=== PATIENT | female | born 1965 | race Caucasian/White ===

== ENCOUNTER → 2017-06-19 12:01 | Outpatient (CLI) | payer OTHER, SELFPAY ==
[2017-06-19 12:05] LABS: Bacteria 0 SEEN /hpf (None Seen); Mucous, Urine 0 SEEN /hpf (<or=2+); White Blood Cells 0 SEEN /hpf (0-5)
[2017-06-19 16:02] LABS: Color, Urine Yellow (Yellow); Glucose, Dipstick Normal (Normal); Ketone-Dipstick Negative (Negative); Leukocyte Esterase-Dipstick Negative /ul (Negative); Nitrite-Dipstick Negative (Negative); Occult Blood-Urine 25 /ul (Negative); Protein-Dipstick Negative (Negative); Specific Gravity, Urine 1.005 (1.002-1.030); Urine Bilirubin Dipstick Negative (Negative); Urine Clarity Sl. Cloudy (Clear); Urine Urobilinogen Normal (Normal)
[2017-06-19 16:20] LABS: Red Blood Cells-Urine 0-5 SEEN /hpf (0-5); Squamous Epithelial Cells - UA 0-5 SEEN /hpf (5-10)
== END ==
PROVIDERS: Family Provider Family Medicine; PCP Family Medicine; Visit Provider Family Medicine
DX: N39.0 Urinary tract infection, site not specified (principal); R30.0 Dysuria
CPT/HCPCS: 81001; 87086

== ENCOUNTER → 2017-08-19 10:38 | Outpatient (CLI) | payer OTHER, SELFPAY ==
--- NOTE | 2017-08-19 10:38 | DT_ITS ---
This patient was seen during an EMR downtime August 17, 2017 - August 24, 2017. This patient may have a combination of paper and electronic documentation or all paper documentation. All documentation is viewable within the e-chart portion of [facility] for each patient visit.
--- NOTE | 2017-08-19 10:38 | DT_ITS ---
This patient was seen during an EMR downtime August 17, 2017 - August 24, 2017. This patient may have a combination of paper and electronic documentation or all paper documentation. All documentation is viewable within the e-chart portion of [facility] for each patient visit.
== END ==
PROVIDERS: Family Provider Family Medicine; PCP Family Medicine; Visit Provider Family Medicine
DX: N39.0 Urinary tract infection, site not specified (principal)
CPT/HCPCS: 87077; 87086; 87088; 87186

== ENCOUNTER → 2017-09-24 12:18 | Outpatient (CLI) | payer OTHER, SELFPAY ==
--- NOTE | 2017-09-24 12:21 | MRI_ITS ---
STUDY: BILATERAL BREAST MR WITHOUT AND WITH CONTRAST REASON FOR EXAM: Female, 52 years old. New diagnosis of lobular breast cancer on the left. TECHNIQUE: Multi-sequence multi-echo imaging of both breasts was performed with a dedicated breast coil. T1-weighted and T2-weighted images were performed before the administration of contrast. T1-weighted images were also performed after the administration of 4.5 mL of Gadavist contrast intravenously without complications. COMPARISON: Left breast ultrasound dated September 08, 2017 and diagnostic mammogram dated September 08, 2017. FINDINGS: RIGHT BREAST: The breast tissue is markedly dense with minimal background enhancement. There are no abnormal enhancing masses or areas of non-mass enhancement in the right breast. LEFT BREAST: The breast tissue is markedly dense with minimal background enhancement. There are postbiopsy changes in the left axilla with a seroma cavity measuring approximately 13 mm in widest diameter. There is metallic artifact from a tissue clip marker in the left axilla (sagittal series 7 images 1-6). There are no abnormal enhancing masses or areas of non-mass enhancement in the left breast. There are no enlarged or abnormal lymph nodes. There is no abnormality in the visualized regions of the chest or liver. MRI/Breast w/o and/or W Cont Bilat IMPRESSION: Postbiopsy changes in the left axilla. No other significant abnormality identified. CATEGORY: BIRADS Category 6: Known Biopsy-Proven Malignancy - Appropriate Action Should Be Taken. A letter regarding these results will be sent to the patient by the facility within 30 days. Electronically Signed: Reece Piña MD at 15:16 EDT , Service support ,
== END ==
PROVIDERS: Family Provider Family Medicine; PCP Family Medicine; Visit Provider Surgery
DX: C50.412 Malignant neoplasm of upper-outer quadrant of left female breast (principal)
CPT/HCPCS: 77059; A9585; A4216; C8908

== ENCOUNTER 2017-10-06 11:00 | Outpatient (RCR) | payer OTHER, SELFPAY ==
--- NOTE | 2017-02-24 12:11 | HP.PTEVAL_ITS ---
Patient's Visit Information CASPER CHRISTENSEN is a 51 year old F referred to Physical Therapy by Sin Raygoza with a diagnosis of MS, ataxia, muscle weakness. Date of Evaluation: 02/24/17 Physical Therapist: Elis Churchill - Visit Plan Frequency: 1x/Week Duration: 6 Months Plan: 1X/ every 2 weeks to work on postural and trunk strength, stretching of the LE's, transfers, gait with HEP - Subjective Subjective: Pt started with a new MS Dr, Dr Sin Raygoza. He wants her to work on strengthening and stretching and gait. She is now receiveing Ocrebus every 6 months and next one is July 10, 2017. The Dr wants her to start Ampyra (it increases peoples walking speeds) and he is hopeful that it will help to strengthenin her hand and core. Her 60 day trial will be delivered this week sometime. She does not walk at home. She is I with all her transfers even when tired. She has hand controls and a lift for her van. She has for her stairs at home. No falls recently. She feels that PT has helped her with her flexability and reduction of spasms in the past and core strength. Sleeps in a normal bed. Pt reports that she is tight in her muscles all the time and makes her feel harder to transfer especially in the morning. - Objective Gait: Walker on height #5. 32 feet with Rolling walker with CGA with outting all oressure through UE's and not even step length with knees bent and took pt 2 :08.25 to stand up to walker, walk 16 feet turn with walker and walk 16 feet back, turn to sit. Unable to raises LE's against gravity. Able to sit with feet supported raising arms overhead X 10 with no true LOB but with some instability with trunk during the motion. Able to sit with feet supported with arms outstretched and clasped together horixontal arms side to side X 8 to each side before had to catch self with hand for balance. Poor trunk extension in sitting with reaching fw with trunk in WC and extending back to upright position X 10 with therapist min A. Transfer from wc to mat table with hands on low mat table in front of her and one hand on WC handle with SBA incase legs give out. Tight HS and gastroc B with her L side being tighter. Pt struggles with rolling in general but especilly to the L. Sitting with feet unsupported and raiseing arms X 10 OH with increase instability and no LOB in havign to use her hand for support with CGA. No dizziness with pursuit, saccades, or VOR X 1 X 30 sec each. Possible problem with convergence. bridges... not able to rise buttocks much at all off the mat if any - Goals Goal 1:: Be able to stand up walk 32 feet ([address]) with a rolling walker in 2 min using a rolling walker with CGA Goal Time Frame: 8-12 Weeks Goal 2:: Be able to complete 2X 10 sitting with arms OH in supported position with feet and unsupoorted spine and 3 X 10 rotation without LOB with CGA Goal Time Frame: 4-6 Weeks Goal 3:: Increase transfers from chair to mat table with increase ease and increased ability to raise buttock up from the chair to the mat Goal Time Frame: 8-12 Weeks Goal 4:: Complaint of stiffness to decrease by 50% subjective - Rehabilitation Potential Rehabilitation Potential: Good - Anticipated Interventions Patient/Client Instruction: Educate patient on: Plan of Care For the Purpose of:: To improve nutrient delivery to tissue, To improve muscle performance and motor function, To improve ability to perform ADL's, To increase tolerance to activity/condition/position, To improve performance and independence with ADL's, To improve ability of physical actions for home/ community/work/leisure, To improve gait and locomotor functions, To improve health of tissue, To decrease soft tissue restriction, To increase flexibility/ ROM, To improve balance, To improve safety with gait Therapeutic Exercise to Include: Strength training, Balance training, Postural training, Flexibilty training, Gait and locomotor training, Neuromotor development, Passive ROM, Dynamic Lumbar Stabilization For the Purpose of:: To improve nutrient delivery to tissue, To improve muscle performance and motor function, To improve ability to perform ADL's, To increase tolerance to activity/condition/position, To improve performance and independence with ADL's, To decrease level of supervision to perform tasks, To improve ability of physical actions for home/community/work/leisure, To improve gait and locomotor functions, To increase flexibility/ROM, To improve balance, To improve safety with gait, To improve safety Manual Therapy Techniques to Include: Passive ROM For the Purpose of:: To improve nutrient delivery to tissue, To improve health of tissue, To decrease soft tissue restriction, To increase flexibility/ROM Thank you for the opportunity to evaluate your patient. For Medicare and Medicare HMO plans, please review the plan of care and approve it. It will need to be FAXED BACK to us at [phone] for Medicare purposes. Please let me know if there are questions or concerns regarding this plan of care. Physician Signature: Date:
--- NOTE | 2017-10-20 11:14 | HP.PTDCSUM ---
HP - PT D/C Summary It has been my pleasure to treat CASPER CHRISTENSEN under orders from Sin Raygoza, for the diagnosis of MS, ataxia, muscle weakness for a total of 17 visit(s). Discharge Date: 10/06/17 Please see the following information for a summary of their discharge status. - Subjective Subjective: Pt should have her masectomy by the end of the week. - Objective Objective/Function: Pt is much weaker today and needed min A to help on and off the mat table. - Goals Goal 1:: Be able to stand up walk 45 feet ([address]) with a rolling walker in 2 min using a rolling walker with CGA Goal Progress: Progressing Goal 2:: Be able to complete 2X 10 sitting with arms OH in supported position with feet and unsupoorted spine and 3 X 10 rotation without LOB with CGA Goal Progress: Goal Met Goal 3:: Increase transfers from chair to mat table with increase ease and increased ability to raise buttock up from the chair to the mat Goal 4:: Complaint of stiffness to decrease by 50% subjective - Plan Plan: DC PT at this time. Pt will get a new order whens he is released to come back to PT - D/C Information Discharge Comments: DC PT If there are questions or concerns regarding this patient's physical therapy, please feel free to call me at [phone]. Thank you for the referral of this patient. Sincerely, Elis Churchill
== END 2017-10-06 19:00 | disposition home or self-care (01) ==
LOC: PT 11:00
PROVIDERS: Family Provider Family Medicine; PCP Family Medicine; Visit Provider Internal Medicine
DX: G35 Multiple sclerosis (principal); R27.0 Ataxia, unspecified; M62.81 Muscle weakness (generalized)
CPT/HCPCS: 97110; 97140; 97162; 97530

== ENCOUNTER 2017-10-12 15:47 | Observation (INO) | payer OTHER, SELFPAY ==
[2017-10-12] VITALS (10 sets, daily range): BP systolic 108–133; BP diastolic 48–80; PULSE 64–84; RESP 14–18; TEMP 36.2–37.2; O2SAT 97–100; BMI 13.9
--- NOTE | 2017-10-12 | AXNB_PTH ---
PATIENT: CASPER CHRISTENSEN LOC: MS3 U#:[id number] AGE/SX: 52/F ROOM: DC325 RE10/12/[address]: Dr. Brandon Hoang MD : 1965 BED: 1 DIS: 10/13/2017 SPEC #: [id number] RECD: 10/12/17 14:09 STATUS: MALA REJamia #: [id number] ANEL: 10/12/17 00:[address]: Brandon Hoang DEPT: SURGICAL PATHOLOGY RECD BY: Rashida Serrano ENTERED: 10/12/17 14:43 SP TYPE: AX NODE BX OTHR DR: Dr. Mario Soliz, DO Tissues: A - Axillary lymph node, NOS B - Left breast, NOS C - Axillary lymph node, NOS Procedures: Frozen Section (charge) Surgery Specimen Level IV Surgery Specimen Level Frozen (no charge) HEADER OPERATION: Left breast mastectomy with sentinel lymph node biopsy PRE-OP DIAGNOSIS: Invasive lobular carcinoma, left breast TISSUE SUBMITTED: A ? Left axillary sentinel lymph node tissue for FS at 1405, B ? Left breast mastectomy tissue, long suture ? lateral, short suture ? superior to lab fresh at 1424, C ? Additional left axillary lymph node tissue FROZEN SECTION DIAGNOSIS A. Left axillary sentinel lymph node tissue, biopsy: One lymph node, positive for metastatic carcinoma. SJ:lior 10/12/17 MICROSCOPIC DIAGNOSIS A. Left axillary sentinel lymph node tissue, biopsy: One lymph node, positive for metastatic carcinoma. See comment. B. Left breast mastectomy: Invasive lobular carcinoma. Lobular carcinoma in situ. Changes consistent with previous biopsy site. Atypical lobular hyperplasia. See cancer summary below. C. Additional left axillary lymph node tissue, biopsy: One lymph node, positive for metastatic carcinoma. See comment. INVASIVE BREAST CANCER SUMMARY: (Including specimen A, B & C) Specimen ? total breast (including nipple and skin). Procedure ? total mastectomy (including nipple and skin). Lymph node sampling ? sentinel lymph node and additional axillary lymph node Specimen integrity ? single intact specimen Specimen laterality - left Tumor site ? outer quadrant Tumor size ? site of largest invasive carcinoma: 1 x 1 x 1 cm Tumor focality ? multiple foci of invasive carcinoma Number of foci ? 3 Size of individual foci ? 1 x 1 x 1 cm (the largest focus) - 0.7 x 0.5 cm - 0.3 x 0.3 cm. See comment. Macroscopic and Microscopic extent of tumor: Skin ? invasive carcinoma does not invade into the dermis or epidermis. Nipple ? ductal carcinoma in situ does not involve nipple epidermis (Paget disease of the nipple). Skeletal muscle ? skeletal muscle is present and is free of carcinoma. Ductal carcinoma in situ (DCIS) ? not present Lobular carcinoma in situ (LCIS) - present Histologic type of invasive carcinoma ? invasive lobular carcinoma Histologic Grade (Bally grade): Glandular/tubular differentiation - score 3 Nuclear pleomorphism - score 2 Mitotic count ? score 1 Overall grade - 2 (score of 6) Margins - Margins uninvolved by invasive carcinoma. The largest focus of tumor is 0.5 cm away from the closest posterior margin. The second smaller focus is 0.5 cm away from the closest inferior margin. Treatment effect: Response to presurgical (neoadjuvant) therapy - no known presurgical therapy. Lymph-Vascular invasion ? not identified Dermal lymph-vascular invasion - not identified Lymph nodes: Number of sentinel lymph nodes examined - 1 Total number of lymph nodes examined (sentinel and nonsentinel) - 2 Number of lymph nodes with macrometastases - 2 Number of lymph nodes with micrometastases and isolated tumor cells - 0 Extranodal extension - not identified Method of evaluation of sentinel lymph nodes - H & E, multiple levels and IHC. Distance metastasis ? not applicable Additional pathologic findings ? fibrocystic changes, adenosis and intraductal hyperplasia without atypia. - Focal atypical lobular hyperplasia. - changes cosistent with previous biopsy site. Ancillary studies - previously performed on section of tumor at [facility] ([id number]). ER ? positive (>95%, strong) VA - positive (99%, strong) Her2 samra ? 1+ (negative) Microcalcifications ? present in non-neoplastic tissue. Clinical history - Please make reference to previous specimen from [facility] ([id number]) left breast, needle core biopsy with diagnosis of invasive lobular carcinoma, nuclear grade 2. PATHOLOGIC STAGE: pT1b(m) pN1a Mx The above summary is in compliance with [employer] (CAP) Cancer Protocols Checklist and [place] Joint Committee on Cancer (AJCC), Staging Manual, 8th Ed. SJ:lior 10/15/17 COMMENT A. The metastatic focus measures 0.5 x 0.5 cm (measured microscopically). Extranodal extension is not seen. B. Extensive fibrosis, chronic inflammation and foreign body giant cell reaction is noted adjacent to the tumor. Immunohistochemistry ([id number]) supports the diagnosis of adenosis in block 7, focus of invasive lobular carcinoma in block 10 and negative fo rmalignancy in block 12. C. The metastatic focus measures 0.4 x 0.4 cm (measured microscopically). Extranodal extension is not seen. MICROSCOPIC DESCRIPTION Slides are reviewed. GROSS DESCRIPTION A - Received fresh for frozen section diagnosis labeled with the patient's name is a specimen designated left axillary sentinel lymph node tissue. The specimen consists of a piece of adipose tissue containing a nodule consistent with lymph node measuring 1.5 x 1 x 0.5 cm. The lymph node is submitted in entirety for frozen section diagnosis. The entire specimen is submitted in two cassettes as follows: 1 ? one lymph node, frozen section, 2 ? rest of the specimen. / SJ:lior 10/12/17 B - Received fresh labeled with the patient's name and designated left breast mastectomy tissue. The specimen consists of a mastectomy specimen consisting of breast tissue with overlying skin ellipse. The breast tissue measures 15 x 8 x 3 cm and the overlying skin ellipse measures 14 x 2.5 cm. The nipple measures 1 cm in greatest dimension. The specimen is oriented as follows, long suture ? lateral, short suture ? superior. The specimen is inked as follows: superior margin ? blue, inferior margin ? green, medial margin ? red, lateral margin ? orange, posterior margin ? black over blue. A focal area of skeletal muscle is noted at the lateral area of the posterior margin of the breast tissue. Focal blue dye discoloration is also noted towards the inferior margin of the breast tissue. More dictation will follow after overnight fixation. / GILMER:lior 10/12/17 Sections reveal an indurated mass in the outer quadrant measuring 1 x 1 x 1 cm. A cystic lesion is also noted adjacent to it measuring 0.7 cm in greatest dimension. The tumor mass is 0.5 cm away from the closest posterior margin. The cystic mass is very close to inferior margin of the specimen. Sections of the rest of the specimen reveal casiano-yellow adipose cut surfaces mixed with casiano-white fibrous area. Technology Adoption Manager sections are submitted in 12 cassettes as follows: 1 ? nipple, entirely submitted, 2?? tumor with closest posterior margin and overlying skin, 3-5 ? rest of the tumor, entirely submitted, 6??cystic lesion with closest inferior margin, entirely submitted, 7 & 8 - employment program representative sections adjacent to the tumor, 9-11 - employment program representative sections away from the tumor, 12 ? perpendicular medial, lateral and superior margins. Sections will be submitted after additional fixation. / GILMER:lior 10/13/17 C - Received in fixative is one container labeled with the patient's name and designated additional left axillary lymph node tissue. The specimen consists of a piece of adipose tissue containing one nodule consistent with lymph node measuring 1 x 0.5 x 0.3 cm. The entire specimen is submitted in one cassette. / GILMER:lior 10/13/17 TC:0 CPT: 03028 x2, 43652, 23674
--- NOTE | 2017-10-12 | IMM_PTH ---
PATIENT: CASPER CHRISTENSEN LOC: MS3 U#:[id number] AGE/SX: 52/F ROOM: MN325 RE10/12/[address]: Dr. Brandon Hoang MD : 1965 BED: 1 DIS: 10/13/2017 SPEC #: [id number] RECD: 10/15/17 12:25 STATUS: MALA REQ #: [id number] ANEL: 10/12/17 00:[address]: Brandon Hoang DEPT: IMMUNOHISTOCHEMISTRY RECD BY: Rashida Serrano ENTERED: 10/15/17 12:26 SP TYPE: IMMUNO OTHR DR: Dr. Mario Soliz, DO Tissues: B - Left breast, NOS Procedures: E-CAD (initial) CALPONIN-1 (add) CK8 (add) E-CAD (add) P40 (add) PHYSICIAN & INSTITUTION [place] [id number] SPECIMEN INFORMATION: Tissue Source: B ? Left breast mastectomy tissue Clinical Info: Invasive lobular carcinoma, left breast Specimen Number: [id number] B7, B10, B12 CPT code: 35917, 60809 x11 METHODOLOGY: Deparaffinized sections of prefer/formalin-fixed tissue or PAP/DQ stained slides are incubated with monoclonal/polyclonal antibodies/oligonucleotide probes. Localization is made via biotin free immunoperoxidase method. Appropriate controls are performed and reacted as expected. Results on target cell population are indicated in the following table: RESULTS: ANTIBODY / CLONE RESULT Block B7 E-Cad (ECH-6) positive CK8 ([id number]) positive P40 (BC28) positive Calponin-1 (HJ246C) positive Block B10 E-Cad (ECH-6) negative CK8 (73qeddP75) positive P40 (BC28) negative Calponin-1 (RS187B) negative Block 12 E-Cad (ECH-6) negative CK8 (26otntA53) negative P40 (BC28) negative Calponin-1 (NB619J) negative These tests were developed and their performance characteristics determined by [facility]. They may not have been cleared or approved by the U.S. Food and Drug Administration. The FDA has determined that such clearance or approval is not necessary. INTERPRETATION: B. Left breast tissue, mastectomy: Invasive lobular carcinoma (block B10). Consistent with adenosis (block B7). Negative for malignancy (block B12). SJ:lior 10/16/17
--- NOTE | 2017-10-12 10:44 | EKG12_ITS ---
Test Reason : PRE-OP Blood Pressure : / mmHG Vent. Rate : 062 BPM Atrial Rate : 062 BPM P-R Int : 136 ms QRS Dur : 078 ms QT Int : 410 ms P-R-T Axes : 057 085 034 degrees QTc Int : 416 ms Normal sinus rhythm Normal ECG Confirmed by STORM MARRERO, GIORGIO ([id number]), editorial manager MIMI DEL ANGEL ([id number]) on 10/16/2017 8:35:40 AM Referred By: Brandon Hoang Confirmed By:GIORGIO INMAN MD
--- NOTE | 2017-10-12 10:51 | NM_ITS ---
PROCEDURE: NUCLEAR MEDICINE Injection Vinton Node - LEFT breast(s). REASON FOR EXAM: Female, 52 years old. Left breast cancer. TECHNIQUE: Vinton node localization using radionuclide methods of the LEFT breast(s) was performed following subcutaneous administration of 1.0 mCi of of sulfur colloid Tc-99m. FINDINGS: 1 mCi of the technetium sulfur colloid was injected in 4 equal aliquots in the periareolar region. NM/Lymph Node Injection Only IMPRESSION: Subjacent injection of 1 mCi of technetium sulfur colloid for sentinel node imaging. Electronically Signed: Dinesh Marie MD at 12:33 EDT Tel [phone], Service support ,
[2017-10-12 11:05] LABS: Hematocrit 42.9 % (37-47); Hemoglobin 14.5 g/dl (12.0-15.0); Mean Corp Hgb Conc 33.8 g/gl (32-36); Mean Corpuscular Hgb 33.6 pg (27.0-32.0); Mean Corpuscular Volume 99.5 fL (81-99); Mean Platelet Vol. 12.9 fl (6.2-12.0); Platelet Count 164 K/mm3 (150-450); RBC Distribution Width CV 12.6 % (11.6-14.6); RBC Distribution Width SD 45.1 fl (35.1-43.9); Red Blood Count 4.31 M/mm3 (4.2-5.4); White Blood Count 3.9 K/mm3 (4.4-11.0)
[2017-10-12 11:09] LABS: Scan Indicated on CBC? Y/N NO
[2017-10-12 11:15] LABS: Anion Gap 3 (5-15); BUN 11 mg/dL (7-18); BUN/Creat Ratio 20.1 RATIO (10-20); Calcium,Total 9.6 mg/dL (8.5-10.1); Chloride 105 mmol/L (98-107); Creatinine, Serum 0.55 mg/dL (0.55-1.02); EST Glomerular Filtration Rate 124 mL/min (>60); Est Glom Filt Rate - Afr Amer 150 mL/min (>60); Glucose 88 mg/dL (74-106); Potassium 3.8 mmol/L (3.5-5.1); Sodium Level 137 mmol/L (136-145)
[2017-10-12] MEDS: Cefazolin 2 GM in 0.9% Normal Saline 100 ML IV (13:15)
[2017-10-12] MEDS: Methylene Blue 1% 100 MG/10 ML VIAL (13:18)
--- NOTE | 2017-10-12 15:56 | OP.PCM_ITS ---
Problem List (1) Breast cancer, left Status: Acute Qualifiers: Breast location: upper outer quadrant of breast Estrogen receptor status: positive Patient sex: female Qualified Code(s): C50.412 - Malignant neoplasm of upper-outer quadrant of left female breast; Z17.0 - Estrogen receptor positive status [ER+] Report of Operation Date of Procedure: 10/12/17 Pre-Operative Diagnosis: Invasive lobular carcinoma of the left breast upper outer quadrant Post-Operative Diagnosis: Same Surgery/Procedure Performed:: 1. Left simple mastectomy. 2. Left sentinel lymph node biopsy with neoprobe localization and blue dye Specimen's removed: 1. Left breast. 2. [place] lymph node. 3. Additional lymph node Drains: SURJIT to bulb suction Estimated Blood Loss (mL): 50 cc Description of Procedure: The patient was brought back to the operating room and general anesthesia was induced. 4 cc of 1% methylene blue were injected underneath the nipple and around the tumor. This was massaged for 5 minutes. The left breast and axilla were prepped and draped in usual sterile fashion. Incisions were marked above and below the nipple in an elliptical fashion. Next incision was made over the proposed incision sites. Hemostasis was again obtained with electrocautery. The lateral portion of the incision was retracted and flaps were made in the axilla was entered. A blue node was encountered and this was dissected free and clipped from its hilum and sent for pathology. A 10 second count revealed that this was radioactive and the bed count was normal. There were no palpable or blue nodes left in the axilla. Next a superior flap was made between the subcutaneous tissue in the breast until the superior aspect of the breast was reached and this was brought to the pectoral fascia. In a similar fashion and inferior flap was created. Next the pectoral fascia was grasped with a [place] in the medial aspect and this was retracted laterally. The pectoral fascia was dissected off of the pectoral muscle and remainder the specimen. Once I reached the lateral aspect where the tumor was located I grasped the tumor and retracted it. I removed the breast along with the underlying muscle in the area where the tumor was located. This was marked with orienting sutures and sent for pathology. At this time the sentinel lymph node came back positive for carcinoma. I discussed the case with the radiation oncologist and due to the posterior margins and the fact the skeletal muscle was found on initial pathology it is recommended that she undergo radiation. Since the tumor was small and she was going to have radiation I elected not to proceed with axillary dissection due to the risk of lymphedema and the fact that she is arm dependent for mobility. The axilla and breast were irrigated and hemostasis was obtained. A 15 [place]an round SURJIT was placed into the breast cavity and brought out through a skin incision in the lower lateral aspect of the left breast. The drain was sutured in place with a 2-0 nylon suture. Next the incision was closed with interrupted 3-0 Vicryl sutures as well as a running 4-0 Monocryl suture. Steri- Strips were applied as was a bandage. The patient tolerated the procedure well. She was brought to PACU in stable condition. - Admit VTE Documentation VTE Mechan Device Prophylaxis: SCD's
[2017-10-12] MEDS: 0.9% Normal Saline 1,000 ML 75 ML IV (17:27)
[2017-10-12] MEDS: Ondansetron 4 MG/2 ML Vial IV (17:49)
[2017-10-12] MEDS: proMETHazine 25 MG/ML Syringe 12.5 MG IV (19:03)
[2017-10-12] MEDS: 0.9% NaCl Peripheral Flush Adult/Peds IV (19:25)
[2017-10-12] MEDS: Baclofen 10 MG Tablet PO (21:27)
[2017-10-12] MEDS: Ibuprofen 600 MG Tablet PO (21:59)
[2017-10-13 02:47] VITALS: BP 109/64; PULSE 68; RESP 16; TEMP 36.5; O2SAT 100
[2017-10-13] MEDS: Baclofen 10 MG Tablet PO ×3 (02:51→10:31)
[2017-10-13] MEDS: Ibuprofen 600 MG Tablet PO (06:21)
[2017-10-13] MEDS: 0.9% Normal Saline 1,000 ML 75 ML IV (06:21)
[2017-10-13 08:47] VITALS: BP 115/70; PULSE 65; RESP 16; TEMP 37.1; O2SAT 100
--- NOTE | 2017-10-13 09:23 | PCM.DC.BS ---
Discharge Diet: No Restrictions Discharge Activity: May Not Drive - for 2-3 days or while taking narcotic pain meds. May shower in (days): 1 Lifting Restrictions: 10 pounds for 1 week. Call your doctor if your incision/area has: Continuous Slow Oozing, Sudden Increased Bleeding, Increased Pain/ Swelling, Increased Redness, Foul Smelling Discharge, Swelling at the incision site Call your doctor if you observe: Fever of 101 or Higher Suture Line Care: Avoid Pulling/Pushing, Avoid Pinching/Bending Remove Dressing in (days):: 1 - Remove bulky dressing tomorrow. May leave any opsite dressing for 3-4 days[address] Keep dressing in place until your follow-up appointment. Additional Dressing/Incision Instructions:: Remove bulky dressing tomorrow. Leave steri strips in place. Record SURJIT drain amount daily. Allergies/Adverse Reactions: Allergies sulfamethoxazole [From Bactrim] Allergy (Severe, Verified 10/09/17 14:49) Nausea trimethoprim [From Bactrim] Allergy (Severe, Verified 10/09/17 14:49) Nausea ciprofloxacin Allergy (Mild, Verified 10/09/17 14:49) unknown Medications to take at Discharge baclofen 10 mg tablet 10 mg PO Q4H 02/28/17 levonorgestrel 20 mcg/24 hr (5 years) intrauterine device 1 insert INTRAUTERINE ONCE 10/05/17 Biotin 100 mg PO TID 10/09/17 Cholecalciferol (Vitamin D3) [Vitamin D3] 10,000 unit PO DAILY 10/09/17 Flavoring Agent [Cinnamon] 15 ml PO DAILY 10/09/17 Robyn Root 1 gm PO DAILY 10/09/17 Turmeric [Turmeric Root] 25 gm PO DAILY 10/09/17 Acetaminophen [Tylenol Tablet] 650 mg PO Q6H PRN PRN tablet 10/13/17 Primary Care Physician: Mario Soliz DO [Primary Care Provider] - Please Follow Up With: Brandon Hoang MD When: Please call to schedule 1 week follow up appointment. [phone]
--- NOTE | 2017-10-13 09:25 | PCM.DC.SUM ---
Discharge Date and Diagnosis Date of Admission: 11/12/17 Date of Discharge: 10/13/17 - Secondary Discharge Diagnosis Chronic Problems (Last Reviewed 10/05/17 @ 15:17 by Helen Flores) Multiple sclerosis (Chronic) Hospital Course and Treatment Imaging Results: Clinical Impression(s) from Imaging Studies [place] Node 10/12/17 10:51 IMPRESSION: Subjacent injection of 1 mCi of technetium sulfur colloid for sentinel node imaging. Electronically Signed: Dinesh Marie MD at 12:33 EDT Tel [phone], Service support , Operations: - - Left mastectomy with sentinel lymph node biopsy Procedures: None Summary of Care Provided: The patient is a 52 year old F with left breast invasive lobular carcinoma. She presented for elective left mastectomy with sentinel lymph node biopsy. She was admitted postoperatively to the floor for observation. The following morning her drain was draining well and her incision was clean dry and intact. She was tolerating a diet and was discharged home in stable condition. She will follow-up with me in 1 week for drain removal. Discharge Diet: No Restrictions Discharge Activity: May Not Drive - for 2-3 days or while taking narcotic pain meds. May shower in (days): 1 Call your doctor if your incision/area has: Continuous Slow Oozing, Sudden Increased Bleeding, Increased Pain/ Swelling, Increased Redness, Foul Smelling Discharge, Swelling at the incision site Call your doctor if you observe: Fever of 101 or Higher Suture Line Care: Avoid Pulling/Pushing, Avoid Pinching/Bending Remove Dressing in (days):: 1 - Remove bulky dressing tomorrow. May leave any opsite dressing for 3-4 days. Keep dressing in place until your follow-up appointment. Additional Dressing/Incision Instructions:: Remove bulky dressing tomorrow. Leave steri strips in place. Record SURJIT drain amount daily. Home Medications: Medications to take at Discharge baclofen 10 mg tablet 10 mg PO Q4H 02/28/17 levonorgestrel 20 mcg/24 hr (5 years) intrauterine device 1 insert INTRAUTERINE ONCE 10/05/17 Biotin 100 mg PO TID 10/09/17 Cholecalciferol (Vitamin D3) [Vitamin D3] 10,000 unit PO DAILY 10/09/17 Flavoring Agent [Cinnamon] 15 ml PO DAILY 10/09/17 Robyn Root 1 gm PO DAILY 10/09/17 Turmeric [Turmeric Root] 25 gm PO DAILY 10/09/17 Acetaminophen [Tylenol Tablet] 650 mg PO Q6H PRN PRN tablet 10/13/17 Primary Care Physician: Mario Soliz DO [Primary Care Provider] - Please Follow Up With: Brandon Hoang MD When: Please call to schedule 1 week follow up appointment. [phone] Medical Necessity - Tobacco Use Smoking Status: Former smoker Tobacco Use: Non-smoker Meaningful Use Info Meaningful Use Diagnoses (Choose all that apply): None applicable
== END 2017-10-13 10:56 | disposition home or self-care (01) ==
LOC: SDC 16:03
PROVIDERS: Anesthesiology; Admitting Provider Surgery; Family Provider Family Medicine; PCP Family Medicine; Visit Provider Surgery
PROC: (CPT 19307; principal; 2017-10-12 12:45)
DX: C50.412 Malignant neoplasm of upper-outer quadrant of left female breast (principal); G35 Multiple sclerosis; Z87.891 Personal history of nicotine dependence; Z79.899 Other long term (current) drug therapy; G25.81 Restless legs syndrome; Z17.0 Estrogen receptor positive status [ER+]; C77.3 Secondary and unspecified malignant neoplasm of axilla and upper limb lymph nodes
CPT/HCPCS: 19303; 38525; 36415; 38792; 80048; 85027; 88305; 88309; 88331; 88341; 88342; 93005; 96361; 96374; 96375; 97802; 99218; A9541; J7030; J7120; A4216; G0378; G0379; J2405; Q9968

== ENCOUNTER → 2017-10-23 15:48 | Outpatient (CLI) | payer OTHER, SELFPAY ==
[2017-10-23 15:51] LABS: Mucous, Urine 0 SEEN /hpf (<or=2+)
[2017-10-23 16:42] LABS: Color, Urine STRAW (Yellow); Glucose, Dipstick NEGATIVE (Normal); Ketone-Dipstick Negative (Negative); Urine Bilirubin Dipstick Negative (Negative); Urine Clarity Cloudy (Clear)
[2017-10-23 16:43] LABS: Leukocyte Esterase-Dipstick 500 /ul (Negative); Nitrite-Dipstick Negative (Negative); Occult Blood-Urine 150 /ul (Negative); Protein-Dipstick 15 mg/dl (Negative); Urine Urobilinogen Normal (Normal)
[2017-10-23 16:45] LABS: Red Blood Cells-Urine > 100 SEEN /hpf (0-5); Squamous Epithelial Cells - UA 0-5 SEEN /hpf (5-10); White Blood Cells >100 SEEN /hpf (0-5)
[2017-10-23 16:46] LABS: Amorphous Sediment 3+; Bacteria 4+ /hpf (None Seen)
== END ==
PROVIDERS: Family Provider Family Medicine; PCP Family Medicine; Visit Provider Physician Assistant Surgical
DX: R30.0 Dysuria (principal)
CPT/HCPCS: 81001; 87077; 87086; 87088; 87186

== ENCOUNTER → 2017-11-17 10:47 | Outpatient (CLI) | payer OTHER, SELFPAY ==
[2017-10-29 14:03] VITALS: BMI 14.7
== END ==
PROVIDERS: Family Provider Family Medicine; PCP Family Medicine; Visit Provider Student in an Organized Health Care Education/Training Program
DX: C50.919 Malignant neoplasm of unspecified site of unspecified female breast (principal)
CPT/HCPCS: 71260; Q9967

== ENCOUNTER 2018-01-21 06:50 | Day surgery (SDC) | payer OTHER, SELFPAY ==
[2017-10-29 14:03] VITALS: BMI 14.7
--- NOTE | 2018-01-21 | OV_PTH ---
PATIENT: CASPER CHRISTENSEN LOC: [facility] [place] [facility] [place][id number] AGE/SX: 52/F ROOM: RE01/21/[address]: Dr. Cheri Mitchell MD : 1965 BED: DIS: 01/21/2018 SPEC #: [id number] RECD: 01/21/18 11:51 STATUS: MALA YEJamia #: [id number] ANEL: 01/21/18 00:[address]: Cheri Mitchell DEPT: SURGICAL PATHOLOGY RECD BY: Pastor Robins ENTERED: 01/21/18 11:51 SP TYPE: OVARY OTHR DR: Dr. Mario Soliz, DO Tissues: Ovary, NOS Procedures: Surgery Specimen Level IV HEADER OPERATION: Hysteroscopy, IUD removal, bilateral laparoscopic salpingo-oophorectomy PRE-OP DIAGNOSIS: CA breast, retained IUD TISSUE SUBMITTED: Bilateral fallopian tubes and ovaries MICROSCOPIC DIAGNOSIS Right and left fallopian tubes and ovaries, salpingo-oophorectomy: Right and left fallopian tubes - no pathologic change. Right and left ovaries - corpora albicantia and benign epithelial cysts. AM:lior 01/22/18 MICROSCOPIC DESCRIPTION Slides are reviewed. GROSS DESCRIPTION Received in fixative is one container labeled with the patient's name and designated bilateral tubes and ovaries. The specimen consists of bilateral fallopian tubes and ovaries. The fallopian tubes and ovaries are not identified as right or left. One of the fallopian tubes measure 5.5 cm in length and 0.5 cm in diameter. The fimbrial end is identified. No tubo-ovarian adhesions are noted. The adjacent ovary measures 3 x 2 x 0.5 cm. Sections reveal unremarkable cut surfaces. The second fallopian tube is similar appearance to first one and measures 5.5 cm in length and 0.5 cm in diameter. The adjacent ovary measures 3 x 1 x 0.5 cm. Sections reveal unremarkable cut surfaces. Furniture Sales Associate sections are submitted in six cassettes as follows: 1-3 - first ovary and fallopian tube (1 - fallopian tube, 2 & 3 - adjacent ovary, entirely submitted), 4-6 - second ovary and fallopian tube (4 - fallopian tube, 5 & 6 - second ovary, entirely submitted). / GILMER:lior 01/21/18 TC:5 CPT: 29191 x2
[2018-01-21 07:20] VITALS: BP 105/58; PULSE 62; RESP 16; TEMP 37.2; O2SAT 100; BMI 15.0
[2018-01-21] MEDS: Bupivacaine Mpf 0.5% 30 ML VIAL (08:50)
--- NOTE | 2018-01-21 09:33 | PCM.OPRPT ---
Report of Operation Date of Procedure: 01/21/18 Pre-Operative Diagnosis: lobular carcinoma of the left breast, malfunction of IUD Post-Operative Diagnosis: same Surgery/Procedure Performed:: Laparoscopic bilateral salpingo-oophorectomy and removal of Mirena IUD clothing man: Miguel Barnes MS3 Type of Anesthesia:: General Anesthesiologist: Tami Scott Special Medications: none Specimen's removed: bilateral tubes and mirena IUD Drains: none Estimated Blood Loss (mL): 10cc Fluids Replaced: 1000 cc LR Description of Procedure: The patient was taken to the operating room where she was prepped and draped in the dorsolithotomy position. A weighted speculum was placed in the vagina and the anterior lip of the cervix was grasped with a tenaculum. An attempt was made to remove the Mirena IUD after some gentle dilation of the cervix. However, I perforated with the polyp forceps and the decision was made to proceed with the laparoscopy and then remove the IUD with the hysteroscope. The Willow uterine manipulator was placed and the remainder of the instruments were removed from the vagina. Attention was turned to the abdomen. All port sites were infiltrated with 0.5% Marcaine before skin incisions were made. A 5 mm intraumbilical incision was made. The anterior abdominal wall was tented up with 2 towel clamps while a 5 mm blade less trocar and sleeve were directly inserted. Intraperitoneal placement was confirmed with the laparoscope. The pneumoperitoneum was created and the underlying abdominal contents were intact. The patient was placed in Trendelenburg. 5mm right and left lower quadrant ports were placed under direct visualization lateral to the inferior epigastric vessels. The bowel was swept away and the above findings were noted. The right infundibulopelvic ligament was clamped, sealed and transected with the LigaSure device. The antimesenteric portions of the tube were clamped, sealed and transected. The utero-ovarian ligaments were clamped sealed and transected with the LigaSure device . The same procedure was performed on the contralateral side. The umbilical port site was enlarged with a scalpel and the fascia was stretched with a Franchesca clamp. The Endo Catch bag was placed through the umbilical incision, the specimens were placed in the bag and removed through the umbilical incision. The pedicles were again examined and found to be hemostatic. The fascia of the umbilical incision was closed with 0 Vicryl [id number] suture. The skin incision was closed with 3-0 Monocryl. The lateral ports were removed under direct visualization and no active bleeding was noted. The pneumoperitoneum was released. The skin incisions were closed with Monocryl suture in a subcuticular fashion and skin glue. The Willow uterine manipulator was removed. A speculum was placed back in the vagina and the cervix was grasped with a tenaculum. The 5mm hysteroscope was placed into the uterine cavity and the above findings were noted. Bilateral tubal ostia were identified. The hysteroscopic grasper we Nhan used to grasp the IUD strings under direct visualization and the IUD was removed without difficulty. The instruments were removed from the vagina. All sponge and needle counts were correct. Vaginal sweep was performed by me. The patient was awakened and taken to the recovery room in stable condition. Hysteroscopic ins: 400cc normal saline Hysteroscopic outs:100cc Findings: Endometrial cavity: Normal, no fibroids or polyps noted, IUD was in proper placement in the endometrial cavity but the strings were in entirely pulled up around the IUD Cervix: Normal Vagina: Normal Grafts/Implants Used: none - Complications none
--- NOTE | 2018-01-21 09:41 | OP.PCM_ITS ---
Report of Operation Date of Procedure: 01/21/18 Pre-Operative Diagnosis: lobular carcinoma of the left breast, malfunction of IUD Post-Operative Diagnosis: same Surgery/Procedure Performed:: Laparoscopic bilateral salpingo-oophorectomy and removal of Mirena IUD sterile products processor: Miguel Barnes MS3 Type of Anesthesia:: General Anesthesiologist: Tami Scott Special Medications: none Specimen's removed: bilateral tubes and mirena IUD Drains: none Estimated Blood Loss (mL): 10cc Fluids Replaced: 1000 cc LR Description of Procedure: The patient was taken to the operating room where she was prepped and draped in the dorsolithotomy position. A weighted speculum was placed in the vagina and the anterior lip of the cervix was grasped with a tenaculum. An attempt was made to remove the Mirena IUD after some gentle dilation of the cervix. Caroline grant I perforated with the polyp forceps and the decision was made to proceed with the laparoscopy and then remove the IUD with the hysteroscope. The Willow uterine manipulator was placed and the remainder of the instruments were removed from the vagina. Attention was turned to the abdomen. All port sites were infiltrated with 0.5% Marcaine before skin incisions were made. A 5 mm intraumbilical incision was made. The anterior abdominal wall was tented up with 2 towel clamps while a 5 mm blade less trocar and sleeve were directly inserted. Intraperitoneal placement was confirmed with the laparoscope. The pneumoperitoneum was created and the underlying abdominal contents were intact. The patient was placed in Trendelenburg. 5mm right and left lower quadrant ports were placed under direct visualization lateral to the inferior epigastric vessels. The bowel was swept away and the above findings were noted. The right infundibulopelvic ligament was clamped, sealed and transected with the LigaSure device. The antimesenteric portions of the tube were clamped, sealed and transected. The utero-ovarian ligaments were clamped sealed and transected with the LigaSure device . The same procedure was performed on the contralateral side. The umbilical port site was enlarged with a scalpel and the fascia was stretched with a Franchesca clamp. The Endo Catch bag was placed through the umbilical incision, the specimens were placed in the bag and removed through the umbilical incision. The pedicles were again examined and found to be hemostatic. The fascia of the umbilical incision was closed with 0 Vicryl [id number]-[id number] suture. The skin incision was closed with 3-0 Monocryl. The lateral ports were removed under direct visualization and no active bleeding was noted. The pne umoperitoneum was released. The skin incisions were closed with Monocryl suture in a subcuticular fashion and skin glue. The Willow uterine manipulator was removed. A speculum was placed back in the vagina and the cervix was grasped with a tenaculum. The 5mm hysteroscope was placed into the uterine cavity and the above findings were noted. Bilateral tubal ostia were identified. The hysteroscopic grasper we Nhan used to grasp the IUD strings under direct visualization and the IUD was removed without difficulty. The instruments were removed from the vagina. All sponge and needle counts were correct. Vaginal sweep was performed by me. The patient was awakened and taken to the recovery room in stable condition. Hysteroscopic ins: 400cc normal saline Hysteroscopic outs:100cc Findings: Endometrial cavity: Normal, no fibroids or polyps noted, IUD was in proper placement in the endometrial cavity but the strings were in entirely pulled up around the IUD Cervix: Normal Vagina: Normal Grafts/Implants Used: none - Complications none
[2018-01-21 09:46] VITALS: BP 105/58; BP 115/55; PULSE 73; RESP 16; TEMP 36.6; O2SAT 100
[2018-01-21 10:00] VITALS: BP 103/42; BP 105/58; PULSE 66; RESP 16; TEMP 36.3; O2SAT 100
--- NOTE | 2018-01-21 10:14 | DCINST_ITS ---
Discharge Diet: No Restrictions - Increase fluid intake for the next 48 hours. Discharge Activity: Return to Normal Activity, May Drive - when you are no longer taking pain/narcotic meds., May Shower, May Take a Tub Bath - in 7 days Additional Activity Instructions:: Ambulate often the next week after surgery. Nothing in the vagina for 5 days. Call your doctor if your incision/area has: Continuous Slow Oozing, Sudden Increased Bleeding, Increased Pain/ Swelling, Increased Redness, Foul Smelling Discharge Call your doctor if you observe: Fever of 101 or Higher Allergies/Adverse Reactions: Allergies ciprofloxacin Allergy (Mild, Verified 01/14/18 13:16) unknown sulfamethoxazole [From Bactrim] Adverse Reaction (Severe, Verified 01/21/18 08:49) Nausea trimethoprim [From Bactrim] Adverse Reaction (Severe, Verified 01/21/18 08:49) Nausea Medications to take at Discharge baclofen 10 mg tablet 10 mg PO Q4H 02/28/17 levonorgestrel 20 mcg/24 hr (5 years) intrauterine device 1 insert INTRAUTERINE ONCE 10/05/17 Biotin 100 mg PO TID 10/09/17 Cholecalciferol (Vitamin D3) [Vitamin D3] 10,000 unit PO DAILY 10/09/17 Flavoring Agent [Cinnamon] 15 ml PO DAILY 10/09/17 Robyn Root 1 gm PO DAILY 10/09/17 Turmeric [Turmeric Root] 25 gm PO DAILY 10/09/17 Acetaminophen [Tylenol Tablet] 650 mg PO Q6H PRN PRN tab 10/13/17 Tamoxifen [Nolvadex] 20 mg PO DAILY 01/14/18 Primary Care Physician: Mario Soliz DO [Primary Care Provider] - Test Results: Test results from this visit will be discussed in further detail at your follow- up appointment, if applicable. Please Follow Up With: Cheri Mitchell MD - [phone] When: 1-2 weeks or as needed
[2018-01-21 10:32] VITALS: BP 105/58
== END 2018-01-21 10:51 | disposition home or self-care (01) ==
LOC: SDC 06:51 → AC 06:52
PROVIDERS: Family Provider Family Medicine; PCP Family Medicine; Referring Provider Obstetrics & Gynecology; Visit Provider Obstetrics & Gynecology
PROC: (CPT 58301; principal; 2018-01-21 08:10)
DX: C50.912 Malignant neoplasm of unspecified site of left female breast (principal); T83.89XA Other specified complication of genitourinary prosthetic devices, implants and grafts, initial encounter; Y76.8 Miscellaneous obstetric and gynecological devices associated with adverse incidents, not elsewhere classified; N83.292 Other ovarian cyst, left side; N83.291 Other ovarian cyst, right side; Z79.899 Other long term (current) drug therapy; Z87.891 Personal history of nicotine dependence; G25.81 Restless legs syndrome; G35 Multiple sclerosis
CPT/HCPCS: 58301; 58661; 88302; 88305; J7120; J2405

== ENCOUNTER 2018-07-14 11:00 | Outpatient (RCR) | payer OTHER, SELFPAY ==
[2017-10-29 14:03] VITALS: BMI 14.7
--- NOTE | 2017-12-01 14:10 | HP.PTEVAL_ITS ---
Patient's Visit Information CASPER CHRISTENSEN is a 52 year old F referred to Physical Therapy by Sin Raygoza with a diagnosis of MS and muscle weakness, Ataxia. Date of Evaluation: 12/01/17 Physical Therapist: Elis Churchill - Visit Plan Frequency: 1-2x /Week Duration: 2-4 Months Plan: 1-2X/ week for 16 weeks for progressive transfer training, gait training, strengthening, sitting balance, standing balance, core stability, stretching and ROM, with HEP - Subjective Subjective: Had L Masectomy October 12, 2017 and she did well that surgery and went home after. They discocered that it was in lymph nodes and started radiation on November 26, 2017. She reports that she is very weak. Having trouble doing everything right now and almost could not make it here cause she could not pull her pants up. She was told that radiation made her weaker. She is going to have radiation 5X/ week for 30 days. She has radiation at 10:20 everyday. She does have aching in her legs. She has not walked at all since she was discharged mid -September. Getting in and out of bed, it depends on whether she needs help or not. She having trounle getting to bathroom and has to stand X 10 times to get pants up. She needs her appointments to be early because she fatigues quick by afternoon. - Objective Sitting unsupported for 5 seconds and needed UE support. supine to sit with Max A. Sit to stand with rolling walker with Mod A. Pt refused to walk as she said that her leg was locked and if she moved it she would go down. Able to roll B [place]. Transfer from chair to mat table and reverse with min A. LE MMT: hip flex 2-/5 B, Knee ext 2-/5 B, knee flex 2-/5, bridges (can't even get her hips off the mat table). Tight B gastroc, HS, hip flexors - Goals Goal 1:: I HEP Goal Time Frame: 12-16 Weeks Goal 2:: Be able to sit to stand X 3 with SBA with rolling walker Goal Time Frame: 12-16 Weeks Goal 3:: Be able to walk 25 feet with rolling walker with CGA Goal Time Frame: 12-16 Weeks Goal 4:: Be able to bridge 2 X 10 and get hips off the mat table Goal Time Frame: 12-16 Weeks Goal 5:: Be able to sit unsupported X 2 min while doing light UE dynamic movement Goal Time Frame: 12-16 Weeks - Rehabilitation Potential Rehabilitation Potential: Fair - Anticipated Interventions Thank you for the opportunity to evaluate your patient. For Medicare and Medicare HMO plans, please review the plan of care and approve it. It will need to be FAXED BACK to us at [phone] for Medicare purposes. Please let me know if there are questions or concerns regarding this plan of care. Physician Signature: Date:
--- NOTE | 2018-05-18 11:38 | HP.PTREVAL_ITS ---
Sin Raygoza, It has been my pleasure to treat CASPER CHRISTENSEN over the last 9 visits for MS and muscle weakness, Ataxia. Please see the progress note below for an update on the physical therapy plan of care! Subjective: Pt reports that she is feeling the same old thing. As far as MS she feels that she is the same as she was in February. She is going to start a new MS treatment on May 25 and has been shown to stop the progression and patients notice less fatigue. It is a 1 hour infusion once a month. That will be done up in [place]. Pt has not been up walking since last August. As of now, pt is cancer free. Pt tries to stand everyday pulling pants up etc. Pt complains that her R leg and foot are turning inward. Objective/Function: Reassessment: Sit to stand: uses UE to pull self to stand at // bars. Could stand 30 sec X 2 wtih some side to side weight shifting. Most of weight was on the L side and pt could not straighten the R knee. Extremely tight hip flexors B.... pt can not lay down with legs hanging over the side of the mat. Plan Plan: 1X/ week for 16 weeks for progressive transfer training, gait training, strengthening, sitting balance, standing balance, core stability, stretching and ROM, with HEP Goals Goal 1:: I HEP Goal Time Frame: 12-16 Weeks Goal 2:: Be able to sit to stand X 3 with SBA with rolling walker Goal Time Frame: 12-16 Weeks Goal 3:: Be able to walk 25 feet with rolling walker with CGA Goal Time Frame: 12-16 Weeks Goal 4:: Be able to bridge 2 X 10 and get hips off the mat table Goal Time Frame: 12-16 Weeks Goal 5:: Be able to sit unsupported X 2 min while doing light UE dynamic movement Goal Time Frame: 12-16 Weeks Anticipated Interventions Please do not hesitate to contact me at [phone] by phone or if you have questions or concerns regarding this new plan of care! Sincerely, Elis Churchill, VIRGIE
== END 2018-07-14 19:00 | disposition home or self-care (01) ==
LOC: PT 11:00
PROVIDERS: Family Provider Family Medicine; PCP Family Medicine; Visit Provider Internal Medicine
DX: G35 Multiple sclerosis (principal); R27.0 Ataxia, unspecified
CPT/HCPCS: 97110; 97140; 97162; 97530

== ENCOUNTER → 2018-08-27 | Outpatient (CLI) | payer OTHER, SELFPAY ==
[2018-02-01 11:47] VITALS: BMI 15.0
== END | disposition home or self-care (01) ==
LOC: LABSPEC 15:56
PROVIDERS: Family Provider Family Medicine; PCP Family Medicine; Referring Provider Family Medicine; Visit Provider Family Medicine
DX: N39.0 Urinary tract infection, site not specified (principal)

== ENCOUNTER → 2018-10-14 | Outpatient (CLI) | payer OTHER, SELFPAY ==
[2018-02-01 11:47] VITALS: BMI 15.0
[2018-09-27 11:27] VITALS: BMI 15.0
--- NOTE | 2018-10-14 12:36 | MRI_ITS ---
STUDY: BILATERAL BREAST MR WITHOUT AND WITH CONTRAST REASON FOR EXAM: Female, 53 years old. History of left breast cancer. She's had a mastectomy. TECHNIQUE: Multi-sequence multi-echo imaging of both breasts was performed with a dedicated breast coil. T1-weighted and T2-weighted images were performed before the administration of contrast. T1-weighted images were also performed after the administration of 9 IV Dotarem without complications. COMPARISON: Breast MRI dated 09/24/2017 FINDINGS: RIGHT BREAST: The breast tissue is markedly dense with minimal background enhancement. There are no abnormal enhancing masses or areas of non-mass enhancement in the right breast. LEFT BREAST: The patient has had a left mastectomy. There are no abnormal enhancing masses or areas of non-mass enhancement in the left breast post mastectomy site to suggest new or recurrent malignancy. There are no enlarged or abnormal lymph nodes. There is no abnormality in the visualized regions of the chest or liver. MRI/Breast Bilateral W/O and W IMPRESSION: Unremarkable breast MR examination with contrast. The patient has had a left mastectomy. MRI does not replace mammography. Mammography is the gold standard for screening of breast cancer. Mammogram is recommended. CATEGORY: BIRADS Category 0: Incomplete. Need additional imaging evaluation. A letter regarding these results will be sent to the patient by the facility within 30 days. Electronically Signed: Jacqueline Taylor DO at 5:42 EDT Tel , Service support ,
== END | disposition home or self-care (01) ==
LOC: MRI 12:36
PROVIDERS: Family Provider Family Medicine; PCP Family Medicine; Referring Provider Surgery; Visit Provider Surgery
DX: C50.912 Malignant neoplasm of unspecified site of left female breast (principal); N65.1 Disproportion of reconstructed breast; Z90.13 Acquired absence of bilateral breasts and nipples
CPT/HCPCS: 77049; A9575; A4216; C8908

== ENCOUNTER → 2018-10-20 | Outpatient (CLI) | payer OTHER, SELFPAY ==
[2018-02-01 11:47] VITALS: BMI 15.0
[2018-09-27 11:27] VITALS: BMI 15.0
== END | disposition home or self-care (01) ==
LOC: BFHLAB 08:00
PROVIDERS: Family Provider Family Medicine; PCP Family Medicine; Visit Provider Family Medicine
DX: N39.0 Urinary tract infection, site not specified (principal)
CPT/HCPCS: 87086

== ENCOUNTER 2019-01-26 11:30 | Outpatient (RCR) | payer OTHER, SELFPAY ==
[2018-02-01 11:47] VITALS: BMI 15.0
== END 2019-01-26 19:00 | disposition home or self-care (01) ==
LOC: PT 11:30
PROVIDERS: Family Provider Family Medicine; PCP Family Medicine; Referring Provider Internal Medicine; Visit Provider Internal Medicine
DX: G35 Multiple sclerosis (principal); R27.0 Ataxia, unspecified
CPT/HCPCS: 97110; 97140; 97530

== ENCOUNTER → 2019-02-17 15:47 | Outpatient (CLI) | payer OTHER, SELFPAY ==
[2018-02-01 11:47] VITALS: BMI 15.0
[2018-10-21 13:00] VITALS: BMI 15.0
--- NOTE | 2019-02-17 16:15 | RAD_ITS ---
STUDY: X-RAY - RIGHT FOOT CLINICAL: Female, 53 years old. Pain. TECHNIQUE: 3 view(s) of the foot. COMPARISON: None. FINDINGS: There is demineralization of the rear and midfoot bones. Normal visualized subtalar, talonavicular, calcaneocuboid, tarsal and tarsometatarsal articulations. There is demineralization of the metatarsi. Normal metatarsophalangeal joint of the great toe. Normal tibial and fibular sesamoid bones. Normal interphalangeal joint of the great toe. Normal phalanges of the great toe. Normal second through fifth metatarsophalangeal joints. Normal interphalangeal joints and phalanges of the lesser toes. The soft tissue structures are unremarkable. RAD/Foot min 3 Views IMPRESSION: Diffuse demineralization throughout the osseous structures with no evidence of focal osseous injury. Electronically Signed: Espinoza Benedict DO at 21:57 EST , Service support ,
[2019-02-17 17:05] LABS: Absolute Lymphocyte Count 1.53 X10^3/uL (0.83-4.51); Absolute Neutrophil Count 2.8 X10^3/uL (2.0-7.7); Basophil# 0.04 X10^3/uL; Basophil% 0.8 % (0-1); Eosinophil# 0.26 X10^3/uL; Eosinophils% 5.1 % (0-5); Hematocrit 39.3 % (37-47); Hemoglobin 13.4 g/dL (12.0-15.0); Lymphocyte # 1.53 X10^3/ul (4.0); Lymphocyte % 30.1 % (19-41); Mean Corp Hgb Conc 34.1 g/dL (32-36); Mean Corpuscular Hgb 34.9 pg (27.0-32.0); Mean Corpuscular Volume 102.3 fL (81-99); Mean Platelet Vol. 12.5 fl (6.2-12.0); Monocyte# 0.47 X10^3/uL; Monocyte% 9.3 % (0-10); NRBC Flagged by Analyzer 0.8 % (0-5); Neutrophil # 2.76 X10^3/uL (2.7-7.7); Neutrophil % 54.3 % (47-70); Platelet Count 217 K/mm3 (150-450); RBC Distribution Width CV 13.7 % (11.6-14.6); RBC Distribution Width SD 52.1 fl (35.1-43.9); Red Blood Count 3.84 M/mm3 (4.2-5.4); White Blood Count 5.1 K/mm3 (4.4-11.0)
[2019-02-17 17:48] LABS: ALB/GLOB Ratio 1.2 RATIO (0.9-2.4); AST(SGOT) 18 U/L (15-37); Alanine Aminotransfer ALT/SGPT 25 U/L (13-56); Alkaline Phosphatase 60 U/L (45-117); Anion Gap 4 (5-15); BUN 9 mg/dL (7-18); BUN/Creat Ratio 15.4 RATIO (10-20); Calcium,Total 9.2 mg/dL (8.5-10.1); Chloride 105 mmol/L (98-107); Creatinine, Serum 0.58 mg/dL (0.55-1.02); EST Glomerular Filtration Rate 114 mL/min (>60); Est Glom Filt Rate - Afr Amer 138 mL/min (>60); Globulin 3.2 g/dL (2.2-4.2); Glucose 115 mg/dL (74-106); Potassium 3.9 mmol/L (3.5-5.1); Protein, Total 7.2 g/dL (6.4-8.2); Sodium Level 139 mmol/L (136-145); Thyroid Stim Hormone (TSH) 1.38 uIU/mL (0.358-3.74)
== END ==
PROVIDERS: Family Provider Family Medicine; PCP Family Medicine; Referring Provider Family Medicine; Visit Provider Family Medicine
DX: R60.0 Localized edema (principal); S90.32XA Contusion of left foot, initial encounter; R31.9 Hematuria, unspecified
CPT/HCPCS: 36415; 73630; 80053; 84439; 84443; 85025

== ENCOUNTER → 2019-02-22 11:34 | Outpatient (CLI) | payer OTHER, SELFPAY ==
[2018-02-01 11:47] VITALS: BMI 15.0
[2018-10-21 13:00] VITALS: BMI 15.0
--- NOTE | 2019-02-22 11:43 | VDLE_ITS ---
Reason For Study: Edema RIGHT LEFT GSV is normal. GSV is normal. CFV is compressible, spontaneous, phasic, CFV is compressible, spontaneous, phasic, competent and demonstrates normal competent, and demonstrates normal augmentation. augmentation. FV is compressible, spontaneous, phasic, FV is compressible, spontaneous, phasic, competent and demonstrates normal competent and demonstrates normal augmentation. augmentation. POP V is compressible, spontaneous, phasic, POP V is compressible, spontaneous, phasic, competent and demonstrates normal competent and demonstrates normal augmentation. augmentation. T/P Trunk is compressible. T/P Trunk is compressible. PTV is compressible. PTV is compressible. RT PerV is compressible. LT PerV is compressible. Procedure Exam performed in department. Bilateral peroneal veins not well visualized do to pt positioning. A preliminary report was called and/or faxed to [facility]. Interpretation Summary Deep veins of the lower extremities are bilaterally patent and compressible segmentally. There is no evidence of deep vein thrombosis on either side. Valvular competence appears intact within the proximal deep venous systems bilaterally. The great saphenous veins appear bilaterally patent and compressible segmentally. Peroneal veins were not well visualized bilaterally. Ordering Physician: Khari Busby Referring Physician: Mario Soliz Performed By: Ankita Willis RVT
== END ==
PROVIDERS: Family Provider Family Medicine; PCP Family Medicine; Referring Provider Student in an Organized Health Care Education/Training Program; Visit Provider Student in an Organized Health Care Education/Training Program
DX: R60.0 Localized edema (principal)
CPT/HCPCS: 93970

== ENCOUNTER 2019-03-14 14:00 | Outpatient (RCR) | payer OTHER, SELFPAY ==
[2018-02-01 11:47] VITALS: BMI 15.0
[2018-10-21 13:00] VITALS: BMI 15.0
--- NOTE | 2019-03-14 14:35 | HP.PTDCSUM ---
HP - PT D/C Summary It has been my pleasure to treat CASPER CHRISTENSEN under orders from Mario Soliz DO, for the diagnosis of MS and muscle weakness, Ataxia for a total of 36 visit(s). Discharge Date: 03/14/19 Please see the following information for a summary of their discharge status. - Subjective Subjective: Pt reports that she goes back to Dr on Mar 23. - Overall Improvement % Improvement: 0 - Objective Objective/Function: R leg has a lot of tone today - Goals Goal 1:: I HEP Goal Progress: Goal Met Goal 2:: Be able to sit to stand X 3 with SBA with rolling walker Goal Progress: Goal Met Goal 3:: Be able to walk 25 feet with rolling walker with CGA Goal Progress: Progressing Goal 4:: Be able to bridge 2 X 10 and get hips off the mat table Goal Progress: Progressing Goal 5:: Be able to sit unsupported X 2 min while doing light UE dynamic movement Goal Progress: Progressing - Plan Plan: DC PT - D/C Information Discharge Comments: DC PT If there are questions or concerns regarding this patient's physical therapy, please feel free to call me at [phone]. Thank you for the referral of this patient. Sincerely, Elis Churchill, MPT
== END 2019-03-14 19:00 | disposition home or self-care (01) ==
LOC: PT 14:00
PROVIDERS: Family Provider Family Medicine; PCP Family Medicine
DX: G35 Multiple sclerosis (principal); R27.0 Ataxia, unspecified
CPT/HCPCS: 97110

== ENCOUNTER → 2019-09-06 | Outpatient (CLI) | payer OTHER, SELFPAY ==
[2018-02-01 11:47] VITALS: BMI 15.0
[2019-09-06 13:50] VITALS: BMI 15.0
[2019-09-06 15:25] LABS: Bacteria 0 SEEN /hpf (None Seen); Red Blood Cells-Urine 0 SEEN /hpf (0-5); White Blood Cells 0 SEEN /hpf (0-5)
[2019-09-06 15:42] LABS: Color, Urine Yellow (Yellow); Glucose, Dipstick Normal (Normal); Ketone-Dipstick 50 mg/dl (Negative); Leukocyte Esterase-Dipstick Negative /ul (Negative); Nitrite-Dipstick Negative (Negative); Occult Blood-Urine Negative /ul (Negative); Protein-Dipstick Negative (Negative); Urine Bilirubin Dipstick Negative (Negative); Urine Clarity Sl. Cloudy (Clear); Urine Urobilinogen Normal (Normal)
[2019-09-06 16:05] LABS: Squamous Epithelial Cells - UA 0-5 SEEN /hpf (5-10)
[2019-09-06 16:06] LABS: Mucous, Urine 1+ /hpf (<or=2+)
== END | disposition home or self-care (01) ==
LOC: LABSPEC 14:55
PROVIDERS: PCP Family Medicine; Referring Provider Physician Assistant Surgical; Visit Provider Physician Assistant Surgical
DX: N30.01 Acute cystitis with hematuria (principal)
CPT/HCPCS: 81001; 87086; 87088

== ENCOUNTER 2019-09-14 11:00 | Outpatient (RCR) | payer OTHER, SELFPAY ==
[2018-02-01 11:47] VITALS: BMI 15.0
[2018-10-21 13:00] VITALS: BMI 15.0
--- NOTE | 2019-04-27 12:48 | HP.PTEVAL ---
Patient's Visit Information CASPER CHRISTENSEN is a 53 year old F referred to Physical Therapy by Sin Raygoza with a diagnosis of MS. Date of Evaluation: 04/13/19 Physical Therapist: VIRGIE Del Toro - Visit Plan Frequency: 1x/Week Duration: 3 Months Plan: 1X every other week for 12 weeks for transfer training, gait training, LE stretching, LE strengthening (especially hip abd, hip ext, knee ext), standing mechanics, standing balance with HEP - Subjective Findings: Pt reports that her Dr appointment was cancelled and she goes next week but the Dr wanted her to start PT. Pt is having trouble standin up to pull her pants up. She can stand up but can not let go to pull her pants up. She was on Tamoxifam but it can cause ankle swelling which she is c/o but her swelling has not changed since she has been off the med for 20 days. She will discuss with Neurologist. SHe is doing ok with car transfers. She drives her motorized wc into the van and transfers to the drivers seat. - Objective Gait: will lassess soon when ptbring in AFO. UE MMT: flex 4-/5 B, abd 4-/5 B, ER 3+/5 B, IR 3+/5 B, SHoulder ext 3+/5, Bicep 3+/5. LE MMT: R hip flex 2-/5, L hip flex 3-/4, R knee ext unable to initiatethe motion in sitting, L knee ext 1/4 normal ROM, Trace B knee flex, trace ankle movemnt. Pt is tight in B HS, Gastroc and hip flexors. Pt is able to bridge but barely ifts her buttocks off the mat table. - Goals Goal 1:: I HEP Goal Time Frame: 8-12 Weeks Goal 2:: Be able to stand up and support herself enough to be ablet pankaj pull pants up with ease Goal Time Frame: 8-12 Weeks Goal 3:: Increase LE strength to be ableto sit in wc and not have her R leg adduct so much Goal Time Frame: 8-12 Weeks Goal 4:: Be able to walk 25 feet with AFO on and rolling walker with min A Goal Time Frame: 8-12 Weeks - Rehabilitation Potential Rehabilitation Potential: Fair - Anticipated Interventions Patient/Client Instruction: Educate patient on: Condition, Plan of Care For the Purpose of:: To increase ROM, To improve nutrient delivery to tissue, To improve muscle performance and motor function, To improve ability to perform ADL's, To increase tolerance to activity/condition/position, To improve performance and independence with ADL's, To decrease level of supervision to perform tasks, To improve ability of physical actions for home/community/work/leisure, To improve gait and locomotor functions, To increase flexibility/ROM, To improve balance, To improve safety with gait Therapeutic Exercise to Include: Strength training, Balance training, Flexibilty training, Gait and locomotor training, Active ROM, Dynamic Lumbar Stabilization For the Purpose of:: To improve nutrient delivery to tissue, To improve muscle performance and motor function, To improve ability to perform ADL's, To increase tolerance to activity/condition/position, To improve performance and independence with ADL's, To decrease level of supervision to perform tasks, To improve ability of physical actions for home/community/work/leisure, To improve gait and locomotor functions, To improve health of tissue, To decrease soft tissue restriction, To increase flexibility/ROM, To improve balance, To improve safety with gait Functional Training to Include: Gait training For the Purpose of:: To improve gait and locomotor functions Manual Therapy Techniques to Include: Passive ROM For the Purpose of:: To increase ROM, To improve nutrient delivery to tissue, To improve muscle performance and motor function, To increase flexibility/ROM Thank you for the opportunity to evaluate your patient. For Medicare and Medicare HMO plans, please review the plan of care and approve it. It will need to be FAXED BACK to us at [phone] for Medicare purposes. For Medicare only, by signing this I certify the plan of care. Please let me know if there are questions or concerns regarding this plan of care. Physician Signature: Date:
--- NOTE | 2019-07-20 12:00 | HP.PTREVAL_ITS ---
Sin Raygoza, It has been my pleasure to treat CASPER CHRISTENSEN over the last 10 visits for MS. Please see the progress note below for an update on the physical therapy plan of care! Subjective: Pt feels a little stronger today. Pt feels that when she comes to therapy she is much better physically and emotionally and worse on the weeks that she is not in therapy. Her MS will not improve but her QOL is improved with therapy physically and emotionally. Objective/Function: Pt had a lot more strength today and able to lock her knees better in standing Plan Plan: 1-2X every week for 12 weeks for transfer training, gait training, LE stretching, LE strengthening (especially hip abd, hip ext, knee ext), standing mechanics, standing balance with HEP Goals Goal 1:: I HEP Goal Time Frame: 8-12 Weeks Goal Progress: Progressing Goal 2:: Be able to stand up and support herself enough to be ablet pankaj pull pants up with ease Goal Time Frame: 8-12 Weeks Goal Progress: Goal Met Goal 3:: Increase LE strength to be ableto sit in wc and not have her R leg adduct so much Goal Time Frame: 8-12 Weeks Goal Progress: Not Progressing Goal 4:: Be able to walk 25 feet with AFO on and rolling walker with min A Goal Time Frame: 8-12 Weeks Anticipated Interventions Patient/Client Instruction: Educate patient on: Condition, Plan of Care For the Purpose of:: To increase ROM, To improve nutrient delivery to tissue, To improve muscle performance and motor function, To improve ability to perform ADL's, To increase tolerance to activity/condition/position, To improve performance and independence with ADL's, To decrease level of supervision to perform tasks, To improve ability of physical actions for home/community/work/leisure, To improve gait and locomotor functions, To increase flexibility/ROM, To improve balance, To improve safety with gait Therapeutic Exercise to Include: Strength training, Balance training, Flexibilty training, Gait and locomotor training, Active ROM, Dynamic Lumbar Stabilization For the Purpose of:: To improve nutrient delivery to tissue, To improve muscle p erformance and motor function, To improve ability to perform ADL's, To increase tolerance to activity/condition/position, To improve performance and independence with ADL's, To decrease level of supervision to perform tasks, To improve ability of physical actions for home/community/work/leisure, To improve gait and locomotor functions, To improve health of tissue, To decrease soft tissue restriction, To increase flexibility/ROM, To improve balance, To improve safety with gait Functional Training to Include: Gait training For the Purpose of:: To improve gait and locomotor functions Manual Therapy Techniques to Include: Passive ROM For the Purpose of:: To increase ROM, To improve nutrient delivery to tissue, To improve muscle performance and motor function, To increase flexibility/ROM Please do not hesitate to contact me at [phone] by phone or if you have questions or concerns regarding this new plan of care! Sincerely, Elis Churchill, MPT
== END 2019-09-14 19:00 | disposition home or self-care (01) ==
LOC: PT 11:00
PROVIDERS: PCP Family Medicine; Referring Provider Internal Medicine; Visit Provider Internal Medicine
DX: G35 Multiple sclerosis (principal); R27.0 Ataxia, unspecified
CPT/HCPCS: 97110; 97140; 97162

== ENCOUNTER → 2019-09-27 13:26 | Outpatient (CLI) | payer OTHER, SELFPAY ==
[2018-02-01 11:47] VITALS: BMI 15.0
[2019-09-06 13:50] VITALS: BMI 15.0
== END ==
PROVIDERS: PCP Family Medicine; Visit Provider Family Medicine
DX: N39.0 Urinary tract infection, site not specified (principal)
CPT/HCPCS: 87086; 87088; 87186

== ENCOUNTER → 2019-10-17 13:55 | Outpatient (CLI) | payer OTHER, SELFPAY ==
[2018-02-01 11:47] VITALS: BMI 15.0
[2019-09-06 13:50] VITALS: BMI 15.0
--- NOTE | 2019-10-17 13:56 | BI_ITS ---
MAMMOGRAPHY - UNILATERAL SCREENING: RIGHT BREAST REASON FOR EXAM: Female, 54 years old. Routine annual screening examination (unilateral). PERTINENT HISTORY: Personal history of breast cancer. Prior left mastectomy and radiation treatment. TECHNIQUE: Digital unilateral breast frederick (3D mammographic acquisition) in the CC and MLO projections. 2-D mediolateral oblique (MLO) and craniocaudad (CC) views of both breasts were obtained. CAD: Full Field Digital Mammography with Computer Added Detection was performed. COMPARISON: Comparison is made with prior examination of 12/11/2016. FINDINGS: Breast Composition: The breasts are extremely dense, which lowers the sensitivity of mammography. There are no dominant masses or suspicious calcifications. No other significant abnormalities are identified. There has been no significant change since the prior study. BI/SCREEN MAMM (CAD) W/FREDERICK UNI R IMPRESSION: Stable unilateral screening mammogram. Yearly follow-up mammogram recommended. (A) ASSESSMENT CATEGORY: BIRADS Category 2: Benign. A letter regarding these results will be sent to the patient by the facility within 30 days. Approximately 10% of breast cancers are not detected by mammography. A normal mammogram should not delay biopsy of a clinically suspicious abnormality. [id number] Electronically Signed: Dinesh Marie, at 14:52 EDT , Service support ,
== END ==
PROVIDERS: PCP Family Medicine; Referring Provider Surgery; Visit Provider Surgery
DX: Z12.31 Encounter for screening mammogram for malignant neoplasm of breast (principal)
CPT/HCPCS: 77063; 77067

== ENCOUNTER → 2019-12-19 13:23 | Outpatient (CLI) | payer OTHER, SELFPAY ==
[2018-02-01 11:47] VITALS: BMI 15.0
[2019-11-01 14:12] VITALS: BMI 16.2
== END ==
PROVIDERS: PCP Family Medicine; Visit Provider Family Medicine
DX: N39.0 Urinary tract infection, site not specified (principal)
CPT/HCPCS: 87086; 87088; 87186

== ENCOUNTER 2020-01-04 11:00 | Outpatient (RCR) | payer OTHER, SELFPAY ==
[2018-02-01 11:47] VITALS: BMI 15.0
[2019-09-06 13:50] VITALS: BMI 15.0
--- NOTE | 2019-11-14 10:43 | HP.PTREVAL ---
Dr. Mario Soliz, DO, It has been my pleasure to treat CASPER CHRISTENSEN over the last 18 visits for MS. Please see the progress note below for an update on the physical therapy plan of care! Subjective: Pt had a represenative here from [employer] today to fit for a powered wheelchair. Objective/Function: hip flexion R trace and L 0. Hip ext B 0/5. Hip abd B trace. Hip add trace. Knee flex B 2-/5. knee ext B 2-/5. DF R trace and L 2-/5. PF R trace and L 2-/5. Shld flex B 4-/5. Shld abd B 3+/5. Shld Add 4/5 B. Elbow flex 4-/5 B. Elnow extension 4-/5. Wrist flex and ext B 3+/5, Pinch video photographer R 6#. Pinch video photographer L 7#. Harp Regulator strength R 31# and L 40#. Gait: 3 steps with rolling walker and then turns around to get back to mat table with all upper body strength lifting self up to move feet. Plan Plan: 1X/ every 2 weeks for 30 minutes to work on standing activities and balnce and stretching activities.... . Goals Goal 1:: Standing balance for 30 seconds without UE support Goal Time Frame: 8-12 Weeks Goal 2:: Increase hip extension flexibility Goal Time Frame: 8-12 Weeks Goal 3:: Reduce spacticity via manual stretching Goal Time Frame: 8-12 Weeks Goal 4:: Be able to sit to stand X 5 with ease Goal Time Frame: 8-12 Weeks Anticipated Interventions Please do not hesitate to contact me at [phone] by phone or if you have questions or concerns regarding this new plan of care! Sincerely, Elis Churchill, MPT
--- NOTE | 2020-04-03 11:07 | HP.PTDCSUM ---
It has been my pleasure to treat CASPER CHRISTENSEN referred by Dr. Mario Soliz DO, with the diagnosis of MS for a total of 21 visit(s). Discharge Date: 04/03/20 Please see the following information for a summary of their discharge status. Subjective: Pt reports that she is not having a good day and that her new chair is stressing her out. general pain Pain Intensity (Out of 10): 4 % Improvement: 10 Objective/Function: Pt trunk control was weaker today. Goal 1:: Standing balance for 30 seconds without UE support Goal 2:: Increase hip extension flexibility Goal 3:: Reduce spacticity via manual stretching Goal 4:: Be able to sit to stand X 5 with ease Plan: 1X/ every 2 weeks for 30 minutes to work on standing activities and balnce and stretching activities.... . Discharge Comments: D/C this chart to a new V# If there are questions or concerns regarding this patient's physical therapy, please feel free to call me at [phone]. Thank you for the referral of this patient. Sincerely, Elis Churchill, MPT
== END 2020-01-04 19:00 | disposition home or self-care (01) ==
LOC: PT 11:00
PROVIDERS: PCP Family Medicine; Visit Provider Family Medicine
DX: G35 Multiple sclerosis (principal); R27.0 Ataxia, unspecified
CPT/HCPCS: 97110; 97140; 97530

== ENCOUNTER → 2020-02-22 15:45 | Outpatient (CLI) | payer OTHER, SELFPAY ==
[2018-02-01 11:47] VITALS: BMI 15.0
[2019-11-01 14:12] VITALS: BMI 16.2
== END ==
PROVIDERS: PCP Family Medicine; Visit Provider Family Medicine
DX: N39.0 Urinary tract infection, site not specified (principal)
CPT/HCPCS: 87086; 87088

== ENCOUNTER → 2020-03-07 13:21 | Outpatient (CLI) | payer OTHER, SELFPAY ==
[2018-02-01 11:47] VITALS: BMI 15.0
[2019-11-01 14:12] VITALS: BMI 16.2
== END ==
PROVIDERS: PCP Family Medicine; Visit Provider Family Medicine
DX: N39.0 Urinary tract infection, site not specified (principal)
CPT/HCPCS: 87086; 87088; 87186

== ENCOUNTER → 2020-05-18 15:11 | Outpatient (CLI) | payer OTHER, SELFPAY ==
[2018-02-01 11:47] VITALS: BMI 15.0
[2020-05-01 10:35] VITALS: BMI 16.2
== END ==
PROVIDERS: PCP Family Medicine; Visit Provider Family Medicine
DX: N39.0 Urinary tract infection, site not specified (principal)
CPT/HCPCS: 87077; 87086; 87088; 87186

== ENCOUNTER 2020-06-05 11:00 | Outpatient (RCR) | payer OTHER, SELFPAY ==
[2018-02-01 11:47] VITALS: BMI 15.0
[2019-11-01 14:12] VITALS: BMI 16.2
--- NOTE | 2020-07-30 14:54 | HP.PT.NRP ---
CASPER Manjeet CHRISTENSEN was seen in my office for initial evaluation on . The following Plan of Care was established for this patient: This patient was last seen in our office 06/05/20. Pertinent comments regarding their Physical therapy will appear below: DC PT as pt is in the hospital and will need updated orders to return to outpatient PT. At this point I will be discontinuing this patient from physical therapy. I would be happy to see this patient again in the future if found appropriate by the physician. Thank you! Elis Churchill, MPT
== END 2020-06-05 19:00 | disposition home or self-care (01) ==
LOC: PT 11:00
PROVIDERS: PCP Family Medicine; Referring Provider Family Medicine; Visit Provider Family Medicine
DX: G35 Multiple sclerosis (principal)
CPT/HCPCS: 97110; 97116; 97140

== ENCOUNTER → 2020-07-17 13:21 | Outpatient (CLI) | payer OTHER, SELFPAY ==
[2018-02-01 11:47] VITALS: BMI 15.0
[2020-05-01 10:35] VITALS: BMI 16.2
--- NOTE | 2020-07-17 13:24 | RAD_ITS ---
STUDY: X-RAY - RIGHT KNEE REASON FOR EXAM: Female, 54 years old. TWISTING KNEE INJURY TECHNIQUE: 4 view(s) of the knee. COMPARISON: None. FINDINGS: Nondisplaced supracondylar fracture of the distal femur. Normal visualized proximal tibia and fibula. Normal proximal tibiofibular articulation. Normal medial femorotibial compartment. Normal lateral femorotibial compartment. Normal patellofemoral articulation. Soft tissue swelling. RAD/Knee 4 or More Views IMPRESSION: Nondisplaced supracondylar fracture of the distal femur with overlying soft tissue swelling and joint effusion. Electronically Signed: Dinesh Marie MD at 13:49 EDT , Service support ,
== END ==
PROVIDERS: PCP Family Medicine; Referring Provider Family Medicine; Visit Provider Family Medicine
DX: M25.561 Pain in right knee (principal)
CPT/HCPCS: 73564

== ENCOUNTER 2020-07-19 19:11 | Inpatient (IN) | payer OTHER, SELFPAY ==
[2018-02-01 11:47] VITALS: BMI 15.0
[2020-05-01 10:35] VITALS: BMI 16.2
[2020-07-19 19:11] VITALS: BP 113/72; PULSE 84; RESP 18; TEMP 36.7; O2SAT 99; BMI 16.4
--- NOTE | 2020-07-19 20:19 | RAD_ITS ---
INDICATION: Pain EXAMINATION/TECHNIQUE: X-RAY - XR Abdomen Series W/ Chest 1 View COMPARISON: None FINDINGS: --Chest: LINES/DEVICES: None. LUNGS: No consolidation, edema or effusion. No pneumothorax. Hyperinflated lungs. MEDIASTINUM AND CARDIOVASCULAR STRUCTURES: Cardiac silhouette not enlarged. Central airways and mediastinal contour are unremarkable. BONES AND SOFT TISSUES: No acute findings. Left axillary clips. --Abdomen: BOWEL GAS PATTERN: Non-obstructive. Large amount of retained stool in the colon. FREE AIR: None visualized. ORGANOMEGALY: Not seen. CALCIFICATIONS: No abnormal calcifications observed. BONES AND SOFT TISSUES: No acute findings. RAD/Acute Abdomen Inc Chest IMPRESSION: Hyperinflated lungs which can be seen in COPD. Nonobstructive bowel gas pattern. Large amount of retained stool in the colon. Electronically Signed: Rob Kirby MD at 22:26 EDT Tel , Service support ,
[2020-07-19] MEDS: Morphine 4 MG/ML Syringe IV (20:55)
[2020-07-19] MEDS: 0.9% Normal Saline 1,000 ML 1000 ML IV (20:56)
[2020-07-19] MEDS: Metoclopramide 10 MG/2 ML Vial IV (20:56)
[2020-07-19 21:04] LABS: Mucous, Urine 0 SEEN /hpf (<or=2+)
[2020-07-19 21:06] LABS: Color, Urine Yellow (Yellow); Glucose, Dipstick Normal (Normal); Leukocyte Esterase-Dipstick 100 /ul (Negative); Nitrite-Dipstick Negative (Negative); Occult Blood-Urine 25 /ul (Negative); Protein-Dipstick 15 mg/dl (Negative); Urine Bilirubin Dipstick Negative (Negative); Urine Clarity Cloudy (Clear); Urine Urobilinogen 1 mg/dl (Normal)
[2020-07-19 21:07] LABS: Absolute Lymphocyte Count 1.24 X10^3/uL (0.83-4.51); Absolute Neutrophil Count 7.8 X10^3/uL (2.0-7.7); Basophil# 0.03 X10^3/uL; Basophil% 0.3 % (0-1); Eosinophil# 0.08 X10^3/uL; Eosinophils% 0.7 % (0-5); Hematocrit 30.9 % (37-47); Hemoglobin 10.6 g/dL (12.0-15.0); Lymphocyte # 1.24 X10^3/ul (0.83-4.51); Lymphocyte % 11.5 % (19-41); Mean Corp Hgb Conc 34.3 g/dL (32-36); Mean Corpuscular Hgb 35.2 pg (27.0-32.0); Mean Corpuscular Volume 102.7 fL (81-99); Monocyte# 1.59 X10^3/uL; Monocyte% 14.8 % (0-10); NRBC Flagged by Analyzer 0.4 % (0-5); Neutrophil # 7.77 X10^3/uL (2.7-7.7); Neutrophil % 72.3 % (47-70); POSITIVE DIFFERENTIAL YES; Platelet Count 207 K/mm3 (150-450); RBC Distribution Width CV 13.1 % (11.6-14.6); RBC Distribution Width SD 49.2 fl (35.1-43.9); Red Blood Count 3.01 M/mm3 (4.2-5.4); White Blood Count 10.8 K/mm3 (4.4-11.0)
[2020-07-19 21:09] LABS: Ketone-Dipstick 150 mg/dl (Negative)
[2020-07-19 21:14] LABS: Bacteria 2+ /hpf (None Seen); Yeast-Urine 1+ /hpf (None Seen)
[2020-07-19 21:15] LABS: Squamous Epithelial Cells - UA 5-10 SEEN /hpf (5-10); White Blood Cells 10-25 SEEN /hpf (0-5)
[2020-07-19 21:18] LABS: Red Blood Cells-Urine 0-5 SEEN /hpf (0-5)
[2020-07-19 21:23] LABS: ALB/GLOB Ratio 1.1 RATIO (0.9-2.4); AST(SGOT) 13 U/L (15-37); Alanine Aminotransfer ALT/SGPT 17 U/L (13-56); Albumin, Serum 3.4 g/dL (3.2-5.0); Alkaline Phosphatase 45 U/L (45-117); Anion Gap 6 (5-15); BUN 15 mg/dL (7-18); BUN/Creat Ratio 19.9 RATIO (10-20); Chloride 105 mmol/L (98-107); Creatinine, Serum 0.76 mg/dL (0.55-1.02); EST Glomerular Filtration Rate 85 mL/min (>60); Est Glom Filt Rate - Afr Amer 102 mL/min (>60); Estimated Creatinine Clearance 63.62 ml/min; Globulin 3.2 g/dL (2.2-4.2); Glucose 133 mg/dL (74-106); Potassium 4.1 mmol/L (3.5-5.1); Protein, Total 6.6 g/dL (6.4-8.2); Sodium Level 138 mmol/L (136-145)
[2020-07-19 21:24] LABS: Differential Indicated SCAN CRITERIA MET
[2020-07-19 21:50] LABS: Platelet Estimate ADEQUATE (ADEQ)
[2020-07-19 21:51] LABS: Anisocytosis 1+; Macrocytosis 1+; Red Cell Morphology N CHROM NORMAL (NORM C&C)
--- NOTE | 2020-07-19 23:25 | EDS_ITS ---
HPI History of Present Illness Chief Complaint: Nausea/Vomiting Narrative Narrative: 54-year-old patient of Dr. Soliz and Dr. Ricardo Valdez. She has a history of severe multiple sclerosis and is wheelchair-bound. States that 2 days ago she broke her right femur during a transfer. She saw Dr. Ricardo Valdez yesterday and this is felt to be nonoperative and she was placed in a brace. Patient reports that she is having severe pain despite Vicodin and has been unable to self cath since noon due to this pain. She denies abdominal pain. She reports has been nauseated and vomited twice. No blood in her emesis. States that her last bowel movement was 2 weeks ago and that that is not unusual for her. [facility] Medical History (Updated 07/19/20 @ 23:[address] Jesus Osman MD) Breast cancer Multiple sclerosis Home Medications baclofen 10 mg tablet 10 mg PO Q4H 02/28/17 [History Last Taken 10/12/17 06:00] cholecalciferol (vitamin D3) 10,000 unit PO DAILY 10/09/17 [History Last Taken Unknown] acetaminophen 650 mg PO Q6H PRN PRN tab 10/13/17 [Rx Last Taken Unknown] dalfampridine 10 mg PO DAILY 03/24/18 [History Last Taken Unknown] natalizumab 300 mg IV QMONTH 07/26/18 [History Last Taken Unknown] tamoxifen 20 mg PO DAILY 90 Days #90 tab 03/06/20 [Rx Last Taken Unknown] hydrocodone-acetaminophen 1 tab PO Q6H PRN 07/19/20 [History Last Taken Unknown] Allergy/AdvReac Type Severity Reaction Status Date / Time ciprofloxacin Allergy Mild unknown Verified 07/19/20 19:13 sulfamethoxazole AdvReac Severe Nausea Verified 07/19/20 19:13 [From Bactrim] trimethoprim [From Bactrim] AdvReac Severe Nausea Verified 07/19/20 19:13 Family History Aunt Breast cancer Mother Diabetes Surgical History h/o tonsillectomy S/P left mastectomy (~10/12/17) Social History Smoking Status: Former smoker alcohol intake: never ROS ROS ED Constitutional Constitutional ED: Denies chills, fever(s) or sweats Eyes Eyes: Denies change in vision ENT ENT ED: Denies sore throat Cardiovascular Cardiovascular: Denies chest pain Respiratory/Chest Respiratory/Chest: Denies cough, dyspnea or dyspnea on exertion Gastrointestinal Gastrointestinal: Reports constipation, nausea and vomiting; Denies abdominal pain, diarrhea or melena Genitourinary Genitourinary ED: Denies dysuria or urinary frequency Musculoskeletal Musculoskeletal: Denies myalgias Integumentary Denies rash Neurologic Neurologic: Denies headache(s), paresthesias or weakness EXAM Physical Exam Const Vital Signs: 07/19/20 19:11 Temperature 98.0 F Temperature Source Temporal Pulse Rate 84 Respiratory Rate 18 Blood Pressure 113/72 Blood Pressure Mean 85 Pulse Ox 99 Oxygen Delivery Method Room Air Positive well nourished and well developed General Appearance ED: well developed HEENT Reports normocephalic and head/scalp atraumatic Eyes PERRL Neck no lymphadenopathy, supple and no JVD General: Negative for tenderness Resp normal respiratory effort and clear to auscultation bilaterally Cardio regular rate, regular rhythm and no murmurs GI normal to inspection, nondistended, normoactive bowel sounds and non-tender GI Narrative: No guarding, rebound, or peritoneal signs. Palpation: soft Back/Spine Back/Spine Narrative: Nontender. Extremity Extremity Narrative: Patient's right knee is in an immobilizer. General Extremety ED: Yes tenderness; Negative for edema General Extremity: Negative for edema Neuro oriented x3, CN's II-XII intact bilaterally and no sensory deficits noted Sensorium / Orientation: alert Motor Exam: strength 5/5 throughout Psych mental status grossly normal Skin no rashes or lesions noted MDM MDM Lab Data Labs: Laboratory Results - last 24 hr 07/19/20 07/19/20 07/19/20 20:50 20:50 20:55 WBC 10.8 RBC 3.01 L Hgb 10.6 L Hct 30.9 L MCV 102.7 H MCH 35.2 H MCHC 34.3 RDW Std Deviation 49.2 H RDW Coeff of Raisa 13.1 Plt Count 207 MPV 12.0 Immature Gran % (Auto) 0.400 Neut % (Auto) 72.3 H Lymph % (Auto) 11.5 L Evangeline % (Auto) 14.8 H Eos % (Auto) 0.7 Baso % (Auto) 0.3 Absolute Neuts (auto) 7.8 H Absolute Lymphs (auto) 1.24 Nucleated RBC % 0.4 Differential Comment SEE COMMENT Diff Path Review May foll Platelet Estimate ADEQUATE RBC Morphology N CHROM Anisocytosis 1+ Macrocytosis 1+ Sodium 138 Potassium 4.1 Chloride 105 Carbon Dioxide 27.0 Anion Gap 6 BUN 15 Creatinine 0.76 Estim Creat Clear Calc 63.62 Est GFR (MDRD) Af Amer 102 Est GFR (MDRD) Non-Af 85 BUN/Creatinine Ratio 19.9 Glucose 133 H Calcium 9.0 Total Bilirubin 0.90 AST 13 L ALT 17 Alkaline Phosphatase 45 Total Protein 6.6 Albumin 3.4 Globulin 3.2 Albumin/Globulin Ratio 1.1 Urine Color Yellow Urine Clarity Cloudy Urine pH 5.0 Ur Specific [place] 1.020 Urine Protein 15 H Urine Glucose (UA) Normal Urine Ketones 150 A* Urine Occult Blood 25 H Urine Nitrite Negative Urine Bilirubin Negative Urine Urobilinogen 1 H Ur Leukocyte Esterase 100 H Urine RBC 0-5 SEEN Urine WBC 10-25 SEEN Ur Squamous Epith Cells 5-10 SEEN Urine Bacteria 2+ Urine Mucus 0 SEEN Urine Yeast 1+ Radiography Diagnostic Testing: Radiology Impression Acute Abdomen Series 07/19/20 20:19 IMPRESSION: Hyperinflated lungs which can be seen in COPD. Nonobstructive bowel gas pattern. Large amount of retained stool in the colon. Electronically Signed: Rob Kirby MD at 22:26 EDT Tel , Service support , On my read 3 view of the abdomen shows a nonspecific bowel gas pattern. There is a large amount of stool. Treatment and Re-Evaluation Comments:: Emergency department course: Patient had an IV placed. She was given morphine and Zofran IV. She was given a liter normal saline. She had a Pandey catheter placed that she is not able to self cath due to the femur fracture. Treatment plan: Patient clearly cannot care for herself at home with this. She was discussed with Dr. Schmidt. She will be admitted to the hospital for further evaluation and treatment. Discharge Plan Triage Chief Complaint: Nausea/Vomiting ED Provider: Jesus Osman Dx/Rx/DC Orders Clinical Impression: UTI (urinary tract infection), Constipation, Femur fracture, right Prescriptions: No Action baclofen 10 mg tablet 10 mg PO Q4H RF: 0 cholecalciferol (vitamin D3) 10,000 UNIT capsule 10,000 unit PO DAILY RF: 0 acetaminophen 325 MG tablet 650 mg PO Q6H PRN PRN (Reason: Pain) RF: 0 dalfampridine 10 MG tablet extended release 12 hr 10 mg PO DAILY RF: 0 natalizumab 300 MG/15 ML solution 300 mg IV QMONTH RF: 0 tamoxifen 20 MG tablet 20 mg PO DAILY 90 Days Qty: 90 RF: 3 hydrocodone-acetaminophen 5-325 mg Tablet 1 tab PO Q6H PRN (Reason: Pain) RF: 0 Primary Care Provider: Mario Soliz Referrals: Mario Soliz DO [Primary Care Provider] -
[2020-07-19] MEDS: Ceftriaxone 1 GM/50 ML BAG IV (23:32)
--- NOTE | 2020-07-19 23:40 | PCM.HP.STD ---
HPI - General HPI Narrative CASPER CHRISTENSEN, 54 F with a significant history of severe multiple sclerosis with wheelchair-bound; left breast cancer status post mastectomy and on tamoxifen who presented to the emergency department with nausea and vomiting that started a day before presentation. Reportedly 2 days ago while patient was transferring to wheelchair she fell and broke her femur. On the day before presentation he went to see orthopedic doctor who ordered a brace. Patient was given Vicodin for pain. Because patient was complaining of nausea and vomiting with Vicodin he called orthopedic surgeon who prescribed Zofran. Per patient Zofran was not given her relief. Patient think that swelling in her right hip has increased with the brace on. At baseline patient straight cath. With her current brace patient is not able to straight cath. Patient reports that her bowels moved about every 2 weeks. It is just 2 weeks past and her bowels have not moved. With the last bowel movement the stools were had. [facility] Medical History (Updated 07/20/20 @ 00:[address] Blaze Schmidt MD) Breast cancer Multiple sclerosis Home Medications baclofen 10 mg tablet 10 mg PO Q4H 02/28/17 [History Last Taken 10/12/17 06:00] cholecalciferol (vitamin D3) 10,000 unit PO DAILY 10/09/17 [History Last Taken Unknown] acetaminophen 650 mg PO Q6H PRN PRN tab 10/13/17 [Rx Last Taken Unknown] dalfampridine 10 mg PO DAILY 03/24/18 [History Last Taken Unknown] natalizumab 300 mg IV QMONTH 07/26/18 [History Last Taken Unknown] tamoxifen 20 mg PO DAILY 90 Days #90 tab 03/06/20 [Rx Last Taken Unknown] hydrocodone-acetaminophen 1 tab PO Q6H PRN 07/19/20 [History Last Taken Unknown] Allergy/AdvReac Type Severity Reaction Status Date / Time ciprofloxacin Allergy Mild unknown Verified 07/19/20 19:13 sulfamethoxazole AdvReac Severe Nausea Verified 07/19/20 19:13 [From Bactrim] trimethoprim [From Bactrim] AdvReac Severe Nausea Verified 07/19/20 19:13 Family History Aunt Breast cancer Mother Diabetes Surgical History h/o tonsillectomy S/P left mastectomy (~10/12/17) Social History Smoking Status: Former smoker alcohol intake: never ROS ROS Narrative 12 point review of system is negative except as stated in HPI Vital Signs Vital Signs Vital Signs: 07/19/20 19:11 Temperature 98.0 F Temperature Source Temporal Pulse Rate 84 Respiratory Rate 18 Blood Pressure 113/72 Blood Pressure Mean 85 Pulse Ox 99 Oxygen Delivery Method Room Air Physical Exam Narrative Alert and oriented x3 Nontraumatic; normocephalic Lung clear to auscultate Heart sounds S1-S2. No murmur, gallop or rubs. Abdomen bowel sounds present soft, nontender nondistended : Indwelling Pandey catheter in place. Extremity: A brace of right hip. Swelling of right hip. Left hip normal Lab / Micro Data Result Diagrams: 07/19/20 20:50 07/19/20 20:50 Labs: Laboratory Results - last 24 hr 07/19/20 07/19/20 07/19/20 20:50 20:50 20:55 WBC 10.8 RBC 3.01 L Hgb 10.6 L Hct 30.9 L MCV 102.7 H MCH 35.2 H MCHC 34.3 RDW Std Deviation 49.2 H RDW Coeff of Raisa 13.1 Plt Count 207 MPV 12.0 Immature Gran % (Auto) 0.400 Neut % (Auto) 72.3 H Lymph % (Auto) 11.5 L Alexander % (Auto) 14.8 H Eos % (Auto) 0.7 Baso % (Auto) 0.3 Absolute Neuts (auto) 7.8 H Absolute Lymphs (auto) 1.24 Nucleated RBC % 0.4 Differential Comment SEE COMMENT Diff Path Review May foll Platelet Estimate ADEQUATE RBC Morphology N CHROM Anisocytosis 1+ Macrocytosis 1+ Sodium 138 Potassium 4.1 Chloride 105 Carbon Dioxide 27.0 Anion Gap 6 BUN 15 Creatinine 0.76 Estim Creat Clear Calc 63.62 Est GFR (MDRD) Af Amer 102 Est GFR (MDRD) Non-Af 85 BUN/Creatinine Ratio 19.9 Glucose 133 H Calcium 9.0 Total Bilirubin 0.90 AST 13 L ALT 17 Alkaline Phosphatase 45 Total Protein 6.6 Albumin 3.4 Globulin 3.2 Albumin/Globulin Ratio 1.1 Urine Color Yellow Urine Clarity Cloudy Urine pH 5.0 Ur Specific [place] 1.020 Urine Protein 15 H Urine Glucose (UA) Normal Urine Ketones 150 A* Urine Occult Blood 25 H Urine Nitrite Negative Urine Bilirubin Negative Urine Urobilinogen 1 H Ur Leukocyte Esterase 100 H Urine RBC 0-5 SEEN Urine WBC 10-25 SEEN Ur Squamous Epith Cells 5-10 SEEN Urine Bacteria 2+ Urine Mucus 0 SEEN Urine Yeast 1+ Radiology Impression Acute Abdomen Series 07/19/20 20:19 IMPRESSION: Hyperinflated lungs which can be seen in COPD. Nonobstructive bowel gas pattern. Large amount of retained stool in the colon. Electronically Signed: Rob Kirby MD at 22:26 EDT Tel , Service support , Assessment & Plan Assessment/Plan (1) Femur fracture, right: QUALIFIERS: Encounter type: subsequent encounter PLAN: Location of fracture unknown as x-ray is not available. Order to obtain x-ray from orthopedic office. We will change Vicodin to oxycodone to see whether nausea vomiting would reduce. Acetaminophen as needed ordered. IV Zofran for antiemetics. (2) Cystitis: PLAN: Review of major department labs showed abnormal urinalysis. Cystitis likely with contribution from straight cath. Received ceftriaxone at the emergent department continued. Ceftriaxone continued. (3) Multiple sclerosis: PLAN: Baclofen and dalfampridine continued. (4) Constipation: QUALIFIERS: Constipation type: slow transit constipation Qualified Code(s): K59.01 - Slow transit constipation PLAN: Reportedly took MiraLAX about 3 days ago. She reported when she take MiraLAX it works within about 4 days time. Senokot 8 does not give her relief. Dulcolax p.o. x1 ordered. (5) History of left breast cancer: PLAN: Tamoxifen continued DVT prophylaxis: Subcutaneous Lovenox ordered. Visit Charges Inpatient E&M: 56798 Init Hosp L3
[2020-07-19 23:47] VITALS: BP 125/71; PULSE 75; RESP 16; TEMP 36.9; O2SAT 99
[2020-07-20] VITALS (7 sets, daily range): BP systolic 106–141; BP diastolic 65–68; PULSE 82–92; RESP 16–18; TEMP 36.7–37; O2SAT 94–97; BMI 17.9
[2020-07-20] MEDS: Baclofen 10 MG Tablet PO ×6 (01:46→21:59)
[2020-07-20] MEDS: Bisacodyl 5 MG Tablet 10 MG PO (01:46)
[2020-07-20] MEDS: Acetaminophen 325 MG Tablet 650 MG PO (01:46)
[2020-07-20] MEDS: 0.9% Normal Saline 1,000 ML 75 ML IV ×2 (01:47→14:12)
[2020-07-20 06:19] LABS: Absolute Lymphocyte Count 1.43 X10^3/uL (0.83-4.51); Absolute Neutrophil Count 4.3 X10^3/uL (2.0-7.7); Basophil# 0.02 X10^3/uL; Basophil% 0.3 % (0-1); Eosinophil# 0.07 X10^3/uL; Hematocrit 24.4 % (37-47); Hemoglobin 8.1 g/dL (12.0-15.0); Lymphocyte # 1.43 X10^3/ul (0.83-4.51); Lymphocyte % 21.2 % (19-41); Mean Corp Hgb Conc 33.2 g/dL (32-36); Mean Corpuscular Volume 102.5 fL (81-99); Mean Platelet Vol. 11.7 fl (6.2-12.0); Monocyte# 0.86 X10^3/uL; Monocyte% 12.8 % (0-10); NRBC Flagged by Analyzer 0.3 % (0-5); Neutrophil # 4.32 X10^3/uL (2.7-7.7); Neutrophil % 64.3 % (47-70); Platelet Count 167 K/mm3 (150-450); RBC Distribution Width CV 13.2 % (11.6-14.6); RBC Distribution Width SD 49.1 fl (35.1-43.9); Red Blood Count 2.38 M/mm3 (4.2-5.4); White Blood Count 6.7 K/mm3 (4.4-11.0)
[2020-07-20 06:58] LABS: Anion Gap 5 (5-15); BUN 9 mg/dL (7-18); BUN/Creat Ratio 25.3 RATIO (10-20); Chloride 110 mmol/L (98-107); Creatinine, Serum 0.36 mg/dL (0.55-1.02); EST Glomerular Filtration Rate 202 mL/min (>60); Est Glom Filt Rate - Afr Amer 244 mL/min (>60); Estimated Creatinine Clearance 146.09 ml/min; Glucose 101 mg/dL (74-106); Potassium 3.6 mmol/L (3.5-5.1); Sodium Level 141 mmol/L (136-145)
--- NOTE | 2020-07-20 07:04 | PN.HOSP_ITS ---
Subjective Subjective: Patient notes ongoing pain to the RLE, worse with movement, worse when she attempts to sit up with nausea associated with her pain. She notes ongoing constipation. She notes notably swollen R knee following recent femur fracture and remains in the brace. She notes having seen Dr. Valdez during the week and she was felt not good candidate for surgery. She is amenable to TCU consideration given her debilities, acute presentation and notes her currently is also debilitated with cancer. Patient denies fevers, chills, nausea, emesis, abdominal pain, chest pain or dyspnea. Objective Data Objective Data Vital Signs: Vital Signs Temp Pulse Resp BP Pulse Ox 98.6 F 82 16 117/65 96 07/20/20 06:20 07/20/20 06:20 07/20/20 06:20 07/20/20 06:20 07/20/20 06:20 Oxygen Delivery Method Room Air Weight: 114 lb 3.191 oz Body Mass Index (BMI) 17.9 Intake & Output: Intake and Output for Last 24 Hours 07/18/20 07/19/20 07/20/20 23:59 23:59 23:59 Intake Total 1000 / 1000 290 / 290 Output Total 600 / 600 Balance 1000 / 1000 -310 / -310 Lab / Micro Data Result Diagrams: 07/20/20 06:12 07/20/20 06:12 Labs: Laboratory Results - last 24 hr 07/19/20 07/19/20 07/19/20 20:50 20:50 20:55 WBC 10.8 RBC 3.01 L Hgb 10.6 L Hct 30.9 L MCV 102.7 H MCH 35.2 H MCHC 34.3 RDW Std Deviation 49.2 H RDW Coeff of Raisa 13.1 Plt Count 207 MPV 12.0 Immature Gran % (Auto) 0.400 Neut % (Auto) 72.3 H Lymph % (Auto) 11.5 L [place] % (Auto) 14.8 H Eos % (Auto) 0.7 Baso % (Auto) 0.3 Absolute Neuts (auto) 7.8 H Absolute Lymphs (auto) 1.24 Nucleated RBC % 0.4 Differential Comment SEE COMMENT Diff Path Review May foll Platelet Estimate ADEQUATE RBC Morphology N CHROM Anisocytosis 1+ Macrocytosis 1+ Sodium 138 Potassium 4.1 Chloride 105 Carbon Dioxide 27.0 Anion Gap 6 BUN 15 Creatinine 0.76 Estim Creat Clear Calc 63.62 Est GFR (MDRD) Af Amer 102 Est GFR (MDRD) Non-Af 85 BUN/Creatinine Ratio 19.9 Glucose 133 H Calcium 9.0 Total Bilirubin 0.90 AST 13 L ALT 17 Alkaline Phosphatase 45 Total Protein 6.6 Albumin 3.4 Globulin 3.2 Albumin/Globulin Ratio 1.1 Urine Color Yellow Urine Clarity Cloudy Urine pH 5.0 Ur Specific [place] 1.020 Urine Protein 15 H Urine Glucose (UA) Normal Urine Ketones 150 A* Urine Occult Blood 25 H Urine Nitrite Negative Urine Bilirubin Negative Urine Urobilinogen 1 H Ur Leukocyte Esterase 100 H Urine RBC 0-5 SEEN Urine WBC 10-25 SEEN Ur Squamous Epith Cells 5-10 SEEN Urine Bacteria 2+ Urine Mucus 0 SEEN Urine Yeast 1+ 07/20/20 07/20/20 06:12 06:12 WBC 6.7 RBC 2.38 L Hgb 8.1 L Hct 24.4 L MCV 102.5 H MCH 34.0 H MCHC 33.2 RDW Std Deviation 49.1 H RDW Coeff of Raisa 13.2 Plt Count 167 MPV 11.7 Immature Gran % (Auto) 0.400 Neut % (Auto) 64.3 Lymph % (Auto) 21.2 [place] % (Auto) 12.8 H Eos % (Auto) 1.0 Baso % (Auto) 0.3 Absolute Neuts (auto) 4.3 Absolute Lymphs (auto) 1.43 Nucleated RBC % 0.3 Differential Comment Diff Path Review Platelet Estimate RBC Morphology Anisocytosis Macrocytosis Sodium 141 Potassium 3.6 Chloride 110 H Carbon Dioxide 26.0 Anion Gap 5 BUN 9 Creatinine 0.36 L Estim Creat Clear Calc 146.09 Est GFR (MDRD) Af Amer 244 Est GFR (MDRD) Non-Af 202 BUN/Creatinine Ratio 25.3 H Glucose 101 Calcium 8.0 L Total Bilirubin AST ALT Alkaline Phosphatase Total Protein Albumin Globulin Albumin/Globulin Ratio Urine Color Urine Clarity Urine pH Ur Specific [place] Urine Protein Urine Glucose (UA) Urine Ketones Urine Occult Blood Urine Nitrite Urine Bilirubin Urine Urobilinogen Ur Leukocyte Esterase Urine RBC Urine WBC Ur Squamous Epith Cells Urine Bacteria Urine Mucus Urine Yeast Radiography Diagnostic Testing: Radiology Impression Acute Abdomen Series 07/19/20 20:19 IMPRESSION: Hyperinflated lungs which can be seen in COPD. Nonobstructive bowel gas pattern. Large amount of retained stool in the colon. Electronically Signed: Rob Kirby MD at 22:26 EDT Tel , Service support , Physical Exam Narrative Physical Examination: General: awake, alert, oriented x 3 and cooperative, seated upright in PCU bed in no apparent distress but does note currently discomfort 5/10 to right lower extremity. Skin: normal color, turgor, no icterus, cyanosis, right lower extremity with brace in place. HEENT: AT/NC, EOMI, PERRLA, MMM. Lungs: Mildly diminished, > BL bases, no rales, ronchi or wheezing. Heart: Regular rate and rhythm; no gallop, rub audible. Abdomen: soft, thin habitus, NTTP, mildly distended and tympanic, hypoactive bowel sounds. Extremities: no cyanosis or clubbing, right lower extremity with brace in place given recent right fracture, edematous knee, contractures present, worse left lo wer extremity with MS. Neurological: patient awake, alert, oriented as noted; cognitive function int act; pupils equally reactive to light and accomodation; cranial nerves II-XII grossly normal, moving upper extremities, severe limitations lower extremities with contractures, right lower extremity brace status post fracture with multiple sclerosis, strength accordingly severely global decreased. Psychiatric: affect appears tearful, fatigued, no history of anxiety or depression. Assessment & Plan Assessment/Plan (1) Femur fracture, right: QUALIFIERS: Encounter type: subsequent encounter Femur location: unspecified portion of femur Fracture type: closed (2) UTI (urinary tract infection): QUALIFIERS: Hematuria presence: with hematuria Urinary tract infection type: acute cystitis Qualified Code(s): N30.01 - Acute cystitis with hematuria PLAN: The patient is a 54 y/o F w/ PMHx: Hx of Breast CA s/p radiation and mastectomy, Chronic constipation, MS w/ wheelchair bounds status w/ self catheterization needs and BL LE contractures, Chronic anemia who presents to the [facility] ED on 07/19/20 with history of recent fall 2 days prior to presentation while attempting to transfer from her wheelchair with right femur fracture with outpatient orthopedic surgery evaluation with ongoing right lower extremity and hip discomfort, difficulty self cathing secondary to her debilities and acute on chronic constipation prompting ED evaluation. 1. Acute Complicated Urinary Tract Infection with outpatient self- catheterization regimen: Admitted as MS status, currently in PCU, kaye placed in the ED, UA upon ED evaluation remarkable, pending UCx, monitor I/Os, continue IV Rocephin/Cipro w/ transition as able pending sensitivities and speciation. Given presentation with UTI, right recent femur fracture and inability to have appropriate care at home at this time patient amenable to TCU transition. Case management aware. PT/OT consulted and following. 2. Recent Acute R Femur fracture: Patient not surgical candidate secondary to poor bone quality per orthopedic surgery, Dr. Valdez with whom she is following, brace in place, will continue, nonweightbearing with history of multiple sclerosis with lower extremity contractures, ice and elevation right lower extremity if able, as needed oral and IV if necessary pain regimen. 07/17/20 Plain film w/ nondisplaced supracondylar fracture of the distal femur with overlying soft tissue swelling and joint effusion. As noted normocytic anemia presentation, not noted in prior labs, Hgb admission 10.6 w/ repeat 07/20/2020 8.1, reassessing for potential R knee hemearthroses. 3. Acute on chronic constipation: Patient with significant constipation history likely secondary to underlying multiple sclerosis, does not take routine ag gressive bowel regimen, will increase daily MiraLAX, Metamucil, senna/docusate with rectal stimulation and per rectum suppositories to assist with hold if loose stools. 4. History of Breast CA: Patient per Oncology with history of pathologic stage IIA (pT1b (m) pN1a Mx) grade 2 invasive lobular carcinoma (ER >95%, GA >99%, Her2 1+ IHC) s/p breast MRI (09/24/17) and left mastectomy with SLNBx without completion of axillary dissection w/ 11/26/17 - 01/06/18 s/p radiation, removal of the bilateral fallopian tubes and ovaries on 01/21/18, maintained on tamoxifen. 5. Multiple sclerosis with significant debilities: Patient with bilateral lower extremity severe weakness, contractures, wheelchair-bound, as noted likely require TCU transition given acute presentations as noted. Will continue home dalfampridine and PRN baclofen regimen. 6. Normocytic anemia: Admission hemoglobin 10.6 with mildly elevated MCV, repeat 07/20/2020 8.1, will obtain vitamin B12 and folic acid levels as well as Fe panel, ferritin. Will re-assess RLE to assure no hemearthrocenses as notable RLE edema especially R knee. 7. DVT prophylaxis: SCDs if able however given contractures and right knee/lower extremity brace this will be difficult, currently on Lovenox however given bleeding of unclear etiology we will temporarily hold. 8. CODE STATUS: DNR-CCA, no intubation status. Visit Charges Inpatient E&M: 25194 Subs Hosp L3
[2020-07-20] MEDS: oxyCODONE 5 MG Tablet PO ×2 (08:56→21:58)
[2020-07-20] MEDS: 0.9% Saline Lock 10 ML Syringe IV (08:57)
[2020-07-20] MEDS: Ondansetron 4 MG/2 ML Vial IV ×2 (08:57→21:51)
[2020-07-20] MEDS: Cholecalciferol (VIT D3) 25 MCG TABLET (1,000 UNITS) 250 MCG PO (09:07)
[2020-07-20] MEDS: Enoxaparin 40 MG/0.4 ML Syringe SC (09:07)
[2020-07-20] MEDS: Tamoxifen 10 MG Tablet 20 MG PO (09:08)
[2020-07-20] MEDS: Senna/Docusate Sodium 1 Tablet PO ×2 (09:15→21:59)
[2020-07-20] MEDS: Polyethylene Glycol 3350 17 GM PACKET PO (09:15)
[2020-07-20] MEDS: Psyllium 1 PACKET PO (09:15)
--- NOTE | 2020-07-20 09:20 | CASEMGMT ---
RN told DAYDAY that patient would like to go to TCU. DAYDAY spoke with Cortney and she would have a bed for patient. DAYDAY met with patient, introduced self as well as role at [facility]. SW confirmed she would like to go to TCU. DAYDAY explained therapy will see her and then everything will be submitted to insurance. She will wait here until we get approval. DAYDAY told her it is possible she could be here through the weekend. Plan: d/c to [facility] TCU pending pre-cert. Doreen STYLES
[2020-07-20 11:59] LABS: Pathologist Review Reviewed
[2020-07-20] MEDS: Bisacodyl 10 MG Suppository RC (15:00)
--- NOTE | 2020-07-20 15:42 | CT_ITS ---
STUDY: CT RIGHT FEMUR WITH CONTRAST REASON FOR EXAM: Female, 54 years old. Swollen right knee. Recent femur fracture. Question hemorrhage. RADIATION DOSAGE (If Supplied By Facility): CTDIvol = ( 15.43 ) mGy, DLP = ( 791.37 ) mGycm TECHNIQUE: Transaxial CT imaging of the femur was performed post contrast administration. The examination was performed with intravenous administration of IV 100mL Isovue-370. Sagittal and coronal images were reconstructed. Individualized dose optimization techniques were used for this CT. COMPARISON: None. FINDINGS: The distal femoral fracture is incompletely visualized as the anterior knee is not included on the current exam. There is evidence of an impacted fracture of the distal diametaphysis. The fracture does not appear to extend into the knee joint. Degenerative changes of the hip and knee are noted. There is low attenuation within the soft tissues surrounding the quadriceps musculature suggesting intramuscular hemorrhage. There is no distinct hematoma. There is no suprapatellar joint effusion. Fluid is seen in the posterior joint space at the level of the femoral condyles. The musculature of the upper calf appears normal. There is no enhancing abnormality. No evidence of active extravasation of contrast material. The vasculature is intact. CT/Extremity Lower WITH Contrast IMPRESSION: 1. Distal femoral fracture 2. Low attenuation throughout the quadriceps musculature suggesting possible hemorrhage. There is no distinct hematoma or evidence of active bleed. 3. Minimal posterior joint effusion. Electronically Signed: Jc Cardenas DO at 16:47 EDT Tel [phone], Service support ,
[2020-07-20] MEDS: 0.9% Normal Saline 1,000 ML 100 ML IV (17:41)
[2020-07-20] MEDS: Ceftriaxone 1 GM/50 ML BAG IV (22:04)
[2020-07-20] MEDS: DALFAMPRIDINE 10 MG TAB.ER.12H PO (22:43)
[2020-07-21] MEDS: 0.9% Normal Saline 1,000 ML 100 ML IV ×2 (03:16→16:48)
[2020-07-21 03:47] VITALS: BP 106/52; PULSE 72; RESP 16; TEMP 37.3; O2SAT 95
--- NOTE | 2020-07-21 06:23 | PN.HOSP_ITS ---
Subjective Subjective: Patient with no acute events overnight per self and per nursing report. Patient right brace readjusted per orthopedic surgery today and evaluation performed. Orthopedic surgery consulted the day prior secondary to notable extremity edema with CT with noted distal femoral fracture with low- attenuation throughout the quadriceps musculature suggestive of hemorrhage but no distinct hematoma or active bleed with a minimal posterior joint effusion. Orthopedic surgery also placed skin parameters for staff. Patient notes currently pain improved and rating it 2-3 out of 10 but recently manipulated by orthopedic surgery. Patient also admits recent bowel movement and her stomach is feeling well and is amenable to ongoing aggressive bowel regimen with de- escalation pending stool responses. Patient remains amenable for TCU and likely will not have precertification until Thursday at least. Repeat hemoglobin revi ewed and was noted to be 8.3, stabilized with stable vital signs. Patient denies fevers, chills, nausea, emesis, abdominal pain, chest pain or dyspnea. Objective Data Objective Data Vital Signs: Vital Signs Temp Pulse Resp BP Pulse Ox 99.1 F 72 16 106/52 L 95 07/21/20 03:47 07/21/20 03:47 07/21/20 03:47 07/21/20 03:47 07/21/20 03:47 Oxygen Delivery Method Room Air Weight: 114 lb 3.191 oz Body Mass Index (BMI) 17.9 Intake & Output: Intake and Output for Last 24 Hours 07/19/20 07/20/20 07/21/20 23:59 23:59 23:59 Intake Total 1000 / 1000 2911.25 / 3311.25 1358.33 / 1358.33 Output Total 2130 / 2555 425 / 425 Balance 1000 / 1000 781.25 / 756.25 933.33 / 933.33 Lab / Micro Data Result Diagrams: 07/21/20 07:47 07/21/20 07:47 Labs: Laboratory Results - last 24 hr 07/19/20 07/20/20 20:50 06:12 Diff Path Review Reviewed Sodium 141 Potassium 3.6 Chloride 110 H Carbon Dioxide 26.0 Anion Gap 5 BUN 9 Creatinine 0.36 L Estim Creat Clear Calc 146.09 Est GFR (MDRD) Af Amer 244 Est GFR (MDRD) Non-Af 202 BUN/Creatinine Ratio 25.3 H Glucose 101 Calcium 8.0 L Radiography Diagnostic Testing: Radiology Impression Lower Extremity CT 07/20/20 15:42 IMPRESSION: 1. Distal femoral fracture 2. Low attenuation throughout the quadriceps musculature suggesting possible hemorrhage. There is no distinct hematoma or evidence of active bleed. 3. Minimal posterior joint effusion. Electronically Signed: Jc Cardenas DO at 16:47 EDT Tel [phone], Service support , ADDENDUM: 07/20/20 1659 Physical Exam Narrative Physical Examination: General: awake, alert, oriented x 3 and cooperative, seated upright in PCU bed in no apparent distress, recent orthopedic surgery readjustment of brace, still extremity swelling especially at the knee. Skin: normal color, turgor, no icterus, cyanosis, right lower extremity with brace in place. HEENT: AT/NC, EOMI, PERRLA, MMM. Lungs: Mildly diminished, > BL bases, no rales, ronchi or wheezing. Heart: Regular rate and rhythm; no gallop, rub audible. Abdomen: soft, thin habitus, NTTP, nondistended, improved appearance, normalized bowel sounds. Extremities: no cyanosis or clubbing, right lower extremity with brace in place, still edematous knee, contractures present, worse left lower extremity with MS. Neurological: patient awake, alert, oriented as noted; cognitive function intact; pupils equally reactive to light and accomodation; cranial nerves II-XII grossly normal, moving upper extremities, severe limitations lower extremities with contractures, right lower extremity brace status post fracture with multiple sclerosis, strength accordingly severely global decreased. Psychiatric: affect appears improved, more calm today, no history of anxiety or depression. Assessment & Plan Assessment/Plan (1) Femur fracture, right: QUALIFIERS: Encounter type: subsequent encounter Femur location: unspecified portion of femur Fracture type: closed (2) UTI (urinary tract infection): QUALIFIERS: Urinary tract infection type: acute cystitis Hematuria presence: with hematuria Qualified Code(s): N30.01 - Acute cystitis with hematuria PLAN: The patient is a 54 y/o F w/ PMHx: Hx of Breast CA s/p radiation and mastectomy, Chronic constipation, MS w/ wheelchair bounds status w/ self catheterization needs and BL LE contractures, Chronic anemia who presents to the [facility] ED on 07/19/20 with history of recent fall 2 days prior to presentation while attempting to transfer from her wheelchair with right femur fracture with outpatient orthopedic surgery evaluation with ongoing right lower extremity and hip discomfort, difficulty self cathing secondary to her debilities and acute on chronic constipation prompting ED evaluation. 1. Acute Complicated Urinary Tract Infection with outpatient self- catheterization regimen: Admitted as MS status, currently in PCU, kaye placed in the ED, UA upon ED evaluation remarkable, pending UCx, monitor I/Os, continue IV Rocephin w/ transition as able pending sensitivities and speciation. Given presentation with UTI, right recent femur fracture and inability to have appropriate care at home at this time patient amenable to TCU transition. Case management aware. PT/OT consulted and following. Would not be able to start pre-certification until Thursday. 2. Recent Acute R Femur fracture w/ associated acute blood loss anemia, normoc ytic new onset anemia: Patient not surgical candidate secondary to poor bone quality per orthopedic surgery, Dr. Valdez with whom she is following, brace in place, will continue, nonweightbearing with history of multiple sclerosis with lower extremity contractures, ice and elevation right lower extremity if able, as needed oral and IV if necessary pain regimen. 07/17/20 Plain film w/ nondisplaced supracondylar fracture of the distal femur with overlying soft tissue swelling and joint effusion. As noted normocytic anemia presentation, not noted in prior labs, Hgb admission 10.6-->07/20/2020 8.1-->07/21/20 Hgb 8.3, stablized. Patient with no acute events overnight per self and per nursing report. 07/20/20 CT RLE w/ contrast obtained w/ distal femoral fracture with low- attenuation throughout the quadriceps musculature suggestive of hemorrhage but no distinct hematoma or active bleed with a minimal posterior joint effusion. Discussed case with Orthopedic surgery, consulted and following with alteration of her brace and skin parameters per their discretion. Continued conservative plan as poor surgical candidate per discussion with Dr. Reeves. 3. Acute on chronic constipation: Patient with significant constipation history likely secondary to underlying multiple sclerosis, does not take routine aggressive bowel regimen, continue daily MiraLAX, Metamucil, senna/docusate with rectal stimulation and per rectum suppositories to assist with hold if loose stools. 4. History of Breast CA: Patient per Oncology with history of pathologic stage IIA (pT1b (m) pN1a Mx) grade 2 invasive lobular carcinoma (ER >95%, FL >99%, Her2 1+ IHC) s/p breast MRI (09/24/17) and left mastectomy with SLNBx without completion of axillary dissection w/ 11/26/17 - 01/06/18 s/p radiation, removal of the bilateral fallopian tubes and ovaries on 01/21/18, maintained on tamoxifen. 5. Multiple sclerosis with significant debilities: Patient with bilateral lower extremity severe weakness, contractures, wheelchair-bound, continue home dalfampridine and PRN baclofen regimen. Bowel aggressive regimen as noted above, kaye placement while she cannot self cath acutely but will need to transition. Planned TCU transition once precertification obtained, will not start until Thursday. 6. DVT prophylaxis: SCDs if able however given contractures and right knee/lower extremity brace this will be difficult, currently on Lovenox however given bleeding of unclear etiology we will temporarily hold. 7. CODE STATUS: DNR-CCA, no intubation status. Visit Charges Inpatient E&M: 12921 Subs Hosp L2
[2020-07-21 07:34] VITALS: O2SAT 94
[2020-07-21 08:02] LABS: Absolute Lymphocyte Count 1.36 X10^3/uL (0.83-4.51); Absolute Neutrophil Count 3.4 X10^3/uL (2.0-7.7); Basophil# 0.02 X10^3/uL; Basophil% 0.4 % (0-1); Eosinophil# 0.18 X10^3/uL; Eosinophils% 3.2 % (0-5); Hematocrit 24.3 % (37-47); Hemoglobin 8.3 g/dL (12.0-15.0); Lymphocyte # 1.36 X10^3/ul (0.83-4.51); Lymphocyte % 24.5 % (19-41); Mean Corp Hgb Conc 34.2 g/dL (32-36); Mean Corpuscular Volume 102.5 fL (81-99); Mean Platelet Vol. 11.3 fl (6.2-12.0); Monocyte# 0.57 X10^3/uL; Monocyte% 10.3 % (0-10); NRBC Flagged by Analyzer 0.7 % (0-5); Neutrophil # 3.39 X10^3/uL (2.7-7.7); Neutrophil % 61.2 % (47-70); Platelet Count 183 K/mm3 (150-450); RBC Distribution Width CV 13.1 % (11.6-14.6); RBC Distribution Width SD 48.6 fl (35.1-43.9); Red Blood Count 2.37 M/mm3 (4.2-5.4); White Blood Count 5.5 K/mm3 (4.4-11.0)
--- NOTE | 2020-07-21 08:23 | PCM.CONS.GEN ---
Assessment & Plan Assessment/Plan (1) Lower leg edema: PLAN: As expected from distal femur fracture. (2) Constipation: QUALIFIERS: Constipation type: slow transit constipation Qualified Code(s): K59.01 - Slow transit constipation PLAN: Per primary service, consider relation to opioids (3) Femur fracture, right: QUALIFIERS: Encounter type: subsequent encounter Femur location: unspecified portion of femur Fracture type: closed PLAN: Natural history of the disease process and treatment options were discussed the patient for distal femur fracture operative and nonoperative treatments were again discussed. Patient has a number of compounding factors that make clinical decision making quite complex. Considering the patient has been nonweightbearing for 15 years this gives us multiple considerations 1 being that she has significant disuse osteopenia which is led to this low impact injury of the long bone. In addition fixation of the fracture is usually done for early mobilization which is not an advantage in this patient. Additionally patient has spasms and may complicate our ability to protect the fracture repair once completed. After discussion of operative and nonoperative treatments patient at this point is amenable to continuing with nonoperative care with additional assistance. At this point the hospitalist has arranged for the patient to be transferred to the transitional care unit upon discharge from the hospital. This will allow us to continue to attempt nonoperative care. However I did explain to the patient that the unstable fracture can be painful and if we are unable to treat her fracture appropriately fracture fixation for palliative reasons could be considered despite her high risk. Patient demonstrates an understanding of the treatment plan. In addition I recommended we attempt to place the leg in greater extension with the brace. She was able to relax so we obtained 20 to 30 degrees of flexion which may allow greater stabilization of the fracture. We will maintain this upon her discharge. She will need to have regular skin checks as she has spasms and will likely be fighting the brace causing areas of pressure. Considering her drop in hemoglobin at this time there has been no demonstrated active bleeding. Likely related to hemorrhaging around the fracture which is not excessive at this time. [facility] Office: (4) Multiple sclerosis: HPI Consult Data Date of Consult: 07/21/20 HPI Narrative HPI Narrative: CASPER CHRISTENSEN, is a 54 F with a history of multiple sclerosis who presents with a right distal femur fracture. Ms. Christensen has significant multiple sclerosis and has been wheelchair-bound for 15 years. She notes the only time she puts weight on her leg is when she does transfers and uses the restroom. She fell from her wheelchair 3 days ago and sustained her current fracture. She was initially evaluated in the emergency department and discharged with outpatient consultation with my partner. Patient has significant contractures. She takes baclofen orally for these contractures. She does have a medical marijuana card and uses CBD Gummies which helps her relax. She works with a therapist regularly at [facility] to maintain reduction of the contractures. In the office after a thorough discussion of these parameters as well as evaluation of the fracture and presumed bone quality nonoperative treatment was agreed upon. She was placed in a brace which is currently set around 90 degrees of flexion. 2 days after this she presented back to the emergency department with difficulty self catheterizing, swelling and continued pain associated with nausea and vomiting. Her hemoglobin precipitously dropped upon admission compared to historical hemoglobins she went from 12 to 10 and then hemoglobin of 8 the day after admission. CT scan was performed to evaluate for internal hematoma or hemorrhage. This morning she notes she feels better than upon admission. She is still concerned about her swelling. She is tolerating the brace well. ON LICENSE OF [facility] Medical History (Updated 07/20/20 @ 15:[address] Lizeth Archuleta MD) Breast cancer Multiple sclerosis Home Medications baclofen 10 mg tablet 10 mg PO Q4H 02/28/17 [History Last Taken 10/12/17 06:00] cholecalciferol (vitamin D3) 10,000 unit PO DAILY 10/09/17 [History Last Taken Unknown] acetaminophen 650 mg PO Q6H PRN PRN tab 10/13/17 [Rx Last Taken Unknown] dalfampridine 10 mg PO BID PRN PRN 03/24/18 [History Last Taken 07/19/20] natalizumab 300 mg IV QMONTH 07/26/18 [History Last Taken Unknown] tamoxifen 20 mg PO DAILY 90 Days #90 tab 03/06/20 [Rx Last Taken Unknown] hydrocodone-acetaminophen 1 tab PO Q6H PRN 07/19/20 [History Last Taken Unknown] Allergy/AdvReac Type Severity Reaction Status Date / Time ciprofloxacin Allergy Mild unknown Verified 07/19/20 19:13 sulfamethoxazole AdvReac Severe Nausea Verified 07/19/20 19:13 [From Bactrim] trimethoprim [From Bactrim] AdvReac Severe Nausea Verified 07/19/20 19:13 Family History Aunt Breast cancer Mother Diabetes Surgical History h/o tonsillectomy S/P left mastectomy (~10/12/17) Social History Smoking Status: Former smoker alcohol intake: never ROS Constitutional Constitutional: Reports systems reviewed and no addt'l complaints, except as documented Eyes Eyes: Reports systems reviewed and no addt'l complaints, except as documented ENT HEENT: Reports systems reviewed and no addt'l complaints, except as documented Cardiovascular Cardiovascular: Reports systems reviewed and no addt'l complaints, except as documented Respiratory/Chest Respiratory/Chest: Reports systems reviewed and no addt'l complaints, except as documented Gastrointestinal Gastrointestinal: Reports systems reviewed and no addt'l complaints, except as documented Genitourinary Genitourinary: Reports systems reviewed and no addt'l complaints, except as documented Musculoskeletal Musculoskeletal: Reports systems reviewed and no addt'l complaints, except as documented Integumentary Integumentary: Reports systems reviewed and no addt'l complaints, except as documented Neurologic Neurologic: Reports systems reviewed and no addt'l complaints, except as documented Psychiatric Psychiatric: Reports systems reviewed and no addt'l complaints, except as documented Endocrine Endocrinology: Reports systems reviewed and no addt'l complaints, except as documented Hematologic/Lymphatic Hematologic/Lymphatic: Reports systems reviewed and no addt'l complaints, except as documented Allergic/Immunologic Allergic/Immunologic: Reports systems reviewed and no addt'l complaints, except as documented Physical Exam Const alert, oriented x3, no apparent distress and healthy appearing General Appearance: cooperative, comfortable and well kempt HEENT normocephalic and head/scalp atraumatic Eyes PERRL Neck General: normal visual inspection; Negative for JVD Resp Effort and Inspection: able to speak in complete sentences; Negative for respiratory distress Cardio regular rate Jugular Venous Distention: JVD GI non-distended Extremity Extremity Narrative: Right lower extremity: Patient has skin intact. No erythema. She does have some mild ecchymosis over the medial thigh proximally. Moderate to large swelling of the knee no greater than expected for patient's presenting injury. Edema of the foot. Sensations intact light touch saphenous, sural, superficial peroneal, deep peroneal and tibial nerve distributions. Patient does have active contractures and spasms during examination. Currently the brace is on at 90 degrees of flexion. No apparent pressure sores from the brace at this time. Motors intact dorsiflexion EHL plantar flexion. 2+ DP pulses. Skin General Skin Exam: no breakdown Neuro oriented x3 and CN's II-XII intact bilaterally Neuro Narrative: Spasms on examination Lab / Micro Data Result Diagrams: 07/21/20 07:47 07/20/20 06:12 Labs: Laboratory Results - last 24 hr 07/19/20 07/21/20 20:50 07:47 WBC 5.5 RBC 2.37 L Hgb 8.3 L Hct 24.3 L MCV 102.5 H MCH 35.0 H MCHC 34.2 RDW Std Deviation 48.6 H RDW Coeff of Raisa 13.1 Plt Count 183 MPV 11.3 Immature Gran % (Auto) 0.400 Neut % (Auto) 61.2 Lymph % (Auto) 24.5 [place] % (Auto) 10.3 H Eos % (Auto) 3.2 Baso % (Auto) 0.4 Absolute Neuts (auto) 3.4 Absolute Lymphs (auto) 1.36 Nucleated RBC % 0.7 Diff Path Review Reviewed Radiology Impression Lower Extremity CT 07/20/20 15:42 IMPRESSION: 1. Distal femoral fracture 2. Low attenuation throughout the quadriceps musculature suggesting possible hemorrhage. There is no distinct hematoma or evidence of active bleed. 3. Minimal posterior joint effusion. Electronically Signed: Jc Cardenas DO at 16:47 EDT Tel [phone], Service support , ADDENDUM: 07/20/20 8948
[2020-07-21 08:32] LABS: ALB/GLOB Ratio 0.9 RATIO (0.9-2.4); AST(SGOT) 12 U/L (15-37); Alanine Aminotransfer ALT/SGPT 15 U/L (13-56); Albumin, Serum 2.5 g/dL (3.2-5.0); Alkaline Phosphatase 30 U/L (45-117); Anion Gap 7 (5-15); BUN 7 mg/dL (7-18); BUN/Creat Ratio 20.3 RATIO (10-20); Calcium,Total 8.1 mg/dL (8.5-10.1); Chloride 110 mmol/L (98-107); Creatinine, Serum 0.34 mg/dL (0.55-1.02); EST Glomerular Filtration Rate 210 mL/min (>60); Est Glom Filt Rate - Afr Amer 254 mL/min (>60); Estimated Creatinine Clearance 154.68 ml/min; Ferritin 385 ng/mL (8-252); Globulin 2.7 g/dL (2.2-4.2); Glucose 89 mg/dL (74-106); Iron 46 ug/dL (50-170); Iron Binding Capacity,Total 177 ug/dL (250-450); Potassium 3.5 mmol/L (3.5-5.1); Protein, Total 5.2 g/dL (6.4-8.2); Sodium Level 143 mmol/L (136-145)
[2020-07-21] MEDS: Baclofen 10 MG Tablet PO ×4 (09:08→20:35)
[2020-07-21] MEDS: DALFAMPRIDINE 10 MG TAB.ER.12H PO ×2 (09:10→22:25)
[2020-07-21] MEDS: Psyllium 1 PACKET PO (09:11)
[2020-07-21] MEDS: Senna/Docusate Sodium 1 Tablet PO ×2 (09:12→21:45)
[2020-07-21] MEDS: Cholecalciferol (VIT D3) 25 MCG TABLET (1,000 UNITS) 250 MCG PO (09:12)
[2020-07-21] MEDS: Tamoxifen 10 MG Tablet 20 MG PO (09:13)
[2020-07-21] MEDS: Polyethylene Glycol 3350 17 GM PACKET PO (09:13)
[2020-07-21 09:15] VITALS: BP 117/63; PULSE 77; RESP 16; TEMP 36.4; O2SAT 98
[2020-07-21] MEDS: oxyCODONE 5 MG Tablet PO ×2 (09:20→23:05)
[2020-07-21 15:45] VITALS: BP 105/55; PULSE 74; RESP 16; TEMP 36.5; O2SAT 99
[2020-07-21] MEDS: Bisacodyl 10 MG Suppository RC (16:12)
[2020-07-21 21:37] VITALS: BP 99/61; PULSE 77; RESP 16; TEMP 37.2; O2SAT 96
[2020-07-21] MEDS: Ceftriaxone 1 GM/50 ML BAG IV (21:44)
[2020-07-22] MEDS: Baclofen 10 MG Tablet PO ×6 (00:13→20:44)
[2020-07-22 03:40] VITALS: BP 98/48; PULSE 70; RESP 15; TEMP 37; O2SAT 96
[2020-07-22] MEDS: 0.9% Normal Saline 1,000 ML 100 ML IV ×2 (03:42→13:50)
--- NOTE | 2020-07-22 06:33 | PCM.PN.HOSP ---
Subjective Subjective: Patient with no acute events overnight per self and per nursing report. Patient seated upright this morning eating breakfast. She is in good spirits, pain controlled she notes especially since alteration of bracing and certain skin parameters per orthopedic surgery. Repeat hemoglobin today 7.6 but vital signs otherwise remained stable with chronic low blood pressure unchanged. Still awaiting urine culture. Patient denies fevers, chills, nausea, emesis, abdominal pain, chest pain or dyspnea. Objective Data Objective Data Vital Signs: Vital Signs Temp Pulse Resp BP Pulse Ox 98.6 F 70 15 98/48 L 96 07/22/20 03:40 07/22/20 03:40 07/22/20 03:40 07/22/20 03:40 07/22/20 03:40 Oxygen Delivery Method Room Air Weight: 114 lb 3.191 oz Body Mass Index (BMI) 17.9 Intake & Output: Intake and Output for Last 24 Hours 07/20/20 07/21/20 07/22/20 23:59 23:59 23:59 Intake Total 2911.25 / 3311.25 4086.66 / 4086.66 421.67 / 421.67 Output Total 2130 / 2555 2075 / 2075 400 / 400 Balance 781.25 / 756.25 201166 / 2010.66 21.67 / 21.67 Lab / Micro Data Result Diagrams: 07/22/20 05:25 07/22/20 05:25 Labs: Laboratory Results - last 24 hr 07/21/20 07/21/20 07:47 07:47 WBC 5.5 RBC 2.37 L Hgb 8.3 L Hct 24.3 L MCV 102.5 H MCH 35.0 H MCHC 34.2 RDW Std Deviation 48.6 H RDW Coeff of Raisa 13.1 Plt Count 183 MPV 11.3 Immature Gran % (Auto) 0.400 Neut % (Auto) 61.2 Lymph % (Auto) 24.5 [place] % (Auto) 10.3 H Eos % (Auto) 3.2 Baso % (Auto) 0.4 Absolute Neuts (auto) 3.4 Absolute Lymphs (auto) 1.36 Nucleated RBC % 0.7 Sodium 143 Potassium 3.5 Chloride 110 H Carbon Dioxide 26.0 Anion Gap 7 BUN 7 Creatinine 0.34 L Estim Creat Clear Calc 154.68 Est GFR (MDRD) Af Amer 254 Est GFR (MDRD) Non-Af 210 BUN/Creatinine Ratio 20.3 H Glucose 89 Calcium 8.1 L Iron 46 L TIBC 177 L Iron Saturation 26.0 Ferritin 385 H Total Bilirubin 0.80 AST 12 L ALT 15 Alkaline Phosphatase 30 L Total Protein 5.2 L Albumin 2.5 L Globulin 2.7 Albumin/Globulin Ratio 0.9 Folate 6.40 Physical Exam Narrative Physical Examination: General: awake, alert, oriented x 3 and cooperative, seated upright in PCU as medical surgical status, no acute distress, mildly improved edema to the right lower extremity, bracing in place. Skin: normal color, turgor, no icterus, cyanosis, right lower extremity with brace in place. HEENT: AT/NC, EOMI, PERRLA, MMM. Lungs: Mildly diminished, improved effort,> BL bases, no rales, ronchi or wheezing. Heart: Regular rate and rhythm; no gallop, rub audible. Abdomen: soft, thin habitus, NTTP, nondistended, normalized bowel sounds. Extremities: no cyanosis or clubbing, right lower extremity with brace in place, less edematous knee, chronic contractures as noted. Neurological: patient awake, alert, oriented as noted; cognitive function intact; pupils equally reactive to light and accomodation; cranial nerves II-XII grossly normal, moving upper extremities, severe limitations lower extremities with contractures, right lower extremity brace status post fracture with multiple sclerosis, strength accordingly severely global decreased. Psychiatric: affect appears normal, smiling, no history of anxiety or depression. Assessment & Plan Assessment/Plan (1) Femur fracture, right: QUALIFIERS: Encounter type: subsequent encounter Femur location: unspecified portion of femur Fracture type: closed (2) UTI (urinary tract infection): QUALIFIERS: Urinary tract infection type: acute cystitis Hematuria presence: with hematuria Qualified Code(s): N30.01 - Acute cystitis with hematuria PLAN: The patient is a 54 y/o F w/ PMHx: Hx of Breast CA s/p radiation and mastectomy, Chronic constipation, MS w/ wheelchair bounds status w/ self catheterization needs and BL LE contractures, Chronic anemia who presents to the [facility] ED on 07/19/20 with history of recent fall 2 days prior to presentation while attempting to transfer from her wheelchair with right femur fracture with outpatient orthopedic surgery evaluation with ongoing right lower extremity and hip discomfort, difficulty self cathing secondary to her debilities and acute on chronic constipation prompting ED evaluation. 1. Acute Complicated Urinary Tract Infection with outpatient self-catheterization regimen: Admitted as MS status, currently in PCU, kaye placed in the ED and will need to consider scheduled straight cathing with transition to TCU versus continued temporarily Kaye at her discharge, UA upon ED evaluation remarkable, still awaiting finalization of UCx, monitor I/Os, continue IV Rocephin w/ transition as able pending sensitivities and speciation. Given presentation with UTI, right recent femur fracture and inability to have appropriate care at home at this time patient amenable to TCU transition however will only be able to start precertification Thursday. 2. Recent Acute R Femur fracture w/ associated acute blood loss anemia, normocytic new onset anemia: Patient not surgical candidate secondary to poor bone quality per Dr. Valdez who she had seen outpatient recently. 07/17/20 Plain film w/ nondisplaced supracondylar fracture of the distal femur with overlying soft tissue swelling and joint effusion. 07/20/20 CT RLE w/ contrast obtained w/ distal femoral fracture with low-attenuation throughout the quadriceps musculature suggestive of hemorrhage but no distinct hematoma or active bleed with a minimal posterior joint effusion. Hgb admission 10.6-->07/20/2020 8.1-->07/21/20 Hgb 8.3-->07/22/20 Hgb 7.6, remains asymptomatic. Dr. Reeves consulted and following w/ recent alteration of her brace and skin parameters per their discretion. Continued conservative plan. 3. Acute on chronic constipation: Patient with significant constipation history likely secondary to underlying multiple sclerosis, does not take routine aggressive bowel regimen, continue daily MiraLAX, Metamucil, senna/docusate with rectal stimulation and per rectum suppositories to assist with hold if loose stools. 4. History of Breast CA: Patient per Oncology with history of pathologic stage IIA (pT1b (m) pN1a Mx) grade 2 invasive lobular carcinoma (ER >95%, [place] >99%, Her2 1+ IHC) s/p breast MRI (09/24/17) and left mastectomy with SLNBx without completion of axillary dissection w/ 11/26/17 - 01/06/18 s/p radiation, removal of the bilateral fallopian tubes and ovaries on 01/21/18, maintained on tamoxifen. 5. Multiple sclerosis with significant debilities: Patient with bilateral lower extremity severe weakness, contractures, wheelchair-bound, continue home dalfampridine and PRN baclofen regimen. Bowel aggressive regimen as noted above, kaye placement while she cannot self cath acutely but will need to transition. Planned TCU transition once precertification obtained, will not start until Thursday. 6. DVT prophylaxis: SCDs if able however given contractures and right knee/lower extremity brace this will be difficult, holding chemoprophylaxis given anemia as noted. 7. CODE STATUS: DNR-CCA, no intubation status. Visit Charges Inpatient E&M: 13611 Subs Hosp L2
[2020-07-22 06:50] LABS: Absolute Lymphocyte Count 1.41 X10^3/uL (0.83-4.51); Absolute Neutrophil Count 2.8 X10^3/uL (2.0-7.7); Basophil# 0.03 X10^3/uL; Basophil% 0.6 % (0-1); Eosinophil# 0.26 X10^3/uL; Eosinophils% 5.2 % (0-5); Hematocrit 23.3 % (37-47); Hemoglobin 7.6 g/dL (12.0-15.0); Lymphocyte # 1.41 X10^3/ul (0.83-4.51); Lymphocyte % 28.1 % (19-41); Mean Corp Hgb Conc 32.6 g/dL (32-36); Mean Corpuscular Hgb 33.3 pg (27.0-32.0); Mean Corpuscular Volume 102.2 fL (81-99); Mean Platelet Vol. 11.7 fl (6.2-12.0); Monocyte# 0.53 X10^3/uL; Monocyte% 10.6 % (0-10); NRBC Flagged by Analyzer 0.8 % (0-5); Neutrophil # 2.77 X10^3/uL (2.7-7.7); Neutrophil % 55.3 % (47-70); Platelet Count 195 K/mm3 (150-450); RBC Distribution Width CV 13.2 % (11.6-14.6); Red Blood Count 2.28 M/mm3 (4.2-5.4)
--- NOTE | 2020-07-22 06:52 | NURSING ---
Pt given baclofen late this morning per patient request. Pt requested to not be woken up for medications if she was asleep. When medication was due, patient was asleep. When pt woke up, she request medication d/t muscle spasms.
[2020-07-22 07:20] LABS: ALB/GLOB Ratio 0.9 RATIO (0.9-2.4); AST(SGOT) 8 U/L (15-37); Alanine Aminotransfer ALT/SGPT 13 U/L (13-56); Albumin, Serum 2.3 g/dL (3.2-5.0); Alkaline Phosphatase 28 U/L (45-117); Anion Gap 9 (5-15); BUN 8 mg/dL (7-18); BUN/Creat Ratio 25.7 RATIO (10-20); Calcium,Total 7.8 mg/dL (8.5-10.1); Chloride 108 mmol/L (98-107); Creatinine, Serum 0.31 mg/dL (0.55-1.02); EST Glomerular Filtration Rate 236 mL/min (>60); Est Glom Filt Rate - Afr Amer 285 mL/min (>60); Estimated Creatinine Clearance 169.65 ml/min; Globulin 2.5 g/dL (2.2-4.2); Glucose 89 mg/dL (74-106); Potassium 3.7 mmol/L (3.5-5.1); Protein, Total 4.8 g/dL (6.4-8.2); Sodium Level 142 mmol/L (136-145)
[2020-07-22] MEDS: Acetaminophen 325 MG Tablet 650 MG PO ×2 (07:50→16:54)
[2020-07-22 09:40] VITALS: BP 97/59; PULSE 76; RESP 18; TEMP 36.9; O2SAT 98
[2020-07-22] MEDS: DALFAMPRIDINE 10 MG TAB.ER.12H PO ×2 (10:13→20:44)
[2020-07-22] MEDS: Cholecalciferol (VIT D3) 25 MCG TABLET (1,000 UNITS) 250 MCG PO (10:14)
[2020-07-22] MEDS: Senna/Docusate Sodium 1 Tablet PO ×2 (10:16→22:21)
[2020-07-22] MEDS: Tamoxifen 10 MG Tablet 20 MG PO (10:16)
[2020-07-22] MEDS: Polyethylene Glycol 3350 17 GM PACKET PO (10:17)
[2020-07-22] MEDS: Psyllium 1 PACKET PO (10:18)
[2020-07-22] MEDS: Bisacodyl 10 MG Suppository RC (13:57)
[2020-07-22 15:40] VITALS: BP 113/66; PULSE 73; RESP 18; TEMP 36.6; O2SAT 100
[2020-07-22 20:36] VITALS: BP 109/39; PULSE 83; RESP 15; TEMP 37.1; O2SAT 97
[2020-07-22] MEDS: oxyCODONE 5 MG Tablet PO (22:21)
[2020-07-22] MEDS: Ceftriaxone 1 GM/50 ML BAG IV (22:21)
[2020-07-23] MEDS: 0.9% Normal Saline 1,000 ML 100 ML IV ×2 (00:25→10:31)
[2020-07-23] MEDS: Baclofen 10 MG Tablet PO ×4 (01:00→12:46)
[2020-07-23 02:45] VITALS: BP 101/53; PULSE 74; RESP 15; TEMP 36.8; O2SAT 96
[2020-07-23 03:50] VITALS: RESP 15
[2020-07-23 06:32] LABS: Absolute Neutrophil Count 3.1 X10^3/uL (2.0-7.7); Basophil# 0.02 X10^3/uL; Basophil% 0.4 % (0-1); Eosinophil# 0.31 X10^3/uL; Eosinophils% 5.8 % (0-5); Hematocrit 23.9 % (37-47); Hemoglobin 7.9 g/dL (12.0-15.0); Lymphocyte % 24.5 % (19-41); Mean Corp Hgb Conc 33.1 g/dL (32-36); Mean Corpuscular Hgb 33.8 pg (27.0-32.0); Mean Corpuscular Volume 102.1 fL (81-99); Mean Platelet Vol. 11.2 fl (6.2-12.0); Monocyte# 0.52 X10^3/uL; Monocyte% 9.8 % (0-10); NRBC Flagged by Analyzer 0.6 % (0-5); Neutrophil # 3.14 X10^3/uL (2.7-7.7); Neutrophil % 59.3 % (47-70); Platelet Count 216 K/mm3 (150-450); RBC Distribution Width CV 12.8 % (11.6-14.6); RBC Distribution Width SD 47.8 fl (35.1-43.9); Red Blood Count 2.34 M/mm3 (4.2-5.4); White Blood Count 5.3 K/mm3 (4.4-11.0)
[2020-07-23] MEDS: Ondansetron 4 MG/2 ML Vial IV (06:33)
[2020-07-23] MEDS: Acetaminophen 325 MG Tablet 650 MG PO ×2 (06:35→12:44)
[2020-07-23 07:06] LABS: ALB/GLOB Ratio 0.9 RATIO (0.9-2.4); AST(SGOT) 14 U/L (15-37); Alanine Aminotransfer ALT/SGPT 19 U/L (13-56); Albumin, Serum 2.4 g/dL (3.2-5.0); Alkaline Phosphatase 30 U/L (45-117); Anion Gap 5 (5-15); BUN 6 mg/dL (7-18); BUN/Creat Ratio 21.1 RATIO (10-20); Calcium,Total 8.1 mg/dL (8.5-10.1); Chloride 110 mmol/L (98-107); Creatinine, Serum 0.28 mg/dL (0.55-1.02); EST Glomerular Filtration Rate 262 mL/min (>60); Est Glom Filt Rate - Afr Amer 317 mL/min (>60); Estimated Creatinine Clearance 187.83 ml/min; Globulin 2.8 g/dL (2.2-4.2); Glucose 94 mg/dL (74-106); Potassium 3.7 mmol/L (3.5-5.1); Protein, Total 5.2 g/dL (6.4-8.2); Sodium Level 140 mmol/L (136-145)
[2020-07-23 08:35] LABS: Vitamin B12 365 pg/mL (211-911)
[2020-07-23 08:45] VITALS: BP 100/57; PULSE 82; RESP 16; TEMP 36.4; O2SAT 96
[2020-07-23] MEDS: DALFAMPRIDINE 10 MG TAB.ER.12H PO (08:52)
[2020-07-23] MEDS: Psyllium 1 PACKET PO (08:52)
[2020-07-23] MEDS: Tamoxifen 10 MG Tablet 20 MG PO (08:53)
[2020-07-23] MEDS: Cholecalciferol (VIT D3) 25 MCG TABLET (1,000 UNITS) 250 MCG PO (08:55)
[2020-07-23] MEDS: Senna/Docusate Sodium 1 Tablet PO (08:56)
[2020-07-23] MEDS: Polyethylene Glycol 3350 17 GM PACKET PO (08:57)
--- NOTE | 2020-07-23 11:29 | CASEMGMT ---
SW received call from [facility] and patient was approved for TCU. DAYDAY notified physician, RN, executive secretary social welfare, and patient. Plan: d/c to [facility] TCU under skilled level of care. Doreen STYLES
--- NOTE | 2020-07-23 12:42 | TREXTCAR_ITS ---
Diet 07/21/20 08:27 Diet: Regular - General Is pt able to select menu?: Yes Problem/Diagnosis (1) Femur fracture, right: Status: Acute (2) UTI (urinary tract infection): Status: Acute Allergies/Procedures Done in Hospital Allergies ciprofloxacin Allergy (Mild, Verified 07/19/20 19:13) unknown sulfamethoxazole [From Bactrim] Adverse Reaction (Severe, Verified 07/19/20 19:13) Nausea trimethoprim [From Bactrim] Adverse Reaction (Severe, Verified 07/19/20 19:13) Nausea Type of Care/Length of Stay Estimated LOS: Convalescent Care Less Than 30 days Type of Care Needed: Skilled Rehab Potential: Fair Prognosis: Fair Additional Orders/Day of Discharge Day of Discharge: 07/23/20 Dietary and Speech Recommendations Dietitian Recommendations/Changes: continue regular diet as tolerated; ONS if PO at meals fails. Discharge Plan Admission Admit Date/Time: 07/19/20 23:39 Attending Provider: George Eric Primary Care Provider: Mario Soliz Consulting Providers: Preston Reeves Discharge Orders/Prescriptions Prescriptions: New oxycodone 5 mg Tablet 5 mg PO Q6H PRN (Reason: Pain Score 4-5) 3 Days Qty: 12 RF: 0 polyethylene glycol 3350 17 gram Powder In Packet 17 g PO DAILY Qty: 0 RF: 0 sennosides-docusate sodium [Stool Softener-Stimulant Laxat] 8.6-50 mg Tablet 1 tab PO BID Qty: 0 RF: 0 Metamucil Fiber Singles 3.4 gram Powder In Packet 1 packet PO DAILY Qty: 0 RF: 0 nitrofurantoin monohyd/m-cryst [Macrobid] 100 mg capsule 100 mg PO BID Qty: 10 RF: 0 Discontinued natalizumab 300 MG/15 ML solution 300 mg IV QMONTH RF: 0 hydrocodone-acetaminophen 5-325 mg Tablet 1 tab PO Q6H PRN (Reason: Pain) RF: 0 No Action baclofen 10 mg tablet 10 mg PO Q4H RF: 0 cholecalciferol (vitamin D3) 10,000 UNIT capsule 10,000 unit PO DAILY RF: 0 acetaminophen 325 MG tablet 650 mg PO Q6H PRN PRN (Reason: Pain) RF: 0 dalfampridine 10 MG tablet extended release 12 hr 10 mg PO BID PRN PRN (Reason: MS) RF: 0 tamoxifen 20 MG tablet 20 mg PO DAILY 90 Days Qty: 90 RF: 3 Referrals / Follow Up: Mario Soliz DO [Primary Care Provider] - Disposition Disposition (needs filled in before D/C Order can be placed[facility]
[2020-07-23] MEDS: Bisacodyl 10 MG Suppository RC (12:45)
--- NOTE | 2020-07-23 12:50 | PCM.DC.SUM ---
Providers Date of Admission: 07/19/20 Primary Care Physician: Dr. Mario Soliz, DO Consultations 07/20/20 16:33 Consult: Orthopedics Routine Consulting Provider: Preston Reeves Reason for Consult: R distal femur fracture EMERGENT Consult: No MD Notified: Yes Date Notified:: 07/20/20 Time Notified: 16:33 Method of Notification: called Reason For Visit: RIGHT FEMUR FRACTURE, UTI Diagnosis Discharge Diagnosis (1) Femur fracture, right: Status: Acute Code(s): S72.91XA - Unspecified fracture of right femur, initial encounter for closed fracture Qualifiers: Encounter type: subsequent encounter Femur location: unspecified portion of femur Fracture type: closed (2) UTI (urinary tract infection): Status: Acute Code(s): N39.0 - Urinary tract infection, site not specified Qualifiers: Urinary tract infection type: acute cystitis Hematuria presence: with hematuria Qualified Code(s): N30.01 - Acute cystitis with hematuria Medications at Discharge Home Medications baclofen 10 mg tablet 10 mg PO Q4H 02/28/17 cholecalciferol (vitamin D3) 10,000 unit PO DAILY 10/09/17 acetaminophen 650 mg PO Q6H PRN PRN tab 10/13/17 dalfampridine 10 mg PO BID PRN PRN 03/24/18 tamoxifen 20 mg PO DAILY 90 Days #90 tab 03/06/20 nitrofurantoin monohyd/m-cryst [Macrobid] 100 mg PO BID #10 cap 07/23/20 oxycodone 5 mg PO Q6H PRN 3 Days #12 tab 07/23/20 polyethylene glycol 3350 17 g PO DAILY #0 ea 07/23/20 psyllium husk (aspartame) [Metamucil Fiber Singles] 1 packet PO DAILY #0 ea 07/23/20 sennosides-docusate sodium [Stool Softener-Stimulant Laxat] 1 tab PO BID #0 tab 07/23/20 Hospital Course Operations None Procedures None Summary of Care Provided Minutes Spent on Discharge: 32 Hospital Course: 1. Acute Complicated Urinary Tract Infection with outpatient self-catheterization regimen: Admitted as MS status, currently in PCU, kaye placed in the ED and will need to consider scheduled straight cathing with transition to TCU versus continued temporarily Kaye at her discharge, UA upon ED evaluation remarkable, still awaiting finalization of UCx, monitor I/Os, continue IV Rocephin w/ transition as able pending sensitivities and speciation. Given presentation with UTI, right recent femur fracture and inability to have appropriate care at home at this time patient amenable to TCU transition however will only be able to start precertification Thursday. Macrobid for 5 more days. 2. Recent Acute R Femur fracture w/ associated acute blood loss anemia, normocytic new onset anemia: Patient not surgical candidate secondary to poor bone quality per Dr. Valdez who she had seen outpatient recently. 07/17/20 Plain film w/ nondisplaced supracondylar fracture of the distal femur with overlying soft tissue swelling and joint effusion. 07/20/20 CT RLE w/ contrast obtained w/ distal femoral fracture with low-attenuation throughout the quadriceps musculature suggestive of hemorrhage but no distinct hematoma or active bleed with a minimal posterior joint effusion. Hgb admission 10.6-->07/20/2020 8.1-->07/21/20 Hgb 8.3-->07/22/20 Hgb 7.6, remains asymptomatic. Dr. Reeves consulted and following w/ recent alteration of her brace and skin parameters per their discretion. Continued conservative plan. 3. Acute on chronic constipation: Patient with significant constipation history likely secondary to underlying multiple sclerosis, does not take routine aggressive bowel regimen, continue daily MiraLAX, Metamucil, senna/docusate with rectal stimulation and per rectum suppositories to assist with hold if loose stools. 4. History of Breast CA: Patient per Oncology with history of pathologic stage IIA (pT1b (m) pN1a Mx) grade 2 invasive lobular carcinoma (ER >95%, VA >99%, Her2 1+ IHC) s/p breast MRI (09/24/17) and left mastectomy with SLNBx without completion of axillary dissection w/ 11/26/17 - 01/06/18 s/p radiation, removal of the bilateral fallopian tubes and ovaries on 01/21/18, maintained on tamoxifen. 5. Multiple sclerosis with significant debilities: Patient with bilateral lower extremity severe weakness, contractures, wheelchair-bound, continue home dalfampridine and PRN baclofen regimen. Bowel aggressive regimen as noted above, kaye placement while she cannot self cath acutely but will need to transition. Planned TCU transition once precertification obtained, will not start until Thursday. 6. DVT prophylaxis: SCDs if able however given contractures and right knee/lower extremity brace this will be difficult, holding chemoprophylaxis given anemia as noted. Physical Exam Const alert and oriented x3 Psych affect normal ABG / Lab / Microbiology Data Result Diagrams: 07/23/20 06:04 07/23/20 06:04 Laboratory: Laboratory Results - last 24 hr 07/21/20 07/23/20 07/23/20 07:47 06:04 06:04 WBC 5.3 RBC 2.34 L Hgb 7.9 L Hct 23.9 L MCV 102.1 H MCH 33.8 H MCHC 33.1 RDW Std Deviation 47.8 H RDW Coeff of Raisa 12.8 Plt Count 216 MPV 11.2 Immature Gran % (Auto) 0.200 Neut % (Auto) 59.3 Lymph % (Auto) 24.5 [place] % (Auto) 9.8 Eos % (Auto) 5.8 H Baso % (Auto) 0.4 Absolute Neuts (auto) 3.1 Absolute Lymphs (auto) 1.30 Nucleated RBC % 0.6 Sodium 140 Potassium 3.7 Chloride 110 H Carbon Dioxide 25.0 Anion Gap 5 BUN 6 L Creatinine 0.28 L Estim Creat Clear Calc 187.83 Est GFR (MDRD) Af Amer 317 Est GFR (MDRD) Non-Af 262 BUN/Creatinine Ratio 21.1 H Glucose 94 Calcium 8.1 L Total Bilirubin 0.70 AST 14 L ALT 19 Alkaline Phosphatase 30 L Total Protein 5.2 L Albumin 2.4 L Globulin 2.8 Albumin/Globulin Ratio 0.9 Vitamin B12 365 Microbiology: Microbiology 07/19/20 20:55 Urine Culture - Final Urine Catheter - Catheter Yeast, not Kayley albicans Microbiology 07/19/20 20:55 Urine Catheter - Catheter Urine Culture - Final Yeast, not Kayley albicans Meaningful Use Info Meaningful Use Diagnoses (Choose all that apply): None applicable Discharge Plan Admission Admit Date/Time: 07/19/20 23:39 Attending Provider: George Eric Primary Care Provider: Mario Soliz Consulting Providers: Preston Reeves Discharge Orders/Prescriptions Prescriptions: New oxycodone 5 mg Tablet 5 mg PO Q6H PRN (Reason: Pain Score 4-5) 3 Days Qty: 12 RF: 0 polyethylene glycol 3350 17 gram Powder In Packet 17 g PO DAILY Qty: 0 RF: 0 sennosides-docusate sodium [Stool Softener-Stimulant Laxat] 8.6-50 mg Tablet 1 tab PO BID Qty: 0 RF: 0 Metamucil Fiber Singles 3.4 gram Powder In Packet 1 packet PO DAILY Qty: 0 RF: 0 nitrofurantoin monohyd/m-cryst [Macrobid] 100 mg capsule 100 mg PO BID Qty: 10 RF: 0 Discontinued natalizumab 300 MG/15 ML solution 300 mg IV QMONTH RF: 0 hydrocodone-acetaminophen 5-325 mg Tablet 1 tab PO Q6H PRN (Reason: Pain) RF: 0 No Action baclofen 10 mg tablet 10 mg PO Q4H RF: 0 cholecalciferol (vitamin D3) 10,000 UNIT capsule 10,000 unit PO DAILY RF: 0 acetaminophen 325 MG tablet 650 mg PO Q6H PRN PRN (Reason: Pain) RF: 0 dalfampridine 10 MG tablet extended release 12 hr 10 mg PO BID PRN PRN (Reason: MS) RF: 0 tamoxifen 20 MG tablet 20 mg PO DAILY 90 Days Qty: 90 RF: 3 Referrals / Follow Up: Mario Soliz DO [Primary Care Provider] - Within 2 Weeks Disposition Disposition (needs filled in before D/C Order can be placed): [facility] Facility Visit Charges Inpatient E&M: 25406 Disch Hosp
--- NOTE | 2020-07-23 13:22 | CASEMGMT ---
[facility] palliative screening completed and pt does qualify for palliative at this time. Plan is for pt to discharge to TCU today, so Miriam Pretty SW, to be updated on palliative qualification. Raul HENRY CM
[2020-07-23 14:16] VITALS: BP 100/57; PULSE 82; RESP 16; TEMP 36.4; O2SAT 96
--- NOTE | 2020-07-23 14:46 | CASEMGMT ---
SW went to patient's room to see if SW went over visitation in TCU. SW did not so SW explained to her that since she has not had her COVID vaccines she will have to quarantine for 14 days and that means no visitors at that time. After that visits are scheduled. Doreen Darden HUMAN RESOURCES BENEFITS SPECIALIST JENSEN
--- NOTE | 2020-07-23 15:17 | CHAPLAIN ---
Type of Pastoral Visit _x__ Initial Visit ___ Follow-up Visit ___ On-call Visit ___ General Patient Visit ___ Spiritual Assessment ___ Family Conference ___ Bereavement ___ Rapid Response ___ Code Blue ___ Other (describe below) Pastoral Care Referral From _x__ Patient ___ Family ___ Nurse ___ Physician ___ Edge Bander Operator ___ Electrical Project Engineer ___ Other (describe below) Sacrament/Intervention _x__ Active listening ___ Anointing ___ Holiness ___ Bereavement ___ Communion ___ Steph exploration ___ _x__ Life review _x__ Prayer ___ Reconciliation ___ Sacrament of Sick _x__ Supportive presence ___ Wedding ___ Other (describe below) Pastoral Comments patient remembers this process specialist from when her was admitted for treatment here; pt gives updates and reason for her admission; pt is concerned about her who has cancer; pt and spouse rely on each other; pt will to go TCU and is thankful for that decision; pt would like prayer support and future visits
--- NOTE | 2020-07-23 15:29 | NURSING ---
Report called to Nurse Faria for pt transfer to TCU.
== END 2020-07-23 16:25 | disposition skilled nursing facility (03) | DRG 699 ==
LOC: ED 20:42 → PCU 07-20 00:01
PROVIDERS: Family Medicine; Admitting Provider Hospitalist; Emergency Provider Emergency Medicine; PCP Family Medicine
DX: T83.511A Infection and inflammatory reaction due to indwelling urethral catheter, initial encounter (principal); S42.414A Nondisplaced simple supracondylar fracture without intercondylar fracture of right humerus, initial encounter for closed fracture; N30.01 Acute cystitis with hematuria; D62 Acute posthemorrhagic anemia; D64.9 Anemia, unspecified; G35 Multiple sclerosis; K59.09 Other constipation; I95.89 Other hypotension; Z66 Do not resuscitate; Z85.3 Personal history of malignant neoplasm of breast; Z87.891 Personal history of nicotine dependence; Z99.3 Dependence on wheelchair; Z79.899 Other long term (current) drug therapy; W05.0XXA Fall from non-moving wheelchair, initial encounter; Z90.12 Acquired absence of left breast and nipple
CPT/HCPCS: 36415; 51702; 73701; 74022; 80048; 80053; 81001; 82607; 82728; 82746; 83540; 83550; 85025; 87086; 87088; 87426; 97110; 97163; 97167; 97530; 97802; 99251; 99285; J7030; P9612; Q9967; A4216; G0463; J2405

== ENCOUNTER 2020-07-23 16:30 | Inpatient (IN) | payer OTHER, SELFPAY ==
[2018-02-01 11:47] VITALS: BMI 15.0
[2020-07-20 00:53] VITALS: BMI 17.9
[2020-07-23 16:50] VITALS: BP 100/61; PULSE 72; RESP 16; TEMP 36.4; O2SAT 99; BMI 18.3
[2020-07-23] MEDS: Nitrofurantoin Macrocrystals 100 MG Capsule PO (18:04)
[2020-07-23] MEDS: Baclofen 10 MG Tablet PO ×2 (18:04→22:56)
[2020-07-23] MEDS: Senna/Docusate Sodium 1 Tablet PO (18:05)
--- NOTE | 2020-07-23 19:53 | HP.PCM_ITS ---
HPI - General General Date of Admission: 07/23/20 HPI Narrative 07/19/2020 CASPER CHRISTENSEN, is a 54 Female who presents to [facility] Emergency Department with nausea, vomiting. Severe multiple sclerosis, wheelchair bound, right distal femur fracture 2 days prior. Orthopedics thought right femur fracture non -operative, recommended brace. Severe pain despite Vicodin, unable to self cath due to pain. Last bowel movement 2 days prior. Morphine, Zofran given for pain, normal saline 1 liter IV. Pandey catheter for urinary retention. Unable to care for self. 07/19/2020 Admit to Hospital. Change Vicodin to Oxycodone to see if nausea/vomiting better. IV Zofran for nausea/vomiting. Ceftriaxone IV for urinary tract infection. Dulcolax given for constipation. 07/20/2020 Right lower extremity pain worse with movement, nausea with pain. Right knee swollen since right femur fracture. 07/21/2020 Orthopedics recommended non-operative treatment of right distal femur fracture. 07/22/2020 Complicated urinary tract infection treated with Ceftriaxone IV. CT right lower extremity showed distal quadriceps hemorrhage, but no hematoma. 07/23/2020 Ceftriaxone transitioned to Macrobid for 5 more days for complicated urinary tract infection. Stool regimen for constipation. 07/23/2020 Admit to TCU with debility, here for rehabilitation, strengthening, prior to discharge home with family. [facility] Medical History Breast cancer Chronic indwelling Pandey catheter Multiple sclerosis Home Medications baclofen 10 mg tablet 10 mg PO Q4H 02/28/17 [History Last Taken 10/12/17 06:00] cholecalciferol (vitamin D3) 10,000 unit PO DAILY 10/09/17 [History Last Taken Unknown] acetaminophen 650 mg PO Q6H PRN PRN tab 10/13/17 [Rx Last Taken Unknown] dalfampridine 10 mg PO BID PRN PRN 03/24/18 [History Last Taken 07/19/20] nitrofurantoin monohyd/m-cryst [Macrobid] 100 mg PO BID 07/23/20 [History Last Taken Unknown] oxycodone 5 mg PO Q6H PRN 3 Days #12 tab 07/23/20 [Rx Last Taken Unknown] polyethylene glycol 3350 17 g PO DAILY 07/23/20 [History Last Taken Unknown] psyllium husk (aspartame) [Metamucil Fiber Singles] 1 packet PO DAILY 07/23/20 [History Last Taken Unknown] sennosides-docusate sodium [Stool Softener-Stimulant Laxat] 1 tab PO BID 07/23/20 [History Last Taken Unknown] tamoxifen 20 mg PO DAILY 07/23/20 [History Last Taken Unknown] Allergy/AdvReac Type Severity Reaction Status Date / Time ciprofloxacin Allergy Mild unknown Verified 07/19/20 19:13 sulfamethoxazole AdvReac Severe Nausea Verified 07/19/20 19:13 [From Bactrim] trimethoprim [From Bactrim] AdvReac Severe Nausea Verified 07/19/20 19:13 Family History Aunt Breast cancer Mother Diabetes Surgical History h/o tonsillectomy S/P left mastectomy (~10/12/17) Social History (Updated 07/23/20 @ 19:[address] Brad Carroll MD) household members: spouse Smoking Status: Former smoker alcohol intake: never ROS Constitutional Constitutional: Denies chills, fever(s) or weight gain ENT HEENT: Denies headache(s), nasal congestion or nasal discharge Cardiovascular Cardiovascular: Denies chest pain or palpitations Respiratory/Chest Respiratory/Chest: Denies cough, excessive phlegm production or shortness of breath with exertion Gastrointestinal Gastrointestinal: Denies abdominal pain, nausea or vomiting Genitourinary Genitourinary: Denies dysuria Musculoskeletal Musculoskeletal: Denies joint pain or joint swelling Integumentary Integumentary: Denies rash or wounds Neurologic Neurologic: Denies focal weakness, numbness or tingling Psychiatric Psychiatric: Reports auditory hallucinations; Denies anxiety, depression, homicidal ideation or suicidal ideation Vital Signs Vital Signs Vital Signs: 07/23/20 16:50 Temperature 97.5 F L Temperature Source Temporal Pulse Rate 72 Pulse Rhythm Regular Pulse Strength Normal (2+) Respiratory Rate 16 Respiratory Effort Normal Non-Labored Respiratory Depth Normal Respiratory Pattern Normal Blood Pressure 100/61 Blood Pressure Mean 74 Blood Pressure Source Monitor Blood Pressure Position Semi-Fowlers Blood Pressure Location Right Arm Pulse Ox 99 Oxygen Delivery Method Room Air Physical Exam Const alert and oriented x3 General Appearance: cooperative HEENT normocephalic Eyes PERRL and EOMs intact bilaterally Neck supple, no JVD and no carotid bruits Resp normal respiratory effort, normal air movement and clear to auscultation bilaterally Cardio regular rate and regular rhythm GI normal to inspection, nondistended, normoactive bowel sounds, non-tender and non-distended Extremity normal capillary refill Extremity Narrative: Right lower extremity in brace. General Extremity: Negative for edema Skin no rashes or lesions noted General Skin Exam: no breakdown Psych affect normal Appearance: appropriate Assessment & Plan Assessment/Plan (1) Debility: (2) Closed fracture of right distal femur: (3) Complicated urinary tract infection: (4) Nausea & vomiting: (5) Multiple sclerosis: (6) Urinary retention: (7) Breast cancer: (8) Muscle spasm: PLAN: 54 year old female with below past medical history significant for multiple sclerosis, hospitalized for right distal femur fracture, treated non- operatively, complicated by urinary tract infection, admitted to TCU with debility, here for rehabilitation, strengthening, prior to discharge home with . * Debility - PT/OT. * Pain - Tylenol 1000MG Q6H PRN pain (1-3), Oxycodone 5MG Q6H PRN pain (4-10). * Bowel - Metamucil 1 packet daily, Miralax 17GM daily, Senna/colace 1 tablet BID. * Adult immunization - Administer Prevnar 13, Pneumovax 23, Fluzone, COVID19 vaccine as appropriate. * DVT prophylaxis - Hold, right quadriceps hemorrhage. * Muscle spasm - Baclofen 10MG Q4H. * Vitamin D deficiency - D3 250MCG daily. * Multiple Sclerosis - Dalfampridine 10MG BID. * Nutrition - Ensure Enlive 120ML 4x/day. * Urinary tract infection - Macrobid 100MG BID thru 07/28/2020. * Breast cancer status post radiation - Tamoxifen 10MG daily. * Right distal femur fracture - Brace.
[2020-07-23] MEDS: Acetaminophen 500 MG Tablet 1000 MG PO (22:56)
--- NOTE | 2020-07-23 23:33 | NURSING ---
Addendum entered by Simi Gregg 07/24/20 00:03: Soap suds enema given with positive results. Stool very hard. Patient agreed to drink Prune juice in morning with med pass. Original Note: Patient c/o discomfort and feeling like needing to have a BM. Patient unable to have one. Patient stated shes had several suppositories on the other side with no results. RN updated. Dr. Carroll called. New order for soap suds enema.
[2020-07-23] MEDS: DALFAMPRIDINE 10 MG TAB.ER.12H PO (23:41)
[2020-07-24 05:00] VITALS: BP 96/56; PULSE 69; RESP 16; TEMP 36.9; O2SAT 95
[2020-07-24] MEDS: Cholecalciferol (VIT D3) 25 MCG TABLET (1,000 UNITS) 250 MCG PO (05:13)
[2020-07-24] MEDS: Baclofen 10 MG Tablet PO ×5 (05:13→20:52)
[2020-07-24] MEDS: Senna/Docusate Sodium 1 Tablet PO (05:13)
[2020-07-24] MEDS: Tamoxifen 10 MG Tablet 20 MG PO (05:13)
[2020-07-24] MEDS: Psyllium 1 PACKET PO (05:14)
[2020-07-24] MEDS: Polyethylene Glycol 3350 17 GM PACKET PO (05:14)
[2020-07-24 05:59] LABS: Absolute Lymphocyte Count 1.28 X10^3/uL (0.83-4.51); Absolute Neutrophil Count 3.5 X10^3/uL (2.0-7.7); Basophil# 0.04 X10^3/uL; Basophil% 0.7 % (0-1); Eosinophil# 0.31 X10^3/uL; Eosinophils% 5.4 % (0-5); Hematocrit 25.6 % (37-47); Hemoglobin 8.6 g/dL (12.0-15.0); Lymphocyte # 1.28 X10^3/ul (0.83-4.51); Lymphocyte % 22.1 % (19-41); Mean Corp Hgb Conc 33.6 g/dL (32-36); Mean Corpuscular Hgb 34.7 pg (27.0-32.0); Mean Corpuscular Volume 103.2 fL (81-99); Mean Platelet Vol. 11.5 fl (6.2-12.0); Monocyte# 0.61 X10^3/uL; Monocyte% 10.6 % (0-10); NRBC Flagged by Analyzer 1.2 % (0-5); Neutrophil # 3.52 X10^3/uL (2.7-7.7); Neutrophil % 60.9 % (47-70); Platelet Count 273 K/mm3 (150-450); RBC Distribution Width SD 48.6 fl (35.1-43.9); Red Blood Count 2.48 M/mm3 (4.2-5.4); White Blood Count 5.8 K/mm3 (4.4-11.0)
[2020-07-24 06:27] LABS: Anion Gap 6 (5-15); BUN 8 mg/dL (7-18); BUN/Creat Ratio 23.7 RATIO (10-20); Calcium,Total 8.7 mg/dL (8.5-10.1); Chloride 107 mmol/L (98-107); Creatinine, Serum 0.34 mg/dL (0.55-1.02); EST Glomerular Filtration Rate 215 mL/min (>60); Est Glom Filt Rate - Afr Amer 260 mL/min (>60); Estimated Creatinine Clearance 158.47 ml/min; Glucose 90 mg/dL (74-106); Potassium 3.9 mmol/L (3.5-5.1); Sodium Level 141 mmol/L (136-145)
[2020-07-24] MEDS: Nitrofurantoin Macrocrystals 100 MG Capsule PO ×2 (10:07→17:48)
[2020-07-24] MEDS: DALFAMPRIDINE 10 MG TAB.ER.12H PO ×2 (10:08→20:53)
[2020-07-24] MEDS: oxyCODONE 5 MG Tablet PO (10:13)
[2020-07-24] MEDS: Tuberculin,Purif.prot.deriv. 50 TU/ML Vial 5 ML ID (10:52)
[2020-07-24 11:00] VITALS: PULSE 85; RESP 18; O2SAT 97
--- NOTE | 2020-07-24 12:15 | RAD_ITS ---
STUDY: X-RAY - ABDOMEN/PELVIS REASON FOR EXAM: Female, 54 years old. NAUSEA TECHNIQUE: Single AP view of the abdomen / pelvis. COMPARISON: Comparison is made with prior study dated 07/19/2020. FINDINGS: Normal visualized lung bases. There is an abundance of fecal material throughout the colon. The visualized liver, spleen and kidneys are grossly normal in size and morphology. Normal soft tissue structures. Normal visualized osseous structures. RAD/Abdomen Single View IMPRESSION: A large amount of fecal material is seen throughout the colon. Electronically Signed: Dinesh Marie MD at 13:40 EDT , Service support ,
--- NOTE | 2020-07-24 12:17 | NURSING ---
R' C/O NAUSEA. STATES IT'S FROM A PILL I TOOK. LBM YESTERDAY. UNABLE TO EAT LUNCH. NOTIFIED DR COSTA. DANNIE JOHNSON AND KEENA ORDERED.
[2020-07-24] MEDS: Ondansetron ODT 4 MG Tablet PO (12:51)
[2020-07-24 12:55] VITALS: BP 99/71; PULSE 99
--- NOTE | 2020-07-24 12:56 | NURSING ---
found pt lying on the bathroom sink,asked pt what was wrong,pt stated i just dont feel good. I'm not hungry,and feel sink to my stomach and feel like melecio going to pass out. vitals done reported to rn. new order for prn Zofran and kub. Zofran given,will continue to monitor.
[2020-07-24] MEDS: Acetaminophen 500 MG Tablet 1000 MG PO ×2 (13:48→20:53)
--- NOTE | 2020-07-24 13:51 | PCM.PN.RX ---
Progress Note - Pharmacy Subjective: TCU ADMISSION Objective: Allergies ciprofloxacin Allergy (Mild, Verified 07/19/20 19:13) unknown sulfamethoxazole [From Bactrim] Adverse Reaction (Severe, Verified 07/19/20 19:13) Nausea trimethoprim [From Bactrim] Adverse Reaction (Severe, Verified 07/19/20 19:13) Nausea Current Medications Generic Name Dose Route Start Last Admin Trade Name Freq PRN Reason Stop Dose Admin Acetaminophen 1,000 mg 07/24/20 14:00 07/24/20 13:48 Acetaminophen 500 Mg Tablet PO 1,000 mg TID CASSIDY Administration Baclofen 10 mg 07/23/20 18:00 07/24/20 13:49 Baclofen 10 Mg Tablet PO 10 mg Q4H CASSIDY Administration Cholecalciferol 250 mcg 07/24/20 06:00 07/24/20 05:13 Cholecalciferol (Vit D3) 25 Mcg Tablet (1,000 Units) PO 250 mcg DAILY CASSIDY Administration Nitrofurantoin Macrocrystals 100 mg 07/23/20 18:00 07/24/20 10:07 Nitrofurantoin Macrocrystals 100 Mg Capsule PO 07/28/20 18:01 100 mg BIDCM CASSIDY Administration Nutritional Formula (Lactose Free) 120 ml 07/23/20 22:00 07/24/20 11:09 Ensure Enlive 120 Ml Liquid PO 120 ml 4X/DAY CASSIDY Administration Ondansetron HCl 4 mg 07/24/20 12:15 07/24/20 12:51 Ondansetron Odt 4 Mg Tablet PO 4 mg Q8H PRN PRN Administration NAUSEA Oxycodone HCl 5 mg 07/23/20 17:02 07/24/20 10:13 Oxycodone 5 Mg Tablet PO 5 mg Q6H PRN Administration Pain Score 4-10 Polyethylene Glycol 17 gm 07/24/20 18:00 Polyethylene Glycol 3350 17 Gm Packet PO BID [facility] Psyllium Hydrophilic Mucilloid 1 packet 07/24/20 06:00 07/24/20 05:14 Psyllium 1 Packet PO 1 packet DAILY CASSIDY Administration Senna/Docusate Sodium 2 tablet 07/24/20 18:00 Senna/Docusate Sodium 1 Tablet PO BID [facility] Sodium Biphosphate/Sodium Phosphate 1 bottle 07/24/20 08:00 Fleet Enema RC X1 PRN Constipation Tamoxifen Citrate 20 mg 07/24/20 06:00 07/24/20 05:13 Tamoxifen 10 Mg Tablet PO 20 mg DAILY CASSIDY Administration Tuberculin PPD 5 tu 07/31/20 10:00 Tuberculin,Purif.Prot.Deriv. 50 Tu/Ml Vial ID 07/31/20 10:01 X1 ONE Problem List (Last Reviewed 07/23/20 @ 19:[address] Brad Carroll MD) Muscle spasm (Acute) Breast cancer (Acute) Urinary retention (Acute) Multiple sclerosis (Acute) Nausea & vomiting (Acute) Complicated urinary tract infection (Acute) Closed fracture of right distal femur (Acute) Debility (Acute) Vital Signs Temp Pulse Resp BP Pulse Ox 98.4 F 99 16 99/71 95 07/24/20 05:00 07/24/20 12:55 07/24/20 05:00 07/24/20 12:55 07/24/20 05:00 Oxygen Delivery Method Room Air Weight: 53.07 kg Body Mass Index (BMI) 18.3 Sodium 141 mmol/L (136-145) 07/24/20 05:06 Potassium 3.9 mmol/L (3.5-5.1) 07/24/20 05:06 Chloride 107 mmol/L (98-107) 07/24/20 05:06 Carbon Dioxide 28.0 mmol/L (21.0-32.0) 07/24/20 05:06 Anion Gap 6 (5-15) 07/24/20 05:06 BUN 8 mg/dL (7-18) 07/24/20 05:06 Creatinine 0.34 mg/dL (0.55-1.02) L 07/24/20 05:06 Est GFR (MDRD) Af Amer 260 mL/min (>60) 07/24/20 05:06 Est GFR (MDRD) Non-Af 215 mL/min (>60) 07/24/20 05:06 BUN/Creatinine Ratio 23.7 RATIO (10-20) H 07/24/20 05:06 Glucose 90 mg/dL (74-106) 07/24/20 05:06 Assessment/Plan: 1. Pain: Tylenol 1000mg PO TID, oxycodone 5mg Q6H PO PRN pain (4-10). Please continue to monitor pain, PRN usage, and respiratory depression. 2. Muscle spasm: Baclofen 10mg PO Q4H. Please continue to monitor S/S of muscle spasm and respiratory depression. 3. Vitamin D deficiency: D3 250mcg PO daily. Please continue to monitor vitamin D levels as clinically appropriate. 4. Multiple Sclerosis: dalfampridine 10mg PO BID. Please continue to monitor renal function and S/S of MS exacerbation. 5. Urinary tract infection: Macrobid 100mg PO BID thru 07/28/2020. Please continue to monitor infection improvement. 6. Breast cancer status post radiation: tamoxifen 20mg PO daily. Please continue to monitor LFTs, calcium levels (last 8.7), and platelets (last 273,000). 7.Nausea: Zofran 4mg PO PRN nausea. Please continue to monitor for PRN medication use, medication effectiveness. Psychotropic Medications: None Unnecessary Medications: None Bowel Regimen: Bowel: Metamucil 1 packet PO daily, Miralax 17GM PO BID, Senna/docusate 2 tablets PO BID, Fleet Enema 1 bottle RC X1 PRN constipation. Please continue to monitor for S/S increased/decreased constipation and/or diarrhea. Date of Note:: 07/24/20
--- NOTE | 2020-07-24 14:48 | NURSING ---
pt updated family
[2020-07-24 15:39] VITALS: PULSE 70; RESP 18; TEMP 36.4; O2SAT 94
[2020-07-24] MEDS: Magnesium Citrate 300 ML PO (15:40)
[2020-07-24] MEDS: Senna/Docusate Sodium 1 Tablet 2 TABLET PO (17:49)
[2020-07-24 20:50] VITALS: BP 93/72; PULSE 83
[2020-07-24] MEDS: Fleet Enema 1 ML RC (21:05)
--- NOTE | 2020-07-24 21:05 | NURSING ---
Patient c/o feeling very weak and still unable to have a BM. Vitals obtained, low blood pressure noted. Patient unable to eat at all today. Refused x3 meals. Cannot drink fluids d/t feeling full and uncomfortable. Discussed situation with RN. Dr. Glen ogden. New order for Dext 5%-0.45% NS at 75 mL/hr. 22 gauge. Fleets enema given with positive results. IV established in right forearm, flushed with 10cc NS, secured with tegaderm and tape. Patient tolerated well.
[2020-07-24] MEDS: Dext 5%-0.45% NS 1,000 ML 75 ML IV (22:44)
[2020-07-25 05:00] VITALS: BP 123/48; PULSE 69; RESP 16; TEMP 36.9; O2SAT 97
[2020-07-25] MEDS: Cholecalciferol (VIT D3) 25 MCG TABLET (1,000 UNITS) 250 MCG PO (06:52)
[2020-07-25] MEDS: Psyllium 1 PACKET PO (06:52)
[2020-07-25] MEDS: Polyethylene Glycol 3350 17 GM PACKET PO (06:52)
[2020-07-25] MEDS: Tamoxifen 10 MG Tablet 20 MG PO (06:53)
[2020-07-25] MEDS: Baclofen 10 MG Tablet PO ×5 (06:53→21:05)
[2020-07-25] MEDS: Senna/Docusate Sodium 1 Tablet 2 TABLET PO (06:53)
[2020-07-25] MEDS: Acetaminophen 500 MG Tablet 1000 MG PO ×3 (06:53→21:05)
[2020-07-25] MEDS: DALFAMPRIDINE 10 MG TAB.ER.12H PO ×2 (08:28→21:05)
[2020-07-25] MEDS: Nitrofurantoin Macrocrystals 100 MG Capsule PO ×2 (08:28→18:02)
[2020-07-25] MEDS: Lactulose 20 GM/30 ML UDC 200 GM RC (10:34)
--- NOTE | 2020-07-25 10:43 | CASEMGMT ---
Social Work Code status reviewed, pt confirmed DNRCC-A, no intubation. MOLST form reviewed, communication to physician, form placed in chart. SW also reviewed LW/POA forms and provided copies to pt, pt may want to complete forms at some time while here, will notify staff if she would like to do so. HARRIS Alex
[2020-07-25] MEDS: Dext 5%-0.45% NS 1,000 ML 75 ML IV (12:12)
[2020-07-25] MEDS: Ondansetron ODT 4 MG Tablet PO (12:15)
--- NOTE | 2020-07-25 12:45 | NURSING ---
Pt having nausea unable to keep anything down at this time. Had Lactulose enema with no results. Dr. Carroll updated new order for IV Reglan and to continue with IV fluids.
[2020-07-25 15:00] VITALS: BP 105/68; PULSE 68; RESP 16; TEMP 37.3; O2SAT 98
[2020-07-25] MEDS: Metoclopramide 10 MG/2 ML Vial 5 MG IV (18:47)
[2020-07-26] MEDS: Metoclopramide 10 MG/2 ML Vial 5 MG IV ×4 (00:59→18:36)
[2020-07-26] MEDS: Dext 5%-0.45% NS 1,000 ML 75 ML IV ×2 (00:59→14:50)
[2020-07-26] MEDS: Baclofen 10 MG Tablet PO ×6 (01:02→20:53)
[2020-07-26] MEDS: Acetaminophen 500 MG Tablet 1000 MG PO ×3 (06:21→20:52)
[2020-07-26] MEDS: Tamoxifen 10 MG Tablet 20 MG PO (06:22)
[2020-07-26] MEDS: Polyethylene Glycol 3350 17 GM PACKET PO (06:22)
[2020-07-26] MEDS: Senna/Docusate Sodium 1 Tablet 2 TABLET PO ×2 (06:22→17:58)
[2020-07-26] MEDS: Cholecalciferol (VIT D3) 25 MCG TABLET (1,000 UNITS) 250 MCG PO (06:23)
[2020-07-26 06:31] VITALS: BP 90/53; PULSE 70; RESP 16; TEMP 36.5; O2SAT 97
[2020-07-26] MEDS: DALFAMPRIDINE 10 MG TAB.ER.12H PO ×2 (08:53→20:53)
[2020-07-26] MEDS: Nitrofurantoin Macrocrystals 100 MG Capsule PO ×2 (08:53→18:03)
[2020-07-26 14:24] VITALS: BP 96/56; PULSE 84; RESP 16; TEMP 36.7; O2SAT 97
--- NOTE | 2020-07-26 15:19 | CASEMGMT ---
Social Work Met with patient to discuss DC plans. Therapy reports pt progressing well today and hopeful pt can return to PLOF with continued therapy. Explained insurance update 07/27 and continued stay is not guaranteed, however, pt is on IVs Q6. Discussed DC plans. 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 Pt states she would be able to get herself food and drink throughout the day home alone, but needs assistance with toileting, transfers and bathing. Inquired about Medicaid - pt and are over income level. Explained skilled and nonskilled HHC. Pt unsure she can afford to hire aides each day, but agreeable to list. Provided skilled and nonskilled HHC list. SW to continue to follow for DC planning. PARVIN PorterW
--- NOTE | 2020-07-26 15:35 | NURSING ---
pt stated she updates
--- NOTE | 2020-07-26 17:34 | CHAPLAIN ---
Type of Pastoral Visit ___ Initial Visit _x__ Follow-up Visit ___ On-call Visit ___ General Patient Visit ___ Spiritual Assessment ___ Family Conference ___ Bereavement ___ Rapid Response ___ Code Blue ___ Other (describe below) Pastoral Care Referral From _x__ Patient ___ Family ___ Nurse ___ Physician ___ Data Warehousing Manager ___ Soaking Pits Supervisor ___ Other (describe below) Sacrament/Intervention _x__ Active listening ___ Anointing ___ Islam ___ Bereavement ___ Communion ___ Steph exploration ___ ___ Life review _x__ Prayer ___ Reconciliation ___ Sacrament of Sick _x__ Supportive presence ___ Wedding ___ Other (describe below) Pastoral Comments patient states that this is a good day; pt encouraged about her progress so far; pt is happy to talk and receive prayer support
[2020-07-27] MEDS: Metoclopramide 10 MG/2 ML Vial 5 MG IV ×3 (00:59→12:27)
[2020-07-27] MEDS: Baclofen 10 MG Tablet PO ×6 (01:00→20:47)
[2020-07-27] MEDS: Dext 5%-0.45% NS 1,000 ML 75 ML IV ×2 (04:11→18:49)
[2020-07-27 05:00] VITALS: BP 90/51; PULSE 71; RESP 16; TEMP 37.6; O2SAT 95
[2020-07-27] MEDS: Tamoxifen 10 MG Tablet 20 MG PO (05:22)
[2020-07-27] MEDS: Acetaminophen 500 MG Tablet 1000 MG PO ×3 (05:23→20:50)
[2020-07-27] MEDS: Senna/Docusate Sodium 1 Tablet 2 TABLET PO ×2 (05:24→16:49)
[2020-07-27] MEDS: Cholecalciferol (VIT D3) 25 MCG TABLET (1,000 UNITS) 250 MCG PO (05:25)
[2020-07-27] MEDS: DALFAMPRIDINE 10 MG TAB.ER.12H PO ×2 (08:20→20:49)
[2020-07-27] MEDS: Nitrofurantoin Macrocrystals 100 MG Capsule PO ×2 (08:21→16:46)
[2020-07-27 13:00] VITALS: RESP 14
--- NOTE | 2020-07-27 15:00 | RAD_ITS ---
STUDY: X-RAY - ABDOMEN/PELVIS REASON FOR EXAM: Female, 54 years old. Nausea TECHNIQUE: Frontal view COMPARISON: None. FINDINGS: Normal visualized lung bases. There is an unremarkable bowel gas pattern. There is no demonstrated free abdominal air. The visualized liver, spleen and kidneys are grossly normal in size and morphology. Normal soft tissue structures. Normal visualized osseous structures. RAD/Abdomen Single View IMPRESSION: Normal x-ray examination of the abdomen and pelvis. Electronically Signed: Jay Jay Gonzales DO at 16:52 EDT Tel [phone], Service support ,
[2020-07-27 15:14] VITALS: BP 108/55; PULSE 89; RESP 18; TEMP 36.7; O2SAT 94
[2020-07-27] MEDS: Polyethylene Glycol 3350 17 GM PACKET PO (16:44)
[2020-07-27] MEDS: Metoclopramide 10 MG/2 ML Vial IV (18:39)
[2020-07-27] MEDS: Mirtazapine 15 MG Tablet 7.5 MG PO (20:45)
[2020-07-28] MEDS: Metoclopramide 10 MG/2 ML Vial IV ×4 (00:54→18:50)
[2020-07-28] MEDS: Baclofen 10 MG Tablet PO ×6 (01:01→20:31)
[2020-07-28] MEDS: oxyCODONE 5 MG Tablet PO (02:36)
--- NOTE | 2020-07-28 02:42 | PCA ---
Pt declined to wash up this evening. em
[2020-07-28 05:00] VITALS: BP 92/59; PULSE 95; RESP 18; O2SAT 71
[2020-07-28] MEDS: Cholecalciferol (VIT D3) 25 MCG TABLET (1,000 UNITS) 250 MCG PO (06:21)
[2020-07-28] MEDS: Senna/Docusate Sodium 1 Tablet 2 TABLET PO ×2 (06:22→17:30)
[2020-07-28] MEDS: Tamoxifen 10 MG Tablet 20 MG PO (06:22)
[2020-07-28] MEDS: Acetaminophen 500 MG Tablet 1000 MG PO ×3 (06:23→20:34)
[2020-07-28] MEDS: Polyethylene Glycol 3350 17 GM PACKET PO ×2 (06:25→17:30)
[2020-07-28] MEDS: 0.9 % NaCl (Sterile) Posiflush 10 mL IV (06:51)
[2020-07-28] MEDS: Dext 5%-0.45% NS 1,000 ML 75 ML IV ×2 (07:07→20:44)
[2020-07-28] MEDS: DALFAMPRIDINE 10 MG TAB.ER.12H PO ×2 (08:24→20:31)
[2020-07-28] MEDS: Nitrofurantoin Macrocrystals 100 MG Capsule PO (08:25)
[2020-07-28 14:26] VITALS: BP 86/40; PULSE 75; RESP 16; TEMP 37.1; O2SAT 98
[2020-07-28 15:30] VITALS: BP 105/53; PULSE 79
[2020-07-28 20:12] VITALS: RESP 16
[2020-07-28] MEDS: Mirtazapine 15 MG Tablet 7.5 MG PO (20:33)
[2020-07-29] MEDS: Baclofen 10 MG Tablet PO ×6 (01:52→21:00)
[2020-07-29 05:00] VITALS: BP 113/59; PULSE 82; RESP 18; TEMP 37.8; O2SAT 95
[2020-07-29] MEDS: Tamoxifen 10 MG Tablet 20 MG PO (06:33)
[2020-07-29] MEDS: Polyethylene Glycol 3350 17 GM PACKET PO (06:33)
[2020-07-29] MEDS: Senna/Docusate Sodium 1 Tablet 2 TABLET PO (06:34)
[2020-07-29] MEDS: Acetaminophen 500 MG Tablet 1000 MG PO ×3 (06:34→21:00)
[2020-07-29] MEDS: Cholecalciferol (VIT D3) 25 MCG TABLET (1,000 UNITS) 250 MCG PO (06:34)
--- NOTE | 2020-07-29 07:06 | RAD_ITS ---
STUDY: X-RAY CHEST REASON FOR EXAM: Female, 54 years old. fever, diminished lung sounds, history MS TECHNIQUE: PA and lateral views of the chest. COMPARISON: 07/19/2020 FINDINGS: Status post left mastectomy and axillary lymph node dissection. The lungs are clear and expanded. There is no demonstrated pleural abnormality. Normal size heart. Normal mediastinum and felipe. Normal visualized pulmonary arteries. Normal visualized aortic arch and descending thoracic aorta. Normal visualized thoracic spine. Normal visualized ribs, clavicles, and shoulders. There is no demonstrated abnormality of the visualized soft tissue structures of the upper abdomen. RAD/Chest PA and Lateral IMPRESSION: No active disease. Electronically Signed: López Mcmahon MD at 8:42 EDT Tel , Service support ,
[2020-07-29 07:35] LABS: Mucous, Urine 0 SEEN /hpf (<or=2+); Red Blood Cells-Urine 0 SEEN /hpf (0-5); Squamous Epithelial Cells - UA 0 SEEN /hpf (5-10); White Blood Cells 0 SEEN /hpf (0-5)
--- NOTE | 2020-07-29 07:36 | NURSING ---
Patient had low grade tempt this AM. On assessment she complains of feeling weak, headache, double vision. She has refused last few doses of reglan, says it is making her feel worse. Updated Dr Carroll on assessment and patient complaints, orders for UA w/ C&S, Cxray, BMP, CBC.
[2020-07-29 07:38] LABS: Color, Urine Yellow (Yellow); Glucose, Dipstick Normal (Normal); Ketone-Dipstick Negative (Negative); Leukocyte Esterase-Dipstick Negative /ul (Negative); Nitrite-Dipstick Negative (Negative); Occult Blood-Urine Negative /ul (Negative); Protein-Dipstick Negative (Negative); Urine Bilirubin Dipstick Negative (Negative); Urine Clarity Clear (Clear); Urine Urobilinogen Normal (Normal)
[2020-07-29 07:45] LABS: Bacteria RARE /hpf (None Seen); Yeast-Urine 1+ /hpf (None Seen)
[2020-07-29 08:08] LABS: Absolute Lymphocyte Count 1.27 X10^3/uL (0.83-4.51); Absolute Neutrophil Count 4.1 X10^3/uL (2.0-7.7); Basophil# 0.04 X10^3/uL; Basophil% 0.6 % (0-1); Eosinophils% 4.7 % (0-5); Hematocrit 26.4 % (37-47); Hemoglobin 8.6 g/dL (12.0-15.0); Lymphocyte # 1.27 X10^3/ul (0.83-4.51); Mean Corp Hgb Conc 32.6 g/dL (32-36); Mean Corpuscular Hgb 34.5 pg (27.0-32.0); Monocyte# 0.59 X10^3/uL; Monocyte% 9.3 % (0-10); NRBC Flagged by Analyzer 1.1 % (0-5); Neutrophil # 4.11 X10^3/uL (2.7-7.7); Neutrophil % 64.9 % (47-70); Platelet Count 381 K/mm3 (150-450); RBC Distribution Width CV 13.3 % (11.6-14.6); RBC Distribution Width SD 51.3 fl (35.1-43.9); Red Blood Count 2.49 M/mm3 (4.2-5.4); White Blood Count 6.3 K/mm3 (4.4-11.0)
[2020-07-29] MEDS: DALFAMPRIDINE 10 MG TAB.ER.12H PO ×2 (08:15→21:00)
[2020-07-29 08:29] LABS: Anion Gap 7 (5-15); BUN 12 mg/dL (7-18); BUN/Creat Ratio 20.6 RATIO (10-20); Calcium,Total 8.3 mg/dL (8.5-10.1); Chloride 104 mmol/L (98-107); Creatinine, Serum 0.58 mg/dL (0.55-1.02); EST Glomerular Filtration Rate 114 mL/min (>60); Est Glom Filt Rate - Afr Amer 138 mL/min (>60); Glucose 125 mg/dL (74-106); Sodium Level 138 mmol/L (136-145)
[2020-07-29] MEDS: Dext 5%-0.45% NS 1,000 ML 75 ML IV (11:51)
[2020-07-29] MEDS: Metoclopramide 10 MG/2 ML Vial IV ×2 (12:11→17:34)
[2020-07-29] MEDS: 0.9% Saline Lock 10 ML Syringe IV (12:12)
[2020-07-29 14:03] VITALS: BP 95/55; PULSE 79; RESP 16; TEMP 36.6; O2SAT 98
[2020-07-29] MEDS: 0.9 % NaCl (Sterile) Posiflush 10 mL IV (17:41)
[2020-07-30] MEDS: Dext 5%-0.45% NS 1,000 ML 75 ML IV (01:31)
[2020-07-30] MEDS: Baclofen 10 MG Tablet PO ×6 (01:32→20:59)
[2020-07-30 05:00] VITALS: BP 100/53; PULSE 79; RESP 16; TEMP 37.8; O2SAT 95
[2020-07-30] MEDS: Senna/Docusate Sodium 1 Tablet 2 TABLET PO ×2 (06:20→17:36)
[2020-07-30] MEDS: Acetaminophen 500 MG Tablet 1000 MG PO ×3 (06:20→21:02)
[2020-07-30] MEDS: Cholecalciferol (VIT D3) 25 MCG TABLET (1,000 UNITS) 250 MCG PO (06:20)
[2020-07-30] MEDS: Tamoxifen 10 MG Tablet 20 MG PO (06:22)
[2020-07-30] MEDS: DALFAMPRIDINE 10 MG TAB.ER.12H PO ×2 (08:35→20:59)
[2020-07-30] MEDS: Metoclopramide 10 MG/2 ML Vial 5 MG IV ×2 (11:51→17:53)
[2020-07-30] MEDS: 0.9% Saline Lock 10 ML Syringe IV ×3 (11:52→17:54)
[2020-07-30 15:12] VITALS: BP 83/41; PULSE 9; RESP 19; TEMP 36.1; O2SAT 99
--- NOTE | 2020-07-30 16:31 | NURSING ---
PT STATED SHE WILL UPDATE
--- NOTE | 2020-07-30 16:56 | CHAPLAIN ---
Type of Pastoral Visit ___ Initial Visit _x__ Follow-up Visit ___ On-call Visit ___ General Patient Visit ___ Spiritual Assessment ___ Family Conference ___ Bereavement ___ Rapid Response ___ Code Blue ___ Other (describe below) Pastoral Care Referral From _x__ Patient ___ Family ___ Nurse ___ Physician _x__ Anthropometrist ___ Natural Foods Clerk ___ Other (describe below) Sacrament/Intervention _x__ Active listening ___ Anointing ___ Tenriism ___ Bereavement ___ Communion ___ Steph exploration ___ _x__ Life review _x__ Prayer ___ Reconciliation ___ Sacrament of Sick _x__ Supportive presence ___ Wedding ___ Other (describe below) Pastoral Comments patient spouse has cancer and his chemo is no longer effective; this was news over the weekend; spent time to listen to pt process this and other family issues that will impact their home life and future; prayer and support given
[2020-07-30 17:46] VITALS: BP 101/64; PULSE 93
[2020-07-30] MEDS: Sodium Chloride 0.65% 1 SPRAY SPRAY.BTL 2 SPRAY NASAL (18:38)
[2020-07-30] MEDS: Fluconazole 100 MG Tablet 200 MG PO (20:58)
[2020-07-30] MEDS: Mirtazapine 15 MG Tablet 7.5 MG PO (21:00)
--- NOTE | 2020-07-30 21:59 | NURSING ---
Pt refusing IV Reglan scheduled at midnight and 0600. Verbalizes medication resulted in dizziness after dose at noon and experienced difficulty participating in therapy. Pt also thinks medication resulted in hot flashes. Appetite is fair. Denies any nausea, vomiting, or dry heaves. Verbalizes passing liquid stool, unsure of volume. Denies any abdominal pain. Bowel sounds active x 4 quads. Abdomen soft, nontender w/ light palpation. Consuming fluids fair. Tongue white coated and will receive a dose of Diflucan x1 per dr order. Call light w/ in reach. Will continue to monitor.
[2020-07-31] MEDS: Baclofen 10 MG Tablet PO ×6 (01:36→22:06)
[2020-07-31 05:00] VITALS: BP 92/42; PULSE 74; RESP 18; TEMP 37.2; O2SAT 99
[2020-07-31] MEDS: Cholecalciferol (VIT D3) 25 MCG TABLET (1,000 UNITS) 250 MCG PO (05:38)
[2020-07-31] MEDS: Senna/Docusate Sodium 1 Tablet 2 TABLET PO (05:41)
[2020-07-31] MEDS: Acetaminophen 500 MG Tablet 1000 MG PO ×3 (05:42→22:07)
[2020-07-31] MEDS: Tamoxifen 10 MG Tablet 20 MG PO (05:43)
[2020-07-31] MEDS: Fluconazole 100 MG Tablet 200 MG PO (05:43)
[2020-07-31] MEDS: Menthol/Lanolin/Calamine/Znox 113 GM Tube 1 APPLIC TOPICAL ×2 (05:44→17:44)
[2020-07-31] MEDS: Polyethylene Glycol 3350 17 GM PACKET PO (05:45)
[2020-07-31 05:46] LABS: Absolute Lymphocyte Count 1.34 X10^3/uL (0.83-4.51); Absolute Neutrophil Count 4.1 X10^3/uL (2.0-7.7); Basophil# 0.03 X10^3/uL; Basophil% 0.5 % (0-1); Eosinophil# 0.32 X10^3/uL; Hematocrit 27.2 % (37-47); Hemoglobin 8.8 g/dL (12.0-15.0); Lymphocyte # 1.34 X10^3/ul (0.83-4.51); Lymphocyte % 20.8 % (19-41); Mean Corp Hgb Conc 32.4 g/dL (32-36); Mean Corpuscular Hgb 33.7 pg (27.0-32.0); Mean Corpuscular Volume 104.2 fL (81-99); Mean Platelet Vol. 11.1 fl (6.2-12.0); Monocyte# 0.64 X10^3/uL; Monocyte% 9.9 % (0-10); NRBC Flagged by Analyzer 1.1 % (0-5); Neutrophil # 4.08 X10^3/uL (2.7-7.7); Neutrophil % 63.2 % (47-70); Platelet Count 399 K/mm3 (150-450); RBC Distribution Width CV 13.2 % (11.6-14.6); RBC Distribution Width SD 49.8 fl (35.1-43.9); Red Blood Count 2.61 M/mm3 (4.2-5.4); White Blood Count 6.5 K/mm3 (4.4-11.0)
[2020-07-31] MEDS: DALFAMPRIDINE 10 MG TAB.ER.12H PO ×2 (08:09→22:04)
[2020-07-31] MEDS: 0.9% Saline Lock 10 ML Syringe IV (08:15)
[2020-07-31 09:40] VITALS: PULSE 68; RESP 18; O2SAT 97
[2020-07-31] MEDS: Tuberculin,Purif.prot.deriv. 50 TU/ML Vial 5 ML ID (11:01)
[2020-07-31 11:57] LABS: Anion Gap 6 (5-15); BUN 14 mg/dL (7-18); BUN/Creat Ratio 34.6 RATIO (10-20); Calcium,Total 8.6 mg/dL (8.5-10.1); Chloride 107 mmol/L (98-107); EST Glomerular Filtration Rate 174 mL/min (>60); Est Glom Filt Rate - Afr Amer 210 mL/min (>60); Estimated Creatinine Clearance 131.99 ml/min; Glucose 85 mg/dL (74-106); Potassium 3.9 mmol/L (3.5-5.1); Sodium Level 139 mmol/L (136-145)
[2020-07-31 13:54] VITALS: BP 110/53; PULSE 73; RESP 20; TEMP 36.7; O2SAT 97
--- NOTE | 2020-07-31 14:51 | NURSING ---
pt stated she updates
[2020-07-31] MEDS: Sodium Chloride 0.65% 1 SPRAY SPRAY.BTL 2 SPRAY NASAL ×2 (17:40→22:14)
[2020-08-01] MEDS: Baclofen 10 MG Tablet PO ×6 (02:10→21:17)
[2020-08-01 05:00] VITALS: BP 102/61; PULSE 67; RESP 18; O2SAT 95
[2020-08-01] MEDS: Acetaminophen 500 MG Tablet 1000 MG PO ×3 (07:11→21:19)
[2020-08-01] MEDS: Cholecalciferol (VIT D3) 25 MCG TABLET (1,000 UNITS) 250 MCG PO (07:11)
[2020-08-01] MEDS: Senna/Docusate Sodium 1 Tablet 2 TABLET PO ×2 (07:11→08:01)
[2020-08-01] MEDS: Fluconazole 100 MG Tablet 200 MG PO (07:12)
[2020-08-01] MEDS: Tamoxifen 10 MG Tablet 20 MG PO (07:14)
[2020-08-01] MEDS: DALFAMPRIDINE 10 MG TAB.ER.12H PO ×2 (07:59→21:17)
[2020-08-01] MEDS: Menthol/Lanolin/Calamine/Znox 113 GM Tube 1 APPLIC TOPICAL ×2 (08:01→17:17)
--- NOTE | 2020-08-01 09:41 | CASEMGMT ---
Addendum entered by Miriam Mireles 08/01/20 14:55: Pt, and IDT requesting therapy family training prior to DC. Pt is out of isolation 08/06. scheduled to complete training 08/07, if insurance allows. Will continue to follow. Original Note: Social Work IDT met with patient for care plan meeting. unavailable for phone call. Discussed patient's progress in therapy and nursing. Explained [facility] insurance approved with LCD 08/05 or NRD 08/03 if DC date not set. Pt and IDT agreeable pt would benefit from continued strengthening and therapy. Discussed home set up. is returning to work since chemo tx are done/not effective. Pt would be home alone. Pt states her and agreed he will help with morning and evening routine before/after work; pt would stay in electric w/c during the day, which can recline for her to sleep. She is accessible to food and drinks, and the catheter will remain at DC. Pt states if she has BM, her will be able to come home from work to assist; her BOGDAN is able to assist with bathing when needed. SW to order skilled C PT/OT/SN/ACEVEDO and pt requesting half-bed rail. Will refer to [facility] at [place]. SW to continue to follow. Miriam Mireles, PARVIN ARITAW
[2020-08-01] MEDS: Sodium Chloride 0.65% 1 SPRAY SPRAY.BTL 2 SPRAY NASAL (13:42)
[2020-08-01 15:13] VITALS: BP 93/62; PULSE 92; RESP 16; TEMP 37.1; O2SAT 93
[2020-08-01] MEDS: 0.9% Saline Lock 10 ML Syringe IV (18:29)
[2020-08-02] MEDS: Baclofen 10 MG Tablet PO ×6 (02:06→21:50)
[2020-08-02 06:18] VITALS: BP 98/60; PULSE 64; RESP 16; TEMP 37.3; O2SAT 95
[2020-08-02] MEDS: Acetaminophen 500 MG Tablet 1000 MG PO ×3 (06:25→21:51)
[2020-08-02] MEDS: Cholecalciferol (VIT D3) 25 MCG TABLET (1,000 UNITS) 250 MCG PO (06:26)
[2020-08-02] MEDS: Tamoxifen 10 MG Tablet 20 MG PO (06:27)
[2020-08-02] MEDS: Fluconazole 100 MG Tablet 200 MG PO (06:28)
[2020-08-02] MEDS: Enoxaparin 30 MG/0.3 ML Syringe SC (06:28)
[2020-08-02] MEDS: Menthol/Lanolin/Calamine/Znox 113 GM Tube 1 APPLIC TOPICAL ×2 (06:31→17:37)
[2020-08-02] MEDS: DALFAMPRIDINE 10 MG TAB.ER.12H PO ×2 (08:32→21:50)
--- NOTE | 2020-08-02 09:00 | RAD_ITS ---
STUDY: FISTULOGRAM REASON FOR EXAM: Female, 54 years old. Diarrhea, possible rectovaginal fistula RADIATION DOSAGE (If Supplied By Facility): CTDIvol = ( ) mGy, DLP = ( ) mGycm. Individualized dose optimization techniques were used for this CT.? FLUOROSCOPY TIME (if supplied): ( 1:08 ) minutes/seconds TECHNIQUE: Single contrast COMPARISON: None. FINDINGS: Reamer Hand film demonstrates retained stool throughout the entirety of the colon. This is likely impacted. Under fluoroscopic guidance, a enema tip was passed into the rectum and balloon inflated. GASTROGRAFIN contrast was instilled through the barium enema tube into retrograde manner. There is normal distention of the rectum and distal sigmoid. There is no evidence of a fistulous connection to the vagina. No extravasation of contrast outside the rectum or distal sigmoid colon is noted. RAD/Barium Enema No Air Cont IMPRESSION: No fistulous connection between the rectum and vagina noted. Reamer Hand film shows retained stool throughout the entirety of the colon which may be impacted Electronically Signed: Tima Arevalo MD at 10:04 EDT , Service support ,
[2020-08-02 10:10] VITALS: PULSE 63; RESP 18; O2SAT 98
[2020-08-02] MEDS: Sodium Chloride 0.65% 1 SPRAY SPRAY.BTL 2 SPRAY NASAL ×2 (10:11→17:38)
--- NOTE | 2020-08-02 10:54 | NURSING ---
PRESSURE SORE TO ANTERER RIGHT ANKLE. MEPILEX APPLIED. ABD ALSO APPLIED ABOVE ANKLE DO TO INDENTATION AND REDNESS FROM BRACE. RN AWARE.
[2020-08-02 14:36] VITALS: BP 91/54; PULSE 69; RESP 18; TEMP 36.1; O2SAT 94
--- NOTE | 2020-08-02 15:24 | MDS.RN ---
Information for the mds was obtained from review of the clinical record, interview of resident, staff, and direct observation of resident's care.
[2020-08-02] MEDS: 0.9% Saline Lock 10 ML Syringe IV ×2 (17:49→21:56)
[2020-08-02] MEDS: Senna/Docusate Sodium 1 Tablet 2 TABLET PO (17:57)
[2020-08-02] MEDS: Polyethylene Glycol 3350 17 GM PACKET PO (17:57)
[2020-08-03] MEDS: Baclofen 10 MG Tablet PO ×6 (02:24→21:18)
--- NOTE | 2020-08-03 03:28 | NURSING ---
2144 soap suds enema administered to pt while she was on her r side with good results. pt had large soft, brown return of stool. pt tolerated procedure well.
[2020-08-03 05:00] VITALS: BP 94/52; PULSE 72; RESP 18; TEMP 37.2; O2SAT 97
--- NOTE | 2020-08-03 05:00 | RAD_ITS ---
STUDY: X-RAY - RIGHT KNEE REASON FOR EXAM: Distal right femoral fracture. TECHNIQUE: 2 view(s) of the knee. COMPARISON: Radiographs 07/17/2020. FINDINGS: There is a fracture of the distal femoral diametaphysis with increased impaction and angulation but without demonstrated intra-articular extension. Normal visualized proximal tibia and fibula. Normal proximal tibiofibular articulation. There is no demonstrated joint space narrowing. There is soft tissue swelling. There is an overlying brace. RAD/Knee 1 or 2 Views IMPRESSION: Distal femoral fracture with increased impaction and angulation. Electronically Signed: Fran De Leon MD at 8:17 EDT Tel , Service support ,
[2020-08-03 05:40] LABS: Absolute Lymphocyte Count 1.44 X10^3/uL (0.83-4.51); Basophil# 0.04 X10^3/uL; Basophil% 0.6 % (0-1); Eosinophils% 4.7 % (0-5); Hematocrit 27.3 % (37-47); Hemoglobin 8.6 g/dL (12.0-15.0); Lymphocyte # 1.44 X10^3/ul (0.83-4.51); Lymphocyte % 22.7 % (19-41); Mean Corp Hgb Conc 31.5 g/dL (32-36); Mean Corpuscular Hgb 33.2 pg (27.0-32.0); Mean Corpuscular Volume 105.4 fL (81-99); Mean Platelet Vol. 11.1 fl (6.2-12.0); Monocyte# 0.53 X10^3/uL; Monocyte% 8.3 % (0-10); NRBC Flagged by Analyzer 0.6 % (0-5); Neutrophil # 4.01 X10^3/uL (2.7-7.7); Neutrophil % 63.2 % (47-70); Platelet Count 398 K/mm3 (150-450); RBC Distribution Width CV 13.2 % (11.6-14.6); RBC Distribution Width SD 50.4 fl (35.1-43.9); Red Blood Count 2.59 M/mm3 (4.2-5.4); White Blood Count 6.4 K/mm3 (4.4-11.0)
[2020-08-03] MEDS: Menthol/Lanolin/Calamine/Znox 113 GM Tube 1 APPLIC TOPICAL ×2 (06:13→17:14)
[2020-08-03] MEDS: Fluconazole 100 MG Tablet 200 MG PO (06:14)
[2020-08-03] MEDS: Tamoxifen 10 MG Tablet 20 MG PO (06:15)
[2020-08-03] MEDS: Enoxaparin 30 MG/0.3 ML Syringe SC (06:15)
[2020-08-03] MEDS: Acetaminophen 500 MG Tablet 1000 MG PO ×3 (06:16→21:18)
[2020-08-03] MEDS: Cholecalciferol (VIT D3) 25 MCG TABLET (1,000 UNITS) 250 MCG PO (06:17)
[2020-08-03] MEDS: Senna/Docusate Sodium 1 Tablet 2 TABLET PO ×2 (06:20→17:21)
[2020-08-03] MEDS: Polyethylene Glycol 3350 17 GM PACKET PO ×2 (06:21→17:21)
[2020-08-03] MEDS: DALFAMPRIDINE 10 MG TAB.ER.12H PO (08:13)
--- NOTE | 2020-08-03 08:56 | NURSING ---
Resident educated on the COVID-19 Vaccine. She does not want it at this time.
--- NOTE | 2020-08-03 10:51 | NURSING ---
Addendum entered by Evelin Nash 08/03/20 15:34: Meant to say Dr. Valdez for last note Addendum entered by Evelin Nash 08/03/20 15:29: Recevied a phone call from [facility]. Dr. Reeves would like to see patient on September 05 at 1:15 pm instead of August 08. Nursing updated Addendum entered by Giana Chávez 08/03/20 12:32: Office returned call to this nurse and stated Dr. Reeves wanted xrays done without brace on. New Xrays ordered and xray notified, and this nurse assisted radiology staff in xray. Office clarified that they did not order or require Dhruv wrap to RLE and also expressed concerns of removing brace and manipulating leg to apply. Pt has redness from dhruv wrap and is on lovenox for DVT prophylaxis, some swelling to RLE but mostly in knee and upper thigh in which case an Dhruv wrap is not indicated at this time. RN updated and no Dhruv wrap is to be applied to RLE. Original Note: This nurse called [facility] to update on xrays to right knee, also to clarify brace/dhruv wraps orders. This nurse talked with Brooke at their office stated she would update the physician
--- NOTE | 2020-08-03 11:20 | RAD_ITS ---
STUDY: X-RAY - RIGHT KNEE REASON FOR EXAM: Right distal femoral fracture. TECHNIQUE: 2 view(s) of the knee. COMPARISON: Earlier radiographs today. FINDINGS: There is a fracture of the distal femoral diametaphysis with impaction and questionable intra-articular extension at the mesial aspect of the lateral femoral condyle on the AP view. Normal visualized proximal tibia and fibula. Normal proximal tibiofibular articulation. Normal medial femorotibial compartment. Normal lateral femorotibial compartment. Normal patellofemoral articulation. There is soft tissue swelling. RAD/Knee 1 or 2 Views IMPRESSION: Impacted fracture of the distal femoral diametaphysis with questionable intra-articular extension. Electronically Signed: Fran De Leon MD at 14:05 EDT Tel , Service support ,
[2020-08-03 13:25] VITALS: BP 128/70; PULSE 68; RESP 16; TEMP 37.5; O2SAT 98
[2020-08-04] MEDS: Baclofen 10 MG Tablet PO ×6 (01:09→21:13)
[2020-08-04 04:11] VITALS: BP 103/61; PULSE 70; RESP 16; TEMP 36.6; O2SAT 96
[2020-08-04] MEDS: Tamoxifen 10 MG Tablet 20 MG PO (05:39)
[2020-08-04] MEDS: Fluconazole 100 MG Tablet 200 MG PO (05:39)
[2020-08-04] MEDS: Senna/Docusate Sodium 1 Tablet 2 TABLET PO (05:39)
[2020-08-04] MEDS: Cholecalciferol (VIT D3) 25 MCG TABLET (1,000 UNITS) 250 MCG PO (05:40)
[2020-08-04] MEDS: Acetaminophen 500 MG Tablet 1000 MG PO ×3 (05:40→21:13)
[2020-08-04] MEDS: Enoxaparin 30 MG/0.3 ML Syringe SC (05:41)
[2020-08-04] MEDS: Sodium Chloride 0.65% 1 SPRAY SPRAY.BTL 2 SPRAY NASAL (05:42)
[2020-08-04] MEDS: Menthol/Lanolin/Calamine/Znox 113 GM Tube 1 APPLIC TOPICAL ×2 (05:45→17:11)
[2020-08-04] MEDS: Polyethylene Glycol 3350 17 GM PACKET PO (06:37)
[2020-08-04] MEDS: DALFAMPRIDINE 10 MG TAB.ER.12H PO (09:32)
[2020-08-04 15:18] VITALS: BP 97/56; PULSE 64; RESP 16; TEMP 36.8; O2SAT 94
[2020-08-05] MEDS: Baclofen 10 MG Tablet PO ×6 (02:14→22:22)
[2020-08-05 02:16] VITALS: BP 98/46; PULSE 65; RESP 16; TEMP 37.2; O2SAT 96
[2020-08-05] MEDS: Cholecalciferol (VIT D3) 25 MCG TABLET (1,000 UNITS) 250 MCG PO (05:11)
[2020-08-05] MEDS: Acetaminophen 500 MG Tablet 1000 MG PO ×3 (05:11→22:22)
[2020-08-05] MEDS: Enoxaparin 30 MG/0.3 ML Syringe SC (05:11)
[2020-08-05] MEDS: Menthol/Lanolin/Calamine/Znox 113 GM Tube 1 APPLIC TOPICAL ×2 (05:12→17:17)
[2020-08-05] MEDS: Tamoxifen 10 MG Tablet 20 MG PO (05:12)
[2020-08-05] MEDS: Fluconazole 100 MG Tablet 200 MG PO (05:12)
[2020-08-05] MEDS: DALFAMPRIDINE 10 MG TAB.ER.12H PO (09:09)
[2020-08-05] MEDS: Polyethylene Glycol 3350 17 GM PACKET PO ×2 (10:30→17:14)
[2020-08-05 14:14] VITALS: BP 90/60; PULSE 90; RESP 16; TEMP 36.6; O2SAT 97
[2020-08-05] MEDS: Senna/Docusate Sodium 1 Tablet 2 TABLET PO (17:14)
[2020-08-06] MEDS: Baclofen 10 MG Tablet PO ×6 (02:10→21:19)
[2020-08-06 05:00] VITALS: BP 103/58; PULSE 59; RESP 18; TEMP 37; O2SAT 98
[2020-08-06] MEDS: Acetaminophen 500 MG Tablet 1000 MG PO ×3 (05:48→21:19)
[2020-08-06] MEDS: Cholecalciferol (VIT D3) 25 MCG TABLET (1,000 UNITS) 250 MCG PO (05:50)
[2020-08-06] MEDS: Polyethylene Glycol 3350 17 GM PACKET PO (05:52)
[2020-08-06] MEDS: Enoxaparin 30 MG/0.3 ML Syringe SC (05:52)
[2020-08-06] MEDS: Senna/Docusate Sodium 1 Tablet 2 TABLET PO (05:53)
[2020-08-06] MEDS: Fluconazole 100 MG Tablet 200 MG PO (05:55)
[2020-08-06] MEDS: Tamoxifen 10 MG Tablet 20 MG PO (05:55)
[2020-08-06] MEDS: Menthol/Lanolin/Calamine/Znox 113 GM Tube 1 APPLIC TOPICAL ×2 (05:56→17:10)
[2020-08-06] MEDS: DALFAMPRIDINE 10 MG TAB.ER.12H PO (08:20)
--- NOTE | 2020-08-06 13:44 | PT ---
Spoke with [facility] regarding pt's T-ROM brace. T-ROM brace is not supporting pt's R knee and due to pt's tone and muscle spasms. Requested different brace for pt for better support. [facility] will call back tomorrow with bracing recommendations.
[2020-08-06 14:50] VITALS: BP 98/59; PULSE 84; RESP 18; TEMP 36.3; O2SAT 98
[2020-08-07] MEDS: Baclofen 10 MG Tablet PO ×6 (02:40→21:49)
[2020-08-07 04:29] VITALS: BP 99/56; PULSE 70; RESP 16; TEMP 37.4; O2SAT 94
[2020-08-07] MEDS: Cholecalciferol (VIT D3) 25 MCG TABLET (1,000 UNITS) 250 MCG PO (05:51)
[2020-08-07] MEDS: Tamoxifen 10 MG Tablet 20 MG PO (05:52)
[2020-08-07] MEDS: Acetaminophen 500 MG Tablet 1000 MG PO ×3 (05:52→21:49)
[2020-08-07] MEDS: Fluconazole 100 MG Tablet 200 MG PO (05:52)
[2020-08-07] MEDS: Enoxaparin 30 MG/0.3 ML Syringe SC (05:57)
[2020-08-07 05:58] LABS: Absolute Lymphocyte Count 1.33 X10^3/uL (0.83-4.51); Absolute Neutrophil Count 2.7 X10^3/uL (2.0-7.7); Basophil# 0.04 X10^3/uL; Basophil% 0.8 % (0-1); Eosinophil# 0.21 X10^3/uL; Eosinophils% 4.4 % (0-5); Hematocrit 29.5 % (37-47); Hemoglobin 9.5 g/dL (12.0-15.0); Lymphocyte # 1.33 X10^3/ul (0.83-4.51); Lymphocyte % 27.8 % (19-41); Mean Corp Hgb Conc 32.2 g/dL (32-36); Mean Corpuscular Hgb 33.3 pg (27.0-32.0); Mean Corpuscular Volume 103.5 fL (81-99); Monocyte# 0.47 X10^3/uL; Monocyte% 9.8 % (0-10); Neutrophil % 56.6 % (47-70); Platelet Count 374 K/mm3 (150-450); RBC Distribution Width SD 49.8 fl (35.1-43.9); Red Blood Count 2.85 M/mm3 (4.2-5.4); White Blood Count 4.8 K/mm3 (4.4-11.0)
[2020-08-07] MEDS: Menthol/Lanolin/Calamine/Znox 113 GM Tube 1 APPLIC TOPICAL ×2 (06:01→17:11)
[2020-08-07 06:16] LABS: Anion Gap 4 (5-15); BUN 12 mg/dL (7-18); BUN/Creat Ratio 27.5 RATIO (10-20); Calcium,Total 8.7 mg/dL (8.5-10.1); Chloride 105 mmol/L (98-107); Creatinine, Serum 0.44 mg/dL (0.55-1.02); EST Glomerular Filtration Rate 159 mL/min (>60); Est Glom Filt Rate - Afr Amer 193 mL/min (>60); Estimated Creatinine Clearance 119.99 ml/min; Glucose 87 mg/dL (74-106); Potassium 4.1 mmol/L (3.5-5.1); Sodium Level 139 mmol/L (136-145)
[2020-08-07 11:10] VITALS: PULSE 68; RESP 18; O2SAT 98
--- NOTE | 2020-08-07 13:52 | NURSING ---
WILL BE IN FOR TEACHING AND UPDATES.
[2020-08-07 14:45] VITALS: BP 102/56; PULSE 64; RESP 16; TEMP 37.3; O2SAT 96
[2020-08-07] MEDS: Sodium Chloride 0.65% 1 SPRAY SPRAY.BTL 2 SPRAY NASAL (17:11)
[2020-08-08] MEDS: Baclofen 10 MG Tablet PO ×6 (02:40→20:47)
[2020-08-08 05:00] VITALS: BP 99/55; PULSE 68; RESP 16; TEMP 37.2; O2SAT 97
[2020-08-08] MEDS: Polyethylene Glycol 3350 17 GM PACKET PO (06:00)
[2020-08-08] MEDS: Senna/Docusate Sodium 1 Tablet 2 TABLET PO ×2 (06:00→17:22)
[2020-08-08] MEDS: Cholecalciferol (VIT D3) 25 MCG TABLET (1,000 UNITS) 250 MCG PO (06:00)
[2020-08-08] MEDS: Acetaminophen 500 MG Tablet 1000 MG PO ×3 (06:00→20:46)
[2020-08-08] MEDS: Tamoxifen 10 MG Tablet 20 MG PO (06:00)
[2020-08-08] MEDS: Fluconazole 100 MG Tablet 200 MG PO (06:02)
[2020-08-08] MEDS: Enoxaparin 30 MG/0.3 ML Syringe SC (06:03)
[2020-08-08] MEDS: Menthol/Lanolin/Calamine/Znox 113 GM Tube 1 APPLIC TOPICAL ×2 (06:20→17:20)
[2020-08-08 08:47] VITALS: PULSE 64; O2SAT 95
[2020-08-08] MEDS: DALFAMPRIDINE 10 MG TAB.ER.12H PO ×2 (09:00→20:47)
[2020-08-08 10:28] LABS: Mucous, Urine 0 SEEN /hpf (<or=2+); Red Blood Cells-Urine 0 SEEN /hpf (0-5); Squamous Epithelial Cells - UA 0 SEEN /hpf (5-10)
[2020-08-08 10:30] LABS: Color, Urine Yellow (Yellow); Glucose, Dipstick Normal (Normal); Ketone-Dipstick Negative (Negative); Leukocyte Esterase-Dipstick 500 /ul (Negative); Nitrite-Dipstick Positive (Negative); Occult Blood-Urine 25 /ul (Negative); Protein-Dipstick Negative (Negative); Specific Gravity, Urine 1.015 (1.002-1.030); Urine Bilirubin Dipstick Negative (Negative); Urine Clarity Clear (Clear); Urine Urobilinogen 1 mg/dl (Normal); Urine pH 6.5 (5.0 - 8.0)
[2020-08-08 10:37] LABS: Bacteria RARE /hpf (None Seen); White Blood Cells 10-25 SEEN /hpf (0-5)
[2020-08-08 14:01] VITALS: BP 94/58; PULSE 82; RESP 18; TEMP 36.4; O2SAT 97
--- NOTE | 2020-08-08 15:13 | CASEMGMT ---
Social Work Insurance issued LCD 08/08, DC 08/09. Spoke with pt and she is agreeable. to transport. Referral made to [employer] for half-bed rail. Referral made to [facility] for drop arm BSC and slideboard. Referral made to [facility] PT/OT/SN/ACEVEDO. Plan: DC home with 08/09, [facility] PT/OT/SN/ACEVEDO, half bed rail, drop arm BSC, slideboard PARVIN PorterW
[2020-08-08] MEDS: Cefdinir 300 MG Capsule PO (18:33)
--- NOTE | 2020-08-08 20:09 | PCM.DC.SUM ---
Providers Date of Admission: 07/23/20 Primary Care Physician: Dr. Mario Soliz DO Reason For Visit: RIGHT FEMUR FRACTURE, UTI Diagnosis Discharge Diagnosis (1) Debility: Status: Acute Code(s): R53.81 - Other malaise (2) Closed fracture of right distal femur: Status: Acute Code(s): S72.401A - Unspecified fracture of lower end of right femur, initial encounter for closed fracture (3) Complicated urinary tract infection: Status: Acute Code(s): N39.0 - Urinary tract infection, site not specified (4) Nausea & vomiting: Status: Acute Code(s): R11.2 - Nausea with vomiting, unspecified (5) Multiple sclerosis: Status: Acute Code(s): G35 - Multiple sclerosis (6) Urinary retention: Status: Acute Code(s): R33.9 - Retention of urine, unspecified (7) Breast cancer: Status: Acute Code(s): C50.919 - Malignant neoplasm of unspecified site of unspecified female breast (8) Muscle spasm: Status: Acute Code(s): M62.838 - Other muscle spasm Medications at Discharge Home Medications baclofen 10 mg tablet 10 mg PO Q4H 02/28/17 cholecalciferol (vitamin D3) 10,000 unit PO DAILY 10/09/17 dalfampridine 10 mg PO BID PRN PRN 03/24/18 Metamucil Fiber Singles 1 packet PO DAILY 07/23/20 tamoxifen 20 mg PO DAILY 07/23/20 acetaminophen 1,000 mg PO TID #0 tab 08/08/20 cefdinir 300 mg PO Q12 6 Days #12 cap 08/08/20 Hospital Course Operations None Procedures None Summary of Care Provided Minutes Spent on Discharge: 35 Hospital Course: 54 year old female with below past medical history significant for multiple sclerosis, hospitalized for right distal femur fracture, treated non-operatively, complicated by urinary tract infection, admitted to TCU with debility, here for rehabilitation, strengthening, prior to discharge home with . On TCU resident developed nausea, vomiting, ileus, constipation treated with IV fluids, antiemetics, prokinetics, laxatives, she slowly improved and is back to eating normally. Resident also treated for shabbir urinary tract infection with course of fluconazole. 08/08/2020 Resident developed dysuria, Urinalysis consistent with urinary tract infection, will discharge home on 7 day course of Cefdinir, please follow up on urine culture results. Furthermore, resident now unable to self cath due to right distal femur fracture, she will discharge home with indwelling kaye catheter. Discharge home with 08/09/2020, [facility] PT/OT/SN/ACEVEDO, Half bed rail, drop arm bedside commode, Slideboard. Physical Exam Const alert and oriented x3 General Appearance: cooperative HEENT normocephalic Eyes PERRL and EOMs intact bilaterally Neck supple, no JVD and no carotid bruits Resp normal respiratory effort, normal air movement and clear to auscultation bilaterally Cardio regular rate and regular rhythm GI normal to inspection, nondistended, normoactive bowel sounds, non-tender and non-distended Extremity normal capillary refill Extremity Narrative: Right lower extremity brace. General Extremity: Negative for edema Skin no rashes or lesions noted General Skin Exam: no breakdown Psych affect normal Appearance: appropriate ABG / Lab / Microbiology Data Result Diagrams: 08/07/20 05:30 08/07/20 05:30 Laboratory: Laboratory Results - last 24 hr 08/08/20 10:20 Urine Color Yellow Urine Clarity Clear Urine pH 6.5 Ur Specific [place] 1.015 Urine Protein Negative Urine Glucose (UA) Normal Urine Ketones Negative Urine Occult Blood 25 H Urine Nitrite Positive H Urine Bilirubin Negative Urine Urobilinogen 1 H Ur Leukocyte Esterase 500 H Urine RBC 0 SEEN Urine WBC 10-25 SEEN Ur Squamous Epith Cells 0 SEEN Urine Bacteria RARE Urine Mucus 0 SEEN Microbiology: Microbiology 07/29/20 07:15 Urine Catheter - Catheter Urine Culture - Final Yeast, not Shabbir albicans D/C Instructions Discharge Diet: No restrictions Discharge Activity: Return to Normal Activity and May Shower Weight Bearing Status: No weight bearing (Right lower extremity.) Call your doctor if you observe: Fever of 101 or Higher, Inability to urinate, Inability to have a bowel movement, Shortness of breath, Fainting spells, Chest pain, Calf discomfort and Uncontrolled pain Additional Instructions: Discharge home with 08/09/2020, [facility] PT/OT/SN/ACEVEDO, Half bed rail, drop arm bedside commode, Slideboard. Pending Tests Upon Discharge: Urine culture. Please Follow Up With: Preston Reeves MD When: 2 weeks. Meaningful Use Info Meaningful Use Diagnoses (Choose all that apply): None applicable Discharge Plan Admission Admit Date/Time: 07/23/20 16:30 Primary Reason for Your Visit: Debility Attending Provider: Brad Carroll Chi Primary Care Provider: Mario Soliz Instructions Additional Instructions / Restrictions: Discharge home with 08/09/2020, [facility] PT/OT/SN/ACEVEDO, Half bed rail, drop arm bedside commode, Slideboard. Discharge Orders/Prescriptions Prescriptions: New acetaminophen 500 mg Tablet 1,000 mg PO TID Qty: 0 RF: 0 cefdinir 300 mg Capsule 300 mg PO Q12 6 Days Qty: 12 RF: 0 Continued baclofen 10 mg tablet 10 mg PO Q4H RF: 0 cholecalciferol (vitamin D3) 10,000 UNIT capsule 10,000 unit PO DAILY RF: 0 dalfampridine 10 MG tablet extended release 12 hr 10 mg PO BID PRN PRN (Reason: MS) RF: 0 tamoxifen 20 MG tablet 20 mg PO DAILY RF: 0 Metamucil Fiber Singles 3.4 gram powder in packet 1 packet PO DAILY RF: 0 Discontinued acetaminophen 325 MG tablet 650 mg PO Q6H PRN PRN (Reason: Pain) RF: 0 oxycodone 5 mg Tablet 5 mg PO Q6H PRN (Reason: Pain Score 4-5) 3 Days Qty: 12 RF: 0 polyethylene glycol 3350 17 gram powder in packet 17 g PO DAILY RF: 0 sennosides-docusate sodium [Stool Softener-Stimulant Laxat] 8.6-50 mg tablet 1 tab PO BID RF: 0 nitrofurantoin monohyd/m-cryst [Macrobid] 100 mg capsule 100 mg PO BID RF: 0 Referrals / Follow Up: Mario Soliz DO [Primary Care Provider] - Disposition Disposition (needs filled in before D/C Order can be placed): Home Health Service
[2020-08-08] MEDS: Sodium Chloride 0.65% 1 SPRAY SPRAY.BTL 2 SPRAY NASAL (20:50)
[2020-08-09] MEDS: Baclofen 10 MG Tablet PO ×5 (02:53→16:50)
[2020-08-09 05:00] VITALS: BP 128/73; PULSE 80; RESP 16; TEMP 37; O2SAT 96
[2020-08-09] MEDS: Fluconazole 100 MG Tablet 200 MG PO (06:48)
[2020-08-09] MEDS: Cholecalciferol (VIT D3) 25 MCG TABLET (1,000 UNITS) 250 MCG PO (06:48)
[2020-08-09] MEDS: Acetaminophen 500 MG Tablet 1000 MG PO ×2 (06:49→13:33)
[2020-08-09] MEDS: Cefdinir 300 MG Capsule PO ×2 (06:49→16:50)
[2020-08-09] MEDS: Enoxaparin 30 MG/0.3 ML Syringe SC (06:49)
[2020-08-09] MEDS: Tamoxifen 10 MG Tablet 20 MG PO (06:51)
[2020-08-09] MEDS: Menthol/Lanolin/Calamine/Znox 113 GM Tube 1 APPLIC TOPICAL ×2 (06:52→16:42)
[2020-08-09] MEDS: Polyethylene Glycol 3350 17 GM PACKET PO (06:55)
[2020-08-09] MEDS: DALFAMPRIDINE 10 MG TAB.ER.12H PO (09:33)
[2020-08-09 10:10] VITALS: PULSE 76; RESP 18; O2SAT 98
--- NOTE | 2020-08-09 13:35 | NURSING ---
pt being discharged today. gave pt her home meds out of med box. rn aware.
[2020-08-09 14:02] VITALS: BP 113/51; PULSE 66; RESP 16; TEMP 36.7; O2SAT 100
== END 2020-08-09 17:17 | disposition home health service (06) | DRG 560 ==
PROVIDERS: Admitting Provider Family Medicine Geriatric Medicine; PCP Family Medicine; Visit Provider Family Medicine Geriatric Medicine
DX: S72.401D Unspecified fracture of lower end of right femur, subsequent encounter for closed fracture with routine healing (principal); N39.0 Urinary tract infection, site not specified; G35 Multiple sclerosis; M62.838 Other muscle spasm; Z99.3 Dependence on wheelchair; Z79.899 Other long term (current) drug therapy; Z87.891 Personal history of nicotine dependence; X58.XXXD Exposure to other specified factors, subsequent encounter; C50.919 Malignant neoplasm of unspecified site of unspecified female breast
CPT/HCPCS: 36415; 71046; 73560; 74018; 74270; 80048; 81001; 85025; 87086; 87088; 87186; 87635; 97110; 97162; 97166; 97530; 97535; A4216; J7799; U0002

== ENCOUNTER 2020-08-23 16:33 | Outpatient (RCR) | payer OTHER, SELFPAY ==
[2018-02-01 11:47] VITALS: BMI 15.0
[2020-08-23 16:56] LABS: Color, Urine Yellow (Yellow); Glucose, Dipstick Normal (Normal); Ketone-Dipstick Negative (Negative); Leukocyte Esterase-Dipstick 500 /ul (Negative); Nitrite-Dipstick Positive (Negative); Occult Blood-Urine 150 /ul (Negative); Protein-Dipstick Negative (Negative); Specific Gravity, Urine 1.015 (1.002-1.030); Urine Bilirubin Dipstick Negative (Negative); Urine Clarity Cloudy (Clear); Urine Urobilinogen Normal (Normal)
== END 2020-08-23 18:00 | disposition home or self-care (01) ==
LOC: HHLAB 16:33
PROVIDERS: PCP Family Medicine; Visit Provider Family Medicine
DX: N39.0 Urinary tract infection, site not specified (principal)
CPT/HCPCS: 81002; 87077; 87086; 87088; 87186

== ENCOUNTER 2020-12-02 09:04 | Emergency (ER) | payer OTHER, SELFPAY ==
[2018-02-01 11:47] VITALS: BMI 15.0
[2020-12-02 09:06] VITALS: BP 93/76; PULSE 113; RESP 16; TEMP 37.6; O2SAT 97; BMI 16.0
--- NOTE | 2020-12-02 09:22 | EKG12_ITS ---
Test Reason : DIZZINESS Blood Pressure : / mmHG Vent. Rate : 086 BPM Atrial Rate : 086 BPM P-R Int : 120 ms QRS Dur : 082 ms QT Int : 356 ms P-R-T Axes : 054 077 -04 degrees QTc Int : 426 ms Normal sinus rhythm Normal ECG Confirmed by ETHEL MARRERO, AMANDEEP ([id number]), story editor KARMEN SÁNCHEZ ([id number]) on 12/04/2020 1:42:10 PM Referred By: JENNIFER Confirmed By:AMANDEEP DAVENPORT MD
--- NOTE | 2020-12-02 09:22 | RAD_ITS ---
STUDY: X-RAY CHEST REASON FOR EXAM: Female, 55 years old. Stroke TECHNIQUE: Single AP portable view of the chest. COMPARISON: 07/29/2020 FINDINGS: The lungs are clear and expanded. There is no demonstrated pleural abnormality. Normal size heart. Normal mediastinum and felipe. Normal visualized pulmonary arteries. Normal visualized aortic arch and descending thoracic aorta. Normal visualized thoracic spine. Normal visualized ribs, clavicles, and shoulders. There is no demonstrated abnormality of the visualized soft tissue structures of the upper abdomen. RAD/Chest 1 View (Portable) IMPRESSION: Normal x-ray examination of the chest. Electronically Signed: López Mcmahon MD at 10:16 EDT Tel , Service support ,
[2020-12-02 09:53] LABS: Absolute Lymphocyte Count 1.06 X10^3/uL (0.83-4.51); Absolute Neutrophil Count 9.1 X10^3/uL (2.0-7.7); Basophil# 0.05 X10^3/uL; Basophil% 0.4 % (0-1); Eosinophils% 1.7 % (0-5); Hematocrit 36.9 % (37-47); Hemoglobin 12.2 g/dL (12.0-15.0); Lymphocyte # 1.06 X10^3/ul (0.83-4.51); Lymphocyte % 9.1 % (19-41); Mean Corp Hgb Conc 33.1 g/dL (32-36); Mean Corpuscular Hgb 32.1 pg (27.0-32.0); Mean Corpuscular Volume 97.1 fL (81-99); Mean Platelet Vol. 12.1 fl (6.2-12.0); Monocyte# 1.16 X10^3/uL; NRBC Flagged by Analyzer 0.2 % (0-5); Neutrophil # 9.09 X10^3/uL (2.7-7.7); Neutrophil % 78.3 % (47-70); Platelet Count 214 K/mm3 (150-450); RBC Distribution Width CV 14.2 % (11.6-14.6); RBC Distribution Width SD 50.2 fl (35.1-43.9); White Blood Count 11.6 K/mm3 (4.4-11.0)
[2020-12-02 10:04] LABS: Anion Gap 8 (5-15); BUN 8 mg/dL (7-18); BUN/Creat Ratio 23.2 RATIO (10-20); Chloride 104 mmol/L (98-107); Creatinine, Serum 0.34 mg/dL (0.55-1.02); EST Glomerular Filtration Rate 209 mL/min (>60); Est Glom Filt Rate - Afr Amer 253 mL/min (>60); Estimated Creatinine Clearance 136.55 ml/min; Glucose 89 mg/dL (74-106); Potassium 4.2 mmol/L (3.5-5.1); Sodium Level 137 mmol/L (136-145)
--- NOTE | 2020-12-02 10:06 | EDS_ITS ---
HPI History of Present Illness Chief Complaint: Dizziness Informant: patient Onset/Context/Timing Onset: Days (2 to 3 days) Context: Gradual Onset Current Severity: Mild Maximum Severity: Moderate Worsened by: Sitting up Narrative Narrative: Patient reports feeling nauseous and dizzy for the past couple of days. She states symptoms are worse when she sits up and better when she lays down flat. She is concerned about possibility of UTI or an infected wound on her tailbone. Patient states she takes a low-dose Macrobid due to history of UTIs. Yesterday her doctor told her to go ahead take it twice a day. Symptoms were not improved today so she came to the emergency room. [facility] Medical History Breast cancer Chronic indwelling Pandey catheter Multiple sclerosis Home Medications baclofen 10 mg tablet 20 mg PO Q4H 02/28/17 [History Last Taken 10/12/17 06:00] cholecalciferol (vitamin D3) 10,000 unit PO DAILY 10/09/17 [History Last Taken Unknown] dalfampridine 10 mg PO BID PRN PRN 03/24/18 [History Last Taken 07/19/20] Metamucil Fiber Singles 1 packet PO DAILY 07/23/20 [History Last Taken Unknown] tamoxifen 20 mg PO DAILY 07/23/20 [History Last Taken Unknown] acetaminophen 1,000 mg PO TID #0 tab 08/08/20 [Rx Last Taken Unknown] nitrofurantoin macrocrystal 25 mg capsule 50 mg PO QHS 11/06/20 [History Last Taken Unknown] cephalexin 500 mg PO Q6 #40 cap 12/02/20 [Rx Last Taken Unknown] doxycycline monohydrate 100 mg PO BID #20 cap 12/02/20 [Rx Last Taken Unknown] linaclotide [Linzess] 145 mcg PO DAILY 12/02/20 [History Last Taken Unknown] Allergy/AdvReac Type Severity Reaction Status Date / Time ciprofloxacin Allergy Mild unknown Verified 12/02/20 09:08 sulfamethoxazole AdvReac Severe Nausea Verified 12/02/20 09:08 [From Bactrim] trimethoprim [From Bactrim] AdvReac Severe Nausea Verified 12/02/20 09:08 Family History Aunt Breast cancer Mother Diabetes Surgical History h/o tonsillectomy S/P left mastectomy (~10/12/17) Social History household members: spouse Smoking Status: Former smoker alcohol intake: never ROS ROS ED Constitutional Constitutional ED: Denies chills or fever(s) Eyes Eyes: Denies change in vision ENT ENT ED: Denies sore throat Cardiovascular Cardiovascular: Denies chest pain Respiratory/Chest Respiratory/Chest: Denies cough or dyspnea Gastrointestinal Gastrointestinal: Reports nausea; Denies abdominal pain, diarrhea or vomiting Genitourinary Genitourinary ED: Denies dysuria Musculoskeletal Musculoskeletal: Denies back pain Integumentary Reports other Details: Wound over tailbone ; Denies rash Neurologic Neurologic: Reports weakness; Denies headache(s) Allergic/Immunologic Allergic/Immunologic ED: Denies urticaria EXAM Physical Exam Const Vital Signs: 12/02/20 09:06 12/02/20 10:38 Temperature 99.7 F H Temperature Source Temporal Pulse Rate 113 H Respiratory Rate 16 Respiratory Effort Normal Non-Labored Respiratory Pattern Normal Blood Pressure 93/76 Blood Pressure Mean 81 Pulse Ox 97 93 Oxygen Delivery Method Room Air Room Air Positive well nourished and well developed General Appearance ED: well developed HEENT Reports normocephalic and head/scalp atraumatic Eyes PERRL and EOMs intact bilaterally Neck supple Chest Wall inspection of chest normal and palpation of chest normal Resp normal respiratory effort and clear to auscultation bilaterally Cardio regular rate and regular rhythm GI normal to inspection, nondistended, normoactive bowel sounds and non-tender Palpation: soft Back/Spine no CVA tenderness Extremity Extremity Narrative: Contracture of the lower extremities Neuro oriented x3 Sensorium / Orientation: alert Psych mental status grossly normal Skin Skin Narrative: 2 cm diameter round pressure ulcer over the coccyx. Foul odor noted but no drainage. Minimal surrounding erythema. MDM MDM MDM Narrative Medical decision making narrative: Lab work, EKG, urinalysis obtained. Patient given IV fluids. Lab Data Attestation: I reviewed the patient's lab results. Labs: Laboratory Results - last 24 hr 12/02/20 12/02/2021 09:43 09:43 10:25 WBC 11.6 H RBC 3.80 L Hgb 12.2 Hct 36.9 L MCV 97.1 MCH 32.1 H MCHC 33.1 RDW Std Deviation 50.2 H RDW Coeff of Raisa 14.2 Plt Count 214 MPV 12.1 H Immature Gran % (Auto) 0.500 Neut % (Auto) 78.3 H Lymph % (Auto) 9.1 L [place] % (Auto) 10.0 Eos % (Auto) 1.7 Baso % (Auto) 0.4 Absolute Neuts (auto) 9.1 H Absolute Lymphs (auto) 1.06 Nucleated RBC % 0.2 Sodium 137 Potassium 4.2 Chloride 104 Carbon Dioxide 25.0 Anion Gap 8 BUN 8 Creatinine 0.34 L Estim Creat Clear Calc 136.55 Est GFR (MDRD) Af Amer 253 Est GFR (MDRD) Non-Af 209 BUN/Creatinine Ratio 23.2 H Glucose 89 Lactic Acid Calcium 9.0 Urine Color Yellow Urine Clarity Sl. Cloudy Urine pH 5.0 Ur Specific [place] 1.025 Urine Protein 30 H Urine Glucose (UA) Normal Urine Ketones 150 A* Urine Occult Blood 150 H Urine Nitrite Positive H Urine Bilirubin Negative Urine Urobilinogen Normal Ur Leukocyte Esterase 500 H Urine RBC 0-5 SEEN Urine WBC 10-25 SEEN Ur Squamous Epith Cells 0-5 SEEN Urine Bacteria 2+ Urine Mucus Not Reportable Urine Test Negative POC Glucose 12/02/20 12/02/20 10:35 10:46 WBC RBC Hgb Hct MCV MCH MCHC RDW Std Deviation RDW Coeff of Raisa Plt Count MPV Immature Gran % (Auto) Neut % (Auto) Lymph % (Auto) [place] % (Auto) Eos % (Auto) Baso % (Auto) Absolute Neuts (auto) Absolute Lymphs (auto) Nucleated RBC % Sodium Potassium Chloride Carbon Dioxide Anion Gap BUN Creatinine Estim Creat Clear Calc Est GFR (MDRD) Af Amer Est GFR (MDRD) Non-Af BUN/Creatinine Ratio Glucose Lactic Acid 0.8 Calcium Urine Color Urine Clarity Urine pH Ur Specific [place] Urine Protein Urine Glucose (UA) Urine Ketones Urine Occult Blood Urine Nitrite Urine Bilirubin Urine Urobilinogen Ur Leukocyte Esterase Urine RBC Urine WBC Ur Squamous Epith Cells Urine Bacteria Urine Mucus Urine Test POC Glucose 78 Radiography Diagnostic Testing: Radiology Impression Chest X-Ray 12/02/20 09:22 IMPRESSION: Normal x-ray examination of the chest. Electronically Signed: López Mcmahon MD at 10:16 EDT Tel , Service support , EKG Initial EKG: Attestation: I personally reviewed and interpreted this EKG as follows: Interpretation: Sinus Rhythm (Sinus 86 with no acute ischemia.) Treatment and Re-Evaluation Comments:: Repeat evaluation patient reports feeling much improved. Blood pressure is in the 1 teen range. Patient does have evidence of UTI but does have chronic indwelling Pandey catheter. On review of her prior urine cultures it appears that she typically grows E. coli with mcnally sensitivity. Patient is given a dose of IV Rocephin here. Blood and urine cultures were obtained. Wound culture from the coccyx wound is obtained. Patient will be treated with doxycycline and Keflex to cover both the coccyx wound as well as the urine. Return instructions are provided. Discharge Plan Triage Chief Complaint: Dizziness ED Provider: Simi Gould Dx/Rx/DC Orders Clinical Impression: Cystitis, Pressure ulcer Instructions: Pressure Ulcer Tx Clean Dress, ED CYSTITIS Female Adult Prescriptions: New doxycycline monohydrate 100 MG capsule 100 mg PO BID Qty: 20 RF: 0 cephalexin 500 mg capsule 500 mg PO Q6 Qty: 40 RF: 0 No Action baclofen 10 mg tablet 20 mg PO Q4H RF: 0 nitrofurantoin macrocrystal 25 mg capsule 50 mg PO QHS RF: 0 cholecalciferol (vitamin D3) 10,000 UNIT capsule 10,000 unit PO DAILY RF: 0 dalfampridine 10 MG tablet extended release 12 hr 10 mg PO BID PRN PRN (Reason: MS) RF: 0 tamoxifen 20 MG tablet 20 mg PO DAILY RF: 0 Metamucil Fiber Singles 3.4 gram powder in packet 1 packet PO DAILY RF: 0 acetaminophen 500 mg Tablet 1,000 mg PO TID Qty: 0 RF: 0 Linzess 145 mcg capsule 145 mcg PO DAILY RF: 0 Primary Care Provider: Mario Soliz Referrals: Mario Soliz, [Primary Care Provider] - 1 Week if not improving Disposition Disposition: Home, Self Care
[2020-12-02 10:38] VITALS: O2SAT 93
[2020-12-02] MEDS: 0.9% Normal Saline 1,000 ML 50 ML IV (10:40)
[2020-12-02 10:43] LABS: Color, Urine Yellow (Yellow); Glucose, Dipstick Normal (Normal); Leukocyte Esterase-Dipstick 500 /ul (Negative); Nitrite-Dipstick Positive (Negative); Occult Blood-Urine 150 /ul (Negative); Protein-Dipstick 30 mg/dl (Negative); Specific Gravity, Urine 1.025 (1.002-1.030); Urine Bilirubin Dipstick Negative (Negative); Urine Clarity Sl. Cloudy (Clear); Urine Urobilinogen Normal (Normal)
[2020-12-02 10:48] LABS: Ketone-Dipstick 150 mg/dl (Negative)
[2020-12-02 10:53] LABS: Bacteria 2+ /hpf (None Seen); Red Blood Cells-Urine 0-5 SEEN /hpf (0-5); Squamous Epithelial Cells - UA 0-5 SEEN /hpf (5-10); White Blood Cells 10-25 SEEN /hpf (0-5)
[2020-12-02 10:54] LABS: Internal QC Validated? YES +Cl - CLEAR BKGD; Pregnancy, Urine Negative Negative
[2020-12-02 10:56] LABS: Bedside Glucose 78 mg/dL (70-110)
[2020-12-02 11:08] LABS: Lactic Acid 0.8 mmol/L (0.4-1.9)
[2020-12-02] MEDS: Ceftriaxone 1 GM/50 ML BAG IV (11:44)
[2020-12-02 14:46] VITALS: BP 116/67; PULSE 86; RESP 16; TEMP 37.2; O2SAT 94
== END 2020-12-02 14:48 | disposition home or self-care (01) ==
PROVIDERS: Emergency Provider Emergency Medicine; PCP Family Medicine
DX: N30.90 Cystitis, unspecified without hematuria (principal); L89.159 Pressure ulcer of sacral region, unspecified stage; G35 Multiple sclerosis; Z85.3 Personal history of malignant neoplasm of breast; Z87.440 Personal history of urinary (tract) infections; Z87.891 Personal history of nicotine dependence
CPT/HCPCS: 71045; 80048; 81001; 81025; 82962; 83605; 85025; 87040; 87070; 87077; 87086; 87088; 87186; 87205; 87426; 93005; 96361; 96365; 99285; J7030; A4216

== ENCOUNTER 2020-12-06 14:20 | Emergency (ER) | payer OTHER, SELFPAY ==
[2018-02-01 11:47] VITALS: BMI 15.0
[2020-12-06 14:22] VITALS: BP 81/70; PULSE 71; RESP 16; TEMP 36.8; O2SAT 98; BMI 16.5
[2020-12-06 14:50] VITALS: BP 111/93; PULSE 76; RESP 16; TEMP 36.8; O2SAT 99
--- NOTE | 2020-12-06 15:45 | EDS_ITS ---
HPI History of Present Illness Chief Complaint: Wound Informant: patient Narrative Narrative: Patient is a wheelchair-bound MS patient who presents with a sacral pressure ulcer/wound that is been present for over a month but has been feeling worse more painful lately. She was seen here on Thursday, it had been draining some and she was lightheaded, tired, and nauseated. She was started on doxycycline and cephalexin for that and a urinary tract infection, since she is allergic to sulfa drugs I presume the Doxy was to help cover her against MRSA. Culture of the discharge from the wound shows E. coli largely sensitive, and culture from the urine shows Pseudomonas aeruginosa, sensitive to everything it was tested against including cefepime. She presents today because home health nurse looked at the wound and thought she needed to be evaluated emergently in the emergency department. She did go home and try to make an appointment with her doctor as directed from her visit on Thursday, but they cannot get her in until the least next week. The patient admits that the nurse that was there today did not see it on Thursday when she was seen here, and this is the 1st time the patient has met her. She states that the dizziness, nausea, fatigue, is all resolved and generally speaking she feels well now. [facility] Medical History Breast cancer Chronic indwelling Pandey catheter Multiple sclerosis Home Medications baclofen 10 mg tablet 20 mg PO Q4H 02/28/17 [History Last Taken 10/12/17 06:00] cholecalciferol (vitamin D3) 10,000 unit PO DAILY 10/09/17 [History Last Taken Unknown] dalfampridine 10 mg PO BID PRN PRN 03/24/18 [History Last Taken 07/19/20] Metamucil Fiber Singles 1 packet PO DAILY 07/23/20 [History Last Taken Unknown] tamoxifen 20 mg PO DAILY 07/23/20 [History Last Taken Unknown] nitrofurantoin macrocrystal 25 mg capsule 50 mg PO QHS 11/06/20 [History Last Taken Unknown] Linzess 145 mcg PO DAILY 12/02/20 [History Last Taken Unknown] cephalexin 500 mg PO Q6 #40 cap 12/02/20 [Rx Last Taken Unknown] doxycycline monohydrate 100 mg PO BID #20 cap 12/02/20 [Rx Last Taken Unknown] Allergy/AdvReac Type Severity Reaction Status Date / Time ciprofloxacin Allergy Mild unknown Verified 12/06/20 14:21 sulfamethoxazole AdvReac Severe Nausea Verified 12/06/20 14:21 [From Bactrim] trimethoprim [From Bactrim] AdvReac Severe Nausea Verified 12/06/20 14:21 Family History Aunt Breast cancer Mother Diabetes Surgical History h/o tonsillectomy S/P left mastectomy (~10/12/17) Social History household members: spouse Smoking Status: Former smoker alcohol intake: never ROS ROS ED Constitutional Constitutional ED: Denies chills or fever(s) Eyes Eyes: Denies change in vision or diplopia ENT ENT ED: Denies rhinorrhea or sore throat Cardiovascular Cardiovascular: Denies chest pain or palpitations Respiratory/Chest Respiratory/Chest: Denies cough or dyspnea Gastrointestinal Gastrointestinal: Denies abdominal pain, diarrhea, nausea or vomiting Genitourinary Genitourinary ED: Denies dysuria or hematuria Musculoskeletal Musculoskeletal: Denies back pain or neck pain Integumentary Reports wounds; Denies rash Neurologic Neurologic: Reports paresthesias, weakness and other Details: Baseline deficits nothing new ; Denies headache(s) Psychiatric Psychiatric: Denies anxiety or suicidal thoughts EXAM Physical Exam Const Vital Signs: 12/06/20 14:22 12/06/20 14:50 Temperature 98.3 F 98.3 F Temperature Source Temporal Temporal Pulse Rate 71 76 Respiratory Rate 16 16 Blood Pressure 81/70 L 111/93 H Blood Pressure Mean 73 99 Pulse Ox 98 99 Oxygen Delivery Method Room Air Room Air Positive well nourished and well developed Constitutional Narrative: Well-appearing, conversive in full sentences General Appearance ED: well developed and NAD HEENT Reports moist mucous membranes normocephalic and atraumatic Eyes PERRL and EOMs intact bilaterally Neck full ROM and supple Resp normal respiratory effort and clear to auscultation bilaterally Cardio regular rate, regular rhythm and no murmurs GI non-tender and non-distended Auscultation: normoactive bowel sounds Palpation: soft Narrative: Pandey catheter in place, no hematuria, urine flowing, sediment present Back/Spine no CVA tenderness General Back: other FROM Extremity normal to inspection General Extremety ED: Negative for edema, pulses abnormal or tenderness General Extremity: Negative for edema or pulses abnormal Neuro oriented x3, CN's II-XII intact bilaterally and no sensory deficits noted Sensorium / Orientation: awake and alert Motor Exam: strength 5/5 throughout Skin no rashes or lesions noted Skin Narrative: Sacral decubitus ulcer, there is some dusky tissue over it and around it, and very slight amount of erythema, tender, no fluctuance or discharge expressible. No abscess. Approximately 2-3 cm diameter total. Relatively superficial, the dermis is intact. No frankly necrotic tissue no subcutaneous emphysema. MDM MDM MDM Narrative Medical decision making narrative: I am actually reassured by the appearance of this wound, it is questionable whether it is actually infected or not I agree with continuing antibiotics, and since she was sent here by EMS and has an IV, actually gave her 2 g of cefepime which both of her positive culture results are sensitive to. The Pseudomonas in the urine only grew out 25-50,000 colony- forming units, so I do not think we need to change her prescriptions right now. I would continue them. We got a hold of the wound care center which is what I think she needs, may be some debridement that does not need to be done emergently. There is no necrotic retained tissue that is going to cause danger at this time. Wound care will get her in but their next available appointment is 1 week from now. In the meantime nursing will attempt to put a dressing on a pelvic the pressure off of it for her, and the patient states she just got an eggcrate cushion to sit on which really felt better, and I think she will be fine continuing until she follows up with wound care. Patient is in agreement with that plan. Discharge Plan Triage Chief Complaint: Wound ED Provider: Vitaliy Dc Dx/Rx/DC Orders Clinical Impression: Sacral decubitus ulcer, Encounter for wound re-check Instructions: Pressure Ulcer Tx Clean Dress Prescriptions: Continued baclofen 10 mg tablet 20 mg PO Q4H RF: 0 nitrofurantoin macrocrystal 25 mg capsule 50 mg PO QHS RF: 0 cholecalciferol (vitamin D3) 10,000 UNIT capsule 10,000 unit PO DAILY RF: 0 dalfampridine 10 MG tablet extended release 12 hr 10 mg PO BID PRN PRN (Reason: MS) RF: 0 tamoxifen 20 MG tablet 20 mg PO DAILY RF: 0 Metamucil Fiber Singles 3.4 gram powder in packet 1 packet PO DAILY RF: 0 Linzess 145 mcg capsule 145 mcg PO DAILY RF: 0 doxycycline monohydrate 100 MG capsule 100 mg PO BID Qty: 20 RF: 0 cephalexin 500 mg capsule 500 mg PO Q6 Qty: 40 RF: 0 Primary Care Provider: Mario Soliz Referrals: Wound Health [Outside] - Keep Anastacio appointment Mario Soliz DO [Primary Care Provider] - Disposition Disposition: Home, Self Care
[2020-12-06 16:45] VITALS: BP 121/53; PULSE 66; RESP 14; O2SAT 99
== END 2020-12-06 17:02 | disposition home or self-care (01) ==
PROVIDERS: Emergency Provider Emergency Medicine; PCP Family Medicine
DX: L89.159 Pressure ulcer of sacral region, unspecified stage (principal); N39.0 Urinary tract infection, site not specified; G35 Multiple sclerosis; Z85.3 Personal history of malignant neoplasm of breast; Z99.3 Dependence on wheelchair; Z79.899 Other long term (current) drug therapy; Z87.891 Personal history of nicotine dependence
CPT/HCPCS: 96365; 99284; A4216

== ENCOUNTER 2020-12-13 08:49 | Outpatient (RCR) | payer OTHER, SELFPAY ==
[2018-02-01 11:47] VITALS: BMI 15.0
[2020-12-13 09:15] VITALS: BP 90/37; PULSE 66; RESP 18; TEMP 36.4
--- NOTE | 2020-12-13 11:14 | RAD_ITS ---
STUDY: X-RAY - SACRUM/COCCYX REASON FOR EXAM: Female, 55 years old. STAGE IV SACRAL ULCER TECHNIQUE: 3 view(s) of the sacrum and coccyx were obtained. COMPARISON: None. FINDINGS: There is degenerative arthrosis of the bilateral sacroiliac joints. Normal visualized sacral ala and fused sacral bodies. Normal sacrococcygeal junction with a normal angulation. Normal coccygeal segments. The presacral soft tissue structures are unremarkable. RAD/Sacrum-Coccyx min 2 Views IMPRESSION: Degenerative changes of the sacroiliac joints. Electronically Signed: Dinesh Marie MD at 15:24 EDT , Service support ,
[2020-12-13 12:00] LABS: Erythrocyte Sedimentation Rate 26 mm/hr (0-30)
--- NOTE | 2020-12-13 14:06 | PCM.WC.HP ---
History of Present Illness Date of Service: 12/13/20 Chief Complaint: Nonhealing sacral ulcer History of Wound: Ms. Byrnes is a 55-year-old who presents to the wound center due to nonhealing sacral ulcer. History of multiple sclerosis and has been wheelchair-bound for about 16 years. Ulcer noted about a month ago. Has been applying Adaptic and Aquacel to ulcer without any significant improvement. Was seen recently at the emergency room due to concerns by home health nurse for worsening ulcer. Started on antibiotics but she has noted no significant improvement. Foul smell. No significant drainage reported. Denies chills, fever or otherwise feeling of unwell. [facility], [facility] Medical History Breast cancer Chronic indwelling Pandey catheter Multiple sclerosis Home Medications baclofen 10 mg tablet 20 mg PO Q4H 02/28/17 [History Last Taken 10/12/17 06:00] cholecalciferol (vitamin D3) 10,000 unit PO DAILY 10/09/17 [History Last Taken Unknown] dalfampridine 10 mg PO BID PRN PRN 03/24/18 [History Last Taken 07/19/20] Metamucil Fiber Singles 1 packet PO DAILY 07/23/20 [History Last Taken Unknown] tamoxifen 20 mg PO DAILY 07/23/20 [History Last Taken Unknown] nitrofurantoin macrocrystal 25 mg capsule 50 mg PO QHS 11/06/20 [History Last Taken Unknown] Linzess 145 mcg PO DAILY 12/02/20 [History Last Taken Unknown] cephalexin 500 mg PO Q6 #40 cap 12/02/20 [Rx Last Taken Unknown] doxycycline monohydrate 100 mg PO BID #20 cap 12/02/20 [Rx Last Taken Unknown] Allergy/AdvReac Type Severity Reaction Status Date / Time ciprofloxacin Allergy Mild unknown Verified 12/13/20 09:42 sulfamethoxazole AdvReac Severe Nausea Verified 12/13/20 09:42 [From Bactrim] trimethoprim [From Bactrim] AdvReac Severe Nausea Verified 12/13/20 09:42 Family History Aunt Breast cancer Mother Diabetes Surgical History h/o tonsillectomy S/P left mastectomy (~10/12/17) Social History household members: spouse Smoking Status: Former smoker alcohol intake: never ROS Constitutional Constitutional: Denies fever(s), headache(s), increased appetite, night sweats or poor appetite Eyes Eyes: Denies discharge from eye(s), discongugate gaze, exophthalmos, eye pain, floaters, foreign body, halo effect or irritation ENT HEENT: Denies dysphagia, ear discharge, foreign body in nose, halitosis, headache(s), hearing loss or nasal discharge Cardiovascular Cardiovascular: Denies clubbing, cold extremities, cyanosis, dyspnea at rest or dyspnea on exertion Respiratory/Chest Respiratory/Chest: Denies chest congestion, excessive phlegm production, hoarseness, inability to speak or nail bed cyanosis Gastrointestinal Gastrointestinal: Denies change in bowel habits, chewing difficulty, coffee ground emesis, constipation or cramping Genitourinary Genitourinary: Denies anuria, burning urination, dribbling, dysuria, flank pain or nocturia Musculoskeletal Musculoskeletal: Denies back pain, deformity, difficulty walking, joint stiffness or joint swelling Integumentary Integumentary: Denies change in pigmentation, erythema, hirsutism, jaundice or lesions Neurologic Neurologic: Denies abnormal hearing, abnormal movements, abnormal speech, behavior changes, burning sensations, loss of vision or memory loss Psychiatric Psychiatric: Denies anhedonia, anxiety, auditory hallucinations, behavioral changes, hallucinations, homicidal ideation or hopelessness Endocrine Endocrinology: Denies change in body appearance, deepening of the voice, heat intolerance, increase in ring/shoe/hat size, palpitations or polydipsia Hematologic/Lymphatic Hematologic/Lymphatic: Denies easy bleeding, easy bruising or lymphadenopathy Allergic/Immunologic Allergic/Immunologic: Denies tongue swelling, hives, urticaria, eczemia, wheezing or asthma Vital Signs Vital Signs Vital Signs: 12/13/20 09:15 Temperature 97.6 F L Temperature Source Temporal Pulse Rate 66 Respiratory Rate 18 Blood Pressure 90/37 L Blood Pressure Mean 54 Blood Pressure Source Monitor Physical Exam Const alert, oriented x3 and no apparent distress General Appearance: cooperative and comfortable HEENT normocephalic and head/scalp atraumatic Head and Scalp: normal to inspection, normocephalic and atraumatic Eyes EOMs intact bilaterally Neck full ROM General: normal visual inspection Resp normal respiratory effort Effort and Inspection: able to speak in complete sentences Extremity normal to inspection Skin Rashes: rashes noted Neuro oriented x3, CN's II-XII intact bilaterally and moves all extremities Psych mental status grossly normal Appearance: grossly normal Attitude: calm Speech: normal speech Debridement Note Debridement Note Wound debrided: Sacral Wound Grade/Stage: Stage IV Type of Debridement: Excisional debridement Anesthesia Used: 4% Lidocaine Solution Depth: Down to and including healthy tissue and in the subcutaneous layer Percentage of wound debrided: 100 Instrument Used: 5mm curette, #15 blade and Forceps Tissue Removed: Slough and devitalized tissue Severity: Fat Layer Exposed Amount of bleeding with debridement: Mild Bleeding Controlled with: Pressure Patient tolerated procedure: Patient tolerated procedure well Post-Debridement Measurements and Additional Note: Post-Debridement Measurements/Treatment REA - Nurse 1 - General Ulcer Assessment Start: 12/13/20 08:55 Freq: Status: Active Protocol: ASHLEY Activity Type Activity Date Activity User E-Sign Co-Sign Detail Recorded Client Recorded Date Recorded By Document 12/13/20 09:15 DL [id number] 12/13/20 09:39 DL 12/13/20 09:15 - Today's Visit Information Type of service Initial Visit Arrival Mode Wheelchair Transfer Assistance None Patient Identification Verified (Name & Yes ) Patient Requires Transmission-Based No Precautions Vital Signs Temperature (97.8 F-99.1 F) 97.6 F L Temperature Source Temporal Pulse Rate (60-100) 66 Pulse Location Monitor Respiratory Rate (12-18) 18 Respiratory rate source Observation Blood Pressure (90/60-120/80) 90/37 L Blood Pressure Mean 54 Source Monitor Pain Scale: 0-10 Numeric Is Patient Pain Free? Yes Communication Assessment Preferred language Czech Able to Read Yes Able to Write No Communication Tools None Right Hearing Abillity Normal Left Hearing Abillity Normal Visual Assistive Devices Glasses Teaching Assessment Preferences Verbal,Written, Demonstration Barriers to Learning None Readiness To Learn Good Willingness to Engage in Self Management Med Activies Readiness to Engage in Self Management Med Activities Anxiety Level Calm Cooperation Cooperative Perception Coherent Interest in Health Problem Asks Questions Education Importance Acknowledges Need Does Patient Smoke tobacco or other No substances Smoking Status Former smoker Is Patient Diabetic No Functional Assessment Recent Decline in Ability to Perform Denies Any Declines Culture/Muslim/Fashion Consultant Cultural/Muslim Needs that may affect No Treatment Plan Would you allow our hospital ornamental iron erector to No meet you for the purpose of spiritual/ emotional support? Fashion Consultant to contact place of taoism No Teaching: Wound Center Discharge Instructions -Person Taught Patient Dressing Your Wound -Person Taught Patient *Welcome to the Wound Center -Person Taught Patient - Nurse 1 - General Ulcer Measurement Start: 12/13/20 08:55 Freq: Status: Active Protocol: Activity Type Activity Date Activity User E-Sign Co-Sign Detail Recorded Client Recorded Date Recorded By Document 12/13/20 09:15 DL [id number] 12/13/20 09:39 DL 12/13/20 09:15 Wound Center Nurse 1 #1 Sacral -Current Size (cm) - Length 3.5 -Current Size (cm) - Width 3.5 -Current Size (cm) - Depth 1.2 -Total Square Cm 12.25 -Photo Taken Yes -Classification - Thickness Unclassifiable (Eschar Covered ) -Exudate Amt Large -Exudate Type Yellow/Green -Wound Margin Distinct, Outline Attached -Granulation Amt None Present (0 %) -Necrosis Amt Large (67-100%) -Necrotic Tissue Type Eschar -Structure Exposed N/A -Texture (Cydney-wound Skin Appearance) Localized Edema -Moisture (Cydney-wound Skin Appearance) No Abnormality -Color (Cydney-wound Skin Appearance) Erythema -Temperature (Cydney-wound Skin No Abnormality Appearance) (Pt Warm) -Tenderness on Palpation (Cydney-wound Yes Skin Appearance) -Ulcer Cleansing Wound Cleanser -Foul Odor after Cleansing No -Anesthetic Used 4% Lidocaine Solution WC - Nurse 2 - General Ulcer CM Notes Start: 12/13/20 08:55 Freq: Status: Active Protocol: Activity Type Activity Date Activity User E-Sign Co-Sign Detail Recorded Client Recorded Date Recorded By Document 12/13/20 09:57 MW [id number] 12/13/20 10:11 MW 12/13/20 09:57 Wound Center Nurse 2 -Time 09:57 -Correct Patient Yes -Correct Side, Site, Position Yes -Correct Procedure Yes -Procedure Performed Yes -Type of Procedure Debridement -Clinical Debridement Subcutaneous -Tissue Removed Subcutaneous -Post Debridement (cm) - Length 4.0 -Post Debridement (cm) - Width 3.5 -Post Debridement (cm) - Depth 1.5 -Total Square (Post) (cm) 14.00 -Area of Debridement (cm) - Length 4.0 -Area of Debridement (cm) - Width 3.5 -Total Square (Area) (cm) 14.00 -Tunneling Yes -Tunneling Position (O'clock) 5 -Tunneling Distance (cm) 2.5 -Undermining/Tunneling No -Circular Undermining No -Wound/Ulcer Outcome Not Healed -Ulcer Cleansing Rinsed/ Irrigated with Saline -Foul Odor after Cleansing Yes -Bioengineered Tissue No -Bleeding Controlled with Pressure -Offloading No -Treatment Response Procedure Tolerated Well -Debridement - Subq, 1st 20sq cm Yes Pain Scale: 0-10 Numeric Is Patient Pain Free? Yes - Nurse 3 - General Ulcer D/C NN Start: 12/13/20 08:55 Freq: Status: Active Protocol: Activity Type Activity Date Activity User E-Sign Co-Sign Detail Recorded Client Recorded Date Recorded By Document 12/13/20 10:19 [facility] [id number] 12/13/20 10:20 [facility] 12/13/20 10:19 Wound Care Nurse 3 #1 Sacral -Ulcer Cleansing Rinsed/ Irrigated with Saline -Foul Odor after Cleansing No -Primary Dressing Applied Other -Other Dressing hydrogel -Primary Dressing Covered/Secured with Secured with Tape,Other -Other Covering abd, drsg per dl instrumentation and control technician Treatment Response Procedure Tolerated Well Pain Scale: 0-10 Numeric Is Patient Pain Free? Yes - Visit Discharge Discharge Condition Stable Ambulatory Status Wheelchair Transportation Private Auto Facility Type Home Health Lab / Micro Data Labs: Laboratory Results - last 24 hr 12/13/20 10:55: C-React Prot Ext Range 47.70 H 12/13/20 10:55: ESR 26 Charges/Coding Visit Charges Office Visits / Consults: 69284 OV L4 Est Procedures Integumentary 111xxx-113xx: [id number] Natalia subq tissue 20 sq cm/< Assessment/Plan Assessment/Plan (1) Sacral decubitus ulcer: CODE(S): L89.159 - Pressure ulcer of sacral region, unspecified stage QUALIFIERS: Pressure injury stage: stage 4 Qualified Code(s): L89.154 - Pressure ulcer of sacral region, stage 4 (2) Multiple sclerosis: CODE(S): G35 - Multiple sclerosis (3) Debility: CODE(S): R53.81 - Other malaise PLAN: Debridement done as documented above, procedure was well-tolerated. Significant foul smell noted. Currently on antibiotics, no cultures taken at this time. X-ray ordered to rule out osteomyelitis. Complete antibiotics. For now, Santyl daily covered with moistened gauze. Offloading recommended. Not able to do a hospital bed at this time. Not enough space with her who is terminal and currently uses one. She states that she will change positions as often as possible. Increased protein intake, vitamin C and Zinc also recommended. Labs ordered, follow-up with results. Her questions were answered and she was advised to call with any further questions or concerns. Follow-up in 1 week with Mario Izaguirre NP. This note was generated with [employer] dictation software. It may contain incorrect words, spelling, and punctuation that were not noted in checking the note before signing.
== END 2020-12-13 23:59 ==
LOC: WC 08:49
PROVIDERS: PCP Family Medicine; Referring Provider Internal Medicine; Visit Provider Internal Medicine
DX: L89.154 Pressure ulcer of sacral region, stage 4 (principal); G35 Multiple sclerosis; R53.81 Other malaise; Z99.3 Dependence on wheelchair; Z79.899 Other long term (current) drug therapy; Z87.891 Personal history of nicotine dependence
CPT/HCPCS: 11042; 36415; 72220; 85652; 86140; 99213; G0463

== ENCOUNTER 2021-01-10 13:45 | Outpatient (RCR) | payer OTHER, SELFPAY ==
[2018-02-01 11:47] VITALS: BMI 15.0
[2020-12-14 00:40] VITALS: BP 90/37; PULSE 66; RESP 18; TEMP 36.4
[2020-12-20 13:49] VITALS: BP 132/75; PULSE 67; TEMP 36.4
--- NOTE | 2020-12-20 16:03 | PN.PCM_ITS ---
History of Present Illness Date of Service: 12/20/20 Chief Complaint: Nonhealing sacral ulcer History of Wound: Ms. Byrnes is a 55-year-old who presents to the wound center due to nonhealing sacral ulcer. History of multiple sclerosis and has been wheelchair-bound for about 16 years. Ulcer noted about a month ago. Has been applying Adaptic and Aquacel to ulcer without any significant improvement. Was seen recently at the emergency room due to concerns by home health nurse for worsening ulcer. Started on antibiotics but she has noted no significant improvement. Foul smell. No significant drainage reported. Denies chills, fever or otherwise feeling of unwell. Progress of Wound: Ulcer shows less necrotic tissue and slough this week, no new concerns, doing well with Santyl Objective Data Objective Data Vital Signs: Vital Signs Temp Pulse Resp BP 97.5 F L 67 18 132/75 H 12/20/20 13:49 12/20/20 13:49 12/14/20 00:40 12/20/20 13:49 Charges/Coding Procedures Integumentary 111xxx-113xx: [id number] Natalia musc/fascia 20 sq cm/< Physical Exam Const alert, oriented x3 and no apparent distress General Appearance: cooperative and comfortable HEENT normocephalic and head/scalp atraumatic Head and Scalp: normal to inspection, normocephalic and atraumatic Eyes EOMs intact bilaterally Neck full ROM General: normal visual inspection Resp normal respiratory effort Effort and Inspection: able to speak in complete sentences Extremity normal to inspection Skin Wound Narrative: Stage IV pressure injury to sacrum with large amount of adherent slough, no signs of obvious infection at this time, Neuro oriented x3, CN's II-XII intact bilaterally and moves all extremities Psych mental status grossly normal Appearance: grossly normal Attitude: calm Speech: normal speech Debridement Note Debridement Note Wound debrided: Stage IV pressure injury to sacrum Type of Debridement: Excisional debridement Anesthesia Used: 5% Lidocaine Gel Depth: to muscle and to bone Percentage of wound debrided: 100 Instrument Used: 5mm curette Tissue Removed: Slough and devitalized tissue Severity: Fat Layer Exposed Amount of bleeding with debridement: Mild Bleeding Controlled with: Pressure Patient tolerated procedure: Patient tolerated procedure well Post-Debridement Measurements and Additional Note: 4 pressure injury to sacrumPost-Debridement Measurements/Treatment WC - Nurse 1 - General Ulcer Assessment Start: 12/20/20 13:48 Freq: Status: Active Protocol: REA.[email or web address] Activity Type Activity Date Activity User E-Sign Co-Sign Detail Recorded Client Recorded Date Recorded By Document 12/20/20 13:49 KR [id number] 12/20/20 13:54 KR 12/20/20 13:49 - Today's Visit Information Type of service Follow-up Visit (Physician/[employer] ) Arrival Mode Wheelchair Patient Identification Verified (Name & Yes ) Vital Signs Temperature (97.8 F-99.1 F) 97.5 F L Temperature Source Temporal Pulse Rate (60-100) 67 Pulse Location Monitor Blood Pressure (90/60-120/80) 132/75 H Blood Pressure Mean (mm Hg) 94 Source Monitor Position Sitting Blood Pressure Location Right Arm History Since Last Visit- (Skip if this is Patient's initial visit) Have you changed medications since your No last visit? Any new allergies or adverse reactions No Had a fall/change in ADL's that may No increase risk of falls Signs or symptoms of abuse and/or No neglect since last visit Have you been in the hospital since your No last visit? Has dressing in place as prescribed Yes Has compression in place as prescribed N/A Has offloadiing in place as prescribed N/A Experienced any changes in pain level or No management Pain Scale: 0-10 Numeric Is Patient Pain Free? Yes - Nurse 1 - General Ulcer Measurement Start: 12/20/20 13:48 Freq: Status: Active Protocol: Activity Type Activity Date Activity User E-Sign Co-Sign Detail Recorded Client Recorded Date Recorded By Document 12/20/20 13:49 KR [id number] 12/20/20 13:54 KR Edit Result 12/20/20 13:49 KR (1) [id number] 12/20/20 13:55 KR (1) #1 Sacral - Undermining/Tunneling Starts (O'clock) => 8 - Undermining/Tunneling Ends (O'clock) => 5 - Maximum Distance (cm) => 2.5 12/20/20 13:49 Wound Center Nurse 1 #1 Sacral -Current Size (cm) - Length 3.5 -Current Size (cm) - Width 3.2 -Current Size (cm) - Depth 1.7 -Total Square Cm 11.20 -Tunneling Position (O'clock) 5 -Tunneling Distance (cm) 2 -Undermining/Tunneling Starts (O'clock 8 ) -Undermining/Tunneling Ends (O'clock) 5 -Maximum Distance (cm) 2.5 -Exudate Amt Large -Exudate Type Yellow/Green -Wound Margin Distinct, Outline Attached -Granulation Amt Medium (34-66%) -Granulation Quality Red -Necrosis Amt Medium (34-66%) -Necrotic Tissue Type Adherent Slough -Structure Exposed Fat Layer Exposed -Texture (Cydney-wound Skin Appearance) Assessed, Scarring -Color (Cydney-wound Skin Appearance) No Abnormality, Assessed -Temperature (Cydney-wound Skin No Abnormality Appearance) (Pt Warm) -Tenderness on Palpation (Cydney-wound No Skin Appearance) -Ulcer Cleansing Rinsed/ Irrigated with Saline -Foul Odor after Cleansing No -Anesthetic Used 5% Lidocaine Gel WC - Nurse 2 - General Ulcer CM Notes Start: 12/20/20 13:48 Freq: Status: Active Protocol: Activity Type Activity Date Activity User E-Sign Co-Sign Detail Recorded Client Recorded Date Recorded By Document 12/20/20 14:09 MW [id number] 12/20/20 14:15 MW 12/20/20 14:09 Wound Center Nurse 2 -Time 14:12 -Correct Patient Yes -Correct Side, Site, Position Yes -Correct Procedure Yes -Procedure Performed Yes -Type of Procedure Debridement -Clinical Debridement Muscle / Fascia -Tissue Removed Muscle,Fascia -Post Debridement (cm) - Length 4.0 -Post Debridement (cm) - Width 3.5 -Post Debridement (cm) - Depth 2.2 -Total Square (Post) (cm) 14.00 -Area of Debridement (cm) - Length 4.0 -Area of Debridement (cm) - Width 3.5 -Total Square (Area) (cm) 14.00 -Tunneling No -Undermining/Tunneling Yes -Undermining/Tunneling Starts (O'clock 12 ) -Undermining/Tunneling Ends (O'clock) 4 -Maximum Distance (cm) 3.5 -Circular Undermining No -Wound/Ulcer Outcome Not Healed -Ulcer Cleansing Rinsed/ Irrigated with Saline -Foul Odor after Cleansing No -Bioengineered Tissue No -Bleeding Controlled with Pressure -Offloading No -Treatment Response Procedure Tolerated Well -Debridement - Muscle / Fascia, 1st Yes 20sq cm Pain Scale: 0-10 Numeric Is Patient Pain Free? Yes - Nurse 3 - General Ulcer D/C NN Start: 12/20/20 13:48 Freq: Status: Active Protocol: Activity Type Activity Date Activity User E-Sign Co-Sign Detail Recorded Client Recorded Date Recorded By Document 12/20/20 14:34 DL [id number] 12/20/20 14:34 DL 12/20/20 14:34 Wound Care Nurse 3 #1 Sacral -Ulcer Cleansing Wound Cleanser -Foul Odor after Cleansing No -Primary Dressing Applied Mepilex Border -Other Dressing santyl -Other Covering moistened gauze -Mepilex Border 1 Treatment Response Procedure Tolerated Well Pain Scale: 0-10 Numeric Is Patient Pain Free? Yes WC - Visit Discharge Discharge Condition Stable Ambulatory Status Wheelchair Transportation Private Auto Accompanied by family Facility Type Home Health Orders Sent Yes Assessment/Plan Assessment/Plan (1) Sacral decubitus ulcer: CODE(S): L89.159 - Pressure ulcer of sacral region, unspecified stage QUALIFIERS: Pressure injury stage: stage 4 Qualified Code(s): L89.154 - Pressure ulcer of sacral region, stage 4 (2) Multiple sclerosis: CODE(S): G35 - Multiple sclerosis (3) Debility: CODE(S): R53.81 - Other malaise PLAN: Debridement done as documented above, procedure was well-tolerated. Significant foul smell noted. Recently completed her antibiotics, no cultures taken at this time. X-ray ordered previously which was negative for osteomyelitis. For now, Santyl daily covered with moistened gauze. Offloading recommended, a Roho cushion was ordered as patient is wheelchair-bound. Not able to do a hospital bed at this time. Not enough space with her who is terminal and currently uses one. She states that she will change positions as often as possible. Increased protein intake, vitamin C and Zinc also recommended. Labs ordered, follow-up with results. Her questions were answered and she was advised to call with any further questions or concerns. Follow-up i n 1 week with myself. This note was generated with [employer]ation software. It may contain incorrect words, spelling, and punctuation that were not noted in checking the note before signing.
[2020-12-27 13:03] VITALS: BP 102/63; PULSE 64; TEMP 36.2
--- NOTE | 2020-12-27 15:49 | PCM.WC.PN ---
History of Present Illness Date of Service: 12/27/20 Chief Complaint: Nonhealing sacral ulcer History of Wound: Ms. Byrnes is a 55-year-old who presents to the wound center due to nonhealing sacral ulcer. History of multiple sclerosis and has been wheelchair-bound for about 16 years. Ulcer noted about a month ago. Has been applying Adaptic and Aquacel to ulcer without any significant improvement. Was seen recently at the emergency room due to concerns by home health nurse for worsening ulcer. Started on antibiotics but she has noted no significant improvement. Foul smell. No significant drainage reported. Denies chills, fever or otherwise feeling of unwell. Progress of Wound: Ulcer shows less necrotic tissue and slough this week, no new concerns, doing well with Santyl Objective Data Objective Data Vital Signs: Vital Signs Temp Pulse Resp BP 97.2 F L 64 18 102/63 12/27/20 13:03 12/27/20 13:03 12/14/20 00:40 12/27/20 13:03 Charges/Coding Procedures Integumentary 111xxx-113xx: 34802 Natalia musc/fascia 20 sq cm/< Physical Exam Const alert, oriented x3 and no apparent distress General Appearance: cooperative and comfortable HEENT normocephalic and head/scalp atraumatic Head and Scalp: normal to inspection, normocephalic and atraumatic Eyes EOMs intact bilaterally Neck full ROM General: normal visual inspection Resp normal respiratory effort Effort and Inspection: able to speak in complete sentences Extremity normal to inspection Skin Wound Narrative: Stage IV pressure injury to sacrum with large amount of adherent slough, no signs of obvious infection at this time, Neuro oriented x3, CN's II-XII intact bilaterally and moves all extremities Psych mental status grossly normal Appearance: grossly normal Attitude: calm Speech: normal speech Debridement Note Debridement Note Wound debrided: Stage IV sacral pressure ulcer Laterality: Not Applicable Type of Debridement: Excisional debridement Anesthesia Used: 5% Lidocaine Gel Depth: in the subcutaneous layer and to muscle Percentage of wound debrided: 100 Instrument Used: 5mm curette Tissue Removed: Slough and devitalized tissue Severity: Fat Layer Exposed Amount of bleeding with debridement: Mild Bleeding Controlled with: Pressure Patient tolerated procedure: Patient tolerated procedure well Post-Debridement Measurements and Additional Note: Post-Debridement Measurements/Treatment WC - Nurse 1 - General Ulcer Assessment Start: 12/20/20 13:48 Freq: Status: Active Protocol: ASHLEY Activity Type Activity Date Activity User E-Sign Co-Sign Detail Recorded Client Recorded Date Recorded By Document 12/20/20 13:49 KR [id number] 12/20/20 13:54 KR Document 12/27/20 13:03 AK [id number] 12/27/20 13:22 AK 12/20/20 12/27/20 13:49 13:03 WC - Today's Visit Information Type of service Follow-up Visit Follow-up Visit (Physician/SOFTWARE CONSULTANT (Physician/SOFTWARE CONSULTANT ) ) Arrival Mode Wheelchair Wheelchair Transfer Assistance None Patient Identification Verified (Name & Yes Yes ) Patient Requires Transmission-Based No Precautions Safety Precautions NA Vital Signs Temperature (97.8 F-99.1 F) 97.5 F L 97.2 F L Temperature Source Temporal Temporal Pulse Rate (60-100) 67 64 Pulse Location Monitor Monitor Blood Pressure (90/60-120/80) 132/75 H 102/63 Blood Pressure Mean (mm Hg) 94 76 Source Monitor Monitor Position Sitting Blood Pressure Location Right Arm History Since Last Visit- (Skip if this is Patient's initial visit) Have you changed medications since your No No last visit? Any new allergies or adverse reactions No No Had a fall/change in ADL's that may No No increase risk of falls Signs or symptoms of abuse and/or No No neglect since last visit Have you been in the hospital since your No No last visit? Has dressing in place as prescribed Yes Yes Has compression in place as prescribed N/A N/A Has offloadiing in place as prescribed N/A Yes Experienced any changes in pain level or No No management Pain Scale: 0-10 Numeric Is Patient Pain Free? Yes - Nurse 1 - General Ulcer Measurement Start: 12/20/20 13:48 Freq: Status: Active Protocol: Activity Type Activity Date Activity User E-Sign Co-Sign Detail Recorded Client Recorded Date Recorded By Document 12/20/20 13:49 KR [id number] 12/20/20 13:54 KR Edit Result 12/20/20 13:49 KR (1) [id number] 12/20/20 13:55 KR Document 12/27/20 13:03 AK [id number] 12/27/20 13:22 AK (1) #1 Sacral - Undermining/Tunneling Starts (O'clock) => 8 - Undermining/Tunneling Ends (O'clock) => 5 - Maximum Distance (cm) => 2.5 12/20/20 12/27/20 13:49 13:03 Wound Center Nurse 1 #1 Sacral -Combined with other wound No -Current Size (cm) - Length 3.5 3 -Current Size (cm) - Width 3.2 3.2 -Current Size (cm) - Depth 1.7 0.6 -Total Square Cm 11.20 9.6 -Photo Taken No -Epithelialization None Present -Tunneling No -Tunneling Position (O'clock) 5 -Tunneling Distance (cm) 2 -Undermining/Tunneling Yes -Undermining/Tunneling Starts (O'clock 8 12 ) -Undermining/Tunneling Ends (O'clock) 5 4 -Maximum Distance (cm) 2.5 0.6 -Change in Wound Grade/Stage No -Exudate Amt Large Large -Exudate Type Yellow/Green Yellow/Green -Wound Margin Distinct, Distinct, Outline Outline Attached Attached -Granulation Amt Medium (34-66%) -Granulation Quality Red -Slough/Fibrin Yes -Necrosis Amt Medium (34-66%) Large (67-100%) -Necrotic Tissue Type Adherent Slough Adherent Slough -Structure Exposed Fat Layer Muscle,Bone Exposed -Texture (Cydney-wound Skin Appearance) Assessed, No Abnormality, Scarring Assessed -Moisture (Cydney-wound Skin Appearance) No Abnormality, Assessed -Color (Cydney-wound Skin Appearance) No Abnormality, No Abnormality, Assessed Assessed -Temperature (Cydney-wound Skin No Abnormality No Abnormality Appearance) (Pt Warm) (Pt Warm) -Tenderness on Palpation (Cydney-wound No Yes Skin Appearance) -Ulcer Cleansing Rinsed/ Rinsed/ Irrigated with Irrigated with Saline Saline -Foul Odor after Cleansing No No -Anesthetic Used 5% Lidocaine 4% Lidocaine Gel Solution,5% Lidocaine Gel WC - Nurse 2 - General Ulcer CM Notes Start: 12/20/20 13:48 Freq: Status: Active Protocol: Activity Type Activity Date Activity User E-Sign Co-Sign Detail Recorded Client Recorded Date Recorded By Document 12/20/20 14:09 MW [id number] 12/20/20 14:15 MW Document 12/27/20 13:26 MW [id number] 12/27/20 13:30 MW Edit Result 12/27/20 13:26 MW (1) [id number] 12/27/20 13:33 MW (1) #1 Sacral - Clinical Debridement Subcutaneous => Muscle / Fascia - Tissue Removed Subcutaneous => Muscle,Fascia - Debridement - Subq, 1st 20sq cm Yes => - Debridement - Muscle / Fascia, 1st => Yes 20sq cm 12/20/20 12/27/20 14:09 13:26 Wound Center Nurse 2 #1 Sacral -Time 14:12 13:26 -Correct Patient Yes Yes -Correct Side, Site, Position Yes Yes -Correct Procedure Yes Yes -Procedure Performed Yes Yes -Type of Procedure Debridement Debridement -Clinical Debridement Muscle / Fascia Muscle / Fascia -Tissue Removed Muscle,Fascia Muscle,Fascia -Post Debridement (cm) - Length 4.0 3.2 -Post Debridement (cm) - Width 3.5 3.4 -Post Debridement (cm) - Depth 2.2 1.1 -Total Square (Post) (cm) 14.00 10.88 -Area of Debridement (cm) - Length 4.0 3.2 -Area of Debridement (cm) - Width 3.5 3.4 -Total Square (Area) (cm) 14.00 10.88 -Tunneling No No -Undermining/Tunneling Yes Yes -Undermining/Tunneling Starts (O'clock 12 1 ) -Undermining/Tunneling Ends (O'clock) 4 5 -Maximum Distance (cm) 3.5 2.8 -Circular Undermining No No -Wound/Ulcer Outcome Not Healed Not Healed -Ulcer Cleansing Rinsed/ Rinsed/ Irrigated with Irrigated with Saline Saline -Foul Odor after Cleansing No No -Bioengineered Tissue No No -Bleeding Controlled with Pressure Pressure -Offloading No No -Treatment Response Procedure Procedure Tolerated Well Tolerated Well -Debridement - Muscle / Fascia, 1st Yes Yes 20sq cm Pain Scale: 0-10 Numeric Is Patient Pain Free? Yes Yes WC - Nurse 3 - General Ulcer D/C NN Start: 12/20/20 13:48 Freq: Status: Active Protocol: Activity Type Activity Date Activity User E-Sign Co-Sign Detail Recorded Client Recorded Date Recorded By Document 12/20/20 14:34 DL [id number] 12/20/20 14:34 DL Document 12/27/20 13:37 DL [id number] 12/27/20 13:45 DL 12/20/20 12/27/20 14:34 13:37 Wound Care Nurse 3 #1 Sacral -Ulcer Cleansing Wound Cleanser Soap and Water -Foul Odor after Cleansing No No -Primary Dressing Applied Mepilex Border -Other Dressing santyl santyl -Primary Dressing Covered/Secured with Dry Gauze, Secured with Tape -Other Covering moistened gauze -Mepilex Border 1 Treatment Response Procedure Procedure Tolerated Well Tolerated Well Pain Scale: 0-10 Numeric Is Patient Pain Free? Yes Yes WC - Visit Discharge Discharge Condition Stable Stable Ambulatory Status Wheelchair Wheelchair Transportation Private Auto Private Auto Accompanied by family Facility Type Home Health Orders Sent Yes Assessment/Plan Assessment/Plan (1) Sacral decubitus ulcer: CODE(S): L89.159 - Pressure ulcer of sacral region, unspecified stage QUALIFIERS: Pressure injury stage: stage 4 Qualified Code(s): L89.154 - Pressure ulcer of sacral region, stage 4 (2) Multiple sclerosis: CODE(S): G35 - Multiple sclerosis (3) Debility: CODE(S): R53.81 - Other malaise PLAN: Debridement done as documented above, procedure was well-tolerated. less of a foul smell noted. Recently completed her antibiotics, no cultures taken at this time. X-ray ordered previously which was negative for osteomyelitis. For now, Cinthyayl daily covered with moistened gauze. Offloading recommended, a Roho cushion was ordered as patient is wheelchair-bound. Not able to do a hospital bed at this time. Not enough space with her who is terminal and currently uses one. She states that she will change positions as often as possible. Increased protein intake, vitamin C and Zinc also recommended. Labs ordered,pending results. Her questions were answered and she was advised to call with any further questions or concerns. Follow-up in 1 week with myself. This note was generated with [employer] dictation software. It may contain incorrect words, spelling, and punctuation that were not noted in checking the note before signing.
[2021-01-03 13:44] VITALS: BP 92/45; PULSE 70; RESP 16; TEMP 36
--- NOTE | 2021-01-03 16:05 | PCM.WC.PN ---
History of Present Illness Date of Service: 01/03/21 Chief Complaint: Nonhealing sacral ulcer History of Wound: Ms. Byrnes is a 55-year-old who presents to the wound center due to nonhealing sacral ulcer. History of multiple sclerosis and has been wheelchair-bound for about 16 years. Ulcer noted about a month ago. Has been applying Adaptic and Aquacel to ulcer without any significant improvement. Was seen recently at the emergency room due to concerns by home health nurse for worsening ulcer. Started on antibiotics but she has noted no significant improvement. Foul smell. No significant drainage reported. Denies chills, fever or otherwise feeling of unwell. Progress of Wound: Sacral pressure ulcer shows less necrotic tissue and slough this week, no new concerns, doing well with Santyl, patient does also have a new stage II pressure ulcer on her right hip, states that this opened up last week Objective Data Objective Data Vital Signs: Vital Signs Temp Pulse Resp BP 96.8 F L 70 16 92/45 L 01/03/21 13:44 01/03/21 13:44 01/03/21 13:44 01/03/21 13:44 Oxygen Delivery Method Room Air Charges/Coding Procedures Integumentary 111xxx-113xx: 38253 Natalia subq tissue 20 sq cm/< Physical Exam Const alert, oriented x3 and no apparent distress General Appearance: cooperative and comfortable HEENT normocephalic and head/scalp atraumatic Head and Scalp: normal to inspection, normocephalic and atraumatic Eyes EOMs intact bilaterally Neck full ROM General: normal visual inspection Resp normal respiratory effort Effort and Inspection: able to speak in complete sentences Extremity normal to inspection Skin Wound Narrative: Stage IV pressure injury to sacrum with large amount of adherent slough, no signs of obvious infection at this time, stage II pressure injury to right hip with adherent slough, no signs of obvious infection at this time Neuro oriented x3, CN's II-XII intact bilaterally and moves all extremities Psych mental status grossly normal Appearance: grossly normal Attitude: calm Speech: normal speech Debridement Note Debridement Note Wound debrided: Stage IV pressure injury to sacrum, stage II pressure injury right hip Type of Debridement: Excisional debridement Anesthesia Used: 5% Lidocaine Gel Depth: Down to and including healthy tissue, in the subcutaneous layer and to muscle Percentage of wound debrided: 100 Instrument Used: 5mm curette Tissue Removed: Slough and devitalized tissue Severity: Fat Layer Exposed Amount of bleeding with debridement: Mild Bleeding Controlled with: Pressure and Compression and gauze Patient tolerated procedure: Patient tolerated procedure well Post-Debridement Measurements and Additional Note: Post-Debridement Measurements/Treatment WC - Nurse 1 - General Ulcer Assessment Start: 12/20/20 13:48 Freq: Status: Active Protocol: REA.MARY Activity Type Activity Date Activity User E-Sign Co-Sign Detail Recorded Client Recorded Date Recorded By Document 12/20/20 13:49 KR [id number] 12/20/20 13:54 KR Document 12/27/20 13:03 AK [id number] 12/27/20 13:22 AK Document 01/03/21 13:44 BM [id number] 01/03/21 13:59 BMF 12/20/20 12/27/20 01/03/21 13:49 13:03 13:44 WC - Today's Visit Information Type of service Follow-up Visit Follow-up Visit Follow-up Visit (Physician/SEISMOGRAPH SUPERVISOR (Physician/SEISMOGRAPH SUPERVISOR (Physician/SEISMOGRAPH SUPERVISOR ) ) ) Arrival Mode Wheelchair Wheelchair Wheelchair Transfer Assistance None None Accompanied by sister in law Patient Identification Verified (Name & Yes Yes Yes ) Patient Requires Transmission-Based No No Precautions Safety Precautions NA Vital Signs Temperature (97.8 F-99.1 F) 97.5 F L 97.2 F L 96.8 F L Temperature Source Temporal Temporal Temporal Pulse Rate (60-100) 67 64 70 Pulse Location Monitor Monitor Monitor Respiratory Rate (12-18) 16 Respiratory rate source Observation Oxygen Delivery Method Room Air Blood Pressure (90/60-120/80) 132/75 H 102/63 92/45 L Blood Pressure Mean (mm Hg) 94 76 60 Source Monitor Monitor Monitor Position Sitting Sitting Blood Pressure Location Right Arm History Since Last Visit- (Skip if this is Patient's initial visit) Have you changed medications since your No No No last visit? Any new allergies or adverse reactions No No No Had a fall/change in ADL's that may No No No increase risk of falls Signs or symptoms of abuse and/or No No No neglect since last visit Have you been in the hospital since your No No No last visit? Has dressing in place as prescribed Yes Yes Yes Has compression in place as prescribed N/A N/A N/A Has offloadiing in place as prescribed N/A Yes N/A Experienced any changes in pain level or No No No management Left Footwear Slipper Right Footwear Slipper Pain Scale: 0-10 Numeric Is Patient Pain Free? Yes Yes WC - Nurse 1 - General Ulcer Measurement Start: 12/20/20 13:48 Freq: Status: Active Protocol: Activity Type Activity Date Activity User E-Sign Co-Sign Detail Recorded Client Recorded Date Recorded By Document 12/20/20 13:49 KR [id number] 12/20/20 13:54 KR Edit Result 12/20/20 13:49 KR (1) [id number] 12/20/20 13:55 KR Document 12/27/20 13:03 AK [id number] 12/27/20 13:22 AK Document 01/03/21 13:44 BMF [id number] 01/03/21 13:59 BMF (1) #1 Sacral - Undermining/Tunneling Starts (O'clock) => 8 - Undermining/Tunneling Ends (O'clock) => 5 - Maximum Distance (cm) => 2.5 12/20/20 12/27/20 01/03/21 13:49 13:03 13:44 Wound Center Nurse 1 #2- R HIP -Combined with other wound No -Current Size (cm) - Length 0.1 -Current Size (cm) - Width 0.1 -Current Size (cm) - Depth 0.1 -Total Square Cm 0.01 -Date of Last Picture (Recall this 01/03/21 field) -Photo Taken Yes -Epithelialization None Present -Tunneling No -Undermining/Tunneling No -Circular Undermining No -Exudate Amt Small -Exudate Type Serous -Wound Margin Flat & Intact -Granulation Amt Large (67-100%) -Granulation Quality [place] -Slough/Fibrin No -Necrosis Amt None Present (0 %) -Texture (Cydney-wound Skin Appearance) Assessed -Moisture (Cydney-wound Skin Appearance) Assessed -Color (Cydney-wound Skin Appearance) Ecchymosis, Erythema -Temperature (Cydney-wound Skin No Abnormality Appearance) (Pt Warm) -Tenderness on Palpation (Cydney-wound Yes Skin Appearance) -Ulcer Cleansing Soap and Water -Foul Odor after Cleansing No -Anesthetic Used 4% Lidocaine Solution #1 Sacral -Combined with other wound No No -Current Size (cm) - Length 3.5 3 2.8 -Current Size (cm) - Width 3.2 3.2 2.4 -Current Size (cm) - Depth 1.7 0.6 0.6 -Total Square Cm 11.20 9.6 6.72 -Photo Taken No No -Epithelialization None Present Small 1-33% -Tunneling No No -Tunneling Position (O'clock) 5 -Tunneling Distance (cm) 2 -Undermining/Tunneling Yes Yes -Undermining/Tunneling Starts (O'clock 8 12 12 ) -Undermining/Tunneling Ends (O'clock) 5 4 4 -Maximum Distance (cm) 2.5 0.6 1.7 -Circular Undermining No -Change in Wound Grade/Stage No -Exudate Amt Large Large Medium -Exudate Type Yellow/Green Yellow/Green Serosanguineous -Wound Margin Distinct, Distinct, Thickened Outline Outline Attached Attached -Granulation Amt Medium (34-66%) Medium (34-66%) -Granulation Quality Red Red -Slough/Fibrin Yes Yes -Necrosis Amt Medium (34-66%) Large (67-100%) Medium (34-66%) -Necrotic Tissue Type Adherent Slough Adherent Slough Adherent Slough -Structure Exposed Fat Layer Muscle,Bone Exposed -Texture (Cydney-wound Skin Appearance) Assessed, No Abnormality, Assessed, Scarring Assessed Scarring -Moisture (Cydney-wound Skin Appearance) No Abnormality, Assessed Assessed -Color (Cydney-wound Skin Appearance) No Abnormality, No Abnormality, Assessed Assessed Assessed -Temperature (Cydney-wound Skin No Abnormality No Abnormality No Abnormality Appearance) (Pt Warm) (Pt Warm) (Pt Warm) -Tenderness on Palpation (Cydney-wound No Yes Yes Skin Appearance) -Ulcer Cleansing Rinsed/ Rinsed/ Soap and Water Irrigated with Irrigated with Saline Saline -Foul Odor after Cleansing No No No -Anesthetic Used 5% Lidocaine 4% Lidocaine 4% Lidocaine Gel Solution,5% Solution Lidocaine Gel WC - Nurse 2 - General Ulcer CM Notes Start: 12/20/20 13:48 Freq: Status: Active Protocol: Activity Type Activity Date Activity User E-Sign Co-Sign Detail Recorded Client Recorded Date Recorded By Document 12/20/20 14:09 MW [id number] 12/20/20 14:15 MW Document 12/27/20 13:26 MW [id number] 12/27/20 13:30 MW Edit Result 12/27/20 13:26 MW (1) [id number] 12/27/20 13:33 MW Document 01/03/21 14:26 MW [id number] 01/03/21 14:28 MW (1) #1 Sacral - Clinical Debridement Subcutaneous => Muscle / Fascia - Tissue Removed Subcutaneous => Muscle,Fascia - Debridement - Subq, 1st 20sq cm Yes => - Debridement - Muscle / Fascia, 1st => Yes 20sq cm 12/20/20 12/27/20 01/03/21 14:09 13:26 14:26 Wound Center Nurse 2 #2- R HIP -Time 14:26 -Correct Patient Yes -Correct Side, Site, Position Yes -Correct Procedure Yes -Procedure Performed Yes -Type of Procedure Debridement -Clinical Debridement Subcutaneous -Tissue Removed Subcutaneous -Post Debridement (cm) - Length 1.5 -Post Debridement (cm) - Width 3.0 -Post Debridement (cm) - Depth 0.1 -Total Square (Post) (cm) 4.50 -Area of Debridement (cm) - Length 1.5 -Area of Debridement (cm) - Width 3.0 -Total Square (Area) (cm) 4.50 -Tunneling No -Undermining/Tunneling No -Circular Undermining No -Wound/Ulcer Outcome Not Healed -Ulcer Cleansing Rinsed/ Irrigated with Saline -Foul Odor after Cleansing No -Bioengineered Tissue No -Bleeding Controlled with Pressure -Offloading No -Treatment Response Procedure Tolerated Well -Debridement - Subq, 1st 20sq cm Yes #1 Sacral -Time 14:12 13:26 14:27 -Correct Patient Yes Yes Yes -Correct Side, Site, Position Yes Yes Yes -Correct Procedure Yes Yes Yes -Procedure Performed Yes Yes Yes -Type of Procedure Debridement Debridement Debridement -Clinical Debridement Muscle / Fascia Muscle / Fascia Subcutaneous -Tissue Removed Muscle,Fascia Muscle,Fascia Subcutaneous -Post Debridement (cm) - Length 4.0 3.2 3.3 -Post Debridement (cm) - Width 3.5 3.4 2.5 -Post Debridement (cm) - Depth 2.2 1.1 0.8 -Total Square (Post) (cm) 14.00 10.88 8.25 -Area of Debridement (cm) - Length 4.0 3.2 3.3 -Area of Debridement (cm) - Width 3.5 3.4 2.5 -Total Square (Area) (cm) 14.00 10.88 8.25 -Tunneling No No No -Undermining/Tunneling Yes Yes Yes -Undermining/Tunneling Starts (O'clock 12 1 1 ) -Undermining/Tunneling Ends (O'clock) 4 5 5 -Maximum Distance (cm) 3.5 2.8 2.2 -Circular Undermining No No No -Wound/Ulcer Outcome Not Healed Not Healed Not Healed -Ulcer Cleansing Rinsed/ Rinsed/ Rinsed/ Irrigated with Irrigated with Irrigated with Saline Saline Saline -Foul Odor after Cleansing No No No -Bioengineered Tissue No No No -Bleeding Controlled with Pressure Pressure Pressure -Offloading No No No -Treatment Response Procedure Procedure Procedure Tolerated Well Tolerated Well Tolerated Well -Debridement - Subq, 1st 20sq cm No -Debridement - Muscle / Fascia, 1st Yes Yes 20sq cm Pain Scale: 0-10 Numeric Is Patient Pain Free? Yes Yes Yes - Nurse 3 - General Ulcer D/C NN Start: 12/20/20 13:48 Freq: Status: Active Protocol: Activity Type Activity Date Activity User E-Sign Co-Sign Detail Recorded Client Recorded Date Recorded By Document 12/20/20 14:34 DL [id number] 12/20/20 14:34 DL Document 12/27/20 13:37 DL [id number] 12/27/20 13:45 DL Document 01/03/21 14:39 KR [id number] 01/03/21 14:40 KR 12/20/20 12/27/20 01/03/21 14:34 13:37 14:39 Wound Care Nurse 3 #2- R HIP -Ulcer Cleansing Rinsed/ Irrigated with Saline -Primary Dressing Applied Mepilex Border, Promogran Ginny Matter -Mepilex Border 1 -Promogran Ginny Matter 1 #1 Sacral -Ulcer Cleansing Wound Cleanser Soap and Water -Foul Odor after Cleansing No No -Primary Dressing Applied Mepilex Border -Other Dressing santyl santyl abd pad. Wet to Dry dressing -Primary Dressing Covered/Secured with Dry Gauze, Dry Gauze, Secured with Secured with Tape Tape -Other Covering moistened gauze -Mepilex Border 1 Treatment Response Procedure Procedure Tolerated Well Tolerated Well Pain Scale: 0-10 Numeric Is Patient Pain Free? Yes Yes Yes - Visit Discharge Discharge Condition Stable Stable Stable Ambulatory Status Wheelchair Wheelchair Wheelchair Transportation Private Auto Private Auto Private Auto Accompanied by family friend Facility Type Home Health Orders Sent Yes Assessment/Plan Assessment/Plan (1) Sacral decubitus ulcer: CODE(S): L89.159 - Pressure ulcer of sacral region, unspecified stage QUALIFIERS: Pressure injury stage: stage 4 Qualified Code(s): L89.154 - Pressure ulcer of sacral region, stage 4 (2) Multiple sclerosis: CODE(S): G35 - Multiple sclerosis (3) Debility: CODE(S): R53.81 - Other malaise (4) Pressure injury of right hip, stage 2: CODE(S): L89.212 - Pressure ulcer of right hip, stage 2 PLAN: Debridement done as documented above, procedure was well-tolerated. less of a foul smell noted. Recently completed her antibiotics, no cultures taken at this time. X-ray ordered previously which was negative for osteomyelitis. For now, Cinthyayl daily covered with moistened gauze to the sacral pressure injury and she will do Ginny cover with foam dressing to the right hip pressure injury. Offloading recommended, a Roho cushion was ordered as patient is wheelchair-bound. Not able to do a hospital bed at this time. Not enough space with her who is terminal and currently uses one. She states that she will change positions as often as possible. Increased protein intake, vitamin C and Zinc also recommended. Labs ordered,pending results. Her questions were answered and she was advised to call with any further questions or concerns. Follow-up in 1 week with myself. This note was generated with [employer] dictation software. It may contain incorrect words, spelling, and punctuation that were not noted in checking the note before signing.
[2021-01-10 13:54] VITALS: BP 97/66; PULSE 93; RESP 16; TEMP 37.1
--- NOTE | 2021-01-10 21:12 | PN.PCM_ITS ---
History of Present Illness Date of Service: 01/10/21 Chief Complaint: Nonhealing sacral ulcer History of Wound: Ms. Byrnes is a 55-year-old who presents to the wound center due to nonhealing sacral ulcer. History of multiple sclerosis and has been wheelchair-bound for about 16 years. Ulcer noted about a month ago. Has been applying Adaptic and Aquacel to ulcer without any significant improvement. Was seen recently at the emergency room due to concerns by home health nurse for worsening ulcer. Started on antibiotics but she has noted no significant improvement. Foul smell. No significant drainage reported. Denies chills, fever or otherwise feeling of unwell. Progress of Wound: Sacral pressure ulcer shows less necrotic tissue and slough this week, the patient does state that her did pass away this week and she was laying in the same position for 4 days straight and therefore her pressure injury to her right hip has worsened and has more eschar on it this week and is unstageable. Denies any systemic or localized signs of infection at this time Objective Data Objective Data Vital Signs: Vital Signs Temp Pulse Resp BP 98.8 F 93 16 97/66 01/10/21 13:54 01/10/21 13:54 01/10/21 13:54 01/10/21 13:54 Oxygen Delivery Method Room Air Charges/Coding Procedures Integumentary [id number]: [id number] Natalia musc/fascia 20 sq cm/< Physical Exam Const alert, oriented x3 and no apparent distress General Appearance: cooperative and comfortable HEENT normocephalic and head/scalp atraumatic Head and Scalp: normal to inspection, normocephalic and atraumatic Eyes EOMs intact bilaterally Neck full ROM General: normal visual inspection Resp normal respiratory effort Effort and Inspection: able to speak in complete sentences Extremity normal to inspection Skin Wound Narrative: Stage IV pressure injury to sacrum with less slough this week, no signs of obvious infection at this time, unstageable pressure injury to right hip with adherent slough, eschar, no signs of obvious infection at this time Neuro oriented x3, CN's II-XII intact bilaterally and moves all extremities Psych mental status grossly normal Appearance: grossly normal Attitude: calm Speech: normal speech Debridement Note Debridement Note Wound debrided: stage 4 pressure injury to sacrum Type of Debridement: Selective debridement Depth: Down to and including healthy tissue, in the subcutaneous layer and to muscle Percentage of wound debrided: 100 Instrument Used: 5mm curette Tissue Removed: Slough and devitalized tissue Severity: Fat Layer Exposed Amount of bleeding with debridement: Mild Bleeding Controlled with: Pressure Patient tolerated procedure: Patient tolerated procedure well Post-Debridement Measurements and Additional Note: Post-Debridement Measurements/Treatment WC - Nurse 1 - General Ulcer Assessment Start: 12/20/20 13:48 Freq: Status: Active Protocol: ASHLEY Activity Type Activity Date Activity User E-Sign Co-Sign Detail Recorded Client Recorded Date Recorded By Document 12/20/20 13:49 KR [id number] 12/20/20 13:54 KR Document 12/27/20 13:03 AK [id number] 12/27/20 13:22 AK Document 01/03/21 13:44 BM [id number] 01/03/21 13:59 BMF Document 01/10/21 13:54 JF [id number] 01/10/21 14:02 JF 12/20/20 12/27/20 01/03/21 13:49 13:03 13:44 WC - Today's Visit Information Type of service Follow-up Visit Follow-up Visit Follow-up Visit (Physician/HISTORIOGRAPHY PROFESSOR (Physician/HISTORIOGRAPHY PROFESSOR (Physician/HISTORIOGRAPHY PROFESSOR ) ) ) Arrival Mode Wheelchair Wheelchair Wheelchair Transfer Assistance None None Accompanied by sister in law Patient Identification Verified (Name & Yes Yes Yes ) Patient Requires Transmission-Based No No Precautions Safety Precautions NA Vital Signs Temperature (97.8 F-99.1 F) 97.5 F L 97.2 F L 96.8 F L Temperature Source Temporal Temporal Temporal Pulse Rate (60-100) 67 64 70 Pulse Location Monitor Monitor Monitor Respiratory Rate (12-18) 16 Respiratory rate source Observation Oxygen Delivery Method Room Air Blood Pressure (90/60-120/80) 132/75 H 102/63 92/45 L Blood Pressure Mean (mm Hg) 94 76 60 Source Monitor Monitor Monitor Position Sitting Sitting Blood Pressure Location Right Arm History Since Last Visit- (Skip if this is Patient's initial visit) Have you changed medications since your No No No last visit? Any new allergies or adverse reactions No No No Had a fall/change in ADL's that may No No No increase risk of falls Signs or symptoms of abuse and/or No No No neglect since last visit Have you been in the hospital since your No No No last visit? Has dressing in place as prescribed Yes Yes Yes Has compression in place as prescribed N/A N/A N/A Has offloadiing in place as prescribed N/A Yes N/A Experienced any changes in pain level or No No No management Left Footwear Slipper Right Footwear Slipper Pain Scale: 0-10 Numeric Is Patient Pain Free? Yes Yes 01/10/21 13:54 WC - Today's Visit Information Type of service Follow-up Visit (Physician/HISTORIOGRAPHY PROFESSOR ) Arrival Mode Wheelchair Transfer Assistance Manual Accompanied by Patient Identification Verified (Name & Yes ) Patient Requires Transmission-Based No Precautions Safety Precautions Vital Signs Temperature (97.8 F-99.1 F) 98.8 F Temperature Source Temporal Pulse Rate (60-100) 93 Pulse Location Monitor Respiratory Rate (12-18) 16 Respiratory rate source Observation Oxygen Delivery Method Blood Pressure (90/60-120/80) 97/66 Blood Pressure Mean (mm Hg) 76 Source Monitor Position Sitting Blood Pressure Location Right Arm History Since Last Visit- (Skip if this is Patient's initial visit) Have you changed medications since your No last visit? Any new allergies or adverse reactions No Had a fall/change in ADL's that may No increase risk of falls Signs or symptoms of abuse and/or No neglect since last visit Have you been in the hospital since your No last visit? Has dressing in place as prescribed Yes Has compression in place as prescribed N/A Has offloadiing in place as prescribed No Experienced any changes in pain level or No management Left Footwear Right Footwear Pain Scale: 0-10 Numeric Is Patient Pain Free? Yes - Nurse 1 - General Ulcer Measurement Start: 12/20/20 13:48 Freq: Status: Active Protocol: Activity Type Activity Date Activity User E-Sign Co-Sign Detail Recorded Client Recorded Date Recorded By Document 12/20/20 13:49 KR [id number] 12/20/20 13:54 KR Edit Result 12/20/20 13:49 KR (1) [id number] 12/20/20 13:55 KR Document 12/27/20 13:03 AK [id number] 12/27/20 13:22 AK Document 01/03/21 13:44 BMF [id number] 01/03/21 13:59 BMF Document 01/10/21 13:54 JF [id number] 01/10/21 14:02 JF (1) #1 Sacral - Undermining/Tunneling Starts (O'clock) => 8 - Undermining/Tunneling Ends (O'clock) => 5 - Maximum Distance (cm) => 2.5 12/20/20 12/27/20 01/03/21 13:49 13:03 13:44 Wound Center Nurse 1 #2- R HIP -Combined with other wound No -Current Size (cm) - Length 0.1 -Current Size (cm) - Width 0.1 -Current Size (cm) - Depth 0.1 -Total Square Cm 0.01 -Date of Last Picture (Recall this 01/03/21 field) -Photo Taken Yes -Epithelialization None Present -Tunneling No -Undermining/Tunneling No -Circular Undermining No -Classification - Thickness -Exudate Amt Small -Exudate Type Serous -Wound Margin Flat & Intact -Granulation Amt Large (67-100%) -Granulation Quality [place] -Slough/Fibrin No -Necrosis Amt None Present (0 %) -Necrotic Tissue Type -Structure Exposed -Texture ([place]ydney-wound Skin Appearance) Assessed -Moisture ([place]ydney-wound Skin Appearance) Assessed -Color ([place]-wound Skin Appearance) Ecchymosis, Erythema -Temperature ([place]ydney-wound Skin No Abnormality Appearance) (Pt Warm) -Tenderness on Palpation ([place]ney-wound Yes Skin Appearance) -Ulcer Cleansing Soap and Water -Foul Odor after Cleansing No -Anesthetic Used 4% Lidocaine Solution #1 Sacral -Combined with other wound No No -Current Size (cm) - Length 3.5 3 2.8 -Current Size (cm) - Width 3.2 3.2 2.4 -Current Size (cm) - Depth 1.7 0.6 0.6 -Total Square Cm 11.20 9.6 6.72 -Photo Taken No No -Epithelialization None Present Small 1-33% -Tunneling No No -Tunneling Position (O'clock) 5 -Tunneling Distance (cm) 2 -Undermining/Tunneling Yes Yes -Undermining/Tunneling Starts (O'clock 8 12 12 ) -Undermining/Tunneling Ends (O'clock) 5 4 4 -Maximum Distance (cm) 2.5 0.6 1.7 -Circular Undermining No -Change in Wound Grade/Stage No -Exudate Amt Large Large Medium -Exudate Type Yellow/Green Yellow/Green Serosanguineous -Wound Margin Distinct, Distinct, Thickened Outline Outline Attached Attached -Granulation Amt Medium (34-66%) Medium (34-66%) -Granulation Quality Red Red -Slough/Fibrin Yes Yes -Necrosis Amt Medium (34-66%) Large (67-100%) Medium (34-66%) -Necrotic Tissue Type Adherent Slough Adherent Slough Adherent Slough -Structure Exposed Fat Layer Muscle,Bone Exposed -Texture ([place]ydney-wound Skin Appearance) Assessed, No Abnormality, Assessed, Scarring Assessed Scarring -Moisture ([place]-wound Skin Appearance) No Abnormality, Assessed Assessed -Color ([place]-wound Skin Appearance) No Abnormality, No Abnormality, Assessed Assessed Assessed -Temperature ([place]yd[place]-wound Skin No Abnormality No Abnormality No Abnormality Appearance) (Pt Warm) (Pt Warm) (Pt Warm) -Tenderness on Palpation ([place]yd[place]-wound No Yes Yes Skin Appearance) -Ulcer Cleansing Rinsed/ Rinsed/ Soap and Water Irrigated with Irrigated with Saline Saline -Foul Odor after Cleansing No No No -Anesthetic Used 5% Lidocaine 4% Lidocaine 4% Lidocaine Gel Solution,5% Solution Lidocaine Gel Lower Limb Edema Present 01/10/21 13:54 Wound Center Nurse 1 #2- R HIP -Combined with other wound No -Current Size (cm) - Length 3 -Current Size (cm) - Width 2.5 -Current Size (cm) - Depth 0.1 -Total Square Cm 7.5 -Date of Last Picture (Recall this field) -Photo Taken No -Epithelialization None Present -Tunneling No -Undermining/Tunneling No -Circular Undermining No -Classification - Thickness Unclassifiable (Eschar Covered ) -Exudate Amt -Exudate Type -Wound Margin Flat & Intact -Granulation Amt None Present (0 %) -Granulation Quality -Slough/Fibrin Yes -Necrosis Amt Large (67-100%) -Necrotic Tissue Type Eschar -Structure Exposed N/A -Texture ([place]ydney-wound Skin Appearance) Assessed -Moisture ([place]-wound Skin Appearance) Assessed -Color ([place]-wound Skin Appearance) Assessed -Temperature ([place]-wound Skin No Abnormality Appearance) (Pt Warm) -Tenderness on Palpation ([place]yd[place]-wound No Skin Appearance) -Ulcer Cleansing Rinsed/ Irrigated with Saline -Foul Odor after Cleansing No -Anesthetic Used 4% Lidocaine Solution #1 Sacral -Combined with other wound No -Current Size (cm) - Length 2.4 -Current Size (cm) - Width 2.4 -Current Size (cm) - Depth 1.2 -Total Square Cm 5.76 -Photo Taken No -Epithelialization None Present -Tunneling No -Tunneling Position (O'clock) -Tunneling Distance (cm) -Undermining/Tunneling No -Undermining/Tunneling Starts (O'clock ) -Undermining/Tunneling Ends (O'clock) -Maximum Distance (cm) -Circular Undermining No -Change in Wound Grade/Stage -Exudate Amt Medium -Exudate Type Sanguineous -Wound Margin Flat & Intact -Granulation Amt Small (1-33%) -Granulation Quality [place] -Slough/Fibrin Yes -Necrosis Amt Large (67-100%) -Necrotic Tissue Type Adherent Slough -Structure Exposed N/A -Texture ([place]yd[place]-wound Skin Appearance) Assessed -Moisture ([place]-wound Skin Appearance) Assessed -Color ([place]-wound Skin Appearance) Assessed -Temperature ([place]-wound Skin No Abnormality Appearance) (Pt Warm) -Tenderness on Palpation ([place]-wound No Skin Appearance) -Ulcer Cleansing Rinsed/ Irrigated with Saline -Foul Odor after Cleansing No -Anesthetic Used 4% Lidocaine Solution Lower Limb Edema Present NA WC - Nurse 2 - General Ulcer CM Notes Start: 12/20/20 13:48 Freq: Status: Active Protocol: Activity Type Activity Date Activity User E-Sign Co-Sign Detail Recorded Client Recorded Date Recorded By Document 12/20/20 14:09 MW [id number] 12/20/20 14:15 MW Document 12/27/20 13:26 MW [id number] 12/27/20 13:30 MW Edit Result 12/27/20 13:26 MW (1) [id number] 12/27/20 13:33 MW Document 01/03/21 14:26 MW [id number] 01/03/21 14:28 MW Document 01/10/21 14:16 MW [id number] 01/10/21 14:21 MW (1) #1 Sacral - Clinical Debridement Subcutaneous => Muscle / Fascia - Tissue Removed Subcutaneous => Muscle,Fascia - Debridement - Subq, 1st 20sq cm Yes => - Debridement - Muscle / Fascia, 1st => Yes 20sq cm 12/20/20 12/27/2001/03/21 14:09 13:26 14:26 Wound Center Nurse 2 #2- R HIP -Time 14:26 -Correct Patient Yes -Correct Side, Site, Position Yes -Correct Procedure Yes -Procedure Performed Yes -Type of Procedure Debridement -Clinical Debridement Subcutaneous -Tissue Removed Subcutaneous -Post Debridement (cm) - Length 1.5 -Post Debridement (cm) - Width 3.0 -Post Debridement (cm) - Depth 0.1 -Total Square (Post) (cm) 4.50 -Area of Debridement (cm) - Length 1.5 -Area of Debridement (cm) - Width 3.0 -Total Square (Area) (cm) 4.50 -Tunneling No -Undermining/Tunneling No -Circular Undermining No -Wound/Ulcer Outcome Not Healed -Ulcer Cleansing Rinsed/ Irrigated with Saline -Foul Odor after Cleansing No -Bioengineered Tissue No -Bleeding Controlled with Pressure -Offloading No -Treatment Response Procedure Tolerated Well -Debridement - Subq, 1st 20sq cm Yes #1 Sacral -Time 14:12 13:26 14:27 -Correct Patient Yes Yes Yes -Correct Side, Site, Position Yes Yes Yes -Correct Procedure Yes Yes Yes -Procedure Performed Yes Yes Yes -Type of Procedure Debridement Debridement Debridement -Clinical Debridement Muscle / Fascia Muscle / Fascia Subcutaneous -Tissue Removed Muscle,Fascia Muscle,Fascia Subcutaneous -Post Debridement (cm) - Length 4.0 3.2 3.3 -Post Debridement (cm) - Width 3.5 3.4 2.5 -Post Debridement (cm) - Depth 2.2 1.1 0.8 -Total Square (Post) (cm) 14.00 10.88 8.25 -Area of Debridement (cm) - Length 4.0 3.2 3.3 -Area of Debridement (cm) - Width 3.5 3.4 2.5 -Total Square (Area) (cm) 14.00 10.88 8.25 -Tunneling No No No -Undermining/Tunneling Yes Yes Yes -Undermining/Tunneling Starts (O'clock 12 1 1 ) -Undermining/Tunneling Ends (O'clock) 4 5 5 -Maximum Distance (cm) 3.5 2.8 2.2 -Circular Undermining No No No -Wound/Ulcer Outcome Not Healed Not Healed Not Healed -Ulcer Cleansing Rinsed/ Rinsed/ Rinsed/ Irrigated with Irrigated with Irrigated with Saline Saline Saline -Foul Odor after Cleansing No No No -Bioengineered Tissue No No No -Bleeding Controlled with Pressure Pressure Pressure -Offloading No No No -Treatment Response Procedure Procedure Procedure Tolerated Well Tolerated Well Tolerated Well -Debridement - Subq, 1st 20sq cm No -Debridement - Muscle / Fascia, 1st Yes Yes 20sq cm Pain Scale: 0-10 Numeric Is Patient Pain Free? Yes Yes Yes 01/10/21 14:16 Wound Center Nurse 2 #2- R HIP -Time 14:16 -Correct Patient Yes -Correct Side, Site, Position Yes -Correct Procedure Yes -Procedure Performed Yes -Type of Procedure Debridement -Clinical Debridement Subcutaneous -Tissue Removed Subcutaneous -Post Debridement (cm) - Length 5.0 -Post Debridement (cm) - Width 3.5 -Post Debridement (cm) - Depth 0.1 -Total Square (Post) (cm) 17.50 -Area of Debridement (cm) - Length 5.0 -Area of Debridement (cm) - Width 3.5 -Total Square (Area) (cm) 17.50 -Tunneling No -Undermining/Tunneling No -Circular Undermining No -Wound/Ulcer Outcome Not Healed -Ulcer Cleansing Rinsed/ Irrigated with Saline -Foul Odor after Cleansing No -Bioengineered Tissue No -Bleeding Controlled with Pressure -Offloading No -Treatment Response Procedure Tolerated Well -Debridement - Subq, 1st 20sq cm No #1 Sacral -Time 14:16 -Correct Patient Yes -Correct Side, Site, Position Yes -Correct Procedure Yes -Procedure Performed Yes -Type of Procedure Debridement -Clinical Debridement Muscle / Fascia -Tissue Removed Muscle,Fascia -Post Debridement (cm) - Length 2.8 -Post Debridement (cm) - Width 2.9 -Post Debridement (cm) - Depth 0.5 -Total Square (Post) (cm) 8.12 -Area of Debridement (cm) - Length 2.8 -Area of Debridement (cm) - Width 2.9 -Total Square (Area) (cm) 8.12 -Tunneling No -Undermining/Tunneling No -Undermining/Tunneling Starts (O'clock ) -Undermining/Tunneling Ends (O'clock) -Maximum Distance (cm) -Circular Undermining No -Wound/Ulcer Outcome Not Healed -Ulcer Cleansing Rinsed/ Irrigated with Saline -Foul Odor after Cleansing No -Bioengineered Tissue No -Bleeding Controlled with Pressure -Offloading No -Treatment Response Procedure Tolerated Well -Debridement - Subq, 1st 20sq cm -Debridement - Muscle / Fascia, 1st Yes 20sq cm Pain Scale: 0-10 Numeric Is Patient Pain Free? Yes WC - Nurse 3 - General Ulcer D/C NN Start: 12/20/20 13:48 Freq: Status: Active Protocol: Activity Type Activity Date Activity User E-Sign Co-Sign Detail Recorded Client Recorded Date Recorded By Document 12/20/20 14:34 DL [id number] 12/20/20 14:34 DL Document 12/27/20 13:37 DL [id number] 12/27/20 13:45 DL Document 01/03/21 14:39 KR [id number] 01/03/21 14:40 KR Document 01/10/21 14:23 MW [id number] 01/10/21 14:38 MW Edit Result 01/10/21 14:23 MW (1) [id number] 01/11/21 07:11 PL (1) #2- R HIP - NPWT Application Charge NPWT </= 50 sq cm => NPWT & Debridement ($) => (nc) #1 Sacral - NPWT Application Charge NPWT </= 50 sq cm => NPWT & Debridement ($) => (nc) 12/20/20 12/27/20 01/03/21 14:34 13:37 14:39 Wound Care Nurse 3 #2- R HIP -Ulcer Cleansing Rinsed/ Irrigated with Saline -Foul Odor after Cleansing -Primary Dressing Applied Mepilex Border, Promogran Ginny Matter -Other Dressing -NPWT Application Charge -Mepilex Border 1 -Promogran Ginny Matter 1 #1 Sacral -Ulcer Cleansing Wound Cleanser Soap and Water -Foul Odor after Cleansing No No -Negative Pressure Wound Therapy -Setting (mmHg) -Negative Pressure is -Primary Dressing Applied Mepilex Border -Other Dressing santyl santyl abd pad. Wet to Dry dressing -Primary Dressing Covered/Secured with Dry Gauze, Dry Gauze, Secured with Secured with Tape Tape -Other Covering moistened gauze -NPWT Application Charge -Mepilex Border 1 [place]-Wound Care Treatment Response Procedure Procedure Tolerated Well Tolerated Well Pain Scale: 0-10 Numeric Is Patient Pain Free? Yes Yes Yes WC - Visit Discharge Discharge Condition Stable Stable Stable Ambulatory Status Wheelchair Wheelchair Wheelchair Transportation Private Auto Private Auto Private Auto Accompanied by family friend Facility Type Home Health Orders Sent Yes 01/10/21 14:23 Wound Care Nurse 3 #2- R HIP -Ulcer Cleansing Not Cleansed -Foul Odor after Cleansing No -Primary Dressing Applied Mepilex Border -Other Dressing santyl -NPWT Application Charge NPWT & Debridement (nc ) -Mepilex Border 1 -Promogran Ginny Matter #1 Sacral -Ulcer Cleansing Not Cleansed -Foul Odor after Cleansing No -Negative Pressure Wound Therapy Start -Setting (mmHg) 150 -Negative Pressure is Continuous -Primary Dressing Applied -Other Dressing -Primary Dressing Covered/Secured with -Other Covering -NPWT Application Charge NPWT & Debridement (nc ) -Mepilex Border [place]-Wound Care Barrier Treatment Response Procedure Tolerated Well Pain Scale: 0-10 Numeric Is Patient Pain Free? Yes WC - Visit Discharge Discharge Condition Stable Ambulatory Status Wheelchair Transportation Private Auto Accompanied by Facility Type Home Health Orders Sent Yes Additional Wound Wound debrided: Unstageable pressure injury right hip Laterality: Right Type of Debridement: Excisional debridement Anesthesia Used: 5% Lidocaine Gel Depth: in the subcutaneous layer Percentage of wound debrided: 100 Instrument Used: 5mm curette Tissue Removed: Slough and devitalized tissue Severity: Fat Layer Exposed Amount of bleeding with debridement: Mild Bleeding Controlled with: Pressure Patient tolerated procedure: Patient tolerated procedure well Assessment/Plan Assessment/Plan (1) Sacral decubitus ulcer: CODE(S): L89.159 - Pressure ulcer of sacral region, unspecified stage QUALIFIERS: Pressure injury stage: stage 4 Qualified Code(s): L89.154 - Pressure ulcer of sacral region, stage 4 (2) Multiple sclerosis: CODE(S): G35 - Multiple sclerosis (3) Debility: CODE(S): R53.81 - Other malaise (4) Pressure injury of right hip, stage 2: CODE(S): L89.212 - Pressure ulcer of right hip, stage 2 PLAN: Debridement done as documented above, procedure was well-tolerated. less of a foul smell noted. Recently completed her antibiotics, no cultures taken at this time. X-ray ordered previously which was negative for osteomyelitis. For now, Santyl daily covered with moistened gauze to the unstageable right pressure injury to the hip and will do the wound VAC at 150 mmHg with black foam change 3 times a week to the stage IV sacral pressure injury. Offloading recommended, a Roho cushion was ordered as patient is wheelchair-bound. We will also start the process of ordering an offloading hospital bed at this time.She states that she will change positions as often as possible. Increased protein intake, vitamin C and Zinc also recommended. Labs ordered,pending results. Her questions were answered and she was advised to call with any further questions or concerns. Follow-up in 1 week with myself. This note was generated with [employer] dictation software. It may contain incorrect words, spelling, and punctuation that were not noted in checking the note before signing.
== END 2021-01-13 23:59 ==
LOC: WC 13:45
PROVIDERS: PCP Family Medicine; Referring Provider Internal Medicine; Visit Provider Nurse Practitioner Family
DX: L89.154 Pressure ulcer of sacral region, stage 4 (principal); L89.212 Pressure ulcer of right hip, stage 2; G35 Multiple sclerosis; R53.81 Other malaise; Z99.3 Dependence on wheelchair; Z79.899 Other long term (current) drug therapy
CPT/HCPCS: 11042; 11043; 97605

== ENCOUNTER 2021-01-31 13:30 | Outpatient (RCR) | payer OTHER, SELFPAY ==
[2018-02-01 11:47] VITALS: BMI 15.0
[2021-01-14 00:30] VITALS: BP 97/66; PULSE 93; RESP 16; TEMP 37.1
[2021-01-17 13:34] VITALS: BP 96/65; PULSE 90; RESP 16; TEMP 36.7
--- NOTE | 2021-01-17 15:26 | PCM.WC.PN ---
History of Present Illness Date of Service: 01/17/21 Chief Complaint: Nonhealing sacral ulcer History of Wound: Ms. Byrnes is a 55-year-old who presents to the wound center due to nonhealing sacral ulcer. History of multiple sclerosis and has been wheelchair-bound for about 16 years. Ulcer noted about a month ago. Has been applying Adaptic and Aquacel to ulcer without any significant improvement. Was seen recently at the emergency room due to concerns by home health nurse for worsening ulcer. Started on antibiotics but she has noted no significant improvement. Foul smell. No significant drainage reported. Denies chills, fever or otherwise feeling of unwell. Progress of Wound: 01/17/2021?no new concerns, patient tolerating the wound VAC well for her sacral pressure ulcer, continues with Santyl to her unstageable hip pressure injury Objective Data Objective Data Vital Signs: Vital Signs Temp Pulse Resp BP 98.1 F 90 16 96/65 01/17/21 13:34 01/17/21 13:34 01/17/21 13:34 01/17/21 13:34 Charges/Coding Procedures Integumentary 111xxx-113xx: 16683 Natalia subq tissue 20 sq cm/< Add On Codes: 35309 Natalia subq tissue add-on Physical Exam Const alert, oriented x3 and no apparent distress General Appearance: cooperative and comfortable HEENT normocephalic and head/scalp atraumatic Head and Scalp: normal to inspection, normocephalic and atraumatic Eyes EOMs intact bilaterally Neck full ROM General: normal visual inspection Resp normal respiratory effort Effort and Inspection: able to speak in complete sentences Extremity normal to inspection Skin Wound Narrative: Stage IV pressure injury to sacrum with less slough this week, no signs of obvious infection at this time, unstageable pressure injury to right hip with adherent slough, eschar, no signs of obvious infection at this time Neuro oriented x3, CN's II-XII intact bilaterally and moves all extremities Psych mental status grossly normal Appearance: grossly normal Attitude: calm Speech: normal speech Debridement Note Debridement Note Wound debrided: Stage IV pressure injury to sacrum, unstageable pressure injury right hip Type of Debridement: Excisional debridement Anesthesia Used: 5% Lidocaine Gel Depth: Down to and including healthy tissue and in the subcutaneous layer Percentage of wound debrided: 100 Instrument Used: 5mm curette Tissue Removed: Slough and devitalized tissue Severity: Fat Layer Exposed Amount of bleeding with debridement: Mild Bleeding Controlled with: Pressure Patient tolerated procedure: Patient tolerated procedure well Post-Debridement Measurements and Additional Note: Post-Debridement Measurements/Treatment - Nurse 1 - General Ulcer Assessment Start: 01/17/21 13:34 Freq: Status: Active Protocol: ASHLEY Activity Type Activity Date Activity User E-Sign Co-Sign Detail Recorded Client Recorded Date Recorded By Document 01/17/21 13:34 DL [id number] 01/17/21 13:38 DL 01/17/21 13:34 - Today's Visit Information Type of service Follow-up Visit (Physician/BACTERIOLOGIST DAIRY ) Arrival Mode Wheelchair Transfer Assistance Manual Patient Identification Verified (Name & Yes ) Patient Requires Transmission-Based No Precautions Safety Precautions NA Vital Signs Temperature (97.8 F-99.1 F) 98.1 F Temperature Source Temporal Pulse Rate (60-100) 90 Pulse Location Monitor Respiratory Rate (12-18) 16 Respiratory rate source Observation Blood Pressure (90/60-120/80) 96/65 Blood Pressure Mean (mm Hg) 75 Source Monitor Position Sitting Blood Pressure Location Left Arm History Since Last Visit- (Skip if this is Patient's initial visit) Have you changed medications since your No last visit? Any new allergies or adverse reactions No Had a fall/change in ADL's that may No increase risk of falls Have you been in the hospital since your No last visit? Has dressing in place as prescribed Yes Has compression in place as prescribed N/A Has offloadiing in place as prescribed N/A Experienced any changes in pain level or No management Left Footwear Slipper Right Footwear Slipper Pain Scale: 0-10 Numeric Is Patient Pain Free? Yes - Nurse 1 - General Ulcer Measurement Start: 01/17/21 13:34 Freq: Status: Active Protocol: Activity Type Activity Date Activity User E-Sign Co-Sign Detail Recorded Client Recorded Date Recorded By Document 01/17/21 13:34 DL [id number] 01/17/21 13:38 DL 01/17/21 13:34 Wound Center Nurse 1 #2- R HIP -Current Size (cm) - Length 2.8 -Current Size (cm) - Width 3.6 -Current Size (cm) - Depth 0.1 -Total Square Cm 10.08 -Exudate Amt Small -Exudate Type Serosanguineous -Wound Margin Distinct, Outline Attached -Granulation Amt None Present (0 %) -Granulation Quality Red -Necrotic Tissue Type Eschar -Texture (Cydney-wound Skin Appearance) Assessed -Moisture (Cydney-wound Skin Appearance) Assessed -Color (Cydney-wound Skin Appearance) Assessed -Temperature (Cydney-wound Skin No Abnormality Appearance) (Pt Warm) -Tenderness on Palpation (Cydney-wound No Skin Appearance) -Ulcer Cleansing Soap and Water -Foul Odor after Cleansing No -Anesthetic Used 4% Lidocaine Solution #1 Sacral -Current Size (cm) - Length 1.8 -Current Size (cm) - Width 1.7 -Current Size (cm) - Depth 0.5 -Total Square Cm 3.06 -Maximum Distance #2 (cm) 0.6 -Circular Undermining Yes -Granulation Amt Small (1-33%) -Granulation Quality Red -Slough/Fibrin No -Necrosis Amt Medium (34-66%) -Necrotic Tissue Type Eschar -Texture (Cydney-wound Skin Appearance) Assessed -Moisture (Cydney-wound Skin Appearance) Assessed -Color (Cydney-wound Skin Appearance) Assessed -Temperature (Cydney-wound Skin No Abnormality Appearance) (Pt Warm) -Ulcer Cleansing Soap and Water -Foul Odor after Cleansing No -Anesthetic Used 4% Lidocaine Solution WC - Nurse 2 - General Ulcer CM Notes Start: 01/17/21 13:34 Freq: Status: Active Protocol: Activity Type Activity Date Activity User E-Sign Co-Sign Detail Recorded Client Recorded Date Recorded By Document 01/17/21 13:53 JOANNA [id number] 01/17/21 13:58 JOANNA 01/17/21 13:53 Wound Center Nurse 2 #2- R HIP -Time 13:56 -Correct Patient Yes -Correct Side, Site, Position Yes -Correct Procedure Yes -Procedure Performed Yes -Type of Procedure Debridement -Clinical Debridement Subcutaneous -Tissue Removed Subcutaneous -Post Debridement (cm) - Length 5 -Post Debridement (cm) - Width 3.7 -Post Debridement (cm) - Depth 0.1 -Total Square (Post) (cm) 18.5 -Area of Debridement (cm) - Length 5 -Area of Debridement (cm) - Width 3.7 -Total Square (Area) (cm) 18.5 -Tunneling No -Undermining/Tunneling No -Circular Undermining No -Ulcer Cleansing Rinsed/ Irrigated with Saline -Foul Odor after Cleansing No -Bioengineered Tissue No -Bleeding Controlled with Pressure -Offloading No -Treatment Response Procedure Tolerated Well -Debridement - Subq, 1st 20sq cm No #1 Sacral -Time 13:53 -Correct Patient Yes -Correct Side, Site, Position Yes -Correct Procedure Yes -Procedure Performed Yes -Type of Procedure Debridement -Clinical Debridement Subcutaneous -Tissue Removed Subcutaneous -Post Debridement (cm) - Length 2.2 -Post Debridement (cm) - Width 2.1 -Post Debridement (cm) - Depth 0.6 -Total Square (Post) (cm) 4.62 -Area of Debridement (cm) - Length 2.2 -Area of Debridement (cm) - Width 2.1 -Total Square (Area) (cm) 4.62 -Tunneling No -Undermining/Tunneling Yes -Undermining/Tunneling Starts (O'clock 1 ) -Undermining/Tunneling Ends (O'clock) 3 -Maximum Distance (cm) 0.9 -Circular Undermining No -Ulcer Cleansing Rinsed/ Irrigated with Saline -Foul Odor after Cleansing No -Bioengineered Tissue No -Bleeding Controlled with Pressure -Offloading No -Treatment Response Procedure Tolerated Well -Debridement - Subq, 1st 20sq cm Yes -Debridement, SubQ, ea addt'l 20sq cm 1 or part thereof Pain Scale: 0-10 Numeric Is Patient Pain Free? Yes WC - Nurse 3 - General Ulcer D/C NN Start: 01/17/21 13:34 Freq: Status: Active Protocol: Activity Type Activity Date Activity User E-Sign Co-Sign Detail Recorded Client Recorded Date Recorded By Document 01/17/21 14:07 DL [id number] 01/17/21 14:10 DL Document 01/17/21 14:28 DL [id number] 01/17/21 14:31 DL 01/17/21 01/17/21 14:07 14:28 Wound Care Nurse 3 #2- R HIP -Ulcer Cleansing Rinsed/ Rinsed/ Irrigated with Irrigated with Saline Saline -Foul Odor after Cleansing No No -Primary Dressing Applied NonAdherent Mepilex Border Contact Layer -Other Dressing santyl santyl -Mepilex Border 1 #1 Sacral -Ulcer Cleansing Rinsed/ Wound Cleanser Irrigated with Saline -Foul Odor after Cleansing No No -Negative Pressure Wound Therapy Continue Continue -Setting (mmHg) 150 150 -Negative Pressure is Continuous Continuous -NPWT Application Charge NPWT </= 50 sq NPWT </= 50 sq cm ($) cm ($) Treatment Response Procedure Procedure Tolerated Well Tolerated Well Pain Scale: 0-10 Numeric Is Patient Pain Free? Yes Yes WC - Visit Discharge Discharge Condition Stable Stable Ambulatory Status Wheelchair Wheelchair Transportation Private Auto Accompanied by family Medication Reconcilliation completed & Yes provided to patient/care provider Facility Type Home Health Home Health Orders Sent Yes Yes Assessment/Plan Assessment/Plan (1) Sacral decubitus ulcer: CODE(S): L89.159 - Pressure ulcer of sacral region, unspecified stage QUALIFIERS: Pressure injury stage: stage 4 Qualified Code(s): L89.154 - Pressure ulcer of sacral region, stage 4 (2) Multiple sclerosis: CODE(S): G35 - Multiple sclerosis (3) Debility: CODE(S): R53.81 - Other malaise (4) Pressure injury of right hip, stage 2: CODE(S): L89.212 - Pressure ulcer of right hip, stage 2 PLAN: Debridement done as documented above, procedure was well-tolerated. Recently completed her antibiotics, no cultures taken at this time. X-ray ordered previously which was negative for osteomyelitis. For now, Santyl daily covered with moistened gauze to the unstageable right pressure injury to the hip and will do the wound VAC at 150 mmHg with black foam change 3 times a week to the stage IV sacral pressure injury. Offloading recommended, a Roho cushion was ordered as patient is wheelchair-bound. We will also start the process of ordering an offloading low air loss [facility] bed at this time.She states that she will change positions as often as possible. Increased protein intake, vitamin C and Zinc also recommended. Labs ordered,pending results. Her questions were answered and she was advised to call with any further questions or concerns. Follow-up in 1 week with myself. This note was generated with [employer] software. It may contain incorrect words, spelling, and punctuation that were not noted in checking the note before signing.
[2021-01-24 14:05] VITALS: BP 111/73; PULSE 76; TEMP 36.1
--- NOTE | 2021-01-24 16:45 | PCM.WC.PN ---
History of Present Illness Date of Service: 01/24/21 Chief Complaint: Nonhealing sacral ulcer History of Wound: Ms. Byrnes is a 55-year-old who presents to the wound center due to nonhealing sacral ulcer. History of multiple sclerosis and has been wheelchair-bound for about 16 years. Ulcer noted about a month ago. Has been applying Adaptic and Aquacel to ulcer without any significant improvement. Was seen recently at the emergency room due to concerns by home health nurse for worsening ulcer. Started on antibiotics but she has noted no significant improvement. Foul smell. No significant drainage reported. Denies chills, fever or otherwise feeling of unwell. Progress of Wound: 01/17/2021?no new concerns, patient tolerating the wound VAC well for her sacral pressure ulcer, continues with Santyl to her unstageable hip pressure injury 01/24/2021?no new concerns, patient tolerating the VAC well and continues with Santyl to her hip pressure injury on the right side. She is utilizing a pressure relieving mattress that she bought online currently. Objective Data Objective Data Vital Signs: Vital Signs Temp Pulse Resp BP 97.0 F L 76 16 111/73 01/24/21 14:05 01/24/21 14:05 01/17/21 13:34 01/24/21 14:05 Charges/Coding Procedures Integumentary 111xxx-113xx: 32329 Natalia subq tissue 20 sq cm/< Physical Exam Const alert, oriented x3 and no apparent distress General Appearance: cooperative and comfortable HEENT normocephalic and head/scalp atraumatic Head and Scalp: normal to inspection, normocephalic and atraumatic Eyes EOMs intact bilaterally Neck full ROM General: normal visual inspection Resp normal respiratory effort Effort and Inspection: able to speak in complete sentences Extremity normal to inspection Skin Wound Narrative: Stage IV pressure injury to sacrum with less slough this week, no signs of obvious infection at this time, unstageable pressure injury to right hip with adherent slough, eschar, no signs of obvious infection at this time Neuro oriented x3, CN's II-XII intact bilaterally and moves all extremities Psych mental status grossly normal Appearance: grossly normal Attitude: calm Speech: normal speech Debridement Note Debridement Note Wound debrided: Stage IV pressure injury of the sacrumunstageable pressure injury right hip Type of Debridement: Excisional debridement Anesthesia Used: 4% Lidocaine Solution and 5% Lidocaine Gel Depth: Down to and including healthy tissue and in the subcutaneous layer Instrument Used: 5mm curette and #11 blade Tissue Removed: Slough, eschar, devitalized tissue Severity: Fat Layer Exposed Amount of bleeding with debridement: Mild Bleeding Controlled with: Pressure Patient tolerated procedure: Patient tolerated procedure well Post-Debridement Measurements and Additional Note: Post-Debridement Measurements/Treatment REA - Nurse 1 - General Ulcer Assessment Start: 01/17/21 13:34 Freq: Status: Active Protocol: ASHLEY Activity Type Activity Date Activity User E-Sign Co-Sign Detail Recorded Client Recorded Date Recorded By Document 01/17/21 13:34 DL [id number] 01/17/21 13:38 DL Document 01/24/21 14:05 KR [id number] 01/24/21 14:16 KR 01/17/21 01/24/21 13:34 14:05 REA - Today's Visit Information Type of service Follow-up Visit Follow-up Visit (Physician/FOLDING MACHINE TENDER (Physician/FOLDING MACHINE TENDER ) ) Arrival Mode Wheelchair Ambulatory Transfer Assistance Manual Patient Identification Verified (Name & Yes Yes ) Patient Requires Transmission-Based No Precautions Safety Precautions NA Vital Signs Temperature (97.8 F-99.1 F) 98.1 F 97.0 F L Temperature Source Temporal Temporal Pulse Rate (60-100) 90 76 Pulse Location Monitor Monitor Respiratory Rate (12-18) 16 Respiratory rate source Observation Blood Pressure (90/60-120/80) 96/65 111/73 Blood Pressure Mean (mm Hg) 75 85 Source Monitor Monitor Position Sitting Semi-Fowlers Blood Pressure Location Left Arm Left Arm History Since Last Visit- (Skip if this is Patient's initial visit) Have you changed medications since your No No last visit? Any new allergies or adverse reactions No No Had a fall/change in ADL's that may No No increase risk of falls Signs or symptoms of abuse and/or No neglect since last visit Have you been in the hospital since your No No last visit? Has dressing in place as prescribed Yes Yes Has compression in place as prescribed N/A N/A Has offloadiing in place as prescribed N/A N/A Experienced any changes in pain level or No No management Left Footwear Slipper Right Footwear Slipper Pain Scale: 0-10 Numeric Is Patient Pain Free? Yes Yes - Nurse 1 - General Ulcer Measurement Start: 01/17/21 13:34 Freq: Status: Active Protocol: Activity Type Activity Date Activity User E-Sign Co-Sign Detail Recorded Client Recorded Date Recorded By Document 01/17/21 13:34 DL [id number] 01/17/21 13:38 DL Document 01/24/21 14:05 KR [id number] 01/24/21 14:16 KR 01/17/21 01/24/21 13:34 14:05 Wound Center Nurse 1 #2- R HIP -Combined with other wound No -Current Size (cm) - Length 2.8 3.6 -Current Size (cm) - Width 3.6 3 -Current Size (cm) - Depth 0.1 0.1 -Total Square Cm 10.08 10.8 -Photo Taken No -Tunneling No -Undermining/Tunneling No -Circular Undermining No -Exudate Amt Small Small -Exudate Type Serosanguineous Serous -Wound Margin Distinct, Distinct, Outline Outline Attached Attached -Granulation Amt None Present (0 %) -Granulation Quality Red N/A -Slough/Fibrin No -Necrosis Amt Large (67-100%) -Necrotic Tissue Type Eschar Eschar -Structure Exposed N/A -Texture (Cydney-wound Skin Appearance) Assessed No Abnormality, Assessed -Moisture (Cydney-wound Skin Appearance) Assessed No Abnormality, Assessed -Color (Cydney-wound Skin Appearance) Assessed No Abnormality, Assessed -Temperature (Cydney-wound Skin No Abnormality No Abnormality Appearance) (Pt Warm) (Pt Warm) -Tenderness on Palpation (Cydney-wound No No Skin Appearance) -Ulcer Cleansing Soap and Water Soap and Water -Foul Odor after Cleansing No No -Anesthetic Used 4% Lidocaine 4% Lidocaine Solution Solution #1 Sacral -Combined with other wound No -Current Size (cm) - Length 1.8 1.9 -Current Size (cm) - Width 1.7 1.7 -Current Size (cm) - Depth 0.5 0.4 -Total Square Cm 3.06 3.23 -Photo Taken No -Epithelialization Medium 34-66% -Tunneling No -Undermining/Tunneling No -Maximum Distance #2 (cm) 0.6 -Circular Undermining Yes No -Change in Wound Grade/Stage No -Exudate Amt Medium -Exudate Type Serosanguineous -Wound Margin Distinct, Outline Attached -Granulation Amt Small (1-33%) Medium (34-66%) -Granulation Quality Red Pale,[place] -Slough/Fibrin No Yes -Necrosis Amt Medium (34-66%) Small (1-33%) -Necrotic Tissue Type Eschar Adherent Slough -Structure Exposed N/A -Texture (Cydney-wound Skin Appearance) Assessed No Abnormality, Assessed -Moisture (Cydney-wound Skin Appearance) Assessed Assessed -Color (Cydney-wound Skin Appearance) Assessed No Abnormality, Assessed -Temperature (Cydney-wound Skin No Abnormality No Abnormality Appearance) (Pt Warm) (Pt Warm) -Tenderness on Palpation (Cydney-wound No Skin Appearance) -Ulcer Cleansing Soap and Water Soap and Water -Foul Odor after Cleansing No Yes -Anesthetic Used 4% Lidocaine 4% Lidocaine Solution Solution WC - Nurse 2 - General Ulcer CM Notes Start: 01/17/21 13:34 Freq: Status: Active Protocol: Activity Type Activity Date Activity User E-Sign Co-Sign Detail Recorded Client Recorded Date Recorded By Document 01/17/21 13:53 [id number] 01/17/21 13:58 Document 01/24/21 14:35 MW [id number] 01/24/21 14:37 MW 01/17/21 01/24/21 13:53 14:35 Wound Center Nurse 2 #2- R HIP -Time 13:56 14:36 -Correct Patient Yes Yes -Correct Side, Site, Position Yes Yes -Correct Procedure Yes Yes -Procedure Performed Yes Yes -Type of Procedure Debridement Debridement -Clinical Debridement Subcutaneous Subcutaneous -Tissue Removed Subcutaneous Subcutaneous -Post Debridement (cm) - Length 5 4.9 -Post Debridement (cm) - Width 3.7 3.5 -Post Debridement (cm) - Depth 0.1 0.2 -Total Square (Post) (cm) 18.5 17.15 -Area of Debridement (cm) - Length 5 4.9 -Area of Debridement (cm) - Width 3.7 3.5 -Total Square (Area) (cm) 18.5 17.15 -Tunneling No No -Undermining/Tunneling No No -Circular Undermining No No -Wound/Ulcer Outcome Not Healed -Ulcer Cleansing Rinsed/ Rinsed/ Irrigated with Irrigated with Saline Saline -Foul Odor after Cleansing No No -Bioengineered Tissue No No -Bleeding Controlled with Pressure Pressure -Offloading No No -Treatment Response Procedure Procedure Tolerated Well Tolerated Well -Debridement - Subq, 1st 20sq cm No Yes #1 Sacral -Time 13:53 14:36 -Correct Patient Yes Yes -Correct Side, Site, Position Yes Yes -Correct Procedure Yes Yes -Procedure Performed Yes Yes -Type of Procedure Debridement Debridement -Clinical Debridement Subcutaneous Subcutaneous -Tissue Removed Subcutaneous Subcutaneous -Post Debridement (cm) - Length 2.2 2.1 -Post Debridement (cm) - Width 2.1 2.0 -Post Debridement (cm) - Depth 0.6 0.5 -Total Square (Post) (cm) 4.62 4.20 -Area of Debridement (cm) - Length 2.2 2.1 -Area of Debridement (cm) - Width 2.1 2.0 -Total Square (Area) (cm) 4.62 4.20 -Tunneling No No -Undermining/Tunneling Yes No -Undermining/Tunneling Starts (O'clock 1 ) -Undermining/Tunneling Ends (O'clock) 3 -Maximum Distance (cm) 0.9 -Circular Undermining No No -Wound/Ulcer Outcome Not Healed -Ulcer Cleansing Rinsed/ Rinsed/ Irrigated with Irrigated with Saline Saline -Foul Odor after Cleansing No No -Bioengineered Tissue No No -Bleeding Controlled with Pressure Pressure -Offloading No No -Treatment Response Procedure Procedure Tolerated Well Tolerated Well -Debridement - Subq, 1st 20sq cm Yes No -Debridement, SubQ, ea addt'l 20sq cm 1 or part thereof Pain Scale: 0-10 Numeric Is Patient Pain Free? Yes Yes - Nurse 3 - General Ulcer D/C NN Start: 01/17/21 13:34 Freq: Status: Active Protocol: Activity Type Activity Date Activity User E-Sign Co-Sign Detail Recorded Client Recorded Date Recorded By Document 01/17/21 14:07 DL [id number] 01/17/21 14:10 DL Document 01/17/21 14:28 DL [id number] 01/17/21 14:31 DL Edit Result 01/17/21 14:28 DL (1) [id number] 01/17/21 15:42 PL Document 01/24/21 15:38 JF [id number] 01/24/21 15:39 JF (1) #1 Sacral - NPWT Application Charge NPWT </= 50 sq cm => NPWT & Debridement ($) => (nc) 01/17/21 01/17/21 01/24/21 14:07 14:28 15:38 Wound Care Nurse 3 #2- R HIP -Ulcer Cleansing Rinsed/ Rinsed/ Rinsed/ Irrigated with Irrigated with Irrigated with Saline Saline Saline -Foul Odor after Cleansing No No No -Primary Dressing Applied NonAdherent Mepilex Border Enzymatic, Contact Layer NonAdherent Contact Layer -Other Dressing santyl santyl -Primary Dressing Covered/Secured with Dry Gauze, Secured with Tape -Mepilex Border 1 #1 Sacral -Ulcer Cleansing Rinsed/ Wound Cleanser Wound Cleanser Irrigated with Saline -Foul Odor after Cleansing No No No -Negative Pressure Wound Therapy Continue Continue Continue -Setting (mmHg) 150 150 150 -Negative Pressure is Continuous Continuous Continuous -NPWT Application Charge NPWT </= 50 sq NPWT & NPWT & cm ($) Debridement (nc Debridement (nc ) ) Treatment Response Procedure Procedure Tolerated Well Tolerated Well Pain Scale: 0-10 Numeric Is Patient Pain Free? Yes Yes WC - Visit Discharge Discharge Condition Stable Stable Stable Ambulatory Status Wheelchair Wheelchair Wheelchair Transportation Private Auto Private Auto Accompanied by family Medication Reconcilliation completed & Yes Yes provided to patient/care provider Clinical Summary of Care Provided Yes Facility Type Home Health Home Health Orders Sent Yes Yes Assessment/Plan Assessment/Plan (1) Sacral decubitus ulcer: CODE(S): L89.159 - Pressure ulcer of sacral region, unspecified stage QUALIFIERS: Pressure injury stage: stage 4 Qualified Code(s): L89.154 - Pressure ulcer of sacral region, stage 4 (2) Multiple sclerosis: CODE(S): G35 - Multiple sclerosis (3) Debility: CODE(S): R53.81 - Other malaise (4) Pressure injury of right hip, stage 2: CODE(S): L89.212 - Pressure ulcer of right hip, stage 2 PLAN: Debridement done as documented above, procedure was well-tolerated. Recently completed her antibiotics, no cultures taken at this time. X-ray ordered previously which was negative for osteomyelitis. For now, Negar daily covered with moistened gauze to the unstageable right pressure injury to the hip and will do the wound VAC at 150 mmHg with black foam change 3 times a week to the stage IV sacral pressure injury. Offloading recommended, a Roho cushion was ordered as patient is wheelchair-bound. We will also start the process of ordering an offloading low air loss mattress hospital bed at this time. Patient is currently utilizing a air loss mattress that she ordered online. She states that she will change positions as often as possible. Increased protein intake, vitamin C and Zinc also recommended. Labs ordered,pending results. Her questions were answered and she was advised to call with any further questions or concerns. Follow-up in 1 week with myself. This note was generated with [email or web address] dictation software. It may contain incorrect words, spelling, and punctuation that were not noted in checking the note before signing.
[2021-01-31 14:02] VITALS: BP 102/76; PULSE 76; TEMP 36.1
--- NOTE | 2021-01-31 19:26 | PN.PCM_ITS ---
History of Present Illness Date of Service: 01/31/21 Chief Complaint: Nonhealing sacral ulcer History of Wound: Ms. Byrnes is a 55-year-old who presents to the wound center due to nonhealing sacral ulcer. History of multiple sclerosis and has been wheelchair-bound for about 16 years. Ulcer noted about a month ago. Has been applying Adaptic and Aquacel to ulcer without any significant improvement. Was seen recently at the emergency room due to concerns by home health nurse for worsening ulcer. Started on antibiotics but she has noted no significant improvement. Foul smell. No significant drainage reported. Denies chills, fever or otherwise feeling of unwell. Progress of Wound: 01/17/2021?no new concerns, patient tolerating the wound VAC well for her sacral pressure ulcer, continues with Santyl to her unstageable hip pressure injury 01/24/2021?no new concerns, patient tolerating the VAC well and continues with Santyl to her hip pressure injury on the right side. She is utilizing a pressure relieving mattress that she bought online currently. 01/31/2021?patient's left hip is now ulcerated due to excess pressure, she continues with the pressure injury to the right hip and also to the sacral region. Patient has tolerated the wound VAC well to the sacral pressure injury however, there is delayed wound healing. Cultures were recollected today Objective Data Objective Data Vital Signs: Vital Signs Temp Pulse Resp BP 96.9 F L 76 16 102/76 01/31/21 14:02 01/31/21 14:02 01/17/21 13:34 01/31/21 14:02 Charges/Coding Procedures Integumentary [id number]: [id number] Natalia subq tissue 20 sq cm/< Physical Exam Const alert, oriented x3 and no apparent distress General Appearance: cooperative and comfortable HEENT normocephalic and head/scalp atraumatic Head and Scalp: normal to inspection, normocephalic and atraumatic Eyes EOMs intact bilaterally Neck full ROM General: normal visual inspection Resp normal respiratory effort Effort and Inspection: able to speak in complete sentences Extremity normal to inspection Skin Wound Narrative: Stage IV pressure injury to sacrum with less slough this week, no signs of obvious infection at this time, unstageable pressure injury to right hip with adherent slough, eschar, no signs of obvious infection at this time, unstageable pressure injury to left hip with adherent slough, eschar no signs of obvious infection Neuro oriented x3, CN's II-XII intact bilaterally and moves all extremities Psych mental status grossly normal Appearance: grossly normal Attitude: calm Speech: normal speech Debridement Note Debridement Note Wound debrided: Stage IV pressure injury to sacrum Type of Debridement: Excisional debridement Anesthesia Used: 5% Lidocaine Gel Depth: Down to and including healthy tissue and in the subcutaneous layer Instrument Used: 3mm curette Severity: Fat Layer Exposed Amount of bleeding with debridement: Mild Bleeding Controlled with: Pressure Patient tolerated procedure: Patient tolerated procedure well Post-Debridement Measurements and Additional Note: Post-Debridement Measurements/Treatment - Nurse 1 - General Ulcer Assessment Start: 01/17/21 13:34 Freq: Status: Active Protocol: ASHLEY Activity Type Activity Date Activity User E-Sign Co-Sign Detail Recorded Client Recorded Date Recorded By Document 01/17/21 13:34 DL [id number] 01/17/21 13:38 DL Document 01/24/21 14:05 KR [id number] 01/24/21 14:16 KR Document 01/31/21 14:02 AK [id number] 01/31/21 14:05 AK 01/17/21 01/24/21 01/31/21 13:34 14:05 14:02 - Today's Visit Information Type of service Follow-up Visit Follow-up Visit Follow-up Visit (Physician/BORING AND FILLING MACHINE OPERATOR (Physician/BORING AND FILLING MACHINE OPERATOR (Physician/BORING AND FILLING MACHINE OPERATOR ) ) ) Arrival Mode Wheelchair Ambulatory Wheelchair Transfer Assistance Manual Patient Identification Verified (Name & Yes Yes No ) Patient Requires Transmission-Based No No Precautions Safety Precautions NA NA Vital Signs Temperature (97.8 F-99.1 F) 98.1 F 97.0 F L 96.9 F L Temperature Source Temporal Temporal Temporal Pulse Rate (60-100) 90 76 76 Pulse Location Monitor Monitor Monitor Respiratory Rate (12-18) 16 Respiratory rate source Observation Blood Pressure (90/60-120/80) 96/65 111/73 102/76 Blood Pressure Mean (mm Hg) 75 85 84 Source Monitor Monitor Monitor Position Sitting Semi-Fowlers Blood Pressure Location Left Arm Left Arm History Since Last Visit- (Skip if this is Patient's initial visit) Have you changed medications since your No No No last visit? Any new allergies or adverse reactions No No No Had a fall/change in ADL's that may No No No increase risk of falls Signs or symptoms of abuse and/or No No neglect since last visit Have you been in the hospital since your No No No last visit? Has dressing in place as prescribed Yes Yes Yes Has compression in place as prescribed N/A N/A No Has offloadiing in place as prescribed N/A N/A N/A Experienced any changes in pain level or No No No management Left Footwear Slipper Slipper Right Footwear Slipper Slipper Pain Scale: 0-10 Numeric Is Patient Pain Free? Yes Yes WC - Nurse 1 - General Ulcer Measurement Start: 01/17/21 13:34 Freq: Status: Active Protocol: Activity Type Activity Date Activity User E-Sign Co-Sign Detail Recorded Client Recorded Date Recorded By Document 01/17/21 13:34 DL [id number] 01/17/21 13:38 DL Document 01/24/21 14:05 KR [id number] 01/24/21 14:16 KR Document 01/31/21 14:02 AK [id number] 01/31/21 14:05 AK 01/17/21 01/24/21 01/31/21 13:34 14:05 14:02 Wound Center Nurse 1 #2- R HIP -Combined with other wound No No -Current Size (cm) - Length 2.8 3.6 4.4 -Current Size (cm) - Width 3.6 3 3.2 -Current Size (cm) - Depth 0.1 0.1 0.2 -Total Square Cm 10.08 10.8 14.08 -Photo Taken No No -Epithelialization None Present -Tunneling No No -Undermining/Tunneling No No -Circular Undermining No No -Change in Wound Grade/Stage No -Exudate Amt Small Small None Present -Exudate Type Serosanguineous Serous -Wound Margin Distinct, Distinct, Outline Outline Attached Attached -Granulation Amt None Present (0 None Present (0 %) %) -Granulation Quality Red N/A N/A -Slough/Fibrin No No -Necrosis Amt Large (67-100%) None Present (0 %) -Necrotic Tissue Type Eschar Eschar Eschar -Structure Exposed N/A N/A -Texture (Cydney-wound Skin Appearance) Assessed No Abnormality, No Abnormality, Assessed Assessed -Moisture (Cydney-wound Skin Appearance) Assessed No Abnormality, No Abnormality, Assessed Assessed -Color (Cydney-wound Skin Appearance) Assessed No Abnormality, No Abnormality, Assessed Assessed -Temperature (Cydney-wound Skin No Abnormality No Abnormality No Abnormality Appearance) (Pt Warm) (Pt Warm) (Pt Warm) -Tenderness on Palpation (Cydney-wound No No No Skin Appearance) -Ulcer Cleansing Soap and Water Soap and Water Rinsed/ Irrigated with Saline -Foul Odor after Cleansing No No No -Anesthetic Used 4% Lidocaine 4% Lidocaine 4% Lidocaine Solution Solution Solution #1 Sacral -Combined with other wound No No -Current Size (cm) - Length 1.8 1.9 1.5 -Current Size (cm) - Width 1.7 1.7 1.5 -Current Size (cm) - Depth 0.5 0.4 0.1 -Total Square Cm 3.06 3.23 2.25 -Photo Taken No No -Epithelialization Medium 34-66% None Present -Tunneling No No -Undermining/Tunneling No -Maximum Distance #2 (cm) 0.6 -Circular Undermining Yes No No -Classification - Zavaleta Grading ( Grade 1 Diabetic Ulcer) -Change in Wound Grade/Stage No -Exudate Amt Medium -Exudate Type Serosanguineous -Wound Margin Distinct, Outline Attached -Granulation Amt Small (1-33%) Medium (34-66%) -Granulation Quality Red Pale,[place] -Slough/Fibrin No Yes No -Necrosis Amt Medium (34-66%) Small (1-33%) None Present (0 %) -Necrotic Tissue Type Eschar Adherent Slough Eschar -Structure Exposed N/A N/A -Texture (Cydney-wound Skin Appearance) Assessed No Abnormality, No Abnormality, Assessed Assessed -Moisture ([place]ydney-wound Skin Appearance) Assessed Assessed No Abnormality, Assessed, Maceration -Color (Cydney-wound Skin Appearance) Assessed No Abnormality, No Abnormality, Assessed Assessed -Temperature ([place]ydney-wound Skin No Abnormality No Abnormality No Abnormality Appearance) (Pt Warm) (Pt Warm) (Pt Warm) -Tenderness on Palpation (Cydney-wound No No Skin Appearance) -Ulcer Cleansing Soap and Water Soap and Water Rinsed/ Irrigated with Saline -Foul Odor after Cleansing No Yes No -Anesthetic Used 4% Lidocaine 4% Lidocaine 4% Lidocaine Solution Solution Solution WC - Nurse 2 - General Ulcer CM Notes Start: 01/17/21 13:34 Freq: Status: Active Protocol: Activity Type Activity Date Activity User E-Sign Co-Sign Detail Recorded Client Recorded Date Recorded By Document 01/17/21 13:53 JF [id number] 01/17/21 13:58 JF Document 01/24/21 14:35 MW [id number] 01/24/21 14:37 MW Document 01/31/21 13:52 MW [id number] 01/31/21 14:05 MW Edit Result 01/31/21 13:52 MW (1) [id number] 01/31/21 14:08 MW Edit Result 01/31/21 13:52 MW (2) [id number] 01/31/21 14:09 MW (1) # 3 LEFT HIP - Time => 14:07 - Correct Patient => Yes - Correct Side, Site, Position => Yes - Correct Procedure => Yes - Procedure Performed => Yes - Type of Procedure => Debridement - Clinical Debridement => Subcutaneous - Tissue Removed => Subcutaneous - Post Debridement (cm) - Length => 5.0 - Post Debridement (cm) - Width => 4.5 - Post Debridement (cm) - Depth => 0.1 - Total Square (Post) (cm) => 22.50 - Area of Debridement (cm) - Length => 5.0 - Area of Debridement (cm) - Width => 4.5 - Total Square (Area) (cm) => 22.50 - Tunneling => No - Undermining/Tunneling => No - Circular Undermining => No - Ulcer Cleansing => Rinsed/Irrigated => with Saline - Foul Odor after Cleansing => No - Bioengineered Tissue => No - Bleeding Controlled with => Pressure - Debridement - Subq, 1st 20sq cm => No (2) #2- R HIP - Debridement, SubQ, ea addt'l 20sq cm => 1 or part thereof 01/17/21 01/24/21 01/31/21 13:53 14:35 13:52 Wound Center Nurse 2 # 3 LEFT HIP -Time 14:07 -Correct Patient Yes -Correct Side, Site, Position Yes -Correct Procedure Yes -Procedure Performed Yes -Type of Procedure Debridement -Clinical Debridement Subcutaneous -Tissue Removed Subcutaneous -Post Debridement (cm) - Length 5.0 -Post Debridement (cm) - Width 4.5 -Post Debridement (cm) - Depth 0.1 -Total Square (Post) (cm) 22.50 -Area of Debridement (cm) - Length 5.0 -Area of Debridement (cm) - Width 4.5 -Total Square (Area) (cm) 22.50 -Tunneling No -Undermining/Tunneling No -Circular Undermining No -Ulcer Cleansing Rinsed/ Irrigated with Saline -Foul Odor after Cleansing No -Bioengineered Tissue No -Bleeding Controlled with Pressure -Debridement - Subq, 1st 20sq cm No #2- R HIP -Time 13:56 14:36 13:53 -Correct Patient Yes Yes Yes -Correct Side, Site, Position Yes Yes Yes -Correct Procedure Yes Yes Yes -Procedure Performed Yes Yes Yes -Type of Procedure Debridement Debridement Debridement -Clinical Debridement Subcutaneous Subcutaneous Subcutaneous -Tissue Removed Subcutaneous Subcutaneous Subcutaneous -Post Debridement (cm) - Length 5 4.9 3.7 -Post Debridement (cm) - Width 3.7 3.5 3.0 -Post Debridement (cm) - Depth 0.1 0.2 0.1 -Total Square (Post) (cm) 18.5 17.15 11.10 -Area of Debridement (cm) - Length 5 4.9 3.7 -Area of Debridement (cm) - Width 3.7 3.5 3.0 -Total Square (Area) (cm) 18.5 17.15 11.10 -Tunneling No No No -Undermining/Tunneling No No No -Circular Undermining No No No -Wound/Ulcer Outcome Not Healed Not Healed -Ulcer Cleansing Rinsed/ Rinsed/ Rinsed/ Irrigated with Irrigated with Irrigated with Saline Saline Saline -Foul Odor after Cleansing No No No -Bioengineered Tissue No No No -Bleeding Controlled with Pressure Pressure Pressure -Offloading No No No -Treatment Response Procedure Procedure Procedure Tolerated Well Tolerated Well Tolerated Well -Debridement - Subq, 1st 20sq cm No Yes Yes -Debridement, SubQ, ea addt'l 20sq cm 1 or part thereof #1 Sacral -Time 13:53 14:36 13:53 -Correct Patient Yes Yes Yes -Correct Side, Site, Position Yes Yes Yes -Correct Procedure Yes Yes Yes -Procedure Performed Yes Yes Yes -Type of Procedure Debridement Debridement Debridement -Clinical Debridement Subcutaneous Subcutaneous Subcutaneous -Tissue Removed Subcutaneous Subcutaneous Subcutaneous -Post Debridement (cm) - Length 2.2 2.1 2.1 -Post Debridement (cm) - Width 2.1 2.0 1.9 -Post Debridement (cm) - Depth 0.6 0.5 0.5 -Total Square (Post) (cm) 4.62 4.20 3.99 -Area of Debridement (cm) - Length 2.2 2.1 2.1 -Area of Debridement (cm) - Width 2.1 2.0 1.9 -Total Square (Area) (cm) 4.62 4.20 3.99 -Tunneling No No No -Undermining/Tunneling Yes No Yes -Undermining/Tunneling Starts (O'clock 1 1 ) -Undermining/Tunneling Ends (O'clock) 3 3 -Maximum Distance (cm) 0.9 0.3 -Circular Undermining No No No -Wound/Ulcer Outcome Not Healed Not Healed -Ulcer Cleansing Rinsed/ Rinsed/ Rinsed/ Irrigated with Irrigated with Irrigated with Saline Saline Saline -Foul Odor after Cleansing No No No -Bioengineered Tissue No No No -Bleeding Controlled with Pressure Pressure Pressure -Offloading No No No -Treatment Response Procedure Procedure Procedure Tolerated Well Tolerated Well Tolerated Well -Debridement - Subq, 1st 20sq cm Yes No No -Debridement, SubQ, ea addt'l 20sq cm 1 or part thereof Pain Scale: 0-10 Numeric Is Patient Pain Free? Yes Yes Yes WC - Nurse 3 - General Ulcer D/C NN Start: 01/17/21 13:34 Freq: Status: Active Protocol: Activity Type Activity Date Activity User E-Sign Co-Sign Detail Recorded Client Recorded Date Recorded By Document 01/17/21 14:07 DL [id number] 01/17/21 14:10 DL Document 01/17/21 14:28 DL [id number] 01/17/21 14:31 DL Edit Result 01/17/21 14:28 DL (1) [id number] 01/17/21 15:42 PL Document 01/24/21 15:38 JF [id number] 01/24/21 15:39 JF Document 01/31/21 14:36 JF [id number] 01/31/21 14:37 JF (1) #1 Sacral - NPWT Application Charge NPWT </= 50 sq cm => NPWT & Debridement ($) => (nc) 01/17/21 01/17/21 01/24/21 14:07 14:28 15:38 Wound Care Nurse 3 # 3 LEFT HIP -Ulcer Cleansing -Foul Odor after Cleansing -Primary Dressing Applied -Primary Dressing Covered/Secured with #2- R HIP -Ulcer Cleansing Rinsed/ Rinsed/ Rinsed/ Irrigated with Irrigated with Irrigated with Saline Saline Saline -Foul Odor after Cleansing No No No -Primary Dressing Applied NonAdherent Mepilex Border Enzymatic, Contact Layer NonAdherent Contact Layer -Other Dressing santyl santyl -Primary Dressing Covered/Secured with Dry Gauze, Secured with Tape -Mepilex Border 1 #1 Sacral -Ulcer Cleansing Rinsed/ Wound Cleanser Wound Cleanser Irrigated with Saline -Foul Odor after Cleansing No No No -Negative Pressure Wound Therapy Continue Continue Continue -Setting (mmHg) 150 150 150 -Negative Pressure is Continuous Continuous Continuous -NPWT Application Charge NPWT </= 50 sq NPWT & NPWT & cm ($) Debridement (nc Debridement (nc ) ) Treatment Response Procedure Procedure Tolerated Well Tolerated Well Pain Scale: 0-10 Numeric Is Patient Pain Free? Yes Yes WC - Visit Discharge Discharge Condition Stable Stable Stable Ambulatory Status Wheelchair Wheelchair Wheelchair Transportation Private Auto Private Auto Accompanied by family Medication Reconcilliation completed & Yes Yes provided to patient/care provider Clinical Summary of Care Provided Yes Facility Type Home Health Home Health Orders Sent Yes Yes 01/31/21 14:36 Wound Care Nurse 3 # 3 LEFT HIP -Ulcer Cleansing Rinsed/ Irrigated with Saline -Foul Odor after Cleansing No -Primary Dressing Applied Enzymatic, NonAdherent Contact Layer -Primary Dressing Covered/Secured with Dry Gauze, Secured with Tape #2- R HIP -Ulcer Cleansing Rinsed/ Irrigated with Saline -Foul Odor after Cleansing No -Primary Dressing Applied Enzymatic, NonAdherent Contact Layer -Other Dressing -Primary Dressing Covered/Secured with Dry Gauze, Secured with Tape -Mepilex Border #1 Sacral -Ulcer Cleansing Rinsed/ Irrigated with Saline -Foul Odor after Cleansing No -Negative Pressure Wound Therapy Continue -Setting (mmHg) 150 -Negative Pressure is Continuous -NPWT Application Charge NPWT & Debridement (nc ) Treatment Response Pain Scale: 0-10 Numeric Is Patient Pain Free? Yes WC - Visit Discharge Discharge Condition Stable Ambulatory Status Wheelchair Transportation Private Auto Accompanied by sister in law Medication Reconcilliation completed & Yes provided to patient/care provider Clinical Summary of Care Provided Yes Facility Type Orders Sent Additional Wound Wound debrided: Unstageable pressure injury to right and left hip Type of Debridement: Excisional debridement Anesthesia Used: 5% Lidocaine Gel Depth: in the subcutaneous layer Percentage of wound debrided: 100 Instrument Used: 3mm curette, 5mm curette and #11 blade Tissue Removed: Slough, devitalized tissue, eschar Severity: Fat Layer Exposed Amount of bleeding with debridement: Mild Bleeding Controlled with: Pressure Patient tolerated procedure: Patient tolerated procedure well Assessment/Plan Assessment/Plan (1) Sacral decubitus ulcer: CODE(S): L89.159 - Pressure ulcer of sacral region, unspecified stage QUALIFIERS: Pressure injury stage: stage 4 Qualified Code(s): L89.154 - Pressure ulcer of sacral region, stage 4 (2) Multiple sclerosis: CODE(S): G35 - Multiple sclerosis (3) Debility: CODE(S): R53.81 - Other malaise (4) Pressure injury of right hip, stage 2: CODE(S): L89.212 - Pressure ulcer of right hip, stage 2 (5) Pressure injury of left hip, unstageable: CODE(S): L89.220 - Pressure ulcer of left hip, unstageable PLAN: Debridement done as documented above, procedure was well-tolerated. Repeat cultures of the sacral pressure injury today given the delayed wound healing. X-ray ordered of the sacrum previously which was negative for osteomyelitis. X-ray was ordered today to the right hip given the large amount of eschar, Santyl daily covered with moistened gauze to the unstageable right/left pressure injury to the hip and will do the wound VAC at 150 mmHg with black foam change 3 times a week to the stage IV sacral pressure injury. Offloading recommended, a Roho cushion was ordered as patient is wheelchair- bound. We will also start the process of ordering an offloading low air loss [facility] bed at this time. Patient is currently utilizing a air loss m attress that she ordered online. She states that she will change positions as often as possible, however admits to sitting in her chair in 1 position for most of the day. I discussed group home with the patient and she declines at this time. Increased protein intake, vitamin C and Zinc also recommended. Labs ordered,pending results. Her questions were answered and she was advised to call with any further questions or concerns. Follow-up in 1 week with myself. This note was generated with [employer] dictation software. It may contain incorrect words, spelling, and punctuation that were not noted in checking the note before signing.
--- NOTE | 2021-02-06 08:54 | WC ---
Anaerobic wound culture reviewed per Mario Sibley sent to Windy Perez per Mario. Patient notified and voiced understanding.
== END 2021-02-12 23:59 ==
LOC: WC 13:30
PROVIDERS: PCP Family Medicine; Referring Provider Internal Medicine; Visit Provider Nurse Practitioner Family
DX: L89.154 Pressure ulcer of sacral region, stage 4 (principal); L89.212 Pressure ulcer of right hip, stage 2; L89.220 Pressure ulcer of left hip, unstageable; G35 Multiple sclerosis; Z99.3 Dependence on wheelchair; R53.81 Other malaise
CPT/HCPCS: 11042; 11045; 87070; 87075; 87077; 87186; 87205; 97605

== ENCOUNTER → 2021-02-08 09:48 | Outpatient (CLI) | payer OTHER, SELFPAY ==
[2018-02-01 11:47] VITALS: BMI 15.0
--- NOTE | 2021-02-08 09:52 | RAD_ITS ---
STUDY: X-RAY - PELVIS AND RIGHT HIP REASON FOR EXAM: Female, 55 years old. Limited range of motion. TECHNIQUE: 3 views of the pelvis and hip. COMPARISON: None. FINDINGS: There is a non-specific bowel gas pattern. Normal visualized soft tissue structures. Osteopenia. Normal bilateral iliac wings, sacroiliac joints and visualized sacrum. Normal bilateral superior and inferior pubic rami. Normal pubic symphysis. Normal bilateral ischial tuberosities. Mild arthrosis of both hips. RAD/HIP, UNI W/ Pelvis 2-3 Views IMPRESSION: Osteopenia with mild arthrosis of both hips. No acute abnormality. Electronically Signed: Reece Piña MD at 10:50 EST , Service support ,
== END ==
PROVIDERS: PCP Family Medicine; Referring Provider Nurse Practitioner Family; Visit Provider Nurse Practitioner Family
DX: L89.210 Pressure ulcer of right hip, unstageable (principal)
CPT/HCPCS: 73502

== ENCOUNTER → 2021-03-02 11:24 | Outpatient (CLI) | payer OTHER, SELFPAY ==
[2018-02-01 11:47] VITALS: BMI 15.0
--- NOTE | 2021-03-02 11:27 | RAD_ITS ---
STUDY: X-RAY - PELVIS AND LEFT HIP REASON FOR EXAM: Female, 55 years old. ULCER TECHNIQUE: 3 views of the pelvis and hip. COMPARISON: None. FINDINGS: Examination is technically suboptimal due to external tubing related to Pandey catheter being placed on top of the patient exactly over the area of concern. The tubing obscures bilateral femoral heads. Diagnostic accuracy is significantly reduced. The hips are located and there are no fractures. The sacrum and iliac bones are obscured by large amount of stool. There is no intestinal obstruction. There is a lucent defect in the left trochanteric soft tissue, possibly gas related to stated ulcer. There is no destructive osteomyelitis. However, x-rays have low accuracy and delayed diagnosis of osteomyelitis. RAD/HIP, UNI W/ Pelvis 2-3 Views IMPRESSION: 1. Limited examination due to above factors. 2. Probable left trochanteric soft tissue ulcer. 3. Consider bone specific imaging for detection of osteomyelitis which can include CT or MR or bone scan to overcome limitations of plain films. 4. Severe constipation. Electronically Signed: Wanda Valdez MD at 12:09 EST Tel , Service support ,
== END ==
PROVIDERS: PCP Family Medicine; Referring Provider Nurse Practitioner Family; Visit Provider Nurse Practitioner Family
DX: L89.223 Pressure ulcer of left hip, stage 3 (principal)
CPT/HCPCS: 73502

== ENCOUNTER 2021-03-14 13:30 | Outpatient (RCR) | payer OTHER, SELFPAY ==
[2018-02-01 11:47] VITALS: BMI 15.0
[2021-02-13 00:33] VITALS: BP 102/76; PULSE 76; RESP 16; TEMP 36.1
[2021-02-14 13:41] VITALS: BP 105/87; PULSE 82; RESP 16; TEMP 36.1
--- NOTE | 2021-02-14 16:38 | PN.PCM_ITS ---
History of Present Illness Date of Service: 02/14/21 Chief Complaint: Nonhealing sacral ulcer History of Wound: Ms. Byrnes is a 55-year-old who presents to the wound center due to nonhealing sacral ulcer. History of multiple sclerosis and has been wheelchair-bound for about 16 years. Ulcer noted about a month ago. Has been applying Adaptic and Aquacel to ulcer without any significant improvement. Was seen recently at the emergency room due to concerns by home health nurse for worsening ulcer. Started on antibiotics but she has noted no significant improvement. Foul smell. No significant drainage reported. Denies chills, fever or otherwise feeling of unwell. Progress of Wound: Patient sacral ulcer is improving in size and she is tolerating the antibiotics well as she recently grew anaerobic bacteria and E. coli. She still admits to not offloading properly to her bilateral hips and remaining in her chair for the majority of the day. She is utilizing a Roho cushion. Her hip pressure ulcers have deteriorated and her right hip pressure i njury is now opened up and is a stage IV down into the muscle fascia left hip continues to be unstageable with large amount of eschar. Imaging was reviewed from the right hip and was within normal limits Objective Data Objective Data Vital Signs: Vital Signs Temp Pulse Resp BP 96.9 F L 82 16 105/87 H 02/14/21 13:41 02/14/21 13:41 02/14/21 13:41 02/14/21 13:41 Charges/Coding Procedures Integumentary 111xxx-113xx: [id number] Natalia musc/fascia 20 sq cm/< Physical Exam Const alert, oriented x3 and no apparent distress General Appearance: cooperative and comfortable HEENT normocephalic and head/scalp atraumatic Head and Scalp: normal to inspection, normocephalic and atraumatic Eyes EOMs intact bilaterally Neck full ROM General: normal visual inspection Resp normal respiratory effort Effort and Inspection: able to speak in complete sentences Extremity normal to inspection Skin Wound Narrative: Stage IV pressure injury to sacrum with less slough this week, no signs of obvious infection at this time, stage IV pressure injury to right hip with adherent slough, eschar, no signs of obvious infection at this time, unstageable pressure injury to left hip with adherent slough, eschar no signs of obvious infection Neuro oriented x3, CN's II-XII intact bilaterally and moves all extremities Psych mental status grossly normal Appearance: grossly normal Attitude: calm Speech: normal speech Debridement Note Debridement Note Wound debrided: Stage IV pressure injury to right hip Laterality: Right Type of Debridement: Excisional debridement Anesthesia Used: 5% Lidocaine Gel Depth: to muscle Percentage of wound debrided: 100 Instrument Used: 5mm curette Tissue Removed: Slough devitalized tissue Severity: Necrosis of Muscle Amount of bleeding with debridement: Mild Bleeding Controlled with: Pressure Patient tolerated procedure: Patient tolerated procedure well Post-Debridement Measurements and Additional Note: Post-Debridement Measure ments/Treatment WC - Nurse 1 - General Ulcer Assessment Start: 02/14/21 13:41 Freq: Status: Active Protocol: ASHLEY Activity Type Activity Date Activity User E-Sign Co-Sign Detail Recorded Client Recorded Date Recorded By Document 02/14/21 13:41 ML [id number] 02/14/21 13:50 ML 02/14/21 13:41 WC - Today's Visit Information Type of service Follow-up Visit (Physician/FINANCE ASSOCIATE ) Arrival Mode Wheelchair Transfer Assistance Manual Patient Identification Verified (Name & Yes ) Patient Requires Transmission-Based No Precautions Safety Precautions NA Vital Signs Temperature (97.8 F-99.1 F) 96.9 F L Temperature Source Temporal Pulse Rate (60-100) 82 Pulse Location Monitor Respiratory Rate (12-18) 16 Respiratory rate source Observation Blood Pressure (90/60-120/80) 105/87 H Blood Pressure Mean (mm Hg) 93 Source Monitor Position Sitting Blood Pressure Location Left Arm History Since Last Visit- (Skip if this is Patient's initial visit) Have you changed medications since your No last visit? Any new allergies or adverse reactions No Had a fall/change in ADL's that may No increase risk of falls Signs or symptoms of abuse and/or No neglect since last visit Have you been in the hospital since your No last visit? Has dressing in place as prescribed Yes Has compression in place as prescribed N/A Has offloadiing in place as prescribed N/A Experienced any changes in pain level or No management Left Footwear Regular Shoe Right Footwear Regular Shoe REA - Nurse 1 - General Ulcer Measurement Start: 02/14/21 13:41 Freq: Status: Active Protocol: Activity Type Activity Date Activity User E-Sign Co-Sign Detail Recorded Client Recorded Date Recorded By Document 02/14/21 13:41 ML [id number] 02/14/21 13:50 ML 02/14/21 13:41 Wound Center Nurse 1 # 3 LEFT HIP -Current Size (cm) - Length 3 -Current Size (cm) - Width 3.1 -Current Size (cm) - Depth 0.1 -Total Square Cm 9.3 -Exudate Amt Large -Exudate Type Serosanguineous -Wound Margin Distinct, Outline Attached -Granulation Amt Medium (34-66%) -Slough/Fibrin Yes -Necrosis Amt Medium (34-66%) -Necrotic Tissue Type Eschar -Texture (Cydney-wound Skin Appearance) Assessed -Moisture (Cydney-wound Skin Appearance) Assessed -Color (Cydney-wound Skin Appearance) Assessed -Temperature (Cydney-wound Skin No Abnormality Appearance) (Pt Warm) -Tenderness on Palpation (Cydney-wound No Skin Appearance) -Ulcer Cleansing Rinsed/ Irrigated with Saline -Foul Odor after Cleansing No -Anesthetic Used 5% Lidocaine Gel #2- R HIP -Current Size (cm) - Length 3 -Current Size (cm) - Width 3.5 -Current Size (cm) - Depth 0.3 -Total Square Cm 10.5 -Undermining/Tunneling Yes -Undermining/Tunneling Starts (O'clock 12 ) -Undermining/Tunneling Ends (O'clock) 1 -Maximum Distance (cm) 0.9 -Exudate Amt Medium -Exudate Type Serosanguineous -Wound Margin Distinct, Outline Attached -Granulation Amt Medium (34-66%) -Slough/Fibrin Yes -Necrotic Tissue Type Adherent Slough -Texture (Cydney-wound Skin Appearance) Assessed -Moisture (Cdyney-wound Skin Appearance) Assessed -Color (Cydney-wound Skin Appearance) Assessed -Temperature (Cydney-wound Skin No Abnormality Appearance) (Pt Warm) -Tenderness on Palpation (Cydney-wound No Skin Appearance) -Ulcer Cleansing Rinsed/ Irrigated with Saline -Foul Odor after Cleansing No -Anesthetic Used 5% Lidocaine Gel #1 Sacral -Current Size (cm) - Length 1.5 -Current Size (cm) - Width 1.7 -Current Size (cm) - Depth 0.2 -Total Square Cm 2.55 -Exudate Amt Medium -Exudate Type Serosanguineous -Wound Margin Distinct, Outline Attached -Granulation Amt Medium (34-66%) -Slough/Fibrin Yes -Necrosis Amt Medium (34-66%) -Necrotic Tissue Type Adherent Slough -Texture (Cydney-wound Skin Appearance) Assessed -Moisture (Cydney-wound Skin Appearance) Assessed -Color (Cydney-wound Skin Appearance) Assessed -Temperature (Cydney-wound Skin No Abnormality Appearance) (Pt Warm) -Tenderness on Palpation (Cydney-wound Yes Skin Appearance) -Ulcer Cleansing Rinsed/ Irrigated with Saline -Foul Odor after Cleansing No -Anesthetic Used 5% Lidocaine Gel WC - Nurse 2 - General Ulcer CM Notes Start: 02/14/21 13:41 Freq: Status: Active Protocol: Activity Type Activity Date Activity User E-Sign Co-Sign Detail Recorded Client Recorded Date Recorded By Document 02/14/21 14:05 MW [id number] 02/14/21 14:18 MW 02/14/21 14:05 Wound Center Nurse 2 # 3 LEFT HIP -Time 14:07 -Correct Patient Yes -Correct Side, Site, Position Yes -Correct Procedure Yes -Procedure Performed Yes -Type of Procedure Debridement -Clinical Debridement Subcutaneous -Tissue Removed Subcutaneous -Post Debridement (cm) - Length 5.0 -Post Debridement (cm) - Width 4.0 -Post Debridement (cm) - Depth 0.1 -Total Square (Post) (cm) 20.00 -Area of Debridement (cm) - Length 5.0 -Area of Debridement (cm) - Width 4.0 -Total Square (Area) (cm) 20.00 -Tunneling No -Undermining/Tunneling No -Circular Undermining No -Wound/Ulcer Outcome Not Healed -Ulcer Cleansing Rinsed/ Irrigated with Saline -Foul Odor after Cleansing No -Bioengineered Tissue No -Bleeding Controlled with Pressure -Offloading No -Treatment Response Procedure Tolerated Well -Debridement - Subq, 1st 20sq cm Yes -Debridement, SubQ, ea addt'l 20sq cm 1 or part thereof #2- R HIP -Time 14:08 -Correct Patient Yes -Correct Side, Site, Position Yes -Correct Procedure Yes -Procedure Performed Yes -Type of Procedure Debridement -Clinical Debridement Muscle / Fascia -Tissue Removed Muscle,Fascia -Post Debridement (cm) - Length 3.5 -Post Debridement (cm) - Width 4.5 -Post Debridement (cm) - Depth 2.0 -Total Square (Post) (cm) 15.75 -Area of Debridement (cm) - Length 3.5 -Area of Debridement (cm) - Width 4.5 -Total Square (Area) (cm) 15.75 -Tunneling No -Undermining/Tunneling Yes -Undermining/Tunneling Starts (O'clock 12 ) -Undermining/Tunneling Ends (O'clock) 6 -Maximum Distance (cm) 1.0 -Circular Undermining No -Wound/Ulcer Outcome Not Healed -Ulcer Cleansing Rinsed/ Irrigated with Saline -Foul Odor after Cleansing No -Bioengineered Tissue No -Bleeding Controlled with Pressure -Offloading No -Treatment Response Procedure Tolerated Well -Debridement - Muscle / Fascia, 1st Yes 20sq cm #1 Sacral -Time 14:08 -Correct Patient Yes -Correct Side, Site, Position Yes -Correct Procedure Yes -Procedure Performed Yes -Type of Procedure Debridement -Clinical Debridement Subcutaneous -Tissue Removed Subcutaneous -Post Debridement (cm) - Length 2.0 -Post Debridement (cm) - Width 0.5 -Post Debridement (cm) - Depth 0.2 -Total Square (Post) (cm) 1.00 -Area of Debridement (cm) - Length 2.0 -Area of Debridement (cm) - Width 0.5 -Total Square (Area) (cm) 1.00 -Tunneling No -Undermining/Tunneling No -Circular Undermining No -Wound/Ulcer Outcome Not Healed -Ulcer Cleansing Rinsed/ Irrigated with Saline -Foul Odor after Cleansing No -Bioengineered Tissue No -Bleeding Controlled with Pressure -Offloading No -Treatment Response Procedure Tolerated Well -Debridement - Subq, 1st 20sq cm No Pain Scale: 0-10 Numeric Is Patient Pain Free? Yes WC - Nurse 3 - General Ulcer D/C NN Start: 02/14/21 13:41 Freq: Status: Active Protocol: Activity Type Activity Date Activity User E-Sign Co-Sign Detail Recorded Client Recorded Date Recorded By Document 02/14/21 14:51 ML [id number] 02/14/21 14:53 ML 02/14/21 14:51 Wound Care Nurse 3 # 3 LEFT HIP -Ulcer Cleansing Rinsed/ Irrigated with Saline -Foul Odor after Cleansing No -Other Dressing santyl,adaptic, foam dressing #2- R HIP -Ulcer Cleansing Rinsed/ Irrigated with Saline -Foul Odor after Cleansing No -Primary Dressing Applied Silvercel -Other Dressing foam dressing -Silvercel 1 #1 Sacral -Ulcer Cleansing Rinsed/ Irrigated with Saline -Foul Odor after Cleansing No -Primary Dressing Applied Silvercel -Other Dressing foam dressing -Silvercel 0 WC - Visit Discharge Discharge Condition Stable Ambulatory Status Wheelchair Transportation Private Auto Medication Reconcilliation completed & No provided to patient/care provider Clinical Summary of Care Provided Yes Additional Wound Wound debrided: Stage IV pressure injury to sacrum and unstageable pressure injury left hip Type of Debridement: Excisional debridement Anesthesia Used: 4% Lidocaine Solution Depth: in the subcutaneous layer Percentage of wound debrided: 100 Instrument Used: 3mm curette Tissue Removed: Slough and devitalized tissue Severity: Fat Layer Exposed Amount of bleeding with debridement: Mild Bleeding Controlled with: Pressure Patient tolerated procedure: Patient tolerated procedure well Assessment/Plan Assessment/Plan (1) Sacral decubitus ulcer: CODE(S): L89.159 - Pressure ulcer of sacral region, unspecified stage QUALIFIERS: Pressure injury stage: stage 4 Qualified Code(s): L89.154 - Pressure ulcer of sacral region, stage 4 (2) Multiple sclerosis: CODE(S): G35 - Multiple sclerosis (3) Debility: CODE(S): R53.81 - Other malaise (4) Pressure injury of left hip, unstageable: CODE(S): L89.220 - Pressure ulcer of left hip, unstageable (5) Pressure injury of right hip, stage 4: CODE(S): L89.214 - Pressure ulcer of right hip, stage 4 PLAN: Debridement done as documented above, procedure was well-tolerated. Repeat cultures of the sacral pressure injury done prior which showed E. coli and anaerobes and patient is tolerating her antibiotics well. X-ray ordered of the sacrum previously which was negative for osteomyelitis. X-ray was ordered of the right hip which was negative, Santyl daily covered with moistened gauze to the unstageable rleft pressure injury to the hip and will do silver cell to the stage IV pressure injury to the right hip and stage IV sacral pressure injury. Offloading recommended, a Roho cushion was ordered as patient is wheelchair-bound. We will also start the process of ordering an offloading low air loss mattress hospital bed at this time. Patient is currently utilizing a air loss mattress that she ordered online. She states that she will change positions as often as possible, however admits to sitting in her chair in 1 position for most of the day. I discussed custodial with the patient and she continues to decline at this time. Increased protein intake, vitamin C and Zinc also recommended. Labs ordered,pending results. Her questions were answered and she was advised to call with any further questions or concerns. Follow-up in 1 week with myself. This note was generated with [employer] dictation software. It may contain incorrect words, spelling, and punctuation that were not noted in checking the note before signing.
[2021-02-21 13:52] VITALS: BP 96/64; PULSE 73; RESP 16; TEMP 36.2
--- NOTE | 2021-02-21 22:18 | PCM.WC.PN ---
History of Present Illness Date of Service: 02/21/21 Chief Complaint: Nonhealing sacral ulcer History of Wound: Ms. Byrnes is a 55-year-old who presents to the wound center due to nonhealing sacral ulcer. History of multiple sclerosis and has been wheelchair-bound for about 16 years. Ulcer noted about a month ago. Has been applying Adaptic and Aquacel to ulcer without any significant improvement. Was seen recently at the emergency room due to concerns by home health nurse for worsening ulcer. Started on antibiotics but she has noted no significant improvement. Foul smell. No significant drainage reported. Denies chills, fever or otherwise feeling of unwell. Progress of Wound: Patient sacral ulcer is improving in size and she completed the antibiotics for her anaerobic bacteria and E. coli. She still admits to not offloading properly to her bilateral hips and remaining in her chair for the majority of the day. These wounds have been continuously deteriorating. Patient is not open to retirement care or home health referral. She is utilizing a Roho cushion. Her hip pressure ulcers have deteriorated and her right hip pressure injury is now opened up and is a stage IV down into the muscle fascia left hip continues to be unstageable with large amount of eschar. Imaging was reviewed from the right hip and was within normal limits Objective Data Objective Data Vital Signs: Vital Signs Temp Pulse Resp BP 97.1 F L 73 16 96/64 02/21/21 13:52 02/21/21 13:52 02/21/21 13:52 02/21/21 13:52 Oxygen Delivery Method Room Air Charges/Coding Procedures Integumentary 111xxx-113xx: 04124 Natalia musc/fascia 20 sq cm/< Physical Exam Const alert, oriented x3 and no apparent distress General Appearance: cooperative and comfortable HEENT normocephalic and head/scalp atraumatic Head and Scalp: normal to inspection, normocephalic and atraumatic Eyes EOMs intact bilaterally Neck full ROM General: normal visual inspection Resp normal respiratory effort Effort and Inspection: able to speak in complete sentences Extremity normal to inspection Skin Wound Narrative: Stage IV pressure injury to sacrum with less slough this week, no signs of obvious infection at this time, stage IV pressure injury to right hip with adherent slough, and muscle fascia exposed, no signs of obvious infection at this time, unstageable pressure injury to left hip with adherent slough, eschar no signs of obvious infection Neuro oriented x3, CN's II-XII intact bilaterally and moves all extremities Psych mental status grossly normal Appearance: grossly normal Attitude: calm Speech: normal speech Debridement Note Debridement Note Wound debrided: Stage IV pressure injury sacrum, unstageable left hip Type of Debridement: Excisional debridement Anesthesia Used: 5% Lidocaine Gel Depth: in the subcutaneous layer Percentage of wound debrided: 100 Instrument Used: 3mm curette and 5mm curette Tissue Removed: Slough and devitalized tissue Severity: Fat Layer Exposed Amount of bleeding with debridement: Mild Bleeding Controlled with: Pressure Patient tolerated procedure: Patient tolerated procedure well Post-Debridement Measurements and Additional Note: Post-Debridement Measurements/Treatment - Nurse 1 - General Ulcer Assessment Start: 02/14/21 13:41 Freq: Status: Active Protocol: ASHLEY Activity Type Activity Date Activity User E-Sign Co-Sign Detail Recorded Client Recorded Date Recorded By Document 02/14/21 13:41 ML [id number] 02/14/21 13:50 ML Document 02/21/21 13:52 BMF [id number] 02/21/21 14:02 BMF 02/14/21 02/21/21 13:41 13:52 - Today's Visit Information Type of service Follow-up Visit Follow-up Visit (Physician/PRODUCT MARKETING ENGINEER (Physician/PRODUCT MARKETING ENGINEER ) ) Arrival Mode Wheelchair Wheelchair Transfer Assistance Manual Manual Transfer Assist (Other) 2 MANUAL Accompanied by SISTER IN LAW Patient Identification Verified (Name & Yes Yes ) Patient Requires Transmission-Based No No Precautions Safety Precautions NA Vital Signs Temperature (97.8 F-99.1 F) 96.9 F L 97.1 F L Temperature Source Temporal Temporal Pulse Rate (60-100) 82 73 Pulse Location Monitor Monitor Respiratory Rate (12-18) 16 16 Respiratory rate source Observation Observation Oxygen Delivery Method Room Air Blood Pressure (90/60-120/80) 105/87 H 96/64 Blood Pressure Mean (mm Hg) 93 74 Source Monitor Monitor Position Sitting Sitting Blood Pressure Location Left Arm Right Arm History Since Last Visit- (Skip if this is Patient's initial visit) Have you changed medications since your No No last visit? Any new allergies or adverse reactions No No Had a fall/change in ADL's that may No No increase risk of falls Signs or symptoms of abuse and/or No No neglect since last visit Have you been in the hospital since your No No last visit? Has dressing in place as prescribed Yes Yes Has compression in place as prescribed N/A N/A Has offloadiing in place as prescribed N/A N/A Experienced any changes in pain level or No No management Left Footwear Regular Shoe Slipper Right Footwear Regular Shoe Slipper Pain Scale: 0-10 Numeric Is Patient Pain Free? Yes WC - Nurse 1 - General Ulcer Measurement Start: 02/14/21 13:41 Freq: Status: Active Protocol: Activity Type Activity Date Activity User E-Sign Co-Sign Detail Recorded Client Recorded Date Recorded By Document 02/14/21 13:41 ML [id number] 02/14/21 13:50 ML Document 02/21/21 13:52 BM [id number] 02/21/21 14:02 BMF 02/14/21 02/21/21 13:41 13:52 Wound Center Nurse 1 # 3 LEFT HIP -Combined with other wound No -Current Size (cm) - Length 3 3.5 -Current Size (cm) - Width 3.1 3.6 -Current Size (cm) - Depth 0.1 0.1 -Total Square Cm 9.3 12.60 -Photo Taken No -Epithelialization None Present -Tunneling No -Undermining/Tunneling No -Circular Undermining No -Exudate Amt Large Medium -Exudate Type Serosanguineous Serosanguineous -Wound Margin Distinct, Distinct, Outline Outline Attached Attached -Granulation Amt Medium (34-66%) None Present (0 %) -Slough/Fibrin Yes Yes -Necrosis Amt Medium (34-66%) Large (67-100%) -Necrotic Tissue Type Eschar Eschar -Texture (Cydney-wound Skin Appearance) Assessed Assessed, Localized Edema ,Scarring -Moisture (Cydney-wound Skin Appearance) Assessed Assessed -Color (Cydney-wound Skin Appearance) Assessed Assessed, Erythema -Temperature (Cydney-wound Skin No Abnormality No Abnormality Appearance) (Pt Warm) (Pt Warm) -Tenderness on Palpation (Cydney-wound No No Skin Appearance) -Ulcer Cleansing Rinsed/ Rinsed/ Irrigated with Irrigated with Saline Saline -Foul Odor after Cleansing No No -Anesthetic Used 5% Lidocaine 4% Lidocaine Gel Solution #2- R HIP -Combined with other wound No -Current Size (cm) - Length 3 3.6 -Current Size (cm) - Width 3.5 2.8 -Current Size (cm) - Depth 0.3 1 -Total Square Cm 10.5 10.08 -Photo Taken No -Epithelialization None Present -Tunneling No -Undermining/Tunneling Yes Yes -Undermining/Tunneling Starts (O'clock 12 12 ) -Undermining/Tunneling Ends (O'clock) 1 12 -Maximum Distance (cm) 0.9 0.8 -Circular Undermining Yes -Exudate Amt Medium Large -Exudate Type Serosanguineous Serosanguineous -Wound Margin Distinct, Distinct, Outline Outline Attached Attached -Granulation Amt Medium (34-66%) None Present (0 %) -Slough/Fibrin Yes Yes -Necrosis Amt Large (67-100%) -Necrotic Tissue Type Adherent Slough Adherent Slough -Texture (Cydney-wound Skin Appearance) Assessed Assessed, Scarring -Moisture (Cydney-wound Skin Appearance) Assessed Assessed -Color (Cydney-wound Skin Appearance) Assessed Assessed, Erythema -Temperature (Cydney-wound Skin No Abnormality No Abnormality Appearance) (Pt Warm) (Pt Warm) -Tenderness on Palpation (Cydney-wound No No Skin Appearance) -Ulcer Cleansing Rinsed/ Rinsed/ Irrigated with Irrigated with Saline Saline -Foul Odor after Cleansing No No -Anesthetic Used 5% Lidocaine 4% Lidocaine Gel Solution #1 Sacral -Combined with other wound No -Current Size (cm) - Length 1.5 1.8 -Current Size (cm) - Width 1.7 1.7 -Current Size (cm) - Depth 0.2 0.1 -Total Square Cm 2.55 3.06 -Photo Taken No -Epithelialization Small 1-33% -Tunneling No -Undermining/Tunneling No -Circular Undermining No -Exudate Amt Medium Medium -Exudate Type Serosanguineous Serosanguineous -Wound Margin Distinct, Flat & Intact Outline Attached -Granulation Amt Medium (34-66%) Small (1-33%) -Granulation Quality [place] -Slough/Fibrin Yes Yes -Necrosis Amt Medium (34-66%) Large (67-100%) -Necrotic Tissue Type Adherent Slough Adherent Slough -Texture (Cydney-wound Skin Appearance) Assessed Assessed, Scarring -Moisture (Cydney-wound Skin Appearance) Assessed Assessed -Color (Cydney-wound Skin Appearance) Assessed Assessed -Temperature (Cydney-wound Skin No Abnormality No Abnormality Appearance) (Pt Warm) (Pt Warm) -Tenderness on Palpation (Cydney-wound Yes No Skin Appearance) -Ulcer Cleansing Rinsed/ Rinsed/ Irrigated with Irrigated with Saline Saline -Foul Odor after Cleansing No No -Anesthetic Used 5% Lidocaine 4% Lidocaine Gel Solution WC - Nurse 2 - General Ulcer CM Notes Start: 02/14/21 13:41 Freq: Status: Active Protocol: Activity Type Activity Date Activity User E-Sign Co-Sign Detail Recorded Client Recorded Date Recorded By Document 02/14/21 14:05 MW [id number] 02/14/21 14:18 MW Document 02/21/21 14:21 JF [id number] 02/21/21 14:29 JF 02/14/21 02/21/21 14:05 14:21 Wound Center Nurse 2 # 3 LEFT HIP -Time 14:07 14:22 -Correct Patient Yes Yes -Correct Side, Site, Position Yes Yes -Correct Procedure Yes Yes -Procedure Performed Yes Yes -Type of Procedure Debridement Debridement -Clinical Debridement Subcutaneous Subcutaneous -Tissue Removed Subcutaneous Subcutaneous -Post Debridement (cm) - Length 5.0 4.0 -Post Debridement (cm) - Width 4.0 4.5 -Post Debridement (cm) - Depth 0.1 0.1 -Total Square (Post) (cm) 20.00 18.00 -Area of Debridement (cm) - Length 5.0 4 -Area of Debridement (cm) - Width 4.0 4.5 -Total Square (Area) (cm) 20.00 18.0 -Tunneling No No -Undermining/Tunneling No No -Circular Undermining No No -Wound/Ulcer Outcome Not Healed Not Healed -Ulcer Cleansing Rinsed/ Rinsed/ Irrigated with Irrigated with Saline Saline -Foul Odor after Cleansing No No -Bioengineered Tissue No No -Bleeding Controlled with Pressure Pressure -Offloading No No -Treatment Response Procedure Procedure Tolerated Well Tolerated Well -Debridement - Subq, 1st 20sq cm Yes Yes -Debridement, SubQ, ea addt'l 20sq cm 1 or part thereof #2- R HIP -Time 14:08 14:22 -Correct Patient Yes Yes -Correct Side, Site, Position Yes Yes -Correct Procedure Yes Yes -Procedure Performed Yes Yes -Type of Procedure Debridement Debridement -Clinical Debridement Muscle / Fascia Muscle / Fascia -Tissue Removed Muscle,Fascia Muscle -Post Debridement (cm) - Length 3.5 4.0 -Post Debridement (cm) - Width 4.5 4.5 -Post Debridement (cm) - Depth 2.0 1.6 -Total Square (Post) (cm) 15.75 18.00 -Area of Debridement (cm) - Length 3.5 4.0 -Area of Debridement (cm) - Width 4.5 4.5 -Total Square (Area) (cm) 15.75 18.00 -Tunneling No No -Undermining/Tunneling Yes Yes -Undermining/Tunneling Starts (O'clock 12 1 ) -Undermining/Tunneling Ends (O'clock) 6 6 -Maximum Distance (cm) 1.0 1.5 -Circular Undermining No No -Wound/Ulcer Outcome Not Healed Not Healed -Ulcer Cleansing Rinsed/ Rinsed/ Irrigated with Irrigated with Saline Saline -Foul Odor after Cleansing No No -Bioengineered Tissue No No -Bleeding Controlled with Pressure Pressure -Offloading No No -Treatment Response Procedure Procedure Tolerated Well Tolerated Well -Debridement - Subq, 1st 20sq cm No -Debridement - Muscle / Fascia, 1st Yes Yes 20sq cm #1 Sacral -Time 14:08 14:23 -Correct Patient Yes Yes -Correct Side, Site, Position Yes Yes -Correct Procedure Yes Yes -Procedure Performed Yes Yes -Type of Procedure Debridement Debridement -Clinical Debridement Subcutaneous Subcutaneous -Tissue Removed Subcutaneous Subcutaneous -Post Debridement (cm) - Length 2.0 1.5 -Post Debridement (cm) - Width 0.5 1.5 -Post Debridement (cm) - Depth 0.2 0.3 -Total Square (Post) (cm) 1.00 2.25 -Area of Debridement (cm) - Length 2.0 1.5 -Area of Debridement (cm) - Width 0.5 1.5 -Total Square (Area) (cm) 1.00 2.25 -Tunneling No No -Undermining/Tunneling No No -Circular Undermining No No -Wound/Ulcer Outcome Not Healed Not Healed -Ulcer Cleansing Rinsed/ Rinsed/ Irrigated with Irrigated with Saline Saline -Foul Odor after Cleansing No No -Bioengineered Tissue No No -Bleeding Controlled with Pressure Pressure -Offloading No No -Treatment Response Procedure Procedure Tolerated Well Tolerated Well -Debridement - Subq, 1st 20sq cm No No Pain Scale: 0-10 Numeric Is Patient Pain Free? Yes Yes - Nurse 3 - General Ulcer D/C NN Start: 02/14/21 13:41 Freq: Status: Active Protocol: Activity Type Activity Date Activity User E-Sign Co-Sign Detail Recorded Client Recorded Date Recorded By Document 02/14/21 14:51 ML [id number] 02/14/21 14:53 ML Document 02/21/21 14:43 BMF [id number] 02/21/21 14:50 BMF 02/14/21 02/21/21 14:51 14:43 Wound Care Nurse 3 # 3 LEFT HIP -Ulcer Cleansing Rinsed/ Rinsed/ Irrigated with Irrigated with Saline Saline -Foul Odor after Cleansing No No -Primary Dressing Applied Other -Other Dressing santyl,adaptic, SANTYL; DRSG foam dressing PER [place] APPRENTICE ARCHITECT -Primary Dressing Covered/Secured with Other -Other Covering SILICONE BORDER DRSG #2- R HIP -Ulcer Cleansing Rinsed/ Rinsed/ Irrigated with Irrigated with Saline Saline -Foul Odor after Cleansing No No -Primary Dressing Applied Silvercel Aquacel AG 4x4, Other -Other Dressing foam dressing EXCEL SAP BORDER DRSG; DRSG PER [place] APPRENTICE ARCHITECT -Aquacel AG 4x4 0 -Silvercel 1 #1 Sacral -Ulcer Cleansing Rinsed/ Rinsed/ Irrigated with Irrigated with Saline Saline -Foul Odor after Cleansing No No -Primary Dressing Applied Silvercel Aquacel AG 4x4, Other -Other Dressing foam dressing EXCEL SAP BORDER; DRSGS PER [place] APPRENTICE ARCHITECT -Aquacel AG 4x4 1 -Silvercel 0 Treatment Response Procedure Tolerated Well Pain Scale: 0-10 Numeric Is Patient Pain Free? Yes - Visit Discharge Discharge Condition Stable Stable Ambulatory Status Wheelchair Wheelchair Transportation Private Auto Private Auto Accompanied by SISTER IN LAW Medication Reconcilliation completed & No provided to patient/care provider Clinical Summary of Care Provided Yes Facility Type Home Health Additional Wound Wound debrided: Stage IV pressure injury to right hip Laterality: Right Type of Debridement: Excisional debridement Anesthesia Used: 5% Lidocaine Gel Depth: in the subcutaneous layer and to muscle Percentage of wound debrided: 100 Instrument Used: 5mm curette Tissue Removed: Large amounts of slough and devitalized tissue Amount of bleeding with debridement: Mild Bleeding Controlled with: Pressure Patient tolerated procedure: Patient tolerated procedure well Assessment/Plan Assessment/Plan (1) Sacral decubitus ulcer: CODE(S): L89.159 - Pressure ulcer of sacral region, unspecified stage QUALIFIERS: Pressure injury stage: stage 4 Qualified Code(s): L89.154 - Pressure ulcer of sacral region, stage 4 (2) Multiple sclerosis: CODE(S): G35 - Multiple sclerosis (3) Debility: CODE(S): R53.81 - Other malaise (4) Pressure injury of left hip, unstageable: CODE(S): L89.220 - Pressure ulcer of left hip, unstageable (5) Pressure injury of right hip, stage 4: CODE(S): L89.214 - Pressure ulcer of right hip, stage 4 PLAN: Debridement done as documented above, procedure was well-tolerated. Repeat cultures of the sacral pressure injury done prior which showed E. coli and anaerobes and patient completed her antibiotic. X-ray ordered of the sacrum previously which was negative for osteomyelitis. X-ray was ordered of the right hip which was negative, Santyl daily covered with moistened gauze to the unstageable left pressure injury to the hip and will do silver cell to the stage IV pressure injury to the right hip and stage IV sacral pressure injury. Offloading recommended, a Roho cushion was ordered as patient is wheelchair-bound. We will also start the process of ordering an offloading low air loss mattress hospital bed at this time. Patient is currently utilizing a air loss mattress that she ordered online. She states that she will change positions as often as possible, however admits to sitting in her chair in 1 position for most of the day. I discussed retirement with the patient and she continues to decline at this time. Increased protein intake, vitamin C and Zinc also recommended. Labs ordered,pending results. We will also refer for a surgical consult given the depth of her right hip pressure injury. May benefit from surgical debridement. Her questions were answered and she was advised to call with any further questions or concerns. Follow-up in 1 week with myself. This note was generated with [employer] system masteration software. It may contain incorrect words, spelling, and punctuation that were not noted in checking the note before signing.
[2021-02-28 13:42] VITALS: BP 104/75; PULSE 73; TEMP 36.1
--- NOTE | 2021-02-28 20:09 | PN.PCM_ITS ---
History of Present Illness Date of Service: 02/28/21 Chief Complaint: Nonhealing sacral ulcer History of Wound: Ms. Byrnes is a 55-year-old who presents to the wound center due to nonhealing sacral ulcer. History of multiple sclerosis and has been wheelchair-bound for about 16 years. Ulcer noted about a month ago. Has been applying Adaptic and Aquacel to ulcer without any significant improvement. Was seen recently at the emergency room due to concerns by home health nurse for worsening ulcer. Started on antibiotics but she has noted no significant improvement. Foul smell. No significant drainage reported. Denies chills, fever or otherwise feeling of unwell. Progress of Wound: Patient sacral ulcer is improving in size and she completed the antibiotics for her anaerobic bacteria and E. coli. She still admits to not offloading properly to her bilateral hips and remaining in her chair for the majority of the day. These wounds have been continuously deteriorating. Patient is not open to longterm care or home health referral. She is utilizing a Roho cushion. Her hip pressure ulcers have deteriorated and her right hip pressure injury is now opened up and is a stage IV down into the muscle fascia left hip continues to be unstageable with large amount of eschar, imaging was ordered of the left hip today and cultures were taken as well. Imaging was reviewed from the right hip and was within normal limits Objective Data Objective Data Vital Signs: Vital Signs Temp Pulse Resp BP 96.9 F L 73 16 104/75 02/28/21 13:42 02/28/21 13:42 02/21/21 13:52 02/28/21 13:42 Oxygen Delivery Method Room Air Lab / Micro Data Micro: Microbiology 03/01/21 14:10 Wound Abcess - Hip Gram Stain - Final 03/01/21 14:10 Wound Abcess - Hip Wound Culture - Final Escherichia coli Serratia marcescens Enterococcus faecalis 03/01/21 14:10 Wound Abcess - Hip Anaerobic Culture - Preliminary Charges/Coding Procedures Integumentary 111xxx-113xx: [id number] Natalia musc/fascia 20 sq cm/< Physical Exam Const alert, oriented x3 and no apparent distress General Appearance: cooperative and comfortable HEENT normocephalic and head/scalp atraumatic Head and Scalp: normal to inspection, normocephalic and atraumatic Eyes EOMs intact bilaterally Neck full ROM General: normal visual inspection Resp normal respiratory effort Effort and Inspection: able to speak in complete sentences Extremity normal to inspection Skin Wound Narrative: Stage IV pressure injury to sacrum with less slough this week, no signs of obvious infection at this time, stage IV pressure injury to right hip with adherent slough, and muscle fascia exposed, no signs of obvious infection at this time, unstageable pressure injury to left hip with adherent slough, eschar no signs of obvious infection Neuro oriented x3, CN's II-XII intact bilaterally and moves all extremities Psych mental status grossly normal Appearance: grossly normal Attitude: calm Speech: normal speech Debridement Note Debridement Note Wound debrided: Stage IV pressure injury to sacrum and right hip Type of Debridement: Excisional debridement Anesthesia Used: 5% Lidocaine Gel Depth: Down to and including healthy tissue, in the subcutaneous layer and to muscle Percentage of wound debrided: 100 Instrument Used: 5mm curette Tissue Removed: Slough and devitalized tissue Severity: Fat Layer Exposed Amount of bleeding with debridement: Mild Bleeding Controlled with: Pressure Patient tolerated procedure: Patient tolerated procedure well Post-Debridement Measurements and Additional Note: Post-Debridement Measurements/Treatment - Nurse 1 - General Ulcer Assessment Start: 02/14/21 13:41 Freq: Status: Active Protocol: ASHLEY Activity Type Activity Date Activity User E-Sign Co-Sign Detail Recorded Client Recorded Date Recorded By Document 02/14/21 13:41 ML [id number] 02/14/21 13:50 Document 02/21/21 13:52 [facility] [id number] 02/21/21 14:02 [facility] Document 02/28/21 13:42 [place] [id number] 02/28/21 13:50 [place] 02/14/21 02/21/21 02/28/21 13:41 13:52 13:42 - Today's Visit Information Type of service Follow-up Visit Follow-up Visit Follow-up Visit (Physician/ARCHITECTURAL SALES CONSULTANT (Physician/ARCHITECTURAL SALES CONSULTANT (Physician/ARCHITECTURAL SALES CONSULTANT ) ) ) Arrival Mode Wheelchair Wheelchair Wheelchair Transfer Assistance Manual Manual Transfer Assist (Other) 2 MANUAL Accompanied by SISTER IN LAW Patient Identification Verified (Name & Yes Yes Yes ) Patient Requires Transmission-Based No No No Precautions Safety Precautions NA NA Vital Signs Temperature (97.8 F-99.1 F) 96.9 F L 97.1 F L 96.9 F L Temperature Source Temporal Temporal Temporal Pulse Rate (60-100) 82 73 73 Pulse Location Monitor Monitor Monitor Respiratory Rate (12-18) 16 16 Respiratory rate source Observation Observation Oxygen Delivery Method Room Air Blood Pressure (90/60-120/80) 105/87 H 96/64 104/75 Blood Pressure Mean (mm Hg) 93 74 84 Source Monitor Monitor Monitor Position Sitting Sitting Blood Pressure Location Left Arm Right Arm History Since Last Visit- (Skip if this is Patient's initial visit) Have you changed medications since your No No No last visit? Any new allergies or adverse reactions No No No Had a fall/change in ADL's that may No No No increase risk of falls Signs or symptoms of abuse and/or No No No neglect since last visit Have you been in the hospital since your No No No last visit? Has dressing in place as prescribed Yes Yes Yes Has compression in place as prescribed N/A N/A N/A Has offloadiing in place as prescribed N/A N/A Yes Experienced any changes in pain level or No No No management Left Footwear Regular Shoe Slipper Slipper Right Footwear Regular Shoe Slipper Slipper Pain Scale: 0-10 Numeric Is Patient Pain Free? Yes WC - Nurse 1 - General Ulcer Measurement Start: 02/14/21 13:41 Freq: Status: Active Protocol: Activity Type Activity Date Activity User E-Sign Co-Sign Detail Recorded Client Recorded Date Recorded By Document 02/14/21 13:41 ML [id number] 02/14/21 13:50 ML Document 02/21/21 13:52 [facility] [id number] 02/21/21 14:02 BM Document 02/28/21 13:42 [place] [id number] 02/28/21 13:50 [place] 02/14/21 02/21/21 02/28/21 13:41 13:52 13:42 Wound Center Nurse 1 # 3 LEFT HIP -Combined with other wound No No -Current Size (cm) - Length 3 3.5 3.9 -Current Size (cm) - Width 3.1 3.6 3.6 -Current Size (cm) - Depth 0.1 0.1 0.4 -Total Square Cm 9.3 12.60 14.04 -Photo Taken No No -Epithelialization None Present Small 1-33% -Tunneling No No -Undermining/Tunneling No No -Circular Undermining No No -Change in Wound Grade/Stage No -Exudate Amt Large Medium Medium -Exudate Type Serosanguineous Serosanguineous Yellow/Green -Wound Margin Distinct, Distinct, Distinct, Outline Outline Outline Attached Attached Attached -Granulation Amt Medium (34-66%) None Present (0 Small (1-33%) %) -Granulation Quality [place] -Slough/Fibrin Yes Yes Yes -Necrosis Amt Medium (34-66%) Large (67-100%) Large (67-100%) -Necrotic Tissue Type Eschar Eschar Eschar -Texture ([place]yd[place]-wound Skin Appearance) Assessed Assessed, No Abnormality, Localized Edema Assessed ,Scarring -Moisture ([place]-wound Skin Appearance) Assessed Assessed No Abnormality, Assessed -Color ([place]-wound Skin Appearance) Assessed Assessed, No Abnormality, Erythema Assessed -Temperature ([place]-wound Skin No Abnormality No Abnormality No Abnormality Appearance) (Pt Warm) (Pt Warm) (Pt Warm) -Tenderness on Palpation ([place]-wound No No Yes Skin Appearance) -Ulcer Cleansing Rinsed/ Rinsed/ Rinsed/ Irrigated with Irrigated with Irrigated with Saline Saline Saline -Foul Odor after Cleansing No No No -Anesthetic Used 5% Lidocaine 4% Lidocaine 4% Lidocaine Gel Solution Solution #2- R HIP -Combined with other wound No No -Current Size (cm) - Length 3 3.6 2.8 -Current Size (cm) - Width 3.5 2.8 2.5 -Current Size (cm) - Depth 0.3 1 0.3 -Total Square Cm 10.5 10.08 7.00 -Photo Taken No No -Epithelialization None Present Small 1-33% -Tunneling No No -Undermining/Tunneling Yes Yes Yes -Undermining/Tunneling Starts (O'clock 12 12 12 ) -Undermining/Tunneling Ends (O'clock) 1 12 3 -Maximum Distance (cm) 0.9 0.8 0.5 -Circular Undermining Yes No -Change in Wound Grade/Stage No -Exudate Amt Medium Large Large -Exudate Type Serosanguineous Serosanguineous Yellow/Green -Wound Margin Distinct, Distinct, Thickened & Outline Outline Rolled Under Attached Attached -Granulation Amt Medium (34-66%) None Present (0 Medium (34-66%) %) -Granulation Quality [place] -Slough/Fibrin Yes Yes Yes -Necrosis Amt Large (67-100%) Medium (34-66%) -Necrotic Tissue Type Adherent Slough Adherent Slough Adherent Slough -Structure Exposed N/A -Texture ([place]-wound Skin Appearance) Assessed Assessed, No Abnormality, Scarring Assessed -Moisture ([place]-wound Skin Appearance) Assessed Assessed No Abnormality, Assessed -Color ([place]-wound Skin Appearance) Assessed Assessed, No Abnormality, Erythema Assessed -Temperature ([place]-wound Skin No Abnormality No Abnormality No Abnormality Appearance) (Pt Warm) (Pt Warm) (Pt Warm) -Tenderness on Palpation ([place]-wound No No No Skin Appearance) -Ulcer Cleansing Rinsed/ Rinsed/ Rinsed/ Irrigated with Irrigated with Irrigated with Saline Saline Saline -Foul Odor after Cleansing No No No -Anesthetic Used 5% Lidocaine 4% Lidocaine 4% Lidocaine Gel Solution Solution #1 Sacral -Combined with other wound No No -Current Size (cm) - Length 1.5 1.8 1.5 -Current Size (cm) - Width 1.7 1.7 0.5 -Current Size (cm) - Depth 0.2 0.1 0.1 -Total Square Cm 2.55 3.06 0.75 -Photo Taken No No -Epithelialization Small 1-33% -Tunneling No No -Undermining/Tunneling No No -Circular Undermining No No -Exudate Amt Medium Medium Small -Exudate Type Serosanguineous Serosanguineous Serosanguineous -Wound Margin Distinct, Flat & Intact Distinct, Outline Outline Attached Attached -Granulation Amt Medium (34-66%) Small (1-33%) None Present (0 %) -Granulation Quality [place] N/A -Slough/Fibrin Yes Yes Yes -Necrosis Amt Medium (34-66%) Large (67-100%) Small (1-33%) -Necrotic Tissue Type Adherent Slough Adherent Slough -Structure Exposed N/A -Texture ([place]-wound Skin Appearance) Assessed Assessed, Assessed, Scarring Scarring -Moisture ([place]-wound Skin Appearance) Assessed Assessed No Abnormality, Assessed -Color ([place]-wound Skin Appearance) Assessed Assessed No Abnormality, Assessed -Temperature ([place]-wound Skin No Abnormality No Abnormality No Abnormality Appearance) (Pt Warm) (Pt Warm) (Pt Warm) -Tenderness on Palpation ([place]-wound Yes No No Skin Appearance) -Ulcer Cleansing Rinsed/ Rinsed/ Rinsed/ Irrigated with Irrigated with Irrigated with Saline Saline Saline -Foul Odor after Cleansing No No No -Anesthetic Used 5% Lidocaine 4% Lidocaine 4% Lidocaine Gel Solution Solution WC - Nurse 2 - General Ulcer CM Notes Start: 02/14/21 13:41 Freq: Status: Active Protocol: Activity Type Activity Date Activity User E-Sign Co-Sign Detail Recorded Client Recorded Date Recorded By Document 02/14/21 14:05 MW [id number] 02/14/21 14:18 MW Document 02/21/21 14:21 JF [id number] 02/21/21 14:29 JF Edit Result 02/21/21 14:21 JF (1) [id number] 02/24/21 15:25 PL Document 02/28/21 14:03 MW [id number] 02/28/21 14:16 MW (1) # 3 LEFT HIP - Debridement, SubQ, ea addt'l 20sq cm => 1 or part thereof 02/14/21 02/21/21 02/28/21 14:05 14:21 14:03 Wound Center Nurse 2 # 3 LEFT HIP -Time 14:07 14:22 14:08 -Correct Patient Yes Yes Yes -Correct Side, Site, Position Yes Yes Yes -Correct Procedure Yes Yes Yes -Procedure Performed Yes Yes Yes -Type of Procedure Debridement Debridement Debridement -Clinical Debridement Subcutaneous Subcutaneous Subcutaneous -Tissue Removed Subcutaneous Subcutaneous Subcutaneous -Post Debridement (cm) - Length 5.0 4.0 4.5 -Post Debridement (cm) - Width 4.0 4.5 4.5 -Post Debridement (cm) - Depth 0.1 0.1 0.3 -Total Square (Post) (cm) 20.00 18.00 20.25 -Area of Debridement (cm) - Length 5.0 4 4.5 -Area of Debridement (cm) - Width 4.0 4.5 4.5 -Total Square (Area) (cm) 20.00 18.0 20.25 -Tunneling No No No -Undermining/Tunneling No No No -Circular Undermining No No No -Wound/Ulcer Outcome Not Healed Not Healed Not Healed -Ulcer Cleansing Rinsed/ Rinsed/ Rinsed/ Irrigated with Irrigated with Irrigated with Saline Saline Saline -Foul Odor after Cleansing No No No -Bioengineered Tissue No No No -Bleeding Controlled with Pressure Pressure Pressure -Offloading No No No -Treatment Response Procedure Procedure Procedure Tolerated Well Tolerated Well Tolerated Well -Debridement - Subq, 1st 20sq cm Yes Yes Yes -Debridement, SubQ, ea addt'l 20sq cm 1 1 1 or part thereof #2- R HIP -Time 14:08 14:22 14:15 -Correct Patient Yes Yes Yes -Correct Side, Site, Position Yes Yes Yes -Correct Procedure Yes Yes Yes -Procedure Performed Yes Yes Yes -Type of Procedure Debridement Debridement Debridement -Clinical Debridement Muscle / Fascia Muscle / Fascia Muscle / Fascia -Tissue Removed Muscle,Fascia Muscle Muscle,Fascia -Post Debridement (cm) - Length 3.5 4.0 4.0 -Post Debridement (cm) - Width 4.5 4.5 3.0 -Post Debridement (cm) - Depth 2.0 1.6 1.5 -Total Square (Post) (cm) 15.75 18.00 12.00 -Area of Debridement (cm) - Length 3.5 4.0 4.0 -Area of Debridement (cm) - Width 4.5 4.5 3.0 -Total Square (Area) (cm) 15.75 18.00 12.00 -Tunneling No No No -Undermining/Tunneling Yes Yes No -Undermining/Tunneling Starts (O'clock 12 1 ) -Undermining/Tunneling Ends (O'clock) 6 6 -Maximum Distance (cm) 1.0 1.5 -Circular Undermining No No No -Wound/Ulcer Outcome Not Healed Not Healed Not Healed -Ulcer Cleansing Rinsed/ Rinsed/ Rinsed/ Irrigated with Irrigated with Irrigated with Saline Saline Saline -Foul Odor after Cleansing No No No -Bioengineered Tissue No No No -Bleeding Controlled with Pressure Pressure Pressure -Offloading No No No -Treatment Response Procedure Procedure Procedure Tolerated Well Tolerated Well Tolerated Well -Debridement - Subq, 1st 20sq cm No -Debridement - Muscle / Fascia, 1st Yes Yes Yes 20sq cm #1 Sacral -Time 14:08 14:23 14:06 -Correct Patient Yes Yes Yes -Correct Side, Site, Position Yes Yes Yes -Correct Procedure Yes Yes Yes -Procedure Performed Yes Yes Yes -Type of Procedure Debridement Debridement Debridement -Clinical Debridement Subcutaneous Subcutaneous Subcutaneous -Tissue Removed Subcutaneous Subcutaneous Subcutaneous -Post Debridement (cm) - Length 2.0 1.5 1.5 -Post Debridement (cm) - Width 0.5 1.5 0.6 -Post Debridement (cm) - Depth 0.2 0.3 0.1 -Total Square (Post) (cm) 1.00 2.25 0.90 -Area of Debridement (cm) - Length 2.0 1.5 1.5 -Area of Debridement (cm) - Width 0.5 1.5 0.6 -Total Square (Area) (cm) 1.00 2.25 0.90 -Tunneling No No No -Undermining/Tunneling No No No -Circular Undermining No No No -Wound/Ulcer Outcome Not Healed Not Healed Not Healed -Ulcer Cleansing Rinsed/ Rinsed/ Rinsed/ Irrigated with Irrigated with Irrigated with Saline Saline Saline -Foul Odor after Cleansing No No No -Bioengineered Tissue No No No -Bleeding Controlled with Pressure Pressure Pressure -Offloading No No No -Treatment Response Procedure Procedure Procedure Tolerated Well Tolerated Well Tolerated Well -Debridement - Subq, 1st 20sq cm No No No Pain Scale: 0-10 Numeric Is Patient Pain Free? Yes Yes Yes WC - Nurse 3 - General Ulcer D/C NN Start: 02/14/21 13:41 Freq: Status: Active Protocol: Activity Type Activity Date Activity User E-Sign Co-Sign Detail Recorded Client Recorded Date Recorded By Document 02/14/21 14:51 ML [id number] 02/14/21 14:53 ML Document 02/21/21 14:43 [facility] [id number] 02/21/21 14:50 [facility] Document 02/28/21 14:28 [id number] 02/28/21 14:29 02/14/21 02/21/21 02/28/21 14:51 14:43 14:28 Wound Care Nurse 3 # 3 LEFT HIP -Ulcer Cleansing Rinsed/ Rinsed/ Rinsed/ Irrigated with Irrigated with Irrigated with Saline Saline Saline -Foul Odor after Cleansing No No No -Primary Dressing Applied Other Enzymatic -Other Dressing santyl,adaptic, SANTYL; DRSG foam dressing PER [place] RECORDS MANAGER -Primary Dressing Covered/Secured with Other Dry Gauze, Secured with Tape -Other Covering SILICONE BORDER DRSG #2- R HIP -Ulcer Cleansing Rinsed/ Rinsed/ Rinsed/ Irrigated with Irrigated with Irrigated with Saline Saline Saline -Foul Odor after Cleansing No No No -Primary Dressing Applied Silvercel Aquacel AG 4x4, Silvercel Other -Other Dressing foam dressing EXCEL SAP BORDER DRSG; DRSG PER [place] RECORDS MANAGER -Primary Dressing Covered/Secured with Dry Gauze, Secured with Tape -Aquacel AG 4x4 0 -Silvercel 1 1 #1 Sacral -Ulcer Cleansing Rinsed/ Rinsed/ Rinsed/ Irrigated with Irrigated with Irrigated with Saline Saline Saline -Foul Odor after Cleansing No No No -Primary Dressing Applied Silvercel Aquacel AG 4x4, Silvercel Other -Other Dressing foam dressing EXCEL SAP BORDER; DRSGS PER [place] RECORDS MANAGER -Primary Dressing Covered/Secured with Dry Gauze, Secured with Tape -Aquacel AG 4x4 1 -Silvercel 0 0 Treatment Response Procedure Tolerated Well Pain Scale: 0-10 Numeric Is Patient Pain Free? Yes Yes WC - Visit Discharge Discharge Condition Stable Stable Stable Ambulatory Status Wheelchair Wheelchair Wheelchair Transportation Private Auto Private Auto Private Auto Accompanied by SISTER IN LAW [facility] Medication Reconcilliation completed & No Yes provided to patient/care provider Clinical Summary of Care Provided Yes Yes Facility Type Home Health Additional Wound Wound debrided: Unstageable pressure injury to left hip Laterality: Left Type of Debridement: Excisional debridement Anesthesia Used: 5% Lidocaine Gel Depth: Down to and including healthy tissue and in the subcutaneous layer Percentage of wound debrided: 100 Instrument Used: 3mm curette Tissue Removed: Slough, eschar, devitalized tissue Severity: Fat Layer Exposed Amount of bleeding with debridement: Mild Bleeding Controlled with: Pressure Patient tolerated procedure: Patient tolerated procedure well Assessment/Plan Assessment/Plan (1) Sacral decubitus ulcer: CODE(S): L89.159 - Pressure ulcer of sacral region, unspecified stage QUALIFIERS: Pressure injury stage: stage 4 Qualified Code(s): L89.154 - Pressure ulcer of sacral region, stage 4 (2) Multiple sclerosis: CODE(S): G35 - Multiple sclerosis (3) Debility: CODE(S): R53.81 - Other malaise (4) Pressure injury of left hip, unstageable: CODE(S): L89.220 - Pressure ulcer of left hip, unstageable (5) Pressure injury of right hip, stage 4: CODE(S): L89.214 - Pressure ulcer of right hip, stage 4 PLAN: Debridement done as documented above, procedure was well-tolerated. Repeat cultures of the sacral pressure injury done prior which showed E. coli and anaerobes and patient completed her antibiotic. X-ray ordered of the sacrum previously which was negative for osteomyelitis. X-ray was ordered of the right hip which was negative, Santyl daily covered with moistened gauze to the unstageable left pressure injury to the hip and will do silver cell to the stage IV pressure injury to the right hip and stage IV sacral pressure injury. Offloading recommended, a Roho cushion was ordered as patient is wheelchair- bound. We will also start the process of ordering an offloading low air loss mattress hospital bed at this time. Patient is currently utilizing a air loss mattress that she ordered online. She states that she will change positions as often as possible, however admits to sitting in her chair in 1 position for most of the day. I discussed longterm with the patient and she continues to decline at this time. Increased protein intake, vitamin C and Zinc also recommended. Labs ordered,pending results. We will also refer for a surgical consult given the depth of her right hip pressure injury. May benefit from surgical debridement. Her questions were answered and she was advised to call with any further questions or concerns. Follow-up in 1 week with myself. This note was generated with compropagoation software. It may contain incorrect words, spelling, and punctuation that were not noted in checking the note before signing.
--- NOTE | 2021-03-05 12:05 | WC ---
Wound culture from 03/01/21 reviewed per Mario Izaguirre NP. Verbal order received for Bactrim DS 1 tablet po bid x 10 days. Patient stated she had nausea before from Bactrim but took it on an empty stomach but is willing to try it again. Instructed patient to take medication with food. Voiced understanding.
[2021-03-07 13:47] VITALS: BP 109/46; PULSE 77; RESP 16; TEMP 36.8
--- NOTE | 2021-03-07 16:18 | PCM.WC.PN ---
History of Present Illness Date of Service: 03/07/21 Chief Complaint: Nonhealing sacral ulcer History of Wound: Ms. Byrnes is a 55-year-old who presents to the wound center due to nonhealing sacral ulcer. History of multiple sclerosis and has been wheelchair-bound for about 16 years. Ulcer noted about a month ago. Has been applying Adaptic and Aquacel to ulcer without any significant improvement. Was seen recently at the emergency room due to concerns by home health nurse for worsening ulcer. Started on antibiotics but she has noted no significant improvement. Foul smell. No significant drainage reported. Denies chills, fever or otherwise feeling of unwell. Progress of Wound: Patient sacral ulcer is improving in size. She still admits to not offloading properly to her bilateral hips and remaining in her chair for the majority of the day. These wounds have been continuously deteriorating. Patient is not open to intermediate care or home health referral. She is utilizing a Roho cushion. Her hip pressure ulcers have deteriorated and her right hip pressure injury is now opened up and is a stage IV down into the muscle fascia left hip is now a stage IV pressure injury as well, imaging was ordered prior and could not exclude osteomyelitis and therefore an MRI was ordered. Imaging was reviewed from the right hip and was within normal limits Objective Data Objective Data Vital Signs: Vital Signs Temp Pulse Resp BP 98.2 F 77 16 109/46 L 03/07/21 13:47 03/07/21 13:47 03/07/21 13:47 03/07/21 13:47 Oxygen Delivery Method Room Air Lab / Micro Data Micro: Microbiology 03/01/21 14:10 Wound Abcess - Hip Gram Stain - Final 03/01/21 14:10 Wound Abcess - Hip Wound Culture - Final Escherichia coli Serratia marcescens Enterococcus faecalis 03/01/21 14:10 Wound Abcess - Hip Anaerobic Culture - Final No anaerobic bacteria isolated. Charges/Coding Procedures Integumentary [id number]: [id number] Natalia musc/fascia 20 sq cm/< Physical Exam Const alert, oriented x3 and no apparent distress General Appearance: cooperative and comfortable HEENT normocephalic and head/scalp atraumatic Head and Scalp: normal to inspection, normocephalic and atraumatic Eyes EOMs intact bilaterally Neck full ROM General: normal visual inspection Resp normal respiratory effort Effort and Inspection: able to speak in complete sentences Extremity normal to inspection Skin Wound Narrative: Stage IV pressure injury to sacrum almost completely healed, no signs of obvious infection at this time, stage IV pressure injury to right and left hip with adherent slough, and muscle fascia exposed, no signs of obvious infection at this time, Neuro oriented x3, CN's II-XII intact bilaterally and moves all extremities Psych mental status grossly normal Appearance: grossly normal Attitude: calm Speech: normal speech Debridement Note Debridement Note Wound debrided: Stage IV pressure injury to hips bilateral Laterality: Right Type of Debridement: Excisional debridement Anesthesia Used: 5% Lidocaine Gel Depth: in the subcutaneous layer and to muscle Percentage of wound debrided: 100 Instrument Used: 5mm curette and #11 blade Tissue Removed: Slough, eschar, devitalized tissue Severity: Necrosis of Muscle Amount of bleeding with debridement: Mild Bleeding Controlled with: Pressure Patient tolerated procedure: Patient tolerated procedure well Post-Debridement Measurements and Additional Note: Post-Debridement Measurements/Treatment - Nurse 1 - General Ulcer Assessment Start: 02/14/21 13:41 Freq: Status: Active Protocol: ASHLEY Activity Type Activity Date Activity User E-Sign Co-Sign Detail Recorded Client Recorded Date Recorded By Document 02/14/21 13:41 [id number] 02/14/21 13:50 ML Document 02/21/21 13:52 [facility] [id number] 02/21/21 14:02 [facility] Document 02/28/21 13:42 [place] [id number] 02/28/21 13:50 [place] Document 03/07/21 13:47 [facility] [id number] 03/07/21 13:57 [facility] 02/14/21 02/21/21 02/28/21 13:41 13:52 13:42 - Today's Visit Information Type of service Follow-up Visit Follow-up Visit Follow-up Visit (Physician/PHYSICAL THERAPY PROFESSOR (Physician/PHYSICAL THERAPY PROFESSOR (Physician/PHYSICAL THERAPY PROFESSOR ) ) ) Arrival Mode Wheelchair Wheelchair Wheelchair Transfer Assistance Manual Manual Transfer Assist (Other) 2 MANUAL Accompanied by SISTER IN LAW Patient Identification Verified (Name & Yes Yes Yes ) Patient Requires Transmission-Based No No No Precautions Safety Precautions NA NA Vital Signs Temperature (97.8 F-99.1 F) 96.9 F L 97.1 F L 96.9 F L Temperature Source Temporal Temporal Temporal Pulse Rate (60-100) 82 73 73 Pulse Location Monitor Monitor Monitor Respiratory Rate (12-18) 16 16 Respiratory rate source Observation Observation Oxygen Delivery Method Room Air Blood Pressure (90/60-120/80) 105/87 H 96/64 104/75 Blood Pressure Mean (mm Hg) 93 74 84 Source Monitor Monitor Monitor Position Sitting Sitting Blood Pressure Location Left Arm Right Arm History Since Last Visit- (Skip if this is Patient's initial visit) Have you changed medications since your No No No last visit? Any new allergies or adverse reactions No No No Had a fall/change in ADL's that may No No No increase risk of falls Signs or symptoms of abuse and/or No No No neglect since last visit Have you been in the hospital since your No No No last visit? Has dressing in place as prescribed Yes Yes Yes Has compression in place as prescribed N/A N/A N/A Has offloadiing in place as prescribed N/A N/A Yes Experienced any changes in pain level or No No No management Left Footwear Regular Shoe Slipper Slipper Right Footwear Regular Shoe Slipper Slipper Pain Scale: 0-10 Numeric Is Patient Pain Free? Yes 03/07/21 13:47 WC - Today's Visit Information Type of service Follow-up Visit (Physician/PHYSICAL THERAPY PROFESSOR ) Arrival Mode Wheelchair Transfer Assistance Manual Transfer Assist (Other) Accompanied by Patient Identification Verified (Name & Yes ) Patient Requires Transmission-Based No Precautions Safety Precautions Vital Signs Temperature (97.8 F-99.1 F) 98.2 F Temperature Source Temporal Pulse Rate (60-100) 77 Pulse Location Monitor Respiratory Rate (12-18) 16 Respiratory rate source Observation Oxygen Delivery Method Room Air Blood Pressure (90/60-120/80) 109/46 L Blood Pressure Mean (mm Hg) 67 Source Monitor Position Sitting Blood Pressure Location Right Arm History Since Last Visit- (Skip if this is Patient's initial visit) Have you changed medications since your No last visit? Any new allergies or adverse reactions No Had a fall/change in ADL's that may No increase risk of falls Signs or symptoms of abuse and/or No neglect since last visit Have you been in the hospital since your No last visit? Has dressing in place as prescribed Yes Has compression in place as prescribed N/A Has offloadiing in place as prescribed N/A Experienced any changes in pain level or No management Left Footwear Right Footwear Pain Scale: 0-10 Numeric Is Patient Pain Free? Yes WC - Nurse 1 - General Ulcer Measurement Start: 02/14/21 13:41 Freq: Status: Active Protocol: Activity Type Activity Date Activity User E-Sign Co-Sign Detail Recorded Client Recorded Date Recorded By Document 02/14/21 13:41 ML [id number] 02/14/21 13:50 ML Document 02/21/21 13:52 BMF [id number] 02/21/21 14:02 BMF Document 02/28/21 13:42 AK [id number] 02/28/21 13:50 [place] Document 03/07/21 13:47 BMF [id number] 03/07/21 13:57 BMF 02/14/21 02/21/21 02/28/21 13:41 13:52 13:42 Wound Center Nurse 1 # 3 LEFT HIP -Combined with other wound No No -Current Size (cm) - Length 3 3.5 3.9 -Current Size (cm) - Width 3.1 3.6 3.6 -Current Size (cm) - Depth 0.1 0.1 0.4 -Total Square Cm 9.3 12.60 14.04 -Photo Taken No No -Epithelialization None Present Small 1-33% -Tunneling No No -Undermining/Tunneling No No -Circular Undermining No No -Change in Wound Grade/Stage No -Exudate Amt Large Medium Medium -Exudate Type Serosanguineous Serosanguineous Yellow/Green -Wound Margin Distinct, Distinct, Distinct, Outline Outline Outline Attached Attached Attached -Granulation Amt Medium (34-66%) None Present (0 Small (1-33%) %) -Granulation Quality [place] -Slough/Fibrin Yes Yes Yes -Necrosis Amt Medium (34-66%) Large (67-100%) Large (67-100%) -Necrotic Tissue Type Eschar Eschar Eschar -Texture ([place]yd[place]-wound Skin Appearance) Assessed Assessed, No Abnormality, Localized Edema Assessed ,Scarring -Moisture ([place]-wound Skin Appearance) Assessed Assessed No Abnormality, Assessed -Color ([place]-wound Skin Appearance) Assessed Assessed, No Abnormality, Erythema Assessed -Temperature ([place]-wound Skin No Abnormality No Abnormality No Abnormality Appearance) (Pt Warm) (Pt Warm) (Pt Warm) -Tenderness on Palpation ([place]yd[place]-wound No No Yes Skin Appearance) -Ulcer Cleansing Rinsed/ Rinsed/ Rinsed/ Irrigated with Irrigated with Irrigated with Saline Saline Saline -Foul Odor after Cleansing No No No -Anesthetic Used 5% Lidocaine 4% Lidocaine 4% Lidocaine Gel Solution Solution -Wound Comment(s) #2- R HIP -Combined with other wound No No -Current Size (cm) - Length 3 3.6 2.8 -Current Size (cm) - Width 3.5 2.8 2.5 -Current Size (cm) - Depth 0.3 1 0.3 -Total Square Cm 10.5 10.08 7.00 -Photo Taken No No -Epithelialization None Present Small 1-33% -Tunneling No No -Undermining/Tunneling Yes Yes Yes -Undermining/Tunneling Starts (O'clock 12 12 12 ) -Undermining/Tunneling Ends (O'clock) 1 12 3 -Maximum Distance (cm) 0.9 0.8 0.5 -Circular Undermining Yes No -Change in Wound Grade/Stage No -Exudate Amt Medium Large Large -Exudate Type Serosanguineous Serosanguineous Yellow/Green -Wound Margin Distinct, Distinct, Thickened & Outline Outline Rolled Under Attached Attached -Granulation Amt Medium (34-66%) None Present (0 Medium (34-66%) %) -Granulation Quality [place] -Slough/Fibrin Yes Yes Yes -Necrosis Amt Large (67-100%) Medium (34-66%) -Necrotic Tissue Type Adherent Slough Adherent Slough Adherent Slough -Structure Exposed N/A -Texture ([place]yd[place]-wound Skin Appearance) Assessed Assessed, No Abnormality, Scarring Assessed -Moisture ([place]-wound Skin Appearance) Assessed Assessed No Abnormality, Assessed -Color ([place]-wound Skin Appearance) Assessed Assessed, No Abnormality, Erythema Assessed -Temperature ([place]-wound Skin No Abnormality No Abnormality No Abnormality Appearance) (Pt Warm) (Pt Warm) (Pt Warm) -Tenderness on Palpation ([place]ydney-wound No No No Skin Appearance) -Ulcer Cleansing Rinsed/ Rinsed/ Rinsed/ Irrigated with Irrigated with Irrigated with Saline Saline Saline -Foul Odor after Cleansing No No No -Anesthetic Used 5% Lidocaine 4% Lidocaine 4% Lidocaine Gel Solution Solution #1 Sacral -Combined with other wound No No -Current Size (cm) - Length 1.5 1.8 1.5 -Current Size (cm) - Width 1.7 1.7 0.5 -Current Size (cm) - Depth 0.2 0.1 0.1 -Total Square Cm 2.55 3.06 0.75 -Photo Taken No No -Epithelialization Small 1-33% -Tunneling No No -Undermining/Tunneling No No -Circular Undermining No No -Exudate Amt Medium Medium Small -Exudate Type Serosanguineous Serosanguineous Serosanguineous -Wound Margin Distinct, Flat & Intact Distinct, Outline Outline Attached Attached -Granulation Amt Medium (34-66%) Small (1-33%) None Present (0 %) -Granulation Quality [place] N/A -Slough/Fibrin Yes Yes Yes -Necrosis Amt Medium (34-66%) Large (67-100%) Small (1-33%) -Necrotic Tissue Type Adherent Slough Adherent Slough -Structure Exposed N/A -Texture ([place]yd[place]-wound Skin Appearance) Assessed Assessed, Assessed, Scarring Scarring -Moisture ([place]-wound Skin Appearance) Assessed Assessed No Abnormality, Assessed -Color ([place]-wound Skin Appearance) Assessed Assessed No Abnormality, Assessed -Temperature ([place]-wound Skin No Abnormality No Abnormality No Abnormality Appearance) (Pt Warm) (Pt Warm) (Pt Warm) -Tenderness on Palpation ([place]-wound Yes No No Skin Appearance) -Ulcer Cleansing Rinsed/ Rinsed/ Rinsed/ Irrigated with Irrigated with Irrigated with Saline Saline Saline -Foul Odor after Cleansing No No No -Anesthetic Used 5% Lidocaine 4% Lidocaine 4% Lidocaine Gel Solution Solution 03/07/21 13:47 Wound Center Nurse 1 # 3 LEFT HIP -Combined with other wound No -Current Size (cm) - Length 3.5 -Current Size (cm) - Width 5.5 -Current Size (cm) - Depth 1.1 -Total Square Cm 19.25 -Photo Taken No -Epithelialization None Present -Tunneling No -Undermining/Tunneling No -Circular Undermining No -Change in Wound Grade/Stage -Exudate Amt Large -Exudate Type Serosanguineous -Wound Margin Distinct, Outline Attached -Granulation Amt Small (1-33%) -Granulation Quality Red -Slough/Fibrin Yes -Necrosis Amt Large (67-100%) -Necrotic Tissue Type Adherent Slough -Texture ([place]yd[place]-wound Skin Appearance) Assessed, Localized Edema ,Scarring -Moisture ([place]yd[place]-wound Skin Appearance) Assessed -Color ([place]-wound Skin Appearance) Assessed, Erythema -Temperature ([place]-wound Skin No Abnormality Appearance) (Pt Warm) -Tenderness on Palpation ([place]yd[place]-wound No Skin Appearance) -Ulcer Cleansing Soap and Water -Foul Odor after Cleansing No -Anesthetic Used 4% Lidocaine Solution -Wound Comment(s) SLIGHT ODOR AFTER CLEANSING #2- R HIP -Combined with other wound No -Current Size (cm) - Length 2.8 -Current Size (cm) - Width 3.3 -Current Size (cm) - Depth 1.2 -Total Square Cm 9.24 -Photo Taken -Epithelialization None Present -Tunneling No -Undermining/Tunneling Yes -Undermining/Tunneling Starts (O'clock 12 ) -Undermining/Tunneling Ends (O'clock) 12 -Maximum Distance (cm) 1.5 -Circular Undermining Yes -Change in Wound Grade/Stage -Exudate Amt Large -Exudate Type Serosanguineous -Wound Margin Distinct, Outline Attached -Granulation Amt Small (1-33%) -Granulation Quality Red -Slough/Fibrin Yes -Necrosis Amt Large (67-100%) -Necrotic Tissue Type Adherent Slough -Structure Exposed -Texture ([place]yd[place]-wound Skin Appearance) Assessed, Localized Edema ,Scarring -Moisture ([place]yd[place]-wound Skin Appearance) Assessed -Color ([place]-wound Skin Appearance) Assessed, Erythema -Temperature ([place]-wound Skin No Abnormality Appearance) (Pt Warm) -Tenderness on Palpation ([place]yd[place]-wound No Skin Appearance) -Ulcer Cleansing Soap and Water -Foul Odor after Cleansing No -Anesthetic Used 4% Lidocaine Solution #1 Sacral -Combined with other wound No -Current Size (cm) - Length 0.1 -Current Size (cm) - Width 0.1 -Current Size (cm) - Depth 0.1 -Total Square Cm 0.01 -Photo Taken -Epithelialization Large 67-100% -Tunneling No -Undermining/Tunneling No -Circular Undermining No -Exudate Amt Medium -Exudate Type Serosanguineous -Wound Margin Flat & Intact -Granulation Amt Large (67-100%) -Granulation Quality [place] -Slough/Fibrin No -Necrosis Amt None Present (0 %) -Necrotic Tissue Type -Structure Exposed -Texture ([place]yd[place]-wound Skin Appearance) Assessed, Scarring -Moisture ([place]-wound Skin Appearance) Assessed -Color ([place]-wound Skin Appearance) Assessed -Temperature ([place]-wound Skin No Abnormality Appearance) (Pt Warm) -Tenderness on Palpation ([place]yd[place]-wound No Skin Appearance) -Ulcer Cleansing Soap and Water -Foul Odor after Cleansing No -Anesthetic Used 4% Lidocaine Solution WC - Nurse 2 - General Ulcer CM Notes Start: 02/14/21 13:41 Freq: Status: Active Protocol: Activity Type Activity Date Activity User E-Sign Co-Sign Detail Recorded Client Recorded Date Recorded By Document 02/14/21 14:05 MW [id number] 02/14/21 14:18 MW Document 02/21/21 14:21 JF [id number] 02/21/21 14:29 JF Edit Result 02/21/21 14:21 JF (1) [id number] 02/24/21 15:25 PL Document 02/28/21 14:03 MW [id number] 02/28/21 14:16 MW Document 03/07/21 14:21 MW [id number] 03/07/21 14:32 MW (1) # 3 LEFT HIP - Debridement, SubQ, ea addt'l 20sq cm => 1 or part thereof 02/14/21 02/21/21 02/28/21 14:05 14:21 14:03 Wound Center Nurse 2 # 3 LEFT HIP -Time 14:07 14:22 14:08 -Correct Patient Yes Yes Yes -Correct Side, Site, Position Yes Yes Yes -Correct Procedure Yes Yes Yes -Procedure Performed Yes Yes Yes -Type of Procedure Debridement Debridement Debridement -Clinical Debridement Subcutaneous Subcutaneous Subcutaneous -Tissue Removed Subcutaneous Subcutaneous Subcutaneous -Post Debridement (cm) - Length 5.0 4.0 4.5 -Post Debridement (cm) - Width 4.0 4.5 4.5 -Post Debridement (cm) - Depth 0.1 0.1 0.3 -Total Square (Post) (cm) 20.00 18.00 20.25 -Area of Debridement (cm) - Length 5.0 4 4.5 -Area of Debridement (cm) - Width 4.0 4.5 4.5 -Total Square (Area) (cm) 20.00 18.0 20.25 -Tunneling No No No -Undermining/Tunneling No No No -Circular Undermining No No No -Wound/Ulcer Outcome Not Healed Not Healed Not Healed -Ulcer Cleansing Rinsed/ Rinsed/ Rinsed/ Irrigated with Irrigated with Irrigated with Saline Saline Saline -Foul Odor after Cleansing No No No -Bioengineered Tissue No No No -Bleeding Controlled with Pressure Pressure Pressure -Offloading No No No -Treatment Response Procedure Procedure Procedure Tolerated Well Tolerated Well Tolerated Well -Debridement - Subq, 1st 20sq cm Yes Yes Yes -Debridement, SubQ, ea addt'l 20sq cm 1 1 1 or part thereof -Debridement - Muscle / Fascia, 1st 20sq cm -Debridement, Muscle/Fascia, ea addt'l 20sq cm or part thereof #2- R HIP -Time 14:08 14:22 14:15 -Correct Patient Yes Yes Yes -Correct Side, Site, Position Yes Yes Yes -Correct Procedure Yes Yes Yes -Procedure Performed Yes Yes Yes -Type of Procedure Debridement Debridement Debridement -Clinical Debridement Muscle / Fascia Muscle / Fascia Muscle / Fascia -Tissue Removed Muscle,Fascia Muscle Muscle,Fascia -Post Debridement (cm) - Length 3.5 4.0 4.0 -Post Debridement (cm) - Width 4.5 4.5 3.0 -Post Debridement (cm) - Depth 2.0 1.6 1.5 -Total Square (Post) (cm) 15.75 18.00 12.00 -Area of Debridement (cm) - Length 3.5 4.0 4.0 -Area of Debridement (cm) - Width 4.5 4.5 3.0 -Total Square (Area) (cm) 15.75 18.00 12.00 -Tunneling No No No -Undermining/Tunneling Yes Yes No -Undermining/Tunneling Starts (O'clock 12 1 ) -Undermining/Tunneling Ends (O'clock) 6 6 -Maximum Distance (cm) 1.0 1.5 -Circular Undermining No No No -Wound/Ulcer Outcome Not Healed Not Healed Not Healed -Ulcer Cleansing Rinsed/ Rinsed/ Rinsed/ Irrigated with Irrigated with Irrigated with Saline Saline Saline -Foul Odor after Cleansing No No No -Bioengineered Tissue No No No -Bleeding Controlled with Pressure Pressure Pressure -Offloading No No No -Treatment Response Procedure Procedure Procedure Tolerated Well Tolerated Well Tolerated Well -Debridement - Subq, 1st 20sq cm No -Debridement - Muscle / Fascia, 1st Yes Yes Yes 20sq cm #1 Sacral -Time 14:08 14:23 14:06 -Correct Patient Yes Yes Yes -Correct Side, Site, Position Yes Yes Yes -Correct Procedure Yes Yes Yes -Procedure Performed Yes Yes Yes -Type of Procedure Debridement Debridement Debridement -Clinical Debridement Subcutaneous Subcutaneous Subcutaneous -Tissue Removed Subcutaneous Subcutaneous Subcutaneous -Post Debridement (cm) - Length 2.0 1.5 1.5 -Post Debridement (cm) - Width 0.5 1.5 0.6 -Post Debridement (cm) - Depth 0.2 0.3 0.1 -Total Square (Post) (cm) 1.00 2.25 0.90 -Area of Debridement (cm) - Length 2.0 1.5 1.5 -Area of Debridement (cm) - Width 0.5 1.5 0.6 -Total Square (Area) (cm) 1.00 2.25 0.90 -Tunneling No No No -Undermining/Tunneling No No No -Circular Undermining No No No -Wound/Ulcer Outcome Not Healed Not Healed Not Healed -Ulcer Cleansing Rinsed/ Rinsed/ Rinsed/ Irrigated with Irrigated with Irrigated with Saline Saline Saline -Foul Odor after Cleansing No No No -Bioengineered Tissue No No No -Bleeding Controlled with Pressure Pressure Pressure -Offloading No No No -Treatment Response Procedure Procedure Procedure Tolerated Well Tolerated Well Tolerated Well -Debridement - Subq, 1st 20sq cm No No No Pain Scale: 0-10 Numeric Is Patient Pain Free? Yes Yes Yes 03/07/21 14:21 Wound Center Nurse 2 # 3 LEFT HIP -Time 14:21 -Correct Patient Yes -Correct Side, Site, Position Yes -Correct Procedure Yes -Procedure Performed Yes -Type of Procedure Debridement -Clinical Debridement Muscle / Fascia -Tissue Removed Muscle,Fascia -Post Debridement (cm) - Length 4.5 -Post Debridement (cm) - Width 4.5 -Post Debridement (cm) - Depth 1.5 -Total Square (Post) (cm) 20.25 -Area of Debridement (cm) - Length 4.5 -Area of Debridement (cm) - Width 4.5 -Total Square (Area) (cm) 20.25 -Tunneling No -Undermining/Tunneling No -Circular Undermining No -Wound/Ulcer Outcome Not Healed -Ulcer Cleansing Rinsed/ Irrigated with Saline -Foul Odor after Cleansing No -Bioengineered Tissue No -Bleeding Controlled with Pressure -Offloading No -Treatment Response Procedure Tolerated Well -Debridement - Subq, 1st 20sq cm -Debridement, SubQ, ea addt'l 20sq cm or part thereof -Debridement - Muscle / Fascia, 1st Yes 20sq cm -Debridement, Muscle/Fascia, ea addt'l 1 20sq cm or part thereof #2- R HIP -Time 14:21 -Correct Patient Yes -Correct Side, Site, Position Yes -Correct Procedure Yes -Procedure Performed Yes -Type of Procedure Debridement -Clinical Debridement Muscle / Fascia -Tissue Removed Muscle,Fascia -Post Debridement (cm) - Length 3.5 -Post Debridement (cm) - Width 2.2 -Post Debridement (cm) - Depth 2.2 -Total Square (Post) (cm) 7.70 -Area of Debridement (cm) - Length 3.5 -Area of Debridement (cm) - Width 2.2 -Total Square (Area) (cm) 7.70 -Tunneling No -Undermining/Tunneling Yes -Undermining/Tunneling Starts (O'clock 1 ) -Undermining/Tunneling Ends (O'clock) 7 -Maximum Distance (cm) 1.7 -Circular Undermining No -Wound/Ulcer Outcome Not Healed -Ulcer Cleansing Rinsed/ Irrigated with Saline -Foul Odor after Cleansing No -Bioengineered Tissue No -Bleeding Controlled with Pressure -Offloading No -Treatment Response Procedure Tolerated Well -Debridement - Subq, 1st 20sq cm -Debridement - Muscle / Fascia, 1st No 20sq cm #1 Sacral -Time 14:22 -Correct Patient Yes -Correct Side, Site, Position Yes -Correct Procedure Yes -Procedure Performed No -Type of Procedure -Clinical Debridement -Tissue Removed -Post Debridement (cm) - Length 0.1 -Post Debridement (cm) - Width 0.1 -Post Debridement (cm) - Depth 0.1 -Total Square (Post) (cm) 0.01 -Area of Debridement (cm) - Length -Area of Debridement (cm) - Width -Total Square (Area) (cm) -Tunneling No -Undermining/Tunneling No -Circular Undermining No -Wound/Ulcer Outcome Not Healed -Ulcer Cleansing Rinsed/ Irrigated with Saline -Foul Odor after Cleansing No -Bioengineered Tissue No -Bleeding Controlled with Pressure -Offloading No -Treatment Response Procedure Tolerated Well -Debridement - Subq, 1st 20sq cm Pain Scale: 0-10 Numeric Is Patient Pain Free? Yes WC - Nurse 3 - General Ulcer D/C NN Start: 02/14/21 13:41 Freq: Status: Active Protocol: Activity Type Activity Date Activity User E-Sign Co-Sign Detail Recorded Client Recorded Date Recorded By Document 02/14/21 14:51 ML [id number] 02/14/21 14:53 ML Document 02/21/21 14:43 BMF [id number] 02/21/21 14:50 BMF Document 02/28/21 14:28 JF [id number] 02/28/21 14:29 JF Document 03/07/21 14:59 RB [id number] 03/07/21 15:00 RB 02/14/21 02/21/21 02/28/21 14:51 14:43 14:28 Wound Care Nurse 3 # 3 LEFT HIP -Ulcer Cleansing Rinsed/ Rinsed/ Rinsed/ Irrigated with Irrigated with Irrigated with Saline Saline Saline -Foul Odor after Cleansing No No No -Primary Dressing Applied Other Enzymatic -Other Dressing santyl,adaptic, SANTYL; DRSG foam dressing PER [place] [employer] -Primary Dressing Covered/Secured with Other Dry Gauze, Secured with Tape -Other Covering SILICONE BORDER DRSG -Silvercel #2- R HIP -Ulcer Cleansing Rinsed/ Rinsed/ Rinsed/ Irrigated with Irrigated with Irrigated with Saline Saline Saline -Foul Odor after Cleansing No No No -Primary Dressing Applied Silvercel Aquacel AG 4x4, Silvercel Other -Other Dressing foam dressing EXCEL SAP BORDER DRSG; DRSG PER [place] [employer] INST[employer] -Primary Dressing Covered/Secured with Dry Gauze, Secured with Tape -Other Covering -Aquacel AG 4x4 0 -Silvercel 1 1 #1 Sacral -Ulcer Cleansing Rinsed/ Rinsed/ Rinsed/ Irrigated with Irrigated with Irrigated with Saline Saline Saline -Foul Odor after Cleansing No No No -Primary Dressing Applied [place] Aquacel AG 4x4, [place]cel Other -Other Dressing foam dressing EXCEL SAP BORDER; DRSGS PER [place] DISH NETWORK IN[employer]ER -Primary Dressing Covered/Secured with Dry Gauze, Secured with Tape -Aquacel AG 4x4 1 -Silvercel 0 0 Treatment Response Procedure Tolerated Well Pain Scale: 0-10 Numeric Is Patient Pain Free? Yes Yes WC - Visit Discharge Discharge Condition Stable Stable Stable Ambulatory Status Wheelchair Wheelchair Wheelchair Transportation Private Auto Private Auto Private Auto Accompanied by SISTER IN LAW BOGDAN Medication Reconcilliation completed & No Yes provided to patient/care provider Clinical Summary of Care Provided Yes Yes Facility Type Home Health 03/07/21 14:59 Wound Care Nurse 3 # 3 LEFT HIP -Ulcer Cleansing Rinsed/ Irrigated with Saline -Foul Odor after Cleansing -Primary Dressing Applied Silvercel -Other Dressing abd -Primary Dressing Covered/Secured with Dry Gauze, Secured with Tape -Other Covering -Silvercel 1 #2- R HIP -Ulcer Cleansing -Foul Odor after Cleansing -Primary Dressing Applied -Other Dressing silvercel -Primary Dressing Covered/Secured with Dry Gauze, Secured with Tape -Other Covering abd -Aquacel AG 4x4 -Silvercel #1 Sacral -Ulcer Cleansing Rinsed/ Irrigated with Saline -Foul Odor after Cleansing -Primary Dressing Applied NonAdherent Contact Layer -Other Dressing -Primary Dressing Covered/Secured with Dry Gauze, Secured with Tape -Aquacel AG 4x4 -Silvercel Treatment Response Procedure Tolerated Well Pain Scale: 0-10 Numeric Is Patient Pain Free? Yes WC - Visit Discharge Discharge Condition Stable Ambulatory Status Stretcher Transportation Private Auto Accompanied by Medication Reconcilliation completed & No provided to patient/care provider Clinical Summary of Care Provided Yes Facility Type Assessment/Plan Assessment/Plan (1) Sacral decubitus ulcer: CODE(S): L89.159 - Pressure ulcer of sacral region, unspecified stage QUALIFIERS: Pressure injury stage: stage 4 Qualified Code(s): L89.154 - Pressure ulcer of sacral region, stage 4 (2) Multiple sclerosis: CODE(S): G35 - Multiple sclerosis (3) Debility: CODE(S): R53.81 - Other malaise (4) Pressure injury of left hip, unstageable: CODE(S): L89.220 - Pressure ulcer of left hip, unstageable (5) Pressure injury of right hip, stage 4: CODE(S): L89.214 - Pressure ulcer of right hip, stage 4 PLAN: Debridement done as documented above, procedure was well-tolerated. Cultures of her left hip showed E. coli and multiple skin contaminants, patient currently on a course of Bactrim and is tolerating this well. X-ray ordered of the sacrum previously which was negative for osteomyelitis. X-ray was ordered of the right hip which was negative, x-ray of the left hip could not exclude osteomyelitis and therefore an MRI is pending. For wound care will do silver cell to the stage IV pressure injury to the right/left hip and Adaptic cover and foam dressing stage IV sacral pressure injury. Offloading recommended, a Roho cushion was ordered as patient is wheelchair-bound. We will also start the process of ordering an offloading low air loss mattress hospital bed at this time. Patient is currently utilizing a air loss mattress that she ordered online. She states that she will change positions as often as possible, however admits to sitting in her chair in 1 position for most of the day. I discussed intermediate with the patient and she continues to decline at this time. Increased protein intake, vitamin C and Zinc also recommended. Labs ordered,pending results. We will also refer for a surgical consult given the depth of her right hip pressure injury. May benefit from surgical debridement. Her questions were answered and she was advised to call with any further questions or concerns. Follow-up in 1 week with myself. This note was generated with [employer] dictation software. It may contain incorrect words, spelling, and punctuation that were not noted in checking the note before signing.
--- NOTE | 2021-03-12 11:18 | PN.PCM_ITS ---
History of Present Illness Date of Service: 03/07/21 Chief Complaint: Nonhealing sacral ulcer History of Wound: Ms. Byrnes is a 55-year-old who presents to the wound center due to nonhealing sacral ulcer. History of multiple sclerosis and has been wheelchair-bound for about 16 years. Ulcer noted about a month ago. Has been applying Adaptic and Aquacel to ulcer without any significant improvement. Was seen recently at the emergency room due to concerns by home health nurse for worsening ulcer. Started on antibiotics but she has noted no significant improvement. Foul smell. No significant drainage reported. Denies chills, fever or otherwise feeling of unwell. Progress of Wound: Patient sacral ulcer is improving in size. She still admits to not offloading properly to her bilateral hips and remaining in her chair for the majority of the day. These wounds have been continuously deteriorating. Patient is not open to retirement care or home health referral. She is utilizing a Roho cushion. Her hip pressure ulcers have deteriorated and her right hip pressure injury is now opened up and is a stage IV down into the muscle fascia left hip is now a stage IV pressure injury as well, imaging was ordered prior and could not exclude osteomyelitis and therefore an MRI was ordered. Imaging was reviewed from the right hip and was within normal limits Objective Data Objective Data Vital Signs: Vital Signs Temp Pulse Resp BP 98.2 F 77 16 109/46 L 03/07/21 13:47 03/07/21 13:47 03/07/21 13:47 03/07/21 13:47 Oxygen Delivery Method Room Air Lab / Micro Data Micro: Microbiology 03/01/21 14:10 Wound Abcess - Hip Gram Stain - Final 03/01/21 14:10 Wound Abcess - Hip Wound Culture - Final Escherichia coli Serratia marcescens Enterococcus faecalis 03/01/21 14:10 Wound Abcess - Hip Anaerobic Culture - Final No anaerobic bacteria isolated. Charges/Coding Procedures Integumentary [id number]: [id number] Natalia musc/fascia 20 sq cm/< Physical Exam Const alert, oriented x3 and no apparent distress General Appearance: cooperative and comfortable HEENT normocephalic and head/scalp atraumatic Head and Scalp: normal to inspection, normocephalic and atraumatic Eyes EOMs intact bilaterally Neck full ROM General: normal visual inspection Resp normal respiratory effort Effort and Inspection: able to speak in complete sentences Extremity normal to inspection Skin Wound Narrative: Stage IV pressure injury to sacrum almost completely healed, no signs of obvious infection at this time, stage IV pressure injury to right and left hip with adherent slough, and muscle fascia exposed, no signs of obvious infection at this time, Neuro oriented x3, CN's II-XII intact bilaterally and moves all extremities Psych mental status grossly normal Appearance: grossly normal Attitude: calm Speech: normal speech Debridement Note Debridement Note Wound debrided: Stage IV pressure injury to hips bilateral Laterality: Right Type of Debridement: Excisional debridement Anesthesia Used: 5% Lidocaine Gel Depth: in the subcutaneous layer and to muscle Percentage of wound debrided: 100 Instrument Used: 5mm curette and #11 blade Tissue Removed: Slough, eschar, devitalized tissue Severity: Necrosis of Muscle Amount of bleeding with debridement: Mild Bleeding Controlled with: Pressure Patient tolerated procedure: Patient tolerated procedure well Post-Debridement Measurements and Additional Note: Post-Debridement Measurements/Treatment - Nurse 1 - General Ulcer Assessment Start: 02/14/21 13:41 Freq: Status: Active Protocol: ASHLEY Activity Type Activity Date Activity User E-Sign Co-Sign Detail Recorded Client Recorded Date Recorded By Document 02/14/21 13:41 [id number] 02/14/21 13:50 ML Document 02/21/21 13:52 [facility] [id number] 02/21/21 14:02 [facility] Document 02/28/21 13:42 [place] [id number] 02/28/21 13:50 [place] Document 03/07/21 13:47 [facility] [id number] 03/07/21 13:57 [facility] 02/14/21 02/21/21 02/28/21 13:41 13:52 13:42 - Today's Visit Information Type of service Follow-up Visit Follow-up Visit Follow-up Visit (Physician/TUBE DEPATCHER (Physician/TUBE DEPATCHER (Physician/TUBE DEPATCHER ) ) ) Arrival Mode Wheelchair Wheelchair Wheelchair Transfer Assistance Manual Manual Transfer Assist (Other) 2 MANUAL Accompanied by SISTER IN LAW Patient Identification Verified (Name & Yes Yes Yes ) Patient Requires Transmission-Based No No No Precautions Safety Precautions NA NA Vital Signs Temperature (97.8 F-99.1 F) 96.9 F L 97.1 F L 96.9 F L Temperature Source Temporal Temporal Temporal Pulse Rate (60-100) 82 73 73 Pulse Location Monitor Monitor Monitor Respiratory Rate (12-18) 16 16 Respiratory rate source Observation Observation Oxygen Delivery Method Room Air Blood Pressure (90/60-120/80) 105/87 H 96/64 104/75 Blood Pressure Mean (mm Hg) 93 74 84 Source Monitor Monitor Monitor Position Sitting Sitting Blood Pressure Location Left Arm Right Arm History Since Last Visit- (Skip if this is Patient's initial visit) Have you changed medications since your No No No last visit? Any new allergies or adverse reactions No No No Had a fall/change in ADL's that may No No No increase risk of falls Signs or symptoms of abuse and/or No No No neglect since last visit Have you been in the hospital since your No No No last visit? Has dressing in place as prescribed Yes Yes Yes Has compression in place as prescribed N/A N/A N/A Has offloadiing in place as prescribed N/A N/A Yes Experienced any changes in pain level or No No No management Left Footwear Regular Shoe Slipper Slipper Right Footwear Regular Shoe Slipper Slipper Pain Scale: 0-10 Numeric Is Patient Pain Free? Yes 03/07/21 13:47 WC - Today's Visit Information Type of service Follow-up Visit (Physician/TUBE DEPATCHER ) Arrival Mode Wheelchair Transfer Assistance Manual Transfer Assist (Other) Accompanied by Patient Identification Verified (Name & Yes ) Patient Requires Transmission-Based No Precautions Safety Precautions Vital Signs Temperature (97.8 F-99.1 F) 98.2 F Temperature Source Temporal Pulse Rate (60-100) 77 Pulse Location Monitor Respiratory Rate (12-18) 16 Respiratory rate source Observation Oxygen Delivery Method Room Air Blood Pressure (90/60-120/80) 109/46 L Blood Pressure Mean (mm Hg) 67 Source Monitor Position Sitting Blood Pressure Location Right Arm History Since Last Visit- (Skip if this is Patient's initial visit) Have you changed medications since your No last visit? Any new allergies or adverse reactions No Had a fall/change in ADL's that may No increase risk of falls Signs or symptoms of abuse and/or No neglect since last visit Have you been in the hospital since your No last visit? Has dressing in place as prescribed Yes Has compression in place as prescribed N/A Has offloadiing in place as prescribed N/A Experienced any changes in pain level or No management Left Footwear Right Footwear Pain Scale: 0-10 Numeric Is Patient Pain Free? Yes WC - Nurse 1 - General Ulcer Measurement Start: 02/14/21 13:41 Freq: Status: Active Protocol: Activity Type Activity Date Activity User E-Sign Co-Sign Detail Recorded Client Recorded Date Recorded By Document 02/14/21 13:41 ML [id number] 02/14/21 13:50 ML Document 02/21/21 13:52 BMF [id number] 02/21/21 14:02 BMF Document 02/28/21 13:42 AK [id number] 02/28/21 13:50 AK Document 03/07/21 13:47 BMF [id number] 03/07/21 13:57 BMF 02/14/21 02/21/21 02/28/21 13:41 13:52 13:42 Wound Center Nurse 1 # 3 LEFT HIP -Combined with other wound No No -Current Size (cm) - Length 3 3.5 3.9 -Current Size (cm) - Width 3.1 3.6 3.6 -Current Size (cm) - Depth 0.1 0.1 0.4 -Total Square Cm 9.3 12.60 14.04 -Photo Taken No No -Epithelialization None Present Small 1-33% -Tunneling No No -Undermining/Tunneling No No -Circular Undermining No No -Change in Wound Grade/Stage No -Exudate Amt Large Medium Medium -Exudate Type Serosanguineous Serosanguineous Yellow/Green -Wound Margin Distinct, Distinct, Distinct, Outline Outline Outline Attached Attached Attached -Granulation Amt Medium (34-66%) None Present (0 Small (1-33%) %) -Granulation Quality [place] -Slough/Fibrin Yes Yes Yes -Necrosis Amt Medium (34-66%) Large (67-100%) Large (67-100%) -Necrotic Tissue Type Eschar Eschar Eschar -Texture (Cydney-wound Skin Appearance) Assessed Assessed, No Abnormality, Localized Edema Assessed ,Scarring -Moisture (Cydney-wound Skin Appearance) Assessed Assessed No Abnormality, Assessed -Color ([place]ydney-wound Skin Appearance) Assessed Assessed, No Abnormality, Erythema Assessed -Temperature (Cydney-wound Skin No Abnormality No Abnormality No Abnormality Appearance) (Pt Warm) (Pt Warm) (Pt Warm) -Tenderness on Palpation (Cydney-wound No No Yes Skin Appearance) -Ulcer Cleansing Rinsed/ Rinsed/ Rinsed/ Irrigated with Irrigated with Irrigated with Saline Saline Saline -Foul Odor after Cleansing No No No -Anesthetic Used 5% Lidocaine 4% Lidocaine 4% Lidocaine Gel Solution Solution -Wound Comment(s) #2- R HIP -Combined with other wound No No -Current Size (cm) - Length 3 3.6 2.8 -Current Size (cm) - Width 3.5 2.8 2.5 -Current Size (cm) - Depth 0.3 1 0.3 -Total Square Cm 10.5 10.08 7.00 -Photo Taken No No -Epithelialization None Present Small 1-33% -Tunneling No No -Undermining/Tunneling Yes Yes Yes -Undermining/Tunneling Starts (O'clock 12 12 12 ) -Undermining/Tunneling Ends (O'clock) 1 12 3 -Maximum Distance (cm) 0.9 0.8 0.5 -Circular Undermining Yes No -Change in Wound Grade/Stage No -Exudate Amt Medium Large Large -Exudate Type Serosanguineous Serosanguineous Yellow/Green -Wound Margin Distinct, Distinct, Thickened & Outline Outline Rolled Under Attached Attached -Granulation Amt Medium (34-66%) None Present (0 Medium (34-66%) %) -Granulation Quality Bred[place] -Slough/Fibrin Yes Yes Yes -Necrosis Amt Large (67-100%) Medium (34-66%) -Necrotic Tissue Type Adherent Slough Adherent Slough Adherent Slough -Structure Exposed N/A -Texture (Cydney-wound Skin Appearance) Assessed Assessed, No Abnormality, Scarring Assessed -Moisture ([place]ydney-wound Skin Appearance) Assessed Assessed No Abnormality, Assessed -Color ([place]ydney-wound Skin Appearance) Assessed Assessed, No Abnormality, Erythema Assessed -Temperature (Cydney-wound Skin No Abnormality No Abnormality No Abnormality Appearance) (Pt Warm) (Pt Warm) (Pt Warm) -Tenderness on Palpation (Cydney-wound No No No Skin Appearance) -Ulcer Cleansing Rinsed/ Rinsed/ Rinsed/ Irrigated with Irrigated with Irrigated with Saline Saline Saline -Foul Odor after Cleansing No No No -Anesthetic Used 5% Lidocaine 4% Lidocaine 4% Lidocaine Gel Solution Solution #1 Sacral -Combined with other wound No No -Current Size (cm) - Length 1.5 1.8 1.5 -Current Size (cm) - Width 1.7 1.7 0.5 -Current Size (cm) - Depth 0.2 0.1 0.1 -Total Square Cm 2.55 3.06 0.75 -Photo Taken No No -Epithelialization Small 1-33% -Tunneling No No -Undermining/Tunneling No No -Circular Undermining No No -Exudate Amt Medium Medium Small -Exudate Type Serosanguineous Serosanguineous Serosanguineous -Wound Margin Distinct, Flat & Intact Distinct, Outline Outline Attached Attached -Granulation Amt Medium (34-66%) Small (1-33%) None Present (0 %) -Granulation Quality [place]red[place] N/A -Slough/Fibrin Yes Yes Yes -Necrosis Amt Medium (34-66%) Large (67-100%) Small (1-33%) -Necrotic Tissue Type Adherent Slough Adherent Slough -Structure Exposed N/A -Texture (Cydney-wound Skin Appearance) Assessed Assessed, Assessed, Scarring Scarring -Moisture (Cydney-wound Skin Appearance) Assessed Assessed No Abnormality, Assessed -Color (Cydney-wound Skin Appearance) Assessed Assessed No Abnormality, Assessed -Temperature (Cydney-wound Skin No Abnormality No Abnormality No Abnormality Appearance) (Pt Warm) (Pt Warm) (Pt Warm) -Tenderness on Palpation (Cydney-wound Yes No No Skin Appearance) -Ulcer Cleansing Rinsed/ Rinsed/ Rinsed/ Irrigated with Irrigated with Irrigated with Saline Saline Saline -Foul Odor after Cleansing No No No -Anesthetic Used 5% Lidocaine 4% Lidocaine 4% Lidocaine Gel Solution Solution 03/07/21 13:47 Wound Center Nurse 1 # 3 LEFT HIP -Combined with other wound No -Current Size (cm) - Length 3.5 -Current Size (cm) - Width 5.5 -Current Size (cm) - Depth 1.1 -Total Square Cm 19.25 -Photo Taken No -Epithelialization None Present -Tunneling No -Undermining/Tunneling No -Circular Undermining No -Change in Wound Grade/Stage -Exudate Amt Large -Exudate Type Serosanguineous -Wound Margin Distinct, Outline Attached -Granulation Amt Small (1-33%) -Granulation Quality Red -Slough/Fibrin Yes -Necrosis Amt Large (67-100%) -Necrotic Tissue Type Adherent Slough -Texture (Cydney-wound Skin Appearance) Assessed, Localized Edema ,Scarring -Moisture (Cydney-wound Skin Appearance) Assessed -Color ([place]ydney-wound Skin Appearance) Assessed, Erythema -Temperature (Cydney-wound Skin No Abnormality Appearance) (Pt Warm) -Tenderness on Palpation (Cydney-wound No Skin Appearance) -Ulcer Cleansing Soap and Water -Foul Odor after Cleansing No -Anesthetic Used 4% Lidocaine Solution -Wound Comment(s) SLIGHT ODOR AFTER CLEANSING #2- R HIP -Combined with other wound No -Current Size (cm) - Length 2.8 -Current Size (cm) - Width 3.3 -Current Size (cm) - Depth 1.2 -Total Square Cm 9.24 -Photo Taken -Epithelialization None Present -Tunneling No -Undermining/Tunneling Yes -Undermining/Tunneling Starts (O'clock 12 ) -Undermining/Tunneling Ends (O'clock) 12 -Maximum Distance (cm) 1.5 -Circular Undermining Yes -Change in Wound Grade/Stage -Exudate Amt Large -Exudate Type Serosanguineous -Wound Margin Distinct, Outline Attached -Granulation Amt Small (1-33%) -Granulation Quality Red -Slough/Fibrin Yes -Necrosis Amt Large (67-100%) -Necrotic Tissue Type Adherent Slough -Structure Exposed -Texture (Cydney-wound Skin Appearance) Assessed, Localized Edema ,Scarring -Moisture (Cydney-wound Skin Appearance) Assessed -Color ([place]ydney-wound Skin Appearance) Assessed, Erythema -Temperature ([place]ydney-wound Skin No Abnormality Appearance) (Pt Warm) -Tenderness on Palpation (Cydney-wound No Skin Appearance) -Ulcer Cleansing Soap and Water -Foul Odor after Cleansing No -Anesthetic Used 4% Lidocaine Solution #1 Sacral -Combined with other wound No -Current Size (cm) - Length 0.1 -Current Size (cm) - Width 0.1 -Current Size (cm) - Depth 0.1 -Total Square Cm 0.01 -Photo Taken -Epithelialization Large 67-100% -Tunneling No -Undermining/Tunneling No -Circular Undermining No -Exudate Amt Medium -Exudate Type Serosanguineous -Wound Margin Flat & Intact -Granulation Amt Large (67-100%) -Granulation Quality Bred[place] -Slough/Fibrin No -Necrosis Amt None Present (0 %) -Necrotic Tissue Type -Structure Exposed -Texture (Cydney-wound Skin Appearance) Assessed, Scarring -Moisture (Cydney-wound Skin Appearance) Assessed -Color (Cydney-wound Skin Appearance) Assessed -Temperature (Cydney-wound Skin No Abnormality Appearance) (Pt Warm) -Tenderness on Palpation (Cydney-wound No Skin Appearance) -Ulcer Cleansing Soap and Water -Foul Odor after Cleansing No -Anesthetic Used 4% Lidocaine Solution WC - Nurse 2 - General Ulcer CM Notes Start: 02/14/21 13:41 Freq: Status: Active Protocol: Activity Type Activity Date Activity User E-Sign Co-Sign Detail Recorded Client Recorded Date Recorded By Document 02/14/21 14:05 MW [id number] 02/14/21 14:18 MW Document 02/21/21 14:21 JF [id number] 02/21/21 14:29 JF Edit Result 02/21/21 14:21 JF (1) [id number] 02/24/21 15:25 PL Document 02/28/21 14:03 MW [id number] 02/28/21 14:16 MW Document 03/07/21 14:21 MW [id number] 03/07/21 14:32 MW (1) # 3 LEFT HIP - Debridement, SubQ, ea addt'l 20sq cm => 1 or part thereof 02/14/21 02/21/21 02/28/21 14:05 14:21 14:03 Wound Center Nurse 2 # 3 LEFT HIP -Time 14:07 14:22 14:08 -Correct Patient Yes Yes Yes -Correct Side, Site, Position Yes Yes Yes -Correct Procedure Yes Yes Yes -Procedure Performed Yes Yes Yes -Type of Procedure Debridement Debridement Debridement -Clinical Debridement Subcutaneous Subcutaneous Subcutaneous -Tissue Removed Subcutaneous Subcutaneous Subcutaneous -Post Debridement (cm) - Length 5.0 4.0 4.5 -Post Debridement (cm) - Width 4.0 4.5 4.5 -Post Debridement (cm) - Depth 0.1 0.1 0.3 -Total Square (Post) (cm) 20.00 18.00 20.25 -Area of Debridement (cm) - Length 5.0 4 4.5 -Area of Debridement (cm) - Width 4.0 4.5 4.5 -Total Square (Area) (cm) 20.00 18.0 20.25 -Tunneling No No No -Undermining/Tunneling No No No -Circular Undermining No No No -Wound/Ulcer Outcome Not Healed Not Healed Not Healed -Ulcer Cleansing Rinsed/ Rinsed/ Rinsed/ Irrigated with Irrigated with Irrigated with Saline Saline Saline -Foul Odor after Cleansing No No No -Bioengineered Tissue No No No -Bleeding Controlled with Pressure Pressure Pressure -Offloading No No No -Treatment Response Procedure Procedure Procedure Tolerated Well Tolerated Well Tolerated Well -Debridement - Subq, 1st 20sq cm Yes Yes Yes -Debridement, SubQ, ea addt'l 20sq cm 1 1 1 or part thereof -Debridement - Muscle / Fascia, 1st 20sq cm -Debridement, Muscle/Fascia, ea addt'l 20sq cm or part thereof #2- R HIP -Time 14:08 14:22 14:15 -Correct Patient Yes Yes Yes -Correct Side, Site, Position Yes Yes Yes -Correct Procedure Yes Yes Yes -Procedure Performed Yes Yes Yes -Type of Procedure Debridement Debridement Debridement -Clinical Debridement Muscle / Fascia Muscle / Fascia Muscle / Fascia -Tissue Removed Muscle,Fascia Muscle Muscle,Fascia -Post Debridement (cm) - Length 3.5 4.0 4.0 -Post Debridement (cm) - Width 4.5 4.5 3.0 -Post Debridement (cm) - Depth 2.0 1.6 1.5 -Total Square (Post) (cm) 15.75 18.00 12.00 -Area of Debridement (cm) - Length 3.5 4.0 4.0 -Area of Debridement (cm) - Width 4.5 4.5 3.0 -Total Square (Area) (cm) 15.75 18.00 12.00 -Tunneling No No No -Undermining/Tunneling Yes Yes No -Undermining/Tunneling Starts (O'clock 12 1 ) -Undermining/Tunneling Ends (O'clock) 6 6 -Maximum Distance (cm) 1.0 1.5 -Circular Undermining No No No -Wound/Ulcer Outcome Not Healed Not Healed Not Healed -Ulcer Cleansing Rinsed/ Rinsed/ Rinsed/ Irrigated with Irrigated with Irrigated with Saline Saline Saline -Foul Odor after Cleansing No No No -Bioengineered Tissue No No No -Bleeding Controlled with Pressure Pressure Pressure -Offloading No No No -Treatment Response Procedure Procedure Procedure Tolerated Well Tolerated Well Tolerated Well -Debridement - Subq, 1st 20sq cm No -Debridement - Muscle / Fascia, 1st Yes Yes Yes 20sq cm #1 Sacral -Time 14:08 14:23 14:06 -Correct Patient Yes Yes Yes -Correct Side, Site, Position Yes Yes Yes -Correct Procedure Yes Yes Yes -Procedure Performed Yes Yes Yes -Type of Procedure Debridement Debridement Debridement -Clinical Debridement Subcutaneous Subcutaneous Subcutaneous -Tissue Removed Subcutaneous Subcutaneous Subcutaneous -Post Debridement (cm) - Length 2.0 1.5 1.5 -Post Debridement (cm) - Width 0.5 1.5 0.6 -Post Debridement (cm) - Depth 0.2 0.3 0.1 -Total Square (Post) (cm) 1.00 2.25 0.90 -Area of Debridement (cm) - Length 2.0 1.5 1.5 -Area of Debridement (cm) - Width 0.5 1.5 0.6 -Total Square (Area) (cm) 1.00 2.25 0.90 -Tunneling No No No -Undermining/Tunneling No No No -Circular Undermining No No No -Wound/Ulcer Outcome Not Healed Not Healed Not Healed -Ulcer Cleansing Rinsed/ Rinsed/ Rinsed/ Irrigated with Irrigated with Irrigated with Saline Saline Saline -Foul Odor after Cleansing No No No -Bioengineered Tissue No No No -Bleeding Controlled with Pressure Pressure Pressure -Offloading No No No -Treatment Response Procedure Procedure Procedure Tolerated Well Tolerated Well Tolerated Well -Debridement - Subq, 1st 20sq cm No No No Pain Scale: 0-10 Numeric Is Patient Pain Free? Yes Yes Yes 03/07/21 14:21 Wound Center Nurse 2 # 3 LEFT HIP -Time 14:21 -Correct Patient Yes -Correct Side, Site, Position Yes -Correct Procedure Yes -Procedure Performed Yes -Type of Procedure Debridement -Clinical Debridement Muscle / Fascia -Tissue Removed Muscle,Fascia -Post Debridement (cm) - Length 4.5 -Post Debridement (cm) - Width 4.5 -Post Debridement (cm) - Depth 1.5 -Total Square (Post) (cm) 20.25 -Area of Debridement (cm) - Length 4.5 -Area of Debridement (cm) - Width 4.5 -Total Square (Area) (cm) 20.25 -Tunneling No -Undermining/Tunneling No -Circular Undermining No -Wound/Ulcer Outcome Not Healed -Ulcer Cleansing Rinsed/ Irrigated with Saline -Foul Odor after Cleansing No -Bioengineered Tissue No -Bleeding Controlled with Pressure -Offloading No -Treatment Response Procedure Tolerated Well -Debridement - Subq, 1st 20sq cm -Debridement, SubQ, ea addt'l 20sq cm or part thereof -Debridement - Muscle / Fascia, 1st Yes 20sq cm -Debridement, Muscle/Fascia, ea addt'l 1 20sq cm or part thereof #2- R HIP -Time 14:21 -Correct Patient Yes -Correct Side, Site, Position Yes -Correct Procedure Yes -Procedure Performed Yes -Type of Procedure Debridement -Clinical Debridement Muscle / Fascia -Tissue Removed Muscle,Fascia -Post Debridement (cm) - Length 3.5 -Post Debridement (cm) - Width 2.2 -Post Debridement (cm) - Depth 2.2 -Total Square (Post) (cm) 7.70 -Area of Debridement (cm) - Length 3.5 -Area of Debridement (cm) - Width 2.2 -Total Square (Area) (cm) 7.70 -Tunneling No -Undermining/Tunneling Yes -Undermining/Tunneling Starts (O'clock 1 ) -Undermining/Tunneling Ends (O'clock) 7 -Maximum Distance (cm) 1.7 -Circular Undermining No -Wound/Ulcer Outcome Not Healed -Ulcer Cleansing Rinsed/ Irrigated with Saline -Foul Odor after Cleansing No -Bioengineered Tissue No -Bleeding Controlled with Pressure -Offloading No -Treatment Response Procedure Tolerated Well -Debridement - Subq, 1st 20sq cm -Debridement - Muscle / Fascia, 1st No 20sq cm #1 Sacral -Time 14:22 -Correct Patient Yes -Correct Side, Site, Position Yes -Correct Procedure Yes -Procedure Performed No -Type of Procedure -Clinical Debridement -Tissue Removed -Post Debridement (cm) - Length 0.1 -Post Debridement (cm) - Width 0.1 -Post Debridement (cm) - Depth 0.1 -Total Square (Post) (cm) 0.01 -Area of Debridement (cm) - Length -Area of Debridement (cm) - Width -Total Square (Area) (cm) -Tunneling No -Undermining/Tunneling No -Circular Undermining No -Wound/Ulcer Outcome Not Healed -Ulcer Cleansing Rinsed/ Irrigated with Saline -Foul Odor after Cleansing No -Bioengineered Tissue No -Bleeding Controlled with Pressure -Offloading No -Treatment Response Procedure Tolerated Well -Debridement - Subq, 1st 20sq cm Pain Scale: 0-10 Numeric Is Patient Pain Free? Yes WC - Nurse 3 - General Ulcer D/C NN Start: 02/14/21 13:41 Freq: Status: Active Protocol: Activity Type Activity Date Activity User E-Sign Co-Sign Detail Recorded Client Recorded Date Recorded By Document 02/14/21 14:51 ML [id number] 02/14/21 14:53 ML Document 02/21/21 14:43 BMF [id number] 02/21/21 14:50 BMF Document 02/28/21 14:28 JF [id number] 02/28/21 14:29 JF Document 03/07/21 14:59 RB [id number] 03/07/21 15:00 RB 02/14/21 02/21/21 02/28/21 14:51 14:43 14:28 Wound Care Nurse 3 # 3 LEFT HIP -Ulcer Cleansing Rinsed/ Rinsed/ Rinsed/ Irrigated with Irrigated with Irrigated with Saline Saline Saline -Foul Odor after Cleansing No No No -Primary Dressing Applied Other Enzymatic -Other Dressing santyl,adaptic, SANTYL; DRSG foam dressing PER [employer]FF WORKER -Primary Dressing Covered/Secured with Other Dry Gauze, Secured with Tape -Other Covering SILICONE BORDER DRSG -Silvercel #2- R HIP -Ulcer Cleansing Rinsed/ Rinsed/ Rinsed/ Irrigated with Irrigated with Irrigated with Saline Saline Saline -Foul Odor after Cleansing No No No -Primary Dressing Applied Silvercel Aquacel AG 4x4, Silvercel Other -Other Dressing foam dressing EXCEL SAP BORDER DRSG; DRSG PER [employer] STAFF WORKER -Primary Dressing Covered/Secured with Dry Gauze, Secured with Tape -Other Covering -Aquacel AG 4x4 0 -Silvercel 1 1 #1 Sacral -Ulcer Cleansing Rinsed/ Rinsed/ Rinsed/ Irrigated with Irrigated with Irrigated with Saline Saline Saline -Foul Odor after Cleansing No No No -Primary Dressing Applied Silvercel Aquacel AG 4x4, Silvercel Other -Other Dressing foam dressing EXCEL SAP BORDER; DRSGS PER [place] [employer] STAFF WORKER -Primary Dressing Covered/Secured with Dry Gauze, Secured with Tape -Aquacel AG 4x4 1 -Silvercel 0 0 Treatment Response Procedure Tolerated Well Pain Scale: 0-10 Numeric Is Patient Pain Free? Yes Yes WC - Visit Discharge Discharge Condition Stable Stable Stable Ambulatory Status Wheelchair Wheelchair Wheelchair Transportation Private Auto Private Auto Private Auto Accompanied by SISTER IN LAW BOGDAN Medication Reconcilliation completed & No Yes provided to patient/care provider Clinical Summary of Care Provided Yes Yes Facility Type Home Health 03/07/21 14:59 Wound Care Nurse 3 # 3 LEFT HIP -Ulcer Cleansing Rinsed/ Irrigated with Saline -Foul Odor after Cleansing -Primary Dressing Applied Silvercel -Other Dressing abd -Primary Dressing Covered/Secured with Dry Gauze, Secured with Tape -Other Covering -Silvercel 1 #2- R HIP -Ulcer Cleansing -Foul Odor after Cleansing -Primary Dressing Applied -Other Dressing silvercel -Primary Dressing Covered/Secured with Dry Gauze, Secured with Tape -Other Covering abd -Aquacel AG 4x4 -Silvercel #1 Sacral -Ulcer Cleansing Rinsed/ Irrigated with Saline -Foul Odor after Cleansing -Primary Dressing Applied NonAdherent Contact Layer -Other Dressing -Primary Dressing Covered/Secured with Dry Gauze, Secured with Tape -Aquacel AG 4x4 -Silvercel Treatment Response Procedure Tolerated Well Pain Scale: 0-10 Numeric Is Patient Pain Free? Yes WC - Visit Discharge Discharge Condition Stable Ambulatory Status Stretcher Transportation Private Auto Accompanied by Medication Reconcilliation completed & No provided to patient/care provider Clinical Summary of Care Provided Yes Facility Type Assessment/Plan Assessment/Plan (1) Sacral decubitus ulcer: CODE(S): L89.159 - Pressure ulcer of sacral region, unspecified stage QUALIFIERS: Pressure injury stage: stage 4 Qualified Code(s): L89.154 - Pressure ulcer of sacral region, stage 4 (2) Multiple sclerosis: CODE(S): G35 - Multiple sclerosis (3) Debility: CODE(S): R53.81 - Other malaise (4) Pressure injury of left hip, unstageable: CODE(S): L89.220 - Pressure ulcer of left hip, unstageable (5) Pressure injury of right hip, stage 4: CODE(S): L89.214 - Pressure ulcer of right hip, stage 4 PLAN: Debridement done as documented above, procedure was well-tolerated. Cultures of her left hip showed E. coli and multiple skin contaminants, patient currently on a course of Bactrim and is tolerating this well. X-ray ordered of the sacrum previously which was negative for osteomyelitis. X-ray was ordered of the right hip which was negative, x-ray of the left hip could not exclude osteomyelitis and therefore an MRI is pending. For wound care will do silver cell to the stage IV pressure injury to the right/left hip and Adaptic cover and foam dressing stage IV sacral pressure injury. Offloading recommended, a Roho cushion was ordered as patient is wheelchair-bound. We will also start the p rocess of ordering an offloading low air loss mattress hospital bed at this time. Patient is currently utilizing a air loss mattress that she ordered online. She states that she will change positions as often as possible, however admits to sitting in her chair in 1 position for most of the day. I discussed retirement with the patient and she continues to decline at this time. Increased protein intake, vitamin C and Zinc also recommended. Labs ordered,pending results. We will also refer for a surgical consult given the depth of her right hip pressure injury. May benefit from surgical debridement. Her questions were answered and she was advised to call with any further questions or concerns. Follow-up in 1 week with myself. This note was generated with [employer] dictation software. It may contain incorrect words, spelling, and punctuation that were not noted in checking the note before signing.
[2021-03-14 13:26] VITALS: BP 100/69; PULSE 76; RESP 18; TEMP 35.8
--- NOTE | 2021-03-14 20:33 | PCM.WC.PN ---
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 Byrnes is a 55-year-old who presents to the wound center due to nonhealing sacral ulcer. History of multiple sclerosis and has been wheelchair-bound for about 16 years. Ulcer noted about a month ago. Has been applying Adaptic and Aquacel to ulcer without any significant improvement. Was seen recently at the emergency room due to concerns by home health nurse for worsening ulcer. Started on antibiotics but she has noted no significant improvement. Foul smell. No significant drainage reported. Denies chills, fever or otherwise feeling of unwell. Patient also developed stage IV pressure injuries to the bilateral hips over the last couple of months due to offloading the sacral pressure injury. Progress of Wound: Patient sacral ulcer is stable in size. She still admits to not offloading properly to her bilateral hips and remaining in her chair for the majority of the day. These wounds have been continuously deteriorating. Patient is not open to fpc care or home health referral. She is utilizing a Roho cushion. Her hip pressure ulcers have deteriorated and her right hip pressure injury is now opened up and is a stage IV down into the muscle fascia left hip is now a stage IV pressure injury as well, imaging was ordered prior and could not exclude osteomyelitis and therefore an MRI was ordered which is pending. Imaging was reviewed from the right hip and was within normal limits Objective Data Objective Data Vital Signs: Vital Signs Temp Pulse Resp BP 96.5 F L 76 18 100/69 03/14/21 13:26 03/14/21 13:26 03/14/21 13:26 03/14/21 13:26 Oxygen Delivery Method Room Air Lab / Micro Data Micro: Microbiology 03/01/21 14:10 Wound Abcess - Hip Gram Stain - Final 03/01/21 14:10 Wound Abcess - Hip Wound Culture - Final Escherichia coli Serratia marcescens Enterococcus faecalis 03/01/21 14:10 Wound Abcess - Hip Anaerobic Culture - Final No anaerobic bacteria isolated. Charges/Coding Procedures Integumentary [id number]: [id number] Natalia musc/fascia 20 sq cm/< Physical Exam Const alert, oriented x3 and no apparent distress General Appearance: cooperative and comfortable HEENT normocephalic and head/scalp atraumatic Head and Scalp: normal to inspection, normocephalic and atraumatic Eyes EOMs intact bilaterally Neck full ROM General: normal visual inspection Resp normal respiratory effort Effort and Inspection: able to speak in complete sentences Extremity normal to inspection Skin Wound Narrative: Stage IV pressure injury to sacrum almost completely healed, no signs of obvious infection at this time, stage IV pressure injury to right and left hip with large amount of eschar and adherent slough, and muscle fascia exposed, moderate clear drainage, no warmth or streaking at this time, Neuro oriented x3 and moves all extremities Psych mental status grossly normal Appearance: grossly normal Attitude: calm Speech: normal speech Debridement Note Debridement Note Wound debrided: Stage IV pressure injury to bilateral hips Type of Debridement: Excisional debridement Anesthesia Used: 4% Lidocaine Solution and 5% Lidocaine Gel Depth: Down to and including healthy tissue, in the subcutaneous layer and to muscle Percentage of wound debrided: 100 Instrument Used: 5mm curette Tissue Removed: Slough and devitalized tissue Severity: Fat Layer Exposed Amount of bleeding with debridement: Mild Bleeding Controlled with: Pressure Patient tolerated procedure: Patient tolerated procedure well Post-Debridement Measurements and Additional Note: Post-Debridement Measurements/Treatment - Nurse 1 - General Ulcer Assessment Start: 02/14/21 13:41 Freq: Status: Active Protocol: ASHLEY Activity Type Activity Date Activity User E-Sign Co-Sign Detail Recorded Client Recorded Date Recorded By Document 02/14/21 13:41 ML [id number] 02/14/21 13:50 ML Document 02/21/21 13:52 [facility] [id number] 02/21/21 14:02 [facility] Document 02/28/21 13:42 AK [id number] 02/28/21 13:50 AK Document 03/07/21 13:47 [facility] [id number] 03/07/21 13:57 BM Document 03/14/21 13:26 DL [id number] 03/14/21 13:38 DL 02/14/21 02/21/21 02/28/21 13:41 13:52 13:42 - Today's Visit Information Type of service Follow-up Visit Follow-up Visit Follow-up Visit (Physician/STATE PATROL OFFICER (Physician/STATE PATROL OFFICER (Physician/STATE PATROL OFFICER ) ) ) Arrival Mode Wheelchair Wheelchair Wheelchair Transfer Assistance Manual Manual Transfer Assist (Other) 2 MANUAL Accompanied by SISTER IN LAW Patient Identification Verified (Name & Yes Yes Yes ) Patient Requires Transmission-Based No No No Precautions Safety Precautions NA NA Vital Signs Temperature (97.8 F-99.1 F) 96.9 F L 97.1 F L 96.9 F L Temperature Source Temporal Temporal Temporal Pulse Rate (60-100) 82 73 73 Pulse Location Monitor Monitor Monitor Respiratory Rate (12-18) 16 16 Respiratory rate source Observation Observation Oxygen Delivery Method Room Air Blood Pressure (90/60-120/80) 105/87 H 96/64 104/75 Blood Pressure Mean (mm Hg) 93 74 84 Source Monitor Monitor Monitor Position Sitting Sitting Blood Pressure Location Left Arm Right Arm History Since Last Visit- (Skip if this is Patient's initial visit) Have you changed medications since your No No No last visit? Any new allergies or adverse reactions No No No Had a fall/change in ADL's that may No No No increase risk of falls Signs or symptoms of abuse and/or No No No neglect since last visit Have you been in the hospital since your No No No last visit? Has dressing in place as prescribed Yes Yes Yes Has compression in place as prescribed N/A N/A N/A Has offloadiing in place as prescribed N/A N/A Yes Experienced any changes in pain level or No No No management Left Footwear Regular Shoe Slipper Slipper Right Footwear Regular Shoe Slipper Slipper Pain Scale: 0-10 Numeric Is Patient Pain Free? Yes 03/07/21 03/14/21 13:47 13:26 WC - Today's Visit Information Type of service Follow-up Visit Follow-up Visit (Physician/STATE PATROL OFFICER (Physician/STATE PATROL OFFICER ) ) Arrival Mode Wheelchair Wheelchair Transfer Assistance Manual None Transfer Assist (Other) Accompanied by Patient Identification Verified (Name & Yes Yes ) Patient Requires Transmission-Based No Precautions Safety Precautions Vital Signs Temperature (97.8 F-99.1 F) 98.2 F 96.5 F L Temperature Source Temporal Temporal Pulse Rate (60-100) 77 76 Pulse Location Monitor Monitor Respiratory Rate (12-18) 16 18 Respiratory rate source Observation Observation Oxygen Delivery Method Room Air Blood Pressure (90/60-120/80) 109/46 L 100/69 Blood Pressure Mean (mm Hg) 67 79 Source Monitor Monitor Position Sitting Blood Pressure Location Right Arm History Since Last Visit- (Skip if this is Patient's initial visit) Have you changed medications since your No No last visit? Any new allergies or adverse reactions No No Had a fall/change in ADL's that may No No increase risk of falls Signs or symptoms of abuse and/or No No neglect since last visit Have you been in the hospital since your No No last visit? Has dressing in place as prescribed Yes Yes Has compression in place as prescribed N/A N/A Has offloadiing in place as prescribed N/A Yes Experienced any changes in pain level or No No management Left Footwear Right Footwear Pain Scale: 0-10 Numeric Is Patient Pain Free? Yes Yes WC - Nurse 1 - General Ulcer Measurement Start: 02/14/21 13:41 Freq: Status: Active Protocol: Activity Type Activity Date Activity User E-Sign Co-Sign Detail Recorded Client Recorded Date Recorded By Document 02/14/21 13:41 ML [id number] 02/14/21 13:50 ML Document 02/21/21 13:52 BMF [id number] 02/21/21 14:02 BMF Document 02/28/21 13:42 AK [id number] 02/28/21 13:50 AK Document 03/07/21 13:47 BMF [id number] 03/07/21 13:57 BMF Document 03/14/21 13:26 DL [id number] 03/14/21 13:38 DL 02/14/21 02/21/21 02/28/21 13:41 13:52 13:42 Wound Center Nurse 1 # 3 LEFT HIP -Combined with other wound No No -Current Size (cm) - Length 3 3.5 3.9 -Current Size (cm) - Width 3.1 3.6 3.6 -Current Size (cm) - Depth 0.1 0.1 0.4 -Total Square Cm 9.3 12.60 14.04 -Photo Taken No No -Epithelialization None Present Small 1-33% -Tunneling No No -Undermining/Tunneling No No -Circular Undermining No No -Change in Wound Grade/Stage No -Exudate Amt Large Medium Medium -Exudate Type Serosanguineous Serosanguineous Yellow/Green -Wound Margin Distinct, Distinct, Distinct, Outline Outline Outline Attached Attached Attached -Granulation Amt Medium (34-66%) None Present (0 Small (1-33%) %) -Granulation Quality [place] -Slough/Fibrin Yes Yes Yes -Necrosis Amt Medium (34-66%) Large (67-100%) Large (67-100%) -Necrotic Tissue Type Eschar Eschar Eschar -Structure Exposed -Texture ([place]-wound Skin Appearance) Assessed Assessed, No Abnormality, Localized Edema Assessed ,Scarring -Moisture ([place]-wound Skin Appearance) Assessed Assessed No Abnormality, Assessed -Color ([place]-wound Skin Appearance) Assessed Assessed, No Abnormality, Erythema Assessed -Temperature ([place]-wound Skin No Abnormality No Abnormality No Abnormality Appearance) (Pt Warm) (Pt Warm) (Pt Warm) -Tenderness on Palpation ([place]-wound No No Yes Skin Appearance) -Ulcer Cleansing Rinsed/ Rinsed/ Rinsed/ Irrigated with Irrigated with Irrigated with Saline Saline Saline -Foul Odor after Cleansing No No No -Anesthetic Used 5% Lidocaine 4% Lidocaine 4% Lidocaine Gel Solution Solution -Wound Comment(s) #2- R HIP -Combined with other wound No No -Current Size (cm) - Length 3 3.6 2.8 -Current Size (cm) - Width 3.5 2.8 2.5 -Current Size (cm) - Depth 0.3 1 0.3 -Total Square Cm 10.5 10.08 7.00 -Photo Taken No No -Epithelialization None Present Small 1-33% -Tunneling No No -Undermining/Tunneling Yes Yes Yes -Undermining/Tunneling Starts (O'clock 12 12 12 ) -Undermining/Tunneling Ends (O'clock) 1 12 3 -Maximum Distance (cm) 0.9 0.8 0.5 -Circular Undermining Yes No -Change in Wound Grade/Stage No -Exudate Amt Medium Large Large -Exudate Type Serosanguineous Serosanguineous Yellow/Green -Wound Margin Distinct, Distinct, Thickened & Outline Outline Rolled Under Attached Attached -Granulation Amt Medium (34-66%) None Present (0 Medium (34-66%) %) -Granulation Quality [place] -Slough/Fibrin Yes Yes Yes -Necrosis Amt Large (67-100%) Medium (34-66%) -Necrotic Tissue Type Adherent Slough Adherent Slough Adherent Slough -Structure Exposed N/A -Texture ([place]-wound Skin Appearance) Assessed Assessed, No Abnormality, Scarring Assessed -Moisture ([place]-wound Skin Appearance) Assessed Assessed No Abnormality, Assessed -Color ([place]-wound Skin Appearance) Assessed Assessed, No Abnormality, Erythema Assessed -Temperature ([place]-wound Skin No Abnormality No Abnormality No Abnormality Appearance) (Pt Warm) (Pt Warm) (Pt Warm) -Tenderness on Palpation ([place]-wound No No No Skin Appearance) -Ulcer Cleansing Rinsed/ Rinsed/ Rinsed/ Irrigated with Irrigated with Irrigated with Saline Saline Saline -Foul Odor after Cleansing No No No -Anesthetic Used 5% Lidocaine 4% Lidocaine 4% Lidocaine Gel Solution Solution #1 Sacral -Combined with other wound No No -Current Size (cm) - Length 1.5 1.8 1.5 -Current Size (cm) - Width 1.7 1.7 0.5 -Current Size (cm) - Depth 0.2 0.1 0.1 -Total Square Cm 2.55 3.06 0.75 -Photo Taken No No -Epithelialization Small 1-33% -Tunneling No No -Undermining/Tunneling No No -Circular Undermining No No -Exudate Amt Medium Medium Small -Exudate Type Serosanguineous Serosanguineous Serosanguineous -Wound Margin Distinct, Flat & Intact Distinct, Outline Outline Attached Attached -Granulation Amt Medium (34-66%) Small (1-33%) None Present (0 %) -Granulation Quality [place] N/A -Slough/Fibrin Yes Yes Yes -Necrosis Amt Medium (34-66%) Large (67-100%) Small (1-33%) -Necrotic Tissue Type Adherent Slough Adherent Slough -Structure Exposed N/A -Texture ([place]-wound Skin Appearance) Assessed Assessed, Assessed, Scarring Scarring -Moisture ([place]-wound Skin Appearance) Assessed Assessed No Abnormality, Assessed -Color ([place]-wound Skin Appearance) Assessed Assessed No Abnormality, Assessed -Temperature ([place]-wound Skin No Abnormality No Abnormality No Abnormality Appearance) (Pt Warm) (Pt Warm) (Pt Warm) -Tenderness on Palpation ([place]-wound Yes No No Skin Appearance) -Ulcer Cleansing Rinsed/ Rinsed/ Rinsed/ Irrigated with Irrigated with Irrigated with Saline Saline Saline -Foul Odor after Cleansing No No No -Anesthetic Used 5% Lidocaine 4% Lidocaine 4% Lidocaine Gel Solution Solution 03/07/21 03/14/21 13:47 13:26 Wound Center Nurse 1 # 3 LEFT HIP -Combined with other wound No No -Current Size (cm) - Length 3.5 4.6 -Current Size (cm) - Width 5.5 5.1 -Current Size (cm) - Depth 1.1 0.9 -Total Square Cm 19.25 23.46 -Photo Taken No No -Epithelialization None Present None Present -Tunneling No No -Undermining/Tunneling No No -Circular Undermining No No -Change in Wound Grade/Stage -Exudate Amt Large Medium -Exudate Type Serosanguineous Serosanguineous -Wound Margin Distinct, Distinct, Outline Outline Attached Attached -Granulation Amt Small (1-33%) None Present (0 %) -Granulation Quality Red N/A -Slough/Fibrin Yes Yes -Necrosis Amt Large (67-100%) Large (67-100%) -Necrotic Tissue Type Adherent Slough Adherent Slough -Structure Exposed N/A -Texture ([place]-wound Skin Appearance) Assessed, No Abnormality, Localized Edema Assessed ,Scarring -Moisture ([place]-wound Skin Appearance) Assessed No Abnormality, Assessed -Color ([place]-wound Skin Appearance) Assessed, No Abnormality, Erythema Assessed -Temperature ([place]-wound Skin No Abnormality No Abnormality Appearance) (Pt Warm) (Pt Warm) -Tenderness on Palpation ([place]-wound No Yes Skin Appearance) -Ulcer Cleansing Soap and Water Soap and Water -Foul Odor after Cleansing No No -Anesthetic Used 4% Lidocaine 4% Lidocaine Solution Solution -Wound Comment(s) SLIGHT ODOR AFTER CLEANSING #2- R HIP -Combined with other wound No No -Current Size (cm) - Length 2.8 3.3 -Current Size (cm) - Width 3.3 2.5 -Current Size (cm) - Depth 1.2 0.5 -Total Square Cm 9.24 8.25 -Photo Taken No -Epithelialization None Present None Present -Tunneling No No -Undermining/Tunneling Yes No -Undermining/Tunneling Starts (O'clock 12 ) -Undermining/Tunneling Ends (O'clock) 12 -Maximum Distance (cm) 1.5 -Circular Undermining Yes No -Change in Wound Grade/Stage No -Exudate Amt Large Medium -Exudate Type Serosanguineous Serosanguineous -Wound Margin Distinct, Distinct, Outline Outline Attached Attached -Granulation Amt Small (1-33%) None Present (0 %) -Granulation Quality Red N/A -Slough/Fibrin Yes No -Necrosis Amt Large (67-100%) Large (67-100%) -Necrotic Tissue Type Adherent Slough Adherent Slough -Structure Exposed N/A -Texture ([place]-wound Skin Appearance) Assessed, No Abnormality, Localized Edema Assessed ,Scarring -Moisture ([place]-wound Skin Appearance) Assessed No Abnormality, Assessed -Color ([place]-wound Skin Appearance) Assessed, No Abnormality, Erythema Assessed -Temperature ([place]-wound Skin No Abnormality No Abnormality Appearance) (Pt Warm) (Pt Warm) -Tenderness on Palpation ([place]-wound No Yes Skin Appearance) -Ulcer Cleansing Soap and Water Soap and Water -Foul Odor after Cleansing No No -Anesthetic Used 4% Lidocaine 4% Lidocaine Solution Solution #1 Sacral -Combined with other wound No No -Current Size (cm) - Length 0.1 0.1 -Current Size (cm) - Width 0.1 0.1 -Current Size (cm) - Depth 0.1 0.1 -Total Square Cm 0.01 0.01 -Photo Taken No -Epithelialization Large 67-100% None Present -Tunneling No No -Undermining/Tunneling No No -Circular Undermining No No -Exudate Amt Medium -Exudate Type Serosanguineous -Wound Margin Flat & Intact -Granulation Amt Large (67-100%) None Present (0 %) -Granulation Quality [place] N/A -Slough/Fibrin No No -Necrosis Amt None Present (0 None Present (0 %) %) -Necrotic Tissue Type -Structure Exposed N/A -Texture ([place]-wound Skin Appearance) Assessed, No Abnormality, Scarring Assessed -Moisture ([place]-wound Skin Appearance) Assessed No Abnormality, Assessed -Color ([place]-wound Skin Appearance) Assessed No Abnormality, Assessed -Temperature ([place]-wound Skin No Abnormality No Abnormality Appearance) (Pt Warm) (Pt Warm) -Tenderness on Palpation ([place]-wound No No Skin Appearance) -Ulcer Cleansing Soap and Water Soap and Water -Foul Odor after Cleansing No -Anesthetic Used 4% Lidocaine 4% Lidocaine Solution Solution WC - Nurse 2 - General Ulcer CM Notes Start: 02/14/21 13:41 Freq: Status: Active Protocol: Activity Type Activity Date Activity User E-Sign Co-Sign Detail Recorded Client Recorded Date Recorded By Document 02/14/21 14:05 MW [id number] 02/14/21 14:18 MW Document 02/21/21 14:21 JF [id number] 02/21/21 14:29 JF Edit Result 02/21/21 14:21 JF (1) [id number] 02/24/21 15:25 PL Document 02/28/21 14:03 MW [id number] 02/28/21 14:16 MW Document 03/07/21 14:21 MW [id number] 03/07/21 14:32 MW Document 03/14/21 13:52 MW [id number] 03/14/21 14:05 MW (1) # 3 LEFT HIP - Debridement, SubQ, ea addt'l 20sq cm => 1 or part thereof 02/14/21 02/21/21 02/28/21 14:05 14:21 14:03 Wound Center Nurse 2 # 3 LEFT HIP -Time 14:07 14:22 14:08 -Correct Patient Yes Yes Yes -Correct Side, Site, Position Yes Yes Yes -Correct Procedure Yes Yes Yes -Procedure Performed Yes Yes Yes -Type of Procedure Debridement Debridement Debridement -Clinical Debridement Subcutaneous Subcutaneous Subcutaneous -Tissue Removed Subcutaneous Subcutaneous Subcutaneous -Post Debridement (cm) - Length 5.0 4.0 4.5 -Post Debridement (cm) - Width 4.0 4.5 4.5 -Post Debridement (cm) - Depth 0.1 0.1 0.3 -Total Square (Post) (cm) 20.00 18.00 20.25 -Area of Debridement (cm) - Length 5.0 4 4.5 -Area of Debridement (cm) - Width 4.0 4.5 4.5 -Total Square (Area) (cm) 20.00 18.0 20.25 -Tunneling No No No -Undermining/Tunneling No No No -Circular Undermining No No No -Wound/Ulcer Outcome Not Healed Not Healed Not Healed -Ulcer Cleansing Rinsed/ Rinsed/ Rinsed/ Irrigated with Irrigated with Irrigated with Saline Saline Saline -Foul Odor after Cleansing No No No -Bioengineered Tissue No No No -Bleeding Controlled with Pressure Pressure Pressure -Offloading No No No -Treatment Response Procedure Procedure Procedure Tolerated Well Tolerated Well Tolerated Well -Debridement - Subq, 1st 20sq cm Yes Yes Yes -Debridement, SubQ, ea addt'l 20sq cm 1 1 1 or part thereof -Debridement - Muscle / Fascia, 1st 20sq cm -Debridement, Muscle/Fascia, ea addt'l 20sq cm or part thereof #2- R HIP -Time 14:08 14:22 14:15 -Correct Patient Yes Yes Yes -Correct Side, Site, Position Yes Yes Yes -Correct Procedure Yes Yes Yes -Procedure Performed Yes Yes Yes -Type of Procedure Debridement Debridement Debridement -Clinical Debridement Muscle / Fascia Muscle / Fascia Muscle / Fascia -Tissue Removed Muscle,Fascia Muscle Muscle,Fascia -Post Debridement (cm) - Length 3.5 4.0 4.0 -Post Debridement (cm) - Width 4.5 4.5 3.0 -Post Debridement (cm) - Depth 2.0 1.6 1.5 -Total Square (Post) (cm) 15.75 18.00 12.00 -Area of Debridement (cm) - Length 3.5 4.0 4.0 -Area of Debridement (cm) - Width 4.5 4.5 3.0 -Total Square (Area) (cm) 15.75 18.00 12.00 -Tunneling No No No -Undermining/Tunneling Yes Yes No -Undermining/Tunneling Starts (O'clock 12 1 ) -Undermining/Tunneling Ends (O'clock) 6 6 -Maximum Distance (cm) 1.0 1.5 -Circular Undermining No No No -Wound/Ulcer Outcome Not Healed Not Healed Not Healed -Ulcer Cleansing Rinsed/ Rinsed/ Rinsed/ Irrigated with Irrigated with Irrigated with Saline Saline Saline -Foul Odor after Cleansing No No No -Bioengineered Tissue No No No -Bleeding Controlled with Pressure Pressure Pressure -Offloading No No No -Treatment Response Procedure Procedure Procedure Tolerated Well Tolerated Well Tolerated Well -Debridement - Subq, 1st 20sq cm No -Debridement - Muscle / Fascia, 1st Yes Yes Yes 20sq cm #1 Sacral -Time 14:08 14:23 14:06 -Correct Patient Yes Yes Yes -Correct Side, Site, Position Yes Yes Yes -Correct Procedure Yes Yes Yes -Procedure Performed Yes Yes Yes -Type of Procedure Debridement Debridement Debridement -Clinical Debridement Subcutaneous Subcutaneous Subcutaneous -Tissue Removed Subcutaneous Subcutaneous Subcutaneous -Post Debridement (cm) - Length 2.0 1.5 1.5 -Post Debridement (cm) - Width 0.5 1.5 0.6 -Post Debridement (cm) - Depth 0.2 0.3 0.1 -Total Square (Post) (cm) 1.00 2.25 0.90 -Area of Debridement (cm) - Length 2.0 1.5 1.5 -Area of Debridement (cm) - Width 0.5 1.5 0.6 -Total Square (Area) (cm) 1.00 2.25 0.90 -Tunneling No No No -Undermining/Tunneling No No No -Circular Undermining No No No -Wound/Ulcer Outcome Not Healed Not Healed Not Healed -Ulcer Cleansing Rinsed/ Rinsed/ Rinsed/ Irrigated with Irrigated with Irrigated with Saline Saline Saline -Foul Odor after Cleansing No No No -Bioengineered Tissue No No No -Bleeding Controlled with Pressure Pressure Pressure -Offloading No No No -Treatment Response Procedure Procedure Procedure Tolerated Well Tolerated Well Tolerated Well -Debridement - Subq, 1st 20sq cm No No No Pain Scale: 0-10 Numeric Is Patient Pain Free? Yes Yes Yes 03/07/21 03/14/21 14:21 13:52 Wound Center Nurse 2 # 3 LEFT HIP -Time 14:21 13:53 -Correct Patient Yes Yes -Correct Side, Site, Position Yes Yes -Correct Procedure Yes Yes -Procedure Performed Yes Yes -Type of Procedure Debridement Debridement -Clinical Debridement Muscle / Fascia Muscle / Fascia -Tissue Removed Muscle,Fascia Muscle,Fascia -Post Debridement (cm) - Length 4.5 5.5 -Post Debridement (cm) - Width 4.5 5.0 -Post Debridement (cm) - Depth 1.5 0.7 -Total Square (Post) (cm) 20.25 27.50 -Area of Debridement (cm) - Length 4.5 5.5 -Area of Debridement (cm) - Width 4.5 5.0 -Total Square (Area) (cm) 20.25 27.50 -Tunneling No No -Undermining/Tunneling No No -Circular Undermining No No -Wound/Ulcer Outcome Not Healed Not Healed -Ulcer Cleansing Rinsed/ Rinsed/ Irrigated with Irrigated with Saline Saline -Foul Odor after Cleansing No No -Bioengineered Tissue No No -Bleeding Controlled with Pressure Pressure -Offloading No No -Treatment Response Procedure Procedure Tolerated Well Tolerated Well -Debridement - Subq, 1st 20sq cm -Debridement, SubQ, ea addt'l 20sq cm or part thereof -Debridement - Muscle / Fascia, 1st Yes Yes 20sq cm -Debridement, Muscle/Fascia, ea addt'l 1 1 20sq cm or part thereof #2- R HIP -Time 14:21 13:53 -Correct Patient Yes Yes -Correct Side, Site, Position Yes Yes -Correct Procedure Yes Yes -Procedure Performed Yes Yes -Type of Procedure Debridement Debridement -Clinical Debridement Muscle / Fascia Muscle / Fascia -Tissue Removed Muscle,Fascia Muscle,Fascia -Post Debridement (cm) - Length 3.5 3.0 -Post Debridement (cm) - Width 2.2 3.5 -Post Debridement (cm) - Depth 2.2 1.0 -Total Square (Post) (cm) 7.70 10.50 -Area of Debridement (cm) - Length 3.5 3.0 -Area of Debridement (cm) - Width 2.2 3.5 -Total Square (Area) (cm) 7.70 10.50 -Tunneling No No -Undermining/Tunneling Yes No -Undermining/Tunneling Starts (O'clock 1 ) -Undermining/Tunneling Ends (O'clock) 7 -Maximum Distance (cm) 1.7 -Circular Undermining No No -Wound/Ulcer Outcome Not Healed Not Healed -Ulcer Cleansing Rinsed/ Rinsed/ Irrigated with Irrigated with Saline Saline -Foul Odor after Cleansing No No -Bioengineered Tissue No No -Bleeding Controlled with Pressure Pressure -Offloading No No -Treatment Response Procedure Procedure Tolerated Well Tolerated Well -Debridement - Subq, 1st 20sq cm No -Debridement - Muscle / Fascia, 1st No No 20sq cm #1 Sacral -Time 14:22 13:54 -Correct Patient Yes Yes -Correct Side, Site, Position Yes Yes -Correct Procedure Yes Yes -Procedure Performed No Yes -Type of Procedure Debridement -Clinical Debridement Subcutaneous -Tissue Removed Subcutaneous -Post Debridement (cm) - Length 0.1 0.2 -Post Debridement (cm) - Width 0.1 0.2 -Post Debridement (cm) - Depth 0.1 0.1 -Total Square (Post) (cm) 0.01 0.04 -Area of Debridement (cm) - Length 0.2 -Area of Debridement (cm) - Width 0.2 -Total Square (Area) (cm) 0.04 -Tunneling No No -Undermining/Tunneling No No -Circular Undermining No No -Wound/Ulcer Outcome Not Healed Not Healed -Ulcer Cleansing Rinsed/ Rinsed/ Irrigated with Irrigated with Saline Saline -Foul Odor after Cleansing No No -Bioengineered Tissue No No -Bleeding Controlled with Pressure Pressure -Offloading No No -Treatment Response Procedure Tolerated Well -Debridement - Subq, 1st 20sq cm No Pain Scale: 0-10 Numeric Is Patient Pain Free? Yes Yes WC - Nurse 3 - General Ulcer D/C NN Start: 02/14/21 13:41 Freq: Status: Active Protocol: Activity Type Activity Date Activity User E-Sign Co-Sign Detail Recorded Client Recorded Date Recorded By Document 02/14/21 14:51 ML [id number] 02/14/21 14:53 ML Document 02/21/21 14:43 BMF [id number] 02/21/21 14:50 BMF Document 02/28/21 14:28 JF [id number] 02/28/21 14:29 JF Document 03/07/21 14:59 RB [id number] 03/07/21 15:00 RB Document 03/14/21 14:12 AK [id number] 03/14/21 14:15 AK 02/14/21 02/21/21 02/28/21 14:51 14:43 14:28 Wound Care Nurse 3 # 3 LEFT HIP -Ulcer Cleansing Rinsed/ Rinsed/ Rinsed/ Irrigated with Irrigated with Irrigated with Saline Saline Saline -Foul Odor after Cleansing No No No -Negative Pressure Wound Therapy -Primary Dressing Applied Other Enzymatic -Other Dressing santyl,adaptic, SANTYL; DRSG foam dressing PER [place] STEAM DRIER OPERATOR -Primary Dressing Covered/Secured with Other Dry Gauze, Secured with Tape -Other Covering SILICONE BORDER DRSG -Silvercel #2- R HIP -Ulcer Cleansing Rinsed/ Rinsed/ Rinsed/ Irrigated with Irrigated with Irrigated with Saline Saline Saline -Foul Odor after Cleansing No No No -Negative Pressure Wound Therapy -Primary Dressing Applied Silvercel Aquacel AG 4x4, Silvercel Other -Other Dressing foam dressing EXCEL SAP BORDER DRSG; DRSG PER [place] STEAM DRIER OPERATOR -Primary Dressing Covered/Secured with Dry Gauze, Secured with Tape -Other Covering -Aquacel AG 4x4 0 -Silvercel 1 1 #1 Sacral -Ulcer Cleansing Rinsed/ Rinsed/ Rinsed/ Irrigated with Irrigated with Irrigated with Saline Saline Saline -Foul Odor after Cleansing No No No -Negative Pressure Wound Therapy -Primary Dressing Applied Silvercel Aquacel AG 4x4, Silvercel Other -Other Dressing foam dressing EXCEL SAP BORDER; DRSGS PER [place] STEAM DRIER OPERATOR -Primary Dressing Covered/Secured with Dry Gauze, Secured with Tape -Aquacel AG 4x4 1 -Silvercel 0 0 Treatment Response Procedure Tolerated Well Pain Scale: 0-10 Numeric Is Patient Pain Free? Yes Yes WC - Visit Discharge Discharge Condition Stable Stable Stable Ambulatory Status Wheelchair Wheelchair Wheelchair Transportation Private Auto Private Auto Private Auto Accompanied by SISTER IN LAW BOGDAN Medication Reconcilliation completed & No Yes provided to patient/care provider Clinical Summary of Care Provided Yes Yes Facility Type Home Health 03/07/21 03/14/21 14:59 14:12 Wound Care Nurse 3 # 3 LEFT HIP -Ulcer Cleansing Rinsed/ Rinsed/ Irrigated with Irrigated with Saline Saline -Foul Odor after Cleansing No -Negative Pressure Wound Therapy N/A -Primary Dressing Applied Silvercel -Other Dressing abd santyl -Primary Dressing Covered/Secured with Dry Gauze, Dry Gauze, Secured with Secured with Tape Tape -Other Covering -Silvercel 1 #2- R HIP -Ulcer Cleansing Rinsed/ Irrigated with Saline -Foul Odor after Cleansing No -Negative Pressure Wound Therapy N/A -Primary Dressing Applied Silvercel -Other Dressing silvercel -Primary Dressing Covered/Secured with Dry Gauze, Secured with Tape -Other Covering abd -Aquacel AG 4x4 -Silvercel 1 #1 Sacral -Ulcer Cleansing Rinsed/ Rinsed/ Irrigated with Irrigated with Saline Saline -Foul Odor after Cleansing No -Negative Pressure Wound Therapy N/A -Primary Dressing Applied NonAdherent NonAdherent Contact Layer Contact Layer -Other Dressing -Primary Dressing Covered/Secured with Dry Gauze, Secured with Tape -Aquacel AG 4x4 -Silvercel Treatment Response Procedure Tolerated Well Pain Scale: 0-10 Numeric Is Patient Pain Free? Yes WC - Visit Discharge Discharge Condition Stable Stable Ambulatory Status Stretcher Wheelchair Transportation Private Auto Accompanied by sister in law Medication Reconcilliation completed & No No provided to patient/care provider Clinical Summary of Care Provided Yes Yes Facility Type Assessment/Plan Assessment/Plan (1) Sacral decubitus ulcer: CODE(S): L89.159 - Pressure ulcer of sacral region, unspecified stage QUALIFIERS: Pressure injury stage: stage 4 Qualified Code(s): L89.154 - Pressure ulcer of sacral region, stage 4 (2) Multiple sclerosis: CODE(S): G35 - Multiple sclerosis (3) Debility: CODE(S): R53.81 - Other malaise (4) Pressure injury of left hip, unstageable: CODE(S): L89.220 - Pressure ulcer of left hip, unstageable (5) Pressure injury of right hip, stage 4: CODE(S): L89.214 - Pressure ulcer of right hip, stage 4 PLAN: Debridement done as documented above, procedure was well-tolerated. Cultures of her left hip showed E. coli and multiple skin contaminants, patient currently on a course of Bactrim and completed this. X-ray ordered of the sacrum previously which was negative for osteomyelitis. X-ray was ordered of the right hip which was negative, x-ray of the left hip could not exclude osteomyelitis and therefore an MRI is pending. For wound care will do silver cell to the stage IV pressure injury to the right hip Santyl to the left hip and Adaptic cover and foam dressing stage IV sacral pressure injury. Offloading recommended, a Roho cushion was ordered as patient is wheelchair-bound. We will also start the process of ordering an offloading low air loss mattress hospital bed at this time. Patient is currently utilizing a air loss mattress that she ordered online. She states that she will change positions as often as possible, however admits to sitting in her chair in 1 position for most of the day. I discussed fpc with the patient and she continues to decline at this time. Increased protein intake, vitamin C and Zinc also recommended. Labs ordered,pending results. We will also refer for a surgical consult given the depth of her bilateral hip pressure injuries. May benefit from surgical debridement. Her questions were answered and she was advised to call with any further questions or concerns. Follow-up in 1 week with myself. Discussed with patient in detail that if any of her symptoms worsen such as an increase in drainage, pain, or fever or any other signs of infection that she should go to the emergency department for evaluation. This note was generated with [employer] software. It may contain incorrect words, spelling, and punctuation that were not noted in checking the note before signing.
== END 2021-03-15 23:59 ==
LOC: WC 13:30
PROVIDERS: PCP Family Medicine; Referring Provider Internal Medicine; Visit Provider Nurse Practitioner Family
DX: L89.154 Pressure ulcer of sacral region, stage 4 (principal); L89.214 Pressure ulcer of right hip, stage 4; L89.224 Pressure ulcer of left hip, stage 4; G35 Multiple sclerosis; R53.81 Other malaise; Z99.3 Dependence on wheelchair; Z79.899 Other long term (current) drug therapy
CPT/HCPCS: 11042; 11043; 11045; 11046; 87070; 87075; 87077; 87186; 87205

== ENCOUNTER 2021-03-27 08:07 | Emergency (ER) | payer OTHER, SELFPAY ==
[2018-02-01 11:47] VITALS: BMI 15.0
[2021-03-27 08:09] VITALS: BP 95/73; PULSE 95; RESP 14; TEMP 35.8; O2SAT 95; BMI 15.3
--- NOTE | 2021-03-27 08:38 | RAD_ITS ---
STUDY: X-RAY CHEST REASON FOR EXAM: Female, 55 years old. Weakness TECHNIQUE: Single AP portable view of the chest. COMPARISON: Comparison is made with prior study dated 12/02/2020. FINDINGS: Surgical clips are seen in the left axillary region. The patient status post left mastectomy. There is hyperinflation of the lungs consistent with chronic obstructive lung disease (COPD). There is no demonstrated pleural abnormality. Normal size heart. Normal mediastinum and felipe. Normal visualized pulmonary arteries. Normal visualized aortic arch and descending thoracic aorta. Normal visualized thoracic spine. Normal visualized ribs, clavicles, and shoulders. There is no demonstrated abnormality of the visualized soft tissue structures of the upper abdomen. RAD/Chest 1 View (Portable) IMPRESSION: Hyperinflation. The lungs are clear. The patient is status post left mastectomy and left axillary node dissection. Electronically Signed: Dinesh Marie MD at 9:06 EST , Service support ,
--- NOTE | 2021-03-27 08:39 | EDS_ITS ---
HPI HPI - URI History of Present Illness Chief Complaint: Weakness Narrative Narrative: 55-year-old female with history of MS and contracture of the lower extremities presenting for generalized weakness. She states that about 2 to 3 days ago she started with a mild cough, sore throat, body aches. She denies change in taste or smell. She states she had a temperature of 99.2 yesterday and took Tylenol for this. She has no documented fever. She denies chest pain or shortness of breath. Patient does admit to having decreased p.o. intake for the last couple of days. She initially had some nausea which resolved. Patient states that she may be dehydrated. She states that even though she is not nauseous he did not try to drink any fluids today. Patient does state that she was unable to wheel herself around in her wheelchair this morning and this is why she presented today. She states she has MS and when she gets sick she has more weakness than usual. Patient was not vaccinated against COVID-19. She has no history of having COVID-19. She states that her in December and he was her primary caregiver. When asked about her COVID vaccination or having COVID in the past she states that if she has COVID it might be a blessing so she does not have to live anymore. Patient does relate that she gets urinary tract infections fairly often. Patient also complains of right femur pain just above the knee. She states that she has a history of a femur fracture in this area and while stretching yesterday with her family she thought she may have overstretched it. She was seen by orthopedics and they stated that she did not have any fractures. ROS ROS ED Constitutional Constitutional ED: Reports subjective; Denies chills or sweats Eyes Eyes: Denies blurry vision or diplopia ENT ENT ED: Denies rhinorrhea or sore throat Cardiovascular Cardiovascular: Denies chest pain or palpitations Respiratory/Chest Respiratory/Chest: Reports cough; Denies dyspnea Gastrointestinal Gastrointestinal: Reports nausea; Denies abdominal pain or vomiting Genitourinary Genitourinary ED: Denies dysuria or hematuria Musculoskeletal Musculoskeletal: Reports myalgias and other Details: Right leg pain ; Denies arthralgias, back pain or neck pain Integumentary Reports other Details: Chronic stage V decubitus ulcer Neurologic Neurologic: Denies headache(s) or paresthesias PFSH PFS Medical History Breast cancer Chronic indwelling Pandey catheter Multiple sclerosis Pressure injury of left hip, unstageable Pressure injury of right hip, stage 2 Pressure injury of right hip, stage 4 Home Medications baclofen 10 mg tablet 20 mg PO Q4H 02/28/17 [History Last Taken 10/12/17 06:00] cholecalciferol (vitamin D3) 10,000 unit PO DAILY 10/09/17 [History Last Taken Unknown] dalfampridine 10 mg PO BID PRN PRN 03/24/18 [History Last Taken 07/19/20] Metamucil Fiber Singles 1 packet PO DAILY 07/23/20 [History Last Taken Unknown] tamoxifen 20 mg PO DAILY 07/23/20 [History Last Taken Unknown] nitrofurantoin macrocrystal 25 mg capsule 50 mg PO QHS 11/06/20 [History Last Taken Unknown] Linzess 145 mcg PO DAILY 12/02/20 [History Last Taken Unknown] cephalexin 500 mg PO Q6 #40 cap 12/02/20 [Rx Last Taken Unknown] doxycycline monohydrate 100 mg PO BID #20 cap 12/02/20 [Rx Last Taken Unknown] metronidazole 500 mg tablet 500 mg PO Q8H #21 tab 02/06/21 [Rx Last Taken Unknown] Allergy/AdvReac Type Severity Reaction Status Date / Time ciprofloxacin Allergy Mild unknown Verified 03/27/21 08:08 sulfamethoxazole AdvReac Severe Nausea Verified 03/27/21 08:08 [From Bactrim] trimethoprim [From Bactrim] AdvReac Severe Nausea Verified 03/27/21 08:08 Family History Aunt Breast cancer Mother Diabetes Surgical History h/o tonsillectomy S/P left mastectomy (~10/12/17) Social History household members: spouse Smoking Status: Former smoker alcohol intake: never EXAM Physical Exam Const Vital Signs: 03/27/21 08:09 03/27/21 08:37 Temperature 96.5 F L Temperature Source Temporal Pulse Rate 95 Respiratory Rate 14 Respiratory Effort Normal Non-Labored Respiratory Pattern Normal Blood Pressure 95/73 Blood Pressure Mean 80 Pulse Ox 95 Oxygen Delivery Method Room Air Positive well nourished General Appearance ED: NAD; Negative for pallor HEENT Reports moist mucous membranes normocephalic and atraumatic Eyes PERRL and EOMs intact bilaterally Neck no lymphadenopathy, supple and no meningeal signs Resp normal respiratory effort and clear to auscultation bilaterally Cardio Rate: regular rate Rhythm: regular rhythm GI non-distended Palpation: soft Extremity Extremity Narrative: Hips and knees held in flexion. No obvious deformities of the right femur or right knee. Neuro oriented x3 and CN's II-XII intact bilaterally Sensorium / Orientation: alert Psych mental status grossly normal Attitude: No agitated Mood & Affect: Negative for anxious Skin General Skin Exam: Negative for jaundice or pallor MDM MDM MDM Narrative Medical decision making narrative: 55-year-old female presenting with gen eralized weakness. She does express that she has a sore throat and a mild cough as well as body aches. Patient was tested for COVID-19 and this is positive today. Patient is on day 3 of symptoms of this. Patient is found to be leukopenic and lymphopenic. Hemoglobin hematocrit are stable. Renal function electrolytes are normal. LFTs are normal. Patient's vital signs are stable and she is afebrile. She is not requiring any oxygen supplementation. Respiratory is 14. Blood pressure is at baseline. Chest x-ray on my interpretation shows no acute cardiopulmonary process and radiologist agree patient did have a urinalysis today which is positive for UTI as well. She was given a dose of Rocephin IV and emergency room. Although she stated she had generalized weakness and was unable to use her wheelchair she states that now she is feeling much better and feels that she can go home because she has home health care. Patient does express that she would like to have the monoclonal antibodies and a referral was made. Patient will be given prescription for Keflex for home. Urine culture was sent. Patient counseled on return precautions. She is discharged in stable condition. Impression: 1. COVID-19 2. UTI 3. Generalized weakness Lab Data Attestation: I reviewed the patient's lab results. Labs: Laboratory Results - last 24 hr 03/27/21 03/27/21 03/27/21 08:35 08:35 08:45 WBC 3.7 L RBC 3.83 L Hgb 11.6 L Hct 35.8 L MCV 93.5 MCH 30.3 MCHC 32.4 RDW Std Deviation 51.8 H RDW Coeff of Raisa 15.1 H Plt Count 250 MPV 10.7 Immature Gran % (Auto) 0.300 Neut % (Auto) 58.4 Lymph % (Auto) 19.8 [place] % (Auto) 19.3 H Eos % (Auto) 1.9 Baso % (Auto) 0.3 Absolute Neuts (auto) 2.2 Absolute Lymphs (auto) 0.74 L Nucleated RBC % 0.5 Sodium 138 Potassium 3.8 Chloride 105 Carbon Dioxide 27.0 Anion Gap 6 BUN 18 Creatinine 0.43 L Estim Creat Clear Calc 103.74 Est GFR (MDRD) Af Amer 198 Est GFR (MDRD) Non-Af 164 BUN/Creatinine Ratio 42.3 H Glucose 94 Calcium 8.6 Total Bilirubin 0.20 AST 23 ALT 31 Alkaline Phosphatase 59 Total Protein 6.6 Albumin 3.0 L Globulin 3.6 Albumin/Globulin Ratio 0.8 L Urine Color Yellow Urine Clarity Sl. Cloudy Urine pH 5.0 Ur Specific [place] 1.025 Urine Protein 30 H Urine Glucose (UA) Normal Urine Ketones 5 H Urine Occult Blood 50 H Urine Nitrite Positive H Urine Bilirubin Negative Urine Urobilinogen Normal Ur Leukocyte Esterase 500 H Urine RBC 5-10 SEEN Urine WBC 50-100 SEEN Ur Squamous Epith Cells 0 SEEN Urine Bacteria 1+ Urine Mucus 0 SEEN Radiography Diagnostic Testing: Clinical Impression(s) from Imaging Studies Chest X-Ray 03/27/21 08:38 IMPRESSION: Hyperinflation. The lungs are clear. The patient is status post left mastectomy and left axillary node dissection. Electronically Signed: Dinesh Marie MD at 9:06 EST , Service support , Discharge Plan Triage Chief Complaint: Weakness ED Provider: Bruno Blankenship Dx/Rx/DC Orders Prescriptions: No Action baclofen 10 mg tablet 20 mg PO Q4H RF: 0 nitrofurantoin macrocrystal 25 mg capsule 50 mg PO QHS RF: 0 cholecalciferol (vitamin D3) 10,000 UNIT capsule 10,000 unit PO DAILY RF: 0 dalfampridine 10 MG tablet extended release 12 hr 10 mg PO BID PRN PRN (Reason: MS) RF: 0 tamoxifen 20 MG tablet 20 mg PO DAILY RF: 0 Metamucil Fiber Singles 3.4 gram powder in packet 1 packet PO DAILY RF: 0 Linzess 145 mcg capsule 145 mcg PO DAILY RF: 0 doxycycline monohydrate 100 MG capsule 100 mg PO BID Qty: 20 RF: 0 cephalexin 500 mg capsule 500 mg PO Q6 Qty: 40 RF: 0 metronidazole 500 mg tablet 500 mg PO Q8H Qty: 21 RF: 0 Primary Care Provider: Mario Soliz
[2021-03-27 08:46] LABS: Absolute Lymphocyte Count 0.74 X10^3/uL (0.83-4.51); Absolute Neutrophil Count 2.2 X10^3/uL (2.0-7.7); Basophil# 0.01 X10^3/uL; Basophil% 0.3 % (0-1); Eosinophil# 0.07 X10^3/uL; Eosinophils% 1.9 % (0-5); Hematocrit 35.8 % (37-47); Hemoglobin 11.6 g/dL (12.0-15.0); Lymphocyte # 0.74 X10^3/ul (0.83-4.51); Lymphocyte % 19.8 % (19-41); Mean Corp Hgb Conc 32.4 g/dL (32-36); Mean Corpuscular Hgb 30.3 pg (27.0-32.0); Mean Corpuscular Volume 93.5 fL (81-99); Mean Platelet Vol. 10.7 fl (6.2-12.0); Monocyte# 0.72 X10^3/uL; Monocyte% 19.3 % (0-10); NRBC Flagged by Analyzer 0.5 % (0-5); Neutrophil # 2.19 X10^3/uL (2.7-7.7); Neutrophil % 58.4 % (47-70); Platelet Count 250 K/mm3 (150-450); RBC Distribution Width CV 15.1 % (11.6-14.6); RBC Distribution Width SD 51.8 fl (35.1-43.9); Red Blood Count 3.83 M/mm3 (4.2-5.4); White Blood Count 3.7 K/mm3 (4.4-11.0)
[2021-03-27 08:51] LABS: Mucous, Urine 0 SEEN /hpf (<or=2+); Squamous Epithelial Cells - UA 0 SEEN /hpf (5-10)
[2021-03-27 09:00] LABS: ALB/GLOB Ratio 0.8 RATIO (0.9-2.4); AST(SGOT) 23 U/L (15-37); Alanine Aminotransfer ALT/SGPT 31 U/L (13-56); Alkaline Phosphatase 59 U/L (45-117); Anion Gap 6 (5-15); BUN 18 mg/dL (7-18); BUN/Creat Ratio 42.3 RATIO (10-20); Calcium,Total 8.6 mg/dL (8.5-10.1); Chloride 105 mmol/L (98-107); Creatinine, Serum 0.43 mg/dL (0.55-1.02); EST Glomerular Filtration Rate 164 mL/min (>60); Est Glom Filt Rate - Afr Amer 198 mL/min (>60); Estimated Creatinine Clearance 103.74 ml/min; Globulin 3.6 g/dL (2.2-4.2); Glucose 94 mg/dL (74-106); Potassium 3.8 mmol/L (3.5-5.1); Protein, Total 6.6 g/dL (6.4-8.2); Sodium Level 138 mmol/L (136-145)
[2021-03-27 09:04] LABS: Color, Urine Yellow (Yellow); Glucose, Dipstick Normal (Normal); Ketone-Dipstick 5 mg/dl (Negative); Leukocyte Esterase-Dipstick 500 /ul (Negative); Nitrite-Dipstick Positive (Negative); Occult Blood-Urine 50 /ul (Negative); Protein-Dipstick 30 mg/dl (Negative); Specific Gravity, Urine 1.025 (1.002-1.030); Urine Bilirubin Dipstick Negative (Negative); Urine Clarity Sl. Cloudy (Clear); Urine Urobilinogen Normal (Normal)
[2021-03-27 09:13] LABS: White Blood Cells 50-100 SEEN /hpf (0-5)
[2021-03-27 09:14] LABS: Bacteria 1+ /hpf (None Seen); Red Blood Cells-Urine 5-10 SEEN /hpf (0-5)
[2021-03-27] MEDS: Ceftriaxone 1 GM/50 ML BAG IV (09:32)
[2021-03-27 10:05] VITALS: BP 129/68; PULSE 71; RESP 15; O2SAT 96
== END 2021-03-27 10:14 | disposition home or self-care (01) ==
PROVIDERS: Emergency Provider Student in an Organized Health Care Education/Training Program; PCP Family Medicine; Visit Provider Student in an Organized Health Care Education/Training Program
DX: U07.1 COVID-19 (principal); G35 Multiple sclerosis; N39.0 Urinary tract infection, site not specified; Z87.891 Personal history of nicotine dependence; Z87.440 Personal history of urinary (tract) infections; Z85.3 Personal history of malignant neoplasm of breast; Z79.899 Other long term (current) drug therapy
CPT/HCPCS: 71045; 80053; 81001; 85025; 87077; 87086; 87088; 87186; 87426; 96365; 99284; J7050; A4216

== ENCOUNTER 2021-04-11 13:30 | Outpatient (RCR) | payer OTHER, SELFPAY ==
[2018-02-01 11:47] VITALS: BMI 15.0
[2021-03-16 00:31] VITALS: BP 100/69; PULSE 76; RESP 18; TEMP 35.8
[2021-03-21 13:44] VITALS: BP 99/60; PULSE 78; RESP 18; TEMP 36.4
--- NOTE | 2021-03-21 16:44 | PN.PCM_ITS ---
History of Present Illness Date of Service: 03/21/21 Chief Complaint: Nonhealing sacral ulcer, stage IV pressure injuries to bi lateral hips History of Wound: Ms. Byrnes is a 55-year-old who presents to the wound center due to nonhealing sacral ulcer. History of multiple sclerosis and has been whee lchair-bound for about 16 years. Ulcer noted about a month ago. Has been applying Adaptic and Aquacel to ulcer without any significant improvement. Was seen recently at the emergency room due to concerns by home health nurse for worsening ulcer. Started on antibiotics but she has noted no significant improvement. Foul smell. No significant drainage reported. Denies chills, fever or otherwise feeling of unwell. Progress of Wound: Patient's pressure injuries to her bilateral hips continue to deteriorate and her sacral pressure ulcer has deteriorated as well, will refer to plastic surgery at [facility] center as I believe her wounds would benefit from surgical debridement. She has completed all of her antibiotics and denies any new concerns. She continues to be unable to offload properly and continues to decline snf referral Objective Data Objective Data Vital Signs: Vital Signs Temp Pulse Resp BP 97.5 F L 78 18 99/60 03/21/21 13:44 03/21/21 13:44 03/21/21 13:44 03/21/21 13:44 Charges/Coding Procedures Integumentary 111xxx-113xx: [id number] Natalia musc/fascia 20 sq cm/< Physical Exam Const alert, oriented x3 and no apparent distress General Appearance: cooperative and comfortable HEENT normocephalic and head/scalp atraumatic Head and Scalp: normal to inspection, normocephalic and atraumatic Eyes EOMs intact bilaterally Neck full ROM General: normal visual inspection Resp normal respiratory effort Effort and Inspection: able to speak in complete sentences Extremity normal to inspection Skin Wound Narrative: Stage IV pressure injury to sacrum with adherent slough, worse this week compared to last week, no signs of obvious infection at this time, stage IV pressure injury to right and left hip with large amount of eschar and adherent slough, and muscle fascia/tendon exposed, moderate clear drainage, no warmth or streaking at this time, Neuro oriented x3 and moves all extremities Psych mental status grossly normal Appearance: grossly normal Attitude: calm Speech: normal speech Debridement Note Debridement Note Wound debrided: Stage IV pressure injuries to bilateral hips and sacrum Type of Debridement: Excisional debridement Anesthesia Used: 4% Lidocaine Solution Depth: in the subcutaneous layer Percentage of wound debrided: 100 Instrument Used: 5mm curette Tissue Removed: Slough and devitalized tissue Severity: Fat Layer Exposed Amount of bleeding with debridement: Mild Bleeding Controlled with: Pressure Patient tolerated procedure: Patient tolerated procedure well Post-Debridement Measurements and Additional Note: Post-Debridement Measurements/Treatment REA - Nurse 1 - General Ulcer Assessment Start: 03/21/21 13:44 Freq: Status: Active Protocol: ASHLEY Activity Type Activity Date Activity User E-Sign Co-Sign Detail Recorded Client Recorded Date Recorded By Document 03/21/21 13:44 DL [id number] 03/21/21 14:00 DL 03/21/21 13:44 WC - Today's Visit Information Type of service Follow-up Visit (Physician/STEAM CONDITIONER FILLING ) Arrival Mode Wheelchair Transfer Assistance None Patient Identification Verified (Name & Yes ) Patient Requires Transmission-Based No Precautions Vital Signs Temperature (97.8 F-99.1 F) 97.5 F L Temperature Source Temporal Pulse Rate (60-100) 78 Pulse Location Monitor Respiratory Rate (12-18) 18 Respiratory rate source Observation Blood Pressure (90/60-120/80) 99/60 Blood Pressure Mean (mm Hg) 73 Source Monitor History Since Last Visit- (Skip if this is Patient's initial visit) Have you changed medications since your No last visit? Any new allergies or adverse reactions No Had a fall/change in ADL's that may No increase risk of falls Signs or symptoms of abuse and/or No neglect since last visit Have you been in the hospital since your No last visit? Has dressing in place as prescribed Yes Has compression in place as prescribed N/A Has offloadiing in place as prescribed Yes Experienced any changes in pain level or No management Pain Scale: 0-10 Numeric Is Patient Pain Free? Yes - Nurse 1 - General Ulcer Measurement Start: 03/21/21 13:44 Freq: Status: Active Protocol: Activity Type Activity Date Activity User E-Sign Co-Sign Detail Recorded Client Recorded Date Recorded By Document 03/21/21 13:44 DL [id number] 03/21/21 14:00 DL 03/21/21 13:44 Wound Center Nurse 1 # 3 LEFT HIP -Current Size (cm) - Length 4.5 -Current Size (cm) - Width 4.3 -Current Size (cm) - Depth 1.1 -Total Square Cm 19.35 -Photo Taken No -Exudate Amt Large -Exudate Type Yellow/Green -Wound Margin Distinct, Outline Attached -Granulation Amt None Present (0 %) -Necrosis Amt Large (67-100%) -Necrotic Tissue Type Adherent Slough -Structure Exposed N/A -Texture (Cydney-wound Skin Appearance) Scarring -Moisture (Cydney-wound Skin Appearance) No Abnormality -Color (Cydney-wound Skin Appearance) No Abnormality -Temperature ([place]ydney-wound Skin No Abnormality Appearance) (Pt Warm) -Tenderness on Palpation (Cydney-wound No Skin Appearance) -Ulcer Cleansing Soap and Water -Foul Odor after Cleansing No -Anesthetic Used 4% Lidocaine Solution #2- R HIP -Current Size (cm) - Length 1.8 -Current Size (cm) - Width 2.8 -Current Size (cm) - Depth 1.3 -Total Square Cm 5.04 -Photo Taken No -Exudate Amt Large -Exudate Type Yellow/Green -Wound Margin Distinct, Outline Attached -Granulation Quality Hyper- granulation, [place] -Necrosis Amt Large (67-100%) -Necrotic Tissue Type Adherent Slough -Structure Exposed N/A -Texture (Cydney-wound Skin Appearance) Scarring -Moisture (Cydney-wound Skin Appearance) No Abnormality -Color (Cydney-wound Skin Appearance) No Abnormality -Temperature ([place]ydney-wound Skin No Abnormality Appearance) (Pt Warm) -Tenderness on Palpation (Cydney-wound No Skin Appearance) -Ulcer Cleansing Soap and Water -Foul Odor after Cleansing No -Anesthetic Used 4% Lidocaine Solution #1 Sacral -Current Size (cm) - Length 1.3 -Current Size (cm) - Width 1.2 -Current Size (cm) - Depth 0.2 -Total Square Cm 1.56 -Photo Taken No -Exudate Amt Small -Exudate Type Serosanguineous -Wound Margin Distinct, Outline Attached -Granulation Amt Small (1-33%) -Granulation Quality Pale,[place] -Necrosis Amt Small (1-33%) -Necrotic Tissue Type Adherent Slough -Structure Exposed N/A -Texture (Cydney-wound Skin Appearance) Scarring -Moisture (Cydney-wound Skin Appearance) No Abnormality -Color (Cydney-wound Skin Appearance) No Abnormality -Temperature ([place]ydney-wound Skin No Abnormality Appearance) (Pt Warm) -Tenderness on Palpation (Cydney-wound No Skin Appearance) -Ulcer Cleansing Soap and Water -Foul Odor after Cleansing No -Anesthetic Used 4% Lidocaine Solution WC - Nurse 2 - General Ulcer CM Notes Start: 03/21/21 13:44 Freq: Status: Active Protocol: Activity Type Activity Date Activity User E-Sign Co-Sign Detail Recorded Client Recorded Date Recorded By Document 03/21/21 14:14 MW [id number] 03/21/21 14:22 MW 03/21/21 14:14 Wound Center Nurse 2 # 3 LEFT HIP -Time 14:15 -Correct Patient Yes -Correct Side, Site, Position Yes -Correct Procedure Yes -Procedure Performed Yes -Type of Procedure Debridement -Clinical Debridement Muscle / Fascia -Tissue Removed Muscle,Fascia -Post Debridement (cm) - Length 4.5 -Post Debridement (cm) - Width 4.5 -Post Debridement (cm) - Depth 2.4 -Total Square (Post) (cm) 20.25 -Area of Debridement (cm) - Length 4.5 -Area of Debridement (cm) - Width 4.5 -Total Square (Area) (cm) 20.25 -Tunneling No -Undermining/Tunneling No -Circular Undermining No -Wound/Ulcer Outcome Not Healed -Ulcer Cleansing Rinsed/ Irrigated with Saline -Foul Odor after Cleansing No -Bioengineered Tissue No -Bleeding Controlled with Pressure -Offloading No -Treatment Response Procedure Tolerated Well -Debridement - Muscle / Fascia, 1st Yes 20sq cm -Debridement, Muscle/Fascia, ea addt'l 1 20sq cm or part thereof #2- R HIP -Time 14:15 -Correct Patient Yes -Correct Side, Site, Position Yes -Correct Procedure Yes -Procedure Performed Yes -Type of Procedure Debridement -Clinical Debridement Muscle / Fascia -Tissue Removed Muscle,Fascia -Post Debridement (cm) - Length 2.6 -Post Debridement (cm) - Width 3.5 -Post Debridement (cm) - Depth 1.5 -Total Square (Post) (cm) 9.10 -Area of Debridement (cm) - Length 2.6 -Area of Debridement (cm) - Width 3.5 -Total Square (Area) (cm) 9.10 -Tunneling No -Undermining/Tunneling No -Circular Undermining Yes -Wound/Ulcer Outcome Not Healed -Ulcer Cleansing Rinsed/ Irrigated with Saline -Foul Odor after Cleansing No -Bioengineered Tissue No -Bleeding Controlled with Pressure -Offloading No -Treatment Response Procedure Tolerated Well -Debridement - Muscle / Fascia, 1st No 20sq cm #1 Sacral -Time 14:17 -Correct Patient Yes -Correct Side, Site, Position Yes -Correct Procedure Yes -Procedure Performed Yes -Type of Procedure Debridement -Clinical Debridement Subcutaneous -Tissue Removed Subcutaneous -Post Debridement (cm) - Length 1.0 -Post Debridement (cm) - Width 1.2 -Post Debridement (cm) - Depth 0.1 -Total Square (Post) (cm) 1.20 -Area of Debridement (cm) - Length 1.0 -Area of Debridement (cm) - Width 1.2 -Total Square (Area) (cm) 1.20 -Tunneling No -Undermining/Tunneling No -Circular Undermining No -Wound/Ulcer Outcome Not Healed -Ulcer Cleansing Rinsed/ Irrigated with Saline -Foul Odor after Cleansing No -Bioengineered Tissue No -Bleeding Controlled with Pressure -Offloading No -Treatment Response Procedure Tolerated Well -Debridement - Subq, 1st 20sq cm No Pain Scale: 0-10 Numeric Is Patient Pain Free? Yes WC - Nurse 3 - General Ulcer D/C NN Start: 03/21/21 13:44 Freq: Status: Active Protocol: Activity Type Activity Date Activity User E-Sign Co-Sign Detail Recorded Client Recorded Date Recorded By Document 03/21/21 14:41 DL [id number] 03/21/21 14:44 DL 03/21/21 14:41 Wound Care Nurse 3 # 3 LEFT HIP -Ulcer Cleansing Rinsed/ Irrigated with Saline -Foul Odor after Cleansing No -Primary Dressing Applied Silvercel -Primary Dressing Covered/Secured with Dry Gauze, Secured with Tape -Silvercel 1 #2- R HIP -Ulcer Cleansing Soap and Water -Negative Pressure Wound Therapy N/A -Other Dressing slvercell -Primary Dressing Covered/Secured with Dry Gauze, Secured with Tape #1 Sacral -Ulcer Cleansing Rinsed/ Irrigated with Saline -Foul Odor after Cleansing No -Other Dressing silvercell -Primary Dressing Covered/Secured with Dry Gauze, Secured with Tape Treatment Response Procedure Tolerated Well Pain Scale: 0-10 Numeric Is Patient Pain Free? Yes WC - Visit Discharge Discharge Condition Stable Ambulatory Status Wheelchair Transportation Private Auto Facility Type Home Health Orders Sent Yes Assessment/Plan Assessment/Plan (1) Sacral decubitus ulcer: CODE(S): L89.159 - Pressure ulcer of sacral region, unspecified stage QUALIFIERS: Pressure injury stage: stage 4 Qualified Code(s): L89.154 - Pressure ulcer of sacral region, stage 4 (2) Multiple sclerosis: CODE(S): G35 - Multiple sclerosis (3) Debility: CODE(S): R53.81 - Other malaise (4) Pressure injury of left hip, unstageable: CODE(S): L89.220 - Pressure ulcer of left hip, unstageable (5) Pressure injury of right hip, stage 4: CODE(S): L89.214 - Pressure ulcer of right hip, stage 4 PLAN: Debridement done as documented above, procedure was well-tolerated. Cultures of her left hip showed E. coli and multiple skin contaminants, patient currently on a course of Bactrim and completed this. X-ray ordered of the sacrum previously which was negative for osteomyelitis. X-ray was ordered of the right hip which was negative, x-ray of the left hip could not exclude osteomyelitis and therefore an MRI is pending. For wound care will do silver cell and cover and foam dressing to all stage IV pressure injuries. Offloading recommended, a Roho cushion was ordered as patient is wheelchair-bound. We will also start the process of ordering an offloading low air loss mattress hospital bed at this time. Patient is currently utilizing a air loss mattress that she ordered online. She states that she will change positions as often as possible, however admits to sitting in her chair in 1 position for most of the day. I discussed snf with the patient and she continues to decline at this time. Increased protein intake, vitamin C and Zinc also recommended. Labs ordered,pending results. We will also refer for a surgical consult at [facility] given the depth of her bilateral hip pressure injuries. May benefit from surgical debridement. Her questions were answered and she was advised to call with any further questions or concerns. Follow-up in 1 week with myself. Didscussed with patient in detail that if any of her symptoms worsen such as an increase in drainage, pain, or fever or any other signsd of infection that she should go to the emergency department for evaluation. This note was generated with [employer] dictation software. It may contain incorrect words, spelling, and punctuation that were not noted in checking the note before signing.
--- NOTE | 2021-03-28 15:37 | WC ---
So from home health called informing that patient's left hip ulcer had green drainage but no odor with yellow slough to ulcer. Spoke to Mario Izaguirre CNP regarding this and he states that if ulcer gets worse while recovering with Covid, she needs to report to the ER. Spoke to So regarding this and she verbalizes understanding. Currently they are only seeing patient once a week but can increase visits to 3/week while patient is unable to come to wound center visits during quarantine. Any further concerns or issues, So was encouraged to notify us here at [facility].
[2021-04-04 13:48] VITALS: BP 94/65; PULSE 80; RESP 20; TEMP 36.8
--- NOTE | 2021-04-04 16:53 | PN.PCM_ITS ---
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 Byrnes is a 55-year-old who presents to the wound center due to nonhealing sacral ulcer. History of multiple sclerosis and has been whee lchair-bound for about 16 years. Ulcer noted about a month ago. Has been applying Adaptic and Aquacel to ulcer without any significant improvement. Was seen recently at the emergency room due to concerns by home health nurse for worsening ulcer. Started on antibiotics but she has noted no significant improvement. Foul smell. No significant drainage reported. Denies chills, fever or otherwise feeling of unwell. Progress of Wound: Patient's pressure injuries to her bilateral hips continue to deteriorate and her sacral pressure ulcer has deteriorated as well, will refer to plastic surgery at [facility] center as I believe her wounds would benefit from surgical debridement. She has an appointment set up for 04-17-21. she was recently diagnosed with COVID and a UTI and is currently on cefdinir. With regard to her COVID symptoms all of her respiratory symptoms have resolved. She continues to be unable to offload properly and continues to decline long-term referral Objective Data Objective Data Vital Signs: Vital Signs Temp Pulse Resp BP 98.3 F 80 20 H 94/65 04/04/21 13:48 04/04/21 13:48 04/04/21 13:48 04/04/21 13:48 Charges/Coding Procedures Integumentary [id number]: [id number] Natalia musc/fascia 20 sq cm/< Physical Exam Const alert, oriented x3 and no apparent distress General Appearance: cooperative and comfortable HEENT normocephalic and head/scalp atraumatic Head and Scalp: normal to inspection, normocephalic and atraumatic Eyes EOMs intact bilaterally Neck full ROM General: normal visual inspection Resp normal respiratory effort Effort and Inspection: able to speak in complete sentences Extremity normal to inspection Skin Wound Narrative: Stage IV pressure injury to sacrum with adherent slough, worse this week compared to last week, no signs of obvious infection at this time, stage IV pressure injury to right and left hip with large amount of adherent slough, and muscle fascia/tendon exposed, moderate clear drainage, no warmth or streaking at this time, Neuro oriented x3 and moves all extremities Psych mental status grossly normal Appearance: grossly normal Attitude: calm Speech: normal speech Debridement Note Debridement Note Wound debrided: Stage IV pressure injury to bilateral hips and sacrum Type of Debridement: Excisional debridement Anesthesia Used: 4% Lidocaine Solution Depth: Down to and including healthy tissue, in the subcutaneous layer and to muscle Percentage of wound debrided: 100 Instrument Used: 5mm curette and 7mm curette Tissue Removed: Slough and devitalized tissue Severity: Fat Layer Exposed Amount of bleeding with debridement: Mild Bleeding Controlled with: Pressure Patient tolerated procedure: Patient tolerated procedure well Post-Debridement Measurements and Additional Note: Post-Debridement Measurements/Treatment [facility] Nurse 1 - General Ulcer Assessment Start: 03/21/21 13:44 Freq: Status: Active Protocol: ASHLEY Activity Type Activity Date Activity User E-Sign Co-Sign Detail Recorded Client Recorded Date Recorded By Document 03/21/21 13:44 DL [id number] 03/21/21 14:00 DL Document 04/04/21 13:48 DL [id number] 04/04/21 14:07 DL 03/21/21 04/04/21 13:44 13:48 - Today's Visit Information Type of service Follow-up Visit Follow-up Visit (Physician/SUBSTATION TECHNICIAN (Physician/SUBSTATION TECHNICIAN ) ) Arrival Mode Wheelchair Wheelchair Transfer Assistance None Manual Transfer Assist (Other) x1 Patient Identification Verified (Name & Yes Yes ) Patient Requires Transmission-Based No No Precautions Vital Signs Temperature (97.8 F-99.1 F) 97.5 F L 98.3 F Temperature Source Temporal Temporal Pulse Rate (60-100) 78 80 Pulse Location Monitor Monitor Respiratory Rate (12-18) 18 20 H Respiratory rate source Observation Observation Blood Pressure (90/60-120/80) 99/60 94/65 Blood Pressure Mean (mm Hg) 73 74 Source Monitor Monitor History Since Last Visit- (Skip if this is Patient's initial visit) Have you changed medications since your No Yes last visit? Any new allergies or adverse reactions No No Had a fall/change in ADL's that may No No increase risk of falls Signs or symptoms of abuse and/or No No neglect since last visit Have you been in the hospital since your No Yes last visit? Has dressing in place as prescribed Yes Yes Has compression in place as prescribed N/A N/A Has offloadiing in place as prescribed Yes Yes Experienced any changes in pain level or No No management Pain Scale: 0-10 Numeric Is Patient Pain Free? Yes Yes WC - Nurse 1 - General Ulcer Measurement Start: 03/21/21 13:44 Freq: Status: Active Protocol: Activity Type Activity Date Activity User E-Sign Co-Sign Detail Recorded Client Recorded Date Recorded By Document 03/21/21 13:44 DL [id number] 03/21/21 14:00 DL Document 04/04/21 13:48 DL [id number] 04/04/21 14:07 DL 03/21/21 04/04/21 13:44 13:48 Wound Center Nurse 1 # 3 LEFT HIP -Current Size (cm) - Length 4.5 3.1 -Current Size (cm) - Width 4.3 3.7 -Current Size (cm) - Depth 1.1 1.1 -Total Square Cm 19.35 11.47 -Photo Taken No No -Maximum Distance #2 (cm) 0.7 -Circular Undermining Yes -Exudate Amt Large Medium -Exudate Type Yellow/Green Serosanguineous -Wound Margin Distinct, Distinct, Outline Outline Attached Attached -Granulation Amt None Present (0 None Present (0 %) %) -Necrosis Amt Large (67-100%) Large (67-100%) -Necrotic Tissue Type Adherent Slough Adherent Slough -Structure Exposed N/A N/A -Texture (Cydney-wound Skin Appearance) Scarring Scarring -Moisture (Cydney-wound Skin Appearance) No Abnormality No Abnormality -Color (Cydney-wound Skin Appearance) No Abnormality No Abnormality -Temperature (Cydney-wound Skin No Abnormality No Abnormality Appearance) (Pt Warm) (Pt Warm) -Tenderness on Palpation (Cydney-wound No No Skin Appearance) -Ulcer Cleansing Soap and Water Soap and Water -Foul Odor after Cleansing No Yes -Anesthetic Used 4% Lidocaine 4% Lidocaine Solution Solution #2- R HIP -Current Size (cm) - Length 1.8 3.3 -Current Size (cm) - Width 2.8 2.8 -Current Size (cm) - Depth 1.3 1 -Total Square Cm 5.04 9.24 -Photo Taken No -Maximum Distance #2 (cm) 1.7 -Circular Undermining Yes -Exudate Amt Large Medium -Exudate Type Yellow/Green Serosanguineous -Wound Margin Distinct, Distinct, Outline Outline Attached Attached -Granulation Amt None Present (0 %) -Granulation Quality Hyper- granulation, [place] -Necrosis Amt Large (67-100%) Large (67-100%) -Necrotic Tissue Type Adherent Slough Adherent Slough -Structure Exposed N/A N/A -Texture (Cydney-wound Skin Appearance) Scarring Scarring -Moisture (Cydney-wound Skin Appearance) No Abnormality No Abnormality -Color (Cydney-wound Skin Appearance) No Abnormality No Abnormality -Temperature (Cydney-wound Skin No Abnormality No Abnormality Appearance) (Pt Warm) (Pt Warm) -Tenderness on Palpation (Cydney-wound No No Skin Appearance) -Ulcer Cleansing Soap and Water Soap and Water -Foul Odor after Cleansing No Yes -Anesthetic Used 4% Lidocaine 4% Lidocaine Solution Solution #1 Sacral -Current Size (cm) - Length 1.3 1.4 -Current Size (cm) - Width 1.2 1 -Current Size (cm) - Depth 0.2 0.2 -Total Square Cm 1.56 1.4 -Photo Taken No No -Exudate Amt Small Small -Exudate Type Serosanguineous Serosanguineous -Wound Margin Distinct, Distinct, Outline Outline Attached Attached -Granulation Amt Small (1-33%) Large (67-100%) -Granulation Quality Pale,[place] Pale,[place] -Necrosis Amt Small (1-33%) Small (1-33%) -Necrotic Tissue Type Adherent Slough Adherent Slough -Structure Exposed N/A -Texture (Cydney-wound Skin Appearance) Scarring Scarring -Moisture (Cydney-wound Skin Appearance) No Abnormality No Abnormality -Color (Cydney-wound Skin Appearance) No Abnormality No Abnormality -Temperature (Cydney-wound Skin No Abnormality No Abnormality Appearance) (Pt Warm) (Pt Warm) -Tenderness on Palpation (Cydney-wound No Skin Appearance) -Ulcer Cleansing Soap and Water Soap and Water -Foul Odor after Cleansing No No -Anesthetic Used 4% Lidocaine 4% Lidocaine Solution Solution WC - Nurse 2 - General Ulcer CM Notes Start: 03/21/21 13:44 Freq: Status: Active Protocol: Activity Type Activity Date Activity User E-Sign Co-Sign Detail Recorded Client Recorded Date Recorded By Document 03/21/21 14:14 MW [id number] 03/21/21 14:22 MW Document 04/04/21 14:14 MW [id number] 04/04/21 14:28 MW 03/21/21 04/04/21 14:14 14:14 Wound Center Nurse 2 # 3 LEFT HIP -Time 14:15 14:16 -Correct Patient Yes Yes -Correct Side, Site, Position Yes Yes -Correct Procedure Yes Yes -Procedure Performed Yes Yes -Type of Procedure Debridement Debridement -Clinical Debridement Muscle / Fascia Muscle / Fascia -Tissue Removed Muscle,Fascia Muscle,Fascia -Post Debridement (cm) - Length 4.5 4.0 -Post Debridement (cm) - Width 4.5 4.0 -Post Debridement (cm) - Depth 2.4 1.5 -Total Square (Post) (cm) 20.25 16.00 -Area of Debridement (cm) - Length 4.5 4.0 -Area of Debridement (cm) - Width 4.5 4.0 -Total Square (Area) (cm) 20.25 16.00 -Tunneling No No -Undermining/Tunneling No No -Circular Undermining No Yes -Wound/Ulcer Outcome Not Healed Not Healed -Ulcer Cleansing Rinsed/ Rinsed/ Irrigated with Irrigated with Saline Saline -Foul Odor after Cleansing No No -Bioengineered Tissue No No -Bleeding Controlled with Pressure Pressure -Offloading No No -Treatment Response Procedure Procedure Tolerated Well Tolerated Well -Debridement - Muscle / Fascia, 1st Yes Yes 20sq cm -Debridement, Muscle/Fascia, ea addt'l 1 1 20sq cm or part thereof #2- R HIP -Time 14:15 14:16 -Correct Patient Yes Yes -Correct Side, Site, Position Yes Yes -Correct Procedure Yes Yes -Procedure Performed Yes Yes -Type of Procedure Debridement Debridement -Clinical Debridement Muscle / Fascia Muscle / Fascia -Tissue Removed Muscle,Fascia Muscle,Fascia -Post Debridement (cm) - Length 2.6 3.0 -Post Debridement (cm) - Width 3.5 3.5 -Post Debridement (cm) - Depth 1.5 1.2 -Total Square (Post) (cm) 9.10 10.50 -Area of Debridement (cm) - Length 2.6 3.0 -Area of Debridement (cm) - Width 3.5 3.5 -Total Square (Area) (cm) 9.10 10.50 -Tunneling No No -Undermining/Tunneling No No -Circular Undermining Yes Yes -Wound/Ulcer Outcome Not Healed Not Healed -Ulcer Cleansing Rinsed/ Rinsed/ Irrigated with Irrigated with Saline Saline -Foul Odor after Cleansing No No -Bioengineered Tissue No No -Bleeding Controlled with Pressure Pressure -Offloading No No -Treatment Response Procedure Procedure Tolerated Well Tolerated Well -Debridement - Muscle / Fascia, 1st No No 20sq cm #1 Sacral -Time 14:17 14:17 -Correct Patient Yes Yes -Correct Side, Site, Position Yes Yes -Correct Procedure Yes Yes -Procedure Performed Yes Yes -Type of Procedure Debridement Debridement -Clinical Debridement Subcutaneous Subcutaneous -Tissue Removed Subcutaneous Subcutaneous -Post Debridement (cm) - Length 1.0 1.6 -Post Debridement (cm) - Width 1.2 1.0 -Post Debridement (cm) - Depth 0.1 0.2 -Total Square (Post) (cm) 1.20 1.60 -Area of Debridement (cm) - Length 1.0 1.6 -Area of Debridement (cm) - Width 1.2 1.0 -Total Square (Area) (cm) 1.20 1.60 -Tunneling No No -Undermining/Tunneling No No -Circular Undermining No No -Wound/Ulcer Outcome Not Healed Not Healed -Ulcer Cleansing Rinsed/ Rinsed/ Irrigated with Irrigated with Saline Saline -Foul Odor after Cleansing No No -Bioengineered Tissue No No -Bleeding Controlled with Pressure Pressure -Offloading No No -Treatment Response Procedure Procedure Tolerated Well Tolerated Well -Debridement - Subq, 1st 20sq cm No Yes Pain Scale: 0-10 Numeric Is Patient Pain Free? Yes Yes - Nurse 3 - General Ulcer D/C NN Start: 03/21/21 13:44 Freq: Status: Active Protocol: Activity Type Activity Date Activity User E-Sign Co-Sign Detail Recorded Client Recorded Date Recorded By Document 03/21/21 14:41 DL [id number] 03/21/21 14:44 DL Document 04/04/21 14:39 AK [id number] 04/04/21 14:43 AK 03/21/21 04/04/21 14:41 14:39 Wound Care Nurse 3 # 3 LEFT HIP -Ulcer Cleansing Rinsed/ Rinsed/ Irrigated with Irrigated with Saline Saline -Foul Odor after Cleansing No No -Negative Pressure Wound Therapy N/A -Primary Dressing Applied Silvercel Silvercel -Other Dressing ABD -Primary Dressing Covered/Secured with Dry Gauze, Dry Gauze, Secured with Secured with Tape Tape -Silvercel 1 1 #2- R HIP -Ulcer Cleansing Soap and Water Rinsed/ Irrigated with Saline -Foul Odor after Cleansing No -Negative Pressure Wound Therapy N/A N/A -Other Dressing slvercell santyl -Primary Dressing Covered/Secured with Dry Gauze, Secured with Secured with Tape Tape #1 Sacral -Ulcer Cleansing Rinsed/ Rinsed/ Irrigated with Irrigated with Saline Saline -Foul Odor after Cleansing No -Primary Dressing Applied Silvercel -Other Dressing silvercell ABD -Primary Dressing Covered/Secured with Dry Gauze, Secured with Secured with Tape Tape -Silvercel 0 Treatment Response Procedure Tolerated Well Pain Scale: 0-10 Numeric Is Patient Pain Free? Yes Yes WC - Visit Discharge Discharge Condition Stable Stable Ambulatory Status Wheelchair Wheelchair Transportation Private Auto Private Auto Accompanied by Sister in law Medication Reconcilliation completed & No provided to patient/care provider Clinical Summary of Care Provided Yes Facility Type Home Health Orders Sent Yes Assessment/Plan Assessment/Plan (1) Sacral decubitus ulcer: CODE(S): L89.159 - Pressure ulcer of sacral region, unspecified stage QUALIFIERS: Pressure injury stage: stage 4 Qualified Code(s): L89.154 - Pressure ulcer of sacral region, stage 4 (2) Multiple sclerosis: CODE(S): G35 - Multiple sclerosis (3) Debility: CODE(S): R53.81 - Other malaise (4) Pressure injury of left hip, unstageable: CODE(S): L89.220 - Pressure ulcer of left hip, unstageable (5) Pressure injury of right hip, stage 4: CODE(S): L89.214 - Pressure ulcer of right hip, stage 4 PLAN: Debridement done as documented above, procedure was well-tolerated. Cultures of her left hip showed E. coli and multiple skin contaminants, patient currently on a course of Bactrim and completed this. X-ray ordered of the sacrum previously which was negative for osteomyelitis. X-ray was ordered of t he right hip which was negative, x-ray of the left hip could not exclude osteomyelitis and therefore an MRI is pending. For wound care will do silver cell and cover and foam dressing to all stage IV pressure injuries. Offloading recommended, a Roho cushion was ordered as patient is wheelchair-bound. We will also start the process of ordering an offloading low air loss mattress hospital bed at this time. Patient is currently utilizing a air loss mattress that she ordered online. She states that she will change positions as often as possible, however admits to sitting in her chair in 1 position for most of the day. I discussed long-term with the patient and she continues to decline at this time. Increased protein intake, vitamin C and Zinc also recommended. Labs ordered,pending results. We will also refer for a surgical consult at [facility] given the depth of her bilateral hip pressure injuries. May benefit from surgical debridement. Her questions were answered and she was advised to call with any further questions or concerns. Follow-up in 1 week with myself. Didscussed with patient in detail that if any of her symptoms worsen such as an increase in drainage, pain, or fever or any other signsd of infection that she should go to the emergency department for evaluation. This note was generated with [employer] dictation software. It may contain incorrect words, spelling, and punctuation that were not noted in checking the note before signing.
[2021-04-11 13:30] VITALS: BP 83/58; PULSE 75; TEMP 35.7
--- NOTE | 2021-04-11 16:20 | PCM.WC.PN ---
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 Byrnes is a 55-year-old who presents to the wound center due to nonhealing sacral ulcer. History of multiple sclerosis and has been wheelchair-bound for about 16 years. Ulcer noted about a month ago. Has been applying Adaptic and Aquacel to ulcer without any significant improvement. Was seen recently at the emergency room due to concerns by home health nurse for worsening ulcer. Started on antibiotics but she has noted no significant improvement. Foul smell. No significant drainage reported. Denies chills, fever or otherwise feeling of unwell. Progress of Wound: Patient's pressure injuries to her bilateral hips continue to deteriorate and her sacral pressure ulcer has deteriorated as well, will refer to plastic surgery at [facility] as I believe her wounds would benefit from surgical debridement. She has an appointment set up for 04-17-21. she was recently diagnosed with COVID and a UTI and is currently on cefdinir. With regard to her COVID symptoms all of her respiratory symptoms have resolved. She continues to be unable to offload properly and continues to decline long term referral Objective Data Objective Data Vital Signs: Vital Signs Temp Pulse Resp BP 96.2 F L 75 20 H 83/58 L 04/11/21 13:30 04/11/21 13:30 04/04/21 13:48 04/11/21 13:30 Charges/Coding Procedures Integumentary 111xxx-113xx: [id number] Natalia musc/fascia 20 sq cm/< Add On Codes: 82068 Natalia musc/fascia add-on Physical Exam Const alert, oriented x3 and no apparent distress General Appearance: cooperative and comfortable HEENT normocephalic and head/scalp atraumatic Head and Scalp: normal to inspection, normocephalic and atraumatic Eyes EOMs intact bilaterally Neck full ROM General: normal visual inspection Resp normal respiratory effort Effort and Inspection: able to speak in complete sentences Extremity normal to inspection Skin Wound Narrative: Stage IV pressure injury to sacrum with adherent slough, worse this week compared to last week, no signs of obvious infection at this time, stage IV pressure injury to right and left hip with large amount of adherent slough, and muscle fascia/tendon exposed, moderate clear drainage, no warmth or streaking at this time, Neuro oriented x3 and moves all extremities Psych mental status grossly normal Appearance: grossly normal Attitude: calm Speech: normal speech Debridement Note Debridement Note Wound debrided: Stage IV pressure injury to left and right hip and sacrum Type of Debridement: Excisional debridement Anesthesia Used: 4% Lidocaine Solution and 5% Lidocaine Gel Depth: Down to and including healthy tissue, in the subcutaneous layer and to muscle Percentage of wound debrided: 100 Instrument Used: 5mm curette Tissue Removed: Slough and devitalized tissue Severity: Fat Layer Exposed Amount of bleeding with debridement: Mild Bleeding Controlled with: Pressure Patient tolerated procedure: Patient tolerated procedure well Post-Debridement Measurements and Additional Note: Post-Debridement Measurements/Treatment - Nurse 1 - General Ulcer Assessment Start: 03/21/21 13:44 Freq: Status: Active Protocol: ASHLEY Activity Type Activity Date Activity User E-Sign Co-Sign Detail Recorded Client Recorded Date Recorded By Document 03/21/21 13:44 DL [id number] 03/21/21 14:00 DL Document 04/04/21 13:48 DL [id number] 04/04/21 14:07 DL Document 04/11/21 13:30 AK [id number] 04/11/21 13:52 AK 03/21/21 04/04/21 04/11/21 13:44 13:48 13:30 - Today's Visit Information Type of service Follow-up Visit Follow-up Visit Follow-up Visit (Physician/DIRECTOR OF CONSULTING SERVICES (Physician/DIRECTOR OF CONSULTING SERVICES (Physician/DIRECTOR OF CONSULTING SERVICES ) ) ) Arrival Mode Wheelchair Wheelchair Wheelchair Transfer Assistance None Manual Transfer Assist (Other) x1 Patient Identification Verified (Name & Yes Yes Yes ) Patient Requires Transmission-Based No No No Precautions Safety Precautions NA Vital Signs Temperature (97.8 F-99.1 F) 97.5 F L 98.3 F 96.2 F L Temperature Source Temporal Temporal Temporal Pulse Rate (60-100) 78 80 75 Pulse Location Monitor Monitor Monitor Respiratory Rate (12-18) 18 20 H Respiratory rate source Observation Observation Blood Pressure (90/60-120/80) 99/60 94/65 83/58 L Blood Pressure Mean (mm Hg) 73 74 66 Source Monitor Monitor Monitor History Since Last Visit- (Skip if this is Patient's initial visit) Have you changed medications since your No Yes No last visit? Any new allergies or adverse reactions No No No Had a fall/change in ADL's that may No No No increase risk of falls Signs or symptoms of abuse and/or No No No neglect since last visit Have you been in the hospital since your No Yes No last visit? Has dressing in place as prescribed Yes Yes Yes Has compression in place as prescribed N/A N/A No Has offloadiing in place as prescribed Yes Yes N/A Experienced any changes in pain level or No No No management Left Footwear Regular Shoe Right Footwear Regular Shoe Pain Scale: 0-10 Numeric Is Patient Pain Free? Yes Yes Yes WC - Nurse 1 - General Ulcer Measurement Start: 03/21/21 13:44 Freq: Status: Active Protocol: Activity Type Activity Date Activity User E-Sign Co-Sign Detail Recorded Client Recorded Date Recorded By Document 03/21/21 13:44 DL [id number] 03/21/21 14:00 DL Document 04/04/21 13:48 DL [id number] 04/04/21 14:07 DL Document 04/11/21 13:30 AK [id number] 04/11/21 13:52 AK 03/21/21 04/04/21 04/11/21 13:44 13:48 13:30 Wound Center Nurse 1 # 3 LEFT HIP -Combined with other wound No -Current Size (cm) - Length 4.5 3.1 3.6 -Current Size (cm) - Width 4.3 3.7 3.4 -Current Size (cm) - Depth 1.1 1.1 0.4 -Total Square Cm 19.35 11.47 12.24 -Photo Taken No No No -Tunneling No -Undermining/Tunneling No -Maximum Distance #2 (cm) 0.7 -Circular Undermining Yes No -Exudate Amt Large Medium Medium -Exudate Type Yellow/Green Serosanguineous Serosanguineous -Wound Margin Distinct, Distinct, Thickened & Outline Outline Rolled Under Attached Attached -Granulation Amt None Present (0 None Present (0 None Present (0 %) %) %) -Granulation Quality N/A -Slough/Fibrin Yes -Necrosis Amt Large (67-100%) Large (67-100%) Medium (34-66%) -Necrotic Tissue Type Adherent Slough Adherent Slough -Structure Exposed N/A N/A N/A -Texture (Cydney-wound Skin Appearance) Scarring Scarring No Abnormality, Assessed -Moisture (Cydney-wound Skin Appearance) No Abnormality No Abnormality No Abnormality, Assessed -Color (Cydney-wound Skin Appearance) No Abnormality No Abnormality No Abnormality, Assessed -Temperature (Cydney-wound Skin No Abnormality No Abnormality No Abnormality Appearance) (Pt Warm) (Pt Warm) (Pt Warm) -Tenderness on Palpation (Cydney-wound No No No Skin Appearance) -Ulcer Cleansing Soap and Water Soap and Water Soap and Water -Foul Odor after Cleansing No Yes No -Anesthetic Used 4% Lidocaine 4% Lidocaine 4% Lidocaine Solution Solution Solution #2- R HIP -Combined with other wound No -Current Size (cm) - Length 1.8 3.3 4 -Current Size (cm) - Width 2.8 2.8 3 -Current Size (cm) - Depth 1.3 1 0.4 -Total Square Cm 5.04 9.24 12 -Photo Taken No No -Tunneling No -Undermining/Tunneling No -Maximum Distance #2 (cm) 1.7 -Circular Undermining Yes No -Change in Wound Grade/Stage No -Exudate Amt Large Medium Medium -Exudate Type Yellow/Green Serosanguineous Serosanguineous -Wound Margin Distinct, Distinct, Distinct, Outline Outline Outline Attached Attached Attached -Granulation Amt None Present (0 None Present (0 %) %) -Granulation Quality Hyper- N/A granulation, Archdale -Slough/Fibrin Yes -Necrosis Amt Large (67-100%) Large (67-100%) Medium (34-66%) -Necrotic Tissue Type Adherent Slough Adherent Slough Adherent Slough -Structure Exposed N/A N/A N/A -Texture (Cydney-wound Skin Appearance) Scarring Scarring No Abnormality, Assessed -Moisture (Cydney-wound Skin Appearance) No Abnormality No Abnormality No Abnormality, Assessed -Color (Cydney-wound Skin Appearance) No Abnormality No Abnormality No Abnormality, Assessed -Temperature (Cydney-wound Skin No Abnormality No Abnormality No Abnormality Appearance) (Pt Warm) (Pt Warm) (Pt Warm) -Tenderness on Palpation (Cydney-wound No No Yes Skin Appearance) -Ulcer Cleansing Soap and Water Soap and Water Soap and Water -Foul Odor after Cleansing No Yes No -Anesthetic Used 4% Lidocaine 4% Lidocaine 4% Lidocaine Solution Solution Solution #1 Sacral -Combined with other wound No -Current Size (cm) - Length 1.3 1.4 0.5 -Current Size (cm) - Width 1.2 1 0.3 -Current Size (cm) - Depth 0.2 0.2 0.2 -Total Square Cm 1.56 1.4 0.15 -Photo Taken No No No -Epithelialization None Present -Tunneling No -Undermining/Tunneling No -Circular Undermining No -Change in Wound Grade/Stage No -Exudate Amt Small Small Small -Exudate Type Serosanguineous Serosanguineous Serosanguineous -Wound Margin Distinct, Distinct, Outline Outline Attached Attached -Granulation Amt Small (1-33%) Large (67-100%) None Present (0 %) -Granulation Quality Pale,Archdale Pale,[place]dale N/A -Slough/Fibrin No -Necrosis Amt Small (1-33%) Small (1-33%) None Present (0 %) -Necrotic Tissue Type Adherent Slough Adherent Slough -Structure Exposed N/A -Texture (Cydney-wound Skin Appearance) Scarring Scarring No Abnormality, Assessed -Moisture (Cydney-wound Skin Appearance) No Abnormality No Abnormality No Abnormality, Assessed -Color (Cydney-wound Skin Appearance) No Abnormality No Abnormality No Abnormality, Assessed -Temperature (Cydney-wound Skin No Abnormality No Abnormality No Abnormality Appearance) (Pt Warm) (Pt Warm) (Pt Warm) -Tenderness on Palpation (Cydney-wound No No Skin Appearance) -Ulcer Cleansing Soap and Water Soap and Water Rinsed/ Irrigated with Saline -Foul Odor after Cleansing No No No -Anesthetic Used 4% Lidocaine 4% Lidocaine 4% Lidocaine Solution Solution Solution WC - Nurse 2 - General Ulcer CM Notes Start: 03/21/21 13:44 Freq: Status: Active Protocol: Activity Type Activity Date Activity User E-Sign Co-Sign Detail Recorded Client Recorded Date Recorded By Document 03/21/21 14:14 MW [id number] 03/21/21 14:22 MW Document 04/04/21 14:14 MW [id number] 04/04/21 14:28 MW Document 04/11/21 13:52 MW [id number] 01/27/22 14:02 MW 03/21/21 04/04/21 04/11/21 14:14 14:14 13:52 Wound Center Nurse 2 # 3 LEFT HIP -Time 14:15 14:16 13:53 -Correct Patient Yes Yes Yes -Correct Side, Site, Position Yes Yes Yes -Correct Procedure Yes Yes Yes -Procedure Performed Yes Yes Yes -Type of Procedure Debridement Debridement Debridement -Clinical Debridement Muscle / Fascia Muscle / Fascia Muscle / Fascia -Tissue Removed Muscle,Fascia Muscle,Fascia Muscle,Fascia -Post Debridement (cm) - Length 4.5 4.0 3.3 -Post Debridement (cm) - Width 4.5 4.0 3.7 -Post Debridement (cm) - Depth 2.4 1.5 1.5 -Total Square (Post) (cm) 20.25 16.00 12.21 -Area of Debridement (cm) - Length 4.5 4.0 3.3 -Area of Debridement (cm) - Width 4.5 4.0 3.7 -Total Square (Area) (cm) 20.25 16.00 12.21 -Tunneling No No No -Undermining/Tunneling No No No -Circular Undermining No Yes Yes -Wound/Ulcer Outcome Not Healed Not Healed Not Healed -Ulcer Cleansing Rinsed/ Rinsed/ Rinsed/ Irrigated with Irrigated with Irrigated with Saline Saline Saline -Foul Odor after Cleansing No No No -Bioengineered Tissue No No No -Bleeding Controlled with Pressure Pressure Pressure -Offloading No No No -Treatment Response Procedure Procedure Procedure Tolerated Well Tolerated Well Tolerated Well -Debridement - Muscle / Fascia, 1st Yes Yes Yes 20sq cm -Debridement, Muscle/Fascia, ea addt'l 1 1 1 20sq cm or part thereof #2- R HIP -Time 14: 14:16 13:53 -Correct Patient Yes Yes Yes -Correct Side, Site, Position Yes Yes Yes -Correct Procedure Yes Yes Yes -Procedure Performed Yes Yes Yes -Type of Procedure Debridement Debridement Debridement -Clinical Debridement Muscle / Fascia Muscle / Fascia Muscle / Fascia -Tissue Removed Muscle,Fascia Muscle,Fascia Muscle,Fascia -Post Debridement (cm) - Length 2.6 3.0 2.9 -Post Debridement (cm) - Width 3.5 3.5 3.5 -Post Debridement (cm) - Depth 1.5 1.2 1.2 -Total Square (Post) (cm) 9.10 10.50 10.15 -Area of Debridement (cm) - Length 2.6 3.0 2.9 -Area of Debridement (cm) - Width 3.5 3.5 3.5 -Total Square (Area) (cm) 9.10 10.50 10.15 -Tunneling No No No -Undermining/Tunneling No No No -Circular Undermining Yes Yes No -Wound/Ulcer Outcome Not Healed Not Healed Not Healed -Ulcer Cleansing Rinsed/ Rinsed/ Rinsed/ Irrigated with Irrigated with Irrigated with Saline Saline Saline -Foul Odor after Cleansing No No No -Bioengineered Tissue No No No -Bleeding Controlled with Pressure Pressure Pressure -Offloading No No No -Treatment Response Procedure Procedure Procedure Tolerated Well Tolerated Well Tolerated Well -Debridement - Muscle / Fascia, 1st No No No 20sq cm #1 Sacral -Time 14:17 14:17 13:54 -Correct Patient Yes Yes Yes -Correct Side, Site, Position Yes Yes Yes -Correct Procedure Yes Yes Yes -Procedure Performed Yes Yes Yes -Type of Procedure Debridement Debridement Debridement -Clinical Debridement Subcutaneous Subcutaneous Subcutaneous -Tissue Removed Subcutaneous Subcutaneous Subcutaneous -Post Debridement (cm) - Length 1.0 1.6 0.9 -Post Debridement (cm) - Width 1.2 1.0 1.9 -Post Debridement (cm) - Depth 0.1 0.2 0.2 -Total Square (Post) (cm) 1.20 1.60 1.71 -Area of Debridement (cm) - Length 1.0 1.6 0.9 -Area of Debridement (cm) - Width 1.2 1.0 1.9 -Total Square (Area) (cm) 1.20 1.60 1.71 -Tunneling No No No -Undermining/Tunneling No No No -Circular Undermining No No No -Wound/Ulcer Outcome Not Healed Not Healed Not Healed -Ulcer Cleansing Rinsed/ Rinsed/ Rinsed/ Irrigated with Irrigated with Irrigated with Saline Saline Saline -Foul Odor after Cleansing No No No -Bioengineered Tissue No No No -Bleeding Controlled with Pressure Pressure Pressure -Offloading No No No -Treatment Response Procedure Procedure Procedure Tolerated Well Tolerated Well Tolerated Well -Debridement - Subq, 1st 20sq cm No Yes No Pain Scale: 0-10 Numeric Is Patient Pain Free? Yes Yes Yes WC - Nurse 3 - General Ulcer D/C NN Start: 03/21/21 13:44 Freq: Status: Active Protocol: Activity Type Activity Date Activity User E-Sign Co-Sign Detail Recorded Client Recorded Date Recorded By Document 03/21/21 14:41 DL [id number] 03/21/21 14:44 DL Document 04/04/21 14:39 AK [id number] 04/04/21 14:43 AK Document 04/11/21 14:23 AK [id number] 04/11/21 14:25 AK 03/21/21 04/04/21 04/11/21 14:41 14:39 14:23 Wound Care Nurse 3 # 3 LEFT HIP -Ulcer Cleansing Rinsed/ Rinsed/ Rinsed/ Irrigated with Irrigated with Irrigated with Saline Saline Saline -Foul Odor after Cleansing No No No -Negative Pressure Wound Therapy N/A N/A -Primary Dressing Applied Silvercel Silvercel Silvercel -Other Dressing ABD ABD -Primary Dressing Covered/Secured with Dry Gauze, Dry Gauze, Secured with Secured with Secured with Tape Tape Tape -Silvercel 1 1 1 #2- R HIP -Ulcer Cleansing Soap and Water Rinsed/ Rinsed/ Irrigated with Irrigated with Saline Saline -Foul Odor after Cleansing No No -Negative Pressure Wound Therapy N/A N/A N/A -Other Dressing slvercell santyl santyl ABD -Primary Dressing Covered/Secured with Dry Gauze, Secured with Secured with Secured with Tape Tape Tape #1 Sacral -Ulcer Cleansing Rinsed/ Rinsed/ Rinsed/ Irrigated with Irrigated with Irrigated with Saline Saline Saline -Foul Odor after Cleansing No No -Negative Pressure Wound Therapy N/A -Primary Dressing Applied Silvercel Silvercel -Other Dressing silvercell ABD ABD -Primary Dressing Covered/Secured with Dry Gauze, Secured with Secured with Secured with Tape Tape Tape -Silvercel 0 0 Treatment Response Procedure Tolerated Well Pain Scale: 0-10 Numeric Is Patient Pain Free? Yes Yes Yes WC - Visit Discharge Discharge Condition Stable Stable Stable Ambulatory Status Wheelchair Wheelchair Wheelchair Transportation Private Auto Private Auto Private Auto Accompanied by Sister in law sister in law Medication Reconcilliation completed & No No provided to patient/care provider Clinical Summary of Care Provided Yes Yes Facility Type Home Health Orders Sent Yes Assessment/Plan Assessment/Plan (1) Sacral decubitus ulcer: CODE(S): L89.159 - Pressure ulcer of sacral region, unspecified stage QUALIFIERS: Pressure injury stage: stage 4 Qualified Code(s): L89.154 - Pressure ulcer of sacral region, stage 4 (2) Multiple sclerosis: CODE(S): G35 - Multiple sclerosis (3) Debility: CODE(S): R53.81 - Other malaise (4) Pressure injury of left hip, unstageable: CODE(S): L89.220 - Pressure ulcer of left hip, unstageable (5) Pressure injury of right hip, stage 4: CODE(S): L89.214 - Pressure ulcer of right hip, stage 4 PLAN: Debridement done as documented above, procedure was well-tolerated. Cultures of her left hip showed E. coli and multiple skin contaminants, patient currently on a course of Bactrim and completed this. X-ray ordered of the sacrum previously which was negative for osteomyelitis. X-ray was ordered of the right hip which was negative, x-ray of the left hip could not exclude osteomyelitis and therefore an MRI is pending. For wound care will do silver cell and cover and foam dressing to all stage IV pressure injuries. Offloading recommended, a Roho cushion was ordered as patient is wheelchair-bound. We will also start the process of ordering an offloading low air loss mattress hospital bed at this time. Patient is currently utilizing a air loss mattress that she ordered online. She states that she will change positions as often as possible, however admits to sitting in her chair in 1 position for most of the day. I discussed long term with the patient and she continues to decline at this time. Increased protein intake, vitamin C and Zinc also recommended. Labs ordered,pending results. We will also refer for a surgical consult at [facility] given the depth of her bilateral hip pressure injuries. May benefit from surgical debridement. Her questions were answered and she was advised to call with any further questions or concerns. Follow-up in 1 week with myself. Didscussed with patient in detail that if any of her symptoms worsen such as an increase in drainage, pain, or fever or any other signsd of infection that she should go to the emergency department for evaluation. This note was generated with [employer] software. It may contain incorrect words, spelling, and punctuation that were not noted in checking the note before signing.
== END 2021-04-15 23:59 | disposition home or self-care (01) ==
LOC: WC 13:30
PROVIDERS: PCP Family Medicine; Referring Provider Internal Medicine; Visit Provider Nurse Practitioner Family
DX: L89.154 Pressure ulcer of sacral region, stage 4 (principal); L89.214 Pressure ulcer of right hip, stage 4; L89.224 Pressure ulcer of left hip, stage 4; G35 Multiple sclerosis; Z99.3 Dependence on wheelchair; R53.81 Other malaise; Z79.899 Other long term (current) drug therapy; Z87.440 Personal history of urinary (tract) infections; Z86.16 Personal history of COVID-19
CPT/HCPCS: 11042; 11043; 11046

== ENCOUNTER 2021-04-15 18:16 | Outpatient (RCR) | payer OTHER, SELFPAY ==
[2018-02-01 11:47] VITALS: BMI 15.0
== END 2021-04-15 23:59 ==
LOC: HHLAB 18:16
PROVIDERS: PCP Family Medicine; Visit Provider Family Medicine
DX: R35.0 Frequency of micturition (principal)
CPT/HCPCS: 87077; 87086; 87088; 87186

== ENCOUNTER 2021-04-16 08:57 | Outpatient (RCR) | payer OTHER, SELFPAY ==
[2018-02-01 11:47] VITALS: BMI 15.0
== END 2021-05-13 23:59 | disposition home health service (06) ==
LOC: HHLAB 08:57
PROVIDERS: PCP Family Medicine; Visit Provider Family Medicine
DX: R35.0 Frequency of micturition (principal)

== ENCOUNTER 2021-05-31 17:34 | Outpatient (RCR) | payer OTHER, SELFPAY ==
[2018-02-01 11:47] VITALS: BMI 15.0
[2021-05-31 17:39] LABS: Absolute Lymphocyte Count 1.83 X10^3/uL (0.83-4.51); Absolute Neutrophil Count 3.4 X10^3/uL (2.0-7.7); Basophil# 0.04 X10^3/uL; Basophil% 0.6 % (0-1); Eosinophil# 0.46 X10^3/uL; Eosinophils% 7.1 % (0-5); Hematocrit 36.8 % (37-47); Hemoglobin 11.9 g/dL (12.0-15.0); Lymphocyte # 1.83 X10^3/ul (0.83-4.51); Lymphocyte % 28.3 % (19-41); Mean Corp Hgb Conc 32.3 g/dL (32-36); Mean Corpuscular Volume 98.9 fL (81-99); Mean Platelet Vol. 12.7 fl (6.2-12.0); Monocyte# 0.69 X10^3/uL; Monocyte% 10.7 % (0-10); NRBC Flagged by Analyzer 0 % (0-5); Neutrophil # 3.43 X10^3/uL (2.7-7.7); Platelet Count 251 K/mm3 (150-450); RBC Distribution Width CV 15.7 % (11.6-14.6); RBC Distribution Width SD 57.1 fl (35.1-43.9); Red Blood Count 3.72 M/mm3 (4.2-5.4); White Blood Count 6.5 K/mm3 (4.4-11.0)
== END 2021-06-13 23:59 | disposition home or self-care (01) ==
LOC: HHLAB 17:34
PROVIDERS: PCP Family Medicine; Visit Provider Internal Medicine Medical Oncology
DX: C50.412 Malignant neoplasm of upper-outer quadrant of left female breast (principal); Z17.0 Estrogen receptor positive status [ER+]
CPT/HCPCS: 85025

== ENCOUNTER 2021-06-05 09:37 | Outpatient (CLI) | payer OTHER, SELFPAY ==
[2018-02-01 11:47] VITALS: BMI 15.0
[2021-06-05 12:00] LABS: ALB/GLOB Ratio 0.9 RATIO (0.9-2.4); AST(SGOT) 16 U/L (15-37); Alanine Aminotransfer ALT/SGPT 18 U/L (13-56); Albumin, Serum 3.5 g/dL (3.2-5.0); Alkaline Phosphatase 64 U/L (45-117); Anion Gap 4 (5-15); BUN 21 mg/dL (7-18); BUN/Creat Ratio 46.5 RATIO (10-20); Calcium,Total 9.1 mg/dL (8.5-10.1); Chloride 105 mmol/L (98-107); Creatinine, Serum 0.45 mg/dL (0.55-1.02); EST Glomerular Filtration Rate 153 mL/min (>60); Est Glom Filt Rate - Afr Amer 185 mL/min (>60); Globulin 3.9 g/dL (2.2-4.2); Glucose 94 mg/dL (74-106); Potassium 4.1 mmol/L (3.5-5.1); Protein, Total 7.4 g/dL (6.4-8.2); Sodium Level 140 mmol/L (136-145)
== END 2021-06-05 23:59 | disposition home or self-care (01) ==
LOC: LAB 09:38
PROVIDERS: PCP Family Medicine; Referring Provider Internal Medicine Medical Oncology; Visit Provider Internal Medicine Medical Oncology
DX: C50.412 Malignant neoplasm of upper-outer quadrant of left female breast (principal); Z17.0 Estrogen receptor positive status [ER+]
CPT/HCPCS: 36415; 80053

== ENCOUNTER 2021-06-13 13:30 | Outpatient (RCR) | payer OTHER, SELFPAY ==
[2018-02-01 11:47] VITALS: BMI 15.0
[2021-04-16 00:38] VITALS: BP 83/58; PULSE 75; RESP 20; TEMP 35.7
--- NOTE | 2021-04-25 17:44 | WC ---
Spoke to patient about wound care and appointments. She had a surgical consult with Dr. Joy at [facility] on 04/17/21. She stated he debrided her wounds on right and left hip and started a wound vac on the left hip. She will be staying with this for future wound care appointments. Mario Izaguirre CORK INSULATOR notified. Will discharge from clinic and transfer care to [facility] per patient request. Patient stated she was very pleased with our care and was thankful for the referral to Dr. Joy.
[2021-05-30 13:45] VITALS: BP 90/61; PULSE 86; RESP 20; TEMP 37.3
--- NOTE | 2021-05-30 17:17 | HP.PCM_ITS ---
History of Present Illness Date of Service: 05/30/21 Chief Complaint: Nonhealing sacral ulcer, stage IV pressure injuries to bi lateral hips History of Wound: Ms. 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 She has a history of multiple sclerosis and has been wheelchair- bound for about 16 years. She has been seen by this wound center in the past, and was referred to Dr. Bond at [facility] for surgical intervention to her wounds in 2020. She states due to insurance changes she is no longer able to see Dr. Bond. She currently has wound VACs applied to both her left and right hips at 125 mmHg being changed 3 times a week by home health services, and her sacral wound is being treated with Aquacel Ag and being changed 3 times a week as well. She states that all 3 of her wounds have improved significantly since she was last here, and currently denies any systemic or local signs or symptoms of infection. 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 Past medical, family, and social history reviewed and not pertinent to the current visit and all other systems reviewed and negative with exception of those listed above. [facility] Medical History (Updated 05/30/21 @ 17:32 by Mario Izaguirre NP, CLAIMS PROCESSOR-C) Breast cancer Chronic indwelling Pandey catheter Multiple sclerosis Pressure injury of left hip, stage 4 Pressure injury of left hip, unstageable Pressure injury of right hip, stage 2 Pressure injury of right hip, stage 4 Pressure injury of sacral region, stage 4 Home Medications baclofen 10 mg tablet 20 mg PO Q4H 02/28/17 [History Last Taken 10/12/17 06:00] cholecalciferol (vitamin D3) 10,000 unit PO DAILY 10/09/17 [History Last Taken Unknown] dalfampridine 10 mg PO BID PRN PRN 03/24/18 [History Last Taken 07/19/20] Metamucil Fiber Singles 1 packet PO DAILY 07/23/20 [History Last Taken Unknown] tamoxifen 20 mg PO DAILY 07/23/20 [History Last Taken Unknown] nitrofurantoin macrocrystal 25 mg capsule 50 mg PO QHS 11/06/20 [History Last Taken Unknown] Linzess 145 mcg PO DAILY 12/02/20 [History Last Taken Unknown] cephalexin 500 mg PO Q6 #40 cap 12/02/20 [Rx Last Taken Unknown] doxycycline monohydrate 100 mg PO BID #20 cap 12/02/20 [Rx Last Taken Unknown] metronidazole 500 mg tablet 500 mg PO Q8H #21 tab 02/06/21 [Rx Last Taken Unknown] cephalexin 500 mg PO Q12 7 Days #14 capsule 03/27/21 [Rx Last Taken Unknown] cefdinir 300 mg PO BID 04/04/21 [History Last Taken Unknown] Allergy/AdvReac Type Severity Reaction Status Date / Time ciprofloxacin Allergy Mild unknown Verified 03/27/21 08:08 sulfamethoxazole AdvReac Severe Nausea Verified 03/27/21 08:08 [From Bactrim] trimethoprim [From Bactrim] AdvReac Severe Nausea Verified 03/27/21 08:08 Family History Aunt Breast cancer Mother Diabetes Surgical History h/o tonsillectomy S/P left mastectomy (~10/12/17) Social History household members: spouse Smoking Status: Former smoker alcohol intake: never ROS ROS Narrative Negative x10 systems with the exception of those listed above. Vital Signs Vital Signs Vital Signs: 05/30/21 13:45 Temperature 99.1 F Temperature Source Temporal Pulse Rate 86 Respiratory Rate 20 H Blood Pressure 90/61 Blood Pressure Mean 70 Blood Pressure Source Monitor Physical Exam Const alert, oriented x3 and no apparent distress General Appearance: cooperative and comfortable HEENT normocephalic and head/scalp atraumatic Head and Scalp: normal to inspection, normocephalic and atraumatic Eyes EOMs intact bilaterally Neck full ROM General: normal visual inspection Resp normal respiratory effort and clear to auscultation bilaterally Effort and Inspection: able to speak in complete sentences Cardio regular rate and regular rhythm Extremity normal to inspection Skin Wound Narrative: Stage IV pressure injury to sacrum with adherent slough, no signs of obvious infection at this time. Stage IV pressure injury to right and left hips with adherent slough and muscle fascia/tendon exposed, no signs of obvious infection at this time. Neuro oriented x3 and moves all extremities Psych mental status grossly normal Appearance: grossly normal Attitude: calm Speech: normal speech Debridement Note Debridement Note Wound debrided: Stage IV to bilateral hips and sacrum Wound Grade/Stage: Zavaleta 2 Anesthesia Used: 5% Lidocaine Gel Depth: in the subcutaneous layer (Sacrum) and to muscle (Hips) Percentage of wound debrided: 100 Instrument Used: 5mm curette Tissue Removed: Slough and devitalized tissue Severity: Necrosis of Muscle Amount of bleeding with debridement: Mild Bleeding Controlled with: Pressure Patient tolerated procedure: Patient tolerated procedure well Post-Debridement Measurements and Additional Note: Post-Debridement Measurements/Treatment - Nurse 1 - General Ulcer Assessment Start: 05/30/21 13:45 Freq: Status: Active Protocol: ASHLEY Activity Type Activity Date Activity User E-Sign Co-Sign Detail Recorded Client Recorded Date Recorded By Document 05/30/21 13:45 DL [id number] 05/30/21 14:13 DL 05/30/21 13:45 WC - Today's Visit Information Type of service Initial Visit Arrival Mode Wheelchair Transfer Assist (Other) x2 Patient Identification Verified (Name & Yes ) Patient Requires Transmission-Based Yes Precautions Safety Precautions Fall Prevention Vital Signs Temperature (97.8 F-99.1 F) 99.1 F Temperature Source Temporal Pulse Rate (60-100) 86 Pulse Location Monitor Respiratory Rate (12-18) 20 H Respiratory rate source Observation Blood Pressure (90/60-120/80) 90/61 Blood Pressure Mean 70 Source Monitor Pain Scale: 0-10 Numeric Is Patient Pain Free? Yes - Nurse 1 - General Ulcer Measurement Start: 05/30/21 13:45 Freq: Status: Active Protocol: Activity Type Activity Date Activity User E-Sign Co-Sign Detail Recorded Client Recorded Date Recorded By Document 05/30/21 13:45 DL [id number] 05/30/21 14:13 DL 05/30/21 13:45 Wound Center Nurse 1 # 3 LEFT HIP -Current Size (cm) - Length 1.8 -Current Size (cm) - Width 1 -Current Size (cm) - Depth 1.8 -Total Square Cm 1.8 -Photo Taken Yes -Tunneling Position (O'clock) 3 -Tunneling Distance (cm) 2.4 -Classification - Thickness Full Thickness without Exposed Support Structure -Exudate Amt Medium -Exudate Type Serosanguineous -Wound Margin Distinct, Outline Attached -Granulation Amt Large (67-100%) -Granulation Quality Red -Necrosis Amt Small (1-33%) -Necrotic Tissue Type Adherent Slough -Structure Exposed N/A -Texture (Cydney-wound Skin Appearance) Scarring -Moisture (Cydney-wound Skin Appearance) No Abnormality -Color (Cydney-wound Skin Appearance) No Abnormality -Temperature (Cydney-wound Skin No Abnormality Appearance) (Pt Warm) -Tenderness on Palpation (Cydney-wound No Skin Appearance) -Ulcer Cleansing Soap and Water -Foul Odor after Cleansing No -Anesthetic Used 4% Lidocaine Solution #2- R HIP -Current Size (cm) - Length 1.4 -Current Size (cm) - Width 0.7 -Current Size (cm) - Depth 1.5 -Total Square Cm 0.98 -Photo Taken Yes -Tunneling Position (O'clock) 4 -Tunneling Distance (cm) 2.8 -Classification - Thickness Full Thickness without Exposed Support Structure -Exudate Amt Medium -Exudate Type Serosanguineous -Wound Margin Distinct, Outline Attached -Granulation Amt Large (67-100%) -Granulation Quality Red -Necrosis Amt Small (1-33%) -Necrotic Tissue Type Adherent Slough -Structure Exposed N/A -Texture (Cydney-wound Skin Appearance) Scarring -Moisture (Cydney-wound Skin Appearance) No Abnormality -Color (Cydney-wound Skin Appearance) No Abnormality -Temperature (Cydney-wound Skin No Abnormality Appearance) (Pt Warm) -Tenderness on Palpation (Cydney-wound No Skin Appearance) -Foul Odor after Cleansing No -Anesthetic Used 4% Lidocaine Solution #1 Sacral -Current Size (cm) - Length 1.8 -Current Size (cm) - Width 2.5 -Current Size (cm) - Depth 0.4 -Total Square Cm 4.50 -Photo Taken Yes -Exudate Amt Small -Exudate Type Serosanguineous -Wound Margin Distinct, Outline Attached -Granulation Amt Large (67-100%) -Granulation Quality Pale,Judson -Necrosis Amt Small (1-33%) -Necrotic Tissue Type Adherent Slough -Structure Exposed N/A -Texture (Cydney-wound Skin Appearance) Scarring -Moisture (Cydney-wound Skin Appearance) No Abnormality -Color (Cydney-wound Skin Appearance) No Abnormality -Temperature (Cydney-wound Skin No Abnormality Appearance) (Pt Warm) -Tenderness on Palpation (Cydney-wound No Skin Appearance) -Ulcer Cleansing Soap and Water -Foul Odor after Cleansing No -Anesthetic Used 4% Lidocaine Solution WC - Nurse 2 - General Ulcer CM Notes Start: 05/30/21 13:45 Freq: Status: Active Protocol: Activity Type Activity Date Activity User E-Sign Co-Sign Detail Recorded Client Recorded Date Recorded By Document 05/30/21 14:44 MW [id number] 05/30/21 14:56 MW 05/30/21 14:44 Wound Center Nurse 2 # 3 LEFT HIP -Time 14:46 -Correct Patient Yes -Correct Side, Site, Position Yes -Correct Procedure Yes -Procedure Performed Yes -Type of Procedure Debridement -Clinical Debridement Muscle / Fascia -Tissue Removed Muscle,Fascia -Post Debridement (cm) - Length 1.3 -Post Debridement (cm) - Width 2.0 -Post Debridement (cm) - Depth 2.8 -Total Square (Post) (cm) 2.60 -Area of Debridement (cm) - Length 1.3 -Area of Debridement (cm) - Width 2.0 -Total Square (Area) (cm) 2.60 -Tunneling No -Undermining/Tunneling No -Circular Undermining No -Wound/Ulcer Outcome Not Healed -Ulcer Cleansing Rinsed/ Irrigated with Saline -Foul Odor after Cleansing No -Bioengineered Tissue No -Bleeding Controlled with Pressure -Treatment Response Procedure Tolerated Well -Offloading No -Assistive Device(s) Wheelchair -Debridement - Muscle / Fascia, 1st Yes 20sq cm #2- R HIP -Time 14:48 -Correct Patient Yes -Correct Side, Site, Position Yes -Correct Procedure Yes -Procedure Performed Yes -Type of Procedure Debridement -Clinical Debridement Muscle / Fascia -Tissue Removed Muscle,Fascia -Post Debridement (cm) - Length 0.9 -Post Debridement (cm) - Width 1.5 -Post Debridement (cm) - Depth 2.6 -Total Square (Post) (cm) 1.35 -Area of Debridement (cm) - Length 0.9 -Area of Debridement (cm) - Width 2.6 -Total Square (Area) (cm) 2.34 -Tunneling No -Undermining/Tunneling No -Circular Undermining No -Wound/Ulcer Outcome Not Healed -Ulcer Cleansing Rinsed/ Irrigated with Saline -Foul Odor after Cleansing No -Bioengineered Tissue No -Bleeding Controlled with Pressure -Treatment Response Procedure Tolerated Well -Offloading No -Debridement - Muscle / Fascia, 1st No 20sq cm #1 Sacral -Time 14:48 -Correct Patient Yes -Correct Side, Site, Position Yes -Correct Procedure Yes -Procedure Performed Yes -Type of Procedure Debridement -Clinical Debridement Subcutaneous -Tissue Removed Subcutaneous -Post Debridement (cm) - Length 2.5 -Post Debridement (cm) - Width 3.0 -Post Debridement (cm) - Depth 0.3 -Total Square (Post) (cm) 7.50 -Area of Debridement (cm) - Length 2.5 -Area of Debridement (cm) - Width 3.0 -Total Square (Area) (cm) 7.50 -Tunneling No -Undermining/Tunneling No -Circular Undermining No -Wound/Ulcer Outcome Not Healed -Ulcer Cleansing Rinsed/ Irrigated with Saline -Foul Odor after Cleansing No -Bioengineered Tissue No -Bleeding Controlled with Pressure -Treatment Response Procedure Tolerated Well -Assistive Device(s) Wheelchair -Debridement - Subq, 1st 20sq cm Yes Pain Scale: 0-10 Numeric Is Patient Pain Free? Yes WC - Nurse 3 - General Ulcer D/C NN Start: 05/30/21 13:45 Freq: Status: Active Protocol: Activity Type Activity Date Activity User E-Sign Co-Sign Detail Recorded Client Recorded Date Recorded By Document 05/30/21 15:11 DL [id number] 05/30/21 15:13 DL 05/30/21 15:11 Wound Care Nurse 3 # 3 LEFT HIP -Ulcer Cleansing Rinsed/ Irrigated with Saline -Foul Odor after Cleansing No -Other Dressing dakins packing -Primary Dressing Covered/Secured with Dry Gauze, Secured with Tape #2- R HIP -Ulcer Cleansing Rinsed/ Irrigated with Saline -Foul Odor after Cleansing No -Other Dressing dakins packing -Primary Dressing Covered/Secured with Dry Gauze, Secured with Tape #1 Sacral -Ulcer Cleansing Rinsed/ Irrigated with Saline -Foul Odor after Cleansing No -Primary Dressing Applied Aquacel AG 4x4, Mepilex Border -Aquacel AG 4x4 1 -Mepilex Border 1 Treatment Response Procedure Tolerated Well Pain Scale: 0-10 Numeric Is Patient Pain Free? Yes WC - Visit Discharge Discharge Condition Stable Ambulatory Status Wheelchair Transportation Private Auto Accompanied by sister in law Facility Type Home Health Notes: HH to resume Vac tomorrow. Orders Sent Yes Charges/Coding Visit Charges Office Visits / Consults: [id number] OV L3 Est Procedures Integumentary [id number]: [id number] Natalia musc/fascia 20 sq cm/< Assessment/Plan Assessment/Plan (1) Pressure injury of right hip, stage 4: CODE(S): L89.214 - Pressure ulcer of right hip, stage 4 (2) Pressure injury of left hip, stage 4: CODE(S): L89.224 - Pressure ulcer of left hip, stage 4 (3) Pressure injury of sacral region, stage 4: CODE(S): L89.154 - Pressure ulcer of sacral region, stage 4 PLAN: Debridement performed today in clinic as annotated above. Wet to dry applied to bilateral hips, Aquacel AG to sacrum. At home wound-care instructions: Wound vacs to bilateral hips changed 3 times per week per home health, set at 150 mmHg Change dressing once daily or more frequently as needed due to contamination. Wash wounds daily with antibacterial soap and water, rinse and dry thoroughly before each dressing change. Aquacel Ag to sacrum to be changed 3 times per week and covered with SAP. Compression: N/A Off-loading: The patient was instructed to avoid pressure and friction on the affected areas. Reposition every 2 hours at minimum. Avoid prolonged standing and/or dangling of legs. When seated, feet should be elevated at chest level. Frequent ambulation is encouraged. Diet: Patient encouraged to increase protein intake while taking caution to avoid high carbohydrate and/or sugar intake. Patient is a non-smoker Labs/cultures/imaging: Request records from plastic surgery. Follow-up: Return to clinic in 1 week for re-evaluation. Return sooner or report to the emergency room should symptoms worsen, or new symptoms arise.
--- NOTE | 2021-06-04 14:06 | WC ---
Liliana from [facility] called concerned that patient has a fever of 100.5 and her ulcers had an odor once dressings come off. After calling Liliana, she did explain that her odor to wounds are not anything new. Her CBC was just draw today with a WBC of 6.5. Notified Mario Izaguirre NP regarding this matter who states with a fever, it would be good to be evaluated in ER. I spoke to Lindsay and she feels that the nurse's thermometer always runs high. While on the phone, she rechecked her temp and the forehead reading read 98.4 and temporal was 100.4. She said with her multiple sclerosis, normally with a true elevated temp, her motor skills decline and she has not experienced that at all. I discussed with her the s/s of infection and at any change in her overall health, she is to report to the ER without hesitation. Lindsay verbalized understanding. [facility] is scheduled to see patient on 06/05/21. Any updates can be called into out center.
[2021-06-13 13:27] VITALS: BP 104/73; PULSE 72; RESP 16; TEMP 35.8
--- NOTE | 2021-06-13 17:12 | PN.PCM_ITS ---
History of Present Illness Date of Service: 06/13/21 Chief Complaint: Nonhealing sacral ulcer, stage IV pressure injuries to bi lateral hips History of Wound: Ms. 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 She has a history of multiple sclerosis and has been wheelchair- bound for about 16 years. She has been seen by this wound center in the past, and was referred to Dr. Bond at [facility] for surgical intervention to her wounds in 2020. She states due to insurance changes she is no longer able to see Dr. Bond. She currently has wound VACs applied to both her left and right hips at 125 mmHg being changed 3 times a week by home health services, and her sacral wound is being treated with Aquacel Ag and being changed 3 times a week as well. She states that all 3 of her wounds have improved significantly since she was last here, and currently denies any systemic or local signs or symptoms of infection. 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 Past medical, family, and social history reviewed and not pertinent to the current visit and all other systems reviewed and negative with exception of those listed above. Progress of Wound: Stable, no new concerns. Tolerating the wound VAC at 150 mmhg well. Objective Data Objective Data Vital Signs: Vital Signs Temp Pulse Resp BP 96.5 F L 72 16 104/73 06/13/21 13:27 06/13/21 13:27 06/13/21 13:27 06/13/21 13:27 Charges/Coding Procedures Integumentary [id number]: [id number] Natalia subq tissue 20 sq cm/< Physical Exam Const alert, oriented x3 and no apparent distress General Appearance: cooperative and comfortable HEENT normocephalic and head/scalp atraumatic Head and Scalp: normal to inspection, normocephalic and atraumatic Eyes EOMs intact bilaterally Neck full ROM General: normal visual inspection Resp normal respiratory effort and clear to auscultation bilaterally Effort and Inspection: able to speak in complete sentences Cardio regular rate and regular rhythm Extremity normal to inspection Skin Wound Narrative: Stage IV pressure injury to sacrum with adherent slough, no signs of obvious infection at this time. Stage IV pressure injury to right and left hips with adherent slough and muscle fascia/tendon exposed, no signs of obvious infection at this time. Neuro oriented x3 and moves all extremities Psych mental status grossly normal Appearance: grossly normal Attitude: calm Speech: normal speech Debridement Note Debridement Note Wound debrided: stAge 4 pressure injury bilateral hips and sacrum Type of Debridement: Selective debridement Anesthesia Used: 4% Lidocaine Solution Depth: Down to and including healthy tissue and in the subcutaneous layer Percentage of wound debrided: 100 Instrument Used: 5mm curette Tissue Removed: Slough and devitalized tissue Severity: Fat Layer Exposed Amount of bleeding with debridement: Mild Bleeding Controlled with: Pressure Patient tolerated procedure: Patient tolerated procedure well Post-Debridement Measurements and Additional Note: Post-Debridement Measurements/Treatment - Nurse 1 - General Ulcer Assessment Start: 05/30/21 13:45 Freq: Status: Active Protocol: ASHLEY Activity Type Activity Date Activity User E-Sign Co-Sign Detail Recorded Client Recorded Date Recorded By Document 05/30/21 13:45 DL [id number] 05/30/21 14:13 DL Document 06/13/21 13:27 ML [id number] 06/13/21 13:45 ML 05/30/21 06/13/21 13:45 13:27 - Today's Visit Information Type of service Initial Visit Follow-up Visit (Physician/TYPING BOOKKEEPER ) Arrival Mode Wheelchair Wheelchair Transfer Assistance Manual Transfer Assist (Other) x2 Patient Identification Verified (Name & Yes Yes ) Patient Requires Transmission-Based Yes No Precautions Safety Precautions Fall Prevention NA Vital Signs Temperature (97.8 F-99.1 F) 99.1 F 96.5 F L Temperature Source Temporal Temporal Pulse Rate (60-100) 86 72 Pulse Location Monitor Monitor Respiratory Rate (12-18) 20 H 16 Respiratory rate source Observation Observation Blood Pressure (90/60-120/80) 90/61 104/73 Blood Pressure Mean (mm Hg) 70 83 Source Monitor Monitor Position Sitting Blood Pressure Location Left Arm History Since Last Visit- (Skip if this is Patient's initial visit) Have you changed medications since your No last visit? Any new allergies or adverse reactions No Had a fall/change in ADL's that may No increase risk of falls Signs or symptoms of abuse and/or No neglect since last visit Have you been in the hospital since your No last visit? Has dressing in place as prescribed Yes Has compression in place as prescribed Yes Has offloadiing in place as prescribed N/A Experienced any changes in pain level or No management Left Footwear Regular Shoe Right Footwear Regular Shoe Pain Scale: 0-10 Numeric Is Patient Pain Free? Yes Yes WC - Nurse 1 - General Ulcer Measurement Start: 05/30/21 13:45 Freq: Status: Active Protocol: Activity Type Activity Date Activity User E-Sign Co-Sign Detail Recorded Client Recorded Date Recorded By Document 05/30/21 13:45 DL [id number] 05/30/21 14:13 DL Document 06/13/21 13:27 ML [id number] 06/13/21 13:45 ML 05/30/21 06/13/21 13:45 13:27 Wound Center Nurse 1 # 3 LEFT HIP -Current Size (cm) - Length 1.8 1.8 -Current Size (cm) - Width 1 0.5 -Current Size (cm) - Depth 1.8 0.5 -Total Square Cm 1.8 0.90 -Photo Taken Yes -Tunneling Position (O'clock) 3 11 -Tunneling Distance (cm) 2.4 0.3 -Tunneling Position #2 (O'clock) 12 -Undermining/Tunneling No -Classification - Thickness Full Thickness without Exposed Support Structure -Exudate Amt Medium Medium -Exudate Type Serosanguineous Serosanguineous -Wound Margin Distinct, Distinct, Outline Outline Attached Attached -Granulation Amt Large (67-100%) -Granulation Quality Red -Slough/Fibrin Yes -Necrosis Amt Small (1-33%) Medium (34-66%) -Necrotic Tissue Type Adherent Slough Adherent Slough -Structure Exposed N/A -Texture (Cydney-wound Skin Appearance) Scarring Assessed -Moisture (Cydney-wound Skin Appearance) No Abnormality -Color ([place]ydney-wound Skin Appearance) No Abnormality Assessed -Temperature ([place]yd[place]-wound Skin No Abnormality No Abnormality Appearance) (Pt Warm) (Pt Warm) -Tenderness on Palpation ([place]-wound No Yes Skin Appearance) -Ulcer Cleansing Soap and Water Soap and Water -Foul Odor after Cleansing No No -Anesthetic Used 4% Lidocaine 4% Lidocaine Solution Solution #2- R HIP -Current Size (cm) - Length 1.4 1.2 -Current Size (cm) - Width 0.7 0.5 -Current Size (cm) - Depth 1.5 0.5 -Total Square Cm 0.98 0.60 -Photo Taken Yes -Tunneling Position (O'clock) 4 -Tunneling Distance (cm) 2.8 -Undermining/Tunneling Yes -Undermining/Tunneling Starts (O'clock 12 ) -Undermining/Tunneling Ends (O'clock) 1 -Maximum Distance (cm) 0.2 -Classification - Thickness Full Thickness without Exposed Support Structure -Exudate Amt Medium Medium -Exudate Type Serosanguineous Serosanguineous -Wound Margin Distinct, Distinct, Outline Outline Attached Attached -Granulation Amt Large (67-100%) Medium (34-66%) -Granulation Quality Red -Slough/Fibrin Yes -Necrosis Amt Small (1-33%) Medium (34-66%) -Necrotic Tissue Type Adherent Slough Adherent Slough -Structure Exposed N/A -Texture (Cydney-wound Skin Appearance) Scarring Assessed -Moisture ([place]ydney-wound Skin Appearance) No Abnormality Assessed -Color (Cydney-wound Skin Appearance) No Abnormality Assessed -Temperature ([place]yd[place]-wound Skin No Abnormality No Abnormality Appearance) (Pt Warm) (Pt Warm) -Tenderness on Palpation (Cydney-wound No No Skin Appearance) -Ulcer Cleansing Soap and Water -Foul Odor after Cleansing No No -Anesthetic Used 4% Lidocaine 4% Lidocaine Solution Solution #1 Sacral -Current Size (cm) - Length 1.8 2 -Current Size (cm) - Width 2.5 2.5 -Current Size (cm) - Depth 0.4 0.1 -Total Square Cm 4.50 5.0 -Photo Taken Yes -Exudate Amt Small Medium -Exudate Type Serosanguineous Serosanguineous -Wound Margin Distinct, Distinct, Outline Outline Attached Attached -Granulation Amt Large (67-100%) Medium (34-66%) -Granulation Quality Pale,[place] -Slough/Fibrin Yes -Necrosis Amt Small (1-33%) Medium (34-66%) -Necrotic Tissue Type Adherent Slough Adherent Slough -Structure Exposed N/A -Texture (Cydney-wound Skin Appearance) Scarring Assessed -Moisture (Cydney-wound Skin Appearance) No Abnormality Assessed -Color (Cydney-wound Skin Appearance) No Abnormality Assessed -Temperature ([place]yd[place]-wound Skin No Abnormality No Abnormality Appearance) (Pt Warm) (Pt Warm) -Tenderness on Palpation (Cydney-wound No No Skin Appearance) -Ulcer Cleansing Soap and Water Soap and Water -Foul Odor after Cleansing No Yes -Anesthetic Used 4% Lidocaine 4% Lidocaine Solution Solution WC - Nurse 2 - General Ulcer CM Notes Start: 05/30/21 13:45 Freq: Status: Active Protocol: Activity Type Activity Date Activity User E-Sign Co-Sign Detail Recorded Client Recorded Date Recorded By Document 05/30/21 14:44 MW [id number] 05/30/21 14:56 MW Document 06/13/21 14:02 MW [id number] 06/13/21 14:07 MW 05/30/21 06/13/21 14:44 14:02 Wound Center Nurse 2 # 3 LEFT HIP -Time 14:46 14:04 -Correct Patient Yes Yes -Correct Side, Site, Position Yes Yes -Correct Procedure Yes Yes -Procedure Performed Yes Yes -Type of Procedure Debridement Debridement -Clinical Debridement Muscle / Fascia Subcutaneous -Tissue Removed Muscle,Fascia Subcutaneous -Post Debridement (cm) - Length 1.3 0.6 -Post Debridement (cm) - Width 2.0 1.6 -Post Debridement (cm) - Depth 2.8 2.3 -Total Square (Post) (cm) 2.60 0.96 -Area of Debridement (cm) - Length 1.3 0.6 -Area of Debridement (cm) - Width 2.0 1.6 -Total Square (Area) (cm) 2.60 0.96 -Tunneling No No -Undermining/Tunneling No No -Circular Undermining No No -Wound/Ulcer Outcome Not Healed Not Healed -Ulcer Cleansing Rinsed/ Rinsed/ Irrigated with Irrigated with Saline Saline -Foul Odor after Cleansing No No -Bioengineered Tissue No No -Bleeding Controlled with Pressure Pressure -Treatment Response Procedure Procedure Tolerated Well Tolerated Well -Offloading No No -Assistive Device(s) Wheelchair -Debridement - Subq, 1st 20sq cm Yes -Debridement - Muscle / Fascia, 1st Yes 20sq cm #2- R HIP -Time 14:48 14:04 -Correct Patient Yes Yes -Correct Side, Site, Position Yes Yes -Correct Procedure Yes Yes -Procedure Performed Yes Yes -Type of Procedure Debridement Debridement -Clinical Debridement Muscle / Fascia Subcutaneous -Tissue Removed Muscle,Fascia Subcutaneous -Post Debridement (cm) - Length 0.9 1.0 -Post Debridement (cm) - Width 1.5 1.4 -Post Debridement (cm) - Depth 2.6 2.3 -Total Square (Post) (cm) 1.35 1.40 -Area of Debridement (cm) - Length 0.9 1.0 -Area of Debridement (cm) - Width 2.6 1.4 -Total Square (Area) (cm) 2.34 1.40 -Tunneling No No -Undermining/Tunneling No No -Circular Undermining No No -Wound/Ulcer Outcome Not Healed Not Healed -Ulcer Cleansing Rinsed/ Rinsed/ Irrigated with Irrigated with Saline Saline -Foul Odor after Cleansing No No -Bioengineered Tissue No No -Bleeding Controlled with Pressure Pressure -Treatment Response Procedure Procedure Tolerated Well Tolerated Well -Offloading No No -Debridement - Subq, 1st 20sq cm No -Debridement - Muscle / Fascia, 1st No 20sq cm #1 Sacral -Time 14:48 14:05 -Correct Patient Yes Yes -Correct Side, Site, Position Yes Yes -Correct Procedure Yes Yes -Procedure Performed Yes Yes -Type of Procedure Debridement Debridement -Clinical Debridement Subcutaneous Subcutaneous -Tissue Removed Subcutaneous Subcutaneous -Post Debridement (cm) - Length 2.5 2.6 -Post Debridement (cm) - Width 3.0 2.0 -Post Debridement (cm) - Depth 0.3 0.2 -Total Square (Post) (cm) 7.50 5.20 -Area of Debridement (cm) - Length 2.5 2.6 -Area of Debridement (cm) - Width 3.0 2.0 -Total Square (Area) (cm) 7.50 5.20 -Tunneling No No -Undermining/Tunneling No No -Circular Undermining No No -Wound/Ulcer Outcome Not Healed Not Healed -Ulcer Cleansing Rinsed/ Rinsed/ Irrigated with Irrigated with Saline Saline -Foul Odor after Cleansing No No -Bioengineered Tissue No No -Bleeding Controlled with Pressure Pressure -Treatment Response Procedure Procedure Tolerated Well Tolerated Well -Offloading No -Assistive Device(s) Wheelchair -Debridement - Subq, 1st 20sq cm Yes No Pain Scale: 0-10 Numeric Is Patient Pain Free? Yes Yes WC - Nurse 3 - General Ulcer D/C NN Start: 05/30/21 13:45 Freq: Status: Active Protocol: Activity Type Activity Date Activity User E-Sign Co-Sign Detail Recorded Client Recorded Date Recorded By Document 05/30/21 15:11 DL [id number] 05/30/21 15:13 DL Document 06/13/21 14:15 MD [id number] 06/13/21 14:27 MD 05/30/21 06/13/21 15:11 14:15 Wound Care Nurse 3 # 3 LEFT HIP -Ulcer Cleansing Rinsed/ Irrigated with Saline -Foul Odor after Cleansing No -Other Dressing dakins packing -Primary Dressing Covered/Secured with Dry Gauze, Secured with Tape #2- R HIP -Ulcer Cleansing Rinsed/ Irrigated with Saline -Foul Odor after Cleansing No -Other Dressing dakins packing -Primary Dressing Covered/Secured with Dry Gauze, Secured with Tape #1 Sacral -Ulcer Cleansing Rinsed/ Irrigated with Saline -Foul Odor after Cleansing No -Primary Dressing Applied Aquacel AG 4x4, Aquacel AG 4x4, Mepilex Border Mepilex Border -Aquacel AG 4x4 1 1 -Mepilex Border 1 1 Treatment Response Procedure Tolerated Well Pain Scale: 0-10 Numeric Is Patient Pain Free? Yes Yes WC - Visit Discharge Discharge Condition Stable Ambulatory Status Wheelchair Transportation Private Auto Accompanied by sister in law Facility Type Home Health Notes: HH to resume Vac tomorrow. Orders Sent Yes Assessment/Plan Assessment/Plan (1) Pressure injury of right hip, stage 4: CODE(S): L89.214 - Pressure ulcer of right hip, stage 4 (2) Pressure injury of left hip, stage 4: CODE(S): L89.224 - Pressure ulcer of left hip, stage 4 (3) Pressure injury of sacral region, stage 4: CODE(S): L89.154 - Pressure ulcer of sacral region, stage 4 PLAN: Debridement performed today in clinic as annotated above. Wet to dry applied to bilateral hips, Aquacel AG to sacrum. At home wound-care instructions: Wound vacs to bilateral hips changed 3 times per week per home health, set at 150 mmHg Change dressing once daily or more frequently as needed due to contamination. Wash wounds daily with antibacterial soap and water, rinse and dry thoroughly before each dressing change. Aquacel Ag to sacrum to be changed 3 times per week and covered with SAP. Compression: N/A Off-loading: The patient was instructed to avoid pressure and friction on the affected areas. Reposition every 2 hours at minimum. Avoid prolonged standing and/or dangling of legs. When seated, feet should be elevated at chest level. Frequent ambulation is encouraged. Diet: Patient encouraged to increase protein intake while taking caution to avoid high carbohydrate and/or sugar intake. Patient is a non-smoker Labs/cultures/imaging: Request records from plastic surgery. Follow-up: Return to clinic in 1 week for re-evaluation. Return sooner or report to the emergency room should symptoms worsen, or new symptoms arise.
== END 2021-06-13 23:59 | disposition home or self-care (01) ==
LOC: WC 13:30
PROVIDERS: PCP Family Medicine; Referring Provider Internal Medicine; Visit Provider Nurse Practitioner Family
DX: L89.154 Pressure ulcer of sacral region, stage 4 (principal); L89.214 Pressure ulcer of right hip, stage 4; L89.224 Pressure ulcer of left hip, stage 4; G35 Multiple sclerosis; A04.71 Enterocolitis due to Clostridium difficile, recurrent; Z99.3 Dependence on wheelchair; Z87.891 Personal history of nicotine dependence; Z79.899 Other long term (current) drug therapy
CPT/HCPCS: 11042; 11043; 99213; G0463

== ENCOUNTER 2021-07-04 13:45 | Outpatient (RCR) | payer OTHER, SELFPAY ==
[2018-02-01 11:47] VITALS: BMI 15.0
[2021-06-14 00:09] VITALS: BP 104/73; PULSE 72; RESP 16; TEMP 35.8
[2021-07-04 14:00] VITALS: BP 107/63; PULSE 78; RESP 18; TEMP 36.6
--- NOTE | 2021-07-04 23:19 | PCM.WC.PN ---
History of Present Illness Date of Service: 07/04/21 Chief Complaint: Nonhealing sacral ulcer, stage IV pressure injuries to bilateral hips History of Wound: Ms. 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 She has a history of multiple sclerosis and has been wheelchair-bound for about 16 years. She has been seen by this wound center in the past, and was referred to Dr. Bond at [facility] for surgical intervention to her wounds in 2020. She states due to insurance changes she is no longer able to see Dr. Bond. She currently has wound VACs applied to both her left and right hips at 125 mmHg being changed 3 times a week by home health services, and her sacral wound is being treated with Aquacel Ag and being changed 3 times a week as well. She states that all 3 of her wounds have improved significantly since she was last here, and currently denies any systemic or local signs or symptoms of infection. 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 Past medical, family, and social history reviewed and not pertinent to the current visit and all other systems reviewed and negative with exception of those listed above. Progress of Wound: Hip ulcers are improving, sacral wound has deteriorated because she is only changing dressing three times a week. No new concerns otherwise Objective Data Objective Data Vital Signs: Vital Signs Temp Pulse Resp BP 98 F 78 18 107/63 07/04/21 14:00 07/04/21 14:00 07/04/21 14:00 07/04/21 14:00 Charges/Coding Procedures Integumentary 111xxx-113xx: 12133 Natalia subq tissue 20 sq cm/< Physical Exam Const alert, oriented x3 and no apparent distress General Appearance: cooperative and comfortable HEENT normocephalic and head/scalp atraumatic Head and Scalp: normal to inspection, normocephalic and atraumatic Eyes EOMs intact bilaterally Neck full ROM General: normal visual inspection Resp normal respiratory effort and clear to auscultation bilaterally Effort and Inspection: able to speak in complete sentences Cardio regular rate and regular rhythm Extremity normal to inspection Skin Wound Narrative: Stage IV pressure injury to sacrum with adherent slough, no signs of obvious infection at this time. Stage IV pressure injury to right and left hips with adherent slough and muscle fascia/tendon exposed, no signs of obvious infection at this time. Neuro oriented x3 and moves all extremities Psych mental status grossly normal Appearance: grossly normal Attitude: calm Speech: normal speech Debridement Note Debridement Note Wound debrided: Stage 4 pressure injury to sacrum and bilateral hips Type of Debridement: Excisional debridement Depth: Down to and including healthy tissue and in the subcutaneous layer Percentage of wound debrided: 100 Instrument Used: 7mm curette Tissue Removed: Slough and devitalized tissue Severity: Fat Layer Exposed Amount of bleeding with debridement: Mild Bleeding Controlled with: Pressure Patient tolerated procedure: Patient tolerated procedure well Post-Debridement Measurements and Additional Note: Post-Debridement Measurements/Treatment REA - Nurse 1 - General Ulcer Assessment Start: 07/04/21 14:00 Freq: Status: Active Protocol: ASHLEY Activity Type Activity Date Activity User E-Sign Co-Sign Detail Recorded Client Recorded Date Recorded By Document 07/04/21 14:00 DL [id number] 07/04/21 14:04 DL 07/04/21 14:00 WC - Today's Visit Information 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 Any new allergies or adverse reactions No Had a fall/change in ADL's that may No increase risk of falls Signs or symptoms of abuse and/or No neglect since last visit Have you been in the hospital since your No last visit? Has dressing in place as prescribed Yes Has compression in place as prescribed N/A Has offloadiing in place as prescribed Yes Experienced any changes in pain level or No management Pain Scale: 0-10 Numeric Is Patient Pain Free? Yes REA - Nurse 1 - General Ulcer Measurement Start: 07/04/21 14:00 Freq: Status: Active Protocol: Activity Type Activity Date Activity User E-Sign Co-Sign Detail Recorded Client Recorded Date Recorded By Document 07/04/21 14:00 DL [id number] 07/04/21 14:04 DL 07/04/21 14:00 Wound Center Nurse 1 # 3 LEFT HIP -Current Size (cm) - Length 0.8 -Current Size (cm) - Width 0.4 -Current Size (cm) - Depth 1 -Total Square Cm 0.32 -Photo Taken No -Exudate Amt Small -Exudate Type Serosanguineous -Granulation Amt Large (67-100%) -Granulation Quality [place] -Necrosis Amt Small (1-33%) -Structure Exposed N/A -Texture ([place]yd[place]-wound Skin Appearance) Scarring -Moisture ([place]ydney-wound Skin Appearance) No Abnormality -Color ([place]ydney-wound Skin Appearance) No Abnormality -Temperature ([place]yd[place]-wound Skin No Abnormality Appearance) (Pt Warm) -Tenderness on Palpation ([place]yd[place]-wound No Skin Appearance) #2- R HIP -Current Size (cm) - Length 1 -Current Size (cm) - Width 0.5 -Current Size (cm) - Depth 1.2 -Total Square Cm 0.5 -Photo Taken No -Exudate Amt Small -Exudate Type Serosanguineous -Wound Margin Distinct, Outline Attached -Granulation Amt Large (67-100%) -Granulation Quality [place] -Necrosis Amt None Present (0 %) -Structure Exposed N/A -Texture (Cydney-wound Skin Appearance) Scarring -Moisture ([place]ydney-wound Skin Appearance) No Abnormality -Color ([place]yd[place]-wound Skin Appearance) Assessed -Temperature ([place]-wound Skin No Abnormality Appearance) (Pt Warm) -Tenderness on Palpation ([place]yd[place]-wound No Skin Appearance) -Ulcer Cleansing Soap and Water -Foul Odor after Cleansing No -Anesthetic Used 4% Lidocaine Solution #1 Sacral -Current Size (cm) - Length 1.8 -Current Size (cm) - Width 3.4 -Current Size (cm) - Depth 0.4 -Total Square Cm 6.12 -Photo Taken No -Tunneling Position (O'clock) 5 -Tunneling Distance (cm) 0.2 -Granulation Amt None Present (0 %) -Necrosis Amt Large (67-100%) -Necrotic Tissue Type Adherent Slough -Structure Exposed N/A -Texture ([place]yd[place]-wound Skin Appearance) Scarring -Moisture (Cydney-wound Skin Appearance) No Abnormality -Color (Cydney-wound Skin Appearance) Hemosiderin Staining -Temperature ([place]yd[place]-wound Skin No Abnormality Appearance) (Pt Warm) -Tenderness on Palpation (Cydney-wound No Skin Appearance) -Ulcer Cleansing Soap and Water -Foul Odor after Cleansing No -Anesthetic Used 4% Lidocaine Solution WC - Nurse 2 - General Ulcer CM Notes Start: 07/04/21 14:00 Freq: Status: Active Protocol: Activity Type Activity Date Activity User E-Sign Co-Sign Detail Recorded Client Recorded Date Recorded By Document 07/04/21 14:46 MW [id number] 07/04/21 14:52 MW 07/04/21 14:46 Wound Center Nurse 2 # 3 LEFT HIP -Time 14:47 -Correct Patient Yes -Correct Side, Site, Position Yes -Correct Procedure Yes -Procedure Performed Yes -Type of Procedure Debridement -Clinical Debridement Subcutaneous -Tissue Removed Subcutaneous -Post Debridement (cm) - Length 0.5 -Post Debridement (cm) - Width 1.0 -Post Debridement (cm) - Depth 1.2 -Total Square (Post) (cm) 0.50 -Area of Debridement (cm) - Length 0.5 -Area of Debridement (cm) - Width 1.0 -Total Square (Area) (cm) 0.50 -Tunneling No -Undermining/Tunneling No -Circular Undermining No -Wound/Ulcer Outcome Not Healed -Ulcer Cleansing Rinsed/ Irrigated with Saline -Foul Odor after Cleansing No -Bioengineered Tissue No -Debridement - Subq, 1st 20sq cm Yes #2- R HIP -Time 14:48 -Correct Patient Yes -Correct Side, Site, Position Yes -Correct Procedure Yes -Procedure Performed Yes -Type of Procedure Debridement -Clinical Debridement Subcutaneous -Tissue Removed Subcutaneous -Post Debridement (cm) - Length 0.8 -Post Debridement (cm) - Width 1.0 -Post Debridement (cm) - Depth 1.5 -Total Square (Post) (cm) 0.80 -Area of Debridement (cm) - Length 0.8 -Area of Debridement (cm) - Width 1.0 -Total Square (Area) (cm) 0.80 -Tunneling No -Undermining/Tunneling No -Circular Undermining No -Wound/Ulcer Outcome Not Healed -Ulcer Cleansing Rinsed/ Irrigated with Saline -Foul Odor after Cleansing No -Bioengineered Tissue No -Bleeding Controlled with Pressure -Treatment Response Procedure Tolerated Well -Offloading No -Debridement - Subq, 1st 20sq cm No #1 Sacral -Time 14:49 -Correct Patient Yes -Correct Side, Site, Position Yes -Correct Procedure Yes -Procedure Performed Yes -Type of Procedure Debridement -Clinical Debridement Subcutaneous -Tissue Removed Subcutaneous -Post Debridement (cm) - Length 3.5 -Post Debridement (cm) - Width 2.0 -Post Debridement (cm) - Depth 0.5 -Total Square (Post) (cm) 7.00 -Area of Debridement (cm) - Length 3.5 -Area of Debridement (cm) - Width 2.0 -Total Square (Area) (cm) 7.00 -Tunneling No -Undermining/Tunneling No -Circular Undermining No -Wound/Ulcer Outcome Not Healed -Ulcer Cleansing Rinsed/ Irrigated with Saline -Foul Odor after Cleansing No -Bioengineered Tissue No -Bleeding Controlled with Pressure -Treatment Response Procedure Tolerated Well -Offloading No -Debridement - Subq, 1st 20sq cm No Pain Scale: 0-10 Numeric Is Patient Pain Free? Yes WC - Nurse 3 - General Ulcer D/C NN Start: 07/04/21 14:00 Freq: Status: Active Protocol: Activity Type Activity Date Activity User E-Sign Co-Sign Detail Recorded Client Recorded Date Recorded By Document 07/04/21 15:06 ML [id number] 07/04/21 15:08 ML 07/04/21 15:06 Wound Care Nurse 3 # 3 LEFT HIP -Ulcer Cleansing Rinsed/ Irrigated with Saline -Foul Odor after Cleansing No -Other Dressing dakins -Primary Dressing Covered/Secured with Dry Gauze, Secured with Tape #2- R HIP -Ulcer Cleansing Rinsed/ Irrigated with Saline -Other Dressing dakins -Primary Dressing Covered/Secured with Dry Gauze, Secured with Tape #1 Sacral -Ulcer Cleansing Rinsed/ Irrigated with Saline -Primary Dressing Applied Aquacel AG 4x4 -Primary Dressing Covered/Secured with Dry Gauze, Secured with Tape -Aquacel AG 4x4 1 Pain Scale: 0-10 Numeric Is Patient Pain Free? Yes Assessment/Plan Assessment/Plan (1) Pressure injury of right hip, stage 4: CODE(S): L89.214 - Pressure ulcer of right hip, stage 4 (2) Pressure injury of left hip, stage 4: CODE(S): L89.224 - Pressure ulcer of left hip, stage 4 (3) Pressure injury of sacral region, stage 4: CODE(S): L89.154 - Pressure ulcer of sacral region, stage 4 PLAN: Debridement performed today in clinic as annotated above. Wet to dry applied to bilateral hips, Aquacel AG to sacrum. At home wound-care instructions: Wound vacs with white foam to bilateral hips changed 3 times per week per home health, set at 150 mmHg Change dressing once daily or more frequently as needed due to contamination. Wash wounds daily with antibacterial soap and water, rinse and dry thoroughly before each dressing change. Aquacel Ag to sacrum to be changed 5-7 times per week and covered with SAP. Compression: N/A Off-loading: The patient was instructed to avoid pressure and friction on the affected areas. Reposition every 2 hours at minimum. Avoid prolonged standing and/or dangling of legs. When seated, feet should be elevated at chest level. Frequent ambulation is encouraged. Diet: Patient encouraged to increase protein intake while taking caution to avoid high carbohydrate and/or sugar intake. Patient is a non-smoker Labs/cultures/imaging: Request records from plastic surgery. Follow-up: Return to clinic in 1 week for re-evaluation. Return sooner or report to the emergency room should symptoms worsen, or new symptoms arise.
--- NOTE | 2021-07-05 10:19 | PN.PCM_ITS ---
History of Present Illness Date of Service: 07/04/21 Chief Complaint: Nonhealing sacral ulcer, stage IV pressure injuries to bi lateral hips History of Wound: Ms. 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 She has a history of multiple sclerosis and has been wheelchair- bound for about 16 years. She has been seen by this wound center in the past, and was referred to Dr. Bond at [facility] for surgical intervention to her wounds in 2020. She states due to insurance changes she is no longer able to see Dr. Bond. She currently has wound VACs applied to both her left and right hips at 125 mmHg being changed 3 times a week by home health services, and her sacral wound is being treated with Aquacel Ag and being changed 3 times a week as well. She states that all 3 of her wounds have improved significantly since she was last here, and currently denies any systemic or local signs or symptoms of infection. 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 Past medical, family, and social history reviewed and not pertinent to the current visit and all other systems reviewed and negative with exception of those listed above. Progress of Wound: Hip ulcers are improving, sacral wound has deteriorated because she is only changing dressing three times a week. No new concerns otherwise Objective Data Objective Data Vital Signs: Vital Signs Temp Pulse Resp BP 98 F 78 18 107/63 07/04/21 14:00 07/04/21 14:00 07/04/21 14:00 07/04/21 14:00 Charges/Coding Procedures Integumentary 111xxx-113xx: 31228 Natalia subq tissue 20 sq cm/< Physical Exam Const alert, oriented x3 and no apparent distress General Appearance: cooperative and comfortable HEENT normocephalic and head/scalp atraumatic Head and Scalp: normal to inspection, normocephalic and atraumatic Eyes EOMs intact bilaterally Neck full ROM General: normal visual inspection Resp normal respiratory effort and clear to auscultation bilaterally Effort and Inspection: able to speak in complete sentences Cardio regular rate and regular rhythm Extremity normal to inspection Skin Wound Narrative: Stage IV pressure injury to sacrum with adherent slough, no signs of obvious infection at this time. Stage IV pressure injury to right and left hips with adherent slough and muscle fascia/tendon exposed, no signs of obvious infection at this time. Neuro oriented x3 and moves all extremities Psych mental status grossly normal Appearance: grossly normal Attitude: calm Speech: normal speech Debridement Note Debridement Note Wound debrided: Stage 4 pressure injury to sacrum and bilateral hips Type of Debridement: Excisional debridement Depth: Down to and including healthy tissue and in the subcutaneous layer Percentage of wound debrided: 100 Instrument Used: 7mm curette Tissue Removed: Slough and devitalized tissue Severity: Fat Layer Exposed Amount of bleeding with debridement: Mild Bleeding Controlled with: Pressure Patient tolerated procedure: Patient tolerated procedure well Post-Debridement Measurements and Additional Note: Post-Debridement Measurements/Treatment REA - Nurse 1 - General Ulcer Assessment Start: 07/04/21 14:00 Freq: Status: Active Protocol: ASHLEY Activity Type Activity Date Activity User E-Sign Co-Sign Detail Recorded Client Recorded Date Recorded By Document 07/04/21 14:00 DL [id number] 07/04/21 14:04 DL 07/04/21 14:00 WC - Today's Visit Information 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 Any new allergies or adverse reactions No Had a fall/change in ADL's that may No increase risk of falls Signs or symptoms of abuse and/or No neglect since last visit Have you been in the hospital since your No last visit? Has dressing in place as prescribed Yes Has compression in place as prescribed N/A Has offloadiing in place as prescribed Yes Experienced any changes in pain level or No management Pain Scale: 0-10 Numeric Is Patient Pain Free? Yes REA - Nurse 1 - General Ulcer Measurement Start: 07/04/21 14:00 Freq: Status: Active Protocol: Activity Type Activity Date Activity User E-Sign Co-Sign Detail Recorded Client Recorded Date Recorded By Document 07/04/21 14:00 DL [id number] 07/04/21 14:04 DL 07/04/21 14:00 Wound Center Nurse 1 # 3 LEFT HIP -Current Size (cm) - Length 0.8 -Current Size (cm) - Width 0.4 -Current Size (cm) - Depth 1 -Total Square Cm 0.32 -Photo Taken No -Exudate Amt Small -Exudate Type Serosanguineous -Granulation Amt Large (67-100%) -Granulation Quality [place] -Necrosis Amt Small (1-33%) -Structure Exposed N/A -Texture (Cydney-wound Skin Appearance) Scarring -Moisture (Cydney-wound Skin Appearance) No Abnormality -Color (Cydney-wound Skin Appearance) No Abnormality -Temperature (Cydney-wound Skin No Abnormality Appearance) (Pt Warm) -Tenderness on Palpation (Cydney-wound No Skin Appearance) #2- R HIP -Current Size (cm) - Length 1 -Current Size (cm) - Width 0.5 -Current Size (cm) - Depth 1.2 -Total Square Cm 0.5 -Photo Taken No -Exudate Amt Small -Exudate Type Serosanguineous -Wound Margin Distinct, Outline Attached -Granulation Amt Large (67-100%) -Granulation Quality [place] -Necrosis Amt None Present (0 %) -Structure Exposed N/A -Texture (Cydney-wound Skin Appearance) Scarring -Moisture (Cydney-wound Skin Appearance) No Abnormality -Color (Cydney-wound Skin Appearance) Assessed -Temperature (Cydney-wound Skin No Abnormality Appearance) (Pt Warm) -Tenderness on Palpation (Cydney-wound No Skin Appearance) -Ulcer Cleansing Soap and Water -Foul Odor after Cleansing No -Anesthetic Used 4% Lidocaine Solution #1 Sacral -Current Size (cm) - Length 1.8 -Current Size (cm) - Width 3.4 -Current Size (cm) - Depth 0.4 -Total Square Cm 6.12 -Photo Taken No -Tunneling Position (O'clock) 5 -Tunneling Distance (cm) 0.2 -Granulation Amt None Present (0 %) -Necrosis Amt Large (67-100%) -Necrotic Tissue Type Adherent Slough -Structure Exposed N/A -Texture (Cydney-wound Skin Appearance) Scarring -Moisture (Cydney-wound Skin Appearance) No Abnormality -Color (Cydney-wound Skin Appearance) Hemosiderin Staining -Temperature (Cydney-wound Skin No Abnormality Appearance) (Pt Warm) -Tenderness on Palpation (Cydney-wound No Skin Appearance) -Ulcer Cleansing Soap and Water -Foul Odor after Cleansing No -Anesthetic Used 4% Lidocaine Solution WC - Nurse 2 - General Ulcer CM Notes Start: 07/04/21 14:00 Freq: Status: Active Protocol: Activity Type Activity Date Activity User E-Sign Co-Sign Detail Recorded Client Recorded Date Recorded By Document 07/04/21 14:46 MW [id number] 07/04/21 14:52 MW 07/04/21 14:46 Wound Center Nurse 2 # 3 LEFT HIP -Time 14:47 -Correct Patient Yes -Correct Side, Site, Position Yes -Correct Procedure Yes -Procedure Performed Yes -Type of Procedure Debridement -Clinical Debridement Subcutaneous -Tissue Removed Subcutaneous -Post Debridement (cm) - Length 0.5 -Post Debridement (cm) - Width 1.0 -Post Debridement (cm) - Depth 1.2 -Total Square (Post) (cm) 0.50 -Area of Debridement (cm) - Length 0.5 -Area of Debridement (cm) - Width 1.0 -Total Square (Area) (cm) 0.50 -Tunneling No -Undermining/Tunneling No -Circular Undermining No -Wound/Ulcer Outcome Not Healed -Ulcer Cleansing Rinsed/ Irrigated with Saline -Foul Odor after Cleansing No -Bioengineered Tissue No -Debridement - Subq, 1st 20sq cm Yes #2- R HIP -Time 14:48 -Correct Patient Yes -Correct Side, Site, Position Yes -Correct Procedure Yes -Procedure Performed Yes -Type of Procedure Debridement -Clinical Debridement Subcutaneous -Tissue Removed Subcutaneous -Post Debridement (cm) - Length 0.8 -Post Debridement (cm) - Width 1.0 -Post Debridement (cm) - Depth 1.5 -Total Square (Post) (cm) 0.80 -Area of Debridement (cm) - Length 0.8 -Area of Debridement (cm) - Width 1.0 -Total Square (Area) (cm) 0.80 -Tunneling No -Undermining/Tunneling No -Circular Undermining No -Wound/Ulcer Outcome Not Healed -Ulcer Cleansing Rinsed/ Irrigated with Saline -Foul Odor after Cleansing No -Bioengineered Tissue No -Bleeding Controlled with Pressure -Treatment Response Procedure Tolerated Well -Offloading No -Debridement - Subq, 1st 20sq cm No #1 Sacral -Time 14:49 -Correct Patient Yes -Correct Side, Site, Position Yes -Correct Procedure Yes -Procedure Performed Yes -Type of Procedure Debridement -Clinical Debridement Subcutaneous -Tissue Removed Subcutaneous -Post Debridement (cm) - Length 3.5 -Post Debridement (cm) - Width 2.0 -Post Debridement (cm) - Depth 0.5 -Total Square (Post) (cm) 7.00 -Area of Debridement (cm) - Length 3.5 -Area of Debridement (cm) - Width 2.0 -Total Square (Area) (cm) 7.00 -Tunneling No -Undermining/Tunneling No -Circular Undermining No -Wound/Ulcer Outcome Not Healed -Ulcer Cleansing Rinsed/ Irrigated with Saline -Foul Odor after Cleansing No -Bioengineered Tissue No -Bleeding Controlled with Pressure -Treatment Response Procedure Tolerated Well -Offloading No -Debridement - Subq, 1st 20sq cm No Pain Scale: 0-10 Numeric Is Patient Pain Free? Yes WC - Nurse 3 - General Ulcer D/C NN Start: 07/04/21 14:00 Freq: Status: Active Protocol: Activity Type Activity Date Activity User E-Sign Co-Sign Detail Recorded Client Recorded Date Recorded By Document 07/04/21 15:06 ML [id number] 07/04/21 15:08 ML 07/04/21 15:06 Wound Care Nurse 3 # 3 LEFT HIP -Ulcer Cleansing Rinsed/ Irrigated with Saline -Foul Odor after Cleansing No -Other Dressing dakins -Primary Dressing Covered/Secured with Dry Gauze, Secured with Tape #2- R HIP -Ulcer Cleansing Rinsed/ Irrigated with Saline -Other Dressing dakins -Primary Dressing Covered/Secured with Dry Gauze, Secured with Tape #1 Sacral -Ulcer Cleansing Rinsed/ Irrigated with Saline -Primary Dressing Applied Aquacel AG 4x4 -Primary Dressing Covered/Secured with Dry Gauze, Secured with Tape -Aquacel AG 4x4 1 Pain Scale: 0-10 Numeric Is Patient Pain Free? Yes Assessment/Plan Assessment/Plan (1) Pressure injury of right hip, stage 4: CODE(S): L89.214 - Pressure ulcer of right hip, stage 4 (2) Pressure injury of left hip, stage 4: CODE(S): L89.224 - Pressure ulcer of left hip, stage 4 (3) Pressure injury of sacral region, stage 4: CODE(S): L89.154 - Pressure ulcer of sacral region, stage 4 PLAN: Debridement performed today in clinic as annotated above. Wet to dry applied to bilateral hips, Aquacel AG to sacrum. At home wound-care instructions: Wound vacs with white foam to bilateral hips changed 3 times per week per home health, set at 150 mmHg Change dressing once daily or more frequently as needed due to contamination. Wash wounds daily with antibacterial soap and water, rinse and dry thoroughly before each dressing change. Aquacel Ag to sacrum to be changed 5-7 times per week and covered with SAP. Compression: N/A Off-loading: The patient was instructed to avoid pressure and friction on the affected areas. Reposition every 2 hours at minimum. Avoid prolonged standing and/or dangling of legs. When seated, feet should be elevated at chest level. Frequent ambulation is encouraged. Diet: Patient encouraged to increase protein intake while taking caution to avoid high carbohydrate and/or sugar intake. Patient is a non-smoker Labs/cultures/imaging: Request records from plastic surgery. Follow-up: Return to clinic in 1 week for re-evaluation. Return sooner or report to the emergency room should symptoms worsen, or new symptoms arise.
== END 2021-07-13 23:59 | disposition home or self-care (01) ==
LOC: WC 13:45
PROVIDERS: PCP Family Medicine; Referring Provider Internal Medicine; Visit Provider Nurse Practitioner Family
DX: L89.154 Pressure ulcer of sacral region, stage 4 (principal); L89.214 Pressure ulcer of right hip, stage 4; L89.224 Pressure ulcer of left hip, stage 4; G35 Multiple sclerosis; Z99.3 Dependence on wheelchair
CPT/HCPCS: 11042

== ENCOUNTER 2021-07-10 17:52 | Outpatient (RCR) | payer OTHER, SELFPAY ==
[2018-02-01 11:47] VITALS: BMI 15.0
[2021-07-10 18:30] LABS: Color, Urine Yellow (Yellow); Glucose, Dipstick Normal (Normal); Ketone-Dipstick 5 mg/dl (Negative); Leukocyte Esterase-Dipstick 500 /ul (Negative); Nitrite-Dipstick Positive (Negative); Occult Blood-Urine 250 /ul (Negative); Protein-Dipstick 30 mg/dl (Negative); Urine Bilirubin Dipstick Negative (Negative); Urine Clarity Cloudy (Clear); Urine Urobilinogen Normal (Normal)
== END 2021-07-13 23:59 ==
LOC: HHLAB 17:52
PROVIDERS: PCP Family Medicine; Visit Provider Family Medicine
DX: N39.0 Urinary tract infection, site not specified (principal)
CPT/HCPCS: 81002; 87077; 87086; 87088; 87186

== ENCOUNTER → 2021-07-10 | Outpatient (CLI) | payer OTHER, SELFPAY ==
[2018-02-01 11:47] VITALS: BMI 15.0
--- NOTE | 2021-07-10 10:07 | BI_ITS ---
MAMMOGRAPHY - UNILATERAL SCREENING: RIGHT BREAST REASON FOR EXAM: Female, 55 years old. Routine annual screening examination (unilateral). PERTINENT HISTORY: Personal history of breast cancer. Prior left mastectomy. TECHNIQUE: Digital unilateral breast frederick (3D mammographic acquisition) in the CC and MLO projections. 2-D mediolateral oblique (MLO) and craniocaudad (CC) views of both breasts were obtained. CAD: Full Field Digital Mammography with Computer Added Detection was performed. COMPARISON: Comparison is made with prior examination dated 10/17/2019. FINDINGS: Breast Composition: The breasts are extremely dense, which lowers the sensitivity of mammography. There are no dominant masses or suspicious calcifications. No other significant abnormalities are identified. There has been no significant change since the prior study. BI/SCREEN MAMM (CAD) W/FREDERICK UNI R IMPRESSION: Stable unilateral screening mammogram. Yearly follow-up mammogram recommended. (A) ASSESSMENT CATEGORY: BIRADS Category 1: Negative. A letter regarding these results will be sent to the patient by the facility within 30 days. Approximately 10% of breast cancers are not detected by mammography. A normal mammogram should not delay biopsy of a clinically suspicious abnormality. [id number] Electronically Signed: Dinesh Marie MD at 11:51 EDT ,
== END | disposition home or self-care (01) ==
LOC: OPBI 10:05
PROVIDERS: PCP Family Medicine; Visit Provider Nurse Practitioner Family
DX: Z12.31 Encounter for screening mammogram for malignant neoplasm of breast (principal); Z85.3 Personal history of malignant neoplasm of breast
CPT/HCPCS: 77063; 77067

== ENCOUNTER 2021-07-12 17:59 | Inpatient (IN) | payer OTHER, SELFPAY ==
[2018-02-01 11:47] VITALS: BMI 15.0
[2021-07-12 17:59] VITALS: BP 111/69; PULSE 81; RESP 18; TEMP 37.2; O2SAT 97; BMI 14.8
--- NOTE | 2021-07-12 18:26 | EX.ED.DYSGE1 ---
HPI <SKYLAR Brown - Last Filed: 07/12/21 18:58> History of Present Illness Chief Complaint: Complaint Narrative Narrative: 55-year-old female presents with UTI that requires IV antibiotics. She has a chronic indwelling Pandey she has MS and bilateral lower extremity contractures causing her to be wheelchair-bound. She had her Pandey changed by home health 2 weeks ago. 2 days ago she started having generalized weakness so her PCP sent a urine and awaited the culture to prescribe antibiotics. It shows Pseudomonas only sensitive to IV antibiotics. She denies fever, chills, nausea, or vomiting. Of note she also has a wound on her back and bilateral hips from bedsores. She has a wound VAC on both hips and they have improved significantly and is being followed at the wound center. [facility] <SKYLAR Brown - Last Filed: 07/12/21 18:58> [facility] Medical History (Updated 07/12/21 @ 21:[address] Earl Mendoza, DO) Breast cancer Chronic indwelling Pandey catheter History of breast cancer Multiple sclerosis Pressure injury of left hip, stage 4 Pressure injury of left hip, unstageable Pressure injury of right hip, stage 2 Pressure injury of right hip, stage 4 Pressure injury of sacral region, stage 4 Screening for malignant neoplasm of breast Home Medications baclofen 10 mg tablet 20 mg PO Q4H 02/28/17 [History Last Taken 10/12/17 06:00] cholecalciferol (vitamin D3) 10,000 unit PO DAILY 10/09/17 [History Last Taken 07/12/21] dalfampridine 10 mg PO BID PRN PRN 03/24/18 [History Last Taken 07/19/20] Metamucil Fiber Singles 1 packet PO DAILY 07/23/20 [History Last Taken 07/12/21] nitrofurantoin macrocrystal 25 mg capsule 50 mg PO QHS 11/06/20 [History Last Taken 07/12/21] tamoxifen 20 mg tablet 20 mg PO DAILY #90 tab 06/24/21 [Rx Last Taken Unknown] ascorbic acid (vitamin C) [Vitamin C] 1 g PO DAILY 07/12/21 [History Last Taken 07/12/21] docusate sodium [Colace] 100 mg PO QODAY 07/12/21 [History Last Taken 07/11/21] zinc 50 mg PO DAILY 07/12/21 [History Last Taken 07/12/21] Allergy/AdvReac Type Severity Reaction Status Date / Time ciprofloxacin Allergy Mild unknown Verified 07/12/21 18:01 Family History Aunt Breast cancer Mother Diabetes Surgical History h/o tonsillectomy S/P left mastectomy (~10/12/17) Social History household members: spouse Smoking Status: Former smoker alcohol intake: never ROS <SKYLAR Brown - Last Filed: 07/12/21 18:58> ROS ED ROS Narrative Constitutional: Positive for malaise. Negative for fever, chills. Eyes: Negative for visual change. ENT: Negative for sore throat, ear pain, rhinorrhea. CVS: Negative for palpitations, chest pain, syncope. Respiratory: Negative for shortness of breath, cough, orthopnea. GI: Negative for abdominal pain, nausea, vomiting, diarrhea, constipation, melena, hematochezia. : Negative for dysuria, hematuria or frequency. Neuro: Negative for headache, motor/sensory dysfunction. Skin: Positive for chronic wounds. Negative for rash, abscess. Musc: Negative for joint pain, swelling, trauma. Heme: Negative for easy bruising, bleeding, lymphadenopathy. EXAM <SKYLAR Brown - Last Filed: 07/12/21 18:58> Physical Exam Narrative Exam Narrative: CONST: Patient appears cachectic, sitting in no acute distress. EYES: Normal inspection. NECK: Normal inspection. RESP: No respiratory distress, CTAB. CVS: Regular rate and rhythm, no murmur, no gallop. ABD: Soft and nontender, no guarding or rebound, nondistended. SKIN: Color normal, no rash. Wound vacs in place to bilateral hips. EXTREMITIES: Normal appearance, no pedal edema. NEURO: Oriented x4. PSYCH: Normal affect. Const Vital Signs: 07/12/21 17:59 07/12/21 19:01 07/12/21 20:43 Temperature 99 F 98.6 F 98.9 F Temperature Source Temporal Oral Oral Pulse Rate 81 88 76 Respiratory Rate 18 18 16 Blood Pressure 111/69 113/76 114/68 Blood Pressure Mean 83 88 83 Pulse Ox 97 98 97 Oxygen Delivery Method Room Air Room Air Room Air <Dr. Earl Mendoza DO - Last Filed: 07/12/21 21:28> Physical Exam Const Vital Signs: 07/12/21 17:59 07/12/21 19:01 07/12/21 20:43 Temperature 99 F 98.6 F 98.9 F Temperature Source Temporal Oral Oral Pulse Rate 81 88 76 Respiratory Rate 18 18 16 Blood Pressure 111/69 113/76 114/68 Blood Pressure Mean 83 88 83 Pulse Ox 97 98 97 Oxygen Delivery Method Room Air Room Air Room Air MDM <SKYLAR Borwn - Last Filed: 07/12/21 18:58> MDM MDM Narrative Medical decision making narrative: Patient with indwelling Pandey had a urine culture that showed Pseudomonas only sensitive to IV antibiotics. She has had weakness but no fever or chills. She appears well nontoxic. Afebrile and vital signs within normal limits. She does have wound vacs in place for hip wounds but otherwise medical exam is unremarkable. Labs are pending. Pandey will be replaced and she will be started on cefepime with plan for admission. Diagnoses 1. Complicated UTI with indwelling Pandey 2. History of multiple sclerosis Lab Data Labs: Laboratory Results - last 24 hr 07/12/21 07/12/21 07/12/21 18:33 18:33 18:33 WBC 8.5 RBC 3.94 L Hgb 12.4 Hct 38.5 MCV 97.7 MCH 31.5 MCHC 32.2 RDW Std Deviation 52.3 H RDW Coeff of Raisa 14.3 Plt Count 292 MPV 11.2 Immature Gran % (Auto) 0.200 Neut % (Auto) 52.1 Lymph % (Auto) 33.2 Bent % (Auto) 8.1 Eos % (Auto) 5.9 H Baso % (Auto) 0.5 Absolute Neuts (auto) 4.4 Absolute Lymphs (auto) 2.82 Nucleated RBC % 0.2 PT INR APTT Sodium 140 Potassium 4.0 Chloride 105 Carbon Dioxide 31.0 Anion Gap 4 L BUN 36 H Creatinine 0.51 L Estim Creat Clear Calc 84.79 Est GFR (MDRD) Af Amer 159 Est GFR (MDRD) Non-Af 132 BUN/Creatinine Ratio 70.2 H Glucose 111 H Lactic Acid Calcium 9.4 Total Bilirubin 0.20 Direct Bilirubin 0.08 AST 12 L ALT 21 Alkaline Phosphatase 72 Total Protein 7.3 Albumin 3.3 Globulin 4.0 Urine Color Urine Clarity Urine pH Ur Specific [place] Urine Protein Urine Glucose (UA) Urine Ketones Urine Occult Blood Urine Nitrite Urine Bilirubin Urine Urobilinogen Ur Leukocyte Esterase Urine RBC Urine WBC Ur Squamous Epith Cells Urine Bacteria Urine Mucus 07/12/21 07/12/21 07/12/21 19:20 19:35 20:35 WBC RBC Hgb Hct MCV MCH MCHC RDW Std Deviation RDW Coeff of Raisa Plt Count MPV Immature Gran % (Auto) Neut % (Auto) Lymph % (Auto) Bent % (Auto) Eos % (Auto) Baso % (Auto) Absolute Neuts (auto) Absolute Lymphs (auto) Nucleated RBC % PT 13.3 INR 1.0 APTT 29.1 Sodium Potassium Chloride Carbon Dioxide Anion Gap BUN Creatinine Estim Creat Clear Calc Est GFR (MDRD) Af Amer Est GFR (MDRD) Non-Af BUN/Creatinine Ratio Glucose Lactic Acid 0.9 Calcium Total Bilirubin Direct Bilirubin AST ALT Alkaline Phosphatase Total Protein Albumin Globulin Urine Color Yellow Urine Clarity Cloudy Urine pH 7.0 Ur Specific [place] 1.010 Urine Protein 30 H Urine Glucose (UA) Normal Urine Ketones Negative Urine Occult Blood 150 H Urine Nitrite Negative Urine Bilirubin Negative Urine Urobilinogen Normal Ur Leukocyte Esterase 100 H Urine RBC 10-25 SEEN Urine WBC 5-10 SEEN Ur Squamous Epith Cells 0-5 SEEN Urine Bacteria 1+ Urine Mucus 0 SEEN <Dr. Earl Mendoza, DO - Last Filed: 07/12/21 21:28> [facility] MDM Narrative Medical decision making narrative: I performed a history and physical examination of the patient and discussed management plan with the physician customer service assistant. I reviewed the physician customer service assistant's note and agree with the documented findings and plan of care. Patient is wheelchair confined due to MS with indwelling Pandey catheter changed about 2 weeks ago. She began to feel weak couple days ago and urine culture was sent which grew out Pseudomonas aeruginosa. Home health has been with her but note that her has and she is living at home with her son who is gone majority of the day. They concerned about her overall wellbeing and her ability to clear this infection at home. She is afebrile here. White count is 8.5. Pandey catheter was changed. Normal lactic acid. Urine is not nitrate positive so it is possible that this colonization. I spoke with social work. Not can to be able to get her to rehab facility tonight. I will speak with the hospitalist regarding admission Earl Mendoza DO, MS Lab Data Attestation: I reviewed the patient's lab results. Labs: Laboratory Results - last 24 hr 07/12/21 07/12/21 07/12/21 18:33 18:33 18:33 WBC 8.5 RBC 3.94 L Hgb 12.4 Hct 38.5 MCV 97.7 MCH 31.5 MCHC 32.2 RDW Std Deviation 52.3 H RDW Coeff of Raisa 14.3 Plt Count 292 MPV 11.2 Immature Gran % (Auto) 0.200 Neut % (Auto) 52.1 Lymph % (Auto) 33.2 Bent % (Auto) 8.1 Eos % (Auto) 5.9 H Baso % (Auto) 0.5 Absolute Neuts (auto) 4.4 Absolute Lymphs (auto) 2.82 Nucleated RBC % 0.2 PT INR APTT Sodium 140 Potassium 4.0 Chloride 105 Carbon Dioxide 31.0 Anion Gap 4 L BUN 36 H Creatinine 0.51 L Estim Creat Clear Calc 84.79 Est GFR (MDRD) Af Amer 159 Est GFR (MDRD) Non-Af 132 BUN/Creatinine Ratio 70.2 H Glucose 111 H Lactic Acid Calcium 9.4 Total Bilirubin 0.20 Direct Bilirubin 0.08 AST 12 L ALT 21 Alkaline Phosphatase 72 Total Protein 7.3 Albumin 3.3 Globulin 4.0 Urine Color Urine Clarity Urine pH Ur Specific [place] Urine Protein Urine Glucose (UA) Urine Ketones Urine Occult Blood Urine Nitrite Urine Bilirubin Urine Urobilinogen Ur Leukocyte Esterase Urine RBC Urine WBC Ur Squamous Epith Cells Urine Bacteria Urine Mucus 07/12/21 07/12/21 07/12/21 19:20 19:35 20:35 WBC RBC Hgb Hct MCV MCH MCHC RDW Std Deviation RDW Coeff of Raisa Plt Count MPV Immature Gran % (Auto) Neut % (Auto) Lymph % (Auto) Bent % (Auto) Eos % (Auto) Baso % (Auto) Absolute Neuts (auto) Absolute Lymphs (auto) Nucleated RBC % PT 13.3 INR 1.0 APTT 29.1 Sodium Potassium Chloride Carbon Dioxide Anion Gap BUN Creatinine Estim Creat Clear Calc Est GFR (MDRD) Af Amer Est GFR (MDRD) Non-Af BUN/Creatinine Ratio Glucose Lactic Acid 0.9 Calcium Total Bilirubin Direct Bilirubin AST ALT Alkaline Phosphatase Total Protein Albumin Globulin Urine Color Yellow Urine Clarity Cloudy Urine pH 7.0 Ur Specific [place] 1.010 Urine Protein 30 H Urine Glucose (UA) Normal Urine Ketones Negative Urine Occult Blood 150 H Urine Nitrite Negative Urine Bilirubin Negative Urine Urobilinogen Normal Ur Leukocyte Esterase 100 H Urine RBC 10-25 SEEN Urine WBC 5-10 SEEN Ur Squamous Epith Cells 0-5 SEEN Urine Bacteria 1+ Urine Mucus 0 SEEN Discharge Plan Dx/Rx/DC Orders Clinical Impression: UTI (urinary tract infection) due to urinary indwelling Pandey catheter, Multiple sclerosis, Weakness Disposition Disposition: Acute Care [facility]
[2021-07-12 18:45] LABS: Absolute Lymphocyte Count 2.82 X10^3/uL (0.83-4.51); Absolute Neutrophil Count 4.4 X10^3/uL (2.0-7.7); Basophil# 0.04 X10^3/uL; Basophil% 0.5 % (0-1); Eosinophils% 5.9 % (0-5); Hematocrit 38.5 % (37-47); Hemoglobin 12.4 g/dL (12.0-15.0); Lymphocyte # 2.82 X10^3/ul (0.83-4.51); Lymphocyte % 33.2 % (19-41); Mean Corp Hgb Conc 32.2 g/dL (32-36); Mean Corpuscular Hgb 31.5 pg (27.0-32.0); Mean Corpuscular Volume 97.7 fL (81-99); Mean Platelet Vol. 11.2 fl (6.2-12.0); Monocyte# 0.69 X10^3/uL; Monocyte% 8.1 % (0-10); NRBC Flagged by Analyzer 0.2 % (0-5); Neutrophil # 4.42 X10^3/uL (2.7-7.7); Neutrophil % 52.1 % (47-70); Platelet Count 292 K/mm3 (150-450); RBC Distribution Width CV 14.3 % (11.6-14.6); RBC Distribution Width SD 52.3 fl (35.1-43.9); Red Blood Count 3.94 M/mm3 (4.2-5.4); White Blood Count 8.5 K/mm3 (4.4-11.0)
[2021-07-12 19:01] VITALS: BP 113/76; PULSE 88; RESP 18; TEMP 37; O2SAT 98
[2021-07-12 19:14] LABS: Anion Gap 4 (5-15); BUN 36 mg/dL (7-18); BUN/Creat Ratio 70.2 RATIO (10-20); Calcium,Total 9.4 mg/dL (8.5-10.1); Chloride 105 mmol/L (98-107); Creatinine, Serum 0.51 mg/dL (0.55-1.02); EST Glomerular Filtration Rate 132 mL/min (>60); Est Glom Filt Rate - Afr Amer 159 mL/min (>60); Estimated Creatinine Clearance 84.79 ml/min; Glucose 111 mg/dL (74-106); Sodium Level 140 mmol/L (136-145)
[2021-07-12 19:36] LABS: AST(SGOT) 12 U/L (15-37); Alanine Aminotransfer ALT/SGPT 21 U/L (13-56); Albumin, Serum 3.3 g/dL (3.2-5.0); Alkaline Phosphatase 72 U/L (45-117); Bilirubin, Direct 0.08 mg/dL (0.00-0.30); Protein, Total 7.3 g/dL (6.4-8.2)
[2021-07-12 19:42] LABS: Prothrombin Time (Protime)PT. 13.3 SECONDS (11.7-14.9)
[2021-07-12 19:43] LABS: Partial Thromboplast Time 29.1 Seconds (24.1-36.2)
[2021-07-12 20:26] LABS: Lactic Acid 0.9 mmol/L (0.4-1.9)
[2021-07-12 20:43] VITALS: BP 114/68; PULSE 76; RESP 16; TEMP 37.2; O2SAT 97
[2021-07-12] MEDS: 0.9% Normal Saline 1,000 ML 999 ML IV (20:44)
--- NOTE | 2021-07-12 20:48 | ED.RN ---
pt. calls out states she thinks she urinated in the bed. upon further assessment catheter that was placed was in the vaginal canal. new kaye 18f. placed aseptic teq. cath secured to leg. bag below bed. free of kinks. drains 100cc
[2021-07-12 20:50] LABS: Mucous, Urine 0 SEEN /hpf (<or=2+)
[2021-07-12 20:57] LABS: Color, Urine Yellow (Yellow); Glucose, Dipstick Normal (Normal); Ketone-Dipstick Negative (Negative); Leukocyte Esterase-Dipstick 100 /ul (Negative); Nitrite-Dipstick Negative (Negative); Occult Blood-Urine 150 /ul (Negative); Protein-Dipstick 30 mg/dl (Negative); Urine Bilirubin Dipstick Negative (Negative); Urine Clarity Cloudy (Clear); Urine Urobilinogen Normal (Normal)
[2021-07-12 21:17] LABS: Bacteria 1+ /hpf (None Seen); Red Blood Cells-Urine 10-25 SEEN /hpf (0-5); Squamous Epithelial Cells - UA 0-5 SEEN /hpf (5-10); White Blood Cells 5-10 SEEN /hpf (0-5)
--- NOTE | 2021-07-12 21:33 | PCM.HP.STD ---
HPI - General General Date of Admission: 07/12/21 HPI Narrative CASPER CHRISTENSEN, is a 55 F with a significant history of multiple sclerosis on baclofen; indwelling Pandey catheter and a decubitus ulcer who presents to the emergency department with persistent urinary symptoms that started 3 days ago. Home health nurse collected urine culture that returned positive for Pseudomonas. Patient has a left side mastectomy secondary to breast cancer. Home health is concerned that IV antibiotics about twice daily will be a problem. Further patient lives with her son who leaves home about 6 AM and returns after 7 PM. Reportedly home health emailed case management of our [facility] ([facility]) on patient condition. Of note patient follows up with wound care for her decubitus ulcers. Patient denies any nausea vomiting, fever or chills. She denies anorexia. She report that in about December last year her and the emotional distress put her in exacerbation of her multiple sclerosis. Patient is now wheel chair bound. Patient follows up with Dr. Viveros, pain management and is there is a plan to get baclofen pump and rehabilitation but all is waiting insurance approval. [facility] Medical History Breast cancer Chronic indwelling Pandey catheter History of breast cancer Multiple sclerosis Pressure injury of left hip, stage 4 Pressure injury of left hip, unstageable Pressure injury of right hip, stage 2 Pressure injury of right hip, stage 4 Pressure injury of sacral region, stage 4 Screening for malignant neoplasm of breast Home Medications baclofen 10 mg tablet 20 mg PO Q4H 02/28/17 [History Last Taken 10/12/17 06:00] cholecalciferol (vitamin D3) 10,000 unit PO DAILY 10/09/17 [History Last Taken 07/12/21] dalfampridine 10 mg PO BID PRN PRN 03/24/18 [History Last Taken 07/19/20] Metamucil Fiber Singles 1 packet PO DAILY 07/23/20 [History Last Taken 07/12/21] nitrofurantoin macrocrystal 25 mg capsule 50 mg PO QHS 11/06/20 [History Last Taken 07/12/21] tamoxifen 20 mg tablet 20 mg PO DAILY #90 tab 06/24/21 [Rx Last Taken Unknown] ascorbic acid (vitamin C) [Vitamin C] 1 g PO DAILY 07/12/21 [History Last Taken 07/12/21] docusate sodium [Colace] 100 mg PO QODAY 07/12/21 [History Last Taken 07/11/21] zinc 50 mg PO DAILY 07/12/21 [History Last Taken 07/12/21] Allergy/AdvReac Type Severity Reaction Status Date / Time ciprofloxacin Allergy Mild unknown Verified 07/12/21 18:01 Family History Aunt Breast cancer Mother Diabetes Surgical History h/o tonsillectomy S/P left mastectomy (~10/12/17) Social History household members: spouse Smoking Status: Former smoker alcohol intake: never ROS ROS Narrative Pertinent positives and pertinent negatives as noted in HPI. All other systems were reviewed and are negative. Vital Signs Vital Signs Vital Signs: 07/12/21 17:59 07/12/21 19:01 07/12/21 20:43 Temperature 99 F 98.6 F 98.9 F Temperature Source Temporal Oral Oral Pulse Rate 81 88 76 Respiratory Rate 18 18 16 Blood Pressure 111/69 113/76 114/68 Blood Pressure Mean 83 88 83 Pulse Ox 97 98 97 Oxygen Delivery Method Room Air Room Air Room Air Weight Weight: 43.091 kg Body Mass Index (BMI) 14.8 Physical Exam Narrative Physical exam: General: Well-nourished, well-developed. Head: Normocephalic, atraumatic, no tenderness Eyes: Vision is grossly intact. EOMI ENT, no trauma, moist mucous membranes, no rhinorrhea Neck: Nontender, full range of motion, no spinal tenderness, deformities, step-off CVS: Regular rate and rhythm. S1-S2 present. No murmur, gallop or rub. Respiratory : clear to auscultation bilaterally, chest wall nontender, no wheezing Abdomen: Soft, nontender, nondistended, normal bowel sounds, no masses : Deferred Back: Nontender, no CVA tenderness, no midline spinal tenderness, deformities, step-offs Extremities: Cachectic. Unable to raise bilateral legs. Bilateral legs are contracted. Able to mildly plantarflex left foot. Unable to plantarflex right foot. Skin: Ulcer on right hip and ulcer on coccygeal area . Neuro: Alert, oriented, cranial nerves II through XII grossly intact. Psychiatry: Normal mood. Normal affect. Not depressed. Not anxious. Results Lab / Micro Data Result Diagrams: 07/12/21 18:33 07/12/21 18:33 Labs: Laboratory Results - last 24 hr 07/12/21 18:33: WBC 8.5, RBC 3.94 L, Hgb 12.4, Hct 38.5, MCV 97.7, MCH 31.5, MCHC 32.2, RDW Std Deviation 52.3 H, RDW Coeff of Raisa 14.3, Plt Count 292, MPV 11.2, Immature Gran % (Auto) 0.200, Neut % (Auto) 52.1, Lymph % (Auto) 33.2, Drew % (Auto) 8.1, Eos % (Auto) 5.9 H, Baso % (Auto) 0.5, Absolute Neuts (auto) 4.4, Absolute Lymphs (auto) 2.82, Nucleated RBC % 0.2 07/12/21 18:33: Sodium 140, Potassium 4.0, Chloride 105, Carbon Dioxide 31.0, Anion Gap 4 L, BUN 36 H, Creatinine 0.51 L, Estim Creat Clear Calc 84.79, Est GFR (MDRD) Af Amer 159, Est GFR (MDRD) Non-Af 132, BUN/Creatinine Ratio 70.2 H, Glucose 111 H, Calcium 9.4 07/12/21 18:33: Total Bilirubin 0.20, Direct Bilirubin 0.08, AST 12 L, ALT 21, Alkaline Phosphatase 72, Total Protein 7.3, Albumin 3.3, Globulin 4.0 07/12/21 19:20: PT 13.3, INR 1.0, APTT 29.1 07/12/21 19:35: Lactic Acid 0.9 07/12/21 20:35: Urine Color Yellow, Urine Clarity Cloudy, Urine pH 7.0, Ur Specific [place] 1.010, Urine Protein 30 H, Urine Glucose (UA) Normal, Urine Ketones Negative, Urine Occult Blood 150 H, Urine Nitrite Negative, Urine Bilirubin Negative, Urine Urobilinogen Normal, Ur Leukocyte Esterase 100 H, Urine RBC 10-25 SEEN, Urine WBC 5-10 SEEN, Ur Squamous Epith Cells 0-5 SEEN, Urine Bacteria 1+, Urine Mucus 0 SEEN Assessment & Plan Assessment/Plan (1) UTI (urinary tract infection) due to urinary indwelling Pandey catheter: QUALIFIERS: Encounter type: initial encounter Indwelling urinary catheter type: indwelling urethral catheter Qualified Code(s): T83.511A - Infection and inflammatory reaction due to indwelling urethral catheter, initial encounter; N39.0 - Urinary tract infection, site not specified (2) Weakness: PLAN: UTI due to indwelling Pandey catheter Outpatient urine culture reviewed. Urine culture was positive for Pseudomonas intermediate sensitivity to ciprofloxacin and sensitive to Carbapenem; cefepime and Zosyn. Pseudomonas was resistant to levofloxacin. Urine culture on presentation was positive for urine occult blood; urine leukocyte esterase; urine bacteria was 5-10. Urine squamous epithelial cells was 0-5; urine bacteria was 1+. Urine nitrite was negative. However urine nitrites 07/10/2021 was positive. Pandey catheter was changed at emergency department. Started on cefepime at the emergency department and continued. Stage IV decubitus ulcer of sacrococcygeal area; and stage III decubitus ulcer of right hip Continue wound pump and dressing. Wound care consult Protein calorie malnutrition BMI of 14.9 kg/m? Ensure Enlive ordered. Nutrition consult Debility Secondary to multiple sclerosis. PT and OT consult. Case management consult. DVT prophylaxis Subcutaneous Lovenox ordered. Charges/Coding Visit Charges Inpatient E&M: 01353 Init Hosp L3
[2021-07-12 21:58] VITALS: BP 109/69; PULSE 61; RESP 16; TEMP 36.4; O2SAT 98
[2021-07-12 22:19] VITALS: BMI 15.0
[2021-07-12 22:29] VITALS: BP 98/59; PULSE 62; RESP 16; TEMP 36.6; O2SAT 98
[2021-07-13] MEDS: Baclofen 10 MG Tablet 20 MG PO ×6 (03:03→21:57)
[2021-07-13 06:30] VITALS: BP 92/60; PULSE 56; RESP 16; TEMP 36.6
[2021-07-13 06:52] LABS: Absolute Lymphocyte Count 1.93 X10^3/uL (0.83-4.51); Absolute Neutrophil Count 2.9 X10^3/uL (2.0-7.7); Basophil# 0.04 X10^3/uL; Basophil% 0.7 % (0-1); Eosinophils% 6.9 % (0-5); Hematocrit 34.2 % (37-47); Hemoglobin 11.4 g/dL (12.0-15.0); Lymphocyte # 1.93 X10^3/ul (0.83-4.51); Lymphocyte % 33.3 % (19-41); Mean Corp Hgb Conc 33.3 g/dL (32-36); Mean Corpuscular Hgb 32.5 pg (27.0-32.0); Mean Corpuscular Volume 97.4 fL (81-99); Mean Platelet Vol. 11.3 fl (6.2-12.0); Monocyte# 0.54 X10^3/uL; Monocyte% 9.3 % (0-10); NRBC Flagged by Analyzer 0 % (0-5); Neutrophil # 2.86 X10^3/uL (2.7-7.7); Neutrophil % 49.5 % (47-70); Platelet Count 241 K/mm3 (150-450); RBC Distribution Width CV 14.2 % (11.6-14.6); RBC Distribution Width SD 50.4 fl (35.1-43.9); Red Blood Count 3.51 M/mm3 (4.2-5.4); White Blood Count 5.8 K/mm3 (4.4-11.0)
[2021-07-13 07:16] LABS: Anion Gap 2 (5-15); BUN 19 mg/dL (7-18); BUN/Creat Ratio 55.9 RATIO (10-20); Calcium,Total 8.7 mg/dL (8.5-10.1); Chloride 110 mmol/L (98-107); Creatinine, Serum 0.34 mg/dL (0.55-1.02); EST Glomerular Filtration Rate 212 mL/min (>60); Est Glom Filt Rate - Afr Amer 256 mL/min (>60); Estimated Creatinine Clearance 128.98 ml/min; Glucose 85 mg/dL (74-106); Potassium 3.8 mmol/L (3.5-5.1); Sodium Level 140 mmol/L (136-145)
--- NOTE | 2021-07-13 08:26 | PN.HOSP_ITS ---
Subjective Subjective No new events. Objective Data Objective Data Vital Signs: Vital Signs Temp Pulse Resp BP Pulse Ox 36.6 C 56 L 16 92/60 98 07/13/21 06:30 07/13/21 06:30 07/13/21 06:30 07/13/21 06:30 07/12/21 22:29 Oxygen Delivery Method Room Air Weight: 43.7 kg Body Mass Index (BMI) 15.0 Intake & Output: Intake and Output for Last 24 Hours 07/11/21 07/12/21 07/13/21 23:59 23:59 23:59 Intake Total 1150 / 1150 Output Total 1500 / 1500 Balance -350 / -350 Lab / Micro Data Result Diagrams: 07/13/21 06:29 07/13/21 06:29 Labs: Laboratory Results - last 24 hr 07/12/21 18:33: WBC 8.5, RBC 3.94 L, Hgb 12.4, Hct 38.5, MCV 97.7, MCH 31.5, MCHC 32.2, RDW Std Deviation 52.3 H, RDW Coeff of Raisa 14.3, Plt Count 292, MPV 11.2, Immature Gran % (Auto) 0.200, Neut % (Auto) 52.1, Lymph % (Auto) 33.2, [place] % (Auto) 8.1, Eos % (Auto) 5.9 H, Baso % (Auto) 0.5, Absolute Neuts (auto) 4.4, Absolute Lymphs (auto) 2.82, Nucleated RBC % 0.2 07/12/21 18:33: Sodium 140, Potassium 4.0, Chloride 105, Carbon Dioxide 31.0, Anion Gap 4 L, BUN 36 H, Creatinine 0.51 L, Estim Creat Clear Calc 84.79, Est GFR (MDRD) Af Amer 159, Est GFR (MDRD) Non-Af 132, BUN/Creatinine Ratio 70.2 H, Glucose 111 H, Calcium 9.4 07/12/21 18:33: Total Bilirubin 0.20, Direct Bilirubin 0.08, AST 12 L, ALT 21, Alkaline Phosphatase 72, Total Protein 7.3, Albumin 3.3, Globulin 4.0 07/12/21 19:20: PT 13.3, INR 1.0, APTT 29.1 07/12/21 19:35: Lactic Acid 0.9 07/12/21 20:35: Urine Color Yellow, Urine Clarity Cloudy, Urine pH 7.0, Ur Specific [place] 1.010, Urine Protein 30 H, Urine Glucose (UA) Normal, Urine Ketones Negative, Urine Occult Blood 150 H, Urine Nitrite Negative, Urine Bilirubin Negative, Urine Urobilinogen Normal, Ur Leukocyte Esterase 100 H, Urine RBC 10-25 SEEN, Urine WBC 5-10 SEEN, Ur Squamous Epith Cells 0-5 SEEN, Urine Bacteria 1+, Urine Mucus 0 SEEN 07/13/21 06:29: WBC 5.8, RBC 3.51 L, Hgb 11.4 L, Hct 34.2 L, MCV 97.4, MCH 32.5 H, MCHC 33.3, RDW Std Deviation 50.4 H, RDW Coeff of Raisa 14.2, Plt Count 241, MPV 11.3, Immature Gran % (Auto) 0.300, Neut % (Auto) 49.5, Lymph % (Auto) 33.3, [place] % (Auto) 9.3, Eos % (Auto) 6.9 H, Baso % (Auto) 0.7, Absolute Neuts (auto) 2.9, Absolute Lymphs (auto) 1.93, Nucleated RBC % 0 07/13/21 06:29: Sodium 140, Potassium 3.8, Chloride 110 H, Carbon Dioxide 28.0, Anion Gap 2 L, BUN 19 H, Creatinine 0.34 L, Estim Creat Clear Calc 128.98, Est GFR (MDRD) Af Amer 256, Est GFR (MDRD) Non-Af 212, BUN/Creatinine Ratio 55.9 H, Glucose 85, Calcium 8.7 Physical Exam Const alert and no apparent distress Resp normal respiratory effort, no retractions, no use of accessory muscles and clear to auscultation bilaterally Cardio regular rate, regular rhythm, S1 normal heart sound and S2 normal heart sound GI normal to inspection, nondistended, normoactive bowel sounds, soft to palpation, non-tender and non-distended GI Narrative: abdominal bruit with visible thrill. Extremity normal to inspection Neuro oriented x3 Sensorium / Orientation: awake and alert Assessment & Plan Assessment/Plan (1) UTI (urinary tract infection) due to urinary indwelling Pandey catheter: QUALIFIERS: Encounter type: initial encounter Indwelling urinary catheter type: indwelling urethral catheter Qualified Code(s): T83.511A - Infection and inflammatory reaction due to indwelling urethral catheter, initial encounter; N39.0 - Urinary tract infection, site not specified (2) Weakness: (3) Pressure injury of sacral region, stage 4: PLAN: 1. Pseudomonal UTI, catheter associated * resistant to FQN * on Cefepime * will need IV abx to complete treatment, weather in the hospital, SNF or home. Continue through 07/18/2021 * Catheter has been changed in ED 2. Debility * 2/2 UTI, MS and poor baseline performance status * PT OT * anticipate need for SNF 3. abdominal bruit * concern for AAA * check Ab/pelvis CTA * may be auscultated due to thin body habitus. 4. protein calorie malnutrition * supplement * nutrition consult. 4. VTE prophylaxis: LMWH Charges/Coding Visit Charges Inpatient E&M: 83677 Subs Hosp L2
[2021-07-13 09:00] VITALS: BP 104/65; PULSE 71; RESP 15; TEMP 36.7; O2SAT 98
[2021-07-13 10:25] VITALS: O2SAT 96
[2021-07-13] MEDS: Enoxaparin 40 MG/0.4 ML Syringe SC (10:30)
[2021-07-13] MEDS: Psyllium 1 PACKET PO (10:31)
[2021-07-13] MEDS: DALFAMPRIDINE 10 MG TAB.ER.12H PO ×2 (10:32→21:58)
[2021-07-13] MEDS: Acetaminophen 325 MG Tablet 650 MG PO ×2 (10:51→20:10)
--- NOTE | 2021-07-13 11:17 | CASEMGMT ---
Addendum entered by Shayla Fernandez 07/13/21 11:49: SW did inquire w/pt who she would like to include with assistance in discharge planning, at this time pt declined including anyone in the planning, feels she is capable to do this herself without assist. HARRIS Alex Original Note: Social Work SW met w/pt in room to review prior level of care and anticipated discharge plan. PCP: Dr. Mario Soliz Specialists: Dr. Raygoza, neurology Insurance: [facility] Pharmacy: [facility], or if here [facility] LNOK: Son Yuri, [id number], step son. LW/POA: Pt has not completed these documents, would like to do so as time allows Living arrangements/prior level of function: Pt lives home w/son in a two story home with a stair chair. Pt states can no longer transfer herself, so her son helps to transfer her in the morning and evening. Pt has a kaye catheter and uses Depends. Pt states calls her best friend Migel or her [id number] when needed to change the Depends. She states that it's not that often however due to constipation. Pt states it would be helpful to have more people to call. Pt is able to use a microwave, toaster over, air fryer. Her [id number] helps with the cleaning. DME: wheelchair, power chair, bedside commode, kaye catheter, stair chair SNF/HHC: Pt was in TCU last year after a femur fracture. Pt does have HHC through [facility] for wound care, [facility] Assessment: Pt explains she needs IV antibiotics 2 times per day for one week, and home health is not able to assist pt with this, so she is here needing placement. Pt was to get a Baclafan pump yesterday, arranged through Dr. Viveros's office, but this did not happen. She states will likely have to wait until August now as the person who places the pumps is here only once per month. Dr. Viveros wants pt to go to rehab after the pump is placed to work on gaining strength back. Pt explains after losing her , she had an exacerbation of her MS and lost strength. Before this she was still able to transfer herself. We discussed the plan for now, SW did explain there is no guarantee her insurance will authorize her to go to SNF, but we can try. Pt states understanding. SW provided a list of SNF's in pt's preferred geographic area, complete with quality and resource use data, that takes her insurance. Pt would like to again go to TCU. SW explained will leave a message for TCU and will have SW follow up w/her on Thursday. SW also explained will let SW on Thursday know to follow up with completing LW/POA as time allows. SW called TCU, message left. SW will continue to follow for anticipated discharge to SNF once pt has been accepted and precert has been attained. HARRIS Alex
[2021-07-13] MEDS: Cholecalciferol (VIT D3) 25 MCG TABLET (1,000 UNITS) PO (12:45)
[2021-07-13] MEDS: Ascorbic Acid 500 MG Tablet 1000 MG PO (12:45)
--- NOTE | 2021-07-13 13:10 | CT_ITS ---
STUDY: CTA OF THE ABDOMINAL AORTA REASON FOR EXAM: Female, 55 years old. abdominal bruits -- concern for abdominal aortic aneurysm RADIATION DOSAGE (If Supplied By Facility): CTDIvol = ( 6.92 ) mGy, DLP = ( 324.38 ) mGycm TECHNIQUE: Axial CT angiography multi-detector data acquisition was obtained from the to the following intravenous administration of IV 75mL Isovue-370. Axial images and MIP images were reconstructed from the axial data set. Post-processing of the angiographic images was performed, with multiplanar reformation and 3D reconstruction. Individualized dose optimization techniques were used for this CT. TECHNICAL QUALITY: Good COMPARISON: Chest x-ray dated March 27, 2021 Descriptors of Narrowing: None (0%) Mild (< 50%) Moderate (50-70%) Severe (70-90%) Subtotal/Total Occlusion (90-100%) Non-Evaluable (technically non-diagnostic FINDINGS: Abdominal aorta: No demonstrated narrowing. Minimal calcified atherosclerotic plaque of the abdominal aorta. No dissection or aneurysmal dilatation of the abdominal aorta. No periaortic inflammation or evidence of hemorrhage. Celiac and superior mesenteric arteries: No demonstrated narrowing. Inferior mesenteric artery: No demonstrated narrowing. Right renal artery(arteries): No demonstrated narrowing. Left renal artery(arteries): No demonstrated narrowing. Right common iliac artery: No demonstrated narrowing. Right external iliac artery: No demonstrated narrowing. Right internal iliac artery: No demonstrated narrowing. Left common iliac artery: No demonstrated narrowing. Left external iliac artery: No demonstrated narrowing. Left internal iliac artery: No demonstrated narrowing. RIGHT LOWER EXTREMITY Right common femoral artery: No demonstrated narrowing. LEFT LOWER EXTREMITY Left common femoral artery: No demonstrated narrowing. NONVASCULAR FINDINGS: Hyperinflation of both lungs consistent with COPD. Normal liver. No intrahepatic biliary duct dilatation or liver mass. Normal gallbladder and extrahepatic biliary system. Normal spleen. Normal pancreas. Normal bilateral adrenal glands. Normal right kidney. Normal left kidney. No hydronephrosis or renal masses. No large stones. Mild gaseous and fluid/food content distention of the stomach and gastroduodenal junction. No wall thickening. Normal small intestine. Normal colon. A large amount of stool is present throughout the full length of the colon consistent with constipation. No bowel dilatation or obstruction. No free air or free fluid. There is non-visualization of the appendix. Normal abdominal aorta. Normal inferior vena cava. Normal retroperitoneum. The bladder is collapsed around a catheter. Unremarkable uterus and adnexa. Normal abdominal wall. Small amount of air in the subcutaneous fat of the left anterior abdominal wall is presumed to be related to an injection to this region. There are diffuse degenerative changes of the visualized lumbar spine. CT/CT ANGIO ABD&PEL W/O&W/DYE IMPRESSION: 1. Mild gaseous and fluid/food content distention of the stomach and gastroduodenal junction. No wall thickening. 2. A large amount of stool is present throughout the full length of the colon consistent with constipation. 3. Abdominal aorta: No demonstrated narrowing. Minimal calcified atherosclerotic plaque of the abdominal aorta. No dissection or aneurysmal dilatation of the abdominal aorta. No periaortic inflammation or evidence of hemorrhage. 4. Unremarkable abdominal aorta hemodynamically significant stenosis. Electronically Signed: Osmany Padilla MD at 15:26 EDT ,
[2021-07-13] MEDS: 0.9% Saline Lock 10 ML Syringe IV (13:41)
[2021-07-13 19:59] VITALS: BP 117/54; PULSE 65; RESP 16; TEMP 37; O2SAT 95
[2021-07-13] MEDS: Tamoxifen 10 MG Tablet 20 MG PO (21:58)
[2021-07-13] MEDS: Docusate Sodium 100 MG Capsule PO (21:58)
[2021-07-14] MEDS: Acetaminophen 325 MG Tablet 650 MG PO ×2 (02:17→21:59)
[2021-07-14] MEDS: Baclofen 10 MG Tablet 20 MG PO ×6 (02:20→21:59)
[2021-07-14 02:21] VITALS: BP 109/53; PULSE 60; RESP 16; TEMP 36.5; O2SAT 99
--- NOTE | 2021-07-14 09:13 | PN.HOSP_ITS ---
Subjective Subjective No new events. Objective Data Objective Data Vital Signs: Vital Signs Temp Pulse Resp BP Pulse Ox 36.5 C L 60 16 109/53 L 99 07/14/21 02:21 07/14/21 02:21 07/14/21 02:21 07/14/21 02:21 07/14/21 02:21 Oxygen Delivery Method Room Air Weight: 43.7 kg Body Mass Index (BMI) 15.0 Intake & Output: Intake and Output for Last 24 Hours 07/12/21 07/13/21 07/14/21 23:59 23:59 23:59 Intake Total 2200 / 2200 1000 / 1000 Output Total 3100 / 3100 1600 / 1600 Balance -900 / -900 -600 / -600 Lab / Micro Data Result Diagrams: 07/13/21 06:29 07/13/21 06:29 Radiography Diagnostic Testing: Radiology Impression Abdomen/Pelvis CTA 07/13/21 13:10 IMPRESSION: 1. Mild gaseous and fluid/food content distention of the stomach and gastroduodenal junction. No wall thickening. 2. A large amount of stool is present throughout the full length of the colon consistent with constipation. 3. Abdominal aorta: No demonstrated narrowing. Minimal calcified atherosclerotic plaque of the abdominal aorta. No dissection or aneurysmal dilatation of the abdominal aorta. No periaortic inflammation or evidence of hemorrhage. 4. Unremarkable abdominal aorta hemodynamically significant stenosis. Electronically Signed: Osmany Padilla MD at 15:26 EDT Reading Location ID and State: [address] [place] [address] , Service support , Physical Exam Const alert and no apparent distress Resp normal respiratory effort, no retractions and no use of accessory muscles Cardio regular rate, regular rhythm, S1 normal heart sound and S2 normal heart sound GI normal to inspection, nondistended, normoactive bowel sounds, soft to palpation, non-tender and non-distended Extremity normal to inspection and full ROM Assessment & Plan Assessment/Plan (1) UTI (urinary tract infection) due to urinary indwelling Pandey catheter: QUALIFIERS: Encounter type: initial encounter Indwelling urinary catheter type: indwelling urethral catheter Qualified Code(s): T83.511A - Infection and inflammatory reaction due to indwelling urethral catheter, initial encounter; N39.0 - Urinary tract infection, site not specified (2) Weakness: (3) Pressure injury of sacral region, stage 4: PLAN: 1. Pseudomonal UTI, catheter associated * resistant to FQN * on Cefepime * will need IV abx to complete treatment, weather in the hospital, SNF or home. Continue through 07/18/2021 * Catheter has been changed in ED * Order PICC 2. Debility * 2/2 UTI, MS and poor baseline performance status * PT OT * anticipate need for SNF 3. abdominal bruit * Ab/pelvis CTA was negative for dissection or aneurysm * likely prominent given thin body habitus. * no further work up at this time. 4. protein calorie malnutrition * supplement * nutrition consult. 5. Constipation: * incidentally noticed on CTA * add Miralax and PRN dulcolax. 6. H/O femur fracture * check 25 OH D level 7. VTE prophylaxis: LMWH 8. Disposition: to SNF pending precertification. Charges/Coding Visit Charges Inpatient E&M: 49402 Subs Hosp L2
[2021-07-14] MEDS: DALFAMPRIDINE 10 MG TAB.ER.12H PO ×2 (09:26→20:33)
[2021-07-14] MEDS: Ascorbic Acid 500 MG Tablet 1000 MG PO (09:26)
[2021-07-14] MEDS: Psyllium 1 PACKET PO (09:27)
[2021-07-14] MEDS: Enoxaparin 40 MG/0.4 ML Syringe SC (09:27)
[2021-07-14] MEDS: Cholecalciferol (VIT D3) 25 MCG TABLET (1,000 UNITS) PO (09:33)
[2021-07-14] MEDS: Polyethylene Glycol 3350 17 GM PACKET PO (09:33)
[2021-07-14 09:44] VITALS: BP 101/60; PULSE 65; RESP 16; TEMP 36.4; O2SAT 98
[2021-07-14 14:15] VITALS: BP 108/63; PULSE 72; RESP 16; TEMP 36.8; O2SAT 98
[2021-07-14 20:23] VITALS: BP 106/47; PULSE 67; RESP 16; TEMP 36.9; O2SAT 96
[2021-07-14] MEDS: Tamoxifen 10 MG Tablet 20 MG PO (22:03)
[2021-07-15 02:22] VITALS: BP 91/51; PULSE 60; RESP 16; TEMP 36.6; O2SAT 96
[2021-07-15] MEDS: Baclofen 10 MG Tablet 20 MG PO ×6 (02:32→21:28)
[2021-07-15 08:00] VITALS: BP 93/65; PULSE 61; RESP 16; TEMP 36.9; O2SAT 97
[2021-07-15] MEDS: Ascorbic Acid 500 MG Tablet 1000 MG PO (08:26)
[2021-07-15] MEDS: DALFAMPRIDINE 10 MG TAB.ER.12H PO ×2 (08:27→21:27)
[2021-07-15 09:25] LABS: Vitamin D,25 Hydroxy 98.5 ng/mL
--- NOTE | 2021-07-15 09:55 | CASEMGMT ---
Social Work Note SW reviewed chart. A referral was made to TCU for pt. SW asked PT/OT to reevaluate pt. PT/OT to reevaluate pt. SW updated TCU. Plan: TCU pending pre-cert Ankita Rolon MSW, SCRIPT EDITOR
--- NOTE | 2021-07-15 09:56 | PN.HOSP_ITS ---
Subjective Subjective Patient is a 55-year-old lady with history of multiple sclerosis with significant debility who was sent to the ED with persistent urinary symptoms. She had apparently had urine cultures performed as outpatient positive for Pseudomonas. Objective Data Objective Data Vital Signs: Vital Signs Temp Pulse Resp BP Pulse Ox 98.4 F 61 16 93/65 97 07/15/21 08:00 07/15/21 08:00 07/15/21 08:00 07/15/21 08:00 07/15/21 08:00 Oxygen Delivery Method Room Air Weight: 43.7 kg Body Mass Index (BMI) 15.0 Intake & Output: Intake and Output for Last 24 Hours 07/13/21 07/14/21 07/15/21 23:59 23:59 23:59 Intake Total 2200 / 2200 2650 / 2650 1000 / 1000 Output Total 3100 / 3100 2250 / 2250 1000 / 1000 Balance -900 / -900 400 / 400 0 / 0 Lab / Micro Data Result Diagrams: 07/13/21 06:29 07/13/21 06:29 Labs: Laboratory Results - last 24 hr 07/14/21 13:10: Vitamin D 25-Hydroxy 98.5 Micro: Microbiology 07/12/21 20:34 Urine Catheter - Pandey Urine Culture - Final Pseudomonas aeroginosa Physical Exam Narrative GENERAL: cooperative HEENT: Atraumatic; EYES; Anicteric, Normal Conjunctiva NECK; supple, normal thyroid, RESPIRATORY: Diminished to auscultation CARDIOVASCULAR: Regular S1 S2, GI: soft, normoactive bowel sounds, : No Renal angle tenderness; EXTREMITIES: No edema, no clubbing, MUSCULOSKELETAL: no muscle wasting NEURO: Awake; no lateralizing signs. SKIN: No Rash PSYCH; Flat affect Assessment & Plan Assessment/Plan (1) UTI (urinary tract infection) due to urinary indwelling Pandey catheter: QUALIFIERS: Indwelling urinary catheter type: indwelling urethral catheter Encounter type: initial encounter Qualified Code(s): T83.511A - Infection and inflammatory reaction due to indwelling urethral catheter, initial encounter; N39.0 - Urinary tract infection, site not specified (2) Weakness: (3) Pressure injury of sacral region, stage 4: PLAN: Patient is a 55-year-old lady with history of multiple sclerosis with significant debility who was sent to the ED with persistent urinary symptoms. She had apparently had urine cultures performed as outpatient positive for Pseudomonas. 1. Indwelling catheter associated UTI with Pseudomonas ? Cultures reviewed resistant to fluconazole despite sensitive to cefepime which was initiated plan is to continue with antibiotic therapy through 07/18/2021; 2. Multiple sclerosis ? With significant debility ? Requested for PT OT eval plans for patient to be transferred to a senior living facility pending insurance approval 3. History of breast CA ? Status post left side mastectomy currently in remission 4. Constipation ? Treated symptomatically with MiraLAX and as needed Dulcolax 5. Severe protein calorie malnutrition ? As evidenced by low BMI of 15.1 decreased energy intake. Result of patient multiple medical comorbidities. Consult has been placed to dietitian 6. DVT prophylaxis ? Low molecular weight heparin Charges/Coding Visit Charges Inpatient E&M: 32796 Subs Hosp L2
[2021-07-15] MEDS: Enoxaparin 40 MG/0.4 ML Syringe SC (09:58)
[2021-07-15] MEDS: Cholecalciferol (VIT D3) 25 MCG TABLET (1,000 UNITS) PO (09:59)
[2021-07-15] MEDS: Psyllium 1 PACKET PO (10:06)
[2021-07-15] MEDS: Polyethylene Glycol 3350 17 GM PACKET PO (10:06)
--- NOTE | 2021-07-15 10:51 | WOUNDNOTE ---
Low air loss mattress ordered for patient. [facility] confirmation #[id number].
--- NOTE | 2021-07-15 10:53 | WOUNDNOTE ---
wound photo: left hip
--- NOTE | 2021-07-15 10:53 | WOUNDNOTE ---
wound photo: sacrum
--- NOTE | 2021-07-15 10:54 | WOUNDNOTE ---
wound photo: right hip/right ischium
--- NOTE | 2021-07-15 10:55 | WOUNDNOTE ---
wound photo: right hip
[2021-07-15] MEDS: DAKIN'S SOL HALF STRENGTH (=0.25%) 1 APPLIC TOPICAL (14:15)
--- NOTE | 2021-07-15 14:37 | CASEMGMT ---
Spoke to Rhonda clinical sales property manager at [facility] to discuss pt IV atb. Plan is for pt to go to TCU on Thursday and IV atb to finish the following day. Rhonda states that pt has other concerns in the home. States pt in the Fall was able to trf self but since 's in February has not been able to do so. was pt primary cg. Pt has no transportation. Pt lives with son who works from 6a-7. Pt son trf's pt from bed to electric w/c in the morning before work and then pt stays until someone comes to pt house, either [facility] or sister in law, etc. Pt has wound vacs that are bridged on both hips. Pt was supposed to have gotten a baclofen pump but did not do so, unclear of reason. Pt does have pressure reducing w/c cushion. Rhonda reports pt is not able to empty kaye d/t dexterity issues. Updated SW.
[2021-07-15 15:00] VITALS: BP 95/66; PULSE 66; RESP 16; TEMP 36.8; O2SAT 99
--- NOTE | 2021-07-15 15:44 | CASEMGMT ---
Social Work Note DAYDAY updated that pt will be on IV Cefepime at discharge. SW placed a call to TCU and updated Cortney. PT/OT evaluations are now completed as well. TCU to submit for pre-cert. DAYDAY in to speak with pt. SW introduced self and role at [facility]. SW updated pt that TCU has accepted pt pending pre-cert. SW spoke with pt regarding diagnosis. Pt states she is handling things the best that she can. Pt states that she has a very supportive family. Pt confirms that she lives with her son Yuri. Pt states that she has additional support through her BOGDAN, Step Son, and Best Friend. Pt states my support is the reason that I am still at home. SW spoke with pt regarding the recent loss of her . Pt states that he in December of last year. Pt states that her family has helped her through the loss of her . SW offered support to pt. SW asked pt if she wanted any Bereavement/Grief Counseling Resources and pt denied. DAYDAY spoke with pt regarding Mental Health. Initially pt denied any Anxiety or Depression but then states she has both Anxiety and Depression some days. Pt states she will get anxious about her MS. Pt states that some days she will think of her and then have some depression. Pt denied any history of suicidal thoughts/plans/ideations. Pt denied any current suicidal thoughts/plans/ideations. Pt states I am not suicidal but whenever the Lord calls me home I am ready. Pt denied any current suicidal thoughts/plans/ideations. Plan: TCU pending pre-cert Ankita Rolon WILLOW WORKER, COMMERCIAL FRONT LOAD DRIVER
--- NOTE | 2021-07-15 16:14 | CHAPLAIN ---
Type of Pastoral Visit _x__ Initial Visit ___ Follow-up Visit ___ On-call Visit ___ General Patient Visit ___ Spiritual Assessment ___ Family Conference ___ Bereavement ___ Rapid Response ___ Code Blue ___ Other (describe below) Pastoral Care Referral From _x__ Patient ___ Family ___ Nurse ___ Physician ___ Lodge Sales Associate ___ News Anchor ___ Other (describe below) Sacrament/Intervention _x__ Active listening ___ Anointing ___ Denominational _x__ Bereavement ___ Communion _x__ Steph exploration ___ _x__ Life review _x__ Prayer ___ Reconciliation ___ Sacrament of Sick _x__ Supportive presence ___ Wedding ___ Other (describe below) Pastoral Comments this patient and her spouse had been seen before during his illness and hospitalizations in past years; pt is offered presence and support; much conversation about her loss and how she is managing the changes and grief; pt is tearful at times as she talks; pt states she has good support from family and friends; pt relies on steph as well to cope; pt admits to having much on her plate to do yet and that her MS can be a challenge; pt responds well to support and expresses her thankfulness for the spiritual and emotional support given
[2021-07-15] MEDS: Acetaminophen 325 MG Tablet 650 MG PO (17:51)
--- NOTE | 2021-07-15 20:15 | PCM.HOSP.N ---
Hospitalist Note Notified by Lester HENRY that 1 of patient's blood cultures came back positive for gram-positive coccobacillus. Second blood culture still pending. Patient is currently on cefepime, will continue.
[2021-07-15 21:00] VITALS: BP 100/60; PULSE 95; RESP 18; TEMP 36.6; O2SAT 95
[2021-07-15] MEDS: Docusate Sodium 100 MG Capsule PO (21:28)
[2021-07-15] MEDS: Tamoxifen 10 MG Tablet 20 MG PO (21:29)
[2021-07-16] MEDS: Baclofen 10 MG Tablet 20 MG PO ×6 (02:17→21:20)
[2021-07-16 02:27] VITALS: BP 93/60; PULSE 56; RESP 18; TEMP 36.7; O2SAT 98
--- NOTE | 2021-07-16 07:23 | PCM.PN.HOSP ---
Subjective Subjective Patient seen appears comfortable at rest. Awaiting transfer to a fpc facility pending insurance availability Objective Data Objective Data Vital Signs: Vital Signs Temp Pulse Resp BP Pulse Ox 98.1 F 56 L 18 93/60 98 07/16/21 02:27 07/16/21 02:27 07/16/21 02:27 07/16/21 02:27 07/16/21 02:27 Oxygen Delivery Method Room Air Weight: 43.7 kg Body Mass Index (BMI) 15.0 Intake & Output: Intake and Output for Last 24 Hours 07/14/21 07/15/21 07/16/21 23:59 23:59 23:59 Intake Total 2650 / 2650 1930 / 2230 500 / 500 Output Total 2250 / 2250 1800 / 2150 850 / 850 Balance 400 / 400 130 / 80 -350 / -350 Lab / Micro Data Result Diagrams: 07/13/21 06:29 07/13/21 06:29 Labs: Laboratory Results - last 24 hr 07/14/21 13:10: Vitamin D 25-Hydroxy 98.5 Micro: Microbiology 07/12/21 19:20 Blood Culture (Wb) - Anticubital Right Blood Culture - Preliminary 07/12/21 20:34 Urine Catheter - Pandey Urine Culture - Final Pseudomonas aeroginosa Physical Exam Narrative GENERAL: cooperative HEENT: Atraumatic; EYES; Anicteric, Normal Conjunctiva NECK; supple, normal thyroid, RESPIRATORY: Diminished to auscultation CARDIOVASCULAR: Regular S1 S2, GI: soft, normoactive bowel sounds, : No Renal angle tenderness; EXTREMITIES: No edema, no clubbing, MUSCULOSKELETAL: no muscle wasting NEURO: Awake; no lateralizing signs. SKIN: No Rash PSYCH; Flat affect Assessment & Plan Assessment/Plan (1) UTI (urinary tract infection) due to urinary indwelling Pandey catheter: QUALIFIERS: Encounter type: initial encounter Indwelling urinary catheter type: indwelling urethral catheter Qualified Code(s): T83.511A - Infection and inflammatory reaction due to indwelling urethral catheter, initial encounter; N39.0 - Urinary tract infection, site not specified (2) Weakness: (3) Pressure injury of sacral region, stage 4: PLAN: Patient is a 55-year-old lady with history of multiple sclerosis with significant debility who was sent to the ED with persistent urinary symptoms. She had apparently had urine cultures performed as outpatient positive for Pseudomonas. 1. Indwelling catheter associated UTI with Pseudomonas ? Cultures reviewed resistant to fluconazole despite sensitive to cefepime which was initiated plan is to continue with antibiotic therapy through 07/18/2021; ?07/16/2021. Awaiting insurance precertification prior to transfer to fpc facility 2. Multiple sclerosis ? With significant debility ? Requested for PT OT eval plans for patient to be transferred to a fpc facility pending insurance approval 3. History of breast CA ? Status post left side mastectomy currently in remission 4. Constipation ? Treated symptomatically with MiraLAX and as needed Dulcolax 5. Severe protein calorie malnutrition ? As evidenced by low BMI of 15.1 decreased energy intake. Result of patient multiple medical comorbidities. Consult has been placed to dietitian 6. DVT prophylaxis ? Low molecular weight heparin 7. Physical deconditioning - Requested for PT OT eval and social media community manager to assist with discharge planning Charges/Coding Visit Charges Inpatient E&M: 03730 Subs Hosp L2
[2021-07-16 08:24] VITALS: BP 94/57; PULSE 64; RESP 18; TEMP 37.1; O2SAT 96
[2021-07-16] MEDS: Acetaminophen 325 MG Tablet 650 MG PO ×2 (08:43→19:48)
[2021-07-16] MEDS: Ascorbic Acid 500 MG Tablet 1000 MG PO (08:43)
[2021-07-16] MEDS: Polyethylene Glycol 3350 17 GM PACKET PO (08:44)
[2021-07-16] MEDS: Cholecalciferol (VIT D3) 25 MCG TABLET (1,000 UNITS) PO (08:44)
[2021-07-16] MEDS: Psyllium 1 PACKET PO (08:44)
[2021-07-16] MEDS: Enoxaparin 40 MG/0.4 ML Syringe SC (08:44)
[2021-07-16] MEDS: DALFAMPRIDINE 10 MG TAB.ER.12H PO ×2 (08:45→21:19)
[2021-07-16] MEDS: DAKIN'S SOL HALF STRENGTH (=0.25%) 1 APPLIC TOPICAL (11:15)
[2021-07-16] MEDS: 0.9% Saline Lock 10 ML Syringe IV (14:20)
[2021-07-16 14:29] VITALS: BP 99/59; PULSE 60; RESP 18; TEMP 36.7; O2SAT 99
--- NOTE | 2021-07-16 15:45 | CASEMGMT ---
Social Work Note DAYDAY spoke with Cortney with TCU, pre-cert is still pending. Pt will need COVID test on day of discharge. DAYDAY placed Green sheet on the chart in the event pre-cert is obtained. Plan: TCU pending pre-cert Ankita Rolon MSW, RAW HIDE TRIMMER
[2021-07-16 21:09] VITALS: BP 111/76; PULSE 65; RESP 18; TEMP 37; O2SAT 96
[2021-07-16] MEDS: Tamoxifen 10 MG Tablet 20 MG PO (21:20)
[2021-07-17 02:29] VITALS: BP 93/54; PULSE 53; RESP 18; TEMP 36.4; O2SAT 98
[2021-07-17] MEDS: Baclofen 10 MG Tablet 20 MG PO ×6 (02:31→21:15)
[2021-07-17 05:41] VITALS: BP 93/53; PULSE 53; RESP 16; TEMP 36.5; O2SAT 98
[2021-07-17 06:10] LABS: Absolute Lymphocyte Count 1.52 X10^3/uL (0.83-4.51); Absolute Neutrophil Count 2.2 X10^3/uL (2.0-7.7); Basophil# 0.02 X10^3/uL; Basophil% 0.4 % (0-1); Eosinophil# 0.44 X10^3/uL; Eosinophils% 9.5 % (0-5); Hematocrit 32.2 % (37-47); Hemoglobin 10.5 g/dL (12.0-15.0); Lymphocyte # 1.52 X10^3/ul (0.83-4.51); Lymphocyte % 32.8 % (19-41); Mean Corp Hgb Conc 32.6 g/dL (32-36); Mean Corpuscular Hgb 31.8 pg (27.0-32.0); Mean Corpuscular Volume 97.6 fL (81-99); Mean Platelet Vol. 10.8 fl (6.2-12.0); Monocyte# 0.46 X10^3/uL; Monocyte% 9.9 % (0-10); NRBC Flagged by Analyzer 0.6 % (0-5); Neutrophil # 2.18 X10^3/uL (2.7-7.7); Neutrophil % 47.2 % (47-70); POSITIVE MORPHOLOGY YES; Platelet Count 233 K/mm3 (150-450); RBC Distribution Width CV 14.2 % (11.6-14.6); RBC Distribution Width SD 50.8 fl (35.1-43.9); White Blood Count 4.6 K/mm3 (4.4-11.0)
[2021-07-17 06:11] LABS: Differential Indicated SCAN CRITERIA MET
[2021-07-17 06:29] LABS: Anion Gap 1 (5-15); BUN 22 mg/dL (7-18); BUN/Creat Ratio 68.1 RATIO (10-20); Calcium,Total 8.8 mg/dL (8.5-10.1); Chloride 108 mmol/L (98-107); Creatinine, Serum 0.32 mg/dL (0.55-1.02); EST Glomerular Filtration Rate 225 mL/min (>60); Est Glom Filt Rate - Afr Amer 272 mL/min (>60); Estimated Creatinine Clearance 137.04 ml/min; Glucose 92 mg/dL (74-106); Magnesium 2.3 mg/dL (1.6-2.6); Potassium 4.2 mmol/L (3.5-5.1); Sodium Level 140 mmol/L (136-145)
[2021-07-17 06:31] LABS: Anisocytosis 1+
--- NOTE | 2021-07-17 07:27 | PN.HOSP_ITS ---
Subjective Subjective Patient seen complains of stiffness. Insurance precertification still pending prior to patient being transferred to senior care facility Objective Data Objective Data Vital Signs: Vital Signs Temp Pulse Resp BP Pulse Ox 97.7 F L 53 L 16 93/53 L 98 07/17/21 05:41 07/17/21 05:41 07/17/21 05:41 07/17/21 05:41 07/17/21 05:41 Oxygen Delivery Method Room Air Weight: 43.7 kg Body Mass Index (BMI) 15.0 Intake & Output: Intake and Output for Last 24 Hours 07/15/21 07/16/21 07/17/21 23:59 23:59 23:59 Intake Total 1930 / 2230 1250.25 / 1250.25 419.25 / 419.25 Output Total 1800 / 2150 2700 / 2700 900 / 900 Balance 130 / 80 -1449.75 / -1449.75 -480.75 / -480.75 Lab / Micro Data Result Diagrams: 07/17/21 06:00 07/17/21 06:00 Labs: Laboratory Results - last 24 hr 07/17/21 06:00: WBC 4.6, RBC 3.30 L, Hgb 10.5 L, Hct 32.2 L, MCV 97.6, MCH 31.8, MCHC 32.6, RDW Std Deviation 50.8 H, RDW Coeff of Raisa 14.2, Plt Count 233, MPV 10.8, Immature Gran % (Auto) 0.200, Neut % (Auto) 47.2, Lymph % (Auto) 32.8, [place] % (Auto) 9.9, Eos % (Auto) 9.5 H, Baso % (Auto) 0.4, Absolute Neuts (auto) 2.2, Absolute Lymphs (auto) 1.52, Nucleated RBC % 0.6, Anisocytosis 1+ 07/17/21 06:00: Sodium 140, Potassium 4.2, Chloride 108 H, Carbon Dioxide 31.0, Anion Gap 1 L, BUN 22 H, Creatinine 0.32 L, Estim Creat Clear Calc 137.04, Est GFR (MDRD) Af Amer 272, Est GFR (MDRD) Non-Af 225, BUN/Creatinine Ratio 68.1 H, Glucose 92, Calcium 8.8, Magnesium 2.3 Micro: Microbiology 07/16/21 10:00 Wound - Sacral Gram Stain - Final 07/12/21 19:20 Blood Culture (Wb) - Anticubital Right Blood Culture - Preliminary 07/12/21 20:34 Urine Catheter - Pandey Urine Culture - Final Pseudomonas aeroginosa Physical Exam Narrative GENERAL: cooperative HEENT: Atraumatic; EYES; Anicteric, Normal Conjunctiva NECK; supple, normal thyroid, RESPIRATORY: Diminished to auscultation CARDIOVASCULAR: Regular S1 S2, GI: soft, normoactive bowel sounds, : No Renal angle tenderness; EXTREMITIES: No edema, no clubbing, MUSCULOSKELETAL: no muscle wasting NEURO: Awake; no lateralizing signs. SKIN: No Rash PSYCH; Flat affect Assessment & Plan Assessment/Plan (1) UTI (urinary tract infection) due to urinary indwelling Pandey catheter: QUALIFIERS: Encounter type: initial encounter Indwelling urinary catheter type: indwelling urethral catheter Qualified Code(s): T83.511A - Infection and inflammatory reaction due to indwelling urethral catheter, initial encounter; N39.0 - Urinary tract infection, site not specified (2) Weakness: (3) Pressure injury of sacral region, stage 4: PLAN: Patient is a 55-year-old lady with history of multiple sclerosis with significant debility who was sent to the ED with persistent urinary symptoms. She had apparently had urine cultures performed as outpatient positive for Pseudomonas. 1. Indwelling catheter associated UTI with Pseudomonas ? Cultures reviewed resistant to fluconazole despite sensitive to cefepime which was initiated plan is to continue with antibiotic therapy through 07/18/2021; ?07/16/2021. Awaiting insurance precertification prior to transfer to senior care facility 2. Multiple sclerosis ? With significant debility ? 07/16/2021 requested for PT OT eval plans for patient to be transferred to a senior care facility pending insurance approval - 07/17/2021;Patient seen complains of stiffness. Insurance precertification still pending prior to patient being transferred to senior care facility 3. History of breast CA ? Status post left side mastectomy currently in remission 4. Constipation ? Treated symptomatically with MiraLAX and as needed Dulcolax 5. Severe protein calorie malnutrition ? As evidenced by low BMI of 15.1 decreased energy intake. Result of patient multiple medical comorbidities. Consult has been placed to dietitian 6. DVT prophylaxis ? Low molecular weight heparin 7. Physical deconditioning - Requested for PT OT eval and social media manager to assist with discharge planning 8. Anemia - Secondary to chronic disorder monitoring H&H and transfuse if patient becomes symptomatic or hemoglobin falls below 7 Charges/Coding Visit Charges Inpatient E&M: 16720 Subs Hosp L2
[2021-07-17 07:53] VITALS: O2SAT 95
[2021-07-17] MEDS: Ascorbic Acid 500 MG Tablet 1000 MG PO (09:08)
[2021-07-17] MEDS: DALFAMPRIDINE 10 MG TAB.ER.12H PO ×2 (09:08→21:14)
[2021-07-17] MEDS: Enoxaparin 40 MG/0.4 ML Syringe SC (09:09)
[2021-07-17] MEDS: Polyethylene Glycol 3350 17 GM PACKET PO (09:09)
[2021-07-17] MEDS: Psyllium 1 PACKET PO (09:09)
[2021-07-17] MEDS: Cholecalciferol (VIT D3) 25 MCG TABLET (1,000 UNITS) PO (09:10)
[2021-07-17 09:24] VITALS: BP 95/65; PULSE 68; RESP 16; TEMP 36.6; O2SAT 99
[2021-07-17] MEDS: DAKIN'S SOL HALF STRENGTH (=0.25%) 1 APPLIC TOPICAL (10:50)
--- NOTE | 2021-07-17 12:07 | CASEMGMT ---
Social Work SW met with pt and assisted in completing Living Will and Health Care POA naming her son Sara Byrnes as primary and sister in law Evelin Laird as secondary. Original given to pt and copy placed on chart. NUZHAT Cabral
--- NOTE | 2021-07-17 12:34 | CASEMGMT ---
Social Work Note SW placed a call to Cortney with TCU, pre-cert is still pending. Plan: TCU pending pre-cert Ankita Rolon ORANGE PICKER, CERTIFIED WELDER
[2021-07-17 14:20] VITALS: BP 105/68; PULSE 66; RESP 16; TEMP 36.6; O2SAT 97
--- NOTE | 2021-07-17 14:21 | CHAPLAIN ---
Type of Pastoral Visit ___ Initial Visit _x__ Follow-up Visit ___ On-call Visit ___ General Patient Visit ___ Spiritual Assessment ___ Family Conference ___ Bereavement ___ Rapid Response ___ Code Blue ___ Other (describe below) Pastoral Care Referral From _x__ Patient ___ Family ___ Nurse ___ Physician ___ Seafood Clerk ___ Insurance Advisor ___ Other (describe below) Sacrament/Intervention _x__ Active listening ___ Anointing ___ Mosque ___ Bereavement ___ Communion ___ Steph exploration ___ ___ Life review ___ Prayer ___ Reconciliation ___ Sacrament of Sick ___ Supportive presence ___ Wedding ___ Other (describe below) Pastoral Comments brief visit with patient to see if she needed anything, wanted company, or if there was progress; pt appreciative of support and presence
--- NOTE | 2021-07-17 15:00 | CASEMGMT ---
Social Work Note DAYDAY spoke with Cortney with TCU. Pt has been denied SNF. Peer to Peer number option 1. Reference number [id number]. There is also a phone number for other discharge services and that number is the same as above ( ). DAYDAY updated physician. DAYDAY in to speak with pt. DAYDAY updated pt that she was denied SNF. DAYDAY informed pt that her IV antibiotics should be done tomorrow. Pt states that if she doesn't have to discharge with IV antibiotics then she is agreeable to discharge home. Pt states she will need her HHC resumed. DAYDAY updated physician, confirms pt will done with IV antibiotics tomorrow. Pt to discharge home tomorrow. DAYDAY updated Cortney with TCU. Plan: Home with [facility] Ankita Rolon MSW, STATISTICS PROFESSOR
--- NOTE | 2021-07-17 15:20 | CASEMGMT ---
Addendum entered by Lauren Perla 07/17/21 15:46: TC back from [facility] with [facility] on speaker, they are able to accept pt back but pt is at end of episode, will need to be new SOC. Original Note: Received notification that pt was denied SNF placement by insurance. TC to Rhonda at [facility] to make aware, left vm. TC to Georgina, nelida at [facility] to make aware, left vm for resumption of care and pt will be dc'd after iv atb completed tomorrow. Awaiting returned call.
[2021-07-17 21:11] VITALS: BP 102/65; PULSE 64; RESP 16; TEMP 37.2; O2SAT 97
[2021-07-17] MEDS: Docusate Sodium 100 MG Capsule PO (21:15)
[2021-07-17] MEDS: Tamoxifen 10 MG Tablet 20 MG PO (21:15)
[2021-07-18 02:49] VITALS: BP 93/53; PULSE 56; RESP 16; TEMP 36.6; O2SAT 98
[2021-07-18] MEDS: Baclofen 10 MG Tablet 20 MG PO ×3 (02:50→09:53)
[2021-07-18 06:00] VITALS: BP 93/54; PULSE 52; RESP 16; TEMP 36.8; O2SAT 99
[2021-07-18] MEDS: 0.9% Saline Lock 10 ML Syringe IV ×2 (06:08→11:39)
[2021-07-18 06:19] LABS: Absolute Lymphocyte Count 1.65 X10^3/uL (0.83-4.51); Absolute Neutrophil Count 2.1 X10^3/uL (2.0-7.7); Basophil# 0.02 X10^3/uL; Basophil% 0.4 % (0-1); Eosinophil# 0.49 X10^3/uL; Eosinophils% 10.4 % (0-5); Hematocrit 32.7 % (37-47); Hemoglobin 10.7 g/dL (12.0-15.0); Lymphocyte # 1.65 X10^3/ul (0.83-4.51); Lymphocyte % 34.9 % (19-41); Mean Corp Hgb Conc 32.7 g/dL (32-36); Mean Corpuscular Hgb 31.9 pg (27.0-32.0); Mean Corpuscular Volume 97.6 fL (81-99); Mean Platelet Vol. 10.8 fl (6.2-12.0); Monocyte# 0.45 X10^3/uL; Monocyte% 9.5 % (0-10); NRBC Flagged by Analyzer 0.6 % (0-5); Neutrophil % 44.4 % (47-70); POSITIVE MORPHOLOGY YES; Platelet Count 243 K/mm3 (150-450); RBC Distribution Width CV 14.3 % (11.6-14.6); RBC Distribution Width SD 51.3 fl (35.1-43.9); Red Blood Count 3.35 M/mm3 (4.2-5.4); White Blood Count 4.7 K/mm3 (4.4-11.0)
[2021-07-18 06:20] LABS: Differential Indicated SCAN CRITERIA MET
[2021-07-18 06:49] LABS: Anion Gap 4 (5-15); BUN 25 mg/dL (7-18); BUN/Creat Ratio 79.6 RATIO (10-20); Calcium,Total 8.4 mg/dL (8.5-10.1); Chloride 105 mmol/L (98-107); Creatinine, Serum 0.31 mg/dL (0.55-1.02); EST Glomerular Filtration Rate 232 mL/min (>60); Est Glom Filt Rate - Afr Amer 281 mL/min (>60); Estimated Creatinine Clearance 141.46 ml/min; Glucose 89 mg/dL (74-106); Potassium 4.2 mmol/L (3.5-5.1); Sodium Level 139 mmol/L (136-145)
[2021-07-18 07:52] VITALS: O2SAT 95
--- NOTE | 2021-07-18 07:53 | DS.PCM_ITS ---
Providers Date of Admission: 07/12/21 Primary Care Physician: Dr. Mario Soliz, DO Consultations 07/12/21 22:41 Consult: Onc/Wound/school resource officer Routine Comment: Reason for Consult:: Decubitus ulcer Reason For Visit: UTI; DEBILITY Diagnosis Discharge Diagnosis (1) UTI (urinary tract infection) due to urinary indwelling Pandey catheter: Status: Acute Code(s): T83.511A - Infection and inflammatory reaction due to indwelling urethral catheter, initial encounter; N39.0 - Urinary tract infection, site not specified Qualifiers: Encounter type: initial encounter Indwelling urinary catheter type: indwelling urethral catheter Qualified Code(s): T83.511A - Infection and inflammatory reaction due to indwelling urethral catheter, initial encounter; N39.0 - Urinary tract infection, site not specified (2) Weakness: Status: Acute Code(s): R53.1 - Weakness (3) Pressure injury of sacral region, stage 4: Status: Acute Code(s): L89.154 - Pressure ulcer of sacral region, stage 4 Medications at Discharge Home Medications baclofen 10 mg tablet 20 mg PO Q4H 02/28/17 cholecalciferol (vitamin D3) 10,000 unit PO DAILY 10/09/17 dalfampridine 10 mg PO BID PRN PRN 03/24/18 Metamucil Fiber Singles 1 packet PO DAILY 07/23/20 nitrofurantoin macrocrystal 25 mg capsule 50 mg PO QHS 11/06/20 tamoxifen 20 mg tablet 20 mg PO DAILY #90 tab 06/24/21 ascorbic acid (vitamin C) 1 g PO DAILY 07/12/21 docusate sodium [Colace] 100 mg PO QODAY 07/12/21 zinc 50 mg PO DAILY 07/12/21 Hospital Course Summary of Care Provided Minutes Spent on Discharge: 35 Hospital Course: Patient is a 55-year-old lady with history of multiple sclerosis with significant debility who was sent to the ED with persistent urinary symptoms. She had apparently had urine cultures performed as outpatient positive for Pseudomonas. 1. Indwelling catheter associated UTI with Pseudomonas ? Cultures reviewed resistant to fluconazole despite sensitive to cefepime which was initiated plan is to continue with antibiotic therapy through 07/18/2021; ?07/16/2021. Awaiting insurance precertification prior to transfer to half-way facility -07/18/2021. Patient was denied transfer to half-way facility by her insurance company subsequently discharged home with home health 2. Multiple sclerosis ? With significant debility ? 07/16/2021 requested for PT OT eval plans for patient to be transferred to a half-way facility pending insurance approval - 07/17/2021;Patient seen complains of stiffness. Insurance precertification still pending prior to patient being transferred to half-way facility - 07/18/2021. Patient was denied transfer to half-way facility by her insurance company subsequently discharged home with home health 3. History of breast CA ? Status post left side mastectomy currently in remission 4. Constipation ? Treated symptomatically with MiraLAX and as needed Dulcolax 5. Severe protein calorie malnutrition ? As evidenced by low BMI of 15.1 decreased energy intake. Result of patient multiple medical comorbidities. Consult has been placed to dietitian 6. DVT prophylaxis ? Low molecular weight heparin 7. Physical deconditioning - Requested for PT OT eval and director social welfare to assist with discharge planning 8. Anemia - Secondary to chronic disorder monitoring H&H and transfuse if patient becomes symptomatic or hemoglobin falls below 7 9. Stage IV pressure injury on the left hip, sacrum as well as right ischium ? Patient was seen by wound care. Plan is to continue care through home health on discharge Physical Exam Narrative GENERAL: cooperative HEENT: Atraumatic; EYES; Anicteric, Normal Conjunctiva NECK; supple, normal thyroid, RESPIRATORY: Diminished to auscultation CARDIOVASCULAR: Regular S1 S2, GI: soft, normoactive bowel sounds, : No Renal angle tenderness; EXTREMITIES: No edema, no clubbing, MUSCULOSKELETAL: no muscle wasting NEURO: Awake; no lateralizing signs. SKIN: No Rash PSYCH; Flat affect Weight / BMI Weight Weight: 43.7 kg Body Mass Index (BMI) 15.0 ABG / Lab / Microbiology Data Result Diagrams: 07/18/21 06:10 07/18/21 06:10 Laboratory: Laboratory Results - last 24 hr 07/18/21 06:10: WBC 4.7, RBC 3.35 L, Hgb 10.7 L, Hct 32.7 L, MCV 97.6, MCH 31.9, MCHC 32.7, RDW Std Deviation 51.3 H, RDW Coeff of Raisa 14.3, Plt Count 243, MPV 10.8, Immature Gran % (Auto) 0.400, Neut % (Auto) 44.4 L, Lymph % (Auto) 34.9, Borden % (Auto) 9.5, Eos % (Auto) 10.4 H, Baso % (Auto) 0.4, Absolute Neuts (auto) 2.1, Absolute Lymphs (auto) 1.65, Nucleated RBC % 0.6 07/18/21 06:10: Sodium 139, Potassium 4.2, Chloride 105, Carbon Dioxide 30.0, Anion Gap 4 L, BUN 25 H, Creatinine 0.31 L, Estim Creat Clear Calc 141.46, Est GFR (MDRD) Af Amer 281, Est GFR (MDRD) Non-Af 232, BUN/Creatinine Ratio 79.6 H, Glucose 89, Calcium 8.4 L Microbiology: Microbiology 07/12/21 19:20 Blood Culture (Wb) - Anticubital Right Blood Culture - Final Presumptive Micrococcus spp. 07/12/21 19:20 Blood Culture (Wb) - Right Wrist Blood Culture - Final No growth in 5 days. 07/16/21 10:00 Wound - Sacral Gram Stain - Final 07/16/21 10:00 Wound - Sacral Wound Culture - Preliminary Gram negative quirino Gram Positive Cocci 07/12/21 20:34 Urine Catheter - Pandey Urine Culture - Final Pseudomonas aeroginosa D/C Instructions Discharge Diet: No restrictions Discharge Activity: Return to Normal Activity Call your doctor if you observe: Fever of 101 or Higher, Shortness of breath, Fainting spells and Chest pain Meaningful Use Info Meaningful Use Diagnoses (Choose all that apply): None applicable Discharge Plan Admission Admit Date/Time: 07/12/21 21:26 Attending Provider: Kristian Wright Primary Care Provider: Mario Soliz Discharge Orders/Prescriptions Prescriptions: Continued baclofen 10 mg tablet 20 mg PO Q4H RF: 0 nitrofurantoin macrocrystal 25 mg capsule 50 mg PO QHS RF: 0 cholecalciferol (vitamin D3) 10,000 UNIT capsule 10,000 unit PO DAILY RF: 0 dalfampridine 10 MG tablet extended release 12 hr 10 mg PO BID PRN PRN (Reason: MS) RF: 0 Metamucil Fiber Singles 3.4 gram powder in packet 1 packet PO DAILY RF: 0 docusate sodium [Colace] 100 mg Capsule 100 mg PO QODAY RF: 0 ascorbic acid (vitamin C) 1,000 mg Tablet,Chewable 1 g PO DAILY RF: 0 zinc 50 mg Capsule 50 mg PO DAILY RF: 0 tamoxifen 20 mg tablet 20 mg PO DAILY Qty: 90 RF: 0 Referrals / Follow Up: Mario Soliz DO [Primary Care Provider] - Within 1 Week Disposition Disposition (needs filled in before D/C Order can be placed): Home Health Service Charges/Coding Visit Charges Inpatient E&M: 09715 Disch Hosp
[2021-07-18 09:51] VITALS: BP 115/76; PULSE 64; RESP 16; TEMP 36.4; O2SAT 99
[2021-07-18] MEDS: Psyllium 1 PACKET PO (09:53)
[2021-07-18] MEDS: DALFAMPRIDINE 10 MG TAB.ER.12H PO (09:53)
[2021-07-18] MEDS: Polyethylene Glycol 3350 17 GM PACKET PO (09:53)
[2021-07-18] MEDS: Ascorbic Acid 500 MG Tablet 1000 MG PO (09:53)
[2021-07-18] MEDS: Cholecalciferol (VIT D3) 25 MCG TABLET (1,000 UNITS) PO (09:53)
[2021-07-18] MEDS: Enoxaparin 40 MG/0.4 ML Syringe SC (09:53)
[2021-07-18] MEDS: DAKIN'S SOL HALF STRENGTH (=0.25%) 1 APPLIC TOPICAL (09:54)
--- NOTE | 2021-07-18 12:07 | PHA.DC.MR ---
Pharmacy Service has performed discharge medication reconciliation for this patient. No new medications at time of review. Medications reviewed are from previously reported home medications. Home Medications baclofen 10 mg tablet 20 mg PO Q4H 02/28/17 cholecalciferol (vitamin D3) 10,000 unit PO DAILY 10/09/17 dalfampridine 10 mg PO BID PRN PRN 03/24/18 Metamucil Fiber Singles 1 packet PO DAILY 07/23/20 nitrofurantoin macrocrystal 25 mg capsule 50 mg PO QHS 11/06/20 tamoxifen 20 mg tablet 20 mg PO DAILY #90 tab 06/24/21 ascorbic acid (vitamin C) 1 g PO DAILY 07/12/21 docusate sodium [Colace] 100 mg PO QODAY 07/12/21 zinc 50 mg PO DAILY 07/12/21 The patient's discharge medication list was reviewed for discrepancies and discrepancies were resolved.
--- NOTE | 2021-07-18 12:18 | CASEMGMT ---
Social Work Note Pt to discharge home today. SW in to speak with pt. SW asked pt how she is feeling about going home today. Pt states she is feeling ok, states that she is a little anxious. Pt states I just hope this infection doesn't come back. Pt states that she is also anxious about whether or not her insurance will pay for the Baclafan pump. SW offered support to pt. SW asked pt about her depression. Pt states she is doing well today. Pt denied any current suicidal thoughts/plans/ideations. Pt denied additional needs or concerns at this time. Pt states her friend will be transporting her home. Ankita Rolon LINING STUFFER, YARN REWINDER
--- NOTE | 2021-07-18 12:43 | CASEMGMT ---
CARL GONZALES in to pt room, pt is aware that [facility] will be in touch to resume care. Pt denies further needs.
== END 2021-07-18 12:55 | disposition home health service (06) | DRG 698 ==
LOC: ED 21:14 → MS3 07-13 06:56
PROVIDERS: Physician Assistant; Admitting Provider Hospitalist; Emergency Provider Emergency Medicine; PCP Family Medicine; Visit Provider Internal Medicine
DX: T83.511A Infection and inflammatory reaction due to indwelling urethral catheter, initial encounter (principal); L89.154 Pressure ulcer of sacral region, stage 4; E43 Unspecified severe protein-calorie malnutrition; L89.213 Pressure ulcer of right hip, stage 3; L89.314 Pressure ulcer of right buttock, stage 4; L89.224 Pressure ulcer of left hip, stage 4; Z16.32 Resistance to antifungal drug(s); Z68.1 Body mass index [BMI] 19.9 or less, adult; G35 Multiple sclerosis; N39.0 Urinary tract infection, site not specified; B96.5 Pseudomonas (aeruginosa) (mallei) (pseudomallei) as the cause of diseases classified elsewhere; D63.8 Anemia in other chronic diseases classified elsewhere; K59.00 Constipation, unspecified; B96.89 Other specified bacterial agents as the cause of diseases classified elsewhere; Z99.3 Dependence on wheelchair; Z87.891 Personal history of nicotine dependence; R53.81 Other malaise; Z85.3 Personal history of malignant neoplasm of breast; Z90.12 Acquired absence of left breast and nipple; Z79.899 Other long term (current) drug therapy; R09.89 Other specified symptoms and signs involving the circulatory and respiratory systems; Y84.6 Urinary catheterization as the cause of abnormal reaction of the patient, or of later complication, without mention of misadventure at the time of the procedure
CPT/HCPCS: 36415; 36569; 51702; 74174; 80048; 80076; 81001; 82306; 83605; 83735; 85025; 85610; 85730; 87040; 87070; 87075; 87077; 87086; 87088; 87186; 87205; 97110; 97161; 97162; 97165; 97530; 97535; 97802; 99285; J7030; J7050; Q9967; A4216

== ENCOUNTER → 2021-07-26 | Outpatient (CLI) | payer OTHER, SELFPAY ==
[2018-02-01 11:47] VITALS: BMI 15.0
[2021-07-26 13:56] LABS: Mucous, Urine 0 SEEN /hpf (<or=2+); Red Blood Cells-Urine 0 SEEN /hpf (0-5); White Blood Cells 0 SEEN /hpf (0-5)
[2021-07-26 15:29] LABS: Color, Urine Yellow (Yellow); Glucose, Dipstick Normal (Normal); Ketone-Dipstick 15 mg/dl (Negative); Leukocyte Esterase-Dipstick 25 /ul (Negative); Nitrite-Dipstick Negative (Negative); Occult Blood-Urine Negative /ul (Negative); Protein-Dipstick 30 mg/dl (Negative); Urine Bilirubin Dipstick Negative (Negative); Urine Clarity Clear (Clear); Urine Urobilinogen Normal (Normal)
[2021-07-26 16:48] LABS: Bacteria RARE /hpf (None Seen); Squamous Epithelial Cells - UA 0-5 SEEN /hpf (5-10)
== END | disposition home or self-care (01) ==
LOC: LABSPEC 13:51
PROVIDERS: PCP Family Medicine; Referring Provider Family Medicine; Visit Provider Family Medicine
DX: N39.0 Urinary tract infection, site not specified (principal)
CPT/HCPCS: 81001; 87086

== ENCOUNTER 2021-08-02 06:57 | Day surgery (SDC) | payer OTHER, SELFPAY ==
[2018-02-01 11:47] VITALS: BMI 15.0
[2021-08-02] VITALS (7 sets, daily range): BP systolic 86–117; BP diastolic 66–87; PULSE 57–76; RESP 16; TEMP 36.2–36.6; O2SAT 96–100; BMI 15.0
[2021-08-02] MEDS: Lactated Ringers 1,000 ML 15 ML IV ×2 (07:54→10:51)
[2021-08-02] MEDS: Cefazolin 2 GM in 0.9% Normal Saline 100 ML IV (08:50)
--- NOTE | 2021-08-02 08:50 | RAD_ITS ---
PROCEDURE: Pain pump insertion. DATE OF EXAMINATION: 08/02/2021 INDICATION: Female, 55 years old. Pain pump insertion. FLUOROSCOPY TIME (if supplied): (7 seconds) minutes/seconds. One image was obtained. RAD/Spine 1 View Any Level IMPRESSION: Fluoroscopic imaging provided for pain pump insertion. Electronically Signed: Dinesh Marie MD at 10:22 EDT ,
[2021-08-02] MEDS: Lidocaine 1% /Epi 1:100 (20ml) 20 ML Vial (09:31)
== END 2021-08-02 12:40 | disposition home or self-care (01) ==
LOC: SDC 06:58 → AC 06:58
PROVIDERS: PCP Family Medicine; Referring Provider Anesthesiology Pain Medicine; Visit Provider Anesthesiology Pain Medicine
PROC: (CPT 62362; principal; 2021-08-02 08:15)
DX: M54.16 Radiculopathy, lumbar region (principal); G35 Multiple sclerosis; Z85.3 Personal history of malignant neoplasm of breast; Z87.891 Personal history of nicotine dependence; Z87.442 Personal history of urinary calculi; Z79.899 Other long term (current) drug therapy; Z78.0 Asymptomatic menopausal state
CPT/HCPCS: 62362; 01992; 62350; 72020; 76000; J7120; J0475; J2405; J3490

== ENCOUNTER 2021-08-06 13:30 | Outpatient (RCR) | payer OTHER, SELFPAY ==
[2018-02-01 11:47] VITALS: BMI 15.0
[2021-07-14 00:14] VITALS: BP 107/63; PULSE 78; RESP 18; TEMP 36.6
[2021-08-06 13:26] VITALS: BP 109/71; TEMP 35.9
--- NOTE | 2021-08-06 16:00 | PCM.WC.HP ---
History of Present Illness Date of Service: 08/06/21 Chief Complaint: Nonhealing sacral ulcer, stage IV pressure injuries to bilateral hips History of Wound: Ms. 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 She has also developed a pressure ulcer of right ischium. She has a history of multiple sclerosis and has been wheelchair-bound for about 16 years. She has been seen by this wound center in the past, and was referred to Dr. Bond at [facility] for surgical intervention to her wounds in 2020. She states due to insurance changes she is no longer able to see Dr. Bond. She had a recent hospitalization from 07/12/21 - 07/18/21 for UTI. A sacral wound culture was obtained on 07/16/21 which was positive for E. coli, Enterococcus faecalis, Corynebacterium striatum and Bacteroides fragilis. She was started on Augmentin on 07/30/21, which was sensitive to all the bacterial growth, but she did not tolerate it because it caused her severe diarrhea, therefore she stopped taking it. She had an Intrathecal Baclofen Pain pump placed 08/02/21. She is currently on Keflex for that. She was on wound VACs applied to both her left and right hips at 125 mmHg being changed 3 times a week by home health services, and her sacral wound is being treated with Aquacel Ag and being changed 3 times a week as well. Wound care - with place wound VAC on hold. Will start Aquacel-Ag to the Sacral ulcer, right and left hip ulcers and right ischial ulcers covered with gauze daily. She denies any fever, chills, nausea, or vomiting. She states her appetite is good. She is drinking Jeuven and a protein shake daily. Progress of Wound: Sacral ulcer, right and left hip ulcers and right ischial ulcers are stable. She is in her wheelchair for at least 12 hours a day. If she is in her wheelchair, she is independent at home. ON LICENSE OF [facility] Medical History Breast cancer Chronic indwelling Kaye catheter Former smoker History of breast cancer History of edema Marijuana use Multiple sclerosis PONV (postoperative nausea and vomiting) Post-menopausal Pressure injury of left hip, stage 4 Pressure injury of left hip, unstageable Pressure injury of right hip, stage 2 Pressure injury of right hip, stage 4 Pressure injury of sacral region, stage 4 Screening for malignant neoplasm of breast Seasonal allergies Uses wheelchair Wears glasses Home Medications baclofen 10 mg tablet 20 mg PO Q4H 02/28/17 [History Last Taken 08/02/21 03:00] cholecalciferol (vitamin D3) 5,000 unit PO DAILY 10/09/17 [History Last Taken 07/12/21] dalfampridine 10 mg PO BID PRN PRN 03/24/18 [History Last Taken 07/19/20] Metamucil Fiber Singles 1 packet PO DAILY 07/23/20 [History Last Taken 07/12/21] nitrofurantoin macrocrystal 25 mg capsule 50 mg PO QHS 11/06/20 [History Last Taken 07/12/21] tamoxifen 20 mg tablet 20 mg PO DAILY #90 tab 06/24/21 [Rx Last Taken Unknown] ascorbic acid (vitamin C) 1 g PO DAILY 07/12/21 [History Last Taken 07/12/21] docusate sodium [Colace] 100 mg PO QODAY 07/12/21 [History Last Taken 07/11/21] zinc 50 mg PO DAILY 07/12/21 [History Last Taken 07/12/21] Lactobac 40-Bifido 3-S.thermop [Probiotic] 1 cap PO DAILY 07/30/21 [History Last Taken Unknown] Marijuana 3 drp PO/SL TID 07/30/21 [History Last Taken Unknown] amoxicillin-pot clavulanate 1 tab PO Q12H 14 Days #28 tab 07/30/21 [Rx Last Taken Unknown] Allergy/AdvReac Type Severity Reaction Status Date / Time ciprofloxacin Allergy Mild Other Verified 07/30/21 08:03 Family History Aunt Breast cancer Mother Diabetes Surgical History h/o tonsillectomy History of bilateral oophorectomy S/P left mastectomy (~10/12/17) Social History household members: spouse Smoking Status: Former smoker alcohol intake: never ROS Constitutional Constitutional: Reports systems reviewed and no addt'l complaints, except as documented Eyes Eyes: Reports double vision ENT HEENT: Reports none Cardiovascular Cardiovascular: Denies chest pain Respiratory/Chest Respiratory/Chest: Denies cough or shortness of breath at rest Gastrointestinal Gastrointestinal: Denies abdominal pain Genitourinary Genitourinary: Reports other Details: frequent UTI, indwelling urinary catheter Musculoskeletal Musculoskeletal: Reports muscle weakness, myalgias, stiffness, tremors and other Details: history of MS, recently had intrathecal pain pump placed. Neurologic Neurologic: Reports numbness, radicular pain, weakness and other Details: history of MS Psychiatric Psychiatric: Reports none Allergic/Immunologic Allergic/Immunologic: Reports none Vital Signs Vital Signs Vital Signs: 08/06/21 13:26 Temperature 96.6 F L Temperature Source Temporal Blood Pressure 109/71 Blood Pressure Mean 83 Blood Pressure Source Monitor Physical Exam Const alert, oriented x3 and no apparent distress General Appearance: frail Orientation / Consciousness: awake Nutritional Appearance: cachectic and underweight HEENT normocephalic Resp normal respiratory effort and normal air movement Effort and Inspection: able to speak in complete sentences Cardio regular rate and regular rhythm GI soft to palpation and non-tender Extremity normal capillary refill Skin Wound Narrative: Sacral ulcer is pink, into the muscle, left hip and right hip ulcers are small in diameter but tunnel to the muscle, right ischial ulcer has good granulation tissue. Neuro oriented x3 Psych mental status grossly normal and thought process normal Debridement Note Debridement Note Wound debrided: Ischial ulcer Laterality: Right Type of Debridement: Excisional debridement Anesthesia Used: 4% Lidocaine Solution Depth: Down to and including healthy tissue and in the subcutaneous layer Percentage of wound debrided: 100 Instrument Used: 3mm curette Tissue Removed: Nonviable tissue and slough Severity: Limited To Skin Breakdown Amount of bleeding with debridement: Mild Bleeding Controlled with: Pressure Patient tolerated procedure: Patient tolerated procedure well Post-Debridement Measurements and Additional Note: Post-Debridement Measurements/Treatment WC - Nurse 1 - General Ulcer Assessment Start: 08/06/21 13:26 Freq: Status: Active Protocol: ASHLEY Activity Type Activity Date Activity User E-Sign Co-Sign Detail Recorded Client Recorded Date Recorded By Document 08/06/21 13:26 AK [id number] 08/06/21 13:54 ND 08/06/21 13:26 - Today's Visit Information Type of service Follow-up Visit (Physician/ASSOCIATE PROPERTY MANAGER ) Arrival Mode Wheelchair Transfer Assistance Manual Transfer Assist (Other) sister in law Patient Identification Verified (Name & Yes ) Patient Requires Transmission-Based No Precautions Safety Precautions NA Vital Signs Temperature (97.8 F-99.1 F) 96.6 F L Temperature Source Temporal Blood Pressure (90/60-120/80) 109/71 Blood Pressure Mean 83 Source Monitor History Since Last Visit- (Skip if this is Patient's initial visit) Have you changed medications since your No last visit? Any new allergies or adverse reactions No Had a fall/change in ADL's that may No increase risk of falls Signs or symptoms of abuse and/or No neglect since last visit Have you been in the hospital since your No last visit? Has dressing in place as prescribed Yes Has compression in place as prescribed N/A Has offloadiing in place as prescribed N/A Experienced any changes in pain level or No management Left Footwear Regular Shoe Right Footwear Regular Shoe Pain Scale: 0-10 Numeric Is Patient Pain Free? Yes - Nurse 1 - General Ulcer Measurement Start: 08/06/21 13:26 Freq: Status: Active Protocol: Activity Type Activity Date Activity User E-Sign Co-Sign Detail Recorded Client Recorded Date Recorded By Document 08/06/21 13:26 ND [id number] 08/06/21 13:54 ND 08/06/21 13:26 Wound Center Nurse 1 #4 R ischium -Combined with other wound No -Current Size (cm) - Length 0.4 -Current Size (cm) - Width 0.2 -Current Size (cm) - Depth 0.2 -Total Square Cm 0.08 -Date of Last Picture (Recall this 08/06/21 field) -Photo Taken Yes -Epithelialization Small 1-33% -Tunneling No -Undermining/Tunneling No -Circular Undermining No -Change in Wound Grade/Stage No -Exudate Amt Small -Exudate Type Serosanguineous -Wound Margin Distinct, Outline Attached -Granulation Amt Small (1-33%) -Granulation Quality [place] -Slough/Fibrin Yes -Necrosis Amt Small (1-33%) -Necrotic Tissue Type Adherent Slough -Structure Exposed N/A -Texture (Cydney-wound Skin Appearance) No Abnormality, Assessed -Moisture ([place]ydney-wound Skin Appearance) No Abnormality, Assessed -Color ([place]ydney-wound Skin Appearance) No Abnormality, Assessed -Temperature ([place]yd[place]-wound Skin No Abnormality Appearance) (Pt Warm) -Tenderness on Palpation ([place]ydney-wound No Skin Appearance) -Ulcer Cleansing Soap and Water -Anesthetic Used 4% Lidocaine Solution # 3 LEFT HIP -Combined with other wound No -Current Size (cm) - Length 0.5 -Current Size (cm) - Width 1 -Current Size (cm) - Depth 0.5 -Total Square Cm 0.5 -Date of Last Picture (Recall this 08/06/21 field) -Photo Taken Yes -Epithelialization Medium 34-66% -Tunneling No -Undermining/Tunneling No -Circular Undermining No -Change in Wound Grade/Stage No -Exudate Amt Medium -Exudate Type Serosanguineous -Wound Margin Distinct, Outline Attached -Granulation Amt Small (1-33%) -Granulation Quality [place] -Slough/Fibrin Yes -Necrosis Amt Medium (34-66%) -Necrotic Tissue Type Adherent Slough -Structure Exposed N/A -Texture (Cydney-wound Skin Appearance) Assessed, Scarring -Moisture ([place]yd[place]-wound Skin Appearance) Assessed -Color ([place]yd[place]-wound Skin Appearance) No Abnormality, Assessed -Temperature ([place]-wound Skin No Abnormality Appearance) (Pt Warm) -Tenderness on Palpation ([place]yd[place]-wound No Skin Appearance) -Ulcer Cleansing Soap and Water -Foul Odor after Cleansing No -Anesthetic Used 4% Lidocaine Solution #2- R HIP -Combined with other wound No -Current Size (cm) - Length 0.3 -Current Size (cm) - Width 0.8 -Current Size (cm) - Depth 0.5 -Total Square Cm 0.24 -Date of Last Picture (Recall this 08/06/21 field) -Photo Taken Yes -Tunneling No -Undermining/Tunneling No -Circular Undermining No -Change in Wound Grade/Stage No -Exudate Amt Medium -Exudate Type Serosanguineous -Wound Margin Distinct, Outline Attached -Granulation Amt None Present (0 %) -Granulation Quality N/A -Slough/Fibrin Yes -Necrosis Amt Medium (34-66%) -Necrotic Tissue Type Adherent Slough -Structure Exposed N/A -Texture ([place]yd[place]-wound Skin Appearance) No Abnormality, Assessed -Moisture ([place]ydney-wound Skin Appearance) No Abnormality, Assessed -Color ([place]ydney-wound Skin Appearance) Assessed -Temperature ([place]ydney-wound Skin No Abnormality Appearance) (Pt Warm) -Tenderness on Palpation (Cydney-wound No Skin Appearance) -Ulcer Cleansing Soap and Water -Foul Odor after Cleansing No -Anesthetic Used 4% Lidocaine Solution #1 Sacral -Combined with other wound No -Current Size (cm) - Length 3.2 -Current Size (cm) - Width 2.3 -Current Size (cm) - Depth 1.1 -Total Square Cm 7.36 -Date of Last Picture (Recall this 08/06/21 field) -Photo Taken Yes -Tunneling No -Undermining/Tunneling No -Circular Undermining Yes -Exudate Amt Medium -Exudate Type Serosanguineous -Wound Margin Distinct, Outline Attached -Granulation Amt Small (1-33%) -Granulation Quality [place] -Slough/Fibrin Yes -Necrosis Amt Large (67-100%) -Necrotic Tissue Type Adherent Slough -Texture (Cydney-wound Skin Appearance) Assessed, Scarring -Moisture ([place]ydney-wound Skin Appearance) No Abnormality, Assessed -Color ([place]ydney-wound Skin Appearance) No Abnormality, Assessed -Temperature ([place]yd[place]-wound Skin No Abnormality Appearance) (Pt Warm) -Tenderness on Palpation ([place]ydney-wound No Skin Appearance) -Ulcer Cleansing Soap and Water -Foul Odor after Cleansing Yes -Anesthetic Used 4% Lidocaine Solution WC - Nurse 2 - General Ulcer CM Notes Start: 08/06/21 13:26 Freq: Status: Active Protocol: Activity Type Activity Date Activity User E-Sign Co-Sign Detail Recorded Client Recorded Date Recorded By Document 08/06/21 14:07 JOANNA [id number] 08/06/21 14:24 JOANNA 08/06/21 14:07 Wound Center Nurse 2 #4 R ischium -Time 14:15 -Correct Patient Yes -Correct Side, Site, Position Yes -Correct Procedure Yes -Procedure Performed Yes -Type of Procedure Debridement -Clinical Debridement Subcutaneous -Tissue Removed Subcutaneous -Post Debridement (cm) - Length 0.5 -Post Debridement (cm) - Width 0.5 -Post Debridement (cm) - Depth 0.1 -Total Square (Post) (cm) 0.25 -Area of Debridement (cm) - Length 0.5 -Area of Debridement (cm) - Width 0.5 -Total Square (Area) (cm) 0.25 -Tunneling No -Undermining/Tunneling No -Circular Undermining No -Wound/Ulcer Outcome Not Healed -Ulcer Cleansing Rinsed/ Irrigated with Saline -Foul Odor after Cleansing No -Bioengineered Tissue No -Bleeding Controlled with Pressure -Treatment Response Procedure Tolerated Well -Offloading No -Assistive Device(s) Wheelchair -Pressure Reduction Wheelchair cushion -Debridement - Subq, 1st 20sq cm Yes -Debridement - Muscle / Fascia, 1st No 20sq cm # 3 LEFT HIP -Time 14:10 -Correct Patient Yes -Correct Side, Site, Position Yes -Correct Procedure Yes -Procedure Performed Yes -Type of Procedure Debridement -Clinical Debridement Muscle / Fascia -Tissue Removed Muscle -Post Debridement (cm) - Length 1.2 -Post Debridement (cm) - Width 0.8 -Post Debridement (cm) - Depth 0.6 -Total Square (Post) (cm) 0.96 -Area of Debridement (cm) - Length 1.2 -Area of Debridement (cm) - Width 0.8 -Total Square (Area) (cm) 0.96 -Tunneling No -Undermining/Tunneling No -Circular Undermining No -Wound/Ulcer Outcome Not Healed -Ulcer Cleansing Rinsed/ Irrigated with Saline -Foul Odor after Cleansing No -Bioengineered Tissue No -Bleeding Controlled with Pressure -Treatment Response Procedure Tolerated Well -Offloading No -Pressure Reduction Wheelchair cushion -Debridement - Muscle / Fascia, 1st No 20sq cm #2- R HIP -Time 14:16 -Correct Patient Yes -Correct Side, Site, Position Yes -Correct Procedure Yes -Procedure Performed Yes -Type of Procedure Debridement -Clinical Debridement Muscle / Fascia -Tissue Removed Muscle,Fascia -Post Debridement (cm) - Length 0.9 -Post Debridement (cm) - Width 0.5 -Post Debridement (cm) - Depth 0.5 -Total Square (Post) (cm) 0.45 -Area of Debridement (cm) - Length 0.9 -Area of Debridement (cm) - Width 0.5 -Total Square (Area) (cm) 0.45 -Tunneling No -Undermining/Tunneling No -Circular Undermining No -Wound/Ulcer Outcome Not Healed -Ulcer Cleansing Rinsed/ Irrigated with Saline -Foul Odor after Cleansing No -Bioengineered Tissue No -Bleeding Controlled with Pressure -Treatment Response Procedure Tolerated Well -Offloading No -Debridement - Muscle / Fascia, 1st No 20sq cm #1 Sacral -Time 14:17 -Correct Patient Yes -Correct Side, Site, Position Yes -Correct Procedure Yes -Procedure Performed Yes -Type of Procedure Debridement -Clinical Debridement Muscle / Fascia -Tissue Removed Muscle,Fascia -Post Debridement (cm) - Length 3.5 -Post Debridement (cm) - Width 3.5 -Post Debridement (cm) - Depth 1.2 -Total Square (Post) (cm) 12.25 -Area of Debridement (cm) - Length 3.5 -Area of Debridement (cm) - Width 3.5 -Total Square (Area) (cm) 12.25 -Tunneling No -Undermining/Tunneling No -Circular Undermining No -Wound/Ulcer Outcome Not Healed -Ulcer Cleansing Rinsed/ Irrigated with Saline -Foul Odor after Cleansing No -Bioengineered Tissue No -Bleeding Controlled with Pressure -Treatment Response Procedure Tolerated Well -Offloading No -Pressure Reduction Wheelchair cushion -Debridement - Muscle / Fascia, 1st Yes 20sq cm Pain Scale: 0-10 Numeric Is Patient Pain Free? Yes WC - Nurse 3 - General Ulcer D/C NN Start: 08/06/21 13:26 Freq: Status: Active Protocol: Activity Type Activity Date Activity User E-Sign Co-Sign Detail Recorded Client Recorded Date Recorded By Document 08/06/21 14:48 [facility] [id number] 08/06/21 14:50 [facility] 08/06/21 14:48 Wound Care Nurse 3 #4 R ischium -Ulcer Cleansing Rinsed/ Irrigated with Saline -Foul Odor after Cleansing No -Primary Dressing Applied Aquacel AG 4x4 -Other Dressing DRSG PER [place] [employer] -Primary Dressing Covered/Secured with Secured with Tape,Other -Other Covering ABD -Aquacel AG 4x4 1 # 3 LEFT HIP -Ulcer Cleansing Rinsed/ Irrigated with Saline -Foul Odor after Cleansing No -Primary Dressing Applied Aquacel AG 4x4 -Other Dressing DRSG PER [place] [employer] -Primary Dressing Covered/Secured with Secured with Tape,Other -Other Covering ABD -Aquacel AG 4x4 0 #2- R HIP -Ulcer Cleansing Rinsed/ Irrigated with Saline -Foul Odor after Cleansing No -Primary Dressing Applied Aquacel AG 4x4 -Other Dressing DRSG PER [place] [employer] -Primary Dressing Covered/Secured with Secured with Tape,Other -Other Covering ABD -Aquacel AG 4x4 0 #1 Sacral -Ulcer Cleansing Rinsed/ Irrigated with Saline -Foul Odor after Cleansing No -Primary Dressing Applied Aquacel AG 4x4 -Other Dressing DRSG PER [place] [employer] -Primary Dressing Covered/Secured with Secured with Tape,Other -Other Covering ABD -Aquacel AG 4x4 0 Treatment Response Procedure Tolerated Well Pain Scale: 0-10 Numeric Is Patient Pain Free? Yes WC - Visit Discharge Discharge Condition Stable Ambulatory Status Wheelchair Transportation Private Auto Accompanied by SISTER IN LAW Facility Type Home Health Additional Wound Wound debrided: Hip ulcer Laterality: Left Wound Grade/Stage: Stage IV Type of Debridement: Excisional debridement Anesthesia Used: 4% Lidocaine Solution Depth: Down to and including healthy tissue, in the subcutaneous layer and to muscle Percentage of wound debrided: 100 Instrument Used: 3mm curette Tissue Removed: Nonviable tissue and slough Severity: Fat Layer Exposed Amount of bleeding with debridement: Mild Bleeding Controlled with: Pressure and Compression and gauze Patient tolerated procedure: Patient tolerated procedure well Additional Wound Wound debrided: Hip ulcer Laterality: Right Wound Grade/Stage: Stage IV Type of Debridement: Excisional debridement Anesthesia Used: 4% Lidocaine Solution Depth: Down to and including healthy tissue, in the subcutaneous layer and to muscle Percentage of wound debrided: 100 Instrument Used: 3mm curette Tissue Removed: Nonviable tissue and slough Severity: Fat Layer Exposed Amount of bleeding with debridement: Mild Bleeding Controlled with: Pressure Additional Wound Wound debrided: Sacral ulcer Laterality: Not Applicable Wound Grade/Stage: Stage IV Type of Debridement: Excisional debridement Anesthesia Used: 4% Lidocaine Solution Depth: Down to and including healthy tissue, in the subcutaneous layer and to muscle Percentage of wound debrided: 100 Instrument Used: 5mm curette Tissue Removed: Nonviable tissue and slough into the muscle. Severity: Fat Layer Exposed Bleeding Controlled with: Pressure Patient tolerated procedure: Patient tolerated procedure well Charges/Coding Visit Charges Office Visits / Consults: 54580 OV L4 Est (25 modifier) Procedures Integumentary [id number]: [id number] Natalia musc/fascia 20 sq cm/< (left hip ulcer, right hip ulcer and sacral ulcer) Multi Select Codes Integumentary Integumentary CPT Codes: 89940 Natalia subq tissue 20 sq cm/< (right ischial ulcer) Assessment/Plan Assessment/Plan (1) Pressure injury of sacral region, stage 4: CODE(S): L89.154 - Pressure ulcer of sacral region, stage 4 (2) Pressure injury of left hip, stage 4: CODE(S): L89.224 - Pressure ulcer of left hip, stage 4 (3) Pressure injury of right hip, stage 4: CODE(S): L89.214 - Pressure ulcer of right hip, stage 4 (4) Pressure ulcer of right ischium: CODE(S): L89.319 - Pressure ulcer of right buttock, unspecified stage QUALIFIERS: Pressure injury stage: stage 2 Qualified Code(s): L89.312 - Pressure ulcer of right buttock, stage 2 (5) Multiple sclerosis: CODE(S): G35 - Multiple sclerosis (6) History of left breast cancer: CODE(S): Z85.3 - Personal history of malignant neoplasm of breast (7) Debility: CODE(S): R53.81 - Other malaise (8) Muscle spasm: CODE(S): M62.838 - Other muscle spasm (9) Weakness: CODE(S): R53.1 - Weakness PLAN: Patient was seen and evaluated at the wound healing center today. A debridement was performed as previously documented. Patient is wheelchair bound and does not off load during the day. She often is in her wheel chair for over 12 hours. Will consult palliative care to evaluate her to see if she qualifies for any services that maybe able to help her with off loading. Wound care - Aquacel-Ag covered with gauze to the base of all the ulcers and cover with gauze/ABD daily and as needed. She had a pain pump placed for muscle spasms on 08/02/21. She is experiencing double vision since this was placed. Instructed her to notify her pain management person about her vision changes. She is also on Cephalexin for 10 days since the the pain pump was placed. She has a kaye catheter in and has a recent hospitalization for UTI. Encouraged increased fluids and protein intake. Her MS is managed by Dr. Rivera at the [facility]. She recently has a wound culture on 07/16/32, while she was hospitalized, which was positive for E. coli, Enterococcus faecalis, Corynebacterium striatum and Bacteroides fragilis. She was started on Augmentin, but she stopped it because it caused her severe diarrhea. She will follow up in 2 weeks. She is to call or come in sooner if she develops any problems.
== END 2021-08-13 23:59 | disposition home or self-care (01) ==
LOC: WC 13:30
PROVIDERS: PCP Family Medicine; Referring Provider Internal Medicine; Visit Provider Nurse Practitioner Family
DX: L89.154 Pressure ulcer of sacral region, stage 4 (principal); L89.214 Pressure ulcer of right hip, stage 4; L89.224 Pressure ulcer of left hip, stage 4; G35 Multiple sclerosis; M62.838 Other muscle spasm; Z79.810 Long term (current) use of selective estrogen receptor modulators (SERMs); Z79.899 Other long term (current) drug therapy; Z99.3 Dependence on wheelchair; Z87.891 Personal history of nicotine dependence; Z85.3 Personal history of malignant neoplasm of breast
CPT/HCPCS: 11042; 11043

== ENCOUNTER 2021-09-01 14:47 | Outpatient (RCR) | payer OTHER, SELFPAY ==
[2018-02-01 11:47] VITALS: BMI 15.0
[2021-09-01 14:56] LABS: Color, Urine Yellow (Yellow); Glucose, Dipstick Normal (Normal); Ketone-Dipstick 50 mg/dl (Negative); Leukocyte Esterase-Dipstick 500 /ul (Negative); Nitrite-Dipstick Positive (Negative); Occult Blood-Urine 50 /ul (Negative); Protein-Dipstick 30 mg/dl (Negative); Urine Bilirubin Dipstick Negative (Negative); Urine Clarity Clear (Clear); Urine Urobilinogen Normal (Normal)
== END 2021-09-12 23:59 ==
LOC: HHLAB 14:47
PROVIDERS: PCP Family Medicine; Referring Provider Family Medicine; Visit Provider Family Medicine
DX: L89.154 Pressure ulcer of sacral region, stage 4 (principal); L89.214 Pressure ulcer of right hip, stage 4
CPT/HCPCS: 81002; 87077; 87086; 87088; 87186

== ENCOUNTER 2021-09-02 13:45 | Outpatient (RCR) | payer OTHER, SELFPAY ==
[2018-02-01 11:47] VITALS: BMI 15.0
[2021-08-14 00:27] VITALS: BP 109/71; PULSE 78; RESP 18; TEMP 35.9
[2021-08-20 08:43] VITALS: BP 104/65; PULSE 64; RESP 16; TEMP 36.6
--- NOTE | 2021-08-20 18:53 | HP.PCM_ITS ---
History of Present Illness Date of Service: 08/20/21 Chief Complaint: Nonhealing sacral ulcer, stage IV; pressure injuries to b ilateral hips History of Wound: Ms. Byrnes is a 55-year-old who [facility] to a chronic, nonhealing stage IV sacral pressure ulcer, and nonhealing stage IV pressure ulcers to her bilateral hips. She has a history of multiple sclerosis and has been wheelchair-bound for about 16 years. She has been seen by this wound center in the past, and was referred to Dr. Bond at [facility] for surgical intervention to her wounds in 2020. She states due to insurance changes she is no longer able to see to [facility], and her management has resumed at our facility. She had a recent hospitalization from 07/12/21 - 07/18/21 for UTI. A sacral wound culture was obtained on 07/16/21 which was positive for E. coli, Enterococcus faecalis, Corynebacterium striatum and Bacteroides fragilis. She was started on Augmentin on 07/30/21, which was sensitive to all the bacterial growth, but she did not tolerate it because it caused her severe diarrhea, therefore she stopped taking it. She had an Intrathecal Baclofen Pain pump placed 08/02/21. She is currently on Keflex for that. She was on wound VACs applied to both her left and right hips at 125 mmHg being changed 3 times a week by home health services, and her sacral wound was being treated with Aquacel Ag and being changed 3 times a week as well. She states her appetite is good. She is drinking Leobardo and a protein shake daily. [facility] Medical History Breast cancer Chronic indwelling Kaye catheter Former smoker History of breast cancer History of edema Marijuana use Multiple sclerosis PONV (postoperative nausea and vomiting) Post-menopausal Pressure injury of left hip, stage 4 Pressure injury of left hip, unstageable Pressure injury of right hip, stage 2 Pressure injury of right hip, stage 4 Pressure injury of sacral region, stage 4 Screening for malignant neoplasm of breast Seasonal allergies Uses wheelchair Wears glasses Home Medications baclofen 10 mg tablet 20 mg PO Q4H 02/28/17 [History Last Taken 08/02/21 03:00] cholecalciferol (vitamin D3) 5,000 unit PO DAILY 10/09/17 [History Last Taken 07/12/21] dalfampridine 10 mg PO BID PRN PRN 03/24/18 [History Last Taken 07/19/20] Metamucil Fiber Singles 1 packet PO DAILY 07/23/20 [History Last Taken 07/12/21] nitrofurantoin macrocrystal 25 mg capsule 50 mg PO QHS 11/06/20 [History Last Taken 07/12/21] tamoxifen 20 mg tablet 20 mg PO DAILY #90 tab 06/24/21 [Rx Last Taken Unknown] ascorbic acid (vitamin C) 1 g PO DAILY 07/12/21 [History Last Taken 07/12/21] docusate sodium [Colace] 100 mg PO QODAY 07/12/21 [History Last Taken 07/11/21] zinc 50 mg PO DAILY 07/12/21 [History Last Taken 07/12/21] Lactobac 40-Bifido 3-S.thermop [Probiotic] 1 cap PO DAILY 07/30/21 [History Last Taken Unknown] Marijuana 3 drp PO/SL TID 07/30/21 [History Last Taken Unknown] amoxicillin-pot clavulanate 1 tab PO Q12H 14 Days #28 tab 07/30/21 [Rx Last Taken Unknown] Allergy/AdvReac Type Severity Reaction Status Date / Time ciprofloxacin Allergy Mild Other Verified 07/30/21 08:03 Family History Aunt Breast cancer Mother Diabetes Surgical History h/o tonsillectomy History of bilateral oophorectomy S/P left mastectomy (~10/12/17) Social History household members: spouse Smoking Status: Former smoker alcohol intake: never Vital Signs Vital Signs Vital Signs: 08/20/21 08:43 Temperature 97.8 F Temperature Source Temporal Pulse Rate 64 Respiratory Rate 16 Blood Pressure 104/65 Blood Pressure Mean 78 Blood Pressure Source Monitor Blood Pressure Position Sitting Blood Pressure Location Right Arm Physical Exam Const alert, oriented x3 and no apparent distress Constitutional Narrative: The patient is frail and weak. She appears cachectic and underweight. She is observed lying motionless on the exam table. General Appearance: cooperative, comfortable and ill appearing Orientation / Consciousness: awake, oriented to person, oriented to place and oriented to time HEENT normocephalic and head/scalp atraumatic Head and Scalp: normal to inspection, normocephalic and atraumatic External Ear: external ears normal Eyes PERRL and EOMs intact bilaterally General Eye: normal appearance of both eyes Resp normal respiratory effort, normal air movement, no retractions and no use of accessory muscles Effort and Inspection: able to speak in complete sentences Extremity no calf tenderness Extremity Narrative: Extremities are atrophic and devoid of significant motor function. General Extremity: Negative for clubbing or cyanosis Skin Wound Narrative: The sacral pressure ulceration is pink and generally healthy in appearance. There is a moderate amount of bioburden. There is no sign of infection or cellulitis. The ulceration appears to extend into underlying muscle there are also pressure ulcerations on each hip, small in diameter, though with tunneling. The base of the ulcers appeared generally pink. There is no obvious evidence of infection. Dimensions of the ulcerations are documented elsewhere. Neuro oriented x3 and CN's II-XII intact bilaterally Sensorium / Orientation: awake, alert, oriented to person, oriented to place and oriented to time Psych Appearance: grossly normal and appropriate Attitude: calm Activity / Motor Behavior: appropriate eye contact Speech: normal speech Mood & Affect: euthymic mood Thought Process: normal thought process Thought Content: normal thought content Attention / Concentration: attention grossly intact Debridement Note Debridement Note Wound debrided: Sacral pressure ulceration Laterality: Not Applicable Wound Grade/Stage: Stage IV Type of Debridement: Excisional debridement Anesthesia Used: 5% Lidocaine Gel Depth: Down to and including healthy tissue, in the subcutaneous layer and to muscle Percentage of wound debrided: 100 Instrument Used: 5mm curette Tissue Removed: Bioburden and nonviable tissue Severity: Fat Layer Exposed Amount of bleeding with debridement: Mild Bleeding Controlled with: Compression and gauze Patient tolerated procedure: Patient tolerated procedure well Post-Debridement Measurements and Additional Note: Post-Debridement Measurements/Treatment REA - Nurse 1 - General Ulcer Assessment Start: 08/20/21 08:43 Freq: Status: Active Protocol: ASHLEY Activity Type Activity Date Activity User E-Sign Co-Sign Detail Recorded Client Recorded Date Recorded By Document 08/20/21 08:43 ML [id number] 08/20/21 08:48 ML 08/20/21 08:43 WC - Today's Visit Information Type of service Follow-up Visit (Physician/LAB INTERN ) Arrival Mode Wheelchair Transfer Assistance None Patient Identification Verified (Name & Yes ) Patient Requires Transmission-Based No Precautions Safety Precautions NA Vital Signs Temperature (97.8 F-99.1 F) 97.8 F Temperature Source Temporal Pulse Rate (60-100) 64 Pulse Location Monitor Respiratory Rate (12-18) 16 Respiratory rate source Observation Blood Pressure (90/60-120/80) 104/65 Blood Pressure Mean 78 Source Monitor Position Sitting Blood Pressure Location Right Arm History Since Last Visit- (Skip if this is Patient's initial visit) Have you changed medications since your No last visit? Any new allergies or adverse reactions No Had a fall/change in ADL's that may No increase risk of falls Signs or symptoms of abuse and/or No neglect since last visit Have you been in the hospital since your No last visit? Has dressing in place as prescribed Yes Has compression in place as prescribed Yes Has offloadiing in place as prescribed Yes Experienced any changes in pain level or No management Left Footwear No Footwear Right Footwear No Footwear Pain Scale: 0-10 Numeric Is Patient Pain Free? Yes WC - Nurse 1 - General Ulcer Measurement Start: 08/20/21 08:43 Freq: Status: Active Protocol: Activity Type Activity Date Activity User E-Sign Co-Sign Detail Recorded Client Recorded Date Recorded By Document 08/20/21 08:43 ML [id number] 08/20/21 08:48 ML 08/20/21 08:43 Wound Center Nurse 1 #4 R ischium -Current Size (cm) - Length 0.5 -Current Size (cm) - Width 0.3 -Current Size (cm) - Depth 0.1 -Total Square Cm 0.15 -Exudate Amt Small -Exudate Type Serous -Wound Margin Distinct, Outline Attached -Granulation Amt Small (1-33%) -Slough/Fibrin Yes -Necrosis Amt Small (1-33%) -Necrotic Tissue Type Adherent Slough -Texture (Cydney-wound Skin Appearance) Assessed -Moisture (Cydney-wound Skin Appearance) Assessed -Color (Cydney-wound Skin Appearance) Assessed -Temperature (Cydney-wound Skin No Abnormality Appearance) (Pt Warm) -Tenderness on Palpation (Cydney-wound No Skin Appearance) -Ulcer Cleansing Rinsed/ Irrigated with Saline -Foul Odor after Cleansing No -Anesthetic Used 5% Lidocaine Gel # 3 LEFT HIP -Current Size (cm) - Length 0.3 -Current Size (cm) - Width 0.3 -Current Size (cm) - Depth 0.2 -Total Square Cm 0.09 -Exudate Amt Small -Exudate Type Purulent -Wound Margin Distinct, Outline Attached -Granulation Amt Small (1-33%) -Necrosis Amt Small (1-33%) -Necrotic Tissue Type Adherent Slough -Texture (Cydney-wound Skin Appearance) Assessed -Moisture (Cydney-wound Skin Appearance) Assessed -Color (Cydney-wound Skin Appearance) Assessed -Temperature (Cydney-wound Skin No Abnormality Appearance) (Pt Warm) -Tenderness on Palpation (Cydney-wound No Skin Appearance) -Ulcer Cleansing Rinsed/ Irrigated with Saline -Foul Odor after Cleansing No -Anesthetic Used 5% Lidocaine Gel #1 Sacral -Current Size (cm) - Length 3 -Current Size (cm) - Width 2.5 -Current Size (cm) - Depth 4 -Total Square Cm 7.5 -Epithelialization Medium 34-66% -Exudate Amt Small -Exudate Type Serous -Wound Margin Distinct, Outline Attached -Granulation Amt Small (1-33%) -Slough/Fibrin Yes -Necrosis Amt Small (1-33%) -Texture (Cydney-wound Skin Appearance) Assessed -Moisture (Cydney-wound Skin Appearance) Assessed -Color (Cydney-wound Skin Appearance) Assessed -Temperature (Cydney-wound Skin No Abnormality Appearance) (Pt Warm) -Tenderness on Palpation (Cydney-wound No Skin Appearance) -Ulcer Cleansing Rinsed/ Irrigated with Saline -Foul Odor after Cleansing Yes -Anesthetic Used 5% Lidocaine Gel WC - Nurse 2 - General Ulcer CM Notes Start: 08/20/21 08:43 Freq: Status: Active Protocol: Activity Type Activity Date Activity User E-Sign Co-Sign Detail Recorded Client Recorded Date Recorded By Document 08/20/21 09:11 RAFAEL [id number] 08/20/21 09:14 PL 08/20/21 09:11 Wound Center Nurse 2 #4 R ischium -Time 08:57 -Correct Patient Yes -Correct Side, Site, Position Yes -Correct Procedure Yes -Procedure Performed Yes -Type of Procedure Debridement -Clinical Debridement Subcutaneous -Tissue Removed Subcutaneous -Post Debridement (cm) - Length 0.5 -Post Debridement (cm) - Width 0.3 -Post Debridement (cm) - Depth 0.1 -Total Square (Post) (cm) 0.15 -Area of Debridement (cm) - Length 0.5 -Area of Debridement (cm) - Width 0.3 -Total Square (Area) (cm) 0.15 -Tunneling No -Undermining/Tunneling No -Circular Undermining No -Wound/Ulcer Outcome Not Healed -Ulcer Cleansing Rinsed/ Irrigated with Saline -Foul Odor after Cleansing No -Bioengineered Tissue No -Bleeding Controlled with Pressure -Treatment Response Procedure Tolerated Well -Debridement - Subq, 1st 20sq cm No # 3 LEFT HIP -Time 08:57 -Correct Patient Yes -Correct Side, Site, Position Yes -Correct Procedure Yes -Procedure Performed Yes -Type of Procedure Debridement -Clinical Debridement Subcutaneous -Tissue Removed Subcutaneous -Post Debridement (cm) - Length 0.3 -Post Debridement (cm) - Width 0.3 -Post Debridement (cm) - Depth 0.2 -Total Square (Post) (cm) 0.09 -Area of Debridement (cm) - Length 0.3 -Area of Debridement (cm) - Width 0.3 -Total Square (Area) (cm) 0.09 -Tunneling No -Undermining/Tunneling No -Circular Undermining No -Wound/Ulcer Outcome Not Healed -Ulcer Cleansing Rinsed/ Irrigated with Saline -Foul Odor after Cleansing No -Bioengineered Tissue No -Bleeding Controlled with Pressure -Treatment Response Procedure Tolerated Well -Debridement - Subq, 1st 20sq cm No #1 Sacral -Time 08:57 -Correct Patient Yes -Correct Side, Site, Position Yes -Correct Procedure Yes -Procedure Performed Yes -Type of Procedure Debridement -Clinical Debridement Subcutaneous -Tissue Removed Subcutaneous -Post Debridement (cm) - Length 3.0 -Post Debridement (cm) - Width 2.5 -Post Debridement (cm) - Depth 4.0 -Total Square (Post) (cm) 7.50 -Area of Debridement (cm) - Length 3.0 -Area of Debridement (cm) - Width 2.5 -Total Square (Area) (cm) 7.50 -Tunneling No -Undermining/Tunneling No -Circular Undermining No -Wound/Ulcer Outcome Not Healed -Ulcer Cleansing Rinsed/ Irrigated with Saline -Foul Odor after Cleansing No -Bioengineered Tissue No -Bleeding Controlled with Pressure -Treatment Response Procedure Tolerated Well -Debridement - Subq, 1st 20sq cm Yes Pain Scale: 0-10 Numeric Is Patient Pain Free? Yes - Nurse 3 - General Ulcer D/C NN Start: 08/20/21 08:43 Freq: Status: Active Protocol: Activity Type Activity Date Activity User E-Sign Co-Sign Detail Recorded Client Recorded Date Recorded By Document 08/20/21 09:14 ML [id number] 08/20/21 09:16 ML 08/20/21 09:14 Wound Care Nurse 3 #4 R ischium -Ulcer Cleansing Rinsed/ Irrigated with Saline -Foul Odor after Cleansing No -Primary Dressing Applied Aquacel AG 4x4 -Other Dressing abd -Primary Dressing Covered/Secured with Dry Gauze, Secured with Tape -Aquacel AG 4x4 1 # 3 LEFT HIP -Ulcer Cleansing Rinsed/ Irrigated with Saline -Foul Odor after Cleansing No -Primary Dressing Applied Aquacel AG 4x4 -Primary Dressing Covered/Secured with Dry Gauze, Secured with Tape -Aquacel AG 4x4 0 #1 Sacral -Ulcer Cleansing Rinsed/ Irrigated with Saline -Foul Odor after Cleansing No -Primary Dressing Applied Aquacel AG 4x4 -Other Dressing abd -Primary Dressing Covered/Secured with Dry Gauze, Secured with Tape -Aquacel AG 4x4 0 Pain Scale: 0-10 Numeric Is Patient Pain Free? Yes - Visit Discharge Discharge Condition Stable Ambulatory Status Wheelchair Medication Reconcilliation completed & No provided to patient/care provider Clinical Summary of Care Provided Yes Additional Wound Wound debrided: Right hip pressure ulceration Laterality: Right Type of Debridement: Excisional debridement Anesthesia Used: 5% Lidocaine Gel Depth: Down to and including healthy tissue and in the subcutaneous layer Percentage of wound debrided: 100 Instrument Used: 3mm curette Tissue Removed: Bioburden and nonviable tissue Severity: Fat Layer Exposed Amount of bleeding with debridement: Mild Bleeding Controlled with: Compression and gauze Patient tolerated procedure: Patient tolerated procedure well Additional Wound Wound debrided: Left hip pressure ulceration Laterality: Left Type of Debridement: Excisional debridement Anesthesia Used: 5% Lidocaine Gel Depth: Down to and including healthy tissue and in the subcutaneous layer Percentage of wound debrided: 100 Instrument Used: 3mm curette Tissue Removed: Bioburden and nonviable tissue Severity: Fat Layer Exposed Amount of bleeding with debridement: Mild Bleeding Controlled with: Compression and gauze Patient tolerated procedure: Patient tolerated procedure well Assessment/Plan Assessment/Plan (1) Pressure injury of sacral region, stage 4: CODE(S): L89.154 - Pressure ulcer of sacral region, stage 4 (2) Pressure injury of left hip, stage 4: CODE(S): L89.224 - Pressure ulcer of left hip, stage 4 (3) Pressure injury of right hip, stage 4: CODE(S): L89.214 - Pressure ulcer of right hip, stage 4 (4) Pressure ulcer of right ischium: CODE(S): L89.319 - Pressure ulcer of right buttock, unspecified stage QUALIFIERS: Pressure injury stage: stage 2 Qualified Code(s): L89.312 - Pressure ulcer of right buttock, stage 2 (5) Breast cancer, left: CODE(S): C50.912 - Malignant neoplasm of unspecified site of left female breast QUALIFIERS: Breast location: upper outer quadrant of breast Estrogen receptor status: positive Patient sex: female Qualified Code(s): C50.412 - Malignant neoplasm of upper-outer quadrant of left female breast; Z17.0 - Estrogen receptor positive status [ER+] (6) Cancer phobia: CODE(S): F40.298 - Other specified phobia (7) Multiple sclerosis: CODE(S): G35 - Multiple sclerosis (8) History of left breast cancer: CODE(S): Z85.3 - Personal history of malignant neoplasm of breast (9) Constipation: CODE(S): K59.00 - Constipation, unspecified QUALIFIERS: Constipation type: slow transit constipation Qualified Code(s): K59.01 - Slow transit constipation (10) Debility: CODE(S): R53.81 - Other malaise (11) Weakness: CODE(S): R53.1 - Weakness (12) History of breast cancer: CODE(S): Z85.3 - Personal history of malignant neoplasm of breast PLAN: Patient is wheelchair bound and does not off load during the day. She often is in her wheel chair for over 12 hours. Will consult palliative care to evaluate her to see if she qualifies for any services that maybe able to help her with off loading. Wound care -we will continue Aquacel-Ag covered with gauze to the base of all the ulcers and cover with gauze/ABD daily and as needed. She had a pain pump placed for muscle spasms on 08/02/21. She was on Cephalexin for 10 days since the the pain pump was placed. She has a kaye catheter in and has a recent hospitalization for UTI. Encouraged increased fluids and protein intake. Her MS is managed by Dr. Rivera at the [facility]. She recently has a wound culture on 07/16/32, while she was hospitalized, which was positive for E. coli, Enterococcus faecalis, Corynebacterium striatum and Bacteroides fragilis. She was started on Augmentin, but she stopped it because it caused her severe diarrhea. She will follow up in 2 weeks. She is to call or come in sooner if she develops any problems. Total time: 32 minutes
[2021-09-02 13:45] VITALS: BP 114/66; PULSE 73; RESP 18; TEMP 36.9
--- NOTE | 2021-09-02 16:34 | PN.PCM_ITS ---
History of Present Illness Date of Service: 09/02/21 Chief Complaint: Nonhealing sacral ulcer, stage IV; pressure injuries to b ilateral hips History of Wound: Ms. Byrnes is a 56-year-old who [facility] due to a chronic, non-healing stage IV sacral pressure ulcer, and non healing stage IV pressure ulcers to her bilateral hips. She has a history of multiple sclerosis and has been wheelchair-bound for about 16 years. She has been seen by this wound center in the past, and was referred to Dr. Bond at [facility] for surgical intervention to her wounds in 2020. She states due to insurance changes she is no longer able to see to [facility], and her management has resumed at our facility. She had a recent hospitalization from 07/12/21 - 07/18/21 for UTI. A sacral wound culture was obtained on 07/16/21 which was positive for E. coli, Enterococcus faecalis, Corynebacterium striatum and Bacteroides fragilis. She was started on Augmentin on 07/30/21, which was sensitive to all the bacterial growth, but she did not tolerate it because it caused her severe diarrhea, therefore she stopped taking it. She had an Intrathecal Baclofen Pain pump placed 08/02/21. She is currently on Keflex for that. Wound care - Aquacel-Ag to her left and right hips and her sacral ulcer daily after washing with soap and water. Place barrier cream on left hip and right ischial area that had a pressure sore and home health has been placing silicone boarder dressings over these areas. She states her appetite is good. She is drinking Leobardo and a protein shake daily. Progress of Wound: Sacral ulcer and right and left hip ulcers are stable. The new area on the right ischial and left hip have improved and need moisturized. Objective Data Objective Data Vital Signs: Vital Signs Temp Pulse Resp BP 98.4 F 73 18 114/66 09/02/21 13:45 09/02/21 13:45 09/02/21 13:45 09/02/21 13:45 Charges/Coding Procedures Integumentary 111xxx-113xx: 10887 Natalia musc/fascia 20 sq cm/< Physical Exam Const alert and oriented x3 General Appearance: cooperative HEENT normocephalic Resp normal respiratory effort Effort and Inspection: able to speak in complete sentences Cardio regular rate Extremity normal capillary refill Skin Wound Narrative: Stage IV ulcer to left hip, right hip and sacral area. These ulcers are stable. She has a healed pressure area on her left hip and right ischial area. Psych affect normal Debridement Note Debridement Note Wound debrided: Sacral ulcer Wound Grade/Stage: Stage IV Type of Debridement: Excisional debridement Anesthesia Used: 5% Lidocaine Gel Depth: Down to and including healthy tissue, in the subcutaneous layer and to muscle Percentage of wound debrided: 100 Instrument Used: 5mm curette Tissue Removed: Non viable tissue and slough, into the muscle Severity: Fat Layer Exposed Amount of bleeding with debridement: Mild Bleeding Controlled with: Pressure and Compression and gauze Patient tolerated procedure: Patient tolerated procedure well Post-Debridement Measurements and Additional Note: Post-Debridement Measurements/Treatment - Nurse 1 - General Ulcer Assessment Start: 08/20/21 08:43 Freq: Status: Active Protocol: ASHLEY Activity Type Activity Date Activity User E-sign Co-sign Detail Recorded Client Recorded Date Recorded By Document 08/20/21 08:43 ML [id number] 08/20/21 08:48 ML Document 09/02/21 13:45 DL [id number] 09/02/21 14:00 DL 08/20/21 09/02/21 08:43 13:45 - Today's Visit Information Type of service Follow-up Visit Follow-up Visit (Physician/OPEN SOURCE DEVELOPER (Physician/OPEN SOURCE DEVELOPER ) ) Arrival Mode Wheelchair Ambulatory,Cane ,Wheelchair Transfer Assistance None Manual Transfer Assist (Other) x2 Patient Identification Verified (Name & Yes Yes ) Patient Requires Transmission-Based No No Precautions Safety Precautions NA Vital Signs Temperature (97.8 F-99.1 F) 97.8 F 98.4 F Temperature Source Temporal Temporal Pulse Rate (60-100) 64 73 Pulse Location Monitor Monitor Respiratory Rate (12-18) 16 18 Respiratory rate source Observation Observation Blood Pressure (90/60-120/80) 104/65 114/66 Blood Pressure Mean (mm Hg) 78 82 Source Monitor Monitor Position Sitting Blood Pressure Location Right Arm History Since Last Visit- (Skip if this is Patient's initial visit) Have you changed medications since your No No last visit? Any new allergies or adverse reactions No No Had a fall/change in ADL's that may No No increase risk of falls Signs or symptoms of abuse and/or No No neglect since last visit Have you been in the hospital since your No No last visit? Has dressing in place as prescribed Yes Yes Has compression in place as prescribed Yes Has offloadiing in place as prescribed Yes Yes Experienced any changes in pain level or No No management Left Footwear No Footwear Right Footwear No Footwear Pain Scale: 0-10 Numeric Is Patient Pain Free? Yes Yes WC - Nurse 1 - General Ulcer Measurement Start: 08/20/21 08:43 Freq: Status: Active Protocol: Activity Type Activity Date Activity User E-sign Co-sign Detail Recorded Client Recorded Date Recorded By Document 08/20/21 08:43 ML [id number] 08/20/21 08:48 ML Document 09/02/21 13:45 DL [id number] 09/02/21 14:00 DL 08/20/21 09/02/21 08:43 13:45 Wound Center Nurse 1 #4 R ischium -Current Size (cm) - Length 0.5 0.2 -Current Size (cm) - Width 0.3 0.2 -Current Size (cm) - Depth 0.1 1 -Total Square Cm 0.15 0.04 -Photo Taken No -Exudate Amt Small Medium -Exudate Type Serous Serous -Wound Margin Distinct, Distinct, Outline Outline Attached Attached -Granulation Amt Small (1-33%) Small (1-33%) -Granulation Quality Roebling -Slough/Fibrin Yes -Necrosis Amt Small (1-33%) Small (1-33%) -Necrotic Tissue Type Adherent Slough Adherent Slough -Structure Exposed None/Limited to Skin Breakdown -Texture (Cydney-wound Skin Appearance) Assessed Scarring -Moisture (Cydney-wound Skin Appearance) Assessed No Abnormality -Color (Cydney-wound Skin Appearance) Assessed No Abnormality -Temperature (Cydney-wound Skin No Abnormality No Abnormality Appearance) (Pt Warm) (Pt Warm) -Tenderness on Palpation (Cydney-wound No No Skin Appearance) -Ulcer Cleansing Rinsed/ Rinsed/ Irrigated with Irrigated with Saline Saline -Foul Odor after Cleansing No No -Anesthetic Used 5% Lidocaine 5% Lidocaine Gel Gel # 3 LEFT HIP -Current Size (cm) - Length 0.3 0.4 -Current Size (cm) - Width 0.3 0.4 -Current Size (cm) - Depth 0.2 0.4 -Total Square Cm 0.09 0.16 -Photo Taken No -Exudate Amt Small Small -Exudate Type Purulent -Wound Margin Distinct, Distinct, Outline Outline Attached Attached -Granulation Amt Small (1-33%) Small (1-33%) -Granulation Quality Roebling -Necrosis Amt Small (1-33%) Small (1-33%) -Necrotic Tissue Type Adherent Slough Adherent Slough -Structure Exposed N/A -Texture (Cydney-wound Skin Appearance) Assessed Scarring -Moisture (Cydney-wound Skin Appearance) Assessed No Abnormality -Color (Cydney-wound Skin Appearance) Assessed No Abnormality -Temperature (Cydney-wound Skin No Abnormality No Abnormality Appearance) (Pt Warm) (Pt Warm) -Tenderness on Palpation (Cydney-wound No No Skin Appearance) -Ulcer Cleansing Rinsed/ Rinsed/ Irrigated with Irrigated with Saline Saline -Foul Odor after Cleansing No No -Anesthetic Used 5% Lidocaine 5% Lidocaine Gel Gel #1 Sacral -Current Size (cm) - Length 3 1.8 -Current Size (cm) - Width 2.5 3 -Current Size (cm) - Depth 4 0.6 -Total Square Cm 7.5 5.4 -Photo Taken No -Epithelialization Medium 34-66% -Tunneling Position (O'clock) 12 -Tunneling Distance (cm) 0.7 -Exudate Amt Small Medium -Exudate Type Serous Serosanguineous -Wound Margin Distinct, Thickened & Outline Rolled Under Attached -Granulation Amt Small (1-33%) Medium (34-66%) -Granulation Quality Pale,Roebling -Slough/Fibrin Yes -Necrosis Amt Small (1-33%) Medium (34-66%) -Necrotic Tissue Type Adherent Slough -Structure Exposed N/A -Texture (Cydney-wound Skin Appearance) Assessed Scarring -Moisture (Cydney-wound Skin Appearance) Assessed No Abnormality -Color (Cydney-wound Skin Appearance) Assessed Ecchymosis -Temperature (Cydney-wound Skin No Abnormality No Abnormality Appearance) (Pt Warm) (Pt Warm) -Tenderness on Palpation (Cydney-wound No No Skin Appearance) -Ulcer Cleansing Rinsed/ Wound Cleanser Irrigated with Saline -Foul Odor after Cleansing Yes No -Anesthetic Used 5% Lidocaine 5% Lidocaine Gel Gel WC - Nurse 2 - General Ulcer CM Notes Start: 08/20/21 08:43 Freq: Status: Active Protocol: Activity Type Activity Date Activity User E-sign Co-sign Detail Recorded Client Recorded Date Recorded By Document 08/20/21 09:11 PL [id number] 08/20/21 09:14 PL Document 09/02/21 14:12 [id number] 09/02/21 14:25 08/20/21 09/02/21 09:11 14:12 Wound Center Nurse 2 #4 R ischium -Time 08:57 14:16 -Correct Patient Yes Yes -Correct Side, Site, Position Yes Yes -Correct Procedure Yes Yes -Procedure Performed Yes Yes -Type of Procedure Debridement Debridement -Clinical Debridement Subcutaneous Muscle / Fascia -Tissue Removed Subcutaneous Muscle -Post Debridement (cm) - Length 0.5 0.8 -Post Debridement (cm) - Width 0.3 0.7 -Post Debridement (cm) - Depth 0.1 0.8 -Total Square (Post) (cm) 0.15 0.56 -Area of Debridement (cm) - Length 0.5 0.8 -Area of Debridement (cm) - Width 0.3 0.7 -Total Square (Area) (cm) 0.15 0.56 -Tunneling No No -Undermining/Tunneling No No -Circular Undermining No No -Wound/Ulcer Outcome Not Healed Not Healed -Ulcer Cleansing Rinsed/ Rinsed/ Irrigated with Irrigated with Saline Saline -Foul Odor after Cleansing No No -Bioengineered Tissue No No -Bleeding Controlled with Pressure Pressure -Treatment Response Procedure Procedure Tolerated Well Tolerated Well -Offloading No -Debridement - Subq, 1st 20sq cm No -Debridement - Muscle / Fascia, 1st No 20sq cm # 3 LEFT HIP -Time 08:57 14:15 -Correct Patient Yes Yes -Correct Side, Site, Position Yes Yes -Correct Procedure Yes Yes -Procedure Performed Yes Yes -Type of Procedure Debridement Debridement -Clinical Debridement Subcutaneous Muscle / Fascia -Tissue Removed Subcutaneous Muscle -Post Debridement (cm) - Length 0.3 0.6 -Post Debridement (cm) - Width 0.3 0.4 -Post Debridement (cm) - Depth 0.2 0.8 -Total Square (Post) (cm) 0.09 0.24 -Area of Debridement (cm) - Length 0.3 0.6 -Area of Debridement (cm) - Width 0.3 0.4 -Total Square (Area) (cm) 0.09 0.24 -Tunneling No No -Undermining/Tunneling No No -Circular Undermining No No -Wound/Ulcer Outcome Not Healed Not Healed -Ulcer Cleansing Rinsed/ Rinsed/ Irrigated with Irrigated with Saline Saline -Foul Odor after Cleansing No No -Bioengineered Tissue No No -Bleeding Controlled with Pressure Pressure -Treatment Response Procedure Procedure Tolerated Well Tolerated Well -Offloading No -Debridement - Subq, 1st 20sq cm No -Debridement - Muscle / Fascia, 1st No 20sq cm #1 Sacral -Time 08:57 14:19 -Correct Patient Yes Yes -Correct Side, Site, Position Yes Yes -Correct Procedure Yes Yes -Procedure Performed Yes Yes -Type of Procedure Debridement Debridement -Clinical Debridement Subcutaneous Muscle / Fascia -Tissue Removed Subcutaneous Muscle -Post Debridement (cm) - Length 3.0 2.2 -Post Debridement (cm) - Width 2.5 3.5 -Post Debridement (cm) - Depth 4.0 0.4 -Total Square (Post) (cm) 7.50 7.70 -Area of Debridement (cm) - Length 3.0 2.2 -Area of Debridement (cm) - Width 2.5 3.5 -Total Square (Area) (cm) 7.50 7.70 -Tunneling No No -Undermining/Tunneling No No -Circular Undermining No No -Wound/Ulcer Outcome Not Healed Not Healed -Ulcer Cleansing Rinsed/ Rinsed/ Irrigated with Irrigated with Saline Saline -Foul Odor after Cleansing No No -Bioengineered Tissue No No -Bleeding Controlled with Pressure Pressure -Treatment Response Procedure Procedure Tolerated Well Tolerated Well -Offloading No -Debridement - Subq, 1st 20sq cm Yes -Debridement - Muscle / Fascia, 1st Yes 20sq cm Pain Scale: 0-10 Numeric Is Patient Pain Free? Yes Yes WC - Nurse 3 - General Ulcer D/C NN Start: 08/20/21 08:43 Freq: Status: Active Protocol: Activity Type Activity Date Activity User E-sign Co-sign Detail Recorded Client Recorded Date Recorded By Document 08/20/21 09:14 ML [id number] 08/20/21 09:16 ML 08/20/21 09:14 Wound Care Nurse 3 #4 R ischium -Ulcer Cleansing Rinsed/ Irrigated with Saline -Foul Odor after Cleansing No -Primary Dressing Applied Aquacel AG 4x4 -Other Dressing abd -Primary Dressing Covered/Secured with Dry Gauze, Secured with Tape -Aquacel AG 4x4 1 # 3 LEFT HIP -Ulcer Cleansing Rinsed/ Irrigated with Saline -Foul Odor after Cleansing No -Primary Dressing Applied Aquacel AG 4x4 -Primary Dressing Covered/Secured with Dry Gauze, Secured with Tape -Aquacel AG 4x4 0 #1 Sacral -Ulcer Cleansing Rinsed/ Irrigated with Saline -Foul Odor after Cleansing No -Primary Dressing Applied Aquacel AG 4x4 -Other Dressing abd -Primary Dressing Covered/Secured with Dry Gauze, Secured with Tape -Aquacel AG 4x4 0 Pain Scale: 0-10 Numeric Is Patient Pain Free? Yes WC - Visit Discharge Discharge Condition Stable Ambulatory Status Wheelchair Medication Reconcilliation completed & No provided to patient/care provider Clinical Summary of Care Provided Yes Additional Wound Wound debrided: Hip ulcer Laterality: Left Wound Grade/Stage: Stage IV Type of Debridement: Excisional debridement Anesthesia Used: 4% Lidocaine Solution Depth: Down to and including healthy tissue, in the subcutaneous layer and to muscle Percentage of wound debrided: 100 Instrument Used: 3mm curette Tissue Removed: Nonviable tissue and slough Severity: Fat Layer Exposed Amount of bleeding with debridement: Mild Bleeding Controlled with: Pressure and Compression and gauze Patient tolerated procedure: Patient tolerated procedure well Additional Wound Wound debrided: Hip ulcer Laterality: Right Wound Grade/Stage: Stage IV Type of Debridement: Excisional debridement Anesthesia Used: 4% Lidocaine Solution Depth: Down to and including healthy tissue, in the subcutaneous layer and to muscle Percentage of wound debrided: 100 Instrument Used: 3mm curette Tissue Removed: Nonviable tissue and slough Severity: Fat Layer Exposed Amount of bleeding with debridement: Mild Bleeding Controlled with: Pressure Additional Wound Wound Grade/Stage: Stage IV Assessment/Plan Assessment/Plan (1) Pressure injury of sacral region, stage 4: CODE(S): L89.154 - Pressure ulcer of sacral region, stage 4 (2) Pressure injury of left hip, stage 4: CODE(S): L89.224 - Pressure ulcer of left hip, stage 4 (3) Pressure injury of right hip, stage 4: CODE(S): L89.214 - Pressure ulcer of right hip, stage 4 (4) Pressure ulcer of right ischium: CODE(S): L89.319 - Pressure ulcer of right buttock, unspecified stage QUALIFIERS: Pressure injury stage: stage 2 Qualified Code(s): L89.312 - Pressure ulcer of right buttock, stage 2 (5) Multiple sclerosis: CODE(S): G35 - Multiple sclerosis (6) History of left breast cancer: CODE(S): Z85.3 - Personal history of malignant neoplasm of breast (7) Debility: CODE(S): R53.81 - Other malaise (8) Muscle spasm: CODE(S): M62.838 - Other muscle spasm (9) Weakness: CODE(S): R53.1 - Weakness PLAN: Plan Patient was seen and evaluated at the wound healing center today. A debridement was performed as previously documented. Patient is wheelchair bound and does not off load during the day. She often is in her wheel chair for over 12 hours. Will consult palliative care to evaluate her to see if she qualifies for any services that maybe able to help her with off loading. Wound care - Aquacel-Ag covered with gauze to the base of the left and right ulcers and the sacral ulcer and cover with gauze/ABD daily and as needed. For the pressure areas on the left hip and right ischial area that are healed, massage with lotion and place a silicone gauze dressing to help prevent pressure. Stop using the donut pillow at night bcause she has a bruised area on the proximal edge of the sacral ulcer that needs to be watched closely. She had a pain pump placed for muscle spasms on 08/02/21. She is experiencing double vision since this was placed. Instructed her to notify her pain management person about her vision changes. She is also on Cephalexin for 10 days since the the pain pump was placed. She has a kaye catheter in and has a recent hospitalization for UTI. She states that her PCP, Dr. Soliz just ordered a UA and urine culture. Encouraged increased fluids and protein intake. Her MS is managed by Dr. Rivera at the [facility]. She recently has a wound culture on 07/16/32, while she was hospitalized, which was positive for E. coli, Enterococcus faecalis, Corynebacterium striatum and Bacteroides fragilis. She was started on Augmentin, but she stopped it because it caused her severe diarrhea. She will follow up in 2 weeks. She is to call or come in sooner if she develops any problems.
== END 2021-09-12 23:59 | disposition home or self-care (01) ==
LOC: WC 13:45
PROVIDERS: PCP Family Medicine; Referring Provider Internal Medicine; Visit Provider Nurse Practitioner Family
DX: L89.154 Pressure ulcer of sacral region, stage 4 (principal); L89.224 Pressure ulcer of left hip, stage 4; L89.214 Pressure ulcer of right hip, stage 4; G35 Multiple sclerosis; M62.838 Other muscle spasm; K59.01 Slow transit constipation; Z78.0 Asymptomatic menopausal state; Z79.810 Long term (current) use of selective estrogen receptor modulators (SERMs); Z99.3 Dependence on wheelchair; Z87.891 Personal history of nicotine dependence; Z85.3 Personal history of malignant neoplasm of breast
CPT/HCPCS: 11042; 11043

== ENCOUNTER 2021-09-23 13:27 | Outpatient (RCR) | payer OTHER, SELFPAY ==
[2018-02-01 11:47] VITALS: BMI 15.0
[2021-09-13 00:20] VITALS: BP 114/66; PULSE 73; RESP 18; TEMP 36.9
[2021-09-23 13:38] VITALS: BP 91/53; PULSE 73; TEMP 36.3
--- NOTE | 2021-09-23 15:05 | PN.PCM_ITS ---
History of Present Illness Date of Service: 09/23/21 Chief Complaint: Nonhealing sacral ulcer, stage IV; pressure injuries to b ilateral hips History of Wound: The patient is a 56-year-old who [facility] due to a chronic, non-healing stage IV sacral pressure ulcer, and non healing stage IV pressure ulcers to her bilateral hips. She has a history of multiple sclerosis and has been wheelchair-bound for about 16 years. She has been seen by this wound center in the past, and was referred to Dr. Bond at [facility] for surgical intervention to her wounds in 2020. She states due to insurance changes she is no longer able to see to [facility], and her management has resumed at our facility. She had a recent hospitalization from 07/12/21 - 07/18/21 for UTI. A sacral wound culture was obtained on 07/16/21 which was positive for E. coli, Enterococcus faecalis, Corynebacterium striatum and Bacteroides fragilis. She was started on Augmentin on 07/30/21, which was sensitive to all the bacterial growth, but she did not tolerate it because it caused her severe diarrhea, therefore she stopped taking it. She had an Intrathecal Baclofen Pain pump placed 08/02/21. Wound care - Aquacel-Ag to her left and right hips and her sacral ulcer cluster daily after washing with soap and water. Place barrier cream on left hip and right ischial area that had a pressure sore and home health has been placing silicone boarder dressings over these areas. She states her appetite is good. She is drinking Leobardo and a protein shake daily. Progress of Wound: Sacral ulcer is smaller and now a cluster. Bilateral hip ulcers are smaller but still have some depth to them. Objective Data Objective Data Vital Signs: Vital Signs Temp Pulse Resp BP 97.4 F L 73 18 91/53 L 09/23/21 13:38 09/23/21 13:38 09/13/21 00:20 09/23/21 13:38 Charges/Coding Addendum Addendum: 52689 for right and left hip ulcers into the muscle. Procedures Integumentary 111xxx-113xx: [id number] Natalia subq tissue 20 sq cm/< (sacral ulcer) Physical Exam Const alert and oriented x3 General Appearance: cooperative HEENT normocephalic Resp normal respiratory effort Effort and Inspection: able to speak in complete sentences Cardio regular rate Extremity normal capillary refill Skin Wound Narrative: Ulcer to sacral area is now a cluster and smaller in size. The left hip and right hip ulcers are stable but continue to have some depth to them, the cydney wound is clear. Neuro Speech: speech normal Psych affect normal Debridement Note Debridement Note Wound debrided: Sacral ulcer cluster Type of Debridement: Excisional debridement Anesthesia Used: 5% Lidocaine Gel Depth: Down to and including healthy tissue and in the subcutaneous layer Percentage of wound debrided: 100 Instrument Used: 5mm curette Tissue Removed: Non viable tissue and slough Severity: Fat Layer Exposed Amount of bleeding with debridement: Mild Bleeding Controlled with: Pressure and Compression and gauze Patient tolerated procedure: Patient tolerated procedure well Post-Debridement Measurements and Additional Note: Post-Debridement Measurements/Treatment - Nurse 1 - General Ulcer Assessment Start: 09/23/21 13:38 Freq: Status: Active Protocol: ASHLEY Activity Type Activity Date Activity User E-sign Co-sign Detail Recorded Client Recorded Date Recorded By Document 09/23/21 13:38 [id number] 09/23/21 13:51 [facility] 09/23/21 13:38 WC - Today's Visit Information Type of service Follow-up Visit (Physician/TECHNICAL STAFF ASSISTANT ) Arrival Mode Wheelchair Transfer Assistance Manual Patient Identification Verified (Name & Yes ) Vital Signs Temperature (97.8 F-99.1 F) 97.4 F L Temperature Source Temporal Pulse Rate (60-100) 73 Pulse Location Monitor Blood Pressure (90/60-120/80) 91/53 L Blood Pressure Mean (mm Hg) 65 Source Monitor Position Sitting Blood Pressure Location Right Arm History Since Last Visit- (Skip if this is Patient's initial visit) Have you changed medications since your No last visit? Any new allergies or adverse reactions No Had a fall/change in ADL's that may No increase risk of falls Signs or symptoms of abuse and/or No neglect since last visit Have you been in the hospital since your No last visit? Has dressing in place as prescribed Yes Has compression in place as prescribed N/A Has offloadiing in place as prescribed N/A Experienced any changes in pain level or No management Left Footwear Regular Shoe Right Footwear Regular Shoe Pain Scale: 0-10 Numeric Is Patient Pain Free? Yes - Nurse 1 - General Ulcer Measurement Start: 09/23/21 13:38 Freq: Status: Active Protocol: Activity Type Activity Date Activity User E-sign Co-sign Detail Recorded Client Recorded Date Recorded By Document 09/23/21 13:38 [facility] [id number] 09/23/21 13:51 [facility] 09/23/21 13:38 Wound Center Nurse 1 #4 R ischium -Wound Margin Distinct, Outline Attached -Texture (Cydney-wound Skin Appearance) Assessed, Scarring -Moisture (Cydney-wound Skin Appearance) No Abnormality, Assessed -Color (Cydney-wound Skin Appearance) No Abnormality, Assessed -Temperature (Cydney-wound Skin No Abnormality Appearance) (Pt Warm) -Tenderness on Palpation (Cydney-wound No Skin Appearance) -Ulcer Cleansing Rinsed/ Irrigated with Saline -Foul Odor after Cleansing No -Anesthetic Used 5% Lidocaine Gel # 3 LEFT HIP -Current Size (cm) - Length 0.2 -Current Size (cm) - Width 0.2 -Current Size (cm) - Depth 0.5 -Total Square Cm 0.04 -Exudate Amt Small -Exudate Type Serosanguineous -Wound Margin Distinct, Outline Attached -Granulation Amt Medium (34-66%) -Granulation Quality [place] -Necrosis Amt None Present (0 %) -Texture (Cydney-wound Skin Appearance) Assessed, Scarring -Moisture (Cydney-wound Skin Appearance) No Abnormality, Assessed -Color (Cydney-wound Skin Appearance) No Abnormality, Assessed -Temperature (Cydney-wound Skin No Abnormality Appearance) (Pt Warm) -Tenderness on Palpation (Cydney-wound No Skin Appearance) -Ulcer Cleansing Rinsed/ Irrigated with Saline -Foul Odor after Cleansing No -Anesthetic Used 5% Lidocaine Gel #2- R HIP -Current Size (cm) - Length 0.3 -Current Size (cm) - Width 0.1 -Current Size (cm) - Depth 0.6 -Total Square Cm 0.03 -Exudate Amt Small -Exudate Type Serosanguineous -Wound Margin Distinct, Outline Attached -Granulation Amt Small (1-33%) -Granulation Quality [place] -Necrosis Amt None Present (0 %) -Texture (Cydney-wound Skin Appearance) Assessed, Scarring -Moisture (Cydney-wound Skin Appearance) No Abnormality, Assessed -Color (Cydney-wound Skin Appearance) No Abnormality, Assessed -Temperature (Cydney-wound Skin No Abnormality Appearance) (Pt Warm) -Tenderness on Palpation (Cydney-wound No Skin Appearance) -Ulcer Cleansing Rinsed/ Irrigated with Saline -Foul Odor after Cleansing No -Anesthetic Used 5% Lidocaine Gel #1 Sacral cluster -Current Size (cm) - Length 1.9 -Current Size (cm) - Width 2.4 -Current Size (cm) - Depth 0.2 -Total Square Cm 4.56 -Exudate Amt Small -Exudate Type Serosanguineous -Wound Margin Distinct, Outline Attached -Granulation Amt Medium (34-66%) -Granulation Quality [place],Red -Necrosis Amt Small (1-33%) -Necrotic Tissue Type Adherent Slough -Texture (Cydney-wound Skin Appearance) Assessed, Scarring -Moisture (Cydney-wound Skin Appearance) No Abnormality, Assessed -Color (Cydney-wound Skin Appearance) No Abnormality, Assessed -Temperature (Cydney-wound Skin No Abnormality Appearance) (Pt Warm) -Tenderness on Palpation (Cydney-wound No Skin Appearance) -Ulcer Cleansing Rinsed/ Irrigated with Saline -Foul Odor after Cleansing No -Anesthetic Used 5% Lidocaine Gel WC - Nurse 2 - General Ulcer CM Notes Start: 09/23/21 13:38 Freq: Status: Active Protocol: Activity Type Activity Date Activity User E-sign Co-sign Detail Recorded Client Recorded Date Recorded By Document 09/23/21 14:03 JOANNA [id number] 09/23/21 14:12 JOANNA 09/23/21 14:03 Wound Center Nurse 2 # 3 LEFT HIP -Time 14:03 -Correct Patient Yes -Correct Side, Site, Position Yes -Correct Procedure Yes -Procedure Performed Yes -Type of Procedure Debridement -Clinical Debridement Muscle / Fascia -Tissue Removed Muscle -Post Debridement (cm) - Length 0.6 -Post Debridement (cm) - Width 0.5 -Post Debridement (cm) - Depth 0.6 -Total Square (Post) (cm) 0.30 -Area of Debridement (cm) - Length 0.6 -Area of Debridement (cm) - Width 0.5 -Total Square (Area) (cm) 0.30 -Tunneling No -Undermining/Tunneling No -Circular Undermining No -Wound/Ulcer Outcome Not Healed -Ulcer Cleansing Rinsed/ Irrigated with Saline -Foul Odor after Cleansing No -Bioengineered Tissue No -Bleeding Controlled with Pressure -Treatment Response Procedure Tolerated Well -Offloading No -Pressure Reduction Wheelchair cushion -Debridement - Subq, 1st 20sq cm No -Debridement - Muscle / Fascia, 1st Yes 20sq cm #2- R HIP -Time 14:10 -Correct Patient Yes -Correct Side, Site, Position Yes -Correct Procedure Yes -Procedure Performed Yes -Type of Procedure Debridement -Clinical Debridement Muscle / Fascia -Tissue Removed Muscle -Post Debridement (cm) - Length 0.5 -Post Debridement (cm) - Width 0.3 -Post Debridement (cm) - Depth 0.5 -Total Square (Post) (cm) 0.15 -Area of Debridement (cm) - Length 0.5 -Area of Debridement (cm) - Width 0.3 -Total Square (Area) (cm) 0.15 -Tunneling No -Undermining/Tunneling No -Circular Undermining No -Wound/Ulcer Outcome Not Healed -Ulcer Cleansing Rinsed/ Irrigated with Saline -Foul Odor after Cleansing No -Bioengineered Tissue No -Bleeding Controlled with Pressure -Treatment Response Procedure Tolerated Well -Offloading No -Pressure Reduction Wheelchair cushion -Debridement - Subq, 1st 20sq cm No -Debridement - Muscle / Fascia, 1st No 20sq cm #1 Sacral cluster -Time 14:04 -Correct Patient Yes -Correct Side, Site, Position Yes -Correct Procedure Yes -Procedure Performed Yes -Type of Procedure Debridement -Clinical Debridement Subcutaneous -Tissue Removed Subcutaneous -Post Debridement (cm) - Length 2.0 -Post Debridement (cm) - Width 2.2 -Post Debridement (cm) - Depth 0.5 -Total Square (Post) (cm) 4.40 -Area of Debridement (cm) - Length 2.0 -Area of Debridement (cm) - Width 2.2 -Total Square (Area) (cm) 4.40 -Tunneling No -Undermining/Tunneling No -Circular Undermining No -Wound/Ulcer Outcome Not Healed -Ulcer Cleansing Rinsed/ Irrigated with Saline -Foul Odor after Cleansing No -Bioengineered Tissue No -Bleeding Controlled with Pressure -Treatment Response Procedure Tolerated Well -Offloading No -Pressure Reduction Wheelchair cushion -Debridement - Subq, 1st 20sq cm Yes Pain Scale: 0-10 Numeric Is Patient Pain Free? Yes WC - Nurse 3 - General Ulcer D/C NN Start: 09/23/21 13:38 Freq: Status: Active Protocol: Activity Type Activity Date Activity User E-sign Co-sign Detail Recorded Client Recorded Date Recorded By Document 09/23/21 14:23 [facility] [id number] 09/23/21 14:23 [facility] 09/23/21 14:23 Wound Care Nurse 3 # 3 LEFT HIP -Ulcer Cleansing Rinsed/ Irrigated with Saline -Primary Dressing Applied Aquacel AG 4x4 -Other Dressing abd pad -Primary Dressing Covered/Secured with Secured with Tape -Aquacel AG 4x4 1 Pain Scale: 0-10 Numeric Is Patient Pain Free? Yes WC - Visit Discharge Discharge Condition Stable Ambulatory Status Wheelchair Transportation Private Auto Accompanied by sister Additional Wound Wound debrided: hip ulcer Laterality: Right Type of Debridement: Excisional debridement Anesthesia Used: 5% Lidocaine Gel Depth: Down to and including healthy tissue, in the subcutaneous layer and to muscle Percentage of wound debrided: 100 Instrument Used: 3mm curette Tissue Removed: Non viable tissue and slough, into the muscle Severity: Fat Layer Exposed Amount of bleeding with debridement: Mild Bleeding Controlled with: Pressure and Compression and gauze Patient tolerated procedure: Patient tolerated procedure well Additional Wound Wound debrided: hip ulcer Laterality: Left Type of Debridement: Excisional debridement Anesthesia Used: 5% Lidocaine Gel Depth: Down to and including healthy tissue, in the subcutaneous layer and to muscle Percentage of wound debrided: 100 Instrument Used: 3mm curette Tissue Removed: Non viable tissue and slough, into the muscle Severity: Limited To Skin Breakdown Amount of bleeding with debridement: Mild Bleeding Controlled with: Pressure and Compression and gauze Assessment/Plan Assessment/Plan (1) Pressure injury of sacral region, stage 4: CODE(S): L89.154 - Pressure ulcer of sacral region, stage 4 (2) Pressure injury of left hip, stage 4: CODE(S): L89.224 - Pressure ulcer of left hip, stage 4 (3) Pressure injury of right hip, stage 4: CODE(S): L89.214 - Pressure ulcer of right hip, stage 4 (4) Multiple sclerosis: CODE(S): G35 - Multiple sclerosis (5) History of left breast cancer: CODE(S): Z85.3 - Personal history of malignant neoplasm of breast (6) Debility: CODE(S): R53.81 - Other malaise (7) Muscle spasm: CODE(S): M62.838 - Other muscle spasm (8) Weakness: CODE(S): R53.1 - Weakness PLAN: Plan Patient was seen and evaluated at the wound healing center today. A debridement was performed as previously documented. Patient is wheelchair bound and does not off load during the day. She often is in her wheel chair for over 12 hours. Wound care - Aquacel-Ag covered with gauze to the base of the left and right ulcers and the sacral ulcer and cover with gauze/ABD daily and as needed. For the pressure areas on the left hip and right ischial area that are healed, massage with lotion and place a silicone gauze dressing to help prevent pressure. She stopped using the donut pillow at night and there is no longer any bruising. She had a pain pump placed for muscle spasms on 08/02/21. She is experiencing double vision since this was placed. Instructed her to notify her pain management person about her vision changes. Encouraged increased fluids and protein intake. Her MS is managed by Dr. Rivera at the [facility]. She recently has a wound culture on 07/16/32, while she was hospitalized, which was positive for E. coli, Enterococcus faecalis, Corynebacterium striatum and Bacteroides fragilis. She was started on Augmentin, but she stopped it because it caused her severe diarrhea. She will follow up in 3 weeks. She is to call or come in sooner if she develops any problems.
== END 2021-10-13 23:59 | disposition home or self-care (01) ==
LOC: WC 13:27
PROVIDERS: PCP Family Medicine; Referring Provider Internal Medicine; Visit Provider Nurse Practitioner Family
DX: L89.154 Pressure ulcer of sacral region, stage 4 (principal); L89.224 Pressure ulcer of left hip, stage 4; L89.214 Pressure ulcer of right hip, stage 4; G35 Multiple sclerosis; M62.838 Other muscle spasm; R53.81 Other malaise; Z99.3 Dependence on wheelchair; Z79.899 Other long term (current) drug therapy; Z85.3 Personal history of malignant neoplasm of breast
CPT/HCPCS: 11042; 11043

== ENCOUNTER 2021-09-25 13:14 | Outpatient (CLI) | payer OTHER, SELFPAY ==
[2018-02-01 11:47] VITALS: BMI 15.0
[2021-09-25 17:54] LABS: Color, Urine Straw (Yellow); Glucose, Dipstick Normal (Normal); Ketone-Dipstick Negative (Negative); Leukocyte Esterase-Dipstick 100 /ul (Negative); Nitrite-Dipstick Negative (Negative); Occult Blood-Urine Negative /ul (Negative); Protein-Dipstick Negative (Negative); Specific Gravity, Urine 1.005 (1.002-1.030); Urine Bilirubin Dipstick Negative (Negative); Urine Clarity Clear (Clear); Urine Urobilinogen Normal (Normal)
== END 2021-09-25 23:59 | disposition home or self-care (01) ==
LOC: LABSPEC 10-10 13:15
PROVIDERS: PCP Family Medicine; Visit Provider Family Medicine
DX: Z79.899 Other long term (current) drug therapy (principal)
CPT/HCPCS: 81002; 87086; 87088

== ENCOUNTER 2021-10-07 15:01 | Outpatient (RCR) | payer OTHER, SELFPAY ==
[2018-02-01 11:47] VITALS: BMI 15.0
[2021-10-07 15:32] LABS: Color, Urine Yellow (Yellow); Glucose, Dipstick Normal (Normal); Ketone-Dipstick 15 mg/dl (Negative); Leukocyte Esterase-Dipstick 500 /ul (Negative); Nitrite-Dipstick Positive (Negative); Occult Blood-Urine 150 /ul (Negative); Protein-Dipstick 15 mg/dl (Negative); Urine Bilirubin Dipstick Negative (Negative); Urine Clarity Clear (Clear); Urine Urobilinogen Normal (Normal); Urine pH 6.5 (5.0 - 8.0)
== END 2021-10-12 22:02 | disposition home or self-care (01) ==
LOC: HHLAB 15:01
PROVIDERS: PCP Family Medicine; Referring Provider Family Medicine; Visit Provider Family Medicine
DX: R82.89 Other abnormal findings on cytological and histological examination of urine (principal); R30.0 Dysuria
CPT/HCPCS: 81002; 87077; 87086; 87088; 87186

== ENCOUNTER → 2021-10-30 | Outpatient (CLI) | payer OTHER, SELFPAY ==
[2018-02-01 11:47] VITALS: BMI 15.0
[2021-10-30 11:16] LABS: Color, Urine Yellow (Yellow); Glucose, Dipstick Normal (Normal); Ketone-Dipstick Negative (Negative); Leukocyte Esterase-Dipstick 500 /ul (Negative); Nitrite-Dipstick Positive (Negative); Occult Blood-Urine 25 /ul (Negative); Protein-Dipstick 15 mg/dl (Negative); Specific Gravity, Urine 1.015 (1.002-1.030); Urine Bilirubin Dipstick Negative (Negative); Urine Clarity Cloudy (Clear); Urine Urobilinogen Normal (Normal); Urine pH 6.5 (5.0 - 8.0)
== END | disposition home or self-care (01) ==
LOC: LAB 10:26 → LABSPEC 10:28
PROVIDERS: PCP Family Medicine; Visit Provider Family Medicine
DX: N39.0 Urinary tract infection, site not specified (principal)
CPT/HCPCS: 81002; 87077; 87086; 87088; 87186

== ENCOUNTER 2021-11-04 13:30 | Outpatient (RCR) | payer OTHER, SELFPAY ==
[2018-02-01 11:47] VITALS: BMI 15.0
[2021-10-14 00:17] VITALS: BP 91/53; PULSE 73; RESP 18; TEMP 36.3
[2021-10-14 13:46] VITALS: BP 110/69; PULSE 79; TEMP 36.5
--- NOTE | 2021-10-14 15:29 | PN.PCM_ITS ---
History of Present Illness Date of Service: 10/14/21 Chief Complaint: Nonhealing sacral ulcer, stage IV; pressure injuries to b ilateral hips History of Wound: The patient is a 56-year-old who [facility] due to a chronic, non-healing stage IV sacral pressure ulcer, and non healing stage IV pressure ulcers to her bilateral hips. She has a history of multiple sclerosis and has been wheelchair-bound for about 16 years. She has been seen by this wound center in the past, and was referred to Dr. Bond at [facility] for surgical intervention to her wounds in 2020. She states due to insurance changes she is no longer able to see to [facility], and her management has resumed at our facility. She had a recent hospitalization from 07/12/21 - 07/18/21 for UTI. A sacral wound culture was obtained on 07/16/21 which was positive for E. coli, Enterococcus faecalis, Corynebacterium striatum and Bacteroides fragilis. She was started on Augmentin on 07/30/21, which was sensitive to all the bacterial growth, but she did not tolerate it because it caused her severe diarrhea, therefore she stopped taking it. She had an Intrathecal Baclofen Pain pump placed 08/02/21. Wound care - Aquacel-Ag covered with gauze daily to her left and right hips, Collagen hydrogel covered with gauze to her sacral ulcer cluster daily after washing with soap and water. Place barrier cream on left hip and right ischial area that had a pressure sore and home health has been placing silicone boarder dressings over these areas. She has been having increased drainage and discomfort from her left hip ulcer. Wound culture obtained today, 10/14/21. She states her appetite is good. She is drinking Leobardo and a protein shake daily. Progress of Wound: Sacral ulcer is improved. Left hip ulcer is having increased drainage so a wound culture was obtained today. Right hip ulcer is stable. She is currently on Cefdinir for a recurrent UTI by her PCP. Objective Data Objective Data Vital Signs: Vital Signs Temp Pulse Resp BP 97.7 F L 79 18 110/69 10/14/21 13:46 10/14/21 13:46 10/14/21 00:17 10/14/21 13:46 Charges/Coding Procedures Integumentary 111xxx-113xx: 08691 Natalia subq tissue 20 sq cm/< (Right hip and sacral ulcer) Multi Select Codes Integumentary Integumentary CPT Codes: 65856 Natalia musc/fascia 20 sq cm/< (left hip ulcer) Physical Exam Const alert and oriented x3 General Appearance: cooperative HEENT normocephalic Resp normal respiratory effort Effort and Inspection: able to speak in complete sentences Cardio regular rate Extremity normal capillary refill Skin Wound Narrative: Ulcer to sacral area is now a cluster and smaller in size. The left hip and right hip ulcers are stable but continue to have some depth to them, the cydney wound is clear. Neuro oriented x3 Psych affect normal Debridement Note Debridement Note Wound debrided: Sacral ulcer cluster Type of Debridement: Excisional debridement Anesthesia Used: 5% Lidocaine Gel Depth: Down to and including healthy tissue and in the subcutaneous layer Percentage of wound debrided: 100 Instrument Used: 5mm curette Tissue Removed: Non viable tissue and slough Severity: Fat Layer Exposed Amount of bleeding with debridement: Mild Bleeding Controlled with: Pressure and Compression and gauze Patient tolerated procedure: Patient tolerated procedure well Post-Debridement Measurements and Additional Note: Post-Debridement Measurements/Treatment - Nurse 1 - General Ulcer Assessment Start: 10/14/21 13:45 Freq: Status: Active Protocol: ASHLEY Activity Type Activity Date Activity User E-sign Co-sign Detail Recorded Client Recorded Date Recorded By Document 10/14/21 13:46 MAXIM [id number] 10/14/21 13:51 MAXIM 10/14/21 13:46 - Today's Visit Information Type of service 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 Any new allergies or adverse reactions No Had a fall/change in ADL's that may No increase risk of falls Signs or symptoms of abuse and/or No neglect since last visit Have you been in the hospital since your No last visit? Has dressing in place as prescribed Yes Has compression in place as prescribed N/A Has offloadiing in place as prescribed Yes Experienced any changes in pain level or No management Pain Scale: 0-10 Numeric Is Patient Pain Free? No L hip -Description Sharp -Duration (hours) Acute -Pain Behavior Withdrawal from Touch, Restlessness -Pain Aggravating Factors Changing Position -Alleviating Factors/Interventions Will continue to monitor WC - Nurse 1 - General Ulcer Measurement Start: 10/14/21 13:45 Freq: Status: Active Protocol: Activity Type Activity Date Activity User E-sign Co-sign Detail Recorded Client Recorded Date Recorded By Document 10/14/21 13:46 MAXIM [id number] 10/14/21 13:51 AK 10/14/21 13:46 Wound Center Nurse 1 # 3 LEFT HIP -Combined with other wound No -Current Size (cm) - Length 0.2 -Current Size (cm) - Width 0.2 -Current Size (cm) - Depth 0.2 -Total Square Cm 0.04 -Date of Last Picture (Recall this 10/14/21 field) -Photo Taken Yes -Tunneling No -Undermining/Tunneling No -Circular Undermining No -Change in Wound Grade/Stage No -Exudate Amt Medium -Exudate Type Serosanguineous -Wound Margin Distinct, Outline Attached -Granulation Amt Small (1-33%) -Granulation Quality N/A -Slough/Fibrin Yes -Necrosis Amt Small (1-33%) -Necrotic Tissue Type Adherent Slough -Structure Exposed N/A -Texture (Cydney-wound Skin Appearance) Assessed, Scarring -Moisture (Cydney-wound Skin Appearance) No Abnormality, Assessed -Color (Cydney-wound Skin Appearance) No Abnormality, Assessed -Temperature (Cydney-wound Skin No Abnormality Appearance) (Pt Warm) -Tenderness on Palpation (Cydney-wound No Skin Appearance) -Ulcer Cleansing Rinsed/ Irrigated with Saline -Foul Odor after Cleansing No -Anesthetic Used 5% Lidocaine Gel #2- R HIP -Combined with other wound No -Current Size (cm) - Length 0.3 -Current Size (cm) - Width 0.2 -Current Size (cm) - Depth 0.7 -Total Square Cm 0.06 -Date of Last Picture (Recall this 10/14/21 field) -Photo Taken Yes -Tunneling No -Undermining/Tunneling No -Circular Undermining No -Change in Wound Grade/Stage No -Exudate Amt Small -Exudate Type Serosanguineous -Wound Margin Distinct, Outline Attached -Granulation Amt Medium (34-66%) -Granulation Quality [place] -Slough/Fibrin Yes -Necrosis Amt Small (1-33%) -Necrotic Tissue Type Adherent Slough -Structure Exposed N/A -Texture (Cydney-wound Skin Appearance) Assessed, Scarring -Moisture (Cydney-wound Skin Appearance) No Abnormality, Assessed -Color (Cydney-wound Skin Appearance) No Abnormality, Assessed -Temperature (Cydney-wound Skin No Abnormality Appearance) (Pt Warm) -Tenderness on Palpation (Cydney-wound No Skin Appearance) -Ulcer Cleansing Rinsed/ Irrigated with Saline -Foul Odor after Cleansing No -Anesthetic Used 5% Lidocaine Gel #1 Sacral cluster -Combined with other wound No -Current Size (cm) - Length 1.2 -Current Size (cm) - Width 0.6 -Current Size (cm) - Depth 0.2 -Total Square Cm 0.72 -Date of Last Picture (Recall this 10/14/21 field) -Photo Taken Yes -Tunneling No -Undermining/Tunneling No -Circular Undermining No -Change in Wound Grade/Stage No -Exudate Amt Medium -Exudate Type Serosanguineous -Wound Margin Distinct, Outline Attached -Granulation Amt Small (1-33%) -Granulation Quality [place] -Slough/Fibrin Yes -Necrosis Amt Small (1-33%) -Necrotic Tissue Type Adherent Slough -Structure Exposed N/A -Texture (Cydney-wound Skin Appearance) Assessed, Scarring -Moisture (Cydney-wound Skin Appearance) No Abnormality, Assessed -Color (Cydney-wound Skin Appearance) No Abnormality, Assessed -Temperature (Cydney-wound Skin No Abnormality Appearance) (Pt Warm) -Tenderness on Palpation (Cydney-wound No Skin Appearance) -Ulcer Cleansing Rinsed/ Irrigated with Saline -Foul Odor after Cleansing No -Anesthetic Used 5% Lidocaine Gel WC - Nurse 2 - General Ulcer CM Notes Start: 10/14/21 13:45 Freq: Status: Active Protocol: Activity Type Activity Date Activity User E-sign Co-sign Detail Recorded Client Recorded Date Recorded By Document 10/14/21 13:59 OJANNA [id number] 10/14/21 14:11 JOANNA 10/14/21 13:59 Wound Center Nurse 2 # 3 LEFT HIP -Time 14:04 -Correct Patient Yes -Correct Side, Site, Position Yes -Correct Procedure Yes -Procedure Performed Yes -Type of Procedure Debridement -Clinical Debridement Muscle / Fascia -Tissue Removed Subcutaneous, Muscle -Post Debridement (cm) - Length 0.5 -Post Debridement (cm) - Width 0.4 -Post Debridement (cm) - Depth 0.9 -Total Square (Post) (cm) 0.20 -Area of Debridement (cm) - Length 0.5 -Area of Debridement (cm) - Width 0.4 -Total Square (Area) (cm) 0.20 -Tunneling No -Undermining/Tunneling No -Circular Undermining No -Wound/Ulcer Outcome Not Healed -Ulcer Cleansing Rinsed/ Irrigated with Saline -Foul Odor after Cleansing No -Bioengineered Tissue No -Bleeding Controlled with Pressure -Treatment Response Procedure Tolerated Well -Offloading No -Pressure Reduction Wheelchair cushion -Debridement - Subq, 1st 20sq cm No -Debridement - Muscle / Fascia, 1st Yes 20sq cm #2- R HIP -Time 14:01 -Correct Patient Yes -Correct Side, Site, Position Yes -Correct Procedure Yes -Procedure Performed Yes -Type of Procedure Debridement -Clinical Debridement Subcutaneous -Tissue Removed Subcutaneous -Post Debridement (cm) - Length 0.5 -Post Debridement (cm) - Width 1.0 -Post Debridement (cm) - Depth 0.7 -Total Square (Post) (cm) 0.50 -Area of Debridement (cm) - Length 0.5 -Area of Debridement (cm) - Width 1.0 -Total Square (Area) (cm) 0.50 -Tunneling No -Undermining/Tunneling No -Circular Undermining No -Wound/Ulcer Outcome Not Healed -Ulcer Cleansing Rinsed/ Irrigated with Saline -Foul Odor after Cleansing No -Bioengineered Tissue No -Bleeding Controlled with Pressure -Treatment Response Procedure Tolerated Well -Offloading No -Debridement - Subq, 1st 20sq cm No #1 Sacral cluster -Time 14:02 -Correct Patient Yes -Correct Side, Site, Position Yes -Correct Procedure Yes -Procedure Performed Yes -Type of Procedure Debridement -Clinical Debridement Subcutaneous -Tissue Removed Subcutaneous -Post Debridement (cm) - Length 2.8 -Post Debridement (cm) - Width 2.0 -Post Debridement (cm) - Depth 0.3 -Total Square (Post) (cm) 5.60 -Area of Debridement (cm) - Length 2.8 -Area of Debridement (cm) - Width 2.0 -Total Square (Area) (cm) 5.60 -Tunneling No -Undermining/Tunneling No -Circular Undermining No -Wound/Ulcer Outcome Not Healed -Ulcer Cleansing Rinsed/ Irrigated with Saline -Foul Odor after Cleansing No -Bioengineered Tissue No -Bleeding Controlled with Pressure -Treatment Response Procedure Tolerated Well -Offloading No -Pressure Reduction Wheelchair cushion -Debridement - Subq, 1st 20sq cm Yes Pain Scale: 0-10 Numeric Is Patient Pain Free? Yes Additional Wound Wound debrided: hip ulcer Laterality: Right Type of Debridement: Excisional debridement Anesthesia Used: 5% Lidocaine Gel Depth: Down to and including healthy tissue and in the subcutaneous layer Percentage of wound debrided: 100 Instrument Used: 3mm curette Tissue Removed: Non viable tissue and slough Severity: Fat Layer Exposed Amount of bleeding with debridement: Mild Bleeding Controlled with: Pressure and Compression and gauze Patient tolerated procedure: Patient tolerated procedure well Additional Wound Wound debrided: hip ulcer Laterality: Left Type of Debridement: Excisional debridement Anesthesia Used: 5% Lidocaine Gel Depth: Down to and including healthy tissue, in the subcutaneous layer and to muscle Percentage of wound debrided: 100 Instrument Used: 3mm curette Tissue Removed: Non viable tissue and slough, into the muscle Severity: Limited To Skin Breakdown Amount of bleeding with debridement: Mild Bleeding Controlled with: Pressure and Compression and gauze Assessment/Plan Assessment/Plan (1) Pressure injury of sacral region, stage 4: CODE(S): L89.154 - Pressure ulcer of sacral region, stage 4 (2) Pressure injury of left hip, stage 4: CODE(S): L89.224 - Pressure ulcer of left hip, stage 4 (3) Pressure injury of right hip, stage 4: CODE(S): L89.214 - Pressure ulcer of right hip, stage 4 (4) Multiple sclerosis: CODE(S): G35 - Multiple sclerosis (5) History of left breast cancer: CODE(S): Z85.3 - Personal history of malignant neoplasm of breast (6) Debility: CODE(S): R53.81 - Other malaise (7) Muscle spasm: CODE(S): M62.838 - Other muscle spasm (8) Weakness: CODE(S): R53.1 - Weakness PLAN: Plan Patient was seen and evaluated at the wound healing center today. A debridement was performed as previously documented. Patient is wheelchair bound and does not off load during the day. She often is in her wheel chair for over 12 hours. Wound care - Aquacel-Ag covered with gauze to the base of the left and right ulcers daily, and to the sacral ulcer collagen hydrogel and cover with gauze/ABD daily and as needed. For the pressure areas on the left hip and right ischial area that are healed, massage with lotion and place a silicone gauze dressing to help prevent pressure. She had a pain pump placed for muscle spasms on 08/02/21. She is experiencing double vision since this was placed. Instructed her to notify her pain management person about her vision changes. Encouraged increased fluids and protein intake. Her MS is managed by Dr. Rivera at the [facility]. Wound culture obtained today, 10/14/21, of the left hip due to increased drainage and pain. Depending on the results of the culture, it may necessitate the need for treatment with antibiotics. She is currently on Cefdinir for recurrent UTI by her PCP. She recently has a wound culture on 07/16/32, while she was hospitalized, which was positive for E. coli, Enterococcus faecalis, Corynebacterium striatum and Bacteroides fragilis. She was started on Augmentin, but she stopped it because it caused her severe diarrhea. She will follow up in 3 weeks. She is to call or come in sooner if she develops any problems.
[2021-11-04 13:32] VITALS: BP 108/66; PULSE 74; TEMP 36.6
--- NOTE | 2021-11-04 15:05 | PN.PCM_ITS ---
History of Present Illness Date of Service: 11/04/21 Chief Complaint: Nonhealing sacral ulcer, stage IV; pressure injuries to b ilateral hips History of Wound: The patient is a 56-year-old who [facility] due to a chronic, non-healing stage IV sacral pressure ulcer, and non healing stage IV pressure ulcers to her bilateral hips. She has a history of multiple sclerosis and has been wheelchair-bound for about 16 years. She has been seen by this wound center in the past, and was referred to Dr. Bond at [facility] for surgical intervention to her wounds in 2020. She states due to insurance changes she is no longer able to see to [facility], and her management has resumed at our facility. She had a recent hospitalization from 07/12/21 - 07/18/21 for UTI. A sacral wound culture was obtained on 07/16/21 which was positive for E. coli, Enterococcus faecalis, Corynebacterium striatum and Bacteroides fragilis. She was started on Augmentin on 07/30/21, which was sensitive to all the bacterial growth, but she did not tolerate it because it caused her severe diarrhea, therefore she stopped taking it. She had an Intrathecal Baclofen Pain pump placed 08/02/21. Wound care - Aquacel-Ag covered with gauze daily to her left and right hips, Collagen hydrogel covered with gauze to her sacral ulcer cluster daily after washing with soap and water. Place barrier cream on left hip and right ischial area that had a pressure sore and home health has been placing silicone boarder dressings over these areas. Wound culture obtained 10/14/21 which showed Staphylococcus aureus, very rare amount. She has recently been on so many antibiotics due positive urine cultures, that there is no need to treat this culture, plus it most likely is skin contaminant. She states her appetite is good. She is drinking Leobardo and a protein shake daily. Progress of Wound: Sacral ulcer is improved. Left hip ulcer is smaller in diameter but continues to have some depth. Right hip ulcer is smaller. Objective Data Objective Data Vital Signs: Vital Signs Temp Pulse Resp BP 97.8 F 74 18 108/66 11/04/21 13:32 11/04/21 13:32 10/14/21 00:17 11/04/21 13:32 Lab / Micro Data Micro: Microbiology 10/14/21 14:07 Wound Abcess - Hip Gram Stain - Final 10/14/21 14:07 Wound Abcess - Hip Wound Culture - Final Staphylococcus aureus Charges/Coding Procedures Integumentary [id number]: [id number] Natalia subq tissue 20 sq cm/< Physical Exam Const alert and oriented x3 General Appearance: cooperative HEENT normocephalic Resp normal respiratory effort Effort and Inspection: able to speak in complete sentences Cardio regular rate Extremity normal capillary refill Skin Wound Narrative: Ulcer to sacral area is pink.. The left hip ulcer is smaller in diameter but continues to have depth, the right hip ulcer is smaller in size, the cydney wound is clear. Neuro oriented x3 Psych affect normal Debridement Note Debridement Note Wound debrided: Sacral ulcer cluster Type of Debridement: Excisional debridement Anesthesia Used: 5% Lidocaine Gel Depth: Down to and including healthy tissue and in the subcutaneous layer Percentage of wound debrided: 100 Instrument Used: 3mm curette Tissue Removed: Non viable tissue and slough Severity: Fat Layer Exposed Amount of bleeding with debridement: Mild Bleeding Controlled with: Pressure and Compression and gauze Patient tolerated procedure: Patient tolerated procedure well Post-Debridement Measurements and Additional Note: Post-Debridement Measurements/Treatment - Nurse 1 - General Ulcer Assessment Start: 10/14/21 13:45 Freq: Status: Active Protocol: ASHLEY Activity Type Activity Date Activity User E-sign Co-sign Detail Recorded Client Recorded Date Recorded By Document 10/14/21 13:46 PA [id number] 10/14/21 13:51 AK Document 11/04/21 13:32 VAHE [id number] 11/04/21 13:40 VAHE 10/14/21 11/04/21 13:46 13:32 - Today's Visit Information Type of service Follow-up Visit Follow-up Visit (Physician/STATION OPERATOR (Physician/STATION OPERATOR ) ) Arrival Mode Ambulatory Wheelchair Patient Identification Verified (Name & Yes Yes ) Patient Requires Transmission-Based No Precautions Safety Precautions NA Vital Signs Temperature (97.8 F-99.1 F) 97.7 F L 97.8 F Temperature Source Temporal Temporal Pulse Rate (60-100) 79 74 Pulse Location Monitor Monitor Blood Pressure (90/60-120/80) 110/69 108/66 Blood Pressure Mean (mm Hg) 82 80 Source Monitor Monitor Position Semi-Fowlers Blood Pressure Location Right Arm History Since Last Visit- (Skip if this is Patient's initial visit) Have you changed medications since your No No last visit? Any new allergies or adverse reactions No No Had a fall/change in ADL's that may No No increase risk of falls Signs or symptoms of abuse and/or No No neglect since last visit Have you been in the hospital since your No No last visit? Has dressing in place as prescribed Yes Yes Has compression in place as prescribed N/A N/A Has offloadiing in place as prescribed Yes N/A Experienced any changes in pain level or No No management Left Footwear Regular Shoe Right Footwear Regular Shoe Pain Scale: 0-10 Numeric Is Patient Pain Free? No Yes L hip -Description Sharp -Duration (hours) Acute -Pain Behavior Withdrawal from Touch, Restlessness -Pain Aggravating Factors Changing Position -Alleviating Factors/Interventions Will continue to monitor WC - Nurse 1 - General Ulcer Measurement Start: 10/14/21 13:45 Freq: Status: Active Protocol: Activity Type Activity Date Activity User E-sign Co-sign Detail Recorded Client Recorded Date Recorded By Document 10/14/21 13:46 AK [id number] 10/14/21 13:51 AK Document 11/04/21 13:32 KR [id number] 11/04/21 13:40 KR 10/14/21 11/04/21 13:46 13:32 Wound Center Nurse 1 # 3 LEFT HIP -Combined with other wound No -Current Size (cm) - Length 0.2 0.2 -Current Size (cm) - Width 0.2 0.2 -Current Size (cm) - Depth 0.2 0.9 -Total Square Cm 0.04 0.04 -Date of Last Picture (Recall this 10/14/21 field) -Photo Taken Yes -Tunneling No -Undermining/Tunneling No -Circular Undermining No -Change in Wound Grade/Stage No -Exudate Amt Medium Small -Exudate Type Serosanguineous Serosanguineous -Wound Margin Distinct, Distinct, Outline Outline Attached Attached -Granulation Amt Small (1-33%) Large (67-100%) -Granulation Quality N/A [employer] -Slough/Fibrin Yes -Necrosis Amt Small (1-33%) None Present (0 %) -Necrotic Tissue Type Adherent Slough -Structure Exposed N/A -Texture (Cydney-wound Skin Appearance) Assessed, Assessed, Scarring Localized Edema -Moisture (Cydney-wound Skin Appearance) No Abnormality, No Abnormality, Assessed Assessed -Color (Cydney-wound Skin Appearance) No Abnormality, No Abnormality, Assessed Assessed -Temperature (Cydney-wound Skin No Abnormality No Abnormality Appearance) (Pt Warm) (Pt Warm) -Tenderness on Palpation (Cydney-wound No No Skin Appearance) -Ulcer Cleansing Rinsed/ Rinsed/ Irrigated with Irrigated with Saline Saline -Foul Odor after Cleansing No No -Anesthetic Used 5% Lidocaine 5% Lidocaine Gel Gel #2- R HIP -Combined with other wound No -Current Size (cm) - Length 0.3 0.1 -Current Size (cm) - Width 0.2 0.5 -Current Size (cm) - Depth 0.7 0.5 -Total Square Cm 0.06 0.05 -Date of Last Picture (Recall this 10/14/21 field) -Photo Taken Yes -Tunneling No -Undermining/Tunneling No -Circular Undermining No -Change in Wound Grade/Stage No -Exudate Amt Small Small -Exudate Type Serosanguineous Serosanguineous -Wound Margin Distinct, Distinct, Outline Outline Attached Attached -Granulation Amt Medium (34-66%) Medium (34-66%) -Granulation Quality [employer] -Slough/Fibrin Yes -Necrosis Amt Small (1-33%) None Present (0 %) -Necrotic Tissue Type Adherent Slough -Structure Exposed N/A -Texture (Cydney-wound Skin Appearance) Assessed, Assessed, Scarring Scarring -Moisture (Cydney-wound Skin Appearance) No Abnormality, No Abnormality, Assessed Assessed -Color (Cydney-wound Skin Appearance) No Abnormality, No Abnormality, Assessed Assessed -Temperature (Cydney-wound Skin No Abnormality No Abnormality Appearance) (Pt Warm) (Pt Warm) -Tenderness on Palpation (Cydney-wound No No Skin Appearance) -Ulcer Cleansing Rinsed/ Rinsed/ Irrigated with Irrigated with Saline Saline -Foul Odor after Cleansing No No -Anesthetic Used 5% Lidocaine 5% Lidocaine Gel Gel #1 Sacral cluster -Combined with other wound No -Current Size (cm) - Length 1.2 1.5 -Current Size (cm) - Width 0.6 0.4 -Current Size (cm) - Depth 0.2 0.2 -Total Square Cm 0.72 0.60 -Date of Last Picture (Recall this 10/14/21 field) -Photo Taken Yes -Tunneling No -Undermining/Tunneling No -Circular Undermining No -Change in Wound Grade/Stage No -Exudate Amt Medium Medium -Exudate Type Serosanguineous Serosanguineous -Wound Margin Distinct, Distinct, Outline Outline Attached Attached -Granulation Amt Small (1-33%) Medium (34-66%) -Granulation Quality [employer] -Slough/Fibrin Yes -Necrosis Amt Small (1-33%) Small (1-33%) -Necrotic Tissue Type Adherent Slough Adherent Slough -Structure Exposed N/A -Texture (Cydney-wound Skin Appearance) Assessed, Assessed, Scarring Scarring -Moisture (Cydney-wound Skin Appearance) No Abnormality, No Abnormality, Assessed Assessed -Color (Cydney-wound Skin Appearance) No Abnormality, No Abnormality, Assessed Assessed -Temperature (Cydney-wound Skin No Abnormality No Abnormality Appearance) (Pt Warm) (Pt Warm) -Tenderness on Palpation (Cydney-wound No No Skin Appearance) -Ulcer Cleansing Rinsed/ Rinsed/ Irrigated with Irrigated with Saline Saline -Foul Odor after Cleansing No No -Anesthetic Used 5% Lidocaine 5% Lidocaine Gel Gel WC - Nurse 2 - General Ulcer CM Notes Start: 10/14/21 13:45 Freq: Status: Active Protocol: Activity Type Activity Date Activity User E-sign Co-sign Detail Recorded Client Recorded Date Recorded By Document 10/14/21 13:59 [id number] 10/14/21 14:11 Document 11/04/21 14:12 [id number] 11/04/21 14:25 10/14/21 11/04/21 13:59 14:12 Wound Center Nurse 2 # 3 LEFT HIP -Time 14:04 14:15 -Correct Patient Yes Yes -Correct Side, Site, Position Yes Yes -Correct Procedure Yes Yes -Procedure Performed Yes Yes -Type of Procedure Debridement Debridement -Clinical Debridement Muscle / Fascia Subcutaneous -Tissue Removed Subcutaneous, Subcutaneous Muscle -Post Debridement (cm) - Length 0.5 1.0 -Post Debridement (cm) - Width 0.4 1.5 -Post Debridement (cm) - Depth 0.9 0.9 -Total Square (Post) (cm) 0.20 1.50 -Area of Debridement (cm) - Length 0.5 1.0 -Area of Debridement (cm) - Width 0.4 1.5 -Total Square (Area) (cm) 0.20 1.50 -Tunneling No No -Undermining/Tunneling No No -Circular Undermining No No -Wound/Ulcer Outcome Not Healed Not Healed -Ulcer Cleansing Rinsed/ Rinsed/ Irrigated with Irrigated with Saline Saline -Foul Odor after Cleansing No No -Bioengineered Tissue No No -Bleeding Controlled with Pressure Pressure -Treatment Response Procedure Procedure Tolerated Well Tolerated Well -Offloading No No -Pressure Reduction Wheelchair cushion -Debridement - Subq, 1st 20sq cm No Yes -Debridement - Muscle / Fascia, 1st Yes 20sq cm #2- R HIP -Time 14: 14:14 -Correct Patient Yes Yes -Correct Side, Site, Position Yes Yes -Correct Procedure Yes Yes -Procedure Performed Yes Yes -Type of Procedure Debridement Debridement -Clinical Debridement Subcutaneous Subcutaneous -Tissue Removed Subcutaneous Subcutaneous -Post Debridement (cm) - Length 0.5 0.7 -Post Debridement (cm) - Width 1.0 1.5 -Post Debridement (cm) - Depth 0.7 0.2 -Total Square (Post) (cm) 0.50 1.05 -Area of Debridement (cm) - Length 0.5 0.7 -Area of Debridement (cm) - Width 1.0 1.5 -Total Square (Area) (cm) 0.50 1.05 -Tunneling No Yes -Tunneling Position (O'clock) 2 -Tunneling Distance (cm) 0.4 -Undermining/Tunneling No No -Circular Undermining No No -Wound/Ulcer Outcome Not Healed Not Healed -Ulcer Cleansing Rinsed/ Rinsed/ Irrigated with Irrigated with Saline Saline -Foul Odor after Cleansing No No -Bioengineered Tissue No No -Bleeding Controlled with Pressure Pressure -Treatment Response Procedure Procedure Tolerated Well Tolerated Well -Offloading No No -Debridement - Subq, 1st 20sq cm No No #1 Sacral cluster -Time 14:02 14:14 -Correct Patient Yes Yes -Correct Side, Site, Position Yes Yes -Correct Procedure Yes Yes -Procedure Performed Yes Yes -Type of Procedure Debridement Debridement -Clinical Debridement Subcutaneous Subcutaneous -Tissue Removed Subcutaneous Subcutaneous -Post Debridement (cm) - Length 2.8 1.7 -Post Debridement (cm) - Width 2.0 0.5 -Post Debridement (cm) - Depth 0.3 0.2 -Total Square (Post) (cm) 5.60 0.85 -Area of Debridement (cm) - Length 2.8 1.7 -Area of Debridement (cm) - Width 2.0 0.5 -Total Square (Area) (cm) 5.60 0.85 -Tunneling No No -Undermining/Tunneling No No -Circular Undermining No No -Wound/Ulcer Outcome Not Healed Not Healed -Ulcer Cleansing Rinsed/ Rinsed/ Irrigated with Irrigated with Saline Saline -Foul Odor after Cleansing No No -Bioengineered Tissue No No -Bleeding Controlled with Pressure Pressure -Treatment Response Procedure Procedure Tolerated Well Tolerated Well -Offloading No No -Pressure Reduction Wheelchair cushion -Debridement - Subq, 1st 20sq cm Yes No Pain Scale: 0-10 Numeric Is Patient Pain Free? Yes Yes Additional Wound Wound debrided: hip ulcer Laterality: Right Type of Debridement: Excisional debridement Anesthesia Used: 5% Lidocaine Gel Depth: Down to and including healthy tissue and in the subcutaneous layer Percentage of wound debrided: 100 Instrument Used: 3mm curette Tissue Removed: Non viable tissue and slough Severity: Fat Layer Exposed Amount of bleeding with debridement: Mild Bleeding Controlled with: Pressure and Compression and gauze Patient tolerated procedure: Patient tolerated procedure well Additional Wound Wound debrided: hip ulcer Laterality: Left Type of Debridement: Excisional debridement Anesthesia Used: 5% Lidocaine Gel Depth: Down to and including healthy tissue, in the subcutaneous layer and to muscle Percentage of wound debrided: 100 Instrument Used: 3mm curette Tissue Removed: Non viable tissue and slough, into the muscle Severity: Limited To Skin Breakdown Amount of bleeding with debridement: Mild Bleeding Controlled with: Pressure and Compression and gauze Assessment/Plan Assessment/Plan (1) Pressure injury of sacral region, stage 4: CODE(S): L89.154 - Pressure ulcer of sacral region, stage 4 (2) Pressure injury of left hip, stage 4: CODE(S): L89.224 - Pressure ulcer of left hip, stage 4 (3) Pressure injury of right hip, stage 4: CODE(S): L89.214 - Pressure ulcer of right hip, stage 4 (4) Multiple sclerosis: CODE(S): G35 - Multiple sclerosis (5) History of left breast cancer: CODE(S): Z85.3 - Personal history of malignant neoplasm of breast (6) Debility: CODE(S): R53.81 - Other malaise (7) Muscle spasm: CODE(S): M62.838 - Other muscle spasm (8) Weakness: CODE(S): R53.1 - Weakness PLAN: Plan Patient was seen and evaluated at the wound healing center today. A debridement was performed as previously documented. Patient is wheelchair bound and does not off load during the day. She often is in her wheel chair for over 12 hours. Wound care - Collagen hydrogel to the sacral ulcer and the right hip ulcer covered with gauze daily. To to the left place 1/4 iodoform gauze into the ulcer daily and cover with gauze. She had a pain pump placed for muscle spasms on 08/02/21. She is experiencing double vision since this was placed. Instructed her to notify her pain management person about her vision changes. Encouraged increased fluids and protein intake. Her MS is managed by Dr. Rivera at the [facility]. Wound culture obtained on 10/14/21, of the left hip which showed Staphylococcus aureus, very rare amount. She has recently been on so many antibiotics due positive urine cultures, that there is no need to treat this culture, plus it most likely is skin contaminant. She recently has a wound culture on 07/16/32, while she was hospitalized, which was positive for E. coli, Enterococcus faecalis, Corynebacterium striatum and Bacteroides fragilis. She was started on Augmentin, but she stopped it because it caused her severe diarrhea. She will follow up in 3 weeks. She is to call or come in sooner if she develops any problems.
== END 2021-11-13 23:59 | disposition home or self-care (01) ==
LOC: WC 13:30
PROVIDERS: PCP Family Medicine; Referring Provider Internal Medicine; Visit Provider Nurse Practitioner Family
DX: L89.154 Pressure ulcer of sacral region, stage 4 (principal); L89.214 Pressure ulcer of right hip, stage 4; L89.224 Pressure ulcer of left hip, stage 4; G35 Multiple sclerosis; M62.838 Other muscle spasm; R53.81 Other malaise; Z99.3 Dependence on wheelchair; Z79.899 Other long term (current) drug therapy; Z85.3 Personal history of malignant neoplasm of breast
CPT/HCPCS: 11042; 11043; 87070; 87075; 87077; 87186; 87205

== ENCOUNTER 2021-11-11 15:00 | Outpatient (RCR) | payer OTHER, SELFPAY ==
[2018-02-01 11:47] VITALS: BMI 15.0
[2021-10-25 11:48] LABS: Color, Urine Yellow (Yellow); Glucose, Dipstick Normal (Normal); Ketone-Dipstick 15 mg/dl (Negative); Leukocyte Esterase-Dipstick 500 /ul (Negative); Nitrite-Dipstick Positive (Negative); Occult Blood-Urine 150 /ul (Negative); Protein-Dipstick 30 mg/dl (Negative); Urine Bilirubin Dipstick Negative (Negative); Urine Clarity Turbid (Clear); Urine Urobilinogen Normal (Normal)
[2021-11-11 15:19] LABS: Color, Urine Yellow (Yellow); Glucose, Dipstick Normal (Normal); Ketone-Dipstick 5 mg/dl (Negative); Leukocyte Esterase-Dipstick 500 /ul (Negative); Nitrite-Dipstick Negative (Negative); Occult Blood-Urine 25 /ul (Negative); Protein-Dipstick 15 mg/dl (Negative); Urine Bilirubin Dipstick Negative (Negative); Urine Clarity Clear (Clear); Urine Urobilinogen Normal (Normal)
== END 2021-11-11 18:00 | disposition home or self-care (01) ==
LOC: HHLAB 15:00
PROVIDERS: PCP Family Medicine; Referring Provider Family Medicine; Visit Provider Family Medicine
DX: L89.154 Pressure ulcer of sacral region, stage 4 (principal); L89.214 Pressure ulcer of right hip, stage 4
CPT/HCPCS: 81002; 87086; 87088

== ENCOUNTER 2021-11-21 11:19 | Outpatient (RCR) | payer OTHER, SELFPAY ==
[2018-02-01 11:47] VITALS: BMI 15.0
[2021-11-21 11:38] LABS: Color, Urine Yellow (Yellow); Glucose, Dipstick Normal (Normal); Ketone-Dipstick Negative (Negative); Leukocyte Esterase-Dipstick 500 /ul (Negative); Nitrite-Dipstick Negative (Negative); Occult Blood-Urine 50 /ul (Negative); Protein-Dipstick Negative (Negative); Urine Bilirubin Dipstick Negative (Negative); Urine Clarity Sl. Cloudy (Clear); Urine Urobilinogen Normal (Normal)
== END 2021-11-21 18:00 | disposition home or self-care (01) ==
LOC: HHLAB 11:19
PROVIDERS: PCP Family Medicine; Referring Provider Family Medicine; Visit Provider Family Medicine
DX: R39.9 Unspecified symptoms and signs involving the genitourinary system (principal); Z79.899 Other long term (current) drug therapy
CPT/HCPCS: 81002; 87077; 87086; 87088; 87186

== ENCOUNTER 2021-11-25 13:17 | Outpatient (RCR) | payer OTHER, SELFPAY ==
[2018-02-01 11:47] VITALS: BMI 15.0
[2021-11-14 00:21] VITALS: BP 108/66; PULSE 74; RESP 18; TEMP 36.6
[2021-11-25 13:20] VITALS: TEMP 36.7
--- NOTE | 2021-11-25 14:27 | PN.PCM_ITS ---
History of Present Illness Date of Service: 11/25/21 Chief Complaint: Nonhealing sacral ulcer, stage IV; pressure injuries to b ilateral hips History of Wound: The patient is a 56-year-old who [facility] due to a chronic, non-healing stage IV sacral pressure ulcer, and non healing stage IV pressure ulcers to her bilateral hips. She has a history of multiple sclerosis and has been wheelchair-bound for about 16 years. She has been seen by this wound center in the past, and was referred to Dr. Bond at [facility] for surgical intervention to her wounds in 2020. She states due to insurance changes she is no longer able to see to [facility], and her management has resumed at our facility. She had a recent hospitalization from 07/12/21 - 07/18/21 for UTI. A sacral wound culture was obtained on 07/16/21 which was positive for E. coli, Enterococcus faecalis, Corynebacterium striatum and Bacteroides fragilis. She was started on Augmentin on 07/30/21, which was sensitive to all the bacterial growth, but she did not tolerate it because it caused her severe diarrhea, therefore she stopped taking it. She had an Intrathecal Baclofen Pain pump placed 08/02/21. Wound care - Aquacel-Ag covered with gauze daily to her left hip. Collagen hydrogel covered with gauze to her sacral ulcer and right hip daily after washing with soap and water. Place barrier cream on left hip and right ischial area that had a pressure sore and home health has been placing silicone boarder dressings over these areas. Wound culture obtained 10/14/21 which showed Staphylococcus aureus, very rare amount. She has recently been on so many antibiotics due positive urine cultures, that there is no need to treat this culture, plus it most likely is skin contaminant. She states her appetite is good. She is drinking Leobardo and a protein shake daily. Progress of Wound: Left hip has a new area extended distal to the original ulcer. It is pink and caused by pressure. She continues to have some depth on the left hip ulcer. Sacral ulcer is beefy pink and stable. Right hip ulcer is stable. Objective Data Objective Data Vital Signs: Vital Signs Temp Pulse Resp BP 98.0 F 74 18 108/66 11/25/21 13:20 11/14/21 00:21 11/14/21 00:21 11/14/21 00:21 Charges/Coding Procedures Integumentary 111xxx-113xx: [id number] Natalia subq tissue 20 sq cm/< Physical Exam Const alert and oriented x3 General Appearance: cooperative HEENT normocephalic Resp normal respiratory effort Effort and Inspection: able to speak in complete sentences Cardio regular rate Extremity normal capillary refill Skin Wound Narrative: Left hip has a new area of redness extended distal to the original ulcer. It is pink and caused by pressure. She continues to have some depth on the left hip ulcer. Sacral ulcer is beefy pink and stable. Right hip ulcer is stable. Neuro oriented x3 Psych affect normal Debridement Note Debridement Note Wound debrided: Sacral ulcer cluster Type of Debridement: Excisional debridement Anesthesia Used: 5% Lidocaine Gel Depth: Down to and including healthy tissue and in the subcutaneous layer Percentage of wound debrided: 100 Instrument Used: 5mm curette Tissue Removed: Non viable tissue and slough Severity: Fat Layer Exposed Amount of bleeding with debridement: Mild Bleeding Controlled with: Pressure and Compression and gauze Patient tolerated procedure: Patient tolerated procedure well Post-Debridement Measurements and Additional Note: Post-Debridement Measurements/Treatment WC - Nurse 1 - General Ulcer Assessment Start: 11/25/21 13:20 Freq: Status: Active Protocol: ASHLEY Activity Type Activity Date Activity User E-sign Co-sign Detail Recorded Client Recorded Date Recorded By Document 11/25/21 13:20 [facility] [id number] 11/25/21 13:30 [facility] 11/25/21 13:20 - Today's Visit Information 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 Any new allergies or adverse reactions No Had a fall/change in ADL's that may No increase risk of falls Signs or symptoms of abuse and/or No neglect since last visit Have you been in the hospital since your No last visit? Has dressing in place as prescribed Yes Has compression in place as prescribed N/A Has offloadiing in place as prescribed N/A Experienced any changes in pain level or No management Left Footwear Regular Shoe Right Footwear Regular Shoe Pain Scale: 0-10 Numeric Is Patient Pain Free? Yes WC - Nurse 1 - General Ulcer Measurement Start: 11/25/21 13:20 Freq: Status: Active Protocol: Activity Type Activity Date Activity User E-sign Co-sign Detail Recorded Client Recorded Date Recorded By Document 11/25/21 13:20 [facility] [id number] 11/25/21 13:30 [facility] 11/25/21 13:20 Wound Center Nurse 1 # 3 LEFT HIP cluster -Current Size (cm) - Length 1.7 -Current Size (cm) - Width 5.4 -Current Size (cm) - Depth 1.7 -Total Square Cm 9.18 -Exudate Amt Medium -Exudate Type Serosanguineous -Wound Margin Distinct, Outline Attached -Granulation Amt None Present (0 %) -Necrosis Amt Large (67-100%) -Necrotic Tissue Type Adherent Slough -Texture (Cydney-wound Skin Appearance) Assessed, Scarring -Moisture (Cydney-wound Skin Appearance) No Abnormality, Assessed -Color (Cydney-wound Skin Appearance) No Abnormality, Assessed -Temperature (Cydney-wound Skin No Abnormality Appearance) (Pt Warm) -Tenderness on Palpation (Cydney-wound No Skin Appearance) -Ulcer Cleansing Rinsed/ Irrigated with Saline -Foul Odor after Cleansing No -Anesthetic Used 5% Lidocaine Gel #2- R HIP -Current Size (cm) - Length 2.4 -Current Size (cm) - Width 1.3 -Current Size (cm) - Depth 0.1 -Total Square Cm 3.12 -Exudate Amt None Present -Wound Margin Distinct, Outline Attached -Granulation Amt None Present (0 %) -Necrosis Amt None Present (0 %) -Texture (Cydney-wound Skin Appearance) Assessed, Scarring -Moisture (Cydney-wound Skin Appearance) Assessed,Dry/ Scaly -Color (Cydney-wound Skin Appearance) No Abnormality, Assessed -Temperature (Cydney-wound Skin No Abnormality Appearance) (Pt Warm) -Tenderness on Palpation (Cydney-wound No Skin Appearance) -Ulcer Cleansing Rinsed/ Irrigated with Saline -Foul Odor after Cleansing No -Anesthetic Used 4% Lidocaine Solution #1 Sacral cluster -Current Size (cm) - Length 1.4 -Current Size (cm) - Width 1.1 -Current Size (cm) - Depth 0.1 -Total Square Cm 1.54 -Exudate Amt Medium -Exudate Type Serosanguineous -Wound Margin Distinct, Outline Attached -Granulation Amt None Present (0 %) -Necrosis Amt Large (67-100%) -Necrotic Tissue Type Adherent Slough -Texture (Cydney-wound Skin Appearance) Assessed, Scarring -Moisture (Cydney-wound Skin Appearance) No Abnormality, Assessed -Color (Cydney-wound Skin Appearance) No Abnormality, Assessed -Temperature (Cydney-wound Skin No Abnormality Appearance) (Pt Warm) -Tenderness on Palpation (Cydney-wound No Skin Appearance) -Ulcer Cleansing Rinsed/ Irrigated with Saline -Foul Odor after Cleansing No -Anesthetic Used 4% Lidocaine Solution WC - Nurse 2 - General Ulcer CM Notes Start: 11/25/21 13:20 Freq: Status: Active Protocol: Activity Type Activity Date Activity User E-sign Co-sign Detail Recorded Client Recorded Date Recorded By Document 11/25/21 13:55 [id number] 11/25/21 14:09 11/25/21 13:55 Wound Center Nurse 2 # 3 LEFT HIP cluster -Time 13:57 -Correct Patient Yes -Correct Side, Site, Position Yes -Correct Procedure Yes -Procedure Performed Yes -Type of Procedure Debridement -Clinical Debridement Subcutaneous -Tissue Removed Subcutaneous -Post Debridement (cm) - Length 2.2 -Post Debridement (cm) - Width 5.4 -Post Debridement (cm) - Depth 0.9 -Total Square (Post) (cm) 11.88 -Area of Debridement (cm) - Length 2.2 -Area of Debridement (cm) - Width 5.4 -Total Square (Area) (cm) 11.88 -Tunneling No -Undermining/Tunneling No -Circular Undermining No -Wound/Ulcer Outcome Not Healed -Ulcer Cleansing Rinsed/ Irrigated with Saline -Foul Odor after Cleansing No -Bioengineered Tissue No -Bleeding Controlled with Pressure -Treatment Response Procedure Tolerated Well -Offloading No -Pressure Reduction Wheelchair cushion -Debridement - Subq, 1st 20sq cm No #2- R HIP -Time 13:57 -Correct Patient Yes -Correct Side, Site, Position Yes -Correct Procedure Yes -Procedure Performed Yes -Type of Procedure Debridement -Clinical Debridement Subcutaneous -Tissue Removed Subcutaneous -Post Debridement (cm) - Length 0.3 -Post Debridement (cm) - Width 0.2 -Post Debridement (cm) - Depth 0.4 -Total Square (Post) (cm) 0.06 -Area of Debridement (cm) - Length 0.3 -Area of Debridement (cm) - Width 0.2 -Total Square (Area) (cm) 0.06 -Tunneling No -Undermining/Tunneling No -Circular Undermining No -Wound/Ulcer Outcome Not Healed -Ulcer Cleansing Rinsed/ Irrigated with Saline -Foul Odor after Cleansing No -Bioengineered Tissue No -Bleeding Controlled with Pressure -Treatment Response Procedure Tolerated Well -Offloading No -Pressure Reduction Wheelchair cushion -Debridement - Subq, 1st 20sq cm No #1 Sacral cluster -Time 14:02 -Correct Patient Yes -Correct Side, Site, Position Yes -Correct Procedure Yes -Procedure Performed Yes -Type of Procedure Debridement -Clinical Debridement Subcutaneous -Tissue Removed Subcutaneous -Post Debridement (cm) - Length 0.8 -Post Debridement (cm) - Width 0.9 -Post Debridement (cm) - Depth 0.1 -Total Square (Post) (cm) 0.72 -Area of Debridement (cm) - Length 0.8 -Area of Debridement (cm) - Width 0.9 -Total Square (Area) (cm) 0.72 -Tunneling No -Undermining/Tunneling No -Circular Undermining No -Wound/Ulcer Outcome Not Healed -Ulcer Cleansing Rinsed/ Irrigated with Saline -Foul Odor after Cleansing No -Bioengineered Tissue No -Bleeding Controlled with Pressure -Treatment Response Procedure Tolerated Well -Offloading No -Pressure Reduction Wheelchair cushion -Debridement - Subq, 1st 20sq cm Yes Pain Scale: 0-10 Numeric Is Patient Pain Free? Yes WC - Nurse 3 - General Ulcer D/C NN Start: 11/25/21 13:20 Freq: Status: Active Protocol: Activity Type Activity Date Activity User E-sign Co-sign Detail Recorded Client Recorded Date Recorded By Document 11/25/21 14:16 [facility] [id number] 11/25/21 14:19 [facility] 11/25/21 14:16 Wound Care Nurse 3 # 3 LEFT HIP cluster -Ulcer Cleansing Rinsed/ Irrigated with Saline -Primary Dressing Applied Aquacel Extra, Optilok 6.5x10 -Aquacel Extra 1 -Optilok 6.5x10 1 #2- R HIP -Primary Dressing Applied C Hydrogel ($), NonAdherent Contact Layer, Optilok 6.5x10 -Optilok 6.5x10 1 #1 Sacral cluster -Ulcer Cleansing Rinsed/ Irrigated with Saline -Primary Dressing Applied Optilok 6.5x10 -Optilok 6.5x10 1 Pain Scale: 0-10 Numeric Is Patient Pain Free? Yes WC - Visit Discharge Discharge Condition Stable Ambulatory Status Wheelchair Transportation Private Auto Accompanied by sister n law Additional Wound Wound debrided: hip ulcer Laterality: Right Type of Debridement: Excisional debridement Anesthesia Used: 5% Lidocaine Gel Depth: Down to and including healthy tissue and in the subcutaneous layer Percentage of wound debrided: 100 Instrument Used: 3mm curette Tissue Removed: Non viable tissue and slough Severity: Fat Layer Exposed Amount of bleeding with debridement: Mild Bleeding Controlled with: Pressure and Compression and gauze Patient tolerated procedure: Patient tolerated procedure well Additional Wound Wound debrided: hip ulcer Laterality: Left Type of Debridement: Excisional debridement Anesthesia Used: 5% Lidocaine Gel Depth: Down to and including healthy tissue, in the subcutaneous layer and to muscle Percentage of wound debrided: 100 Instrument Used: 3mm curette Tissue Removed: Non viable tissue and slough, into the muscle Severity: Limited To Skin Breakdown Amount of bleeding with debridement: Mild Bleeding Controlled with: Pressure and Compression and gauze Assessment/Plan Assessment/Plan (1) Pressure injury of sacral region, stage 4: CODE(S): L89.154 - Pressure ulcer of sacral region, stage 4 (2) Pressure injury of left hip, stage 4: CODE(S): L89.224 - Pressure ulcer of left hip, stage 4 (3) Pressure injury of right hip, stage 4: CODE(S): L89.214 - Pressure ulcer of right hip, stage 4 (4) Multiple sclerosis: CODE(S): G35 - Multiple sclerosis (5) History of left breast cancer: CODE(S): Z85.3 - Personal history of malignant neoplasm of breast (6) Debility: CODE(S): R53.81 - Other malaise (7) Muscle spasm: CODE(S): M62.838 - Other muscle spasm (8) Weakness: CODE(S): R53.1 - Weakness PLAN: Plan Patient was seen and evaluated at the wound healing center today. A debridement was performed as previously documented. Patient is wheelchair bound and does not off load during the day. She often is in her wheel chair for over 12 hours. Wound care - Collagen hydrogel to the sacral ulcer and the right hip ulcer covered with gauze daily. To to the left place aquacel-ag/silver alginate into the ulcer daily and cover with gauze. She had a pain pump placed for muscle spasms on 08/02/21. She is experiencing double vision since this was placed. Instructed her to notify her pain management person about her vision changes. Encouraged increased fluids and protein intake. Her MS is managed by Dr. Rivera at the [facility]. Wound culture obtained on 10/14/21, of the left hip which showed Staphylococcus aureus, very rare amount. She has recently been on so many antibiotics due positive urine cultures, that there is no need to treat this culture, plus it most likely is skin contaminant. She had a wound culture on 07/16/32, while she was hospitalized, which was positive for E. coli, Enterococcus faecalis, Corynebacterium striatum and Bacteroides fragilis. She was started on Augmentin, but she stopped it because it caused her severe diarrhea. She will follow up in 3 weeks. She is to call or come in sooner if she develops any problems.
== END 2021-12-13 23:59 | disposition home or self-care (01) ==
LOC: WC 13:17
PROVIDERS: PCP Family Medicine; Referring Provider Internal Medicine; Visit Provider Nurse Practitioner Family
DX: L89.154 Pressure ulcer of sacral region, stage 4 (principal); L89.224 Pressure ulcer of left hip, stage 4; L89.214 Pressure ulcer of right hip, stage 4; G35 Multiple sclerosis; Z99.3 Dependence on wheelchair; R53.1 Weakness; R53.81 Other malaise; M62.838 Other muscle spasm
CPT/HCPCS: 11042

== ENCOUNTER → 2021-12-19 | Outpatient (CLI) | payer OTHER, SELFPAY ==
[2018-02-01 11:47] VITALS: BMI 15.0
[2021-12-19 12:16] LABS: Color, Urine Yellow (Yellow); Glucose, Dipstick Normal (Normal); Ketone-Dipstick Negative (Negative); Leukocyte Esterase-Dipstick 500 /ul (Negative); Nitrite-Dipstick Positive (Negative); Occult Blood-Urine 50 /ul (Negative); Protein-Dipstick 30 mg/dl (Negative); Urine Bilirubin Dipstick Negative (Negative); Urine Clarity Cloudy (Clear); Urine Urobilinogen Normal (Normal); Urine pH 6.5 (5.0 - 8.0)
[2021-12-19 12:56] LABS: ALB/GLOB Ratio 0.7 RATIO (0.9-2.4); AST(SGOT) 15 U/L (15-37); Alanine Aminotransfer ALT/SGPT 18 U/L (13-56); Alkaline Phosphatase 63 U/L (45-117); Anion Gap 7 (5-15); BUN 15 mg/dL (7-18); BUN/Creat Ratio 31.1 RATIO (10-20); Calcium,Total 9.5 mg/dL (8.5-10.1); Chloride 104 mmol/L (98-107); Creatinine, Serum 0.48 mg/dL (0.55-1.02); EST Glomerular Filtration Rate 141 mL/min (>60); Est Glom Filt Rate - Afr Amer 171 mL/min (>60); Globulin 4.4 g/dL (2.2-4.2); Glucose 110 mg/dL (74-106); Potassium 3.9 mmol/L (3.5-5.1); Protein, Total 7.4 g/dL (6.4-8.2); Sodium Level 138 mmol/L (136-145)
== END | disposition home or self-care (01) ==
LOC: BFHLAB 10:12
PROVIDERS: PCP Family Medicine; Visit Provider Family Medicine
DX: R60.9 Edema, unspecified (principal); E46 Unspecified protein-calorie malnutrition; N39.0 Urinary tract infection, site not specified
CPT/HCPCS: 36415; 80053; 81002; 84134; 87077; 87086; 87088; 87186

== ENCOUNTER 2022-01-06 11:00 | Outpatient (RCR) | payer OTHER, SELFPAY ==
[2018-02-01 11:47] VITALS: BMI 15.0
[2021-12-14 00:56] VITALS: BP 108/66; PULSE 74; RESP 18; TEMP 36.7
[2021-12-16 11:42] VITALS: BP 103/43; PULSE 75; TEMP 36.4
--- NOTE | 2021-12-16 13:02 | PN.PCM_ITS ---
History of Present Illness Date of Service: 12/16/21 Chief Complaint: Nonhealing sacral ulcer, stage IV; pressure injuries to b ilateral hips History of Wound: The patient is a 56-year-old who [facility] due to a chronic, non-healing stage IV sacral pressure ulcer, and non healing stage IV pressure ulcers to her bilateral hips. She has a history of multiple sclerosis and has been wheelchair-bound for about 16 years. She has been seen by this wound center in the past, and was referred to Dr. Bond at [facility] for surgical intervention to her wounds in 2020. She states due to insurance changes she is no longer able to see to [facility], and her management has resumed at our facility. She had a recent hospitalization from 07/12/21 - 07/18/21 for UTI. A sacral wound culture was obtained on 07/16/21 which was positive for E. coli, Enterococcus faecalis, Corynebacterium striatum and Bacteroides fragilis. She was started on Augmentin on 07/30/21, which was sensitive to all the bacterial growth, but she did not tolerate it because it caused her severe diarrhea, therefore she stopped taking it. She had an Intrathecal Baclofen Pain pump placed 08/02/21. [facility]ze daily to her left hip, sacral ulcer and right hip daily after washing with soap and water. Place barrier cream on left hip and right ischial area that had a pressure sore and home health has been placing silicone boarder dressings over these areas. Wound culture obtained 10/14/21 which showed Staphylococcus aureus, very rare amount. She has recently been on so many antibiotics due positive urine cultures, that there is no need to treat this culture, plus it most likely is skin contaminant. She states her appetite is good. She is drinking Leobardo and a protein shake daily. Progress of Wound: Left hip ulcer with increased drainage and non viable tissue. Sacral and right hip ulcer is stable. Objective Data Objective Data Vital Signs: Vital Signs Temp Pulse Resp BP 97.5 F L 75 18 103/43 L 12/16/21 11:42 12/16/21 11:42 12/14/21 00:56 12/16/21 11:42 Charges/Coding Procedures Integumentary [id number]: [id number] Natalia subq tissue 20 sq cm/< Physical Exam Const alert and oriented x3 General Appearance: cooperative HEENT normocephalic Resp normal respiratory effort Effort and Inspection: able to speak in complete sentences Cardio regular rate Extremity normal capillary refill Skin Wound Narrative: Left hip ulcer with increased drainage and non viable tissue. Sacral ulcer is beefy pink and stable. Right hip ulcer is stable. Neuro oriented x3 Psych affect normal Debridement Note Debridement Note Wound debrided: Sacral ulcer cluster Type of Debridement: Excisional debridement Anesthesia Used: 5% Lidocaine Gel Depth: Down to and including healthy tissue and in the subcutaneous layer Percentage of wound debrided: 100 Instrument Used: 5mm curette Tissue Removed: Non viable tissue and slough Severity: Fat Layer Exposed Amount of bleeding with debridement: Mild Bleeding Controlled with: Pressure and Compression and gauze Patient tolerated procedure: Patient tolerated procedure well Post-Debridement Measurements and Additional Note: Post-Debridement Measurements/Treatment - Nurse 1 - General Ulcer Assessment Start: 12/16/21 11:42 Freq: Status: Active Protocol: ASHLEY Activity Type Activity Date Activity User E-sign Co-sign Detail Recorded Client Recorded Date Recorded By Document 12/16/21 11:42 VAHE [id number] 12/16/21 11:45 VAHE 12/16/21 11:42 - Today's Visit Information Type of service Follow-up Visit (Physician/CHANNEL ROUGHER ) Arrival Mode Wheelchair Accompanied by sister Vital Signs Temperature (97.8 F-99.1 F) 97.5 F L Temperature Source Temporal Pulse Rate (60-100) 75 Pulse Location Monitor Blood Pressure (90/60-120/80) 103/43 L Blood Pressure Mean (mm Hg) 63 Source Monitor Position Semi-Fowlers Blood Pressure Location Left Arm History Since Last Visit- (Skip if this is Patient's initial visit) Have you changed medications since your No last visit? Any new allergies or adverse reactions No Had a fall/change in ADL's that may No increase risk of falls Signs or symptoms of abuse and/or No neglect since last visit Have you been in the hospital since your No last visit? Has dressing in place as prescribed Yes Has compression in place as prescribed N/A Has offloadiing in place as prescribed N/A Experienced any changes in pain level or No management Left Footwear Slipper Right Footwear Slipper Pain Scale: 0-10 Numeric Is Patient Pain Free? Yes - Nurse 1 - General Ulcer Measurement Start: 12/16/21 11:42 Freq: Status: Active Protocol: Activity Type Activity Date Activity User E-sign Co-sign Detail Recorded Client Recorded Date Recorded By Document 12/16/21 11:42 VAHE [id number] 12/16/21 11:45 VAHE 12/16/21 11:42 Wound Center Nurse 1 # 3 LEFT HIP cluster -Current Size (cm) - Length 0.3 -Current Size (cm) - Width 0.2 -Current Size (cm) - Depth 1.2 -Total Square Cm 0.06 -Exudate Amt Large -Exudate Type Serosanguineous -Wound Margin Distinct, Outline Attached -Granulation Amt Large (67-100%) -Granulation Quality [place] -Necrosis Amt Small (1-33%) -Necrotic Tissue Type Adherent Slough -Texture ([place]yd[place]-wound Skin Appearance) Assessed, Scarring -Moisture ([place]-wound Skin Appearance) Assessed, Maceration -Color ([place]-wound Skin Appearance) No Abnormality, Assessed -Temperature ([place]-wound Skin No Abnormality Appearance) (Pt Warm) -Tenderness on Palpation ([place]-wound No Skin Appearance) -Ulcer Cleansing Soap and Water -Foul Odor after Cleansing No -Anesthetic Used 4% Lidocaine Solution #2- R HIP -Current Size (cm) - Length 0.1 -Current Size (cm) - Width 0.4 -Current Size (cm) - Depth 0.6 -Total Square Cm 0.04 -Exudate Amt Medium -Exudate Type Serosanguineous -Wound Margin Distinct, Outline Attached -Granulation Amt Medium (34-66%) -Granulation Quality [place] -Necrosis Amt Medium (34-66%) -Necrotic Tissue Type Adherent Slough -Texture ([place]-wound Skin Appearance) Assessed, Scarring -Moisture ([place]-wound Skin Appearance) No Abnormality, Assessed -Color ([place]-wound Skin Appearance) No Abnormality, Assessed -Temperature ([place]-wound Skin No Abnormality Appearance) (Pt Warm) -Tenderness on Palpation ([place]-wound No Skin Appearance) -Ulcer Cleansing Soap and Water -Foul Odor after Cleansing No -Anesthetic Used 4% Lidocaine Solution #1 Sacral cluster -Current Size (cm) - Length 2.3 -Current Size (cm) - Width 1 -Current Size (cm) - Depth 0.3 -Total Square Cm 2.3 -Exudate Amt Medium -Exudate Type Serosanguineous -Wound Margin Distinct, Outline Attached -Granulation Amt Medium (34-66%) -Granulation Quality [place] -Necrosis Amt Small (1-33%) -Necrotic Tissue Type Adherent Slough -Texture ([place]-wound Skin Appearance) Assessed, Scarring -Moisture ([place]-wound Skin Appearance) No Abnormality, Assessed -Color ([place]-wound Skin Appearance) No Abnormality, Assessed -Temperature ([place]-wound Skin No Abnormality Appearance) (Pt Warm) -Tenderness on Palpation ([place]-wound No Skin Appearance) -Ulcer Cleansing Soap and Water -Foul Odor after Cleansing No -Anesthetic Used 4% Lidocaine Solution WC - Nurse 2 - General Ulcer CM Notes Start: 12/16/21 11:42 Freq: Status: Active Protocol: Activity Type Activity Date Activity User E-sign Co-sign Detail Recorded Client Recorded Date Recorded By Document 12/16/21 11:44 JOANNA [id number] 12/16/21 11:58 JOANNA 12/16/21 11:44 Wound Center Nurse 2 # 3 LEFT HIP cluster -Time 11:46 -Correct Patient Yes -Correct Side, Site, Position Yes -Correct Procedure Yes -Procedure Performed Yes -Type of Procedure Debridement -Clinical Debridement Subcutaneous -Tissue Removed Subcutaneous -Post Debridement (cm) - Length 0.5 -Post Debridement (cm) - Width 0.5 -Post Debridement (cm) - Depth 0.8 -Total Square (Post) (cm) 0.25 -Area of Debridement (cm) - Length 0.5 -Area of Debridement (cm) - Width 0.5 -Total Square (Area) (cm) 0.25 -Tunneling No -Undermining/Tunneling No -Circular Undermining No -Wound/Ulcer Outcome Not Healed -Ulcer Cleansing Rinsed/ Irrigated with Saline -Foul Odor after Cleansing No -Bioengineered Tissue No -Bleeding Controlled with Pressure -Treatment Response Procedure Tolerated Well -Offloading No -Debridement - Subq, 1st 20sq cm No #2- R HIP -Time 11:46 -Correct Patient Yes -Correct Side, Site, Position Yes -Correct Procedure Yes -Procedure Performed Yes -Type of Procedure Debridement -Clinical Debridement Subcutaneous -Tissue Removed Subcutaneous -Post Debridement (cm) - Length 0.4 -Post Debridement (cm) - Width 0.4 -Post Debridement (cm) - Depth 0.5 -Total Square (Post) (cm) 0.16 -Area of Debridement (cm) - Length 0.4 -Area of Debridement (cm) - Width 0.4 -Total Square (Area) (cm) 0.16 -Tunneling No -Undermining/Tunneling No -Circular Undermining No -Wound/Ulcer Outcome Not Healed -Ulcer Cleansing Rinsed/ Irrigated with Saline -Foul Odor after Cleansing No -Bioengineered Tissue No -Bleeding Controlled with Pressure -Treatment Response Procedure Tolerated Well -Offloading No -Debridement - Subq, 1st 20sq cm No #1 Sacral cluster -Time 11:50 -Correct Patient Yes -Correct Side, Site, Position Yes -Correct Procedure Yes -Procedure Performed Yes -Type of Procedure Debridement -Clinical Debridement Subcutaneous -Tissue Removed Subcutaneous -Post Debridement (cm) - Length 2.4 -Post Debridement (cm) - Width 1.5 -Post Debridement (cm) - Depth 0.4 -Total Square (Post) (cm) 3.60 -Area of Debridement (cm) - Length 2.4 -Area of Debridement (cm) - Width 1.5 -Total Square (Area) (cm) 3.60 -Tunneling No -Undermining/Tunneling No -Circular Undermining No -Wound/Ulcer Outcome Not Healed -Ulcer Cleansing Rinsed/ Irrigated with Saline -Foul Odor after Cleansing No -Bioengineered Tissue No -Bleeding Controlled with Pressure -Treatment Response Procedure Tolerated Well -Offloading No -Debridement - Subq, 1st 20sq cm Yes Pain Scale: 0-10 Numeric Is Patient Pain Free? Yes - Nurse 3 - General Ulcer D/C NN Start: 12/16/21 11:42 Freq: Status: Active Protocol: Activity Type Activity Date Activity User E-sign Co-sign Detail Recorded Client Recorded Date Recorded By Document 12/16/21 12:12 VAHE [id number] 12/16/21 12:13 VAHE 12/16/21 12:12 Wound Care Nurse 3 # 3 LEFT HIP cluster -Ulcer Cleansing Rinsed/ Irrigated with Saline -Primary Dressing Applied Aquacel AG 4x4 -Primary Dressing Covered/Secured with Dry Gauze, Secured with Tape -Aquacel AG 4x4 1 #2- R HIP -Ulcer Cleansing Rinsed/ Irrigated with Saline -Primary Dressing Covered/Secured with Dry Gauze, Secured with Tape #1 Sacral cluster -Ulcer Cleansing Rinsed/ Irrigated with Saline -Primary Dressing Covered/Secured with Dry Gauze, Secured with Tape Pain Scale: 0-10 Numeric Is Patient Pain Free? Yes WC - Visit Discharge Discharge Condition Stable Ambulatory Status Wheelchair Transportation Private Auto Accompanied by sister Additional Wound Wound debrided: hip ulcer Laterality: Right Type of Debridement: Excisional debridement Anesthesia Used: 5% Lidocaine Gel Depth: Down to and including healthy tissue and in the subcutaneous layer Percentage of wound debrided: 100 Instrument Used: 3mm curette Tissue Removed: Non viable tissue and slough Severity: Fat Layer Exposed Amount of bleeding with debridement: Mild Bleeding Controlled with: Pressure and Compression and gauze Patient tolerated procedure: Patient tolerated procedure well Additional Wound Wound debrided: hip ulcer Laterality: Left Type of Debridement: Excisional debridement Anesthesia Used: 5% Lidocaine Gel Depth: Down to and including healthy tissue, in the subcutaneous layer and to muscle Percentage of wound debrided: 100 Instrument Used: 3mm curette Tissue Removed: Non viable tissue and slough, into the muscle Severity: Limited To Skin Breakdown Amount of bleeding with debridement: Mild Bleeding Controlled with: Pressure and Compression and gauze Assessment/Plan Assessment/Plan (1) Pressure injury of sacral region, stage 4: CODE(S): L89.154 - Pressure ulcer of sacral region, stage 4 (2) Pressure injury of left hip, stage 4: CODE(S): L89.224 - Pressure ulcer of left hip, stage 4 (3) Pressure injury of right hip, stage 4: CODE(S): L89.214 - Pressure ulcer of right hip, stage 4 (4) Multiple sclerosis: CODE(S): G35 - Multiple sclerosis (5) History of left breast cancer: CODE(S): Z85.3 - Personal history of malignant neoplasm of breast (6) Debility: CODE(S): R53.81 - Other malaise (7) Muscle spasm: CODE(S): M62.838 - Other muscle spasm (8) Weakness: CODE(S): R53.1 - Weakness PLAN: Plan Patient was seen and evaluated at the wound healing center today. A debridement was performed as previously documented. Patient is wheelchair bound and does not off load during the day. She often is in her wheel chair for over 12 hours. Wound care - Aquacel-Ag covered with gauze to the sacral ulcer, the right hip ulcer and the left hip ulcer. Make sure to wick silver into the base of the ulcers. Wound culture obtained today of the left hip ulcer, depending on the results of the culture, it may necessitate the need with treatment with antibiotics Encouraged increased fluids and protein intake. Her MS is managed by Dr. Rivera at the [facility] [address] [facility]. Wound culture obtained on 10/14/21, of the left hip which showed Staphylococcus aureus, very rare amount. She has recently been on so many antibiotics due positive urine cultures, that there is no need to treat this culture, plus it most likely is skin contaminant. She had a wound culture on 07/16/32, while she was hospitalized, which was positive for E. coli, Enterococcus faecalis, Corynebacterium striatum and Bacteroides fragilis. She was started on Augmentin, but she stopped it because it caused her severe diarrhea. She is scheduled to see her PCP on to discuss referral for a colostomy and possible super pubic catheter due to her recurrent urinary tract infections. She will follow up in 3 weeks. She is to call or come in sooner if she develops any problems.
[2022-01-06 10:55] VITALS: BP 104/69; PULSE 70; TEMP 36.4
--- NOTE | 2022-01-06 12:21 | PCM.WC.PN ---
History of Present Illness Date of Service: 01/06/22 Chief Complaint: Nonhealing sacral ulcer, stage IV; pressure injuries to bilateral hips History of Wound: The patient is a 56-year-old who [facility] due to a chronic, non-healing stage IV sacral pressure ulcer, and non healing stage IV pressure ulcers to her bilateral hips. She has a history of multiple sclerosis and has been wheelchair-bound for about 16 years. She has been seen by this wound center in the past, and was [place] [facility] to her wounds in 2020. She states due to insurance changes she is no longer able to see to [facility], and her management has resumed at our facility. She had a recent hospitalization from 07/12/21 - 07/18/21 for UTI. A sacral wound culture was obtained on 07/16/21 which was positive for E. coli, Enterococcus faecalis, Corynebacterium striatum and Bacteroides fragilis. She was started on Augmentin on 07/30/21, which was sensitive to all the bacterial growth, but she did not tolerate it because it caused her severe diarrhea, therefore she stopped taking it. She had an Intrathecal Baclofen Pain pump placed 08/02/21. Wound cultures of left hip ulcer from 12/16/21 - Positive for Staphylococcus aureus and Strep anginosus. [facility] with gauze daily to her left hip, sacral ulcer and right hip daily after washing with soap and water. Place barrier cream on left hip and right ischial area that had a pressure sore and home health has been placing silicone boarder dressings over these areas. Wound culture obtained 10/14/21 which showed Staphylococcus aureus, very rare amount. She has recently been on so many antibiotics due positive urine cultures, that there is no need to treat this culture, plus it most likely is skin contaminant. She states her appetite is good. She is drinking Leobardo and a protein shake daily. Progress of Wound: Right hip ulcer is stable. Left hip ulcer with excoriation surrounding the ulcer. The sacral ulcer is deeper and larger into the muscle. Objective Data Objective Data Vital Signs: Vital Signs Temp Pulse Resp BP 97.6 F L 70 18 104/69 01/06/22 10:55 01/06/22 10:55 12/14/21 00:56 01/06/22 10:55 Lab / Micro Data Micro: Microbiology 12/16/21 Unknown Wound Abcess - Hip Gram Stain - Final 12/16/21 Unknown Wound Abcess - Hip Wound Culture - Final Staphylococcus aureus Strep anginosus 12/16/21 Unknown Wound Abcess - Hip Anaerobic Culture - Final No anaerobic bacteria isolated. Charges/Coding Procedures Integumentary 111xxx-113xx: 11650 Natalia subq tissue 20 sq cm/< (Bilateral hips) Multi Select Codes Integumentary Integumentary CPT Codes: 33506 Natalia musc/fascia 20 sq cm/< (sacral ulcer) Debridement Note Debridement Note Wound debrided: Sacral ulcer cluster Wound Grade/Stage: Stage IV Type of Debridement: Excisional debridement Anesthesia Used: 5% Lidocaine Gel Depth: Down to and including healthy tissue, in the subcutaneous layer and to muscle Percentage of wound debrided: 100 Instrument Used: 5mm curette Tissue Removed: Non viable tissue and slough Severity: Fat Layer Exposed Amount of bleeding with debridement: Mild Bleeding Controlled with: Pressure and Compression and gauze Patient tolerated procedure: Patient tolerated procedure well Post-Debridement Measurements and Additional Note: Post-Debridement Measurements/Treatment - Nurse 1 - General Ulcer Assessment Start: 12/16/21 11:42 Freq: Status: Active Protocol: ASHLEY Activity Type Activity Date Activity User E-sign Co-sign Detail Recorded Client Recorded Date Recorded By Document 12/16/21 11:42 KR [id number] 12/16/21 11:45 KR Document 01/06/22 10:55 DL [id number] 01/06/22 11:17 DL 12/16/21 01/06/22 11:42 10:55 - Today's Visit Information Type of service Follow-up Visit Follow-up Visit (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 (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 ) ) Arrival Mode Wheelchair Wheelchair Transfer Assistance None Accompanied by sister Patient Identification Verified (Name & Yes ) Patient Requires Transmission-Based No Precautions Vital Signs Temperature (97.8 F-99.1 F) 97.5 F L 97.6 F L Temperature Source Temporal Oral Pulse Rate (60-100) 75 70 Pulse Location Monitor Monitor Blood Pressure (90/60-120/80) 103/43 L 104/69 Blood Pressure Mean (mm Hg) 63 80 Source Monitor Monitor Position Semi-Fowlers Blood Pressure Location Left Arm History Since Last Visit- (Skip if this is Patient's initial visit) Have you changed medications since your No No last visit? Any new allergies or adverse reactions No No Had a fall/change in ADL's that may No No increase risk of falls Signs or symptoms of abuse and/or No No neglect since last visit Have you been in the hospital since your No No last visit? Has dressing in place as prescribed Yes Yes Has compression in place as prescribed N/A N/A Has offloadiing in place as prescribed N/A Yes Experienced any changes in pain level or No No management Left Footwear Slipper Right Footwear Slipper Pain Scale: 0-10 Numeric Is Patient Pain Free? Yes Yes WC - Nurse 1 - General Ulcer Measurement Start: 12/16/21 11:42 Freq: Status: Active Protocol: Activity Type Activity Date Activity User E-sign Co-sign Detail Recorded Client Recorded Date Recorded By Document 12/16/21 11:42 KR [id number] 12/16/21 11:45 KR Document 01/06/22 10:55 DL [id number] 01/06/22 11:17 DL 12/16/21 01/06/22 11:42 10:55 Wound Center Nurse 1 # 3 LEFT HIP cluster -Current Size (cm) - Length 0.3 3.8 -Current Size (cm) - Width 0.2 2 -Current Size (cm) - Depth 1.2 1.6 -Total Square Cm 0.06 7.6 -Photo Taken Yes -Tunneling Position (O'clock) 8 -Tunneling Distance (cm) 2 -Exudate Amt Large Small -Exudate Type Serosanguineous Serosanguineous -Wound Margin Distinct, Distinct, Outline Outline Attached Attached -Granulation Amt Large (67-100%) Medium (34-66%) -Granulation Quality [place] Red -Necrosis Amt Small (1-33%) Medium (34-66%) -Necrotic Tissue Type Adherent Slough Adherent Slough -Structure Exposed N/A -Texture ([place]-wound Skin Appearance) Assessed, Scarring Scarring -Moisture ([place]-wound Skin Appearance) Assessed, No Abnormality Maceration -Color ([place]-wound Skin Appearance) No Abnormality, No Abnormality Assessed -Temperature ([place]-wound Skin No Abnormality No Abnormality Appearance) (Pt Warm) (Pt Warm) -Tenderness on Palpation ([place]-wound No No Skin Appearance) -Ulcer Cleansing Soap and Water Soap and Water -Foul Odor after Cleansing No No -Anesthetic Used 4% Lidocaine 5% Lidocaine Solution Gel #2- R HIP -Current Size (cm) - Length 0.1 0.2 -Current Size (cm) - Width 0.4 0.4 -Current Size (cm) - Depth 0.6 0.4 -Total Square Cm 0.04 0.08 -Photo Taken Yes -Exudate Amt Medium Small -Exudate Type Serosanguineous Serosanguineous -Wound Margin Distinct, Distinct, Outline Outline Attached Attached -Granulation Amt Medium (34-66%) -Granulation Quality [place] -Necrosis Amt Medium (34-66%) Small (1-33%) -Necrotic Tissue Type Adherent Slough Adherent Slough -Structure Exposed N/A -Texture ([place]yd[place]-wound Skin Appearance) Assessed, Scarring Scarring -Moisture ([place]-wound Skin Appearance) No Abnormality, No Abnormality Assessed -Color ([place]-wound Skin Appearance) No Abnormality, Assessed -Temperature ([place]-wound Skin No Abnormality No Abnormality Appearance) (Pt Warm) (Pt Warm) -Tenderness on Palpation ([place]-wound No No Skin Appearance) -Ulcer Cleansing Soap and Water Soap and Water -Foul Odor after Cleansing No No -Anesthetic Used 4% Lidocaine 5% Lidocaine Solution Gel #1 Sacral cluster -Current Size (cm) - Length 2.3 4 -Current Size (cm) - Width 1 1.8 -Current Size (cm) - Depth 0.3 1 -Total Square Cm 2.3 7.2 -Photo Taken Yes -Exudate Amt Medium -Exudate Type Serosanguineous Serosanguineous -Wound Margin Distinct, Distinct, Outline Outline Attached Attached -Granulation Amt Medium (34-66%) Medium (34-66%) -Granulation Quality [place] Red -Necrosis Amt Small (1-33%) Medium (34-66%) -Necrotic Tissue Type Adherent Slough Adherent Slough -Structure Exposed N/A -Texture ([place]yd[place]-wound Skin Appearance) Assessed, Scarring Scarring -Moisture ([place]-wound Skin Appearance) No Abnormality, No Abnormality Assessed -Color ([place]-wound Skin Appearance) No Abnormality, No Abnormality Assessed -Temperature ([place]-wound Skin No Abnormality No Abnormality Appearance) (Pt Warm) (Pt Warm) -Tenderness on Palpation ([place]-wound No No Skin Appearance) -Ulcer Cleansing Soap and Water Soap and Water -Foul Odor after Cleansing No Yes, Due to Product Use -Anesthetic Used 4% Lidocaine 5% Lidocaine Solution Gel WC - Nurse 2 - General Ulcer CM Notes Start: 12/16/21 11:42 Freq: Status: Active Protocol: Activity Type Activity Date Activity User E-sign Co-sign Detail Recorded Client Recorded Date Recorded By Document 12/16/21 11:44 [id number] 12/16/21 11:58 Document 01/06/22 11:32 [id number] 01/06/22 11:41 12/16/21 01/06/22 11:44 11:32 Wound Center Nurse 2 # 3 LEFT HIP cluster -Time 11:46 11:33 -Correct Patient Yes Yes -Correct Side, Site, Position Yes Yes -Correct Procedure Yes Yes -Procedure Performed Yes Yes -Type of Procedure Debridement Debridement -Clinical Debridement Subcutaneous Subcutaneous -Tissue Removed Subcutaneous Subcutaneous -Post Debridement (cm) - Length 0.5 2.5 -Post Debridement (cm) - Width 0.5 4 -Post Debridement (cm) - Depth 0.8 1 -Total Square (Post) (cm) 0.25 10.0 -Area of Debridement (cm) - Length 0.5 2.5 -Area of Debridement (cm) - Width 0.5 4 -Total Square (Area) (cm) 0.25 10.0 -Tunneling No Yes -Tunneling Position (O'clock) 12 -Tunneling Distance (cm) 1.7 -Undermining/Tunneling No No -Circular Undermining No No -Wound/Ulcer Outcome Not Healed Not Healed -Ulcer Cleansing Rinsed/ Rinsed/ Irrigated with Irrigated with Saline Saline -Foul Odor after Cleansing No No -Bioengineered Tissue No No -Bleeding Controlled with Pressure Pressure -Treatment Response Procedure Procedure Tolerated Well Tolerated Well -Offloading No No -Pressure Reduction Wheelchair cushion -Debridement - Subq, 1st 20sq cm No No #2- R HIP -Time 11:46 11:33 -Correct Patient Yes Yes -Correct Side, Site, Position Yes Yes -Correct Procedure Yes Yes -Procedure Performed Yes Yes -Type of Procedure Debridement Debridement -Clinical Debridement Subcutaneous Subcutaneous -Tissue Removed Subcutaneous Subcutaneous -Post Debridement (cm) - Length 0.4 0.5 -Post Debridement (cm) - Width 0.4 0.7 -Post Debridement (cm) - Depth 0.5 0.5 -Total Square (Post) (cm) 0.16 0.35 -Area of Debridement (cm) - Length 0.4 0.5 -Area of Debridement (cm) - Width 0.4 0.7 -Total Square (Area) (cm) 0.16 0.35 -Tunneling No No -Undermining/Tunneling No No -Circular Undermining No No -Wound/Ulcer Outcome Not Healed Not Healed -Ulcer Cleansing Rinsed/ Rinsed/ Irrigated with Irrigated with Saline Saline -Foul Odor after Cleansing No No -Bioengineered Tissue No No -Bleeding Controlled with Pressure Pressure -Treatment Response Procedure Procedure Tolerated Well Tolerated Well -Offloading No No -Pressure Reduction Wheelchair cushion -Debridement - Subq, 1st 20sq cm No Yes #1 Sacral cluster -Time 11:50 11:35 -Correct Patient Yes Yes -Correct Side, Site, Position Yes Yes -Correct Procedure Yes Yes -Procedure Performed Yes Yes -Type of Procedure Debridement Debridement -Clinical Debridement Subcutaneous Muscle / Fascia -Tissue Removed Subcutaneous Muscle -Post Debridement (cm) - Length 2.4 4.2 -Post Debridement (cm) - Width 1.5 3 -Post Debridement (cm) - Depth 0.4 0.8 -Total Square (Post) (cm) 3.60 12.6 -Area of Debridement (cm) - Length 2.4 4.2 -Area of Debridement (cm) - Width 1.5 3.0 -Total Square (Area) (cm) 3.60 12.60 -Tunneling No No -Undermining/Tunneling No No -Circular Undermining No No -Wound/Ulcer Outcome Not Healed Not Healed -Ulcer Cleansing Rinsed/ Rinsed/ Irrigated with Irrigated with Saline Saline -Foul Odor after Cleansing No No -Bioengineered Tissue No No -Bleeding Controlled with Pressure Pressure -Treatment Response Procedure Procedure Tolerated Well Tolerated Well -Offloading No No -Debridement - Subq, 1st 20sq cm Yes -Debridement - Muscle / Fascia, 1st Yes 20sq cm Pain Scale: 0-10 Numeric Is Patient Pain Free? Yes Yes WC - Nurse 3 - General Ulcer D/C NN Start: 12/16/21 11:42 Freq: Status: Active Protocol: Activity Type Activity Date Activity User E-sign Co-sign Detail Recorded Client Recorded Date Recorded By Document 12/16/21 12:12 VAHE [id number] 12/16/21 12:13 KR Document 01/06/22 11:54 KR [id number] 01/06/22 11:56 KR 12/16/21 01/06/22 12:12 11:54 Wound Care Nurse 3 # 3 LEFT HIP cluster -Ulcer Cleansing Rinsed/ Rinsed/ Irrigated with Irrigated with Saline Saline -Primary Dressing Applied Aquacel AG 4x4 C Hydrogel ($), Mepilex Border, NonAdherent Contact Layer -Primary Dressing Covered/Secured with Dry Gauze, Secured with Tape -Aquacel AG 4x4 1 -Mepilex Border 3 #2- R HIP -Ulcer Cleansing Rinsed/ Irrigated with Saline -Primary Dressing Covered/Secured with Dry Gauze, Secured with Tape #1 Sacral cluster -Ulcer Cleansing Rinsed/ Irrigated with Saline -Primary Dressing Covered/Secured with Dry Gauze, Secured with Tape Pain Scale: 0-10 Numeric Is Patient Pain Free? Yes Yes WC - Visit Discharge Discharge Condition Stable Stable Ambulatory Status Wheelchair Wheelchair Transportation Private Auto Private Auto Accompanied by sister sister in law Additional Wound Wound debrided: hip ulcer Laterality: Right Wound Grade/Stage: Stage 4 Type of Debridement: Excisional debridement Anesthesia Used: 5% Lidocaine Gel Depth: Down to and including healthy tissue and in the subcutaneous layer Percentage of wound debrided: 100 Instrument Used: 3mm curette Tissue Removed: Non viable tissue and slough Severity: Fat Layer Exposed Amount of bleeding with debridement: Mild Bleeding Controlled with: Pressure and Compression and gauze Patient tolerated procedure: Patient tolerated procedure well Additional Wound Wound debrided: hip ulcer Laterality: Left Wound Grade/Stage: Stage IV Type of Debridement: Excisional debridement Anesthesia Used: 5% Lidocaine Gel Depth: Down to and including healthy tissue and in the subcutaneous layer Percentage of wound debrided: 100 Instrument Used: 3mm curette Tissue Removed: Non viable tissue and slough, into the muscle Severity: Limited To Skin Breakdown Amount of bleeding with debridement: Mild Bleeding Controlled with: Pressure and Compression and gauze Assessment/Plan Assessment/Plan (1) Pressure injury of sacral region, stage 4: CODE(S): L89.154 - Pressure ulcer of sacral region, stage 4 (2) Pressure injury of left hip, stage 4: CODE(S): L89.224 - Pressure ulcer of left hip, stage 4 (3) Pressure injury of right hip, stage 4: CODE(S): L89.214 - Pressure ulcer of right hip, stage 4 (4) Multiple sclerosis: CODE(S): G35 - Multiple sclerosis (5) History of left breast cancer: CODE(S): Z85.3 - Personal history of malignant neoplasm of breast (6) Debility: CODE(S): R53.81 - Other malaise (7) Muscle spasm: CODE(S): M62.838 - Other muscle spasm (8) Weakness: CODE(S): R53.1 - Weakness PLAN: Plan Patient was seen and evaluated at the wound healing center today. A debridement was performed as previously documented. Patient is wheelchair bound and does not off load during the day. She often is in her wheel chair for over 12 hours. Wound care - Aquacel-Ag covered with gauze to the deeper portion of the sacral ulcer and collagen hydrogel covered with adaptic to the shallow outer portion. Aquacel-Ag to the right hip ulcer, Aquacel-Ag to the tunnel of the left hip and collagen hydrogel and adaptic to the outer portion. Wound culture obtained on 12/16/21 which of the left hip ulcer, which was positive for Staphylococcus aureus and Strep anginosus and she was started on Amoxicillin. Wound culture obtained on 10/14/21, of the left hip which showed Staphylococcus aureus, very rare amount. She has recently been on so many antibiotics due positive urine cultures, that there is no need to treat this culture, plus it most likely is skin contaminant. She had a wound culture on 07/16/32, while she was hospitalized, which was positive for E. coli, Enterococcus faecalis, Corynebacterium striatum and Bacteroides fragilis. She was started on Augmentin, but she stopped it because it caused her severe diarrhea. Encouraged increased fluids and protein intake.? Her MS is managed by Dr. Rivera at the [facility].? She is scheduled to a colostomy placed with Dr. Liriano in a few weeks. She has not seen a urologist to discuss a suprapubic catheter due to recurrent UTI from having a kaye. She has been limiting what she eats during the day to prevent having a BM and sitting in it until she has help to get cleaned up. Discussed that proper nutrition is very important for wound healing. She will follow up in 3 weeks. She is to call or come in sooner if she develops any problems.
== END 2022-01-13 23:59 | disposition home or self-care (01) ==
LOC: WC 11:00
PROVIDERS: PCP Family Medicine; Referring Provider Internal Medicine; Visit Provider Nurse Practitioner Family
DX: L89.154 Pressure ulcer of sacral region, stage 4 (principal); L89.214 Pressure ulcer of right hip, stage 4; L89.224 Pressure ulcer of left hip, stage 4; G35 Multiple sclerosis; B95.61 Methicillin susceptible Staphylococcus aureus infection as the cause of diseases classified elsewhere; R53.81 Other malaise; M62.838 Other muscle spasm; Z99.3 Dependence on wheelchair; Z79.899 Other long term (current) drug therapy; Z85.3 Personal history of malignant neoplasm of breast
CPT/HCPCS: 11042; 11043; 87070; 87075; 87077; 87186; 87205

== ENCOUNTER 2022-01-13 13:03 | Inpatient (IN) | payer OTHER, SELFPAY ==
[2018-02-01 11:47] VITALS: BMI 15.0
--- NOTE | 2022-01-09 09:37 | EKG12_ITS ---
Test Reason : PRE OP Blood Pressure : / mmHG Vent. Rate : 061 BPM Atrial Rate : 061 BPM P-R Int : 130 ms QRS Dur : 078 ms QT Int : 416 ms P-R-T Axes : 075 095 074 degrees QTc Int : 418 ms Normal sinus rhythm Nonspecific ST abnormality Abnormal ECG Confirmed by ZEINA MARRERO, LOLY ([id number]), primer expeditor and drier KATTY GARCIA ([id number]) on 01/10/2022 2:19:49 P M Referred By: Brandon Hoang Confirmed By:EUN PASTRANA MD
[2022-01-09 11:03] LABS: International Normalized Ratio 1.1; Partial Thromboplast Time 30.2 Seconds (24.1-36.2)
[2022-01-13 12:16] VITALS: BMI 14.5
--- NOTE | 2022-01-13 13:22 | HP.PCM_ITS ---
History and Physical Date of Admission: 01/13/22 Intake Vital Signs ? 11/07/2209:43 12/26/2208:44 Height 5 ft 7 in ? BP ? 91/60 Blood Pressure Location ? Rt popliteal Position ? Sitting Respiration ? 17 Pulse ? 80 Pulse Source ? Monitor Temp ? 97 F L Temp Source ? Temporal Pulse Oximetry (%) ? 99 Oxygen Delivery Method ? room air Intake Visit Reasons:?COLOSTOMY Chief Complaint: colostomy Is patient in pain?: No Allergies ciprofloxacin Allergy (Mild, Verified 12/26/21 09:45) Otheramoxicillin [From Augmentin] Adverse Reaction (Unknown, Verified 12/26/21 09:45) Diarrheaclavulanic acid [From Augmentin] Adverse Reaction (Unknown, Verified 12/26/21 09:45) Diarrhea Medications cholecalciferol (vitamin D3) 250 mcg (10,000 unit) capsule 5,000 unit PO DAILY supplement 10/09/17 [History Confirmed 12/26/21] dalfampridine 10 mg tablet,extended release,12 hr 10 mg PO BID PRN PRN MS 03/24/18 [History Confirmed 12/26/21] psyllium husk (aspartame) 3.4 gram oral powder packet (Metamucil Fiber Singles) 1 packet PO DAILY Constipation 07/23/20 [History Confirmed 12/26/21] ascorbic acid (vitamin C) 1,000 mg chewable tablet 1 g PO DAILY 07/12/21 [History Confirmed 12/26/21] docusate sodium 100 mg capsule (Colace) 100 mg PO QODAY 07/12/21 [History Confirmed 12/26/21] zinc 50 mg capsule 50 mg PO DAILY 07/12/21 [History Confirmed 12/26/21] Lactobacillus 40-Bifidobact 3-S.thermophilus 100 billion cell capsule (Probiotic) 1 cap PO DAILY 07/30/21 [History Confirmed 12/26/21] Marijuana 3 drp PO/SL TID pain 07/30/21 [History Confirmed 12/26/21] amoxicillin 875 mg tablet 875 mg PO Q12H 14 days #28 tabs 12/24/21 [Rx Confirmed 12/26/21] baclofen 50 mcg/mL intrathecal solution 50 mcg intrathecal DAILY 12/26/21 [History Confirmed 12/26/21] sulfamethoxazole 400 mg-trimethoprim 80 mg tablet (Bactrim) 1 tab PO DAILY 12/26/21 [History Confirmed 12/26/21] PFS Medical History? Breast cancer Chronic indwelling Pandey catheter Former smoker History of breast cancer History of edema Marijuana use Multiple sclerosis PONV (postoperative nausea and vomiting) Post-menopausal Pressure injury of left hip, stage 4 Pressure injury of left hip, unstageable Pressure injury of right hip, stage 2 Pressure injury of right hip, stage 4 Pressure injury of sacral region, stage 4 Screening for malignant neoplasm of breast Seasonal allergies Uses wheelchair Wears glasses Surgical History? h/o tonsillectomy History of bilateral oophorectomy S/P left mastectomy (~10/12/17) Family History? Aunt Breast cancerMother Diabetes Social History? household members:? spouse Smoking Status:? Former smoker alcohol intake:? never HPI HPI HPI: 56-year-old female with MS here for discussion of a diverting colostomy.? The patient reports that her MS is worsening she is unable to transfer to the toilet.? She also has bedsores which are not healing.? Patient recently had a baclofen pump placed. ROS General General: Yes breast cancer; No weight change, appetite, fatigue, colon cancer or weakness HEENT HEENT: No difficulty swallowing, eye injury, eye surgery, swollen glands or hoarseness Endo Endocrine: No thyroid disease, diabetes mellitus, thyroid cancer, Hair loss, heat intolerance or cold intolerance Skin Skin: No rash or changing moles Breast Breast: No left breast lump, right breast lump, nipple discharge, breast pain, abnormal mammogram, abnormal US or breast enlargement Musc Musculoskeletal: No back problems, arthritis, rheumatoid arthritis, gout or joint pain Cardio Cardiovascular: No murmur, pacemaker, heart disease, atrial fibrillation, high blood pressure, heart attack, heart stent, palpitations, shortness of breat with exertion or chest pain Psych Psychiatric: No depression, anxiety or hearing voices Resp Respiratory: No shortness of breath, No sleep apnea, No cough, No COPD, No asthma, No emphysema and No wheezing Gastro Gastrointestinal: Yes abdominal pain, No nausea or vomiting, No diarrhea, Yes constipation, No blood in stool, No acid reflux, No hemorrhoids, No ulcers, No gallbladder problem and No black,tarry stools Wiley Hematologic: No blood thinners, No blood disorders, No bleeding, No anemia and No blood clots Neuro Neurologic: No system reviewed and no additional complaints, except as documented, No as per HPI, No abnormal gait, No abnormal hearing, No abnormal movements, No abnormal speech, No behavioral changes, No burning sensations, No confusion, No convulsions, No disequilibrium, No dizziness, No localized weakness, No frequent falls, No headache(s), No lack of coordination, No loss of vision, No memory loss, Yes numbness, No other visual disturbances, No radicular pain, No restless legs, No sensory deficit, No syncope, Yes tingling, No tremor(s), No weakness and No other Exam Const General: cooperative Orientation: alert and oriented x3 HENMT Head: normal to inspection Neck Neck: normal visual inspection and full ROM Chest Chest palpation & inspection: normal inspection of the chest Resp Effort & Inspection: normal respiratory effort Auscultation: clear to auscultation bilaterally Cardio Rate: regular rate Rhythm: regular rhythm GI Inspection: non-distended Palpation: soft and nontender Skin General: no rashes or lesions noted Neuro General: patient alert and patient oriented x3 Extrem General: muscle atrophy Psych Appearance: grossly normal Mental Status: mental status grossly normal Assessment and Plan Assessment and Plan (1) Constipation: ?Status:?Acute ?Qualifiers: ?Constipation type:?slow transit constipation? Qualified Code(s):?K59.01 - Slow transit constipation (2) Multiple sclerosis: ?Status:?Chronic Plan The patient has MS and bedsores along with constipation and requests diverting colostomy.? I discussed performing an end colostomy for the patient for diversion with her.? I discussed the risks including modality to bleeding, infection, injury to other organ such as the bladder, bowel, ureter.? Patient understands the risks and is willing to proceed.? I will attempt laparoscopic approach but due to the baclofen pump I may have to convert to an open pr ocedure.? I discussed this with her as well.? I will admit the patient the day before surgery to perform the bowel prep in the hospital as she is unable to take care of her self during a bowel prep. Brandon Hoang MD Pager: [facility] [address] [place] [address], [address] [place] [address] Office: I have examined the patient and the H&P has been reviewed. There are no clinical changes since date of exam. Patient is presented currently for bowel prep and plan on elective surgery tomorrow.
--- NOTE | 2022-01-13 13:25 | WOUNDNOTE ---
wound photo: right hip
--- NOTE | 2022-01-13 13:26 | WOUNDNOTE ---
wound photo: left hip
--- NOTE | 2022-01-13 13:26 | WOUNDNOTE ---
wound photo: sacrum
--- NOTE | 2022-01-13 14:09 | WOUNDNOTE ---
the left lower abdomen marked for diverting colostomy. patient is very thin. there are very minimal skin folds even with sitting. marking is approx 3 fingerbreadths from the umbilicus. patient states she is able to visualize the marking. patient has a baclofen pump in the right lower abdomen. did a short education with patient on colostomy care and discussed possible options with patient post op. patient states her hand dexterity has gotten worse as well. patient has a history of chronic constipation so a disposable pouch may be best for patient. will see if patient is able to snap together a two piece appliance and if not, can possibly look into a 1 piece disposable with plans of changing appliance 1-2 times a week. patient has certain family and friends assisting on days when pt does not go to the wound center. pt hoping to go home at discharge, but may consider a short stay in TCU if needed.
[2022-01-13] MEDS: Bisacodyl 5 MG Tablet 20 MG PO (14:50)
[2022-01-13] MEDS: 0.9% Normal Saline 1,000 ML 60 ML IV (14:52)
[2022-01-13] MEDS: Polyethylene Glycol 3350 BOWEL PREP PO (16:30)
[2022-01-13 19:06] VITALS: BP 98/69; PULSE 64; RESP 18; TEMP 36.7; O2SAT 95
[2022-01-13 19:51] VITALS: BP 98/69; PULSE 64; RESP 18; TEMP 36.7; O2SAT 95
[2022-01-13] MEDS: DALFAMPRIDINE 10 MG TAB.ER.12H PO (21:49)
[2022-01-13] MEDS: Ensure Clear 120 ML Liquid PO (21:49)
[2022-01-13] MEDS: Acetaminophen 325 MG Tablet 650 MG PO (23:33)
[2022-01-14] VITALS (16 sets, daily range): BP systolic 84–125; BP diastolic 49–74; PULSE 56–75; RESP 16–18; TEMP 36.5–37.3; O2SAT 95–100; BMI 14.5
[2022-01-14 05:52] LABS: Absolute Lymphocyte Count 2.18 X10^3/uL (0.83-4.51); Absolute Neutrophil Count 3.5 X10^3/uL (2.0-7.7); Basophil# 0.04 X10^3/uL; Basophil% 0.6 % (0-1); Eosinophil# 0.54 X10^3/uL; Eosinophils% 7.8 % (0-5); Hematocrit 33.4 % (37-47); Hemoglobin 11.2 g/dL (12.0-15.0); Lymphocyte # 2.18 X10^3/ul (0.83-4.51); Lymphocyte % 31.4 % (19-41); Mean Corp Hgb Conc 33.5 g/dL (32-36); Mean Corpuscular Hgb 31.9 pg (27.0-32.0); Mean Corpuscular Volume 95.2 fL (81-99); Mean Platelet Vol. 11.1 fl (6.2-12.0); Monocyte# 0.65 X10^3/uL; Monocyte% 9.4 % (0-10); NRBC Flagged by Analyzer 0 % (0-5); Neutrophil # 3.51 X10^3/uL (2.7-7.7); Neutrophil % 50.5 % (47-70); Platelet Count 264 K/mm3 (150-450); RBC Distribution Width SD 52.6 fl (35.1-43.9); Red Blood Count 3.51 M/mm3 (4.2-5.4); White Blood Count 6.9 K/mm3 (4.4-11.0)
[2022-01-14 06:30] LABS: Anion Gap 4 (5-15); BUN 8 mg/dL (7-18); BUN/Creat Ratio 31.6 RATIO (10-20); Calcium,Total 9.1 mg/dL (8.5-10.1); Chloride 109 mmol/L (98-107); Creatinine, Serum 0.25 mg/dL (0.55-1.02); EST Glomerular Filtration Rate 297 mL/min (>60); Est Glom Filt Rate - Afr Amer 360 mL/min (>60); Glucose 78 mg/dL (74-106); Potassium 4.1 mmol/L (3.5-5.1); Sodium Level 140 mmol/L (136-145)
[2022-01-14] MEDS: 0.9% Normal Saline 1,000 ML 60 ML IV ×2 (06:35→19:44)
--- NOTE | 2022-01-14 06:36 | NURSING ---
pt states history of nausea after anesthesia and pt has a baclofen pump RLQ
[2022-01-14] MEDS: DALFAMPRIDINE 10 MG TAB.ER.12H PO ×2 (09:08→22:12)
--- NOTE | 2022-01-14 09:13 | PCM.PN.SRG ---
Subjective Subjective Patient reports that the bowel prep worked overnight. No complaints this morning. Objective Data Objective Data Vital Signs: Vital Signs Temp Pulse Resp BP Pulse Ox O2 Del Method 98 F 60 18 98/66 96 Room Air 01/14/22 08:09 01/14/22 08:09 01/14/22 08:09 01/14/22 08:45 01/14/22 08:09 01/14/22 08:09 Oxygen Delivery Method Room Air Weight: 92 lb 9.506 oz Body Mass Index (BMI) 14.5 Intake & Output: Intake and Output for Last 24 Hours 01/12/22 01/13/22 01/14/22 23:59 23:59 23:59 Intake Total 320 / 320 943 / 943 Output Total 900 / 900 400 / 400 Balance -580 / -580 543 / 543 Lab / Micro Data Result Diagrams: 01/14/22 04:52 01/14/22 04:52 Labs: Laboratory Results - last 24 hr 01/14/22 04:52: WBC 6.9, RBC 3.51 L, Hgb 11.2 L, Hct 33.4 L, MCV 95.2, MCH 31.9, MCHC 33.5, RDW Std Deviation 52.6 H, RDW Coeff of Raisa 15.0 H, Plt Count 264, MPV 11.1, Immature Gran % (Auto) 0.300, Neut % (Auto) 50.5, Lymph % (Auto) 31.4, [place] % (Auto) 9.4, Eos % (Auto) 7.8 H, Baso % (Auto) 0.6, Absolute Neuts (auto) 3.5, Absolute Lymphs (auto) 2.18, Nucleated RBC % 0 01/14/22 04:52: Sodium 140, Potassium 4.1, Chloride 109 H, Carbon Dioxide 27.0, Anion Gap 4 L, BUN 8, Creatinine 0.25 L, Estim Creat Clear Calc 166.60, Est GFR (MDRD) Af Amer 360, Est GFR (MDRD) Non-Af 297, BUN/Creatinine Ratio 31.6 H, Glucose 78, Calcium 9.1 Assessment & Plan Assessment/Plan (1) Multiple sclerosis: PLAN: Patient has debility due to multiple sclerosis and she has a decubitus ulcer. Plan for diverting laparoscopic colostomy today. Brandon Hoang MD Pager: [facility] [address] [place] [address], [address] [place] [address] Office:
--- NOTE | 2022-01-14 10:30 | CASEMGMT ---
RN CHRISTIAN Face to Face with patient for initial transition planning/care coordination assessment. RN CM introduced self and role at [facility]. Patient lying in bed, alert and oriented. Patient willing to participate in assessment and is able to answer all questions appropriately. Care providers, pharmacy, and demographics verified. Patient wishes to discharge home with resumption of HHC and [employer] with [facility]. Patient states she has no further needs or concerns at this time. CM to follow for discharge planning needs that may arise. PCP: Martínez Specialists: JOEL Allan, wound center Preferred Pharmacy: [facility] Ortiz; [facility] retail at discharge. Insurance: MMO Prescription Benefit: yes Living Will/HPOA: yes, son Yuri Byrnes LNOK: son, sister in law Living Arrangements: Patient lives with son in a split level home with stair lift between levels. Patient has aides, nurses, and family that assists with ADLs. Transportation: sister in law, MS nurse DME/HHC: Patient states she has adjustable bed, built in shower chair, electric WC x2, and grab bars. Patient has been to TCU in the past. Patient has MS nurse through the MS center every Thursday. Patient has [employer] through [facility] 2x per week. Patient is active with [facility] for group home. Wound nurse to assist patient with ostomy teaching while admitted and will have [facility] reinforce teaching at home. Disposition Plan: Patient to discharge home with resumption of HHC, family support, and follow-up plans in place. Ankita STALLINGS, RN, CM
[2022-01-14] MEDS: Lactated Ringers 1,000 ML 15 ML IV ×2 (12:26→16:40)
--- NOTE | 2022-01-14 13:00 | COL_PTH ---
PATIENT: CASPER CHRISTENSEN LOC: MS3 U#:[id number] AGE/SX: 56/F ROOM: [facility] RE01/13/[address]: Dr. Brandon Hoang MD : 1965 BED: 1 DIS: 01/17/2022 SPEC #: [id number] RECD: 01/14/22 16:28 STATUS: MALA FOURNIER #: [id number] ANEL: 01/14/22 13:[address]: Brandon Hoang DEPT: SURGICAL PATHOLOGY RECD BY: Kat Uribe ENTERED: 01/15/22 08:22 SP TYPE: COLON OTHR DR: MD Dr. Mario Caro DO Tissues: Colon, NOS Procedures: Surgery Specimen Level V HEADER OPERATION: Laparoscopic colostomy, sigmoid colectomy PRE-OP DIAGNOSIS: Slow transit constipation, multiple sclerosis, decubitus ulcer TISSUE SUBMITTED: Sigmoid colon, staple at distal margin MICROSCOPIC DIAGNOSIS Sigmoid colon, segmental colectomy: Dilated segment of bowel with attenuated mucosal folds and vascular congestion. Two out of two lymph nodes with no pathologic change. Margins of excision with no pathologic change. AM:lior 01/16/2022 MICROSCOPIC DESCRIPTION Slides are reviewed. GROSS DESCRIPTION Received in fixative is one container labeled with the patient's name and designated sigmoid colon. The specimen consists of a 24 cm segment of bowel with minimal attached fibrofatty tissue. The lumen contains large amounts of firm stool. The distal two-thirds of the bowel mucosa does not show normal folds. No mucosal mass lesions are identified. No perforation is seen. The attached fibrofatty tissue does not contain nodules resembling lymph nodes. Structural Draftsman sections are submitted in ten cassettes as follows: 1 - mucosal margins (distal inked), 2 - uninvolved segment of bowel, 3-6 - admitting representative sections of bowel segments from area of flattened mucosal folds taken approximately 5 to 7 cm apart, 7-10 - pericolic fatty tissue. / AM:lior 01/15/2022 TC:5 CPT: 22281
[2022-01-14] MEDS: Clindamycin 900 MG/50 ML BAG 75 MG IV (14:30)
[2022-01-14] MEDS: Bupivacaine 0.25% 30 ML Vial (15:50)
--- NOTE | 2022-01-14 16:06 | CHAPLAIN ---
Type of Pastoral Visit ___ Initial Visit ___ Follow-up Visit ___ On-call Visit ___ General Patient Visit ___ Spiritual Assessment ___ Family Conference ___ Bereavement ___ Rapid Response ___ Code Blue _x__ Other (describe below) Pastoral Care Referral From ___ Patient ___ Family ___ Nurse ___ Physician ___ Moisture Meter Reader ___ Ladies Attendant ___ Other (describe below) Sacrament/Intervention ___ Active listening ___ Anointing ___ Judaism ___ Bereavement ___ Communion ___ Steph exploration ___ ___ Life review ___ Prayer ___ Reconciliation ___ Sacrament of Sick ___ Supportive presence ___ Wedding ___ Other (describe below) Pastoral Comments patient was out of the room as was the bed; left a calling card
--- NOTE | 2022-01-14 16:44 | OP.PCM_ITS ---
Report of Operation Date of Procedure: 01/14/22 Pre-Operative Diagnosis: MS and decubitus ulcer and need for diversion Post-Operative Diagnosis: Same Surgery/Procedure Performed:: Laparoscopic sigmoid colectomy with Tello end colostomy Specimen's removed: Sigmoid colon Description of Procedure: Patient was brought back to the operating room and general anesthesia was induced. The abdomen was prepped draped in usual sterile fashion. An incision was made the midline superiorly and deepened to the fascia which was elevated and incised. A port was placed into the abdomen the abdomen is insufflated 15 mmHg. Under direct visualization a right lower quadrant and right upper quadrant port were placed. Next the patient was placed into steep Trendelenburg position. The sigmoid colon was identified and traced distally. Due to the gravity and the bowel I traced the sigmoid colon as distal as I could and then made a window in the mesentery with the Enseal. 60 [place] stapler was used to divide the distal sigmoid colon. Next Enseal was used to take down the mesentery proximally until the colostomy site was in close proximity. Next the abdomen was allowed to desufflate and the colostomy site was grasped and elevated and electrocautery was used to take the skin at the site. Electrocautery was used to then to make a cruciate incision the anterior fascia and the bowel was brought through the colostomy. The colostomy was tightened around the bowel using 0 Vicryl suture until there was enough room to fit the pinky finger. Next the fascia at the midline incision and right lower quadrant incision were closed with 0 Vicryl suture. All of the skin incisions were injected with local anesthetic and closed with interrupted 4-0 Monocryl suture and Steri-Strips and bandages were applied. Next the sigmoid colon was divided using electrocautery about 5 cm distal to the skin. Next in a Cortney fashion it was sutured to the skin and to the fascia using 3-0 Vicryl sutures. The mucosal edge was sutured to the skin circumferentially using interrupted 3-0 Vicryl suture. The stoma was digitized and there was good entry with no obstruction. The stoma was pink with good vascularization. Next a stoma appliance was applied. Patient was awoken and taken to PACU in stable condition. Admit VTE Documentation VTE Mechan Device Prophylaxis: SCD's
[2022-01-14] MEDS: AMOXICILLIN 875 MG TABLET PO (18:27)
[2022-01-14] MEDS: Docusate Sodium 100 MG Capsule PO (18:28)
[2022-01-14] MEDS: Acetaminophen 325 MG Tablet 650 MG PO (18:28)
[2022-01-14] MEDS: Pantoprazole Sodium 40 MG Tablet PO (18:28)
[2022-01-14] MEDS: Ensure Clear 120 ML Liquid PO (18:32)
[2022-01-15] VITALS (9 sets, daily range): BP systolic 81–119; BP diastolic 38–83; PULSE 56–79; RESP 16–18; TEMP 36.5–36.8; O2SAT 97–100
[2022-01-15 08:31] LABS: Absolute Lymphocyte Count 1.88 X10^3/uL (0.83-4.51); Absolute Neutrophil Count 7.7 X10^3/uL (2.0-7.7); Basophil# 0.03 X10^3/uL; Basophil% 0.3 % (0-1); Eosinophil# 0.08 X10^3/uL; Eosinophils% 0.7 % (0-5); Hematocrit 32.7 % (37-47); Lymphocyte # 1.88 X10^3/ul (0.83-4.51); Lymphocyte % 17.3 % (19-41); Mean Corp Hgb Conc 33.6 g/dL (32-36); Mean Corpuscular Volume 95.1 fL (81-99); Mean Platelet Vol. 11.1 fl (6.2-12.0); Monocyte# 1.15 X10^3/uL; Monocyte% 10.6 % (0-10); NRBC Flagged by Analyzer 0 % (0-5); Neutrophil # 7.72 X10^3/uL (2.7-7.7); Neutrophil % 70.9 % (47-70); Platelet Count 248 K/mm3 (150-450); RBC Distribution Width CV 14.7 % (11.6-14.6); RBC Distribution Width SD 51.9 fl (35.1-43.9); Red Blood Count 3.44 M/mm3 (4.2-5.4); White Blood Count 10.9 K/mm3 (4.4-11.0)
[2022-01-15 08:39] LABS: Anion Gap 5 (5-15); BUN 7 mg/dL (7-18); BUN/Creat Ratio 26.8 RATIO (10-20); Calcium,Total 8.9 mg/dL (8.5-10.1); Chloride 108 mmol/L (98-107); Creatinine, Serum 0.26 mg/dL (0.55-1.02); EST Glomerular Filtration Rate 287 mL/min (>60); Est Glom Filt Rate - Afr Amer 347 mL/min (>60); Estimated Creatinine Clearance 160.19 ml/min; Glucose 79 mg/dL (74-106); Potassium 3.9 mmol/L (3.5-5.1); Sodium Level 140 mmol/L (136-145)
--- NOTE | 2022-01-15 08:44 | PN.SURG_ITS ---
Subjective Subjective Patient reports she is doing well. She has no discomfort or nausea or vomiting. She reports she tolerated clears. Objective Data Objective Data Vital Signs: Vital Signs Temp Pulse Resp BP Pulse Ox O2 Del Method 98.2 F 61 16 93/59 L 98 Room Air 01/15/22 07:58 01/15/22 07:58 01/15/22 07:58 01/15/22 08:08 01/15/22 04:00 01/15/22 07:58 Oxygen Delivery Method Room Air Weight: 92 lb 9.506 oz Body Mass Index (BMI) 14.5 Intake & Output: Intake and Output for Last 24 Hours 01/13/22 01/14/22 01/15/22 23:59 23:59 23:59 Intake Total 320 / 320 3828.5 / 4428.5 600 / 600 Output Total 900 / 900 950 / 1300 350 / 350 Balance -580 / -580 2878.5 / 3128.5 250 / 250 Lab / Micro Data Result Diagrams: 01/15/22 08:15 01/15/22 08:15 Labs: Laboratory Results - last 24 hr 01/15/22 08:15: WBC 10.9, RBC 3.44 L, Hgb 11.0 L, Hct 32.7 L, MCV 95.1, MCH 32.0, MCHC 33.6, RDW Std Deviation 51.9 H, RDW Coeff of Raisa 14.7 H, Plt Count 248, MPV 11.1, Immature Gran % (Auto) 0.200, Neut % (Auto) 70.9 H, Lymph % (Auto) 17.3 L, [place] % (Auto) 10.6 H, Eos % (Auto) 0.7, Baso % (Auto) 0.3, Absolute Neuts (auto) 7.7, Absolute Lymphs (auto) 1.88, Nucleated RBC % 0 01/15/22 08:15: Sodium 140, Potassium 3.9, Chloride 108 H, Carbon Dioxide 27.0, Anion Gap 5, BUN 7, Creatinine 0.26 L, Estim Creat Clear Calc 160.19, Est GFR (MDRD) Af Amer 347, Est GFR (MDRD) Non-Af 287, BUN/Creatinine Ratio 26.8 H, Glucose 79, Calcium 8.9 Assessment & Plan Assessment/Plan (1) Multiple sclerosis: (2) Pressure injury of right hip, stage 4: (3) Pressure injury of left hip, stage 4: PLAN: Plan Patient has bilateral hip decubitus ulcers which are being treated at the wound center. Patient underwent diverting colostomy yesterday and she will be advanced on her diet. Colostomy appears pink and viable. Colostomy nurse is consulted to follow with the patient for her wounds and for stoma teaching. Hopeful for discharge tomorrow. Brandon Hoang MD Pager: [facility] [address] [place] [address] [place] [address] Office:
--- NOTE | 2022-01-15 09:24 | WOUNDNOTE ---
Colostomy appliance intact to the left lower abdomen. stoma is pink and edematous. there is some bowel sweat noted. pt did have some residual stool from the rectum. patient cleansed and new brief placed under patient. educated patient that this is normal. plan to change appliance with patient tomorrow. plan is to use disposable appliances to make it easier for patient at home. will need to assess if patient will be able to snap the appliance in place. patient's dexterity in hands has worsened from the MS. will continue to reassure patient.
[2022-01-15] MEDS: Enoxaparin 40 MG/0.4 ML Syringe SC (10:13)
[2022-01-15] MEDS: AMOXICILLIN 875 MG TABLET PO ×2 (10:13→22:10)
[2022-01-15] MEDS: DALFAMPRIDINE 10 MG TAB.ER.12H PO ×2 (10:13→22:10)
[2022-01-15] MEDS: Pantoprazole Sodium 40 MG Tablet PO (10:13)
[2022-01-15] MEDS: Psyllium 1 PACKET PO (10:13)
[2022-01-15] MEDS: Ensure Clear 120 ML Liquid PO ×2 (10:14→15:04)
--- NOTE | 2022-01-15 11:38 | CASEMGMT ---
Social Work DAYDAY and RN Lauren approached by wound nurse, Jennifer. Jennifer discussed pt concern with colostomy care and possible thoughts of going to TCU for teaching for short term. DAYDAY reached out to Cortney at TCU to determine of TCU had open beds. Cortney informed TCU is full and no bed availability at this time. DAYDAY informed SHELLEY Aguilar of Cortney's message. NUZHAT Haque
--- NOTE | 2022-01-15 11:46 | CASEMGMT ---
RN CM in to pt room to make aware that TCU does not have bed availability. Pt states she would be interested in looking at other options for facilities. Updated SW.
--- NOTE | 2022-01-15 12:11 | CASEMGMT ---
Addendum entered by Jael Mai 01/15/22 14:29: UPDATE- Pt would like [facility] as first choice, not [facility]. Tari Garcia, discharge assistant county engineer updated of miscommunication. Original Note: Social Work SW informed by RNCM that pt would like to see options for SNF for Colostomy teaching. Discussed pt does not necessarily have skillable need but pt's HHC and wound nurse feels pt would benefit from SNF for short term. SW in to pt room to discuss d/c plan. SW introduced self and role at the hospital. Pt agreeable to discussing discharge plan. A printed list of SNF providers including quality and resource use data and consistent with the patient?s preferred geographic region, medical needs, and insurance network via the [employer] Guide Link. Pt's preferred provider is [facility]. SW informed Tari Garcia, Discharge assistant county engineer, of pt choice. Referral to be sent. PLAN: [facility], pending acceptance and precert NUZHAT Haque
[2022-01-15] MEDS: 0.9% Normal Saline 1,000 ML 60 ML IV (12:35)
--- NOTE | 2022-01-15 12:54 | CASEMGMT ---
Discharge Digital Learning Platforms Manager Sent referral to [facility]. Michael OLIVA Primary Special Education Teacher
--- NOTE | 2022-01-15 13:17 | CASEMGMT ---
Discharge Wireless Operator Mary Ann from [facility] reached out to see what patient would be coming for since therapy has not seen patient. This business writer called [facility] to ask. DAYDAY Elder stated it would be for a 1-2 weeks for ostomy teaching. Mary Ann at [facility] will have team look at referral but is unsure of referral and not sure if patient insurance will pay for stay. DAYDAY Elder notified. Michael OLIVA Wool Classer
--- NOTE | 2022-01-15 13:23 | CASEMGMT ---
Social Work Sw notified by pt nurse that pt wanted to add third choice for SNF if first two do not accept. Nurse shared pt would like third choice to be [facility]. Discharge Aluminum Can Collector, Tari Garcia, of third choice. Plan: [facility] vs. [facility] vs. NUZHAT Rose
--- NOTE | 2022-01-15 13:48 | WOUNDNOTE ---
Had patient try to practice snapping the ostomy pouch onto the flange. Pt does not have the dexterity or strength in her fingers to snap the pouch onto the bag. still plan on getting patient disposable appliances for home, but patient will most likely need assistance not only with placing the flange, but also with removing and applying a new pouch. With patient's MS, patient has continually lost more dexterity in her hands/fingers.
--- NOTE | 2022-01-15 13:52 | CHAPLAIN ---
Type of Pastoral Visit _x__ Initial Visit ___ Follow-up Visit ___ On-call Visit ___ General Patient Visit ___ Spiritual Assessment ___ Family Conference ___ Bereavement ___ Rapid Response ___ Code Blue ___ Other (describe below) Pastoral Care Referral From _x__ Patient ___ Family ___ Nurse ___ Physician ___ Marking Room Supervisor ___ Electric Motor Mechanic ___ Other (describe below) Sacrament/Intervention _x__ Active listening ___ Anointing ___ Quaker _x__ Bereavement ___ Communion ___ Steph exploration ___ _x__ Life review _x__ Prayer ___ Reconciliation ___ Sacrament of Sick _x__ Supportive presence ___ Wedding ___ Other (describe below) Pastoral Comments patient has been seen in previous admissions and when her late was a patient; pt gives updates on life and her grief processing; pt is tearful at times as she explains her feelings and how she is coping with life without her spouse; pt concern is ongoing decisions she has to make that normally he would make; pt facing a choice of where to go for rehab and her future as person with health needs; prayer and presence
--- NOTE | 2022-01-15 14:44 | CASEMGMT ---
Discharge Online Affiliate Marketing Manager This credit underwriter talked to patient via phone regarding CBD gummies. Patient then stated she did not want [facility] she wanted [facility]. This credit underwriter called [facility] and no beds available and they will not allow gummies there. This credit underwriter called patients second choice [facility] and patient could not use gummies there. This credit underwriter asked patient is that is okay and patient stated she would stop them if she needed to that way patient could get rehab. This credit underwriter sent referral to [facility]. Michael OLIVA Job Coaching
[2022-01-15] MEDS: Acetaminophen 325 MG Tablet 650 MG PO (15:03)
--- NOTE | 2022-01-15 15:14 | CASEMGMT ---
Discharge Molder Floor [facility] accepted patient. Brigitte at [facility] is going to start pre-cert. DAYDAY Elder notified. Michael OLIVA French Folding Machine Operator
--- NOTE | 2022-01-15 15:26 | CASEMGMT ---
Social Work SW in to notify pt of acceptance at [facility]. Pt made aware that insurance precert started and will need to await decision. Pt voiced understanding. PLAN: [facility], pending precert NUZHAT Haque
[2022-01-15] MEDS: Juven (unflavored) Packet 1 PACKET PO (17:28)
[2022-01-15] MEDS: Ensure Plus High Protein 120 ML LIQUID PO ×2 (17:28→22:13)
[2022-01-16] VITALS (7 sets, daily range): BP systolic 89–109; BP diastolic 46–66; PULSE 64–78; RESP 18; TEMP 34.6–37; O2SAT 96–100
[2022-01-16] MEDS: 0.9% Normal Saline 1,000 ML 60 ML IV (04:39)
[2022-01-16 06:41] LABS: Absolute Lymphocyte Count 2.15 X10^3/uL (0.83-4.51); Absolute Neutrophil Count 3.6 X10^3/uL (2.0-7.7); Basophil# 0.03 X10^3/uL; Basophil% 0.4 % (0-1); Eosinophil# 0.41 X10^3/uL; Eosinophils% 5.9 % (0-5); Hematocrit 30.2 % (37-47); Hemoglobin 10.8 g/dL (12.0-15.0); Lymphocyte # 2.15 X10^3/ul (0.83-4.51); Lymphocyte % 30.8 % (19-41); Mean Corp Hgb Conc 35.8 g/dL (32-36); Mean Corpuscular Hgb 34.1 pg (27.0-32.0); Mean Corpuscular Volume 95.3 fL (81-99); Mean Platelet Vol. 11.9 fl (6.2-12.0); Monocyte# 0.78 X10^3/uL; Monocyte% 11.2 % (0-10); NRBC Flagged by Analyzer 0 % (0-5); Neutrophil % 51.6 % (47-70); Platelet Count 271 K/mm3 (150-450); RBC Distribution Width CV 15.1 % (11.6-14.6); Red Blood Count 3.17 M/mm3 (4.2-5.4)
[2022-01-16 07:02] LABS: Anion Gap 4 (5-15); BUN 15 mg/dL (7-18); BUN/Creat Ratio 76.5 RATIO (10-20); Calcium,Total 8.5 mg/dL (8.5-10.1); Chloride 110 mmol/L (98-107); EST Glomerular Filtration Rate 399 mL/min (>60); Est Glom Filt Rate - Afr Amer 483 mL/min (>60); Estimated Creatinine Clearance 208.25 ml/min; Glucose 88 mg/dL (74-106); Potassium 3.8 mmol/L (3.5-5.1); Sodium Level 142 mmol/L (136-145)
--- NOTE | 2022-01-16 08:52 | PCM.TXEXTCAR ---
Diet Diet Order/Speech Therapy: 01/15/22 08:09 Diet: Regular - General Is pt able to select menu?: Yes Wound(s) SACRUM: Wound Type: Pressure Injury Dressing Change: AntiMicrobial (Aquacel AG, etc) LFT HIP: Wound Type: Pressure Injury Dressing Change: Aquacel AG and nugauze RT HIP: Wound Type: Pressure Injury Dressing Change: AntiMicrobial (Aquacel AG, etc) ABD: Wound Type: Surgical Incision COLOSTOMY: Wound Type: Surgical Incision Problem/Diagnosis (1) Multiple sclerosis: Status: Chronic Code(s): G35 - Multiple sclerosis (2) Pressure injury of right hip, stage 4: Status: Acute Code(s): L89.214 - Pressure ulcer of right hip, stage 4 (3) Pressure injury of left hip, stage 4: Status: Acute Code(s): L89.224 - Pressure ulcer of left hip, stage 4 Comment: treating at Wound center Plan Patient has bilateral hip decubitus ulcers which are being treated at the wound center. Patient underwent diverting colostomy yesterday and she will be advanced on her diet. Colostomy appears pink and viable. Colostomy nurse is consulted to follow with the patient for her wounds and for stoma teaching. Hopeful for discharge tomorrow. Brandon Hoang MD Pager: [facility] [address] [place] [address], [address] [place] [address] Office: Allergies/Procedures Done in Hospital Allergies ciprofloxacin Allergy (Mild, Verified 12/30/21 14:31) Other neurological tics amoxicillin [From Augmentin] Adverse Reaction (Unknown, Verified 12/30/21 14:31) Diarrhea clavulanic acid [From Augmentin] Adverse Reaction (Unknown, Verified 12/30/21 14:31) Diarrhea Type of Care/Length of Stay Estimated LOS: Convalescent Care Less Than 30 days Type of Care Needed: Skilled Rehab Potential: Good Prognosis: Good Additional Orders/Day of Discharge Day of Discharge: 01/16/22 Dietary and Speech Recommendations Dietitian Recommendations/Changes: -Continue Regular diet to optimize oral intakes. -RD will order 120mL Ensure Plus High Protein diet 4x daily and Leobardo BID with medpass once diet advances to provide supplemental energy, promote weight gain, and promote wound healing. -RD will discontinue Ensure Clear with medpass. Follow Up Care Please Follow Up With: Brandon Hoang MD When: Call to make 2 wk follow up appt with Dr Hoang [phone] Discharge Plan Admission Admit Date/Time: 01/13/22 13:03 Attending Provider: Brandon Hoang Primary Care Provider: Mario Soliz Consulting Providers: Carlos Camp Discharge Orders/Prescriptions Prescriptions: Continued baclofen 50 mcg/mL solution 50 mcg intrathecal DAILY Rx Instructions: administer over 24 hrs cholecalciferol (vitamin D3) 10,000 UNIT capsule 5,000 unit PO DAILY dalfampridine 10 MG tablet extended release 12 hr 10 mg PO BID Metamucil Fiber Singles 3.4 gram powder in packet 1 packet PO DAILY docusate sodium [Colace] 100 mg Capsule 100 mg PO QODAY ascorbic acid (vitamin C) 1,000 mg Tablet,Chewable 1 g PO DAILY zinc 50 mg Capsule 50 mg PO DAILY Probiotic 100 billion cell Capsule 1 cap PO DAILY Marijuana 3 drp PO/SL TID amoxicillin 875 mg tablet 875 mg PO Q12H Tysabri 300 mg/15 mL Solution 300 mg IV Q28D Rx Instructions: administer over 60 mins Other Ambulatory Orders: 12 Lead EKG (Routine) Timeframe: [id number] Location: None Selected Ordered By: Dr. Carlos Camp Referrals / Follow Up: Mario Soliz DO [Primary Care Provider] - Disposition Disposition (needs filled in before D/C Order can be placed): [facility]
[2022-01-16] MEDS: Enoxaparin 40 MG/0.4 ML Syringe SC (09:08)
[2022-01-16] MEDS: Juven (unflavored) Packet 1 PACKET PO ×2 (09:08→16:55)
[2022-01-16] MEDS: Docusate Sodium 100 MG Capsule PO (09:08)
[2022-01-16] MEDS: Pantoprazole Sodium 40 MG Tablet PO (09:08)
[2022-01-16] MEDS: AMOXICILLIN 875 MG TABLET PO ×2 (09:08→21:39)
[2022-01-16] MEDS: Psyllium 1 PACKET PO (09:08)
[2022-01-16] MEDS: Ensure Plus High Protein 120 ML LIQUID PO ×3 (09:09→21:40)
[2022-01-16] MEDS: DALFAMPRIDINE 10 MG TAB.ER.12H PO ×2 (09:09→21:40)
--- NOTE | 2022-01-16 09:27 | PCM.PN.SRG ---
Subjective Subjective The patient reports no issues and she is tolerating a regular diet. Objective Data Objective Data Vital Signs: Vital Signs Temp Pulse Resp BP Pulse Ox O2 Del Method 94.2 F L 101 H 18 109/64 97 Room Air 01/16/22 08:44 01/16/22 08:44 01/16/22 08:44 01/16/22 08:44 01/16/22 08:44 01/16/22 08:44 Oxygen Delivery Method Room Air Weight: 92 lb 9.506 oz Body Mass Index (BMI) 14.5 Intake & Output: Intake and Output for Last 24 Hours 01/14/22 01/15/22 01/16/22 23:59 23:59 23:59 Intake Total 3828.5 / 4428.5 1720 / 2120 1638 / 1638 Output Total 950 / 1300 350 / 575 225 / 225 Balance 2878.5 / 3128.5 1370 / 1545 1413 / 1413 Lab / Micro Data Result Diagrams: 01/16/22 05:50 01/16/22 05:50 Labs: Laboratory Results - last 24 hr 01/16/22 05:50: WBC 7.0, RBC 3.17 L, Hgb 10.8 L, Hct 30.2 L, MCV 95.3, MCH 34.1 H, MCHC 35.8 D, RDW Std Deviation 53.0 H, RDW Coeff of Raisa 15.1 H, Plt Count 271, MPV 11.9, Immature Gran % (Auto) 0.100, Neut % (Auto) 51.6, Lymph % (Auto) 30.8, [place] % (Auto) 11.2 H, Eos % (Auto) 5.9 H, Baso % (Auto) 0.4, Absolute Neuts (auto) 3.6, Absolute Lymphs (auto) 2.15, Nucleated RBC % 0 01/16/22 05:50: Sodium 142, Potassium 3.8, Chloride 110 H, Carbon Dioxide 28.0, Anion Gap 4 L, BUN 15, Creatinine 0.20 L, Estim Creat Clear Calc 208.25, Est GFR (MDRD) Af Amer 483, Est GFR (MDRD) Non-Af 399, BUN/Creatinine Ratio 76.5 H, Glucose 88, Calcium 8.5 Physical Exam Const oriented x3 Resp normal respiratory effort GI soft to palpation and non-tender Assessment & Plan Assessment/Plan (1) Multiple sclerosis: PLAN: Patient is doing well. She has not had any stool out of the stoma but she is tolerating a regular diet and having bowel sweat with no abdominal pain. I will if she is okay to return to the skilled nursing on a bowel regiment once the skilled nursing has been approved by insurance. Brandon Hoang MD Pager: [facility] [address] [place] [address], [address] [place] [address] Office:
--- NOTE | 2022-01-16 11:22 | WOUNDNOTE ---
In to do ostomy teaching with patient. stoma still edematous. dark pink in color. there was a small amount of serosanguineous drainage noted in the appliance. gently removed the appliance. stoma measures approx 2 1/4. peristomal skin is intact. cleansed skin with warm water. pat dry. placed a new flat [place] 2 piece appliance with an [employer] ring. plan to use disposable pouches once patient is home, but for now applied a drainable pouch. pt attempted to snap the pouch to the flange, but does not have the strength or dexterity to snap it together. patient states her bowels typically only moved every 4 days at home. patient will most likely need to have someone change the appliance and also remove and place the new pouches at home. awaiting decision for fpc placement. patient denies further needs at this time. will continue to follow.
--- NOTE | 2022-01-16 13:56 | CASEMGMT ---
Discharge Audio/Visual Operator This underwriter solicitation director sent PT notes to [facility] Joanna. Michael OLIVA Clinical Academic Allergist
[2022-01-16] MEDS: 0.9% Saline Lock 10 ML Syringe IV (14:07)
[2022-01-16] MEDS: Ondansetron 8 MG Tablet 4 MG PO (14:59)
[2022-01-16] MEDS: Acetaminophen 325 MG Tablet 650 MG PO (20:03)
[2022-01-17 02:57] VITALS: BP 97/52; PULSE 63; RESP 18; TEMP 36.9; O2SAT 95
[2022-01-17 09:00] VITALS: BP 100/62; PULSE 80; RESP 18; TEMP 37; O2SAT 97
[2022-01-17] MEDS: Juven (unflavored) Packet 1 PACKET PO (09:15)
[2022-01-17] MEDS: Enoxaparin 40 MG/0.4 ML Syringe SC (09:15)
[2022-01-17] MEDS: AMOXICILLIN 875 MG TABLET PO (09:15)
[2022-01-17] MEDS: Polyethylene Glycol 3350 17 GM PACKET PO (09:15)
[2022-01-17] MEDS: DALFAMPRIDINE 10 MG TAB.ER.12H PO (09:15)
[2022-01-17] MEDS: Pantoprazole Sodium 40 MG Tablet PO (09:15)
--- NOTE | 2022-01-17 11:05 | CASEMGMT ---
Addendum entered by Tari Bartlett 01/17/22 11:12: Pre-cert is still pending at this time. Michael OLIVA Fast Food Cashier Original Note: Discharge Show Card Letterer This automotive service writer reached out to [employer] regarding pre-cert. Waiting to hear back. Will follow up. Michael OLIVA Fast Food Cashier
--- NOTE | 2022-01-17 13:45 | CASEMGMT ---
Addendum entered by Zonia Alejandro 01/17/22 16:11: Social Work Pt did inform SW that she would call a friend to merchandise pickup/receiving associate her van at her house to come and take her home. NUZHAT Prakash Addendum entered by Zonia Alejandro 01/17/22 15:59: Social Work SW discussed the case with Dr. Hoang. Peer to Peer was completed by physician and denial was upheld. SW met with pt and informed. Pt upset and frustrated by insurance decision. SW offered emotional support. SW discussed option of private pay for a nursing facility. Pt denied ability to afford this. SW spoke with pt regarding applying for Medicaid and going to SNF under this benefit. Pt denies stating she knows she does not qualify. Pt states she will have to return home but does not know how she will care for new colostomy. Skilled Home health services will be continued and pt has aprivate duty aid that visits twice a week and will come on Thursday. RNCM updated with need to restart home health. NUZHAT Cabral Original Note: Social Work SW met with pt and updated that insurance preauth is still pending. Pt stating someone called her son with dishcharge information and pt does not want this to happen as pt is her own decision maker. SW nor RNCM contacted pt son. Phone call placed to [facility] and requested they contact pt directly with questions and not contact pt son. While speaking with [facility], DAYDAY updated that insurance denied pt SNF stay. Peer to Peer can be completed by calling [phone] option 1 then option 2. Physician notified and SW will await communication from physician. NUZHAT Cabral
[2022-01-17 14:30] VITALS: BP 94/64; PULSE 84; RESP 18; TEMP 36.7; O2SAT 96
[2022-01-17] MEDS: Ensure Plus High Protein 120 ML LIQUID PO (14:36)
--- NOTE | 2022-01-17 15:28 | CASEMGMT ---
Addendum entered by Lauren Perla 01/17/22 16:08: TC to pt bedside nurse, she is aware that pt was denied SNF and pt will dc home with [facility] and prior services resuming. Addendum entered by Lauren Perla 01/17/22 15:57: RN CM in to pt room, pt is aware that [facility] will start seeing her again and that she will be contacted on the date for this. Addendum entered by Lauren Perla 01/17/22 15:41: Updated [facility] that pt was denied and that pt will return home. Georgina will call back with date for SOC. Addendum entered by Lauren Perla 01/17/22 15:37: Faxed ostomy supply list to [facility] at this time. Addendum entered by Lauren Perla 01/17/22 15:31: Received tc from Georgina, pt episode ended while in the hospital. If pt returns home, she will be a new start of care, order written as such for SN and OT. Original Note: TC to Georgina at [facility] to make aware pt was denied SNF stay currently but the physician may do the peer to peer. She is aware pt will be dc'ing home if this is also denied. GEORGE order placed. Green sheet on chart for GEORGE of [facility] should pt be dc'd and denied after peer to peer.
--- NOTE | 2022-01-17 15:41 | PCM.DC.SUM ---
Providers Date of Admission: 01/13/22 Primary Care Physician: Dr. Dora Soliz, Consultations 01/13/22 13:03 Consult: Onc/Wound/health care assistant Routine Comment: Comments:: sacral ulcer, dora for colostomy Reason For Visit: LAP COLOSTOMY Diagnosis Discharge Diagnosis (1) Multiple sclerosis: Status: Chronic Code(s): G35 - Multiple sclerosis Plan: Patient is doing well. She has not had any stool out of the stoma but she is tolerating a regular diet and having bowel sweat with no abdominal pain. I will if she is okay to return to the shelter on a bowel regiment once the shelter has been approved by insurance. Brandon Hoang MD Pager: [facility] [address] [place] [address], [address] [place] [phone] Office: Medications at Discharge Home Medications cholecalciferol (vitamin D3) 250 mcg (10,000 unit) capsule 5,000 unit PO DAILY supplement 10/09/17 dalfampridine 10 mg tablet,extended release,12 hr 10 mg PO BID MS 03/24/18 psyllium husk (aspartame) 3.4 gram oral powder packet (Metamucil Fiber Singles) 1 packet PO DAILY Constipation 07/23/20 ascorbic acid (vitamin C) 1,000 mg chewable tablet 1 g PO DAILY Check with primary doctor 07/12/21 docusate sodium 100 mg capsule (Colace) 100 mg PO QODAY Check with primary doctor 07/12/21 zinc 50 mg capsule 50 mg PO DAILY Check with primary doctor 07/12/21 Lactobacillus 40-Bifidobact 3-S.thermophilus 100 billion cell capsule (Probiotic) 1 cap PO DAILY Check with primary doctor 07/30/21 Marijuana 3 drp PO/SL TID pain 07/30/21 baclofen 50 mcg/mL intrathecal solution 50 mcg intrathecal DAILY Check with primary doctor 12/26/21 amoxicillin 875 mg tablet 875 mg PO Q12H Check with primary doctor 12/30/21 natalizumab 300 mg/15 mL intravenous solution (Tysabri) 300 mg IV Q28D Check with primary doctor 12/30/21 Hospital Course Summary of Care Provided Hospital Course: Presented from bowel prep and then subsequent partial colectomy with end colostomy. Patient did well after surgery. She was discharged home with home health care. Weight / BMI Weight Weight: 92 lb 9.506 oz Body Mass Index (BMI) 14.5 ABG / Lab / Microbiology Data Result Diagrams: 01/16/22 05:50 01/16/22 05:50 D/C Instructions Discharge Diet: Light diet - advance as tolerated Discharge Activity: Return to Normal Activity Call your doctor if your incision/area has: Continuous Slow Oozing, Sudden Increased Bleeding, Increased Pain/ Swelling, Increased Redness, Foul Smelling Discharge and Swelling at the incision site Call your doctor if you observe: Fever of 101 or Higher and Inability to have a bowel movement Remove Dressing in: 1 day (Remove clear bandages today or tomorrow, remove Steri-Strips in 7 to 10 days.) Cleanse incision/area with: Soap & Water Please Follow Up With: Brandon Hoang MD When: Please call to schedule 2 week follow up appointment. [phone] Meaningful Use Info Meaningful Use Diagnoses (Choose all that apply): None applicable Discharge Plan Admission Admit Date/Time: 01/13/22 13:03 Attending Provider: Brandon Hoang Primary Care Provider: Dora Soliz Consulting Providers: Carlos Camp Discharge Orders/Prescriptions Prescriptions: Continued baclofen 50 mcg/mL solution 50 mcg intrathecal DAILY Rx Instructions: administer over 24 hrs cholecalciferol (vitamin D3) 10,000 UNIT capsule 5,000 unit PO DAILY dalfampridine 10 MG tablet extended release 12 hr 10 mg PO BID Metamucil Fiber Singles 3.4 gram powder in packet 1 packet PO DAILY docusate sodium [Colace] 100 mg Capsule 100 mg PO QODAY ascorbic acid (vitamin C) 1,000 mg Tablet,Chewable 1 g PO DAILY zinc 50 mg Capsule 50 mg PO DAILY Probiotic 100 billion cell Capsule 1 cap PO DAILY Marijuana 3 drp PO/SL TID amoxicillin 875 mg tablet 875 mg PO Q12H Tysabri 300 mg/15 mL Solution 300 mg IV Q28D Rx Instructions: administer over 60 mins Other Ambulatory Orders: 12 Lead EKG (Routine) Timeframe: [id number] Location: None Selected Ordered By: Dr. Carlos Camp Referrals / Follow Up: Dora Soliz DO [Primary Care Provider] - Disposition Disposition (needs filled in before D/C Order can be placed): Home Health Service
== END 2022-01-17 17:58 | disposition home health service (06) | DRG 329 ==
PROVIDERS: Anesthesiology; Admitting Provider Surgery; PCP Family Medicine; Referring Provider Surgery; Visit Provider Surgery
PROC: 0D1E4Z4 Bypass Large Intestine to Cutaneous, Percutaneous Endoscopic Approach (ICD-10-PCS; CPT 44188; principal; 2022-01-14 12:40)
DX: K59.01 Slow transit constipation (principal); L89.214 Pressure ulcer of right hip, stage 4; L89.224 Pressure ulcer of left hip, stage 4; G35 Multiple sclerosis; Z87.891 Personal history of nicotine dependence
CPT/HCPCS: 36415; 80048; 85025; 85610; 85730; 86850; 86900; 86901; 88307; 93005; 97162; 97166; 97802; J7030; J7120; A4216; C1760; J2405

== ENCOUNTER 2022-02-10 11:15 | Outpatient (RCR) | payer OTHER, SELFPAY ==
[2018-02-01 11:47] VITALS: BMI 15.0
[2022-01-14 00:20] VITALS: BP 104/69; PULSE 70; RESP 18; TEMP 36.4
[2022-01-20 11:24] VITALS: TEMP 36.2
--- NOTE | 2022-01-20 12:27 | PCM.WC.PN ---
History of Present Illness Date of Service: 01/20/22 Chief Complaint: Nonhealing sacral ulcer, stage IV; pressure injuries to bilateral hips History of Wound: The patient is a 56-year-old who [facility] due to a chronic, non-healing stage IV sacral pressure ulcer, and non healing stage IV pressure ulcers to her bilateral hips. She has a history of multiple sclerosis and has been wheelchair-bound for about 16 years. She has been seen by this wound center in the past, and was referred to Dr. Bond at [facility] for surgical intervention to her wounds in 2020. She states due to insurance changes she is no longer able to see to [facility], and her management has resumed at our facility. She had a recent hospitalization from 07/12/21 - 07/18/21 for UTI. A sacral wound culture was obtained on 07/16/21 which was positive for E. coli, Enterococcus faecalis, Corynebacterium striatum and Bacteroides fragilis. She was started on Augmentin on 07/30/21, which was sensitive to all the bacterial growth, but she did not tolerate it because it caused her severe diarrhea, therefore she stopped taking it. She had an Intrathecal Baclofen Pain pump placed 08/02/21. Wound cultures of left hip ulcer from 12/16/21 - Positive for Staphylococcus aureus and Strep anginosus. Surgery on 01/14/22 for Laparoscopic sigmoid colectomy with Tello end colostomy. Wound care - [facility] covered with gauze daily to her left hip, sacral ulcer and right hip daily after washing with soap and water. Place barrier cream on left hip and right ischial area that had a pressure sore and home health has been placing silicone boarder dressings over these areas. Wound culture obtained 10/14/21 which showed Staphylococcus aureus, very rare amount. She has recently been on so many antibiotics due positive urine cultures, that there is no need to treat this culture, plus it most likely is skin contaminant. She states her appetite is good. She is drinking Leobardo and a protein shake daily. Progress of Wound: Left hip tunnel with depth into the muscle and the left periwound now is also and ulcer. Sacral ulcer is worse and into the muscle. Right hip ulcer is smaller in size. She had a colostomy placed last week. She states that she has not had a BM since then. Hopefully this will help her manage her BMs better so it will improve her nutrition along with not getting stool against her ulcers. Objective Data Objective Data Vital Signs: Vital Signs Temp Pulse Resp BP 97.2 F L 70 18 104/69 01/20/22 11:24 01/14/22 00:20 01/14/22 00:20 01/14/22 00:20 Charges/Coding Procedures Integumentary [id number]: [id number] Natalia musc/fascia 20 sq cm/< (left hip ulcer and sacral ulcer) Multi Select Codes Integumentary Integumentary CPT Codes: 04145 Natalia subq tissue 20 sq cm/< (right hip and left hip cydney wound ulcer) Debridement Note Debridement Note Wound debrided: Sacral ulcer Wound Grade/Stage: Stage IV Type of Debridement: Excisional debridement Anesthesia Used: 5% Lidocaine Gel Depth: Down to and including healthy tissue, in the subcutaneous layer and to muscle Percentage of wound debrided: 100 Instrument Used: 5mm curette Tissue Removed: Non viable tissue and slough into the muscle Severity: Fat Layer Exposed Amount of bleeding with debridement: Mild Bleeding Controlled with: Pressure and Compression and gauze Patient tolerated procedure: Patient tolerated procedure well Post-Debridement Measurements and Additional Note: Post-Debridement Measurements/Treatment REA - Nurse 1 - General Ulcer Assessment Start: 01/20/22 11:23 Freq: Status: Active Protocol: ASHLEY Activity Type Activity Date Activity User E-sign Co-sign Detail Recorded Client Recorded Date Recorded By Document 01/20/22 11:24 MAXIM [id number] 01/20/22 11:28 MAXIM 01/20/22 11:24 - Today's Visit Information Type of service 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 Any new allergies or adverse reactions No Had a fall/change in ADL's that may No increase risk of falls Signs or symptoms of abuse and/or No neglect since last visit Have you been in the hospital since your No last visit? Has dressing in place as prescribed Yes Has compression in place as prescribed N/A Has offloadiing in place as prescribed N/A Experienced any changes in pain level or No management Left Footwear Other Footwear (Comment) Right Footwear Other Footwear (Comment) Pain Scale: 0-10 Numeric Is Patient Pain Free? No WC - Nurse 1 - General Ulcer Measurement Start: 01/20/22 11:23 Freq: Status: Active Protocol: Activity Type Activity Date Activity User E-sign Co-sign Detail Recorded Client Recorded Date Recorded By Document 01/20/22 11:24 MAXIM [id number] 01/20/22 11:28 MAXIM 01/20/22 11:24 Wound Center Nurse 1 # 3 LEFT HIP -Combined with other wound No -Current Size (cm) - Length 2.5 -Current Size (cm) - Width 4 -Current Size (cm) - Depth 1 -Total Square Cm 10.0 -Date of Last Picture (Recall this 01/20/22 field) -Photo Taken Yes -Tunneling No -Undermining/Tunneling No -Circular Undermining No -Change in Wound Grade/Stage No -Exudate Amt Medium -Exudate Type Serosanguineous -Granulation Amt Medium (34-66%) -Granulation Quality Hyper- granulation -Slough/Fibrin No -Structure Exposed N/A -Texture (Cydney-wound Skin Appearance) No Abnormality, Assessed -Moisture (Cydney-wound Skin Appearance) No Abnormality, Assessed -Color (Cydney-wound Skin Appearance) No Abnormality, Assessed -Temperature (Cydney-wound Skin No Abnormality Appearance) (Pt Warm) -Tenderness on Palpation (Cydney-wound No Skin Appearance) -Ulcer Cleansing Rinsed/ Irrigated with Saline -Foul Odor after Cleansing No -Anesthetic Used 4% Lidocaine Solution #2- R HIP -Combined with other wound No -Current Size (cm) - Length 0.2 -Current Size (cm) - Width 0.5 -Current Size (cm) - Depth 0.5 -Total Square Cm 0.10 -Photo Taken Yes -Tunneling No -Undermining/Tunneling No -Circular Undermining No -Change in Wound Grade/Stage No -Exudate Amt Medium -Exudate Type Serosanguineous -Wound Margin Distinct, Outline Attached -Granulation Amt None Present (0 %) -Granulation Quality Hyper- granulation -Slough/Fibrin No -Necrosis Amt None Present (0 %) -Structure Exposed N/A -Texture (Cydney-wound Skin Appearance) No Abnormality, Assessed -Moisture (Cydney-wound Skin Appearance) No Abnormality, Assessed -Color (Cydney-wound Skin Appearance) No Abnormality, Assessed -Temperature (Cydney-wound Skin No Abnormality Appearance) (Pt Warm) -Tenderness on Palpation (Cydney-wound No Skin Appearance) -Ulcer Cleansing Rinsed/ Irrigated with Saline -Foul Odor after Cleansing No -Anesthetic Used 5% Lidocaine Gel #1 Sacral cluster -Combined with other wound No -Current Size (cm) - Length 3 -Current Size (cm) - Width 3 -Current Size (cm) - Depth 0.5 -Total Square Cm 9 -Photo Taken No -Tunneling No -Undermining/Tunneling No -Circular Undermining No -Change in Wound Grade/Stage No -Exudate Amt None Present -Exudate Type Serosanguineous -Wound Margin Distinct, Outline Attached -Granulation Amt None Present (0 %) -Granulation Quality Hyper- granulation -Slough/Fibrin No -Necrosis Amt None Present (0 %) -Structure Exposed N/A -Texture (Cydney-wound Skin Appearance) No Abnormality, Assessed -Moisture (Cydney-wound Skin Appearance) No Abnormality, Assessed -Color (Cydney-wound Skin Appearance) No Abnormality, Assessed -Temperature (Cydney-wound Skin No Abnormality Appearance) (Pt Warm) -Tenderness on Palpation (Cydney-wound No Skin Appearance) -Ulcer Cleansing Rinsed/ Irrigated with Saline -Foul Odor after Cleansing No -Anesthetic Used 5% Lidocaine Gel WC - Nurse 2 - General Ulcer CM Notes Start: 01/20/22 11:23 Freq: Status: Active Protocol: Activity Type Activity Date Activity User E-sign Co-sign Detail Recorded Client Recorded Date Recorded By Document 01/20/22 11:47 JOANNA [id number] 01/20/22 12:03 JOANNA 01/20/22 11:47 Wound Center Nurse 2 5-left hip cydney-ulcer -Time 11:53 -Correct Patient Yes -Correct Side, Site, Position Yes -Correct Procedure Yes -Procedure Performed Yes -Type of Procedure Debridement -Clinical Debridement Subcutaneous -Tissue Removed Subcutaneous -Post Debridement (cm) - Length 2.1 -Post Debridement (cm) - Width 1.8 -Post Debridement (cm) - Depth 0.3 -Total Square (Post) (cm) 3.78 -Area of Debridement (cm) - Length 2.1 -Area of Debridement (cm) - Width 1.8 -Total Square (Area) (cm) 3.78 -Tunneling No -Undermining/Tunneling No -Circular Undermining No -Wound/Ulcer Outcome Not Healed -Ulcer Cleansing Rinsed/ Irrigated with Saline -Foul Odor after Cleansing No -Bioengineered Tissue No -Bleeding Controlled with Pressure -Treatment Response Procedure Tolerated Well -Offloading No -Pressure Reduction Wheelchair cushion -Debridement - Subq, 1st 20sq cm No # 3 LEFT HIP -Time 11:48 -Correct Patient Yes -Correct Side, Site, Position Yes -Correct Procedure Yes -Procedure Performed Yes -Type of Procedure Incision & Drainage -Clinical Debridement Muscle / Fascia -Tissue Removed Muscle -Post Debridement (cm) - Length 0.9 -Post Debridement (cm) - Width 0.9 -Post Debridement (cm) - Depth 1.2 -Total Square (Post) (cm) 0.81 -Area of Debridement (cm) - Length 0.9 -Area of Debridement (cm) - Width 0.9 -Total Square (Area) (cm) 0.81 -Tunneling No -Undermining/Tunneling No -Circular Undermining No -Wound/Ulcer Outcome Not Healed -Ulcer Cleansing Rinsed/ Irrigated with Saline -Foul Odor after Cleansing No -Bioengineered Tissue No -Bleeding Controlled with Pressure -Treatment Response Procedure Tolerated Well -Offloading No -Pressure Reduction Wheelchair cushion -Debridement - Muscle / Fascia, 1st No 20sq cm #2- R HIP -Time 11:48 -Correct Patient Yes -Correct Side, Site, Position Yes -Correct Procedure Yes -Procedure Performed Yes -Type of Procedure Debridement -Clinical Debridement Subcutaneous -Tissue Removed Subcutaneous -Post Debridement (cm) - Length 0.3 -Post Debridement (cm) - Width 0.6 -Post Debridement (cm) - Depth 0.5 -Total Square (Post) (cm) 0.18 -Area of Debridement (cm) - Length 0.3 -Area of Debridement (cm) - Width 0.6 -Total Square (Area) (cm) 0.18 -Tunneling No -Undermining/Tunneling No -Circular Undermining No -Wound/Ulcer Outcome Not Healed -Ulcer Cleansing Rinsed/ Irrigated with Saline -Foul Odor after Cleansing No -Bioengineered Tissue No -Bleeding Controlled with Pressure -Treatment Response Procedure Tolerated Well -Offloading No -Debridement - Subq, 1st 20sq cm Yes #1 Sacral cluster -Time 11:49 -Correct Patient Yes -Correct Side, Site, Position Yes -Correct Procedure Yes -Procedure Performed Yes -Type of Procedure Debridement -Clinical Debridement Muscle / Fascia -Tissue Removed Muscle -Post Debridement (cm) - Length 3.3 -Post Debridement (cm) - Width 2.5 -Post Debridement (cm) - Depth 0.5 -Total Square (Post) (cm) 8.25 -Area of Debridement (cm) - Length 3.3 -Area of Debridement (cm) - Width 2.5 -Total Square (Area) (cm) 8.25 -Tunneling No -Undermining/Tunneling No -Circular Undermining No -Wound/Ulcer Outcome Not Healed -Ulcer Cleansing Rinsed/ Irrigated with Saline -Foul Odor after Cleansing No -Bioengineered Tissue No -Bleeding Controlled with Pressure -Treatment Response Procedure Tolerated Well -Offloading No -Debridement - Muscle / Fascia, 1st Yes 20sq cm Pain Scale: 0-10 Numeric Is Patient Pain Free? Yes WC - Nurse 3 - General Ulcer D/C NN Start: 01/20/22 11:23 Freq: Status: Active Protocol: Activity Type Activity Date Activity User E-sign Co-sign Detail Recorded Client Recorded Date Recorded By Document 01/20/22 12:08 CONCETTA [id number] 01/20/22 12:11 CONCETTA 01/20/22 12:08 Wound Care Nurse 3 5-left hip cydney-ulcer -Ulcer Cleansing Rinsed/ Irrigated with Saline -Primary Dressing Applied Aquacel AG 4x4 -Primary Dressing Covered/Secured with Dry Gauze, Secured with Tape -Aquacel AG 4x4 1 # 3 LEFT HIP -Ulcer Cleansing Rinsed/ Irrigated with Saline -Other Dressing aquacel ag -Primary Dressing Covered/Secured with Dry Gauze, Secured with Tape #2- R HIP -Ulcer Cleansing Rinsed/ Irrigated with Saline -Primary Dressing Applied Nugauze, Iodoform -Primary Dressing Covered/Secured with Dry Gauze, Secured with Tape -Nugauze, Iodoform 1/4 1 #1 Sacral cluster -Ulcer Cleansing Rinsed/ Irrigated with Saline -Other Dressing aquacel ag -Primary Dressing Covered/Secured with Dry Gauze, Secured with Tape Treatment Response Procedure Tolerated Well Pain Scale: 0-10 Numeric Is Patient Pain Free? Yes Teaching: Wound Center Dressing Your Wound -Person Taught Patient -Teaching Method Discussion, Demonstration -Response to teaching Verbalize understanding WC - Visit Discharge Discharge Condition Stable Ambulatory Status Wheelchair Transportation Private Auto Medication Reconcilliation completed & No provided to patient/care provider Clinical Summary of Care Provided Yes Additional Wound Wound debrided: hip ulcer Laterality: Right Wound Grade/Stage: Stage 4 Type of Debridement: Excisional debridement Anesthesia Used: 5% Lidocaine Gel Depth: Down to and including healthy tissue and in the subcutaneous layer Percentage of wound debrided: 100 Instrument Used: 3mm curette Tissue Removed: Non viable tissue and slough Severity: Fat Layer Exposed Amount of bleeding with debridement: Mild Bleeding Controlled with: Pressure and Compression and gauze Patient tolerated procedure: Patient tolerated procedure well Additional Wound Wound debrided: hip ulcer Laterality: Left Wound Grade/Stage: Stage IV Type of Debridement: Excisional debridement Anesthesia Used: 5% Lidocaine Gel Depth: Down to and including healthy tissue, in the subcutaneous layer and to muscle Percentage of wound debrided: 100 Instrument Used: 3mm curette Tissue Removed: Non viable tissue and slough, into the muscle Severity: Limited To Skin Breakdown Amount of bleeding with debridement: Mild Bleeding Controlled with: Pressure and Compression and gauze Additional Wound Wound debrided: Hip cydney wound ulcer Laterality: Left Wound Grade/Stage: Stage III Type of Debridement: Excisional debridement Anesthesia Used: 5% Lidocaine Gel Depth: Down to and including healthy tissue and in the subcutaneous layer Percentage of wound debrided: 100 Instrument Used: 3mm curette Tissue Removed: Devitalized tissue and slough Severity: Fat Layer Exposed Amount of bleeding with debridement: Mild Bleeding Controlled with: Compression and gauze Patient tolerated procedure: Patient tolerated procedure well Assessment/Plan Assessment/Plan (1) Pressure injury of sacral region, stage 4: CODE(S): L89.154 - Pressure ulcer of sacral region, stage 4 (2) Pressure injury of left hip, stage 4: CODE(S): L89.224 - Pressure ulcer of left hip, stage 4 (3) Pressure injury of right hip, stage 4: CODE(S): L89.214 - Pressure ulcer of right hip, stage 4 (4) Multiple sclerosis: CODE(S): G35 - Multiple sclerosis (5) History of left breast cancer: CODE(S): Z85.3 - Personal history of malignant neoplasm of breast (6) Debility: CODE(S): R53.81 - Other malaise (7) Muscle spasm: CODE(S): M62.838 - Other muscle spasm (8) Weakness: CODE(S): R53.1 - Weakness PLAN: Plan Patient was seen and evaluated at the wound healing center today. A debridement was performed as previously documented. Patient is wheelchair bound and does not off load during the day. She often is in her wheel chair for over 12 hours. Wound care - Aquacel-Ag covered with gauze to the sacral ulcer. Aquacel-Ag to the tunnel of the left hip and to the left hip cydney wound ulcer. / iodoform gauze to the right hip ulcer. Wound culture obtained on 12/16/21 which of the left hip ulcer, which was positive for Staphylococcus aureus and Strep anginosus and she was started on Amoxicillin. Wound culture obtained on 10/14/21, of the left hip which showed Staphylococcus aureus, very rare amount. She has recently been on so many antibiotics due positive urine cultures, that there is no need to treat this culture, plus it most likely is skin contaminant. She had a wound culture on 07/16/32, while she was hospitalized, which was positive for E. coli, Enterococcus faecalis, Corynebacterium striatum and Bacteroides fragilis. She was started on Augmentin, but she stopped it because it caused her severe diarrhea. Encouraged increased fluids and protein intake.? Her MS is managed by Dr. Rivera at the [facility].? She had a colostomy placed with Dr. Liriano on 01/14/22. She is doing well but has not had a BM, instructed her to call his office to notify them of this. She may need to increase her stool softener to daily since she is on the Baclofen pump for muscle spasms. She has not seen a urologist to discuss a suprapubic catheter due to recurrent UTI from having a kaye. She has been limiting what she eats during the day to prevent having a BM and sitting in it until she has help to get cleaned up. Discussed that proper nutrition is very important for wound healing. She will follow up in 3 weeks. She is to call or come in sooner if she develops any problems.
--- NOTE | 2022-01-27 15:26 | WC ---
So from [facility] called concerned about patient's sacral ulcer has an odor to it with slight green drainage and slough to ulcer. Called So back and asked if patient has a fever or warmth to the area. Vital signs are stable and no warmth. Kia Mohanell aware of findings and a picture of the ulcer was sent to Kia from [facility] on a HIPPA compliant program. After looking at the ulcer, Kia actually felt that the ulcer looked better from last wound center visit. She said without a debridement and not getting the patient seen this week due to no transportation, she does not want a wound culture done. Continue watching for s/s of infection and to make sure the ulcer is getting washed with soap and water rather than saline. Called So and left a voicemail with details. If any s/s get worse before her wound center visit to report to the ED for evaluation. All of this was left on voicemail for So.
[2022-02-10 10:57] VITALS: BP 91/64; PULSE 81; TEMP 35.9
--- NOTE | 2022-02-10 12:01 | PN.PCM_ITS ---
History of Present Illness Date of Service: 02/10/22 Chief Complaint: Nonhealing sacral ulcer, stage IV; pressure injuries to b ilateral hips History of Wound: The patient is a 56-year-old who [facility] due to a chronic, non-healing stage IV sacral pressure ulcer, and non healing stage IV pressure ulcers to her bilateral hips. She has a history of multiple sclerosis and has been wheelchair-bound for about 16 years. She has been seen by this wound center in the past, and was referred to Dr. Bond at [facility] for surgical intervention to her wounds in 2020. She states due to insurance changes she is no longer able to see to [facility], and her management has resumed at our facility. She had a recent hospitalization from 07/12/21 - 07/18/21 for UTI. A sacral wound culture was obtained on 07/16/21 which was positive for E. coli, Enterococcus faecalis, Corynebacterium striatum and Bacteroides fragilis. She was started on Augmentin on 07/30/21, which was sensitive to all the bacterial growth, but she did not tolerate it because it caused her severe diarrhea, therefore she stopped taking it. She had an Intrathecal Baclofen Pain pump placed 08/02/21. Wound cultures of left hip ulcer from 12/16/21 - Positive for Staphylococcus aureus and Strep anginosus. Surgery on 01/14/22 for Laparoscopic sigmoid colectomy with Tello end colostomy. Wound care - [facility] covered with gauze daily to her left hip, sacral ulcer and right hip daily after washing with soap and water. Place barrier cream on left hip and right ischial area that had a pressure sore and home health has been placing silicone boarder dressings over these areas. Wound culture obtained 10/14/21 which showed Staphylococcus aureus, very rare amount. She has recently been on so many antibiotics due positive urine cultures, that there is no need to treat this culture, plus it most likely is skin contaminant. She states her appetite is good. She is drinking Leobardo and a protein shake daily. Progress of Wound: Left hip tunnel with depth into the muscle and now is a cluster with the cydney wound being an ulcer that has eschar over the new area. The sacral ulcer is worse and into the muscle with increased drainage and increased non viable t issue. Right hip ulcer tunnel is improving but there is now necrotic tissue distal to the ulcer, therefore it is now a cluster. She states she is eating better since she had her colostomy and she is now having 2 BMs a day. She is feeling weak today and is having difficulty with lifting things. When this occurs, she states she typically has an infection. She states that her urine looks clear right now, so she is concerned about her ulcers. She states she is having increased drainage with an odor from the sacral ulcer. Cultured the sacral ulcer and the right hip cluster ulcer. Objective Data Objective Data Vital Signs: Vital Signs Temp Pulse Resp BP 96.7 F L 81 18 91/64 02/10/22 10:57 02/10/22 10:57 01/14/22 00:20 02/10/22 10:57 Charges/Coding Procedures Integumentary 111xxx-113xx: 63585 Natalia musc/fascia 20 sq cm/< (left hip ulcer cluster and sacral ulcer) Add On Codes: 71296 Natalia musc/fascia add-on Multi Select Codes Integumentary Integumentary CPT Codes: 69713 Natalia subq tissue 20 sq cm/< (right hip ulcer cluster) Debridement Note Debridement Note Wound debrided: Hip ulcer cluster Laterality: Right Wound Grade/Stage: Stage IV Type of Debridement: Excisional debridement Anesthesia Used: 5% Lidocaine Gel Depth: Down to and including healthy tissue and in the subcutaneous layer Percentage of wound debrided: 100 Instrument Used: 5mm curette Tissue Removed: Devitalized tissue and slough Severity: Fat Layer Exposed Amount of bleeding with debridement: Mild Bleeding Controlled with: Compression and gauze Patient tolerated procedure: Patient tolerated procedure well Post-Debridement Measurements and Additional Note: Post-Debridement Measurements/Treatment - Nurse 1 - General Ulcer Assessment Start: 01/20/22 11:23 Freq: Status: Active Protocol: ASHLEY Activity Type Activity Date Activity User E-sign Co-sign Detail Recorded Client Recorded Date Recorded By Document 01/20/22 11:24 MAXIM [id number] 01/20/22 11:28 AK Document 02/10/22 10:57 VAHE [id number] 02/10/22 11:08 VAHE 01/20/22 02/10/22 11:24 10:57 - Today's Visit Information Type of service Follow-up Visit Follow-up Visit (Physician/CELL ASSEMBLY PINNER (Physician/CELL ASSEMBLY PINNER ) ) Arrival Mode Wheelchair Wheelchair Patient Identification Verified (Name & Yes Yes ) Patient Requires Transmission-Based No Precautions Safety Precautions NA Vital Signs Temperature (97.8 F-99.1 F) 97.2 F L 96.7 F L Temperature Source Temporal Temporal Pulse Rate (60-100) 81 Pulse Location Monitor Blood Pressure (90/60-120/80) 91/64 Blood Pressure Mean (mm Hg) 73 Source Monitor Position Semi-Fowlers Blood Pressure Location Right Arm History Since Last Visit- (Skip if this is Patient's initial visit) Have you changed medications since your No No last visit? Any new allergies or adverse reactions No No Had a fall/change in ADL's that may No No increase risk of falls Signs or symptoms of abuse and/or No No neglect since last visit Have you been in the hospital since your No No last visit? Has dressing in place as prescribed Yes Yes Has compression in place as prescribed N/A N/A Has offloadiing in place as prescribed N/A N/A Experienced any changes in pain level or No No management Left Footwear Other Footwear Regular Shoe (Comment) Right Footwear Other Footwear Regular Shoe (Comment) Pain Scale: 0-10 Numeric Is Patient Pain Free? No Yes WC - Nurse 1 - General Ulcer Measurement Start: 01/20/22 11:23 Freq: Status: Active Protocol: Activity Type Activity Date Activity User E-sign Co-sign Detail Recorded Client Recorded Date Recorded By Document 01/20/22 11:24 MAXIM [id number] 01/20/22 11:28 AK Document 02/10/22 10:57 VAHE [id number] 02/10/22 11:08 VAHE 01/20/22 02/10/22 11:24 10:57 Wound Center Nurse 1 5-left hip cydney-ulcer -Current Size (cm) - Length 2 -Current Size (cm) - Width 3.2 -Current Size (cm) - Depth 0.1 -Total Square Cm 6.4 -Wound Margin Distinct, Outline Attached -Texture (Cydney-wound Skin Appearance) Assessed, Scarring -Moisture (Cydney-wound Skin Appearance) No Abnormality, Assessed -Color (Cydney-wound Skin Appearance) No Abnormality, Assessed -Temperature (Cydney-wound Skin No Abnormality Appearance) (Pt Warm) -Tenderness on Palpation (Cydney-wound No Skin Appearance) -Ulcer Cleansing Rinsed/ Irrigated with Saline -Foul Odor after Cleansing No -Anesthetic Used 5% Lidocaine Gel # 3 LEFT HIP CLUSTER -Combined with other wound No -Current Size (cm) - Length 2.5 4 -Current Size (cm) - Width 4 2 -Current Size (cm) - Depth 1 1.8 -Total Square Cm 10.0 8 -Date of Last Picture (Recall this 01/20/22 field) -Photo Taken Yes -Tunneling No -Undermining/Tunneling No -Circular Undermining No -Change in Wound Grade/Stage No -Exudate Amt Medium None Present -Exudate Type Serosanguineous Serosanguineous -Wound Margin Distinct, Outline Attached -Granulation Amt Medium (34-66%) -Granulation Quality Hyper- granulation -Slough/Fibrin No -Necrosis Amt Large (67-100%) -Necrotic Tissue Type Eschar -Structure Exposed N/A -Texture (Cydney-wound Skin Appearance) No Abnormality, Assessed, Assessed Scarring -Moisture (Cydney-wound Skin Appearance) No Abnormality, No Abnormality, Assessed Assessed -Color (Cydney-wound Skin Appearance) No Abnormality, No Abnormality, Assessed Assessed -Temperature (Cydney-wound Skin No Abnormality No Abnormality Appearance) (Pt Warm) (Pt Warm) -Tenderness on Palpation (Cydney-wound No No Skin Appearance) -Ulcer Cleansing Rinsed/ Rinsed/ Irrigated with Irrigated with Saline Saline -Foul Odor after Cleansing No No -Anesthetic Used 4% Lidocaine 5% Lidocaine Solution Gel #2- R HIP CLUSTER -Combined with other wound No -Current Size (cm) - Length 0.2 0.1 -Current Size (cm) - Width 0.5 0.4 -Current Size (cm) - Depth 0.5 0.5 -Total Square Cm 0.10 0.04 -Photo Taken Yes -Tunneling No -Undermining/Tunneling No -Circular Undermining No -Change in Wound Grade/Stage No -Exudate Amt Medium Small -Exudate Type Serosanguineous Serosanguineous -Wound Margin Distinct, Distinct, Outline Outline Attached Attached -Granulation Amt None Present (0 Medium (34-66%) %) -Granulation Quality Hyper- [place] granulation -Slough/Fibrin No -Necrosis Amt None Present (0 Medium (34-66%) %) -Necrotic Tissue Type Adherent Slough -Structure Exposed N/A -Texture (Cydney-wound Skin Appearance) No Abnormality, Assessed, Assessed Scarring -Moisture (Cydney-wound Skin Appearance) No Abnormality, No Abnormality, Assessed Assessed -Color (Cydney-wound Skin Appearance) No Abnormality, No Abnormality, Assessed Assessed -Temperature (Cydney-wound Skin No Abnormality No Abnormality Appearance) (Pt Warm) (Pt Warm) -Tenderness on Palpation (Cydney-wound No No Skin Appearance) -Ulcer Cleansing Rinsed/ Rinsed/ Irrigated with Irrigated with Saline Saline -Foul Odor after Cleansing No No -Anesthetic Used 5% Lidocaine 5% Lidocaine Gel Gel #1 Sacral cluster -Combined with other wound No -Current Size (cm) - Length 3 3 -Current Size (cm) - Width 3 1 -Current Size (cm) - Depth 0.5 1 -Total Square Cm 9 3 -Photo Taken No -Tunneling No -Undermining/Tunneling No -Circular Undermining No -Change in Wound Grade/Stage No -Exudate Amt None Present -Exudate Type Serosanguineous -Wound Margin Distinct, Distinct, Outline Outline Attached Attached -Granulation Amt None Present (0 Small (1-33%) %) -Granulation Quality Hyper- [place] granulation -Slough/Fibrin No -Necrosis Amt None Present (0 None Present (0 %) %) -Structure Exposed N/A -Texture (Cydney-wound Skin Appearance) No Abnormality, Assessed, Assessed Scarring -Moisture (Cydney-wound Skin Appearance) No Abnormality, No Abnormality, Assessed Assessed -Color (Cydney-wound Skin Appearance) No Abnormality, No Abnormality, Assessed Assessed -Temperature (Cydney-wound Skin No Abnormality No Abnormality Appearance) (Pt Warm) (Pt Warm) -Tenderness on Palpation (Cydney-wound No No Skin Appearance) -Ulcer Cleansing Rinsed/ Rinsed/ Irrigated with Irrigated with Saline Saline -Foul Odor after Cleansing No No -Anesthetic Used 5% Lidocaine 5% Lidocaine Gel Gel WC - Nurse 2 - General Ulcer CM Notes Start: 01/20/22 11:23 Freq: Status: Active Protocol: Activity Type Activity Date Activity User E-sign Co-sign Detail Recorded Client Recorded Date Recorded By Document 01/20/22 11:47 JF [id number] 01/20/22 12:03 Document 02/10/22 11:27 [id number] 02/10/22 11:51 JF 01/20/22 02/10/22 11:47 11:27 Wound Center Nurse 2 5-left hip cydney-ulcer -Time 11:53 11:28 -Correct Patient Yes Yes -Correct Side, Site, Position Yes Yes -Correct Procedure Yes Yes -Procedure Performed Yes Yes -Type of Procedure Debridement Debridement -Clinical Debridement Subcutaneous Subcutaneous -Tissue Removed Subcutaneous Subcutaneous -Post Debridement (cm) - Length 2.1 -Post Debridement (cm) - Width 1.8 -Post Debridement (cm) - Depth 0.3 -Total Square (Post) (cm) 3.78 -Area of Debridement (cm) - Length 2.1 -Area of Debridement (cm) - Width 1.8 -Total Square (Area) (cm) 3.78 -Tunneling No No -Undermining/Tunneling No No -Circular Undermining No No -Wound/Ulcer Outcome Not Healed Converted -Ulcer Cleansing Rinsed/ Rinsed/ Irrigated with Irrigated with Saline Saline -Foul Odor after Cleansing No No -Bioengineered Tissue No No -Bleeding Controlled with Pressure Pressure -Treatment Response Procedure Procedure Tolerated Well Tolerated Well -Offloading No No -Pressure Reduction Wheelchair cushion -Debridement - Subq, 1st 20sq cm No No # 3 LEFT HIP CLUSTER -Time 11:48 11:38 -Correct Patient Yes Yes -Correct Side, Site, Position Yes Yes -Correct Procedure Yes Yes -Procedure Performed Yes Yes -Type of Procedure Incision & Debridement Drainage -Clinical Debridement Muscle / Fascia Muscle / Fascia -Tissue Removed Muscle Muscle -Post Debridement (cm) - Length 0.9 5.0 -Post Debridement (cm) - Width 0.9 4.5 -Post Debridement (cm) - Depth 1.2 1.0 -Total Square (Post) (cm) 0.81 22.50 -Area of Debridement (cm) - Length 0.9 5.0 -Area of Debridement (cm) - Width 0.9 4.5 -Total Square (Area) (cm) 0.81 22.50 -Tunneling No No -Undermining/Tunneling No No -Circular Undermining No No -Wound/Ulcer Outcome Not Healed Not Healed -Ulcer Cleansing Rinsed/ Rinsed/ Irrigated with Irrigated with Saline Saline -Foul Odor after Cleansing No No -Bioengineered Tissue No No -Bleeding Controlled with Pressure Pressure -Treatment Response Procedure Procedure Tolerated Well Tolerated Well -Offloading No No -Assistive Device(s) Wheelchair -Pressure Reduction Wheelchair Wheelchair cushion cushion, Specialty bed -Debridement - Muscle / Fascia, 1st No Yes 20sq cm -Debridement, Muscle/Fascia, ea addt'l 1 20sq cm or part thereof #2- R HIP CLUSTER -Time 11:48 11:28 -Correct Patient Yes Yes -Correct Side, Site, Position Yes Yes -Correct Procedure Yes Yes -Procedure Performed Yes Yes -Type of Procedure Debridement Debridement -Clinical Debridement Subcutaneous Subcutaneous -Tissue Removed Subcutaneous Subcutaneous -Post Debridement (cm) - Length 0.3 5.1 -Post Debridement (cm) - Width 0.6 3.5 -Post Debridement (cm) - Depth 0.5 0.3 -Total Square (Post) (cm) 0.18 17.85 -Area of Debridement (cm) - Length 0.3 5.1 -Area of Debridement (cm) - Width 0.6 3.5 -Total Square (Area) (cm) 0.18 17.85 -Tunneling No No -Undermining/Tunneling No No -Circular Undermining No No -Wound/Ulcer Outcome Not Healed Not Healed -Ulcer Cleansing Rinsed/ Rinsed/ Irrigated with Irrigated with Saline Saline -Foul Odor after Cleansing No No -Bioengineered Tissue No No -Bleeding Controlled with Pressure Pressure -Treatment Response Procedure Tolerated Well -Offloading No -Debridement - Subq, 1st 20sq cm Yes Yes #1 Sacral cluster -Time 11:49 11:28 -Correct Patient Yes Yes -Correct Side, Site, Position Yes Yes -Correct Procedure Yes Yes -Procedure Performed Yes Yes -Type of Procedure Debridement Debridement -Clinical Debridement Muscle / Fascia Muscle / Fascia -Tissue Removed Muscle Muscle -Post Debridement (cm) - Length 3.3 4.2 -Post Debridement (cm) - Width 2.5 3 -Post Debridement (cm) - Depth 0.5 0.6 -Total Square (Post) (cm) 8.25 12.6 -Area of Debridement (cm) - Length 3.3 4.2 -Area of Debridement (cm) - Width 2.5 3.0 -Total Square (Area) (cm) 8.25 12.60 -Tunneling No No -Undermining/Tunneling No No -Circular Undermining No No -Wound/Ulcer Outcome Not Healed Not Healed -Ulcer Cleansing Rinsed/ Rinsed/ Irrigated with Irrigated with Saline Saline -Foul Odor after Cleansing No No -Bioengineered Tissue No No -Bleeding Controlled with Pressure Pressure -Treatment Response Procedure Procedure Tolerated Well Tolerated Well -Offloading No No -Debridement - Muscle / Fascia, 1st Yes No 20sq cm Pain Scale: 0-10 Numeric Is Patient Pain Free? Yes Yes WC - Nurse 3 - General Ulcer D/C NN Start: 01/20/22 11:23 Freq: Status: Active Protocol: Activity Type Activity Date Activity User E-sign Co-sign Detail Recorded Client Recorded Date Recorded By Document 01/20/22 12:08 RB [id number] 01/20/22 12:11 RB Document 02/10/22 11:56 KR [id number] 02/10/22 11:56 KR 01/20/22 02/10/22 12:08 11:56 Wound Care Nurse 3 5-left hip cydney-ulcer -Ulcer Cleansing Rinsed/ Irrigated with Saline -Primary Dressing Applied Aquacel AG 4x4 -Primary Dressing Covered/Secured with Dry Gauze, Secured with Tape -Aquacel AG 4x4 1 # 3 LEFT HIP CLUSTER -Ulcer Cleansing Rinsed/ Rinsed/ Irrigated with Irrigated with Saline Saline -Other Dressing aquacel ag dakins -Primary Dressing Covered/Secured with Dry Gauze, Dry Gauze, Secured with Secured with Tape Tape #2- R HIP CLUSTER -Ulcer Cleansing Rinsed/ Rinsed/ Irrigated with Irrigated with Saline Saline -Primary Dressing Applied Nugauze, Iodoform -Primary Dressing Covered/Secured with Dry Gauze, Dry Gauze, Secured with Secured with Tape Tape -Nugauze, Iodoform 1/4 1 #1 Sacral cluster -Ulcer Cleansing Rinsed/ Irrigated with Saline -Other Dressing aquacel ag -Primary Dressing Covered/Secured with Dry Gauze, Dry Gauze, Secured with Secured with Tape Tape Treatment Response Procedure Tolerated Well Pain Scale: 0-10 Numeric Is Patient Pain Free? Yes Yes Teaching: Wound Center Dressing Your Wound -Person Taught Patient -Teaching Method Discussion, Demonstration -Response to teaching Verbalize understanding WC - Visit Discharge Discharge Condition Stable Stable Ambulatory Status Wheelchair Wheelchair Transportation Private Auto Private Auto Accompanied by sister in law Medication Reconcilliation completed & No provided to patient/care provider Clinical Summary of Care Provided Yes Additional Wound Wound debrided: Sacral ulcer Laterality: Not Applicable Wound Grade/Stage: Stage IV Type of Debridement: Excisional debridement Anesthesia Used: 5% Lidocaine Gel Depth: Down to and including healthy tissue, in the subcutaneous layer and to muscle Percentage of wound debrided: 100 Instrument Used: 5mm curette Tissue Removed: Devitalized tissue and slough Severity: Fat Layer Exposed Amount of bleeding with debridement: Mild Bleeding Controlled with: Pressure and Compression and gauze Patient tolerated procedure: Patient tolerated procedure well Additional Wound Wound debrided: hip ulcer cluster Laterality: Left Wound Grade/Stage: Stage IV Type of Debridement: Excisional debridement Anesthesia Used: 5% Lidocaine Gel Depth: Down to and including healthy tissue, in the subcutaneous layer and to muscle Percentage of wound debrided: 100 Instrument Used: 5mm curette Tissue Removed: Devitalized tissue and slough Severity: Fat Layer Exposed Amount of bleeding with debridement: Mild Bleeding Controlled with: Compression and gauze Patient tolerated procedure: Patient tolerated procedure well Assessment/Plan Assessment/Plan (1) Pressure injury of sacral region, stage 4: CODE(S): L89.154 - Pressure ulcer of sacral region, stage 4 (2) Pressure injury of left hip, stage 4: CODE(S): L89.224 - Pressure ulcer of left hip, stage 4 (3) Pressure injury of right hip, stage 4: CODE(S): L89.214 - Pressure ulcer of right hip, stage 4 (4) Multiple sclerosis: CODE(S): G35 - Multiple sclerosis (5) History of left breast cancer: CODE(S): Z85.3 - Personal history of malignant neoplasm of breast (6) Debility: CODE(S): R53.81 - Other malaise (7) Muscle spasm: CODE(S): M62.838 - Other muscle spasm (8) Weakness: CODE(S): R53.1 - Weakness PLAN: Plan Patient was seen and evaluated at the wound healing center today. Patient is wheelchair bound and does not off load during the day. She often is in her wheel chair for over 12 hours. Wound care - Dakins 0.25% moistened gauze to all the ulcers, pack into the tunnels daily, cover with gauze or ABD. Wound culture obtained today, 02/10/22, of the sacral and the left hip ulcers, depending on the results of the culture, it may necessitate the need for treatment with antibiotics. Wound culture obtained on 12/16/21 which of the left hip ulcer, which was positive for Staphylococcus aureus and Strep anginosus and she was started on Amoxicillin. Wound culture obtained on 10/14/21, of the left hip which showed Staphylococcus aureus, very rare amount. She has recently been on so many antibiotics due positive urine cultures, that there is no need to treat this culture, plus it most likely is skin contaminant. She had a wound culture on 07/16/32, while she was hospitalized, which was positive for E. coli, Enterococcus faecalis, Corynebacterium striatum and Bacteroides fragilis. She was started on Augmentin, but she stopped it because it caused her severe diarrhea. Encouraged increased fluids and protein intake, she states that she has been eating better since her colostomy was placed. Her MS is managed by Dr. Rivera at the [facility].? She had a colostomy placed with Dr. Liriano on 01/14/22. Instructed her to follow up with her PCP about getting a UA/urine culture done since she is having this weakness. Her ulcers have all increased in size. Concerned that she is not offloading as much as she should. She is not able to turn herself when sleeping. She is currently sleeping on a newer Purple brand mattress. Concern that is still is putting too much pressure on these areas. She states that her ulcers started to get worse when she was hospitalized several weeks ago for her colostomy placement. She may need more than just a low air loss air mattress. She may need a rotational bed to help her off load since she is not able to turn herself. Called and spoke to someone at the [facility] about what services they provide and I will order an low air loss mattress as the first step on treating these ulcers. She will follow up in 2 weeks per patient request because it is too difficult on her to come in every week. She is to call or come in sooner if she develops any problems.
== END 2022-02-12 23:59 | disposition home or self-care (01) ==
LOC: WC 11:15
PROVIDERS: PCP Family Medicine; Referring Provider Internal Medicine; Visit Provider Nurse Practitioner Family
DX: L89.154 Pressure ulcer of sacral region, stage 4 (principal); L89.214 Pressure ulcer of right hip, stage 4; L89.224 Pressure ulcer of left hip, stage 4; Z93.3 Colostomy status; G35 Multiple sclerosis; M62.838 Other muscle spasm; R53.81 Other malaise; Z99.3 Dependence on wheelchair; Z79.899 Other long term (current) drug therapy
CPT/HCPCS: 11042; 11043; 11046; 87070; 87075; 87077; 87186; 87205

== ENCOUNTER 2022-03-11 09:48 | Emergency (ER) | payer OTHER, SELFPAY ==
[2018-02-01 11:47] VITALS: BMI 15.0
[2022-03-11 09:34] VITALS: BP 106/62; PULSE 100; RESP 12; TEMP 37.1; O2SAT 93; BMI 15.6
--- NOTE | 2022-03-11 09:44 | EDS_ITS ---
HPI History of Present Illness Chief Complaint: Cold Sx Narrative Narrative: 56-year-old female past medical history of MS, has a baclofen pump states she needs assistance with transfer from her bed to her wheelchair which is usually performed by her son who lives with her. She states that she has had upper respiratory infection type symptoms since yesterday morning when she awoke. She had fever as high as 101 ?F, but has not taken any antipyretics since yesterday evening at 7 PM. She also had nausea and vomiting. She vomited 8 times. She has a colostomy so is unsure if she has had diarrhea. She thinks I think I have COVID or the flu. Her symptoms started with nasal congestion with alternating rhinorrhea, which developed into fever, and cough with shortness of breath. 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, unstageable Pressure injury of right hip, stage 2 Pressure injury of right hip, stage 4 Pressure injury of sacral region, stage 4 Screening for malignant neoplasm of breast Seasonal allergies Uses wheelchair Wears glasses Home Medications cholecalciferol (vitamin D3) 250 mcg (10,000 unit) capsule 5,000 unit PO DAILY supplement 10/09/17 [History Last Taken 07/12/21] dalfampridine 10 mg tablet,extended release,12 hr 10 mg PO BID MS 03/24/18 [History Last Taken 07/19/20] psyllium husk (aspartame) 3.4 gram oral powder packet (Metamucil Fiber Singles) 1 packet PO DAILY Constipation 07/23/20 [History Last Taken 07/12/21] ascorbic acid (vitamin C) 1,000 mg chewable tablet 1 g PO DAILY Check with primary doctor 07/12/21 [History Last Taken 07/12/21] docusate sodium 100 mg capsule (Colace) 100 mg PO QODAY Check with primary doctor 07/12/21 [History Last Taken 07/11/21] zinc 50 mg capsule 50 mg PO DAILY Check with primary doctor 07/12/21 [History Last Taken 07/12/21] Lactobacillus 40-Bifidobact 3-S.thermophilus 100 billion cell capsule (Probiotic) 1 cap PO DAILY Check with primary doctor 07/30/21 [History Last Taken Unknown] Marijuana 3 drp PO/SL TID pain 07/30/21 [History Last Taken Unknown] baclofen 50 mcg/mL intrathecal solution 50 mcg intrathecal DAILY Check with primary doctor 12/26/21 [History Last Taken Unknown] amoxicillin 875 mg tablet 875 mg PO Q12H Check with primary doctor 12/30/21 [History Last Taken Unknown] natalizumab 300 mg/15 mL intravenous solution (Tysabri) 300 mg IV Q28D Check with primary doctor 12/30/21 [History Last Taken Unknown] ciprofloxacin HCl 500 mg tablet (Cipro) 500 mg PO Q12H 14 days #28 tabs 02/12/22 [Rx Last Taken Unknown] amoxicillin 875 mg-potassium clavulanate 125 mg tablet 1 tab PO Q12H #28 tabs 02/17/22 [Rx Last Taken Unknown] ondansetron 4 mg disintegrating tablet 4 mg PO Q6H PRN nausea and vomiting #15 tabs 03/11/22 [Rx Last Taken Unknown] Allergy/AdvReac Type Severity Reaction Status Date / Time clavulanic acid AdvReac Unknown Diarrhea Verified 02/21/22 13:45 [From Augmentin] Family History Aunt Breast cancer Mother Diabetes Surgical History h/o tonsillectomy History of bilateral oophorectomy History of colostomy S/P left mastectomy (~10/12/17) Social History household members: spouse Smoking Status: Former smoker alcohol intake: never ROS ROS ED ROS Narrative Constitutional: Positive fever, no chills. HEENT: No sore throat. No neck pain. No loss of vision. Positive nasal congestion and rhinorrhea. Cardiovascular: No chest pain. No palpitations. No pedal edema. Respiratory: Positive cough, mild shortness of breath. Abdominal: No abdominal pain. Positive nausea. 8 episodes of nonbloody vomiting. Genitourinary: No dysuria. No hematuria. Musculoskeletal: Positive myalgias. Right shoulder and arm arthralgias. Neurologic: No headaches. No dizziness. No lightheadedness. Skin: No rash. No change in color. Psychiatric: No depression. No anxiety. EXAM Physical Exam Narrative Exam Narrative: Afebrile. Vital signs noted. HEENT: Normocephalic. Atraumatic. PERRL, EOMI. Neck soft and supple. No point tenderness or step off. Cardiovascular: Regular rate and rhythm. No murmurs, rubs, or gallops appreciated. Respiratory: No tachypnea. Lungs clear to auscultation bilaterally. Gastrointestinal: Abdomen soft, nontender, with normoactive bowel sounds. No rebound or guarding. Neurological: Awake. Alert. Bilateral weakness in lower extremities consistent with multiple sclerosis. Skin: No rash. Normal color. No pallor. Musculoskeletal: No pedal edema. Bilateral lower extremities flexed at hips and knees with decreased range of motion. Const Vital Signs: 03/11/22 09:34 03/11/22 10:23 Temperature 98.8 F Temperature Source Temporal Pulse Rate 100 Respiratory Rate 12 Blood Pressure 106/62 Blood Pressure Mean 76 Pulse Ox 93 94 Oxygen Delivery Method Room Air Room Air MDM MDM MDM Narrative Medical decision making narrative: Patient is afebrile here. Sepsis work-up was pursued given her history of fever and a pulse of 100. EKG was obtained and interpreted by myself, and it demonstrates normal sinus rhythm at 87 bpm without ectopy or acute ST changes. No STEMI. No significant change from previous dated January 09, 2022. She has a slight leukocytosis of 11.3 which I think is nonspecific, hemoglobin stable at 11.5, platelet count normal at 229. Electrolyte panel shows a creatinine of 0.3 and a normal BUN of 15. Glucose appropriately elevated at 109 with a normal anion gap of 6. Lactic acid is normal at 0.9. LFTs are grossly unremarkable. Lipase is normal at 99, no evidence of acute pancreatitis. Urinalysis is negative for infection. Chest x-ray interpreted by myself shows no acute infiltrate. I do not feel antibiotics are indicated. Respiratory swabs are negative for RSV, COVID, and influenza. At this point in time, I feel she be discharged safely home with follow-up and [id number] medications for her upper respiratory infection. As stated previously, I do not feel antibiotics are currently indicated. She was written a prescription for 15 Zofran ODT's for her nausea and vomiting. Return instructions to the emergency department were reviewed. Disposition is discharged home in stable condition. Lab Data Attestation: I reviewed the patient's lab results. Labs: Laboratory Results - last 24 hr 03/11/22 03/11/22 03/11/22 10:35 10:35 10:35 WBC 11.3 H RBC 3.72 L Hgb 11.5 L Hct 35.4 L MCV 95.2 MCH 30.9 MCHC 32.5 RDW Std Deviation 49.1 H RDW Coeff of Raisa 14.1 Plt Count 229 MPV 10.7 Immature Gran % (Auto) 0.400 Neut % (Auto) 80.3 H Lymph % (Auto) 8.7 L [place] % (Auto) 9.3 Eos % (Auto) 1.1 Baso % (Auto) 0.2 Absolute Neuts (auto) 9.1 H Absolute Lymphs (auto) 0.98 Nucleated RBC % 0.2 Sodium 136 Potassium 3.7 Chloride 104 Carbon Dioxide 26.0 Anion Gap 6 BUN 15 Creatinine 0.33 L Estim Creat Clear Calc 136.43 Est GFR (MDRD) Af Amer 264 Est GFR (MDRD) Non-Af 218 BUN/Creatinine Ratio 45.3 H Glucose 109 H Lactic Acid 0.9 Calcium 9.0 Total Bilirubin 0.40 AST 17 ALT 19 Alkaline Phosphatase 58 Total Protein 6.7 Albumin 2.9 L Globulin 3.8 Albumin/Globulin Ratio 0.8 L Lipase 99 Urine Color Urine Clarity Urine pH Ur Specific [place] Urine Protein Urine Glucose (UA) Urine Ketones Urine Occult Blood Urine Nitrite Urine Bilirubin Urine Urobilinogen Ur Leukocyte Esterase Urine RBC Urine WBC Ur Squamous Epith Cells Calcium Oxalate Crystal Urine Bacteria Urine Mucus Urine Yeast 03/11/22 11:01 WBC RBC Hgb Hct MCV MCH MCHC RDW Std Deviation RDW Coeff of Raisa Plt Count MPV Immature Gran % (Auto) Neut % (Auto) Lymph % (Auto) [place] % (Auto) Eos % (Auto) Baso % (Auto) Absolute Neuts (auto) Absolute Lymphs (auto) Nucleated RBC % Sodium Potassium Chloride Carbon Dioxide Anion Gap BUN Creatinine Estim Creat Clear Calc Est GFR (MDRD) Af Amer Est GFR (MDRD) Non-Af BUN/Creatinine Ratio Glucose Lactic Acid Calcium Total Bilirubin AST ALT Alkaline Phosphatase Total Protein Albumin Globulin Albumin/Globulin Ratio Lipase Urine Color Yellow Urine Clarity Sl. Cloudy Urine pH 8.0 Ur Specific [place] 1.010 Urine Protein Negative Urine Glucose (UA) Normal Urine Ketones Negative Urine Occult Blood 50 H Urine Nitrite Negative Urine Bilirubin Negative Urine Urobilinogen Normal Ur Leukocyte Esterase 25 H Urine RBC 0-5 SEEN Urine WBC 0-5 SEEN Ur Squamous Epith Cells 0-5 SEEN Calcium Oxalate Crystal 1+ Urine Bacteria 1+ Urine Mucus 0 SEEN Urine Yeast 1+ Radiography Diagnostic Testing: Clinical Impression(s) from Imaging Studies Chest X-Ray 03/11/22 10:45 IMPRESSION: No acute findings in the chest and no significant interval change when compared to 03/27/2021. Electronically Signed: Mark Santoyo MD at 11:11 EST , Discharge Plan Triage Chief Complaint: Cold Sx ED Provider: Mark Allen Dx/Rx/DC Orders Clinical Impression: Upper respiratory infection, Nausea and vomiting Instructions: ED URI, Viral, No Abx (Adult), ED Vomiting (Adult) Prescriptions: New ondansetron 4 mg tablet,disintegrating 4 mg PO Q6H PRN (Reason: nausea and vomiting) Qty: 15 0RF No Action baclofen 50 mcg/mL solution 50 mcg intrathecal DAILY Rx Instructions: administer over 24 hrs cholecalciferol (vitamin D3) 10,000 UNIT capsule 5,000 unit PO DAILY dalfampridine 10 MG tablet extended release 12 hr 10 mg PO BID Metamucil Fiber Singles 3.4 gram powder in packet 1 packet PO DAILY docusate sodium [Colace] 100 mg Capsule 100 mg PO QODAY ascorbic acid (vitamin C) 1,000 mg Tablet,Chewable 1 g PO DAILY zinc 50 mg Capsule 50 mg PO DAILY Probiotic 100 billion cell Capsule 1 cap PO DAILY Marijuana 3 drp PO/SL TID amoxicillin 875 mg tablet 875 mg PO Q12H Tysabri 300 mg/15 mL Solution 300 mg IV Q28D Rx Instructions: administer over 60 mins ciprofloxacin HCl [Cipro] 500 mg tablet 500 mg PO Q12H 14 Days Qty: 28 0RF amoxicillin-pot clavulanate 875-125 mg tablet 1 tab PO Q12H Qty: 28 0RF Primary Care Provider: Mario Soliz Referrals: Mario Soliz, [Primary Care Provider] - 3-5 Days if not improving Disposition Disposition: Home, Self Care
[2022-03-11 10:23] VITALS: O2SAT 94
[2022-03-11] MEDS: 0.9% Normal Saline 1,000 ML 999 ML IV (10:24)
[2022-03-11 10:45] LABS: Absolute Lymphocyte Count 0.98 X10^3/uL (0.83-4.51); Absolute Neutrophil Count 9.1 X10^3/uL (2.0-7.7); Basophil# 0.02 X10^3/uL; Basophil% 0.2 % (0-1); Eosinophil# 0.12 X10^3/uL; Eosinophils% 1.1 % (0-5); Hematocrit 35.4 % (37-47); Hemoglobin 11.5 g/dL (12.0-15.0); Lymphocyte # 0.98 X10^3/ul (0.83-4.51); Lymphocyte % 8.7 % (19-41); Mean Corp Hgb Conc 32.5 g/dL (32-36); Mean Corpuscular Hgb 30.9 pg (27.0-32.0); Mean Corpuscular Volume 95.2 fL (81-99); Mean Platelet Vol. 10.7 fl (6.2-12.0); Monocyte# 1.05 X10^3/uL; Monocyte% 9.3 % (0-10); NRBC Flagged by Analyzer 0.2 % (0-5); Neutrophil # 9.05 X10^3/uL (2.7-7.7); Neutrophil % 80.3 % (47-70); Platelet Count 229 K/mm3 (150-450); RBC Distribution Width CV 14.1 % (11.6-14.6); RBC Distribution Width SD 49.1 fl (35.1-43.9); Red Blood Count 3.72 M/mm3 (4.2-5.4); White Blood Count 11.3 K/mm3 (4.4-11.0)
--- NOTE | 2022-03-11 10:45 | RAD_ITS ---
EXAM: XR CHEST, 1 VIEW CLINICAL INDICATION: Fever TECHNIQUE: Frontal view of the chest. This report was created using [employer] report generation technology. COMPARISON: 03/27/2021. FINDINGS: LUNGS AND PLEURAL SPACES: Mild pulmonary hyperinflation. No suspicious infiltrates. No pneumothorax. No effusion. HEART: Unremarkable. Cardiac silhouette not enlarged. MEDIASTINUM: Central airways and mediastinal contour are unremarkable. BONES/JOINTS: Unremarkable. SOFT TISSUES: Surgical clips in the left axilla. RAD/Chest 1 View (Portable) IMPRESSION: No acute findings in the chest and no significant interval change when compared to 03/27/2021. Electronically Signed: Mark Santoyo MD at 11:11 EST ,
[2022-03-11] MEDS: Ondansetron 4 MG/2 ML Vial IV (10:53)
[2022-03-11 11:00] LABS: ALB/GLOB Ratio 0.8 RATIO (0.9-2.4); AST(SGOT) 17 U/L (15-37); Alanine Aminotransfer ALT/SGPT 19 U/L (13-56); Albumin, Serum 2.9 g/dL (3.2-5.0); Alkaline Phosphatase 58 U/L (45-117); Anion Gap 6 (5-15); BUN 15 mg/dL (7-18); BUN/Creat Ratio 45.3 RATIO (10-20); Chloride 104 mmol/L (98-107); Creatinine, Serum 0.33 mg/dL (0.55-1.02); EST Glomerular Filtration Rate 218 mL/min (>60); Est Glom Filt Rate - Afr Amer 264 mL/min (>60); Estimated Creatinine Clearance 136.43 ml/min; Globulin 3.8 g/dL (2.2-4.2); Glucose 109 mg/dL (74-106); Lipase 99 U/L (73-393); Potassium 3.7 mmol/L (3.5-5.1); Protein, Total 6.7 g/dL (6.4-8.2); Sodium Level 136 mmol/L (136-145)
[2022-03-11 11:09] LABS: Mucous, Urine 0 SEEN /hpf (<or=2+)
[2022-03-11 11:14] LABS: Lactic Acid 0.9 mmol/L (0.4-1.9)
[2022-03-11 11:17] LABS: Color, Urine Yellow (Yellow); Glucose, Dipstick Normal (Normal); Ketone-Dipstick Negative (Negative); Leukocyte Esterase-Dipstick 25 /ul (Negative); Nitrite-Dipstick Negative (Negative); Occult Blood-Urine 50 /ul (Negative); Protein-Dipstick Negative (Negative); Urine Bilirubin Dipstick Negative (Negative); Urine Clarity Sl. Cloudy (Clear); Urine Urobilinogen Normal (Normal)
[2022-03-11 11:25] LABS: Bacteria 1+ /hpf (None Seen); Calcium Oxalate Crystals Ur 1+ /hpf (<or=2+); Red Blood Cells-Urine 0-5 SEEN /hpf (0-5); Squamous Epithelial Cells - UA 0-5 SEEN /hpf (5-10); White Blood Cells 0-5 SEEN /hpf (0-5); Yeast-Urine 1+ /hpf (None Seen)
[2022-03-11] MEDS: Acetaminophen 325 MG Tablet 650 MG PO (12:11)
[2022-03-11 12:12] VITALS: BP 113/61; PULSE 88; RESP 16; O2SAT 97
== END 2022-03-11 12:21 | disposition home or self-care (01) ==
PROVIDERS: Emergency Provider Emergency Medicine; PCP Family Medicine; Visit Provider Emergency Medicine
DX: J06.9 Acute upper respiratory infection, unspecified (principal); G35 Multiple sclerosis; R11.2 Nausea with vomiting, unspecified; Z87.891 Personal history of nicotine dependence
CPT/HCPCS: 36415; 71045; 80053; 81001; 83605; 83690; 85025; 87040; 87086; 87088; 87428; 87807; 93005; 96374; 99285; J7030; A4216; J2405

== ENCOUNTER → 2022-06-18 | Outpatient (CLI) | payer OTHER, SELFPAY ==
[2018-02-01 11:47] VITALS: BMI 15.0
[2022-06-18 12:03] LABS: Color, Urine Yellow (Yellow); Glucose, Dipstick Normal (Normal); Ketone-Dipstick Negative (Negative); Leukocyte Esterase-Dipstick 500 /ul (Negative); Nitrite-Dipstick Positive (Negative); Occult Blood-Urine 50 /ul (Negative); Protein-Dipstick Negative (Negative); Urine Bilirubin Dipstick Negative (Negative); Urine Clarity Sl. Cloudy (Clear); Urine Urobilinogen Normal (Normal)
== END | disposition home or self-care (01) ==
LOC: LAB.FUTURE 06-24 16:00
PROVIDERS: PCP Family Medicine; Referring Provider Family Medicine; Visit Provider Family Medicine
DX: N39.0 Urinary tract infection, site not specified (principal)
CPT/HCPCS: 81002; 87077; 87086; 87088; 87186

== ENCOUNTER 2022-06-26 08:48 | Outpatient (RCR) | payer OTHER, SELFPAY ==
[2018-02-01 11:47] VITALS: BMI 15.0
[2022-02-13 00:19] VITALS: BP 91/64; PULSE 81; RESP 18; TEMP 35.9
[2022-06-26 09:02] VITALS: BP 124/65; PULSE 70; RESP 16; TEMP 37
--- NOTE | 2022-06-26 13:33 | PCM.WC.HP ---
History of Present Illness Date of Service: 06/26/22 Chief Complaint: Nonhealing sacral and bilateral buttock ulcers History of Wound: The patient is a 56-year-old who [facility] to a chronic, nonhealing sacral and bilateral buttock ulcers. Chronic ulcers for which she has been seen here in the past. Last seen here over 2 months ago. History of multiple sclerosis with bilateral lower extremity paresis. Since her last visit, she states that she has been applying Medihoney and Aquacel to the ulcers daily. Also has somebody who comes in overnight and helps her change her position every 2 hours. Has a nurse that comes in from her multiple sclerosis clinic twice a week that helps with wound changes as well. Have remained clean since she had the colostomy placed. She states that her nutrition is also improved with a colostomy in place. She states that she has been taking Premier protein and Leobardo supplements. She feels well overall, no chills, fever, nausea or vomiting. [facility] Medical History (Updated 06/26/22 @ 14:[address] Su Ross MD) Breast cancer Cancer Chronic indwelling Pandey catheter Decubitus ulcer of left buttock, stage 3 Decubitus ulcer of right buttock, stage 3 Former smoker History of breast cancer History of edema Marijuana use Multiple sclerosis PONV (postoperative nausea and vomiting) Post-menopausal Presence of intrathecal baclofen pump Pressure injury of left hip, stage 4 Pressure injury of left hip, unstageable Pressure injury of right hip, stage 2 Pressure injury of right hip, stage 4 Pressure injury of sacral region, stage 4 Sacral decubitus ulcer, stage III Screening for malignant neoplasm of breast Seasonal allergies Uses wheelchair Wears glasses Home Medications cholecalciferol (vitamin D3) 250 mcg (10,000 unit) capsule 5,000 unit PO DAILY supplement 10/09/17 [History Last Taken 07/12/21] dalfampridine 10 mg tablet,extended release,12 hr 10 mg PO BID MS 03/24/18 [History Last Taken 07/19/20] psyllium husk (aspartame) 3.4 gram oral powder packet (Metamucil Fiber Singles) 1 packet PO DAILY PRN Constipation 07/23/20 [History Last Taken 07/12/21] ascorbic acid (vitamin C) 1,000 mg chewable tablet 1 g PO DAILY Check with primary doctor 07/12/21 [History Last Taken 07/12/21] docusate sodium 100 mg capsule (Colace) 100 mg PO DAILY PRN PRN Constipation 07/12/21 [History Last Taken 07/11/21] zinc 50 mg capsule 50 mg PO DAILY Check with primary doctor 07/12/21 [History Last Taken 07/12/21] Lactobacillus 40-Bifidobact 3-S.thermophilus 100 billion cell capsule (Probiotic) 1 cap PO DAILY Check with primary doctor 07/30/21 [History Last Taken Unknown] Marijuana 3 drp PO/SL TID pain 07/30/21 [History Last Taken Unknown] baclofen 50 mcg/mL intrathecal solution 50 mcg intrathecal DAILY Check with primary doctor 12/26/21 [History Last Taken Unknown] natalizumab 300 mg/15 mL intravenous solution (Tysabri) 300 mg IV Q28D Check with primary doctor 12/30/21 [History Last Taken Unknown] Allergy/AdvReac Type Severity Reaction Status Date / Time clavulanic acid AdvReac Unknown Diarrhea Verified 06/26/22 09:26 [From Augmentin] Family History Aunt Breast cancer Mother Diabetes Surgical History h/o tonsillectomy History of bilateral oophorectomy History of colostomy S/P left mastectomy (~10/12/17) Social History household members: spouse Smoking Status: Former smoker alcohol intake: never ROS Constitutional Constitutional: Denies fever(s), headache(s), increased appetite, night sweats or poor appetite Eyes Eyes: Denies discharge from eye(s), discongugate gaze, exophthalmos, eye pain, floaters, foreign body, halo effect or irritation ENT HEENT: Denies dysphagia, ear discharge, foreign body in nose, halitosis, headache(s), hearing loss or nasal discharge Cardiovascular Cardiovascular: Denies clubbing, cold extremities, cyanosis, dyspnea at rest or dyspnea on exertion Respiratory/Chest Respiratory/Chest: Denies chest congestion, excessive phlegm production, hoarseness, inability to speak or nail bed cyanosis Gastrointestinal Gastrointestinal: Denies change in bowel habits, chewing difficulty, coffee ground emesis, constipation or cramping Genitourinary Genitourinary: Denies anuria, burning urination, dribbling, dysuria, flank pain or nocturia Musculoskeletal Musculoskeletal: Denies back pain, deformity, difficulty walking, joint stiffness or joint swelling Integumentary Integumentary: Denies change in pigmentation, erythema, hirsutism, jaundice or lesions Neurologic Neurologic: Denies abnormal hearing, abnormal movements, abnormal speech, behavior changes, burning sensations, loss of vision or memory loss Psychiatric Psychiatric: Denies anhedonia, anxiety, auditory hallucinations, behavioral changes, hallucinations, homicidal ideation or hopelessness Endocrine Endocrinology: Denies change in body appearance, deepening of the voice, heat intolerance, increase in ring/shoe/hat size, palpitations or polydipsia Hematologic/Lymphatic Hematologic/Lymphatic: Denies easy bleeding, easy bruising or lymphadenopathy Allergic/Immunologic Allergic/Immunologic: Denies tongue swelling, hives, urticaria, eczemia, wheezing or asthma Vital Signs Vital Signs Vital Signs: 06/26/22 09:02 Temperature 98.6 F Temperature Source Temporal Pulse Rate 70 Respiratory Rate 16 Blood Pressure 124/65 H Blood Pressure Mean 84 Blood Pressure Source Monitor Blood Pressure Position Sitting Blood Pressure Location Right Arm Oxygen Delivery Method Room Air Physical Exam Const alert, oriented x3 and no apparent distress General Appearance: cooperative and comfortable HEENT normocephalic and head/scalp atraumatic Head and Scalp: normal to inspection, normocephalic and atraumatic Eyes EOMs intact bilaterally Neck full ROM General: normal visual inspection Resp normal respiratory effort and normal air movement Effort and Inspection: able to speak in complete sentences Cardio regular rate, regular rhythm, S1 normal heart sound and S2 normal heart sound GI soft to palpation and non-tender Extremity normal to inspection Skin Wounds: wounds noted Neuro oriented x3, CN's II-XII intact bilaterally and moves all extremities Psych mental status grossly normal Appearance: grossly normal Attitude: calm Speech: normal speech Debridement Note Debridement Note Wound debrided: Sacral Wound Grade/Stage: Stage III Type of Debridement: Excisional debridement Anesthesia Used: 4% Lidocaine Solution Depth: Down to and including healthy tissue and in the subcutaneous layer Percentage of wound debrided: 100 Instrument Used: 5mm curette Tissue Removed: Slough and devitalized tissue Severity: Fat Layer Exposed Amount of bleeding with debridement: Mild Bleeding Controlled with: Pressure Patient tolerated procedure: Patient tolerated procedure well Post-Debridement Measurements and Additional Note: Post-Debridement Measurements/Treatment - Nurse 1 - General Ulcer Assessment Start: 06/26/22 09:00 Freq: Status: Active Protocol: ASHLEY Activity Type Activity Date Activity User E-sign Co-sign Detail Recorded Client Recorded Date Recorded By Document 06/26/22 09:02 [facility] [id number] 06/26/22 09:20 [facility] 06/26/22 09:02 - Today's Visit Information Type of service Initial Visit Arrival Mode Wheelchair Accompanied by CAREGIVER Patient Identification Verified (Name & Yes ) Patient Requires Transmission-Based No Precautions Height and Weight Height 5 ft 7 in Vital Signs Temperature (97.8 F-99.1 F) 98.6 F Temperature Source Temporal Pulse Rate (60-100) 70 Pulse Location Monitor Respiratory Rate (12-18) 16 Respiratory rate source Observation Oxygen Delivery Method Room Air Blood Pressure (90/60-120/80) 124/65 H Blood Pressure Mean 84 Source Monitor Position Sitting Blood Pressure Location Right Arm History Since Last Visit- (Skip if this is Patient's initial visit) Left Footwear Regular Shoe Right Footwear Regular Shoe Pain Scale: 0-10 Numeric Is Patient Pain Free? Yes - Nurse 1 - General Ulcer Measurement Start: 06/26/22 09:00 Freq: Status: Active Protocol: Activity Type Activity Date Activity User E-sign Co-sign Detail Recorded Client Recorded Date Recorded By Document 06/26/22 09:02 [facility] [id number] 06/26/22 09:20 [facility] 06/26/22 09:02 Wound Center Nurse 1 #7- R ISCHIUM -Combined with other wound No -Current Size (cm) - Length 1.6 -Current Size (cm) - Width 1 -Current Size (cm) - Depth 0.1 -Total Square Cm 1.6 -Date of Last Picture (Recall this 06/26/22 field) -Photo Taken Yes -Epithelialization None Present -Tunneling No -Undermining/Tunneling No -Circular Undermining No -Exudate Amt Medium -Exudate Type Serosanguineous -Wound Margin Distinct, Outline Attached -Granulation Amt Medium (34-66%) -Granulation Quality Red -Slough/Fibrin Yes -Necrosis Amt Medium (34-66%) -Necrotic Tissue Type Adherent Slough -Texture (Cydney-wound Skin Appearance) Assessed, Scarring -Moisture (Cydney-wound Skin Appearance) Assessed -Color ([place]ydney-wound Skin Appearance) Assessed -Temperature ([place]ydney-wound Skin No Abnormality Appearance) (Pt Warm) -Tenderness on Palpation (Cydney-wound No Skin Appearance) -Ulcer Cleansing Soap and Water -Foul Odor after Cleansing No -Anesthetic Used 5% Lidocaine Gel #6- SACRAL CLUSTER -Combined with other wound No -Current Size (cm) - Length 3.4 -Current Size (cm) - Width 3 -Current Size (cm) - Depth 0.3 -Total Square Cm 10.2 -Date of Last Picture (Recall this 06/26/22 field) -Photo Taken Yes -Epithelialization None Present -Tunneling No -Undermining/Tunneling Yes -Undermining/Tunneling Starts (O'clock 3 ) -Undermining/Tunneling Ends (O'clock) 5 -Maximum Distance (cm) 0.4 -Circular Undermining No -Exudate Amt Medium -Exudate Type Serosanguineous -Wound Margin Distinct, Outline Attached -Granulation Amt Medium (34-66%) -Granulation Quality [place] -Slough/Fibrin Yes -Necrosis Amt Medium (34-66%) -Necrotic Tissue Type Adherent Slough -Texture (Cydney-wound Skin Appearance) Assessed, Scarring -Moisture (Cydney-wound Skin Appearance) Assessed -Color ([place]ydney-wound Skin Appearance) Assessed -Temperature ([place]ydney-wound Skin No Abnormality Appearance) (Pt Warm) -Tenderness on Palpation (Cydney-wound No Skin Appearance) -Ulcer Cleansing Soap and Water -Foul Odor after Cleansing No -Anesthetic Used 5% Lidocaine Gel #5- R HIP -Combined with other wound No -Current Size (cm) - Length 3.5 -Current Size (cm) - Width 2.9 -Current Size (cm) - Depth 0.3 -Total Square Cm 10.15 -Date of Last Picture (Recall this 06/26/22 field) -Photo Taken Yes -Epithelialization None Present -Tunneling No -Undermining/Tunneling Yes -Undermining/Tunneling Starts (O'clock 11 ) -Undermining/Tunneling Ends (O'clock) 5 -Maximum Distance (cm) 2 -Circular Undermining No -Exudate Amt Medium -Exudate Type Serosanguineous -Wound Margin Thickened & Rolled Under -Granulation Amt Medium (34-66%) -Granulation Quality [place] -Slough/Fibrin Yes -Necrosis Amt Medium (34-66%) -Necrotic Tissue Type Adherent Slough -Texture (Cydney-wound Skin Appearance) Assessed, Scarring -Moisture (Cydney-wound Skin Appearance) Assessed -Color ([place]ydney-wound Skin Appearance) Assessed -Temperature ([place]yd[place]-wound Skin No Abnormality Appearance) (Pt Warm) -Tenderness on Palpation ([place]ydney-wound No Skin Appearance) -Ulcer Cleansing Soap and Water -Foul Odor after Cleansing No -Anesthetic Used 5% Lidocaine Gel #4- L HIP -Combined with other wound No -Current Size (cm) - Length 3 -Current Size (cm) - Width 3 -Current Size (cm) - Depth 1 -Total Square Cm 9 -Date of Last Picture (Recall this 06/26/22 field) -Photo Taken Yes -Epithelialization None Present -Tunneling No -Undermining/Tunneling Yes -Undermining/Tunneling Starts (O'clock 7 ) -Undermining/Tunneling Ends (O'clock) 5 -Maximum Distance (cm) 1.4 -Circular Undermining No -Exudate Amt Medium -Exudate Type Serosanguineous -Wound Margin Distinct, Outline Attached -Granulation Amt Medium (34-66%) -Granulation Quality Red -Slough/Fibrin Yes -Necrosis Amt Medium (34-66%) -Necrotic Tissue Type Adherent Slough -Texture (Cydney-wound Skin Appearance) Assessed, Scarring -Moisture (Cydney-wound Skin Appearance) Assessed -Color (Cydney-wound Skin Appearance) Assessed -Temperature ([place]ydney-wound Skin No Abnormality Appearance) (Pt Warm) -Tenderness on Palpation (Cydney-wound No Skin Appearance) -Ulcer Cleansing Soap and Water -Foul Odor after Cleansing No -Anesthetic Used 5% Lidocaine Gel WC - Nurse 2 - General Ulcer CM Notes Start: 06/26/22 09:00 Freq: Status: Active Protocol: Activity Type Activity Date Activity User E-sign Co-sign Detail Recorded Client Recorded Date Recorded By Document 06/26/22 09:46 MW [id number] 06/26/22 09:59 MW 06/26/22 09:46 Wound Center Nurse 2 #7- R ISCHIUM -Time 09:47 -Correct Patient Yes -Correct Side, Site, Position Yes -Correct Procedure Yes -Procedure Performed Yes -Type of Procedure Debridement -Clinical Debridement Subcutaneous -Tissue Removed Subcutaneous -Post Debridement (cm) - Length 1.5 -Post Debridement (cm) - Width 1.3 -Post Debridement (cm) - Depth 0.1 -Total Square (Post) (cm) 1.95 -Area of Debridement (cm) - Length 1.5 -Area of Debridement (cm) - Width 1.3 -Total Square (Area) (cm) 1.95 -Tunneling No -Undermining/Tunneling No -Circular Undermining No -Wound/Ulcer Outcome Not Healed -Ulcer Cleansing Rinsed/ Irrigated with Saline -Foul Odor after Cleansing No -Bioengineered Tissue No -Bleeding Controlled with Pressure -Treatment Response Procedure Tolerated Well -Offloading No -Debridement - Subq, 1st 20sq cm Yes #6- SACRAL CLUSTER -Time 09:48 -Correct Patient Yes -Correct Side, Site, Position Yes -Correct Procedure Yes -Procedure Performed Yes -Type of Procedure Debridement -Clinical Debridement Subcutaneous -Tissue Removed Subcutaneous -Post Debridement (cm) - Length 4.0 -Post Debridement (cm) - Width 2.7 -Post Debridement (cm) - Depth 0.8 -Total Square (Post) (cm) 10.80 -Area of Debridement (cm) - Length 4.0 -Area of Debridement (cm) - Width 2.7 -Total Square (Area) (cm) 10.80 -Tunneling No -Undermining/Tunneling No -Circular Undermining No -Wound/Ulcer Outcome Not Healed -Ulcer Cleansing Rinsed/ Irrigated with Saline -Foul Odor after Cleansing No -Bioengineered Tissue No -Bleeding Controlled with Pressure -Treatment Response Procedure Tolerated Well -Offloading No -Debridement - Subq, 1st 20sq cm No #5- R HIP -Time 09:48 -Correct Patient Yes -Correct Side, Site, Position Yes -Correct Procedure Yes -Procedure Performed Yes -Type of Procedure Debridement -Clinical Debridement Subcutaneous -Tissue Removed Subcutaneous -Post Debridement (cm) - Length 3.0 -Post Debridement (cm) - Width 3.8 -Post Debridement (cm) - Depth 0.6 -Total Square (Post) (cm) 11.40 -Area of Debridement (cm) - Length 3.0 -Area of Debridement (cm) - Width 3.8 -Total Square (Area) (cm) 11.40 -Tunneling No -Undermining/Tunneling No -Circular Undermining No -Wound/Ulcer Outcome Not Healed -Ulcer Cleansing Rinsed/ Irrigated with Saline -Foul Odor after Cleansing No -Bioengineered Tissue No -Bleeding Controlled with Pressure -Treatment Response Procedure Tolerated Well -Offloading No -Debridement - Subq, 1st 20sq cm No #4- L HIP -Time 09:49 -Correct Patient Yes -Correct Side, Site, Position Yes -Correct Procedure Yes -Procedure Performed Yes -Type of Procedure Debridement -Clinical Debridement Subcutaneous -Tissue Removed Subcutaneous -Post Debridement (cm) - Length 3.2 -Post Debridement (cm) - Width 3.8 -Post Debridement (cm) - Depth 1.1 -Total Square (Post) (cm) 12.16 -Area of Debridement (cm) - Length 3.2 -Area of Debridement (cm) - Width 3.8 -Total Square (Area) (cm) 12.16 -Tunneling No -Undermining/Tunneling No -Circular Undermining No -Wound/Ulcer Outcome Not Healed -Ulcer Cleansing Rinsed/ Irrigated with Saline -Foul Odor after Cleansing No -Bioengineered Tissue No -Bleeding Controlled with Pressure -Treatment Response Procedure Tolerated Well -Offloading No -Debridement - Subq, 1st 20sq cm No Pain Scale: 0-10 Numeric Is Patient Pain Free? Yes WC - Nurse 3 - General Ulcer D/C NN Start: 06/26/22 09:00 Freq: Status: Active Protocol: Activity Type Activity Date Activity User E-sign Co-sign Detail Recorded Client Recorded Date Recorded By Document 06/26/22 12:21 BRETT [id number] 06/26/22 12:24 DL 06/26/22 12:21 [facility] Center Nurse 3 #7- R ISCHIUM -Ulcer Cleansing Rinsed/ Irrigated with Saline -Foul Odor after Cleansing No -Primary Dressing Applied Aquacel Extra, Mepilex Border -Aquacel Extra 1 -Mepilex Border 1 #6- SACRAL CLUSTER -Ulcer Cleansing Rinsed/ Irrigated with Saline -Foul Odor after Cleansing No -Primary Dressing Applied Mepilex Border -Other Dressing aquacel ex -Mepilex Border 1 #5- R HIP -Ulcer Cleansing Rinsed/ Irrigated with Saline -Foul Odor after Cleansing No -Primary Dressing Applied Mepilex Border -Other Dressing aquacel ex -Mepilex Border 1 #4- L HIP -Ulcer Cleansing Rinsed/ Irrigated with Saline -Foul Odor after Cleansing No -Primary Dressing Applied Mepilex Border -Other Dressing aquacel ex -Mepilex Border 1 Treatment Response Procedure Tolerated Well Pain Scale: 0-10 Numeric Is Patient Pain Free? Yes WC - Visit Discharge Discharge Condition Stable Ambulatory Status Wheelchair Transportation Private Auto Additional Wound Wound debrided: Left buttock Wound Grade/Stage: Stage III Type of Debridement: Excisional debridement Anesthesia Used: 4% Lidocaine Solution Depth: Down to and including healthy tissue and in the subcutaneous layer Percentage of wound debrided: 100 Instrument Used: 5mm curette Tissue Removed: Slough and devitalized tissue Severity: Fat Layer Exposed Amount of bleeding with debridement: Mild Bleeding Controlled with: Pressure Patient tolerated procedure: Patient tolerated procedure well Additional Wound Wound debrided: Right buttock (lateral) Wound Grade/Stage: Stage III Type of Debridement: Excisional debridement Anesthesia Used: 4% Lidocaine Solution Depth: Down to and including healthy tissue and in the subcutaneous layer Percentage of wound debrided: 100 Instrument Used: 5mm curette Tissue Removed: Slough and devitalized tissue Severity: Fat Layer Exposed Amount of bleeding with debridement: Mild Bleeding Controlled with: Pressure Patient tolerated procedure: Patient tolerated procedure well Additional Wound Wound debrided: Right buttock (medial) Type of Debridement: Excisional debridement Anesthesia Used: 4% Lidocaine Solution Depth: Down to and including healthy tissue and in the subcutaneous layer Percentage of wound debrided: 100 Instrument Used: 5mm curette Tissue Removed: Slough and devitalized tissue Severity: Fat Layer Exposed Amount of bleeding with debridement: Mild Bleeding Controlled with: Pressure Charges/Coding Visit Charges Office Visits / Consults: [id number] OV L4 Est Procedures Integumentary [id number]: [id number] Natalia subq tissue 20 sq cm/< Add On Codes: 45479 Natalia subq tissue add-on (x1. Additional square centimeter debrided, please refer to clinical note.) Assessment/Plan Assessment/Plan (1) Decubitus ulcer of right buttock, stage 3: CODE(S): L89.313 - Pressure ulcer of right buttock, stage 3 (2) Decubitus ulcer of left buttock, stage 3: CODE(S): L89.323 - Pressure ulcer of left buttock, stage 3 (3) Sacral decubitus ulcer, stage III: CODE(S): L89.153 - Pressure ulcer of sacral region, stage 3 (4) Multiple sclerosis: CODE(S): G35 - Multiple sclerosis (5) Debility: CODE(S): R53.81 - Other malaise PLAN: Plan Debridement done as documented above, procedure was well-tolerated. The ulcers appear clean and healthy. We will continue Medihoney and Aquacel extra as she has been doing. Cover with foam dressing. Continue offloading adequate protein intake. She reports difficulty with weekly visits and may only be able to come monthly. Follow-up in 2 to 4 weeks or sooner if needed. Continue other chronic care/management. Her questions were answered and she was advised to call with any further questions or concerns. This note was generated with NuORDER dictation software. It may contain incorrect words, spelling, and punctuation that were not noted in checking the note before signing.
--- NOTE | 2022-07-24 14:53 | WC ---
06/26/22 [facility]
== END 2022-07-13 23:59 | disposition home or self-care (01) ==
LOC: WC 08:48
PROVIDERS: PCP Family Medicine; Referring Provider Nurse Practitioner Family; Visit Provider Internal Medicine
DX: L89.313 Pressure ulcer of right buttock, stage 3 (principal); L89.323 Pressure ulcer of left buttock, stage 3; L89.153 Pressure ulcer of sacral region, stage 3; Z93.3 Colostomy status; G35 Multiple sclerosis; R53.81 Other malaise; Z79.899 Other long term (current) drug therapy; Z87.891 Personal history of nicotine dependence
CPT/HCPCS: 11042; 11045; 99203; G0463

== ENCOUNTER 2022-06-29 16:50 | Observation (INO) | payer OTHER, SELFPAY ==
[2018-02-01 11:47] VITALS: BMI 15.0
[2022-06-29 16:52] VITALS: BP 122/45; PULSE 59; RESP 12; TEMP 37.2; O2SAT 97; BMI 15.2
--- NOTE | 2022-06-29 16:56 | ED.VIS.FEGU ---
HPI HPI - Female History of Present Illness Chief Complaint: Complaint Narrative Narrative: 56-year-old female here with concern for untreated UTI. Patient was diagnosed UTI on 06/18/2022. Culture from the study showed Pseudomonas aeruginosa which is sensitive to cefepime and Zosyn. Patient states she has lower abdominal pain and back pain. She notes lower abdominal pain that radiates to the left flank. Denies fever, chills, nausea or vomiting. Denies any chest pain or shortness of breath PFSH PFSH Medical History Breast cancer Cancer Chronic indwelling Pandey catheter Decubitus ulcer of left buttock, stage 3 Decubitus ulcer of right buttock, stage 3 Former smoker History of breast cancer History of edema Marijuana use Multiple sclerosis PONV (postoperative nausea and vomiting) Post-menopausal Presence of intrathecal baclofen pump Pressure injury of left hip, stage 4 Pressure injury of left hip, unstageable Pressure injury of right hip, stage 2 Pressure injury of right hip, stage 4 Pressure injury of sacral region, stage 4 Sacral decubitus ulcer, stage III Screening for malignant neoplasm of breast Seasonal allergies Uses wheelchair Wears glasses Home Medications cholecalciferol (vitamin D3) 250 mcg (10,000 unit) capsule 5,000 unit PO DAILY supplement 10/09/17 [History Last Taken 06/29/22] dalfampridine 10 mg tablet,extended release,12 hr 10 mg PO BID MS 03/24/18 [History Last Taken 06/29/22] ascorbic acid (vitamin C) 1,000 mg chewable tablet 1 g PO DAILY Check with primary doctor 07/12/21 [History Last Taken 06/29/22] zinc 50 mg capsule 50 mg PO DAILY Check with primary doctor 07/12/21 [History Last Taken 06/29/22] Allergy/AdvReac Type Severity Reaction Status Date / Time clavulanic acid AdvReac Unknown Diarrhea Verified 06/29/22 16:52 [From Augmentin] Family History Aunt Breast cancer Mother Diabetes Surgical History h/o tonsillectomy History of bilateral oophorectomy History of colostomy S/P left mastectomy (~10/12/17) Social History household members: spouse Smoking Status: Former smoker alcohol intake: never ROS ROS ED ROS Narrative Constitutional: Denies fever HEENT: Denies sore throat Neck: Denies neck pain Cardiovascular: Denies chest pain, syncope Respiratory: Denies shortness of breath GI: Denies nausea vomiting or abdominal pain : Endorses dysuria Musculoskeletal: Denies muscle or joint pain, endorses back pain Neurologic: Denies numbness weakness or loss of sensation Skin denies rash EXAM Physical Exam Narrative Exam Narrative: Nursing triage notes reviewed, Vital signs reviewed Constitutional: please see mdm HENT: MMM Eyes: Pupils equal round and reactive to light, Extraocular muscles intact Neck: No stridor, no JVD, full neck ROM Lungs: Clear to auscultation, No wheezing or rales. No increased work of breathing, no conversational dyspnea, no accessory muscle use, no nasal flaring. No respiratory distress noted Heart: Regular rate and rhythm, No murmurs, No rubs and No gallops, 2+ distal pulses (radial, femoral, posterior tibial) in all extremities Abdomen: Soft, mild lower abdominal tenderness, but no rigidity, rebound or guarding, no obvious peritoneal signs, no palpable pulsatile abdominal masses, no auscultated abdominal bruit : No CVAT, Pandey catheter in place Extremities: No edema Neuro: No focal neurological deficits, cranial nerves II through XII intact, 5/5 strength in all extremities. Intact sensation to light touch in all extremities, 2+ reflexes bilateral patella dens. Normal gait. No ataxia. Skin: No rash or lesions noted Const Vital Signs: 06/29/22 16:52 Temperature 99 F Temperature Source Temporal Pulse Rate 59 L Respiratory Rate 12 Blood Pressure 122/45 H Blood Pressure Mean 70 Pulse Ox 97 Oxygen Delivery Method Room Air MDM MDM MDM Narrative Medical decision making narrative: Chief Complaint: Dysuria External records reviewed: UA positive on 06/18. Urine culture was positive for Pseudomonas aeruginosa sensitive to Zosyn and cefepime I considered the following differential diagnosis: UTI, pyelonephritis. The patient was hemodynamically stable, afebrile, nontoxic-appearing. She had benign abdominal exam. I considered nephrolithiasis as a potential etiology however thought this was less likely. I did give the patient 1 dose of IV cefepime here after reviewing her urine culture. We did replace the patient's Pandey to decrease risk of biofilm from chronic Pandey catheterization. I discussed case with hospitalist Dr. Rodriguez who requested CT scan of the abdomen pelvis. His rationale was he may have to consult urology if there was a kidney stone or other surgical abnormality. I discussed CT scan of the abdomen pelvis of the patient. Patient was alert and orient x3 and had capacity to make own medical decisions. Patient was reticent to undergo a CT scan of the abdomen or pelvis as she did not think was necessary and expressed cost concerns. Patient's significant other who was in the room also agreed the patient does not require a CT scan of the abdomen or pelvis. I generally agree with this as patient had a clinical presentation that was not consistent with nephrolithiasis. I offer the patient imaging however she refused. I discussed this with the night internal medicine physician Dr. Schmidt (@ 7:58pm). He is continuing to evaluate for possible admission. After inpatient physician discussed the patient she agreed to undergo CT scan. This was communicated to Dr. Schmidt (9:00pm). Patient physician communicated decision to admit to [facility] @ 10:42 pm. Factors affecting care: Debility, MS, chronic Pandey catheterization Social determinants of health: None History obtained from others: The patient's significant other Shared decision making: I will have a discussion with the patient and or visitors regarding risk/benefits of further testing or admission. They will be made aware of of the risk/benefits inherent in this decision they will be given the opportunity to voice understanding. Consults: Internal medicine Lab Data Attestation: I reviewed the patient's lab results. Lab results narrative: CBC with no leukocytosis, no anemia, no thrombocytopenia BMP without evidence of significant electrolyte abnormalities, no anion gap, no acute kidney injury. Lactate is wnl indicating no end-organ hypoperfusion and/or hypoxia. LFTs show no evidence of hepatobiliary pathology. Labs: Laboratory Results - last 24 hr 06/29/22 06/29/22 06/29/22 17:25 17:25 17:25 WBC 7.6 RBC 4.33 Hgb 13.4 Hct 40.9 MCV 94.5 MCH 30.9 MCHC 32.8 RDW Std Deviation 48.7 H RDW Coeff of Raisa 13.8 Plt Count 251 MPV 10.4 Immature Gran % (Auto) 0.400 Neut % (Auto) 63.8 Lymph % (Auto) 25.1 [place] % (Auto) 7.0 Eos % (Auto) 3.0 Baso % (Auto) 0.7 Absolute Neuts (auto) 4.8 Absolute Lymphs (auto) 1.90 Nucleated RBC % 0 Sodium 136 Potassium 4.0 Chloride 101 Carbon Dioxide 32.0 Anion Gap 3 L BUN 26 H Creatinine 0.47 L Estim Creat Clear Calc 92.83 Est GFR (MDRD) Af Amer 175 Est GFR (MDRD) Non-Af 145 BUN/Creatinine Ratio 55.1 H Glucose 120 H Lactic Acid 1.5 Calcium 10.0 Total Bilirubin 0.30 AST 19 ALT 29 Alkaline Phosphatase 75 Total Protein 7.5 Albumin 3.4 Globulin 4.1 Albumin/Globulin Ratio 0.8 L Lipase 61 Radiography Diagnostic Testing: Clinical Impression(s) from Imaging Studies Abdomen/Pelvis CT 06/29/22 18:49 IMPRESSION: Left lower quadrant ostomy. There are no acute abnormalities in the abdomen or pelvis. Electronically Signed: Shawn Aburto MD at 21:38 EDT , Discharge Plan Triage Chief Complaint: Complaint ED Provider: Syed Crisostomo Dx/Rx/DC Orders Prescriptions: No Action cholecalciferol (vitamin D3) 10,000 UNIT capsule 5,000 unit PO DAILY dalfampridine 10 MG tablet extended release 12 hr 10 mg PO BID ascorbic acid (vitamin C) 1,000 mg Tablet,Chewable 1 g PO DAILY zinc 50 mg Capsule 50 mg PO DAILY Primary Care Provider: Mario Soliz Referrals: Mario Soliz DO [Primary Care Provider] -
[2022-06-29 17:33] LABS: Absolute Neutrophil Count 4.8 X10^3/uL (2.0-7.7); Basophil# 0.05 X10^3/uL; Basophil% 0.7 % (0-1); Eosinophil# 0.23 X10^3/uL; Hematocrit 40.9 % (37-47); Hemoglobin 13.4 g/dL (12.0-15.0); Lymphocyte % 25.1 % (19-41); Mean Corp Hgb Conc 32.8 g/dL (32-36); Mean Corpuscular Hgb 30.9 pg (27.0-32.0); Mean Corpuscular Volume 94.5 fL (81-99); Mean Platelet Vol. 10.4 fl (6.2-12.0); Monocyte# 0.53 X10^3/uL; NRBC Flagged by Analyzer 0 % (0-5); Neutrophil # 4.82 X10^3/uL (2.7-7.7); Neutrophil % 63.8 % (47-70); Platelet Count 251 K/mm3 (150-450); RBC Distribution Width CV 13.8 % (11.6-14.6); RBC Distribution Width SD 48.7 fl (35.1-43.9); Red Blood Count 4.33 M/mm3 (4.2-5.4); White Blood Count 7.6 K/mm3 (4.4-11.0)
[2022-06-29] MEDS: 0.9% Normal Saline 1,000 ML 1000 ML IV (17:38)
[2022-06-29 17:55] LABS: ALB/GLOB Ratio 0.8 RATIO (0.9-2.4); AST(SGOT) 19 U/L (15-37); Alanine Aminotransfer ALT/SGPT 29 U/L (13-56); Albumin, Serum 3.4 g/dL (3.2-5.0); Alkaline Phosphatase 75 U/L (45-117); Anion Gap 3 (5-15); BUN 26 mg/dL (7-18); BUN/Creat Ratio 55.1 RATIO (10-20); Chloride 101 mmol/L (98-107); Creatinine, Serum 0.47 mg/dL (0.55-1.02); EST Glomerular Filtration Rate 145 mL/min (>60); Est Glom Filt Rate - Afr Amer 175 mL/min (>60); Estimated Creatinine Clearance 92.83 ml/min; Globulin 4.1 g/dL (2.2-4.2); Glucose 120 mg/dL (74-106); Lipase 61 U/L (13-75); Protein, Total 7.5 g/dL (6.4-8.2); Sodium Level 136 mmol/L (136-145)
[2022-06-29 17:56] LABS: Lactic Acid 1.5 mmol/L (0.4-1.9)
--- NOTE | 2022-06-29 18:49 | CT_ITS ---
EXAM: CT ABDOMEN AND PELVIS WITHOUT INTRAVENOUS CONTRAST CLINICAL INDICATION: left flank pain TECHNIQUE: Helically acquired images were obtained of the abdomen and pelvis without intravenous contrast. This CT exam was performed using one or more of the following dose reduction techniques: automated exposure control, adjustment of the mA and/or kV according to patient size, and/or use of iterative reconstruction technique. This report was created using [employer] report generation technology. COMPARISON: 06/16/2021 FINDINGS: LOWER THORAX: Unremarkable. Lung bases are clear. No cardiomegaly. No significant pericardial effusion. ABDOMEN: LIVER: Unremarkable. Homogeneous. GALLBLADDER AND BILE DUCTS: Unremarkable. No calcified gallstones. No gallbladder distention or wall edema. No intra- or extrahepatic biliary ductal dilation. PANCREAS: Unremarkable. No focal cystic mass. SPLEEN: Unremarkable. Normal size without focal cystic or solid mass. ADRENALS: Unremarkable. No nodules. KIDNEYS AND URETERS: Unremarkable. Normal renal size and position. No hydronephrosis. STOMACH AND BOWEL: There is a left lower quadrant ostomy. No stomach or bowel distention. No focal inflammatory change. PELVIS: APPENDIX: No evidence of acute appendicitis. BLADDER: There is a Pandey catheter in the bladder. REPRODUCTIVE: Unremarkable as visualized. No mass. ABDOMEN and PELVIS: INTRAPERITONEAL SPACE: Unremarkable. No ascites or other fluid collection. No free air. BONES/JOINTS: Unremarkable. No suspicious lytic or blastic abnormality. SOFT TISSUES: See below. VASCULATURE: Unremarkable. Abdominal aorta is non-dilated. LYMPH NODES: Unremarkable. No enlarged lymph nodes. TUBES, LINES AND DEVICES: There is mechanical device in subcutaneous tissues of the right abdomen. This device creates a moderate amount of beam hardening artifact. There is a catheter extending from this device into the lumbar canal. The distal tip of the catheter is in the lower thoracic canal. CT/Abdomen/Pelvis without Cont IMPRESSION: Left lower quadrant ostomy. There are no acute abnormalities in the abdomen or pelvis. Electronically Signed: Shawn Aburto MD at 21:38 EDT ,
--- NOTE | 2022-06-29 20:26 | HP.PCM.HOS_ITS ---
HPI - General General Date of Admission: 06/29/22 Date of Service: 06/29/22 Chief Complaint: Outpatient diagnosis of UTI HPI Narrative CASPER CHRISTENSEN, is a 56 F with a significant history of multiple sclerosis and wheelchair-bound presents to the emergency department for outpatient diagnosis of UTI. Patient reported that about 16 days before presentation she had a foul- smelling and cloudy urine in her indwelling Pandey catheter. She denies any fever or chills. She denies any vomiting. She denies any nausea except on the day of presentation that because she had not eaten she felt a little nauseous. Outpatient urine culture showed Pseudomonas. Patient PCP and patient was hoping to get with the home health to give patient antibiotics at home. However for some reason that had not been possible. Today patient began to develop pain in her left groin so she came to the hospital. [facility] Medical History Breast cancer Cancer Chronic indwelling Pandey catheter Decubitus ulcer of left buttock, stage 3 Decubitus ulcer of right buttock, stage 3 Former smoker History of breast cancer History of edema Marijuana use Multiple sclerosis PONV (postoperative nausea and vomiting) Post-menopausal Presence of intrathecal baclofen pump Pressure injury of left hip, stage 4 Pressure injury of left hip, unstageable Pressure injury of right hip, stage 2 Pressure injury of right hip, stage 4 Pressure injury of sacral region, stage 4 Sacral decubitus ulcer, stage III Screening for malignant neoplasm of breast Seasonal allergies Uses wheelchair Wears glasses Home Medications cholecalciferol (vitamin D3) 250 mcg (10,000 unit) capsule 5,000 unit PO DAILY supplement 10/09/17 [History Last Taken 06/29/22] dalfampridine 10 mg tablet,extended release,12 hr 10 mg PO BID MS 03/24/18 [History Last Taken 06/29/22] ascorbic acid (vitamin C) 1,000 mg chewable tablet 1 g PO DAILY Check with primary doctor 07/12/21 [History Last Taken 06/29/22] zinc 50 mg capsule 50 mg PO DAILY Check with primary doctor 07/12/21 [History Last Taken 06/29/22] Allergy/AdvReac Type Severity Reaction Status Date / Time clavulanic acid AdvReac Unknown Diarrhea Verified 06/29/22 16:52 [From Augmentin] Family History Aunt Breast cancer Mother Diabetes Surgical History h/o tonsillectomy History of bilateral oophorectomy History of colostomy S/P left mastectomy (~10/12/17) Social History household members: spouse Smoking Status: Former smoker alcohol intake: never ROS ROS Narrative Pertinent positives and pertinent negatives as noted in HPI. All other systems were reviewed and are negative Vital Signs Vital Signs Vital Signs: 06/29/22 16:52 Temperature 99 F Temperature Source Temporal Pulse Rate 59 L Respiratory Rate 12 Blood Pressure 122/45 H Blood Pressure Mean 70 Pulse Ox 97 Oxygen Delivery Method Room Air Weight Weight: 43.998 kg Body Mass Index (BMI) 15.2 Physical Exam Narrative Physical exam: General: Well-nourished, well-developed. Head: Normocephalic, atraumatic, no tenderness Eyes: Vision is grossly intact. EOMI ENT, no trauma, moist mucous membranes, no rhinorrhea Neck: Nontender, No thyromegaly. CVS: Regular rate and rhythm. S1-S2 present. No murmur, gallop or rub. Respiratory : clear to auscultation bilaterally, chest wall nontender Abdomen: Colostomy present. Baclofen pump present. Soft, nontender, nondistended, normal bowel sounds, no masses : Indwelling Pandey catheter Back: Nontender, no CVA tenderness, no midline spinal tenderness Extremities: Nontender full range of motion, no trauma. Unable to move bilateral legs Skin: Bilateral deep ulcers on bilateral hips. Deep ulcers on sacral area. Neuro: Alert, oriented, cranial nerves II through XII grossly intact. Psychiatry: Normal mood. Normal affect. Not depressed. Not anxious. Results Lab / Micro Data Result Diagrams: 06/29/22 17:25 06/29/22 17:25 Labs: Laboratory Results - last 24 hr 06/29/22 17:25: WBC 7.6, RBC 4.33, Hgb 13.4, Hct 40.9, MCV 94.5, MCH 30.9, MCHC 32.8, RDW Std Deviation 48.7 H, RDW Coeff of Raisa 13.8, Plt Count 251, MPV 10.4, Immature Gran % (Auto) 0.400, Neut % (Auto) 63.8, Lymph % (Auto) 25.1, [place] % (Auto) 7.0, Eos % (Auto) 3.0, Baso % (Auto) 0.7, Absolute Neuts (auto) 4.8, Absolute Lymphs (auto) 1.90, Nucleated RBC % 0 06/29/22 17:25: Sodium 136, Potassium 4.0, Chloride 101, Carbon Dioxide 32.0, Anion Gap 3 L, BUN 26 H, Creatinine 0.47 L, Estim Creat Clear Calc 92.83, Est GFR (MDRD) Af Amer 175, Est GFR (MDRD) Non-Af 145, BUN/Creatinine Ratio 55.1 H, Glucose 120 H, Calcium 10.0, Total Bilirubin 0.30, AST 19, ALT 29, Alkaline Phosphatase 75, Total Protein 7.5, Albumin 3.4, Globulin 4.1, Albumin/Globulin Ratio 0.8 L, Lipase 61 06/29/22 17:25: Lactic Acid 1.5 Assessment & Plan Assessment/Plan (1) Pseudomonas urinary tract infection: (2) Decubitus ulcer of left buttock, stage 3: (3) Decubitus ulcer of right buttock, stage 3: (4) Sacral decubitus ulcer, stage III: PLAN: Plan Pseudomonas UTI Urine culture obtained on 06/18/2022 was positive for Pseudomonas. It was sensitive to cefepime, aminoglycosides, carbapenems and Zosyn. Impression of abdomen/pelvis CT by radiologist: Left lower quadrant ostomy. There are no acute abnormalities in the abdomen or pelvis. Abdomen/pelvis CT was visualized and independently interpreted and I agree with drug interpretation. Cefepime ordered for UTI. CBC was reviewed. It was unremarkable. Trend CBC and BMP Decubitus ulcer of left buttocks stage III/decubital ulcer of right buttocks stage III/sacral diabetes ulcer stage III Wet-to-dry dressing ordered. Wound consult Multiple sclerosis Noted in the floor. With baclofen pump. Dalfampridine continued. DVT prophylaxis Subcutaneous Lovenox ordered. Charges/Coding Visit Charges Inpatient E&M: 52465 Init Hosp L2
[2022-06-29 23:22] VITALS: BP 130/83; PULSE 63; RESP 18; TEMP 36.6; O2SAT 99
[2022-06-29 23:35] VITALS: BMI 15.0
[2022-06-29 23:45] VITALS: BP 121/79; PULSE 65; RESP 16; TEMP 36.4; O2SAT 96
[2022-06-30 05:33] VITALS: BP 121/75; PULSE 66; RESP 14; TEMP 36.6; O2SAT 96
[2022-06-30 06:15] LABS: Absolute Lymphocyte Count 1.87 X10^3/uL (0.83-4.51); Absolute Neutrophil Count 4.1 X10^3/uL (2.0-7.7); Basophil# 0.03 X10^3/uL; Basophil% 0.4 % (0-1); Eosinophil# 0.47 X10^3/uL; Eosinophils% 6.6 % (0-5); Hematocrit 35.2 % (37-47); Hemoglobin 11.7 g/dL (12.0-15.0); Lymphocyte # 1.87 X10^3/ul (0.83-4.51); Lymphocyte % 26.4 % (19-41); Mean Corp Hgb Conc 33.2 g/dL (32-36); Mean Corpuscular Hgb 31.3 pg (27.0-32.0); Mean Corpuscular Volume 94.1 fL (81-99); Mean Platelet Vol. 10.4 fl (6.2-12.0); Monocyte# 0.64 X10^3/uL; NRBC Flagged by Analyzer 0.3 % (0-5); Neutrophil # 4.06 X10^3/uL (2.7-7.7); Neutrophil % 57.3 % (47-70); Platelet Count 259 K/mm3 (150-450); RBC Distribution Width CV 13.9 % (11.6-14.6); RBC Distribution Width SD 47.6 fl (35.1-43.9); Red Blood Count 3.74 M/mm3 (4.2-5.4); White Blood Count 7.1 K/mm3 (4.4-11.0)
[2022-06-30 06:56] LABS: Anion Gap 4 (5-15); BUN 13 mg/dL (7-18); BUN/Creat Ratio 70.7 RATIO (10-20); Calcium,Total 8.9 mg/dL (8.5-10.1); Chloride 108 mmol/L (98-107); Creatinine, Serum 0.18 mg/dL (0.55-1.02); EST Glomerular Filtration Rate 429 mL/min (>60); Est Glom Filt Rate - Afr Amer 519 mL/min (>60); Estimated Creatinine Clearance 240.75 ml/min; Glucose 82 mg/dL (74-106); Potassium 3.7 mmol/L (3.5-5.1); Sodium Level 138 mmol/L (136-145)
[2022-06-30 07:20] VITALS: O2SAT 96
--- NOTE | 2022-06-30 07:39 | PN.HOSP_ITS ---
Reason for Visit Reason for Visit: Diagnoses Pseudomonas (aeruginosa) (mallei) (pseudomallei) as the cause of diseases class ified elsewhere (06/29/22) Pressure ulcer of sacral region, stage 3 (06/29/22) Pressure ulcer of right buttock, stage 3 (06/29/22) Pressure ulcer of left buttock, stage 3 (06/29/22) Urinary tract infection, site not specified (06/29/22) Subjective Subjective Feels well. Diagnosed with UTI and tried to have it managed as outpt w PICC and IV abx, but was unable to get it authorized. Objective Data Objective Data Vital Signs: Vital Signs Temp Pulse Resp BP Pulse Ox O2 Del Method 36.6 C 66 14 121/75 H 96 Room Air 06/30/22 05:33 06/30/22 05:33 06/30/22 05:33 06/30/22 05:33 06/30/22 07:20 06/30/22 07:20 Oxygen Delivery Method Room Air Weight: 43.7 kg Body Mass Index (BMI) 15.0 Intake & Output: Intake and Output for Last 24 Hours 06/28/22 06/29/22 06/30/22 23:59 23:59 23:59 Intake Total 1100 / 1100 100 / 100 Output Total 1650 / 1650 Balance 1100 / 100 -1550 / -1550 Lab / Micro Data Result Diagrams: 06/30/22 05:53 06/30/22 05:53 Labs: Laboratory Results - last 24 hr 06/29/22 17:25: WBC 7.6, RBC 4.33, Hgb 13.4, Hct 40.9, MCV 94.5, MCH 30.9, MCHC 32.8, RDW Std Deviation 48.7 H, RDW Coeff of Raisa 13.8, Plt Count 251, MPV 10.4, Immature Gran % (Auto) 0.400, Neut % (Auto) 63.8, Lymph % (Auto) 25.1, [place] % (Auto) 7.0, Eos % (Auto) 3.0, Baso % (Auto) 0.7, Absolute Neuts (auto) 4.8, Abs olute Lymphs (auto) 1.90, Nucleated RBC % 0 06/29/22 17:25: Sodium 136, Potassium 4.0, Chloride 101, Carbon Dioxide 32.0, Anion Gap 3 L, BUN 26 H, Creatinine 0.47 L, Estim Creat Clear Calc 92.83, Est GFR (MDRD) Af Amer 175, Est GFR (MDRD) Non-Af 145, BUN/Creatinine Ratio 55.1 H, Glucose 120 H, Calcium 10.0, Total Bilirubin 0.30, AST 19, ALT 29, Alkaline Phosphatase 75, Total Protein 7.5, Albumin 3.4, Globulin 4.1, Albumin/Globulin Ratio 0.8 L, Lipase 61 06/29/22 17:25: Lactic Acid 1.5 06/30/22 05:53: Sodium 138, Potassium 3.7, Chloride 108 H, Carbon Dioxide 26.0, Anion Gap 4 L, BUN 13, Creatinine 0.18 L, Estim Creat Clear Calc 240.75, Est GFR (MDRD) Af Amer 519, Est GFR (MDRD) Non-Af 429, BUN/Creatinine Ratio 70.7 H, Glucose 82, Calcium 8.9 06/30/22 05:53: WBC 7.1, RBC 3.74 L, Hgb 11.7 L, Hct 35.2 L, MCV 94.1, MCH 31.3, MCHC 33.2, RDW Std Deviation 47.6 H, RDW Coeff of Raisa 13.9, Plt Count 259, MPV 10.4, Immature Gran % (Auto) 0.300, Neut % (Auto) 57.3, Lymph % (Auto) 26.4, [place] % (Auto) 9.0, Eos % (Auto) 6.6 H, Baso % (Auto) 0.4, Absolute Neuts (auto) 4.1, Absolute Lymphs (auto) 1.87, Nucleated RBC % 0.3 Radiography Diagnostic Testing: Radiology Impression Abdomen/Pelvis CT 06/29/22 18:49 IMPRESSION: Left lower quadrant ostomy. There are no acute abnormalities in the abdomen or pelvis. Electronically Signed: Shawn Aburto MD at 21:38 EDT , Physical Exam Const alert and no apparent distress HEENT head/scalp atraumatic, moist oral mucous membranes and oropharynx normal Neck no lymphadenopathy Resp normal respiratory effort, no retractions and no use of accessory muscles Cardio regular rate, regular rhythm, S1 normal heart sound and S2 normal heart sound GI normal to inspection, nondistended, normoactive bowel sounds, soft to palpation, non-tender and non-distended Extremity normal to inspection Assessment & Plan Assessment/Plan (1) Pseudomonas urinary tract infection: PLAN: Pseudomonas UTI Urine culture obtained on 06/18/2022 was positive for Pseudomonas. It was sensitive to cefepime, aminoglycosides, carbapenems and Zosyn. Impression of abdomen/pelvis CT by radiologist: Left lower quadrant ostomy. There are no acute abnormalities in the abdomen or pelvis. Cefepime ordered for UTI. Apparently this was untreated. Repeat UA and UCx as it has been 12 days since this was last performed. (2) Decubitus ulcer of left buttock, stage 3: PLAN: Decubitus ulcer of left buttocks stage III/decubital ulcer of right buttocks stage III/sacral diabetes ulcer stage III Wet-to-dry dressing ordered. Wound consult (3) Decubitus ulcer of right buttock, stage 3: PLAN: Decubitus ulcer of left buttocks stage III/decubital ulcer of right buttocks stage III/sacral diabetes ulcer stage III Wet-to-dry dressing ordered. Wound consult (4) Sacral decubitus ulcer, stage III: PLAN: Decubitus ulcer of left buttocks stage III/decubital ulcer of right buttocks stage III/sacral diabetes ulcer stage III Wet-to-dry dressing ordered. Wound consult PLAN: Plan Chronic conditions: * Multiple sclerosisNoted in the floor. With baclofen pump.Dalfampridine continued. DVT prophylaxis Subcutaneous Lovenox ordered. Charges/Coding Visit Charges Inpatient E&M: 84121 Subs Hosp L2
[2022-06-30 08:39] LABS: Bacteria 0 SEEN /hpf (None Seen); Mucous, Urine 0 SEEN /hpf (<or=2+)
--- NOTE | 2022-06-30 08:41 | WOUNDNOTE ---
wound photo: left hip
--- NOTE | 2022-06-30 08:41 | WOUNDNOTE ---
wound photo: sacrum
--- NOTE | 2022-06-30 08:42 | WOUNDNOTE ---
wound photo: right ischium
--- NOTE | 2022-06-30 08:42 | WOUNDNOTE ---
wound photo: right hip
[2022-06-30 08:48] LABS: Color, Urine Yellow (Yellow); Glucose, Dipstick Normal (Normal); Ketone-Dipstick 50 mg/dl (Negative); Leukocyte Esterase-Dipstick 100 /ul (Negative); Nitrite-Dipstick Negative (Negative); Occult Blood-Urine 10 /ul (Negative); Protein-Dipstick Negative (Negative); Urine Bilirubin Dipstick Negative (Negative); Urine Clarity Sl. Cloudy (Clear); Urine Urobilinogen Normal (Normal)
[2022-06-30 08:58] LABS: Red Blood Cells-Urine 0-5 SEEN /hpf (0-5); Squamous Epithelial Cells - UA 0-5 SEEN /hpf (5-10); White Blood Cells 10-25 SEEN /hpf (0-5)
[2022-06-30 09:52] VITALS: BP 111/64; PULSE 80; RESP 16; TEMP 36.8; O2SAT 97
[2022-06-30] MEDS: Ascorbic Acid 500 MG Tablet 1000 MG PO (10:05)
[2022-06-30] MEDS: Cholecalciferol (Vit D3) 125 MCG CAPSULE (5,000 UNITS) PO (10:05)
[2022-06-30] MEDS: DALFAMPRIDINE 10 MG TAB.ER.12H PO ×2 (10:06→19:54)
[2022-06-30] MEDS: Enoxaparin 40 MG/0.4 ML Syringe SC (10:06)
--- NOTE | 2022-06-30 10:40 | CASEMGMT ---
Addendum entered by Lauren Perla 06/30/22 15:51: Pt cg is Liana Gomez who is a aquaculture worker. Pt is confirming that she can be present for HH SOC. Updated Georgina at [facility]. Addendum entered by Lauren Perla 06/30/22 15:08: Pt has used [facility] in the past and would like them to be provider. Pt states she would have her cg who turns her learn the IV pending how often it is. TC to Georgina at [facility], they are able to accept pt for the IV only, not wound care. She is asking name of cg. CARL GONZALES back into pt room and manufacturing electrician present. Will check back. Referral sent to [facility] for infusion via careport at this time. Pt is agreeable to visit cost. Addendum entered by Lauren Perla 06/30/22 14:59: Spoke with hospitalist, plan to dc pt home on IV atb tomorrow. CARL GONZALES into pt room, pt would like [facility] to see her as this is the preferred provider by her insurance she states. TC to Georgina at [facility] and referral made. Addendum entered by Lauren Perla 06/30/22 11:06: Recived tc back from Georgina at [facility] who states pt referral was made on a Thursday and they were unable to staff. She can review referral if needed. Original Note: CARL GONZALES Assessment: Face to Face with pt for initial transition planning/care coordination assessment. CARL GONZALES introduced self and role at [facility], pt voices understanding and consents to assessment. Pt is A/O x4 and answers all questions appropriately at this time. Pt lying in bed in no distress. Care providers, pharmacy, and demographics verified/updated. Admitting Dx: pseudomonas UTI PCP:Martínez Specialists:Vandana at [facility], Felice, pain mgmt for Baclofen pump; Idalmis, neuro at [facility] Preferred Pharmacy: [facility] Retail Insurance: MMO Prescription Benefit: yes LNOK: Sara Byrnes, son; Phuong Lim, sister in law Living Arrangements: Pt lives with son and his girlfriend in a split level home. Pt states she can enter the home with her w/c. Pt has multiple cg's who provide care. Pt does her own meals and laundry. Pt denies concerns at home. Transportation: Pt sister in law and MS nurse provide her with transportation. DME/HHC/SNF: Pt has an adjustable bed, built in shower, stair lift to go between floors, electric w/c x2 and grab bars. Pt has an ostomy as well as a kaye. She gets her supplies for both through [employer]. Pt has a best friend who visits on Saturdays and does pt wound care. She has a MS nurse who visits on Wednesdays and gives pt a bath and for wound care. The MS nurse also changes pt kaye. Pt hires privately a cg from [facility] every 2 hours to turn her. Pt dtr in law is a RN and is able to help with care as well. Pt has had [facility] in the past but states when she needed the IV atb, they were unable to accept her. Pt has also been to [facility]. Pt states no concerns with going home at time of dc. She would like to return home with HHC should she need IV atb at home. TC to [facility] to see if able to accept pt if this is the case as pt reports they are not accepting new pts. Pt states no further concerns/needs. CM to follow. Advised pt to ask CM if any further question/concerns/needs arise, voices understanding. Pt Goal: Home with HHC if need IV atb Plan: TBD. Home with all cgs resuming or HHC for IV atb if needed.
--- NOTE | 2022-06-30 16:20 | CHAPLAIN ---
Type of Pastoral Visit _x__ Initial Visit ___ Follow-up Visit ___ On-call Visit ___ General Patient Visit ___ Spiritual Assessment ___ Family Conference ___ Bereavement ___ Rapid Response ___ Code Blue ___ Other (describe below) Pastoral Care Referral From _x__ Patient ___ Family ___ Nurse ___ Physician ___ Filter Pulp Washer ___ Hand Stapler ___ Other (describe below) Sacrament/Intervention _x__ Active listening ___ Anointing ___ Buddhism _x__ Bereavement ___ Communion _x__ Steph exploration ___ _x__ Life review _x__ Prayer ___ Reconciliation ___ Sacrament of Sick _x__ Supportive presence ___ Wedding ___ Other (describe below) Pastoral Comments patient has been seen before in previous admissions and during her 's admissions before his ; pt speaks of how she is coping with her loss and how she is managing at home; son lives with her and this enables her to live there 'alone'; pt is tearful as she reviews many of these thoughts and feelings about her life; pt is hopeful about going home tomorrow; pt welcomes presence and prayer and is very expressive of appreciation for such
[2022-06-30] MEDS: Juven (unflavored) Packet 1 PACKET PO (16:27)
[2022-06-30 19:50] VITALS: BP 128/65; PULSE 70; RESP 16; TEMP 37.6; O2SAT 93
[2022-06-30] MEDS: MELATONIN 3 MG TABLET PO (19:53)
[2022-06-30] MEDS: Ondansetron 4 MG/2 ML Vial IV (19:53)
[2022-06-30] MEDS: Acetaminophen 325 MG Tablet 650 MG PO (19:53)
[2022-06-30] MEDS: 0.9% Saline Lock 10 ML Syringe IV (19:54)
[2022-07-01 03:20] VITALS: BP 111/61; PULSE 58; RESP 16; TEMP 36.7; O2SAT 98
[2022-07-01] MEDS: 0.9% Saline Lock 10 ML Syringe IV (05:35)
[2022-07-01 06:06] LABS: Absolute Lymphocyte Count 2.04 X10^3/uL (0.83-4.51); Absolute Neutrophil Count 3.1 X10^3/uL (2.0-7.7); Basophil# 0.03 X10^3/uL; Basophil% 0.5 % (0-1); Eosinophil# 0.45 X10^3/uL; Eosinophils% 7.1 % (0-5); Hematocrit 34.5 % (37-47); Hemoglobin 11.2 g/dL (12.0-15.0); Lymphocyte # 2.04 X10^3/ul (0.83-4.51); Lymphocyte % 32.1 % (19-41); Mean Corp Hgb Conc 32.5 g/dL (32-36); Mean Corpuscular Hgb 30.8 pg (27.0-32.0); Mean Corpuscular Volume 94.8 fL (81-99); Mean Platelet Vol. 10.3 fl (6.2-12.0); Monocyte# 0.67 X10^3/uL; Monocyte% 10.6 % (0-10); NRBC Flagged by Analyzer 0 % (0-5); Neutrophil # 3.14 X10^3/uL (2.7-7.7); Neutrophil % 49.4 % (47-70); Platelet Count 235 K/mm3 (150-450); RBC Distribution Width CV 13.9 % (11.6-14.6); RBC Distribution Width SD 48.2 fl (35.1-43.9); Red Blood Count 3.64 M/mm3 (4.2-5.4); White Blood Count 6.4 K/mm3 (4.4-11.0)
[2022-07-01 06:58] LABS: Anion Gap 0 (5-15); BUN 21 mg/dL (7-18); BUN/Creat Ratio 68.2 RATIO (10-20); Calcium,Total 8.8 mg/dL (8.5-10.1); Chloride 108 mmol/L (98-107); Creatinine, Serum 0.31 mg/dL (0.55-1.02); EST Glomerular Filtration Rate 237 mL/min (>60); Est Glom Filt Rate - Afr Amer 286 mL/min (>60); Estimated Creatinine Clearance 139.79 ml/min; Glucose 89 mg/dL (74-106); Potassium 3.7 mmol/L (3.5-5.1); Sodium Level 139 mmol/L (136-145)
[2022-07-01] MEDS: Juven (unflavored) Packet 1 PACKET PO (07:32)
--- NOTE | 2022-07-01 07:41 | PCM.PN.HOSP ---
Reason for Visit Reason for Visit: Diagnoses Pseudomonas (aeruginosa) (mallei) (pseudomallei) as the cause of diseases classified elsewhere (06/29/22) Pressure ulcer of sacral region, stage 3 (06/29/22) Pressure ulcer of right buttock, stage 3 (06/29/22) Pressure ulcer of left buttock, stage 3 (06/29/22) Urinary tract infection, site not specified (06/29/22) Subjective Subjective Feels better overall. Objective Data Objective Data Vital Signs: Vital Signs Temp Pulse Resp BP Pulse Ox O2 Del Method 36.7 C 58 L 16 111/61 98 Room Air 07/01/22 03:20 07/01/22 03:20 07/01/22 03:20 07/01/22 03:20 07/01/22 03:20 07/01/22 03:20 Oxygen Delivery Method Room Air Weight: 43.7 kg Body Mass Index (BMI) 15.0 Intake & Output: Intake and Output for Last 24 Hours 06/29/22 06/30/22 07/01/22 23:59 23:59 23:59 Intake Total 1100 / 1100 642.75 / 642.75 800 / 800 Output Total 1650 / 1950 600 / 600 Balance 1100 / 100 -1007.25 / -1307.25 200 / 200 Lab / Micro Data Result Diagrams: 07/01/22 06:00 07/01/22 06:00 Labs: Laboratory Results - last 24 hr 06/30/22 08:25: Urine Color Yellow, Urine Clarity Sl. Cloudy, Urine pH 6.0, Ur Specific Harrison 1.010, Urine Protein Negative, Urine Glucose (UA) Normal, Urine Ketones 50 H, Urine Occult Blood 10 H, Urine Nitrite Negative, Urine Bilirubin Negative, Urine Urobilinogen Normal, Ur Leukocyte Esterase 100 H, Urine RBC 0-5 SEEN, Urine WBC 10-25 SEEN, Ur Squamous Epith Cells 0-5 SEEN, Urine Bacteria 0 SEEN, Urine Mucus 0 SEEN 07/01/22 06:00: WBC 6.4, RBC 3.64 L, Hgb 11.2 L, Hct 34.5 L, MCV 94.8, MCH 30.8, MCHC 32.5, RDW Std Deviation 48.2 H, RDW Coeff of Raisa 13.9, Plt Count 235, MPV 10.3, Immature Gran % (Auto) 0.300, Neut % (Auto) 49.4, Lymph % (Auto) 32.1, [place] % (Auto) 10.6 H, Eos % (Auto) 7.1 H, Baso % (Auto) 0.5, Absolute Neuts (auto) 3.1, Absolute Lymphs (auto) 2.04, Nucleated RBC % 0 07/01/22 06:00: Sodium 139, Potassium 3.7, Chloride 108 H, Carbon Dioxide 31.0, Anion Gap 0 L, BUN 21 H, Creatinine 0.31 L, Estim Creat Clear Calc 139.79, Est GFR (MDRD) Af Amer 286, Est GFR (MDRD) Non-Af 237, BUN/Creatinine Ratio 68.2 H, Glucose 89, Calcium 8.8 Physical Exam Const alert and no apparent distress HEENT head/scalp atraumatic and moist oral mucous membranes Resp normal respiratory effort, no retractions, no use of accessory muscles and clear to auscultation bilaterally Cardio regular rate, regular rhythm, S1 normal heart sound and S2 normal heart sound GI normal to inspection, nondistended, normoactive bowel sounds, soft to palpation and non-tender Extremity normal to inspection Assessment & Plan Assessment/Plan (1) Pseudomonas urinary tract infection: PLAN: Pseudomonas UTI Urine culture obtained on 06/18/2022 was positive for Pseudomonas. It was sensitive to cefepime, aminoglycosides, carbapenems and Zosyn. Impression of abdomen/pelvis CT by radiologist: Left lower quadrant ostomy. There are no acute abnormalities in the abdomen or pelvis. Cefepime ordered for UTI. Apparently this was untreated. Repeat UA positive, so I still suspect an ongoing infection. UCx pending. I do not feel it is necessary to wait on final results (thus far pending) as pt clearly had a UTI that was untreated. Will treat for 6 more days of cefepime 2g IV Q12. (2) Decubitus ulcer of left buttock, stage 3: PLAN: Decubitus ulcer of left buttocks stage III/decubital ulcer of right buttocks stage III/sacral diabetes ulcer stage III Wet-to-dry dressing ordered. Wound consult (3) Decubitus ulcer of right buttock, stage 3: PLAN: Decubitus ulcer of left buttocks stage III/decubital ulcer of right buttocks stage III/sacral diabetes ulcer stage III Wet-to-dry dressing ordered. Wound consult (4) Sacral decubitus ulcer, stage III: PLAN: Decubitus ulcer of left buttocks stage III/decubital ulcer of right buttocks stage III/sacral diabetes ulcer stage III Wet-to-dry dressing ordered. Wound consult PLAN: Plan Chronic conditions: Multiple sclerosisNoted in the floor. With baclofen pump.Dalfampridine continued. DVT prophylaxis Subcutaneous Lovenox ordered.
[2022-07-01 07:50] VITALS: O2SAT 96
[2022-07-01 07:56] VITALS: BP 116/76; PULSE 62; RESP 16; TEMP 36.6; O2SAT 98
--- NOTE | 2022-07-01 09:31 | CASEMGMT ---
Addendum entered by Lauren Perla 07/01/22 11:33: Pt to dc after 2pm dose, hospitalist updated as well as pt nurse and pt. Addendum entered by Lauren Perla 07/01/22 10:52: RN CM into pt room, pt recorded this RN CM explaining how often med will be given at home, times for her cg. She states her cg will be able to stay and be present for [facility] tomorrow. She is aware med is IV push and states she may be even able to do herself. Pt is aware and agreeable to cost of med. [facility] to deliver med this evening. Updated [facility]. Addendum entered by Lauren Perla 07/01/22 10:44: Pt cost will be $314.71/wk. Med will be IV push. Original Note: IV atb rx uploaded to [employer] and sent to [facility], faxed to [facility].
[2022-07-01] MEDS: DALFAMPRIDINE 10 MG TAB.ER.12H PO (10:22)
[2022-07-01] MEDS: Enoxaparin 40 MG/0.4 ML Syringe SC (10:22)
[2022-07-01] MEDS: Cholecalciferol (Vit D3) 125 MCG CAPSULE (5,000 UNITS) PO (10:23)
[2022-07-01] MEDS: Ascorbic Acid 500 MG Tablet 1000 MG PO (10:23)
--- NOTE | 2022-07-01 11:07 | DCINST_ITS ---
Discharge Instructions Diet Discharge Diet: No restrictions Activity Discharge Activity: Return to Normal Activity Dressing / Incision Call your doctor if you observe: Fever of 101 or Higher Follow Up Care Test Results: Test results from this visit will be discussed in further detail at your follow- up appointment, if applicable. Discharge Plan Admission Admit Date/Time: 06/29/22 22:41 Primary Reason for Your Visit: UTI Attending Provider: George Eric Primary Care Provider: Mario Soliz Consulting Providers: Blaze Schmidt Discharge Orders/Prescriptions Prescriptions: New cefepime 2 gram Recon Soln 2 g IV Q8 Qty: 0 0RF Continued cholecalciferol (vitamin D3) 10,000 UNIT capsule 5,000 unit PO DAILY dalfampridine 10 MG tablet extended release 12 hr 10 mg PO BID ascorbic acid (vitamin C) 1,000 mg Tablet,Chewable 1 g PO DAILY zinc 50 mg Capsule 50 mg PO DAILY Referrals / Follow Up: Mario Soliz DO [Primary Care Provider] - Within 2 Weeks Disposition Disposition (needs filled in before D/C Order can be placed): Home Health Service
--- NOTE | 2022-07-01 11:11 | PCM.DC.SUM ---
Providers Date of Admission: 06/29/22 Primary Care Physician: Dr. Mario Soliz, DO Consultations 06/29/22 23:30 Consult: Onc/Wound/mail list librarian Routine Comment: Reason for Consult:: Pressure ulcers Reason For Visit: PSEUDOMONAS UTI Diagnosis Discharge Diagnosis (1) Pseudomonas urinary tract infection: Status: Acute Code(s): N39.0 - Urinary tract infection, site not specified; B96.5 - Pseudomonas (aeruginosa) (mallei) (pseudomallei) as the cause of diseases classified elsewhere Plan: Pseudomonas UTI Urine culture obtained on 06/18/2022 was positive for Pseudomonas. It was sensitive to cefepime, aminoglycosides, carbapenems and Zosyn. Impression of abdomen/pelvis CT by radiologist: Left lower quadrant ostomy. There are no acute abnormalities in the abdomen or pelvis. Cefepime ordered for UTI. Apparently this was untreated. Repeat UA positive, so I still suspect an ongoing infection. UCx pending. I do not feel it is necessary to wait on final results (thus far pending) as pt clearly had a UTI that was untreated. Will treat for 6 more days of cefepime 2g IV Q12. (2) Decubitus ulcer of left buttock, stage 3: Status: Acute Code(s): L89.323 - Pressure ulcer of left buttock, stage 3 Plan: Decubitus ulcer of left buttocks stage III/decubital ulcer of right buttocks stage III/sacral diabetes ulcer stage III Wet-to-dry dressing ordered. Wound consult (3) Decubitus ulcer of right buttock, stage 3: Status: Acute Code(s): L89.313 - Pressure ulcer of right buttock, stage 3 Plan: Decubitus ulcer of left buttocks stage III/decubital ulcer of right buttocks stage III/sacral diabetes ulcer stage III Wet-to-dry dressing ordered. Wound consult (4) Sacral decubitus ulcer, stage III: Status: Acute Code(s): L89.153 - Pressure ulcer of sacral region, stage 3 Plan: Decubitus ulcer of left buttocks stage III/decubital ulcer of right buttocks stage III/sacral diabetes ulcer stage III Wet-to-dry dressing ordered. Wound consult Plan Chronic conditions: Multiple sclerosisNoted in the floor. With baclofen pump.Dalfampridine continued. DVT prophylaxis Subcutaneous Lovenox ordered. Medications at Discharge Home Medications cholecalciferol (vitamin D3) 250 mcg (10,000 unit) capsule 5,000 unit PO DAILY supplement 10/09/17 dalfampridine 10 mg tablet,extended release,12 hr 10 mg PO BID MS 03/24/18 ascorbic acid (vitamin C) 1,000 mg chewable tablet 1 g PO DAILY Check with primary doctor 07/12/21 zinc 50 mg capsule 50 mg PO DAILY Check with primary doctor 07/12/21 cefepime 2 gram solution for injection 2 g IV Q8 #0 ea 07/01/22 Hospital Course Operations None Procedures PICC line placement Summary of Care Provided Minutes Spent on Discharge: 32 Hospital Course: 36-year-old female diagnosed with urinary tract infection on the fifth. They try to arrange outpatient treatment through her primary care doctor with PICC line and IV antibiotics but were unable to do so. Patient overall felt worse. When she presented she was stable and not septic. Patient's urine culture on the fifth showed a current 100,000 colony-forming units Pseudomonas. That was resistant to lala quinolones. Patient will be discharged with cefepime for total of 7 days. Patient's culture here performed on showed less than 1000 Staph aureus. Patient does have catheter so this is a catheter associated infection. PICC line was placed. Weight / BMI Weight Weight: 43.7 kg Body Mass Index (BMI) 15.0 ABG / Lab / Microbiology Data Result Diagrams: 07/01/22 06:00 07/01/22 06:00 Laboratory: Laboratory Results - last 24 hr 07/01/22 06:00: WBC 6.4, RBC 3.64 L, Hgb 11.2 L, Hct 34.5 L, MCV 94.8, MCH 30.8, MCHC 32.5, RDW Std Deviation 48.2 H, RDW Coeff of Raisa 13.9, Plt Count 235, MPV 10.3, Immature Gran % (Auto) 0.300, Neut % (Auto) 49.4, Lymph % (Auto) 32.1, [place] % (Auto) 10.6 H, Eos % (Auto) 7.1 H, Baso % (Auto) 0.5, Absolute Neuts (auto) 3.1, Absolute Lymphs (auto) 2.04, Nucleated RBC % 0 07/01/22 06:00: Sodium 139, Potassium 3.7, Chloride 108 H, Carbon Dioxide 31.0, Anion Gap 0 L, BUN 21 H, Creatinine 0.31 L, Estim Creat Clear Calc 139.79, Est GFR (MDRD) Af Amer 286, Est GFR (MDRD) Non-Af 237, BUN/Creatinine Ratio 68.2 H, Glucose 89, Calcium 8.8 Microbiology: Microbiology 06/30/22 08:25 Urine Catheter - Pandey Urine Culture - Preliminary Staphylococcus species D/C Instructions Discharge Diet: No restrictions Call your doctor if you observe: Fever of 101 or Higher Meaningful Use Info Meaningful Use Diagnoses (Choose all that apply): None applicable Discharge Plan Admission Admit Date/Time: 06/29/22 22:41 Primary Reason for Your Visit: UTI Attending Provider: George Eric Primary Care Provider: Mario Soliz Consulting Providers: Blaze Schmidt Discharge Orders/Prescriptions Prescriptions: New cefepime 2 gram Recon Soln 2 g IV Q8 Qty: 0 0RF Continued cholecalciferol (vitamin D3) 10,000 UNIT capsule 5,000 unit PO DAILY dalfampridine 10 MG tablet extended release 12 hr 10 mg PO BID ascorbic acid (vitamin C) 1,000 mg Tablet,Chewable 1 g PO DAILY zinc 50 mg Capsule 50 mg PO DAILY Referrals / Follow Up: Mario Soilz DO [Primary Care Provider] - Within 2 Weeks Disposition Disposition (needs filled in before D/C Order can be placed): Home Health Service Charges/Coding Visit Charges Inpatient E&M: 96960 Disch Hosp >30min
--- NOTE | 2022-07-01 11:53 | CASEMGMT ---
Social Work? SW in to pt room to verify advance directives. Pt confirmed has AD and named Spenser Byrnes,?son, as agent. SW verified, these documents are on file with [facility]. NUZHAT Haque?
[2022-07-01 13:36] VITALS: BP 115/64; PULSE 73; RESP 18; TEMP 36.7; O2SAT 96
--- NOTE | 2022-07-01 14:56 | PHA.DC.MC ---
Pharmacy Service has performed discharge medication reconciliation and counseling for this patient. 1. CEFEPIME 2GM IV Q8 The patient's discharge medication list was reviewed for discrepancies and discrepancies were resolved. Home Medications cholecalciferol (vitamin D3) 250 mcg (10,000 unit) capsule 5,000 unit PO DAILY supplement 10/09/17 dalfampridine 10 mg tablet,extended release,12 hr 10 mg PO BID MS 03/24/18 ascorbic acid (vitamin C) 1,000 mg chewable tablet 1 g PO DAILY Check with primary doctor 07/12/21 zinc 50 mg capsule 50 mg PO DAILY Check with primary doctor 07/12/21 cefepime 2 gram solution for injection 2 g IV Q8 #0 ea 07/01/22 The patient was counseled on the following discharge medications and changes in medications for homegoing were reviewed. The Reason for Use, instructions for use, and potential side effects were reviewed for all new medications. The patient's questions regarding all of their medications were answered. The patient was able to verbally demonstrate an understanding of their discharge medications.
--- NOTE | 2022-07-04 10:32 | NURSING ---
CARL CM Discharge follow-up phone call LACE:11 Strata:3 Date of call:07/04/22 Time of Call:1030 Admitting diagnosis: Pseudomonas, UTI Summary of call: Spoke with patient regarding recent hospitalization. Pt denies questions or concerns regarding recent care. Pt instructed to contact PCP with any questions or concerns should they arise.
== END 2022-07-01 16:05 | disposition home health service (06) | DRG 698 ==
LOC: ED 17:48 → MS3 23:10
PROVIDERS: Admitting Provider Hospitalist; Emergency Provider Emergency Medicine; PCP Family Medicine
DX: T83.511A Infection and inflammatory reaction due to indwelling urethral catheter, initial encounter (principal); L89.313 Pressure ulcer of right buttock, stage 3; L89.153 Pressure ulcer of sacral region, stage 3; L89.323 Pressure ulcer of left buttock, stage 3; Z93.3 Colostomy status; G35 Multiple sclerosis; N39.0 Urinary tract infection, site not specified; B96.5 Pseudomonas (aeruginosa) (mallei) (pseudomallei) as the cause of diseases classified elsewhere; Z87.891 Personal history of nicotine dependence; Y82.8 Other medical devices associated with adverse incidents; Z99.3 Dependence on wheelchair; Z79.899 Other long term (current) drug therapy
CPT/HCPCS: 36569; 96360 ×2; 99285; 36415; 51702; 74176; 80048; 80053; 81001; 83605; 83690; 85025; 87077; 87086; 87088; 87186; 96361; 96365; 96366; 96372; 96375; 97802; 99221; J7030; J7050; A4216; G0378; J2405

== ENCOUNTER 2022-07-07 12:39 | Outpatient (RCR) | payer OTHER, SELFPAY ==
[2018-02-01 11:47] VITALS: BMI 15.0
[2022-07-07 13:11] LABS: Mean Corp Hgb Conc 32.5 g/dL (32-36); Mean Corpuscular Volume 95.5 fL (81-99); Mean Platelet Vol. 11.6 fl (6.2-12.0); Platelet Count 282 K/mm3 (150-450); RBC Distribution Width CV 13.9 % (11.6-14.6); RBC Distribution Width SD 48.8 fl (35.1-43.9); Red Blood Count 4.19 M/mm3 (4.2-5.4); White Blood Count 7.5 K/mm3 (4.4-11.0)
[2022-07-07 13:24] LABS: Anion Gap 3 (5-15); BUN 20 mg/dL (7-18); BUN/Creat Ratio 69.4 RATIO (10-20); Calcium,Total 9.6 mg/dL (8.5-10.1); Chloride 101 mmol/L (98-107); Creatinine, Serum 0.29 mg/dL (0.55-1.02); EST Glomerular Filtration Rate 256 mL/min (>60); Est Glom Filt Rate - Afr Amer 309 mL/min (>60); Glucose 99 mg/dL (74-106); Potassium 4.1 mmol/L (3.5-5.1); Sodium Level 134 mmol/L (136-145)
[2022-07-09 15:55] LABS: Color, Urine Yellow (Yellow); Glucose, Dipstick Normal (Normal); Ketone-Dipstick Negative (Negative); Leukocyte Esterase-Dipstick 500 /ul (Negative); Nitrite-Dipstick Negative (Negative); Occult Blood-Urine 25 /ul (Negative); Protein-Dipstick Negative (Negative); Urine Bilirubin Dipstick Negative (Negative); Urine Clarity Clear (Clear); Urine Urobilinogen Normal (Normal)
== END 2022-07-13 00:19 | disposition home or self-care (01) ==
LOC: HHLAB 12:39
PROVIDERS: PCP Family Medicine; Referring Provider Family Medicine; Visit Provider Family Medicine
DX: N39.0 Urinary tract infection, site not specified; B96.5 Pseudomonas (aeruginosa) (mallei) (pseudomallei) as the cause of diseases classified elsewhere
CPT/HCPCS: 80048; 81002; 85027; 87086; 87088

== ENCOUNTER 2022-07-31 09:30 | Outpatient (RCR) | payer OTHER, SELFPAY ==
[2018-02-01 11:47] VITALS: BMI 15.0
[2022-07-14 00:05] VITALS: BP 124/65; PULSE 70; RESP 16; TEMP 37
[2022-07-17 09:36] VITALS: BP 122/69; PULSE 64; RESP 18; TEMP 36.1
--- NOTE | 2022-07-17 10:15 | PN.PCM_ITS ---
History of Present Illness Date of Service: 07/17/22 Chief Complaint: Nonhealing sacral and bilateral buttock ulcers History of Wound: The patient is a 56-year-old who [facility] a chronic, nonhealing sacral and bilateral buttock ulcers. Chronic ulcers for which she has been seen here in the past. Last seen here over 2 months ago. History of multiple sclerosis with bilateral lower extremity paresis. Since her last visit, she states that she has been applying Medihoney and Aquacel to the ulcers daily. Also has somebody who comes in overnight and helps her change her position every 2 hours. Has a nurse that comes in from her multiple sclerosis clinic twice a week that helps with wound changes as well. Have remained clean since she had the colostomy placed. She states that her nutrition is also improved with a colostomy in place. She states that she has been taking Premier protein and Leobardo supplements. She feels well overall, no chills, fever, nausea or vomiting. Progress of Wound: Stable/improving ulcers, no new concerns at this time. Objective Data Objective Data Vital Signs: Vital Signs Temp Pulse Resp BP 97 F L 64 18 122/69 H 07/17/22 09:36 07/17/22 09:36 07/17/22 09:36 07/17/22 09:36 Charges/Coding Procedures Integumentary 111xxx-113xx: [id number] Natalia subq tissue 20 sq cm/< Add On Codes: 74819 Natalia subq tissue add-on (x1. Additional square centimeter debrided, please refer to clinical note.) Physical Exam Const alert and no apparent distress HEENT head/scalp atraumatic and moist oral mucous membranes Resp normal respiratory effort GI normal to inspection, nondistended, normoactive bowel sounds, soft to palpation and non-tender Extremity normal to inspection Skin Wounds: wounds noted Psych mental status grossly normal, thought process normal, cooperative and affect normal Appearance: grossly normal Attitude: calm Debridement Note Debridement Note Wound debrided: Sacral Wound Grade/Stage: Stage III Type of Debridement: Excisional debridement Anesthesia Used: 4% Lidocaine Solution Depth: Down to and including healthy tissue and in the subcutaneous layer Percentage of wound debrided: 100 Instrument Used: 5mm curette Tissue Removed: Slough and devitalized tissue Severity: Fat Layer Exposed Amount of bleeding with debridement: Mild Bleeding Controlled with: Pressure Patient tolerated procedure: Patient tolerated procedure well Post-Debridement Measurements and Additional Note: Post-Debridement Measurements/Treatment - Nurse 1 - General Ulcer Assessment Start: 07/17/22 09:36 Freq: Status: Active Protocol: ASHLEY Activity Type Activity Date Activity User E-sign Co-sign Detail Recorded Client Recorded Date Recorded By Document 07/17/22 09:36 CONCETTA [id number] 07/17/22 09:40 RB 07/17/22 09:36 - Today's Visit Information Type of service Follow-up Visit (Physician/B[facility] [employer]ER ) Arrival Mode Wheelchair Transfer Assistance Manual Patient Identification Verified (Name & Yes ) Patient Requires Transmission-Based No Precautions Vital Signs Temperature (97.8 F-99.1 F) 97 F L Temperature Source Temporal Pulse Rate (60-100) 64 Pulse Location Monitor Respiratory Rate (12-18) 18 Respiratory rate source Observation Blood Pressure (90/60-120/80) 122/69 H Blood Pressure Mean (mm Hg) 86 Source Monitor Position Semi-Fowlers Blood Pressure Location Left Arm History Since Last Visit- (Skip if this is Patient's initial visit) Have you changed medications since your No last visit? Any new allergies or adverse reactions No Had a fall/change in ADL's that may No increase risk of falls Signs or symptoms of abuse and/or No neglect since last visit Have you been in the hospital since your No last visit? Has dressing in place as prescribed Yes Has compression in place as prescribed No Has offloadiing in place as prescribed Yes Experienced any changes in pain level or No management Pain Scale: 0-10 Numeric Is Patient Pain Free? Yes - Nurse 1 - General Ulcer Measurement Start: 07/17/22 09:36 Freq: Status: Active Protocol: Activity Type Activity Date Activity User E-sign Co-sign Detail Recorded Client Recorded Date Recorded By Document 07/17/22 09:36 CONCETTA [id number] 07/17/22 09:40 RB 07/17/22 09:36 Wound Center Nurse 1 #7- R ISCHIUM -Combined with other wound No -Current Size (cm) - Length 1.4 -Current Size (cm) - Width 1.3 -Current Size (cm) - Depth 0.1 -Total Square Cm 1.82 -Tunneling No -Undermining/Tunneling No -Circular Undermining No -Exudate Amt Medium -Exudate Type Serosanguineous -Wound Margin Distinct, Outline Attached -Granulation Amt Medium (34-66%) -Granulation Quality [place] -Slough/Fibrin Yes -Necrosis Amt Medium (34-66%) -Necrotic Tissue Type Adherent Slough -Structure Exposed N/A -Texture ([place]ydney-wound Skin Appearance) Not Assessed, Scarring -Moisture ([place]-wound Skin Appearance) Assessed -Color ([place]-wound Skin Appearance) Assessed -Temperature ([place]-wound Skin No Abnormality Appearance) (Pt Warm) -Tenderness on Palpation ([place]ydney-wound No Skin Appearance) -Ulcer Cleansing Wound Cleanser -Foul Odor after Cleansing No -Anesthetic Used 5% Lidocaine Gel #6- SACRAL CLUSTER -Combined with other wound No -Current Size (cm) - Length 2.8 -Current Size (cm) - Width 2 -Current Size (cm) - Depth 0.4 -Total Square Cm 5.6 -Tunneling No -Undermining/Tunneling No -Circular Undermining No -Exudate Amt Medium -Exudate Type Serosanguineous -Wound Margin Distinct, Outline Attached -Granulation Amt Large (67-100%) -Granulation Quality [place] -Slough/Fibrin Yes -Necrosis Amt Medium (34-66%) -Necrotic Tissue Type Adherent Slough -Structure Exposed N/A -Texture ([place]yd[place]-wound Skin Appearance) Assessed, Scarring -Moisture ([place]yd[place]-wound Skin Appearance) Assessed -Color ([place]-wound Skin Appearance) Assessed -Temperature ([place]-wound Skin No Abnormality Appearance) (Pt Warm) -Tenderness on Palpation ([place]-wound No Skin Appearance) -Ulcer Cleansing Wound Cleanser -Foul Odor after Cleansing No -Anesthetic Used 5% Lidocaine Gel #5- R HIP -Combined with other wound No -Current Size (cm) - Length 3.5 -Current Size (cm) - Width 3 -Current Size (cm) - Depth 0.5 -Total Square Cm 10.5 -Tunneling No -Undermining/Tunneling No -Circular Undermining No -Exudate Amt Large -Exudate Type Serosanguineous -Wound Margin Thickened & Rolled Under -Granulation Amt Medium (34-66%) -Granulation Quality [place] -Slough/Fibrin Yes -Necrosis Amt Medium (34-66%) -Necrotic Tissue Type Adherent Slough -Structure Exposed Bone -Texture ([place]yd[place]-wound Skin Appearance) Assessed, Scarring -Moisture ([place]ydney-wound Skin Appearance) Assessed -Color ([place]-wound Skin Appearance) Assessed -Temperature ([place]-wound Skin No Abnormality Appearance) (Pt Warm) -Tenderness on Palpation ([place]ydney-wound No Skin Appearance) -Ulcer Cleansing Wound Cleanser -Foul Odor after Cleansing No -Anesthetic Used 5% Lidocaine Gel #4- L HIP -Combined with other wound No -Current Size (cm) - Length 3 -Current Size (cm) - Width 2.5 -Current Size (cm) - Depth 0.5 -Total Square Cm 7.5 -Tunneling No -Undermining/Tunneling No -Circular Undermining No -Exudate Amt Large -Exudate Type Serosanguineous -Wound Margin Thickened & Rolled Under -Granulation Amt Medium (34-66%) -Granulation Quality [place] -Slough/Fibrin Yes -Necrosis Amt Medium (34-66%) -Necrotic Tissue Type Adherent Slough -Structure Exposed Bone -Texture ([place]yd[place]-wound Skin Appearance) Assessed, Scarring -Moisture ([place]-wound Skin Appearance) Assessed -Color ([place]-wound Skin Appearance) Assessed -Temperature ([place]-wound Skin No Abnormality Appearance) (Pt Warm) -Tenderness on Palpation (Cydney-wound No Skin Appearance) -Ulcer Cleansing Wound Cleanser -Foul Odor after Cleansing No -Anesthetic Used 5% Lidocaine Gel WC - Nurse 2 - General Ulcer CM Notes Start: 07/17/22 09:36 Freq: Status: Active Protocol: Activity Type Activity Date Activity User E-sign Co-sign Detail Recorded Client Recorded Date Recorded By Document 07/17/22 09:55 MW [id number] 07/17/22 10:12 MW 07/17/22 09:55 Wound Center Nurse 2 # 3 LEFT HIP CLUSTER -Time 09:56 -Tunneling No #7- R ISCHIUM -Time 09:55 -Correct Patient Yes -Correct Side, Site, Position Yes -Correct Procedure Yes -Procedure Performed Yes -Type of Procedure Debridement -Clinical Debridement Subcutaneous -Tissue Removed Subcutaneous -Post Debridement (cm) - Length 1.6 -Post Debridement (cm) - Width 1.0 -Post Debridement (cm) - Depth 0.1 -Total Square (Post) (cm) 1.60 -Area of Debridement (cm) - Length 1.6 -Area of Debridement (cm) - Width 1.0 -Total Square (Area) (cm) 1.60 -Tunneling No -Undermining/Tunneling No -Circular Undermining No -Wound/Ulcer Outcome Not Healed -Ulcer Cleansing Rinsed/ Irrigated with Saline -Foul Odor after Cleansing No -Bioengineered Tissue No -Bleeding Controlled with Pressure -Treatment Response Procedure Tolerated Well -Offloading No -Debridement - Subq, 1st 20sq cm Yes -Debridement, SubQ, ea addt'l 20sq cm 1 or part thereof #6- SACRAL CLUSTER -Time 09:55 -Correct Patient Yes -Correct Side, Site, Position Yes -Correct Procedure Yes -Procedure Performed Yes -Type of Procedure Debridement -Clinical Debridement Subcutaneous -Tissue Removed Subcutaneous -Post Debridement (cm) - Length 1.8 -Post Debridement (cm) - Width 3.0 -Post Debridement (cm) - Depth 0.2 -Total Square (Post) (cm) 5.40 -Area of Debridement (cm) - Length 1.8 -Area of Debridement (cm) - Width 3.0 -Total Square (Area) (cm) 5.40 -Tunneling No -Undermining/Tunneling No -Circular Undermining No -Wound/Ulcer Outcome Not Healed -Ulcer Cleansing Wound Cleanser -Foul Odor after Cleansing No -Bioengineered Tissue No -Bleeding Controlled with Pressure -Treatment Response Procedure Tolerated Well -Offloading No -Debridement - Subq, 1st 20sq cm No #5- R HIP -Time 09:56 -Correct Patient Yes -Correct Side, Site, Position Yes -Correct Procedure Yes -Procedure Performed Yes -Type of Procedure Debridement -Clinical Debridement Subcutaneous -Tissue Removed Subcutaneous -Post Debridement (cm) - Length 2.8 -Post Debridement (cm) - Width 3.0 -Post Debridement (cm) - Depth 0.5 -Total Square (Post) (cm) 8.40 -Area of Debridement (cm) - Length 2.8 -Area of Debridement (cm) - Width 3.0 -Total Square (Area) (cm) 8.40 -Tunneling No -Undermining/Tunneling No -Circular Undermining No -Wound/Ulcer Outcome Not Healed -Ulcer Cleansing Rinsed/ Irrigated with Saline -Foul Odor after Cleansing No -Bioengineered Tissue No -Bleeding Controlled with Pressure -Treatment Response Procedure Tolerated Well -Offloading No -Debridement - Subq, 1st 20sq cm No #4- L HIP -Time 09:56 -Correct Patient Yes -Correct Side, Site, Position Yes -Correct Procedure Yes -Procedure Performed Yes -Type of Procedure Debridement -Clinical Debridement Subcutaneous -Tissue Removed Subcutaneous -Post Debridement (cm) - Length 3.2 -Post Debridement (cm) - Width 3.0 -Post Debridement (cm) - Depth 1.2 -Total Square (Post) (cm) 9.60 -Area of Debridement (cm) - Length 3.2 -Area of Debridement (cm) - Width 3.0 -Total Square (Area) (cm) 9.60 -Tunneling No -Undermining/Tunneling No -Circular Undermining No -Wound/Ulcer Outcome Not Healed -Ulcer Cleansing Rinsed/ Irrigated with Saline -Foul Odor after Cleansing No -Bioengineered Tissue No -Bleeding Controlled with Pressure -Treatment Response Procedure Tolerated Well -Offloading No -Debridement - Subq, 20sq cm No Pain Scale: 0-10 Numeric Is Patient Pain Free? Yes Additional Wound Wound debrided: Left buttock Wound Grade/Stage: Stage III Type of Debridement: Excisional debridement Anesthesia Used: 4% Lidocaine Solution Depth: Down to and including healthy tissue and in the subcutaneous layer Percentage of wound debrided: 100 Instrument Used: 5mm curette Tissue Removed: Slough and devitalized tissue Severity: Fat Layer Exposed Amount of bleeding with debridement: Mild Bleeding Controlled with: Pressure Patient tolerated procedure: Patient tolerated procedure well Additional Wound Wound debrided: Right buttock (lateral) Wound Grade/Stage: Stage III Type of Debridement: Excisional debridement Anesthesia Used: 4% Lidocaine Solution Depth: Down to and including healthy tissue and in the subcutaneous layer Percentage of wound debrided: 100 Instrument Used: 5mm curette Tissue Removed: Slough and devitalized tissue Severity: Fat Layer Exposed Amount of bleeding with debridement: Mild Bleeding Controlled with: Pressure Patient tolerated procedure: Patient tolerated procedure well Additional Wound Wound debrided: Right buttock (medial) Type of Debridement: Excisional debridement Anesthesia Used: 4% Lidocaine Solution Depth: Down to and including healthy tissue and in the subcutaneous layer Percentage of wound debrided: 100 Instrument Used: 5mm curette Tissue Removed: Slough and devitalized tissue Severity: Fat Layer Exposed Amount of bleeding with debridement: Mild Bleeding Controlled with: Pressure Assessment/Plan Assessment/Plan (1) Decubitus ulcer of right buttock, stage 3: CODE(S): L89.313 - Pressure ulcer of right buttock, stage 3 (2) Decubitus ulcer of left buttock, stage 3: CODE(S): L89.323 - Pressure ulcer of left buttock, stage 3 (3) Sacral decubitus ulcer, stage III: CODE(S): L89.153 - Pressure ulcer of sacral region, stage 3 (4) Multiple sclerosis: CODE(S): G35 - Multiple sclerosis (5) Debility: CODE(S): R53.81 - Other malaise PLAN: Plan Debridement done as documented above, procedure was well-tolerated. Overall stable. Mild increase skin irritation on the right lateral ulcer. Continue Medihoney and Aquacel extra, cover with foam dressing. Adaptic to the sacral area due to crusting noted. Continue offloading adequate protein intake. Follow-up in 2 weeks. Continue other chronic care/management. Her questions were answered and she was advised to call with any further questions or concerns. This note was generated with [employer] dictation software. It may contain incorrect words, spelling, and punctuation that were not noted in checking the note before signing.
[2022-07-31 09:43] VITALS: BP 113/74; PULSE 59; RESP 18; TEMP 36.6
--- NOTE | 2022-07-31 13:11 | PCM.WC.PN ---
History of Present Illness Date of Service: 07/31/22 Chief Complaint: Nonhealing sacral and bilateral buttock ulcers History of Wound: The patient is a 56-year-old who [facility] to a chronic, nonhealing sacral and bilateral buttock ulcers. Chronic ulcers for which she has been seen here in the past. Last seen here over 2 months ago. History of multiple sclerosis with bilateral lower extremity paresis. Since her last visit, she states that she has been applying Medihoney and Aquacel to the ulcers daily. Also has somebody who comes in overnight and helps her change her position every 2 hours. Has a nurse that comes in from her multiple sclerosis clinic twice a week that helps with wound changes as well. Have remained clean since she had the colostomy placed. She states that her nutrition is also improved with a colostomy in place. She states that she has been taking Premier protein and Leobardo supplements. She feels well overall, no chills, fever, nausea or vomiting. Progress of Wound: Stable/improving ulcers, no new concerns at this time. Objective Data Objective Data Vital Signs: Vital Signs Temp Pulse Resp BP 98 F 59 L 18 113/74 07/31/22 09:43 07/31/22 09:43 07/31/22 09:43 07/31/22 09:43 Charges/Coding Procedures Integumentary 111xxx-113xx: 49024 Natalia subq tissue 20 sq cm/< Add On Codes: 31537 Natalia subq tissue add-on (x1. Additional square centimeter debrided, please refer to clinical note.) Physical Exam Const alert and no apparent distress HEENT head/scalp atraumatic and moist oral mucous membranes Resp normal respiratory effort GI normal to inspection, nondistended, normoactive bowel sounds, soft to palpation and non-tender Extremity normal to inspection Skin Wounds: wounds noted Psych mental status grossly normal, thought process normal, cooperative and affect normal Appearance: grossly normal Attitude: calm Debridement Note Debridement Note Wound debrided: Sacral Cluster Wound Grade/Stage: Stage III Type of Debridement: Excisional debridement Anesthesia Used: 4% Lidocaine Solution Depth: Down to and including healthy tissue and in the subcutaneous layer Percentage of wound debrided: 100 Instrument Used: 5mm curette Tissue Removed: Slough and devitalized tissue Severity: Fat Layer Exposed Amount of bleeding with debridement: Mild Bleeding Controlled with: Pressure Patient tolerated procedure: Patient tolerated procedure well Post-Debridement Measurements and Additional Note: Post-Debridement Measurements/Treatment WC - Nurse 1 - General Ulcer Assessment Start: 07/17/22 09:36 Freq: Status: Active Protocol: ASHLEY Activity Type Activity Date Activity User E-sign Co-sign Detail Recorded Client Recorded Date Recorded By Document 07/17/22 09:36 RB [id number] 07/17/22 09:40 RB Document 07/31/22 09:43 RB [id number] 07/31/22 10:04 RB 07/17/22 07/31/22 09:36 09:43 WC - Today's Visit Information Type of service Follow-up Visit Follow-up Visit (Physician/VOICE NETWORK ENGINEER (Physician/VOICE NETWORK ENGINEER ) ) Arrival Mode Wheelchair Wheelchair Transfer Assistance Manual Manual Patient Identification Verified (Name & Yes Yes ) Patient Requires Transmission-Based No No Precautions Vital Signs Temperature (97.8 F-99.1 F) 97 F L 98 F Temperature Source Temporal Temporal Pulse Rate (60-100) 64 59 L Pulse Location Monitor Monitor Respiratory Rate (12-18) 18 18 Respiratory rate source Observation Observation Blood Pressure (90/60-120/80) 122/69 H 113/74 Blood Pressure Mean (mm Hg) 86 87 Source Monitor Monitor Position Semi-Fowlers Semi-Fowlers Blood Pressure Location Left Arm Left Arm History Since Last Visit- (Skip if this is Patient's initial visit) Have you changed medications since your No No last visit? Any new allergies or adverse reactions No No Had a fall/change in ADL's that may No No increase risk of falls Signs or symptoms of abuse and/or No No neglect since last visit Have you been in the hospital since your No No last visit? Has dressing in place as prescribed Yes Yes Has compression in place as prescribed No No Has offloadiing in place as prescribed Yes Yes Experienced any changes in pain level or No No management Pain Scale: 0-10 Numeric Is Patient Pain Free? Yes Yes - Nurse 1 - General Ulcer Measurement Start: 07/17/22 09:36 Freq: Status: Active Protocol: Activity Type Activity Date Activity User E-sign Co-sign Detail Recorded Client Recorded Date Recorded By Document 07/17/22 09:36 RB [id number] 05/04/23 09:40 RB Document 07/31/22 09:43 RB [id number] 07/31/22 10:04 RB 07/17/22 07/31/22 09:36 09:43 Wound Center Nurse 1 #7- R ISCHIUM -Combined with other wound No No -Current Size (cm) - Length 1.4 1.7 -Current Size (cm) - Width 1.3 1 -Current Size (cm) - Depth 0.1 0.1 -Total Square Cm 1.82 1.7 -Photo Taken Yes -Tunneling No No -Undermining/Tunneling No No -Circular Undermining No No -Exudate Amt Medium Large -Exudate Type Serosanguineous Serosanguineous -Wound Margin Distinct, Thickened & Outline Rolled Under Attached -Granulation Amt Medium (34-66%) Medium (34-66%) -Granulation Quality [place] -Slough/Fibrin Yes Yes -Necrosis Amt Medium (34-66%) Medium (34-66%) -Necrotic Tissue Type Adherent Slough Adherent Slough -Structure Exposed N/A N/A -Texture (Cydney-wound Skin Appearance) Not Assessed, Assessed, Scarring Scarring -Moisture (Cydney-wound Skin Appearance) Assessed Assessed -Color (Cydney-wound Skin Appearance) Assessed Assessed -Temperature ([place]ydney-wound Skin No Abnormality No Abnormality Appearance) (Pt Warm) (Pt Warm) -Tenderness on Palpation (Cydney-wound No No Skin Appearance) -Ulcer Cleansing Wound Cleanser Wound Cleanser -Foul Odor after Cleansing No -Anesthetic Used 5% Lidocaine 5% Lidocaine Gel Gel #6- SACRAL CLUSTER -Combined with other wound No No -Current Size (cm) - Length 2.8 0.8 -Current Size (cm) - Width 2 0.4 -Current Size (cm) - Depth 0.4 0.2 -Total Square Cm 5.6 0.32 -Photo Taken Yes -Tunneling No No -Undermining/Tunneling No No -Circular Undermining No No -Exudate Amt Medium Large -Exudate Type Serosanguineous Serosanguineous -Wound Margin Distinct, Distinct, Outline Outline Attached Attached -Granulation Amt Large (67-100%) Medium (34-66%) -Granulation Quality [place] -Slough/Fibrin Yes Yes -Necrosis Amt Medium (34-66%) Medium (34-66%) -Necrotic Tissue Type Adherent Slough Adherent Slough -Structure Exposed N/A N/A -Texture (Cydney-wound Skin Appearance) Assessed, Assessed, Scarring Scarring -Moisture (Cydney-wound Skin Appearance) Assessed Assessed -Color (Cydney-wound Skin Appearance) Assessed Assessed -Temperature ([place]ydney-wound Skin No Abnormality No Abnormality Appearance) (Pt Warm) (Pt Warm) -Tenderness on Palpation (Cydnye-wound No No Skin Appearance) -Ulcer Cleansing Wound Cleanser Wound Cleanser -Foul Odor after Cleansing No No -Anesthetic Used 5% Lidocaine 5% Lidocaine Gel Gel #5- R HIP -Combined with other wound No No -Current Size (cm) - Length 3.5 3.3 -Current Size (cm) - Width 3 2.5 -Current Size (cm) - Depth 0.5 0.5 -Total Square Cm 10.5 8.25 -Photo Taken Yes -Tunneling No No -Undermining/Tunneling No No -Circular Undermining No No -Exudate Amt Large -Exudate Type Serosanguineous Serosanguineous -Wound Margin Thickened & Thickened & Rolled Under Rolled Under -Granulation Amt Medium (34-66%) Medium (34-66%) -Granulation Quality [place] -Slough/Fibrin Yes Yes -Necrosis Amt Medium (34-66%) Medium (34-66%) -Necrotic Tissue Type Adherent Slough Adherent Slough -Structure Exposed Bone Bone -Texture (Cydney-wound Skin Appearance) Assessed, Assessed Scarring -Moisture ([place]ydney-wound Skin Appearance) Assessed Assessed -Color (Cydney-wound Skin Appearance) Assessed Assessed -Temperature ([place]ydney-wound Skin No Abnormality No Abnormality Appearance) (Pt Warm) (Pt Warm) -Tenderness on Palpation (Cydney-wound No No Skin Appearance) -Ulcer Cleansing Wound Cleanser Wound Cleanser -Foul Odor after Cleansing No No -Anesthetic Used 5% Lidocaine 5% Lidocaine Gel Gel #4- L HIP -Combined with other wound No No -Current Size (cm) - Length 3 3 -Current Size (cm) - Width 2.5 2.5 -Current Size (cm) - Depth 0.5 0.4 -Total Square Cm 7.5 7.5 -Photo Taken Yes -Tunneling No No -Undermining/Tunneling No No -Circular Undermining No No -Exudate Amt Large Large -Exudate Type Serosanguineous Serosanguineous -Wound Margin Thickened & Thickened & Rolled Under Rolled Under -Granulation Amt Medium (34-66%) Medium (34-66%) -Granulation Quality [place] -Slough/Fibrin Yes Yes -Necrosis Amt Medium (34-66%) Medium (34-66%) -Necrotic Tissue Type Adherent Slough Adherent Slough -Structure Exposed Bone Bone -Texture (Cydney-wound Skin Appearance) Assessed, Assessed, Scarring Scarring -Moisture (Cydney-wound Skin Appearance) Assessed -Color (Cydney-wound Skin Appearance) Assessed Assessed -Temperature (Cydney-wound Skin No Abnormality No Abnormality Appearance) (Pt Warm) (Pt Warm) -Tenderness on Palpation (Cydney-wound No No Skin Appearance) -Ulcer Cleansing Wound Cleanser Wound Cleanser -Foul Odor after Cleansing No No -Anesthetic Used 5% Lidocaine 5% Lidocaine Gel Gel WC - Nurse 2 - General Ulcer CM Notes Start: 07/17/22 09:36 Freq: Status: Active Protocol: Activity Type Activity Date Activity User E-sign Co-sign Detail Recorded Client Recorded Date Recorded By Document 07/17/22 09:55 MW [id number] 07/17/22 10:12 MW Document 07/31/22 10:24 [id number] 07/31/22 10:38 JF 07/17/22 07/31/22 09:55 10:24 Wound Center Nurse 2 # 3 LEFT HIP CLUSTER -Time 09:56 -Tunneling No #7- R ISCHIUM -Time 09:55 10:25 -Correct Patient Yes Yes -Correct Side, Site, Position Yes Yes -Correct Procedure Yes Yes -Procedure Performed Yes Yes -Type of Procedure Debridement Debridement -Clinical Debridement Subcutaneous Subcutaneous -Tissue Removed Subcutaneous Subcutaneous -Post Debridement (cm) - Length 1.6 1.5 -Post Debridement (cm) - Width 1.0 1.0 -Post Debridement (cm) - Depth 0.1 0.1 -Total Square (Post) (cm) 1.60 1.50 -Area of Debridement (cm) - Length 1.6 1.5 -Area of Debridement (cm) - Width 1.0 1.0 -Total Square (Area) (cm) 1.60 1.50 -Tunneling No No -Undermining/Tunneling No No -Circular Undermining No No -Wound/Ulcer Outcome Not Healed Not Healed -Ulcer Cleansing Rinsed/ Rinsed/ Irrigated with Irrigated with Saline Saline -Foul Odor after Cleansing No No -Bioengineered Tissue No No -Bleeding Controlled with Pressure Pressure -Treatment Response Procedure Procedure Tolerated Well Tolerated Well -Offloading No No -Pressure Reduction Wheelchair cushion -Debridement - Subq, 1st 20sq cm Yes No -Debridement, SubQ, ea addt'l 20sq cm 1 or part thereof #6- SACRAL CLUSTER -Time 09:55 10:28 -Correct Patient Yes Yes -Correct Side, Site, Position Yes Yes -Correct Procedure Yes Yes -Procedure Performed Yes Yes -Type of Procedure Debridement Debridement -Clinical Debridement Subcutaneous Subcutaneous -Tissue Removed Subcutaneous Subcutaneous -Post Debridement (cm) - Length 1.8 1.3 -Post Debridement (cm) - Width 3.0 3 -Post Debridement (cm) - Depth 0.2 0.2 -Total Square (Post) (cm) 5.40 3.9 -Area of Debridement (cm) - Length 1.8 1.3 -Area of Debridement (cm) - Width 3.0 3.0 -Total Square (Area) (cm) 5.40 3.90 -Tunneling No No -Undermining/Tunneling No No -Circular Undermining No No -Wound/Ulcer Outcome Not Healed Not Healed -Ulcer Cleansing Wound Cleanser Rinsed/ Irrigated with Saline -Foul Odor after Cleansing No No -Bioengineered Tissue No No -Bleeding Controlled with Pressure Pressure -Treatment Response Procedure Procedure Tolerated Well Tolerated Well -Offloading No No -Pressure Reduction Wheelchair cushion -Debridement - Subq, 1st 20sq cm No No #5- R HIP -Time 09:56 10:28 -Correct Patient Yes Yes -Correct Side, Site, Position Yes Yes -Correct Procedure Yes Yes -Procedure Performed Yes Yes -Type of Procedure Debridement Debridement -Clinical Debridement Subcutaneous Subcutaneous -Tissue Removed Subcutaneous Subcutaneous -Post Debridement (cm) - Length 2.8 2.5 -Post Debridement (cm) - Width 3.0 3.5 -Post Debridement (cm) - Depth 0.5 0.5 -Total Square (Post) (cm) 8.40 8.75 -Area of Debridement (cm) - Length 2.8 2.5 -Area of Debridement (cm) - Width 3.0 3.5 -Total Square (Area) (cm) 8.40 8.75 -Tunneling No No -Undermining/Tunneling No No -Circular Undermining No No -Wound/Ulcer Outcome Not Healed Not Healed -Ulcer Cleansing Rinsed/ Rinsed/ Irrigated with Irrigated with Saline Saline -Foul Odor after Cleansing No No -Bioengineered Tissue No No -Bleeding Controlled with Pressure Pressure -Treatment Response Procedure Procedure Tolerated Well Tolerated Well -Offloading No No -Pressure Reduction Wheelchair cushion -Debridement - Subq, 1st 20sq cm No No #4- L HIP -Time 09:56 10:29 -Correct Patient Yes No -Correct Side, Site, Position Yes No -Correct Procedure Yes No -Procedure Performed Yes No -Type of Procedure Debridement Debridement -Clinical Debridement Subcutaneous Subcutaneous -Tissue Removed Subcutaneous Subcutaneous -Post Debridement (cm) - Length 3.2 3.4 -Post Debridement (cm) - Width 3.0 2.7 -Post Debridement (cm) - Depth 1.2 0.7 -Total Square (Post) (cm) 9.60 9.18 -Area of Debridement (cm) - Length 3.2 3.4 -Area of Debridement (cm) - Width 3.0 2.7 -Total Square (Area) (cm) 9.60 9.18 -Tunneling No No -Undermining/Tunneling No No -Circular Undermining No No -Wound/Ulcer Outcome Not Healed Not Healed -Ulcer Cleansing Rinsed/ Rinsed/ Irrigated with Irrigated with Saline Saline -Foul Odor after Cleansing No No -Bioengineered Tissue No No -Bleeding Controlled with Pressure Pressure -Treatment Response Procedure Procedure Tolerated Well Tolerated Well -Offloading No No -Debridement - Subq, 1st 20sq cm No Yes -Debridement, SubQ, ea addt'l 20sq cm 1 or part thereof Pain Scale: 0-10 Numeric Is Patient Pain Free? Yes Yes WC - Nurse 3 - General Ulcer D/C NN Start: 07/17/22 09:36 Freq: Status: Active Protocol: Activity Type Activity Date Activity User E-sign Co-sign Detail Recorded Client Recorded Date Recorded By Document 07/17/22 10:12 MW [id number] 07/17/22 10:15 MW Document 07/31/22 10:56 BMF [id number] 07/31/22 11:00 BMF 07/17/22 07/31/22 10:12 10:56 Wound Care Center Nurse 3 #7- R ISCHIUM -Ulcer Cleansing Rinsed/ Rinsed/ Irrigated with Irrigated with Saline Saline -Foul Odor after Cleansing No No -Negative Pressure Wound Therapy N/A -Primary Dressing Applied Aquacel Extra, Aquacel Extra Mepilex Border -Other Dressing ABD -Primary Dressing Covered/Secured with Secured with Tape -Aquacel Extra 1 1 -Mepilex Border 1 #6- SACRAL CLUSTER -Ulcer Cleansing Rinsed/ Rinsed/ Irrigated with Irrigated with Saline Saline -Foul Odor after Cleansing No No -Negative Pressure Wound Therapy N/A -Primary Dressing Applied NonAdherent Aquacel Extra, Contact Layer, NonAdherent Mepilex Border Contact Layer -Other Dressing aquacel extra -Primary Dressing Covered/Secured with Secured with Tape -Other Covering ABD -Aquacel Extra 0 -Mepilex Border 1 #5- R HIP -Ulcer Cleansing Not Cleansed Rinsed/ Irrigated with Saline -Foul Odor after Cleansing No No -Negative Pressure Wound Therapy N/A -Primary Dressing Applied Mepilex Border Aquacel Extra -Other Dressing aquacel extra ABD -Primary Dressing Covered/Secured with Secured with Tape -Aquacel Extra 0 -Mepilex Border 1 #4- L HIP -Ulcer Cleansing Rinsed/ Rinsed/ Irrigated with Irrigated with Saline Saline -Foul Odor after Cleansing No No -Negative Pressure Wound Therapy N/A -Primary Dressing Applied Mepilex Border Aquacel Extra -Other Dressing aquacel extra ABD -Primary Dressing Covered/Secured with Dry Gauze, Secured with Tape -Aquacel Extra 0 -Mepilex Border 1 Treatment Response Procedure Procedure Tolerated Well Tolerated Well Pain Scale: 0-10 Numeric Is Patient Pain Free? Yes Yes Teaching: Wound Center Dressing Your Wound -Person Taught Patient,Primary Caregiver -Teaching Method Discussion -Response to teaching Verbalize understanding WC - Visit Discharge Discharge Condition Stable Stable Ambulatory Status Wheelchair Wheelchair Transportation Private Auto MS NURSE BRINGS Accompanied by caregiver Medication Reconcilliation completed & No provided to patient/care provider Clinical Summary of Care Provided Yes Additional Wound Wound debrided: Left buttock/Hip Wound Grade/Stage: Stage III Type of Debridement: Excisional debridement Anesthesia Used: 4% Lidocaine Solution Depth: Down to and including healthy tissue and in the subcutaneous layer Percentage of wound debrided: 100 Instrument Used: 5mm curette Tissue Removed: Slough and devitalized tissue Severity: Fat Layer Exposed Amount of bleeding with debridement: Mild Bleeding Controlled with: Pressure Patient tolerated procedure: Patient tolerated procedure well Additional Wound Wound debrided: Right buttock (lateral) Wound Grade/Stage: Stage III Type of Debridement: Excisional debridement Anesthesia Used: 4% Lidocaine Solution Depth: Down to and including healthy tissue and in the subcutaneous layer Percentage of wound debrided: 100 Instrument Used: 5mm curette Tissue Removed: Slough and devitalized tissue Severity: Fat Layer Exposed Amount of bleeding with debridement: Mild Bleeding Controlled with: Pressure Patient tolerated procedure: Patient tolerated procedure well Additional Wound Wound debrided: Right buttock (medial) Type of Debridement: Excisional debridement Anesthesia Used: 4% Lidocaine Solution Depth: Down to and including healthy tissue and in the subcutaneous layer Percentage of wound debrided: 100 Instrument Used: 5mm curette Tissue Removed: Slough and devitalized tissue Severity: Fat Layer Exposed Amount of bleeding with debridement: Mild Bleeding Controlled with: Pressure Assessment/Plan Assessment/Plan (1) Decubitus ulcer of right buttock, stage 3: CODE(S): L89.313 - Pressure ulcer of right buttock, stage 3 (2) Decubitus ulcer of left buttock, stage 3: CODE(S): L89.323 - Pressure ulcer of left buttock, stage 3 (3) Sacral decubitus ulcer, stage III: CODE(S): L89.153 - Pressure ulcer of sacral region, stage 3 (4) Multiple sclerosis: CODE(S): G35 - Multiple sclerosis (5) Debility: CODE(S): R53.81 - Other malaise PLAN: Plan Debridement done as documented above, procedure was well-tolerated. Ulcers with some improvement/stability. No new concerns at this time. Continue Medihoney and Aquacel extra, cover with foam dressing. Adaptic to the sacral area due to crusting noted. Continue offloading adequate protein intake. Follow-up in 2 weeks. Continue other chronic care/management. Her questions were answered and she was advised to call with any further questions or concerns. This note was generated with [employer] software. It may contain incorrect words, spelling, and punctuation that were not noted in checking the note before signing.
== END 2022-08-13 23:59 | disposition home or self-care (01) ==
LOC: WC 09:30
PROVIDERS: PCP Family Medicine; Referring Provider Nurse Practitioner Family; Visit Provider Internal Medicine
DX: L89.153 Pressure ulcer of sacral region, stage 3 (principal); L89.323 Pressure ulcer of left buttock, stage 3; L89.313 Pressure ulcer of right buttock, stage 3; G82.20 Paraplegia, unspecified; Z93.3 Colostomy status; G35 Multiple sclerosis; Z79.899 Other long term (current) drug therapy
CPT/HCPCS: 11042; 11045

== ENCOUNTER 2022-08-21 09:20 | Outpatient (RCR) | payer OTHER, SELFPAY ==
[2018-02-01 11:47] VITALS: BMI 15.0
[2022-08-14 00:13] VITALS: BP 113/74; PULSE 59; RESP 18; TEMP 36.6
[2022-08-21 09:28] VITALS: BP 108/78; PULSE 62; RESP 18; TEMP 36.2
--- NOTE | 2022-08-21 12:33 | PCM.WC.PN ---
History of Present Illness Date of Service: 08/21/22 Chief Complaint: Nonhealing sacral and bilateral buttock ulcers History of Wound: The patient is a 56-year-old who [facility] a chronic, nonhealing sacral and bilateral buttock ulcers. Chronic ulcers for which she has been seen here in the past. Last seen here over 2 months ago. History of multiple sclerosis with bilateral lower extremity paresis. Since her last visit, she states that she has been applying Medihoney and Aquacel to the ulcers daily. Also has somebody who comes in overnight and helps her change her position every 2 hours. Has a nurse that comes in from her multiple sclerosis clinic twice a week that helps with wound changes as well. Have remained clean since she had the colostomy placed. She states that her nutrition is also improved with a colostomy in place. She states that she has been taking Premier protein and Leobardo supplements. She feels well overall, no chills, fever, nausea or vomiting. Progress of Wound: Overall stable. Has some constraints in supplies due to cost. Has not used medihoney in 1 week and Aquacel extra is becoming to expensive for use. Objective Data Objective Data Vital Signs: Vital Signs Temp Pulse Resp BP 97.1 F L 62 18 108/78 08/21/22 09:28 08/21/22 09:28 08/21/22 09:28 08/21/22 09:28 Charges/Coding Procedures Integumentary 111xxx-113xx: [id number] Natalia subq tissue 20 sq cm/< Add On Codes: 09592 Natalia subq tissue add-on (x1 Additional square centimeter debrided, please refer to clinical note) Physical Exam Const alert and no apparent distress HEENT head/scalp atraumatic and moist oral mucous membranes Resp normal respiratory effort GI normal to inspection, nondistended, normoactive bowel sounds, soft to palpation and non-tender Extremity normal to inspection Skin Wounds: wounds noted Psych mental status grossly normal, thought process normal, cooperative and affect normal Appearance: grossly normal Attitude: calm Debridement Note Debridement Note Wound debrided: Sacral Cluster Wound Grade/Stage: Stage III Type of Debridement: Excisional debridement Anesthesia Used: 4% Lidocaine Solution Depth: Down to and including healthy tissue and in the subcutaneous layer Percentage of wound debrided: 100 Instrument Used: 5mm curette Tissue Removed: Slough and devitalized tissue Severity: Fat Layer Exposed Amount of bleeding with debridement: Mild Bleeding Controlled with: Pressure Patient tolerated procedure: Patient tolerated procedure well Post-Debridement Measurements and Additional Note: Post-Debridement Measurements/Treatment - Nurse 1 - General Ulcer Assessment Start: 08/21/22 09:23 Freq: Status: Active Protocol: ASHLEY Activity Type Activity Date Activity User E-sign Co-sign Detail Recorded Client Recorded Date Recorded By Document 08/21/22 09:28 DL [id number] 08/21/22 09:46 DL 08/21/22 09:28 WC - Today's Visit Information Type of service Follow-up Visit (Physician/DIRECTOR OF MUSIC ) Arrival Mode Wheelchair Transfer Assistance Manual Transfer Assist (Other) x1 Patient Identification Verified (Name & Yes ) Patient Requires Transmission-Based No Precautions Vital Signs Temperature (97.8 F-99.1 F) 97.1 F L Temperature Source Temporal Pulse Rate (60-100) 62 Pulse Location Apical Respiratory Rate (12-18) 18 Respiratory rate source Observation Blood Pressure (90/60-120/80) 108/78 Blood Pressure Mean (mm Hg) 88 Source Monitor History Since Last Visit- (Skip if this is Patient's initial visit) Have you changed medications since your No last visit? Any new allergies or adverse reactions No Had a fall/change in ADL's that may No increase risk of falls Signs or symptoms of abuse and/or No neglect since last visit Have you been in the hospital since your No last visit? Has dressing in place as prescribed Yes Has compression in place as prescribed Yes Has offloadiing in place as prescribed Yes Experienced any changes in pain level or No management Pain Scale: 0-10 Numeric Is Patient Pain Free? Yes - Nurse 1 - General Ulcer Measurement Start: 08/21/22 09:23 Freq: Status: Active Protocol: Activity Type Activity Date Activity User E-sign Co-sign Detail Recorded Client Recorded Date Recorded By Document 08/21/22 09:28 DL [id number] 08/21/22 09:46 DL 08/21/22 09:28 Wound Center Nurse 1 #7- R ISCHIUM -Current Size (cm) - Length 2 -Current Size (cm) - Width 1.3 -Current Size (cm) - Depth 0.2 -Total Square Cm 2.6 -Photo Taken Yes -Exudate Amt Medium -Exudate Type Serosanguineous -Wound Margin Thickened & Rolled Under -Granulation Amt Medium (34-66%) -Granulation Quality Red -Necrosis Amt Medium (34-66%) -Necrotic Tissue Type Adherent Slough -Structure Exposed N/A -Texture (Cydney-wound Skin Appearance) Scarring -Moisture (Cydney-wound Skin Appearance) No Abnormality -Color (Cydney-wound Skin Appearance) No Abnormality -Temperature (Cydney-wound Skin No Abnormality Appearance) (Pt Warm) -Tenderness on Palpation (Cydney-wound No Skin Appearance) -Ulcer Cleansing Soap and Water -Foul Odor after Cleansing No -Anesthetic Used 4% Lidocaine Solution #6- SACRAL CLUSTER -Current Size (cm) - Length 0.7 -Current Size (cm) - Width 0.4 -Current Size (cm) - Depth 0.2 -Total Square Cm 0.28 -Photo Taken Yes -Exudate Amt None Present -Wound Margin Distinct, Outline Attached -Granulation Amt Small (1-33%) -Granulation Quality [place] -Necrosis Amt None Present (0 %) -Structure Exposed N/A -Texture (Cydney-wound Skin Appearance) Scarring -Moisture (Cydney-wound Skin Appearance) No Abnormality -Color (Cydney-wound Skin Appearance) No Abnormality -Tenderness on Palpation (Cydney-wound No Skin Appearance) -Ulcer Cleansing Not Cleansed -Foul Odor after Cleansing No -Anesthetic Used 4% Lidocaine Solution #5- R HIP -Current Size (cm) - Length 2.3 -Current Size (cm) - Width 3 -Current Size (cm) - Depth 0.4 -Total Square Cm 6.9 -Photo Taken Yes -Undermining/Tunneling Starts (O'clock 9 ) -Undermining/Tunneling Ends (O'clock) 1 -Maximum Distance (cm) 1.3 -Exudate Amt Medium -Exudate Type Serosanguineous -Wound Margin Thickened & Rolled Under -Granulation Amt Medium (34-66%) -Granulation Quality Red -Necrosis Amt Medium (34-66%) -Necrotic Tissue Type Adherent Slough -Structure Exposed N/A -Texture (Cydney-wound Skin Appearance) Scarring -Moisture (Cydney-wound Skin Appearance) No Abnormality, Assessed -Temperature (Cydney-wound Skin No Abnormality Appearance) (Pt Warm) -Tenderness on Palpation (Cydney-wound No Skin Appearance) -Ulcer Cleansing Soap and Water -Foul Odor after Cleansing No -Anesthetic Used 4% Lidocaine Solution #4- L HIP -Current Size (cm) - Length 2.8 -Current Size (cm) - Width 2.8 -Current Size (cm) - Depth 1 -Total Square Cm 7.84 -Photo Taken Yes -Undermining/Tunneling Starts (O'clock 10 ) -Undermining/Tunneling Ends (O'clock) 4 -Maximum Distance (cm) 1.5 -Exudate Amt Medium -Exudate Type Serosanguineous -Wound Margin Thickened & Rolled Under -Granulation Amt Medium (34-66%) -Granulation Quality Red -Necrosis Amt Medium (34-66%) -Necrotic Tissue Type Adherent Slough -Structure Exposed N/A -Texture (Cydney-wound Skin Appearance) Scarring -Moisture (Cydney-wound Skin Appearance) No Abnormality -Color (Cydney-wound Skin Appearance) No Abnormality -Temperature (Cydney-wound Skin No Abnormality Appearance) (Pt Warm) -Tenderness on Palpation (Cydney-wound No Skin Appearance) -Ulcer Cleansing Soap and Water -Foul Odor after Cleansing No -Anesthetic Used 4% Lidocaine Solution WC - Nurse 2 - General Ulcer CM Notes Start: 08/21/22 09:23 Freq: Status: Active Protocol: Activity Type Activity Date Activity User E-sign Co-sign Detail Recorded Client Recorded Date Recorded By Document 08/21/22 10:23 MW [id number] 08/21/22 10:42 MW 08/21/22 10:23 Wound Center Nurse 2 #7- R ISCHIUM -Time 10:25 -Correct Patient Yes -Correct Side, Site, Position Yes -Correct Procedure Yes -Procedure Performed Yes -Type of Procedure Debridement -Clinical Debridement Subcutaneous -Tissue Removed Subcutaneous -Post Debridement (cm) - Length 1.8 -Post Debridement (cm) - Width 2.0 -Post Debridement (cm) - Depth 0.1 -Total Square (Post) (cm) 3.60 -Area of Debridement (cm) - Length 1.8 -Area of Debridement (cm) - Width 2.0 -Total Square (Area) (cm) 3.60 -Tunneling No -Undermining/Tunneling No -Circular Undermining No -Wound/Ulcer Outcome Not Healed -Ulcer Cleansing Rinsed/ Irrigated with Saline -Foul Odor after Cleansing No -Bioengineered Tissue No -Bleeding Controlled with Pressure -Treatment Response Procedure Tolerated Well -Offloading No -Debridement - Subq, 1st 20sq cm Yes -Debridement, SubQ, ea addt'l 20sq cm 1 or part thereof #6- SACRAL CLUSTER -Time 10:25 -Correct Patient Yes -Correct Side, Site, Position Yes -Correct Procedure Yes -Procedure Performed Yes -Type of Procedure Debridement -Clinical Debridement Subcutaneous -Tissue Removed Subcutaneous -Post Debridement (cm) - Length 1.5 -Post Debridement (cm) - Width 2.5 -Post Debridement (cm) - Depth 0.2 -Total Square (Post) (cm) 3.75 -Area of Debridement (cm) - Length 1.5 -Area of Debridement (cm) - Width 2.5 -Total Square (Area) (cm) 3.75 -Tunneling No -Undermining/Tunneling No -Circular Undermining No -Wound/Ulcer Outcome Not Healed -Ulcer Cleansing Rinsed/ Irrigated with Saline -Foul Odor after Cleansing No -Bioengineered Tissue No -Bleeding Controlled with Pressure -Treatment Response Procedure Tolerated Well -Offloading No -Debridement - Subq, 1st 20sq cm No #5- R HIP -Time 10:25 -Correct Patient Yes -Correct Side, Site, Position Yes -Correct Procedure Yes -Procedure Performed Yes -Type of Procedure Debridement -Clinical Debridement Subcutaneous -Tissue Removed Subcutaneous -Post Debridement (cm) - Length 2.4 -Post Debridement (cm) - Width 2.5 -Post Debridement (cm) - Depth 0.4 -Total Square (Post) (cm) 6.00 -Area of Debridement (cm) - Length 2.4 -Area of Debridement (cm) - Width 2.5 -Total Square (Area) (cm) 6.00 -Tunneling No -Undermining/Tunneling No -Circular Undermining No -Wound/Ulcer Outcome Not Healed -Ulcer Cleansing Rinsed/ Irrigated with Saline -Foul Odor after Cleansing No -Bioengineered Tissue No -Bleeding Controlled with Pressure -Treatment Response Procedure Tolerated Well -Offloading No -Debridement - Subq, 1st 20sq cm No #4- L HIP -Time 10:26 -Correct Patient Yes -Correct Side, Site, Position Yes -Correct Procedure Yes -Procedure Performed Yes -Type of Procedure Debridement -Clinical Debridement Subcutaneous -Tissue Removed Subcutaneous -Post Debridement (cm) - Length 3.3 -Post Debridement (cm) - Width 2.7 -Post Debridement (cm) - Depth 0.9 -Total Square (Post) (cm) 8.91 -Area of Debridement (cm) - Length 3.3 -Area of Debridement (cm) - Width 2.7 -Total Square (Area) (cm) 8.91 -Tunneling No -Undermining/Tunneling No -Circular Undermining No -Wound/Ulcer Outcome Not Healed -Ulcer Cleansing Rinsed/ Irrigated with Saline -Foul Odor after Cleansing No -Bioengineered Tissue No -Bleeding Controlled with Pressure -Treatment Response Procedure Tolerated Well -Offloading No -Debridement - Subq, 1st 20sq cm No Pain Scale: 0-10 Numeric Is Patient Pain Free? Yes - Nurse 3 - General Ulcer D/C NN Start: 08/21/22 09:23 Freq: Status: Active Protocol: Activity Type Activity Date Activity User E-sign Co-sign Detail Recorded Client Recorded Date Recorded By Document 08/21/22 10:47 DL [id number] 08/21/22 10:50 DL 08/21/22 10:47 Wound Care Center Nurse 3 #7- R ISCHIUM -Ulcer Cleansing Rinsed/ Irrigated with Saline -Foul Odor after Cleansing No -Primary Dressing Applied Aquacel Extra, Mepilex Border -Aquacel Extra 1 -Mepilex Border 1 #6- SACRAL CLUSTER -Ulcer Cleansing Rinsed/ Irrigated with Saline -Foul Odor after Cleansing No -Primary Dressing Applied Mepilex Border -Other Dressing aquacel ex -Mepilex Border 1 #5- R HIP -Ulcer Cleansing Not Cleansed -Primary Dressing Applied Mepilex Border -Other Dressing aqaucel ex -Mepilex Border 1 #4- L HIP -Ulcer Cleansing Rinsed/ Irrigated with Saline -Foul Odor after Cleansing No -Primary Dressing Applied Mepilex Border -Other Dressing aquacel ex -Mepilex Border 1 Treatment Response Procedure Tolerated Well Pain Scale: 0-10 Numeric Is Patient Pain Free? Yes - Visit Discharge Discharge Condition Stable Ambulatory Status Wheelchair Transportation Private Auto Accompanied by caregiver Additional Wound Wound debrided: Left buttock/Hip Wound Grade/Stage: Stage III Type of Debridement: Excisional debridement Anesthesia Used: 4% Lidocaine Solution Depth: Down to and including healthy tissue and in the subcutaneous layer Percentage of wound debrided: 100 Instrument Used: 5mm curette Tissue Removed: Slough and devitalized tissue Severity: Fat Layer Exposed Amount of bleeding with debridement: Mild Bleeding Controlled with: Pressure Patient tolerated procedure: Patient tolerated procedure well Additional Wound Wound debrided: Right buttock (lateral) Wound Grade/Stage: Stage III Type of Debridement: Excisional debridement Anesthesia Used: 4% Lidocaine Solution Depth: Down to and including healthy tissue and in the subcutaneous layer Percentage of wound debrided: 100 Instrument Used: 5mm curette Tissue Removed: Slough and devitalized tissue Severity: Fat Layer Exposed Amount of bleeding with debridement: Mild Bleeding Controlled with: Pressure Patient tolerated procedure: Patient tolerated procedure well Additional Wound Wound debrided: Right buttock (medial) Type of Debridement: Excisional debridement Anesthesia Used: 4% Lidocaine Solution Depth: Down to and including healthy tissue and in the subcutaneous layer Percentage of wound debrided: 100 Instrument Used: 5mm curette Tissue Removed: Slough and devitalized tissue Severity: Fat Layer Exposed Amount of bleeding with debridement: Mild Bleeding Controlled with: Pressure Assessment/Plan Assessment/Plan (1) Decubitus ulcer of right buttock, stage 3: CODE(S): L89.313 - Pressure ulcer of right buttock, stage 3 (2) Decubitus ulcer of left buttock, stage 3: CODE(S): L89.323 - Pressure ulcer of left buttock, stage 3 (3) Sacral decubitus ulcer, stage III: CODE(S): L89.153 - Pressure ulcer of sacral region, stage 3 (4) Multiple sclerosis: CODE(S): G35 - Multiple sclerosis (5) Debility: CODE(S): R53.81 - Other malaise PLAN: Plan Debridement done as documented above, procedure was well-tolerated. Ulcers overall stable however due to cost constraints, will switch to 10mins Dakin's soak and then medi honey. Adaptic to the sacral area due to crusting noted. Continue offloading and adequate protein intake. Follow-up in 4 weeks however they were strongly advised to call/ come in sooner if any concern is noted. Patient and caregiver voiced understanding. Continue other chronic care/management. Her questions were answered and she was advised to call with any further questions or concerns. This note was generated with Dragon dictation software. It may contain incorrect words, spelling, and punctuation that were not noted in checking the note before signing.
== END 2022-09-12 23:59 | disposition home or self-care (01) ==
LOC: WC 09:20
PROVIDERS: PCP Family Medicine; Referring Provider Nurse Practitioner Family; Visit Provider Internal Medicine
DX: L89.153 Pressure ulcer of sacral region, stage 3 (principal); L89.323 Pressure ulcer of left buttock, stage 3; L89.313 Pressure ulcer of right buttock, stage 3; Z93.3 Colostomy status; G35 Multiple sclerosis; R53.81 Other malaise; Z79.899 Other long term (current) drug therapy
CPT/HCPCS: 11042; 11045

== ENCOUNTER → 2022-08-21 | Outpatient (CLI) | payer OTHER, SELFPAY ==
[2018-02-01 11:47] VITALS: BMI 15.0
[2022-08-25 15:08] LABS: HPV APTIMA, High Risk Negative (Negative)
== END | disposition home or self-care (01) ==
LOC: WOBLAB 11:45
PROVIDERS: PCP Family Medicine; Visit Provider Nurse Practitioner Women's Health
DX: Z12.4 Encounter for screening for malignant neoplasm of cervix (principal)
CPT/HCPCS: 87624; 88175; G0145

== ENCOUNTER 2022-09-29 16:09 | Outpatient (RCR) | payer OTHER, SELFPAY ==
[2018-02-01 11:47] VITALS: BMI 15.0
--- NOTE | 2022-09-29 20:06 | HP.PTEVAL ---
Patient's Visit Information Visit Information Visit Information: CASPER CHRISTENSEN is a 57 year old F referred to Physical Therapy by Dr. Sin Raygoza MD with a diagnosis of MULTIPLE SCLEROSIS. Date of Evaluation: 09/29/22 Physical Therapist: Miguel Elena PT, Cert MDT, OCS Visit Plan Frequency: 1visit Plan: This patient has multiple sclerosis with dependent with transfers ,weak BUE and no strength in legs with spasticity. Patient has weakness BUE thus is unable to weight shift to prevent decubitus ulcer .Using the pressure mapping on original seat cushion shows increase pressure on ischium and coccyx. With Roho cushion properly inflated pressure mapping is improved ,thus recommended Roho cushion to prevent decubitus ulcers. Subjective Subjective: This 57 y/o female presents with with Multiple sclerosis with needing seating cushion. Patient has had multiple sclerosis many years.. Patient had PT in past . Patient fracture left hip femur 2019 . Patient is PMD all day thus patient has developed stage IV decubitus ulcers ischium and lateral hips Patient currently has decline function past 2 years with weakness and spasticity in legs and has bactofilin pump. Patient has knee flexion contractions and weakness BUE. Patient is dependent with transfers and ADLS with dressing and bathing .Patient has lift chair to entrance . Patient has walk in shower with seat and and grab rails. Patient lives alone but has 24 hour care by [employer]PER[employer] and son . [employer] O[employer] is there 6 days/week and son other times. Patient needing seated Roho cushion to prevent decubi ulcers. SOCIAL: lives alone but has 24 care Pain Bilateral Buttocks: Pain Intensity (Out of 10): 10 Pain Intensity Range: 10 Comment: ischium and 8/10 femur Objective Objective: POSTURE: right scoliosis convex ,right leg asymmetrical right leg shorter ~ 1 inch severe increase lordosis ,scapular NEURO: spasticity in lower legs ,decrease reflexes ,no M[place]tome strength ,light touch intact , c/o paresthesia/tingling in feet SKIN INTEGRITY: decubi ulcers stage IV ischium, lateral hips PROM: knee flexion contracture left 80 for 0, right 75 degrees from 0 ,hip flexion 100 degrees AROM: BUE WFL except AROM left shoulder flexion 90 degrees ,130 degrees right MMT: 0/5 BLE , BUE grossly 3+/5 shoulder 3/5 MOBILITY : no ambulatory , uses PM[employer] Electric wheelchair TRANSFERS : dependent with transfers BED MOBILITY : max assist SIITING: fair Goals Goal 1:: Provide roho cushion to prevent decubitus ulcers Rehabilitation Potential Physical Therapy Diagnosis: This patient has multiple sclerosis with dependent with transfers ,weak BUE and no strength in legs with spasticity. Patient has weakness BUE thus is unable to weight shift to prevent decubi ulcer .Using the pressure mapping on original seat cushion shows increase pressure on ischium and coccyx. With Roho cushion properly inflated pressure mapping is improved ,thus recommended Roho cushion Rehabilitation Potential: Good Anticipated Interventions Patient/Client Instruction: Educate patient on: Condition and Plan of Care For the Purpose of:: Other Other: roho cushion Text: Thank you for the opportunity to evaluate your patient. For Medicare and Medicare HMO plans, please review the plan of care and approve it. It will need to be FAXED BACK to us at [phone] for Medicare purposes. For Medicare only, by signing this I certify the plan of care. Please let me know if there are questions or concerns regarding this plan of care. Physician Signature: Date:
--- NOTE | 2022-10-06 13:39 | WC ---
Received a call from patient stating she saw Dr. Viveros last week on for her baclofen pump that was placed under the skin at belly button by him. She stated the pump is migrating and protruding through the abdominal skin. Dr. Ross notified of open area at pump site and pump is now visible. Dr. Ross instructed that patient needs to call Dr. Viveros's office or go to ER for pump evaluation. Patient voiced understanding.
== END 2022-09-29 19:00 | disposition home or self-care (01) ==
LOC: PT 16:09
PROVIDERS: PCP Family Medicine; Referring Provider Internal Medicine; Visit Provider Internal Medicine
DX: G35 Multiple sclerosis (principal)
CPT/HCPCS: 97163

== ENCOUNTER → 2022-09-29 | Outpatient (CLI) | payer OTHER, SELFPAY ==
[2018-02-01 11:47] VITALS: BMI 15.0
--- NOTE | 2022-09-29 14:25 | BI_ITS ---
MAMMOGRAPHY - UNILATERAL DIAGNOSTIC: RIGHT BREAST REASON FOR EXAM: Female, 57 years old. lump felt in right breast PERTINENT HISTORY: Non-contributory. TECHNIQUE: Digital examination. Mediolateral oblique (MLO) and craniocaudad (CC) views of the breast were obtained, along with 3-D tomosynthesis CAD: CAD was performed on this study. COMPARISON: 07/10/2021 FINDINGS: Breast Composition: The breasts are heterogeneously dense, which may obscure small masses. There are no dominant masses or suspicious calcifications. No other significant abnormalities are identified. However, because the patient complains of a right breast lump, further evaluation of the right breast with ultrasound is recommended. BI/DIAG MAMM W/CAD, UNILAT IMPRESSION: Further ultrasonographic evaluation recommended, as described above. Recall Side: Right Breast ASSESSMENT CATEGORY: BIRADS Category 0: Incomplete. Need additional imaging evaluation. A letter regarding these results will be sent to the patient by the facility within 30 days. FOLLOW-UP RECOMMENDATION: Ultrasound recommended. (I) Approximately 10% of breast cancers are not detected by mammography. A normal mammogram should not delay biopsy of a clinically suspicious abnormality. Electronically Signed: Tima Arevalo MD at 15:18 EDT ,
--- NOTE | 2022-09-29 14:25 | US_ITS ---
STUDY: ULTRASOUND BREAST - RIGHT REASON FOR EXAM: Female, 57 years old. Lump TECHNIQUE: Axial and longitudinal images of the RIGHT breast were performed with a high resolution ultrasound transducer. # OF IMAGES: 19 COMPARISON: Mammogram from earlier today FINDINGS: RIGHT Breast: Focused ultrasound of the right breast in the upper inner quadrant performed. Dense fibroglandular tissue noted. No suspicious shadowing solid lesion, architectural distortion, or clustered shadowing calcifications. No suspicious axillary adenopathy. US/Breast Limited Unilateral IMPRESSION: No suspicious sonographic findings ASSESSMENT CATEGORY: BIRADS Category 1: Negative. A letter regarding these results will be sent to the patient by the facility within 30 days. Electronically Signed: Tima Arevalo MD at 20:39 EDT ,
== END | disposition home or self-care (01) ==
PROVIDERS: PCP Family Medicine; Referring Provider Internal Medicine Medical Oncology; Visit Provider Internal Medicine Medical Oncology
DX: C50.919 Malignant neoplasm of unspecified site of unspecified female breast (principal); N63.20 Unspecified lump in the left breast, unspecified quadrant
CPT/HCPCS: 76642; 77061; 77065; G0279

== ENCOUNTER 2022-10-06 16:43 | Day surgery (SDC) | payer OTHER, SELFPAY ==
[2018-02-01 11:47] VITALS: BMI 15.0
[2022-10-06 17:26] VITALS: BP 116/83; PULSE 66; RESP 16; TEMP 37.6; O2SAT 100; BMI 14.8
[2022-10-06] MEDS: Lidocaine 1% /Epi 1:100 (20ml) 20 ML Vial (18:35)
[2022-10-06 19:30] VITALS: BP 116/83; BP 125/62; PULSE 74; RESP 16; TEMP 37.3; O2SAT 100
[2022-10-06 19:45] VITALS: BP 116/83; BP 123/70; PULSE 66; RESP 16; O2SAT 100
[2022-10-06 19:59] VITALS: BP 100/51; BP 116/83; PULSE 67; RESP 16; TEMP 36.9; O2SAT 99
[2022-10-06] MEDS: Oxycodone/Apap 5/325 Tablet PO (20:14)
[2022-10-06 20:21] VITALS: BP 116/83
== END 2022-10-06 20:32 | disposition home or self-care (01) ==
LOC: SDC 16:48 → AC 16:49
PROVIDERS: PCP Family Medicine; Referring Provider Anesthesiology Pain Medicine; Visit Provider Anesthesiology Pain Medicine
PROC: (CPT 62365; principal; 2022-10-06 17:30)
DX: T85.695A Other mechanical complication of other nervous system device, implant or graft, initial encounter (principal); G35 Multiple sclerosis; M62.40 Contracture of muscle, unspecified site; F12.90 Cannabis use, unspecified, uncomplicated; Z85.3 Personal history of malignant neoplasm of breast; Z90.722 Acquired absence of ovaries, bilateral; Z90.12 Acquired absence of left breast and nipple; Y82.9 Unspecified medical devices associated with adverse incidents
CPT/HCPCS: 62365; 87015; 87070; 87075; 87102; 87116; 87176; 87205; 87206; J7120; J2405

== ENCOUNTER 2022-10-09 09:30 | Outpatient (RCR) | payer OTHER, SELFPAY ==
[2018-02-01 11:47] VITALS: BMI 15.0
[2022-09-13 00:31] VITALS: BP 108/78; PULSE 62; RESP 18; TEMP 36.2
[2022-09-18 09:31] VITALS: BP 112/69; PULSE 61; RESP 16; TEMP 36.2
--- NOTE | 2022-09-18 12:48 | PCM.WC.PN ---
History of Present Illness Date of Service: 09/18/22 Chief Complaint: Nonhealing sacral and bilateral buttock ulcers History of Wound: The patient is a 56-year-old who [facility] a chronic, nonhealing sacral and bilateral buttock ulcers. Chronic ulcers for which she has been seen here in the past. Last seen here over 2 months ago. History of multiple sclerosis with bilateral lower extremity paresis. Since her last visit, she states that she has been applying Medihoney and Aquacel to the ulcers daily. Also has somebody who comes in overnight and helps her change her position every 2 hours. Has a nurse that comes in from her multiple sclerosis clinic twice a week that helps with wound changes as well. Have remained clean since she had the colostomy placed. She states that her nutrition is also improved with a colostomy in place. She states that she has been taking Premier protein and Leobardo supplements. She feels well overall, no chills, fever, nausea or vomiting. Progress of Wound: Right Ischial/buttock ulcer with increasing depth. No significant drainage or foul smell. No chills, fever or otherwise feeling of unwell. Objective Data Objective Data Vital Signs: Vital Signs Temp Pulse Resp BP 97.1 F L 61 16 112/69 09/18/22 09:31 09/18/22 09:31 09/18/22 09:31 09/18/22 09:31 Charges/Coding Procedures Integumentary 111xxx-113xx: [id number] Natalia subq tissue 20 sq cm/< Physical Exam Const alert and no apparent distress HEENT head/scalp atraumatic and moist oral mucous membranes Resp normal respiratory effort GI normal to inspection, nondistended, normoactive bowel sounds, soft to palpation and non-tender Extremity normal to inspection Skin Wounds: wounds noted Neuro oriented x3 and CN's II-XII intact bilaterally Psych mental status grossly normal, thought process normal, cooperative and affect normal Appearance: grossly normal Attitude: calm Debridement Note Debridement Note Wound debrided: Sacral Cluster Wound Grade/Stage: Stage III Type of Debridement: Excisional debridement Anesthesia Used: 4% Lidocaine Solution Depth: Down to and including healthy tissue and in the subcutaneous layer Percentage of wound debrided: 100 Instrument Used: 5mm curette Tissue Removed: Slough and devitalized tissue Severity: Fat Layer Exposed Amount of bleeding with debridement: Mild Bleeding Controlled with: Pressure Patient tolerated procedure: Patient tolerated procedure well Post-Debridement Measurements and Additional Note: Post-Debridement Measurements/Treatment - Nurse 1 - General Ulcer Assessment Start: 09/18/22 09:31 Freq: Status: Active Protocol: ASHLEY Activity Type Activity Date Activity User E-sign Co-sign Detail Recorded Client Recorded Date Recorded By Document 09/18/22 09:31 JF [id number] 09/18/22 09:47 JOANNA 09/18/22 09:31 - Today's Visit Information Type of service Follow-up Visit (Physician/JOURNEYMAN LEVEL ACOUSTIC ANALYST ) Arrival Mode Wheelchair Transfer Assistance Manual Patient Identification Verified (Name & Yes ) Patient Requires Transmission-Based No Precautions Vital Signs Temperature (97.8 F-99.1 F) 97.1 F L Temperature Source Temporal Pulse Rate (60-100) 61 Pulse Location Monitor Respiratory Rate (12-18) 16 Respiratory rate source Observation Blood Pressure (90/60-120/80) 112/69 Blood Pressure Mean (mm Hg) 83 Source Monitor Position Sitting Blood Pressure Location Right Arm History Since Last Visit- (Skip if this is Patient's initial visit) Have you changed medications since your No last visit? Any new allergies or adverse reactions No Had a fall/change in ADL's that may No increase risk of falls Signs or symptoms of abuse and/or No neglect since last visit Have you been in the hospital since your No last visit? Has dressing in place as prescribed Yes Has compression in place as prescribed N/A Has offloadiing in place as prescribed No Experienced any changes in pain level or No management Left Footwear Regular Shoe Right Footwear Regular Shoe Pain Scale: 0-10 Numeric Is Patient Pain Free? Yes - Nurse 1 - General Ulcer Measurement Start: 09/18/22 09:31 Freq: Status: Active Protocol: Activity Type Activity Date Activity User E-sign Co-sign Detail Recorded Client Recorded Date Recorded By Document 09/18/22 09:31 JOANNA [id number] 09/18/22 09:47 JOANNA 09/18/22 09:31 Wound Center Nurse 1 #7- R ISCHIUM -Combined with other wound No -Current Size (cm) - Length 1.7 -Current Size (cm) - Width 3.0 -Current Size (cm) - Depth 1.1 -Total Square Cm 5.10 -Photo Taken Yes -Epithelialization None Present -Tunneling No -Undermining/Tunneling No -Circular Undermining No -Exudate Amt Small -Exudate Type Serosanguineous -Wound Margin Flat & Intact -Granulation Amt Medium (34-66%) -Granulation Quality Red -Slough/Fibrin Yes -Necrosis Amt Small (1-33%) -Necrotic Tissue Type Adherent Slough -Structure Exposed N/A -Texture (Cydney-wound Skin Appearance) Assessed, Scarring -Moisture (Cydney-wound Skin Appearance) Assessed,Dry/ Scaly -Color (Cydney-wound Skin Appearance) Assessed -Temperature (Cydney-wound Skin No Abnormality Appearance) (Pt Warm) -Tenderness on Palpation (Cydney-wound No Skin Appearance) -Ulcer Cleansing Wound Cleanser -Foul Odor after Cleansing No -Anesthetic Used 5% Lidocaine Gel #6- SACRAL CLUSTER -Combined with other wound No -Current Size (cm) - Length 0.7 -Current Size (cm) - Width 0.3 -Current Size (cm) - Depth 0.2 -Total Square Cm 0.21 -Photo Taken Yes -Epithelialization Large 67-100% -Tunneling No -Undermining/Tunneling No -Circular Undermining No -Exudate Amt None Present -Wound Margin Flat & Intact -Granulation Amt Medium (34-66%) -Granulation Quality [place] -Slough/Fibrin Yes -Necrosis Amt Small (1-33%) -Necrotic Tissue Type Adherent Slough -Structure Exposed None/Limited to Skin Breakdown -Texture (Cydney-wound Skin Appearance) Assessed,Rash -Moisture (Cydney-wound Skin Appearance) Assessed,Dry/ Scaly -Color (Cydney-wound Skin Appearance) Assessed -Temperature (Cydney-wound Skin No Abnormality Appearance) (Pt Warm) -Tenderness on Palpation (Cydney-wound No Skin Appearance) -Ulcer Cleansing Wound Cleanser -Foul Odor after Cleansing No -Anesthetic Used 5% Lidocaine Gel #5- R HIP -Combined with other wound No -Current Size (cm) - Length 3.2 -Current Size (cm) - Width 2 -Current Size (cm) - Depth 0.5 -Total Square Cm 6.4 -Photo Taken Yes -Epithelialization None Present -Tunneling No -Undermining/Tunneling Yes -Undermining/Tunneling Starts (O'clock 1 ) -Undermining/Tunneling Ends (O'clock) 3 -Maximum Distance (cm) 0.3 -Circular Undermining No -Exudate Amt Large -Exudate Type Serosanguineous -Wound Margin Flat & Intact -Granulation Amt Medium (34-66%) -Granulation Quality Red -Slough/Fibrin Yes -Necrosis Amt Small (1-33%) -Necrotic Tissue Type Adherent Slough -Structure Exposed N/A -Texture (Cydney-wound Skin Appearance) Assessed, Scarring -Moisture (Cydney-wound Skin Appearance) Assessed,Dry/ Scaly -Temperature (Cydney-wound Skin No Abnormality Appearance) (Pt Warm) -Tenderness on Palpation (Cydney-wound No Skin Appearance) -Ulcer Cleansing Wound Cleanser -Foul Odor after Cleansing No -Anesthetic Used 5% Lidocaine Gel #4- L HIP -Combined with other wound No -Current Size (cm) - Length 2.4 -Current Size (cm) - Width 3.0 -Current Size (cm) - Depth 1.8 -Total Square Cm 7.20 -Photo Taken Yes -Epithelialization None Present -Tunneling No -Undermining/Tunneling No -Circular Undermining No -Exudate Amt Large -Exudate Type Serosanguineous -Wound Margin Flat & Intact -Granulation Amt Medium (34-66%) -Granulation Quality Red -Slough/Fibrin Yes -Necrosis Amt Small (1-33%) -Necrotic Tissue Type Adherent Slough -Structure Exposed N/A -Texture (Cydney-wound Skin Appearance) Assessed, Scarring -Moisture (Cydney-wound Skin Appearance) Assessed,Dry/ Scaly -Color (Cydney-wound Skin Appearance) Assessed -Temperature (Cydney-wound Skin No Abnormality Appearance) (Pt Warm) -Tenderness on Palpation (Cydney-wound No Skin Appearance) -Ulcer Cleansing Wound Cleanser -Foul Odor after Cleansing No -Anesthetic Used 5% Lidocaine Gel Lower Limb Edema Present NA WC - Nurse 2 - General Ulcer CM Notes Start: 09/18/22 09:31 Freq: Status: Active Protocol: Activity Type Activity Date Activity User E-sign Co-sign Detail Recorded Client Recorded Date Recorded By Document 09/18/22 10:25 MW [id number] 09/18/22 10:47 MW 09/18/22 10:25 Wound Center Nurse 2 #7- R ISCHIUM -Time 10:26 -Correct Patient Yes -Correct Side, Site, Position Yes -Correct Procedure Yes -Procedure Performed Yes -Type of Procedure Debridement -Clinical Debridement Subcutaneous -Tissue Removed Subcutaneous -Post Debridement (cm) - Length 1.8 -Post Debridement (cm) - Width 1.9 -Post Debridement (cm) - Depth 1.5 -Total Square (Post) (cm) 3.42 -Area of Debridement (cm) - Length 1.8 -Area of Debridement (cm) - Width 1.9 -Total Square (Area) (cm) 3.42 -Tunneling No -Undermining/Tunneling No -Circular Undermining No -Wound/Ulcer Outcome Not Healed -Ulcer Cleansing Rinsed/ Irrigated with Saline -Foul Odor after Cleansing No -Bioengineered Tissue No -Bleeding Controlled with Pressure -Treatment Response Procedure Tolerated Well -Offloading No -Debridement - Subq, 1st 20sq cm Yes #6- SACRAL CLUSTER -Time 10:26 -Correct Patient Yes -Correct Side, Site, Position Yes -Correct Procedure Yes -Procedure Performed Yes -Type of Procedure Debridement -Clinical Debridement Subcutaneous -Tissue Removed Subcutaneous -Post Debridement (cm) - Length 0.4 -Post Debridement (cm) - Width 0.8 -Post Debridement (cm) - Depth 0.1 -Total Square (Post) (cm) 0.32 -Area of Debridement (cm) - Length 0.4 -Area of Debridement (cm) - Width 0.8 -Total Square (Area) (cm) 0.32 -Tunneling No -Undermining/Tunneling No -Circular Undermining No -Wound/Ulcer Outcome Not Healed -Ulcer Cleansing Rinsed/ Irrigated with Saline -Foul Odor after Cleansing No -Bioengineered Tissue No -Bleeding Controlled with Pressure -Treatment Response Procedure Tolerated Well -Offloading No -Debridement - Subq, 1st 20sq cm No #5- R HIP -Time 10:27 -Correct Patient Yes -Correct Side, Site, Position Yes -Correct Procedure Yes -Procedure Performed Yes -Type of Procedure Debridement -Clinical Debridement Subcutaneous -Tissue Removed Subcutaneous -Post Debridement (cm) - Length 2.0 -Post Debridement (cm) - Width 3.0 -Post Debridement (cm) - Depth 0.4 -Total Square (Post) (cm) 6.00 -Area of Debridement (cm) - Length 2.0 -Area of Debridement (cm) - Width 3.0 -Total Square (Area) (cm) 6.00 -Tunneling No -Undermining/Tunneling No -Circular Undermining No -Wound/Ulcer Outcome Not Healed -Ulcer Cleansing Rinsed/ Irrigated with Saline -Foul Odor after Cleansing No -Bioengineered Tissue No -Bleeding Controlled with Pressure -Treatment Response Procedure Tolerated Well -Offloading No -Debridement - Subq, 1st 20sq cm No #4- L HIP -Time 10:27 -Correct Patient Yes -Correct Side, Site, Position Yes -Correct Procedure Yes -Procedure Performed Yes -Type of Procedure Debridement -Clinical Debridement Subcutaneous -Tissue Removed Subcutaneous -Post Debridement (cm) - Length 2.5 -Post Debridement (cm) - Width 3.3 -Post Debridement (cm) - Depth 0.9 -Total Square (Post) (cm) 8.25 -Area of Debridement (cm) - Length 2.5 -Area of Debridement (cm) - Width 3.3 -Total Square (Area) (cm) 8.25 -Tunneling No -Undermining/Tunneling No -Circular Undermining No -Wound/Ulcer Outcome Not Healed -Ulcer Cleansing Rinsed/ Irrigated with Saline -Foul Odor after Cleansing No -Bioengineered Tissue No -Bleeding Controlled with Pressure -Treatment Response Procedure Tolerated Well -Offloading No -Debridement - Subq, 1st 20sq cm No Pain Scale: 0-10 Numeric Is Patient Pain Free? Yes - Nurse 3 - General Ulcer D/C NN Start: 09/18/22 09:31 Freq: Status: Active Protocol: Activity Type Activity Date Activity User E-sign Co-sign Detail Recorded Client Recorded Date Recorded By Document 09/18/22 11:03 [id number] 09/18/22 11:06 09/18/22 11:03 Wound Care Center Nurse 3 #7- R ISCHIUM -Primary Dressing Applied Aquacel Extra, Mepilex Border -Aquacel Extra 1 -Mepilex Border 1 #6- SACRAL CLUSTER -Primary Dressing Applied Mepilex Border -Other Dressing aquacel extra -Mepilex Border 1 #5- R HIP -Primary Dressing Applied Mepilex Border -Other Dressing aquacel extra -Mepilex Border 1 #4- L HIP -Primary Dressing Applied Mepilex Border -Other Dressing aquacel extra -Mepilex Border 1 Treatment Response Procedure Tolerated Well Pain Scale: 0-10 Numeric Is Patient Pain Free? Yes WC - Visit Discharge Discharge Condition Stable Ambulatory Status Wheelchair Transportation Private Auto Medication Reconcilliation completed & No provided to patient/care provider Clinical Summary of Care Provided Yes Additional Wound Wound debrided: Left buttock/Hip Wound Grade/Stage: Stage III Type of Debridement: Excisional debridement Anesthesia Used: 4% Lidocaine Solution Depth: Down to and including healthy tissue and in the subcutaneous layer Percentage of wound debrided: 100 Instrument Used: 5mm curette Tissue Removed: Slough and devitalized tissue Severity: Fat Layer Exposed Amount of bleeding with debridement: Mild Bleeding Controlled with: Pressure Patient tolerated procedure: Patient tolerated procedure well Additional Wound Wound debrided: Right buttock (lateral) Wound Grade/Stage: Stage III Type of Debridement: Excisional debridement Anesthesia Used: 4% Lidocaine Solution Depth: Down to and including healthy tissue and in the subcutaneous layer Percentage of wound debrided: 100 Instrument Used: 5mm curette Tissue Removed: Slough and devitalized tissue Severity: Fat Layer Exposed Amount of bleeding with debridement: Mild Bleeding Controlled with: Pressure Patient tolerated procedure: Patient tolerated procedure well Additional Wound Wound debrided: Right buttock (medial)/Ischial Type of Debridement: Excisional debridement Anesthesia Used: 4% Lidocaine Solution Depth: Down to and including healthy tissue and in the subcutaneous layer Percentage of wound debrided: 100 Instrument Used: 5mm curette Tissue Removed: Slough and devitalized tissue Severity: Fat Layer Exposed Amount of bleeding with debridement: Mild Bleeding Controlled with: Pressure Assessment/Plan Assessment/Plan (1) Decubitus ulcer of right buttock, stage 3: CODE(S): L89.313 - Pressure ulcer of right buttock, stage 3 (2) Decubitus ulcer of left buttock, stage 3: CODE(S): L89.323 - Pressure ulcer of left buttock, stage 3 (3) Sacral decubitus ulcer, stage III: CODE(S): L89.153 - Pressure ulcer of sacral region, stage 3 (4) Multiple sclerosis: CODE(S): G35 - Multiple sclerosis (5) Debility: CODE(S): R53.81 - Other malaise PLAN: Plan Debridement done as documented above, procedure was well-tolerated. Sacral ulcer with some improvement. Right Ischial/medial ulcer with good granulation tissue but significant worsening in depth compared to her last visit.Worsening said to have started about 1 week ago. She feels well but repositioning has been challenging lately. Cultures taken, will review. Hold off Dakins to the Right medial but continue 10 minutes Dakins soak to the other ulcers. Continue Medihoney and aquacel extra as supplies allow. We discussed wound vac to the left and right ulcers and she will like to speak with her insurance company first. Discuss further at next visit. Continue offloading and adequate protein intake. Follow-up in 1 week. Continue other chronic care/management. Her questions were answered and she was advised to call with any further questions or concerns. This note was generated with [employer] dictation software. It may contain incorrect words, spelling, and punctuation that were not noted in checking the note before signing.
[2022-09-25 09:29] VITALS: BP 108/72; PULSE 71; RESP 16; TEMP 35.8
--- NOTE | 2022-09-25 11:30 | PN.PCM_ITS ---
History of Present Illness Date of Service: 09/25/22 Chief Complaint: Nonhealing sacral and bilateral buttock ulcers History of Wound: The patient is a 56-year-old who [facility] a chronic, nonhealing sacral and bilateral buttock ulcers. Chronic ulcers for which she has been seen here in the past. Last seen here over 2 months ago. History of multiple sclerosis with bilateral lower extremity paresis. Since her last visit, she states that she has been applying Medihoney and Aquacel to the ulcers daily. Also has somebody who comes in overnight and helps her change her position every 2 hours. Has a nurse that comes in from her multiple sclerosis clinic twice a week that helps with wound changes as well. Have remained clean since she had the colostomy placed. She states that her nutrition is also improved with a colostomy in place. She states that she has been taking Premier protein and Leobardo supplements. She feels well overall, no chills, fever, nausea or vomiting. Progress of Wound: Right Ischial/buttock ulcer with even worsening depth. No significant drainage or foul smell. Recently had cultures done. Objective Data Objective Data Vital Signs: Vital Signs Temp Pulse Resp BP O2 Del Method 96.5 F L 71 16 108/72 Room Air 09/25/22 09:29 09/25/22 09:29 09/25/22 09:29 09/25/22 09:29 09/25/22 09:29 Oxygen Delivery Method Room Air Lab / Micro Data Micro: Microbiology 09/18/22 10:30 Wound Abcess - Ischium Gram Stain - Final 09/18/22 10:30 Wound Abcess - Ischium Wound Culture - Final Staphylococcus aureus Enterococcus faecalis 09/18/22 10:30 Wound Abcess - Ischium Anaerobic Culture - Final No anaerobic bacteria isolated. Charges/Coding Procedures Integumentary 111xxx-113xx: [id number] Natalia subq tissue 20 sq cm/< Physical Exam Const alert and no apparent distress HEENT head/scalp atraumatic and moist oral mucous membranes Resp normal respiratory effort GI normal to inspection, nondistended, normoactive bowel sounds, soft to palpation and non-tender Extremity normal to inspection Skin Wounds: wounds noted Neuro oriented x3 and CN's II-XII intact bilaterally Psych mental status grossly normal, thought process normal, cooperative and affect normal Appearance: grossly normal Attitude: calm Debridement Note Debridement Note Wound debrided: Sacral Cluster Wound Grade/Stage: Stage III Type of Debridement: Excisional debridement Anesthesia Used: 4% Lidocaine Solution Depth: Down to and including healthy tissue and in the subcutaneous layer Percentage of wound debrided: 100 Instrument Used: 5mm curette Tissue Removed: Slough and devitalized tissue Severity: Fat Layer Exposed Amount of bleeding with debridement: Mild Bleeding Controlled with: Pressure Patient tolerated procedure: Patient tolerated procedure well Post-Debridement Measurements and Additional Note: Post-Debridement Measurements/Treatment - Nurse 1 - General Ulcer Assessment Start: 09/18/22 09:31 Freq: Status: Active Protocol: ASHLEY Activity Type Activity Date Activity User E-sign Co-sign Detail Recorded Client Recorded Date Recorded By Document 09/18/22 09:31 JF [id number] 09/18/22 09:47 JF Document 09/25/22 09:29 DL [id number] 09/25/22 09:51 DL 09/18/22 09/25/22 09:31 09:29 - Today's Visit Information Type of service Follow-up Visit Follow-up Visit (Physician/UTILITIES MANAGER (Physician/UTILITIES MANAGER ) ) Arrival Mode Wheelchair Wheelchair Transfer Assistance Manual None Patient Identification Verified (Name & Yes Yes ) Patient Requires Transmission-Based No No Precautions Vital Signs Temperature (97.8 F-99.1 F) 97.1 F L 96.5 F L Temperature Source Temporal Temporal Pulse Rate (60-100) 61 71 Pulse Location Monitor Respiratory Rate (12-18) 16 16 Respiratory rate source Observation Observation Oxygen Delivery Method Room Air Blood Pressure (90/60-120/80) 112/69 108/72 Blood Pressure Mean (mm Hg) 83 84 Source Monitor Monitor Position Sitting Sitting Blood Pressure Location Right Arm Right Arm History Since Last Visit- (Skip if this is Patient's initial visit) Have you changed medications since your No No last visit? Any new allergies or adverse reactions No No Had a fall/change in ADL's that may No No increase risk of falls Signs or symptoms of abuse and/or No No neglect since last visit Have you been in the hospital since your No No last visit? Has dressing in place as prescribed Yes Yes Has compression in place as prescribed N/A N/A Has offloadiing in place as prescribed No Yes Experienced any changes in pain level or No No management Left Footwear Regular Shoe Right Footwear Regular Shoe Pain Scale: 0-10 Numeric Is Patient Pain Free? Yes Yes WC - Nurse 1 - General Ulcer Measurement Start: 09/18/22 09:31 Freq: Status: Active Protocol: Activity Type Activity Date Activity User E-sign Co-sign Detail Recorded Client Recorded Date Recorded By Document 09/18/22 09:31 JF [id number] 09/18/22 09:47 JF Document 09/25/22 09:29 DL [id number] 09/25/22 09:51 DL 09/18/22 09/25/22 09:31 09:29 Wound Center Nurse 1 #7- R ISCHIUM -Combined with other wound No -Current Size (cm) - Length 1.7 2.2 -Current Size (cm) - Width 3.0 1.3 -Current Size (cm) - Depth 1.1 1.2 -Total Square Cm 5.10 2.86 -Photo Taken Yes -Epithelialization None Present -Tunneling No -Undermining/Tunneling No -Undermining/Tunneling Starts (O'clock 10 ) -Undermining/Tunneling Ends (O'clock) 1 -Maximum Distance (cm) 1.3 -Circular Undermining No -Exudate Amt Small Medium -Exudate Type Serosanguineous Yellow/Green -Wound Margin Flat & Intact Distinct, Outline Attached -Granulation Amt Medium (34-66%) Medium (34-66%) -Granulation Quality Red [place],Red -Slough/Fibrin Yes -Necrosis Amt Small (1-33%) Medium (34-66%) -Necrotic Tissue Type Adherent Slough Adherent Slough -Structure Exposed N/A N/A -Texture (Cydney-wound Skin Appearance) Assessed, Scarring Scarring -Moisture ([place]ydney-wound Skin Appearance) Assessed,Dry/ No Abnormality Scaly -Color ([place]ydney-wound Skin Appearance) Assessed No Abnormality -Temperature ([place]yd[place]-wound Skin No Abnormality No Abnormality Appearance) (Pt Warm) (Pt Warm) -Tenderness on Palpation ([place]ydney-wound No No Skin Appearance) -Ulcer Cleansing Wound Cleanser Soap and Water -Foul Odor after Cleansing No No -Anesthetic Used 5% Lidocaine 4% Lidocaine Gel Solution #6- SACRAL CLUSTER -Combined with other wound No -Current Size (cm) - Length 0.7 0.4 -Current Size (cm) - Width 0.3 0.6 -Current Size (cm) - Depth 0.2 0.1 -Total Square Cm 0.21 0.24 -Photo Taken Yes -Epithelialization Large 67-100% -Tunneling No -Undermining/Tunneling No -Circular Undermining No -Exudate Amt None Present None Present -Exudate Type Yellow/Green -Wound Margin Flat & Intact Distinct, Outline Attached -Granulation Amt Medium (34-66%) Small (1-33%) -Granulation Quality [place] -Slough/Fibrin Yes -Necrosis Amt Small (1-33%) -Necrotic Tissue Type Adherent Slough Adherent Slough -Structure Exposed None/Limited to N/A Skin Breakdown -Texture (Cydney-wound Skin Appearance) Assessed,Rash Scarring -Moisture ([place]ydney-wound Skin Appearance) Assessed,Dry/ No Abnormality Scaly -Color ([place]ydney-wound Skin Appearance) Assessed No Abnormality -Temperature ([place]ydney-wound Skin No Abnormality No Abnormality Appearance) (Pt Warm) (Pt Warm) -Tenderness on Palpation ([place]ydney-wound No No Skin Appearance) -Ulcer Cleansing Wound Cleanser Soap and Water -Foul Odor after Cleansing No No -Anesthetic Used 5% Lidocaine 4% Lidocaine Gel Solution #5- R HIP -Combined with other wound No -Current Size (cm) - Length 3.2 2.2 -Current Size (cm) - Width 2 3 -Current Size (cm) - Depth 0.5 0.2 -Total Square Cm 6.4 6.6 -Photo Taken Yes -Epithelialization None Present -Tunneling No -Undermining/Tunneling Yes -Undermining/Tunneling Starts (O'clock 1 ) -Undermining/Tunneling Ends (O'clock) 3 -Maximum Distance (cm) 0.3 -Circular Undermining No -Exudate Amt Large Medium -Exudate Type Serosanguineous Yellow/Green -Wound Margin Flat & Intact Distinct, Outline Attached -Granulation Amt Medium (34-66%) Medium (34-66%) -Granulation Quality Red Red -Slough/Fibrin Yes -Necrosis Amt Small (1-33%) Medium (34-66%) -Necrotic Tissue Type Adherent Slough Adherent Slough -Structure Exposed N/A N/A -Texture (Cydney-wound Skin Appearance) Assessed, Scarring Scarring -Moisture (Cydney-wound Skin Appearance) Assessed,Dry/ No Abnormality Scaly -Color (Cydney-wound Skin Appearance) No Abnormality -Temperature ([place]yd[place]-wound Skin No Abnormality No Abnormality Appearance) (Pt Warm) (Pt Warm) -Tenderness on Palpation ([place]ydney-wound No Skin Appearance) -Ulcer Cleansing Wound Cleanser Soap and Water -Foul Odor after Cleansing No -Anesthetic Used 5% Lidocaine 4% Lidocaine Gel Solution #4- L HIP -Combined with other wound No -Current Size (cm) - Length 2.4 2.8 -Current Size (cm) - Width 3.0 3.1 -Current Size (cm) - Depth 1.8 0.2 -Total Square Cm 7.20 8.68 -Photo Taken Yes -Epithelialization None Present -Tunneling No -Undermining/Tunneling No -Undermining/Tunneling Starts (O'clock 9 ) -Undermining/Tunneling Ends (O'clock) 3 -Maximum Distance (cm) 1.8 -Circular Undermining No -Exudate Amt Large Medium -Exudate Type Serosanguineous Yellow/Green -Wound Margin Flat & Intact Distinct, Outline Attached -Granulation Amt Medium (34-66%) Medium (34-66%) -Granulation Quality Red Red -Slough/Fibrin Yes -Necrosis Amt Small (1-33%) Medium (34-66%) -Necrotic Tissue Type Adherent Slough Adherent Slough -Structure Exposed N/A N/A -Texture (Cydney-wound Skin Appearance) Assessed, Scarring Scarring -Moisture ([place]ydney-wound Skin Appearance) Assessed,Dry/ No Abnormality Scaly -Color ([place]ydney-wound Skin Appearance) Assessed No Abnormality -Temperature ([place]yd[place]-wound Skin No Abnormality No Abnormality Appearance) (Pt Warm) (Pt Warm) -Tenderness on Palpation (Cydney-wound No Skin Appearance) -Ulcer Cleansing Wound Cleanser Soap and Water -Foul Odor after Cleansing No -Anesthetic Used 5% Lidocaine 4% Lidocaine Gel Solution Lower Limb Edema Present NA WC - Nurse 2 - General Ulcer CM Notes Start: 09/18/22 09:31 Freq: Status: Active Protocol: Activity Type Activity Date Activity User E-sign Co-sign Detail Recorded Client Recorded Date Recorded By Document 09/18/22 10:25 MW [id number] 09/18/22 10:47 MW Document 09/25/22 10:02 MW [id number] 09/25/22 10:19 MW 09/18/22 09/25/22 10:25 10:02 Wound Center Nurse 2 #7- R ISCHIUM -Time 10: 10:03 -Correct Patient Yes Yes -Correct Side, Site, Position Yes Yes -Correct Procedure Yes Yes -Procedure Performed Yes Yes -Type of Procedure Debridement Debridement -Clinical Debridement Subcutaneous Subcutaneous -Tissue Removed Subcutaneous Subcutaneous -Post Debridement (cm) - Length 1.8 2.2 -Post Debridement (cm) - Width 1.9 1.5 -Post Debridement (cm) - Depth 1.5 2.1 -Total Square (Post) (cm) 3.42 3.30 -Area of Debridement (cm) - Length 1.8 2.2 -Area of Debridement (cm) - Width 1.9 1.5 -Total Square (Area) (cm) 3.42 3.30 -Tunneling No No -Undermining/Tunneling No No -Circular Undermining No No -Wound/Ulcer Outcome Not Healed Not Healed -Ulcer Cleansing Rinsed/ Rinsed/ Irrigated with Irrigated with Saline Saline -Foul Odor after Cleansing No No -Bioengineered Tissue No No -Bleeding Controlled with Pressure Pressure -Treatment Response Procedure Procedure Tolerated Well Tolerated Well -Offloading No No -Debridement - Subq, 1st 20sq cm Yes Yes #6- SACRAL CLUSTER -Time 10: 10:03 -Correct Patient Yes Yes -Correct Side, Site, Position Yes Yes -Correct Procedure Yes Yes -Procedure Performed Yes Yes -Type of Procedure Debridement Debridement -Clinical Debridement Subcutaneous Subcutaneous -Tissue Removed Subcutaneous Subcutaneous -Post Debridement (cm) - Length 0.4 0.8 -Post Debridement (cm) - Width 0.8 0.3 -Post Debridement (cm) - Depth 0.1 0.1 -Total Square (Post) (cm) 0.32 0.24 -Area of Debridement (cm) - Length 0.4 0.8 -Area of Debridement (cm) - Width 0.8 0.3 -Total Square (Area) (cm) 0.32 0.24 -Tunneling No No -Undermining/Tunneling No No -Circular Undermining No No -Wound/Ulcer Outcome Not Healed Not Healed -Ulcer Cleansing Rinsed/ Rinsed/ Irrigated with Irrigated with Saline Saline -Foul Odor after Cleansing No No -Bioengineered Tissue No No -Bleeding Controlled with Pressure Pressure -Treatment Response Procedure Procedure Tolerated Well Tolerated Well -Offloading No No -Debridement - Subq, 1st 20sq cm No No #5- R HIP -Time 10:27 10:09 -Correct Patient Yes Yes -Correct Side, Site, Position Yes Yes -Correct Procedure Yes Yes -Procedure Performed Yes Yes -Type of Procedure Debridement Debridement -Clinical Debridement Subcutaneous Subcutaneous -Tissue Removed Subcutaneous Subcutaneous -Post Debridement (cm) - Length 2.0 2.0 -Post Debridement (cm) - Width 3.0 3.0 -Post Debridement (cm) - Depth 0.4 0.5 -Total Square (Post) (cm) 6.00 6.00 -Area of Debridement (cm) - Length 2.0 2.0 -Area of Debridement (cm) - Width 3.0 3.0 -Total Square (Area) (cm) 6.00 6.00 -Tunneling No No -Undermining/Tunneling No No -Circular Undermining No No -Wound/Ulcer Outcome Not Healed Not Healed -Ulcer Cleansing Rinsed/ Rinsed/ Irrigated with Irrigated with Saline Saline -Foul Odor after Cleansing No No -Bioengineered Tissue No No -Bleeding Controlled with Pressure Pressure -Treatment Response Procedure Procedure Tolerated Well Tolerated Well -Offloading No No -Debridement - Subq, 1st 20sq cm No No #4- L HIP -Time 10:27 10:10 -Correct Patient Yes Yes -Correct Side, Site, Position Yes Yes -Correct Procedure Yes Yes -Procedure Performed Yes Yes -Type of Procedure Debridement Debridement -Clinical Debridement Subcutaneous Subcutaneous -Tissue Removed Subcutaneous Subcutaneous -Post Debridement (cm) - Length 2.5 2.5 -Post Debridement (cm) - Width 3.3 3.3 -Post Debridement (cm) - Depth 0.9 0.9 -Total Square (Post) (cm) 8.25 8.25 -Area of Debridement (cm) - Length 2.5 2.5 -Area of Debridement (cm) - Width 3.3 3.3 -Total Square (Area) (cm) 8.25 8.25 -Tunneling No No -Undermining/Tunneling No No -Circular Undermining No No -Wound/Ulcer Outcome Not Healed Not Healed -Ulcer Cleansing Rinsed/ Rinsed/ Irrigated with Irrigated with Saline Saline -Foul Odor after Cleansing No No -Bioengineered Tissue No No -Bleeding Controlled with Pressure Pressure -Treatment Response Procedure Procedure Tolerated Well Tolerated Well -Offloading No No -Debridement - Subq, 1st 20sq cm No No Pain Scale: 0-10 Numeric Is Patient Pain Free? Yes Yes - Nurse 3 - General Ulcer D/C NN Start: 09/18/22 09:31 Freq: Status: Active Protocol: Activity Type Activity Date Activity User E-sign Co-sign Detail Recorded Client Recorded Date Recorded By Document 09/18/22 11:03 RB [id number] 09/18/22 11:06 RB Document 09/25/22 10:48 DL [id number] 09/25/22 10:52 DL 09/18/22 09/25/22 11:03 10:48 Wound Care Center Nurse 3 #7- R ISCHIUM -Ulcer Cleansing Rinsed/ Irrigated with Saline -Foul Odor after Cleansing No -Primary Dressing Applied Aquacel Extra, Aquacel Extra, Mepilex Border Mepilex Border -Aquacel Extra 1 1 -Mepilex Border 1 1 #6- SACRAL CLUSTER -Ulcer Cleansing Rinsed/ Irrigated with Saline -Foul Odor after Cleansing No -Primary Dressing Applied Mepilex Border Mepilex Border -Other Dressing aquacel extra -Mepilex Border 1 1 #5- R HIP -Ulcer Cleansing Rinsed/ Irrigated with Saline -Foul Odor after Cleansing No -Primary Dressing Applied Mepilex Border Mepilex Border -Other Dressing aquacel extra aquacel Ex -Mepilex Border 1 1 #4- L HIP -Ulcer Cleansing Rinsed/ Irrigated with Saline -Foul Odor after Cleansing No -Primary Dressing Applied Mepilex Border Mepilex Border -Other Dressing aquacel extra aquacel Ex -Mepilex Border 1 1 Treatment Response Procedure Procedure Tolerated Well Tolerated Well Pain Scale: 0-10 Numeric Is Patient Pain Free? Yes Yes - Visit Discharge Discharge Condition Stable Stable Ambulatory Status Wheelchair Wheelchair Transportation Private Auto Private Auto Medication Reconcilliation completed & No provided to patient/care provider Clinical Summary of Care Provided Yes Facility Type Home Health Orders Sent Yes Additional Wound Wound debrided: Left buttock/Hip Wound Grade/Stage: Stage III Type of Debridement: Excisional debridement Anesthesia Used: 4% Lidocaine Solution Depth: Down to and including healthy tissue and in the subcutaneous layer Percentage of wound debrided: 100 Instrument Used: 5mm curette Tissue Removed: Slough and devitalized tissue Severity: Fat Layer Exposed Amount of bleeding with debridement: Mild Bleeding Controlled with: Pressure Patient tolerated procedure: Patient tolerated procedure well Additional Wound Wound debrided: Right buttock (lateral) Wound Grade/Stage: Stage III Type of Debridement: Excisional debridement Anesthesia Used: 4% Lidocaine Solution Depth: Down to and including healthy tissue and in the subcutaneous layer Percentage of wound debrided: 100 Instrument Used: 5mm curette Tissue Removed: Slough and devitalized tissue Severity: Fat Layer Exposed Amount of bleeding with debridement: Mild Bleeding Controlled with: Pressure Patient tolerated procedure: Patient tolerated procedure well Additional Wound Wound debrided: Right buttock (medial)/Ischial Type of Debridement: Excisional debridement Anesthesia Used: 4% Lidocaine Solution Depth: Down to and including healthy tissue and in the subcutaneous layer Percentage of wound debrided: 100 Instrument Used: 5mm curette Tissue Removed: Slough and devitalized tissue Severity: Fat Layer Exposed Amount of bleeding with debridement: Mild Bleeding Controlled with: Pressure Assessment/Plan Assessment/Plan (1) Decubitus ulcer of right buttock, stage 3: CODE(S): L89.313 - Pressure ulcer of right buttock, stage 3 (2) Decubitus ulcer of left buttock, stage 3: CODE(S): L89.323 - Pressure ulcer of left buttock, stage 3 (3) Sacral decubitus ulcer, stage III: CODE(S): L89.153 - Pressure ulcer of sacral region, stage 3 (4) Multiple sclerosis: CODE(S): G35 - Multiple sclerosis (5) Debility: CODE(S): R53.81 - Other malaise PLAN: Plan Debridement done as documented above, procedure was well-tolerated. Right medial/ischial ulcer with worsening depth, other ulcers are largely stable. Sits for at least 14 hours every day without repositioning. Does not have a low loss mattress/hospital bed at night but has someone come in to reposition her every 2 hours. Very lengthy discussion had with patient about goals of care and risk for recurrence/worsening. At this time, due to limited help at home and resources I believe she would do well with [facility] to help with wound care and when she is discharged from the facility, having a low loss/hospital bed at home would help prevent recurrence. In the process of getting a new chair with better pressure settings for her daytime. Continue 10 minutes Dakins soak, Medihoney and aquacel extra to all ulcers as supplies allow. We have also discussed a wound Vac to her right buttock ulcers. Continue offloading and adequate protein intake. Follow-up in 1 week. Continue other chronic care/management. Her questions were answered and she was advised to call with any further questions or concerns. This note was generated with [employer] dictation software. It may contain incorrect words, spelling, and punctuation that were not noted in checking the note before signing.
[2022-10-09 09:38] VITALS: BP 103/60; PULSE 63; RESP 16; TEMP 36
--- NOTE | 2022-10-09 11:34 | PN.PCM_ITS ---
History of Present Illness Date of Service: 10/09/22 Chief Complaint: Nonhealing sacral and bilateral buttock ulcers History of Wound: The patient is a 56-year-old who [facility] to a chronic, nonhealing sacral and bilateral buttock ulcers. Chronic ulcers for which she has been seen here in the past. Last seen here over 2 months ago. History of multiple sclerosis with bilateral lower extremity paresis. Since her last visit, she states that she has been applying Medihoney and Aquacel to the ulcers daily. Also has somebody who comes in overnight and helps her change her position every 2 hours. Has a nurse that comes in from her multiple sclerosis clinic twice a week that helps with wound changes as well. Have remained clean since she had the colostomy placed. She states that her nutrition is also improved with a colostomy in place. She states that she has been taking Premier protein and Leobardo supplements. She feels well overall, no chills, fever, nausea or vomiting. Progress of Wound: Overall stable ulcers. No new concerns regarding old ulcers. In the Process of getting a new wheelchair with better cushions. Also now open to hospital bed and low air loss mattress. Still awaiting insurance approval for wound VAC. Objective Data Objective Data Vital Signs: Vital Signs Temp Pulse Resp BP O2 Del Method 96.8 F L 63 16 103/60 Room Air 10/09/22 09:38 10/09/22 09:38 10/09/22 09:38 10/09/22 09:38 10/09/22 09:38 Oxygen Delivery Method Room Air Lab / Micro Data Micro: Microbiology 09/18/22 10:30 Wound Abcess - Ischium Gram Stain - Final 09/18/22 10:30 Wound Abcess - Ischium Wound Culture - Final Staphylococcus aureus Enterococcus faecalis 09/18/22 10:30 Wound Abcess - Ischium Anaerobic Culture - Final No anaerobic bacteria isolated. Charges/Coding Procedures Integumentary [id number]: [id number] Natalia subq tissue 20 sq cm/< Physical Exam Const alert and no apparent distress HEENT head/scalp atraumatic Resp normal respiratory effort Extremity normal to inspection Skin Wounds: wounds noted Neuro oriented x3 and CN's II-XII intact bilaterally Psych mental status grossly normal, thought process normal, cooperative and affect normal Appearance: grossly normal Attitude: calm Debridement Note Debridement Note Wound debrided: Sacral Cluster Wound Grade/Stage: Stage III Type of Debridement: Excisional debridement Anesthesia Used: 4% Lidocaine Solution Depth: Down to and including healthy tissue and in the subcutaneous layer Percentage of wound debrided: 100 Instrument Used: 5mm curette Tissue Removed: Slough and devitalized tissue Severity: Fat Layer Exposed Amount of bleeding with debridement: Mild Bleeding Controlled with: Pressure Patient tolerated procedure: Patient tolerated procedure well Post-Debridement Measurements and Additional Note: Post-Debridement Measurements/Treatment - Nurse 1 - General Ulcer Assessment Start: 09/18/22 09:31 Freq: Status: Active Protocol: SynacorDAHLIA Activity Type Activity Date Activity User E-sign Co-sign Detail Recorded Client Recorded Date Recorded By Document 09/18/22 09:31 JF [id number] 09/18/22 09:47 JF Document 09/25/22 09:29 DL [id number] 09/25/22 09:51 DL Document 10/09/22 09:38 [facility] [id number] 10/09/22 09:47 [facility] 09/18/22 09/25/22 10/09/22 09:31 09:29 09:38 - Today's Visit Information Type of service Follow-up Visit Follow-up Visit Follow-up Visit (Physician/MILITARY TECHNOLOGY SPECIALIST (Physician/MILITARY TECHNOLOGY SPECIALIST (Physician/MILITARY TECHNOLOGY SPECIALIST ) ) ) Arrival Mode Wheelchair Wheelchair Wheelchair Transfer Assistance Manual None Other Transfer Assist (Other) caregiver transfers pt Accompanied by caregiver Patient Identification Verified (Name & Yes Yes Yes ) Patient Requires Transmission-Based No No No Precautions Vital Signs Temperature (97.8 F-99.1 F) 97.1 F L 96.5 F L 96.8 F L Temperature Source Temporal Temporal Temporal Pulse Rate (60-100) 61 71 63 Pulse Location Monitor Monitor Respiratory Rate (12-18) 16 16 16 Respiratory rate source Observation Observation Observation Oxygen Delivery Method Room Air Room Air Blood Pressure (90/60-120/80) 112/69 108/72 103/60 Blood Pressure Mean (mm Hg) 83 84 74 Source Monitor Monitor Monitor Position Sitting Sitting Sitting Blood Pressure Location Right Arm Right Arm Left Arm History Since Last Visit- (Skip if this is Patient's initial visit) Have you changed medications since your No No No last visit? Any new allergies or adverse reactions No No No Had a fall/change in ADL's that may No No No increase risk of falls Signs or symptoms of abuse and/or No No No neglect since last visit Have you been in the hospital since your No No No last visit? Has dressing in place as prescribed Yes Yes Yes Has compression in place as prescribed N/A N/A N/A Has offloadiing in place as prescribed No Yes N/A Experienced any changes in pain level or No No No management Left Footwear Regular Shoe Regular Shoe Right Footwear Regular Shoe Regular Shoe Pain Scale: 0-10 Numeric Is Patient Pain Free? Yes Yes Yes WC - Nurse 1 - General Ulcer Measurement Start: 09/18/22 09:31 Freq: Status: Active Protocol: Activity Type Activity Date Activity User E-sign Co-sign Detail Recorded Client Recorded Date Recorded By Document 09/18/22 09:31 [id number] 09/18/22 09:47 JF Document 09/25/22 09:29 DL [id number] 09/25/22 09:51 DL Document 10/09/22 09:38 [facility] [id number] 10/09/22 09:47 BMF 09/18/22 09/25/22 10/09/22 09:31 09:29 09:38 Wound Center Nurse 1 #7- R ISCHIUM -Combined with other wound No No -Current Size (cm) - Length 1.7 2.2 2 -Current Size (cm) - Width 3.0 1.3 2 -Current Size (cm) - Depth 1.1 1.2 0.5 -Total Square Cm 5.10 2.86 4 -Photo Taken Yes No -Epithelialization None Present None Present -Tunneling No No -Undermining/Tunneling No Yes -Undermining/Tunneling Starts (O'clock 10 10 ) -Undermining/Tunneling Ends (O'clock) 1 1 -Maximum Distance (cm) 1.3 1.8 -Circular Undermining No -Exudate Amt Small Medium Medium -Exudate Type Serosanguineous Yellow/Green Serosanguineous -Wound Margin Flat & Intact Distinct, Distinct, Outline Outline Attached Attached -Granulation Amt Medium (34-66%) Medium (34-66%) Small (1-33%) -Granulation Quality [place] -Slough/Fibrin Yes Yes -Necrosis Amt Small (1-33%) Medium (34-66%) Large (67-100%) -Necrotic Tissue Type Adherent Slough Adherent Slough Adherent Slough -Structure Exposed N/A N/A -Texture (Cydney-wound Skin Appearance) Assessed, Scarring Assessed, Scarring Scarring -Moisture (Cydney-wound Skin Appearance) Assessed,Dry/ No Abnormality Assessed Scaly -Color (Cydney-wound Skin Appearance) Assessed No Abnormality Assessed -Temperature (Cydney-wound Skin No Abnormality No Abnormality No Abnormality Appearance) (Pt Warm) (Pt Warm) (Pt Warm) -Tenderness on Palpation (Cydney-wound No No No Skin Appearance) -Ulcer Cleansing Wound Cleanser Soap and Water Soap and Water -Foul Odor after Cleansing No No No -Anesthetic Used 5% Lidocaine 4% Lidocaine 5% Lidocaine Gel Solution Gel #6- SACRAL CLUSTER -Combined with other wound No No -Current Size (cm) - Length 0.7 0.4 0.1 -Current Size (cm) - Width 0.3 0.6 0.1 -Current Size (cm) - Depth 0.2 0.1 0.1 -Total Square Cm 0.21 0.24 0.01 -Photo Taken Yes -Epithelialization Large 67-100% Large 67-100% -Tunneling No -Undermining/Tunneling No -Circular Undermining No -Exudate Amt None Present None Present -Exudate Type Yellow/Green -Wound Margin Flat & Intact Distinct, Outline Attached -Granulation Amt Medium (34-66%) Small (1-33%) -Granulation Quality [place] -Slough/Fibrin Yes -Necrosis Amt Small (1-33%) -Necrotic Tissue Type Adherent Slough Adherent Slough -Structure Exposed None/Limited to N/A Skin Breakdown -Texture (Cydney-wound Skin Appearance) Assessed,Rash Scarring Assessed, Scarring -Moisture (Cydney-wound Skin Appearance) Assessed,Dry/ No Abnormality Assessed Scaly -Color (Cydney-wound Skin Appearance) Assessed No Abnormality Assessed -Temperature (Cydney-wound Skin No Abnormality No Abnormality Appearance) (Pt Warm) (Pt Warm) -Tenderness on Palpation (Cydney-wound No No Skin Appearance) -Ulcer Cleansing Wound Cleanser Soap and Water Soap and Water -Foul Odor after Cleansing No No No -Anesthetic Used 5% Lidocaine 4% Lidocaine Gel Solution #5- R HIP -Combined with other wound No No -Current Size (cm) - Length 3.2 2.2 2.1 -Current Size (cm) - Width 2 3 2.6 -Current Size (cm) - Depth 0.5 0.2 0.4 -Total Square Cm 6.4 6.6 5.46 -Photo Taken Yes -Epithelialization None Present None Present -Tunneling No No -Undermining/Tunneling Yes No -Undermining/Tunneling Starts (O'clock 1 ) -Undermining/Tunneling Ends (O'clock) 3 -Maximum Distance (cm) 0.3 -Circular Undermining No No -Exudate Amt Large Medium Medium -Exudate Type Serosanguineous Yellow/Green Serosanguineous -Wound Margin Flat & Intact Distinct, Distinct, Outline Outline Attached Attached -Granulation Amt Medium (34-66%) Medium (34-66%) Medium (34-66%) -Granulation Quality [place] -Slough/Fibrin Yes Yes -Necrosis Amt Small (1-33%) Medium (34-66%) Medium (34-66%) -Necrotic Tissue Type Adherent Slough Adherent Slough Adherent Slough -Structure Exposed N/A N/A -Texture (Cydney-wound Skin Appearance) Assessed, Scarring Assessed, Scarring Scarring -Moisture (Cydney-wound Skin Appearance) Assessed,Dry/ No Abnormality Assessed Scaly -Color (Cydney-wound Skin Appearance) No Abnormality Assessed -Temperature (Cydney-wound Skin No Abnormality No Abnormality No Abnormality Appearance) (Pt Warm) (Pt Warm) (Pt Warm) -Tenderness on Palpation (Cydney-wound No No Skin Appearance) -Ulcer Cleansing Wound Cleanser Soap and Water Soap and Water -Foul Odor after Cleansing No No -Anesthetic Used 5% Lidocaine 4% Lidocaine 5% Lidocaine Gel Solution Gel #4- L HIP -Combined with other wound No No -Current Size (cm) - Length 2.4 2.8 2.8 -Current Size (cm) - Width 3.0 3.1 3.5 -Current Size (cm) - Depth 1.8 0.2 1.1 -Total Square Cm 7.20 8.68 9.80 -Photo Taken Yes -Epithelialization None Present None Present -Tunneling No No -Undermining/Tunneling No No -Undermining/Tunneling Starts (O'clock 9 ) -Undermining/Tunneling Ends (O'clock) 3 -Maximum Distance (cm) 1.8 -Circular Undermining No No -Exudate Amt Large Medium Medium -Exudate Type Serosanguineous Yellow/Green Serosanguineous -Wound Margin Flat & Intact Distinct, Thickened Outline Attached -Granulation Amt Medium (34-66%) Medium (34-66%) Medium (34-66%) -Granulation Quality [place] -Slough/Fibrin Yes Yes -Necrosis Amt Small (1-33%) Medium (34-66%) Medium (34-66%) -Necrotic Tissue Type Adherent Slough Adherent Slough Adherent Slough -Structure Exposed N/A N/A -Texture (Cydney-wound Skin Appearance) Assessed, Scarring Assessed, Scarring Scarring -Moisture (Cydney-wound Skin Appearance) Assessed,Dry/ No Abnormality Assessed Scaly -Color (Cydney-wound Skin Appearance) Assessed No Abnormality Assessed -Temperature (Cydney-wound Skin No Abnormality No Abnormality No Abnormality Appearance) (Pt Warm) (Pt Warm) (Pt Warm) -Tenderness on Palpation (Cydney-wound No No Skin Appearance) -Ulcer Cleansing Wound Cleanser Soap and Water Soap and Water -Foul Odor after Cleansing No No -Anesthetic Used 5% Lidocaine 4% Lidocaine 5% Lidocaine Gel Solution Gel Lower Limb Edema Present NA WC - Nurse 2 - General Ulcer CM Notes Start: 09/18/22 09:31 Freq: Status: Active Protocol: Activity Type Activity Date Activity User E-sign Co-sign Detail Recorded Client Recorded Date Recorded By Document 09/18/22 10:25 MW [id number] 09/18/22 10:47 MW Document 09/25/22 10:02 MW [id number] 09/25/22 10:19 MW Document 10/09/22 10:17 MW [id number] 10/09/22 10:41 MW 09/18/22 09/25/22 10/09/22 10:25 10:02 10:17 Wound Center Nurse 2 #7- R ISCHIUM -Time 10:26 10:03 10:17 -Correct Patient Yes Yes Yes -Correct Side, Site, Position Yes Yes Yes -Correct Procedure Yes Yes Yes -Procedure Performed Yes Yes Yes -Type of Procedure Debridement Debridement Debridement -Clinical Debridement Subcutaneous Subcutaneous Subcutaneous -Tissue Removed Subcutaneous Subcutaneous Subcutaneous -Post Debridement (cm) - Length 1.8 2.2 1.7 -Post Debridement (cm) - Width 1.9 1.5 1.5 -Post Debridement (cm) - Depth 1.5 2.1 1.4 -Total Square (Post) (cm) 3.42 3.30 2.55 -Area of Debridement (cm) - Length 1.8 2.2 1.7 -Area of Debridement (cm) - Width 1.9 1.5 1.5 -Total Square (Area) (cm) 3.42 3.30 2.55 -Tunneling No No No -Undermining/Tunneling No No Yes -Undermining/Tunneling Starts (O'clock 10 ) -Undermining/Tunneling Ends (O'clock) 1 -Maximum Distance (cm) 2.7 -Circular Undermining No No No -Wound/Ulcer Outcome Not Healed Not Healed Not Healed -Ulcer Cleansing Rinsed/ Rinsed/ Rinsed/ Irrigated with Irrigated with Irrigated with Saline Saline Saline -Foul Odor after Cleansing No No No -Bioengineered Tissue No No No -Bleeding Controlled with Pressure Pressure Pressure -Treatment Response Procedure Procedure Procedure Tolerated Well Tolerated Well Tolerated Well -Offloading No No No -Debridement - Subq, 1st 20sq cm Yes Yes Yes #6- SACRAL CLUSTER -Time 10:26 10:03 10:18 -Correct Patient Yes Yes Yes -Correct Side, Site, Position Yes Yes Yes -Correct Procedure Yes Yes Yes -Procedure Performed Yes Yes Yes -Type of Procedure Debridement Debridement Debridement -Clinical Debridement Subcutaneous Subcutaneous Subcutaneous -Tissue Removed Subcutaneous Subcutaneous Subcutaneous -Post Debridement (cm) - Length 0.4 0.8 0.3 -Post Debridement (cm) - Width 0.8 0.3 1.0 -Post Debridement (cm) - Depth 0.1 0.1 0.2 -Total Square (Post) (cm) 0.32 0.24 0.30 -Area of Debridement (cm) - Length 0.4 0.8 0.3 -Area of Debridement (cm) - Width 0.8 0.3 1.0 -Total Square (Area) (cm) 0.32 0.24 0.30 -Tunneling No No No -Undermining/Tunneling No No No -Circular Undermining No No No -Wound/Ulcer Outcome Not Healed Not Healed Not Healed -Ulcer Cleansing Rinsed/ Rinsed/ Rinsed/ Irrigated with Irrigated with Irrigated with Saline Saline Saline -Foul Odor after Cleansing No No No -Bioengineered Tissue No No No -Bleeding Controlled with Pressure Pressure Pressure -Treatment Response Procedure Procedure Procedure Tolerated Well Tolerated Well Tolerated Well -Offloading No No No -Debridement - Subq, 1st 20sq cm No No No #5- R HIP -Time 10: 10:09 10:18 -Correct Patient Yes Yes Yes -Correct Side, Site, Position Yes Yes Yes -Correct Procedure Yes Yes Yes -Procedure Performed Yes Yes Yes -Type of Procedure Debridement Debridement Debridement -Clinical Debridement Subcutaneous Subcutaneous Subcutaneous -Tissue Removed Subcutaneous Subcutaneous Subcutaneous -Post Debridement (cm) - Length 2.0 2.0 1.8 -Post Debridement (cm) - Width 3.0 3.0 2.8 -Post Debridement (cm) - Depth 0.4 0.5 0.5 -Total Square (Post) (cm) 6.00 6.00 5.04 -Area of Debridement (cm) - Length 2.0 2.0 1.8 -Area of Debridement (cm) - Width 3.0 3.0 2.8 -Total Square (Area) (cm) 6.00 6.00 5.04 -Tunneling No No No -Undermining/Tunneling No No No -Circular Undermining No No No -Wound/Ulcer Outcome Not Healed Not Healed Not Healed -Ulcer Cleansing Rinsed/ Rinsed/ Rinsed/ Irrigated with Irrigated with Irrigated with Saline Saline Saline -Foul Odor after Cleansing No No No -Bioengineered Tissue No No No -Bleeding Controlled with Pressure Pressure Pressure -Treatment Response Procedure Procedure Procedure Tolerated Well Tolerated Well Tolerated Well -Offloading No No No -Debridement - Subq, 1st 20sq cm No No No #4- L HIP -Time 10: 10:10 10:19 -Correct Patient Yes Yes Yes -Correct Side, Site, Position Yes Yes Yes -Correct Procedure Yes Yes Yes -Procedure Performed Yes Yes Yes -Type of Procedure Debridement Debridement Debridement -Clinical Debridement Subcutaneous Subcutaneous Subcutaneous -Tissue Removed Subcutaneous Subcutaneous Subcutaneous -Post Debridement (cm) - Length 2.5 2.5 3.0 -Post Debridement (cm) - Width 3.3 3.3 3.1 -Post Debridement (cm) - Depth 0.9 0.9 0.9 -Total Square (Post) (cm) 8.25 8.25 9.30 -Area of Debridement (cm) - Length 2.5 2.5 3.0 -Area of Debridement (cm) - Width 3.3 3.3 3.1 -Total Square (Area) (cm) 8.25 8.25 9.30 -Tunneling No No No -Undermining/Tunneling No No No -Circular Undermining No No No -Wound/Ulcer Outcome Not Healed Not Healed Not Healed -Ulcer Cleansing Rinsed/ Rinsed/ Rinsed/ Irrigated with Irrigated with Irrigated with Saline Saline Saline -Foul Odor after Cleansing No No No -Bioengineered Tissue No No No -Bleeding Controlled with Pressure Pressure Pressure -Treatment Response Procedure Procedure Procedure Tolerated Well Tolerated Well Tolerated Well -Offloading No No No -Debridement - Subq, 1st 20sq cm No No No Pain Scale: 0-10 Numeric Is Patient Pain Free? Yes Yes Yes WC - Nurse 3 - General Ulcer D/C NN Start: 09/18/22 09:31 Freq: Status: Active Protocol: Activity Type Activity Date Activity User E-sign Co-sign Detail Recorded Client Recorded Date Recorded By Document 09/18/22 11:03 RB [id number] 09/18/22 11:06 RB Document 09/25/22 10:48 DL [id number] 09/25/22 10:52 DL Document 10/09/22 10:52 RB [id number] 10/09/22 10:56 RB 09/18/22 09/25/22 10/09/22 11:03 10:48 10:52 Wound Care Center Nurse 3 #7- R ISCHIUM -Ulcer Cleansing Rinsed/ Rinsed/ Irrigated with Irrigated with Saline Saline -Foul Odor after Cleansing No -Primary Dressing Applied Aquacel Extra, Aquacel Extra, Mepilex Border Mepilex Border Mepilex Border -Other Dressing medihoney/ aquacel extra -Aquacel Extra 1 1 -Mepilex Border 1 1 1 #6- SACRAL CLUSTER -Ulcer Cleansing Rinsed/ Irrigated with Saline -Foul Odor after Cleansing No -Primary Dressing Applied Mepilex Border Mepilex Border Aquacel Extra, Mepilex Border -Other Dressing aquacel extra -Aquacel Extra 1 -Mepilex Border 1 1 1 #5- R HIP -Ulcer Cleansing Rinsed/ Rinsed/ Irrigated with Irrigated with Saline Saline -Foul Odor after Cleansing No -Primary Dressing Applied Mepilex Border Mepilex Border Mepilex Border -Other Dressing aquacel extra aquacel Ex medihoney/ aquacel extra -Mepilex Border 1 1 1 #4- L HIP -Ulcer Cleansing Rinsed/ Rinsed/ Irrigated with Irrigated with Saline Saline -Foul Odor after Cleansing No -Primary Dressing Applied Mepilex Border Mepilex Border Mepilex Border -Other Dressing aquacel extra aquacel Ex medihoney/ aquacel extra -Mepilex Border 1 1 1 Treatment Response Procedure Procedure Procedure Tolerated Well Tolerated Well Tolerated Well Pain Scale: 0-10 Numeric Is Patient Pain Free? Yes Yes Yes WC - Visit Discharge Discharge Condition Stable Stable Stable Ambulatory Status Wheelchair Wheelchair Wheelchair Transportation Private Auto Private Auto Private Auto Medication Reconcilliation completed & No No provided to patient/care provider Clinical Summary of Care Provided Yes Yes Facility Type Home Health Orders Sent Yes Additional Wound Wound debrided: Left buttock/Hip Wound Grade/Stage: Stage III Type of Debridement: Excisional debridement Anesthesia Used: 4% Lidocaine Solution Depth: Down to and including healthy tissue and in the subcutaneous layer Percentage of wound debrided: 100 Instrument Used: 5mm curette Tissue Removed: Slough and devitalized tissue Severity: Fat Layer Exposed Amount of bleeding with debridement: Mild Bleeding Controlled with: Pressure Patient tolerated procedure: Patient tolerated procedure well Additional Wound Wound debrided: Right buttock (lateral) Wound Grade/Stage: Stage III Type of Debridement: Excisional debridement Anesthesia Used: 4% Lidocaine Solution Depth: Down to and including healthy tissue and in the subcutaneous layer Percentage of wound debrided: 100 Instrument Used: 5mm curette Tissue Removed: Slough and devitalized tissue Severity: Fat Layer Exposed Amount of bleeding with debridement: Mild Bleeding Controlled with: Pressure Patient tolerated procedure: Patient tolerated procedure well Additional Wound Wound debrided: Right buttock (medial)/Ischial Type of Debridement: Excisional debridement Anesthesia Used: 4% Lidocaine Solution Depth: Down to and including healthy tissue and in the subcutaneous layer Percentage of wound debrided: 100 Instrument Used: 5mm curette Tissue Removed: Slough and devitalized tissue Severity: Fat Layer Exposed Amount of bleeding with debridement: Mild Bleeding Controlled with: Pressure Assessment/Plan Assessment/Plan (1) Decubitus ulcer of right buttock, stage 3: CODE(S): L89.313 - Pressure ulcer of right buttock, stage 3 (2) Decubitus ulcer of left buttock, stage 3: CODE(S): L89.323 - Pressure ulcer of left buttock, stage 3 (3) Sacral decubitus ulcer, stage III: CODE(S): L89.153 - Pressure ulcer of sacral region, stage 3 (4) Multiple sclerosis: CODE(S): G35 - Multiple sclerosis (5) Debility: CODE(S): R53.81 - Other malaise PLAN: Plan Debridement done as documented above, procedure was well-tolerated. Ulcers are overall stable/ slight improvement. New undermining noted on the right ischial but depth is improved. Sacral area with slight concern for maceration. Continue 10 minutes Dakins soak, Medihoney and aquacel extra to all but sacral ulcers as supplies allow. Aquacel only and foam dressing to sacral ulcer. As above, she is in the process of getting a wound vac, new chair and hospital bed. She also now has someone come in and reposition her every hour during the day. Hopefully, all of these measure help and sustain wound healing. Continue offloading and adequate protein intake. Follow-up in 2 weeks. Continue other chronic care/management. Her questions were answered and she was advised to call with any further questions or concerns. This note was generated with [employer] software. It may contain incorrect words, spelling, and punctuation that were not noted in checking the note before signing.
== END 2022-10-13 23:59 | disposition home or self-care (01) ==
LOC: WC 09:30
PROVIDERS: PCP Family Medicine; Referring Provider Nurse Practitioner Family; Visit Provider Internal Medicine
DX: L89.313 Pressure ulcer of right buttock, stage 3 (principal); L89.153 Pressure ulcer of sacral region, stage 3; L89.323 Pressure ulcer of left buttock, stage 3; Z93.3 Colostomy status; G35 Multiple sclerosis; R53.81 Other malaise; Z79.899 Other long term (current) drug therapy
CPT/HCPCS: 11042; 87070; 87075; 87077; 87186; 87205

== ENCOUNTER 2022-10-23 09:29 | Outpatient (RCR) | payer OTHER, SELFPAY ==
[2018-02-01 11:47] VITALS: BMI 15.0
[2022-10-14 00:29] VITALS: BP 103/60; PULSE 63; RESP 16; TEMP 36
[2022-10-23 09:59] VITALS: BP 103/65; PULSE 86; RESP 16; TEMP 36.2
--- NOTE | 2022-10-23 10:36 | PN.PCM_ITS ---
History of Present Illness Date of Service: 10/23/22 Chief Complaint: Nonhealing sacral and bilateral buttock ulcers History of Wound: The patient is a 56-year-old who [facility] a chronic, nonhealing sacral and bilateral buttock ulcers. Chronic ulcers for which she has been seen here in the past. Last seen here over 2 months ago. History of multiple sclerosis with bilateral lower extremity paresis. Since her last visit, she states that she has been applying Medihoney and Aquacel to the ulcers daily. Also has somebody who comes in overnight and helps her change her position every 2 hours. Has a nurse that comes in from her multiple sclerosis clinic twice a week that helps with wound changes as well. Have remained clean since she had the colostomy placed. She states that her nutrition is also improved with a colostomy in place. She states that she has been taking Premier protein and Leobardo supplements. She feels well overall, no chills, fever, nausea or vomiting. Progress of Wound: Had her wound Vac placed by home health last week. Not properly placed and so patient had a bit of pain with it. Largely stable ulcers. Objective Data Objective Data Vital Signs: Vital Signs Temp Pulse Resp BP 97.1 F L 86 16 103/65 10/23/22 09:59 10/23/22 09:59 10/23/22 09:59 10/23/22 09:59 Charges/Coding Procedures Integumentary [id number]: [id number] Natalia subq tissue 20 sq cm/< Physical Exam Const alert and no apparent distress HEENT head/scalp atraumatic Resp normal respiratory effort Extremity normal to inspection Skin Wounds: wounds noted Neuro oriented x3 and CN's II-XII intact bilaterally Psych mental status grossly normal, thought process normal, cooperative and affect normal Appearance: grossly normal Attitude: calm Debridement Note Debridement Note Wound debrided: Sacral Cluster Wound Grade/Stage: Stage III Type of Debridement: Excisional debridement Anesthesia Used: 4% Lidocaine Solution Depth: Down to and including healthy tissue and in the subcutaneous layer Percentage of wound debrided: 100 Instrument Used: 5mm curette Tissue Removed: Slough and devitalized tissue Severity: Fat Layer Exposed Amount of bleeding with debridement: Mild Bleeding Controlled with: Pressure Patient tolerated procedure: Patient tolerated procedure well Post-Debridement Measurements and Additional Note: Post-Debridement Measurements/Treatment WC - Nurse 1 - General Ulcer Assessment Start: 10/23/22 09:59 Freq: Status: Active Protocol: LEXIE Activity Type Activity Date Activity User E-sign Co-sign Detail Recorded Client Recorded Date Recorded By Document 10/23/22 09:59 JF [id number] 10/23/22 10:03 10/23/22 09:59 - Today's Visit Information Type of service Follow-up Visit (Physician/BOXING PROMOTER ) Arrival Mode Wheelchair Transfer Assistance Manual Accompanied by CAREGIVER Patient Identification Verified (Name & Yes ) Patient Requires Transmission-Based No Precautions Vital Signs Temperature (97.8 F-99.1 F) 97.1 F L Temperature Source Temporal Pulse Rate (60-100) 86 Pulse Location Monitor Respiratory Rate (12-18) 16 Respiratory rate source Observation Blood Pressure (90/60-120/80) 103/65 Blood Pressure Mean (mm Hg) 77 Source Monitor Position Sitting Blood Pressure Location Right Arm History Since Last Visit- (Skip if this is Patient's initial visit) Have you changed medications since your No last visit? Any new allergies or adverse reactions No Had a fall/change in ADL's that may No increase risk of falls Signs or symptoms of abuse and/or No neglect since last visit Have you been in the hospital since your No last visit? Has dressing in place as prescribed Yes Has compression in place as prescribed N/A Has offloadiing in place as prescribed No Experienced any changes in pain level or No management Left Footwear Regular Shoe Right Footwear Regular Shoe Pain Scale: 0-10 Numeric Is Patient Pain Free? Yes - Nurse 1 - General Ulcer Measurement Start: 10/23/22 09:59 Freq: Status: Active Protocol: Activity Type Activity Date Activity User E-sign Co-sign Detail Recorded Client Recorded Date Recorded By Document 10/23/22 09:59 JF [id number] 10/23/22 10:03 10/23/22 09:59 Wound Center Nurse 1 #7- R ISCHIUM -Combined with other wound No -Current Size (cm) - Length 2.4 -Current Size (cm) - Width 1.8 -Current Size (cm) - Depth 2.0 -Total Square Cm 4.32 -Photo Taken No -Epithelialization None Present -Tunneling No -Undermining/Tunneling No -Circular Undermining No -Exudate Amt Large -Exudate Type Serosanguineous -Wound Margin Flat & Intact -Granulation Amt Large (67-100%) -Granulation Quality Red -Slough/Fibrin Yes -Necrosis Amt Small (1-33%) -Necrotic Tissue Type Adherent Slough -Structure Exposed N/A -Texture (Cydney-wound Skin Appearance) Assessed, Excoriation -Moisture (Cydney-wound Skin Appearance) Assessed,Dry/ Scaly -Color (Cydney-wound Skin Appearance) Assessed -Temperature (Cydney-wound Skin No Abnormality Appearance) (Pt Warm) -Tenderness on Palpation (Cydney-wound No Skin Appearance) -Ulcer Cleansing Soap and Water -Foul Odor after Cleansing No -Anesthetic Used 4% Lidocaine Solution #6- SACRAL CLUSTER -Combined with other wound No -Current Size (cm) - Length 1.2 -Current Size (cm) - Width 2.3 -Current Size (cm) - Depth 0.3 -Total Square Cm 2.76 -Photo Taken No -Epithelialization Medium 34-66% -Tunneling No -Undermining/Tunneling No -Circular Undermining No -Exudate Amt Small -Exudate Type Serosanguineous -Wound Margin Flat & Intact -Granulation Amt None Present (0 %) -Slough/Fibrin Yes -Necrosis Amt Large (67-100%) -Necrotic Tissue Type Adherent Slough -Structure Exposed N/A -Texture (Cydney-wound Skin Appearance) Assessed, Scarring -Moisture (Cydney-wound Skin Appearance) Assessed,Dry/ Scaly -Color (Cydney-wound Skin Appearance) Assessed -Temperature (Cydney-wound Skin No Abnormality Appearance) (Pt Warm) -Tenderness on Palpation (Cydney-wound No Skin Appearance) -Ulcer Cleansing Wound Cleanser -Foul Odor after Cleansing No -Anesthetic Used 4% Lidocaine Solution #5- R HIP -Combined with other wound No -Combined with (Name of Wound-Exactly 2.8 as it is documented) -Current Size (cm) - Length 2.4 -Current Size (cm) - Width 0.5 -Total Square Cm 1.20 -Photo Taken No -Epithelialization None Present -Tunneling No -Undermining/Tunneling Yes -Undermining/Tunneling Starts (O'clock 11 ) -Undermining/Tunneling Ends (O'clock) 3 -Maximum Distance (cm) 1.0 -Circular Undermining No -Exudate Amt Large -Exudate Type Yellow/Green -Wound Margin Flat & Intact -Granulation Amt Small (1-33%) -Granulation Quality [place],Red -Slough/Fibrin Yes -Necrosis Amt Large (67-100%) -Necrotic Tissue Type Adherent Slough -Structure Exposed N/A -Texture (Cydney-wound Skin Appearance) Assessed, Excoriation -Moisture (Cydney-wound Skin Appearance) Assessed,Dry/ Scaly -Color (Cydney-wound Skin Appearance) Assessed -Temperature (Cydney-wound Skin No Abnormality Appearance) (Pt Warm) -Tenderness on Palpation (Cydney-wound No Skin Appearance) -Ulcer Cleansing Wound Cleanser -Foul Odor after Cleansing No -Anesthetic Used 4% Lidocaine Solution #4- L HIP -Combined with other wound No -Current Size (cm) - Length 2.8 -Current Size (cm) - Width 3.0 -Current Size (cm) - Depth 1.2 -Total Square Cm 8.40 -Photo Taken No -Epithelialization None Present -Tunneling No -Undermining/Tunneling No -Circular Undermining No -Exudate Amt Large -Exudate Type Serosanguineous -Wound Margin Flat & Intact -Granulation Amt Large (67-100%) -Granulation Quality Red -Slough/Fibrin Yes -Necrosis Amt Small (1-33%) -Necrotic Tissue Type Adherent Slough -Structure Exposed N/A -Texture (Cydney-wound Skin Appearance) Assessed, Excoriation -Moisture (Cydney-wound Skin Appearance) Assessed,Dry/ Scaly -Color (Cydney-wound Skin Appearance) Assessed -Temperature (Cydney-wound Skin No Abnormality Appearance) (Pt Warm) -Tenderness on Palpation (Cydney-wound No Skin Appearance) -Ulcer Cleansing Wound Cleanser -Foul Odor after Cleansing No -Anesthetic Used 4% Lidocaine Solution Lower Limb Edema Present NA WC - Nurse 2 - General Ulcer CM Notes Start: 10/23/22 09:59 Freq: Status: Active Protocol: Activity Type Activity Date Activity User E-sign Co-sign Detail Recorded Client Recorded Date Recorded By Document 10/23/22 10:11 MW [id number] 10/23/22 10:30 MW 10/23/22 10:11 Wound Center Nurse 2 #7- R ISCHIUM -Time 10:12 -Correct Patient Yes -Correct Side, Site, Position Yes -Correct Procedure Yes -Procedure Performed Yes -Type of Procedure Debridement -Clinical Debridement Subcutaneous -Tissue Removed Subcutaneous -Post Debridement (cm) - Length 2.0 -Post Debridement (cm) - Width 1.0 -Post Debridement (cm) - Depth 1.9 -Total Square (Post) (cm) 2.00 -Area of Debridement (cm) - Length 2.0 -Area of Debridement (cm) - Width 1.0 -Total Square (Area) (cm) 2.00 -Tunneling No -Undermining/Tunneling Yes -Undermining/Tunneling Starts (O'clock 10 ) -Undermining/Tunneling Ends (O'clock) 1 -Maximum Distance (cm) 3.8 -Circular Undermining No -Wound/Ulcer Outcome Not Healed -Ulcer Cleansing Rinsed/ Irrigated with Saline -Foul Odor after Cleansing No -Bioengineered Tissue No -Bleeding Controlled with Pressure -Treatment Response Procedure Tolerated Well -Offloading No -Debridement - Subq, 1st 20sq cm Yes #6- SACRAL CLUSTER -Time 10:13 -Correct Patient Yes -Correct Side, Site, Position Yes -Correct Procedure Yes -Procedure Performed Yes -Type of Procedure Debridement -Clinical Debridement Subcutaneous -Tissue Removed Subcutaneous -Post Debridement (cm) - Length 0.8 -Post Debridement (cm) - Width 2.1 -Post Debridement (cm) - Depth 0.1 -Total Square (Post) (cm) 1.68 -Area of Debridement (cm) - Length 0.8 -Area of Debridement (cm) - Width 2.1 -Total Square (Area) (cm) 1.68 -Tunneling No -Undermining/Tunneling No -Circular Undermining No -Wound/Ulcer Outcome Not Healed -Ulcer Cleansing Rinsed/ Irrigated with Saline -Foul Odor after Cleansing No -Bioengineered Tissue No -Bleeding Controlled with Pressure -Treatment Response Procedure Tolerated Well -Offloading No -Debridement - Subq, 1st 20sq cm No #5- R HIP -Time 10:13 -Correct Patient Yes -Correct Side, Site, Position Yes -Correct Procedure Yes -Procedure Performed Yes -Type of Procedure Debridement -Clinical Debridement Subcutaneous -Tissue Removed Subcutaneous -Post Debridement (cm) - Length 2.3 -Post Debridement (cm) - Width 2.8 -Post Debridement (cm) - Depth 0.5 -Total Square (Post) (cm) 6.44 -Area of Debridement (cm) - Length 2.3 -Area of Debridement (cm) - Width 2.8 -Total Square (Area) (cm) 6.44 -Tunneling No -Undermining/Tunneling No -Circular Undermining No -Wound/Ulcer Outcome Not Healed -Ulcer Cleansing Rinsed/ Irrigated with Saline -Foul Odor after Cleansing No -Bioengineered Tissue No -Bleeding Controlled with Pressure -Treatment Response Procedure Tolerated Well -Offloading No -Debridement - Subq, 1st 20sq cm No #4- L HIP -Time 10:13 -Correct Patient Yes -Correct Side, Site, Position Yes -Correct Procedure Yes -Procedure Performed Yes -Type of Procedure Debridement -Clinical Debridement Subcutaneous -Tissue Removed Subcutaneous -Post Debridement (cm) - Length 3.0 -Post Debridement (cm) - Width 2.7 -Post Debridement (cm) - Depth 0.9 -Total Square (Post) (cm) 8.10 -Area of Debridement (cm) - Length 3.0 -Area of Debridement (cm) - Width 2.7 -Total Square (Area) (cm) 8.10 -Tunneling No -Undermining/Tunneling No -Circular Undermining No -Wound/Ulcer Outcome Not Healed -Ulcer Cleansing Rinsed/ Irrigated with Saline -Foul Odor after Cleansing No -Bioengineered Tissue No -Bleeding Controlled with Pressure -Treatment Response Procedure Tolerated Well -Offloading No -Debridement - Subq, 1st 20sq cm No Pain Scale: 0-10 Numeric Is Patient Pain Free? Yes Additional Wound Wound debrided: Left buttock/Hip Wound Grade/Stage: Stage III Type of Debridement: Excisional debridement Anesthesia Used: 4% Lidocaine Solution Depth: Down to and including healthy tissue and in the subcutaneous layer Percentage of wound debrided: 100 Instrument Used: 5mm curette Tissue Removed: Slough and devitalized tissue Severity: Fat Layer Exposed Amount of bleeding with debridement: Mild Bleeding Controlled with: Pressure Patient tolerated procedure: Patient tolerated procedure well Additional Wound Wound debrided: Right buttock (lateral) Wound Grade/Stage: Stage III Type of Debridement: Excisional debridement Anesthesia Used: 4% Lidocaine Solution Depth: Down to and including healthy tissue and in the subcutaneous layer Percentage of wound debrided: 100 Instrument Used: 5mm curette Tissue Removed: Slough and devitalized tissue Severity: Fat Layer Exposed Amount of bleeding with debridement: Mild Bleeding Controlled with: Pressure Patient tolerated procedure: Patient tolerated procedure well Additional Wound Wound debrided: Right buttock (medial)/Ischial Type of Debridement: Excisional debridement Anesthesia Used: 4% Lidocaine Solution Depth: Down to and including healthy tissue and in the subcutaneous layer Percentage of wound debrided: 100 Instrument Used: 5mm curette Tissue Removed: Slough and devitalized tissue Severity: Fat Layer Exposed Amount of bleeding with debridement: Mild Bleeding Controlled with: Pressure Assessment/Plan Assessment/Plan (1) Decubitus ulcer of right buttock, stage 3: CODE(S): L89.313 - Pressure ulcer of right buttock, stage 3 (2) Decubitus ulcer of left buttock, stage 3: CODE(S): L89.323 - Pressure ulcer of left buttock, stage 3 (3) Sacral decubitus ulcer, stage III: CODE(S): L89.153 - Pressure ulcer of sacral region, stage 3 (4) Multiple sclerosis: CODE(S): G35 - Multiple sclerosis (5) Debility: CODE(S): R53.81 - Other malaise PLAN: Plan Debridement done as documented above, procedure was well-tolerated. Ulcers are overall stable/ slight improvement. Continue 10 minutes Dakins soak, Medihoney and aquacel extra to Right Hip. Aquacel only to Sacral ulcer. Wound Vac to Left Hip and Right Ischial ulcer. Change every 48 hours by home health, increase settings to 150 mmHg. Hospital bed will be delivered next week . She also now has someone come in and reposition her every hour during the day. Hopefully, all of these measure help and sustain wound healing. Continue offloading and adequate protein intake. Follow-up in 2 weeks. Continue other chronic care/management. Her questions were answered and she was advised to call with any further questions or concerns. This note was generated with [employer] software. It may contain incorrect words, spelling, and punctuation that were not noted in checking the note before signing.
--- NOTE | 2022-11-10 08:43 | WC ---
Patient called in and left a message concerned that her ischial ulcer is infected and would like to know if her home nurse could do a culture today. Contacted Dr Ross about this and without a wound being debrided, she would not like a culture performed due to contaminants to wound. Based on her previous wound culture, Dr Ross will be ordering Doxycycline PO calling it into [facility]. Patient was made aware and verbalized understanding. She also stated that she is scheduled to have a suprapubic catheter placement by Dr Asher on 11/13.
== END 2022-11-13 23:59 | disposition home or self-care (01) ==
LOC: WC 09:29
PROVIDERS: PCP Family Medicine; Referring Provider Nurse Practitioner Family; Visit Provider Internal Medicine
DX: L89.313 Pressure ulcer of right buttock, stage 3 (principal); L89.323 Pressure ulcer of left buttock, stage 3; L89.153 Pressure ulcer of sacral region, stage 3; Z93.3 Colostomy status; G35 Multiple sclerosis; R53.81 Other malaise; Z79.899 Other long term (current) drug therapy
CPT/HCPCS: 11042; 87077; 87086; 87088; 87186

== ENCOUNTER → 2022-10-30 | Outpatient (CLI) | payer OTHER, SELFPAY ==
[2018-02-01 11:47] VITALS: BMI 15.0
[2022-10-30 12:05] VITALS: BP 104/66; PULSE 59; RESP 16; O2SAT 98; BMI 15.0
--- NOTE | 2022-10-30 13:01 | NURSING ---
Quarter size hives noted on pt's left cheek, right forearm and left forearm. Dynamic senior power scheduler reported using chorehexidine to prep the skin, 3mL lidocaine to numb the skin and then saline to flush the line. Pt states she will take benedryl if needed when she gets home.
== END | disposition home or self-care (01) ==
PROVIDERS: PCP Family Medicine; Referring Provider Internal Medicine Infectious Disease; Visit Provider Internal Medicine Infectious Disease
DX: N39.0 Urinary tract infection, site not specified (principal); B96.5 Pseudomonas (aeruginosa) (mallei) (pseudomallei) as the cause of diseases classified elsewhere
CPT/HCPCS: 36569

== ENCOUNTER → 2022-11-10 | Outpatient (CLI) | payer OTHER, SELFPAY ==
[2018-02-01 11:47] VITALS: BMI 15.0
[2022-11-10 11:40] LABS: Absolute Lymphocyte Count 1.82 X10^3/uL (0.83-4.51); Absolute Neutrophil Count 5.1 X10^3/uL (2.0-7.7); Basophil# 0.03 X10^3/uL; Basophil% 0.4 % (0-1); Eosinophils% 4.9 % (0-5); Hematocrit 37.5 % (37-47); Hemoglobin 11.7 g/dL (12.0-15.0); Lymphocyte # 1.82 X10^3/ul (0.83-4.51); Lymphocyte % 22.2 % (19-41); Mean Corp Hgb Conc 31.2 g/dL (32-36); Mean Corpuscular Hgb 30.4 pg (27.0-32.0); Mean Corpuscular Volume 97.4 fL (81-99); Mean Platelet Vol. 10.9 fl (6.2-12.0); Monocyte# 0.85 X10^3/uL; Monocyte% 10.4 % (0-10); NRBC Flagged by Analyzer 0.4 % (0-5); Neutrophil # 5.06 X10^3/uL (2.7-7.7); Neutrophil % 61.6 % (47-70); Platelet Count 293 K/mm3 (150-450); RBC Distribution Width CV 14.5 % (11.6-14.6); RBC Distribution Width SD 51.9 fl (35.1-43.9); Red Blood Count 3.85 M/mm3 (4.2-5.4); White Blood Count 8.2 K/mm3 (4.4-11.0)
[2022-11-10 11:53] LABS: Anion Gap 4 (5-15); BUN 13 mg/dL (7-18); BUN/Creat Ratio 39.6 RATIO (10-20); Calcium,Total 9.1 mg/dL (8.5-10.1); Chloride 104 mmol/L (98-107); Creatinine, Serum 0.33 mg/dL (0.55-1.02); EST Glomerular Filtration Rate 220 mL/min (>60); Est Glom Filt Rate - Afr Amer 266 mL/min (>60); Glucose 87 mg/dL (74-106); Potassium 3.9 mmol/L (3.5-5.1); Sodium Level 139 mmol/L (136-145)
== END | disposition home or self-care (01) ==
LOC: LABSPEC 11:24
PROVIDERS: PCP Family Medicine; Referring Provider Internal Medicine Infectious Disease; Visit Provider Internal Medicine Infectious Disease
DX: N39.0 Urinary tract infection, site not specified (principal); B96.5 Pseudomonas (aeruginosa) (mallei) (pseudomallei) as the cause of diseases classified elsewhere
CPT/HCPCS: 80048; 85025

== ENCOUNTER 2022-11-13 05:52 | Day surgery (SDC) | payer OTHER, SELFPAY ==
[2018-02-01 11:47] VITALS: BMI 15.0
[2022-11-13 06:31] VITALS: BP 89/55; PULSE 58; RESP 16; TEMP 37.1; O2SAT 100; BMI 15.0
[2022-11-13] MEDS: Lactated Ringers 1,000 ML 15 ML IV (06:43)
[2022-11-13] MEDS: Cefazolin 2 GM in 0.9% Normal Saline 100 ML IV (07:31)
--- NOTE | 2022-11-13 07:32 | DCINST_ITS ---
Discharge Instructions Diet Discharge Diet: No restrictions Activity Discharge Activity: Return to Normal Activity Dressing / Incision Call your doctor if your incision/area has: Continuous Slow Oozing, Sudden Increased Bleeding, Increased Pain/ Swelling, Increased Redness, Foul Smelling Discharge and Swelling at the incision site Call your doctor if you observe: Fever of 101 or Higher and - (if catheter stops draining) Follow Up Care Please Follow Up With: Ivis Asher MD When: call office for appt to be seen in 4 weeks for SPT change Test Results: Test results from this visit will be discussed in further detail at your follow- up appointment, if applicable. Discharge Plan Admission Attending Provider: Ivis Asher Primary Care Provider: Mario Soliz Discharge Orders/Prescriptions Prescriptions: New oxycodone-acetaminophen [Percocet] 5-325 mg tablet 1 tab PO Q8H PRN (Reason: pain) 3 Days Qty: 10 0RF cephalexin [cephalexin] 500 mg capsule 500 mg PO Q12 3 Days Qty: 6 0RF Continued Tysabri 300 mg/15 mL solution 300 mg IV QMONTH Rx Instructions: 300 mg intravenously; once a month cholecalciferol (vitamin D3) 10,000 UNIT capsule 5,000 unit PO DAILY dalfampridine 10 MG tablet extended release 12 hr 10 mg PO BID ascorbic acid (vitamin C) 1,000 mg Tablet,Chewable 1 g PO DAILY zinc 50 mg Capsule 50 mg PO DAILY baclofen 10 mg tablet 20 mg PO Q4H Patient Comments: TAKE 1 TABLET BY MOUTHEEVERY 6 HOURS psyllium husk [Metamucil] 0.4 gram capsule 0.4 g PO DAILY Gemtesa 75 mg tablet 75 mg PO DAILY doxycycline monohydrate 100 mg tablet 100 mg PO BID Qty: 14 0RF Discontinued cefepime in dextrose 5 % 2 gram/50 mL piggyback 2 g IV Q12H Referrals / Follow Up: Mario Soliz DO [Primary Care Provider] - Disposition Disposition (needs filled in before D/C Order can be placed): Home, Self Care
[2022-11-13] MEDS: Lidocaine 1%/Epi 1:200 (30ml) 30 ML AMPUL INFILT (07:40)
[2022-11-13] MEDS: Lubricating Jelly 60 GM Tube 30 GM (07:47)
[2022-11-13 08:10] VITALS: BP 102/64; BP 89/55; PULSE 58; RESP 16; TEMP 36.7; O2SAT 100
[2022-11-13 08:15] VITALS: BP 107/70; BP 89/55; PULSE 58; RESP 16; O2SAT 100
[2022-11-13 08:20] VITALS: BP 109/68; BP 89/55; PULSE 57; RESP 16; O2SAT 100
[2022-11-13 08:25] VITALS: BP 117/66; BP 89/55; PULSE 56; RESP 16; O2SAT 100
--- NOTE | 2022-11-13 08:26 | PCM.OPRPT ---
Report of Operation Date of Procedure: 11/13/22 Pre-Operative Diagnosis: Urinary retention, neurogenic bladder, multiple sclerosis Post-Operative Diagnosis: Same Surgery/Procedure Performed:: Cystoscopy, insertion of suprapubic tube Surgeon: Ivis Asher Type of Anesthesia: MAC Description of Procedure: The patient is a 57-year-old female with complications secondary to multiple sclerosis including neurogenic bladder and urinary retention. She has had an indwelling urethral Pandey for some time and now presents for a suprapubic tube insertion. Informed consent was obtained. The patient was taken to the operating room and placed in a supine position on the operating room table. She was appropriately padded and secured. Anesthesia monitored the head, neck, airway, IV access and vital signs throughout the case. Once anesthesia was appropriately administered, the patient was placed into dorsolithotomy position was prepped and draped in usual sterile fashion. The cystoscope was inserted through the urethra under direct visualization into the urinary bladder. The bladder mucosa revealed no evidence of mass or erythema despite having a long-term urethral Pandey. Her ureteral orifices were located in the correct anatomic position on the area of the trigone. At this time the bladder was filled to capacity and a site was selected for the suprapubic tube insertion. This site was 2 fingerbreadths above the pubic bone and was marked on the skin and the area was infiltrated with local anesthetic. Using a spinal needle, access was obtained to the urinary bladder with good position and visualization of the needle in the dome of the bladder. The spinal needle was then removed and an incision was made at this location. Blunt dissection down to the level of the fascia was performed and while visualizing through the cystoscope, palpation of the bladder was easily seen in the correct location. The suprapubic tube insertion trocar was inserted through the incision, through the fascia and into the urinary bladder in good position. The trocar portion was then removed leaving the sheath in good position and the Pandey catheter was gently inserted into the urinary bladder and the balloon was inflated and visualized through the cystoscope. The sheath was then removed in its entirety without difficulty. The cystoscopic fluid drained into the bag attached to the catheter without obstruction. A 3-0 silk suture was then used to secure the catheter to the abdominal wall. A drain sponge was then applied and the case was terminated. The patient was awakened and taken to the recovery room in good condition. There were no complications during this procedure. Grafts/Implants Used: 16 [place] Pandey catheter Complications None Admit VTE Documentation VTE Present on Admission: Yes VTE Mechan Device Prophylaxis: SCD's VTE Pharm Prophylaxis ordered?: No Reason prophylaxis not ordered:: Treatment Not Indicated
[2022-11-13 10:13] VITALS: BP 105/61; BP 89/55; PULSE 57; RESP 16; TEMP 36.3; O2SAT 96
== END 2022-11-13 10:27 | disposition home or self-care (01) ==
LOC: SDC 05:53 → AC 05:54
PROVIDERS: PCP Family Medicine; Referring Provider Family Medicine; Visit Provider Urology
PROC: 0T9B40Z Drainage of Bladder with Drainage Device, Percutaneous Endoscopic Approach (ICD-10-PCS; CPT 52005; principal; 2022-11-13 07:20)
DX: R33.9 Retention of urine, unspecified (principal); G35 Multiple sclerosis; N31.9 Neuromuscular dysfunction of bladder, unspecified; F12.90 Cannabis use, unspecified, uncomplicated; Z97.8 Presence of other specified devices
CPT/HCPCS: 51040; 00860; J7120; A4216; J2405

== ENCOUNTER 2022-12-11 09:30 | Outpatient (RCR) | payer OTHER, SELFPAY ==
[2018-02-01 11:47] VITALS: BMI 15.0
[2022-11-14 00:34] VITALS: BP 103/65; PULSE 86; RESP 16; TEMP 36.2
[2022-11-27 09:53] VITALS: BP 116/84; PULSE 66; RESP 16; TEMP 36.3
--- NOTE | 2022-11-27 12:00 | PN.PCM_ITS ---
History of Present Illness Date of Service: 11/27/22 Chief Complaint: Nonhealing sacral and bilateral buttock ulcers History of Wound: The patient is a 56-year-old who [facility] a chronic, nonhealing sacral and bilateral buttock ulcers. Chronic ulcers for which she has been seen here in the past. Last seen here over 2 months ago. History of multiple sclerosis with bilateral lower extremity paresis. Since her last visit, she states that she has been applying Medihoney and Aquacel to the ulcers daily. Also has somebody who comes in overnight and helps her change her position every 2 hours. Has a nurse that comes in from her multiple sclerosis clinic twice a week that helps with wound changes as well. Have remained clean since she had the colostomy placed. She states that her nutrition is also improved with a colostomy in place. She states that she has been taking Premier protein and Leobardo supplements. She feels well overall, no chills, fever, nausea or vomiting. Progress of Wound: Last seen here over 1 month ago. Has concerns for possible infection of the right Ischial ulcer due to foul smell. Also had some Vac concerns. Now has a hospital bed. Objective Data Objective Data Vital Signs: Vital Signs Temp Pulse Resp BP O2 Del Method 97.4 F L 66 16 116/84 H Room Air 11/27/22 09:53 11/27/22 09:53 11/27/22 09:53 11/27/22 09:53 11/27/22 09:53 Oxygen Delivery Method Room Air Charges/Coding Procedures Integumentary 111xxx-113xx: 25308 Natalia subq tissue 20 sq cm/< Physical Exam Const alert and no apparent distress HEENT head/scalp atraumatic Resp normal respiratory effort Extremity normal to inspection Skin Wounds: wounds noted Neuro oriented x3 and CN's II-XII intact bilaterally Psych mental status grossly normal, thought process normal, cooperative and affect normal Appearance: grossly normal Attitude: calm Debridement Note Debridement Note Wound debrided: Right Buttock ( Ischial ) Type of Debridement: Excisional debridement Anesthesia Used: 5% Lidocaine Gel Depth: Down to and including healthy tissue and in the subcutaneous layer Percentage of wound debrided: 100 Instrument Used: 5mm curette Tissue Removed: SLough and devitalized tissue Severity: Fat Layer Exposed Amount of bleeding with debridement: Mild Bleeding Controlled with: Pressure Patient tolerated procedure: Patient tolerated procedure well Post-Debridement Measurements and Additional Note: Post-Debridement Measurements/Treatment - Nurse 1 - General Ulcer Assessment Start: 11/27/22 09:52 Freq: Status: Active Protocol: ASHLEY Activity Type Activity Date Activity User E-sign Co-sign Detail Recorded Client Recorded Date Recorded By Document 11/27/22 09:53 [facility] [id number] 11/27/22 10:20 [facility] 11/27/22 09:53 WC - Today's Visit Information Type of service Follow-up Visit (Physician/SENIOR PROGRAM ANALYST ) Arrival Mode Wheelchair Transfer Assistance Other Transfer Assist (Other) 2 Accompanied by caregiver Patient Identification Verified (Name & Yes ) Patient Requires Transmission-Based No Precautions Vital Signs Temperature (97.8 F-99.1 F) 97.4 F L Temperature Source Temporal Pulse Rate (60-100) 66 Pulse Location Monitor Respiratory Rate (12-18) 16 Respiratory rate source Observation Oxygen Delivery Method Room Air Blood Pressure (90/60-120/80) 116/84 H Blood Pressure Mean (mm Hg) 94 Source Monitor Position Sitting Blood Pressure Location Left Arm History Since Last Visit- (Skip if this is Patient's initial visit) Have you changed medications since your No last visit? Any new allergies or adverse reactions No Had a fall/change in ADL's that may No increase risk of falls Signs or symptoms of abuse and/or No neglect since last visit Have you been in the hospital since your No last visit? Has dressing in place as prescribed Yes Has compression in place as prescribed N/A Has offloadiing in place as prescribed N/A Experienced any changes in pain level or No management Left Footwear Regular Shoe Right Footwear Regular Shoe Pain Scale: 0-10 Numeric Is Patient Pain Free? Yes - Nurse 1 - General Ulcer Measurement Start: 11/27/22 09:52 Freq: Status: Active Protocol: Activity Type Activity Date Activity User E-sign Co-sign Detail Recorded Client Recorded Date Recorded By Document 11/27/22 09:53 [facility] [id number] 11/27/22 10:20 [facility] 11/27/22 09:53 Wound Center Nurse 1 #7- R ISCHIUM -Combined with other wound No -Current Size (cm) - Length 2.8 -Current Size (cm) - Width 1.2 -Current Size (cm) - Depth 1 -Total Square Cm 3.36 -Date of Last Picture (Recall this 11/27/22 field) -Photo Taken Yes -Epithelialization None Present -Tunneling Yes -Tunneling Position (O'clock) 12 -Tunneling Distance (cm) 3 -Undermining/Tunneling No -Circular Undermining No -Exudate Amt Medium -Exudate Type Serosanguineous -Wound Margin Distinct, Outline Attached -Granulation Amt Medium (34-66%) -Granulation Quality Pale,Red -Slough/Fibrin Yes -Necrosis Amt Medium (34-66%) -Necrotic Tissue Type Adherent Slough -Texture (Cydney-wound Skin Appearance) Assessed, Scarring -Moisture (Cydney-wound Skin Appearance) Assessed -Color (Cydney-wound Skin Appearance) Assessed -Temperature (Cydney-wound Skin No Abnormality Appearance) (Pt Warm) -Tenderness on Palpation (Cydney-wound No Skin Appearance) -Ulcer Cleansing Soap and Water -Foul Odor after Cleansing No -Anesthetic Used 4% Lidocaine Solution #6- SACRAL CLUSTER -Combined with other wound No -Current Size (cm) - Length 0.1 -Current Size (cm) - Width 0.1 -Current Size (cm) - Depth 0.1 -Total Square Cm 0.01 -Date of Last Picture (Recall this 11/27/22 field) -Photo Taken Yes -Epithelialization Large 67-100% -Tunneling No -Undermining/Tunneling No -Circular Undermining No -Exudate Amt None Present -Wound Margin Distinct, Outline Attached -Slough/Fibrin Yes -Necrosis Amt Small (1-33%) -Necrotic Tissue Type Eschar -Texture (Cydney-wound Skin Appearance) Assessed, Scarring -Moisture (Cydney-wound Skin Appearance) Assessed -Color (Cydney-wound Skin Appearance) Assessed -Temperature (Cydney-wound Skin No Abnormality Appearance) (Pt Warm) -Tenderness on Palpation (Cydney-wound No Skin Appearance) -Ulcer Cleansing Rinsed/ Irrigated with Saline -Foul Odor after Cleansing No -Anesthetic Used 5% Lidocaine Gel #5- R HIP -Combined with other wound No -Current Size (cm) - Length 2.7 -Current Size (cm) - Width 2.4 -Current Size (cm) - Depth 0.3 -Total Square Cm 6.48 -Date of Last Picture (Recall this 11/27/22 field) -Photo Taken Yes -Epithelialization Small 1-33% -Tunneling No -Undermining/Tunneling Yes -Undermining/Tunneling Starts (O'clock 3 ) -Undermining/Tunneling Ends (O'clock) 3 -Maximum Distance (cm) 0.4 -Circular Undermining No -Exudate Amt Medium -Exudate Type Serosanguineous -Wound Margin Distinct, Outline Attached -Granulation Amt Medium (34-66%) -Granulation Quality Pale,Red -Slough/Fibrin Yes -Necrosis Amt Medium (34-66%) -Necrotic Tissue Type Adherent Slough -Texture (Cydney-wound Skin Appearance) Assessed, Scarring -Moisture (Cydney-wound Skin Appearance) Assessed -Color (Cydney-wound Skin Appearance) Assessed -Temperature (Cydney-wound Skin No Abnormality Appearance) (Pt Warm) -Tenderness on Palpation (Cydney-wound No Skin Appearance) -Ulcer Cleansing Rinsed/ Irrigated with Saline -Foul Odor after Cleansing No -Anesthetic Used 4% Lidocaine Solution #4- L HIP -Combined with other wound No -Current Size (cm) - Length 2.1 -Current Size (cm) - Width 1.5 -Current Size (cm) - Depth 0.3 -Total Square Cm 3.15 -Date of Last Picture (Recall this 11/27/22 field) -Photo Taken Yes -Epithelialization Small 1-33% -Tunneling No -Undermining/Tunneling No -Circular Undermining No -Exudate Amt Small -Exudate Type Serosanguineous -Wound Margin Distinct, Outline Attached -Granulation Amt Large (67-100%) -Granulation Quality Pale,Red -Slough/Fibrin Yes -Necrosis Amt Small (1-33%) -Necrotic Tissue Type Adherent Slough -Texture (Cydney-wound Skin Appearance) Assessed, Scarring -Moisture (Cydney-wound Skin Appearance) Assessed -Color (Cydney-wound Skin Appearance) Assessed -Temperature (Cydney-wound Skin No Abnormality Appearance) (Pt Warm) -Tenderness on Palpation (Cydney-wound No Skin Appearance) -Ulcer Cleansing Soap and Water -Foul Odor after Cleansing No -Anesthetic Used 4% Lidocaine Solution WC - Nurse 2 - General Ulcer CM Notes Start: 11/27/22 09:52 Freq: Status: Active Protocol: Activity Type Activity Date Activity User E-sign Co-sign Detail Recorded Client Recorded Date Recorded By Document 11/27/22 10:34 JOANNA [id number] 11/27/22 10:55 JOANNA 11/27/22 10:34 Wound Center Nurse 2 #7- R ISCHIUM -Time 10:35 -Correct Patient Yes -Correct Side, Site, Position Yes -Correct Procedure Yes -Procedure Performed Yes -Type of Procedure Debridement -Clinical Debridement Subcutaneous -Tissue Removed Subcutaneous -Post Debridement (cm) - Length 2.7 -Post Debridement (cm) - Width 1.1 -Post Debridement (cm) - Depth 1.5 -Total Square (Post) (cm) 2.97 -Area of Debridement (cm) - Length 2.7 -Area of Debridement (cm) - Width 1.1 -Total Square (Area) (cm) 2.97 -Tunneling No -Undermining/Tunneling Yes -Undermining/Tunneling Starts (O'clock 10 ) -Undermining/Tunneling Ends (O'clock) 12 -Maximum Distance (cm) 3.0 -Circular Undermining No -Wound/Ulcer Outcome Not Healed -Ulcer Cleansing Rinsed/ Irrigated with Saline -Foul Odor after Cleansing No -Bioengineered Tissue No -Bleeding Controlled with Pressure -Treatment Response Procedure Tolerated Well -Offloading No -Debridement - Subq, 1st 20sq cm No #6- SACRAL CLUSTER -Time 10:39 -Correct Patient Yes -Correct Side, Site, Position Yes -Correct Procedure Yes -Procedure Performed Yes -Type of Procedure Debridement -Clinical Debridement Subcutaneous -Tissue Removed Subcutaneous -Post Debridement (cm) - Length 0.1 -Post Debridement (cm) - Width 0.1 -Post Debridement (cm) - Depth 0.1 -Total Square (Post) (cm) 0.01 -Area of Debridement (cm) - Length 0.1 -Area of Debridement (cm) - Width 0.1 -Total Square (Area) (cm) 0.01 -Tunneling No -Undermining/Tunneling No -Circular Undermining No -Wound/Ulcer Outcome Not Healed -Ulcer Cleansing Rinsed/ Irrigated with Saline -Foul Odor after Cleansing No -Bioengineered Tissue No -Bleeding Controlled with Pressure -Treatment Response Procedure Tolerated Well -Offloading No -Pressure Reduction Wheelchair cushion -Debridement - Subq, 1st 20sq cm No #5- R HIP -Time 10:39 -Correct Patient Yes -Correct Side, Site, Position Yes -Correct Procedure Yes -Procedure Performed Yes -Type of Procedure Debridement -Clinical Debridement Subcutaneous -Tissue Removed Subcutaneous -Post Debridement (cm) - Length 1.3 -Post Debridement (cm) - Width 2.4 -Post Debridement (cm) - Depth 0.6 -Total Square (Post) (cm) 3.12 -Area of Debridement (cm) - Length 1.3 -Area of Debridement (cm) - Width 2.4 -Total Square (Area) (cm) 3.12 -Tunneling No -Undermining/Tunneling No -Circular Undermining No -Wound/Ulcer Outcome Not Healed -Ulcer Cleansing Rinsed/ Irrigated with Saline -Foul Odor after Cleansing No -Bioengineered Tissue No -Bleeding Controlled with Pressure -Treatment Response Procedure Tolerated Well -Offloading No -Debridement - Subq, 1st 20sq cm No #4- L HIP -Time 10:40 -Correct Patient Yes -Correct Side, Site, Position Yes -Correct Procedure Yes -Procedure Performed Yes -Type of Procedure Debridement -Clinical Debridement Subcutaneous -Tissue Removed Subcutaneous -Post Debridement (cm) - Length 2.5 -Post Debridement (cm) - Width 2.5 -Post Debridement (cm) - Depth 0.1 -Total Square (Post) (cm) 6.25 -Area of Debridement (cm) - Length 2.5 -Area of Debridement (cm) - Width 2.5 -Total Square (Area) (cm) 6.25 -Tunneling No -Undermining/Tunneling No -Circular Undermining No -Wound/Ulcer Outcome Not Healed -Ulcer Cleansing Rinsed/ Irrigated with Saline -Foul Odor after Cleansing No -Bioengineered Tissue No -Bleeding Controlled with Pressure -Treatment Response Procedure Tolerated Well -Offloading No -Debridement - Subq, 1st 20sq cm Yes Pain Scale: 0-10 Numeric Is Patient Pain Free? Yes Additional Wound Wound debrided: Left buttock/Hip Wound Grade/Stage: Stage III Type of Debridement: Excisional debridement Anesthesia Used: 4% Lidocaine Solution Depth: Down to and including healthy tissue and in the subcutaneous layer Percentage of wound debrided: 100 Instrument Used: 5mm curette Tissue Removed: Slough and devitalized tissue Severity: Fat Layer Exposed Amount of bleeding with debridement: Mild Bleeding Controlled with: Pressure Patient tolerated procedure: Patient tolerated procedure well Additional Wound Wound debrided: Right buttock (lateral) Wound Grade/Stage: Stage III Type of Debridement: Excisional debridement Anesthesia Used: 4% Lidocaine Solution Depth: Down to and including healthy tissue and in the subcutaneous layer Percentage of wound debrided: 100 Instrument Used: 5mm curette Tissue Removed: Slough and devitalized tissue Severity: Fat Layer Exposed Amount of bleeding with debridement: Mild Bleeding Controlled with: Pressure Patient tolerated procedure: Patient tolerated procedure well Assessment/Plan Assessment/Plan (1) Decubitus ulcer of right buttock, stage 3: CODE(S): L89.313 - Pressure ulcer of right buttock, stage 3 (2) Decubitus ulcer of left buttock, stage 3: CODE(S): L89.323 - Pressure ulcer of left buttock, stage 3 (3) Sacral decubitus ulcer, stage III: CODE(S): L89.153 - Pressure ulcer of sacral region, stage 3 (4) Multiple sclerosis: CODE(S): G35 - Multiple sclerosis (5) Debility: CODE(S): R53.81 - Other malaise PLAN: Plan Debridement done as documented above, procedure was well-tolerated. Sacral with minimal area left. Right Ischium with no mal odor appreciated however, cultures taken. Continue 10 minutes Dakins soak, Medihoney and aquacel extra to Right Hip. Adaptic and foam dressing to Sacral ulcer. Wound Vac to Left Hip and Right Ischial ulcer. Change every 48 hours by home health, increase settings to 150 mmHg. Continue offloading and adequate protein intake. Follow-up in 2 weeks. Continue other chronic care/management. Her questions were answered and she was advised to call with any further questions or concerns. This note was generated with Victorious dictation software. It may contain incorrect words, spelling, and punctuation that were not noted in checking the note before signing.
[2022-12-11 09:34] VITALS: BP 90/48; PULSE 84; RESP 16; TEMP 36.6
--- NOTE | 2022-12-11 13:39 | PN.PCM_ITS ---
History of Present Illness Date of Service: 12/11/22 Chief Complaint: Nonhealing sacral and bilateral buttock ulcers History of Wound: The patient is a 56-year-old who [facility] to a chronic, nonhealing sacral and bilateral buttock ulcers. Chronic ulcers for which she has been seen here in the past. Last seen here over 2 months ago. History of multiple sclerosis with bilateral lower extremity paresis. Since her last visit, she states that she has been applying Medihoney and Aquacel to the ulcers daily. Also has somebody who comes in overnight and helps her change her position every 2 hours. Has a nurse that comes in from her multiple sclerosis clinic twice a week that helps with wound changes as well. Have remained clean since she had the colostomy placed. She states that her nutrition is also improved with a colostomy in place. She states that she has been taking Premier protein and Leobardo supplements. She feels well overall, no chills, fever, nausea or vomiting. Progress of Wound: Cultures taken from last visit with no growth. Having concerns with the wound Vac. Objective Data Objective Data Vital Signs: Vital Signs Temp Pulse Resp BP O2 Del Method 97.8 F 84 16 90/48 L Room Air 12/11/22 09:34 12/11/22 09:34 12/11/22 09:34 12/11/22 09:34 12/11/22 09:34 Oxygen Delivery Method Room Air Lab / Micro Data Micro: Microbiology 11/27/22 Unknown Wound - Ischium Gram Stain - Final 11/27/22 Unknown Wound - Ischium Wound Culture - Final No growth aerobically. 11/27/22 Unknown Wound - Ischium Anaerobic Culture - Final No growth in 5 days. Charges/Coding Procedures Integumentary 111xxx-113xx: [id number] Natalia subq tissue 20 sq cm/< Add On Codes: 24423 Natalia subq tissue add-on (x1. Additional Sq Cm debrided, please refer to clinical note. ) Physical Exam Const alert and no apparent distress HEENT head/scalp atraumatic Resp normal respiratory effort Extremity normal to inspection Skin Wounds: wounds noted Neuro oriented x3 and CN's II-XII intact bilaterally Psych mental status grossly normal, thought process normal, cooperative and affect normal Appearance: grossly normal Attitude: calm Debridement Note Debridement Note Wound debrided: Right Buttock ( Ischial ) Type of Debridement: Excisional debridement Anesthesia Used: 4% Lidocaine Solution Depth: Down to and including healthy tissue and in the subcutaneous layer Percentage of wound debrided: 100 Instrument Used: 5mm curette Tissue Removed: SLough and devitalized tissue Severity: Fat Layer Exposed Amount of bleeding with debridement: Mild Bleeding Controlled with: Pressure Patient tolerated procedure: Patient tolerated procedure well Post-Debridement Measurements and Additional Note: Post-Debridement Measurements/Treatment - Nurse 1 - General Ulcer Assessment Start: 11/27/22 09:52 Freq: Status: Active Protocol: ASHLEY Activity Type Activity Date Activity User E-sign Co-sign Detail Recorded Client Recorded Date Recorded By Document 11/27/22 09:53 [facility] [id number] 11/27/22 10:20 [facility] Document 12/11/22 09:34 [facility] Desktop 12/11/22 09:57 BM 11/27/22 12/11/22 09:53 09:34 - Today's Visit Information Type of service Follow-up Visit Follow-up Visit (Physician/COMPUTER INSTALLER (Physician/COMPUTER INSTALLER ) ) Arrival Mode Wheelchair Wheelchair Transfer Assistance Other Other Transfer Assist (Other) 2 caregiver transfers Accompanied by caregiver caregiver from [facility] Patient Identification Verified (Name & Yes Yes ) Patient Requires Transmission-Based No No Precautions Vital Signs Temperature (97.8 F-99.1 F) 97.4 F L 97.8 F Temperature Source Temporal Temporal Pulse Rate (60-100) 66 84 Pulse Location Monitor Monitor Respiratory Rate (12-18) 16 16 Respiratory rate source Observation Observation Oxygen Delivery Method Room Air Room Air Blood Pressure (90/60-120/80) 116/84 H 90/48 L Blood Pressure Mean (mm Hg) 94 62 Source Monitor Monitor Position Sitting Sitting Blood Pressure Location Left Arm Left Arm History Since Last Visit- (Skip if this is Patient's initial visit) Have you changed medications since your No No last visit? Any new allergies or adverse reactions No No Had a fall/change in ADL's that may No No increase risk of falls Signs or symptoms of abuse and/or No No neglect since last visit Have you been in the hospital since your No No last visit? Has dressing in place as prescribed Yes Yes Has compression in place as prescribed N/A N/A Has offloadiing in place as prescribed N/A N/A Experienced any changes in pain level or No No management Left Footwear Regular Shoe Slipper Right Footwear Regular Shoe Slipper Pain Scale: 0-10 Numeric Is Patient Pain Free? Yes Yes WC - Nurse 1 - General Ulcer Measurement Start: 11/27/22 09:52 Freq: Status: Active Protocol: Activity Type Activity Date Activity User E-sign Co-sign Detail Recorded Client Recorded Date Recorded By Document 11/27/22 09:53 [facility] [id number] 11/27/22 10:20 BMF Document 12/11/22 09:34 BM Desktop 12/11/22 09:57 BMF 11/27/22 12/11/22 09:53 09:34 Wound Center Nurse 1 #6- SACRAL CLUSTER -Combined with other wound No No -Current Size (cm) - Length 0.1 0.1 -Current Size (cm) - Width 0.1 0.1 -Current Size (cm) - Depth 0.1 0.1 -Total Square Cm 0.01 0.01 -Date of Last Picture (Recall this 11/27/22 field) -Photo Taken Yes -Epithelialization Large 67-100% Large 67-100% -Tunneling No -Undermining/Tunneling No -Circular Undermining No -Exudate Amt None Present -Wound Margin Distinct, Outline Attached -Slough/Fibrin Yes -Necrosis Amt Small (1-33%) -Necrotic Tissue Type Eschar -Texture (Cydney-wound Skin Appearance) Assessed, Assessed, Scarring Scarring -Moisture (Cydney-wound Skin Appearance) Assessed Assessed -Color (Cydney-wound Skin Appearance) Assessed Assessed -Temperature (Cydney-wound Skin No Abnormality No Abnormality Appearance) (Pt Warm) (Pt Warm) -Tenderness on Palpation (Cydney-wound No No Skin Appearance) -Ulcer Cleansing Rinsed/ Irrigated with Saline -Foul Odor after Cleansing No -Anesthetic Used 5% Lidocaine Gel #7- R ISCHIUM -Combined with other wound No No -Current Size (cm) - Length 2.8 1.9 -Current Size (cm) - Width 1.2 3 -Current Size (cm) - Depth 1 2 -Total Square Cm 3.36 5.7 -Date of Last Picture (Recall this 11/27/22 field) -Photo Taken Yes No -Epithelialization None Present None Present -Tunneling Yes No -Tunneling Position (O'clock) 12 -Tunneling Distance (cm) 3 -Undermining/Tunneling No Yes -Undermining/Tunneling Starts (O'clock 10 ) -Undermining/Tunneling Ends (O'clock) 12 -Maximum Distance (cm) 3 -Circular Undermining No No -Exudate Amt Medium Large -Exudate Type Serosanguineous Purulent -Wound Margin Distinct, Distinct, Outline Outline Attached Attached -Granulation Amt Medium (34-66%) Medium (34-66%) -Granulation Quality Pale,Red [place] -Slough/Fibrin Yes Yes -Necrosis Amt Medium (34-66%) Medium (34-66%) -Necrotic Tissue Type Adherent Slough Adherent Slough -Texture (Cydney-wound Skin Appearance) Assessed, Assessed Scarring -Moisture (Cydney-wound Skin Appearance) Assessed Assessed -Color (Cydney-wound Skin Appearance) Assessed Assessed -Temperature (Cydney-wound Skin No Abnormality No Abnormality Appearance) (Pt Warm) (Pt Warm) -Tenderness on Palpation (Cydney-wound No No Skin Appearance) -Ulcer Cleansing Soap and Water Soap and Water -Foul Odor after Cleansing No No -Anesthetic Used 4% Lidocaine 4% Lidocaine Solution Solution #5- R HIP -Combined with other wound No No -Current Size (cm) - Length 2.7 1.9 -Current Size (cm) - Width 2.4 1.1 -Current Size (cm) - Depth 0.3 0.5 -Total Square Cm 6.48 2.09 -Date of Last Picture (Recall this 11/27/22 field) -Photo Taken Yes -Epithelialization Small 1-33% None Present -Tunneling No Yes -Tunneling Position (O'clock) 12 -Tunneling Distance (cm) 0.6 -Undermining/Tunneling Yes No -Undermining/Tunneling Starts (O'clock 3 ) -Undermining/Tunneling Ends (O'clock) 3 -Maximum Distance (cm) 0.4 -Circular Undermining No No -Exudate Amt Medium Medium -Exudate Type Serosanguineous Purulent -Wound Margin Distinct, Distinct, Outline Outline Attached Attached -Granulation Amt Medium (34-66%) Small (1-33%) -Granulation Quality Pale,Red [place] -Slough/Fibrin Yes Yes -Necrosis Amt Medium (34-66%) Large (67-100%) -Necrotic Tissue Type Adherent Slough Adherent Slough -Texture (Cydney-wound Skin Appearance) Assessed, Assessed Scarring -Moisture (Cydney-wound Skin Appearance) Assessed Assessed -Color (Cydney-wound Skin Appearance) Assessed Assessed -Temperature (Cydney-wound Skin No Abnormality No Abnormality Appearance) (Pt Warm) (Pt Warm) -Tenderness on Palpation (Cydney-wound No No Skin Appearance) -Ulcer Cleansing Rinsed/ Rinsed/ Irrigated with Irrigated with Saline Saline -Foul Odor after Cleansing No No -Anesthetic Used 4% Lidocaine 4% Lidocaine Solution Solution #4- L HIP -Combined with other wound No No -Current Size (cm) - Length 2.1 2.4 -Current Size (cm) - Width 1.5 2.4 -Current Size (cm) - Depth 0.3 0.2 -Total Square Cm 3.15 5.76 -Date of Last Picture (Recall this 11/27/22 field) -Photo Taken Yes No -Epithelialization Small 1-33% Small 1-33% -Tunneling No No -Undermining/Tunneling No No -Circular Undermining No No -Exudate Amt Small Medium -Exudate Type Serosanguineous Serosanguineous -Wound Margin Distinct, Distinct, Outline Outline Attached Attached -Granulation Amt Large (67-100%) Large (67-100%) -Granulation Quality Pale,Red [place] -Slough/Fibrin Yes Yes -Necrosis Amt Small (1-33%) Small (1-33%) -Necrotic Tissue Type Adherent Slough Adherent Slough -Texture (Cydney-wound Skin Appearance) Assessed, Assessed Scarring -Moisture (Cydney-wound Skin Appearance) Assessed Assessed -Color (Cydney-wound Skin Appearance) Assessed Assessed -Temperature (Cydney-wound Skin No Abnormality No Abnormality Appearance) (Pt Warm) (Pt Warm) -Tenderness on Palpation (Cydney-wound No No Skin Appearance) -Ulcer Cleansing Soap and Water Soap and Water -Foul Odor after Cleansing No No -Anesthetic Used 4% Lidocaine 4% Lidocaine Solution Solution WC - Nurse 2 - General Ulcer CM Notes Start: 11/27/22 09:52 Freq: Status: Active Protocol: Activity Type Activity Date Activity User E-sign Co-sign Detail Recorded Client Recorded Date Recorded By Document 11/27/22 10:34 JOANNA [id number] 11/27/22 10:55 JF Document 12/11/22 10:22 Desktop 12/11/22 10:39 11/27/22 12/11/22 10:34 10:22 Wound Center Nurse 2 #6- SACRAL CLUSTER -Time 10:39 10:25 -Correct Patient Yes Yes -Correct Side, Site, Position Yes Yes -Correct Procedure Yes Yes -Procedure Performed Yes No -Type of Procedure Debridement -Clinical Debridement Subcutaneous -Tissue Removed Subcutaneous -Post Debridement (cm) - Length 0.1 -Post Debridement (cm) - Width 0.1 -Post Debridement (cm) - Depth 0.1 -Total Square (Post) (cm) 0.01 -Area of Debridement (cm) - Length 0.1 -Area of Debridement (cm) - Width 0.1 -Total Square (Area) (cm) 0.01 -Tunneling No -Undermining/Tunneling No -Circular Undermining No -Wound/Ulcer Outcome Not Healed Healed- Epithelialized -Ulcer Cleansing Rinsed/ Irrigated with Saline -Foul Odor after Cleansing No -Bioengineered Tissue No -Bleeding Controlled with Pressure NA -Treatment Response Procedure Tolerated Well -Offloading No -Assistive Device(s) Wheelchair -Pressure Reduction Wheelchair Specialty bed cushion -Debridement - Subq, 1st 20sq cm No #7- R ISCHIUM -Time 10:35 10:33 -Correct Patient Yes Yes -Correct Side, Site, Position Yes Yes -Correct Procedure Yes Yes -Procedure Performed Yes Yes -Type of Procedure Debridement Debridement -Clinical Debridement Subcutaneous Subcutaneous -Tissue Removed Subcutaneous Subcutaneous -Post Debridement (cm) - Length 2.7 3.0 -Post Debridement (cm) - Width 1.1 1.5 -Post Debridement (cm) - Depth 1.5 1.7 -Total Square (Post) (cm) 2.97 4.50 -Area of Debridement (cm) - Length 2.7 3.0 -Area of Debridement (cm) - Width 1.1 1.5 -Total Square (Area) (cm) 2.97 4.50 -Tunneling No No -Undermining/Tunneling Yes Yes -Undermining/Tunneling Starts (O'clock 10 10 ) -Undermining/Tunneling Ends (O'clock) 12 1 -Maximum Distance (cm) 3.0 3.3 -Circular Undermining No -Wound/Ulcer Outcome Not Healed Not Healed -Ulcer Cleansing Rinsed/ Rinsed/ Irrigated with Irrigated with Saline Saline -Foul Odor after Cleansing No No -Bioengineered Tissue No No -Bleeding Controlled with Pressure Pressure -Treatment Response Procedure Procedure Tolerated Well Tolerated Well -Offloading No -Assistive Device(s) Wheelchair -Pressure Reduction Specialty bed -Debridement - Subq, 1st 20sq cm No No #5- R HIP -Time 10:39 10:24 -Correct Patient Yes Yes -Correct Side, Site, Position Yes Yes -Correct Procedure Yes Yes -Procedure Performed Yes Yes -Type of Procedure Debridement Debridement -Clinical Debridement Subcutaneous Subcutaneous -Tissue Removed Subcutaneous Subcutaneous -Post Debridement (cm) - Length 1.3 1.3 -Post Debridement (cm) - Width 2.4 2.0 -Post Debridement (cm) - Depth 0.6 0.4 -Total Square (Post) (cm) 3.12 2.60 -Area of Debridement (cm) - Length 1.3 1.3 -Area of Debridement (cm) - Width 2.4 2.0 -Total Square (Area) (cm) 3.12 2.60 -Tunneling No No -Undermining/Tunneling No No -Circular Undermining No -Wound/Ulcer Outcome Not Healed Not Healed -Ulcer Cleansing Rinsed/ Rinsed/ Irrigated with Irrigated with Saline Saline -Foul Odor after Cleansing No No -Bioengineered Tissue No No -Bleeding Controlled with Pressure Pressure -Treatment Response Procedure Procedure Tolerated Well Tolerated Well -Offloading No -Debridement - Subq, 20sq cm No No #4- L HIP -Time 10:40 10:23 -Correct Patient Yes Yes -Correct Side, Site, Position Yes Yes -Correct Procedure Yes Yes -Procedure Performed Yes Yes -Type of Procedure Debridement Debridement -Clinical Debridement Subcutaneous Subcutaneous -Tissue Removed Subcutaneous Subcutaneous -Post Debridement (cm) - Length 2.5 2.3 -Post Debridement (cm) - Width 2.5 2.4 -Post Debridement (cm) - Depth 0.1 0.2 -Total Square (Post) (cm) 6.25 5.52 -Area of Debridement (cm) - Length 2.5 2.3 -Area of Debridement (cm) - Width 2.5 2.4 -Total Square (Area) (cm) 6.25 5.52 -Tunneling No No -Undermining/Tunneling No No -Circular Undermining No -Wound/Ulcer Outcome Not Healed Not Healed -Ulcer Cleansing Rinsed/ Rinsed/ Irrigated with Irrigated with Saline Saline -Foul Odor after Cleansing No No -Bioengineered Tissue No No -Bleeding Controlled with Pressure Pressure -Treatment Response Procedure Procedure Tolerated Well Tolerated Well -Offloading No -Debridement - Subq, 1st 20sq cm Yes Yes -Debridement, SubQ, ea addt'l 20sq cm 1 or part thereof Pain Scale: 0-10 Numeric Is Patient Pain Free? Yes Yes WC - Nurse 3 - General Ulcer D/C NN Start: 11/27/22 09:52 Freq: Status: Active Protocol: Activity Type Activity Date Activity User E-sign Co-sign Detail Recorded Client Recorded Date Recorded By Document 11/27/22 12:15 RB [id number] 11/27/22 12:18 RB Document 12/11/22 11:17 BMF Desktop 12/11/22 11:18 BMF 11/27/22 12/11/22 12:15 11:17 Wound Care Center Nurse 3 #6- SACRAL CLUSTER -Primary Dressing Applied Mepilex Border, NonAdherent Contact Layer -Mepilex Border 1 #7- R ISCHIUM -Ulcer Cleansing Wound Cleanser Rinsed/ Irrigated with Saline -Foul Odor after Cleansing No -Negative Pressure Wound Therapy Continue Continue -Setting (mmHg) 150 150 -Negative Pressure is Continuous Continuous -NPWT Application Charge NPWT & NPWT & Debridement (nc Debridement (nc ) ) #5- R HIP -Ulcer Cleansing Rinsed/ Rinsed/ Irrigated with Irrigated with Saline Saline -Foul Odor after Cleansing No -Primary Dressing Applied Aquacel Extra, Aquacel Extra, Mepilex Border Mepilex Border -Other Dressing hydrogel medihoney -Aquacel Extra 1 1 -Mepilex Border 1 1 #4- L HIP -Ulcer Cleansing Rinsed/ Irrigated with Saline -Foul Odor after Cleansing No -Negative Pressure Wound Therapy Continue Continue -Setting (mmHg) 150 150 -Negative Pressure is Continuous Continuous -Other Dressing y connector -NPWT Application Charge NPWT & NPWT - Multiple Debridement (nc Locations ) Pain Scale: 0-10 Numeric Is Patient Pain Free? Yes Yes Teaching: Wound Center Offload: Mattress, Cushion, Reposition -Person Taught Patient -Teaching Method Discussion -Response to teaching Reinforcement needed WC - Visit Discharge Discharge Condition Stable Stable Ambulatory Status Wheelchair Wheelchair Transportation Private Auto Private Auto Accompanied by caregiver from [facility] Medication Reconcilliation completed & No provided to patient/care provider Clinical Summary of Care Provided Yes Additional Wound Wound debrided: Left buttock/Hip Wound Grade/Stage: Stage III Type of Debridement: Excisional debridement Anesthesia Used: 4% Lidocaine Solution Depth: Down to and including healthy tissue and in the subcutaneous layer Percentage of wound debrided: 100 Instrument Used: 5mm curette Tissue Removed: Slough and devitalized tissue Severity: Fat Layer Exposed Amount of bleeding with debridement: Mild Bleeding Controlled with: Pressure Patient tolerated procedure: Patient tolerated procedure well Additional Wound Wound debrided: Right buttock (lateral) Wound Grade/Stage: Stage III Type of Debridement: Excisional debridement Anesthesia Used: 4% Lidocaine Solution Depth: Down to and including healthy tissue and in the subcutaneous layer Percentage of wound debrided: 100 Instrument Used: 5mm curette Tissue Removed: Slough and devitalized tissue Severity: Fat Layer Exposed Amount of bleeding with debridement: Mild Bleeding Controlled with: Pressure Patient tolerated procedure: Patient tolerated procedure well Assessment/Plan Assessment/Plan (1) Decubitus ulcer of right buttock, stage 3: CODE(S): L89.313 - Pressure ulcer of right buttock, stage 3 (2) Decubitus ulcer of left buttock, stage 3: CODE(S): L89.323 - Pressure ulcer of left buttock, stage 3 (3) Sacral decubitus ulcer, stage III: CODE(S): L89.153 - Pressure ulcer of sacral region, stage 3 (4) Multiple sclerosis: CODE(S): G35 - Multiple sclerosis (5) Debility: CODE(S): R53.81 - Other malaise PLAN: Plan Debridement done as documented above, procedure was well-tolerated. Sacral healed. Continue 10 minutes Dakins soak, Medihoney and aquacel extra to Right Hip. Adaptic and foam dressing to Sacral ulcer. Continue Wound Vac at 150 mmHg to Left Hip and Right Ischial ulcer. Change every 48 hours by home health. Home health was advised to order a new wound Vac due to stated concerns. Continue offloading and adequate protein intake. Follow-up in 2 weeks. Continue other chronic care/management. Her questions were answered and she was advised to call with any further questions or concerns. This note was generated with Dragon dictation software. It may contain incorrect words, spelling, and punctuation that were not noted in checking the note before signing.
== END 2022-12-13 23:59 | disposition home or self-care (01) ==
LOC: WC 09:30
PROVIDERS: PCP Family Medicine; Referring Provider Nurse Practitioner Family; Visit Provider Internal Medicine
DX: L89.153 Pressure ulcer of sacral region, stage 3 (principal); L89.313 Pressure ulcer of right buttock, stage 3; L89.323 Pressure ulcer of left buttock, stage 3; Z93.3 Colostomy status; G35 Multiple sclerosis; R53.81 Other malaise; Z79.899 Other long term (current) drug therapy
CPT/HCPCS: 11042; 11045; 87070; 87075; 87205

== ENCOUNTER 2023-01-08 09:30 | Outpatient (RCR) | payer MEDICARE, SELFPAY ==
[2018-02-01 11:47] VITALS: BMI 15.0
[2022-12-14 00:21] VITALS: BP 90/48; PULSE 84; RESP 16; TEMP 36.6
[2022-12-25 09:43] VITALS: BP 99/65; PULSE 87; RESP 16; TEMP 36.3
--- NOTE | 2022-12-25 13:12 | PCM.WC.PN ---
History of Present Illness Date of Service: 12/25/22 Chief Complaint: Nonhealing sacral and bilateral buttock ulcers History of Wound: The patient is a 56-year-old who [facility] a chronic, nonhealing sacral and bilateral buttock ulcers. Chronic ulcers for which she has been seen here in the past. Last seen here over 2 months ago. History of multiple sclerosis with bilateral lower extremity paresis. Since her last visit, she states that she has been applying Medihoney and Aquacel to the ulcers daily. Also has somebody who comes in overnight and helps her change her position every 2 hours. Has a nurse that comes in from her multiple sclerosis clinic twice a week that helps with wound changes as well. Have remained clean since she had the colostomy placed. She states that her nutrition is also improved with a colostomy in place. She states that she has been taking Premier protein and Leobardo supplements. She feels well overall, no chills, fever, nausea or vomiting. Progress of Wound: Concerned about possible infection of the Ischial ulcer due to foul smell. No significant increase in drainage. One episode of chills last week otherwise, no acute concerns. Objective Data Objective Data Vital Signs: Vital Signs Temp Pulse Resp BP 97.3 F L 87 16 99/65 12/25/22 09:43 12/25/22 09:43 12/25/22 09:43 12/25/22 09:43 Charges/Coding Procedures Integumentary [id number]: [id number] Natalia subq tissue 20 sq cm/< Physical Exam Const alert and no apparent distress HEENT head/scalp atraumatic Resp normal respiratory effort Extremity normal to inspection Skin Wounds: wounds noted Neuro oriented x3 and CN's II-XII intact bilaterally Psych mental status grossly normal, thought process normal, cooperative and affect normal Appearance: grossly normal Attitude: calm Debridement Note Debridement Note Wound debrided: Right Buttock ( Ischial ) Type of Debridement: Excisional debridement Anesthesia Used: 4% Lidocaine Solution Depth: Down to and including healthy tissue and in the subcutaneous layer Percentage of wound debrided: 100 Instrument Used: 5mm curette Tissue Removed: SLough and devitalized tissue Severity: Fat Layer Exposed Amount of bleeding with debridement: Mild Bleeding Controlled with: Pressure Patient tolerated procedure: Patient tolerated procedure well Post-Debridement Measurements and Additional Note: Post-Debridement Measurements/Treatment WC - Nurse 1 - General Ulcer Assessment Start: 12/25/22 09:43 Freq: Status: Active Protocol: ASHLEY Activity Type Activity Date Activity User E-sign Co-sign Detail Recorded Client Recorded Date Recorded By Document 12/25/22 09:43 JOANNA Desktop 12/25/22 10:00 12/25/22 09:43 - Today's Visit Information Type of service Follow-up Visit (Physician/[employer] ) Arrival Mode Wheelchair Patient Identification Verified (Name & Yes ) Patient Requires Transmission-Based No Precautions Vital Signs Temperature (97.8 F-99.1 F) 97.3 F L Temperature Source Temporal Pulse Rate (60-100) 87 Pulse Location Monitor Respiratory Rate (12-18) 16 Respiratory rate source Observation Blood Pressure (90/60-120/80) 99/65 Blood Pressure Mean (mm Hg) 76 Source Monitor Position Sitting Blood Pressure Location Right Arm History Since Last Visit- (Skip if this is Patient's initial visit) Have you changed medications since your No last visit? Any new allergies or adverse reactions No Had a fall/change in ADL's that may No increase risk of falls Signs or symptoms of abuse and/or No neglect since last visit Have you been in the hospital since your No last visit? Has dressing in place as prescribed Yes Has compression in place as prescribed N/A Has offloadiing in place as prescribed Yes Experienced any changes in pain level or No management Left Footwear Regular Shoe Right Footwear Regular Shoe Pain Scale: 0-10 Numeric Is Patient Pain Free? No - Nurse 2 - General Ulcer CM Notes Start: 12/25/22 09:43 Freq: Status: Active Protocol: Activity Type Activity Date Activity User E-sign Co-sign Detail Recorded Client Recorded Date Recorded By Document 12/25/22 12:19 [id number] 12/25/22 12:25 12/25/22 12:19 W[facility] Center Nurse 2 #7- R ISCHIUM -Time 10:25 -Correct Patient Yes -Correct Side, Site, Position Yes -Correct Procedure Yes -Procedure Performed Yes -Type of Procedure Debridement -Clinical Debridement Subcutaneous -Tissue Removed Subcutaneous -Post Debridement (cm) - Length 2 -Post Debridement (cm) - Width 1 -Post Debridement (cm) - Depth 0.2 -Total Square (Post) (cm) 2 -Area of Debridement (cm) - Length 2 -Area of Debridement (cm) - Width 1 -Total Square (Area) (cm) 2 -Tunneling Yes -Tunneling Position (O'clock) 12 -Tunneling Distance (cm) 3.7 -Circular Undermining No -Wound/Ulcer Outcome Not Healed -Ulcer Cleansing Rinsed/ Irrigated with Saline -Foul Odor after Cleansing No -Bioengineered Tissue No -Bleeding Controlled with Pressure -Treatment Response Procedure Tolerated Well -Debridement - Subq, 1st 20sq cm No #5- R HIP -Time 10:25 -Correct Patient Yes -Correct Side, Site, Position Yes -Correct Procedure Yes -Procedure Performed Yes -Type of Procedure Debridement -Clinical Debridement Subcutaneous -Tissue Removed Subcutaneous -Post Debridement (cm) - Length 1.5 -Post Debridement (cm) - Width 1 -Post Debridement (cm) - Depth 0.4 -Total Square (Post) (cm) 1.5 -Area of Debridement (cm) - Length 1.5 -Area of Debridement (cm) - Width 1 -Total Square (Area) (cm) 1.5 -Tunneling No -Undermining/Tunneling Yes -Undermining/Tunneling Starts (O'clock 10 ) -Undermining/Tunneling Ends (O'clock) 6 -Maximum Distance (cm) 0.6 -Circular Undermining No -Wound/Ulcer Outcome Not Healed -Ulcer Cleansing Rinsed/ Irrigated with Saline -Foul Odor after Cleansing No -Bioengineered Tissue No -Bleeding Controlled with Pressure -Treatment Response Procedure Tolerated Well -Debridement - Subq, 1st 20sq cm Yes #4- L HIP -Time 10:25 -Correct Patient Yes -Correct Side, Site, Position Yes -Correct Procedure Yes -Procedure Performed Yes -Type of Procedure Debridement -Clinical Debridement Subcutaneous -Tissue Removed Subcutaneous -Post Debridement (cm) - Length 2 -Post Debridement (cm) - Width 2 -Post Debridement (cm) - Depth 0.6 -Total Square (Post) (cm) 4 -Area of Debridement (cm) - Length 2 -Area of Debridement (cm) - Width 1 -Total Square (Area) (cm) 2 -Tunneling No -Undermining/Tunneling No -Circular Undermining No -Wound/Ulcer Outcome Not Healed -Ulcer Cleansing Rinsed/ Irrigated with Saline -Foul Odor after Cleansing No -Bioengineered Tissue No -Bleeding Controlled with Pressure -Treatment Response Procedure Tolerated Well -Offloading No -Debridement - Subq, 1st 20sq cm Yes Pain Scale: 0-10 Numeric Is Patient Pain Free? Yes - Nurse 3 - General Ulcer D/C NN Start: 12/25/22 09:43 Freq: Status: Active Protocol: Activity Type Activity Date Activity User E-sign Co-sign Detail Recorded Client Recorded Date Recorded By Document 12/25/22 10:50 JOANNA Desktop 12/25/22 10:51 JOANNA 12/25/22 10:50 W[facility] Center Nurse 3 #7- R ISCHIUM -Ulcer Cleansing Rinsed/ Irrigated with Saline -Foul Odor after Cleansing No -Other Dressing dakin's -Primary Dressing Covered/Secured with Dry Gauze, Secured with Tape #5- R HIP -Ulcer Cleansing Rinsed/ Irrigated with Saline -Foul Odor after Cleansing No -Primary Dressing Applied Aquacel Extra, Mepilex Border -Aquacel Extra 1 -Mepilex Border 1 #4- L HIP -Ulcer Cleansing Rinsed/ Irrigated with Saline -Foul Odor after Cleansing No -Primary Dressing Applied Mepilex Border -Mepilex Border 1 Pain Scale: 0-10 Numeric Is Patient Pain Free? Yes WC - Visit Discharge Discharge Condition Stable Ambulatory Status Wheelchair Transportation Private Auto Accompanied by caregiver Medication Reconcilliation completed & Yes provided to patient/care provider Clinical Summary of Care Provided Yes Additional Wound Wound debrided: Left buttock/Hip Wound Grade/Stage: Stage III Type of Debridement: Excisional debridement Anesthesia Used: 4% Lidocaine Solution Depth: Down to and including healthy tissue and in the subcutaneous layer Percentage of wound debrided: 100 Instrument Used: 5mm curette Tissue Removed: Slough and devitalized tissue Severity: Fat Layer Exposed Amount of bleeding with debridement: Mild Bleeding Controlled with: Pressure Patient tolerated procedure: Patient tolerated procedure well Additional Wound Wound debrided: Right buttock (lateral) Wound Grade/Stage: Stage III Type of Debridement: Excisional debridement Anesthesia Used: 4% Lidocaine Solution Depth: Down to and including healthy tissue and in the subcutaneous layer Percentage of wound debrided: 100 Instrument Used: 5mm curette Tissue Removed: Slough and devitalized tissue Severity: Fat Layer Exposed Amount of bleeding with debridement: Mild Bleeding Controlled with: Pressure Patient tolerated procedure: Patient tolerated procedure well Assessment/Plan Assessment/Plan (1) Decubitus ulcer of right buttock, stage 3: CODE(S): L89.313 - Pressure ulcer of right buttock, stage 3 (2) Decubitus ulcer of left buttock, stage 3: CODE(S): L89.323 - Pressure ulcer of left buttock, stage 3 (3) Sacral decubitus ulcer, stage III: CODE(S): L89.153 - Pressure ulcer of sacral region, stage 3 (4) Multiple sclerosis: CODE(S): G35 - Multiple sclerosis (5) Debility: CODE(S): R53.81 - Other malaise PLAN: Plan Debridement done as documented above, procedure was well-tolerated. Improving but due to concern for infection per patient, cultures taken. Last culture with no growth. Continue 10 minutes Dakins soak, Medihoney and aquacel extra to Right Hip. Adaptic and foam dressing to Sacral ulcer. Continue Wound Vac at 150 mmHg to Left Hip and Right Ischial ulcer. Change every 48 hours by home health. Continue offloading and adequate protein intake. Follow-up in 2 weeks. Continue other chronic care/management. Her questions were answered and she was advised to call with any further questions or concerns. This note was generated with [facility] dictation software. It may contain incorrect words, spelling, and punctuation that were not noted in checking the note before signing.
[2023-01-08 09:37] VITALS: BP 112/61; PULSE 73; RESP 18; TEMP 36
--- NOTE | 2023-01-08 12:32 | PCM.WC.PN ---
History of Present Illness Date of Service: 01/08/23 Chief Complaint: Nonhealing sacral and bilateral buttock ulcers History of Wound: The patient is a 56-year-old who [facility] to a chronic, nonhealing sacral and bilateral buttock ulcers. Chronic ulcers for which she has been seen here in the past. Last seen here over 2 months ago. History of multiple sclerosis with bilateral lower extremity paresis. Since her last visit, she states that she has been applying Medihoney and Aquacel to the ulcers daily. Also has somebody who comes in overnight and helps her change her position every 2 hours. Has a nurse that comes in from her multiple sclerosis clinic twice a week that helps with wound changes as well. Have remained clean since she had the colostomy placed. She states that her nutrition is also improved with a colostomy in place. She states that she has been taking Premier protein and Leobardo supplements. She feels well overall, no chills, fever, nausea or vomiting. Progress of Wound: No new concerns at this time. Some improvement noted. Denies concerns with foul smell or pain. Objective Data Objective Data Vital Signs: Vital Signs Temp Pulse Resp BP 96.8 F L 73 18 112/61 01/08/23 09:37 01/08/23 09:37 01/08/23 09:37 01/08/23 09:37 Lab / Micro Data Micro: Microbiology 12/25/22 10:25 Wound - Hip Gram Stain - Final 12/25/22 10:25 Wound - Hip Wound Culture - Final Streptococcus gordonii 12/25/22 10:25 Wound - Hip Anaerobic Culture - Final No anaerobic bacteria isolated. Charges/Coding Procedures Integumentary [id number]: [id number] Natalia subq tissue 20 sq cm/< Physical Exam Const alert and no apparent distress HEENT head/scalp atraumatic Resp normal respiratory effort Extremity normal to inspection Skin Wounds: wounds noted Neuro oriented x3 and CN's II-XII intact bilaterally Psych mental status grossly normal, thought process normal, cooperative and affect normal Appearance: grossly normal Attitude: calm Debridement Note Debridement Note Wound debrided: Right Buttock ( Ischial ) Type of Debridement: Excisional debridement Anesthesia Used: 4% Lidocaine Solution Depth: Down to and including healthy tissue and in the subcutaneous layer Percentage of wound debrided: 100 Instrument Used: 5mm curette Tissue Removed: SLough and devitalized tissue Severity: Fat Layer Exposed Amount of bleeding with debridement: Mild Bleeding Controlled with: Pressure Patient tolerated procedure: Patient tolerated procedure well Post-Debridement Measurements and Additional Note: Post-Debridement Measurements/Treatment WC - Nurse 1 - General Ulcer Assessment Start: 12/25/22 09:43 Freq: Status: Active Protocol: ASHLEY Activity Type Activity Date Activity User E-sign Co-sign Detail Recorded Client Recorded Date Recorded By Document 12/25/22 09:43 JF Desktop 12/25/22 10:00 JF Document 01/08/23 09:37 RB Desktop 01/08/23 09:49 RB 12/25/22 01/08/23 09:43 09:37 WC - Today's Visit Information Type of service Follow-up Visit Follow-up Visit (Physician/[employer] (Physician/[employer]SULTANT ) ) Arrival Mode Wheelchair Wheelchair Transfer Assistance Manual Patient Identification Verified (Name & Yes Yes ) Patient Requires Transmission-Based No No Precautions Vital Signs Temperature (97.8 F-99.1 F) 97.3 F L 96.8 F L Temperature Source Temporal Temporal Pulse Rate (60-100) 87 73 Pulse Location Monitor Monitor Respiratory Rate (12-18) 16 18 Respiratory rate source Observation Observation Blood Pressure (90/60-120/80) 99/65 112/61 Blood Pressure Mean (mm Hg) 76 78 Source Monitor Monitor Position Sitting Semi-Fowlers Blood Pressure Location Right Arm Left Arm History Since Last Visit- (Skip if this is Patient's initial visit) Have you changed medications since your No No last visit? Any new allergies or adverse reactions No No Had a fall/change in ADL's that may No No increase risk of falls Signs or symptoms of abuse and/or No No neglect since last visit Have you been in the hospital since your No No last visit? Has dressing in place as prescribed Yes Yes Has compression in place as prescribed N/A No Has offloadiing in place as prescribed Yes Yes Experienced any changes in pain level or No No management Left Footwear Regular Shoe Right Footwear Regular Shoe Pain Scale: 0-10 Numeric Is Patient Pain Free? No Yes REA Rivera Nurse 1 - General Ulcer Measurement Start: 12/25/22 09:43 Freq: Status: Active Protocol: Activity Type Activity Date Activity User E-sign Co-sign Detail Recorded Client Recorded Date Recorded By Document 01/08/23 09:37 RB Desktop 01/08/23 09:49 RB 01/08/23 09:37 Wound Center Nurse 1 #7- R ISCHIUM -Combined with other wound No -Current Size (cm) - Length 1.7 -Current Size (cm) - Width 0.8 -Current Size (cm) - Depth 1.4 -Total Square Cm 1.36 -Photo Taken No -Tunneling No -Undermining/Tunneling Yes -Undermining/Tunneling Starts (O'clock 10 ) -Undermining/Tunneling Ends (O'clock) 12 -Maximum Distance (cm) 3.2 -Exudate Amt Large -Exudate Type Serosanguineous -Wound Margin Distinct, Outline Attached -Granulation Amt Medium (34-66%) -Granulation Quality [place] -Slough/Fibrin Yes -Necrosis Amt Medium (34-66%) -Necrotic Tissue Type Adherent Slough -Structure Exposed N/A -Texture ([place]yd[place]-wound Skin Appearance) Assessed, Scarring -Moisture ([place]-wound Skin Appearance) Assessed -Color ([place]-wound Skin Appearance) Assessed -Temperature ([place]-wound Skin No Abnormality Appearance) (Pt Warm) -Tenderness on Palpation ([place]-wound No Skin Appearance) -Ulcer Cleansing Wound Cleanser -Foul Odor after Cleansing No -Anesthetic Used 5% Lidocaine Gel #5- R HIP -Combined with other wound No -Current Size (cm) - Length 0.9 -Current Size (cm) - Width 1.2 -Current Size (cm) - Depth 0.5 -Total Square Cm 1.08 -Tunneling No -Undermining/Tunneling No -Circular Undermining No -Exudate Amt Large -Exudate Type Serosanguineous -Wound Margin Distinct, Outline Attached -Granulation Amt Medium (34-66%) -Granulation Quality [place] -Slough/Fibrin Yes -Necrosis Amt Medium (34-66%) -Necrotic Tissue Type Adherent Slough -Structure Exposed N/A -Texture ([place]-wound Skin Appearance) Assessed, Scarring -Moisture ([place]-wound Skin Appearance) Assessed -Color ([place]-wound Skin Appearance) Assessed -Temperature ([place]-wound Skin No Abnormality Appearance) (Pt Warm) -Tenderness on Palpation ([place]-wound No Skin Appearance) -Ulcer Cleansing Wound Cleanser -Foul Odor after Cleansing No -Anesthetic Used 5% Lidocaine Gel #4- L HIP -Combined with other wound No -Current Size (cm) - Length 2 -Current Size (cm) - Width 2 -Current Size (cm) - Depth 0.5 -Total Square Cm 4 -Undermining/Tunneling Yes -Undermining/Tunneling Starts (O'clock 12 ) -Undermining/Tunneling Ends (O'clock) 12 -Maximum Distance (cm) 0.6 -Circular Undermining Yes -Exudate Amt Large -Exudate Type Serosanguineous -Wound Margin Distinct, Outline Attached -Granulation Amt Medium (34-66%) -Granulation Quality [place] -Slough/Fibrin Yes -Necrosis Amt Medium (34-66%) -Necrotic Tissue Type Adherent Slough -Structure Exposed N/A -Texture ([place]-wound Skin Appearance) Assessed, Scarring -Moisture ([place]-wound Skin Appearance) Assessed -Color ([place]-wound Skin Appearance) Assessed -Temperature ([place]-wound Skin No Abnormality Appearance) (Pt Warm) -Tenderness on Palpation ([place]yd[place]-wound No Skin Appearance) -Ulcer Cleansing Wound Cleanser -Foul Odor after Cleansing No -Anesthetic Used 5% Lidocaine Gel WC - Nurse 2 - General Ulcer CM Notes Start: 12/25/22 09:43 Freq: Status: Active Protocol: Activity Type Activity Date Activity User E-sign Co-sign Detail Recorded Client Recorded Date Recorded By Document 12/25/22 12:19 GM [id number] 12/25/22 12:25 GM Edit Result 12/25/22 12:19 GM (1) [id number] 12/26/22 15:40 PL Document 01/08/23 10:18 GM Desktop 01/08/23 10:36 GM (1) #7- R ISCHIUM - Clinical Debridement Subcutaneous => Epidermis / Dermis - Debridement - Open, 1st 20sq cm => Yes #4- L HIP - Debridement - Subq, 1st 20sq cm Yes => No 12/25/22 01/08/23 12:19 10:18 Wound Center Nurse 2 #7- R ISCHIUM -Time 10:25 10:25 -Correct Patient Yes Yes -Correct Side, Site, Position Yes Yes -Correct Procedure Yes Yes -Procedure Performed Yes Yes -Type of Procedure Debridement Debridement -Clinical Debridement Epidermis / Subcutaneous Dermis -Tissue Removed Subcutaneous Subcutaneous -Post Debridement (cm) - Length 2 1.6 -Post Debridement (cm) - Width 1 1.0 -Post Debridement (cm) - Depth 0.2 1.3 -Total Square (Post) (cm) 2 1.60 -Area of Debridement (cm) - Length 2 1.6 -Area of Debridement (cm) - Width 1 1.0 -Total Square (Area) (cm) 2 1.60 -Tunneling Yes Yes -Tunneling Position (O'clock) 12 12 -Tunneling Distance (cm) 3.7 4.0 -Undermining/Tunneling No -Circular Undermining No -Wound/Ulcer Outcome Not Healed Not Healed -Ulcer Cleansing Rinsed/ Rinsed/ Irrigated with Irrigated with Saline Saline -Foul Odor after Cleansing No No -Bioengineered Tissue No No -Bleeding Controlled with Pressure Pressure -Treatment Response Procedure Procedure Tolerated Well Tolerated Well -Debridement - Open, 1st 20sq cm Yes -Debridement - Subq, 1st 20sq cm No Yes #5- R HIP -Time 10:25 10:30 -Correct Patient Yes Yes -Correct Side, Site, Position Yes Yes -Correct Procedure Yes Yes -Procedure Performed Yes Yes -Type of Procedure Debridement Debridement -Clinical Debridement Subcutaneous Subcutaneous -Tissue Removed Subcutaneous Subcutaneous -Post Debridement (cm) - Length 1.5 1.5 -Post Debridement (cm) - Width 1 1.0 -Post Debridement (cm) - Depth 0.4 0.3 -Total Square (Post) (cm) 1.5 1.50 -Area of Debridement (cm) - Length 1.5 1.5 -Area of Debridement (cm) - Width 1 1.0 -Total Square (Area) (cm) 1.5 1.50 -Tunneling No No -Undermining/Tunneling Yes No -Undermining/Tunneling Starts (O'clock 10 ) -Undermining/Tunneling Ends (O'clock) 6 -Maximum Distance (cm) 0.6 -Circular Undermining No No -Wound/Ulcer Outcome Not Healed Not Healed -Ulcer Cleansing Rinsed/ Rinsed/ Irrigated with Irrigated with Saline Saline -Foul Odor after Cleansing No No -Bioengineered Tissue No No -Bleeding Controlled with Pressure Pressure -Treatment Response Procedure Procedure Tolerated Well Tolerated Well -Debridement - Subq, 1st 20sq cm Yes No #4- L HIP -Time 10:25 10:19 -Correct Patient Yes Yes -Correct Side, Site, Position Yes Yes -Correct Procedure Yes Yes -Procedure Performed Yes Yes -Type of Procedure Debridement Debridement -Clinical Debridement Subcutaneous Subcutaneous -Tissue Removed Subcutaneous Subcutaneous -Post Debridement (cm) - Length 2 1.6 -Post Debridement (cm) - Width 2 2.2 -Post Debridement (cm) - Depth 0.6 0.6 -Total Square (Post) (cm) 4 3.52 -Area of Debridement (cm) - Length 2 1.6 -Area of Debridement (cm) - Width 1 2.2 -Total Square (Area) (cm) 2 3.52 -Tunneling No No -Undermining/Tunneling No No -Circular Undermining No No -Wound/Ulcer Outcome Not Healed Not Healed -Ulcer Cleansing Rinsed/ Rinsed/ Irrigated with Irrigated with Saline Saline -Foul Odor after Cleansing No No -Bioengineered Tissue No No -Bleeding Controlled with Pressure Pressure -Treatment Response Procedure Procedure Tolerated Well Tolerated Well -Offloading No -Assistive Device(s) Wheelchair -Pressure Reduction Wheelchair cushion, Specialty bed -Debridement - Subq, 1st 20sq cm No No Pain Scale: 0-10 Numeric Is Patient Pain Free? Yes Yes - Nurse 3 - General Ulcer D/C NN Start: 12/25/22 09:43 Freq: Status: Active Protocol: Activity Type Activity Date Activity User E-sign Co-sign Detail Recorded Client Recorded Date Recorded By Document 12/25/22 10:50 Desktop 12/25/22 10:51 Document 01/08/23 10:43 RB Desktop 01/08/23 10:45 RB 12/25/22 01/08/23 10:50 10:43 Wound Care Center Nurse 3 #7- R ISCHIUM -Ulcer Cleansing Rinsed/ Wound Cleanser Irrigated with Saline -Foul Odor after Cleansing No -Negative Pressure Wound Therapy Continue -Setting (mmHg) 150 -Negative Pressure is Continuous -Other Dressing dakin's -Primary Dressing Covered/Secured with Dry Gauze, Secured with Tape -NPWT Application Charge NPWT & Debridement (nc ) #5- R HIP -Ulcer Cleansing Rinsed/ Irrigated with Saline -Foul Odor after Cleansing No -Primary Dressing Applied Aquacel Extra, Aquacel Extra, Mepilex Border Mepilex Border -Other Dressing [facility] -Aquacel Extra 1 1 -Mepilex Border 1 1 #4- L HIP -Ulcer Cleansing Rinsed/ Wound Cleanser Irrigated with Saline -Foul Odor after Cleansing No -Negative Pressure Wound Therapy Continue -Setting (mmHg) 150 -Negative Pressure is Continuous -Primary Dressing Applied Mepilex Border -NPWT Application Charge NPWT & Debridement (nc ) -Mepilex Border 1 Treatment Response Procedure Tolerated Well Pain Scale: 0-10 Numeric Is Patient Pain Free? Yes Yes WC - Visit Discharge Discharge Condition Stable Stable Ambulatory Status Wheelchair Wheelchair Transportation Private Auto Private Auto Accompanied by caregiver Medication Reconcilliation completed & Yes No provided to patient/care provider Clinical Summary of Care Provided Yes Yes Additional Wound Wound debrided: Left buttock/Hip Wound Grade/Stage: Stage III Type of Debridement: Excisional debridement Anesthesia Used: 4% Lidocaine Solution Depth: Down to and including healthy tissue and in the subcutaneous layer Percentage of wound debrided: 100 Instrument Used: 5mm curette Tissue Removed: Slough and devitalized tissue Severity: Fat Layer Exposed Amount of bleeding with debridement: Mild Bleeding Controlled with: Pressure Patient tolerated procedure: Patient tolerated procedure well Additional Wound Wound debrided: Right buttock (lateral) Wound Grade/Stage: Stage III Type of Debridement: Excisional debridement Anesthesia Used: 4% Lidocaine Solution Depth: Down to and including healthy tissue and in the subcutaneous layer Percentage of wound debrided: 100 Instrument Used: 5mm curette Tissue Removed: Slough and devitalized tissue Severity: Fat Layer Exposed Amount of bleeding with debridement: Mild Bleeding Controlled with: Pressure Patient tolerated procedure: Patient tolerated procedure well Assessment/Plan Assessment/Plan (1) Decubitus ulcer of right buttock, stage 3: CODE(S): L89.313 - Pressure ulcer of right buttock, stage 3 (2) Decubitus ulcer of left buttock, stage 3: CODE(S): L89.323 - Pressure ulcer of left buttock, stage 3 (3) Sacral decubitus ulcer, stage III: CODE(S): L89.153 - Pressure ulcer of sacral region, stage 3 (4) Multiple sclerosis: CODE(S): G35 - Multiple sclerosis (5) Debility: CODE(S): R53.81 - Other malaise PLAN: Plan Debridement done as documented above, procedure was well-tolerated. Some improvement noted. Continue 10 minutes Dakins soak, Medihoney and Aquacel extra to Right Hip. Adaptic and foam dressing to Sacral ulcer. Continue Wound Vac at 150 mmHg to Left Hip and Right Ischial ulcer. Change every 48 hours by home health. Continue offloading and adequate protein intake. Follow-up in 2 weeks. Continue other chronic care/management. Her questions were answered and she was advised to call with any further questions or concerns. This note was generated with [employer] dictation software. It may contain incorrect words, spelling, and punctuation that were not noted in checking the note before signing.
== END 2023-01-13 23:59 | disposition home or self-care (01) ==
LOC: WC 09:30
PROVIDERS: PCP Family Medicine; Referring Provider Nurse Practitioner Family; Visit Provider Internal Medicine
DX: L89.313 Pressure ulcer of right buttock, stage 3 (principal); L89.323 Pressure ulcer of left buttock, stage 3; L89.153 Pressure ulcer of sacral region, stage 3; Z93.3 Colostomy status; G35 Multiple sclerosis; R53.81 Other malaise; Z79.899 Other long term (current) drug therapy
CPT/HCPCS: 11042; 87070; 87075; 87077; 87186; 87205; 97597

== ENCOUNTER → 2023-02-09 | Outpatient (CLI) | payer MEDICARE, SELFPAY ==
[2018-02-01 11:47] VITALS: BMI 15.0
[2023-02-09 16:20] LABS: Color, Urine Yellow (Yellow); Glucose, Dipstick Normal (Normal); Ketone-Dipstick Negative (Negative); Leukocyte Esterase-Dipstick 100 /ul (Negative); Nitrite-Dipstick Positive (Negative); Occult Blood-Urine 10 /ul (Negative); Protein-Dipstick Negative (Negative); Urine Bilirubin Dipstick Negative (Negative); Urine Clarity Clear (Clear); Urine Urobilinogen Normal (Normal)
== END | disposition home or self-care (01) ==
LOC: LAB 15:35
PROVIDERS: PCP Family Medicine; Referring Provider Family Medicine; Visit Provider Family Medicine
DX: N39.0 Urinary tract infection, site not specified (principal)
CPT/HCPCS: 81002; 87077; 87086; 87088; 87186

== ENCOUNTER 2023-02-12 09:30 | Outpatient (RCR) | payer MEDICARE, SELFPAY ==
[2018-02-01 11:47] VITALS: BMI 15.0
[2023-01-14 00:40] VITALS: BP 112/61; PULSE 73; RESP 18; TEMP 36
[2023-01-22 09:26] VITALS: BP 102/56; PULSE 57; RESP 16; TEMP 36.1
--- NOTE | 2023-01-22 10:23 | PN.PCM_ITS ---
History of Present Illness Date of Service: 01/22/23 Chief Complaint: Nonhealing sacral and bilateral buttock ulcers History of Wound: The patient is a 56-year-old who [facility] a chronic, nonhealing sacral and bilateral buttock ulcers. Chronic ulcers for which she has been seen here in the past. Last seen here over 2 months ago. History of multiple sclerosis with bilateral lower extremity paresis. Since her last visit, she states that she has been applying Medihoney and Aquacel to the ulcers daily. Also has somebody who comes in overnight and helps her change her position every 2 hours. Has a nurse that comes in from her multiple sclerosis clinic twice a week that helps with wound changes as well. Have remained clean since she had the colostomy placed. She states that her nutrition is also improved with a colostomy in place. She states that she has been taking Premier protein and Leobardo supplements. She feels well overall, no chills, fever, nausea or vomiting. Progress of Wound: No new concerns at this time. Largely stable ulcers. Objective Data Objective Data Vital Signs: Vital Signs Temp Pulse Resp BP O2 Del Method 96.9 F L 57 L 16 102/56 L Room Air 01/22/23 09:26 01/22/23 09:26 01/22/23 09:26 01/22/23 09:26 01/22/23 09:26 Oxygen Delivery Method Room Air Charges/Coding Procedures Integumentary 111xxx-113xx: 16162 Natalia subq tissue 20 sq cm/< Physical Exam Const alert and no apparent distress HEENT head/scalp atraumatic Resp normal respiratory effort Extremity normal to inspection Skin Wounds: wounds noted Neuro oriented x3 and CN's II-XII intact bilaterally Psych mental status grossly normal, thought process normal, cooperative and affect normal Appearance: grossly normal Attitude: calm Debridement Note Debridement Note Wound debrided: Right Buttock ( Ischial ) Type of Debridement: Excisional debridement Anesthesia Used: 4% Lidocaine Solution Depth: Down to and including healthy tissue and in the subcutaneous layer Percentage of wound debrided: 100 Instrument Used: 5mm curette Tissue Removed: SLough and devitalized tissue Severity: Fat Layer Exposed Amount of bleeding with debridement: Mild Bleeding Controlled with: Pressure Patient tolerated procedure: Patient tolerated procedure well Post-Debridement Measurements and Additional Note: Post-Debridement Measurements/Treatment WC - Nurse 1 - General Ulcer Assessment Start: 01/22/23 09:26 Freq: Status: Active Protocol: ASHLEY Activity Type Activity Date Activity User E-sign Co-sign Detail Recorded Client Recorded Date Recorded By Document 01/22/23 09:26 [facility] Desktop 01/22/23 09:40 [facility] 01/22/23 09:26 WC - Today's Visit Information Type of service Follow-up Visit (Physician/[employer] ) Arrival Mode Wheelchair Transfer Assistance None Accompanied by caregiver Patient Identification Verified (Name & Yes ) Patient Requires Transmission-Based No Precautions Vital Signs Temperature (97.8 F-99.1 F) 96.9 F L Temperature Source Temporal Pulse Rate (60-100) 57 L Pulse Location Monitor Respiratory Rate (12-18) 16 Respiratory rate source Observation Oxygen Delivery Method Room Air Blood Pressure (90/60-120/80) 102/56 L Blood Pressure Mean (mm Hg) 71 Source Monitor Position Sitting Blood Pressure Location Right Arm History Since Last Visit- (Skip if this is Patient's initial visit) Have you changed medications since your No last visit? Any new allergies or adverse reactions No Had a fall/change in ADL's that may No increase risk of falls Signs or symptoms of abuse and/or No neglect since last visit Have you been in the hospital since your No last visit? Has dressing in place as prescribed Yes Has compression in place as prescribed N/A Has offloadiing in place as prescribed N/A Experienced any changes in pain level or No management Pain Scale: 0-10 Numeric Is Patient Pain Free? Yes - Nurse 1 - General Ulcer Measurement Start: 01/22/23 09:26 Freq: Status: Active Protocol: Activity Type Activity Date Activity User E-sign Co-sign Detail Recorded Client Recorded Date Recorded By Document 01/22/23 09:26 [facility] Desktop 01/22/23 09:40 [facility] 01/22/23 09:26 Wound Center Nurse 1 #7- R ISCHIUM -Combined with other wound No -Current Size (cm) - Length 0.9 -Current Size (cm) - Width 0.4 -Current Size (cm) - Depth 1.3 -Total Square Cm 0.36 -Tunneling No -Undermining/Tunneling Yes -Undermining/Tunneling Starts (O'clock 7 ) -Undermining/Tunneling Ends (O'clock) 3 -Maximum Distance (cm) 2.7 -Circular Undermining No -Exudate Amt Large -Exudate Type Serosanguineous -Wound Margin Distinct, Outline Attached -Granulation Amt Medium (34-66%) -Granulation Quality [place] -Slough/Fibrin Yes -Necrosis Amt Small (1-33%) -Necrotic Tissue Type Adherent Slough -Texture ([place]-wound Skin Appearance) Assessed, Scarring -Moisture ([place]-wound Skin Appearance) Assessed -Color ([place]-wound Skin Appearance) Assessed -Temperature ([place]-wound Skin No Abnormality Appearance) (Pt Warm) -Tenderness on Palpation ([place]-wound No Skin Appearance) -Ulcer Cleansing Soap and Water -Foul Odor after Cleansing No -Anesthetic Used 4% Lidocaine Solution #5- R HIP -Combined with other wound No -Current Size (cm) - Length 1.4 -Current Size (cm) - Width 0.7 -Current Size (cm) - Depth 0.1 -Total Square Cm 0.98 -Photo Taken No -Epithelialization None Present -Tunneling No -Undermining/Tunneling No -Circular Undermining No -Exudate Amt Medium -Exudate Type Serosanguineous -Wound Margin Distinct, Outline Attached -Granulation Amt Medium (34-66%) -Granulation Quality [place] -Slough/Fibrin Yes -Necrosis Amt Medium (34-66%) -Necrotic Tissue Type Adherent Slough -Texture ([place]-wound Skin Appearance) Assessed, Scarring -Moisture ([place]-wound Skin Appearance) Assessed -Color ([place]-wound Skin Appearance) Assessed -Temperature ([place]-wound Skin No Abnormality Appearance) (Pt Warm) -Tenderness on Palpation ([place]-wound No Skin Appearance) -Ulcer Cleansing Soap and Water -Foul Odor after Cleansing No -Anesthetic Used 4% Lidocaine Solution #4- L HIP -Combined with other wound No -Current Size (cm) - Length 2 -Current Size (cm) - Width 1.9 -Current Size (cm) - Depth 0.7 -Total Square Cm 3.8 -Photo Taken No -Epithelialization Small 1-33% -Tunneling No -Undermining/Tunneling Yes -Undermining/Tunneling Starts (O'clock 1 ) -Undermining/Tunneling Ends (O'clock) 5 -Maximum Distance (cm) 0.4 -Circular Undermining No -Exudate Amt Medium -Exudate Type Serosanguineous -Wound Margin Distinct, Outline Attached -Granulation Amt Medium (34-66%) -Granulation Quality [place] -Slough/Fibrin Yes -Necrosis Amt Medium (34-66%) -Necrotic Tissue Type Adherent Slough -Texture ([place]-wound Skin Appearance) Assessed, Scarring -Moisture ([place]-wound Skin Appearance) Assessed -Color ([place]-wound Skin Appearance) Assessed -Temperature ([place]-wound Skin No Abnormality Appearance) (Pt Warm) -Tenderness on Palpation ([place]-wound No Skin Appearance) -Ulcer Cleansing Soap and Water -Foul Odor after Cleansing No -Anesthetic Used 4% Lidocaine Solution WC - Nurse 2 - General Ulcer CM Notes Start: 01/22/23 09:26 Freq: Status: Active Protocol: Activity Type Activity Date Activity User E-sign Co-sign Detail Recorded Client Recorded Date Recorded By Document 01/22/23 09:54 Desktop 01/22/23 10:09 01/22/23 09:54 Wound Center Nurse 2 #7- R ISCHIUM -Time 09:54 -Correct Patient Yes -Correct Side, Site, Position Yes -Correct Procedure Yes -Procedure Performed Yes -Type of Procedure Debridement -Clinical Debridement Subcutaneous -Tissue Removed Subcutaneous -Post Debridement (cm) - Length 1.5 -Post Debridement (cm) - Width 0.7 -Post Debridement (cm) - Depth 1.5 -Total Square (Post) (cm) 1.05 -Area of Debridement (cm) - Length 1.5 -Area of Debridement (cm) - Width 0.7 -Total Square (Area) (cm) 1.05 -Tunneling Yes -Tunneling Position (O'clock) 12 -Tunneling Distance (cm) 3.5 -Undermining/Tunneling No -Circular Undermining No -Wound/Ulcer Outcome Not Healed -Ulcer Cleansing Rinsed/ Irrigated with Saline -Foul Odor after Cleansing No -Bioengineered Tissue No -Bleeding Controlled with Pressure -Treatment Response Procedure Tolerated Well -Debridement - Subq, 1st 20sq cm No #5- R HIP -Time 09:58 -Correct Patient Yes -Correct Side, Site, Position Yes -Correct Procedure Yes -Procedure Performed Yes -Type of Procedure Debridement -Clinical Debridement Subcutaneous -Tissue Removed Subcutaneous -Post Debridement (cm) - Length 1.4 -Post Debridement (cm) - Width 1.0 -Post Debridement (cm) - Depth 0.1 -Total Square (Post) (cm) 1.40 -Area of Debridement (cm) - Length 1.4 -Area of Debridement (cm) - Width 1.0 -Total Square (Area) (cm) 1.40 -Tunneling No -Undermining/Tunneling No -Circular Undermining No -Wound/Ulcer Outcome Not Healed -Ulcer Cleansing Rinsed/ Irrigated with Saline -Foul Odor after Cleansing No -Bioengineered Tissue No -Bleeding Controlled with Pressure -Treatment Response Procedure Tolerated Well -Assistive Device(s) Wheelchair -Pressure Reduction Wheelchair cushion -Debridement - Subq, 1st 20sq cm No #4- L HIP -Time 09:58 -Correct Patient Yes -Correct Side, Site, Position Yes -Correct Procedure Yes -Procedure Performed Yes -Type of Procedure Debridement -Clinical Debridement Subcutaneous -Tissue Removed Subcutaneous -Post Debridement (cm) - Length 2.0 -Post Debridement (cm) - Width 2.0 -Post Debridement (cm) - Depth 0.7 -Total Square (Post) (cm) 4.00 -Tunneling No -Undermining/Tunneling No -Wound/Ulcer Outcome Not Healed -Ulcer Cleansing Rinsed/ Irrigated with Saline -Foul Odor after Cleansing No -Bioengineered Tissue No -Bleeding Controlled with Pressure -Treatment Response Procedure Tolerated Well -Assistive Device(s) Wheelchair -Pressure Reduction Wheelchair cushion -Debridement - Subq, 1st 20sq cm Yes Pain Scale: 0-10 Numeric Is Patient Pain Free? Yes Additional Wound Wound debrided: Left buttock/Hip Wound Grade/Stage: Stage III Type of Debridement: Excisional debridement Anesthesia Used: 4% Lidocaine Solution Depth: Down to and including healthy tissue and in the subcutaneous layer Percentage of wound debrided: 100 Instrument Used: 5mm curette Tissue Removed: Slough and devitalized tissue Severity: Fat Layer Exposed Amount of bleeding with debridement: Mild Bleeding Controlled with: Pressure Patient tolerated procedure: Patient tolerated procedure well Additional Wound Wound debrided: Right buttock (lateral) Wound Grade/Stage: Stage III Type of Debridement: Excisional debridement Anesthesia Used: 4% Lidocaine Solution Depth: Down to and including healthy tissue and in the subcutaneous layer Percentage of wound debrided: 100 Instrument Used: 5mm curette Tissue Removed: Slough and devitalized tissue Severity: Fat Layer Exposed Amount of bleeding with debridement: Mild Bleeding Controlled with: Pressure Patient tolerated procedure: Patient tolerated procedure well Assessment/Plan Assessment/Plan (1) Decubitus ulcer of right buttock, stage 3: CODE(S): L89.313 - Pressure ulcer of right buttock, stage 3 (2) Decubitus ulcer of left buttock, stage 3: CODE(S): L89.323 - Pressure ulcer of left buttock, stage 3 (3) Sacral decubitus ulcer, stage III: CODE(S): L89.153 - Pressure ulcer of sacral region, stage 3 (4) Multiple sclerosis: CODE(S): G35 - Multiple sclerosis (5) Debility: CODE(S): R53.81 - Other malaise PLAN: Plan Debridement done as documented above, procedure was well-tolerated. Some improvement noted. Continue 10 minutes Dakins soak, Medihoney and Aquacel extra to Right and left hip. Continue Wound Vac at 150 mmHg to Right Ischial ulcer. Change every 48 hours by home health. Continue offloading and adequate protein intake. Follow-up in 1 week. Continue other chronic care/management. Her questions were answered and she was advised to call with any further questions or concerns. This note was generated with [employer] dictation software. It may contain incorrect words, spelling, and punctuation that were not noted in checking the note before signing.
[2023-01-29 10:06] VITALS: BP 124/74; PULSE 87; RESP 16; TEMP 37.6
--- NOTE | 2023-01-29 11:45 | PN.PCM_ITS ---
History of Present Illness Date of Service: 01/29/23 Chief Complaint: Nonhealing sacral and bilateral buttock ulcers History of Wound: The patient is a 56-year-old who [facility] to a chronic, nonhealing sacral and bilateral buttock ulcers. Chronic ulcers for which she has been seen here in the past. Last seen here over 2 months ago. History of multiple sclerosis with bilateral lower extremity paresis. Since her last visit, she states that she has been applying Medihoney and Aquacel to the ulcers daily. Also has somebody who comes in overnight and helps her change her position every 2 hours. Has a nurse that comes in from her multiple sclerosis clinic twice a week that helps with wound changes as well. Have remained clean since she had the colostomy placed. She states that her nutrition is also improved with a colostomy in place. She states that she has been taking Premier protein and Leobardo supplements. She feels well overall, no chills, fever, nausea or vomiting. Progress of Wound: Reports significant foul smell from the ischial ulcer. Said to have been present for a couple days. Temperature higher than typical for her. She also states that her right upper extremity feels heavier which typically happens when she has an infection. Objective Data Objective Data Vital Signs: Vital Signs Temp Pulse Resp BP O2 Del Method 99.7 F H 87 16 124/74 H Room Air 01/29/23 10:06 01/29/23 10:06 01/29/23 10:06 01/29/23 10:06 01/29/23 10:06 Oxygen Delivery Method Room Air Charges/Coding Procedures Integumentary 111xxx-113xx: 16122 Natalia subq tissue 20 sq cm/< Physical Exam Const alert and no apparent distress HEENT head/scalp atraumatic Resp normal respiratory effort Extremity normal to inspection Skin Wounds: wounds noted Neuro oriented x3 and CN's II-XII intact bilaterally Psych mental status grossly normal, thought process normal, cooperative and affect normal Appearance: grossly normal Attitude: calm Debridement Note Debridement Note Wound debrided: Right Buttock ( Ischial ) Wound Grade/Stage: Stage III Type of Debridement: Excisional debridement Anesthesia Used: 4% Lidocaine Solution Depth: Down to and including healthy tissue and in the subcutaneous layer Percentage of wound debrided: 100 Instrument Used: 5mm curette Tissue Removed: SLough and devitalized tissue Severity: Fat Layer Exposed Amount of bleeding with debridement: Mild Bleeding Controlled with: Pressure Patient tolerated procedure: Patient tolerated procedure well Post-Debridement Measurements and Additional Note: Post-Debridement Measurements/Treatment - Nurse 1 - General Ulcer Assessment Start: 01/22/23 09:26 Freq: Status: Active Protocol: ASHLEY Activity Type Activity Date Activity User E-sign Co-sign Detail Recorded Client Recorded Date Recorded By Document 01/22/23 09:26 [facility] Desktop 01/22/23 09:40 [facility] Document 01/29/23 10:06 [facility] Desktop 01/29/23 10:19 BMF 01/22/23 01/29/23 09:26 10:06 WC - Today's Visit Information Type of service Follow-up Visit Follow-up Visit (Physician/DAIRY [employer] MANAGER (Physician/DAIRY C[employer] FARM MANAGER ) ) Arrival Mode Wheelchair Wheelchair Transfer Assistance None Other Transfer Assist (Other) CARAEGIVER TRANSFERS Accompanied by caregiver CAREGIVER Patient Identification Verified (Name & Yes Yes ) Patient Requires Transmission-Based No No Precautions Vital Signs Temperature (97.8 F-99.1 F) 96.9 F L 99.7 F H Temperature Source Temporal Temporal Pulse Rate (60-100) 57 L 87 Pulse Location Monitor Monitor Respiratory Rate (12-18) 16 16 Respiratory rate source Observation Observation Oxygen Delivery Method Room Air Room Air Blood Pressure (90/60-120/80) 102/56 L 124/74 H Blood Pressure Mean (mm Hg) 71 90 Source Monitor Monitor Position Sitting Sitting Blood Pressure Location Right Arm Right Arm History Since Last Visit- (Skip if this is Patient's initial visit) Have you changed medications since your No No last visit? Any new allergies or adverse reactions No No Had a fall/change in ADL's that may No No increase risk of falls Signs or symptoms of abuse and/or No No neglect since last visit Have you been in the hospital since your No No last visit? Has dressing in place as prescribed Yes Yes Has compression in place as prescribed N/A N/A Has offloadiing in place as prescribed N/A N/A Experienced any changes in pain level or No No management Left Footwear Regular Shoe Right Footwear Regular Shoe Pain Scale: 0-10 Numeric Is Patient Pain Free? Yes Yes REA Rivera Nurse 1 - General Ulcer Measurement Start: 01/22/23 09:26 Freq: Status: Active Protocol: Activity Type Activity Date Activity User E-sign Co-sign Detail Recorded Client Recorded Date Recorded By Document 01/22/23 09:26 [facility] Desktop 01/22/23 09:40 [facility] Document 01/29/23 10:06 [facility] Desktop 01/29/23 10:19 [facility] 01/22/23 01/29/23 09:26 10:06 Wound Center Nurse 1 #7- R ISCHIUM -Combined with other wound No -Current Size (cm) - Length 0.9 -Current Size (cm) - Width 0.4 -Current Size (cm) - Depth 1.3 -Total Square Cm 0.36 -Tunneling No -Undermining/Tunneling Yes -Undermining/Tunneling Starts (O'clock 7 ) -Undermining/Tunneling Ends (O'clock) 3 -Maximum Distance (cm) 2.7 -Circular Undermining No -Exudate Amt Large Large -Exudate Type Serosanguineous Purulent -Wound Margin Distinct, Distinct, Outline Outline Attached Attached -Granulation Amt Medium (34-66%) Large (67-100%) -Granulation Quality [place] -Slough/Fibrin Yes Yes -Necrosis Amt Small (1-33%) Small (1-33%) -Necrotic Tissue Type Adherent Slough Adherent Slough -Texture (Cydney-wound Skin Appearance) Assessed, Assessed, Scarring Scarring -Moisture ([place]ydney-wound Skin Appearance) Assessed Assessed -Color ([place]ydney-wound Skin Appearance) Assessed Assessed -Temperature ([place]ydney-wound Skin No Abnormality No Abnormality Appearance) (Pt Warm) (Pt Warm) -Tenderness on Palpation (Cydney-wound No Yes Skin Appearance) -Ulcer Cleansing Soap and Water Soap and Water -Foul Odor after Cleansing No No -Anesthetic Used 4% Lidocaine 4% Lidocaine Solution Solution #5- R HIP -Combined with other wound No No -Current Size (cm) - Length 1.4 -Current Size (cm) - Width 0.7 -Current Size (cm) - Depth 0.1 -Total Square Cm 0.98 -Photo Taken No -Epithelialization None Present None Present -Tunneling No -Undermining/Tunneling No -Circular Undermining No -Exudate Amt Medium Medium -Exudate Type Serosanguineous Purulent -Wound Margin Distinct, Distinct, Outline Outline Attached Attached -Granulation Amt Medium (34-66%) None Present (0 %) -Granulation Quality [place] -Slough/Fibrin Yes Yes -Necrosis Amt Medium (34-66%) Large (67-100%) -Necrotic Tissue Type Adherent Slough Adherent Slough -Texture (Cydney-wound Skin Appearance) Assessed, Assessed, Scarring Scarring -Moisture ([place]ydney-wound Skin Appearance) Assessed Assessed -Color ([place]ydney-wound Skin Appearance) Assessed Assessed -Temperature ([place]ydney-wound Skin No Abnormality No Abnormality Appearance) (Pt Warm) (Pt Warm) -Tenderness on Palpation ([place]ydney-wound No No Skin Appearance) -Ulcer Cleansing Soap and Water Soap and Water -Foul Odor after Cleansing No No -Anesthetic Used 4% Lidocaine 4% Lidocaine Solution Solution #4- L HIP -Combined with other wound No No -Current Size (cm) - Length 2 -Current Size (cm) - Width 1.9 -Current Size (cm) - Depth 0.7 -Total Square Cm 3.8 -Photo Taken No -Epithelialization Small 1-33% None Present -Tunneling No No -Undermining/Tunneling Yes No -Undermining/Tunneling Starts (O'clock 1 ) -Undermining/Tunneling Ends (O'clock) 5 -Maximum Distance (cm) 0.4 -Circular Undermining No No -Exudate Amt Medium Medium -Exudate Type Serosanguineous Serosanguineous -Wound Margin Distinct, Distinct, Outline Outline Attached Attached -Granulation Amt Medium (34-66%) Small (1-33%) -Granulation Quality [place] Red -Slough/Fibrin Yes Yes -Necrosis Amt Medium (34-66%) Large (67-100%) -Necrotic Tissue Type Adherent Slough Adherent Slough -Texture (Cydney-wound Skin Appearance) Assessed, Assessed, Scarring Scarring -Moisture ([place]ydney-wound Skin Appearance) Assessed Assessed -Color ([place]ydney-wound Skin Appearance) Assessed Assessed -Temperature ([place]ydney-wound Skin No Abnormality No Abnormality Appearance) (Pt Warm) (Pt Warm) -Tenderness on Palpation (Cydney-wound No No Skin Appearance) -Ulcer Cleansing Soap and Water Soap and Water -Foul Odor after Cleansing No No -Anesthetic Used 4% Lidocaine 4% Lidocaine Solution Solution WC - Nurse 2 - General Ulcer CM Notes Start: 01/22/23 09:26 Freq: Status: Active Protocol: Activity Type Activity Date Activity User E-sign Co-sign Detail Recorded Client Recorded Date Recorded By Document 01/22/23 09:54 Desktop 01/22/23 10:09 Document 01/29/23 10:31 Desktop 01/29/23 10:57 01/22/23 01/29/23 09:54 10:31 Wound Center Nurse 2 #7- R ISCHIUM -Time 09:54 10:31 -Correct Patient Yes Yes -Correct Side, Site, Position Yes Yes -Correct Procedure Yes Yes -Procedure Performed Yes Yes -Type of Procedure Debridement Debridement -Clinical Debridement Subcutaneous Subcutaneous -Tissue Removed Subcutaneous Subcutaneous -Post Debridement (cm) - Length 1.5 2.0 -Post Debridement (cm) - Width 0.7 1.2 -Post Debridement (cm) - Depth 1.5 2.0 -Total Square (Post) (cm) 1.05 2.40 -Area of Debridement (cm) - Length 1.5 2.0 -Area of Debridement (cm) - Width 0.7 1.2 -Total Square (Area) (cm) 1.05 2.40 -Tunneling Yes No -Tunneling Position (O'clock) 12 -Tunneling Distance (cm) 3.5 -Undermining/Tunneling No No -Circular Undermining No No -Wound/Ulcer Outcome Not Healed Not Healed -Ulcer Cleansing Rinsed/ Rinsed/ Irrigated with Irrigated with Saline Saline -Foul Odor after Cleansing No No -Bioengineered Tissue No No -Bleeding Controlled with Pressure -Treatment Response Procedure Tolerated Well -Debridement - Subq, 1st 20sq cm No No #5- R HIP -Time 09:58 10:56 -Correct Patient Yes Yes -Correct Side, Site, Position Yes Yes -Correct Procedure Yes Yes -Procedure Performed Yes Yes -Type of Procedure Debridement Debridement -Clinical Debridement Subcutaneous Subcutaneous -Tissue Removed Subcutaneous Subcutaneous -Post Debridement (cm) - Length 1.4 0.8 -Post Debridement (cm) - Width 1.0 0.9 -Post Debridement (cm) - Depth 0.1 0.3 -Total Square (Post) (cm) 1.40 0.72 -Area of Debridement (cm) - Length 1.4 0.8 -Area of Debridement (cm) - Width 1.0 0.9 -Total Square (Area) (cm) 1.40 0.72 -Tunneling No No -Undermining/Tunneling No No -Circular Undermining No No -Wound/Ulcer Outcome Not Healed Not Healed -Ulcer Cleansing Rinsed/ Rinsed/ Irrigated with Irrigated with Saline Saline -Foul Odor after Cleansing No No -Bioengineered Tissue No No -Bleeding Controlled with Pressure Pressure -Treatment Response Procedure Procedure Tolerated Well Tolerated Well -Assistive Device(s) Wheelchair -Pressure Reduction Wheelchair cushion -Debridement - Subq, 1st 20sq cm No Yes #4- L HIP -Time 09:58 10:32 -Correct Patient Yes Yes -Correct Side, Site, Position Yes Yes -Correct Procedure Yes Yes -Procedure Performed Yes Yes -Type of Procedure Debridement Debridement -Clinical Debridement Subcutaneous Subcutaneous -Tissue Removed Subcutaneous Subcutaneous -Post Debridement (cm) - Length 2.0 1.7 -Post Debridement (cm) - Width 2.0 2.5 -Post Debridement (cm) - Depth 0.7 0.2 -Total Square (Post) (cm) 4.00 4.25 -Area of Debridement (cm) - Length 1.7 -Area of Debridement (cm) - Width 2.5 -Total Square (Area) (cm) 4.25 -Tunneling No No -Undermining/Tunneling No No -Circular Undermining No -Wound/Ulcer Outcome Not Healed Not Healed -Ulcer Cleansing Rinsed/ Rinsed/ Irrigated with Irrigated with Saline Saline -Foul Odor after Cleansing No -Bioengineered Tissue No No -Bleeding Controlled with Pressure Pressure -Treatment Response Procedure Procedure Tolerated Well Tolerated Well -Assistive Device(s) Wheelchair -Pressure Reduction Wheelchair cushion -Debridement - Subq, 1st 20sq cm Yes No Pain Scale: 0-10 Numeric Is Patient Pain Free? Yes Yes - Nurse 3 - General Ulcer D/C NN Start: 01/22/23 09:26 Freq: Status: Active Protocol: Activity Type Activity Date Activity User E-sign Co-sign Detail Recorded Client Recorded Date Recorded By Document 01/22/23 10:31 Laptop 01/22/23 10:33 Document 01/29/23 11:05 [facility] Desktop 01/29/23 11:08 [facility] 01/22/23 01/29/23 10:31 11:05 [facility] Nurse 3 #7- R ISCHIUM -Ulcer Cleansing Rinsed/ Rinsed/ Irrigated with Irrigated with Saline Saline -Foul Odor after Cleansing No No -Negative Pressure Wound Therapy Continue Continue -Setting (mmHg) 150 150 -Negative Pressure is Continuous Continuous -Regranex (If Applicable) Continue -Other Dressing VAC PER DL MIXING PICKER TENDER -NPWT Application Charge NPWT </= 50 sq NPWT & cm ($) Debridement (nc ) #5- R HIP -Ulcer Cleansing Not Cleansed Rinsed/ Irrigated with Saline -Foul Odor after Cleansing No -Primary Dressing Applied Aquacel Extra, Aquacel Extra, Mepilex Border Mepilex Border -Other Dressing medihoney MEDIHONEY -Other Covering PER DL MIXING PICKER TENDER -Aquacel Extra 1 1 -Mepilex Border 1 1 #4- L HIP -Ulcer Cleansing Rinsed/ Rinsed/ Irrigated with Irrigated with Saline Saline -Foul Odor after Cleansing No No -Primary Dressing Applied Aquacel Extra, Aquacel Extra, Mepilex Border Mepilex Border -Other Dressing medihoney MEDIHONEY; PER DL MIXING PICKER TENDER -Aquacel Extra 0 0 -Mepilex Border 1 1 Treatment Response Procedure Tolerated Well Pain Scale: 0-10 Numeric Is Patient Pain Free? Yes Yes WC - Visit Discharge Discharge Condition Stable Stable Ambulatory Status Wheelchair Wheelchair Transportation Private Auto Private Auto Accompanied by caregiver [facility] CAREGIVER Medication Reconcilliation completed & Yes provided to patient/care provider Clinical Summary of Care Provided Yes Facility Type Home Health Additional Wound Wound debrided: Left buttock/Hip Wound Grade/Stage: Stage III Type of Debridement: Excisional debridement Anesthesia Used: 4% Lidocaine Solution Depth: Down to and including healthy tissue and in the subcutaneous layer Percentage of wound debrided: 100 Instrument Used: 5mm curette Tissue Removed: Slough and devitalized tissue Severity: Fat Layer Exposed Amount of bleeding with debridement: Mild Bleeding Controlled with: Pressure Patient tolerated procedure: Patient tolerated procedure well Additional Wound Wound debrided: Right buttock (lateral) Wound Grade/Stage: Stage III Type of Debridement: Excisional debridement Anesthesia Used: 4% Lidocaine Solution Depth: Down to and including healthy tissue and in the subcutaneous layer Percentage of wound debrided: 100 Instrument Used: 5mm curette Tissue Removed: Slough and devitalized tissue Severity: Fat Layer Exposed Amount of bleeding with debridement: Mild Bleeding Controlled with: Pressure Patient tolerated procedure: Patient tolerated procedure well Assessment/Plan Assessment/Plan (1) Decubitus ulcer of right buttock, stage 3: CODE(S): L89.313 - Pressure ulcer of right buttock, stage 3 (2) Decubitus ulcer of left buttock, stage 3: CODE(S): L89.323 - Pressure ulcer of left buttock, stage 3 (3) Sacral decubitus ulcer, stage III: CODE(S): L89.153 - Pressure ulcer of sacral region, stage 3 (4) Multiple sclerosis: CODE(S): G35 - Multiple sclerosis (5) Debility: CODE(S): R53.81 - Other malaise PLAN: Plan Debridement done as documented above, procedure was well-tolerated. Foul smell noted from the right ischial ulcer which improved after black foam was taken out. Appears that it had been left in for some time.... Slight increase in size with concern for probe to bone. Cultures taken. Pelvis x-ray ordered, will review. CBC, CMP, ESR, CRP and prealbumin also ordered. She was strongly advised to go to the emergency room if she notes worsening symptoms of feeling unwell as it would be beneficial to get a complete work-up and not just presume that this is just from the ulcer, she voiced understanding. She also states that she will get in touch with her primary care physician. Right hip ulcer did show some improvement and left is stable. For now, continue 10 minutes Dakins soak, Medihoney and Aquacel extra to Right and left hip. Continue Wound Vac at 150 mmHg to Right Ischial ulcer. Change every 48 hours by home health. Continue offloading and adequate protein intake. Follow-up in 2 weeks due to the holiday. Continue other chronic care/management. Her questions were answered and she was advised to call with any further questions or concerns. This note was generated with [employer] dictation software. It may contain incorrect words, spelling, and punctuation that were not noted in checking the note before signing.
[2023-01-29 12:26] LABS: Erythrocyte Sedimentation Rate 67 mm/hr (0-30)
[2023-01-29 12:28] LABS: Absolute Lymphocyte Count 1.73 X10^3/uL (0.83-4.51); Absolute Neutrophil Count 7.6 X10^3/uL (2.0-7.7); Basophil# 0.05 X10^3/uL; Basophil% 0.5 % (0-1); Eosinophil# 0.29 X10^3/uL; Eosinophils% 2.7 % (0-5); Hematocrit 40.7 % (37-47); Hemoglobin 13.3 g/dL (12.0-15.0); Lymphocyte # 1.73 X10^3/ul (0.83-4.51); Lymphocyte % 16.1 % (19-41); Mean Corp Hgb Conc 32.7 g/dL (32-36); Mean Corpuscular Hgb 30.2 pg (27.0-32.0); Mean Corpuscular Volume 92.5 fL (81-99); Monocyte# 0.99 X10^3/uL; Monocyte% 9.2 % (0-10); NRBC Flagged by Analyzer 0.2 % (0-5); Neutrophil # 7.63 X10^3/uL (2.7-7.7); Platelet Count 279 K/mm3 (150-450); RBC Distribution Width CV 13.9 % (11.6-14.6); RBC Distribution Width SD 47.5 fl (35.1-43.9); White Blood Count 10.7 K/mm3 (4.4-11.0)
--- NOTE | 2023-01-29 12:30 | RAD_ITS ---
INDICATION: ISCHEAL ULCER EXAMINATION/TECHNIQUE: X-RAY - XR Hips Bilateral with Pelvis when performed; 2 Views COMPARISON: Prior study dated: 03/02/2021. FINDINGS: PELVIC BONES: No displaced fracture, destructive or sclerotic lesions. Note that overlapping bowel shadows may however obscure fine detail. Sacroiliac joints are unremarkable. No widening of the pubic symphysis. HIPS: The articular structures are unremarkable. No displaced fracture seen in this frontal view. SOFT TISSUES: Artifacts lateral to the left hip Limited evaluation of the soft tissues. Small gas density lateral to the greater trochanter of the left hip could be due to artifact. Soft tissue gas cannot be excluded. Fecal retention. RAD/Hips B/L min 2 views w/ Pelvis IMPRESSION: Subcutaneous swelling of the left hip with questionable gas as described above. Electronically Signed: Jaswant Bunn MD at 13:59 EST ,
[2023-01-29 12:56] LABS: ALB/GLOB Ratio 0.7 RATIO (0.9-2.4); AST(SGOT) 12 U/L (15-37); Alanine Aminotransfer ALT/SGPT 23 U/L (13-56); Albumin, Serum 3.1 g/dL (3.2-5.0); Alkaline Phosphatase 101 U/L (45-117); Anion Gap 6 (5-15); BUN 19 mg/dL (7-18); BUN/Creat Ratio 52.3 RATIO (10-20); Calcium,Total 9.3 mg/dL (8.5-10.1); Chloride 103 mmol/L (98-107); Creatinine, Serum 0.36 mg/dL (0.55-1.02); EST Glomerular Filtration Rate 195 mL/min (>60); Est Glom Filt Rate - Afr Amer 236 mL/min (>60); Globulin 4.4 g/dL (2.2-4.2); Glucose 115 mg/dL (74-106); Potassium 3.8 mmol/L (3.5-5.1); Protein, Total 7.5 g/dL (6.4-8.2); Sodium Level 137 mmol/L (136-145)
[2023-02-12 09:31] VITALS: BP 125/70; PULSE 69; RESP 16; TEMP 35.5
--- NOTE | 2023-02-12 10:22 | PN.PCM_ITS ---
History of Present Illness Date of Service: 02/12/23 Chief Complaint: Nonhealing sacral and bilateral buttock ulcers History of Wound: The patient is a 56-year-old who [facility] to a chronic, nonhealing sacral and bilateral buttock ulcers. Chronic ulcers for which she has been seen here in the past. Last seen here over 2 months ago. History of multiple sclerosis with bilateral lower extremity paresis. Since her last visit, she states that she has been applying Medihoney and Aquacel to the ulcers daily. Also has somebody who comes in overnight and helps her change her position every 2 hours. Has a nurse that comes in from her multiple sclerosis clinic twice a week that helps with wound changes as well. Have remained clean since she had the colostomy placed. She states that her nutrition is also improved with a colostomy in place. She states that she has been taking Premier protein and Leobardo supplements. She feels well overall, no chills, fever, nausea or vomiting. Progress of Wound: No new concerns at this time. Feeling better. Currently on antibiotics following cultures. Denies any significant foul smell or concerns. Objective Data Objective Data Vital Signs: Vital Signs Temp Pulse Resp BP O2 Del Method 96 F L 69 16 125/70 H Room Air 02/12/23 09:31 02/12/23 09:31 02/12/23 09:31 02/12/23 09:31 02/12/23 09:31 Oxygen Delivery Method Room Air Lab / Micro Data 01/29/23 11:45 01/29/23 11:45 Micro: Microbiology 01/29/23 10:51 Wound - Ischium Gram Stain - Final 01/29/23 10:51 Wound - Ischium Wound Culture - Final Enterococcus faecalis Strep anginosus Meth. resistant Staph. aureus 01/29/23 10:51 Wound - Ischium Anaerobic Culture - Final Prevotella melaninogenica Clostridium group Prevotella sarah Charges/Coding Procedures Integumentary [id number]: [id number] Natalia subq tissue 20 sq cm/< Physical Exam Const alert and no apparent distress HEENT head/scalp atraumatic Resp normal respiratory effort Extremity normal to inspection Skin Wounds: wounds noted Neuro oriented x3 and CN's II-XII intact bilaterally Psych mental status grossly normal, thought process normal, cooperative and affect normal Appearance: grossly normal Attitude: calm Debridement Note Debridement Note Wound debrided: Right Buttock ( Ischial ) Wound Grade/Stage: Stage III Type of Debridement: Excisional debridement Anesthesia Used: 4% Lidocaine Solution Depth: Down to and including healthy tissue and in the subcutaneous layer Percentage of wound debrided: 100 Instrument Used: 5mm curette Tissue Removed: SLough and devitalized tissue Severity: Fat Layer Exposed Amount of bleeding with debridement: Mild Bleeding Controlled with: Pressure Patient tolerated procedure: Patient tolerated procedure well Post-Debridement Measurements and Additional Note: Post-Debridement Measurements/Treatment - Nurse 1 - General Ulcer Assessment Start: 01/22/23 09:26 Freq: Status: Active Protocol: ASHLEY Activity Type Activity Date Activity User E-sign Co-sign Detail Recorded Client Recorded Date Recorded By Document 01/22/23 09:26 [facility] Desktop 01/22/23 09:40 BMF Document 01/29/23 10:06 BM[facility] Desktop 01/29/23 10:19 BMF Document 02/12/23 09:31 BMF Desktop 02/12/23 09:42 BMF Edit Result 02/12/23 09:31 BMF (1) Desktop 02/12/23 10:03 GM (1) Offload: Mattress, Cushion, Reposition - Person Taught => Patient - Teaching Method => Discussion - Response to teaching => Verbalize => understanding 01/22/23 01/29/23 02/12/23 09:26 10:06 09:31 [facility] Today's Visit Information Type of service Follow-up Visit Follow-up Visit Follow-up Visit (Physician/CREDIT COLLECTOR (Physician/CREDIT COLLECTOR (Physician/CREDIT COLLECTOR ) ) ) Arrival Mode Wheelchair Wheelchair Wheelchair Transfer Assistance None Other None Transfer Assist (Other) CARAEGIVER caregiver TRANSFERS transfers pt Accompanied by caregiver CAREGIVER Patient Identification Verified (Name & Yes Yes Yes ) Patient Requires Transmission-Based No No No Precautions Vital Signs Temperature (97.8 F-99.1 F) 96.9 F L 99.7 F H 96 F L Temperature Source Temporal Temporal Temporal Pulse Rate (60-100) 57 L 87 69 Pulse Location Monitor Monitor Monitor Respiratory Rate (12-18) 16 16 16 Respiratory rate source Observation Observation Observation Oxygen Delivery Method Room Air Room Air Room Air Blood Pressure (90/60-120/80) 102/56 L 124/74 H 125/70 H Blood Pressure Mean (mm Hg) 71 90 88 Source Monitor Monitor Monitor Position Sitting Sitting Sitting Blood Pressure Location Right Arm Right Arm Right Arm History Since Last Visit- (Skip if this is Patient's initial visit) Have you changed medications since your No No No last visit? Any new allergies or adverse reactions No No No Had a fall/change in ADL's that may No No No increase risk of falls Signs or symptoms of abuse and/or No No No neglect since last visit Have you been in the hospital since your No No No last visit? Has dressing in place as prescribed Yes Yes Has compression in place as prescribed N/A N/A N/A Has offloadiing in place as prescribed N/A N/A N/A Experienced any changes in pain level or No No No management Left Footwear Regular Shoe Regular Shoe Right Footwear Regular Shoe Regular Shoe Pain Scale: 0-10 Numeric Is Patient Pain Free? Yes Yes Yes Teaching: Wound Center Offload: Mattress, Cushion, Reposition -Person Taught Patient -Teaching Method Discussion -Response to teaching Verbalize understanding - Nurse 1 - General Ulcer Measurement Start: 01/22/23 09:26 Freq: Status: Active Protocol: Activity Type Activity Date Activity User E-sign Co-sign Detail Recorded Client Recorded Date Recorded By Document 01/22/23 09:26 [facility] [email or web address] 01/22/23 09:40 [facility] Document 01/29/23 10:06 [facility] Desktop 01/29/23 10:19 [email or web address] Document 02/12/23 09:31 [place] Desktop 02/12/23 09:42 [facility] 01/22/23 01/29/23 02/12/23 09:26 10:06 09:31 Wound Center Nurse 1 #7- R ISCHIUM -Combined with other wound No No -Current Size (cm) - Length 0.9 1 -Current Size (cm) - Width 0.4 0.7 -Current Size (cm) - Depth 1.3 1.3 -Total Square Cm 0.36 0.7 -Photo Taken No -Epithelialization Small 1-33% -Tunneling No No -Undermining/Tunneling Yes No -Undermining/Tunneling Starts (O'clock 7 ) -Undermining/Tunneling Ends (O'clock) 3 -Maximum Distance (cm) 2.7 -Circular Undermining No No -Exudate Amt Large Large Medium -Exudate Type Serosanguineous Purulent Serosanguineous -Wound Margin Distinct, Distinct, Distinct, Outline Outline Outline Attached Attached Attached -Granulation Amt Medium (34-66%) Large (67-100%) Large (67-100%) -Granulation Quality [employer] [place] Red -Slough/Fibrin Yes Yes No -Necrosis Amt Small (1-33%) Small (1-33%) None Present (0 %) -Necrotic Tissue Type Adherent Slough Adherent Slough -Texture (Cydney-wound Skin Appearance) Assessed, Assessed, Assessed, Scarring Scarring Scarring -Moisture (Cydney-wound Skin Appearance) Assessed Assessed Assessed -Color (Cydney-wound Skin Appearance) Assessed Assessed Assessed -Temperature (Cydney-wound Skin No Abnormality No Abnormality No Abnormality Appearance) (Pt Warm) (Pt Warm) (Pt Warm) -Tenderness on Palpation (Cydney-wound No Yes No Skin Appearance) -Ulcer Cleansing Soap and Water Soap and Water Soap and Water -Foul Odor after Cleansing No No No -Anesthetic Used 4% Lidocaine 4% Lidocaine 4% Lidocaine Solution Solution Solution #5- R HIP -Combined with other wound No No No -Current Size (cm) - Length 1.4 0.5 -Current Size (cm) - Width 0.7 1.2 -Current Size (cm) - Depth 0.1 0.6 -Total Square Cm 0.98 0.60 -Photo Taken No No -Epithelialization None Present None Present Small 1-33% -Tunneling No No -Undermining/Tunneling No No -Circular Undermining No No -Exudate Amt Medium Medium Medium -Exudate Type Serosanguineous Purulent Serosanguineous -Wound Margin Distinct, Distinct, Distinct, Outline Outline Outline Attached Attached Attached -Granulation Amt Medium (34-66%) None Present (0 Small (1-33%) %) -Granulation Quality [employer] [place] -Slough/Fibrin Yes Yes Yes -Necrosis Amt Medium (34-66%) Large (67-100%) Large (67-100%) -Necrotic Tissue Type Adherent Slough Adherent Slough Adherent Slough -Texture (Cydney-wound Skin Appearance) Assessed, Assessed, Assessed, Scarring Scarring Scarring -Moisture (Cydney-wound Skin Appearance) Assessed Assessed Assessed -Color (Cydney-wound Skin Appearance) Assessed Assessed Assessed -Temperature (Cydney-wound Skin No Abnormality No Abnormality No Abnormality Appearance) (Pt Warm) (Pt Warm) (Pt Warm) -Tenderness on Palpation (Cydney-wound No No No Skin Appearance) -Ulcer Cleansing Soap and Water Soap and Water Soap and Water -Foul Odor after Cleansing No No No -Anesthetic Used 4% Lidocaine 4% Lidocaine 4% Lidocaine Solution Solution Solution #4- L HIP -Combined with other wound No No No -Current Size (cm) - Length 2 1.7 -Current Size (cm) - Width 1.9 2.4 -Current Size (cm) - Depth 0.7 0.4 -Total Square Cm 3.8 4.08 -Photo Taken No No -Epithelialization Small 1-33% None Present Small 1-33% -Tunneling No No No -Undermining/Tunneling Yes No No -Undermining/Tunneling Starts (O'clock 1 ) -Undermining/Tunneling Ends (O'clock) 5 -Maximum Distance (cm) 0.4 -Circular Undermining No No No -Exudate Amt Medium Medium Medium -Exudate Type Serosanguineous Serosanguineous Serosanguineous -Wound Margin Distinct, Distinct, Thickened & Outline Outline Rolled Under Attached Attached -Granulation Amt Medium (34-66%) Small (1-33%) Large (67-100%) -Granulation Quality [employer] [place] Red Red -Slough/Fibrin Yes Yes Yes -Necrosis Amt Medium (34-66%) Large (67-100%) Small (1-33%) -Necrotic Tissue Type Adherent Slough Adherent Slough Adherent Slough -Texture (Cydney-wound Skin Appearance) Assessed, Assessed, Assessed, Scarring Scarring Scarring -Moisture (Cydney-wound Skin Appearance) Assessed Assessed Assessed -Color (Cydney-wound Skin Appearance) Assessed Assessed Assessed -Temperature (Cydney-wound Skin No Abnormality No Abnormality No Abnormality Appearance) (Pt Warm) (Pt Warm) (Pt Warm) -Tenderness on Palpation (Cydney-wound No No No Skin Appearance) -Ulcer Cleansing Soap and Water Soap and Water Soap and Water -Foul Odor after Cleansing No No No -Anesthetic Used 4% Lidocaine 4% Lidocaine 4% Lidocaine Solution Solution Solution WC - Nurse 2 - General Ulcer CM Notes Start: 01/22/23 09:26 Freq: Status: Active Protocol: Activity Type Activity Date Activity User E-sign Co-sign Detail Recorded Client Recorded Date Recorded By Document 01/22/23 09:54 Desktop 01/22/23 10:09 Document 01/29/23 10:31 Desktop 01/29/23 10:57 Document 02/12/23 09:47 Desktop 02/12/23 10:03 01/22/23 01/29/23 02/12/23 09:54 10:31 09:47 Wound Center Nurse 2 #7- R ISCHIUM -Time 09:54 10:31 09:47 -Correct Patient Yes Yes Yes -Correct Side, Site, Position Yes Yes Yes -Correct Procedure Yes Yes Yes -Procedure Performed Yes Yes Yes -Type of Procedure Debridement Debridement Debridement -Clinical Debridement Subcutaneous Subcutaneous Subcutaneous -Tissue Removed Subcutaneous Subcutaneous Subcutaneous -Post Debridement (cm) - Length 1.5 2.0 1.8 -Post Debridement (cm) - Width 0.7 1.2 0.8 -Post Debridement (cm) - Depth 1.5 2.0 1.4 -Total Square (Post) (cm) 1.05 2.40 1.44 -Area of Debridement (cm) - Length 1.5 2.0 1.8 -Area of Debridement (cm) - Width 0.7 1.2 0.8 -Total Square (Area) (cm) 1.05 2.40 1.44 -Tunneling Yes No Yes -Tunneling Position (O'clock) 12 12 -Tunneling Distance (cm) 3.5 4.3 -Undermining/Tunneling No No No -Circular Undermining No No No -Wound/Ulcer Outcome Not Healed Not Healed Not Healed -Ulcer Cleansing Rinsed/ Rinsed/ Irrigated with Irrigated with Saline Saline -Foul Odor after Cleansing No No No -Bioengineered Tissue No No No -Bleeding Controlled with Pressure Pressure -Treatment Response Procedure Procedure Tolerated Well Tolerated Well -Debridement - Subq, 1st 20sq cm No No Yes #5- R HIP -Time 09:58 10:56 09:47 -Correct Patient Yes Yes Yes -Correct Side, Site, Position Yes Yes Yes -Correct Procedure Yes Yes Yes -Procedure Performed Yes Yes Yes -Type of Procedure Debridement Debridement Debridement -Clinical Debridement Subcutaneous Subcutaneous Subcutaneous -Tissue Removed Subcutaneous Subcutaneous Subcutaneous -Post Debridement (cm) - Length 1.4 0.8 0.5 -Post Debridement (cm) - Width 1.0 0.9 1.0 -Post Debridement (cm) - Depth 0.1 0.3 0.1 -Total Square (Post) (cm) 1.40 0.72 0.50 -Area of Debridement (cm) - Length 1.4 0.8 0.5 -Area of Debridement (cm) - Width 1.0 0.9 1.0 -Total Square (Area) (cm) 1.40 0.72 0.50 -Tunneling No No No -Undermining/Tunneling No No No -Circular Undermining No No No -Wound/Ulcer Outcome Not Healed Not Healed Not Healed -Ulcer Cleansing Rinsed/ Rinsed/ Rinsed/ Irrigated with Irrigated with Irrigated with Saline Saline Saline -Foul Odor after Cleansing No No No -Bioengineered Tissue No No No -Bleeding Controlled with Pressure Pressure Pressure -Treatment Response Procedure Procedure Procedure Tolerated Well Tolerated Well Tolerated Well -Assistive Device(s) Wheelchair -Pressure Reduction Wheelchair cushion -Debridement - Subq, 1st 20sq cm No Yes No #4- L HIP -Time 09:58 10:32 09:47 -Correct Patient Yes Yes Yes -Correct Side, Site, Position Yes Yes Yes -Correct Procedure Yes Yes Yes -Procedure Performed Yes Yes Yes -Type of Procedure Debridement Debridement Debridement -Clinical Debridement Subcutaneous Subcutaneous Subcutaneous -Tissue Removed Subcutaneous Subcutaneous Subcutaneous -Post Debridement (cm) - Length 2.0 1.7 1.6 -Post Debridement (cm) - Width 2.0 2.5 2.5 -Post Debridement (cm) - Depth 0.7 0.2 0.2 -Total Square (Post) (cm) 4.00 4.25 4.00 -Area of Debridement (cm) - Length 1.7 1.6 -Area of Debridement (cm) - Width 2.5 2.5 -Total Square (Area) (cm) 4.25 4.00 -Tunneling No No No -Undermining/Tunneling No No No -Circular Undermining No No -Wound/Ulcer Outcome Not Healed Not Healed Not Healed -Ulcer Cleansing Rinsed/ Rinsed/ Rinsed/ Irrigated with Irrigated with Irrigated with Saline Saline Saline -Foul Odor after Cleansing No No -Bioengineered Tissue No No No -Bleeding Controlled with Pressure Pressure Pressure -Treatment Response Procedure Procedure Procedure Tolerated Well Tolerated Well Tolerated Well -Assistive Device(s) Wheelchair -Pressure Reduction Wheelchair Wheelchair cushion cushion, Specialty bed -Debridement - Subq, 1st 20sq cm Yes No No Pain Scale: 0-10 Numeric Is Patient Pain Free? Yes Yes Yes - Nurse 3 - General Ulcer D/C NN Start: 01/22/23 09:26 Freq: Status: Active Protocol: Activity Type Activity Date Activity User E-sign Co-sign Detail Recorded Client Recorded Date Recorded By Document 01/22/23 10:31 Laptop 01/22/23 10:33 Document 01/29/23 11:05 [facility] Desktop 01/29/23 11:08 [facility] 01/22/23 01/29/23 10:31 11:05 Wound Care Center Nurse 3 #7- R ISCHIUM -Ulcer Cleansing Rinsed/ Rinsed/ Irrigated with Irrigated with Saline Saline -Foul Odor after Cleansing No No -Negative Pressure Wound Therapy Continue Continue -Setting (mmHg) 150 150 -Negative Pressure is Continuous Continuous -Regranex (If Applicable) Continue -Other Dressing VAC PER DL REEFER TRUCK DRIVER -NPWT Application Charge NPWT </= 50 sq NPWT & cm ($) Debridement (nc ) #5- R HIP -Ulcer Cleansing Not Cleansed Rinsed/ Irrigated with Saline -Foul Odor after Cleansing No -Primary Dressing Applied Aquacel Extra, Aquacel Extra, Mepilex Border Mepilex Border -Other Dressing medihoney MEDIHONEY -Other Covering PER DL REEFER TRUCK DRIVER -Aquacel Extra 1 1 -Mepilex Border 1 1 #4- L HIP -Ulcer Cleansing Rinsed/ Rinsed/ Irrigated with Irrigated with Saline Saline -Foul Odor after Cleansing No No -Primary Dressing Applied Aquacel Extra, Aquacel Extra, Mepilex Border Mepilex Border -Other Dressing medihoney MEDIHONEY; PER DL REEFER TRUCK DRIVER -Aquacel Extra 0 0 -Mepilex Border 1 1 Treatment Response Procedure Tolerated Well Pain Scale: 0-10 Numeric Is Patient Pain Free? Yes Yes - Visit Discharge Discharge Condition Stable Stable Ambulatory Status Wheelchair Wheelchair Transportation Private Auto Private Auto Accompanied by caregiver [facility] CAREGIVER Medication Reconcilliation completed & Yes provided to patient/care provider Clinical Summary of Care Provided Yes Facility Type Home Health Additional Wound Wound debrided: Left buttock/Hip Wound Grade/Stage: Stage III Type of Debridement: Excisional debridement Anesthesia Used: 4% Lidocaine Solution Depth: Down to and including healthy tissue and in the subcutaneous layer Percentage of wound debrided: 100 Instrument Used: 5mm curette Tissue Removed: Slough and devitalized tissue Severity: Fat Layer Exposed Amount of bleeding with debridement: Mild Bleeding Controlled with: Pressure Patient tolerated procedure: Patient tolerated procedure well Additional Wound Wound debrided: Right buttock (lateral) Wound Grade/Stage: Stage III Type of Debridement: Excisional debridement Anesthesia Used: 4% Lidocaine Solution Depth: Down to and including healthy tissue and in the subcutaneous layer Percentage of wound debrided: 100 Instrument Used: 5mm curette Tissue Removed: Slough and devitalized tissue Severity: Fat Layer Exposed Amount of bleeding with debridement: Mild Bleeding Controlled with: Pressure Patient tolerated procedure: Patient tolerated procedure well Assessment/Plan Assessment/Plan (1) Decubitus ulcer of right buttock, stage 3: CODE(S): L89.313 - Pressure ulcer of right buttock, stage 3 (2) Decubitus ulcer of left buttock, stage 3: CODE(S): L89.323 - Pressure ulcer of left buttock, stage 3 (3) Sacral decubitus ulcer, stage III: CODE(S): L89.153 - Pressure ulcer of sacral region, stage 3 (4) Multiple sclerosis: CODE(S): G35 - Multiple sclerosis (5) Debility: CODE(S): R53.81 - Other malaise PLAN: Plan Debridement done as documented above, procedure was well-tolerated. Some improvement noted today. Has been on antibiotics per culture and sensitivity. Tolerating medication well without any concerns. She also states that her urine grew organisms and her PCP may be putting her on antibiotics. Currently on amoxicillin, doxycycline and metronidazole. Some improvement in wound size however increased undermining in the right ischial. Continue 10 minutes Dakins soak, Medihoney and Aquacel extra to Right and left hip. Continue Wound Vac at 150 mmHg to Right Ischial ulcer. Change every 48 hours by home health. I nstructions relayed to home health to ensure adequate packing of undermining with black foam. Continue offloading and adequate protein intake. Prealbumin low, she was advised to increase Premeal to 3 times daily. Follow-up in 2 weeks. Continue other chronic care/management. Her questions were answered and she was advised to call with any further questions or concerns. This note was generated with [employer] software. It may contain incorrect words, spelling, and punctuation that were not noted in checking the note before signing.
== END 2023-02-12 23:59 | disposition home or self-care (01) ==
LOC: WC 09:30
PROVIDERS: PCP Family Medicine; Referring Provider Nurse Practitioner Family; Visit Provider Internal Medicine
DX: L89.313 Pressure ulcer of right buttock, stage 3 (principal); L89.323 Pressure ulcer of left buttock, stage 3; L89.153 Pressure ulcer of sacral region, stage 3; Z93.3 Colostomy status; G35 Multiple sclerosis; R53.81 Other malaise; Z79.899 Other long term (current) drug therapy
CPT/HCPCS: 11042; 36415; 73521; 80053; 84134; 85025; 85652; 86140; 87070; 87075; 87077; 87186; 87205; 97605

== ENCOUNTER → 2023-02-26 | Outpatient (CLI) | payer MEDICARE, SELFPAY ==
[2018-02-01 11:47] VITALS: BMI 15.0
[2023-02-26 15:38] LABS: Color, Urine Yellow (Yellow); Glucose, Dipstick Normal (Normal); Ketone-Dipstick Negative (Negative); Leukocyte Esterase-Dipstick 500 /ul (Negative); Nitrite-Dipstick Positive (Negative); Occult Blood-Urine 50 /ul (Negative); Protein-Dipstick 15 mg/dl (Negative); Urine Bilirubin Dipstick Negative (Negative); Urine Clarity Clear (Clear); Urine Urobilinogen Normal (Normal)
== END | disposition home or self-care (01) ==
LOC: LABSPEC 15:12
PROVIDERS: PCP Family Medicine; Visit Provider Family Medicine
DX: N30.00 Acute cystitis without hematuria (principal)
CPT/HCPCS: 81002; 87077; 87086; 87088; 87186

== ENCOUNTER → 2023-03-03 | Outpatient (CLI) | payer MEDICARE, SELFPAY ==
[2018-02-01 11:47] VITALS: BMI 15.0
[2023-03-03 13:37] VITALS: BP 115/66; PULSE 61; RESP 18; TEMP 36.3; O2SAT 99; BMI 17.2
--- NOTE | 2023-03-03 14:59 | PCM.OP.PRO ---
Procedure Report Date of Procedure: 03/03/23 Assessment & Plan Assessment/Plan (1) UTI (urinary tract infection): QUALIFIERS: Urinary tract infection type: acute cystitis Hematuria presence: with hematuria Qualified Code(s): N30.01 - Acute cystitis with hematuria Procedures Radiology Radiology Access Procedures: PICC Procedure Time Out Time Out Informed consent given: Yes Consent signed: Yes Time out checklist: patient, procedure, site marked/identified, positioning of patient, supplies available and allergies confirmed Time out staff in room: Yes Time out verified: Yes Time out date: 03/03/23 Time out time: 14:00 PICC Line Consent Screening tool completed:: Yes Consent obtained:: Yes Consent given by (patient or responsible republican):: PATIENT Line successful (if no, document why in comments):: Yes Insertion Reason for Insertion: Correction Medication Date of Insertion: 03/03/23 Ok to use: Yes Type of PICC inserted: Dual Power PICC PICC Lot #: [id number] PICC Reference #: [id number] Trimmed Length (cm): 32 Insertion Length (cm): 32 Exposed Length (cm): 0 Tip Placement: SVC (Superior Vena Cava) Placement Confirmation: 3CG Insertion Vein: Right Brachial Insertion Attempts: 1 Local Anesthesia Used: Lidocaine 1% (in kit) Dressing Applied: Statlock and Tegaderm CHG Arm Measurement above site (in cm): 26 Patient Tolerated Procedure: Well Threading Difficulties: No Comments Comment: Patient identity was verified with two patient identifiers. Informed consent was obtained and time-out was completed. Hands were sanitized. The patient was positioned supine with right arm arm at approximately 70 degrees, due to patient contracture. The patient's upper arm vasculature was assessed using ultrasound, and the right brachial vein was externally marked. An external measurement was obtained of 32 cm. External leads were applied to the patient's right upper chest and laterally and inferior of the umbilicus on the mid axillary line. Cap, mask, and prep gloves were donned. The underdrape was placed under the patient's arm. The site was prepped with chlorhexidine, and tourniquet was loosely applied. Prep gloves were discarded, and hands were sanitized. The sterile kit was opened with additional supplies dropped in. Sterile gown and gloves were donned, and the patient was draped. The sterile kit was assembled with all needle, introducer, connector, and catheter flushed with sterile normal saline. The marked site of insertion was anesthetized with 1% lidocaine. Patient tolerated well. The right brachial vein was then accessed using ultrasound guidance and guidewire was inserted to safety dora. The tourniquet was released. The access needle was removed while securing the guidewire in place. The site was again anesthetized with 1% lidocaine, prior to insertion of introducer sheath and dilator. Patient tolerated well. The catheter was trimmed to a length of 32 cm. Using 3C guidance, the catheter was then inserted through the introducer sheath, slowly. There was no resistance on insertion. Maximal p-wave, without deflection, was obtained at an insertion length of 32 cm, leaving 0 cm external. The introducer sheath was retracted and peeled away, incrementally, while keeping the catheter secured. The stylet was removed. A flushed needleless connector was attached to both ports. Blood return was verified and both ports were flushed with sterile normal saline in a pulsatile fashion. Total sterile flushes used for the insertion was 6 10 ml syringes. Finally, the insertion site was cleaned with chlorhexidine, and the catheter was secured using a StatLock. The site was covered with a Tegaderm CHG Dressing. Baseline arm circumference was obtained at the insertion site and measured 26 cm. The patient was provided with homegoing instructions on PICC line care.
== END | disposition home or self-care (01) ==
LOC: RAD 12:35
PROVIDERS: PCP Family Medicine; Referring Provider Family Medicine; Visit Provider Family Medicine
DX: N39.0 Urinary tract infection, site not specified (principal)
CPT/HCPCS: 36569

== ENCOUNTER 2023-03-12 09:30 | Outpatient (RCR) | payer MEDICARE, SELFPAY ==
[2018-02-01 11:47] VITALS: BMI 15.0
[2023-02-13 00:43] VITALS: BP 125/70; PULSE 69; RESP 16; TEMP 35.5
[2023-02-26 09:34] VITALS: BP 113/67; PULSE 72; RESP 16; TEMP 36.6
--- NOTE | 2023-02-26 10:26 | PN.PCM_ITS ---
History of Present Illness Date of Service: 02/26/23 Chief Complaint: Nonhealing sacral and bilateral buttock ulcers History of Wound: The patient is a 56-year-old who [facility] a chronic, nonhealing sacral and bilateral buttock ulcers. Chronic ulcers for which she has been seen here in the past. Last seen here over 2 months ago. History of multiple sclerosis with bilateral lower extremity paresis. Since her last visit, she states that she has been applying Medihoney and Aquacel to the ulcers daily. Also has somebody who comes in overnight and helps her change her position every 2 hours. Has a nurse that comes in from her multiple sclerosis clinic twice a week that helps with wound changes as well. Have remained clean since she had the colostomy placed. She states that her nutrition is also improved with a colostomy in place. She states that she has been taking Premier protein and Leobardo supplements. She feels well overall, no chills, fever, nausea or vomiting. Progress of Wound: No new concerns at this time. No significant drainage or foul smell reported. Objective Data Objective Data Vital Signs: Vital Signs Temp Pulse Resp BP O2 Del Method 97.8 F 72 16 113/67 Room Air 02/26/23 09:34 02/26/23 09:34 02/26/23 09:34 02/26/23 09:34 02/26/23 09:34 Oxygen Delivery Method Room Air Charges/Coding Procedures Integumentary 111xxx-113xx: 86508 Natalia subq tissue 20 sq cm/< Physical Exam Const alert and no apparent distress HEENT head/scalp atraumatic Resp normal respiratory effort Extremity normal to inspection Skin Wounds: wounds noted Neuro oriented x3 and CN's II-XII intact bilaterally Psych mental status grossly normal, thought process normal, cooperative and affect normal Appearance: grossly normal Attitude: calm Debridement Note Debridement Note Wound debrided: Right Buttock ( Ischial ) Wound Grade/Stage: Stage III Type of Debridement: Excisional debridement Anesthesia Used: 4% Lidocaine Solution Depth: Down to and including healthy tissue and in the subcutaneous layer Percentage of wound debrided: 100 Instrument Used: 5mm curette Tissue Removed: SLough and devitalized tissue Severity: Fat Layer Exposed Amount of bleeding with debridement: Mild Bleeding Controlled with: Pressure Patient tolerated procedure: Patient tolerated procedure well Post-Debridement Measurements and Additional Note: Post-Debridement Measurements/Treatment WC - Nurse 1 - General Ulcer Assessment Start: 02/26/23 09:33 Freq: Status: Active Protocol: ASHLEY Activity Type Activity Date Activity User E-sign Co-sign Detail Recorded Client Recorded Date Recorded By Document 02/26/23 09:34 [facility] [employer] 02/26/23 09:42 [facility] 02/26/23 09:34 WC - Today's Visit Information Type of service Follow-up Visit (Physician/PORTFOLIO ASSISTANT ) Arrival Mode Wheelchair Transfer Assistance Other Transfer Assist (Other) 3 Accompanied by caregiver Patient Identification Verified (Name & Yes ) Patient Requires Transmission-Based No Precautions Vital Signs Temperature (97.8 F-99.1 F) 97.8 F Temperature Source Temporal Pulse Rate (60-100) 72 Pulse Location Monitor Respiratory Rate (12-18) 16 Respiratory rate source Observation Oxygen Delivery Method Room Air Blood Pressure (90/60-120/80) 113/67 Blood Pressure Mean (mm Hg) 82 Source Monitor Position Sitting Blood Pressure Location Right Arm History Since Last Visit- (Skip if this is Patient's initial visit) Have you changed medications since your No last visit? Any new allergies or adverse reactions No Had a fall/change in ADL's that may No increase risk of falls Signs or symptoms of abuse and/or No neglect since last visit Have you been in the hospital since your No last visit? Has dressing in place as prescribed Yes Has compression in place as prescribed N/A Has offloadiing in place as prescribed N/A Experienced any changes in pain level or No management Left Footwear Regular Shoe Right Footwear Regular Shoe Pain Scale: 0-10 Numeric Is Patient Pain Free? Yes - Nurse 1 - General Ulcer Measurement Start: 02/26/23 09:33 Freq: Status: Active Protocol: Activity Type Activity Date Activity User E-sign Co-sign Detail Recorded Client Recorded Date Recorded By Document 02/26/23 09:34 [facility] [employer] 02/26/23 09:42 [facility] 02/26/23 09:34 Wound Center Nurse 1 #7- R ISCHIUM -Combined with other wound No -Current Size (cm) - Length 0.7 -Current Size (cm) - Width 1 -Current Size (cm) - Depth 1.5 -Total Square Cm 0.7 -Undermining/Tunneling Yes -Undermining/Tunneling Starts (O'clock 12 ) -Undermining/Tunneling Ends (O'clock) 12 -Maximum Distance (cm) 3.2 -Exudate Amt Medium -Exudate Type Serosanguineous -Wound Margin Distinct, Outline Attached -Granulation Amt Large (67-100%) -Granulation Quality Red -Slough/Fibrin No -Necrosis Amt None Present (0 %) -Texture (Cydney-wound Skin Appearance) Assessed, Scarring -Moisture (Cydney-wound Skin Appearance) Assessed, Maceration -Color (Cydney-wound Skin Appearance) Assessed -Temperature (Cydney-wound Skin No Abnormality Appearance) (Pt Warm) -Tenderness on Palpation (Cydney-wound No Skin Appearance) -Ulcer Cleansing Soap and Water -Foul Odor after Cleansing No -Anesthetic Used 4% Lidocaine Solution #5- R HIP -Combined with other wound No -Current Size (cm) - Length 0.5 -Current Size (cm) - Width 0.8 -Current Size (cm) - Depth 0.5 -Total Square Cm 0.40 -Tunneling No -Undermining/Tunneling No -Circular Undermining No -Exudate Amt Medium -Exudate Type Serosanguineous -Wound Margin Distinct, Outline Attached -Granulation Amt Large (67-100%) -Granulation Quality Red -Slough/Fibrin Yes -Necrosis Amt Small (1-33%) -Necrotic Tissue Type Adherent Slough -Texture (Cydney-wound Skin Appearance) Assessed, Scarring -Moisture (Cydney-wound Skin Appearance) Assessed -Color (Cydney-wound Skin Appearance) Assessed -Temperature (Cydney-wound Skin No Abnormality Appearance) (Pt Warm) -Tenderness on Palpation (Cydney-wound No Skin Appearance) -Ulcer Cleansing Soap and Water -Foul Odor after Cleansing No -Anesthetic Used 4% Lidocaine Solution #4- L HIP -Combined with other wound No -Current Size (cm) - Length 1.7 -Current Size (cm) - Width 2.1 -Current Size (cm) - Depth 0.8 -Total Square Cm 3.57 -Tunneling No -Undermining/Tunneling No -Circular Undermining No -Exudate Amt Medium -Exudate Type Serosanguineous -Wound Margin Distinct, Outline Attached -Granulation Amt Medium (34-66%) -Granulation Quality Red -Slough/Fibrin Yes -Necrosis Amt Medium (34-66%) -Necrotic Tissue Type Adherent Slough -Texture (Cydney-wound Skin Appearance) Assessed, Scarring -Moisture (Cydney-wound Skin Appearance) Assessed -Color (Cydney-wound Skin Appearance) Assessed -Temperature (Cydney-wound Skin No Abnormality Appearance) (Pt Warm) -Tenderness on Palpation (Cydney-wound No Skin Appearance) -Ulcer Cleansing Soap and Water -Foul Odor after Cleansing No -Anesthetic Used 4% Lidocaine Solution WC - Nurse 2 - General Ulcer CM Notes Start: 02/26/23 09:33 Freq: Status: Active Protocol: Activity Type Activity Date Activity User E-sign Co-sign Detail Recorded Client Recorded Date Recorded By Document 02/26/23 09:54 Laptop 02/26/23 10:06 02/26/23 09:54 Wound Center Nurse 2 #7- R ISCHIUM -Time 09:57 -Correct Patient Yes -Correct Side, Site, Position Yes -Correct Procedure Yes -Procedure Performed Yes -Type of Procedure Debridement -Clinical Debridement Subcutaneous -Tissue Removed Subcutaneous -Post Debridement (cm) - Length 0.7 -Post Debridement (cm) - Width 1.1 -Post Debridement (cm) - Depth 1.2 -Total Square (Post) (cm) 0.77 -Area of Debridement (cm) - Length 0.7 -Area of Debridement (cm) - Width 1.1 -Total Square (Area) (cm) 0.77 -Tunneling Yes -Tunneling Position (O'clock) 12 -Tunneling Distance (cm) 4.0 -Undermining/Tunneling No -Circular Undermining No -Wound/Ulcer Outcome Not Healed -Ulcer Cleansing Rinsed/ Irrigated with Saline -Foul Odor after Cleansing No -Bioengineered Tissue No -Bleeding Controlled with Pressure -Treatment Response Procedure Tolerated Well -Offloading No -Assistive Device(s) Wheelchair -Pressure Reduction Wheelchair cushion, Mattress overlay -Debridement - Subq, 1st 20sq cm No #5- R HIP -Time 09:57 -Correct Patient Yes -Correct Side, Site, Position Yes -Correct Procedure Yes -Procedure Performed Yes -Type of Procedure Debridement -Clinical Debridement Subcutaneous -Tissue Removed Subcutaneous -Post Debridement (cm) - Length 0.3 -Post Debridement (cm) - Width 0.7 -Post Debridement (cm) - Depth 0.2 -Total Square (Post) (cm) 0.21 -Area of Debridement (cm) - Length 0.3 -Area of Debridement (cm) - Width 0.7 -Total Square (Area) (cm) 0.21 -Tunneling No -Undermining/Tunneling No -Circular Undermining No -Wound/Ulcer Outcome Not Healed -Ulcer Cleansing Rinsed/ Irrigated with Saline -Foul Odor after Cleansing No -Bioengineered Tissue No -Bleeding Controlled with Pressure -Treatment Response Procedure Tolerated Well -Offloading No -Pressure Reduction Wheelchair cushion -Debridement - Subq, 1st 20sq cm No #4- L HIP -Time 09:58 -Correct Patient Yes -Correct Side, Site, Position Yes -Correct Procedure Yes -Procedure Performed Yes -Type of Procedure Debridement -Clinical Debridement Subcutaneous -Tissue Removed Subcutaneous -Post Debridement (cm) - Length 1.8 -Post Debridement (cm) - Width 2.0 -Post Debridement (cm) - Depth 0.1 -Total Square (Post) (cm) 3.60 -Area of Debridement (cm) - Length 1.8 -Area of Debridement (cm) - Width 2.0 -Total Square (Area) (cm) 3.60 -Tunneling No -Undermining/Tunneling No -Circular Undermining No -Wound/Ulcer Outcome Not Healed -Ulcer Cleansing Rinsed/ Irrigated with Saline -Foul Odor after Cleansing No -Bioengineered Tissue No -Bleeding Controlled with Pressure -Treatment Response Procedure Tolerated Well -Offloading No -Pressure Reduction Wheelchair cushion -Debridement - Subq, 1st 20sq cm Yes Pain Scale: 0-10 Numeric Is Patient Pain Free? Yes WC - Nurse 3 - General Ulcer D/C NN Start: 02/26/23 09:33 Freq: Status: Active Protocol: Activity Type Activity Date Activity User E-sign Co-sign Detail Recorded Client Recorded Date Recorded By Document 02/26/23 10:14 DL Desktop 02/26/23 10:19 DL 02/26/23 10:14 Wound Care Center Nurse 3 #7- R ISCHIUM -Ulcer Cleansing Rinsed/ Irrigated with Saline -Foul Odor after Cleansing No -Negative Pressure Wound Therapy Continue -Setting (mmHg) 150 -Negative Pressure is Continuous -NPWT Application Charge NPWT & Debridement (nc ) #5- R HIP -Ulcer Cleansing Rinsed/ Irrigated with Saline -Foul Odor after Cleansing No -Primary Dressing Applied Mepilex Border -Other Dressing promogran -Mepilex Border 1 #4- L HIP -Ulcer Cleansing Rinsed/ Irrigated with Saline -Foul Odor after Cleansing No -Primary Dressing Applied Mepilex Border, Promogran -Mepilex Border 1 -Promogran 1 Treatment Response Procedure Tolerated Well Pain Scale: 0-10 Numeric Is Patient Pain Free? Yes WC - Visit Discharge Discharge Condition Stable Ambulatory Status Wheelchair Transportation Private Auto Facility Type Home Health Orders Sent Yes Additional Wound Wound debrided: Left buttock/Hip Wound Grade/Stage: Stage III Type of Debridement: Excisional debridement Anesthesia Used: 4% Lidocaine Solution Depth: Down to and including healthy tissue and in the subcutaneous layer Percentage of wound debrided: 100 Instrument Used: 5mm curette Tissue Removed: Slough and devitalized tissue Severity: Fat Layer Exposed Amount of bleeding with debridement: Mild Bleeding Controlled with: Pressure Patient tolerated procedure: Patient tolerated procedure well Additional Wound Wound debrided: Right buttock (lateral) Wound Grade/Stage: Stage III Type of Debridement: Excisional debridement Anesthesia Used: 4% Lidocaine Solution Depth: Down to and including healthy tissue and in the subcutaneous layer Percentage of wound debrided: 100 Instrument Used: 5mm curette Tissue Removed: Slough and devitalized tissue Severity: Fat Layer Exposed Amount of bleeding with debridement: Mild Bleeding Controlled with: Pressure Patient tolerated procedure: Patient tolerated procedure well Assessment/Plan Assessment/Plan (1) Decubitus ulcer of right buttock, stage 3: CODE(S): L89.313 - Pressure ulcer of right buttock, stage 3 (2) Decubitus ulcer of left buttock, stage 3: CODE(S): L89.323 - Pressure ulcer of left buttock, stage 3 (3) Sacral decubitus ulcer, stage III: CODE(S): L89.153 - Pressure ulcer of sacral region, stage 3 (4) Multiple sclerosis: CODE(S): G35 - Multiple sclerosis (5) Debility: CODE(S): R53.81 - Other malaise PLAN: Plan Debridement done as documented above, procedure was well-tolerated. Overall, stable ulcers. No significant drainage from the right ischium. Also denies any foul smell, chills, fever or feeling of unwell. Continue 10 minutes Dakins soak alternating with Vashe cleaning solution. Switch to Promogran to right and left hip ulcers. Continue Wound Vac at 150 mmHg to Right Ischial ulcer. Change every 48 hours by home health. Continue offloading and adequate protein intake. Prealbumin low, she was advised to increase Premier protein to 3 times daily. Follow-up in 2 weeks. Continue other chronic care/management. Her questions were answered and she was advised to call with any further questions or concerns. This note was generated with [employer] dictation software. It may contain incorrect words, spelling, and punctuation that were not noted in checking the note before signing.
[2023-03-12 09:35] VITALS: BP 127/67; PULSE 74; RESP 18; TEMP 36.3
--- NOTE | 2023-03-12 12:46 | PCM.WC.PN ---
History of Present Illness Date of Service: 03/12/23 Chief Complaint: Nonhealing sacral and bilateral buttock ulcers History of Wound: The patient is a 56-year-old who [facility] a chronic, nonhealing sacral and bilateral buttock ulcers. Chronic ulcers for which she has been seen here in the past. Last seen here over 2 months ago. History of multiple sclerosis with bilateral lower extremity paresis. Since her last visit, she states that she has been applying Medihoney and Aquacel to the ulcers daily. Also has somebody who comes in overnight and helps her change her position every 2 hours. Has a nurse that comes in from her multiple sclerosis clinic twice a week that helps with wound changes as well. Have remained clean since she had the colostomy placed. She states that her nutrition is also improved with a colostomy in place. She states that she has been taking Premier protein and Leobardo supplements. She feels well overall, no chills, fever, nausea or vomiting. Progress of Wound: No new concerns reported at this time. She states that she has not used her wound VAC to her right ischial ulcer in a few days due to increased pain when she sits. Has had to sit more because she is on IV antibiotics. Has been packing with iodoform. Feels well otherwise. No chills, fever or feeling of unwell. Objective Data Objective Data Vital Signs: Vital Signs Temp Pulse Resp BP O2 Del Method 97.4 F L 74 18 127/67 H Room Air 03/12/23 09:35 03/12/23 09:35 03/12/23 09:35 03/12/23 09:35 02/26/23 09:34 Oxygen Delivery Method Room Air Charges/Coding Procedures Integumentary 111xxx-113xx: [id number] Natalia subq tissue 20 sq cm/< Physical Exam Const alert and no apparent distress HEENT head/scalp atraumatic Resp normal respiratory effort Extremity normal to inspection Skin Wounds: wounds noted Neuro oriented x3 and CN's II-XII intact bilaterally Psych mental status grossly normal, thought process normal, cooperative and affect normal Appearance: grossly normal Attitude: calm Debridement Note Debridement Note Wound debrided: Right Buttock ( Ischial ) Wound Grade/Stage: Stage III Type of Debridement: Excisional debridement Anesthesia Used: 4% Lidocaine Solution Depth: Down to and including healthy tissue and in the subcutaneous layer Percentage of wound debrided: 100 Instrument Used: 5mm curette Tissue Removed: SLough and devitalized tissue Severity: Fat Layer Exposed Amount of bleeding with debridement: Mild Bleeding Controlled with: Pressure Patient tolerated procedure: Patient tolerated procedure well Post-Debridement Measurements and Additional Note: Post-Debridement Measurements/Treatment REA - Nurse 1 - General Ulcer Assessment Start: 02/26/23 09:33 Freq: Status: Active Protocol: REA.LOWEXT Activity Type Activity Date Activity User E-sign Co-sign Detail Recorded Client Recorded Date Recorded By Document 02/26/23 09:34 BMF Desktop 02/26/23 09:42 BMF Document 03/12/23 09:35 DL Desktop 03/12/23 09:45 DL 02/26/23 03/12/23 09:34 09:35 WC - Today's Visit Information Type of service Follow-up Visit Follow-up Visit (Physician/DRILLING ASSISTANT (Physician/DRILLING ASSISTANT ) ) Arrival Mode Wheelchair Wheelchair Transfer Assistance Other Manual,None Transfer Assist (Other) 3 x2 Accompanied by caregiver Patient Identification Verified (Name & Yes Yes ) Patient Requires Transmission-Based No Precautions Vital Signs Temperature (97.8 F-99.1 F) 97.8 F 97.4 F L Temperature Source Temporal Temporal Pulse Rate (60-100) 72 74 Pulse Location Monitor Monitor Respiratory Rate (12-18) 16 18 Respiratory rate source Observation Observation Oxygen Delivery Method Room Air Blood Pressure (90/60-120/80) 113/67 127/67 H Blood Pressure Mean (mm Hg) 82 87 Source Monitor Monitor Position Sitting Blood Pressure Location Right Arm History Since Last Visit- (Skip if this is Patient's initial visit) Have you changed medications since your No No last visit? Any new allergies or adverse reactions No No Had a fall/change in ADL's that may No No increase risk of falls Signs or symptoms of abuse and/or No No neglect since last visit Have you been in the hospital since your No No last visit? Has dressing in place as prescribed Yes Yes Has compression in place as prescribed N/A N/A Has offloadiing in place as prescribed N/A Yes Experienced any changes in pain level or No No management Left Footwear Regular Shoe Right Footwear Regular Shoe Pain Scale: 0-10 Numeric Is Patient Pain Free? Yes Yes REA - Nurse 1 - General Ulcer Measurement Start: 02/26/23 09:33 Freq: Status: Active Protocol: Activity Type Activity Date Activity User E-sign Co-sign Detail Recorded Client Recorded Date Recorded By Document 02/26/23 09:34 BMF Desktop 02/26/23 09:42 BMF Document 03/12/23 09:35 DL Desktop 03/12/23 09:45 DL 02/26/23 03/12/23 09:34 09:35 Wound Center Nurse 1 #7- R ISCHIUM -Combined with other wound No -Current Size (cm) - Length 0.7 1 -Current Size (cm) - Width 1 0.6 -Current Size (cm) - Depth 1.5 0.9 -Total Square Cm 0.7 0.6 -Undermining/Tunneling Yes -Undermining/Tunneling Starts (O'clock 12 12 ) -Undermining/Tunneling Ends (O'clock) 12 2 -Maximum Distance (cm) 3.2 2.7 -Exudate Amt Medium Small -Exudate Type Serosanguineous Sanguineous -Wound Margin Distinct, Distinct, Outline Outline Attached Attached -Granulation Amt Large (67-100%) Medium (34-66%) -Granulation Quality Red Red -Slough/Fibrin No -Necrosis Amt None Present (0 Medium (34-66%) %) -Necrotic Tissue Type Adherent Slough -Structure Exposed N/A -Texture (Cydney-wound Skin Appearance) Assessed, Scarring Scarring -Moisture (Cydney-wound Skin Appearance) Assessed, No Abnormality Maceration -Color (Cydney-wound Skin Appearance) Assessed No Abnormality -Temperature (Cydney-wound Skin No Abnormality No Abnormality Appearance) (Pt Warm) (Pt Warm) -Tenderness on Palpation (Cydney-wound No Skin Appearance) -Ulcer Cleansing Soap and Water Soap and Water -Foul Odor after Cleansing No No -Anesthetic Used 4% Lidocaine 5% Lidocaine Solution Gel #5- R HIP -Combined with other wound No -Current Size (cm) - Length 0.5 1 -Current Size (cm) - Width 0.8 1.1 -Current Size (cm) - Depth 0.5 0.3 -Total Square Cm 0.40 1.1 -Photo Taken Yes -Tunneling No -Undermining/Tunneling No -Circular Undermining No -Exudate Amt Medium Medium -Exudate Type Serosanguineous Serosanguineous -Wound Margin Distinct, Distinct, Outline Outline Attached Attached -Granulation Amt Large (67-100%) Small (1-33%) -Granulation Quality Red [place] -Slough/Fibrin Yes -Necrosis Amt Small (1-33%) Small (1-33%) -Necrotic Tissue Type Adherent Slough Adherent Slough -Structure Exposed N/A -Texture (Cydney-wound Skin Appearance) Assessed, Scarring Scarring -Moisture (Cydney-wound Skin Appearance) Assessed No Abnormality -Color (Cydney-wound Skin Appearance) Assessed No Abnormality -Temperature (Cydney-wound Skin No Abnormality No Abnormality Appearance) (Pt Warm) (Pt Warm) -Tenderness on Palpation (Cydney-wound No No Skin Appearance) -Ulcer Cleansing Soap and Water Soap and Water -Foul Odor after Cleansing No No -Anesthetic Used 4% Lidocaine 5% Lidocaine Solution Gel #4- L HIP -Combined with other wound No -Current Size (cm) - Length 1.7 2 -Current Size (cm) - Width 2.1 1.6 -Current Size (cm) - Depth 0.8 0.5 -Total Square Cm 3.57 3.2 -Photo Taken Yes -Tunneling No -Undermining/Tunneling No -Undermining/Tunneling Starts (O'clock 12 ) -Undermining/Tunneling Ends (O'clock) 1 -Maximum Distance (cm) 0.4 -Circular Undermining No -Exudate Amt Medium Medium -Exudate Type Serosanguineous Serosanguineous -Wound Margin Distinct, Thickened Outline Attached -Granulation Amt Medium (34-66%) Medium (34-66%) -Granulation Quality Red [place],Red -Slough/Fibrin Yes -Necrosis Amt Medium (34-66%) Medium (34-66%) -Necrotic Tissue Type Adherent Slough Adherent Slough -Structure Exposed N/A -Texture (Cydney-wound Skin Appearance) Assessed, Scarring Scarring -Moisture (Cydney-wound Skin Appearance) Assessed Maceration -Color (Cydney-wound Skin Appearance) Assessed No Abnormality -Temperature (Cydney-wound Skin No Abnormality No Abnormality Appearance) (Pt Warm) (Pt Warm) -Tenderness on Palpation (Cydney-wound No No Skin Appearance) -Ulcer Cleansing Soap and Water Soap and Water -Foul Odor after Cleansing No No -Anesthetic Used 4% Lidocaine 5% Lidocaine Solution Gel WC - Nurse 2 - General Ulcer CM Notes Start: 02/26/23 09:33 Freq: Status: Active Protocol: Activity Type Activity Date Activity User E-sign Co-sign Detail Recorded Client Recorded Date Recorded By Document 02/26/23 09:54 Laptop 02/26/23 10:06 Document 03/12/23 09:55 Desktop 03/12/23 10:09 02/26/23 03/12/23 09:54 09:55 Wound Center Nurse 2 #7- R ISCHIUM -Time 09:57 09:55 -Correct Patient Yes Yes -Correct Side, Site, Position Yes Yes -Correct Procedure Yes Yes -Procedure Performed Yes Yes -Type of Procedure Debridement Debridement -Clinical Debridement Subcutaneous Subcutaneous -Tissue Removed Subcutaneous Subcutaneous -Post Debridement (cm) - Length 0.7 1.0 -Post Debridement (cm) - Width 1.1 1.3 -Post Debridement (cm) - Depth 1.2 1.3 -Total Square (Post) (cm) 0.77 1.30 -Area of Debridement (cm) - Length 0.7 1.0 -Area of Debridement (cm) - Width 1.1 1.3 -Total Square (Area) (cm) 0.77 1.30 -Tunneling Yes Yes -Tunneling Position (O'clock) 12 12 -Tunneling Distance (cm) 4.0 4 -Undermining/Tunneling No No -Circular Undermining No No -Wound/Ulcer Outcome Not Healed Not Healed -Ulcer Cleansing Rinsed/ Rinsed/ Irrigated with Irrigated with Saline Saline -Foul Odor after Cleansing No No -Bioengineered Tissue No No -Bleeding Controlled with Pressure Pressure -Treatment Response Procedure Procedure Tolerated Well Tolerated Well -Offloading No -Assistive Device(s) Wheelchair -Pressure Reduction Wheelchair cushion, Mattress overlay -Debridement - Subq, 1st 20sq cm No Yes #5- R HIP -Time : 09:56 -Correct Patient Yes Yes -Correct Side, Site, Position Yes Yes -Correct Procedure Yes Yes -Procedure Performed Yes Yes -Type of Procedure Debridement Debridement -Clinical Debridement Subcutaneous Subcutaneous -Tissue Removed Subcutaneous Subcutaneous -Post Debridement (cm) - Length 0.3 0.4 -Post Debridement (cm) - Width 0.7 0.9 -Post Debridement (cm) - Depth 0.2 0.1 -Total Square (Post) (cm) 0.21 0.36 -Area of Debridement (cm) - Length 0.3 0.4 -Area of Debridement (cm) - Width 0.7 0.9 -Total Square (Area) (cm) 0.21 0.36 -Tunneling No No -Undermining/Tunneling No No -Circular Undermining No No -Wound/Ulcer Outcome Not Healed Not Healed -Ulcer Cleansing Rinsed/ Rinsed/ Irrigated with Irrigated with Saline Saline -Foul Odor after Cleansing No No -Bioengineered Tissue No No -Bleeding Controlled with Pressure Pressure -Treatment Response Procedure Procedure Tolerated Well Tolerated Well -Offloading No -Pressure Reduction Wheelchair cushion -Debridement - Subq, 1st 20sq cm No No #4- L HIP -Time 09:58 09:56 -Correct Patient Yes Yes -Correct Side, Site, Position Yes Yes -Correct Procedure Yes Yes -Procedure Performed Yes Yes -Type of Procedure Debridement Debridement -Clinical Debridement Subcutaneous Subcutaneous -Tissue Removed Subcutaneous Subcutaneous -Post Debridement (cm) - Length 1.8 1.5 -Post Debridement (cm) - Width 2.0 2.0 -Post Debridement (cm) - Depth 0.1 0.4 -Total Square (Post) (cm) 3.60 3.00 -Area of Debridement (cm) - Length 1.8 1.5 -Area of Debridement (cm) - Width 2.0 2.0 -Total Square (Area) (cm) 3.60 3.00 -Tunneling No No -Undermining/Tunneling No No -Circular Undermining No No -Wound/Ulcer Outcome Not Healed Not Healed -Ulcer Cleansing Rinsed/ Rinsed/ Irrigated with Irrigated with Saline Saline -Foul Odor after Cleansing No No -Bioengineered Tissue No No -Bleeding Controlled with Pressure Pressure -Treatment Response Procedure Procedure Tolerated Well Tolerated Well -Offloading No -Pressure Reduction Wheelchair cushion -Debridement - Subq, 1st 20sq cm Yes No Pain Scale: 0-10 Numeric Is Patient Pain Free? Yes Yes WC - Nurse 3 - General Ulcer D/C NN Start: 02/26/23 09:33 Freq: Status: Active Protocol: Activity Type Activity Date Activity User E-sign Co-sign Detail Recorded Client Recorded Date Recorded By Document 02/26/23 10:14 DL Desktop 02/26/23 10:19 DL Document 03/12/23 10:16 DL Desktop 03/12/23 10:18 DL 02/26/23 03/12/23 10:14 10:16 Wound Care Center Nurse 3 #7- R ISCHIUM -Ulcer Cleansing Rinsed/ Rinsed/ Irrigated with Irrigated with Saline Saline -Foul Odor after Cleansing No No -Negative Pressure Wound Therapy Continue -Setting (mmHg) 150 -Negative Pressure is Continuous -Primary Dressing Applied Mepilex Border, Nugauze, Iodoform 1/4in -NPWT Application Charge NPWT & Debridement (nc ) -Mepilex Border 1 -Nugauze, Iodoform 1/4in 1 #5- R HIP -Ulcer Cleansing Rinsed/ Rinsed/ Irrigated with Irrigated with Saline Saline -Foul Odor after Cleansing No No -Primary Dressing Applied Mepilex Border Mepilex Border, Promogran -Other Dressing promogran -Mepilex Border 1 1 -Promogran 1 #4- L HIP -Ulcer Cleansing Rinsed/ Rinsed/ Irrigated with Irrigated with Saline Saline -Foul Odor after Cleansing No No -Primary Dressing Applied Mepilex Border, Mepilex Border Promogran -Other Dressing promogran -Mepilex Border 1 1 -Promogran 1 Treatment Response Procedure Procedure Tolerated Well Tolerated Well Pain Scale: 0-10 Numeric Is Patient Pain Free? Yes Yes WC - Visit Discharge Discharge Condition Stable Stable Ambulatory Status Wheelchair Wheelchair Transportation Private Auto Private Auto Notes: dressing applied per Nik Del Angel today. Facility Type Home Health Home Health Orders Sent Yes Yes Additional Wound Wound debrided: Left buttock/Hip Wound Grade/Stage: Stage III Type of Debridement: Excisional debridement Anesthesia Used: 4% Lidocaine Solution Depth: Down to and including healthy tissue and in the subcutaneous layer Percentage of wound debrided: 100 Instrument Used: 5mm curette Tissue Removed: Slough and devitalized tissue Severity: Fat Layer Exposed Amount of bleeding with debridement: Mild Bleeding Controlled with: Pressure Patient tolerated procedure: Patient tolerated procedure well Additional Wound Wound debrided: Right buttock (lateral) Wound Grade/Stage: Stage III Type of Debridement: Excisional debridement Anesthesia Used: 4% Lidocaine Solution Depth: Down to and including healthy tissue and in the subcutaneous layer Percentage of wound debrided: 100 Instrument Used: 5mm curette Tissue Removed: Slough and devitalized tissue Severity: Fat Layer Exposed Amount of bleeding with debridement: Mild Bleeding Controlled with: Pressure Patient tolerated procedure: Patient tolerated procedure well Assessment/Plan Assessment/Plan (1) Decubitus ulcer of right buttock, stage 3: CODE(S): L89.313 - Pressure ulcer of right buttock, stage 3 (2) Decubitus ulcer of left buttock, stage 3: CODE(S): L89.323 - Pressure ulcer of left buttock, stage 3 (3) Sacral decubitus ulcer, stage III: CODE(S): L89.153 - Pressure ulcer of sacral region, stage 3 (4) Multiple sclerosis: CODE(S): G35 - Multiple sclerosis (5) Debility: CODE(S): R53.81 - Other malaise PLAN: Plan Debridement done as documented above, procedure was well-tolerated. As above, has been on a break from her wound VAC due to discomfort when she sits. Has had to sit more because she is currently on IV antibiotics/home infusion. Okay to take a VAC holiday. Has been utilizing iodoform packing at home, continue same. Reevaluate in a week. Continue 10 minutes Dakins soak alternating with Vashe cleaning solution. Continue Promogran to right and left hip ulcers. Continue offloading and adequate protein intake. Prealbumin low, she was advised to increase Premier protein to 3 times daily. Follow-up in 1 week. Continue other chronic care/management. Her questions were answered and she was advised to call with any further questions or concerns. This note was generated with Hub[employer] software. It may contain incorrect words, spelling, and punctuation that were not noted in checking the note before signing.
== END 2023-03-15 23:59 | disposition home or self-care (01) ==
LOC: WC 09:30
PROVIDERS: PCP Family Medicine; Referring Provider Nurse Practitioner Family; Visit Provider Internal Medicine
DX: L89.313 Pressure ulcer of right buttock, stage 3 (principal); L89.323 Pressure ulcer of left buttock, stage 3; L89.153 Pressure ulcer of sacral region, stage 3; Z93.3 Colostomy status; G35 Multiple sclerosis; R53.81 Other malaise
CPT/HCPCS: 11042

== ENCOUNTER → 2023-03-16 | Outpatient (CLI) | payer MEDICARE, SELFPAY ==
[2018-02-01 11:47] VITALS: BMI 15.0
--- OUTSIDE RECORDS SUMMARY | 2023-03-16 11:20 | XMS RPT_ITS | CCD ---
Author Name Unknown Address [address] [place] [address] Organization [facility] Care Team Providers Care Proof Tester Name Role Phone STEVEN Bartlett Michelle M Unavailable [phone] Preston Rojas Unavailable Now Nurse Unavailable Unavailable Butch De La Torre Unavailable Jessika Sanon LPN Unavailable Jessika Sanon LPN Unavailable PHYSICIAN, NOT RECORDED Primary Care Physician [facility] LIYA REID, DR AMARAL A Primary Care Physician ADDISON REID, DR ABLLARD Attending Unavailable LIYA REID, DR AMARAL A Primary Care Unavailab chance JAIME DO, DR BALLARD Attending Unavailable LIYA REID, DR AMARAL A Primary Care Unavailab chance JAIME DO, DR BALLARD Attending Unavailable LIYA REID, DR AMARAL A Primary Care Unavailab le Allergies Allergy Classification Reported Allergen(s) Allergy Type Date of Onset Reaction(s) Facility (7 sources) ciprofloxacin drug allergy 09-25-2016 [facility] Work Phone: Medications Completed/Discontinued Medications Medication Drug Class(es) Dates Sig (Normalized) Sig (Original) baclofen 10 mg oral tablet (12 sources) gamma-Aminobutyr ic Acid-ergic Agonist Start: 09-25-2016 End: 12-22-2016 BACLOFEN 10 MG TABS as directed BACLOFEN [id number] Butch CHENG nitrofurantoin, macrocrystals 25 mg / nitrofurantoin, monohydrate 75 mg oral capsule (8 sources) Start: 09-25-2016 End: 12-22-2016 MACROBID 100 MG CAPS 1 capsule twice daily NITROFURANTOIN MONOHYD MACRO [id number] Preston CHENG Problems Active Problems Problem Classification Problem Date Documented Da te Episodic/Chronic Chronic ulcer of skin (6 sources) Pressure ulcer of hip; Translations: [Pressure ulcer of right hip, stage 4] Chronic Multiple sclerosis (2 sources) Multiple sclerosis; Translations: [Multiple sclerosis] Chronic Other acquired deformities (2 sources) Contracture of hip joint; Translations: [Contracture, right hip] Chronic Other acquired deformities (2 sources) Contracture of knee joint; Translations: [Contracture, right knee] Chronic Past or Other Problems Problem Classification Problem Date Documented Da te Episodic/Chronic Urinary tract infections (7 sources) Urinary tract infectious disease; Translations: [Urinary tract infection, site not specified] Onset: 09-25-2016 09-25-2016 Episodic Results Test Name Value Interpretation Reference Range Facil ity Vital Signs Date Time Vital Sign Value Performing Clinician Faci lity 12-22-2016 16:32-0400 BMI (Body Mass Index) 18.79 kg/m2 Butch CHENG [facility] Work Phone: 12-22-2016 16:32-0400 Body Temperature 98.7 [degF] Butch CHENG [facility] Work Phone: 12-22-2016 16:32-0400 BP Diastolic 62 mm[Hg] Butch CHENG [facility] Work Phone: 12-22-2016 16:32-0400 BP Systolic 104 mm[Hg] Butch CHENG [facility] Work Phone: 12-22-2016 16:32-0400 Height 170.18 cm Butch CHENG [facility] Work Phone: 12-22-2016 16:32-0400 Pulse (Heart Rate) 71 /min Butch CHENG [facility] Work Phone: 12-22-2016 16:32-0400 Respiratory Rate 13 /min Butch CHENG [facility] Work Phone: 12-22-2016 16:32-0400 Weight 54.43 kg Butch CHENG [facility] Work Phone: 09-25-2016 12:25-0400 BMI (Body Mass Index) 18.79 kg/m2 Jessika Sanon LPN [facility] Work Phone: 09-25-2016 12:25-0400 Body Temperature 98.4 [degF] Jessika Sanon LPN [facility] Work Phone: 09-25-2016 12:25-0400 BP Diastolic 84 mm[Hg] Jessika Sanon LPN [facility] Work Phone: 09-25-2016 12:25-0400 BP Systolic 126 mm[Hg] Jessika Sanon LPN [facility] Work Phone: 09-25-2016 12:25-0400 Height 170.18 cm Jessika Sanon LPN [facility] Work Phone: 09-25-2016 12:25-0400 Pulse (Heart Rate) 74 /min Jessika Sanon LPN [facility] Work Phone: 09-25-2016 12:25-0400 Respiratory Rate 14 /min Jessika Sanon LPN [facility] Work Phone: 09-25-2016 12:25-0400 Weight 54.43 kg Jessika Sanon LPN [facility] Work Phone: Encounters Encounter Date Encounter Type Care Provider Facility Start: 02-27-2022 End: 02-28-[address] NELLIE JAIME DO Facility:A Start: 02-27-2022 End: 02-27-[address] NELLIE JAIME DO [facility] Start: 02-18-2022 End: 06-06-[address] NELLIE JAIME DO Facility:A Start: 02-18-2022 End: 06-06-[address] NELLIE JAIME DO [facility] Start: 04-17-2021 End: 06-27-2021 Wound Care MAXIMINO NATION MD [facility] Procedures Date Procedure Procedure Detail Performing Clinician Start: 12-22-2016 End: 12-22-2016 Urinalysis Butch CHENG Start: 12-22-2016 End: 12-22-2016 Urnls dip stick/tablet rgnt non-auto w/o micrscp Butch CHENG Work Phone: Start: 12-22-2016 End: 12-22-2016 Urinalysis nonauto w/o scope Butch CHENG Work Phone: Start: 09-25-2016 End: 09-25-2016 Urine test visual color cmprsn meths Preston CHENG Work Phone: Start: 09-25-2016 End: 09-25-2016 Urnls dip stick/tablet rgnt non-auto w/o micrscp Preston CHENG Work Phone: Start: 09-25-2016 End: 09-25-2016 Urinalysis Jessika Sanon GROUP ACCOUNT DIRECTOR Start: 09-25-2016 End: 09-25-2016 Urinalysis nonauto w/o scope Preston CHENG Work Phone: Start: 09-25-2016 End: 09-25-2016 Urine test visual color cmprsn meths Preston CHENG Work Phone: Start: 09-25-2016 End: 09-25-2016 Urine, test (choriogonadotropin presence) Preston CHENG Work Phone: Plan of Treatment Date Care Activity Detail Author Start: 12-22-2016 End: 12-22-2016 Appointment Appointment [facility] Work Phone: Start: 12-22-2016 End: 12-22-2016 Urinalysis complete panel - Urine *UAC- Urinalysis, Complete w/ Micro [facility] Work Phone: Start: 12-22-2016 End: 12-22-2016 Urinalysis complete panel - Urine *UAC- Urinalysis, Complete w/ Micro [facility] Work Phone: Start: 09-25-2016 End: 09-25-2016 Appointment Appointment [facility] Work Phone: Patient Education DYSURIA [facility] Work Phone: Payers Date Payer Category Payer Unknown [id number] 1965 Unknown [id number] 1965 Unknown [id number] 1965 Unknown [id number] Social History Date Type Detail Facility Tobacco smoking status [facility] Sex Assigned At Female [facility] Tobacco smoking status No Smoking Status Entered [facility] Evaluation + Plan note Note Date & Type Note Facility Evaluation + Plan note No data available for this section [facility] Hospital Discharge instructions Note Date & Type Note Facility Hospital Discharge instructions No data available for this section [facility] Progress note Note Date & Type Note Facility Progress note No data available for this section [facility] Summary Purpose Family History No Family History Records FoundNo Family History Records Found Advance Directives No Advanced Directives Records FoundNo Advanced Directives Records Found Additional Source Comments INFORMATION SOURCE (unrecogn ized section and content) DATE CREATED AUTHOR AUTHOR'S ORGANIZ ATION 06/07/2022 [facility] ([place]) Care Team (unrecognized sect ion and content) Personnel Name: PHYSICIAN, NOT RECORDED Care Team Personnel Name: MUNIR NICKERSON DO Member Role: Primary Care Physician Address: Address: [address] [place] [address] [place] [id number] Care Team Related Persons Name: JAMES OJEDA Care Team (unrecognized sect ion and content) Care Team Personnel Name: LIYA MUNIR Mccabe Member Role: Primary Care Physician Address: Address: [address] [place], [place] [address]Mary GUIDRY [address] Care Team Related Persons Name: JAMES OJEDA Care Team Personnel Name: MUNIR NICKERSON DO Member Role: Primary Care Physician Address: Address: [address] [place] [address] Care Team Related Persons Name: JAMES OJEDA FOR RECORDS PERTAINING TO PATIENTS WHO ARE OR HAVE BEEN ENROLLED IN A CHEMICAL DEPENDENCY/SUBSTANCEABUSE PROGRAM, SOME INFORMATION MAY BE OMITTED. This clinical summary was aggregated from multiple sources. Caution should be exercised in using it in the provision of clinical care. This summary normalizes information from multiple sources, and as a consequence, information in this document may materially change the coding, format and clinical context of patient data. In addition, data may be omitted in some cases. CLINICAL DECISIONS SHOULD BE BASED ON THE PRIMARY CLINICAL RECORDS. [employer] provides no warranty or guarantee of the accuracy or completeness of information in this document.
[2023-03-16 11:32] LABS: Mucous, Urine 0 SEEN /hpf (<or=2+)
[2023-03-16 11:36] LABS: Color, Urine Yellow (Yellow); Glucose, Dipstick Normal (Normal); Ketone-Dipstick Negative (Negative); Leukocyte Esterase-Dipstick 500 /ul (Negative); Nitrite-Dipstick Negative (Negative); Occult Blood-Urine 150 /ul (Negative); Protein-Dipstick 15 mg/dl (Negative); Urine Bilirubin Dipstick Negative (Negative); Urine Clarity Sl. Cloudy (Clear); Urine Urobilinogen Normal (Normal)
[2023-03-16 11:42] LABS: Bacteria 1+ /hpf (None Seen); Red Blood Cells-Urine 0-5 SEEN /hpf (0-5); Squamous Epithelial Cells - UA 0-5 SEEN /hpf (5-10); White Blood Cells 10-25 SEEN /hpf (0-5); Yeast-Urine 2+ /hpf (None Seen)
== END | disposition home or self-care (01) ==
LOC: LABSPEC 11:18
PROVIDERS: PCP Family Medicine; Visit Provider Internal Medicine
DX: N39.0 Urinary tract infection, site not specified (principal); Z79.2 Long term (current) use of antibiotics
CPT/HCPCS: 81001; 87086

== ENCOUNTER → 2023-03-20 | Outpatient (CLI) | payer MEDICARE, SELFPAY ==
[2018-02-01 11:47] VITALS: BMI 15.0
[2023-03-20 12:05] LABS: Color, Urine Yellow (Yellow); Glucose, Dipstick Normal (Normal); Ketone-Dipstick Negative (Negative); Leukocyte Esterase-Dipstick 500 /ul (Negative); Nitrite-Dipstick Negative (Negative); Occult Blood-Urine 250 /ul (Negative); Protein-Dipstick 30 mg/dl (Negative); Urine Bilirubin Dipstick Negative (Negative); Urine Clarity Sl. Cloudy (Clear); Urine Urobilinogen Normal (Normal)
--- OUTSIDE RECORDS SUMMARY | 2023-03-20 12:20 | XMS RPT_ITS | CCD ---
Author Name Unknown Address [address] [place] [address] Organization [facility] Care Team Providers Care Pbx Repairer Name Role Phone STEVEN Bartlett Michelle M Unavailable [phone] Preston Rojas Unavailable [phone] Now Nurse Unavailable Unavailable Butch De La Torre Unavailable Jessika Sanon LPN Unavailable Jessika Sanon LPN Unavailable PHYSICIAN, NOT RECORDED Primary Care Physician [facility] LIYA REID, DR AMARAL A Primary Care Physician ADDISON REID, DR BALLARD Attending Unavailable LIYA REID, DR AMARAL A Primary Care Unavailab chance JAIME DO, DR BALLARD Attending Unavailable LIYA REID, DR AMARAL A Primary Care Unavailab chance JAIME DO, DR BALLARD Attending Unavailable LIYA REID, DR AMARAL A Primary Care Unavailab le Allergies Allergy Classification Reported Allergen(s) Allergy Type Date of Onset Reaction(s) Facility (7 sources) ciprofloxacin drug allergy 09-25-2016 [facility] Work Phone: Medications Completed/Discontinued Medications Medication Drug Class(es) Dates Sig (Normalized) Sig (Original) baclofen 10 mg oral tablet (12 sources) gamma-Aminobutyr ic Acid-ergic Agonist Start: 09-25-2016 End: 12-22-2016 BACLOFEN 10 MG TABS as directed BACLOFEN [id number] Butch CHENG nitrofurantoin, macrocrystals 25 mg / nitrofurantoin, monohydrate 75 mg oral capsule (8 sources) Start: 09-25-2016 End: 12-22-2016 MACROBID 100 MG CAPS 1 capsule twice daily NITROFURANTOIN MONOHYD MACRO [id number] Preston CHENG Problems Active Problems Problem Classification [...] (Body Mass Index) 18.79 kg/m2 Butch CHENG [facility] Work Phone: 12-22-2016 16:32-0400 Body Temperature 98.7 [degF] Butch CHENG [facility] Work Phone: 12-22-2016 16:32-0400 BP Diastolic 62 mm[Hg] Butch CHENG [facility] Work Phone: 12-22-2016 16:32-0400 BP Systolic 104 mm[Hg] Butch CHENG [facility] Work Phone: 12-22-2016 16:32-0400 Height 170.18 cm Butch CHENG [facility] Work Phone: 12-22-2016 16:32-0400 Pulse (Heart Rate) 71 /min Butch CHENG [facility] Work Phone: 12-22-2016 16:32-0400 Respiratory Rate 13 /min Butch CHENG [facility] Work Phone: 12-22-2016 16:32-0400 Weight 54.43 kg Butch CHENG [facility] Work Phone: 09-25-2016 12:25-0400 BMI (Body Mass Index) 18.79 kg/m2 Jessika Sanon LPN [facility] Work Phone: 09-25-2016 12:25-0400 Body Temperature 98.4 [degF] Jessika Sanon LPN [facility] Work Phone: 09-25-2016 12:25-0400 BP Diastolic 84 mm[Hg] Jessika Sanon LPN [facility] Work Phone: 09-25-2016 12:25-0400 BP Systolic 126 mm[Hg] Jessika Sanon LPN [facility] Work Phone: 09-25-2016 12:25-0400 Height 170.18 cm Jessika Sanon LPN [facility] Work Phone: 09-25-2016 12:25-0400 Pulse (Heart Rate) 74 /min Jessika Sanon LPN [facility] Work Phone: 09-25-2016 12:25-0400 Respiratory Rate 14 /min Jessika Sanon LPN [facility] Work Phone: 09-25-2016 12:25-0400 Weight 54.43 kg Jessika Sanon LPN [facility] Work Phone: Encounters Encounter Date Encounter Type Care Provider Facility Start: 02-27-2022 End: 02-28-[address] NELLIE JAIME DO Facility:A Start: 02-27-2022 End: 02-27-[address] NELLIE JAIME DO [facility] Start: 02-18-2022 End: 06-06-[address] NELLIE JAIME DO Facility:[facility] Start: 02-18-2022 End: 06-06-[address] NELLIE JAIME DO [facility] Start: 04-17-2021 End: 06-27-2021 Wound Care MAXIMINO NATION MD [facility] Procedures Date Procedure Procedure Detail Performing Clinician [...] Start: 09-25-2016 End: 09-25-2016 Urinalysis Jessika Sanon CARDIOGRAPH OPERATOR Start: 09-25-2016 End: 09-25-2016 Urinalysis nonauto w/o scope Preston CHENG Work Phone: Start: 09-25-2016 End: 09-25-2016 Urine test visual color cmprsn meths Preston CHENG Work Phone: Start: 09-25-2016 End: 09-25-2016 Urine, test (choriogonadotropin presence) Preston CHENG Work Phone: Plan of Treatment Date Care Activity Detail Author Start: 12-22-2016 End: 12-22-2016 Appointment Appointment [facility] Work Phone: Start: 12-22-2016 End: 12-22-2016 Urinalysis complete panel - Urine *UAC- Urinalysis, Complete w/ Micro [facility] Work Phone: Start: 12-22-2016 End: 12-22-2016 Urinalysis complete panel - Urine *UAC- Urinalysis, Complete w/ Micro [facility] Work Phone: Start: 09-25-2016 End: 09-25-2016 Appointment Appointment [facility] Work Phone: Patient Education DYSURIA [facility] Work Phone: Payers Date Payer Category Payer Unknown [id number] 1965 Unknown [id number] 1965 Unknown [id number] 1965 Unknown [id number] Social History Date Type Detail Facility Tobacco smoking status [facility] Tobacco smoking status No Smoking Status Entered [facility] Evaluation + Plan note Note Date & Type Note Facility Evaluation + Plan note No data available for this section [facility] Hospital Discharge instructions Note Date & Type Note Facility Hospital Discharge instructions No data available for this section [facility] Progress note Note Date & Type Note Facility Progress note No data available for this section [facility] Summary Purpose Family History No Family History Records FoundNo Family History Records Found Advance Directives No Advanced Directives Records FoundNo Advanced Directives Records Found Additional Source Comments INFORMATION SOURCE (unrecogn ized section and content) DATE CREATED AUTHOR AUTHOR'S ORGANIZ ATION 06/07/2022 [facility] [place] Care Team (unrecognized sect ion and content) Personnel Name: PHYSICIAN, NOT RECORDED Care Team Personnel Name: MUNIR NICKERSON DO Member Role: Primary Care Physician Address: Address: [address] [place] [address] [place] [id number] Care Team Related Persons Name: JAMES OJEDA Care Team (unrecognized sect ion and content) Care Team Personnel Name: LIYA MUNIR Mccabe Member Role: Primary Care Physician Address: Address: [address] [place], [place] [address]Mary GUIDRY [address] Care Team Related Persons Name: JAMES OJEDA Care Team Personnel Name: MUNIR NICKERSON DO Member Role: Primary Care Physician Address: Address: [address] [place] [address] Care Team Related Persons Name: JAMES OJEDA [...] BE BASED ON THE PRIMARY CLINICAL RECORDS. [employer] provides no warranty or guarantee of the accuracy or completeness of information in this document.
== END | disposition home or self-care (01) ==
LOC: LAB 11:10
PROVIDERS: PCP Family Medicine; Referring Provider Family Medicine; Visit Provider Family Medicine
DX: N39.0 Urinary tract infection, site not specified (principal); B96.5 Pseudomonas (aeruginosa) (mallei) (pseudomallei) as the cause of diseases classified elsewhere
CPT/HCPCS: 81002; 87086; 87088

== ENCOUNTER 2023-04-02 09:30 | Outpatient (RCR) | payer MEDICARE, SELFPAY ==
[2018-02-01 11:47] VITALS: BMI 15.0
[2023-03-16 00:23] VITALS: BP 127/67; PULSE 74; RESP 18; TEMP 36.3
[2023-03-19 09:32] VITALS: BP 118/69; PULSE 66; RESP 20; TEMP 36.1
--- NOTE | 2023-03-19 10:52 | PCM.WC.PN ---
History of Present Illness Date of Service: 03/19/23 Chief Complaint: Nonhealing sacral and bilateral buttock ulcers History of Wound: The patient is a 56-year-old who [facility] to a chronic, nonhealing sacral and bilateral buttock ulcers. Chronic ulcers for which she has been seen here in the past. Last seen here over 2 months ago. History of multiple sclerosis with bilateral lower extremity paresis. Since her last visit, she states that she has been applying Medihoney and Aquacel to the ulcers daily. Also has somebody who comes in overnight and helps her change her position every 2 hours. Has a nurse that comes in from her multiple sclerosis clinic twice a week that helps with wound changes as well. Have remained clean since she had the colostomy placed. She states that her nutrition is also improved with a colostomy in place. She states that she has been taking Premier protein and Leobardo supplements. She feels well overall, no chills, fever, nausea or vomiting. Progress of Wound: No new concerns at this time. Has been on a VAC holiday, some drainage but not overwhelming. No significant worsening noted without the VAC. She has had less pain without the VAC. Increased drainage noted from the left hip with some surrounding maceration. Objective Data Objective Data Vital Signs: Vital Signs Temp Pulse Resp BP 96.9 F L 66 20 H 118/69 03/19/23 09:32 03/19/23 09:32 03/19/23 09:32 03/19/23 09:32 Charges/Coding Procedures Integumentary 111xxx-113xx: [id number] Natalia subq tissue 20 sq cm/< Physical Exam Const alert and no apparent distress HEENT head/scalp atraumatic Resp normal respiratory effort Extremity normal to inspection Skin Wounds: wounds noted Neuro oriented x3 and CN's II-XII intact bilaterally Psych mental status grossly normal, thought process normal, cooperative and affect normal Appearance: grossly normal Attitude: calm Debridement Note Debridement Note Wound debrided: Right Buttock ( Ischial ) Wound Grade/Stage: Stage III Type of Debridement: Excisional debridement Anesthesia Used: 4% Lidocaine Solution Depth: Down to and including healthy tissue and in the subcutaneous layer Percentage of wound debrided: 100 Instrument Used: 5mm curette Tissue Removed: SLough and devitalized tissue Severity: Fat Layer Exposed Amount of bleeding with debridement: Mild Bleeding Controlled with: Pressure Patient tolerated procedure: Patient tolerated procedure well Post-Debridement Measurements and Additional Note: Post-Debridement Measurements/Treatment REA - Nurse 1 - General Ulcer Assessment Start: 03/19/23 09:30 Freq: Status: Active Protocol: ASHLEY Activity Type Activity Date Activity User E-sign Co-sign Detail Recorded Client Recorded Date Recorded By Document 03/19/23 09:32 DL Desktop 03/19/23 09:46 DL 03/19/23 09:32 WC - Today's Visit Information Type of service Follow-up Visit (Physician/DIVISION TRAFFIC SUPERINTENDENT ) Arrival Mode Wheelchair Transfer Assistance None Patient Identification Verified (Name & Yes ) Patient Requires Transmission-Based No Precautions Vital Signs Temperature (97.8 F-99.1 F) 96.9 F L Temperature Source Temporal Pulse Rate (60-100) 66 Pulse Location Monitor Respiratory Rate (12-18) 20 H Respiratory rate source Observation Blood Pressure (90/60-120/80) 118/69 Blood Pressure Mean (mm Hg) 85 Source Monitor History Since Last Visit- (Skip if this is Patient's initial visit) Have you changed medications since your No last visit? Any new allergies or adverse reactions No Had a fall/change in ADL's that may No increase risk of falls Signs or symptoms of abuse and/or No neglect since last visit Have you been in the hospital since your No last visit? Has dressing in place as prescribed Yes Has compression in place as prescribed N/A Has offloadiing in place as prescribed Yes Experienced any changes in pain level or No management Pain Scale: 0-10 Numeric Is Patient Pain Free? Yes REA - Nurse 1 - General Ulcer Measurement Start: 03/19/23 09:30 Freq: Status: Active Protocol: Activity Type Activity Date Activity User E-sign Co-sign Detail Recorded Client Recorded Date Recorded By Document 03/19/23 09:32 DL Desktop 03/19/23 09:46 DL 03/19/23 09:32 Wound Center Nurse 1 #7- R ISCHIUM -Current Size (cm) - Length 0.1 -Current Size (cm) - Width 0.1 -Current Size (cm) - Depth 0.1 -Total Square Cm 0.01 -Photo Taken No -Undermining/Tunneling Starts (O'clock 12 ) -Undermining/Tunneling Ends (O'clock) 4 -Maximum Distance (cm) 3.4 -Exudate Amt Medium -Exudate Type Serosanguineous -Wound Margin Distinct, Outline Attached -Granulation Amt Medium (34-66%) -Granulation Quality Red -Necrosis Amt Medium (34-66%) -Necrotic Tissue Type Adherent Slough -Structure Exposed N/A -Texture (Cydney-wound Skin Appearance) Scarring -Moisture (Cydney-wound Skin Appearance) No Abnormality -Color (Cydney-wound Skin Appearance) No Abnormality -Temperature (Cydney-wound Skin No Abnormality Appearance) (Pt Warm) -Tenderness on Palpation (Cydney-wound No Skin Appearance) -Ulcer Cleansing Soap and Water -Foul Odor after Cleansing No -Anesthetic Used 5% Lidocaine Gel #5- R HIP -Current Size (cm) - Length 0.1 -Current Size (cm) - Width 0.1 -Current Size (cm) - Depth 0.1 -Total Square Cm 0.01 -Exudate Amt Medium -Exudate Type Serosanguineous -Wound Margin Thickened -Granulation Amt Medium (34-66%) -Granulation Quality Sula,Red -Necrosis Amt Medium (34-66%) -Necrotic Tissue Type Adherent Slough -Structure Exposed N/A -Texture (Cydney-wound Skin Appearance) Scarring -Moisture (Cydney-wound Skin Appearance) No Abnormality -Color (Cydney-wound Skin Appearance) No Abnormality -Temperature (Cydney-wound Skin No Abnormality Appearance) (Pt Warm) -Tenderness on Palpation (Cydney-wound No Skin Appearance) -Ulcer Cleansing Soap and Water -Foul Odor after Cleansing No -Anesthetic Used 4% Lidocaine Solution #4- L HIP -Current Size (cm) - Length 0.1 -Current Size (cm) - Width 0.1 -Current Size (cm) - Depth 0.1 -Total Square Cm 0.01 -Exudate Amt Medium -Exudate Type Serosanguineous -Wound Margin Distinct, Outline Attached -Granulation Amt Medium (34-66%) -Granulation Quality Red -Necrosis Amt Medium (34-66%) -Necrotic Tissue Type Adherent Slough -Structure Exposed N/A -Texture (Cydney-wound Skin Appearance) Scarring -Moisture (Cydney-wound Skin Appearance) No Abnormality -Color (Cydney-wound Skin Appearance) No Abnormality -Temperature (Cydney-wound Skin No Abnormality Appearance) (Pt Warm) -Tenderness on Palpation (Cydney-wound Yes Skin Appearance) -Anesthetic Used 4% Lidocaine Solution WC - Nurse 2 - General Ulcer CM Notes Start: 03/19/23 09:30 Freq: Status: Active Protocol: Activity Type Activity Date Activity User E-sign Co-sign Detail Recorded Client Recorded Date Recorded By Document 03/19/23 09:56 Desktop 03/19/23 10:17 GM 03/19/23 09:56 Wound Center Nurse 2 #7- R ISCHIUM -Time 10:00 -Correct Patient Yes -Correct Side, Site, Position Yes -Correct Procedure Yes -Procedure Performed Yes -Type of Procedure Debridement -Clinical Debridement Subcutaneous -Tissue Removed Subcutaneous -Post Debridement (cm) - Length 0.7 -Post Debridement (cm) - Width 0.8 -Post Debridement (cm) - Depth 1.3 -Total Square (Post) (cm) 0.56 -Area of Debridement (cm) - Length 0.7 -Area of Debridement (cm) - Width 0.8 -Total Square (Area) (cm) 0.56 -Tunneling Yes -Tunneling Position (O'clock) 12 -Tunneling Distance (cm) 3.5 -Undermining/Tunneling No -Circular Undermining No -Wound/Ulcer Outcome Not Healed -Ulcer Cleansing Rinsed/ Irrigated with Saline -Foul Odor after Cleansing No -Bioengineered Tissue No -Bleeding Controlled with Pressure -Treatment Response Procedure Tolerated Well -Assistive Device(s) Wheelchair -Pressure Reduction Wheelchair cushion, Specialty bed -Debridement - Subq, 1st 20sq cm No #5- R HIP -Time 10:01 -Correct Patient Yes -Correct Side, Site, Position Yes -Correct Procedure Yes -Procedure Performed Yes -Type of Procedure Debridement -Clinical Debridement Subcutaneous -Tissue Removed Subcutaneous -Post Debridement (cm) - Length 0.4 -Post Debridement (cm) - Width 0.9 -Post Debridement (cm) - Depth 0.2 -Total Square (Post) (cm) 0.36 -Area of Debridement (cm) - Length 0.4 -Area of Debridement (cm) - Width 0.9 -Total Square (Area) (cm) 0.36 -Tunneling No -Undermining/Tunneling No -Circular Undermining No -Wound/Ulcer Outcome Not Healed -Ulcer Cleansing Rinsed/ Irrigated with Saline -Foul Odor after Cleansing No -Bioengineered Tissue No -Bleeding Controlled with Pressure -Treatment Response Procedure Tolerated Well -Debridement - Subq, 1st 20sq cm No #4- L HIP -Time 10:01 -Correct Patient Yes -Correct Side, Site, Position Yes -Correct Procedure Yes -Procedure Performed Yes -Type of Procedure Debridement -Clinical Debridement Subcutaneous -Tissue Removed Subcutaneous -Post Debridement (cm) - Length 1.5 -Post Debridement (cm) - Width 2.0 -Post Debridement (cm) - Depth 0.5 -Total Square (Post) (cm) 3.00 -Area of Debridement (cm) - Length 1.5 -Area of Debridement (cm) - Width 2.0 -Total Square (Area) (cm) 3.00 -Tunneling No -Undermining/Tunneling No -Circular Undermining No -Wound/Ulcer Outcome Not Healed -Ulcer Cleansing Rinsed/ Irrigated with Saline -Foul Odor after Cleansing No -Bleeding Controlled with Pressure -Treatment Response Procedure Tolerated Well -Debridement - Subq, 1st 20sq cm Yes Pain Scale: 0-10 Numeric Is Patient Pain Free? Yes - Nurse 3 - General Ulcer D/C NN Start: 03/19/23 09:30 Freq: Status: Active Protocol: Activity Type Activity Date Activity User E-sign Co-sign Detail Recorded Client Recorded Date Recorded By Document 03/19/23 10:20 [facility] Desktop 03/19/23 10:22 [facility] 03/19/23 10:20 Wound Care Center Nurse 3 #7- R ISCHIUM -Ulcer Cleansing Rinsed/ Irrigated with Saline -Foul Odor after Cleansing No -Primary Dressing Applied Aquacel Rope, Mepilex Border -Other Dressing drsg per dl flexographic press helper -Aquacel Rope 1 -Mepilex Border 1 #5- R HIP -Ulcer Cleansing Rinsed/ Irrigated with Saline -Foul Odor after Cleansing No -Primary Dressing Applied Mepilex Border, Promogran -Other Dressing per dl flexographic press helper -Mepilex Border 1 -Promogran 1 #4- L HIP -Ulcer Cleansing Rinsed/ Irrigated with Saline -Foul Odor after Cleansing No -Primary Dressing Applied Mepilex Border, Promogran -Other Dressing per dl flexographic press helper -Mepilex Border 1 -Promogran 1 Treatment Response Procedure Tolerated Well Pain Scale: 0-10 Numeric Is Patient Pain Free? Yes - Visit Discharge Discharge Condition Stable Ambulatory Status Wheelchair Transportation Private Auto Accompanied by caregiver from [employer] Facility Type Home Health Additional Wound Wound debrided: Left buttock/Hip Wound Grade/Stage: Stage III Type of Debridement: Excisional debridement Anesthesia Used: 4% Lidocaine Solution Depth: Down to and including healthy tissue and in the subcutaneous layer Percentage of wound debrided: 100 Instrument Used: 5mm curette Tissue Removed: Slough and devitalized tissue Severity: Fat Layer Exposed Amount of bleeding with debridement: Mild Bleeding Controlled with: Pressure Patient tolerated procedure: Patient tolerated procedure well Additional Wound Wound debrided: Right buttock (lateral) Wound Grade/Stage: Stage III Type of Debridement: Excisional debridement Anesthesia Used: 4% Lidocaine Solution Depth: Down to and including healthy tissue and in the subcutaneous layer Percentage of wound debrided: 100 Instrument Used: 5mm curette Tissue Removed: Slough and devitalized tissue Severity: Fat Layer Exposed Amount of bleeding with debridement: Mild Bleeding Controlled with: Pressure Patient tolerated procedure: Patient tolerated procedure well Assessment/Plan Assessment/Plan (1) Decubitus ulcer of right buttock, stage 3: CODE(S): L89.313 - Pressure ulcer of right buttock, stage 3 (2) Decubitus ulcer of left buttock, stage 3: CODE(S): L89.323 - Pressure ulcer of left buttock, stage 3 (3) Sacral decubitus ulcer, stage III: CODE(S): L89.153 - Pressure ulcer of sacral region, stage 3 (4) Multiple sclerosis: CODE(S): G35 - Multiple sclerosis (5) Debility: CODE(S): R53.81 - Other malaise PLAN: Plan Debridement done as documented above, procedure was well-tolerated. DC VAC largely per patient preference. As above, no significant worsening without the VAC. Cultures taken from the left hip due to increased drainage/maceration. Continue 10 minutes Dakins soak alternating with Vashe cleaning solution. Continue Promogran to right and left hip ulcers. Aquacel rope to right ischial ulcer. Change daily to twice daily depending on drainage, she voiced understanding. Continue offloading and adequate protein intake. Prealbumin low, she was advised to increase Premier protein to 3 times daily. Follow-up in 1 week. Continue other chronic care/management. Her questions were answered and she was advised to call with any further questions or concerns. This note was generated with [employer] software. It may contain incorrect words, spelling, and punctuation that were not noted in checking the note before signing.
[2023-03-26 09:31] VITALS: BP 100/56; PULSE 64; RESP 16; TEMP 36.2
--- NOTE | 2023-03-26 10:32 | PCM.WC.PN ---
History of Present Illness Date of Service: 03/26/23 Chief Complaint: Nonhealing sacral and bilateral buttock ulcers History of Wound: The patient is a 56-year-old who [facility] to a chronic, nonhealing sacral and bilateral buttock ulcers. Chronic ulcers for which she has been seen here in the past. Last seen here over 2 months ago. History of multiple sclerosis with bilateral lower extremity paresis. Since her last visit, she states that she has been applying Medihoney and Aquacel to the ulcers daily. Also has somebody who comes in overnight and helps her change her position every 2 hours. Has a nurse that comes in from her multiple sclerosis clinic twice a week that helps with wound changes as well. Have remained clean since she had the colostomy placed. She states that her nutrition is also improved with a colostomy in place. She states that she has been taking Premier protein and Leobardo supplements. She feels well overall, no chills, fever, nausea or vomiting. Progress of Wound: Both hip ulcers with some improvement. Right ischial with mild worsening. She states that her caregiver has not been available due to being unwell and she has been sitting a lot more this week. Objective Data Objective Data Vital Signs: Vital Signs Temp Pulse Resp BP O2 Del Method 97.2 F L 64 16 100/56 L Room Air 03/26/23 09:31 03/26/23 09:31 03/26/23 09:31 03/26/23 09:31 03/26/23 09:31 Oxygen Delivery Method Room Air Lab / Micro Data Micro: Microbiology 03/19/23 10:15 Wound - Hip Gram Stain - Final 03/19/23 10:15 Wound - Hip Wound Culture - Final Corynebacterium striatum Pseudomonas aeruginosa 03/19/23 10:15 Wound - Hip Anaerobic Culture - Final No anaerobic bacteria isolated. Charges/Coding Procedures Integumentary 111xxx-113xx: [id number] Natalia subq tissue 20 sq cm/< Physical Exam Const alert and no apparent distress HEENT head/scalp atraumatic Resp normal respiratory effort Extremity normal to inspection Skin Wounds: wounds noted Neuro oriented x3 and CN's II-XII intact bilaterally Psych mental status grossly normal, thought process normal, cooperative and affect normal Appearance: grossly normal Attitude: calm Debridement Note Debridement Note Wound debrided: Right Buttock ( Ischial ) Wound Grade/Stage: Stage III Type of Debridement: Excisional debridement Anesthesia Used: 4% Lidocaine Solution Depth: Down to and including healthy tissue and in the subcutaneous layer Percentage of wound debrided: 100 Instrument Used: 5mm curette Tissue Removed: SLough and devitalized tissue Severity: Fat Layer Exposed Amount of bleeding with debridement: Mild Bleeding Controlled with: Pressure Patient tolerated procedure: Patient tolerated procedure well Post-Debridement Measurements and Additional Note: Post-Debridement Measurements/Treatment WC - Nurse 1 - General Ulcer Assessment Start: 03/19/23 09:30 Freq: Status: Active Protocol: ASHLEY Activity Type Activity Date Activity User E-sign Co-sign Detail Recorded Client Recorded Date Recorded By Document 03/19/23 09:32 DL Desktop 03/19/23 09:46 DL Document 03/26/23 09:31 BMF Desktop 03/26/23 09:38 BMF 03/19/23 03/26/23 09:32 09:31 - Today's Visit Information Type of service Follow-up Visit Follow-up Visit (Physician/SENIOR MANAGER (Physician/SENIOR MANAGER ) ) Arrival Mode Wheelchair Wheelchair Transfer Assistance None Other Transfer Assist (Other) 1 Accompanied by caregiver from [facility] transfers pt. Patient Identification Verified (Name & Yes Yes ) Patient Requires Transmission-Based No No Precautions Vital Signs Temperature (97.8 F-99.1 F) 96.9 F L 97.2 F L Temperature Source Temporal Temporal Pulse Rate (60-100) 66 64 Pulse Location Monitor Monitor Respiratory Rate (12-18) 20 H 16 Respiratory rate source Observation Observation Oxygen Delivery Method Room Air Blood Pressure (90/60-120/80) 118/69 100/56 L Blood Pressure Mean (mm Hg) 85 70 Source Monitor Monitor Position Sitting Blood Pressure Location Right Arm History Since Last Visit- (Skip if this is Patient's initial visit) Have you changed medications since your No No last visit? Any new allergies or adverse reactions No No Had a fall/change in ADL's that may No No increase risk of falls Signs or symptoms of abuse and/or No No neglect since last visit Have you been in the hospital since your No No last visit? Has dressing in place as prescribed Yes Yes Has compression in place as prescribed N/A N/A Has offloadiing in place as prescribed Yes N/A Experienced any changes in pain level or No No management Left Footwear Regular Shoe Right Footwear Regular Shoe Pain Scale: 0-10 Numeric Is Patient Pain Free? Yes Yes WC - Nurse 1 - General Ulcer Measurement Start: 03/19/23 09:30 Freq: Status: Active Protocol: Activity Type Activity Date Activity User E-sign Co-sign Detail Recorded Client Recorded Date Recorded By Document 03/19/23 09:32 DL Desktop 03/19/23 09:46 DL Document 03/26/23 09:31 BMF Desktop 03/26/23 09:38 BMF 03/19/23 03/26/23 09:32 09:31 Wound Center Nurse 1 #7- R ISCHIUM -Combined with other wound No -Current Size (cm) - Length 0.1 0.1 -Current Size (cm) - Width 0.1 0.1 -Current Size (cm) - Depth 0.1 0.1 -Total Square Cm 0.01 0.01 -Photo Taken No -Undermining/Tunneling Starts (O'clock 12 ) -Undermining/Tunneling Ends (O'clock) 4 -Maximum Distance (cm) 3.4 -Exudate Amt Medium Medium -Exudate Type Serosanguineous Serosanguineous -Wound Margin Distinct, Outline Attached -Granulation Amt Medium (34-66%) -Granulation Quality Red -Necrosis Amt Medium (34-66%) -Necrotic Tissue Type Adherent Slough -Structure Exposed N/A -Texture (Cydney-wound Skin Appearance) Scarring Scarring -Moisture (Cydney-wound Skin Appearance) No Abnormality Assessed -Color (Cydney-wound Skin Appearance) No Abnormality Assessed -Temperature (Cydney-wound Skin No Abnormality No Abnormality Appearance) (Pt Warm) (Pt Warm) -Tenderness on Palpation (Cydney-wound No No Skin Appearance) -Ulcer Cleansing Soap and Water Soap and Water -Foul Odor after Cleansing No No -Anesthetic Used 5% Lidocaine 4% Lidocaine Gel Solution #5- R HIP -Combined with other wound No -Current Size (cm) - Length 0.1 0.1 -Current Size (cm) - Width 0.1 0.1 -Current Size (cm) - Depth 0.1 0.1 -Total Square Cm 0.01 0.01 -Exudate Amt Medium Medium -Exudate Type Serosanguineous Serosanguineous -Wound Margin Thickened -Granulation Amt Medium (34-66%) -Granulation Quality [place],Red -Necrosis Amt Medium (34-66%) -Necrotic Tissue Type Adherent Slough -Structure Exposed N/A -Texture (Cydney-wound Skin Appearance) Scarring Assessed, Scarring -Moisture (Cydney-wound Skin Appearance) No Abnormality Assessed -Color (Cydney-wound Skin Appearance) No Abnormality Assessed -Temperature (Cydney-wound Skin No Abnormality No Abnormality Appearance) (Pt Warm) (Pt Warm) -Tenderness on Palpation (Cydney-wound No No Skin Appearance) -Ulcer Cleansing Soap and Water Soap and Water -Foul Odor after Cleansing No No -Anesthetic Used 4% Lidocaine Solution #4- L HIP -Combined with other wound No -Current Size (cm) - Length 0.1 0.1 -Current Size (cm) - Width 0.1 0.1 -Current Size (cm) - Depth 0.1 0.1 -Total Square Cm 0.01 0.01 -Exudate Amt Medium -Exudate Type Serosanguineous -Wound Margin Distinct, Outline Attached -Granulation Amt Medium (34-66%) -Granulation Quality Red -Necrosis Amt Medium (34-66%) -Necrotic Tissue Type Adherent Slough -Structure Exposed N/A -Texture (Cydney-wound Skin Appearance) Scarring Assessed, Scarring -Moisture (Cydney-wound Skin Appearance) No Abnormality Assessed -Color (Cydney-wound Skin Appearance) No Abnormality Assessed -Temperature (Cydney-wound Skin No Abnormality No Abnormality Appearance) (Pt Warm) (Pt Warm) -Tenderness on Palpation (Cydney-wound Yes No Skin Appearance) -Ulcer Cleansing Soap and Water -Foul Odor after Cleansing No -Anesthetic Used 4% Lidocaine 4% Lidocaine Solution Solution WC - Nurse 2 - General Ulcer CM Notes Start: 03/19/23 09:30 Freq: Status: Active Protocol: Activity Type Activity Date Activity User E-sign Co-sign Detail Recorded Client Recorded Date Recorded By Document 03/19/23 09:56 Desktop 03/19/23 10:17 Document 03/26/23 09:44 Desktop 03/26/23 10:04 GM 03/19/23 03/26/23 09:56 09:44 Wound Center Nurse 2 #7- R ISCHIUM -Time 10:00 09:45 -Correct Patient Yes Yes -Correct Side, Site, Position Yes Yes -Correct Procedure Yes Yes -Procedure Performed Yes Yes -Type of Procedure Debridement Debridement -Clinical Debridement Subcutaneous Subcutaneous -Tissue Removed Subcutaneous Subcutaneous -Post Debridement (cm) - Length 0.7 1.0 -Post Debridement (cm) - Width 0.8 1.0 -Post Debridement (cm) - Depth 1.3 1.2 -Total Square (Post) (cm) 0.56 1.00 -Area of Debridement (cm) - Length 0.7 1.0 -Area of Debridement (cm) - Width 0.8 1.0 -Total Square (Area) (cm) 0.56 1.00 -Tunneling Yes Yes -Tunneling Position (O'clock) 12 12 -Tunneling Distance (cm) 3.5 3.5 -Undermining/Tunneling No No -Circular Undermining No No -Wound/Ulcer Outcome Not Healed Not Healed -Ulcer Cleansing Rinsed/ Rinsed/ Irrigated with Irrigated with Saline Saline -Foul Odor after Cleansing No No -Bioengineered Tissue No No -Bleeding Controlled with Pressure Pressure -Treatment Response Procedure Procedure Tolerated Well Tolerated Well -Assistive Device(s) Wheelchair Wheelchair -Pressure Reduction Wheelchair Wheelchair cushion, cushion, Specialty bed Specialty bed -Debridement - Subq, 1st 20sq cm No Yes #5- R HIP -Time 10:01 09:45 -Correct Patient Yes Yes -Correct Side, Site, Position Yes Yes -Correct Procedure Yes Yes -Procedure Performed Yes Yes -Type of Procedure Debridement Debridement -Clinical Debridement Subcutaneous Subcutaneous -Tissue Removed Subcutaneous Subcutaneous -Post Debridement (cm) - Length 0.4 0.2 -Post Debridement (cm) - Width 0.9 0.8 -Post Debridement (cm) - Depth 0.2 0.1 -Total Square (Post) (cm) 0.36 0.16 -Area of Debridement (cm) - Length 0.4 0.2 -Area of Debridement (cm) - Width 0.9 0.8 -Total Square (Area) (cm) 0.36 0.16 -Tunneling No No -Undermining/Tunneling No No -Circular Undermining No No -Wound/Ulcer Outcome Not Healed Not Healed -Ulcer Cleansing Rinsed/ Rinsed/ Irrigated with Irrigated with Saline Saline -Foul Odor after Cleansing No No -Bioengineered Tissue No No -Bleeding Controlled with Pressure Pressure -Treatment Response Procedure Procedure Tolerated Well Tolerated Well -Debridement - Subq, 1st 20sq cm No No #4- L HIP -Time 10:01 09:45 -Correct Patient Yes Yes -Correct Side, Site, Position Yes Yes -Correct Procedure Yes Yes -Procedure Performed Yes Yes -Type of Procedure Debridement Debridement -Clinical Debridement Subcutaneous Subcutaneous -Tissue Removed Subcutaneous Subcutaneous -Post Debridement (cm) - Length 1.5 1.2 -Post Debridement (cm) - Width 2.0 1.9 -Post Debridement (cm) - Depth 0.5 0.3 -Total Square (Post) (cm) 3.00 2.28 -Area of Debridement (cm) - Length 1.5 1.2 -Area of Debridement (cm) - Width 2.0 1.9 -Total Square (Area) (cm) 3.00 2.28 -Tunneling No No -Undermining/Tunneling No No -Circular Undermining No No -Wound/Ulcer Outcome Not Healed Not Healed -Ulcer Cleansing Rinsed/ Rinsed/ Irrigated with Irrigated with Saline Saline -Foul Odor after Cleansing No No -Bioengineered Tissue No -Bleeding Controlled with Pressure Pressure -Treatment Response Procedure Procedure Tolerated Well Tolerated Well -Debridement - Subq, 1st 20sq cm Yes No Pain Scale: 0-10 Numeric Is Patient Pain Free? Yes Yes - Nurse 3 - General Ulcer D/C NN Start: 03/19/23 09:30 Freq: Status: Active Protocol: Activity Type Activity Date Activity User E-sign Co-sign Detail Recorded Client Recorded Date Recorded By Document 03/19/23 10:20 [facility] Desktop 03/19/23 10:22 [facility] Document 03/26/23 10:13 Desktop 03/26/23 10:17 DL 03/19/23 03/26/23 10:20 10:13 Wound Care Center Nurse 3 #7- R ISCHIUM -Ulcer Cleansing Rinsed/ Rinsed/ Irrigated with Irrigated with Saline Saline -Foul Odor after Cleansing No No -Primary Dressing Applied Aquacel Rope, Aquacel Extra, Mepilex Border Mepilex Border -Other Dressing drsg per dl hearing consultant -Aquacel Extra 1 -Aquacel Rope 1 -Mepilex Border 1 1 #5- R HIP -Ulcer Cleansing Rinsed/ Rinsed/ Irrigated with Irrigated with Saline Saline -Foul Odor after Cleansing No No -Primary Dressing Applied Mepilex Border, Mepilex Border, Promogran Promogran -Other Dressing per dl hearing consultant -Mepilex Border 1 1 -Promogran 1 1 #4- L HIP -Ulcer Cleansing Rinsed/ Rinsed/ Irrigated with Irrigated with Saline Saline -Foul Odor after Cleansing No No -Primary Dressing Applied Mepilex Border, Mepilex Border Promogran -Other Dressing per dl hearing consultant promogran -Mepilex Border 1 1 -Promogran 1 Treatment Response Procedure Procedure Tolerated Well Tolerated Well Pain Scale: 0-10 Numeric Is Patient Pain Free? Yes Yes WC - Visit Discharge Discharge Condition Stable Stable Ambulatory Status Wheelchair Wheelchair Transportation Private Auto Private Auto Accompanied by caregiver [facility] caregiver [facility] Facility Type Home Health Home Health Orders Sent Yes Additional Wound Wound debrided: Left buttock/Hip Wound Grade/Stage: Stage III Type of Debridement: Excisional debridement Anesthesia Used: 4% Lidocaine Solution Depth: Down to and including healthy tissue and in the subcutaneous layer Percentage of wound debrided: 100 Instrument Used: 5mm curette Tissue Removed: Slough and devitalized tissue Severity: Fat Layer Exposed Amount of bleeding with debridement: Mild Bleeding Controlled with: Pressure Patient tolerated procedure: Patient tolerated procedure well Additional Wound Wound debrided: Right buttock (lateral) Wound Grade/Stage: Stage III Type of Debridement: Excisional debridement Anesthesia Used: 4% Lidocaine Solution Depth: Down to and including healthy tissue and in the subcutaneous layer Percentage of wound debrided: 100 Instrument Used: 5mm curette Tissue Removed: Slough and devitalized tissue Severity: Fat Layer Exposed Amount of bleeding with debridement: Mild Bleeding Controlled with: Pressure Patient tolerated procedure: Patient tolerated procedure well Assessment/Plan Assessment/Plan (1) Decubitus ulcer of right buttock, stage 3: CODE(S): L89.313 - Pressure ulcer of right buttock, stage 3 (2) Decubitus ulcer of left buttock, stage 3: CODE(S): L89.323 - Pressure ulcer of left buttock, stage 3 (3) Sacral decubitus ulcer, stage III: CODE(S): L89.153 - Pressure ulcer of sacral region, stage 3 (4) Multiple sclerosis: CODE(S): G35 - Multiple sclerosis (5) Debility: CODE(S): R53.81 - Other malaise PLAN: Plan Debridement done as documented above, procedure was well-tolerated. Continue 10 minutes Dakins soak alternating with Vashe cleaning solution. Continue Promogran to right and left hip ulcers. Aquacel extra rope to right ischial ulcer. Change daily to twice daily depending on drainage, she voiced understanding. Continue offloading and adequate protein intake. Prealbumin low, she was advised to increase Premier protein to 3 times daily. Follow-up in 2 weeks Continue other chronic care/management. Her questions were answered and she was advised to call with any further questions or concerns. This note was generated with [employer] dictation software. It may contain incorrect words, spelling, and punctuation that were not noted in checking the note before signing.
[2023-04-02 09:55] VITALS: BP 93/53; PULSE 67; RESP 18; TEMP 35.9
--- NOTE | 2023-04-02 10:43 | PN.PCM_ITS ---
History of Present Illness Date of Service: 04/02/23 Chief Complaint: Nonhealing sacral and bilateral buttock ulcers History of Wound: The patient is a 56-year-old who [facility] a chronic, nonhealing sacral and bilateral buttock ulcers. Chronic ulcers for which she has been seen here in the past. Last seen here over 2 months ago. History of multiple sclerosis with bilateral lower extremity paresis. Since her last visit, she states that she has been applying Medihoney and Aquacel to the ulcers daily. Also has somebody who comes in overnight and helps her change her position every 2 hours. Has a nurse that comes in from her multiple sclerosis clinic twice a week that helps with wound changes as well. Have remained clean since she had the colostomy placed. She states that her nutrition is also improved with a colostomy in place. She states that she has been taking Premier protein and Leobardo supplements. She feels well overall, no chills, fever, nausea or vomiting. Progress of Wound: Overall improving. No new concerns reported. Doing well without the wound VAC so far. Objective Data Objective Data Vital Signs: Vital Signs Temp Pulse Resp BP O2 Del Method 96.6 F L 67 18 93/53 L Room Air 04/02/23 09:55 04/02/23 09:55 04/02/23 09:55 04/02/23 09:55 03/26/23 09:31 Oxygen Delivery Method Room Air Lab / Micro Data Micro: Microbiology 03/19/23 10:15 Wound - Hip Gram Stain - Final 03/19/23 10:15 Wound - Hip Wound Culture - Final Corynebacterium striatum Pseudomonas aeruginosa 03/19/23 10:15 Wound - Hip Anaerobic Culture - Final No anaerobic bacteria isolated. Charges/Coding Procedures Integumentary [id number]: [id number] Natalia subq tissue 20 sq cm/< Physical Exam Const alert and no apparent distress HEENT head/scalp atraumatic Resp normal respiratory effort Extremity normal to inspection Skin Wounds: wounds noted Neuro oriented x3 and CN's II-XII intact bilaterally Psych mental status grossly normal, thought process normal, cooperative and affect normal Appearance: grossly normal Attitude: calm Debridement Note Debridement Note Wound debrided: Right Buttock ( Ischial ) Wound Grade/Stage: Stage III Type of Debridement: Excisional debridement Anesthesia Used: 4% Lidocaine Solution Depth: Down to and including healthy tissue and in the subcutaneous layer Percentage of wound debrided: 100 Instrument Used: 5mm curette Tissue Removed: SLough and devitalized tissue Severity: Fat Layer Exposed Amount of bleeding with debridement: Mild Bleeding Controlled with: Pressure Patient tolerated procedure: Patient tolerated procedure well Post-Debridement Measurements and Additional Note: Post-Debridement Measurements/Treatment REA - Nurse 1 - General Ulcer Assessment Start: 03/19/23 09:30 Freq: Status: Active Protocol: ASHLEY Activity Type Activity Date Activity User E-sign Co-sign Detail Recorded Client Recorded Date Recorded By Document 03/19/23 09:32 DL Desktop 03/19/23 09:46 DL Document 03/26/23 09:31 BMF Desktop 03/26/23 09:38 BMF Document 04/02/23 09:55 RB Desktop 04/02/23 09:58 RB 03/19/23 03/26/23 04/02/23 09:32 09:31 09:55 REA - Today's Visit Information Type of service Follow-up Visit Follow-up Visit Follow-up Visit (Physician/UNIFORM DESIGNER (Physician/UNIFORM DESIGNER (Physician/UNIFORM DESIGNER ) ) ) Arrival Mode Wheelchair Wheelchair Wheelchair Transfer Assistance None Other None Transfer Assist (Other) 1 Accompanied by caregiver from [facility] transfers pt. Patient Identification Verified (Name & Yes Yes Yes ) Patient Requires Transmission-Based No No No Precautions Vital Signs Temperature (97.8 F-99.1 F) 96.9 F L 97.2 F L 96.6 F L Temperature Source Temporal Temporal Temporal Pulse Rate (60-100) 66 64 67 Pulse Location Monitor Monitor Monitor Respiratory Rate (12-18) 20 H 16 18 Respiratory rate source Observation Observation Observation Oxygen Delivery Method Room Air Blood Pressure (90/60-120/80) 118/69 100/56 L 93/53 L Blood Pressure Mean (mm Hg) 85 70 66 Source Monitor Monitor Monitor Position Sitting Semi-Fowlers Blood Pressure Location Right Arm Left Arm History Since Last Visit- (Skip if this is Patient's initial visit) Have you changed medications since your No No No last visit? Any new allergies or adverse reactions No No No Had a fall/change in ADL's that may No No No increase risk of falls Signs or symptoms of abuse and/or No No No neglect since last visit Have you been in the hospital since your No No No last visit? Has dressing in place as prescribed Yes Yes Yes Has compression in place as prescribed N/A N/A No Has offloadiing in place as prescribed Yes N/A Yes Experienced any changes in pain level or No No No management Left Footwear Regular Shoe Right Footwear Regular Shoe Pain Scale: 0-10 Numeric Is Patient Pain Free? Yes Yes Yes WC - Nurse 1 - General Ulcer Measurement Start: 03/19/23 09:30 Freq: Status: Active Protocol: Activity Type Activity Date Activity User E-sign Co-sign Detail Recorded Client Recorded Date Recorded By Document 03/19/23 09:32 DL Desktop 03/19/23 09:46 DL Document 03/26/23 09:31 BMF Desktop 03/26/23 09:38 BMF Document 04/02/23 09:55 RB Desktop 04/02/23 09:58 RB 03/19/23 03/26/23 04/02/23 09:32 09:31 09:55 Wound Center Nurse 1 #7- R ISCHIUM -Combined with other wound No No -Current Size (cm) - Length 0.1 0.1 0.1 -Current Size (cm) - Width 0.1 0.1 0.1 -Current Size (cm) - Depth 0.1 0.1 0.1 -Total Square Cm 0.01 0.01 0.01 -Photo Taken No -Tunneling No -Undermining/Tunneling No -Undermining/Tunneling Starts (O'clock 12 ) -Undermining/Tunneling Ends (O'clock) 4 -Maximum Distance (cm) 3.4 -Circular Undermining No -Exudate Amt Medium Medium Medium -Exudate Type Serosanguineous Serosanguineous Serosanguineous -Wound Margin Distinct, Thickened & Outline Rolled Under Attached -Granulation Amt Medium (34-66%) Medium (34-66%) -Granulation Quality [place] -Slough/Fibrin Yes -Necrosis Amt Medium (34-66%) Medium (34-66%) -Necrotic Tissue Type Adherent Slough Adherent Slough -Structure Exposed N/A N/A -Texture (Cydney-wound Skin Appearance) Scarring Scarring Assessed,Rash -Moisture (Cydney-wound Skin Appearance) No Abnormality Assessed Assessed -Color (Cydney-wound Skin Appearance) No Abnormality Assessed Assessed -Temperature (Cydney-wound Skin No Abnormality No Abnormality No Abnormality Appearance) (Pt Warm) (Pt Warm) (Pt Warm) -Tenderness on Palpation (Cydney-wound No No No Skin Appearance) -Ulcer Cleansing Soap and Water Soap and Water Wound Cleanser -Foul Odor after Cleansing No No No -Anesthetic Used 5% Lidocaine 4% Lidocaine 5% Lidocaine Gel Solution Gel #5- R HIP -Combined with other wound No No -Current Size (cm) - Length 0.1 0.1 0.1 -Current Size (cm) - Width 0.1 0.1 0.1 -Current Size (cm) - Depth 0.1 0.1 0.1 -Total Square Cm 0.01 0.01 0.01 -Photo Taken Yes -Tunneling No -Undermining/Tunneling No -Circular Undermining No -Exudate Amt Medium Medium Medium -Exudate Type Serosanguineous Serosanguineous Serosanguineous -Wound Margin Thickened Thickened & Rolled Under -Granulation Amt Medium (34-66%) Medium (34-66%) -Granulation Quality [place],Red [place] -Slough/Fibrin Yes -Necrosis Amt Medium (34-66%) Medium (34-66%) -Necrotic Tissue Type Adherent Slough Adherent Slough -Structure Exposed N/A N/A -Texture (Cydney-wound Skin Appearance) Scarring Assessed, Assessed, Scarring Scarring -Moisture (Cydney-wound Skin Appearance) No Abnormality Assessed Assessed -Color (Cydney-wound Skin Appearance) No Abnormality Assessed Assessed -Temperature (Cydney-wound Skin No Abnormality No Abnormality No Abnormality Appearance) (Pt Warm) (Pt Warm) (Pt Warm) -Tenderness on Palpation (Cydney-wound No No No Skin Appearance) -Ulcer Cleansing Soap and Water Soap and Water Wound Cleanser -Foul Odor after Cleansing No No No -Anesthetic Used 4% Lidocaine 5% Lidocaine Solution Gel #4- L HIP -Combined with other wound No No -Current Size (cm) - Length 0.1 0.1 0.1 -Current Size (cm) - Width 0.1 0.1 0.1 -Current Size (cm) - Depth 0.1 0.1 0.1 -Total Square Cm 0.01 0.01 0.01 -Photo Taken Yes -Tunneling No -Undermining/Tunneling No -Circular Undermining No -Exudate Amt Medium Medium -Exudate Type Serosanguineous Serosanguineous -Wound Margin Distinct, Thickened & Outline Rolled Under Attached -Granulation Amt Medium (34-66%) Medium (34-66%) -Granulation Quality [place] -Slough/Fibrin Yes -Necrosis Amt Medium (34-66%) Medium (34-66%) -Necrotic Tissue Type Adherent Slough Adherent Slough -Structure Exposed N/A N/A -Texture (Cydney-wound Skin Appearance) Scarring Assessed, Assessed, Scarring Scarring -Moisture (Cydney-wound Skin Appearance) No Abnormality Assessed Assessed -Color (Cydney-wound Skin Appearance) No Abnormality Assessed Assessed -Temperature (Cydney-wound Skin No Abnormality No Abnormality No Abnormality Appearance) (Pt Warm) (Pt Warm) (Pt Warm) -Tenderness on Palpation (Cydney-wound Yes No No Skin Appearance) -Ulcer Cleansing Soap and Water Wound Cleanser -Foul Odor after Cleansing No No -Anesthetic Used 4% Lidocaine 4% Lidocaine 5% Lidocaine Solution Solution Gel WC - Nurse 2 - General Ulcer CM Notes Start: 03/19/23 09:30 Freq: Status: Active Protocol: Activity Type Activity Date Activity User E-sign Co-sign Detail Recorded Client Recorded Date Recorded By Document 03/19/23 09:56 Desktop 03/19/23 10:17 Document 03/26/23 09:44 Desktop 03/26/23 10:04 GM Document 04/02/23 10:05 Desktop 04/02/23 10:19 03/19/23 03/26/23 04/02/23 09:56 09:44 10:05 Wound Center Nurse 2 #7- R ISCHIUM -Time 10:00 09:45 10:05 -Correct Patient Yes Yes Yes -Correct Side, Site, Position Yes Yes Yes -Correct Procedure Yes Yes Yes -Procedure Performed Yes Yes Yes -Type of Procedure Debridement Debridement Debridement -Clinical Debridement Subcutaneous Subcutaneous Subcutaneous -Tissue Removed Subcutaneous Subcutaneous Subcutaneous -Post Debridement (cm) - Length 0.7 1.0 1.0 -Post Debridement (cm) - Width 0.8 1.0 0.9 -Post Debridement (cm) - Depth 1.3 1.2 1.3 -Total Square (Post) (cm) 0.56 1.00 0.90 -Area of Debridement (cm) - Length 0.7 1.0 1.0 -Area of Debridement (cm) - Width 0.8 1.0 0.9 -Total Square (Area) (cm) 0.56 1.00 0.90 -Tunneling Yes Yes Yes -Tunneling Position (O'clock) 12 12 12 -Tunneling Distance (cm) 3.5 3.5 3.3 -Undermining/Tunneling No No No -Circular Undermining No No No -Wound/Ulcer Outcome Not Healed Not Healed Not Healed -Ulcer Cleansing Rinsed/ Rinsed/ Rinsed/ Irrigated with Irrigated with Irrigated with Saline Saline Saline -Foul Odor after Cleansing No No No -Bioengineered Tissue No No No -Bleeding Controlled with Pressure Pressure Pressure -Treatment Response Procedure Procedure Procedure Tolerated Well Tolerated Well Tolerated Well -Assistive Device(s) Wheelchair Wheelchair -Pressure Reduction Wheelchair Wheelchair cushion, cushion, Specialty bed Specialty bed -Debridement - Subq, 1st 20sq cm No Yes No #5- R HIP -Time 10:01 09:45 10:14 -Correct Patient Yes Yes Yes -Correct Side, Site, Position Yes Yes Yes -Correct Procedure Yes Yes Yes -Procedure Performed Yes Yes Yes -Type of Procedure Debridement Debridement Debridement -Clinical Debridement Subcutaneous Subcutaneous Subcutaneous -Tissue Removed Subcutaneous Subcutaneous Subcutaneous -Post Debridement (cm) - Length 0.4 0.2 0.1 -Post Debridement (cm) - Width 0.9 0.8 0.5 -Post Debridement (cm) - Depth 0.2 0.1 0.2 -Total Square (Post) (cm) 0.36 0.16 0.05 -Area of Debridement (cm) - Length 0.4 0.2 0.1 -Area of Debridement (cm) - Width 0.9 0.8 0.5 -Total Square (Area) (cm) 0.36 0.16 0.05 -Tunneling No No No -Undermining/Tunneling No No No -Circular Undermining No No No -Wound/Ulcer Outcome Not Healed Not Healed Not Healed -Ulcer Cleansing Rinsed/ Rinsed/ Rinsed/ Irrigated with Irrigated with Irrigated with Saline Saline Saline -Foul Odor after Cleansing No No No -Bioengineered Tissue No No No -Bleeding Controlled with Pressure Pressure Pressure -Treatment Response Procedure Procedure Procedure Tolerated Well Tolerated Well Tolerated Well -Debridement - Subq, 1st 20sq cm No No No #4- L HIP -Time 10:01 09:45 10:15 -Correct Patient Yes Yes Yes -Correct Side, Site, Position Yes Yes Yes -Correct Procedure Yes Yes Yes -Procedure Performed Yes Yes Yes -Type of Procedure Debridement Debridement Debridement -Clinical Debridement Subcutaneous Subcutaneous Subcutaneous -Tissue Removed Subcutaneous Subcutaneous Subcutaneous -Post Debridement (cm) - Length 1.5 1.2 1.3 -Post Debridement (cm) - Width 2.0 1.9 1.7 -Post Debridement (cm) - Depth 0.5 0.3 0.2 -Total Square (Post) (cm) 3.00 2.28 2.21 -Area of Debridement (cm) - Length 1.5 1.2 1.3 -Area of Debridement (cm) - Width 2.0 1.9 1.7 -Total Square (Area) (cm) 3.00 2.28 2.21 -Tunneling No No No -Undermining/Tunneling No No No -Circular Undermining No No No -Wound/Ulcer Outcome Not Healed Not Healed Not Healed -Ulcer Cleansing Rinsed/ Rinsed/ Rinsed/ Irrigated with Irrigated with Irrigated with Saline Saline Saline -Foul Odor after Cleansing No No No -Bioengineered Tissue No No -Bleeding Controlled with Pressure Pressure Pressure -Treatment Response Procedure Procedure Procedure Tolerated Well Tolerated Well Tolerated Well -Debridement - Subq, 1st 20sq cm Yes No Yes Pain Scale: 0-10 Numeric Is Patient Pain Free? Yes Yes Yes WC - Nurse 3 - General Ulcer D/C NN Start: 03/19/23 09:30 Freq: Status: Active Protocol: Activity Type Activity Date Activity User E-sign Co-sign Detail Recorded Client Recorded Date Recorded By Document 03/19/23 10:20 [facility] Desktop 03/19/23 10:22 BMF Document 03/26/23 10:13 DL Desktop 03/26/23 10:17 DL Document 04/02/23 10:22 RB Desktop 04/02/23 10:25 RB 03/19/23 03/26/23 04/02/23 10:20 10:13 10:22 Wound Care Center Nurse 3 #7- R ISCHIUM -Ulcer Cleansing Rinsed/ Rinsed/ Irrigated with Irrigated with Saline Saline -Foul Odor after Cleansing No No -Primary Dressing Applied Aquacel Rope, Aquacel Extra, Aquacel Extra, Mepilex Border Mepilex Border Mepilex Border -Other Dressing drsg per dl surgical instrument repair specialist -Aquacel Extra 1 1 -Aquacel Rope 1 -Mepilex Border 1 1 1 #5- R HIP -Ulcer Cleansing Rinsed/ Rinsed/ Irrigated with Irrigated with Saline Saline -Foul Odor after Cleansing No No -Primary Dressing Applied Mepilex Border, Mepilex Border, Mepilex Border, Promogran Promogran Promogran -Other Dressing per dl surgical instrument repair specialist -Mepilex Border 1 1 1 -Promogran 1 1 1 #4- L HIP -Ulcer Cleansing Rinsed/ Rinsed/ Irrigated with Irrigated with Saline Saline -Foul Odor after Cleansing No No -Primary Dressing Applied Mepilex Border, Mepilex Border Mepilex Border, Promogran Promogran -Other Dressing per dl surgical instrument repair specialist promogran -Mepilex Border 1 1 1 -Promogran 1 1 Treatment Response Procedure Procedure Procedure Tolerated Well Tolerated Well Tolerated Well Pain Scale: 0-10 Numeric Is Patient Pain Free? Yes Yes Yes Teaching: Wound Center Offload: Mattress, Cushion, Reposition -Person Taught Patient,Primary Caregiver -Teaching Method Discussion, Demonstration -Response to teaching Return demonstration WC - Visit Discharge Discharge Condition Stable Stable Stable Ambulatory Status Wheelchair Wheelchair Wheelchair Transportation Private Auto Private Auto Private Auto Accompanied by caregiver from caregiver idalia Medication Reconcilliation completed & No provided to patient/care provider Clinical Summary of Care Provided Yes Facility Type Home Health Home Health Orders Sent Yes Additional Wound Wound debrided: Left buttock/Hip Wound Grade/Stage: Stage III Type of Debridement: Excisional debridement Anesthesia Used: 4% Lidocaine Solution Depth: Down to and including healthy tissue and in the subcutaneous layer Percentage of wound debrided: 100 Instrument Used: 5mm curette Tissue Removed: Slough and devitalized tissue Severity: Fat Layer Exposed Amount of bleeding with debridement: Mild Bleeding Controlled with: Pressure Patient tolerated procedure: Patient tolerated procedure well Additional Wound Wound debrided: Right buttock (lateral) Wound Grade/Stage: Stage III Type of Debridement: Excisional debridement Anesthesia Used: 4% Lidocaine Solution Depth: Down to and including healthy tissue and in the subcutaneous layer Percentage of wound debrided: 100 Instrument Used: 5mm curette Tissue Removed: Slough and devitalized tissue Severity: Fat Layer Exposed Amount of bleeding with debridement: Mild Bleeding Controlled with: Pressure Patient tolerated procedure: Patient tolerated procedure well Assessment/Plan Assessment/Plan (1) Decubitus ulcer of right buttock, stage 3: CODE(S): L89.313 - Pressure ulcer of right buttock, stage 3 (2) Decubitus ulcer of left buttock, stage 3: CODE(S): L89.323 - Pressure ulcer of left buttock, stage 3 (3) Sacral decubitus ulcer, stage III: CODE(S): L89.153 - Pressure ulcer of sacral region, stage 3 (4) Multiple sclerosis: CODE(S): G35 - Multiple sclerosis (5) Debility: CODE(S): R53.81 - Other malaise PLAN: Plan Debridement done as documented above, procedure was well-tolerated. Continue 10 minutes Dakins soak alternating with Vashe cleaning solution. Soak right ischial ulcer for longer with Dakin's. Continue Promogran to right and left hip ulcers. Aquacel extra rope to right ischial ulcer. Change daily to twice daily depending on drainage, she voiced understanding. Continue offloading and adequate protein intake. Prealbumin low, she was advised to increase Premier protein to 3 times daily. Follow-up in 2 weeks Continue other chronic care/management. Her questions were answered and she was advised to call with any further questions or concerns. This note was generated with [employer] software. It may contain incorrect words, spelling, and punctuation that were not noted in checking the note before signing.
== END 2023-04-15 23:59 | disposition home or self-care (01) ==
LOC: WC 09:30
PROVIDERS: PCP Family Medicine; Referring Provider Nurse Practitioner Family; Visit Provider Internal Medicine
DX: L89.313 Pressure ulcer of right buttock, stage 3 (principal); L89.323 Pressure ulcer of left buttock, stage 3; L89.153 Pressure ulcer of sacral region, stage 3; Z93.3 Colostomy status; G35 Multiple sclerosis; Z79.899 Other long term (current) drug therapy
CPT/HCPCS: 11042; 36415; 80053; 85025; 87070; 87075; 87077; 87186; 87205

== ENCOUNTER 2023-04-05 09:31 | Emergency (ER) | payer MEDICARE, SELFPAY ==
[2018-02-01 11:47] VITALS: BMI 15.0
[2023-04-05 09:32] VITALS: BP 92/65; PULSE 108; RESP 16; TEMP 36.9; O2SAT 93
--- NOTE | 2023-04-05 09:52 | RAD_ITS ---
EXAM: XR CHEST, 1 VIEW CLINICAL INDICATION: dyspnea TECHNIQUE: Frontal view of the chest. COMPARISON: XR Chest dated 03/11/2022 FINDINGS: LUNGS AND PLEURAL SPACES: Hyperinflation suggesting emphysema. No airspace opacification of the lungs. No pleural effusion or pneumothorax. HEART: Normal heart size. MEDIASTINUM: No mediastinal or hilar mass. BONES/JOINTS: No acute abnormality. SOFT TISSUES: Surgical changes of left mastectomy and a node dissection. RAD/Chest 1 View (Portable) IMPRESSION: No acute cardiopulmonary abnormality. COPD. Electronically Signed: Robert Ceballos MD at 11:25 EST ,
--- NOTE | 2023-04-05 09:54 | EX.ED.DYSGE1 ---
HPI History of Present Illness Chief Complaint: Fever Detail of Chief Complaint: Fever Informant: patient Narrative Narrative: Patient presents to the emergency department with caregiver with complaint of fever that started yesterday. Patient has history of MS. Patient recently treated for UTI that grew Pseudomonas and was treated with IV cefepime for 10 days. Patient also with history of decubitus ulcers for which she recently was treated with antibiotics. She saw wound care 4 days ago and was told the wounds looked good. Caregiver and patient noted a little foul odor to the wound over the ischium 2 days ago. Patient complaining of some right arm weakness for 3 days and states that is typical whenever she gets an infection because it affects her MS. Patient also recently exposed to caregiver who recently had COVID. Patient complains of some shortness of breath but no significant cough or sore throat. [facility] Medical History (Updated 04/05/23 @ 12:[address] America Garcia, ) Breast cancer Breast cancer Breast cancer, left Cancer Chronic indwelling Pandey catheter Closed fracture of right distal femur Cystitis Debility Decubitus ulcer of left buttock, stage 3 Decubitus ulcer of right buttock, stage 3 Disproportion of reconstructed breast Estrogen receptor positive status [ER+] Femur fracture, right Former smoker History of breast cancer History of edema History of left breast cancer Marijuana use Multiple sclerosis Multiple sclerosis Multiple sclerosis Muscle spasm Neurogenic bladder PONV (postoperative nausea and vomiting) Post-menopausal Pressure injury of left hip, stage 4 Pressure injury of left hip, unstageable Pressure injury of right hip, stage 2 Pressure injury of right hip, stage 4 Pressure injury of sacral region, stage 4 Pressure ulcer of right ischium Sacral decubitus ulcer, stage III Screening for malignant neoplasm of breast Seasonal allergies Suprapubic catheter Urinary retention Uses wheelchair Weakness Wears glasses Home Medications cholecalciferol (vitamin D3) 250 mcg (10,000 unit) capsule 5,000 unit PO DAILY supplement 10/09/17 [History Last Taken 06/29/22] dalfampridine 10 mg tablet,extended release,12 hr 10 mg PO BID MS 03/24/18 [History Last Taken 06/29/22] ascorbic acid (vitamin C) 1,000 mg chewable tablet 1 g PO DAILY Check with primary doctor 07/12/21 [History Last Taken 06/29/22] zinc 50 mg capsule 50 mg PO DAILY Check with primary doctor 07/12/21 [History Last Taken 06/29/22] natalizumab 300 mg/15 mL intravenous solution (Tysabri) 300 mg IV QMONTH 10/02/22 [History Last Taken Unknown] baclofen 10 mg tablet 20 mg PO Q4H 11/06/22 [History Last Taken 11/13/22] methenamine hippurate 1 gram tablet 1 g PO BID 04/02/23 [History Last Taken Unknown] Allergy/AdvReac Type Severity Reaction Status Date / Time clavulanic acid AdvReac Unknown Diarrhea Verified 04/05/23 09:33 [From Augmentin] Family History Aunt Breast cancer Mother Diabetes Surgical History h/o tonsillectomy History of bilateral oophorectomy History of colostomy S/P left mastectomy (~10/12/17) Social History household members: spouse Smoking Status: Former smoker alcohol intake: never ROS ROS ED Review of Systems ROS Unobtainable: other Constitutional Constitutional ED: Reports lethargy; Denies chills, fever(s), sweats or weight loss Eyes Eyes: Denies blurry vision, change in vision or diplopia ENT ENT ED: Denies rhinorrhea or sore throat Cardiovascular Cardiovascular: Denies chest pain, orthopnea or racing heartbeat Respiratory/Chest Respiratory/Chest: Reports dyspnea; Denies cough, dyspnea on exertion, orthopnea or sputum Gastrointestinal Gastrointestinal: Denies abdominal pain, diarrhea, nausea or vomiting Genitourinary Genitourinary ED: Denies dysuria, hematuria or urinary frequency Musculoskeletal Musculoskeletal: Denies arthralgias, back pain, myalgias or neck pain Integumentary Denies abscess, Abrasions or rash Neurologic Neurologic: Reports weakness; Denies headache(s) Psychiatric Psychiatric: Denies anxiety, depression or suicidal thoughts Endocrine Endocrinology: Denies polydipsia, polyphagia or polyuria Hematologic/Lymphatic Hematologic/Lymphatic: Denies easy bleeding, easy bruising or lymphadenopathy Allergic/Immunologic Allergic/Immunologic ED: Denies mouth swelling, tongue swelling or urticaria EXAM Physical Exam Const Vital Signs: 04/05/23 09:32 04/05/23 10:54 04/05/23 11:43 Temperature 98.5 F Temperature Source Temporal Pulse Rate 108 H 74 74 Respiratory Rate 16 16 16 Blood Pressure 92/65 96/75 115/64 Blood Pressure Mean 74 82 81 Pulse Ox 93 98 98 Oxygen Delivery Method Room Air Room Air Room Air 04/05/23 13:14 04/05/23 14:37 Temperature 98.6 F Temperature Source Oral Pulse Rate 80 86 Respiratory Rate 15 16 Blood Pressure 114/64 121/63 H Blood Pressure Mean 80 82 Pulse Ox 98 97 Oxygen Delivery Method Room Air Room Air Positive well nourished and well developed General Appearance ED: well developed and NAD HEENT Reports TM's clear and moist mucous membranes normocephalic and atraumatic; Negative for trauma or tenderness Tympanic Membrane ED: Yes TM's clear Eyes PERRL and EOMs intact bilaterally General Eye ED: Negative for pale conjunctiva or scleral icterus Neck no lymphadenopathy, supple and no JVD General: Negative for tenderness Chest Wall inspection of chest normal and palpation of chest normal Chest: Negative for tenderness Resp normal respiratory effort and clear to auscultation bilaterally Effort and Inspection: Negative for respiratory distress or pain with movement Auscultation: Negative for rhonchi, wheezes or diminished lung sounds Cardio regular rate, regular rhythm, S1 normal heart sound, S2 normal heart sound and no murmurs Peripheral Pulses: pulses 2+ throughout GI normal to inspection, nondistended, normoactive bowel sounds, soft to palpation, non-tender, non-distended and no masses GI Narrative: Patient does have noted colostomy to the lower abdomen. Back/Spine no CVA tenderness and no thoracic nor lumbar tenderness Back/Spine Narrative: Patient has decubitus ulcers over the ischium and I was able to take the dressing off to evaluate. The ulcer was packed. There was a foul odor noted. But no significant drainage or significant erythema. Extremity normal to inspection General Extremety ED: Negative for edema General Extremity: Negative for edema Neuro oriented x3, CN's II-XII intact bilaterally, no sensory deficits noted and gait normal Sensorium / Orientation: awake, alert, oriented to person, oriented to place and oriented to time Motor Exam: strength 5/5 throughout and strength abnormal Psych mental status grossly normal Skin no rashes or lesions noted and no wounds MDM MDM MDM Narrative Medical decision making narrative: Patient with low-grade fever and generalized weakness. History of decubitus ulcers and now foul smell x 2 days. Recently treated for Pseudomonas UTI. IV line established. CBC with differential obtained for white count of 13.3 with hemoglobin 13 and platelet count of 192. Chemistries unremarkable. Lactate normal at 1.3. LFTs unremarkable. Urinalysis was unremarkable. Patient started on Zosyn as urinalysis was unremarkable. Concerned about infection to the decubitus ulcer. Discussed case with hospitalist as well as general surgeon on-call who will also evaluate patient. Patient will be admitted for IV antibiotics as well as fluids. Blood pressure soft in the 90s however last blood pressure 115/64. Patient states her blood pressure normally run in the 90s but can be as high as 120s. I was asked to transfer patient to tertiary care facility after patient was evaluated by our surgeon here Dr. Lew. I discussed case with [facility] and patient was excepted by to medical floor. I was asked to give patient a dose of vancomycin IV. Lab Data Attestation: I reviewed the patient's lab results. Labs: Laboratory Results - last 24 hr 04/05/23 04/05/23 04/05/23 10:00 10:30 10:58 WBC 13.3 H RBC 4.18 L Hgb 13.0 Hct 38.8 MCV 92.8 MCH 31.1 MCHC 33.5 RDW Std Deviation 50.8 H RDW Coeff of Raisa 14.8 H Plt Count 192 MPV 10.5 Immature Gran % (Auto) 0.400 Neut % (Auto) 83.3 H Lymph % (Auto) 5.1 L [place] % (Auto) 8.8 Eos % (Auto) 2.2 Baso % (Auto) 0.2 Absolute Neuts (auto) 11.1 H Absolute Lymphs (auto) 0.68 L Nucleated RBC % 0.2 Sodium 134 L Potassium 3.7 Chloride 107 Carbon Dioxide 20.0 L Anion Gap 7 BUN 16 Creatinine 0.41 L Estim Creat Clear Calc 127.62 Est GFR (MDRD) Af Amer 207 Est GFR (MDRD) Non-Af 171 BUN/Creatinine Ratio 39.3 H Glucose 107 H Lactic Acid 1.3 Calcium 9.4 Total Bilirubin 0.90 AST 24 ALT 31 Alkaline Phosphatase 86 Total Protein 6.6 Albumin 2.8 L Globulin 3.8 Albumin/Globulin Ratio 0.7 L Urine Color Yellow Urine Clarity Clear Urine pH 6.5 Ur Specific [place] 1.010 Urine Protein 30 H Urine Glucose (UA) Normal Urine Ketones 50 H Urine Occult Blood 250 H Urine Nitrite Negative Urine Bilirubin Negative Urine Urobilinogen Normal Ur Leukocyte Esterase 100 H Urine RBC 0-5 SEEN Urine WBC 0-5 SEEN Ur Squamous Epith Cells 0-5 SEEN Urine Bacteria RARE Urine Mucus 0 SEEN Urine Yeast RARE Radiography Diagnostic Testin view chest x-ray obtained interpreted by myself as no evidence of infiltrate or pneumothorax or acute disease process. Discharge Plan Triage Chief Complaint: Fever ED Provider: America Garcia Dx/Rx/DC Orders Clinical Impression: Fever, Decubitus ulcer, infected, Generalized weakness, Leukocytosis Prescriptions: No Action Tysabri 300 mg/15 mL solution 300 mg IV QMONTH Rx Instructions: 300 mg intravenously; once a month methenamine hippurate 1 gram tablet 1 g PO BID cholecalciferol (vitamin D3) 10,000 UNIT capsule 5,000 unit PO DAILY dalfampridine 10 MG tablet extended release 12 hr 10 mg PO BID ascorbic acid (vitamin C) 1,000 mg Tablet,Chewable 1 g PO DAILY zinc 50 mg Capsule 50 mg PO DAILY baclofen 10 mg tablet 20 mg PO Q4H Patient Comments: TAKE 1 TABLET BY MOUTHEEVERY 6 HOURS Primary Care Provider: Mario Soliz Referrals: Mario Soliz DO [Primary Care Provider] - Disposition Disposition: DC/Tx to Another Type of HCF
[2023-04-05 10:15] LABS: Absolute Lymphocyte Count 0.68 X10^3/uL (0.83-4.51); Absolute Neutrophil Count 11.1 X10^3/uL (2.0-7.7); Basophil# 0.03 X10^3/uL; Basophil% 0.2 % (0-1); Eosinophil# 0.29 X10^3/uL; Eosinophils% 2.2 % (0-5); Hematocrit 38.8 % (37-47); Lymphocyte # 0.68 X10^3/ul (0.83-4.51); Lymphocyte % 5.1 % (19-41); Mean Corp Hgb Conc 33.5 g/dL (32-36); Mean Corpuscular Hgb 31.1 pg (27.0-32.0); Mean Corpuscular Volume 92.8 fL (81-99); Mean Platelet Vol. 10.5 fl (6.2-12.0); Monocyte# 1.17 X10^3/uL; Monocyte% 8.8 % (0-10); NRBC Flagged by Analyzer 0.2 % (0-5); Neutrophil # 11.05 X10^3/uL (2.7-7.7); Neutrophil % 83.3 % (47-70); Platelet Count 192 K/mm3 (150-450); RBC Distribution Width CV 14.8 % (11.6-14.6); RBC Distribution Width SD 50.8 fl (35.1-43.9); Red Blood Count 4.18 M/mm3 (4.2-5.4); White Blood Count 13.3 K/mm3 (4.4-11.0)
[2023-04-05] MEDS: 0.9% Normal Saline (1000mL) 1,000 ML 1000 ML IV (10:15)
[2023-04-05 10:17] VITALS: BMI 18.4
[2023-04-05 10:40] LABS: ALB/GLOB Ratio 0.7 RATIO (0.9-2.4); AST(SGOT) 24 U/L (15-37); Alanine Aminotransfer ALT/SGPT 31 U/L (13-56); Albumin, Serum 2.8 g/dL (3.2-5.0); Alkaline Phosphatase 86 U/L (45-117); Anion Gap 7 (5-15); BUN 16 mg/dL (7-18); BUN/Creat Ratio 39.3 RATIO (10-20); Calcium,Total 9.4 mg/dL (8.5-10.1); Chloride 107 mmol/L (98-107); Creatinine, Serum 0.41 mg/dL (0.55-1.02); EST Glomerular Filtration Rate 171 mL/min (>60); Est Glom Filt Rate - Afr Amer 207 mL/min (>60); Estimated Creatinine Clearance 127.62 ml/min; Globulin 3.8 g/dL (2.2-4.2); Glucose 107 mg/dL (74-106); Potassium 3.7 mmol/L (3.5-5.1); Protein, Total 6.6 g/dL (6.4-8.2); Sodium Level 134 mmol/L (136-145)
[2023-04-05 10:48] LABS: Lactic Acid 1.3 mmol/L (0.4-1.9)
--- OUTSIDE RECORDS SUMMARY | 2023-04-05 10:51 | XMS RPT_ITS | CCD ---
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 Name Role Phone STEVEN Bartlett Michelle M Unavailable [phone] Preston Rojas Unavailable Now Nurse Unavailable Unavailable Butch De La Torre Unavailable Jessika Sanon LPN Unavailable Jessika Sanon LPN Unavailable [phone] PHYSICIAN, NOT RECORDED Primary Care Physician [facility] LIYA REID, DR AMARAL A Primary Care Physician [phone] ADDISON REID, DR BALLARD Attending Unavailable LIYA REID, DR AMARAL A Primary Care Unavailab chance JAIME DO, DR BALLARD Attending Unavailable LIYA REID, DR AMARAL A Primary Care Unavailab chance JAIME DO, DR BALLARD Attending Unavailable LIYA REID, DR AMARAL A Primary Care Unavailab le Allergies Allergy Classification Reported Allergen(s) Allergy Type Date of Onset Reaction(s) Facility (7 sources) ciprofloxacin drug allergy 09-25-2016 [facility] Work Phone: Medications Completed/Discontinued Medications Medication Drug Class(es) Dates Sig (Normalized) Sig (Original) baclofen 10 mg oral tablet (12 sources) gamma-Aminobutyr ic Acid-ergic Agonist Start: 09-25-2016 End: 12-22-2016 BACLOFEN 10 MG TABS as directed BACLOFEN [id number] Butch CHENG nitrofurantoin, macrocrystals 25 mg / nitrofurantoin, monohydrate 75 mg oral capsule (8 sources) Start: 09-25-2016 End: 12-22-2016 MACROBID 100 MG CAPS 1 capsule twice daily NITROFURANTOIN MONOHYD MACRO [id number] Preston CHENG Problems Active Problems Problem Classification [...] (Body Mass Index) 18.79 kg/m2 Butch CHENG [facility] Work Phone: 12-22-2016 16:32-0400 Body Temperature 98.7 [degF] Butch CHENG [facility] Work Phone: 12-22-2016 16:32-0400 BP Diastolic 62 mm[Hg] Butch CHENG [facility] Work Phone: 12-22-2016 16:32-0400 BP Systolic 104 mm[Hg] Butch CHENG [facility] Work Phone: 12-22-2016 16:32-0400 Height 170.18 cm Butch CHENG [facility] Work Phone: 12-22-2016 16:32-0400 Pulse (Heart Rate) 71 /min Butch CHENG [facility] Work Phone: 12-22-2016 16:32-0400 Respiratory Rate 13 /min Butch CHENG [facility] Work Phone: 12-22-2016 16:32-0400 Weight 54.43 kg Butch CHENG [facility] Work Phone: 09-25-2016 12:25-0400 BMI (Body Mass Index) 18.79 kg/m2 Jessika Sanon LPN [facility] Work Phone: 09-25-2016 12:25-0400 Body Temperature 98.4 [degF] Jessika Sanon LPN [facility] Work Phone: 09-25-2016 12:25-0400 BP Diastolic 84 mm[Hg] Jessika Sanon LPN [facility] Work Phone: 09-25-2016 12:25-0400 BP Systolic 126 mm[Hg] Jessika Sanon LPN [facility] Work Phone: 09-25-2016 12:25-0400 Height 170.18 cm Jessika Sanon LPN [facility] Work Phone: 09-25-2016 12:25-0400 Pulse (Heart Rate) 74 /min Jessika Sanon LPN [facility] Work Phone: 09-25-2016 12:25-0400 Respiratory Rate 14 /min Jessika Sanon LPN [facility] Work Phone: 09-25-2016 12:25-0400 Weight 54.43 kg Jessika Sanon LPN [facility] Work Phone: Encounters Encounter Date Encounter Type Care Provider Facility Start: 02-27-2022 End: 02-28-[address] NELLIE JAIME DO Facility:A Start: 02-27-2022 End: 02-27-[address] NELLIE JAIME DO [facility] Start: 02-18-2022 End: 06-06-[address] NELLIE JAIME DO Facility:A Start: 02-18-2022 End: 06-06-[address] NELLIE JAIME DO [facility] Start: 04-17-2021 End: 06-27-2021 Wound Care MAXIMINO NATION MD [facility] Procedures Date Procedure Procedure Detail Performing [...] Start: 09-25-2016 End: 09-25-2016 Urinalysis Jessika Sanon SITE OPERATIONS MANAGER Start: 09-25-2016 End: 09-25-2016 Urinalysis nonauto w/o scope Preston CHENG Work Phone: Start: 09-25-2016 End: 09-25-2016 Urine test visual color cmprsn meths Preston CHENG Work Phone: Start: 09-25-2016 End: 09-25-2016 Urine, test (choriogonadotropin presence) Preston CHENG Work Phone: Plan of Treatment Date Care Activity Detail Author Start: 12-22-2016 End: 12-22-2016 Appointment Appointment [facility] Work Phone: Start: 12-22-2016 End: 12-22-2016 Urinalysis complete panel - Urine *UAC- Urinalysis, Complete w/ Micro [facility] Work Phone: Start: 12-22-2016 End: 12-22-2016 Urinalysis complete panel - Urine *UAC- Urinalysis, Complete w/ Micro [facility] Work Phone: Start: 09-25-2016 End: 09-25-2016 Appointment Appointment [facility] Work Phone: Patient Education DYSURIA [facility] Work Phone: Payers Date Payer Category Payer Unknown [id number] 1965 Unknown [id number] 1965 Unknown [id number] 1965 Unknown [id number] Social History Date Type Detail Facility Tobacco smoking status [facility] Sex Assigned At Female [facility] Tobacco smoking status No Smoking Status Entered [facility] Evaluation + Plan note Note Date & Type Note Facility Evaluation + Plan note No data available for this section [facility] Hospital Discharge instructions Note Date & Type Note Facility Hospital Discharge instructions No data available for this section [facility] Progress note Note Date & Type Note Facility Progress note No data available for this section [facility] Summary Purpose Family History No Family History Records FoundNo Family History Records Found Advance Directives No Advanced Directives Records FoundNo Advanced Directives Records Found Additional Source Comments INFORMATION SOURCE (unrecogn ized section and content) DATE CREATED AUTHOR AUTHOR'S ORGANIZ ATION 06/07/2022 [facility] [place] Care Team (unrecognized sect ion and content) Personnel Name: PHYSICIAN, NOT RECORDED Care Team Personnel Name: MUNIR NICKERSON DO Member Role: Primary Care Physician Address: Address: [address] [place] [address] [place] [address] Care Team Related Persons Name: JAMES OJEDA Care Team (unrecognized sect ion and content) Care Team Personnel Name: LIYA MUNIR Mccabe Member Role: Primary Care Physician Address: Address: [address] [place], [place] [address]Mary GUIDRY [address] Care Team Related Persons Name: JAMES OJEDA Care Team Personnel Name: MUNIR NICKERSON DO Member Role: Primary Care Physician Address: Address: [address] [place] [address] Care Team Related Persons Name: JAMES OJEDA [...] BE BASED ON THE PRIMARY CLINICAL RECORDS. [employer] provides no warranty or guarantee of the accuracy or completeness of information in this document.
[2023-04-05 10:54] VITALS: BP 96/75; PULSE 74; RESP 16; O2SAT 98
[2023-04-05] MEDS: Piperacil/Tazobactam 4.5 GM in 0.9% Normal Saline (100mL MB+) 100 ML IV (10:54)
[2023-04-05 11:01] LABS: Mucous, Urine 0 SEEN /hpf (<or=2+)
[2023-04-05 11:03] LABS: Color, Urine Yellow (Yellow); Glucose, Dipstick Normal (Normal); Ketone-Dipstick 50 mg/dl (Negative); Leukocyte Esterase-Dipstick 100 /ul (Negative); Nitrite-Dipstick Negative (Negative); Occult Blood-Urine 250 /ul (Negative); Protein-Dipstick 30 mg/dl (Negative); Urine Bilirubin Dipstick Negative (Negative); Urine Clarity Clear (Clear); Urine Urobilinogen Normal (Normal); Urine pH 6.5 (5.0 - 8.0)
[2023-04-05 11:09] LABS: Bacteria RARE /hpf (None Seen); Red Blood Cells-Urine 0-5 SEEN /hpf (0-5); Squamous Epithelial Cells - UA 0-5 SEEN /hpf (5-10); White Blood Cells 0-5 SEEN /hpf (0-5)
[2023-04-05 11:10] LABS: Yeast-Urine RARE /hpf (None Seen)
[2023-04-05 11:43] VITALS: BP 115/64; PULSE 74; RESP 16; O2SAT 98
--- NOTE | 2023-04-05 13:10 | EX.PCM.CON.S ---
Assessment & Plan Assessment/Plan (1) Decubitus ulcer, infected: (2) Fever: (3) Leukocytosis: PLAN: Plan Discussed with patient and ER physician would recommend patient to transfer to a tertiary center with with plastics available as a do believe this would require more extensive debridement than I typically do as there is very little subcutaneous tissue. Patient would prefer [facility] if possible. Aliza Lew M.D. Pager: [phone] [facility] [address] [place] [address], Outpatient Pavilion, [address] [place] [id number] Office: [phone] HPI Consult Data Date of Consult: 04/05/23 HPI Narrative HPI Narrative: CASPER CHRISTENSEN, is a 57 F who presents to the ER due to fever patient also has decubitus ulcer-right ischium- she has been seen in the wound center since June 2022. Patient has a past medical history for MS. Patient did have a superficial debridement at the wound center on 04/02. Patient has grown Pseudomonas several times with this. Patient just stopped antibiotics about a week ago. Patient is never had a surgical debridement of this area. Asked to see patient as we do not currently have plastics available. Cultures from this area in January showed 6 different organisms, however patient's hip culture also had Pseudomonas; patient is also had occasional Pseudomonas in her urine [facility] Medical History (Updated 04/05/23 @ 12:[address] America Garcia, ) Breast cancer Breast cancer Breast cancer, left Cancer Chronic indwelling Pandey catheter Closed fracture of right distal femur Cystitis Debility Decubitus ulcer of left buttock, stage 3 Decubitus ulcer of right buttock, stage 3 Disproportion of reconstructed breast Estrogen receptor positive status [ER+] Femur fracture, right Former smoker History of breast cancer History of edema History of left breast cancer Marijuana use Multiple sclerosis Multiple sclerosis Multiple sclerosis Muscle spasm Neurogenic bladder PONV (postoperative nausea and vomiting) Post-menopausal Pressure injury of left hip, stage 4 Pressure injury of left hip, unstageable Pressure injury of right hip, stage 2 Pressure injury of right hip, stage 4 Pressure injury of sacral region, stage 4 Pressure ulcer of right ischium Sacral decubitus ulcer, stage III Screening for malignant neoplasm of breast Seasonal allergies Suprapubic catheter Urinary retention Uses wheelchair Weakness Wears glasses Home Medications cholecalciferol (vitamin D3) 250 mcg (10,000 unit) capsule 5,000 unit PO DAILY supplement 10/09/17 [History Last Taken 06/29/22] dalfampridine 10 mg tablet,extended release,12 hr 10 mg PO BID MS 03/24/18 [History Last Taken 06/29/22] ascorbic acid (vitamin C) 1,000 mg chewable tablet 1 g PO DAILY Check with primary doctor 07/12/21 [History Last Taken 06/29/22] zinc 50 mg capsule 50 mg PO DAILY Check with primary doctor 07/12/21 [History Last Taken 06/29/22] natalizumab 300 mg/15 mL intravenous solution (Tysabri) 300 mg IV QMONTH 10/02/22 [History Last Taken Unknown] baclofen 10 mg tablet 20 mg PO Q4H 11/06/22 [History Last Taken 11/13/22] methenamine hippurate 1 gram tablet 1 g PO BID 04/02/23 [History Last Taken Unknown] Allergy/AdvReac Type Severity Reaction Status Date / Time clavulanic acid AdvReac Unknown Diarrhea Verified 04/05/23 09:33 [From Augmentin] Family History Aunt Breast cancer Mother Diabetes Surgical History h/o tonsillectomy History of bilateral oophorectomy History of colostomy S/P left mastectomy (~10/12/17) Social History household members: spouse Smoking Status: Former smoker alcohol intake: never ROS Constitutional Constitutional: Reports fever(s) Eyes Eyes: Denies blurry vision ENT HEENT: Denies dysphagia Cardiovascular Cardiovascular: Denies chest pain Respiratory/Chest Respiratory/Chest: Denies cough Gastrointestinal Gastrointestinal: Denies abdominal pain Genitourinary Genitourinary: Denies hematuria Integumentary Integumentary: Denies jaundice Psychiatric Psychiatric: Denies depression Hematologic/Lymphatic Hematologic/Lymphatic: Denies easy bleeding Physical Exam Const alert and oriented x3 General Appearance: cooperative HEENT normocephalic Resp normal respiratory effort Cardio Rate: regular rate GI soft to palpation and non-tender GI Narrative: Right ischial ulcer previously listed as grade 3 question if actually grade 4 as it does not feel to be any soft tissue at the base, foul-smelling with drainage, no erythema on the skin, opening about 2 cm x 2 cm, right hip ulcer dressed with Band-Aid Inspection: ostomy present Extremity Extremity Narrative: Contracted lower extremities due to MS Lab / Micro Data 04/05/23 10:00 04/05/23 10:00 Labs: Laboratory Results - last 24 hr 04/05/23 10:00: WBC 13.3 H, RBC 4.18 L, Hgb 13.0, Hct 38.8, MCV 92.8, MCH 31.1, MCHC 33.5, RDW Std Deviation 50.8 H, RDW Coeff of Raisa 14.8 H, Plt Count 192, MPV 10.5, Immature Gran % (Auto) 0.400, Neut % (Auto) 83.3 H, Lymph % (Auto) 5.1 L, [place] % (Auto) 8.8, Eos % (Auto) 2.2, Baso % (Auto) 0.2, Absolute Neuts (auto) 11.1 H, Absolute Lymphs (auto) 0.68 L, Nucleated RBC % 0.2, Sodium 134 L, Potassium 3.7, Chloride 107, Carbon Dioxide 20.0 L, Anion Gap 7, BUN 16, Creatinine 0.41 L, Estim Creat Clear Calc 127.62, Est GFR (MDRD) Af Amer 207, Est GFR (MDRD) Non-Af 171, BUN/Creatinine Ratio 39.3 H, Glucose 107 H, Calcium 9.4, Total Bilirubin 0.90, AST 24, ALT 31, Alkaline Phosphatase 86, Total Protein 6.6, Albumin 2.8 L, Globulin 3.8, Albumin/Globulin Ratio 0.7 L 04/05/23 10:30: Lactic Acid 1.3 04/05/23 10:58: Urine Color Yellow, Urine Clarity Clear, Urine pH 6.5, Ur Specific [place] 1.010, Urine Protein 30 H, Urine Glucose (UA) Normal, Urine Ketones 50 H, Urine Occult Blood 250 H, Urine Nitrite Negative, Urine Bilirubin Negative, Urine Urobilinogen Normal, Ur Leukocyte Esterase 100 H, Urine RBC 0-5 SEEN, Urine WBC 0-5 SEEN, Ur Squamous Epith Cells 0-5 SEEN, Urine Bacteria RARE, Urine Mucus 0 SEEN, Urine Yeast RARE Micro: Microbiology 04/05/23 10:08 Mucosa - Nose SARS-CoV-2, Influenza & RSV (PCR) - Final Charges/Coding Visit Charges Inpatient E&M: 11579 Init Hosp L2
[2023-04-05 13:14] VITALS: BP 114/64; PULSE 80; RESP 15; O2SAT 98
[2023-04-05] MEDS: Vancomycin HCl 750 MG in 0.9% Normal Saline (250mL Bag) 250 ML 250 MG IV (14:29)
[2023-04-05] MEDS: 0.9% Normal Saline (1000mL) 1,000 ML 150 ML IV (14:30)
[2023-04-05 14:37] VITALS: BP 121/63; PULSE 86; RESP 16; TEMP 37; O2SAT 97
--- NOTE | 2023-04-05 15:29 | ED.RN ---
[facility] CALLED, ETA 60-90 MIN ([phone])
[2023-04-05 16:24] VITALS: BP 109/61; PULSE 79; RESP 16; TEMP 36.7; O2SAT 95
--- NOTE | 2023-04-05 16:58 | ED.RN ---
CALLED [facility] TO GET AN UPDATE ON THE ETA. SPOKE TO VERONICA WHO STATED THEY WERE IN ROUTE 5-10 MIN AWAY.
[2023-04-06 14:27] LABS: Pathologist Review Reviewed
== END 2023-04-05 17:27 | disposition other institution (70) ==
PROVIDERS: Emergency Provider Emergency Medicine; PCP Family Medicine; Visit Provider Emergency Medicine
DX: L89.319 Pressure ulcer of right buttock, unspecified stage (principal); Z93.3 Colostomy status; G35 Multiple sclerosis; R53.1 Weakness; N39.0 Urinary tract infection, site not specified; D72.829 Elevated white blood cell count, unspecified; B96.5 Pseudomonas (aeruginosa) (mallei) (pseudomallei) as the cause of diseases classified elsewhere; Z87.891 Personal history of nicotine dependence; Z85.3 Personal history of malignant neoplasm of breast; Z79.899 Other long term (current) drug therapy; Z90.722 Acquired absence of ovaries, bilateral; Z90.12 Acquired absence of left breast and nipple; R50.9 Fever, unspecified
CPT/HCPCS: 51702; 71045; 80053; 81001; 83605; 85025; 87040; 87070; 87077; 87086; 87088; 87186; 87205; 87631; 96361; 96365; 96366; 96367; 99285; J7030; J7050; A4216

== ENCOUNTER → 2023-04-14 | Outpatient (CLI) | payer MEDICARE, SELFPAY ==
[2023-04-14 10:13] LABS: Erythrocyte Sedimentation Rate 39 mm/hr (0-30)
[2023-04-14 10:15] LABS: Absolute Lymphocyte Count 2.04 X10^3/uL (0.83-4.51); Absolute Neutrophil Count 5.2 X10^3/uL (2.0-7.7); Basophil# 0.05 X10^3/uL; Basophil% 0.6 % (0-1); Eosinophils% 4.7 % (0-5); Hematocrit 37.2 % (37-47); Hemoglobin 11.9 g/dL (12.0-15.0); Lymphocyte # 2.04 X10^3/ul (0.83-4.51); Lymphocyte % 23.9 % (19-41); Mean Corpuscular Hgb 30.6 pg (27.0-32.0); Mean Corpuscular Volume 95.6 fL (81-99); Mean Platelet Vol. 10.5 fl (6.2-12.0); Monocyte# 0.67 X10^3/uL; Monocyte% 7.9 % (0-10); NRBC Flagged by Analyzer 0.6 % (0-5); Neutrophil # 5.19 X10^3/uL (2.7-7.7); Neutrophil % 60.9 % (47-70); Platelet Count 468 K/mm3 (150-450); RBC Distribution Width CV 15.5 % (11.6-14.6); RBC Distribution Width SD 53.8 fl (35.1-43.9); Red Blood Count 3.89 M/mm3 (4.2-5.4); White Blood Count 8.5 K/mm3 (4.4-11.0)
[2023-04-14 10:29] LABS: ALB/GLOB Ratio 0.8 RATIO (0.9-2.4); AST(SGOT) 14 U/L (15-37); Alanine Aminotransfer ALT/SGPT 57 U/L (13-56); Albumin, Serum 3.1 g/dL (3.2-5.0); Alkaline Phosphatase 108 U/L (45-117); Anion Gap 6 (5-15); BUN 20 mg/dL (7-18); BUN/Creat Ratio 44.5 RATIO (10-20); Calcium,Total 9.3 mg/dL (8.5-10.1); Chloride 102 mmol/L (98-107); Creatinine, Serum 0.45 mg/dL (0.55-1.02); EST Glomerular Filtration Rate 153 mL/min (>60); Est Glom Filt Rate - Afr Amer 185 mL/min (>60); Globulin 3.8 g/dL (2.2-4.2); Glucose 133 mg/dL (74-106); Potassium 3.8 mmol/L (3.5-5.1); Protein, Total 6.9 g/dL (6.4-8.2); Sodium Level 136 mmol/L (136-145)
== END | disposition home or self-care (01) ==
LOC: LABSPEC 09:55
PROVIDERS: PCP Family Medicine; Referring Provider Internal Medicine Infectious Disease; Visit Provider Internal Medicine Infectious Disease
DX: M86.10 Other acute osteomyelitis, unspecified site (principal)
CPT/HCPCS: 80053; 85025; 85652

== ENCOUNTER → 2023-04-20 | Outpatient (CLI) | payer MEDICARE, SELFPAY ==
[2018-02-01 11:47] VITALS: BMI 15.0
[2023-04-20 12:17] LABS: Erythrocyte Sedimentation Rate 49 mm/hr (0-30)
[2023-04-20 12:19] LABS: Absolute Lymphocyte Count 2.14 X10^3/uL (0.83-4.51); Absolute Neutrophil Count 7.5 X10^3/uL (2.0-7.7); Basophil# 0.07 X10^3/uL; Basophil% 0.6 % (0-1); Eosinophil# 0.29 X10^3/uL; Eosinophils% 2.7 % (0-5); Hematocrit 37.4 % (37-47); Hemoglobin 12.1 g/dL (12.0-15.0); Lymphocyte # 2.14 X10^3/ul (0.83-4.51); Lymphocyte % 19.6 % (19-41); Mean Corp Hgb Conc 32.4 g/dL (32-36); Mean Corpuscular Hgb 30.6 pg (27.0-32.0); Mean Corpuscular Volume 94.7 fL (81-99); Mean Platelet Vol. 10.7 fl (6.2-12.0); Monocyte# 0.88 X10^3/uL; NRBC Flagged by Analyzer 0.3 % (0-5); Neutrophil % 68.6 % (47-70); Platelet Count 430 K/mm3 (150-450); RBC Distribution Width CV 15.2 % (11.6-14.6); RBC Distribution Width SD 53.1 fl (35.1-43.9); Red Blood Count 3.95 M/mm3 (4.2-5.4); White Blood Count 10.9 K/mm3 (4.4-11.0)
--- OUTSIDE RECORDS SUMMARY | 2023-04-20 12:21 | XMS RPT_ITS | CCD ---
Author Name Unknown Address [address] [place] [address] Organization [facility] Care Team Providers Care Weapons Designer Name Role Phone STEVEN Bartlett, Myriam Stevenson Unavailable [phone] Preston Rojas Unavailable Now Nurse Unavailable Unavailable Butch De La Torre Unavailable Jessika Sanon LPN Unavailable [phone] CogJessika nash LPN Unavailable [phone] PHYSICIAN, NOT RECORDED [facility]abe Primary Care Physician [phone] Genna Beasley Unavailable Unavailable MURRAY POE MD Attending Unavailable SHERRELL MARRERO, DR HERBIE Zaragoza Admitting Anselmo CARDENAS MD, DR HECTOR CUMMINS Consulting Unav[facility] DR MUNIR Mccabe Primary Care Unavailab chance GOLDSTEIN MD, KIA Consulting Unavailable MAXIMINO JOY MD Consulting Unavailable Allergies Allergy Classification Reported Allergen(s) Allergy Type Date of Onset Reaction(s) Facility (7 sources) ciprofloxacin drug allergy 09-25-2016 [facility] Work Phone: (1 source) Amoxicillin / Clavulanate; Translations: [amoxicillin-clavu lanate] Drug Allergy diarrhea [facility] Medications Current Medications Medication Drug Class(es) Dates Sig (Normalized) Sig (Original) acetaminophen 325 mg oral capsule (1 source) Start: 04-10-2023 Tylenol 325 mg oral capsule Dose : 650 mg =, Oral, q4h, PRN Pain, scale 1-3, 0 Refill(s) Start Date: 04/10/23 Status: Ordered baclofen 20 mg oral tablet (13 sources) gamma-Aminobutyr ic Acid-ergic Agonist Start: 04-05-2023 take 1 dose by mouth every four hours baclofen Dose : 20 mg =, Oral, q4hr, 0 Refill(s) Start Date: 04/05/23 Status: Ordered Completed/Discontinued Medications Medication Drug Class(es) Dates Sig (Normalized) Sig (Original) Dakins Full Strength 0.5% topical solution (1 source) Start: 04-10-2023 Dakins Full Strength 0.5% topical solution Apply 1 kyle, Topical, BID, 0 Refill(s), Soln, 57.6 Start Date: 04/10/23 Status: Ordered methenamine hippurate 1000 mg oral tablet (1 source) Start: 04-05-2023 methenamine hippurate 1 g oral tablet Dose : 1 gram(s) = 1 tab(s), Oral, BID, tab(s), 0 Refill(s) Start Date: 04/05/23 Status: Ordered nitrofurantoin, macrocrystals 25 mg / nitrofurantoin, monohydrate 75 mg oral capsule (8 sources) Start: 09-25-2016 End: 12-22-2016 MACROBID 100 MG CAPS 1 capsule twice daily NITROFURANTOIN MONOHYD MACRO [id number] Preston CHENG Problems Active Problems Problem Classification Problem Date Documented Date Episodic/Chronic Cancer of breast (1 source) Personal history of malignant neoplasm of breast; Translations: [Personal history of malignant neoplasm of breast] Episodic Chronic ulcer of skin (8 sources) Pressure ulcer of hip; Translations: [Pressure ulcer of right hip, stage 4] Chronic Infective arthritis and osteomyelitis (except that caused by tuberculosis or sexually transmitted disease) (2 sources) Osteomyelitis; Translations: [Osteomyelitis, unspecified] Onset: 04-07-2023 Chronic Multiple sclerosis (4 sources) Multiple sclerosis; Translations: [Multiple sclerosis] Onset: 04-07-2023 Chronic Other acquired deformities (2 sources) Contracture of hip joint; Translations: [Contracture, right hip] Chronic Other acquired deformities (2 sources) Contracture of knee joint; Translations: [Contracture, right knee] Chronic Other diseases of bladder and urethra (1 source) Neurogenic dysfunction of the urinary bladder; Translations: [Neuromuscular dysfunction of bladder, unspecified] Chronic Other diseases of veins and lymphatics (1 source) Peripheral venous insufficiency; Translations: [Venous insufficiency (chronic) (peripheral)] Episodic Other lower respiratory disease (1 source) Chronic pulmonary edema; Translations: [Chronic pulmonary edema] Chronic Past or Other Problems Problem Classification Problem Date Documented Da te Episodic/Chronic Urinary tract infections (7 sources) Urinary tract infectious disease; Translations: [Urinary tract infection, site not specified] Onset: 09-25-2016 09-25-2016 Episodic Results Test Name Value Interpretation Reference Range Facil ity Vital Signs Date Time Vital Sign Value Performing Clinician Facility 04-10-2023 16:05-0500 Body temperature 98.24 [degF] DR HERBIE WYNNE MD [address] [place] [address] 04-10-2023 16:05-0500 Diastolic Blood Pressure Non-Invasive 74 mm[Hg] DR HERBIE WYNNE MD [address] [place] [address] 04-10-2023 16:05-0500 Heart rate 76 /min DR HERBIE WYNNE MD [address] [place] [address] 04-10-2023 16:05-0500 Reason For Taking VItal Signs DR HERBIE WYNNE MD [address] [place] [address] 04-10-2023 16:05-0500 Respiratory rate 18 /min DR HERBIE WYNNE MD [address] [place] [address] 04-10-2023 16:05-0500 Systolic Blood Pressure Non-Invasive 120 mm[Hg] DR HERBIE WYNNE MD [address] [place] [address] 04-10-2023 15:17-0500 Reason For Taking VItal Signs DR HERBIE WYNNE MD [address] [place] [address] 04-10-2023 13:23-0500 Reason For Taking VItal Signs DR HERBIE WYNNE MD [address] [place] [address] 04-10-2023 13:23-0500 Respiratory rate 16 /min DR HERBIE WYNNE MD [facility] 04-10-2023 10:30-0500 Blood Pressure Cuff Size DR HERBIE WYNNE MD [address] [place] [address] 04-10-2023 10:30-[address] HERBIE WYNNE MD [address] [place] [address] 04-10-2023 10:30-[address] HERBIE Chong MD [address] [place] [address] 04-10-2023 10:30-0500 Body temperature 97.16 [degF] DR HERBIE WYNNE MD [address] [place] [address] 04-10-2023 10:30-0500 Diastolic Blood Pressure Non-Invasive 64 mm[Hg] DR HERBIE WYNNE MD [address] [place] [address] 04-10-2023 10:30-0500 Heart rate 68 /min DR HERBIE WYNNE MD [address] [place] [address] 04-10-2023 10:30-0500 Respiratory rate 16 /min DR HERBIE WYNNE MD [address] [place] [address] 04-10-2023 10:30-0500 Systolic Blood Pressure Non-Invasive 96 mm[Hg] DR HERBIE WYNNE MD [address] [place] [address] 04-10-2023 09:43-0500 Blood Pressure Cuff Size DR HERBIE WYNNE MD [address] [place] [address] 04-10-2023 09:43-[address] HERBIE WYNNE MD [address] [place] [address] 04-10-2023 09:43-[address] HERBIE Chong MD [address] [place] [address] 04-10-2023 09:43-0500 Diastolic Blood Pressure Non-Invasive 70 mm[Hg] DR HERBIE WYNNE MD [address] [place] [address] 04-10-2023 09:43-0500 Systolic Blood Pressure Non-Invasive 108 mm[Hg] DR HERBIE WYNNE MD [address] [place] [address] 04-10-2023 07:57-0500 Blood Pressure Cuff Size DR HERBIE WYNNE MD [address] [place] [address] 04-10-2023 07:57-[address] HERBIE WYNNE MD [address] [place] [address] 04-10-2023 07:57-[address] HERBIE Chong MD [address] [place] [address] 04-10-2023 07:57-0500 Body temperature 96.8 [degF] DR HERBIE WYNNE MD [address] [place] [address] 04-10-2023 07:57-0500 Heart rate 70 /min DR HERBIE WYNNE MD [address] [place] [address] 04-10-2023 03:51-0500 Body temperature 98.24 [degF] DR HERBIE WYNNE MD [address] [place] [address] 04-09-2023 23:52-0500 Body temperature 97.7 [degF] DR HERBIE WYNNE MD [address] [place] [address] 04-09-2023 23:52-0500 Mean blood pressure 73 mm[Hg] DR HERBIE WYNNE MD [address] [place] [address] 04-09-2023 14:50-0500 Mean blood pressure 72 mm[Hg] DR HERBIE WYNNE MD [address] [place] [address] 04-08-2023 18:23-0500 Body height [address] HERBIE WYNNE MD [address] [place] [address] 04-08-2023 18:23-0500 Body weight 57.[address] HERBIE WYNNE MD [address] [place] [address] 04-08-2023 18:23-0500 Body weight 19.93 kg/m2 DR HERBIE WYNNE MD [address] [place] [address] 04-08-2023 16:00-0500 Heart rate 68 /min DR HERBIE WYNNE MD [address] [place] [address] 04-08-2023 02:30-0500 Heart rate 59 /min DR HERBIE WYNNE MD [address] [place] [address] 04-07-2023 10:56-0500 Body temperature 97.88 [degF] DR HERBIE WYNNE MD [address] [place] [address] 04-06-2023 10:18-0500 Body temperature 98.06 [degF] DR HERBIE WYNNE MD [address] [place] [address] 04-06-2023 08:07-0500 Body height [address] HERBIE WYNNE MD [address] [place] [address] 04-06-2023 08:07-0500 Body weight 57.[address] HERBIE WYNNE MD [address] [place] [address] 04-06-2023 08:07-0500 Body weight 19.93 kg/m2 DR HERBIE WYNNE MD [address] [place] [address] 04-06-2023 03:20-0500 Body temperature 101.48 [degF] DR HERBIE WYNNE MD [address] [place] [address] 04-05-2023 23:39-0500 Body temperature 102.38 [degF] DR HERBIE WYNNE MD [address] [place] [address] 04-05-2023 22:33-0500 Mean blood pressure 65 mm[Hg] DR HERBIE WYNNE MD [address] [place] [address] 04-05-2023 19:01-0500 Heart rate 81 /min DR HERBIE WYNNE MD [facility] 12-22-2016 16:32-0400 BMI (Body Mass Index) 18.79 kg/m2 Butch Hayes SKYLAR [facility] Work Phone: 12-22-2016 16:32-0400 Body Temperature 98.7 [degF] Butch Hayes PA [facility] Work Phone: 12-22-2016 16:32-0400 BP Diastolic 62 mm[Hg] Butch Hayes PA [facility] Work Phone: 12-22-2016 16:32-0400 BP Systolic 104 mm[Hg] Butch Hayes PA [facility] Work Phone: 12-22-2016 16:32-0400 Height 170.18 cm Butch Hayes PA [facility] Work Phone: 12-22-2016 16:32-0400 Pulse (Heart Rate) 71 /min Butch Hayes SKYLAR [facility] Work Phone: 12-22-2016 16:32-0400 Respiratory Rate 13 /min Butch Hayes PA [facility] Work Phone: 12-22-2016 16:32-0400 Weight 54.43 kg Butch Hayes PA [facility] Work Phone: 09-25-2016 12:25-0400 BMI (Body Mass Index) 18.79 kg/m2 Jessika Cogar TAX MANAGER PUBLIC [facility] Work Phone: 09-25-2016 12:25-0400 Body Temperature 98.4 [degF] Jessika Cogar TAX MANAGER [employer] [facility] Work Phone: 09-25-2016 12:25-0400 BP Diastolic 84 mm[Hg] Jessika Cogar TAX MANAGER PUBLIC [facility] Work Phone: 09-25-2016 12:25-0400 BP Systolic 126 mm[Hg] Jessika Cogar TAX MANAGER PUBLIC [facility] Work Phone: 09-25-2016 12:25-0400 Height 170.18 cm Jessika Cogar TAX MANAGER PUBLIC [facility] Work Phone: 09-25-2016 12:25-0400 Pulse (Heart Rate) 74 /min Jessika Sanon LPN [facility] Work Phone: 09-25-2016 12:25-0400 Respiratory Rate 14 /min Jessika Sanon LPN [facility] Work Phone: 09-25-2016 12:25-0400 Weight 54.43 kg Jessika Sanon LPN [facility] Work Phone: Encounters Encounter Date Encounter Type Care Provider Facility Start: 04-05-2023 End: 04-10-2023 Evaluation and management of inpatient MURRAY POE MD Facility:A Start: 04-05-2023 End: 04-10-2023 Evaluation and management of inpatient DR HERBIE WYNNE MD [facility] Start: 02-27-2022 End: 02-27-[address] NELLIE JAIME DO [facility] Start: 02-18-2022 End: 06-06-[address] NELLIE JAIME DO [facility] Start: 04-17-2021 End: 06-27-2021 Wound Care MAXIMINO JOY MD [facility] Procedures Date Procedure Procedure Detail Performing [...] Start: 09-25-2016 End: 09-25-2016 Urinalysis Jessika Sanon TAX MANAGER PUBLIC Start: 09-25-2016 End: 09-25-2016 Urinalysis nonauto w/o scope Preston CHENG Work Phone: Start: 09-25-2016 End: 09-25-2016 Urine test visual color cmprsn meths Preston CHENG Work Phone: Start: 09-25-2016 End: 09-25-2016 Urine, test (choriogonadotropin presence) Preston CHENG Work Phone: Plan of Treatment Date Care Activity Detail Author Start: 12-22-2016 End: 12-22-2016 Appointment Appointment [facility] Work Phone: Start: 12-22-2016 End: 12-22-2016 Urinalysis complete panel - Urine *UAC- Urinalysis, Complete w/ Micro [facility] Work Phone: Start: 12-22-2016 End: 12-22-2016 Urinalysis complete panel - Urine *UAC- Urinalysis, Complete w/ Micro [facility] Work Phone: Start: 09-25-2016 End: 09-25-2016 Appointment Appointment [facility] Work Phone: Patient Education DYSURIA [facility] Work Phone: Payers Date Payer Category Payer Medicare [id number] 2023 Unknown [id number] 1965 Unknown [id number] Social History Date Type Detail Facility [facility] Tobacco smoking status No Smoking Status Entered [facility] Functional Status Date Assessment Result Facility 04-10-2023 Functional Status Room check performed [facility] 04-10-2023 Functional Status [facility] 04-10-2023 Functional Status Done [facility] 04-10-2023 Functional Status 65 [facility] 04-10-2023 Functional Status Skin Care Prev entative Intervention(s) heel(s)s elevated [facility] 04-09-2023 Functional Status [facility] 04-09-2023 Functional Status [facility] 04-09-2023 Functional Status [facility] 04-09-2023 Functional Status [facility] 04-08-2023 Functional Status [facility] 04-07-2023 Functional Status Dinner Percent 25 [facility] 04-06-2023 Functional Status [facility] 04-06-2023 Functional Status [facility] Mental Status Date Assessment Result Facility 04-10-2023 Mental Status Oriented x 4 [facility] 04-10-2023 [facility] 04-09-2023 [facility] Status [facility] 04-09-2023 Mental Status [facility] 04-09-2023 Mental Status [facility] Clinical Notes 04-05-2023 to 04-11-2023 Note Date & Type Note Facility 04-11-2023 Note . MICRO - Microbiology PROCEDURE: Blood Culture (bacterial) [*1] SOURCE: Blood BODY SITE: Arm R COLLECTED DATE/TIME: 04/06/2023 00:21 EST RECEIVED DATE/TIME: 04/06/2023 06:00 EST START DATE/TIME: 04/06/2023 06:00 EST FREE TEXT SOURCE: FINAL REPORTS Final Report [] Verified Date/Time/Personnel: 04/11/2023 06:59 EST Blood Culture: No Growth at 5 days. PRELIMINARY REPORTS Preliminary Report [] Verified Date/Time/Personnel: 04/06/2023 06:59 EST Culture has been received in lab and is no growth to date. Routine cultures are held for 5 days. Performing Locations *1: This test was performed at: [address], [facility] , Replaced by [facility] ([place]) 04-11-2023 Note . MICRO - Microbiology PROCEDURE: Blood Culture (bacterial) [*1] SOURCE: Blood BODY SITE: Arm L COLLECTED DATE/TIME: 04/06/2023 00:21 EST RECEIVED DATE/TIME: 04/06/2023 05:59 EST START DATE/TIME: 04/06/2023 06:00 EST FREE TEXT SOURCE: FINAL REPORTS Final Report [] Verified Date/Time/Personnel: 04/11/2023 06:59 EST Blood Culture: No Growth at 5 days. PRELIMINARY REPORTS Preliminary Report [] Verified Date/Time/Personnel: 04/06/2023 06:59 EST Culture has been received in lab and is no growth to date. Routine cultures are held for 5 days. Performing Locations *1: This test was performed at: [address], [address] [place] [address] ([place]) 04-10-2023 Hospital Discharge instructions Patient Education 04/10/2023 16:22:47 Osteomyelitis, Adult Osteomyelitis, Adult Bone infections (osteomyelitis) occur when bacteria or other germs get inside a bone. This can happen if you have an infection in another part of your body that spreads through your blood. Germs from your skin or from outside of your body can also cause this type of infection if you have a wound or a broken bone (fracture) that breaks the skin. Bone infections need to be treated quickly to prevent bone damage and to prevent the infection from spreading to other areas of your body. What are the causes? Most bone infections are caused by bacteria. They can also be caused by other germs, such as viruses and funguses. What increases the risk? You are more likely to develop this condition if you: Recently had surgery, especially bone or joint surgery. Have a long-term (chronic) disease, such as: ?Diabetes. ?HIV (human immunodeficiency virus). ?Rheumatoid arthritis. ?Sickle cell anemia. ?Kidney disease that requires dialysis. Are aged 60 years or older. Have a condition or take medicines that block or weaken your body's defense system (immune system). Have a condition that reduces your blood flow. Have an artificial joint. Have had a joint or bone repaired with plates or screws (surgical hardware). Use IV drugs. Have a central line for IV access. Have had trauma, such as stepping on a nail or a broken bone that came through the skin. What are the signs or symptoms? Symptoms vary depending on the type and location of your infection. Common symptoms of bone infections include: Fever and chills. Skin redness and warmth. Swelling. Pain and stiffness. Drainage of fluid or pus near the infection. How is this diagnosed? This condition may be diagnosed based on: Your symptoms and medical history. A physical exam. Tests, such as: ?A sample of tissue, fluid, or blood taken to be examined under a microscope. ?Pus or discharge swabbed from a wound for testing to identify germs and to determine what type of medicine will kill them (culture and sensitivity). ?Blood tests. Imaging studies. These may include: ?X-rays. ?MRI. ?CT scan. ?Bone scan. ?Ultrasound. How is this treated? Treatment for this condition depends on the cause and type of infection. Antibiotic medicines are usually the first treatment for a bone infection. This may be done in a hospital at first. You may have to continue IV antibiotics at home or take antibiotics by mouth for several weeks after that. Other treatments may include surgery to remove: or dying tissue from a bone. An infected artificial joint. Infected plates or screws that were used to repair a broken bone. Follow these instructions at home: Medicines Take jjlk-iki-jkysrmu and prescription medicines only as told by your health care provider. Take your antibiotic medicine as told by your health care provider. Do not stop taking the antibiotic even if you start to feel better. Follow instructions from your health care provider about how to take IV antibiotics at home. You may need to have a nurse come to your home to give you the IV antibiotics. General instructions Ask your health care provider if you have any restrictions on your activities. If directed, put ice on the affected area: ?Put ice in a plastic bag. ?Place a towel between your skin and the bag. ?Leave the ice on for 20 minutes, 2 3 times a day. Wash your hands often with soap and water. If soap and water are not available, use hand veneer glue spreader. Do not use any products that contain nicotine or tobacco, such as cigarettes and e-cigarettes. These can delay bone healing. If you need help quitting, ask your health care provider. Keep all follow-up visits as told by your health care provider. This is important. Contact a health care provider if: You develop a fever or chills. You have redness, warmth, pain, or swelling that returns after treatment. Get help right away if: You have rapid breathing or you have trouble breathing. You have chest pain. You cannot drink fluids or make urine. The affected area swells, changes color, or turns blue. You have numbness or severe pain in the affected area. Summary Bone infections (osteomyelitis) occur when bacteria or other germs get inside a bone. You may be more likely to get this type of infection if you have a condition, such as diabetes, that lowers your ability to fight infection or increases your chances of getting an infection. Most bone infections are caused by bacteria. They can also be caused by other germs, such as viruses and funguses. Treatment for this condition usually starts with taking antibiotics. Further treatment depends on the cause and type of infection. This information is not intended to replace advice given to you by your health care provider. Make sure you discuss any questions you have with your health care provider. Document Released: 03/02/2006 Document Revised: 03/18/2018 Document Reviewed: 03/11/2018 [employer] Patient Education 2020 [employer]. Follow Up Care 04/05/2023 14:21:21 With:[facility] will providing your IV medication and delivering this to your room. Call them with any questions at [phone] Address:Unknown When:1-2 days [facility] Address:Unknown When:1-2 days Comments:[facility] RN for IV infusion and wound care. They will call you before coming out to the home. Call them with any questions at [phone] With:MUNIR NICKERSON DO Address: [address] [place] [id number]- When:1-2 days Comments:Please call the office to schedule a follow-up appointment With:[facility] - Patient had home medication brought in. Please send home with patient upon discharge. Address: When:1-[address] [facility] 04-10-2023 Note Discharge Instructions Thank you for allowing [facility] to assist you with your healthcare needs. The following is important discharge information regarding your hospital visit. Your Care Team MUNIR NICKERSON DO Your Diagnosis MS (multiple sclerosis) Osteomyelitis What to do next Follow Up Appointments Follow Up with [facility] will providing your IV medication and delivering this to your room. Call them with any questions at [phone] When Within 1-[address] [facility] When Within 1-2 days Why: [facility] RN for IV infusion and wound care. They will call you before coming out to the home. Call them with any questions at [phone] Follow Up with MUNIR NICKERSON DO When Within 1-2 days Why: Please call the office to schedule a follow-up appointment Where: [address] [place] [id number]- Follow Up with [facility] - Patient had home medication brought in. Please send home with patient upon discharge. When Within 1-2 days Where: The Following Activity and Diet Have Been Ordered for You Discharge Activity - Ordered -- NO activity restrictions, 04/10/23 16:11:00 EST Discharge Diet - Ordered -- No changes were made to your diet during your hospital stay. Please resume your pre hospitalization diet on discharge., 04/10/23 16:11:00 EST The Following Equipment Has Been Ordered for You Discharge Home Equipment Discharge Wound Care - Ordered -- 04/10/23 12:03:00 EST Discharge Wound Care - Ordered -- 04/10/23 12:08:00 EST Discharge Wound Care - Ordered -- Cleanse right ischial tuberosity, pat dry and lightly pack with Dakin soaked gauze and cover with ABD or foam dressing. Cleanse left hip wound with normal saline, pat dry and lightly packed with Dakin soaked gauze and cover, 04/10/23 16:11:00 EST The Following Treatments Have Been Ordered for You Discharge Labs No qualifying data available. Discharge Radiology No qualifying data available. Other Therapies No qualifying data available. Post Acute Orders No qualifying data available. Someone Will Contact You Regarding These Home Health Referrals No home referrals have been ordered for you. No one will call you. Allergies Augmentin (diarrhea) Medications Please ask your primary doctor or pharmacist before taking any other medication not listed, including over the counter drugs, herbal medications, vitamins and or supplements as they may interact with your home medications. What How Much When Instructions Last Dose New acetaminophen (Tylenol 325 mg oral capsule) 650 Milligram by mouth Every 4 hours as needed for Pain, scale 1-3 New piperacillin-tazobactam (Zosyn) 4.5 gram(s) IV Piggyback Every 8 hours New sodium hypochlorite topical (Dakins Full Strength 0.5% topical solution) 1 application Topical Two (2) times a day Unchanged baclofen 20 Milligram by mouth Every 4 hours Unchanged dalfampridine (dalfampridine 10 mg oral tablet, extended release) 1 tab(s) by mouth Every 12 hours Unchanged docusate (Colace 100 mg oral capsule) 1 cap by mouth Two (2) times a day as needed for for constipation Unchanged methenamine (methenamine hippurate 1 g oral tablet) 1 tab(s) by mouth Two (2) times a day Unchanged psyllium (Metamucil 3.4 g/ 5.2 g oral powder for reconstitution) 1.7 gram(s) by mouth Once a day as needed for as needed for constipation Please take this list to your next doctor s visit. Bring all medications you take, including over the counter medications, herbals and other supplements with you to your doctor s visit. Patients and families are reminded to discard old lists and to update any records with all medication providers or retail pharmacies. Education Materials Osteomyelitis, Adult Bone infections (osteomyelitis) occur when bacteria or other germs get inside a bone. This can happen if you have an infection in another part of your body that spreads through your blood. Germs from your skin or from outside of your body can also cause this type of infection if you have a wound or a broken bone (fracture) that breaks the skin. Bone infections need to be treated quickly to prevent bone damage and to prevent the infection from spreading to other areas of your body. What are the causes? Most bone infections are caused by bacteria. They can also be caused by other germs, such as viruses and funguses. What increases the risk? You are more likely to develop this condition if you: Recently had surgery, especially bone or joint surgery. Have a long-term (chronic) disease, such as: ? Diabetes. ? HIV (human immunodeficiency virus). ? Rheumatoid arthritis. ? Sickle cell anemia. ? Kidney disease that requires dialysis. Are aged 60 years or older. Have a condition or take medicines that block or weaken your body's defense system (immune system). Have a condition that reduces your blood flow. Have an artificial joint. Have had a joint or bone repaired with plates or screws (surgical hardware). Use IV drugs. Have a central line for IV access. Have had trauma, such as stepping on a nail or a broken bone that came through the skin. What are the signs or symptoms? Symptoms vary depending on the type and location of your infection. Common symptoms of bone infections include: Fever and chills. Skin redness and warmth. Swelling. Pain and stiffness. Drainage of fluid or pus near the infection. How is this diagnosed? This condition may be diagnosed based on: Your symptoms and medical history. A physical exam. Tests, such as: ? A sample of tissue, fluid, or blood taken to be examined under a microscope. ? Pus or discharge swabbed from a wound for testing to identify germs and to determine what type of medicine will kill them (culture and sensitivity). ? Blood tests. Imaging studies. These may include: ? X-rays. ? MRI. ? CT scan. ? Bone scan. ? Ultrasound. How is this treated? Treatment for this condition depends on the cause and type of infection. Antibiotic medicines are usually the first treatment for a bone infection. This may be done in a hospital at first. You may have to continue IV antibiotics at home or take antibiotics by mouth for several weeks after that. Other treatments may include surgery to remove: or dying tissue from a bone. An infected artificial joint. Infected plates or screws that were used to repair a broken bone. Follow these instructions at home: Medicines Take gnyt-ogl-loznpnm and prescription medicines only as told by your health care provider. Take your antibiotic medicine as told by your health care provider. Do not stop taking the antibiotic even if you start to feel better. Follow instructions from your health care provider about how to take IV antibiotics at home. You may need to have a nurse come to your home to give you the IV antibiotics. General instructions Ask your health care provider if you have any restrictions on your activities. If directed, put ice on the affected area: ? Put ice in a plastic bag. ? Place a towel between your skin and the bag. ? Leave the ice on for 20 minutes, 2 3 times a day. Wash your hands often with soap and water. If soap and water are not available, use hand veneer glue spreader. Do not use any products that contain nicotine or tobacco, such as cigarettes and e-cigarettes. These can delay bone healing. If you need help quitting, ask your health care provider. Keep all follow-up visits as told by your health care provider. This is important. Contact a health care provider if: You develop a fever or chills. You have redness, warmth, pain, or swelling that returns after treatment. Get help right away if: You have rapid breathing or you have trouble breathing. You have chest pain. You cannot drink fluids or make urine. The affected area swells, changes color, or turns blue. You have numbness or severe pain in the affected area. Summary Bone infections (osteomyelitis) occur when bacteria or other germs get inside a bone. You may be more likely to get this type of infection if you have a condition, such as diabetes, that lowers your ability to fight infection or increases your chances of getting an infection. Most bone infections are caused by bacteria. They can also be caused by other germs, such as viruses and funguses. Treatment for this condition usually starts with taking antibiotics. Further treatment depends on the cause and type of infection. This information is not intended to replace advice given to you by your health care provider. Make sure you discuss any questions you have with your health care provider. Document Released: 03/02/2006 Document Revised: 03/18/2018 Document Reviewed: 03/11/2018 [employer] Patient Education 2020 [employer] Additional Information VACCINATE! IT SAVES LIVES! Members of the community who have not yet received the COVID-19 vaccine and would like to receive it can visit one of [facility] vaccine clinics. There are many vaccine clinic locations within the [facility]. For locations and available times, please visit https://gettheshot.coronavirus.[place].gov/. It is important to note that some COVID mobile vaccine clinics are held outdoors and may be canceled in rainy or stormy conditions. To learn more about pediatric vaccinations (ages 5-11), we invite you to visit the [facility] webpage. [email or web address].[email or web address]/pa [email or web address]-[email or web address]-Freque [email or web address].[email or web address] To learn more about the COVID-19 vaccine, we invite you to visit the CDC website for a list of frequently asked questions.https://www.cdc.gov/cor onavirus/2019-ncov/vaccines/faq.h tml [facility] Patient Portal Access Instructions: Stay connected with your healthcare team and access your personal medical information anytime with the [facility] Patient Portal. Please follow the directions below to create your [facility] account: 1.Access the email account you provided upon registration to the hospital/physician office.2.Look for an invitation email from [facility].3.Open the email and access the invitation link: Accept Invitation to [facility].4.Fill in the required biggs to create your account. To access your account, visit [employer]. Click the blue button labeled Access Patient Portal and then log in with the username and password that you created in the steps above. You will be able to view your test results, lab results, a summary of your visits, upcoming appointments and more. There is also a convenient messaging option where you can send secure messages to your provider. In addition, you will have the ability to download any documents or summaries to your computer and/or send the information securely to a physician. Remember that your healthcare information is confidential, so carefully consider who you will allow to register on the [facility] Patient Portal for access to your information. You can also access the [facility] Patient Portal on the [facility] kyle. Simply click on Patient Portal and then log into your account. If you would like to receive a full copy of your medical records, please contact the [facility] Medical Records Department by calling [phone], Thursday through Thursday between 8 a.m. and 4:30 p.m. HOW TO SAFELY DISPOSE OF PRESCRIPTION MEDICATIONS Please use one of the following methods to safely dispose of your unused medications. 1.Use a drug disposal kit: the drug disposal pouch allows you to safely discard your old and unused drugs. Ask your nurse to give you one when you are discharged.2.Visit a local take-back location: Many local pharmacies and police departments have programs that collect old and unwanted prescription drugs. Call your local pharmacy or go to http://[employer].evOLED/8O2Ge8d to find one close to you.3.Make use of household items: Use cat litter or old coffee grounds to dispose medications if other options are not available. Mix your drugs with these household products, seal them in an airtight container and throw it into the garbage. Call [facility]: [phone] to be sure your drugs can be disposed of in this way. Some medicines may require a different approach.4.Never flush your medications down the toilet. IF YOU HAVE BEEN PRESCRIBED AN OPIOID FOR PAIN If you have been prescribed an opioid (such as hydrocodone, oxycodone or morphine), it is critical to understand the possible side effects and risks of opioid pain medications. Even when taken as directed, opioids can have several side effects including: Tolerance, meaning you might need to take more of a medication for the same pain relief. Nausea, vomiting and/or constipation. Sleepiness, dizziness, dry mouth, confusion, depression or itching. Physical dependence, meaning you have withdrawal symptoms when a medication is stopped, can develop within a few days. KNOW YOUR RESPONSIBILITIES It is important to know exactly how much and how often to take the opioid pain medications you are prescribed. Never take opioids in higher amounts or more often than prescribed. Do not combine opioids with alcohol or other drugs that cause drowsiness, such as benzodiazepines, also known as benzos, including diazepam and alprazolam, muscle relaxants or sleep aids. Never sell or share prescription opioids. This is illegal. Store opioids in a secure place and out of reach of others (including children, family, friends and visitors). The last page of this document has been signed and retained as a CHART COPY. Signatures Patient Education Materials Osteomyelitis, Adult Medication Leaflets My discharge plan and instructions have been reviewed and explained to me and IAMPARO KATHY S understand my current condition and have read and understand these discharge instructions. I have received a written copy of the plan/instructions. If I have questions, I am aware that I should contact my doctor. Patient/Spinner Open End Signature: Date/Time: Relationship to Patient: ____ Witness Name/Signature: Date/Time: [facility] 04-10-2023 Discharge summary Date of Service 04.10.23 Discharge Diagnosis Pressure ulcer of right buttock, stage 4 (L89.314 - ICD-10-CM) Chronic pulmonary edema (J81.1 - ICD-10-CM) Osteomyelitis, unspecified (M86.9 - ICD-10-CM) Venous insufficiency (chronic) (peripheral) (I87.2 - ICD-10-CM) Multiple sclerosis (G35 - ICD-10-CM) Neuromuscular dysfunction of bladder, unspecified (N31.9 - ICD-10-CM) Pressure ulcer of left hip, stage 2 (L89.222 - ICD-10-CM) Personal history of malignant neoplasm of breast (Z85.3 - ICD-10-CM) MS (multiple sclerosis) (G35 - ICD-10-CM) Osteomyelitis (M86.9 - ICD-10-CM) Additional Orders: Ordered: Dakins Full Strength 0.5% topical solution,Apply 1 kyle, Topical, BID, 0 Refill(s), Soln, 57.6 Ordered: Discharge,04/10/23 16:11:00 EST, Discharged to: Home Ordered: Discharge Activity,NO activity restrictions, 04/10/23 16:11:00 EST Ordered: Discharge Diet,No changes were made to your diet during your hospital stay. Please resume your pre hospitalization diet on discharge., 04/10/23 16:11:00 EST Ordered: Discharge Wound Care,Cleanse right ischial tuberosity, pat dry and lightly pack with Dakin soaked gauze and cover with ABD or foam dressing. Cleanse left hip wound with normal saline, pat dry and lightly packed with Dakin soaked gauze and cover, 04/10/23 16:11:00 EST Other status: Social Service/Case Management Consult,04/10/23 9:05:00 EST, Discharge Planning, will need home care for IV antibiotics(Complete) Ordered: Tylenol 325 mg oral capsule,Dose : 650 mg =, Oral, q4h, PRN Pain, scale 1-3, 0 Refill(s) Ordered: Zosyn,Dose : 4.5 gram(s) = 100 mL, IV Piggyback, q8h, 0 Refill(s), 57.6 Discontinued: cephalexin 500 mg oral capsule,Dose : 500 mg = 1 cap(s), Oral, TID, Provide Lactobacillus tablets ywsu-hlh-wahilmx is okay, twice a day for 2 months, X 6 week(s), # 126 cap(s), 0 Refill(s), 05/19/23 16:37:00 EST, 57.6 Hospital Course Is a 57-year-old female with a past medical history of MS, wheelchair dependent, suprapubic catheter for neurogenic bladder, decubitus ulcerations, history of breast cancer admitted with fever. Had worsening weakness at home. Being followed by infectious disease, felt to have osteomyelitis related to her decubitus ulcer. Antibiotics were changed to Keflex. Neurology saw the patient during her stay and felt that she had a pseudo flare of her MS. Blood pressure had been running low but improving. Episode recently of increased oxygen demands, chest x-ray showed pulmonary edema, IV fluids were discontinued and Lasix was given. She was negative for COVID, flu, RSV. Patient had been given fluid boluses for hypotension. She is doing well on room air. She complains of constipation, additional meds given with good results. Hip wound culture came back positive for pseudomonas. She was started on IV antibiotics by ID. Plan now is for IV zosyn. Home care has been arranged. PICC placed, medically stable for discharge home today. Allergies Augmentin (diarrhea) Consults Consult to Physician - Ordered -- 04/05/23 18:45:00 TRISTON HUANG KIRAN MD, Routine, infected decubitus ulcer wound Consult to Physician - Ordered -- 04/05/23 18:45:00 RIOS HUANG MIRZA N MD, Routine, infected decubitus ulcer wound Consult to Physician - Ordered -- 04/05/23 18:55:00 EST, KVNG STORY MD, Routine, multiple sclerosis Physical Exam Vitals and Measurements T: 36.8 C (Oral) TMIN: 36 C (Axillary) TMAX: 36.8 C (Axillary) HR: 76 RR: 18 BP: 120/74 SpO2: 95% Weight Dosing Weight: 57.6 kg (04/08/23) Dosing Weight: 57.6 kg (04/06/23) Vitals Signs(Last 24 hrs)__ Last Charted Minimum Maximum Temp 36.8(APR 10 16:05) 36.8(APR 10 16:05) 36.2(APR 10 10:30) SBP 120(APR 10 16:05) L 89(APR 10 07:57) 120(APR 10 16:05) DBP 74(APR 10 16:05) L 54(APR 09 19:27) 74(APR 10 16:05) Code Status Code Status - Ordered -- 04/05/23 18:46:00 EST, Full Code, Constant Order Admission Date 04.05.23 Discharge Date 04.10.23 Medications New Prescription acetaminophen (Tylenol 325 mg oral capsule)650 Milligram by mouth every 4 hours as needed Pain, scale 1-3. piperacillin-tazobactam (Zosyn)4.5 gram(s) IV Piggyback every 8 hours. sodium hypochlorite topical (Dakins Full Strength 0.5% topical solution)1 application Topical two (2) times a day. Unchanged dezktssu37 Milligram by mouth every 4 hours. dalfampridine (dalfampridine 10 mg oral tablet, extended release)1 tab(s) by mouth every 12 hours. docusate (Colace 100 mg oral capsule)1 cap by mouth two (2) times a day as needed for constipation. methenamine (methenamine hippurate 1 g oral tablet)1 tab(s) by mouth two (2) times a day. psyllium (Metamucil 3.4 g/5.2 g oral powder for reconstitution)1.7 gram(s) by mouth once a day as needed as needed for constipation. Follow Up Follow Up with [facility] will providing your IV medication and delivering this to your room. Call them with any questions at [phone] When Within 1-[address] [facility] [address] [facility] When Within 1-2 days Why: [facility] RN for IV infusion and wound care. They will call you before coming out to the home. Call them with any questions at [phone] Follow Up with MUNIR NICKERSON DO When Within 1-2 days Why: Please call the office to schedule a follow-up appointment Where: [facility] [place] [address]- Follow Up with HOME MEDS - Patient had home medication brought in. Please send home with patient upon discharge. When Within 1-2 days Where: Follow Up Appointments No qualifying data available. Follow Up Labs/Studies Discharge Labs No Follow-up Labs Discharge Studies No Follow-up Studies Discharge Diet Discharge Diet - Ordered -- No changes were made to your diet during your hospital stay. Please resume your pre hospitalization diet on discharge., 04/10/23 16:11:00 EST Discharge Activity Discharge Activity - Ordered -- NO activity restrictions, 04/10/23 16:11:00 EST Condition on Discharge stable, improved Discharge Disposition home Information Provided To patient Time Spent >35 min split/shared visit with Dr. Poe Digitally Signed by MARTHA PACE on 04/10/2023 04:[address] [facility] 04-10-2023 Procedure note VASCULAR ACCESS TEAMPOST PROCEDURE NOTE PROCEDURE: Peripherally Inserted Central Catheter (PICC) INDICATION:_ Long-term Antibiotics DETAILS: Consult for PICC placement received. Chart reviewed. Informed consent was obtained and verified prior to the procedure. A pre-procedure Time Out was performed confirming correct patient and procedure. A 5 Fr. Double Lumen PICC was inserted at bedside under sterile technique. Vascular access was obtained with ultrasound guidance. PICC flushes easily with good blood return. Patient tolerated placement of PICC well. PICC education provided. ANESTHESIA: Local subcutaneous injection using2 mL 1% Lidocaine ACCESS VESSEL:_ RightBrachial CATHETER LENGTH:_ 38cm INTERNAL LENGTH:38 cm EXTERNAL LENGTH:0cm ARM CIRC:_26cm LOT #:[id number] COMPLICATIONS: None INSERTED BY: Janelle Remy RN, assisted by Raheem Valera RN PLAN:_ PICC placement confirmed in lower SVC per ECG technology with Maximum P wave and absence of negative deflection/ Flushes easily with good blood return. Okay to use PICC now. Primary RN notified. Digitally Signed by CARL Remy on 04/10/2023 01:[address] [facility] 04-10-2023 Infectious disease Progress note Date of Service 04/10/2023 Objective Vitals and Measurements T: 36.2 C (Oral) TMIN: 36 C (Axillary) TMAX: 37.0 C (Axillary) HR: 68 RR: 16 BP: 96/64 SpO2: 97% Physical Exam Chart reviewed, patient examined. Patient is alert and oriented x3, appears mildly anxious but FSC, resting in bed watching TV. No c/o NVD, ostomy noted with formed stools. Reports NV from admission has resolved at this time. Denies SOB, reports occasional cough. Denies chills or sweats. Reports ongoing right hip tenderness, unchanged. Denies left hip pain at this time. Reports RLE spasms this morning that are causing her some discomfort. No other new complaints this AM. Respirations easy and nonlabored, 97% on RA. Patient has remained afebrile for the last 24 hours. ESR 30 SGPT 19.1 SARS COVID negative Flu A/B negative RSV negative Vanco Trough 17.8 FOCUSED ASSESSMENT: CVS: Regular S1S2, NSR on monitor LUNGS: Clear bilaterally, denies SOB, occasional cough, on RA ABDOMEN: Rounded, semifirm, nontender, hypoactive bowel sounds, ostomy in place SKIN: No rashes noted, bilateral hip stage 4 pressure injuries-covered in ABD dressings INCISIONS/DRESSINGS: Suprapubic Pandey gauze dressing clean and intact, bilateral hip ABD dressings clean and intact EXTREMITIES: BLE weakness, BLE numbness/tingling, RLE spasms, generalized weakness LINES/TUBES/DRAINS: ONI IV dressing dry & intact, no drainage or erythema at site. Suprapubic Pandey with yellow urine to bag. Ostomy with formed stool noted to bag. CURRENT ANTIBIOTICS: Vanco 1g IV Q12h 04/05 - 04/07 Zosyn 3.375g IV x1 04/07 Cephalexin 500mg PO TID 04/07 - 04/09 Hiprex 1g PO BID 04/05 - present Meropenem 1g IV Q8h 04/08 - present CULTURE RESULTS/COLTON: 04/05 Wound Culture Aerobic (hip) -F Moderate Pseudomonas aeruginosa Moderate Normal skin lala present 04/05 Wound Culture Aerobic (buttock) -F Light Staphylococcus aureus 04/05 Urine Culture -F 1,000 cfu/ml Staphylococcus aureus 1,000 cfu/ml Kayley albicans 04/06 Blood Cultures 04/17 no growth to date -P Weight Dosing Weight: 57.6 kg (04/08/23) Dosing Weight: 57.6 kg (04/06/23) Medications Medications (19) Active Scheduled: (11) baclofen 10 mg tablet 20 mg 2 tab(s), Oral, q4hr dalfampridine 10 mg ER tablet 10 mg 1 tab(s), Oral, q12h docusate-senna (Senokot S) 50 mg-8.6 mg Tablet 2 tab(s), Oral, qHS heparin 5,000 units/mL (1 mL) vial 5,000 unit(s) 1 mL, Subcutaneous, q8h lidocaine 1% (MPF) 2 mL vial pf 30 mg 3 mL, Intradermal, prep pharm meropenem 1,000 mg, IV Piggyback, q8h methenamine hippurate 1 gm tablet 1 gram(s) 1 tab(s), Oral, BID Misc communication order Home Med Verified, Miscellaneous, qDay Pharmacy Consult 1 EA, Miscellaneous, Daily polyethylene glycol 3350 - UD packet 17 gram(s) 15 mL, Oral, qDay sodium hypochlorite topical 0.5% Soln 1 kyle, Topical, BID Continuous: (0) PRN: (8) acetaminophen 325 mg Tablet 650 mg 2 tab(s), Oral, q4h acetaminophen 325 mg Tablet 650 mg 2 tab(s), Oral, q4h acetaminophen-HYDROcodone 325-5 mg tablet 1 tab(s), Oral, q4h albuterol - ipratropium 2.5 mg-0.5 mg/3 mL Inhal Lea UD 3 mL, Inhalation, q4hRT dextrose 50% Solution Disp syringe 50 mL 12.5 gram(s) 25 mL, IV Push, AsDirected melatonin 3 mg tablet 3 mg 1 tab(s), Oral, qHS ondansetron 2 mg/ 1 mL 2 mL INJ 4 mg 2 mL, IV Push, q4h prochlorperazine 10 mg tablet 5 mg 0.5 tab(s), Oral, TID Lab Results No 36 Hour Lab Data Imaging Results and Diagnostics XR Chest 1 View Result Date: April 07, 2023 Verified By: GURJIT DEL VALLE MD CLINICAL STATEMENT: IMPRESSION: Hazy bilateral mid and lower lung opacities and mild diffuse interstitialprominence. Consider pulmonary edema versus infection/inflammation. Small left pleural effusion. I have personally reviewed the images of this examination and agree with theresident's findings and interpretation. CT Abd/Pelvis w/ IV Contrast Only Result Date: April 05, 2023 Verified By: SEVERIANO MARRERO, JUNO Veloz CLINICAL STATEMENT: IMPRESSION: Right ischial decubitus ulcer with osteomyelitis of the right ischium. Cholelithiasis without evidence of cholecystitis. Suprapubic catheter in place. There is a 5 mm stone in the urinary bladder. Small amount of free fluid in the pelvis. Left lower quadrant colostomy with no sign of complication. Problem List Left hip stage IV ulceration Right hip stage IV ulceration Right ischial tuberosity stage IV History of MS Bedridden Chronic suprapubic catheter-neurogenic bladder Osteomyelitis of the right ischium Bladder stone Digitally Signed by Katty Turcios RN on 04/10/2023 11:[address] [facility] 04-10-2023 Note . MICRO - Microbiology PROCEDURE: Culture Wound Aerobic with Gram Stain [*1] SOURCE: Ulcer BODY SITE: Buttock COLLECTED DATE/TIME: 04/05/2023 23:08 EST RECEIVED DATE/TIME: 04/06/2023 07:27 EST START DATE/TIME: 04/06/2023 07:28 EST FREE TEXT SOURCE: FINAL REPORTS Final Report [] Verified Date/Time/Personnel: 04/10/2023 09:52 EST Light Staphylococcus aureus PRELIMINARY REPORTS Preliminary Report [] Verified Date/Time/Personnel: 04/08/2023 08:24 EST Light Staphylococcus aureus OCLTON to follow Preliminary Report [] Verified Date/Time/Personnel: 04/07/2023 10:03 EST Culture results pending. STAINS GS [] Verified Date/Time/Personnel: 04/06/2023 10:37 EST 4+ Polymorphonuclear cells Rare Gram Negative Cocci Rare Gram Positive Cocci SUSCEPTIBILITY RESULTS Staphylococcus aureus Antibiotic COLTON Dilut COLTON Inter Ampicillin/ <=8/4 Susceptible Sulbactam Azithromycin <=2 Susceptible Cefepime <=4 Susceptible Cefotaxime <=8 Susceptible Ceftaroline <=0.5 Susceptible Ceftriaxone <=4 Susceptible Ciprofloxacin <=1 Susceptible Clindamycin <=0.25 Susceptible Erythromycin <=0.25 Susceptible Imipenem <=4 Susceptible Levofloxacin <=1 Susceptible Meropenem <=2 Susceptible Oxacillin <=0.25 Susceptible Penicillin <=0.03 Susceptible Piperacillin/ <=8 Susceptible Tazobactam Tetracycline <=4 Susceptible Trimethoprim/ <=0.5/9.5 Susceptible Sulfa Vancomycin 1 Susceptible Performing Locations *1: This test was performed at: [facility], [address] [place] [address], [id number] , Replaced by [facility] ([place]) 04-10-2023 Infectious disease Progress note Date of Service 04/10/2023 Objective Vitals and Measurements T: 36.2 C (Oral) TMIN: 36 C (Axillary) TMAX: 37.0 C (Axillary) HR: 68 RR: 16 BP: 96/64 SpO2: 97% Physical Exam Chart reviewed, patient examined. Patient is alert and oriented x3, appears mildly anxious but FSC, resting in bed watching TV. No c/o NVD, ostomy noted with formed stools. Reports NV from admission has resolved at this time. Denies SOB, reports occasional cough. Denies chills or sweats. Reports ongoing right hip tenderness, unchanged. Denies left hip pain at this time. Reports RLE spasms this morning that are causing her some discomfort. No other new complaints this AM. Respirations easy and nonlabored, 97% on RA. Patient has remained afebrile for the last 24 hours. ESR 30 SGPT 19.1 SARS COVID negative Flu A/B negative RSV negative Vanco Trough 17.8 FOCUSED ASSESSMENT: CVS: Regular S1S2, NSR on monitor LUNGS: Clear bilaterally, denies SOB, occasional cough, on RA ABDOMEN: Rounded, semifirm, nontender, hypoactive bowel sounds, ostomy in place SKIN: No rashes noted, bilateral hip stage 4 pressure injuries-covered in ABD dressings INCISIONS/DRESSINGS: Suprapubic Pandey gauze dressing clean and intact, bilateral hip ABD dressings clean and intact EXTREMITIES: BLE weakness, BLE numbness/tingling, RLE spasms, generalized weakness LINES/TUBES/DRAINS: ONI IV dressing dry & intact, no drainage or erythema at site. Suprapubic Pandey with yellow urine to bag. Ostomy with formed stool noted to bag. CURRENT ANTIBIOTICS: Vanco 1g IV Q12h 04/05 - 04/07 Zosyn 3.375g IV x1 04/07 Cephalexin 500mg PO TID 04/07 - 04/09 Hiprex 1g PO BID 04/05 - present Meropenem 1g IV Q8h 04/08 - present CULTURE RESULTS/COLTON: 04/05 Wound Culture Aerobic (hip) -F Moderate Pseudomonas aeruginosa Moderate Normal skin lala present 04/05 Wound Culture Aerobic (buttock) -F Light Staphylococcus aureus 04/05 Urine Culture -F 1,000 cfu/ml Staphylococcus aureus 1,000 cfu/ml Kayley albicans 04/06 Blood Cultures 04/17 no growth to date -P Weight Dosing Weight: 57.6 kg (04/08/23) Dosing Weight: 57.6 kg (04/06/23) Medications Medications (19) Active Scheduled: (11) baclofen 10 mg tablet 20 mg 2 tab(s), Oral, q4hr dalfampridine 10 mg ER tablet 10 mg 1 tab(s), Oral, q12h docusate-senna (Senokot S) 50 mg-8.6 mg Tablet 2 tab(s), Oral, qHS heparin 5,000 units/mL (1 mL) vial 5,000 unit(s) 1 mL, Subcutaneous, q8h lidocaine 1% (MPF) 2 mL vial pf 30 mg 3 mL, Intradermal, prep pharm meropenem 1,000 mg, IV Piggyback, q8h methenamine hippurate 1 gm tablet 1 gram(s) 1 tab(s), Oral, BID Misc communication order Home Med Verified, Miscellaneous, qDay Pharmacy Consult 1 EA, Miscellaneous, Daily polyethylene glycol 3350 - UD packet 17 gram(s) 15 mL, Oral, qDay sodium hypochlorite topical 0.5% Soln 1 kyle, Topical, BID Continuous: (0) PRN: (8) acetaminophen 325 mg Tablet 650 mg 2 tab(s), Oral, q4h acetaminophen 325 mg Tablet 650 mg 2 tab(s), Oral, q4h acetaminophen-HYDROcodone 325-5 mg tablet 1 tab(s), Oral, q4h albuterol - ipratropium 2.5 mg-0.5 mg/3 mL Inhal Lea UD 3 mL, Inhalation, q4hRT dextrose 50% Solution Disp syringe 50 mL 12.5 gram(s) 25 mL, IV Push, AsDirected melatonin 3 mg tablet 3 mg 1 tab(s), Oral, qHS ondansetron 2 mg/ 1 mL 2 mL INJ 4 mg 2 mL, IV Push, q4h prochlorperazine 10 mg tablet 5 mg 0.5 tab(s), Oral, TID Lab Results No 36 Hour Lab Data Imaging Results and Diagnostics XR Chest 1 View Result Date: April 07, 2023 Verified By: GURJIT DEL VALLE MD CLINICAL STATEMENT: IMPRESSION: Hazy bilateral mid and lower lung opacities and mild diffuse interstitialprominence. Consider pulmonary edema versus infection/inflammation. Small left pleural effusion. I have personally reviewed the images of this examination and agree with theresident's findings and interpretation. CT Abd/Pelvis w/ IV Contrast Only Result Date: April 05, 2023 Verified By: SEVERIANO MARRERO, JUNO Veloz CLINICAL STATEMENT: IMPRESSION: Right ischial decubitus ulcer with osteomyelitis of the right ischium. Cholelithiasis without evidence of cholecystitis. Suprapubic catheter in place. There is a 5 mm stone in the urinary bladder. Small amount of free fluid in the pelvis. Left lower quadrant colostomy with no sign of complication. Problem List Left hip stage IV ulceration Right hip stage IV ulceration Right ischial tuberosity stage IV History of MS Bedridden Chronic suprapubic catheter-neurogenic bladder Osteomyelitis of the right ischium Bladder stone Digitally Signed by Katty Turcios RN on 04/10/2023 11:[address] [facility] 04-10-2023 Note . MICRO - Microbiology PROCEDURE: Urine Culture [*1] SOURCE: Urine, Straight BODY SITE: Catherized COLLECTED DATE/TIME: 04/05/2023 23:51 EST RECEIVED DATE/TIME: 04/06/2023 20:55 EST START DATE/TIME: 04/06/2023 20:55 EST FREE TEXT SOURCE: FINAL REPORTS Final Report [] Verified Date/Time/Personnel: 04/10/2023 08:45 EST 1,000 cfu/ml Staphylococcus aureus 1,000 cfu/ml Kayley albicans Contact Microbiology within 72 hours if further identification is indicated ([id number]). [place] counts from a single urine are equivocal in determining infection vs. colonization of yeast. Multiple cultures at least 24 hours apart may be helpful in differentiating colonization from infection. PRELIMINARY REPORTS Preliminary Report [] Verified Date/Time/Personnel: 04/09/2023 08:45 EST 1,000 cfu/ml Staphylococcus aureus COLTON to follow 1,000 cfu/ml Kayley albicans Contact Microbiology within 72 hours if further identification is indicated ([id number]). [place] counts from a single urine are equivocal in determining infection vs. colonization of yeast. Multiple cultures at least 24 hours apart may be helpful in differentiating colonization from infection. Preliminary Report [] Verified Date/Time/Personnel: 04/07/2023 10:04 EST No growth to date SUSCEPTIBILITY RESULTS Staphylococcus aureus Antibiotic COLTON Dilut COLTON Inter Ampicillin 8 Beta Lactamase Positive Ampicillin/ <=8/4 Susceptible Sulbactam Azithromycin <=2 Susceptible Cefepime <=4 Susceptible Ceftaroline <=0.5 Susceptible Ciprofloxacin <=1 Susceptible Imipenem <=4 Susceptible Levofloxacin <=1 Susceptible Nitrofurantoin <=32 Susceptible Oxacillin 0.5 Susceptible Penicillin >2 Beta Lactamase Positive Piperacillin/ <=8 Susceptible Tazobactam Trimethoprim/ <=0.5/9.5 Susceptible Sulfa Vancomycin 1 Susceptible MICRO - Microbiology SUSCEPTIBILITY RESULTS Kayley albicans Antibiotic COLTON Dilut COLTON Inter ID Panel Not Not Applicable Applicable Performing Locations *1: This test was performed at: [facility], [address] [place] [address], [id number] , Replaced by [facility] ([place]) 04-09-2023 Infectious disease Progress note Date of Service April 09, 2023 Chief Complaint Ischial wound infection Pelvic pain Subjective Feels better Objective Vitals and Measurements T: 37.0 C (Axillary) TMIN: 36.4 C (Axillary) TMAX: 37.5 C (Axillary) HR: 60 RR: 16 BP: 94/60 SpO2: 97% HT: 170 cm WT: 57.6 kg BMI: 19.93 Intake and Output 7AM Yesterday to 7AM Today Intake and Output (Last 24 hours) Intake Oral Intake 1200.00 Output Urinary Catheter Output: 3425.00 Total Summary Total Intake 1200.00 Total Output 3425.00 Fluid Balance -2225.00 Physical Exam Awake alert oriented Lungs are clear Heart is regular rhythm Abdomen soft with no tenderness Bilateral pelvic and ischial wounds without acute changes No acute neurodeficits Weight Dosing Weight: 57.6 kg (04/08/23) Dosing Weight: 57.6 kg (04/06/23) Medications Medications (19) Active Scheduled: (11) baclofen 10 mg tablet 20 mg 2 tab(s), Oral, q4hr cephalexin monohydrate 500 mg Capsule 500 mg 1 cap(s), Oral, TID dalfampridine 10 mg ER tablet 10 mg 1 tab(s), Oral, q12h docusate-senna (Senokot S) 50 mg-8.6 mg Tablet 2 tab(s), Oral, qHS heparin 5,000 units/mL (1 mL) vial 5,000 unit(s) 1 mL, Subcutaneous, q8h meropenem 1,000 mg, IV Piggyback, q8h methenamine hippurate 1 gm tablet 1 gram(s) 1 tab(s), Oral, BID Misc communication order Home Med Verified, Miscellaneous, qDay Pharmacy Consult 1 EA, Miscellaneous, Daily polyethylene glycol 3350 - UD packet 17 gram(s) 15 mL, Oral, qDay sodium hypochlorite topical 0.5% Soln 1 kyle, Topical, BID Continuous: (0) PRN: (8) acetaminophen 325 mg Tablet 650 mg 2 tab(s), Oral, q4h acetaminophen 325 mg Tablet 650 mg 2 tab(s), Oral, q4h acetaminophen-HYDROcodone 325-5 mg tablet 1 tab(s), Oral, q4h albuterol - ipratropium 2.5 mg-0.5 mg/3 mL Inhal Lea UD 3 mL, Inhalation, q4hRT dextrose 50% Solution Disp syringe 50 mL 12.5 gram(s) 25 mL, IV Push, AsDirected melatonin 3 mg tablet 3 mg 1 tab(s), Oral, qHS ondansetron 2 mg/ 1 mL 2 mL INJ 4 mg 2 mL, IV Push, q4h prochlorperazine 10 mg tablet 5 mg 0.5 tab(s), Oral, TID Lab Results 04/08 05:29 Glucose Level: 99 Sodium Level: 141 Potassium Level: 4.2 BUN: 6.0 L Creatinine Lvl (s): 0.32 L Imaging Results and Diagnostics XR Chest 1 View Result Date: April 07, 2023 Verified By: GURJIT DEL VALLE MD CLINICAL STATEMENT: IMPRESSION: Hazy bilateral mid and lower lung opacities and mild diffuse interstitialprominence. Consider pulmonary edema versus infection/inflammation. Small left pleural effusion. I have personally reviewed the images of this examination and agree with theresident's findings and interpretation. CT Abd/Pelvis w/ IV Contrast Only Result Date: April 05, 2023 Verified By: SEVERIANO MARRERO, JUNO Veloz CLINICAL STATEMENT: IMPRESSION: Right ischial decubitus ulcer with osteomyelitis of the right ischium. Cholelithiasis without evidence of cholecystitis. Suprapubic catheter in place. There is a 5 mm stone in the urinary bladder. Small amount of free fluid in the pelvis. Left lower quadrant colostomy with no sign of complication. EKG No qualifying data available. Assessment/Plan MS (multiple sclerosis) Osteomyelitis MS (multiple sclerosis) Osteomyelitis Left hip stage IV ulceration Right hip stage IV ulceration Right ischial tuberosity stage IV History of MS Bedridden Chronic suprapubic catheter-neurogenic bladder Osteomyelitis of the right ischium Bladder stone This is a 57-year-old female with history of MS wheelchair dependent, suprapubic catheter given her neurogenic bladder and multiple decubitus ulcers who presented to [place] [facility] due to concern of fevers and foul-smelling drainage from her wound. She was recently discharged from [facility] and placed on 10 days of cefepime per H&P records. The patient was started on IV vancomycin and Zosyn and admitted for further workup and evaluation. ID has been consulted for antimicrobial management for the above. Plastics has evaluated the patient, plan is for Dakins solution. Skin care team is following for local wound care. Plastic surgery is recommending follow-up outpatient the wound care center Patient was noted to be febrile yesterday, fevers have improved today. No leukocytosis CT scan of the abdomen pelvis revealed right ischial osteomyelitis and bladder stone Blood culture showed no growth to date Urine culture is pending Wound cultures revealed methicillin sensitive Staph aureus that was identified at outside facility as well as Pseudomonas species, I adjusted antibiotic therapy to meropenem and PICC line was ordered after lengthy discussion with patient and her caregiver, they were made aware of potential risk and benefit of this approach and potential risks associated with PICC line placement Discussed with microbiology lab, await final staff aureus sensitivity tomorrow and will adjust treatment plan accordingly, we will plan on 6 to 8 weeks of antibiotic therapy and close follow-up as an outpatient Discussed potential side effect of antibiotic therapy and ways of infection control infection prevention Discussed with team and nursing staff and caregiver at length Will follow Orders: meropenem, Start: 04/08/23 16:58:00 EST, Dose = 1,000 mg, IV Piggyback, q8h, Rate: 16.67 mL/hr, Infuse over: 3 hour(s), 0, 04/08/23 16:58:00 EST Digitally Signed by HECTOR CARDENAS BA, MD on 04/09/2023 04:[address] [facility] 04-09-2023 Note Date of Service 04.09.23 Chief Complaint constipation, + wound cx Subjective Is a 57-year-old female with a past medical history of MS, wheelchair dependent, suprapubic catheter for neurogenic bladder, decubitus ulcerations, history of breast cancer admitted with fever. Had worsening weakness at home. Continues to have low-grade fevers. Being followed by infectious disease, felt to have osteomyelitis related to her decubitus ulcer. Antibiotics were changed to Keflex. Neurology saw the patient during her stay and felt that she had a pseudo flare of her MS. Blood pressure has been running low but improving. Episode recently of increased oxygen demands, chest x-ray showed pulmonary edema, IV fluids were discontinued and Lasix was given. She was negative for COVID, flu, RSV. Patient had been given fluid boluses for hypotension. She is doing well on room air. She complains of constipation, additional meds given yesterday without effect. Hip wound culture came back late yesterday positive for pseudomonas. She was started on IV antibiotics by ID. Objective Vitals and Measurements T: 37.0 C (Axillary) TMIN: 36.4 C (Axillary) TMAX: 37.5 C (Axillary) HR: 60 RR: 16 BP: 94/60 SpO2: 97% HT: 170 cm WT: 57.6 kg BMI: 19.93 Intake and Output 7AM Yesterday to 7AM Today Intake and Output (Last 24 hours) Intake Oral Intake 1200.00 Output Urinary Catheter Output: 3425.00 Total Summary Total Intake 1200.00 Total Output 3425.00 Fluid Balance -2225.00 Physical Exam Weight Dosing Weight: 57.6 kg (04/08/23) Dosing Weight: 57.6 kg (04/06/23) Vitals Signs(Last 24 hrs)__ Last Charted Minimum Maximum Temp H 37.0(APR 09 14:50) H 36.8(APR 08 16:00) H 37.5(APR 08 22:20) Heart Rate 68(APR 08 16:00) 68(APR 08 16:00) 68(APR 08 16:00) SBP 94(APR 09 14:50) 90(APR 09 06:53) 107(APR 09 06:01) DBP 60(APR 09 14:50) L 54(APR 09 04:19) 78(APR 08 16:00) Physical Exam General: No acute distress. Alert and Appropriate Skin: No rash. Warm, Dry, decub ulcer Lungs: Bilaterally clear breath sounds with no crepitation or wheeze. Cardiovascular: Heart is regular rhythm, S1S2, No extra-audible heart tones Abdomen: Abdomen is soft, nontender. Bowel sounds positive all four quadrants. No hepatosplenomegaly noted. Extremities: No clubbing, cyanosis or edema. Neurological: The patient is awake, oriented to person, place and time. Following simple commands, moving all extremities. Medications Medications (19) Active Scheduled: (11) baclofen 10 mg tablet 20 mg 2 tab(s), Oral, q4hr cephalexin monohydrate 500 mg Capsule 500 mg 1 cap(s), Oral, TID dalfampridine 10 mg ER tablet 10 mg 1 tab(s), Oral, q12h docusate-senna (Senokot S) 50 mg-8.6 mg Tablet 2 tab(s), Oral, qHS heparin 5,000 units/mL (1 mL) vial 5,000 unit(s) 1 mL, Subcutaneous, q8h meropenem 1,000 mg, IV Piggyback, q8h methenamine hippurate 1 gm tablet 1 gram(s) 1 tab(s), Oral, BID Misc communication order Home Med Verified, Miscellaneous, qDay Pharmacy Consult 1 EA, Miscellaneous, Daily polyethylene glycol 3350 - UD packet 17 gram(s) 15 mL, Oral, qDay sodium hypochlorite topical 0.5% Soln 1 kyle, Topical, BID Continuous: (0) PRN: (8) acetaminophen 325 mg Tablet 650 mg 2 tab(s), Oral, q4h acetaminophen 325 mg Tablet 650 mg 2 tab(s), Oral, q4h acetaminophen-HYDROcodone 325-5 mg tablet 1 tab(s), Oral, q4h albuterol - ipratropium 2.5 mg-0.5 mg/3 mL Inhal Lea UD 3 mL, Inhalation, q4hRT dextrose 50% Solution Disp syringe 50 mL 12.5 gram(s) 25 mL, IV Push, AsDirected melatonin 3 mg tablet 3 mg 1 tab(s), Oral, qHS ondansetron 2 mg/ 1 mL 2 mL INJ 4 mg 2 mL, IV Push, q4h prochlorperazine 10 mg tablet 5 mg 0.5 tab(s), Oral, TID Lab Results 04/08 05:29 Glucose Level: 99 Sodium Level: 141 Potassium Level: 4.2 BUN: 6.0 L Creatinine Lvl (s): 0.32 L EKG No qualifying data available. Assessment/Plan 1. Osteomyelitis 2. MS (multiple sclerosis) ID following, discussed with them today, plan was for keflex for 6 weeks, but hip culture back today showing pseudomonas, IV antibiotics added and will be going home with PICC and IV antibiotics, probable ready for discharge tomorrow if PICC can be placed and home care arranged BP improving. IV fluids stopped and had some lasix, hypoxia resolved. Bowel meds added. split/shared visit with Dr. Adamson Orders: polyethylene glycol 3350, Start: 04/09/23 15:24:00 EST, Dose = 17 gram(s), = 15 mL, Oral, qDay, 04/09/23 15:24:00 EST Digitally Signed by MARTHA PACE APRN-ARACELIS on 04/09/2023 04:[address] [facility] 04-09-2023 Note . MICRO - Microbiology PROCEDURE: Culture Wound Aerobic with Gram Stain [*1] SOURCE: Ulcer BODY SITE: Hip COLLECTED DATE/TIME: 04/05/2023 23:07 EST RECEIVED DATE/TIME: 04/06/2023 07:28 EST START DATE/TIME: 04/06/2023 07:28 EST FREE TEXT SOURCE: FINAL REPORTS Final Report [] Verified Date/Time/Personnel: 04/09/2023 09:17 EST Moderate Pseudomonas aeruginosa Moderate Normal skin lala present. Sensitivity testing not indicated. PRELIMINARY REPORTS Preliminary Report [] Verified Date/Time/Personnel: 04/08/2023 12:25 EST Moderate Pseudomonas aeruginosa COLTON to follow Moderate Normal skin lala present. Sensitivity testing not indicated. Preliminary Report [] Verified Date/Time/Personnel: 04/07/2023 10:05 EST Culture results pending. STAINS GS [] Verified Date/Time/Personnel: 04/06/2023 10:36 EST 1+ Epithelial cells 1+ Gram Positive Rods SUSCEPTIBILITY RESULTS Pseudomonas aeruginosa Antibiotic COLTON Dilut COLTON Inter Aztreonam 8 Susceptible Cefepime 8 Susceptible Ceftazidime 4 Susceptible ID Panel Not Not Applicable Applicable Imipenem 2 Susceptible Levofloxacin >4 Resistant Meropenem <=1 Susceptible Piperacillin/ <=8 Susceptible Tazobactam Tobramycin <=2 Susceptible Performing Locations *1: This test was performed at: [address], [facility] , Replaced by [facility] ([place]) 04-09-2023 Procedure note Date of Service April 09, 2023 Procedure Name Excisional debridement pressure ulcer right ischial area stage IV Consent Previously obtained Indication Patient has developed a pressure ulcer on the right ischial area which is stage IV measuring about 3 x 3 cm extending up to the bone. Patient has a history of multiple sclerosis and she is unable to move herself and presently she is bedridden and wheelchair-bound Location Right ischial area Pre-Procedure Exam Pressure ulcer in the right ischial area measuring about 3 x 3 cm with a depth of about 2 cm with some slough and necrotic tissue present Technique Patient was turned over to the lateral side area was thoroughly cleansed using sharp curette #7 excisional debridement the skin and subcutaneous tissue was carried out all the slough and necrotic tissues were removed as some clean healthy bleeding surfaces were obtained. Wound was then packed with Dakin solution moist gauze dressings. Post-Procedure Exam Wound appeared fairly clean Complications None Total Time 20 minutes Assessment/Plan MS (multiple sclerosis) Osteomyelitis Continue dressings with Aquacel Ag which she is discharged home she has some assistance and help at home and they can follow her fairly well and I can follow her back at the wound center after discharge Digitally Signed by MAXIMINO JOY MD on 04/09/2023 10:[address] [facility] 04-08-2023 Note Date of Service 04.08.23 Chief Complaint hypoxia Subjective Is a 57-year-old female with a past medical history of MS, wheelchair dependent, suprapubic catheter for neurogenic bladder, decubitus ulcerations, history of breast cancer admitted with fever. Had worsening weakness at home. Continues to have low-grade fevers. Being followed by infectious disease, felt to have osteomyelitis related to her decubitus ulcer. Antibiotics were changed to Keflex. Neurology saw the patient during her stay and felt that she had a pseudo flare of her MS. Blood pressure has been running low but improved today. Episode last night of increased oxygen demands, chest x-ray showed pulmonary edema, IV fluids were discontinued and Lasix was given. She was negative for COVID, flu, RSV. Patient had been given fluid boluses yesterday for hypotension. She actually was doing well on room air today during my assessment. She complains of constipation, states she has not moved her bowels in a few days. Patient reports her urine culture from [facility] showed Klebsiella so she is concerned about this. Objective Vitals and Measurements T: 36.8 C (Axillary) TMIN: 36.0 C (Axillary) TMAX: 37.9 C (Axillary) HR: 68(Apical) RR: 18 BP: 104/78 SpO2: 95% Intake and Output 7AM Yesterday to 7AM Today Intake and Output (Last 24 hours) Intake Oral Intake 350.00 Output Urinary Catheter Output: 5425.00 Ostomy Stool Volume: 0.00 Stool Count 0.00 Total Summary Total Intake 350.00 Total Output 5425.00 Fluid Balance -5075.00 Physical Exam Weight Dosing Weight: 57.6 kg (04/06/23) Dosing Weight: 57.6 kg (04/05/23) Vitals Signs(Last 24 hrs)__ Last Charted Minimum Maximum Temp H 36.8(APR 08 16:00) H 36.8(APR 07 23:08) H 37.9(APR 07 19:15) Heart Rate 68(APR 08 16:00) 68(APR 08 16:00) 68(APR 08 16:00) SBP 104(APR 08 16:00) L 89(APR 08 11:00) 109(APR 07 19:15) DBP 78(APR 08 16:00) L 53(APR 08 08:05) 78(APR 08 16:00) Physical Exam General: No acute distress. Alert and Appropriate Skin: No rash. Warm, Dry, decub ulcer Lungs: Bilaterally clear breath sounds with no crepitation or wheeze. Cardiovascular: Heart is regular rhythm, S1S2, No extra-audible heart tones Abdomen: Abdomen is soft, nontender. Bowel sounds positive all four quadrants. No hepatosplenomegaly noted. Extremities: No clubbing, cyanosis or edema. Neurological: The patient is awake, oriented to person, place and time. Following simple commands, moving all extremities. Medications Medications (19) Active Scheduled: (11) baclofen 10 mg tablet 20 mg 2 tab(s), Oral, q4hr bisacodyl 5 mg EC tablet 10 mg 2 tab(s), Oral, Once cephalexin monohydrate 500 mg Capsule 500 mg 1 cap(s), Oral, TID dalfampridine 10 mg ER tablet 10 mg 1 tab(s), Oral, q12h docusate-senna (Senokot S) 50 mg-8.6 mg Tablet 2 tab(s), Oral, qHS heparin 5,000 units/mL (1 mL) vial 5,000 unit(s) 1 mL, Subcutaneous, q8h meropenem 1,000 mg, IV Piggyback, q8h methenamine hippurate 1 gm tablet 1 gram(s) 1 tab(s), Oral, BID Misc communication order Home Med Verified, Miscellaneous, qDay Pharmacy Consult 1 EA, Miscellaneous, Daily sodium hypochlorite topical 0.5% Soln 1 kyle, Topical, BID Continuous: (0) PRN: (8) acetaminophen 325 mg Tablet 650 mg 2 tab(s), Oral, q4h acetaminophen 325 mg Tablet 650 mg 2 tab(s), Oral, q4h acetaminophen-HYDROcodone 325-5 mg tablet 1 tab(s), Oral, q4h albuterol - ipratropium 2.5 mg-0.5 mg/3 mL Inhal Lea UD 3 mL, Inhalation, q4hRT dextrose 50% Solution Disp syringe 50 mL 12.5 gram(s) 25 mL, IV Push, AsDirected melatonin 3 mg tablet 3 mg 1 tab(s), Oral, qHS ondansetron 2 mg/ 1 mL 2 mL INJ 4 mg 2 mL, IV Push, q4h prochlorperazine 10 mg tablet 5 mg 0.5 tab(s), Oral, TID Lab Results 04/08 05:29 Glucose Level: 99 Sodium Level: 141 Potassium Level: 4.2 BUN: 6.0 L Creatinine Lvl (s): 0.32 L 04/07 05:31 WBC: 7.8 Hgb: 10.4 L Hct: 30.2 L Platelet: 150 Neutrophil %: 67.7 Glucose Level: 94 Sodium Level: 140 Potassium Level: 3.2 L BUN: 6.0 L Creatinine Lvl (s): 0.33 L EKG No qualifying data available. Assessment/Plan 1. Osteomyelitis 2. MS (multiple sclerosis) ID following, discussed with them today, plan was for keflex for 6 weeks, but hip culture back today showing pseudomonas, IV antibiotics added and will likley need IV for home. ID to see tomorrow to arrange. Discussed with them patient's concerns re: kelbsiellam urine cx. Requested report from [facility], although nothing on urine cx here, ID aware BP still slightly low but improving. IV fluids stopped and had some lasix, hypoxia resolved. Bowel meds added. split/shared visit with Dr. Adamson Orders: bisacodyl, Start: 04/08/23 16:45:00 EST, Dose = 10 mg, = 2 tab(s), Oral, Once, Stop: 04/08/23 16:45:00 EST, 0, 04/08/23 16:45:00 EST Digitally Signed by MARTHA PACE APRN-ORGANIC SECTION TECHNICAL LEAD on 04/08/2023 05:25 PM Digitally Signed by MARTHA PACE on 04/08/2023 05:[address] [facility] 04-08-2023 Infectious disease Progress note Hip wound cultures is revealing Pseudomonas species, will start the patient on meropenem pending sensitivity Digitally Signed by HECTOR CARDENAS BA, MD on 04/08/2023 04:[address] [facility] 04-08-2023 Progress note Date of Service 04/07/2023 Procedure Name Excisional debridement of the skin and subcutaneous tissue and muscle right ischial area Referring Provider Hospitalist Consent Previously obtained Indication Patient has a history of multiple sclerosis that she is bedridden and unable to move had developed pressure ulcers on the right ischial area patient had previously had ulcers on both trochanteric areas which are not healed. Location Right ischial area Pre-Procedure Exam The black necrotic's ulcerated area measuring about 3 cm in diameter with a depth of about 2 cm with slough present at the base Technique Using a sharp curette #7 excisional debridement the skin and subcutaneous tissues and the muscle was carried out wound area was cleansed all the way up to the bone minimal bleeding was encountered wound was then washed with normal saline and dressed with Dakin's solution packing. Post-Procedure Exam Appeared much furniture cleaner Complications None Estimated Blood Loss 35 cc Total Time 25 minutes Assessment/Plan MS (multiple sclerosis) Osteomyelitis Follow Up/Recommendation Continue with the Dakin's solution dressings for the time being at her discharge we can change her to Aquacel Ag. Digitally Signed by MAXIMINO JOY MD on 04/08/2023 11:[address] [facility] 04-08-2023 Note ORIGINAL EXAMINATION: ONE XRAY VIEW OF THE CHEST04/08/2023 12:02 am COMPARISON: 04/05/2023 HISTORY: ORDERING SYSTEM PROVIDED HISTORY: Reason for Exam: Shortness of breath FINDINGS: Unremarkable cardiomediastinal silhouette. There is no visible pneumothorax. Small left pleural effusion with adjacent atelectasis. No significant right pleural fluid. There are hazy opacities of the bilateral mid and lower lungs, as well as mild diffuse interstitial prominence. No acute osseous abnormality identified. There are surgical clips in the left axilla. IMPRESSION: Hazy bilateral mid and lower lung opacities and mild diffuse interstitial prominence. Consider pulmonary edema versus infection/inflammation. Small left pleural effusion. I have personally reviewed the images of this examination and agree with the resident's findings and interpretation. Interpreted by: Gurjit Del Valle MD Preliminary Report By: Sin Ocasio Electronically signed By Gurjit Del Valle MD Dictated Date: 04/08/2023 12:05:16 AM Prelim Date: 04/08/2023 12:08:49 AM Sign Date: 04/08/2023 12:16:29 AM Ordering Provider: [facility] 04-07-2023 Note Date of Service 04.07.23 Chief Complaint constipation Subjective 57-year-old F with PMH history of MS, wheelchair dependent, suprapubic catheter for neurogenic bladder, decubitus ulceration, history of breast cancer admitted with fever. Patient had worsening weakness at home. Patient reports when she developed a fever last night she again developed worsening weakness of her right arm and hand. She is being followed by infectious disease, felt to have osteomyelitis related to her decubitus ulcer. She is on vancomycin and Zosyn. Neurology saw the patient as well and felt that she had a pseudo flare. Again had a fever last night, blood pressure has still been running low in the 80s 90s/40s. Patient was symptomatic with lightheadedness and dizziness when she sat up in the bed this morning and also again when she sat up to try to eat some lunch. She is requesting bowel medications reports that she has not moved her bowels. Objective Vitals and Measurements T: 37.7 C (Axillary) TMIN: 36.6 C (Oral) TMAX: 38.8 C (Oral) HR: 66 RR: 18 BP: 104/72 SpO2: 90% Intake and Output 7AM Yesterday to 7AM Today Intake and Output (Last 24 hours) Intake Administration Information 488.75 Oral Intake 600.00 Output Urinary Catheter Output: 2700.00 Total Summary Total Intake 1088.75 Total Output 2700.00 Fluid Balance -1611.25 Physical Exam Weight Dosing Weight: 57.6 kg (04/06/23) Dosing Weight: 57.6 kg (04/05/23) Vitals Signs(Last 24 hrs)__ Last Charted Minimum Maximum Temp H 37.7(APR 07 16:34) H 36.8(APR 07 14:40) H 37.7(APR 07 16:34) SBP 104(APR 07 14:40) L 80(APR 07 03:47) 113(APR 06 19:30) DBP 72(APR 07 14:40) C 46(APR 07 03:47) 72(APR 07 14:40) Physical Exam General: No acute distress. Alert and Appropriate Skin: No rash. Warm, Dry, decub ulcer Lungs: Bilaterally clear breath sounds with no crepitation or wheeze. Cardiovascular: Heart is regular rhythm, S1S2, No extra-audible heart tones Abdomen: Abdomen is soft, nontender. Bowel sounds positive all four quadrants. No hepatosplenomegaly noted. Extremities: No clubbing, cyanosis or edema. Neurological: The patient is awake, oriented to person, place and time. Following simple commands, moving all extremities. DVT PROPHYLAXIS-heparin Medications Medications (18) Active Scheduled: (9) baclofen 10 mg tablet 20 mg 2 tab(s), Oral, q4hr cephalexin monohydrate 500 mg Capsule 500 mg 1 cap(s), Oral, TID dalfampridine 10 mg ER tablet 10 mg 1 tab(s), Oral, q12h docusate-senna (Senokot S) 50 mg-8.6 mg Tablet 2 tab(s), Oral, qHS heparin 5,000 units/mL (1 mL) vial 5,000 unit(s) 1 mL, Subcutaneous, q8h methenamine hippurate 1 gm tablet 1 gram(s) 1 tab(s), Oral, BID Misc communication order Home Med Verified, Miscellaneous, qDay Pharmacy Consult 1 EA, Miscellaneous, Daily sodium hypochlorite topical 0.5% Soln 1 kyle, Topical, BID Continuous: (1) Lactated Ringers 1,000 mL 1,000 mL, Intravenous, 100 mL/hr PRN: (8) acetaminophen 325 mg Tablet 650 mg 2 tab(s), Oral, q4h acetaminophen 325 mg Tablet 650 mg 2 tab(s), Oral, q4h acetaminophen-HYDROcodone 325-5 mg tablet 1 tab(s), Oral, q4h albuterol - ipratropium 2.5 mg-0.5 mg/3 mL Inhal Lea UD 3 mL, Inhalation, q4hRT dextrose 50% Solution Disp syringe 50 mL 12.5 gram(s) 25 mL, IV Push, AsDirected melatonin 3 mg tablet 3 mg 1 tab(s), Oral, qHS ondansetron 2 mg/ 1 mL 2 mL INJ 4 mg 2 mL, IV Push, q4h prochlorperazine 10 mg tablet 5 mg 0.5 tab(s), Oral, TID Lab Results 04/07 05:31 WBC: 7.8 Hgb: 10.4 L Hct: 30.2 L Platelet: 150 Neutrophil %: 67.7 Glucose Level: 94 Sodium Level: 140 Potassium Level: 3.2 L BUN: 6.0 L Creatinine Lvl (s): 0.33 L 04/06 04:43 WBC: 8.0 Hgb: 10.6 L Hct: 31.1 L Platelet: 167 Neutrophil %: 74.0 Glucose Level: 96 Sodium Level: 139 Potassium Level: 3.6 BUN: 9.0 Creatinine Lvl (s): 0.41 L EKG No qualifying data available. Assessment/Plan 1. Osteomyelitis 2. MS (multiple sclerosis) ID following, awaiting recommendations for home going. Still with fever last night and hypotension. Changed IV fluids to LR and added bolus. Potassium low, being replaced. repeat labs in am Bowel meds added. ensure added as patient reports she chronically has low albumin split/shared visit with Dr. Adamson Orders: docusate-senna, Start: 04/07/23 22:00:00 EST, Dose = 2 tab(s), Tab, Oral, qHS, 04/07/23 16:36:00 EST Lactated Ringers Infusion 1,000 mL, Start: 04/07/23 11:54:00 EST, Rate: 100 mL/hr, 04/07/23 11:54:00 EST prochlorperazine, Start: 04/07/23 16:34:00 EST, Dose = 5 mg, = 0.5 tab(s), Oral, TID, PRN, Nausea/Vomiting, 04/07/23 16:34:00 EST Digitally Signed by MARTHA PACE on 04/07/2023 04:[address] [facility] 04-07-2023 Note Date of Service 04.07.23 Chief Complaint constipation Subjective 57-year-old F with PMH history of MS, wheelchair dependent, suprapubic catheter for neurogenic bladder, decubitus ulceration, history of breast cancer admitted with fever. Patient had worsening weakness at home. Patient reports when she developed a fever last night she again developed worsening weakness of her right arm and hand. She is being followed by infectious disease, felt to have osteomyelitis related to her decubitus ulcer. She is on vancomycin and Zosyn. Neurology saw the patient as well and felt that she had a pseudo flare. Again had a fever last night, blood pressure has still been running low in the 80s 90s/40s. Patient was symptomatic with lightheadedness and dizziness when she sat up in the bed this morning and also again when she sat up to try to eat some lunch. She is requesting bowel medications reports that she has not moved her bowels. Objective Vitals and Measurements T: 37.7 C (Axillary) TMIN: 36.6 C (Oral) TMAX: 38.8 C (Oral) HR: 66 RR: 18 BP: 104/72 SpO2: 90% Intake and Output 7AM Yesterday to 7AM Today Intake and Output (Last 24 hours) Intake Administration Information 488.75 Oral Intake 600.00 Output Urinary Catheter Output: 2700.00 Total Summary Total Intake 1088.75 Total Output 2700.00 Fluid Balance -1611.25 Physical Exam Weight Dosing Weight: 57.6 kg (04/06/23) Dosing Weight: 57.6 kg (04/05/23) Vitals Signs(Last 24 hrs)__ Last Charted Minimum Maximum Temp H 37.7(APR 07 16:34) H 36.8(APR 07 14:40) H 37.7(APR 07 16:34) SBP 104(APR 07 14:40) L 80(APR 07 03:47) 113(APR 06 19:30) DBP 72(APR 07 14:40) C 46(APR 07 03:47) 72(APR 07 14:40) Physical Exam General: No acute distress. Alert and Appropriate Skin: No rash. Warm, Dry, decub ulcer Lungs: Bilaterally clear breath sounds with no crepitation or wheeze. Cardiovascular: Heart is regular rhythm, S1S2, No extra-audible heart tones Abdomen: Abdomen is soft, nontender. Bowel sounds positive all four quadrants. No hepatosplenomegaly noted. Extremities: No clubbing, cyanosis or edema. Neurological: The patient is awake, oriented to person, place and time. Following simple commands, moving all extremities. DVT PROPHYLAXIS-heparin Medications Medications (18) Active Scheduled: (9) baclofen 10 mg tablet 20 mg 2 tab(s), Oral, q4hr cephalexin monohydrate 500 mg Capsule 500 mg 1 cap(s), Oral, TID dalfampridine 10 mg ER tablet 10 mg 1 tab(s), Oral, q12h docusate-senna (Senokot S) 50 mg-8.6 mg Tablet 2 tab(s), Oral, qHS heparin 5,000 units/mL (1 mL) vial 5,000 unit(s) 1 mL, Subcutaneous, q8h methenamine hippurate 1 gm tablet 1 gram(s) 1 tab(s), Oral, BID Misc communication order Home Med Verified, Miscellaneous, qDay Pharmacy Consult 1 EA, Miscellaneous, Daily sodium hypochlorite topical 0.5% Soln 1 kyle, Topical, BID Continuous: (1) Lactated Ringers 1,000 mL 1,000 mL, Intravenous, 100 mL/hr PRN: (8) acetaminophen 325 mg Tablet 650 mg 2 tab(s), Oral, q4h acetaminophen 325 mg Tablet 650 mg 2 tab(s), Oral, q4h acetaminophen-HYDROcodone 325-5 mg tablet 1 tab(s), Oral, q4h albuterol - ipratropium 2.5 mg-0.5 mg/3 mL Inhal Lea UD 3 mL, Inhalation, q4hRT dextrose 50% Solution Disp syringe 50 mL 12.5 gram(s) 25 mL, IV Push, AsDirected melatonin 3 mg tablet 3 mg 1 tab(s), Oral, qHS ondansetron 2 mg/ 1 mL 2 mL INJ 4 mg 2 mL, IV Push, q4h prochlorperazine 10 mg tablet 5 mg 0.5 tab(s), Oral, TID Lab Results 04/07 05:31 WBC: 7.8 Hgb: 10.4 L Hct: 30.2 L Platelet: 150 Neutrophil %: 67.7 Glucose Level: 94 Sodium Level: 140 Potassium Level: 3.2 L BUN: 6.0 L Creatinine Lvl (s): 0.33 L 04/06 04:43 WBC: 8.0 Hgb: 10.6 L Hct: 31.1 L Platelet: 167 Neutrophil %: 74.0 Glucose Level: 96 Sodium Level: 139 Potassium Level: 3.6 BUN: 9.0 Creatinine Lvl (s): 0.41 L EKG No qualifying data available. Assessment/Plan 1. Osteomyelitis 2. MS (multiple sclerosis) ID following, awaiting recommendations for home going. Still with fever last night and hypotension. Changed IV fluids to LR and added bolus. Potassium low, being replaced. repeat labs in am Bowel meds added. ensure added as patient reports she chronically has low albumin split/shared visit with Dr. Adamson Orders: docusate-senna, Start: 04/07/23 22:00:00 EST, Dose = 2 tab(s), Tab, Oral, qHS, 04/07/23 16:36:00 EST Lactated Ringers Infusion 1,000 mL, Start: 04/07/23 11:54:00 EST, Rate: 100 mL/hr, 04/07/23 11:54:00 EST prochlorperazine, Start: 04/07/23 16:34:00 EST, Dose = 5 mg, = 0.5 tab(s), Oral, TID, PRN, Nausea/Vomiting, 04/07/23 16:34:00 EST Digitally Signed by MARTHA PACE on 04/07/2023 04:[address] [facility] 04-06-2023 Infectious disease Consult note Date of Service 04/06/23 Reason for Consultation Infected decubitus ulcer Referring Physician Dr Young History of Present Illness This is a 57-year-old with a past medical history of multiple sclerosis wheelchair dependent, suprapubic catheter for neurogenic bladder, chronic deep venous ulcer presented to [facility] due to concern for fevers. There is concern for infected sacral decubitus wounds with foul-smelling wounds and also leukocytosis 13,300 and fever. She was recently discharged for Pseudomonas UTI placed on 10 days of cefepime. Blood cultures and wound cultures were obtained. Given vancomycin and Zosyn. Given that he did not have plastic surgery wound care at the facility she has been transferred here for treatment. Also some concern for left-sided weakness from IMS on palpation she mentions that when she gets infections she does have issues with her MS. Per [facility] there was concern for soft blood pressure on presentation in the 90s but she did respond to IV fluids. She mentions this happens when she has an infection. She does mention that she has some baseline weakness from her multiple sclerosis on the right side but it feels weak and she cannot move it at all. ID has been consulted for antimicrobial recommendations. Review of Systems Ischial and pelvic wounds with discomfort otherwise 10 point review of systems negative Physical Exam Vitals and Measurements T: 36.7 C (Rectal) TMIN: 36.7 C (Rectal) TMAX: 39.1 C (Axillary) HR: 73 RR: 18 BP: 103/68 SpO2: 94% HT: 170 cm WT: 57.6 kg BMI: 19.93 Weight Dosing Weight: 57.6 kg (04/06/23) Dosing Weight: 57.6 kg (04/05/23) Suprapubic catheter in place draining patent On exam, the patient has a stage IV left hip ulceration, stage IV right hip ulceration and right ischial tuberosity ulceration General Appearance: Awake, alert, and oriented HEENT: Normocephaly. PERRL Neck: Normal without lymphadenopathy Cardiac: Heart regular rhythm Lungs: Clear Abdomen: Soft, non-tender, non-distended Extremities:Warm without clubbing, cyanosis or edema, please see above Neurological: No acute new neurologic deficits Skin: Warm, dry, intact. No rashes Psychiatric: No abnormal behaviors Lab Results 04/06 04:43 WBC: 8.0 Hgb: 10.6 L Hct: 31.1 L Platelet: 167 Neutrophil %: 74.0 Glucose Level: 96 Sodium Level: 139 Potassium Level: 3.6 BUN: 9.0 Creatinine Lvl (s): 0.41 L 04/05 21:25 WBC: 9.4 Hgb: 11.3 L Hct: 32.3 L Platelet: 179 Neutrophil %: 78.9 H Glucose Level: 107 Sodium Level: 137 Potassium Level: 3.8 BUN: 10.0 Creatinine Lvl (s): 0.35 L Imaging Results and Diagnostics CT Abd/Pelvis w/ IV Contrast Only Result Date: April 05, 2023 Verified By: SEVERIANO MARRERO, JUNO Veloz CLINICAL STATEMENT: IMPRESSION: Right ischial decubitus ulcer with osteomyelitis of the right ischium. Cholelithiasis without evidence of cholecystitis. Suprapubic catheter in place. There is a 5 mm stone in the urinary bladder. Small amount of free fluid in the pelvis. Left lower quadrant colostomy with no sign of complication. Assessment/Plan Left hip stage IV ulceration Right hip stage IV ulceration Right ischial tuberosity stage IV History of MS Bedridden Chronic suprapubic catheter-neurogenic bladder Osteomyelitis of the right ischium Bladder stone This is a 57-year-old female with history of MS wheelchair dependent, suprapubic catheter given her neurogenic bladder and multiple decubitus ulcers who presented to [facility] due to concern of fevers and foul-smelling drainage from her wound. She was recently discharged from Pseudomonas UTI and placed on 10 days of cefepime per H&P records. The patient was started on IV vancomycin and Zosyn and admitted for further workup and evaluation. ID has been consulted for antimicrobial management for the above. Plastics has evaluated the patient, plan is for Dakins solution. Skin care team is following for local wound care. Plastic surgery is recommending follow-up outpatient the wound care center Patient was noted to be febrile yesterday, fevers have improved today. No leukocytosis CT scan of the abdomen pelvis revealed right ischial osteomyelitis and bladder stone Blood culture showed no growth to date Urine culture is pending Wound cultures revealing gram-negative cocci, GPC and gram-positive rods Discussed the case at length with the patient, we discussed oral versus IV antibiotic therapy course, she admitted that her preference is to proceed with long-term oral antibiotic therapy if culture results allow, discussed the risk and benefit of this approach and potential side effects of antibiotic therapy, will follow culture results and adjust treatment accordingly Thank you for this consultation, will follow I was present for Mary Rosario LPN , and personally directed, all components of the patient's complete evaluation and management documented by the scribe today. I have personally examined the patient and reviewed all diagnostic data. I have reviewed all of this documentation by the scribe. It documents the history obtained, examination performed, diagnostic testing results compiled by him/her, and discharge information. Problem List/Past Medical History Ongoing No qualifying data Historical No qualifying data Procedure/Surgical History No qualifying data available. Medications Inpatient acetaminophen, 650 mg= 2 tab(s), Oral, q4h, PRN baclofen, 20 mg= 2 tab(s), Oral, q4hr Dakins Full Strength 0.5% topical solution, 1 kyle, Topical, BID dalfampridine, 10 mg= 1 tab(s), Oral, q12h Dextrose 50% IV Push, 12.5 gram(s)= 25 mL, IV Push, AsDirected, PRN DuoNeb, 3 mL, Inhalation, q4hRT, PRN heparin 5000 units/mL injection, 5000 unit(s)= 1 mL, Subcutaneous, q8h melatonin, 3 mg= 1 tab(s), Oral, qHS, PRN methenamine hippurate 1 g oral tablet, 1 gram(s)= 1 tab(s), Oral, BID Wilder 325- 5 mg oral tablet, 1 tab(s), Oral, q4h, PRN NS 1,000 mL, 1000 mL, Intravenous Pharmacy See ORDER COMMENTS, Home Med Verified, Miscellaneous, qDay Tylenol, 650 mg= 2 tab(s), Oral, q4h, PRN vancomycin, 1000 mg= 200 mL, IV Piggyback, q12hr Zofran, 4 mg= 2 mL, IV Push, q4h, PRN Zosyn, 3.375 gram(s)= 50 mL, IV Piggyback, q8h Home baclofen, 20 mg, Oral, q4hr dalfampridine 10 mg oral tablet, extended release, 10 mg= 1 tab(s), Oral, q12h methenamine hippurate 1 g oral tablet, 1 gram(s)= 1 tab(s), Oral, BID Allergies Augmentin (diarrhea) Immunizations No qualifying data available. Digitally Signed by Mary Rosarioibmray on 04/06/2023 02:08 PM Digitally Signed by HECTOR CARDENAS BA, MD on 04/06/2023 04:[address] [facility] 04-06-2023 Neurology Consult note Date of Service 04/06/2023 Reason for Consultation History of MS History of Present Illness 57-year-old F with PMH history of MS, wheelchair dependent, suprapubic catheter for neurogenic bladder, decubitus ulceration, history of breast cancer admitted with fever. History is obtained from medical records and documentation as well as from the patient. Per patient she felt that yesterday there was worsening right upper extremity weakness and also felt there was some weakness in the left upper extremity, per patient after antibiotics she is able to lift her right upper extremity. Per patient at baseline she is bedbound from MS, has more weakness in the right upper extremity and bilateral lower extremity with increased tone and spasticity in the lower extremities. She is on Tysabri at baseline, follows up with [facility]. Per patient she was started on Ocrevus in the past by [facility] and then later developed breast cancer, then she follows with our clinic and they had changed Ocrevus to Tysabri and she has been on Tysabri for the past few years. At present patient feels that her right upper extremity weakness is better than on admission and her left upper extremity is back to her baseline strength, following antibiotic treatment. Patient is on baclofen at baseline. Patient during this admission and started on vancomycin and Zosyn. Patient during this admission was noted to have temperature as high as 39.1 degrees C, blood pressure was 91/51 mmHg. Patient denies any new onset focal deficits, headache, visual disturbances, speech disturbance, sensory loss, dizziness. Review of Systems Complete ROS negative except as documented in HPI. Physical Exam Vitals and Measurements T: 36.7 C (Rectal) TMIN: 36.7 C (Rectal) TMAX: 39.1 C (Axillary) HR: 59 RR: 18 BP: 86/54 SpO2: 93% HT: 170 cm WT: 57.6 kg BMI: 19.93 Weight Dosing Weight: 57.6 kg (04/06/23) Dosing Weight: 57.6 kg (04/05/23) General Examination: conscious, alert, oriented, AoA x3 HEENT: normocephalic, pupils BERL Heart: normal S1 S2 Lungs: Bilateral air entry present Abdomen: bowel sounds present Psychiatry: Denies Anxiety, depression or suicidal ideations at present Neuro: Conscious, alert, oriented AoA x3, CN II-XII no Nystagmus, EOMI, pupils BERL, No facial sensory loss, no facial asymmetry, Power right UE -4/5 chronic weakness, left UE 5/5, chronic bilateral lower extremity weakness, tone increased bilateral lower extremity, chronic spasticity, No tremors, No pronator drift, Reflexes + B/S/T/K/A, Plantars B/L extensor, No cerebellar signs, Romberg s deferred, No sensory loss to light touch/temperature, gait deferred, No frontal release signs. No involuntary movements, No NR, No Kernig s sign, No Brudzinski s sign Lab Results 04/06 04:43 WBC: 8.0 Hgb: 10.6 L Hct: 31.1 L Platelet: 167 Neutrophil %: 74.0 Glucose Level: 96 Sodium Level: 139 Potassium Level: 3.6 BUN: 9.0 Creatinine Lvl (s): 0.41 L 04/05 21:25 WBC: 9.4 Hgb: 11.3 L Hct: 32.3 L Platelet: 179 Neutrophil %: 78.9 H Glucose Level: 107 Sodium Level: 137 Potassium Level: 3.8 BUN: 10.0 Creatinine Lvl (s): 0.35 L Imaging Results and Diagnostics CT Abd/Pelvis w/ IV Contrast Only Result Date: April 05, 2023 Verified By: SEVERIANO MARRERO, JUNO Veloz CLINICAL STATEMENT: IMPRESSION: Right ischial decubitus ulcer with osteomyelitis of the right ischium. Cholelithiasis without evidence of cholecystitis. Suprapubic catheter in place. There is a 5 mm stone in the urinary bladder. Small amount of free fluid in the pelvis. Left lower quadrant colostomy with no sign of complication. Assessment/Plan 57-year-old F with PMH history of MS, wheelchair dependent, suprapubic catheter for neurogenic bladder, decubitus ulceration, history of breast cancer admitted with fever. History is obtained from medical records and documentation as well as from the patient. Per patient she felt that yesterday there was worsening right upper extremity weakness and also felt there was some weakness in the left upper extremity, per patient after antibiotics she is able to lift her right upper extremity. Per patient at baseline she is bedbound from MS, has more weakness in the right upper extremity and bilateral lower extremity with increased tone and spasticity in the lower extremities. She is on Tysabri at baseline, follows up with [facility]. Per patient she was started on Ocrevus in the past by [facility] and then later developed breast cancer, then she follows with our clinic and they had changed Ocrevus to Tysabri and she has been on Tysabri for the past few years. At present patient feels that her right upper extremity weakness is better than on admission and her left upper extremity is back to her baseline strength, following antibiotic treatment. Patient is on baclofen at baseline. Patient during this admission and started on vancomycin and Zosyn. Patient during this admission was noted to have temperature as high as 39.1 degrees C, blood pressure was 91/51 mmHg. Impressions: Pseudo flare of MS History of MS Plan: -Per patient she follows up with [facility], gets her neuroimaging done there. -Discussed about checking MRI brain/spine with patient but at present she would want to hold off. Agree with the same as patient's presentation is more concerning for infection and she is feeling better with antibiotics, also follows up with [facility] for her neuroimaging. -Labs reviewed check UA, LFT -Patient started on antibiotics with vancomycin and Zosyn by the hospitalist team -Defer decubitus ulcer management to wound care team. -At present patient's symptoms are likely secondary to pseudo flare from underlying wound infection -On Tysabri at baseline. -Continue baclofen -Hospitalist admission H&P documentation reviewed -ED attending note reviewed -GI/DVT prophylaxis -PT/OT/ST -Fall precautions -Will sign off at present. Please call with questions if any in the interim. -Follow up with Neurology in 4 weeks as outpatient -Please call with questions if any. -Thank you for allowing us to participate in patients care and management. -All questions were answered This note has been generated using [employer] dictation software. It may contain incorrect words, punctuation's and spellings that were not noted in the review of the note prior to signing. Problem List/Past Medical History Ongoing No qualifying data Historical No qualifying data Procedure/Surgical History No qualifying data available. Medications Inpatient acetaminophen, 650 mg= 2 tab(s), Oral, q4h, PRN baclofen, 20 mg= 2 tab(s), Oral, q4hr Dakins Full Strength 0.5% topical solution, 1 kyle, Topical, BID dalfampridine, 10 mg= 1 tab(s), Oral, q12h Dextrose 50% IV Push, 12.5 gram(s)= 25 mL, IV Push, AsDirected, PRN DuoNeb, 3 mL, Inhalation, q4hRT, PRN heparin 5000 units/mL injection, 5000 unit(s)= 1 mL, Subcutaneous, q8h melatonin, 3 mg= 1 tab(s), Oral, qHS, PRN methenamine hippurate 1 g oral tablet, 1 gram(s)= 1 tab(s), Oral, BID Wilder 325- 5 mg oral tablet, 1 tab(s), Oral, q4h, PRN NS 1,000 mL, 1000 mL, Intravenous Pharmacy See ORDER COMMENTS, Home Med Verified, Miscellaneous, qDay Tylenol, 650 mg= 2 tab(s), Oral, q4h, PRN vancomycin, 1000 mg= 200 mL, IV Piggyback, q12hr Zofran, 4 mg= 2 mL, IV Push, q4h, PRN Zosyn, 3.375 gram(s)= 50 mL, IV Piggyback, q8h Home baclofen, 20 mg, Oral, q4hr dalfampridine 10 mg oral tablet, extended release, 10 mg= 1 tab(s), Oral, q12h methenamine hippurate 1 g oral tablet, 1 gram(s)= 1 tab(s), Oral, BID Allergies Augmentin (diarrhea) Immunizations No qualifying data available. Digitally Signed by ANUPAMA NEWTON MD on 04/06/2023 12:00 PM Digitally Signed by ANUPAMA NEWTON MD on 04/06/2023 12:[address] [facility] 04-06-2023 Note Reason for Consultation Admission From: Home Consult Skin Team re: Pressure Staging - Ordered -- 04/06/23 10:03:22 EST Skin Team Findings Vitals and Measurements T: 38.6 C (Rectal) TMIN: 36.7 C (Oral) TMAX: 39.1 C (Axillary) HR: 59 RR: 18 BP: 86/54 SpO2: 93% HT: 170 cm WT: 57.6 kg BMI: 19.93 Pressure Area Details ------Pressure Area------ Hip Left - Pressure Area Cleansing: Cleaned with sterile saline Hip Left - Pressure Area Description: [place], White, Yellow, Drainage/Exudate, Edges , Granulation, Tunneling 1 cm at 1 O'Clock Hip Left - Pressure Area Drainage: Scant, Serosanguineous Hip Left - Pressure Area Dressing Description: Dry, Intact Hip Left - Pressure Area Dressing Type: Foam Hip Left - Pressure Area Surrounding Tissue: Normal Hip Left - Pressure Ulcer Present On Admission: Yes Hip Left - Pressure Ulcer Stage: Stage 4 Hip Right - Pressure Area Cleansing: Cleaned with sterile saline Hip Right - Pressure Area Description: [place], Epithelialization with crusted weeping Hip Right - Pressure Area Drainage: Scant, Serous Hip Right - Pressure Area Dressing Type: Foam Hip Right - Pressure Area Surrounding Tissue: Normal Hip Right - Pressure Ulcer Present On Admission: Yes Hip Right - Pressure Ulcer Stage: Stage 4 Hip Right - Status: Improving Ischial tuberosity Right - Pressure Area Cleansing: Cleaned with sterile saline Ischial tuberosity Right - Pressure Area Description: White, Yellow, Drainage/Exudate, Edges , Granulation, Necrotic tissue, slough, Tunneling 2.8 cm at 12 O' Clock Ischial tuberosity Right - Pressure Area Drainage: Moderate, Sanguineous Ischial tuberosity Right - Pressure Area Dressing Description: Changed Ischial tuberosity Right - Pressure Area Dressing Type: Foam, Gauze dressing Ischial tuberosity Right - Pressure Area Surrounding Tissue: Normal Ischial tuberosity Right - Pressure Ulcer Present On Admission: Yes Ischial tuberosity Right - Pressure Ulcer Stage: Stage 4 ------Pressure Area Measurements------ Hip Left - Pressure Area Depth: 0.8 cm Hip Left - Pressure Area Length: 1.7 cm Hip Left - Pressure Area Width: 2 cm Ischial tuberosity Right - Pressure Area Depth: 0.7 cm Ischial tuberosity Right - Pressure Area Length: 1.7 cm Ischial tuberosity Right - Pressure Area Width: 0.8 cm Assessments and Recommendations ------Assessments------ Current Skin/Wound Interventions: Low air loss mattress Present For Wound Observation: Nurse, Physician ------Recommendations------ Recommended Skin/Wound Interventions: Low air loss mattress, Seat cushion, Turn and position system, Turn and reposition every 2 hours, Other: Verbal orders provided by Dr. Joy, plastics Barriers to healing: Patient has history of MS and has been wheelchair bound for around 10 years with chronic pressure wounds. Education Low air loss mattress with use of microclimate pad and repositioning. Recommended inpatient wound care. Patient verbalized understanding. Problem List/Past Medical History Ongoing No qualifying data Historical No qualifying data Digitally Signed by CARL García June04/06/2023 11:[address] [facility] 04-06-2023 Note I was in completing a skin assessment and noted patient has an established LLQ colostomy. Patient has low output and uses a 2 piece 2 3/4 in. non drainable ostomy pouch. System intact with a pink moist stoma spout. Patient has own personal supplies for appliance changes. No needs at this time. Digitally Signed by CARL García June04/06/2023 11:[address] [facility] 04-06-2023 Consult note Date of Service April 06, 2023 Reason for Consultation Pressure ulcer right ischial area stage IV Pressure ulcer left trochanteric area stage II Multiple sclerosis Infected ulcer Bedridden and wheelchair-bound Referring Physician Hospitalist History of Present Illness Patient had a history of multiple sclerosis for the past 30 years for the last 10 or 15 years she has not been able to walk move around so most of the time she was confined to bed or wheelchair she had developed some pressure ulcers in the past which were on both right and left trochanteric area they have responded very well to the treatment and have partially healed patient had developed a pressure ulcer on the right ischial area which has been present for some time and has some slough and necrotic tissue present it has been followed at the [facility] for the past 1 year but because they found some more infection and pus in this area she was transferred over to [facility] from [facility] for further care and treatment Review of Systems Patient has a past history of multiple sclerosis which started about 30 years ago since then patient has some ulcerations on both right and left trochanteric area as well as in the sacral area which have responded very well to the treatments and have now completely healed patient now has a new pressure ulcer on the right ischial area which has been infected draining has been treated with wound VAC therapy at 1 time the presently being treated with Aquacel Ag at the wound clinic in [place]. Found out there was more drainage she was transferred over to [facility] for further care and treatment Physical Exam Vitals and Measurements T: 38.6 C (Rectal) TMIN: 36.7 C (Oral) TMAX: 39.1 C (Axillary) HR: 59 RR: 18 BP: 86/54 SpO2: 93% HT: 170 cm WT: 57.6 kg BMI: 19.93 Weight Dosing Weight: 57.6 kg (04/06/23) Dosing Weight: 57.6 kg (04/05/23) On examination she is alert able to communicate very well has a pressure ulcer on the right ischial area which measures about 2 x 2 centimeter in size with a depth depth of about 2 cm extends up to the bone has some slough and necrotic tissue present. There is also a pressure ulcer on the left trochanteric area which is almost completely healed except for a small area of undermining for about a centimeter with minimal drainage noticed. There are no pressure ulcers on the heels at this time noticed. Patient is mostly bedridden and unable to move. Procedure note Using a sharp curette #7 excisional debridement the skin and subcutaneous tissues and muscle and necrotic tissue was carried out some of the bone was also scraped which appeared to be very firm does not show any sign of necrosis or osteomyelitis on debridement some of the slough was removed from the surface of the bone also. Wound was then irrigated with normal saline and a dry sterile dressing with Aquacel Ag was applied. Lab Results 04/06 04:43 WBC: 8.0 Hgb: 10.6 L Hct: 31.1 L Platelet: 167 Neutrophil %: 74.0 Glucose Level: 96 Sodium Level: 139 Potassium Level: 3.6 BUN: 9.0 Creatinine Lvl (s): 0.41 L 04/05 21:25 WBC: 9.4 Hgb: 11.3 L Hct: 32.3 L Platelet: 179 Neutrophil %: 78.9 H Glucose Level: 107 Sodium Level: 137 Potassium Level: 3.8 BUN: 10.0 Creatinine Lvl (s): 0.35 L Assessment/Plan Continue to dress this wound with Dakin's solution for the time being so the wound can be kept clean which can be changed twice a day and after her discharge patient can be followed at [facility] by me at that time we can have Aquacel Ag dressing which can be applied to the wound and changed on a daily basis. Problem List/Past Medical History Ongoing No qualifying data Historical No qualifying data Procedure/Surgical History No qualifying data available. Medications Inpatient acetaminophen, 650 mg= 2 tab(s), Oral, q4h, PRN baclofen, 20 mg= 2 tab(s), Oral, q4hr dalfampridine, 10 mg= 1 tab(s), Oral, q12h Dextrose 50% IV Push, 12.5 gram(s)= 25 mL, IV Push, AsDirected, PRN DuoNeb, 3 mL, Inhalation, q4hRT, PRN heparin 5000 units/mL injection, 5000 unit(s)= 1 mL, Subcutaneous, q8h melatonin, 3 mg= 1 tab(s), Oral, qHS, PRN methenamine hippurate 1 g oral tablet, 1 gram(s)= 1 tab(s), Oral, BID Wilder 325- 5 mg oral tablet, 1 tab(s), Oral, q4h, PRN NS 1,000 mL, 1000 mL, Intravenous Pharmacy See ORDER COMMENTS, Home Med Verified, Miscellaneous, qDay Tylenol, 650 mg= 2 tab(s), Oral, q4h, PRN vancomycin, 1000 mg= 200 mL, IV Piggyback, q12hr Zofran, 4 mg= 2 mL, IV Push, q4h, PRN Zosyn, 3.375 gram(s)= 50 mL, IV Piggyback, q8h Home baclofen, 20 mg, Oral, q4hr dalfampridine 10 mg oral tablet, extended release, 10 mg= 1 tab(s), Oral, q12h methenamine hippurate 1 g oral tablet, 1 gram(s)= 1 tab(s), Oral, BID Allergies Augmentin (diarrhea) Immunizations No qualifying data available. Digitally Signed by MAXIMINO JOY MD on 04/06/2023 11:[address] [facility] 04-05-2023 Note ORIGINAL EXAMINATION: CT OF THE ABDOMEN AND PELVIS WITH CONTRAST 04/05/2023 8:50 pm TECHNIQUE: CT of the abdomen and pelvis was performed with the administration of intravenous contrast. Multiplanar reformatted images are provided for review. Automated exposure control, iterative reconstruction, and/or weight based adjustment of the mA/kV was utilized to reduce the radiation dose to as low as reasonably achievable. COMPARISON: Pelvis x-ray on 02/27/2022 HISTORY: ORDERING SYSTEM PROVIDED HISTORY: Reason for Exam: pt states n/v/d since last , wound on ischium last June, hx lt breast ca, infected decubitus ulcer, osteomyelitis FINDINGS: Lower Chest: No acute findings. Organs: The liver is normal in size with no hepatic lesion. Gallbladder contains a 1.7 cm gallstone. Gallbladder wall is not thickened. There is no biliary ductal dilatation. The pancreas, spleen, adrenal glands, kidneys, and ureters show no sign of abnormality. GI/Bowel: Stomach and duodenum are unremarkable. The small intestine shows no sign of obstruction or inflammation. The appendix is normal. There is a colostomy in the left lower quadrant with no sign of complication. There is no colon obstruction or inflammation. No free intraperitoneal air or abnormal fluid collection is present in the abdomen. Pelvis: Urinary bladder has a suprapubic catheter in place and is nearly empty. A small amount of air is present in the urinary bladder. There is a 5 mm stone in the urinary bladder. Uterus and adnexal structures are unremarkable. There is a small amount of free fluid in the pelvis. No loculated collection is present. There is no lymph node enlargement. Peritoneum/Retroperitoneum: Abdominal aorta is nonaneurysmal. There is no retroperitoneal lymph node enlargement. Bones/Soft Tissues: There is ulceration of the skin superficial to the right ischial process. This ulcer extends to the bone. There is slight irregularity of the cortex and sclerosis of the right ischium consistent with osteomyelitis. Mild soft tissue thickening of the left ischium is present without evidence of ulceration. Other skeletal structures are unremarkable. IMPRESSION: Right ischial decubitus ulcer with osteomyelitis of the right ischium. Cholelithiasis without evidence of cholecystitis. Suprapubic catheter in place. There is a 5 mm stone in the urinary bladder. Small amount of free fluid in the pelvis. Left lower quadrant colostomy with no sign of complication. Interpreted by: Juno Glez MD Preliminary Report By: Juno Glez MD Electronically signed By Juno Glez MD Dictated Date: 04/06/2023 12:39:41 AM Prelim Date: 04/06/2023 12:47:04 AM Sign Date: 04/06/2023 12:47:04 AM Ordering Provider: [facility] 04-05-2023 History and physical note Date of Service 04/05/2023 decubitus Chief Complaint Infected decubitus ulcer History of Present Illness 57-year-old with a past medical history of multiple sclerosis wheelchair dependent, suprapubic catheter for neurogenic bladder, chronic deep venous ulcer presented to [facility] due to concern for fevers. There is concern for infected sacral decubitus wounds with foul-smelling wounds and also leukocytosis 13,300 and fever. She was recently discharged for Pseudomonas UTI placed on 10 days of cefepime. Blood cultures and wound cultures were obtained. Given vancomycin and Zosyn. Given that he did not have plastic surgery wound care at the facility she has been transferred here for treatment. Also some concern for left-sided weakness from IMS on palpation she mentions that when she gets infections she does have issues with her MS. Per [facility] there was concern for soft blood pressure on presentation in the 90s but she did respond to IV fluids. She mentions this happens when she has an infection. She does mention that she has some baseline weakness from her multiple sclerosis on the right side but it feels weak and she cannot move it at all. Review of Systems 14 point review of system was discussed and reviewed as negative unless otherwise specified above Physical Exam Vitals and Measurements HT: 170 cm WT: 57.6 kg BMI: 19.93 Weight Dosing Weight: 57.6 kg (04/05/23) General- in no acute distress, alert Cardiac- Normal S1 S2, with no murmur rubs or gallops, no edema HEENT- PERRLA, eyes- sclera nonicteric, oral mucosa moist Lungs- Clear to auscultation bilaterally Abdomen- Nontender to palpation, positive bowel sounds Neurology- No focal neuro deficit, follows command Skin- no rash, deep right hip ulcer, right gluteal ischium ulcer deep Psychiatry- oriented x3 Lab Results No 36 Hour Lab Data Assessment/Plan Assessment 1. Infected decubitus ulcer 2. Multiple sclerosis wheelchair dependent 3. Suprapubic Neurogenic bladder 4. Completed 10 days of cefepime for recent Pseudomonas UTI Plan 1. At this time we will go ahead and continue vancomycin and Zosyn. To go ahead and consult infectious disease and plastic surgery wound care. Blood cultures. Follow-up on wound cultures and blood culture from [facility]. Neurology consultation for MS. ESR and CRP. CT abdomen/pelvis. This document was transcribed using a voice recognition software and may contain typographical errors. Problem List/Past Medical History Ongoing No qualifying data Historical No qualifying data Procedure/Surgical History No qualifying data available. Medications Home Medications (2) Active baclofen 20 mg, Oral, q4hr dalfampridine 10 mg oral tablet, extended release 10 mg = 1 tab(s), Oral, q12h Allergies Augmentin (diarrhea) Immunizations No qualifying data available. Code Status No qualifying data available. Digitally Signed by HERBIE WYNNE MD on 04/05/2023 07:[address] [facility] Assessment 1. Infected decubitus ulcer 2. Multiple sclerosis wheelchair dependent 3. Suprapubic Neurogenic bladder 4. Completed 10 days of cefepime for recent Pseudomonas UTI Plan 1. At this time we will go ahead and continue vancomycin and Zosyn. To go ahead and consult infectious disease and plastic surgery wound care. Blood cultures. Follow-up on wound cultures and blood culture from [facility]. Neurology consultation for MS. ESR and CRP. CT abdomen/pelvis. This document was transcribed using a voice recognition software and may contain typographical errors. [facility] Evaluation + Plan note No data available for this section [facility] Hospital Discharge instructions No data available for this section [facility] Progress note No data available for this section [facility] Summary Purpose Family History No Family History Records Found No data available for this section No Family History Records Found Advance Directives No Advanced Directives Records FoundNo Advanced Directives Records Found Additional Source Comments INFORMATION SOURCE (unrecogn ized section and content) DATE CREATED AUTHOR AUTHOR'S ORGANIZ ATION 04/12/2023 [facility] oundation (DC) Care Team (unrecognized sect ion and content) Personnel Name: PHYSICIAN, NOT RECORDED Care Team Personnel Name: MUNIR NICKERSON DO Member Role: Primary Care Physician Address: Address: [address] [place] [id number] Care Team Related Persons Name: JAMES OJEDA Care Team Personnel Name: Genna Beasley Position: Bed Management Member Role: Other Name: MUNIR NICKERSON DO Member Role: Primary Care Physician Address: Address: [address] [place] [address] Care Team Related Persons Name: JAMES OJEDA Care Team (unrecognized sect ion and content) Care Team Personnel Name: LIYAMUNIR DO Member Role: Primary Care Physician Address: Address: [address] [place], [place] [address] Care Team Related Persons Name: JAMES OJEDA Care Team Personnel Name: LIYAMUNIR DO Member Role: Primary Care Physician Address: Address: [address] [place] [address] Care Team Related Persons Name: JAMES [...] BE BASED ON THE PRIMARY CLINICAL RECORDS. [employer] [facility]. provides no warranty or guarantee of the accuracy or completeness of information in this document.
[2023-04-20 12:23] LABS: ALB/GLOB Ratio 0.7 RATIO (0.9-2.4); AST(SGOT) 15 U/L (15-37); Alanine Aminotransfer ALT/SGPT 31 U/L (13-56); Albumin, Serum 3.1 g/dL (3.2-5.0); Alkaline Phosphatase 104 U/L (45-117); Anion Gap 7 (5-15); BUN 23 mg/dL (7-18); BUN/Creat Ratio 47.5 RATIO (10-20); Calcium,Total 9.6 mg/dL (8.5-10.1); Chloride 102 mmol/L (98-107); Creatinine, Serum 0.48 mg/dL (0.55-1.02); EST Glomerular Filtration Rate 140 mL/min (>60); Est Glom Filt Rate - Afr Amer 169 mL/min (>60); Globulin 4.2 g/dL (2.2-4.2); Glucose 98 mg/dL (74-106); Potassium 4.2 mmol/L (3.5-5.1); Protein, Total 7.3 g/dL (6.4-8.2); Sodium Level 140 mmol/L (136-145)
== END | disposition home or self-care (01) ==
LOC: LABSPEC 11:57
PROVIDERS: PCP Family Medicine; Referring Provider Internal Medicine Infectious Disease; Visit Provider Internal Medicine Infectious Disease
DX: M86.9 Osteomyelitis, unspecified (principal)
CPT/HCPCS: 80053; 85025; 85652

== ENCOUNTER → 2023-04-27 | Outpatient (CLI) | payer MEDICARE, SELFPAY ==
[2018-02-01 11:47] VITALS: BMI 15.0
--- OUTSIDE RECORDS SUMMARY | 2023-04-27 12:00 | XMS RPT_ITS | CCD ---
Author Name Unknown Address [address] [place] [address] Organization [facility] Care Team Providers Care Financial Institution Vice President Name Role Phone STEVEN Bartlett, Myriam Stevenson Unavailable [phone] Preston Rojas Unavailable [phone] Now Nurse Unavailable Unavailable Butch De La Torre Unavailable Jessika Sanon LPN Unavailable [phone] CogJessika nash LPN Unavailable [phone] PHYSICIAN, NOT RECORDED Primary Care Physician U navailable [facility], DR MUNIR Mccabe Primary Care Physician Genna Beasley Unavailable Unavailable MURRAY POE MD Attending Unavailable SHERRELL MARRERO, DR HERBIE Zaragoza Admitting Anselmo CARDENAS MD, DR HECTOR CUMMINS Consulting Unavaila ble [facility], DR MUNIR Mccabe Primary Care Unavailab chance GOLDSTEIN MD, KIA Consulting Unavailable MAXIMINO JOY MD Consulting Unavailable MEREDITH MONROY Attending Unavailable SELF Referring Unavailable MUNIR NICKERSON Primary Care Unavailable Allergies Allergy Classification Reported Allergen(s) Allergy Type Date of Onset Reaction(s) Facility (7 sources) ciprofloxacin drug allergy 7 [facility] Work Phone: (1 source) Amoxicillin / Clavulanate; Translations: [amoxicillin-clavula chantal] Drug Allergy [facility] (1 source) Ciprofloxacin; Translations: [CIPROFLOXACIN] Drug Allergy 3 [facility] (1 source) Sulfamethoxazole / Trimethoprim; Translations: [SULFAMETHOXAZOLE-TR IMETHOPRIM] Drug Allergy 8 [facility] Rep[facility] Medications Current Medications Medication Drug Class(es) Dates [...] 1 capsule twice daily NITROFURANTOIN MONOHYD MACRO [id number] Preston CHENG Problems Active Problems Problem Classification [...] temperature 98.24 [degF] DR HERBIE WYNNE MD [facility] 04-10-2023 16:05-0500 Diastolic Blood Pressure Non-Invasive 74 mm[Hg] DR HERBIE WYNNE MD [facility] 04-10-2023 16:05-0500 Heart rate 76 /min DR HERBIE WYNNE MD [facility] 04-10-2023 16:05-0500 Reason For Taking VItal Signs DR HERBIE WYNNE MD [facility] 04-10-2023 16:05-0500 Respiratory rate 18 /min DR HERBIE WYNNE MD [facility] 04-10-2023 16:05-0500 Systolic Blood Pressure Non-Invasive 120 mm[Hg] DR HERBIE WYNNE MD [facility] 04-10-2023 15:17-0500 Reason For Taking VItal Signs DR HERBIE WYNNE MD [facility] 04-10-2023 13:23-0500 Reason For Taking VItal Signs DR HERBIE WYNNE MD [address] [place] [address] 04-10-2023 13:23-0500 Respiratory rate 16 /min DR HERBIE WYNNE MD [address] [place] [address] 04-10-2023 10:30-0500 Blood Pressure Cuff Size DR HERBIE WYNNE MD [address] [place] [address] 04-10-2023 10:30-[address] HERBIE WYNNE MD [address] [place] [address] 04-10-2023 10:30-[address] HERBIE Chong MD [address] [place] [address] 04-10-2023 10:30-0500 Body temperature 97.16 [degF] DR HERBIE WYNNE MD [address] [place] [address] 04-10-2023 10:30-0500 Diastolic Blood Pressure Non-Invasive 64 mm[Hg] DR HERBIE WYNNE MD [address] [place] [address] 04-10-2023 10:30-0500 Heart rate 68 /min DR HERBIE WYNNE MD [address] [place] [address] 04-10-2023 10:30-0500 Respiratory rate 16 /min DR HERBIE WYNNE MD [address] [place] [address] 04-10-2023 10:30-0500 Systolic Blood Pressure Non-Invasive 96 mm[Hg] DR HERBIE WYNNE MD [address] [place] [address] 04-10-2023 09:43-0500 Blood Pressure Cuff Size DR HERBIE WYNNE MD [address] [place] [address] 04-10-2023 09:43-[address] EHRBIE WYNNE MD [address] [place] [address] 04-10-2023 09:43-[address] HERBIE Chong MD [address] [place] [address] 04-10-2023 09:43-0500 Diastolic Blood Pressure Non-Invasive 70 mm[Hg] DR HERBIE WYNNE MD [address] [place] [address] 04-10-2023 09:43-0500 Systolic Blood Pressure Non-Invasive 108 mm[Hg] DR HERBIE WYNNE MD [address] [place] [address] 04-10-2023 07:57-0500 Blood Pressure Cuff Size DR HERBIE WYNNE MD [address] [place] [address] 04-10-2023 07:57-[address] HERBIE WYNNE MD [address] [place] [address] 04-10-2023 07:57-[address] HERBIE Chong MD [address] [place] [address] 04-10-2023 07:57-0500 Body temperature 96.8 [degF] DR HERBIE WYNNE MD [address] [place] [address] 04-10-2023 07:57-0500 Heart rate 70 /min DR HERBIE WYNNE MD [address] [place] [address] 04-10-2023 03:51-0500 Body temperature 98.24 [degF] DR HERBIE WYNNE MD [address] [place] [address] 04-09-2023 23:52-0500 Body temperature 97.7 [degF] DR HERBIE WYNNE MD [address] [place] [address] 04-09-2023 23:52-0500 Mean blood pressure 73 mm[Hg] DR HERBIE WYNNE MD [address] [place] [address] 04-09-2023 14:50-0500 Mean blood pressure 72 mm[Hg] DR HERBIE WYNNE MD [address] [place] [address] 04-08-2023 18:23-0500 Body height [address] HERBIE WYNNE MD [address] [place] [address] 04-08-2023 18:23-0500 Body weight 57.[address] HERBIE WYNNE MD [address] [place] [address] 04-08-2023 18:23-0500 Body weight 19.93 kg/m2 DR HERBIE WYNNE MD [address] [place] [address] 04-08-2023 16:00-0500 Heart rate 68 /min DR HERBIE WYNNE MD [address] [place] [address] 04-08-2023 02:30-0500 Heart rate 59 /min DR HERBIE WYNNE MD [address] [place] [address] 04-07-2023 10:56-0500 Body temperature 97.88 [degF] DR HERBIE WYNNE MD [address] [place] [address] 04-06-2023 10:18-0500 Body temperature 98.06 [degF] DR HERBIE WYNNE MD [address] [place] [address] 04-06-2023 08:07-0500 Body height [address] HERBIE WYNNE MD [address] [place] [address] 04-06-2023 08:07-0500 Body weight 57.[address] HERBIE WYNNE MD [address] [place] [address] 04-06-2023 08:07-0500 Body weight 19.93 kg/m2 DR HERBIE WYNNE MD [address] [place] [address] 04-06-2023 03:20-0500 Body temperature 101.48 [degF] DR HERBIE WYNNE MD [address] [place] [address] 04-05-2023 23:39-0500 Body temperature 102.38 [degF] DR HERBIE WYNNE MD [facility] 04-05-2023 22:33-0500 Mean blood pressure 65 mm[Hg] DR HERBIE WYNNE MD [facility] 04-05-2023 19:01-0500 Heart rate 81 /min DR HERBIE WYNNE MD [facility] 12-22-2016 16:32-0400 BMI (Body Mass Index) 18.79 kg/m2 Butch CHENG [facility] Work Phone: 12-22-2016 16:32-0400 Body Temperature 98.7 [degF] Butch CHENG [facility] Work Phone: 12-22-2016 16:32-0400 BP Diastolic 62 mm[Hg] Butch CHENG [facility] Work Phone: 12-22-2016 16:32-0400 BP Systolic 104 mm[Hg] Butch Hayes PA [facility] Work Phone: 12-22-2016 16:32-0400 Height 170.18 cm Butchbruna Hayes PA [facility] Work Phone: 12-22-2016 16:32-0400 Pulse (Heart Rate) 71 /min Butch CHENG [facility] Work Phone: 12-22-2016 16:32-0400 Respiratory Rate 13 /min Butch CHENG [facility] Work Phone: 12-22-2016 16:32-0400 Weight 54.43 kg Butch CHENG [facility] Work Phone: 09-25-2016 12:25-0400 BMI (Body Mass Index) 18.79 kg/m2 Jessika Sanon LPN [facility] Work Phone: 09-25-2016 12:25-0400 Body Temperature 98.4 [degF] Jessika Sanon LPN [facility] Work Phone: 09-25-2016 12:25-0400 BP Diastolic 84 mm[Hg] Jessika Sanon LPN [facility] Work Phone: 09-25-2016 12:25-0400 BP Systolic 126 mm[Hg] Jessika Sanon LPN [facility] Work Phone: 09-25-2016 12:25-0400 Height 170.18 cm Jessika Sanon LPN [facility] Work Phone: 09-25-2016 12:25-0400 Pulse (Heart Rate) 74 /min Jessika Sanon LPN [facility] Work Phone: 09-25-2016 12:25-0400 Respiratory Rate 14 /min Jessika Sanon LPN [facility] Work Phone: 09-25-2016 12:25-0400 Weight 54.43 kg Jessika Sanon LPN [facility] Work Phone: Encounters Encounter Date Encounter Type Care Provider Facility Start: 04-23-2023 End: 04-23-[address] [facility] Facility:[facility] Start: 04-05-2023 End: 04-10-2023 Evaluation and management of inpatient MURRAY POE MD Facility: Start: 04-05-2023 End: 04-10-2023 Evaluation and management of inpatient DR HERBIE WYNNE MD [facility] Start: 02-27-2022 End: 02-27-[address] NELLIE JAIME DO [facility] Start: 02-18-2022 End: 06-06-[address] NELLIE JAIME DO [facility] Start: 04-17-2021 End: 06-27-2021 Wound Care MAXIMINO JOY MD [facility] Procedures Date Procedure Procedure Detail Performing Clinician Start: 12-22-2016 End: 12-22-2016 Urinalysis Butch CHENG Start: 12-22-2016 End: 12-22-2016 Urnls dip stick/tablet rgnt non-auto w/o micrscp Butch Hayes PA Work Phone: Start: 12-22-2016 End: 12-22-2016 Urinalysis nonauto w/o scope Butch Hayes PA Work Phone: Start: 09-25-2016 End: 09-25-2016 Urine test visual color cmprsn meths Preston Manzo PA Work Phone: Start: 09-25-2016 End: 09-25-2016 Urnls dip stick/tablet rgnt non-auto w/o micrscp Preston Manzo PA Work Phone: Start: 09-25-2016 End: 09-25-2016 Urinalysis Jessika Sanon [employer] Start: 09-25-2016 End: 09-25-2016 Urinalysis nonauto w/o scope Preston Manzo PA Work Phone: Start: 09-25-2016 End: 09-25-2016 Urine test visual color cmprsn meths Preston Manzo PA Work Phone: Start: 09-25-2016 End: 09-25-2016 Urine, test (choriogonadotropin presence) Prestno Manzo PA Work Phone: Plan of Treatment Date Care Activity Detail Author Start: 12-22-2016 End: 12-22-2016 Appointment Appointment [facility] Work Phone: Start: 12-22-2016 End: 12-22-2016 Urinalysis complete panel - Urine *UAC- Urinalysis, Complete w/ Micro [facility] Work Phone: Start: 12-22-2016 End: 12-22-2016 Urinalysis complete panel - Urine *UAC- Urinalysis, Complete w/ Micro [facility] Work Phone: Start: 09-25-2016 End: 09-25-2016 Appointment Appointment [facility] Work Phone: Patient Education DYSURIA [facility] Work Phone: Payers Date Payer Category Payer Medicare [id number] 2022 Unknown [id number] 1965 Unknown [id number] Social History Date Type Detail Facility Tobacco smoking status [facility] Sex Assigned At Female [facility] Tobacco smoking status No Smoking Status Entered [facility] Functional Status Date Assessment Result Facility 04-10-2023 Functional Status Room check performed [facility] 04-10-2023 Functional Status [facility] 04-10-2023 Functional Status Done [facility] 04-10-2023 Functional Status 65 [facility] 04-10-2023 Functional Status Skin Care Prev entative Intervention(s) heel(s)s elevated [facility] 04-09-2023 Functional Status [facility] 04-09-2023 Functional Status One assist [facility] 04-09-2023 Functional Status [facility] 04-09-2023 Functional Status [facility] 04-08-2023 Functional Status [facility] 04-07-2023 Functional Status Dinner Percent 25 [facility] 04-06-2023 Functional Status [facility] 04-06-2023 Functional Status [facility] Mental Status Date Assessment Result Facility 04-10-2023 Mental Status Oriented x 4 [facility] 04-10-2023 Mental Status [facility] 04-09-2023 [facility] 04-09-2023 Mental Status [facility] 04-09-2023 Mental Status [facility] Clinical Notes 04-05-2023 to 04-11-2023 Note Date [...] Locations *1: This test was performed at: [address], [facility] , [facility] ([place]) 04-11-2023 Note . MICRO - Microbiology PROCEDURE: [...] Locations *1: This test was performed at: [address], [address] [place] [address] ([place]) 04-10-2023 Hospital Discharge instructions Patient Education 04/10/2023 [...] Follow these instructions at home: Medicines Take nndk-xto-xwitotg and prescription medicines only as told by [...] and water are not available, use hand electric golf cart repairer. Do not use any products that contain [...] 03/02/2006 Document Revised: 03/18/2018 Document Reviewed: 03/11/2018 [employer]ent Patient Education 2020 [employer]. Follow Up Care 04/05/2023 14:21:21 With:[facility]add[facility] will providing your IV medication and delivering this to your room. Call them with any questions at [phone] Address:Unknown When:1-2 days With:[facility] Address:Unknown When:1-2 days Comments:[facility] RN for IV infusion and wound care. They will call you before coming out to the home. Call them with any questions at [phone] With:MUNIR NICKERSON DO Address: [address] [place] [address]- When:1-2 days Comments:Please call the office to schedule a follow-up appointment With:[facility] - Patient had home medication brought in. Please send home with patient upon discharge. Address: When:1-2 days [facility] 04-10-2023 Note Discharge Instructions Thank you for allowing [facility] to assist you with your healthcare needs. The following is important discharge information regarding your hospital visit. Your Care Team MUNIR NICKERSON DO Your Diagnosis MS (multiple sclerosis) Osteomyelitis What to do next Follow Up Appointments Follow Up with Adamjordi Waddell will providing your IV medication and delivering this to your room. Call them with any questions at [phone] When Within 1-2 days Follow Up with [facility] When Within 1-2 days Why: [facility] RN for IV infusion and wound care. They will call you before coming out to the home. Call them with any questions at [phone] Follow Up with MUNIR NICKERSON DO When Within 1-2 days Why: Please call the office to schedule a follow-up appointment Where: [address] [place] [address]- Follow Up with [facility] - Patient [...] Follow these instructions at home: Medicines Take ncey-mhc-ljwtrxt and prescription medicines only as told by [...] and water are not available, use hand electric golf cart repairer. Do not use any products that contain [...] 03/02/2006 Document Revised: 03/18/2018 Document Reviewed: 03/11/2018 ElseEducabilia Patient Education 2020 [employer] Inc. Additional Information VACCINATE! IT SAVES LIVES! Members of the community who have not yet received the COVID-19 vaccine and would like to receive it can visit one of [facility] vaccine clinics. There are many vaccine clinic locations within the [facility]. For locations and available times, please visit [email or web address].[place].gov/. It is important to note that some COVID mobile vaccine clinics are held outdoors and may be canceled in rainy or stormy conditions. To learn more about pediatric vaccinations (ages 5-11), we invite you to visit the [employer] webpage. [email or web address] [email or web address] [email or web address]-[email or web address] To learn more about the COVID-19 vaccine, we invite you to visit the CDC website for a list of frequently asked questions.https://www.cdc.gov/cor onavirus/2019-ncov/vaccines/faq.h tml [facility] Patient Portal Access Instructions: Stay connected with your healthcare team and access your personal medical information anytime with the [employer] Patient Portal. Please follow the directions below to create your [employer] account: 1.Access the email account you provided upon registration to the hospital/physician office.2.Look for an invitation email from [facility].3.Open the email and access the invitation link: Accept Invitation to [employer].4.Fill in the required biggs to create your account. To access your account, visit [email or web address]. Click the blue button labeled Access Patient [...] you will allow to register on the [employer] Patient Portal for access to your information. You can also access the [facility] Patient Portal on the [facility] [employer] kyle. Simply click on Patient Portal and then log into your account. If you would like to receive a full copy of your medical records, please contact the [facility] Medical Records Department by calling [phone], Thursday through Thursday between 8 a.m. and [...] Call your local pharmacy or go to http://Blue Box.AGC/3F8Wz6a to find one close to you.3.Make use of household items: Use cat litter or old coffee grounds to dispose medications if other options are not available. Mix your drugs with these household products, seal them in an airtight container and throw it into the garbage. Call [facility]: [phone] to be sure your drugs can be [...] been reviewed and explained to me and I,AMPARO CASPER Manjeet understand my current condition and have read and understand these discharge instructions. I have received a written copy of the plan/instructions. If I have questions, I am aware that I should contact my doctor. 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 Unchanged Milligram by mouth every 4 hours. dalfampridine [...] for constipation. Follow Up Follow Up with [facility] will providing your IV medication and delivering this to your room. Call them with any questions at [phone] When Within 1-2 days Follow Up with [facility] When Within 1-2 days Why: [facility] RN for IV infusion and wound care. They will call you before coming out to the home. Call them with any questions at [phone] Follow Up with MUNIR NICKERSON DO When Within 1-2 days Why: Please call the office to schedule a follow-up appointment Where: [address] [address]- Follow Up with [facility] - Patient [...] by MARTHA PACE on 04/10/2023 04:14 PM [facility] 04-10-2023 Procedure note VASCULAR ACCESS TEAMPOST [...] LENGTH:38 cm EXTERNAL LENGTH:0cm ARM CIRC:_26cm LOT #:[id number] COMPLICATIONS: None INSERTED BY: Janelle Remy RN, assisted by Raheem Valera RN PLAN:_ PICC placement confirmed in lower SVC per ECG technology with Maximum P wave and absence of negative deflection/ Flushes easily with good blood return. Okay to use PICC now. Primary RN notified. Digitally Signed by CARL Remy on 04/10/2023 01:05 PM [facility] 04-10-2023 Infectious disease Progress note Date [...] Katty Turcios RN on 04/10/2023 11:13 AM [facility] 04-10-2023 Note . MICRO - Microbiology [...] Date/Time/Personnel: 04/08/2023 08:24 EST Light Staphylococcus aureus COLTON to follow Preliminary Report [] Verified Date/Time/Personnel: [...] Locations *1: This test was performed at: [address], [facility] , [facility] ([place]) 04-10-2023 Infectious disease Progress note Date of [...] Katty Turcios RN on 04/10/2023 11:13 AM [facility] 04-10-2023 Note . MICRO - Microbiology PROCEDURE: Urine Culture [*1] SOURCE: Urine, Straight BODY SITE: Catherized COLLECTED DATE/TIME: 04/05/2023 23:51 EST RECEIVED DATE/TIME: 04/06/2023 20:55 EST START DATE/TIME: 04/06/2023 20:55 EST FREE TEXT SOURCE: FINAL REPORTS Final Report [] Verified Date/Time/Personnel: 04/10/2023 08:45 EST 1,000 cfu/ml Staphylococcus aureus 1,000 cfu/ml Kayley albicans Contact Microbiology within 72 hours if further identification is indicated ([id number]). Floyd[place] counts from a single urine are equivocal in determining infection vs. colonization of yeast. Multiple cultures at least 24 hours apart may be helpful in differentiating colonization from infection. PRELIMINARY REPORTS Preliminary Report [] Verified Date/Time/Personnel: 04/09/2023 08:45 EST 1,000 cfu/ml Staphylococcus aureus COLTON to follow 1,000 cfu/ml Kayley albicans Contact Microbiology within 72 hours if further identification is indicated ([id number]). [place] counts from a single urine are equivocal [...] Locations *1: This test was performed at: [facility], [address] [place] [address], [id number] , [facility] ([place]) 04-09-2023 Infectious disease Progress note Date of [...] - ipratropium 2.5 mg-0.5 mg/3 mL Inhal Ela UD 3 mL, Inhalation, q4hRT dextrose 50% [...] and multiple decubitus ulcers who presented to [facility] due to concern of fevers and [...] CARDENAS BA, MD on 04/09/2023 04:16 PM [facility] 04-09-2023 Note Date of Service 04.09.23 [...] 15:24:00 EST Digitally Signed by MARTHA PACE on 04/09/2023 04:00 PM [facility] 04-09-2023 Note . MICRO - Microbiology [...] Locations *1: This test was performed at: [facility], [address] [place] [address], [id number] , [facility] ([place]) 04-09-2023 Procedure note Date of Service April [...] MAXIMINO JOY MD on 04/09/2023 10:57 AM [facility] 04-08-2023 Note Date of Service 04.08.23 [...] days. Patient reports her urine culture from [facility] showed Klebsiella so she is concerned about [...] 16:45:00 EST Digitally Signed by MARTHA PACE on 04/08/2023 05:25 PM Digitally Signed by MARTHA PACE on 04/08/2023 05:26 PM [facility] 04-08-2023 Infectious disease Progress note Hip wound cultures is revealing Pseudomonas species, will start the patient on meropenem pending sensitivity Digitally Signed by HECTOR CARDENAS BA, MD on 04/08/2023 04:30 PM [facility] 04-08-2023 Progress note Date of Service [...] Dakin's solution packing. Post-Procedure Exam Appeared much lingo cleaner Complications None Estimated Blood Loss 35 cc Total Time 25 minutes Assessment/Plan MS (multiple sclerosis) Osteomyelitis Follow Up/Recommendation Continue with the Dakin's solution dressings for the time being at her discharge we can change her to Aquacel Ag. Digitally Signed by MAXIMINO JOY MD on 04/08/2023 11:54 AM [facility] 04-08-2023 Note ORIGINAL EXAMINATION: ONE XRAY [...] Sign Date: 04/08/2023 12:16:29 AM Ordering Provider: [facility] 04-07-2023 Note Date of Service 04.07.23 Chief [...] by MARTHA PACE on 04/07/2023 04:46 PM [facility] 04-07-2023 Note Date of Service 04.07.23 [...] by MARTHA PACE on 04/07/2023 04:46 PM [facility] 04-06-2023 Infectious disease Consult note Date of Service 04/06/23 Reason for Consultation Infected decubitus ulcer Referring Physician Dr Young History of Present Illness This is a 57-year-old with a past medical history of multiple sclerosis wheelchair dependent, suprapubic catheter for neurogenic bladder, chronic deep venous ulcer presented to [facility] due to concern for fevers. There [...] does have issues with her MS. Per [facility] there was concern for soft blood [...] and multiple decubitus ulcers who presented to [facility] due to concern of fevers and [...] tablet, 1 gram(s)= 1 tab(s), Oral, BID Moclips 325- 5 mg oral tablet, 1 tab(s), [...] qualifying data available. Digitally Signed by Mary Rosarioibbob on 04/06/2023 02:08 PM Digitally Signed by HECTOR CARDENAS BA, MD on 04/06/2023 04:00 PM [facility] [facility] Neurology Consult note Date of [...] on Tysabri at baseline, follows up with [facility]. Per patient she was started on Ocrevus in the past by [facility] and then later developed breast cancer, then [...] on Tysabri at baseline, follows up with [facility]. Per patient she was started on Ocrevus in the past by [facility] and then later developed breast cancer, then [...] Plan: -Per patient she follows up with [facility], gets her neuroimaging done there. -Discussed about checking MRI brain/spine with patient but at present she would want to hold off. Agree with the same as patient's presentation is more concerning for infection and she is feeling better with antibiotics, also follows up with [facility] for her neuroimaging. -Labs reviewed check [...] answered This note has been generated using [employer] dictation software. It may contain incorrect words, [...] tablet, 1 gram(s)= 1 tab(s), Oral, BID Moclips 325- 5 mg oral tablet, 1 tab(s), [...] ANUPAMA NEWTON MD on 04/06/2023 12:02 PM [facility] 04-06-2023 Note Reason for Consultation Admission [...] saline Hip Left - Pressure Area Description: Palo, White, Yellow, Drainage/Exudate, Edges , Granulation, Tunneling [...] saline Hip Right - Pressure Area Description: Palo, Epithelialization with crusted weeping Hip Right - [...] Signed by CARL García June04/06/2023 11:32 AM [facility] 04-06-2023 Note I was in completing a skin assessment and noted patient has an established LLQ colostomy. Patient has low output and uses a 2 piece 2 3/4 in. non drainable ostomy pouch. System intact with a pink moist stoma spout. Patient has own personal supplies for appliance changes. No needs at this time. Digitally Signed by CARL García June04/06/2023 11:22 AM [facility] 04-06-2023 Consult note Date of Service [...] present it has been followed at the [facility] for the past 1 year but because they found some more infection and pus in this area she was transferred over to [facility] from [facility] for further care and treatment Review [...] Aquacel Ag at the wound clinic in [place]. Found out there was more drainage she was transferred over to [facility] for further care and treatment Physical [...] her discharge patient can be followed at [place] [facility] by me at that time [...] tablet, 1 gram(s)= 1 tab(s), Oral, BID Moclips 325- 5 mg oral tablet, 1 tab(s), [...] MAXIMINO JOY MD on 04/06/2023 11:00 AM [facility] 04-05-2023 Note ORIGINAL EXAMINATION: CT OF [...] Sign Date: 04/06/2023 12:47:04 AM Ordering Provider: [facility] [place] 04-05-2023 History and physical note Date of Service 04/05/2023 decubitus Chief Complaint Infected decubitus ulcer History of Present Illness 57-year-old with a past medical history of multiple sclerosis wheelchair dependent, suprapubic catheter for neurogenic bladder, chronic deep venous ulcer presented to [facility] due to concern for fevers. There [...] does have issues with her MS. Per [facility] there was concern for soft blood [...] on wound cultures and blood culture from [facility]. Neurology consultation for MS. ESR and CRP. [...] HERBIE WYNNE MD on 04/05/2023 07:47 PM [facility] Assessment 1. Infected decubitus ulcer 2. Multiple sclerosis wheelchair dependent 3. Suprapubic Neurogenic bladder 4. Completed 10 days of cefepime for recent Pseudomonas UTI Plan 1. At this time we will go ahead and continue vancomycin and Zosyn. To go ahead and consult infectious disease and plastic surgery wound care. Blood cultures. Follow-up on wound cultures and blood culture from [facility]. Neurology consultation for MS. ESR and CRP. CT abdomen/pelvis. This document was transcribed using a voice recognition software and may contain typographical errors. [facility] Evaluation + Plan note No data available for this section [facility] Hospital Discharge instructions No data available for this section [facility] Progress note No data available for this section [facility] Summary Purpose Family History No Family History Records Found Advance Directives No Advanced Directives Records FoundNo Advanced Directives Records Found Additional Source Comments Care Team (unrecognized sect ion and content) Personnel Name: PHYSICIAN, NOT RECORDED Care Team Personnel Name: MUNIR NICKERSON DO Member Role: Primary Care Physician Address: Address: [address] [place] [address] Care Team Related Persons Name: JAMES OJEDA Care Team Personnel Name: Beasley Genna Manjeet Position: Bed Management Member Role: Other Name: MUNIR NICKERSON DO Member Role: Primary Care Physician Address: Address: [address] [place] [address] Care Team Related Persons Name: JAMES OJEDA Care Team (unrecognized sect ion and content) Care Team Personnel Name: MUNIR NICKERSON DO Member Role: Primary Care Physician Address: Address: [address] [place] [address] Care Team Related Persons Name: JAMES OJEDA Care Team Personnel Name: MUNIR NICKERSON DO Member Role: Primary Care Physician Address: Address: [address] [place] [address] Care Team Related Persons Name: JAMES OJEDA INFORMATION SOURCE (unrecogn ized section and content) DATE CREATED AUTHOR AUTHOR'S ORGANIZ ATION 04/25/2023 [facility] FOR RECORDS PERTAINING TO PATIENTS WHO ARE [...] BE BASED ON THE PRIMARY CLINICAL RECORDS. [employer] provides no warranty or guarantee of the accuracy or completeness of information in this document.
[2023-04-27 12:01] LABS: Erythrocyte Sedimentation Rate 44 mm/hr (0-30)
[2023-04-27 12:03] LABS: Absolute Neutrophil Count 3.2 X10^3/uL (2.0-7.7); Basophil# 0.04 X10^3/uL; Basophil% 0.7 % (0-1); Eosinophil# 0.39 X10^3/uL; Eosinophils% 6.4 % (0-5); Hematocrit 37.5 % (37-47); Hemoglobin 12.2 g/dL (12.0-15.0); Lymphocyte % 29.5 % (19-41); Mean Corp Hgb Conc 32.5 g/dL (32-36); Mean Corpuscular Volume 95.4 fL (81-99); Mean Platelet Vol. 11.2 fl (6.2-12.0); Monocyte# 0.65 X10^3/uL; Monocyte% 10.6 % (0-10); NRBC Flagged by Analyzer 0.3 % (0-5); Neutrophil # 3.22 X10^3/uL (2.7-7.7); Neutrophil % 52.6 % (47-70); Platelet Count 254 K/mm3 (150-450); RBC Distribution Width CV 15.1 % (11.6-14.6); RBC Distribution Width SD 53.7 fl (35.1-43.9); Red Blood Count 3.93 M/mm3 (4.2-5.4); White Blood Count 6.1 K/mm3 (4.4-11.0)
[2023-04-27 14:07] LABS: ALB/GLOB Ratio 0.9 RATIO (0.9-2.4); AST(SGOT) 11 U/L (15-37); Alanine Aminotransfer ALT/SGPT 23 U/L (13-56); Albumin, Serum 3.3 g/dL (3.2-5.0); Alkaline Phosphatase 98 U/L (45-117); Anion Gap 5 (5-15); BUN 21 mg/dL (7-18); BUN/Creat Ratio 64.8 RATIO (10-20); Calcium,Total 9.4 mg/dL (8.5-10.1); Chloride 106 mmol/L (98-107); Creatinine, Serum 0.32 mg/dL (0.55-1.02); EST Glomerular Filtration Rate 223 mL/min (>60); Est Glom Filt Rate - Afr Amer 269 mL/min (>60); Globulin 3.5 g/dL (2.2-4.2); Glucose 86 mg/dL (74-106); Potassium 4.2 mmol/L (3.5-5.1); Protein, Total 6.8 g/dL (6.4-8.2); Sodium Level 141 mmol/L (136-145)
== END | disposition home or self-care (01) ==
LOC: LABSPEC 11:38
PROVIDERS: PCP Family Medicine
DX: M86.10 Other acute osteomyelitis, unspecified site (principal)
CPT/HCPCS: 80053; 85025; 85652

== ENCOUNTER → 2023-05-01 | Outpatient (CLI) | payer MEDICARE, SELFPAY ==
[2018-02-01 11:47] VITALS: BMI 15.0
--- OUTSIDE RECORDS SUMMARY | 2023-05-01 13:41 | XMS RPT_ITS | CCD ---
Author Name Unknown Address [address] [place] [address] Organization [facility] Care Team Providers Care Client Service Manager Name Role Phone STEVEN Bartlett Michelle M Unavailable [phone] Preston Rojas Unavailable [phone] Now Nurse Unavailable Unavailable Butch De La Torre Unavailable Jessika Sanon LPN Unavailable [phone] Jessika Sanon LPN Unavailable [phone] PHYSICIAN, NOT RECORDED Primary Care Physician U navailable LIYA REID, DR AMARAL A Primary Care Physician Genna Beasley Unavailable Unavailable MEREDITH MONROY Attending Unavailable SELF Referring Unavailable MUNIR NICKERSON Primary Care Unavailable MAXIMINO JOY MD Attending Unavailable LIYA REID, DR MUNIR Mccabe Primary Care Unavailab DR MUNIR Tijerina DO Primary Care Unavailab MAXIMINO Cleaning MD Attending Unavailable LIYA DO, DR MUNIR Mccabe Primary Care Unavailab chance POE MD, MURRAY Attending Unavailable SHERRELL MARRERO, DR HERBIE Zaragoza Admitting Anselmo CARDENAS MD, DR HECTOR CUMMINS Consulting Unavaila KIA Chavira MD Consulting Unavailable MAXIMINO JOY MD Consulting Unavailable Allergies Allergy Classification Reported Allergen(s) Allergy Type Date of Onset Reaction(s) Facility (7 sources) ciprofloxacin drug allergy 7 [facility] Work Phone: (2 sources) Amoxicillin / Clavulanate; Translations: [amoxicillin-clavula chantal] Drug Allergy [facility] (1 source) Ciprofloxacin; Translations: [CIPROFLOXACIN] Drug Allergy 3 [facility] (1 source) Sulfamethoxazole / Trimethoprim; Translations: [SULFAMETHOXAZOLE-TR IMETHOPRIM] Drug Allergy 8 [facility] Medications Current Medications Medication Drug Class(es) Dates Sig (Normalized) Sig (Original) acetaminophen 325 mg oral capsule (2 sources) Start: 04-10-2023 Tylenol 325 mg oral capsule Dose : 650 mg =, Oral, q4h, PRN Pain, scale 1-3, 0 Refill(s) Start Date: 04/10/23 Status: Ordered baclofen 20 mg oral tablet (14 sources) gamma-Aminobutyr ic Acid-ergic Agonist Start: 04-05-2023 take 1 dose by mouth every four hours baclofen Dose : 20 mg =, Oral, q4hr, 0 Refill(s) Start Date: 04/05/23 Status: Ordered Completed/Discontinued Medications Medication Drug Class(es) Dates Sig (Normalized) Sig (Original) Dakins Full Strength 0.5% topical solution (2 sources) Start: 04-10-2023 Dakins Full Strength 0.5% topical solution Apply 1 kyle, Topical, BID, 0 Refill(s), Soln, 57.6 Start Date: 04/10/23 Status: Ordered methenamine hippurate 1000 mg oral tablet (2 sources) Start: 04-05-2023 methenamine hippurate 1 g oral tablet Dose : 1 gram(s) = 1 tab(s), Oral, BID, tab(s), 0 Refill(s) Start Date: 04/05/23 Status: Ordered nitrofurantoin, macrocrystals 25 mg / nitrofurantoin, monohydrate 75 mg oral capsule (8 sources) Start: 09-25-2016 End: 12-22-2016 MACROBID 100 MG CAPS 1 capsule twice daily NITROFURANTOIN MONOHYD MACRO [id number] Preston CHENG Problems Active Problems Problem Classification Problem Date Documented Date Episodic/Chronic Cancer of breast (1 source) Personal history of malignant neoplasm of breast; Translations: [Personal history of malignant neoplasm of breast] Episodic Chronic ulcer of skin (10 sources) Pressure ulcer of hip; Translations: [Pressure ulcer of right hip, stage 4] Onset: 04-05-2023 Chronic Infective arthritis and osteomyelitis (except that [...] temperature 98.24 [degF] DR HERBIE WYNNE MD [facility] 04-10-2023 16:05-0500 Diastolic Blood Pressure Non-Invasive 74 mm[Hg] DR HERBIE WYNNE MD [facility] 04-10-2023 16:05-0500 Heart rate 76 /min DR HERBIE WYNNE MD [facility] 04-10-2023 16:05-0500 Reason For Taking VItal Signs DR HERBIE WYNNE MD [facility] 04-10-2023 16:05-0500 Respiratory rate 18 /min DR HERBIE WYNNE MD [facility] 04-10-2023 16:05-0500 Systolic Blood Pressure Non-Invasive 120 mm[Hg] DR HERBIE WYNNE MD [facility] 04-10-2023 15:17-0500 Reason For Taking VItal Signs DR HERBIE WYNNE MD [facility] 04-10-2023 13:23-0500 Reason For Taking VItal Signs DR HERBIE WYNNE MD [facility] 04-10-2023 13:23-0500 Respiratory rate 16 /min DR HERBIE WYNNE MD [facility] 04-10-2023 10:30-0500 Blood Pressure Cuff Size DR HERBIE WYNNE MD [address] [place] [address] 04-10-2023 10:30-[address] HERBIE WYNNE MD [address] [place] [address] 04-10-2023 10:30-[address] HERBIE Chong MD [facility] 04-10-2023 10:30-0500 Body temperature 97.16 [degF] DR HERBIE WYNNE MD [address] [place] [address] 04-10-2023 10:30-0500 Diastolic Blood Pressure Non-Invasive 64 mm[Hg] DR HERBIE WYNNE MD [facility] 04-10-2023 10:30-0500 Heart rate 68 /min DR HERBIE WYNNE MD [facility] 04-10-2023 10:30-0500 Respiratory rate 16 /min DR HERBIE WYNNE MD [facility] 04-10-2023 10:30-0500 Systolic Blood Pressure Non-Invasive 96 mm[Hg] DR HERBIE WYNNE MD [facility] 04-10-2023 09:43-0500 Blood Pressure Cuff Size DR HERBIE WYNNE MD [address] [place] [address] 04-10-2023 09:43-[address] HERBIE WYNNE MD [address] [place] [address] 04-10-2023 09:43-[address] HERBIE Chong MD [address] [place] [address] 04-10-2023 09:43-0500 Diastolic Blood Pressure Non-Invasive 70 mm[Hg] DR HERBIE WYNNE MD [address] [place] [address] 04-10-2023 09:43-0500 Systolic Blood Pressure Non-Invasive 108 mm[Hg] DR HERBIE WYNNE MD [address] 04-10-2023 07:57-0500 Blood Pressure Cuff Size DR HERBIE WYNNE MD [address] 04-10-2023 07:57-[address] HERBIE WYNNE MD [address] [place] [address] 04-10-2023 07:57-[address] HERBIE Chong MD [address] [place] [address] 04-10-2023 07:57-0500 Body temperature 96.8 [degF] DR HERBIE WYNNE MD [address] 04-10-2023 07:57-0500 Heart rate 70 /min DR HERBIE WYNNE MD [address] [place] [address] 04-10-2023 03:51-0500 Body temperature 98.24 [degF] DR HERBIE WYNNE MD [address] 04-09-2023 23:52-0500 Body temperature 97.7 [degF] DR HERBIE WYNNE MD [address] 04-09-2023 23:52-0500 Mean blood pressure 73 mm[Hg] DR HERBIE WYNNE MD [address] [place] [address] 04-09-2023 14:50-0500 Mean blood pressure 72 mm[Hg] DR HERBIE WYNNE MD [address] [place] [address] 04-08-2023 18:23-0500 Body height [address] HERBIE WYNNE MD [address] 04-08-2023 18:23-0500 Body weight 57.[address] HERBIE WYNNE MD [address] 04-08-2023 18:23-0500 Body weight 19.93 kg/m2 DR HERBIE WYNNE MD [address] [place] [address] 04-08-2023 16:00-0500 Heart rate 68 /min DR HERBIE WYNNE MD [address] [place] [address] 04-08-2023 02:30-0500 Heart rate 59 /min DR HERBIE WYNNE MD [address] [place] [address] 04-07-2023 10:56-0500 Body temperature 97.88 [degF] DR HERBIE WYNNE MD [address] [place] [address] 04-06-2023 10:18-0500 Body temperature 98.06 [degF] DR HERBIE WYNNE MD [address] [place] [address] 04-06-2023 08:07-0500 Body height [address] HERBIE WYNNE MD [address] [place] [address] 04-06-2023 08:07-0500 Body weight 57.[address] HERBIE WYNNE MD [address] [place] [address] 04-06-2023 08:07-0500 Body weight 19.93 kg/m2 DR HERBIE WYNNE MD [address] [place] [address] 04-06-2023 03:20-0500 Body temperature 101.48 [degF] DR HERBIE WYNNE MD [facility] 04-05-2023 23:39-0500 Body temperature 102.38 [degF] DR HERBIE WYNNE MD [facility] 04-05-2023 22:33-0500 Mean blood pressure 65 mm[Hg] DR HERBIE WYNNE MD [facility] 04-05-2023 19:01-0500 Heart rate 81 /min DR HERBIE WYNNE MD [facility] 12-22-2016 16:32-0400 BMI (Body Mass Index) 18.79 kg/m2 Butch CHENG [facility] Work Phone: 12-22-2016 16:32-0400 Body Temperature 98.7 [degF] Butch CHENG [facility] Work Phone: 12-22-2016 16:32-0400 BP Diastolic 62 mm[Hg] Butch CHENG [facility] Work Phone: 12-22-2016 16:32-0400 BP Systolic 104 mm[Hg] Butch CHENG [facility] Work Phone: 12-22-2016 16:32-0400 Height 170.18 cm Butch CHENG [facility] Work Phone: 12-22-2016 16:32-0400 Pulse (Heart Rate) 71 /min Butch CHENG [facility] Work Phone: 12-22-2016 16:32-0400 Respiratory Rate 13 /min Butch CHENG [facility] Work Phone: 12-22-2016 16:32-0400 Weight 54.43 kg Butch CHENG [facility] Work Phone: 09-25-2016 12:25-0400 BMI (Body Mass Index) 18.79 kg/m2 Jessika Sanon LPN [facility] Work Phone: 09-25-2016 12:25-0400 Body Temperature 98.4 [degF] Jessika Sanon LPN [facility] Work Phone: 09-25-2016 12:25-0400 BP Diastolic 84 mm[Hg] Jessika Sanon LPN [facility] Work Phone: 09-25-2016 12:25-0400 BP Systolic 126 mm[Hg] Jessika Sanon LPN [facility] Work Phone: 09-25-2016 12:25-0400 Height 170.18 cm Jessika Sanon LPN [facility] Work Phone: 09-25-2016 12:25-0400 Pulse (Heart Rate) 74 /min Jessika Sanon LPN [facility] Work Phone: 09-25-2016 12:25-0400 Respiratory Rate 14 /min Jessika Sanon LPN [facility] Work Phone: 09-25-2016 12:25-0400 Weight 54.43 kg Jessika Sanon LPN [facility] Work Phone: Encounters Encounter Date Encounter Type Care Provider Facility Start: 04-29-2023 ambulatory MAXIMINO JOY MD Facili ty:A Start: 04-29-2023 End: 04-29-2023 Wound Care Center MAXIMINO JOY MD [facility] Start: 04-23-2023 End: 04-23-2023 ambulatory [facility] Facility:[facility] Start: 04-13-[address] MUNIR NICKERSON DO F acility:A Start: 04-05-2023 End: 04-10-2023 Evaluation and management of inpatient DR MUNIR NICKERSON DO Facility:A Start: 04-05-2023 End: 04-10-2023 Evaluation and management of inpatient DR HERBIE WYNNE MD [facility] Start: 02-27-2022 End: 02-27-[address] NELLIE JAIME DO [facility] Start: 02-18-2022 End: 06-06-[address] NELLIE JAIME DO [facility] Start: 04-17-2021 End: 06-27-2021 Wound Care MAXIMINO JOY MD [facility] Procedures Date Procedure Procedure Detail Performing Clinician [...] Phone: Start: 09-25-2016 End: 09-25-2016 Urinalysis Jessika Cogar ELECTROTYPER APPRENTICE Start: 09-25-2016 End: 09-25-2016 Urinalysis nonauto w/o scope Preston CHENG Work Phone: Start: 09-25-2016 End: 09-25-2016 Urine test visual color cmprsn meths Preston CHENG Work Phone: Start: 09-25-2016 End: 09-25-2016 Urine, test (choriogonadotropin presence) Preston CHENG Work Phone: Plan of Treatment Date Care Activity Detail Author Start: 12-22-2016 End: 12-22-2016 Appointment Appointment [facility] Work Phone: Start: 12-22-2016 End: 12-22-2016 Urinalysis complete panel - Urine *UAC- Urinalysis, Complete w/ Micro [facility] Work Phone: Start: 12-22-2016 End: 12-22-2016 Urinalysis complete panel - Urine *UAC- Urinalysis, Complete w/ Micro [facility] Work Phone: Start: 09-25-2016 End: 09-25-2016 Appointment Appointment [facility] Work Phone: Patient Education DYSURIA [facility] Work Phone: Payers Date Payer Category Payer Medicare [id number] 2022 Medicare [id number] 1965 Unknown [id number] 1965 Unknown [id number] 1965 Unknown [id number] Social History Date Type Detail Facility Tobacco smoking status [facility] Sex Assigned At Female [facility] Tobacco smoking status No Smoking Status Entered [facility] Functional Status Date Assessment Result Facility 04-10-2023 Functional Status Room check performed [facility] 04-10-2023 Functional Status [facility] 04-10-2023 Functional Status Done [facility] 04-10-2023 Functional Status 65 [facility] 04-10-2023 Functional Status Skin Care Prev entative Intervention(s) heel(s)s elevated [facility] 04-09-2023 Functional Status [facility] 04-09-2023 Functional Status One assist [facility] 04-09-2023 Functional Status [facility] 04-09-2023 [facility]-08[facility] 04-07-2023 Functional Status Dinner Percent 25 [facility] 04-06-2023 Functional Status [facility] 04-06-2023 Functional Status Adam kaminski Mental Status Date Assessment Result Facility 04-10-2023 Mental Status Oriented x 4 [facility] 04-10-2023 Mental Status [facility] 04-09-2023 Mental Status [facility] 04-09-2023 Mental Status [facility] 04-09-2023 Mental Status [facility] Clinical Notes 04-05-2023 to 04-11-2023 Note Date [...] Locations *1: This test was performed at: [facility], [address] [place] [address], [facility] , [facility] ([place]) 04-11-2023 Note . 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 Do not use any products that contain [...] 03/02/2006 Document Revised: 03/18/2018 Document Reviewed: 03/11/2018 [employer] Patient Education 2020 [employer]. Follow Up Care 04/05/2023 14:21:21 With:Adam Waddell will providing your IV medication and delivering this to your room. Call them with any questions at [phone] Address:Unknown When:1-2 days With:[facility] Address:Unknown When:1-2 days Comments:C RN for IV infusion and wound care. They will call you before coming out to the home. Call them with any questions at [phone] With:MUNIR NICKERSON DO Address: [address] [place] [address]- When:1-2 days Comments:Please call the office to schedule a follow-up appointment With:[facility] - Patient had home medication brought in. Please send home with patient upon discharge. Address: When:1-2 days [facility] 04-10-2023 Note Discharge Instructions Thank you for [...] room. Call them with any questions at [phone] When Within 1-2 days Follow Up with [facility] When Within 1-2 days Why: C RN for IV infusion and wound care. They will call you before coming out to the home. 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 Do not use any products that contain [...] 03/02/2006 Document Revised: 03/18/2018 Document Reviewed: 03/11/2018 [employer] Patient Education 2020 [employer]. Additional Information VACCINATE! IT SAVES LIVES! Members of the community who have not yet received the COVID-19 vaccine and would like to receive it can visit one of [facility] vaccine clinics. There are many vaccine clinic locations within the [facility]. For locations and available times, please visit [email or web address].ri io.gov/. It is important to note that some COVID mobile vaccine clinics are held outdoors and may be canceled in rainy or stormy conditions. To learn more about pediatric vaccinations (ages 5-11), we invite you to visit the [facility] webpage. [email or web address]://[email or web address] [email or web address]/pa [email or web address]-Tggqutnudlz-[email or web address] szxs-Kzayz-Ulrwlerlh.html To learn more about the COVID-19 vaccine, we invite you to visit the CDC website for a list of frequently asked questions.https://www.cdc.gov/cor onavirus/2019-ncov/vaccines/faq.h tml [email or web address] Patient Portal Access Instructions: Stay connected with your healthcare team and access your personal medical information anytime with the [email or web address] Patient Portal. Please follow the directions below to create your [email or web address] account: 1.Access the email account you provided upon registration to the hospital/physician office.2.Look for an invitation email from [facility].3.Open the email and access the invitation link: Accept Invitation to [facility].4.Fill in the required biggs to create your account. To access your account, visit [email or web address]. Click the blue button labeled Access Patient [...] you will allow to register on the [facility] Patient Portal for access to your information. You can also access the [facility] Patient Portal on the [facility] kyle. Simply click on Patient Portal and then log into your account. If you would like to receive a full copy of your medical records, please contact the [facility] Medical Records Department by calling [phone], Thursday through Thursday between 8 a.m. and [...] Call your local pharmacy or go to http://bit.popchips/8Z6Fx7c to find one close to you.3.Make use of household items: Use cat litter or old coffee grounds to dispose medications if other options are not available. Mix your drugs with these household products, seal them in an airtight container and throw it into the garbage. Call [facility]: [phone] to be sure your drugs can be [...] aware that I should contact my doctor. Patient/Senior Account Executive Signature: Date/Time: Relationship to Patient: ____ Witness Name/Signature: Date/Time: [facility] 04-10-2023 Discharge summary Date of Service 04.10.23 [...] 1 cap(s), Oral, TID, Provide Lactobacillus tablets tigj-eoa-utwwclv is okay, twice a day for 2 [...] Topical two (2) times a day. Unchanged [id number] Milligram by mouth every 4 hours. dalfampridine [...] room. Call them with any questions at [phone] When Within 1-2 days Follow Up with [facility] When Within 1-2 days Why: [facility] RN for IV infusion and wound care. They will call you before coming out to the home. Call them with any questions at [phone] Follow Up with MUNIR NICKERSON DO When Within 1-2 days Why: Please call the office to schedule a follow-up appointment Where: [address] [place] [address]- Follow Up with [facility] - Patient [...] by MARTHA PACE on 04/10/2023 04:14 PM [facility] 04-10-2023 Procedure note VASCULAR ACCESS TEAMPOST PROCEDURE [...] LENGTH:38 cm EXTERNAL LENGTH:0cm ARM CIRC:_26cm LOT #:[id number] COMPLICATIONS: None INSERTED BY: Janelle Remy RN, assisted by Raheem Valera RN PLAN:_ PICC placement confirmed in lower SVC per ECG technology with Maximum P wave and absence of negative deflection/ Flushes easily with good blood return. Okay to use PICC now. Primary RN notified. Digitally Signed by CARL Remy on 04/10/2023 01:05 PM [facility] 04-10-2023 Infectious disease Progress note Date of [...] Katty Turcios RN on 04/10/2023 11:13 AM [facility] 04-10-2023 Note . MICRO - Microbiology PROCEDURE: [...] Locations *1: This test was performed at: [facility], [address] [place] [address], [id number] , [facility] ([place]) 04-10-2023 Infectious disease Progress note Date of [...] Katty Turcios RN on 04/10/2023 11:13 AM [facility] 04-10-2023 Note . MICRO - Microbiology PROCEDURE: Urine Culture [*1] SOURCE: Urine, Straight BODY SITE: Catherized COLLECTED DATE/TIME: 04/05/2023 23:51 EST RECEIVED DATE/TIME: 04/06/2023 20:55 EST START DATE/TIME: 04/06/2023 20:55 EST FREE TEXT SOURCE: FINAL REPORTS Final Report [] Verified Date/Time/Personnel: 04/10/2023 08:45 EST 1,000 cfu/ml Staphylococcus aureus 1,000 cfu/ml Kayley albicans Contact Microbiology within 72 hours if further identification is indicated ([id number]). [place] counts from a single urine are equivocal in determining infection vs. colonization of yeast. Multiple cultures at least 24 hours apart may be helpful in differentiating colonization from infection. PRELIMINARY REPORTS Preliminary Report [] Verified Date/Time/Personnel: 04/09/2023 08:45 EST 1,000 cfu/ml Staphylococcus aureus COLTON to follow 1,000 cfu/ml Kayley albicans Contact Microbiology within 72 hours if further identification is indicated ([id number]). [place] counts from a single urine are equivocal [...] Locations *1: This test was performed at: [facility], [address] [place] [address], [facility] , [facility] ([place]) 04-09-2023 Infectious disease Progress note Date of [...] Result Date: April 05, 2023 Verified By: JUNO GLEZ MD CLINICAL STATEMENT: IMPRESSION: Right ischial decubitus ulcer [...] and multiple decubitus ulcers who presented to [facility] due to concern of fevers and [...] CARDENAS BA, MD on 04/09/2023 04:16 PM [facility] 04-09-2023 Note Date of Service 04.09.23 Chief [...] by MARTHA PACE on 04/09/2023 04:00 PM [facility] 04-09-2023 Note . MICRO - Microbiology PROCEDURE: [...] Locations *1: This test was performed at: [facility], [address] [place] [address], [facility] , [facility] ([place]) 04-09-2023 Procedure note Date of Service April [...] MAXIMINO JOY MD on 04/09/2023 10:57 AM [facility] 04-08-2023 Note Date of Service 04.08.23 Chief [...] days. Patient reports her urine culture from [facility] showed Klebsiella so she is concerned [...] showing pseudomonas, IV antibiotics added and will lurdes need IV for home. ID to see [...] 16:45:00 EST Digitally Signed by MARTHA PACE APRN-AUTOMATIC [employer]MER on 04/08/2023 05:25 PM Digitally Signed by MARTHA PACE on 04/08/2023 05:26 PM [facility] 04-08-2023 Infectious disease Progress note Hip wound cultures is revealing Pseudomonas species, will start the patient on meropenem pending sensitivity Digitally Signed by HECTOR CARDENAS BA, MD on 04/08/2023 04:30 PM [facility] 04-08-2023 Progress note Date of Service 04/07/2023 [...] Dakin's solution packing. Post-Procedure Exam Appeared much bus cleaner Complications None Estimated Blood Loss 35 cc Total Time 25 minutes Assessment/Plan MS (multiple sclerosis) Osteomyelitis Follow Up/Recommendation Continue with the Dakin's solution dressings for the time being at her discharge we can change her to Aquacel Ag. Digitally Signed by MAXIMINO JOY MD on 04/08/2023 11:54 AM [facility] 04-08-2023 Note ORIGINAL EXAMINATION: ONE XRAY VIEW [...] Sign Date: 04/08/2023 12:16:29 AM Ordering Provider: [facility] 04-07-2023 Note Date of Service [...] by MARTHA PACE on 04/07/2023 04:46 PM [facility] 04-07-2023 Note Date of Service 04.07.23 Chief [...] by MARTHA PACE on 04/07/2023 04:46 PM [facility] 04-06-2023 Infectious disease Consult note Date of Service 04/06/23 Reason for Consultation Infected decubitus ulcer Referring Physician Dr Young History of Present Illness This is a 57-year-old with a past medical history of multiple sclerosis wheelchair dependent, suprapubic catheter for neurogenic bladder, chronic deep venous ulcer presented to [facility] due to concern for fevers. There [...] does have issues with her MS. Per [facility] there was concern for soft blood [...] and multiple decubitus ulcers who presented to [facility] due to concern of fevers and [...] tablet, 1 gram(s)= 1 tab(s), Oral, BID [place] Ari 325- 5 mg oral tablet, 1 tab(s), [...] qualifying data available. Digitally Signed by Mary Rosario Scribe on 04/06/2023 02:08 PM Digitally Signed by HECTOR CARDENAS BA, MD on 04/06/2023 04:00 PM [facility] 04-06-2023 Neurology Consult note Date of Service [...] on Tysabri at baseline, follows up with [facility]. Per patient she was started on Ocrevus in the past by [facility] and then later developed breast [...] Result Date: April 05, 2023 Verified By: JUNO GLEZ MD CLINICAL STATEMENT: IMPRESSION: Right ischial decubitus ulcer [...] on Tysabri at baseline, follows up with [facility]. Per patient she was started on Ocrevus in the past by [facility] and then later developed breast [...] Plan: -Per patient she follows up with [facility], gets her neuroimaging done there. -Discussed about checking MRI brain/spine with patient but at present she would want to hold off. Agree with the same as patient's presentation is more concerning for infection and she is feeling better with antibiotics, also follows up with [facility] for her neuroimaging. -Labs reviewed check UA, [...] answered This note has been generated using Watchsend dictation software. It may contain incorrect words, [...] tablet, 1 gram(s)= 1 tab(s), Oral, BID [place] Ari 325- 5 mg oral tablet, 1 tab(s), [...] ANUPAMA NEWTON MD on 04/06/2023 12:02 PM [facility] 04-06-2023 Note Reason for Consultation Admission From: [...] saline Hip Left - Pressure Area Description: Shub[place], White, Yellow, Drainage/Exudate, Edges , Granulation, Tunneling [...] saline Hip Right - Pressure Area Description: Shub[place], Epithelialization with crusted weeping Hip Right - [...] Signed by CARL García June04/06/2023 11:32 AM [facility] 04-06-2023 Note I was in completing a skin assessment and noted patient has an established LLQ colostomy. Patient has low output and uses a 2 piece 2 3/4 in. non drainable ostomy pouch. System intact with a pink moist stoma spout. Patient has own personal supplies for appliance changes. No needs at this time. Digitally Signed by CARL García June04/06/2023 11:22 AM [facility] 04-06-2023 Consult note Date of Service April [...] present it has been followed at the [facility] for the past 1 year but because they found some more infection and pus in this area she was transferred over to [facility] from [facility] for further care and treatment Review of [...] Aquacel Ag at the wound clinic in [place]. Found out there was more drainage she was transferred over to [facility] for further care and treatment Physical Exam [...] her discharge patient can be followed at [facility] by me at that time [...] tablet, 1 gram(s)= 1 tab(s), Oral, BID [place] Ari 325- 5 mg oral tablet, 1 tab(s), [...] MAXIMINO JOY MD on 04/06/2023 11:00 AM [facility] 04-05-2023 Note ORIGINAL EXAMINATION: CT OF THE [...] Sign Date: 04/06/2023 12:47:04 AM Ordering Provider: [facility] 04-05-2023 History and physical note Date of Service 04/05/2023 decubitus Chief Complaint Infected decubitus ulcer History of Present Illness 57-year-old with a past medical history of multiple sclerosis wheelchair dependent, suprapubic catheter for neurogenic bladder, chronic deep venous ulcer presented to [facility] due to concern for fevers. There is [...] does have issues with her MS. Per [facility] there was concern for soft blood [...] on wound cultures and blood culture from [facility]. Neurology consultation for MS. ESR and [...] HERBIE WYNNE MD on 04/05/2023 07:47 PM [facility] Assessment 1. Infected decubitus ulcer 2. Multiple sclerosis wheelchair dependent 3. Suprapubic Neurogenic bladder 4. Completed 10 days of cefepime for recent Pseudomonas UTI Plan 1. At this time we will go ahead and continue vancomycin and Zosyn. To go ahead and consult infectious disease and plastic surgery wound care. Blood cultures. Follow-up on wound cultures and blood culture from [facility]. Neurology consultation for MS. ESR and CRP. CT abdomen/pelvis. This document was transcribed using a voice recognition software and may contain typographical errors. [facility] Evaluation + Plan note No data available for this section [facility] Hospital Discharge instructions No data available for this section [facility] Progress note No data available for this section [facility] Summary Purpose Family History No Family History Records Found Advance Directives No Advanced Directives Records FoundNo Advanced Directives Records Found Additional Source Comments Care Team (unrecognized sect ion and content) Personnel Name: PHYSICIAN, NOT RECORDED Care Team Personnel Name: MUNIR NICKERSON DO Member Role: Primary Care Physician Address: Address: [address] [place] [address] Care Team Related Persons Name: JAMES OJEDA Care Team Personnel Name: Genna Beasley Position: Bed Management Member Role: Other Name: MUNIR NICKERSON DO Member Role: Primary Care Physician Address: Address: [address] [place] [address] Care Team Related Persons Name: JAMES OJEDA Care Team Personnel Name: Genna Beasley Position: Bed Management Member Role: Other Name: MUNIR NICKERSON DO Member Role: Primary Care Physician Address: Address: [address] [place] [address] Care Team Related Persons Name: JAMES OJEDA Care Team (unrecognized sect ion and content) Care Team Personnel Name: MUNIR NICKERSON DO Member Role: Primary Care Physician Address: Address: [address] [place] [address] Care Team Related Persons Name: JAMES OJEDA Care Team Personnel Name: MUNIR NICKERSON DO Member Role: Primary Care Physician Address: Address: [address] [place] [address] Care Team Related Persons Name: JAMES OJEDA INFORMATION SOURCE (unrecogn ized section and content) DATE CREATED AUTHOR AUTHOR'S ORGANIZ ATION 04/30/2023 [facility] PERTAINING TO PATIENTS WHO ARE [...] BE BASED ON THE PRIMARY CLINICAL RECORDS. [facility] provides no warranty or guarantee of the accuracy or completeness of information in this document.
[2023-05-01 15:42] LABS: Color, Urine Yellow (Yellow); Glucose, Dipstick Normal (Normal); Ketone-Dipstick Negative (Negative); Leukocyte Esterase-Dipstick 500 /ul (Negative); Nitrite-Dipstick Negative (Negative); Occult Blood-Urine 150 /ul (Negative); Protein-Dipstick Negative (Negative); Specific Gravity, Urine 1.015 (1.002-1.030); Urine Bilirubin Dipstick Negative (Negative); Urine Clarity Sl. Cloudy (Clear); Urine Urobilinogen Normal (Normal)
== END | disposition home or self-care (01) ==
LOC: LABSPEC 13:22
PROVIDERS: PCP Family Medicine; Visit Provider Family Medicine
DX: N39.0 Urinary tract infection, site not specified (principal)
CPT/HCPCS: 81002; 87086; 87088

== ENCOUNTER → 2023-05-04 | Outpatient (CLI) | payer MEDICARE, SELFPAY ==
[2018-02-01 11:47] VITALS: BMI 15.0
[2023-05-04 13:23] LABS: Absolute Lymphocyte Count 2.11 X10^3/uL (0.83-4.51); Absolute Neutrophil Count 3.9 X10^3/uL (2.0-7.7); Basophil# 0.05 X10^3/uL; Basophil% 0.7 % (0-1); Eosinophil# 0.54 X10^3/uL; Eosinophils% 7.4 % (0-5); Erythrocyte Sedimentation Rate 32 mm/hr (0-30); Hematocrit 38.3 % (37-47); Hemoglobin 12.1 g/dL (12.0-15.0); Lymphocyte # 2.11 X10^3/ul (0.83-4.51); Lymphocyte % 28.8 % (19-41); Mean Corp Hgb Conc 31.6 g/dL (32-36); Mean Corpuscular Hgb 30.1 pg (27.0-32.0); Mean Corpuscular Volume 95.3 fL (81-99); Mean Platelet Vol. 11.3 fl (6.2-12.0); Monocyte# 0.75 X10^3/uL; Monocyte% 10.2 % (0-10); NRBC Flagged by Analyzer 0.3 % (0-5); Neutrophil # 3.85 X10^3/uL (2.7-7.7); Neutrophil % 52.5 % (47-70); Platelet Count 253 K/mm3 (150-450); RBC Distribution Width CV 15.2 % (11.6-14.6); RBC Distribution Width SD 53.5 fl (35.1-43.9); Red Blood Count 4.02 M/mm3 (4.2-5.4); White Blood Count 7.3 K/mm3 (4.4-11.0)
[2023-05-04 13:38] LABS: ALB/GLOB Ratio 0.9 RATIO (0.9-2.4); AST(SGOT) 15 U/L (15-37); Alanine Aminotransfer ALT/SGPT 28 U/L (13-56); Albumin, Serum 3.1 g/dL (3.2-5.0); Alkaline Phosphatase 103 U/L (45-117); Anion Gap 4 (5-15); BUN 19 mg/dL (7-18); BUN/Creat Ratio 54.3 RATIO (10-20); Calcium,Total 9.6 mg/dL (8.5-10.1); Chloride 106 mmol/L (98-107); Creatinine, Serum 0.35 mg/dL (0.55-1.02); EST Glomerular Filtration Rate 204 mL/min (>60); Est Glom Filt Rate - Afr Amer 246 mL/min (>60); Globulin 3.6 g/dL (2.2-4.2); Glucose 93 mg/dL (74-106); Potassium 4.2 mmol/L (3.5-5.1); Protein, Total 6.7 g/dL (6.4-8.2); Sodium Level 140 mmol/L (136-145)
--- OUTSIDE RECORDS SUMMARY | 2023-05-04 13:54 | XMS RPT_ITS | CCD ---
Author Name Unknown Address [id number] [place] [address] Organization [facility] Care Team Providers Care Fire Crew Worker Name Role Phone STEVEN Bartlett Michelle M Unavailable Preston Rojas Unavailable [phone] Now Nurse Unavailable Unavailable Butch De La Torre Unavailable Jessika Sanon LPN Unavailable Cogar MAINTENANCE MECHANICJessika Huerta N Unavailable [phone] PHYSICIAN, NOT RECORDED Primary Care Physician U navailable LIYA REID, DR AMARAL A Primary Care Physician Genna Beasley Unavailable Unavailable MAXIMINO JOY MD Attending Unavailable LIYA REID, DR AMARAL A Primary Care Unavailab chance SOLIZ DO, DR MUNIR Mccabe Primary Care Unavailab MAXIMINO Cleaning MD Attending Unavailable LIYA REID, DR UMNIR Mccabe Primary Care Unavailab chance POE MD, MURRAY Attending Unavailable SHERRELL MARRERO, DR HERBIE Zaragoza Admitting Anselmo CARDENAS MD, DR HECTOR CUMMINS Consulting Unavaila yariel GOLDSTEIN MD, KIA Consulting Unavailable MAXIMINO JOY MD Consulting Unavailable Munir Soliz DO Primary Care Provider CHEMA LOCKE Attending Unavailable SELF Referring Unavailable MUNIR SOLIZ Primary Care Unavailable Allergies Allergy Classification Reported Allergen(s) Allergy Type Date of Onset Reaction(s) Facility (7 sources) ciprofloxacin drug allergy 7 [facility] Work Phone: (2 sources) Amoxicillin / Clavulanate; Translations: [amoxicillin-clavulan ate] Drug Allergy diarrhea [facility] (2 sources) Ciprofloxacin; Translations: [CIPROFLOXACIN] Drug Allergy 3 Intolerance [facility] (2 sources) Sulfamethoxazole / Trimethoprim; Translations: [SULFAMETHOXAZOLE-TRI METHOPRIM] Drug Allergy 8 GI Upset [facility] Medications Current Medications Medication Drug Class(es) Dates Sig (Normalized) Sig (Original) acetaminophen 325 mg oral capsule (2 sources) Start: 04-10-2023 Tylenol 325 mg oral capsule Dose : 650 mg =, Oral, q4h, PRN Pain, scale 1-3, 0 Refill(s) Start Date: 04/10/23 Status: Ordered baclofen 20 mg oral tablet (15 sources) gamma-Aminobutyr ic Acid-ergic Agonist Start: 04-05-2023 take 1 dose by mouth every four hours baclofen Dose : 20 mg =, Oral, q4hr, 0 Refill(s) Start Date: 04/05/23 Status: Ordered Completed/Discontinued Medications Medication Drug Class(es) Dates Sig (Normalized) Sig (Original) Biotin (1 source) take 100 mg by mouth three times daily BIOTIN ORAL Take 100 mg by mouth three times daily. 0 Active Problems Active Problems Problem Classification Problem Date Documented Date Episodic/Chronic Cancer of breast (1 source) Infiltrating lobular carcinoma of breast; Translations: [Malignant neoplasm of unspecified site of left female breast] Onset: 01-11-2018 01-11-2018 Chronic Cancer of breast (1 source) Personal history [...] Osteomyelitis; Translations: [Osteomyelitis, unspecified] Onset: 04-07-2023 Chronic Menopausal disorders (1 source) Menopausal symptom; Translations: [Menopausal and female climacteric states] Onset: 09-29-2011 09-29-2011 Chronic Menstrual disorders (1 source) Intermenstrual bleeding - irregular; Translations: [Excessive and frequent menstruation with irregular cycle] Onset: 05-05-2006 05-05-2006 Chronic Multiple sclerosis (6 sources) Multiple sclerosis; Translations: [Multiple sclerosis] Onset: 10-29-2006 Chronic Other acquired deformities (2 sources) Contracture [...] pulmonary edema; Translations: [Chronic pulmonary edema] Chronic Paralysis (1 source) Spastic tetraplegia; Translations: [Quadriplegia, unspecified] 04-23-2023 Chronic Past or Other Problems Problem Classification Problem Date Documented Da te Episodic/Chronic Gastrointestinal hemorrhage (1 source) Hemorrhage of rectum and anus; Translations: [Hemorrhage of anus and rectum] Onset: 04-23-2007 04-23-2007 Episodic Urinary tract infections (7 sources) Urinary tract infectious disease; Translations: [Urinary tract infection, site not specified] Onset: 09-25-2016 09-25-2016 Episodic Results Test Name Value Interpretation Reference Range Facil ity Vital Signs Date Time Vital Sign Value Performing Clinician Facility 04-10-2023 16:05-0500 Body temperature 98.24 [degF] DR HERBIE WYNNE MD [facility] 04-10-2023 16:05-0500 Diastolic Blood Pressure Non-Invasive 74 mm[Hg] DR HERBIE WYNNE MD [facility] 04-10-2023 16:05-0500 Heart rate 76 /min DR HERBIE WYNNE MD [facility] 04-10-2023 16:05-0500 Reason For Taking VItal Signs DR HERBIE WYNNE MD [facility] 04-10-2023 16:05-0500 Respiratory rate 18 /min DR HERBIE WYNNE MD [facility] 04-10-2023 16:05-0500 Systolic Blood Pressure Non-Invasive 120 mm[Hg] DR HERBIE WYNNE MD [address] [place] [address] 04-10-2023 15:17-0500 Reason For Taking VItal Signs DR HERBIE WYNNE MD [address] [place] [address] 04-10-2023 13:23-0500 Reason For Taking VItal Signs DR HERBIE WYNNE MD [address] [place] [address] 04-10-2023 13:23-0500 Respiratory rate 16 /min DR HERBIE WYNNE MD [address] [place] [address] 04-10-2023 10:30-0500 Blood Pressure Cuff Size DR HERBIE WYNNE MD [address] [place] [address] 04-10-2023 10:30-[address] HERBIE WYNNE MD [address] [place] [address] 04-10-2023 10:30-[address] HERBIE Chong MD [address] [place] [address] 04-10-2023 10:30-0500 Body temperature 97.16 [degF] DR HERBIE WYNNE MD [address] [place] [address] 04-10-2023 10:30-0500 Diastolic Blood Pressure Non-Invasive 64 mm[Hg] DR HERBIE WYNNE MD [address] [place] [address] 04-10-2023 10:30-0500 Heart rate 68 /min DR HERBIE WYNNE MD [address] [place] [address] 04-10-2023 10:30-0500 Respiratory rate 16 /min DR HERBIE WYNNE MD [address] [place] [address] 04-10-2023 10:30-0500 Systolic Blood Pressure Non-Invasive 96 mm[Hg] DR HERBIE WYNNE MD [address] [place] [address] 04-10-2023 09:43-0500 Blood Pressure Cuff Size DR HERBIE WYNNE MD [facility] 04-10-2023 09:43-[address] HERBIE WYNNE MD [address] [place] [address] 04-10-2023 09:43-[address] HERBIE Chong MD [address] [place] [address] 04-10-2023 09:43-0500 Diastolic Blood Pressure Non-Invasive 70 mm[Hg] DR HERBIE WYNNE MD [address] [place] [address] 04-10-2023 09:43-0500 Systolic Blood Pressure Non-Invasive 108 mm[Hg] DR HERBIE WYNNE MD [address] [place] [address] 04-10-2023 07:57-0500 Blood Pressure Cuff Size DR HERBIE WYNNE MD [address] [place] [address] 04-10-2023 07:57-[address] HERBIE WYNNE MD [address] [place] [address] 04-10-2023 07:57-[address] HERBIE Chong MD [address] [place] [address] 04-10-2023 07:57-0500 Body temperature 96.8 [degF] DR HERBIE WYNNE MD [address] [place] [address] 04-10-2023 07:57-0500 Heart rate 70 /min DR HERBIE WYNNE MD [address] [place] [address] 04-10-2023 03:51-0500 Body temperature 98.24 [degF] DR HERBIE WYNNE MD [address] [place] [address] 04-09-2023 23:52-0500 Body temperature 97.7 [degF] DR HERBIE WYNNE MD [address] [place] [address] 04-09-2023 23:52-0500 Mean blood pressure 73 mm[Hg] DR HERBIE WYNNE MD [address] [place] [address] 04-09-2023 14:50-0500 Mean blood pressure 72 mm[Hg] DR HERBIE WYNNE MD [address] [place] [address] 04-08-2023 18:23-0500 Body height [address] HERBIE WYNNE MD [address] [place] [address] 04-08-2023 18:23-0500 Body weight 57.[address] HERBIE WYNNE MD [address] [place] [address] 04-08-2023 18:23-0500 Body weight 19.93 kg/m2 DR HERBIE WYNNE MD [address] [place] [address] 04-08-2023 16:00-0500 Heart rate 68 /min DR HERBIE WYNNE MD [address] [place] [address] 04-08-2023 02:30-0500 Heart rate 59 /min DR HERBIE WYNNE MD [address] [place] [address] 04-07-2023 10:56-0500 Body temperature 97.88 [degF] DR HERBIE WYNNE MD [address] [place] [address] 04-06-2023 10:18-0500 Body temperature 98.06 [degF] DR HERBIE WYNNE MD [address] [place] [address] 04-06-2023 08:07-0500 Body height [address] HERBIE WYNNE MD [address] [place] [address] 04-06-2023 08:07-0500 Body weight 57.[address] HERBIE YWNNE MD [address] [place] [address] 04-06-2023 08:07-0500 Body weight 19.93 kg/m2 DR HERBIE WYNNE MD [address] [place] [address] 04-06-2023 03:20-0500 Body temperature 101.48 [degF] DR HERBIE WYNNE MD [facility] 04-05-2023 23:39-0500 Body temperature 102.38 [degF] DR HERBIE WYNNE MD [facility] 04-05-2023 22:33-0500 Mean blood pressure 65 mm[Hg] DR HERBIE WYNNE MD [facility] 04-05-2023 19:01-0500 Heart rate 81 /min DR HERBIE WYNNE MD [facility] 12-22-2016 16:32-0400 BMI (Body Mass Index) 18.79 kg/m2 Butch CHENG [facility] Work Phone: 12-22-2016 16:32-0400 Body Temperature 98.7 [degF] Butch CHENG [facility] Work Phone: 12-22-2016 16:32-0400 BP Diastolic 62 mm[Hg] Butch CHENG [facility] Work Phone: 12-22-2016 16:32-0400 BP Systolic 104 mm[Hg] Butch CHENG [facility] Work Phone: 12-22-2016 16:32-0400 Height 170.18 cm Butch CHENG [facility] Work Phone: [...] Body Temperature 98.4 [degF] Jessika Sanon LPN [facility] Work Phone: 09-25-2016 12:25-0400 BP Diastolic 84 mm[Hg] Jessika Sanon LPN [facility] Work Phone: 09-25-2016 12:25-0400 BP Systolic 126 mm[Hg] Jessika Sanon LPN [facility] Work Phone: 09-25-2016 12:25-0400 Height 170.18 cm Jessika Sanon LPN [facility] Work Phone: 09-25-2016 12:25-0400 Pulse (Heart Rate) 74 /min Jessika Sanon LPN [facility] Work Phone: 09-25-2016 12:25-0400 Respiratory Rate 14 /min Jessika Sanon LPN [facility] Work Phone: 09-25-2016 12:25-0400 Weight 54.43 kg Jessika Sanon LPN [facility] Work Phone: Encounters Encounter Date Encounter Type Care Provider Facility Start: 04-29-2023 ambulatory MAXIMINO JOY MD Facili ty:A Start: 04-29-2023 End: 04-29-2023 Wound Care Center MAXIMINO JOY MD [facility] Start: 04-23-2023 End: 04-23-2023 ambulatory CHEMA LOCKE Facility:[facility] Start: 04-23-2023 End: 04-23-2023 Patient encounter procedure Chema Locke MD Work Phone: [facility] Procedures Date Procedure Procedure Detail Performing Clinician [...] Start: 09-25-2016 End: 09-25-2016 Urinalysis Jessika Sanon MAINTENANCE MECHANIC Start: 09-25-2016 End: 09-25-2016 Urinalysis nonauto w/o scope Preston Manzo PA Work Phone: Start: 09-25-2016 End: 09-25-2016 Urine test visual color cmprsn meths Preston Manzo PA Work Phone: Start: 09-25-2016 End: 09-25-2016 Urine, test (choriogonadotropin presence) Preston CHENG Work Phone: Start: 06-28-2008 Lipid 1996 panel - S lana or Plasma Chema Locke MD Work Phone: Plan of Treatment Date Care Activity Detail Author Start: 11-06-2025 Diabetes Screening Diabetes Screenin g [facility] Start: 04-19-2024 Screening for malign ant neoplasm of cervix [facility] Start: 03-16-2023 Depression Assessment Depression Ass essment [facility] Start: 11-14-2022 Influenza vaccination Influenza Vacc ine (#1) [facility] Start: 12-11-2017 Screening for malign ant neoplasm of breast Mammogram Screening [facility] Start: 12-22-2016 End: 12-22-2016 Appointment Appointment [facility] Work Phone: Start: 12-22-2016 End: 12-22-2016 Urinalysis complete panel - Urine *UAC- Urinalysis, Complete w/ Micro [facility] Work Phone: Start: 12-22-2016 End: 12-22-2016 Urinalysis complete panel - Urine *UAC- Urinalysis, Complete w/ Micro [facility] Work Phone: Start: 09-25-2016 End: 09-25-2016 Appointment Appointment [facility] Work Phone: Start: 09-02-2015 Shingrix Vaccine (1 of 2) Shingrix Vaccine (1 of 2) [facility] Start: 06-28-2013 Lipid panel Lipid Screening [facility] Start: 05-11-2012 Screening for malign ant neoplasm of colon [facility] Start: 2010 Screening for malign ant neoplasm of colon [facility] Start: 09-02-2009 Urine microalbumin profile DTaP,Tdap,Td Vaccine (2 - Tdap) [facility] Start: 03-03-1966 Covid-19 Vaccine (#1) Covid-19 Vacci ne (#1) [facility] Start: 1965 Hepatitis B Vaccine (1 of 3 - 3-dose series) Hepatitis B Vaccine (1 of 3 - 3-dose series) [facility] Patient Education DYSURIA [facility] Payers Date Payer Category Payer Medicare [id number] 2022 Medicare [employer] [place] [id number] 2022-Present [phone] [address] [place] [address] HMO [id number] 2022 Unknown [id number] 1965 Unknown [id number] 1965 Unknown [id number] 1965 Unknown [id number] Social History Date Type Detail Facility Tobacco smoking status Former smoker [facility] Sex Assigned At Female [facility] Tobacco smoking status No Smokin g Status Entered [facility] Start: 10-30-2010 Tobacco smoking stat us NHIS Ex-smoker [facility] Work Phone: End: 03-16-1989 History of tobacco use Current smoker [facility] Work Phone: End: 03-16-1989 History of tobacco use Cigarette Smoker [facility] Work Phone: Start: 10-30-2010 Tobacco use and exposure Smokeless tobacco non-user [facility] Work Phone: Start: 05-03-2023 Alcohol intake Current drinke r of alcohol (finding) [facility] Start: 04-23-2023 End: 05-03-2023 History of Social function [facility] Start: 04-23-2023 End: 05-03-2023 Tobacco use panel [facility] National Score (1-100), lower number is lower risk 69 [facility] Start: 1965 Sex Assigned At Not on file C [facility] Functional Status Date Assessment Result Facility 04-10-2023 Functional Status Room check performed [facility] 04-10-2023 Functional Status [facility] 04-10-2023 Functional Status Done [facility] 04-10-2023 Functional Status 65 [facility] 04-10-2023 Functional Status Skin Care Prev entative Intervention(s) heel(s)s elevated [facility] 04-09-2023 Functional Status [facility] 04-09-2023 Functional Status One assist [facility] 04-09-2023 Functional Status [facility] 04-09-2023 Functional Status [facility] 04-08-2023 Functional Status [facility] 04-07-2023 Functional Status Dinner Percent 25 [facility] 04-06-2023 Functional Status [facility] 04-06-2023 Functional Status [facility] Mental Status Date Assessment Result Facility 04-10-2023 Mental Status Oriented x 4 [facility] 04-10-2023 Mental Status [facility] 04-09-2023 Mental Status [facility] 04-09-2023 Mental Status [facility] 04-09-2023 Mental Status [facility] Clinical Notes 04-05-2023 to 04-23-2023 Patient InstructionsChema Locke MD - 04/23/2023 12:30 PM EST Note Date & Type Note Facility 04-23-2023 Note HNO ID: [id number] Author: CHEMA LOCKE MD Service: ? Author Type: Physician Type: Progress Notes Filed: 05/03/2023 11:26 Note Text: REFERRAL SOURCE: Dr. Sin Raygoza FOLLOWED BY: Munir Soliz DO REASON FOR CONSULTATION: rehabilitation consult. PRINCIPAL NEUROLOGIC DIAGNOSIS: Definite MS HISTORY OF ILLNESS: Date of Onset: 1989 BRIEF NARRATIVE DESCRIBING HISTORY: This 57 year old right handed woman was referred by Dr. Sin Raygoza for a spasticity consult. The patient was unaccompanied. Medical records from prior clinic visits were reviewed. Lindsay has a medical history notable for multiple sclerosis (dx 1989) s/p baclofen pump placement (~03/2022), breast cancer s/p left mastectomy, right femur fracture, osteoporosis, chronic sacral wound ulcers, and recurrent UTIs. Lindsay has a long history of multiple sclerosis, and her disease course has been characterized by progressive lower > upper extremity weakness. She has been wheelchair bound for the last 16 years. She was previously treated with Ocrevus but then developed breast cancer and was transitioned to Tysabri which she continues on today. Her breast cancer was treated with a mastectomy that was curative. Until July of 2020, she was able to perform most of her ADLS independently and also transfer independently out of her wheelchair. In Jul, 2020 she fell while transferring and fractured her right femur. She was evaluated by orthopedic surgery who determined that she was not a candidate for surgery given severe osteoporosis. Since the fracture, she has been unable to fully extend her right leg and experiences pain in her right knee when moving her right lower extremity. She has also been dependent on others for all her ADLs and can no longer transfer independently. She is able to take food out of the refrigerator and put it in the microwave and brush her teeth but cannot do any other ADLs on her own. She has a private home health aide who comes to her home for a few hours 6 days a week. She also lives with her son who also provides help with transfers, getting her out of bed, and ADLs. She has a suprapubic catheter in place and a colostomy. For the last few years, Lindsay has been experiencing painful spasms and stiffness in her bilateral lower extremities, right > left. She has also been dealing with a chronic sacral ulcer on her right buttocks for the last few years. These spasms are typically triggered when she puts pressure on the sacral ulcer. Her sacral ulcer is grade IV (penetrating to bone). She also experience constant bilateral lower extremity stiffness that waxes and wanes and intensity and seems to worsen when she develops a UTI or an infection in her sacral ulcer. She reports that sometimes the stiffness is so bad that she is unable to sit in her chair because the stiffness/spasms lift her body off the chair. Roughly one year ago, she saw a pain management physician who placed a baclofen pump to treat herlower extremity spasticity. She reports a robust improvement in her spasticity for the first few weeks after pump placement but then the benefit diminished. The physician managing her baclofen pump increased the dosage without benefit. She reports that at one point they flushed the pump catheter which led to a rapid improvement of her lower extremity spasticity for a few days but then once again the benefit diminished. Roughly two months ago, her physician informed her that her baclofen pump had migrated to the from of her abdomen and removed it to prevent complications. She has also recently been diagnosed with osteomyelitis secondary to her sacral ulcer and on the 2nd week of a 6 week course of IV antibiotics. In addition to her lower extremity weakness and spasticity, she also has upper extremity weakness and mild spasticity, right > left. She is right handed but has taught herself to use her left hand more frequently given the increased impairment in her right arm and hand. Lindsay says that her main hope with treatment of her spasticity is to regain the ability to transfer independently. Symptoms/Functional Limitations Related to Spasticity: Stiffness: present in the lower > upper extremities Spasms: in the lower extremities, sometimes painful Spasticity interferes with sleep: Painful spasms interfere with sleep Spasticity interferes with function: Interferes with positioning, ease of care and assisted transfers Pain related to the purpose of the visit: Yes LOCATION: Bilateral lower extremity spasms, right > left PAIN SCALE: 5 on a scale of 0-10 PAIN CHARACTER: stabbing and cramping DURATION: (How long have you had the pain?) multiple years FREQUENCY: (How often does the pain occur?) occurs constantly AGGRAVATING FACTORS: Usually triggered when she puts pressure on her right sacral decubitus ulcer and causes pain ALLEVIATING FACTORS: Rest MEDICATIONS: Baclofen 20 mg q4H (more content not included)... [facility] 04-23-2023 Instructions Chema Locke MD - 04/23/2023 1:54 PM EST I had the pleasure to meet you at the [facility] today. Here is a summary of the plan we discussed today to treat your spasticity: Continue on the same dose of baclofen 20 mg 6 times daily We will seek pre-authorization for Botox injections for your legs. Once you are pre-authorized, our team will contact you to schedule the injections. Feel free to send us a message via [employer] ,or to call the office at [phone] in the meantime if you have any questions. Chema Locke MD documented in this encounter [facility] 04-23-2023 History of Present illness Narrative REFERRAL SOURCE: Dr. Sin Raygoza FOLLOWED BY: Munir Soliz DO REASON FOR CONSULTATION: rehabilitation consult. PRINCIPAL NEUROLOGIC DIAGNOSIS: Definite MS HISTORY OF ILLNESS: Date of Onset: 1989 BRIEF NARRATIVE DESCRIBING HISTORY: This 57 year old right handed woman was referred by Dr. Sin Raygoza for a spasticity consult. The patient was unaccompanied. Medical records from prior clinic visits were reviewed. Lindsay has a medical history notable for multiple sclerosis (dx 1989) s/p baclofen pump placement (~03/2022), breast cancer s/p left mastectomy, right femur fracture, osteoporosis, chronic sacral wound ulcers, and recurrent UTIs. Lindsay has a long history of multiple sclerosis, and her disease course has been characterized by progressive lower > upper extremity weakness. She has been wheelchair bound for the last 16 years. She was previously treated with Ocrevus but then developed breast cancer and was transitioned to Tysabri which she continues on today. Her breast cancer was treated with a mastectomy that was curative. Until July of 2020, she was able to perform most of her ADLS independently and also transfer independently out of her wheelchair. In Jul, 2020 she fell while transferring and fractured her right femur. She was evaluated by orthopedic surgery who determined that she was not a candidate for surgery given severe osteoporosis. Since the fracture, she has been unable to fully extend her right leg and experiences pain in her right knee when moving her right lower extremity. She has also been dependent on others for all her ADLs and can no longer transfer independently. She is able to take food out of the refrigerator and put it in the microwave and brush her teeth but cannot do any other ADLs on her own. She has a private home health aide who comes to her home for a few hours 6 days a week. She also lives with her son who also provides help with transfers, getting her out of bed, and ADLs. She has a suprapubic catheter in place and a colostomy. For the last few years, Lindsay has been experiencing painful spasms and stiffness in her bilateral lower extremities, right > left. She has also been dealing with a chronic sacral ulcer on her right buttocks for the last few years. These spasms are typically triggered when she puts pressure on the sacral ulcer. Her sacral ulcer is grade IV (penetrating to bone). She also experience constant bilateral lower extremity stiffness that waxes and wanes and intensity and seems to worsen when she develops a UTI or an infection in her sacral ulcer. She reports that sometimes the stiffness is so bad that she is unable to sit in her chair because the stiffness/spasms lift her body off the chair. Roughly one year ago, she saw a pain management physician who placed a baclofen pump to treat her lower extremity spasticity. She reports a robust improvement in her spasticity for the first few weeks after pump placement but then the benefit diminished. The physician managing her baclofen pump increased the dosage without benefit. She reports that at one point they flushed the pump catheter which led to a rapid improvement of her lower extremity spasticity for a few days but then once again the benefit diminished. Roughly two months ago, her physician informed her that her baclofen pump had migrated to the from of her abdomen and removed it to prevent complications. She has also recently been diagnosed with osteomyelitis secondary to her sacral ulcer and on the 2nd week of a 6 week course of IV antibiotics. In addition to her lower extremity weakness and spasticity, she also has upper extremity weakness and mild spasticity, right > left. She is right handed but has taught herself to use her left hand more frequently given the increased impairment in her right arm and hand. Lindsay says that her main hope with treatment of her spasticity is to regain the ability to transfer independently. Symptoms/Functional Limitations Related to Spasticity: Stiffness: present in the lower > upper extremities Spasms: in the lower extremities, sometimes painful Spasticity interferes with sleep: Painful spasms interfere with sleep Spasticity interferes with function: Interferes with positioning, ease of care and assisted transfers Pain related to the purpose of the visit: Yes LOCATION: Bilateral lower extremity spasms, right > left PAIN SCALE: 5 on a scale of 0-10 PAIN CHARACTER: stabbing and cramping DURATION: (How long have you had the pain?) multiple years FREQUENCY: (How often does the pain occur?) occurs constantly AGGRAVATING FACTORS: Usually triggered when she puts pressure on her right sacral decubitus ulcer and causes pain ALLEVIATING FACTORS: Rest MEDICATIONS: Baclofen 20 mg q4H (6 times daily, takes a total of 120 mg daily) Patient Entered Data [employer] No flowsheet data found. Spasticity NRS 04/20/2023 Spasticity Level 5 Spasm Scale 04/20/2023 Spasm Frequency Spasms occurring more than 10 times per hour Spasm Severity Severe Global Impression of Change 04/20/2023 Rehab global impression of change Not applicable Treatments for Spasticity and Results of Treatments: Stretching/exercise: Daily stretching Oral medications: Baclofen 20 mg q4H (6 times daily, takes a total of 120 mg daily) Botulinum toxin injections: Never tried Intrathecal baclofen therapy: Trialed previously with initial robust benefit for spasticity in lower extremities that diminished with time. Pump removed ~02/2023 due to migration Other: None Evolution of disability: Gait disturbance since ~1999, wheelchair bound for the last 16 years Current functional status: Incapacity Status Scale Stair Climbin Unable to perform Ambulation: 4 Power wheelchair Toilet/Chair/Bed Transfer: 4 Requires assistance Bowel Function: 4 Colostomy placed Bladder Function: 4 Suprapubic catheter placed Bathin Needs assistance Dressin Needs assistance Groomin Needs assistance Feedin Can get food out of fridge and heat it up in microwave and feed herself but for anything else, requires help Vision: 0 No issues Speech and Hearin Scanning speech pattern, no hearing difficulties Medical Problems: 1 Osteoporosis, breast cancer s/p mastectomy in remission Mood and Thought Disturbance: 0 denies current issues Mentation: 2 memory loss Fatigability: 3 Moderate fatigue Sexual Function: Not asked Total score: 42 Skin: Chronic grade IV sacral ulcer in right buttocks, currently infected (on week 2 of 6 weeks antibiotic course) Nutritional status: appetite good, weight stable but reports persistent low serum protein levels, swallowing intact Driving issues: NA Does not drive Safety concerns regarding living situations and safety at home: No Risk of falls: Yes frequency: none Review of Diagnostic Studies: MRI BRAIN / CERVICAL / THORACIC SPINE: most recent 09/04/2016 Multiple intracranial white matter lesions compatible with multiple sclerosis. No new T2 lesions and no new enhancing lesions. No significant parenchymal volume loss. Other Significant Intracranial Findings: None. At least one cervical intramedullary lesions compatible with the clinical history of multiple sclerosis. Possible additional lesion in the thoracic spinal cord, though images are motion degraded. No enhancing intramedullary lesions. Mild upper spinal cord volume loss for age. Other Significant cervical and thoracic Spine Findings: No significant thoracic canal or foraminal stenosis. Mild bilateral foraminal narrowing at C5-6 due to disc osteophyte complex. PAST MEDICAL HISTORY Diagnosis Date Hemorrhage of gastrointestinal tract, unspecified Lobular breast cancer, left (HCC) 08/2017 Lobular carcinoma of left breast (HCC) 01/11/2018 Multiple sclerosis (FORM[facility]LY [facility]) 1989 PAST SURGICAL HISTORY Procedure Laterality Date COLONOSCOP W/ OR W/O [facility] SPEC 2002 Colonoscopy IUD INSERTION (TRANSITIONS MANAGER RN DEPT)_*FL 07/18/2008,07/28/2013 Mirena L'SCOPE REM ADNEX W/PART/TOT OOPH/SALP Bilateral 01/21/2018 l/s BSO for breast ca MASTECTOMY, SIMPLE, COMPLETE Left 10/2017 Mastectomy, left PAST SURGICAL HISTORY OF 4th degree repair REMOVAL OF TONSILS,<12 Y/O Tonsillectomy SIGMOIDOSCOPY FLEX DIAG 05/11/2007 Sigmoidoscopy VAG HYST,RMV TUBE/OVARY 01/21/2018 removal of IUD Social History Tobacco Use Smoking status: Former Types: Cigarettes Quit date: 03/16/1989 Years since quittin.1 Smokeless tobacco: Never Substance Use Topics Alcohol use: Yes Comment: socially Drug use: No FAMILY HISTORY Problem Relation Age of Onset Diabetes Mother other (MS) Mother Cancer Maternal Grandmother cervical Cancer Maternal Grandfather bone Coronary Artery Disease Maternal Grandfather Diabetes Maternal Grandfather Diabetes Paternal Grandmother Colon Cancer Maternal Aunt Diabetes Maternal Uncle Diabetes Paternal Aunt PHYSICAL EXAMINATION: Musculoskeletal: muscle atrophy in and upper and lower extremities. Cognitive/Behavioral: alert and oriented with normal language, memory, and praxis. Formal neuropsychological testing was not performed today. No signs of severe anxiety or depression during the interview and examination. Cranial Nerves: Eye movements were full without nystagmus. Facial sensation was normal. Muscles of mastication and facial expression moved normally. Hearing was intact. Gag reflex and palatal movements were normal. Sternocleidomastoid and trapezius power were normal. Tongue movements were normal. There was no dysarthria. Strength Right Left Shoulder abduction 4 4 Elbow flexion 4 4 Elbow extension 3+ 4 Wrist extension 3+ 4 Solids Control Technician strength (kg) 8 8 Hip flexion 1+ 2+ Knee flexion 1+ 2+ Knee extension 1+ 2+ Plantarflexion 1+ 3+ Dorsiflexion 1+ 4 Spasticity Right Left Shoulder 0 0 Elbow flexors 2 0 Elbow extensors 0 0 Wrist flexors 0 0 Wrist extensors 0 0 Finger flexors 2 0 Finger extensors 0 0 Hip adductors 3 3 Knee extensors 2 2 Knee flexors 3 3 Plantarflexors 3 2 Modified Bradley Scale 0 - No increase in tone 1 - Slight increase in tone (catch and release at end of ROM) 1+ - Slight increase in tone, manifested by a catch, followed by minimal resistance throughout remainder (less than half of ROM) 2 - Marked increase in tone through most of the ROM, but affected part(s) easily moved 3 - Considerable increase in tone; passive movement difficult 4 - Affected part(s) rigid in flexion or extension Spasms observed: RUE: no right upper extremity spasms LUE: no left upper extremity spasms RLE: right lower extremity spasms LLE: left lower extremity spasms Timed 25 foot walk: N/A Assistance required: wheelchair Ambulation Index Score: 9 - Restricted to wheelchair, dependent for transfers Cerebellar: There was no dysmetria on bxpcdu-mi-maow and hsaj-fz-tlzu testing. Fine movements were diminished in bilateral hands, right > left. 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 As a result of her spastic quadriparesis, Lindsay is wheelchair bound, dependent on other for transfer and assistance with her ADLs, and experienced stiffness and spasms in her bilateral lower extremities. She previously had a baclofen pump which provided her with some initial improvement in her spasticity but the benefit rapidly diminished. The baclofen pump was removed. Given her severe weakness and spasticity in her lower extremities and report of initial robust improvement with the baclofen pump, Lindsay would likely benefit from another trial of a baclofen pump. However, her current osteomyelitis precludes re-trialing the baclofen pump at this time due to the slim-operative increased risk of infection. Will instead trial botulin toxin injections to treat her spasticity. Will primarily target her lower extremities but will consider treatment of her right upper extremity to improve functionality. Will pair botulinum toxin treatment with physical therapy to attempt to improve the contractures in her lower extremities. Medication: Botox [id number] Dose (units every 90 days): Up to 400 units If initial pre-authorization; list treatments failed: PT/OT, Baclofen CPT Codes: Limbs: 64634, 20420, 47376 and 39780 EMG guidance: 97488 Limb(s) / area(s) injected: Bilateral upper and lower extremities. Educational materials provided: Botox patient medication guide, pamphlet on Botox for spasticity. Checklist for botulinum toxin or intrathecal baclofen therapy Severe spinal deformity: no History of trauma to the spine: no History of spinal surgery: no History of seizures: no Pacemaker: no Anticoagulation: no Bleeding disorder: no Ability to provide consent: yes Allergy to lidocaine: no Allergy to betadine: no Transportation problems: yes does not drive, lives in [place] Other: no PLAN: 1. Continue baclofen 20 mg six times daily (every 4 hours) 2. Will seek prior approval for botulinum toxin injections for treatment of spasticity 3. Will pair botulinum toxin therapy with physical therapy to attempt to improve the contractures in her lower extremities Jaxson Jernigan MD Neuroimmunology fellow PHYSICAL MEDICINE AND REHABILITATION STAFF NOTE I participated in the garcia elements of the history and examination, and agree with the above documented information. Assessment and plan were discussed and approved by myself. Ms. 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 She reports severe stiffness and spasms in the lower extremities, mild to moderate stiffness in the upper extremities. She has a stage IV infected sacral ulcer, which likely contributes to the severity of her spasticity. She benefited from intrathecal baclofen therapy until the hardware was removed due to malfunction. Spasticity causes discomfort and pain, causes worsening contractures, interferes with positioning, care/hygiene and transfers, and is not adequately controlled with the current regimen of oral baclofen. I agree that she is a good candidate for botulinum toxin therapy for the management of spasticity. I discussed medication dosage, usage, goals of therapy, and side effects of botulinum toxin therapy. I discussed specific risks, benefits, personnel, and alternatives related to botulinum toxin injections. The patient medication guide about Botox injections was provided, and concerns about generalized side effects after Botox injections were discussed during the visit. I provided additional written information on BT therapy to review at home. I explained that the total dose injected, specific muscles injected and dose injected in each muscle, and frequency of injections, may vary over time depending on response to treatment. The goals of spasticity management are to improve comfort, to improve positioning and ease of care and transfers, to facilitate stretching and rehabilitation, and to help prevent further worsening of contractures. I explained that BT therapy does not make the muscles stronger. Ms. Christensen expressed understanding of the above and requested to initiate botulinum toxin therapy. The plan is to start with injections to bilateral lower extremities with Botox (starting dose 300 units). The dose will be increased up to 400 units every 90 days at future visits, possibly adding injections to the upper extremities. I spent a total of 50 minutes on the date of the service which included preparing to see the patient, bltn-qe-pgcu patient care, completing clinical documentation, performing a medically appropriate examination, counseling and educating the patient/family/caregiver, and ordering medications, tests, or procedures. . Chema Locke MD Department of PM&R documented in this encounter [facility] 04-11-2023 Note . MICRO - Microbiology PROCEDURE: [...] Locations *1: This test was performed at: [address], [facility] , [facility] ([place]) 04-11-2023 Note . MICRO - Microbiology PROCEDURE: [...] Locations *1: This test was performed at: [address], [address] [place] [address] ([place]) 04-10-2023 Hospital Discharge instructions Patient Education 04/10/2023 [...] Follow these instructions at home: Medicines Take wtpt-cgv-fpuigez and prescription medicines only as told by [...] and water are not available, use hand party chief. Do not use any products that contain [...] 03/02/2006 Document Revised: 03/18/2018 Document Reviewed: 03/11/2018 [employer] Patient Education 2020 [employer] Follow Up Care 04/05/2023 14:21:21 With:[facility] will providing your IV medication and delivering this to your room. Call them with any questions at [phone] Address:Unknown When:1-2 days With:[facility] Address:Unknown When:1-2 days Comments:[facility] RN for IV infusion and wound care. They will call you before coming out to the home. Call them with any questions at [phone] With:MUNIR SOLIZ DO Address: [address] [place] [address]- When:1-2 days Comments:Please call the office to schedule a follow-up appointment With:[facility] - Patient had home medication brought in. Please send home with patient upon discharge. Address: When:1-2 days [facility] 04-10-2023 Note Discharge Instructions Thank you for allowing [place] to assist you with your healthcare needs. The following is important discharge information regarding your hospital visit. Your Care Team MUNIR SOLIZ DO Your Diagnosis MS (multiple sclerosis) Osteomyelitis What to do next Follow Up Appointments Follow Up with [facility] will providing your IV medication and delivering this to your room. Call them with any questions at [phone] When Within 1-2 days Follow Up with [facility] When Within 1-2 days Why: [facility] RN for IV infusion and wound care. They will call you before coming out to the home. Call them with any questions at [phone] Follow Up with MUNIR SOILZ DO When Within 1-2 days Why: Please call the office to schedule a follow-up appointment Where: [address] [place], [place] [address]- Follow Up with [facility] - Patient [...] Follow these instructions at home: Medicines Take adqh-ydm-schuhmc and prescription medicines only as told by [...] and water are not available, use hand party chief. Do not use any products that contain [...] 03/02/2006 Document Revised: 03/18/2018 Document Reviewed: 03/11/2018 [employer] Patient Education 2020 [employer] Additional Information VACCINATE! IT SAVES LIVES! Members of the community who have not yet received the COVID-19 vaccine and would like to receive it can visit one of [facility] vaccine clinics. There are many vaccine clinic locations within the [facility]. For locations and available times, please visit [email or web address].[place].gov/. It is important to note that some COVID mobile vaccine clinics are held outdoors and may be canceled in rainy or stormy conditions. To learn more about pediatric vaccinations (ages 5-11), we invite you to visit the [employer] webpage. [email or web address] To learn more about the COVID-19 vaccine, we invite you to visit the CDC website for a list of frequently asked questions.https://www.cdc.gov/cor onavirus/2019-ncov/vaccines/faq.h tml [facility] Patient Portal Access Instructions: Stay connected with your healthcare team and access your personal medical information anytime with the [facility] Patient Portal. Please follow the directions below to create your [facility] account: 1.Access the email account you provided upon registration to the hospital/physician office.2.Look for an invitation email from [facility].3.Open the email and access the invitation link: Accept Invitation to [facility].4.Fill in the required biggs to create your account. To access your account, visit [employer]Viveraehart. Click the blue button labeled Access Patient [...] you will allow to register on the [facility] Patient Portal for access to your information. You can also access the [facility] Patient Portal on the 5 Minutes Anywhere kyle. Simply click on Patient Portal and then log into your account. If you would like to receive a full copy of your medical records, please contact the [facility] Medical Records Department by calling [phone], Thursday through Thursday between 8 a.m. and [...] Call your local pharmacy or go to [email or web address] to find one close to you.3.Make use of household items: Use cat litter or old coffee grounds to dispose medications if other options are not available. Mix your drugs with these household products, seal them in an airtight container and throw it into the garbage. Call [facility]: [phone] to be sure your drugs can be [...] been reviewed and explained to me and I,LINDSAY CHRISTENSEN understand my current condition and have read and understand these discharge instructions. I have received a written copy of the plan/instructions. If I have questions, I am aware that I should contact my doctor. Patient/Mutual Funds Agent Signature: Date/Time: Relationship to Patient: ____ Witness Name/Signature: Date/Time: [facility] 04-10-2023 Discharge summary Date of Service [...] solution,Apply 1 kyle, Topical, BID, 0 Refill(s), Lean, 57.6 Ordered: Discharge,04/10/23 16:11:00 EST, Discharged to: [...] 1 cap(s), Oral, TID, Provide Lactobacillus tablets fbtn-vjd-vyqbmqw is okay, twice a day for 2 [...] Topical two (2) times a day. Unchanged [id number] Milligram by mouth every 4 hours. dalfampridine [...] room. Call them with any questions at [phone] When Within 1-2 days Follow Up with [facility] When Within 1-2 days Why: [facility] RN for IV infusion and wound care. They will call you before coming out to the home. Call them with any questions at [phone] Follow Up with MUNIR SOLIZ DO When Within 1-2 days Why: Please call the office to schedule a follow-up appointment Where: [address] [place] [address]- Follow Up with [facility] - Patient [...] by MARTHA PACE on 04/10/2023 04:14 PM [facility] 04-10-2023 Procedure note VASCULAR ACCESS TEAMPOST [...] LENGTH:38 cm EXTERNAL LENGTH:0cm ARM CIRC:_26cm LOT #:[id number] COMPLICATIONS: None INSERTED BY: Janelle Remy RN, assisted by Raheem Valera RN PLAN:_ PICC placement confirmed in lower SVC per ECG technology with Maximum P wave and absence of negative deflection/ Flushes easily with good blood return. Okay to use PICC now. Primary RN notified. Digitally Signed by CARL Remy on 04/10/2023 01:05 PM [facility] 04-10-2023 Infectious disease Progress note Date [...] Katty Turcios RN on 04/10/2023 11:13 AM [facility] 04-10-2023 Note . MICRO - Microbiology [...] Locations *1: This test was performed at: [facility], [address] [place] [address], [facility] , [facility] ([place]) 04-10-2023 Infectious disease Progress note Date of [...] Katty Turcios RN on 04/10/2023 11:13 AM [facility] 04-10-2023 Note . MICRO - Microbiology PROCEDURE: Urine Culture [*1] SOURCE: Urine, Straight BODY SITE: Catherized COLLECTED DATE/TIME: 04/05/2023 23:51 EST RECEIVED DATE/TIME: 04/06/2023 20:55 EST START DATE/TIME: 04/06/2023 20:55 EST FREE TEXT SOURCE: FINAL REPORTS Final Report [] Verified Date/Time/Personnel: 04/10/2023 08:45 EST 1,000 cfu/ml Staphylococcus aureus 1,000 cfu/ml Kayley albicans Contact Microbiology within 72 hours if further identification is indicated ([id number]). [place] counts from a single urine are equivocal in determining infection vs. colonization of yeast. Multiple cultures at least 24 hours apart may be helpful in differentiating colonization from infection. PRELIMINARY REPORTS Preliminary Report [] Verified Date/Time/Personnel: 04/09/2023 08:45 EST 1,000 cfu/ml Staphylococcus aureus COLTON to follow 1,000 cfu/ml Kayley albicans Contact Microbiology within 72 hours if further identification is indicated ([id number]). [place] counts from a single urine are equivocal [...] Locations *1: This test was performed at: [facility], [address] [place] [address], [id number] , [facility] ([place]) 04-09-2023 Infectious disease Progress note Date of [...] and multiple decubitus ulcers who presented to [place] ER due to concern of fevers and [...] CARDENAS BA, MD on 04/09/2023 04:16 PM [facility] 04-09-2023 Note Date of Service 04.09.23 [...] by MARTHA PACE on 04/09/2023 04:00 PM [facility] 04-09-2023 Note . MICRO - Microbiology [...] Locations *1: This test was performed at: [facility], [address] [place] [address], [id number] , [facility] ([place]) 04-09-2023 Procedure note Date of Service April [...] MAXIMINO JOY MD on 04/09/2023 10:57 AM [facility] 04-08-2023 Note Date of Service 04.08.23 [...] days. Patient reports her urine culture from [facility] showed Klebsiella so she is concerned [...] 08 16:00) L 89(APR 08 11:00) 109(APR 07:15) DBP 78(APR 08 16:00) L 53(APR 08 [...] by MARTHA PACE on 04/08/2023 05:26 PM [facility] 04-08-2023 Infectious disease Progress note Hip wound cultures is revealing Pseudomonas species, will start the patient on meropenem pending sensitivity Digitally Signed by HECTOR CARDENAS BA, MD on 04/08/2023 04:30 PM [facility] 04-08-2023 Progress note Date of Service [...] Dakin's solution packing. Post-Procedure Exam Appeared much kiln cleaner Complications None Estimated Blood Loss 35 cc Total Time 25 minutes Assessment/Plan MS (multiple sclerosis) Osteomyelitis Follow Up/Recommendation Continue with the Dakin's solution dressings for the time being at her discharge we can change her to Aquacel Ag. Digitally Signed by MAXIMINO JOY MD on 04/08/2023 11:54 AM [facility] 04-08-2023 Note ORIGINAL EXAMINATION: ONE XRAY [...] Sign Date: 04/08/2023 12:16:29 AM Ordering Provider: [facility] 04-07-2023 Note Date of Service 04.07.23 [...] by MARTHA PACE on 04/07/2023 04:46 PM [facility] 04-07-2023 Note Date of Service 04.07.23 [...] by MARTHA PACE on 04/07/2023 04:46 PM [facility] 04-06-2023 Infectious disease Consult note Date of Service 04/06/23 Reason for Consultation Infected decubitus ulcer Referring Physician Dr Young History of Present Illness This is a 57-year-old with a past medical history of multiple sclerosis wheelchair dependent, suprapubic catheter for neurogenic bladder, chronic deep venous ulcer presented to [place] ER due to concern for fevers. There [...] does have issues with her MS. Per Ann [facility] there was concern for soft blood [...] and multiple decubitus ulcers who presented to [facility] due to concern of fevers and [...] tablet, 1 gram(s)= 1 tab(s), Oral, BID [place] 325- 5 mg oral tablet, 1 tab(s), [...] data available. Digitally Signed by Mary Rosario Licensed Scribe on 04/06/2023 02:08 PM Digitally Signed by HECTOR CARDENAS BA, MD on 04/06/2023 04:00 PM [facility] 04-06-2023 Neurology Consult note Date of [...] on Tysabri at baseline, follows up with [facility]. Per patient she was started on Ocrevus in the past by [facility] and then later developed breast cancer, then [...] on Tysabri at baseline, follows up with [facility]. Per patient she was started on Ocrevus in the past by [facility] and then later developed breast cancer, then [...] Plan: -Per patient she follows up with [facility], gets her neuroimaging done there. -Discussed about checking MRI brain/spine with patient but at present she would want to hold off. Agree with the same as patient's presentation is more concerning for infection and she is feeling better with antibiotics, also follows up with [facility] for her neuroimaging. -Labs reviewed check [...] answered This note has been generated using [employer] dictation software. It may contain incorrect words, [...] tablet, 1 gram(s)= 1 tab(s), Oral, BID [place] 325- 5 mg oral tablet, 1 tab(s), [...] ANUPAMA NEWTON MD on 04/06/2023 12:02 PM [facility] 04-06-2023 Note Reason for Consultation Admission [...] saline Hip Left - Pressure Area Description: Galliano, White, Yellow, Drainage/Exudate, Edges , Granulation, Tunneling [...] saline Hip Right - Pressure Area Description: Galliano, Epithelialization with crusted weeping Hip Right - [...] Signed by CARL García June04/06/2023 11:32 AM [facility] 04-06-2023 Note I was in completing a skin assessment and noted patient has an established LLQ colostomy. Patient has low output and uses a 2 piece 2 3/4 in. non drainable ostomy pouch. System intact with a pink moist stoma spout. Patient has own personal supplies for appliance changes. No needs at this time. Digitally Signed by CARL García June04/06/2023 11:22 AM [facility] 04-06-2023 Consult note Date of Service [...] present it has been followed at the [facility] for the past 1 year but because they found some more infection and pus in this area she was transferred over to [facility] from [facility] for further care and treatment Review of [...] Aquacel Ag at the wound clinic in [place]. Found out there was more drainage she was transferred over to [facility] for further care and treatment Physical [...] her discharge patient can be followed at [place] [facility] by me at that time [...] tablet, 1 gram(s)= 1 tab(s), Oral, BID [place] 325- 5 mg oral tablet, 1 tab(s), [...] MAXIMINO JOY MD on 04/06/2023 11:00 AM [facility] 04-05-2023 Note ORIGINAL EXAMINATION: CT OF [...] Sign Date: 04/06/2023 12:47:04 AM Ordering Provider: HERBIE [facility] 04-05-2023 History and physical note Date of Service 04/05/2023 decubitus Chief Complaint Infected decubitus ulcer History of Present Illness 57-year-old with a past medical history of multiple sclerosis wheelchair dependent, suprapubic catheter for neurogenic bladder, chronic deep venous ulcer presented to [facility] due to concern for fevers. There [...] does have issues with her MS. Per [facility] there was concern for soft blood [...] on wound cultures and blood culture from [facility]. Neurology consultation for MS. ESR and [...] HERBIE WYNNE MD on 04/05/2023 07:47 PM [facility] Assessment 1. Infected decubitus ulcer 2. Multiple sclerosis wheelchair dependent 3. Suprapubic Neurogenic bladder 4. Completed 10 days of cefepime for recent Pseudomonas UTI Plan 1. At this time we will go ahead and continue vancomycin and Zosyn. To go ahead and consult infectious disease and plastic surgery wound care. Blood cultures. Follow-up on wound cultures and blood culture from [facility]. Neurology consultation for MS. ESR and CRP. CT abdomen/pelvis. This document was transcribed using a voice recognition software and may contain typographical errors. [facility] Evaluation + Plan note No data available for this section [facility] Evaluation note* Diagnosis Spastic quadriparesis (HCC)- Primary Quadriplegia, unspecified Multiple sclerosis (HCC) Multiple sclerosis documented in this encounter [facility] Discharge instructions No data available for this section [facility] Progress note No data available for this section [facility] Summary Purpose Family History No Family History Records Found Advance Directives No Advanced Directives Records FoundNo Advanced Directives Records Found Additional Source Comments Care Team (unrecognized sect ion and content) Care Team (unrecognized sect ion and content) Care Team Personnel Name: MUNIR SOLIZ DO Member Role: Primary Care Physician Address: Address: [facility] [place] [address] [place] [address]- Care Team Related Persons Name: JAMES OJEDA Care Team Personnel Name: MUNIR SOLIZ DO Member Role: Primary Care Physician Address: Address: [facility] [place] [id number]- Care Team Related Persons Name: JAMES OJEDA INFORMATION SOURCE (unrecogn ized section and content) DATE CREATED AUTHOR AUTHOR'S ORGANIZ ATION 05/04/2023 [facility] Source Comments (unrecognize d section and content) In the event this informatio n is protected by the Federal Confidentiality of Alcohol and Drug Abuse Patient Records regulations: The Federal rules restrict any use of the information to criminally investigate or prosecute any alcohol or drug abuse patient.[facility] Reason for Visit (unrecogniz ed section and content) Specialty Diagnoses / Procedures Referred By Prateek vu Referred To [facility] Diagnoses Spasticity Procedures REFERRAL TO [facility] [address] [place] [address] Referral ID Status Reason Start Date Expiration Date Visits Requested Visits Authorized [id number] Outside PCP Financial Clearance Required - [employer] Payor 04/23/2023 07/22/2023 1 1 FOR RECORDS PERTAINING TO PATIENTS WHO ARE [...] BE BASED ON THE PRIMARY CLINICAL RECORDS. [employer] [facility]. provides no warranty or guarantee of the accuracy or completeness of information in this document.
== END | disposition home or self-care (01) ==
LOC: LABSPEC 13:01
PROVIDERS: PCP Family Medicine
DX: M86.9 Osteomyelitis, unspecified (principal)
CPT/HCPCS: 80053; 85025; 85652

== ENCOUNTER → 2023-05-11 | Outpatient (CLI) | payer MEDICARE, SELFPAY ==
[2018-02-01 11:47] VITALS: BMI 15.0
[2023-05-11 13:47] LABS: Erythrocyte Sedimentation Rate 32 mm/hr (0-30); Hematocrit 39.6 % (37-47); Hemoglobin 12.7 g/dL (12.0-15.0); Mean Corp Hgb Conc 32.1 g/dL (32-36); Mean Corpuscular Hgb 30.5 pg (27.0-32.0); Mean Platelet Vol. 11.3 fl (6.2-12.0); Platelet Count 304 K/mm3 (150-450); RBC Distribution Width CV 15.1 % (11.6-14.6); RBC Distribution Width SD 52.7 fl (35.1-43.9); Red Blood Count 4.17 M/mm3 (4.2-5.4); White Blood Count 7.6 K/mm3 (4.4-11.0)
[2023-05-11 13:54] LABS: ALB/GLOB Ratio 0.9 RATIO (0.9-2.4); AST(SGOT) 19 U/L (15-37); Alanine Aminotransfer ALT/SGPT 31 U/L (13-56); Albumin, Serum 3.4 g/dL (3.2-5.0); Alkaline Phosphatase 112 U/L (45-117); Anion Gap 3 (5-15); BUN 19 mg/dL (7-18); BUN/Creat Ratio 48.2 RATIO (10-20); Calcium,Total 9.6 mg/dL (8.5-10.1); Chloride 104 mmol/L (98-107); Creatinine, Serum 0.39 mg/dL (0.55-1.02); EST Glomerular Filtration Rate 178 mL/min (>60); Est Glom Filt Rate - Afr Amer 215 mL/min (>60); Globulin 3.7 g/dL (2.2-4.2); Glucose 78 mg/dL (74-106); Potassium 4.4 mmol/L (3.5-5.1); Protein, Total 7.1 g/dL (6.4-8.2); Sodium Level 139 mmol/L (136-145)
== END | disposition home or self-care (01) ==
LOC: LABSPEC 13:10
PROVIDERS: PCP Family Medicine
DX: M86.9 Osteomyelitis, unspecified (principal)
CPT/HCPCS: 80053; 85027; 85652

== ENCOUNTER → 2023-05-18 | Outpatient (CLI) | payer MEDICARE, SELFPAY ==
[2018-02-01 11:47] VITALS: BMI 15.0
--- OUTSIDE RECORDS SUMMARY | 2023-05-18 12:11 | XMS RPT_ITS | CCD ---
Author Name Unknown Address [address] [place] [address] Organization [facility] Care Team Providers Care Crusher Setter Name Role Phone STEVEN Bartlett, Myriam Stevenson Unavailable [phone] Preston Rojas Unavailable Now Nurse Unavailable Unavailable Butch De La Torre Unavailable Jessika Sanon LPN Unavailable Cogar Jessika CHAVARRIA N Unavailable PHYSICIAN, NOT RECORDED Primary Care Physician U navailable LIYA REID, DR AMARAL A Primary Care Physician Genna Beasley Unavailable Unavailable Munir Soliz DO A Primary Care Provider CHEMA LOCKE Attending Unavailable SELF Referring Unavailable MUNIR SOLIZ Primary Care Unavailable MAXIMINO JOY MD Attending Unavailable LIYA REID, DR AMARAL A Primary Care Unavailab MAXIMINO Cleaning MD Attending Unavailable LIYA REID, DR AMARAL A Primary Care Unavailab le LIYA REID, DR MUNIR Mccabe Primary Care Unavailab chance POE MD, MURRYA Attending Unavailable SHERRELL MARRERO, DR HERBIE Zaragoza Admitting Anselmo CARDENAS MD, DR HECTOR CUMMINS Consulting Unavaila yariel GOLDSTEIN MD, KIA Consulting Unavailable MAXIMINO JOY MD Consulting Unavailable MAXIMINO JOY MD Attending Unavailable LIYA REID, DR AMARAL A Primary Care Unavailab le Allergies Allergy Classification Reported Allergen(s) Allergy Type Date of Onset Reaction(s) Facility (7 sources) ciprofloxacin drug allergy 7 [facility] Work Phone: (3 sources) Amoxicillin / Clavulanate; Translations: [amoxicillin-clavulan ate] Drug Allergy diarrhea [facility] (2 sources) Ciprofloxacin; Translations: [CIPROFLOXACIN] Drug Allergy 3 Intolerance [facility] (2 sources) Sulfamethoxazole / Trimethoprim; Translations: [SULFAMETHOXAZOLE-TRI METHOPRIM] Drug Allergy 8 GI Upset [facility] Medications Current Medications Medication Drug Class(es) Dates Sig (Normalized) Sig (Original) acetaminophen 325 mg oral capsule (3 sources) Start: 04-10-2023 Tylenol 325 mg oral capsule Dose : 650 mg =, Oral, q4h, PRN Pain, scale 1-3, 0 Refill(s) Start Date: 04/10/23 Status: Ordered baclofen 20 mg oral tablet (16 sources) gamma-Aminobutyr ic Acid-ergic Agonist Start: 04-05-2023 [...] temperature 98.24 [degF] DR HERBIE WYNNE MD [facility] 04-10-2023 16:05-0500 Diastolic Blood Pressure Non-Invasive 74 mm[Hg] DR HERBIE WYNNE MD [facility] 04-10-2023 16:05-0500 Heart rate 76 /min DR HERBIE WYNNE MD [facility] 04-10-2023 16:05-0500 Reason For Taking VItal Signs DR HERBIE WYNNE MD [facility] 04-10-2023 16:05-0500 Respiratory rate 18 /min DR HERBIE WYNNE MD [facility] 04-10-2023 16:05-0500 Systolic Blood Pressure Non-Invasive 120 mm[Hg] DR HERBIE WYNNE MD [address] [place] [address] 04-10-2023 15:17-0500 Reason For Taking VItal Signs DR HEBRIE WYNNE MD [address] [place] [address] 04-10-2023 13:23-0500 Reason For Taking VItal Signs DR HERBIE WYNNE MD [address] [place] [address] 04-10-2023 13:23-0500 Respiratory rate 16 /min DR HERBIE WYNNE MD [address] [place] [address] 04-10-2023 10:30-0500 Blood Pressure Cuff Size DR HERBIE WYNNE MD [address] [place] [address] 04-10-2023 10:30-[address] HERBIE WYNNE MD [address] [place] [address] 04-10-2023 10:30-[address] HERBIE Chong MD [address] [place] [address] 04-10-2023 10:30-0500 Body temperature 97.16 [degF] DR HERBIE WYNNE MD [address] [place] [address] 04-10-2023 10:30-0500 Diastolic Blood Pressure Non-Invasive 64 mm[Hg] DR HERBIE WYNNE MD [address] [place] [address] 04-10-2023 10:30-0500 Heart rate 68 /min DR HERBIE WYNNE MD [address] [place] [address] 04-10-2023 10:30-0500 Respiratory rate 16 /min DR HERBIE WYNNE MD [address] [place] [address] 04-10-2023 10:30-0500 Systolic Blood Pressure Non-Invasive 96 mm[Hg] DR HERBIE WYNNE MD [facility] 04-10-2023 09:43-0500 Blood Pressure Cuff Size DR HERBIE WYNNE MD [address] [place] [address] 04-10-2023 09:43-[address] HERBIE WYNNE MD [address] [place] [address] 04-10-2023 09:43-[address] HERBIE Chong MD [address] [place] [address] 04-10-2023 09:43-0500 Diastolic Blood Pressure Non-Invasive 70 mm[Hg] DR HERBIE WYNNE MD [address] [place] [address] 04-10-2023 09:43-0500 Systolic Blood Pressure Non-Invasive 108 mm[Hg] DR HERBIE WYNNE MD [address] [place] [address] 04-10-2023 07:57-0500 Blood Pressure Cuff Size DR HERBIE WYNNE MD [address] [place] [address] 04-10-2023 07:57-[address] HERBIE WYNNE MD [address] [place] [address] 04-10-2023 07:57-[address] HERBIE Chong MD [address] [place] [address] 04-10-2023 07:57-0500 Body temperature 96.8 [degF] DR HERBIE WYNNE MD [address] [place] [address] 04-10-2023 07:57-0500 Heart rate 70 /min DR HERBIE WYNNE MD [address] [place] [address] 04-10-2023 03:51-0500 Body temperature 98.24 [degF] DR HERBIE WYNNE MD [address] [place] [address] 04-09-2023 23:52-0500 Body temperature 97.7 [degF] DR HERBIE WYNNE MD [facility] 04-09-2023 23:52-0500 Mean blood pressure 73 mm[Hg] DR HERBIE WYNNE MD [address] [place] [address] 04-09-2023 14:50-0500 Mean blood pressure 72 mm[Hg] DR HERBIE WYNNE MD [address] [place] [address] 04-08-2023 18:23-0500 Body height [address] HERBIE WYNNE MD [address] [place] [address] 04-08-2023 18:23-0500 Body weight 57.[address] HERBIE WYNNE MD [address] 04-08-2023 18:23-0500 Body weight 19.93 kg/m2 DR HERBIE WYNNE MD [address] [place] [address] 04-08-2023 16:00-0500 Heart rate 68 /min DR HERBIE WYNNE MD [address] [place] [address] 04-08-2023 02:30-0500 Heart rate 59 /min DR HERBIE WYNNE MD [address] [place] [address] 04-07-2023 10:56-0500 Body temperature 97.88 [degF] DR HERBIE WYNNE MD [address] [place] [address] 04-06-2023 10:18-0500 Body temperature 98.06 [degF] DR HERBIE WYNNE MD [address] [place] [address] 04-06-2023 08:07-0500 Body height [address] HERBIE WYNNE MD [address] [place] [address] 04-06-2023 08:07-0500 Body weight 57.[address] HERBIE WYNNE MD [address] [place] [address] 04-06-2023 08:07-0500 Body weight 19.93 kg/m2 DR HERBIE WYNNE MD [facility] 04-06-2023 03:20-0500 Body temperature 101.48 [degF] DR HERBIE WYNNE MD [facility] 04-05-2023 23:39-0500 Body temperature 102.38 [degF] DR HERBIE WYNNE MD [facility] 04-05-2023 22:33-0500 Mean blood pressure 65 mm[Hg] DR HERBIE WYNNE MD [facility] 04-05-2023 19:01-0500 Heart rate 81 /min DR HERBIE WYNNE MD [facility] 12-22-2016 16:32-0400 BMI (Body Mass Index) 18.79 kg/m2 Butch CHENG [facility] Now [facility] Work Phone: 12-22-2016 16:32-0400 Body Temperature 98.7 [degF] Butch CHENG [facility] Work Phone: 12-22-2016 16:32-0400 BP Diastolic 62 mm[Hg] Butch CHENG [facility] Work Phone: 12-22-2016 16:32-0400 BP Systolic 104 mm[Hg] Bucth CHENG [facility] Work Phone: 12-22-2016 16:32-0400 Height 170.18 cm Butch CHENG [facility] Work Phone: 12-22-2016 16:32-0400 Pulse (Heart Rate) 71 /min Butch CHENG [facility] Work Phone: 12-22-2016 16:32-0400 Respiratory Rate 13 /min Butch CHENG [facility] Work Phone: 12-22-2016 16:32-0400 Weight 54.43 kg Butch CHENG [facility] Work Phone: 09-25-2016 12:25-0400 BMI (Body Mass Index) 18.79 kg/m2 Jessika Sanon LPN [facility] Work Phone: 09-25-2016 12:25-0400 Body Temperature 98.4 [degF] Jessika Sanon LPN [facility] Work Phone: 09-25-2016 12:25-0400 BP Diastolic 84 mm[Hg] Jessika Sanon LPN [facility] Work Phone: 09-25-2016 12:25-0400 BP Systolic 126 mm[Hg] Jessika Sanon LPN [facility] Work Phone: 09-25-2016 12:25-0400 Height 170.18 cm Jessika Sanon LPN [facility] Work Phone: 09-25-2016 12:25-0400 Pulse (Heart Rate) 74 /min Jessika Sanon LPN [facility] Work Phone: 09-25-2016 12:25-0400 Respiratory Rate 14 /min Jessika Sanon LPN [facility] Work Phone: 09-25-2016 12:25-0400 Weight 54.43 kg Jessika Sanon LPN [facility] Work Phone: Encounters Encounter Date Encounter Type Care Provider Facility Start: 05-12-2023 End: 05-13-2023 ambulatory MAXIMINO JOY MD Facility:A Start: 05-12-2023 End: 05-12-2023 Wound Care Center MAXIMINO JOY MD [facility] Start: 04-29-2023 End: 04-30-2023 ambulatory MAXIMINO JOY MD Facility:A Start: 04-29-2023 End: 04-29-2023 Wound Care Center MAXIMINO JOY MD [facility] Start: 04-23-2023 End: 04-23-2023 ambulatory [facility] Facility:[facility] Start: 04-23-2023 End: 04-23-2023 Patient encounter procedure Chema Locke MD Work Phone: [facility] Procedures Date Procedure Procedure Detail Performing Clinician [...] Start: 09-25-2016 End: 09-25-2016 Urinalysis Jessika Sanon [employer] Start: 09-25-2016 End: 09-25-2016 Urinalysis nonauto w/o [...] Start: 11-06-2025 Diabetes Screening Diabetes Screenin g [facility] Start: 04-19-2024 Screening for malign ant neoplasm of cervix [facility] Start: 03-16-2023 Depression Assessment Depression Ass essment [facility] Start: 11-14-2022 Influenza vaccination Influenza Vacc ine (#1) [facility] Start: 12-11-2017 Screening for malign ant neoplasm of breast Mammogram Screening [facility] Start: 12-22-2016 End: 12-22-2016 Appointment Appointment [facility] Work Phone: Start: 12-22-2016 End: 12-22-2016 Urinalysis complete panel - Urine *UAC- Urinalysis, Complete w/ Micro [facility] Work Phone: Start: 12-22-2016 End: 12-22-2016 Urinalysis complete panel - Urine *UAC- Urinalysis, Complete w/ Micro [facility] Work Phone: Start: 09-25-2016 End: 09-25-2016 Appointment Appointment [facility] Work Phone: Start: 09-02-2015 Shingrix Vaccine (1 of 2) Shingrix Vaccine (1 of 2) [facility] Start: 06-28-2013 Lipid panel Lipid Screening [facility] Start: 05-11-2012 Screening for malign ant neoplasm of colon [facility] Start: 2010 Screening for malign ant neoplasm of colon [facility] Start: 09-02-2009 Urine microalbumin profile DTaP,Tdap,Td Vaccine (2 - Tdap) [facility] Start: 03-03-1966 Covid-19 Vaccine (#1) Covid-19 Vacci ne (#1) [facility] Start: 1965 Hepatitis B Vaccine (1 of 3 - 3-dose series) Hepatitis B Vaccine (1 of 3 - 3-dose series) [facility] Patient Education DYSURIA [facility] in Work Phone: [facility] Payers Date Payer Category Payer Medicare [id number] 2022 Medicare [employer] ADV[employer] [place] MEDICARE [id number] 2022-Present [phone] [address] [place] [address] HMO [id number] 2022 Medicare [id number] 1965 Unknown [id number] 1965 Unknown [id number] 1965 Unknown [id number] 1965 Unknown [id number] Social History Date Type Detail Facility Tobacco smoking status Former smoker [facility] Sex Assigned At Female [facility] Tobacco smoking status No Smokin g Status Entered [facility] Start: 10-30-2010 [facility] Work Phone: End: 03-16-1989 History of tobacco use Current smoker [facility] Work Phone: End: 03-16-1989 History of tobacco use Cigarette Smoker [facility] Work Phone: Start: 10-30-2010 Tobacco use and exposure Smokeless tobacco non-user [facility] Work Phone: Start: 05-03-2023 Alcohol intake Current drinke r of alcohol (finding) [facility] Start: 04-23-2023 End: 05-03-2023 History of Social function [facility] Start: 04-23-2023 End: 05-03-2023 Tobacco use panel [facility] National Score (1-100), lower number is lower risk 69 [facility] Start: 1965 Sex Assigned At Not on file [facility] Functional Status Date Assessment Result Facility 04-10-2023 Functional Status Room check performed [facility] 04-10-2023 Functional Status [facility] 04-10-2023 Functional Status Done [facility] 04-10-2023 Functional Status 65 [facility] 04-10-2023 Functional Status Skin Care Prev entative Intervention(s) heel(s)s elevated [facility] 04-09-2023 Functional Status [facility] 04-09-2023 Functional Status One assist [facility] 04-09-2023 Functional Status [facility] 04-09-2023 Functional Status [facility] 04-08-2023 Functional Status [facility] 04-07-2023 Functional Status Dinner Percent 25 [facility] 04-06-2023 Functional Status [facility] 04-06-2023 Functional Status [facility] Mental Status Date Assessment Result Facility 04-10-2023 Mental Status Oriented x 4 [facility] 04-10-2023 [facility]-09[facility] 04-09-[facility]23 Mental Status [facility] Clinical Notes 04-05-2023 to 04-23-2023 Patient InstructionsBeChema boothe MD - 04/23/2023 12:30 PM EST Note Date & Type Note Facility 04-23-2023 Note HNO ID: [id number] Author: CHEMA LOCKE MD Service: ? Author [...] 20 mg q4H (more content not included)... [facility] 04-23-2023 Instructions Chema Locke MD - 04/23/2023 1:54 PM EST I had the pleasure to meet you at the [facility] today. Here is a summary of the plan we discussed today to treat your spasticity: Continue on the same dose of baclofen 20 mg 6 times daily We will seek pre-authorization for Botox injections for your legs. Once you are pre-authorized, our team will contact you to schedule the injections. Feel free to send us a message via [employer] ,or to call the office at [phone] in the meantime if you have any questions. Chema Locke MD documented in this encounter [facility] 04-23-2023 History of Present illness Narrative REFERRAL [...] of 120 mg daily) Patient Entered Data [facility] No flowsheet data found. 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 Fine movements were diminished in bilateral hands, right > left. 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 Continue baclofen 20 [...] which included preparing to see the patient, bjay-nz-qfpf patient care, completing clinical documentation, performing a medically appropriate examination, counseling and educating the patient/family/caregiver, and ordering medications, tests, or procedures. . Chema Locke MD Department of PM&R documented in this encounter [facility] 04-11-2023 Note . MICRO - Microbiology PROCEDURE: [...] Locations *1: This test was performed at: [address], [facility] , [facility] ([place]) 04-11-2023 Note . MICRO - Microbiology PROCEDURE: [...] Locations *1: This test was performed at: [address], [place], [address]- , [facility] ([place]) 04-10-2023 Hospital Discharge instructions Patient Education 04/10/2023 [...] Follow these instructions at home: Medicines Take zudl-qnv-ctxfkbv and prescription medicines only as told by [...] and water are not available, use hand improvement rn. Do not use any products that contain [...] 03/02/2006 Document Revised: 03/18/2018 Document Reviewed: 03/11/2018 [place] EXTENDED STAYS Patient Education 2020 [employer]. Follow Up Care 04/05/2023 14:21:21 With:[facility] will providing your IV medication and delivering this to your room. Call them with any questions at [phone] Address:Unknown When:1-2 days With:[facility] Address:Unknown When:1-2 days Comments:[facility] RN for IV infusion and wound care. They will call you before coming out to the home. Call them with any questions at [phone] With:MUNIR SOLIZ DO Address: [address] [place] [address]- When:1-2 days Comments:Please call the office to schedule a follow-up appointment With:[facility] - Patient had home medication brought in. Please send home with patient upon discharge. Address: When:1-2 days [facility] 04-10-2023 Note Discharge Instructions Thank you for allowing [facility] to assist you with your healthcare needs. The following is important discharge information regarding your hospital visit. Your Care Team MUNIR SOLIZ DO Your Diagnosis MS (multiple sclerosis) Osteomyelitis What to do next Follow Up Appointments Follow Up with [facility] will providing your IV medication and delivering this to your room. Call them with any questions at [phone] When Within 1-2 days Follow Up with [facility] When Within 1-2 days Why: [facility] RN for IV infusion and wound care. They will call you before coming out to the home. Call them with any questions at [phone] Follow Up with MUNIR SOLIZ DO When Within 1-2 days Why: Please call the office to schedule a follow-up appointment Where: [address] [place] [address]- Follow Up with [facility] - Patient [...] Follow these instructions at home: Medicines Take vusg-tnq-mqwxsdm and prescription medicines only as told by [...] and water are not available, use hand improvement rn. Do not use any products that contain [...] 03/02/2006 Document Revised: 03/18/2018 Document Reviewed: 03/11/2018 [place] EXTENDED STA[place] Patient Education 2020 [employer]. Additional Information VACCINATE! IT SAVES LIVES! Members of the community who have not yet received the COVID-19 vaccine and would like to receive it can visit one of [facility] vaccine clinics. There are many vaccine clinic locations within the [facility]. For locations and available times, please visit https://gettheshot.coronavirus.[place].gov/. It is important to note that some COVID mobile vaccine clinics are held outdoors and may be canceled in rainy or stormy conditions. To learn more about pediatric vaccinations (ages 5-11), we invite you to visit the [facility] webpage. https://www.FestEv[employer].org/pa [email or web address]-Pgvgn-Sbqcbroyoan-Freque ktbi-Fnnvs-Lqcieldqo.html To learn more about the COVID-19 vaccine, we invite you to visit the CDC website for a list of frequently asked questions.https://www.cdc.gov/cor onavirus/2019-ncov/vaccines/faq.h tml [employer] Patient Portal Access Instructions: Stay connected with your healthcare team and access your personal medical information anytime with the [employer] Patient Portal. Please follow the directions below to create your [employer] account: 1.Access the email account you provided upon registration to the hospital/physician office.2.Look for an invitation email from [facility].3.Open the email and access the invitation link: Accept Invitation to [employer].4.Fill in the required biggs to create your account. To access your account, visit [employer] [employer]. Click the blue button labeled Access Patient [...] you will allow to register on the [facility] Patient Portal for access to your information. You can also access the [facility] Patient Portal on the [facility] [employer] kyle. Simply click on Patient Portal and then log into your account. If you would like to receive a full copy of your medical records, please contact the [facility] Medical Records Department by calling [phone], Thursday through Thursday between 8 a.m. and [...] Call your local pharmacy or go to [email or web address] to find one close to you.3.Make use of household items: Use cat litter or old coffee grounds to dispose medications if other options are not available. Mix your drugs with these household products, seal them in an airtight container and throw it into the garbage. Call [facility]: [phone] to be sure your drugs can be [...] aware that I should contact my doctor. 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 Unchanged [id number] Milligram by mouth every 4 hours. dalfampridine [...] room. Call them with any questions at [phone] When Within 1-2 days Follow Up with [facility] When Within 1-2 days Why: [facility] RN for IV infusion and wound care. They will call you before coming out to the home. Call them with any questions at [phone] Follow Up with MUNIR SOLIZ DO When Within 1-2 days Why: Please call the office to schedule a follow-up appointment Where: [address] [place] [address]- Follow Up with [facility] - Patient [...] by MARTHA PACE on 04/10/2023 04:14 PM [facility] 04-10-2023 Procedure note VASCULAR ACCESS TEAMPOST PROCEDURE [...] LENGTH:38 cm EXTERNAL LENGTH:0cm ARM CIRC:_26cm LOT #:[id number] COMPLICATIONS: None INSERTED BY: Janelle Remy RN, assisted by Raheem Valera RN PLAN:_ PICC placement confirmed in lower SVC per ECG technology with Maximum P wave and absence of negative deflection/ Flushes easily with good blood return. Okay to use PICC now. Primary RN notified. Digitally Signed by CARL Remy on 04/10/2023 01:05 PM [facility] 04-10-2023 Infectious disease Progress note Date of [...] Katty Turcios RN on 04/10/2023 11:13 AM [facility] 04-10-2023 Note . MICRO - Microbiology PROCEDURE: [...] Locations *1: This test was performed at: [facility], [address] [place] [address], [id number] , [facility] ([place]) 04-10-2023 Infectious disease Progress note Date of [...] BLE numbness/tingling, RLE spasms, generalized weakness LINES/TUBES/DRAINS: NOI IV dressing dry & intact, no drainage [...] Katty Turcios RN on 04/10/2023 11:13 AM [facility] 04-10-2023 Note . MICRO - Microbiology PROCEDURE: Urine Culture [*1] SOURCE: Urine, Straight BODY SITE: Catherized COLLECTED DATE/TIME: 04/05/2023 23:51 EST RECEIVED DATE/TIME: 04/06/2023 20:55 EST START DATE/TIME: 04/06/2023 20:55 EST FREE TEXT SOURCE: FINAL REPORTS Final Report [] Verified Date/Time/Personnel: 04/10/2023 08:45 EST 1,000 cfu/ml Staphylococcus aureus 1,000 cfu/ml Kayley albicans Contact Microbiology within 72 hours if further identification is indicated ([id number]). [place] counts from a single urine are equivocal in determining infection vs. colonization of yeast. Multiple cultures at least 24 hours apart may be helpful in differentiating colonization from infection. PRELIMINARY REPORTS Preliminary Report [] Verified Date/Time/Personnel: 04/09/2023 08:45 EST 1,000 cfu/ml Staphylococcus aureus COLTON to follow 1,000 cfu/ml Kayley albicans Contact Microbiology within 72 hours if further identification is indicated ([id number]). [place] counts from a single urine are equivocal [...] Locations *1: This test was performed at: [facility], [address] [place] [address], [id number] , [facility] ([place]) 04-09-2023 Infectious disease Progress note Date of [...] and multiple decubitus ulcers who presented to [facility] due to concern of fevers and [...] CARDENAS BA, MD on 04/09/2023 04:16 PM [facility] 04-09-2023 Note Date of Service 04.09.23 Chief [...] by MARTHA PACE on 04/09/2023 04:00 PM [facility] 04-09-2023 Note . MICRO - Microbiology PROCEDURE: [...] Locations *1: This test was performed at: [facility], [address] [place] [address], [phone] , [facility] ([place]) 04-09-2023 Procedure note Date of Service April [...] MAXIMINO JOY MD on 04/09/2023 10:57 AM [facility] 04-08-2023 Note Date of Service 04.08.23 Chief [...] by MARTHA PACE on 04/08/2023 05:26 PM [facility] 04-08-2023 Infectious disease Progress note Hip wound cultures is revealing Pseudomonas species, will start the patient on meropenem pending sensitivity Digitally Signed by HECTOR CARDENAS BA, MD on 04/08/2023 04:30 PM [facility] 04-08-2023 Progress note Date of Service 04/07/2023 [...] Dakin's solution packing. Post-Procedure Exam Appeared much curtain cleaner Complications None Estimated Blood Loss 35 cc Total Time 25 minutes Assessment/Plan MS (multiple sclerosis) Osteomyelitis Follow Up/Recommendation Continue with the Dakin's solution dressings for the time being at her discharge we can change her to Aquacel Ag. Digitally Signed by MAXIMINO JOY MD on 04/08/2023 11:54 AM [facility] 04-08-2023 Note ORIGINAL EXAMINATION: ONE XRAY VIEW [...] Sign Date: 04/08/2023 12:16:29 AM Ordering Provider: [facility] 04-07-2023 Note Date of Service 04.07.23 [...] by MARTHA PACE on 04/07/2023 04:46 PM [facility] 04-07-2023 Note Date of Service 04.07.23 Chief [...] by MARTHA PACE on 04/07/2023 04:46 PM [facility] 04-06-2023 Infectious disease Consult note Date of Service 04/06/23 Reason for Consultation Infected decubitus ulcer Referring Physician Dr Young History of Present Illness This is a 57-year-old with a past medical history of multiple sclerosis wheelchair dependent, suprapubic catheter for neurogenic bladder, chronic deep venous ulcer presented to [facility] due to concern for fevers. There [...] does have issues with her MS. Per [facility] there was concern for soft blood [...] and multiple decubitus ulcers who presented to [facility] due to concern of fevers and [...] tablet, 1 gram(s)= 1 tab(s), Oral, BID [place] 325- 5 mg oral tablet, 1 tab(s), [...] data available. Digitally Signed by Mary Rosario on 04/06/2023 02:08 PM Digitally Signed by HECTOR CARDENAS BA, MD on 04/06/2023 04:00 PM [facility] 04-06-2023 Neurology Consult note Date of Service [...] on Tysabri at baseline, follows up with [facility]. Per patient she was started on Ocrevus in the past by [facility] and then later developed breast cancer, then [...] on Tysabri at baseline, follows up with [facility]. Per patient she was started on Ocrevus in the past by [facility] and then later developed breast cancer, then [...] Plan: -Per patient she follows up with [facility], gets her neuroimaging done there. -Discussed about checking MRI brain/spine with patient but at present she would want to hold off. Agree with the same as patient's presentation is more concerning for infection and she is feeling better with antibiotics, also follows up with [facility] for her neuroimaging. -Labs reviewed check UA, [...] answered This note has been generated using Dashride dictation software. It may contain incorrect words, [...] tablet, 1 gram(s)= 1 tab(s), Oral, BID [place] 325- 5 mg oral tablet, 1 tab(s), [...] ANUPAMA NEWTON MD on 04/06/2023 12:02 PM [facility] 04-06-2023 Note Reason for Consultation Admission From: [...] saline Hip Left - Pressure Area Description: [place], White, Yellow, Drainage/Exudate, Edges , Granulation, Tunneling [...] saline Hip Right - Pressure Area Description: [place], Epithelialization with crusted weeping Hip Right - [...] Signed by CARL García June04/06/2023 11:32 AM [facility] 04-06-2023 Note I was in completing a skin assessment and noted patient has an established LLQ colostomy. Patient has low output and uses a 2 piece 2 3/4 in. non drainable ostomy pouch. System intact with a pink moist stoma spout. Patient has own personal supplies for appliance changes. No needs at this time. Digitally Signed by CARL García June04/06/2023 11:22 AM [facility] 04-06-2023 Consult note Date of Service April [...] present it has been followed at the [facility] for the past 1 year but because they found some more infection and pus in this area she was transferred over to [facility] from [facility] for further care and treatment Review [...] Aquacel Ag at the wound clinic in [place]. Found out there was more drainage she was transferred over to [facility] for further care and treatment Physical Exam [...] her discharge patient can be followed at [facility] by me at that time we can [...] tablet, 1 gram(s)= 1 tab(s), Oral, BID [place] 325- 5 mg oral tablet, 1 tab(s), [...] MAXIMINO JOY MD on 04/06/2023 11:00 AM [facility] 04-05-2023 Note ORIGINAL EXAMINATION: CT OF THE [...] Sign Date: 04/06/2023 12:47:04 AM Ordering Provider: [facility] 04-05-2023 History and physical note Date of Service 04/05/2023 decubitus Chief Complaint Infected decubitus ulcer History of Present Illness 57-year-old with a past medical history of multiple sclerosis wheelchair dependent, suprapubic catheter for neurogenic bladder, chronic deep venous ulcer presented to [facility] due to concern for fevers. There [...] does have issues with her MS. Per [facility] there was concern for soft blood [...] on wound cultures and blood culture from [facility]. Neurology consultation for MS. ESR [...] HERBIE WYNNE MD on 04/05/2023 07:47 PM [facility] Assessment 1. Infected decubitus ulcer 2. Multiple sclerosis wheelchair dependent 3. Suprapubic Neurogenic bladder 4. Completed 10 days of cefepime for recent Pseudomonas UTI Plan 1. At this time we will go ahead and continue vancomycin and Zosyn. To go ahead and consult infectious disease and plastic surgery wound care. Blood cultures. Follow-up on wound cultures and blood culture from [facility]. Neurology consultation for MS. ESR and CRP. CT abdomen/pelvis. This document was transcribed using a voice recognition software and may contain typographical errors. [facility] evaluation + Plan note No data available for this section [facility] Evaluation note* Diagnosis Spastic quadriparesis (HCC)- Primary Quadriplegia, unspecified Multiple sclerosis (HCC) Multiple sclerosis documented in this encounter [facility] Discharge instructions No data available for this section [facility] Progress note No data available for this section [facility] Summary Purpose Family History No Family History Records Found Advance Directives No Advanced Directives Records FoundNo Advanced Directives Records Found Additional Source Comments Care Team (unrecognized sect ion and content) Care Team (unrecognized sect ion and content) Care Team Personnel Name: MUNIR SOLIZ DO Member Role: Primary Care Physician Address: Address: [address] [place] [address] Care Team Related Persons Name: NIKUNJJAMES GUTIERREZ Care Team Personnel Name: MUNIR SOLIZ DO Member Role: Primary Care Physician Address: Address: [address] [place] [address] Care Team Related Persons Name: JAMES OJEDA Source Comments (unrecognize d section and content) In the event this informatio n is protected by the Federal Confidentiality of Alcohol and Drug Abuse Patient Records regulations: The Federal rules restrict any use of the information to criminally investigate or prosecute any alcohol or drug abuse patient.[facility] Reason for Visit (unrecogniz ed section and content) Specialty Diagnoses / Procedures Referred By Contvane t Referred To [facility] Diagnoses Spasticity Procedures REFERRAL TO [facility] FINANCIAL COUNSELOR VIDEO SPEC [facility] [address] [place] [address] Referral ID Status Reason Start Date Expiration Date Visits Requested Visits Authorized [id number] Outside PCP Financial Clearance Required - [employer] 04/23/2023 07/22/2023 1 1 INFORMATION SOURCE (unrecogn ized section and content) DATE CREATED AUTHOR AUTHOR'S ORGANIZ ATION 05/15/2023 [facility] ([place] FOR RECORDS PERTAINING TO PATIENTS WHO ARE [...] BE BASED ON THE PRIMARY CLINICAL RECORDS. [employer] [facility]. provides no warranty or guarantee of the accuracy or completeness of information in this document.
[2023-05-18 12:20] LABS: ALB/GLOB Ratio 0.9 RATIO (0.9-2.4); AST(SGOT) 21 U/L (15-37); Alanine Aminotransfer ALT/SGPT 39 U/L (13-56); Albumin, Serum 3.3 g/dL (3.2-5.0); Alkaline Phosphatase 113 U/L (45-117); Anion Gap 2 (5-15); BUN 23 mg/dL (7-18); BUN/Creat Ratio 56.8 RATIO (10-20); Calcium,Total 9.7 mg/dL (8.5-10.1); Chloride 106 mmol/L (98-107); EST Glomerular Filtration Rate 172 mL/min (>60); Est Glom Filt Rate - Afr Amer 208 mL/min (>60); Globulin 3.6 g/dL (2.2-4.2); Glucose 90 mg/dL (74-106); Protein, Total 6.9 g/dL (6.4-8.2); Sodium Level 139 mmol/L (136-145)
[2023-05-18 12:43] LABS: Erythrocyte Sedimentation Rate 28 mm/hr (0-30)
[2023-05-18 12:54] LABS: Absolute Lymphocyte Count 1.95 X10^3/uL (0.83-4.51); Absolute Neutrophil Count 3.7 X10^3/uL (2.0-7.7); Basophil# 0.05 X10^3/uL; Basophil% 0.7 % (0-1); Eosinophil# 0.44 X10^3/uL; Eosinophils% 6.5 % (0-5); Hematocrit 39.1 % (37-47); Hemoglobin 12.6 g/dL (12.0-15.0); Lymphocyte # 1.95 X10^3/ul (0.83-4.51); Lymphocyte % 28.6 % (19-41); Mean Corp Hgb Conc 32.2 g/dL (32-36); Mean Corpuscular Hgb 30.3 pg (27.0-32.0); Mean Platelet Vol. 11.4 fl (6.2-12.0); Monocyte# 0.71 X10^3/uL; Monocyte% 10.4 % (0-10); NRBC Flagged by Analyzer 0 % (0-5); Neutrophil # 3.66 X10^3/uL (2.7-7.7); Neutrophil % 53.7 % (47-70); Platelet Count 273 K/mm3 (150-450); RBC Distribution Width CV 14.6 % (11.6-14.6); RBC Distribution Width SD 50.1 fl (35.1-43.9); Red Blood Count 4.16 M/mm3 (4.2-5.4); White Blood Count 6.8 K/mm3 (4.4-11.0)
== END | disposition home or self-care (01) ==
LOC: LABSPEC 11:48
PROVIDERS: PCP Family Medicine; Referring Provider Internal Medicine Infectious Disease; Visit Provider Internal Medicine Infectious Disease
DX: M86.9 Osteomyelitis, unspecified (principal)
CPT/HCPCS: 80053; 85025; 85652

== ENCOUNTER → 2023-06-01 | Outpatient (CLI) | payer MEDICARE, SELFPAY ==
[2018-02-01 11:47] VITALS: BMI 15.0
== END | disposition home or self-care (01) ==
LOC: LABSPEC 12:51
PROVIDERS: PCP Family Medicine; Visit Provider Family Medicine
DX: R30.0 Dysuria (principal)
CPT/HCPCS: 87086; 87088

== ENCOUNTER → 2023-06-30 | Outpatient (CLI) | payer MEDICARE, SELFPAY ==
[2018-02-01 11:47] VITALS: BMI 15.0
== END | disposition home or self-care (01) ==
LOC: LAB 11:22
PROVIDERS: PCP Family Medicine; Referring Provider Family Medicine; Visit Provider Family Medicine
DX: N39.0 Urinary tract infection, site not specified (principal)
CPT/HCPCS: 87077; 87086; 87088; 87186

== ENCOUNTER → 2023-07-15 | Outpatient (CLI) | payer MEDICARE, SELFPAY ==
[2018-02-01 11:47] VITALS: BMI 15.0
[2023-07-15 15:27] LABS: Color, Urine Yellow (Yellow); Glucose, Dipstick Normal (Normal); Ketone-Dipstick Negative (Negative); Leukocyte Esterase-Dipstick 500 /ul (Negative); Nitrite-Dipstick Negative (Negative); Occult Blood-Urine 50 /ul (Negative); Protein-Dipstick Negative (Negative); Urine Bilirubin Dipstick Negative (Negative); Urine Clarity Clear (Clear); Urine Urobilinogen Normal (Normal)
== END | disposition home or self-care (01) ==
LOC: LAB 14:43 → LABSPEC 14:47
PROVIDERS: PCP Family Medicine; Referring Provider Family Medicine; Visit Provider Family Medicine
DX: N39.0 Urinary tract infection, site not specified (principal)
CPT/HCPCS: 81002; 87077; 87086; 87088

== ENCOUNTER → 2023-08-06 | Outpatient (CLI) | payer MEDICARE, SELFPAY ==
[2018-02-01 11:47] VITALS: BMI 15.0
== END | disposition home or self-care (01) ==
LOC: LABSPEC 11:24
PROVIDERS: PCP Family Medicine; Referring Provider Family Medicine; Visit Provider Family Medicine
DX: N39.0 Urinary tract infection, site not specified (principal)
CPT/HCPCS: 87086; 87088

== ENCOUNTER → 2023-11-05 | Outpatient (CLI) | payer MEDICARE, SELFPAY ==
[2018-02-01 11:47] VITALS: BMI 15.0
--- NOTE | 2023-11-05 09:38 | BI_ITS ---
MAMMOGRAPHY - UNILATERAL SCREENING: RIGHT BREAST REASON FOR EXAM: Female, 58 years old. Routine annual screening examination (unilateral). PERTINENT HISTORY: Personal history of breast cancer. Prior left mastectomy and radiation TECHNIQUE: Digital unilateral breast frederick (3D mammographic acquisition) in the CC and MLO projections. 2-D mediolateral oblique (MLO) and craniocaudad (CC) views of both breasts were obtained. CAD: Full Field Digital Mammography with Computer Added Detection was performed. COMPARISON: Comparison is made with prior study September 29, 2022 and July 10, 2021. FINDINGS: Breast Composition: The breasts are heterogeneously dense, which may obscure small masses. There are no dominant masses or suspicious calcifications. No other significant abnormalities are identified. There has been no significant change since the prior study. BI/SCREEN MAMM (CAD) W/FREDERICK UNI R IMPRESSION: Stable unilateral screening mammogram. Yearly follow-up mammogram recommended. (A) ASSESSMENT CATEGORY: BIRADS Category 1: Negative. A letter regarding these results will be sent to the patient by the facility within 30 days. Approximately 10% of breast cancers are not detected by mammography. A normal mammogram should not delay biopsy of a clinically suspicious abnormality. [id number] Electronically Signed: Dinesh Marie MD at 12:13 EDT ,
[2023-11-05 10:50] LABS: Color, Urine Yellow (Yellow); Glucose, Dipstick Normal (Normal); Ketone-Dipstick Negative (Negative); Leukocyte Esterase-Dipstick 500 /ul (Negative); Nitrite-Dipstick Negative (Negative); Occult Blood-Urine 25 /ul (Negative); Protein-Dipstick 15 mg/dl (Negative); Specific Gravity, Urine 1.015 (1.002-1.030); Urine Bilirubin Dipstick Negative (Negative); Urine Clarity Sl. Cloudy (Clear); Urine Urobilinogen Normal (Normal)
== END | disposition home or self-care (01) ==
PROVIDERS: PCP Family Medicine; Referring Provider Internal Medicine Medical Oncology; Visit Provider Internal Medicine Medical Oncology
DX: Z12.31 Encounter for screening mammogram for malignant neoplasm of breast (principal); Z85.3 Personal history of malignant neoplasm of breast; Z90.12 Acquired absence of left breast and nipple; N39.0 Urinary tract infection, site not specified
CPT/HCPCS: 77063; 77067; 81002; 87086; 87088

== ENCOUNTER → 2023-11-27 | Outpatient (CLI) | payer MEDICARE, SELFPAY ==
[2018-02-01 11:47] VITALS: BMI 15.0
[2023-11-27 13:29] LABS: Color, Urine Yellow (Yellow); Glucose, Dipstick Normal (Normal); Ketone-Dipstick Negative (Negative); Leukocyte Esterase-Dipstick 25 /ul (Negative); Nitrite-Dipstick Negative (Negative); Occult Blood-Urine 10 /ul (Negative); Protein-Dipstick Negative (Negative); Urine Bilirubin Dipstick Negative (Negative); Urine Clarity Clear (Clear); Urine Urobilinogen Normal (Normal)
== END | disposition home or self-care (01) ==
LOC: LAB 12:29 → LABSPEC 12:30
PROVIDERS: PCP Family Medicine; Referring Provider Family Medicine; Visit Provider Family Medicine
DX: N39.0 Urinary tract infection, site not specified (principal)
CPT/HCPCS: 81002; 87086; 87088

== ENCOUNTER 2023-12-31 10:53 | Emergency (ER) | payer MEDICARE, SELFPAY ==
[2018-02-01 11:47] VITALS: BMI 15.0
[2023-12-31 10:53] VITALS: BP 129/92; PULSE 77; RESP 18; TEMP 36.4; O2SAT 98; BMI 20.3
--- NOTE | 2023-12-31 12:05 | EX.ED.DYSGE1 ---
HPI History of Present Illness Chief Complaint: Rash Informant: patient Onset/Context/Timing Onset: Days Context: Gradual Onset Timing: Continuous Location: Left upper extremity, left upper thoracic area, and right upper thoracic Worsened by: Nothing Relieved by: Nothing Narrative Narrative: Patient presents with rash to her left upper extremity that has been constant for the past week. Patient was diagnosed with shingles and was given a prescription for valacyclovir. Patient states she has been taking the valacyclovir as prescribed. Patient states she saw her reinsurance clerk today. Noted that the rash crosses the midline and the reinsurance clerk was concerned that the shingles has disseminated. Patient was sent to the emergency department for further evaluation of possible disseminated varicella-zoster. Patient denies any fevers or chills. Patient denies any nausea or vomiting. Patient denies any chest pain or shortness of breath. Patient denies any urinary complaints. Patient denies any neck or back pain. Patient's neurologist called and stated that she is on monthly IV monoclonal antibodies. He states that this is not an immunosuppressant medication. [facility] Medical History Suprapubic catheter Neurogenic bladder Sacral decubitus ulcer, stage III Decubitus ulcer of left buttock, stage 3 Decubitus ulcer of right buttock, stage 3 Cancer Pressure ulcer of right ischium PONV (postoperative nausea and vomiting) Seasonal allergies Wears glasses Post-menopausal Marijuana use Uses wheelchair Former smoker History of edema Weakness History of breast cancer Screening for malignant neoplasm of breast Pressure injury of sacral region, stage 4 Pressure injury of left hip, stage 4 Pressure injury of right hip, stage 4 Pressure injury of left hip, unstageable Pressure injury of right hip, stage 2 Muscle spasm Breast cancer Urinary retention Multiple sclerosis Closed fracture of right distal femur Debility Chronic indwelling Pandey catheter Femur fracture, right History of left breast cancer Cystitis Breast cancer Multiple sclerosis Estrogen receptor positive status [ER+] Disproportion of reconstructed breast Breast cancer, left Multiple sclerosis Home Medications ?Medication ?Instructions ?Recorded ?Last Taken ?Type cholecalciferol (vitamin D3) 250 5,000 unit PO DAILY supplement 10/09/17 06/29/22 History mcg (10,000 unit) capsule dalfampridine 10 mg 10 mg PO BID MS 03/24/18 06/29/22 History tablet,extended release,12 hr ascorbic acid (vitamin C) 1,000 mg 1 g PO DAILY Check with primary 07/12/21 06/29/22 History chewable tablet doctor zinc 50 mg capsule 50 mg PO DAILY Check with primary 07/12/21 06/29/22 History doctor natalizumab 300 mg/15 mL 300 mg IV QMONTH 10/02/22 Unknown History intravenous solution (Tysabri) baclofen 10 mg tablet 20 mg PO Q4H 11/06/22 11/13/22 History methenamine hippurate 1 gram tablet 1 g PO BID 04/02/23 Unknown History nitrofurantoin 100 mg PO Q12 #10 CAPSULES 12/31/23 Unknown Rx monohydrate/macrocrystals 100 mg capsule valacyclovir 1 gram tablet 1,000 mg PO TID #15 tabs 12/31/23 Unknown Rx Allergy/AdvReac Type Severity Reaction Status Date / Time clavulanic acid (From AdvReac Unknown Diarrhea Verified 04/27/23 10:22 Augmentin) Family History (System 04/27/23 @ 10:22 by Liliana Putnam) Aunt Breast cancer Mother Diabetes Surgical History History of colostomy History of bilateral oophorectomy S/P left mastectomy (~10/12/17) h/o tonsillectomy Social History household members: spouse Smoking Status: Former smoker alcohol intake: never ROS ROS ED Constitutional Constitutional ED: Denies chills or fever(s) Eyes Eyes: Denies blurry vision or change in vision ENT ENT ED: Denies rhinorrhea or sore throat Cardiovascular Cardiovascular: Denies chest pain or palpitations Respiratory/Chest Respiratory/Chest: Denies cough or dyspnea Gastrointestinal Gastrointestinal: Denies nausea or vomiting Genitourinary Genitourinary ED: Denies dysuria or hematuria Musculoskeletal Musculoskeletal: Denies back pain or neck pain Integumentary Reports rash; Denies abscess Neurologic Neurologic: Reports weakness; Denies headache(s) Allergic/Immunologic Allergic/Immunologic ED: Denies mouth swelling or urticaria EXAM Physical Exam Const Vital Signs: 12/31/23 10:53 12/31/23 14:06 Temperature 97.6 F L Temperature Source Temporal Pulse Rate 77 87 Respiratory Rate 18 18 Blood Pressure 129/92 H 143/80 H Blood Pressure Mean 104 101 Pulse Ox 98 96 Oxygen Delivery Method Room Air Positive well nourished and well developed General Appearance ED: well developed and NAD HEENT Reports TM's clear and moist mucous membranes Tympanic Membrane ED: Yes TM's clear bilateral Neck supple and no JVD Resp normal respiratory effort and clear to auscultation bilaterally Cardio regular rate and regular rhythm GI non-tender and non-distended Palpation: soft Neuro oriented x3, CN's II-XII intact bilaterally and no sensory deficits noted Sensorium / Orientation: alert Skin Skin Narrative: There is a vesicular patchy rash over the left upper extremity along the C8 and T1 dermatomes. There is also a small lesion on the right upper thoracic area over the T1 dermatome just to the right of midline. There is no active discharge or drainage. There is no surrounding erythema or warmth noted. There are no petechia noted. There is no involvement of the mucous membranes. There is no sloughing of the skin. MDM MDM MDM Narrative Medical decision making narrative: Differential diagnosis includes disseminated varicella-zoster, dermatitis, multiple sclerosis, and contact dermatitis. Chest x-ray will be obtained to assess for viral pneumonia. CBC will be obtained to assess for leukocytosis and anemia. Basic metabolic profile will be obtained to assess for electrolyte abnormality and renal function. Urinalysis will be obtained to assess for urinary tract infection and hematuria. Serum lactate will be obtained to assess for sepsis. Lab Data Attestation: I reviewed the patient's lab results. Lab results narrative: CBC was reviewed and was within normal limits. Basic metabolic profile was reviewed and was within normal limits. Lactate was reviewed and was normal. Urinalysis was reviewed. Leukocyte esterase was 500 with positive nitrites and 5-10 white blood cells. There is 2+ bacteria. There is 2+ yeast. Labs: Laboratory Results - last 24 hr 12/31/23 12/31/23 12:35 13:12 WBC 5.9 RBC 4.48 Hgb 13.7 Hct 40.3 MCV 90.0 MCH 30.6 MCHC 34.0 RDW Std Deviation 48.6 H RDW Coeff of Raisa 15.1 H Plt Count 258 MPV 10.7 Immature Gran % (Auto) 0.300 Neut % (Auto) 48.0 Lymph % (Auto) 39.0 [place] % (Auto) 6.6 Eos % (Auto) 5.4 H Baso % (Auto) 0.7 Absolute Neuts (auto) 2.8 Absolute Lymphs (auto) 2.31 Nucleated RBC % 0.8 Sodium 138 Potassium 4.1 Chloride 106 Carbon Dioxide 29.0 Anion Gap 3 L BUN 12 Creatinine 0.36 L Estim Creat Clear Calc 158.56 Est GFR (MDRD) Af Amer 237 Est GFR (MDRD) Non-Af 196 BUN/Creatinine Ratio 33.2 H Glucose 104 Lactic Acid 0.8 Calcium 9.8 Urine Color Yellow Urine Clarity Clear Urine pH 6.0 Ur Specific [place] 1.020 Urine Protein Negative Urine Glucose (UA) Normal Urine Ketones Negative Urine Occult Blood 50 H Urine Nitrite Positive H Urine Bilirubin Negative Urine Urobilinogen Normal Ur Leukocyte Esterase 500 H Urine RBC 0-5 SEEN Urine WBC 5-10 SEEN Ur Squamous Epith Cells 0-5 SEEN Urine Bacteria 2+ Urine Mucus 0 SEEN Urine Yeast 2+ Radiography Chest X-Ray - ED: 2 View, Read by ED Physician, Read by Radiologist and No Acute Disease Diagnostic Testing: Clinical Impression(s) from Imaging Studies Chest X-Ray 12/31/23 12:57 IMPRESSION: No acute cardiopulmonary process identified. Electronically Signed: Pratibha Lockhart MD at 13:31 EDT , PA and lateral chest x-ray was obtained. There are 2 views. On my independent interpretation, lung biggs are clear. There is normal cardiac silhouette. Bony thorax is normal. There is no acute process noted. Radiologist also interpreted the x-ray and agrees. Management Discussion w/another healthcare provider: Curriculum Development Coordinator Additional Tests and Interventions Additional Tests or Interventions: Urine culture was ordered. Treatment and Re-Evaluation :: Patient was given a dose of IV acyclovir here. Urine culture was obtained. Patient was advised of her findings. Case was discussed with her neurologist who stated that patient is not on an immunosuppressant medication but only IV monoclonal antibodies. Case was discussed with patient's reinsurance clerk. He recommended starting the patient on Valtrex for 5 more days. They will follow-up with the patient next week. Patient feels better and wants to go home. Patient was also given a prescription for Macrobid for urinary tract infection. Patient was instructed to follow-up with her primary care physician in 5 to 7 days. Patient understood and was agreeable with the plan. All questions were answered. Discharge Plan Triage Chief Complaint: Rash ED Provider: George Vargas Dx/Rx/DC Orders Clinical Impression: Varicella zoster, UTI (urinary tract infection) Instructions: ED Shingles (Herpes Zoster) Prescriptions: New nitrofurantoin monohyd/m-cryst 100 mg capsule 100 mg PO Q12 Qty: 10 0RF valacyclovir 1 gram tablet 1,000 mg PO TID Qty: 15 0RF No Action Tysabri 300 mg/15 mL solution 300 mg IV QMONTH Rx Instructions: 300 mg intravenously; once a month methenamine hippurate 1 gram tablet 1 g PO BID cholecalciferol (vitamin D3) 10,000 UNIT capsule 5,000 unit PO DAILY dalfampridine 10 MG tablet extended release 12 hr 10 mg PO BID ascorbic acid (vitamin C) 1,000 mg Tablet,Chewable 1 g PO DAILY zinc 50 mg Capsule 50 mg PO DAILY baclofen 10 mg tablet 20 mg PO Q4H Patient Comments: TAKE 1 TABLET BY MOUTHEEVERY 6 HOURS Primary Care Provider: Mario Soliz Referrals: Mario Soliz DO [Primary Care Provider] - 5-7 Days Ankita Turner PA [Non-Staff] - 5-7 Days Print Language: Ethiopian Disposition Disposition: Home, Self Care
[2023-12-31 12:41] LABS: Absolute Lymphocyte Count 2.31 X10^3/uL (0.83-4.51); Absolute Neutrophil Count 2.8 X10^3/uL (2.0-7.7); Basophil# 0.04 X10^3/uL; Basophil% 0.7 % (0-1); Eosinophil# 0.32 X10^3/uL; Eosinophils% 5.4 % (0-5); Hematocrit 40.3 % (37-47); Hemoglobin 13.7 g/dL (12.0-15.0); Lymphocyte # 2.31 X10^3/ul (0.83-4.51); Mean Corpuscular Hgb 30.6 pg (27.0-32.0); Mean Platelet Vol. 10.7 fl (6.2-12.0); Monocyte# 0.39 X10^3/uL; Monocyte% 6.6 % (0-10); NRBC Flagged by Analyzer 0.8 % (0-5); Neutrophil # 2.84 X10^3/uL (2.7-7.7); Platelet Count 258 K/mm3 (150-450); RBC Distribution Width CV 15.1 % (11.6-14.6); RBC Distribution Width SD 48.6 fl (35.1-43.9); Red Blood Count 4.48 M/mm3 (4.2-5.4); White Blood Count 5.9 K/mm3 (4.4-11.0)
[2023-12-31 12:56] LABS: Anion Gap 3 (5-15); BUN 12 mg/dL (7-18); BUN/Creat Ratio 33.2 RATIO (10-20); Calcium,Total 9.8 mg/dL (8.5-10.1); Chloride 106 mmol/L (98-107); Creatinine, Serum 0.36 mg/dL (0.55-1.02); EST Glomerular Filtration Rate 196 mL/min (>60); Est Glom Filt Rate - Afr Amer 237 mL/min (>60); Estimated Creatinine Clearance 158.56 ml/min; Glucose 104 mg/dL (74-106); Potassium 4.1 mmol/L (3.5-5.1); Sodium Level 138 mmol/L (136-145)
--- NOTE | 2023-12-31 12:57 | RAD_ITS ---
HISTORY: Pain. TECHNIQUE: XR Chest 2 Views. COMPARISON: 04/05/2023. FINDINGS: CARDIOMEDIASTINAL BORDERS: Cardiac silhouette within normal limits in size. Mediastinal contour unremarkable. LUNGS: Chronic left apical scarring and mild hyperinflation. PLEURA: No pleural effusion or pneumothorax seen. OSSEOUS STRUCTURES: Mild degenerative change. Left axillary surgical clips again seen. RAD/Chest PA and Lateral IMPRESSION: No acute cardiopulmonary process identified. Electronically Signed: Pratibha Lockhart MD at 13:31 EDT ,
[2023-12-31 13:12] LABS: Lactic Acid 0.8 mmol/L (0.4-1.9)
[2023-12-31 13:18] LABS: Mucous, Urine 0 SEEN /hpf (<or=2+)
[2023-12-31 13:22] LABS: Color, Urine Yellow (Yellow); Glucose, Dipstick Normal (Normal); Ketone-Dipstick Negative (Negative); Leukocyte Esterase-Dipstick 500 /ul (Negative); Nitrite-Dipstick Positive (Negative); Occult Blood-Urine 50 /ul (Negative); Protein-Dipstick Negative (Negative); Urine Bilirubin Dipstick Negative (Negative); Urine Clarity Clear (Clear); Urine Urobilinogen Normal (Normal)
[2023-12-31 13:29] LABS: Bacteria 2+ /hpf (None Seen); Red Blood Cells-Urine 0-5 SEEN /hpf (0-5); Squamous Epithelial Cells - UA 0-5 SEEN /hpf (5-10); White Blood Cells 5-10 SEEN /hpf (0-5); Yeast-Urine 2+ /hpf (None Seen)
[2023-12-31 14:06] VITALS: BP 143/80; PULSE 87; RESP 18; O2SAT 96
[2023-12-31] MEDS: ACYCLOVIR IV (14:38)
[2023-12-31] MEDS: DEXTROSE 5% IV (14:38)
[2023-12-31] MEDS: WATER IV (14:38)
[2023-12-31 15:18] VITALS: BP 128/78; PULSE 78; RESP 16; TEMP 36.6; O2SAT 99
== END 2023-12-31 15:48 | disposition home or self-care (01) ==
PROVIDERS: Emergency Provider Emergency Medicine; PCP Family Medicine; Visit Provider Emergency Medicine
DX: B02.1 Zoster meningitis (principal); Z93.3 Colostomy status; N39.0 Urinary tract infection, site not specified; Z87.891 Personal history of nicotine dependence; Z85.3 Personal history of malignant neoplasm of breast; Z90.722 Acquired absence of ovaries, bilateral; Z90.12 Acquired absence of left breast and nipple
CPT/HCPCS: 36415; 71046; 80048; 81001; 83605; 85025; 96365; 99283

== ENCOUNTER → 2024-01-15 | Outpatient (CLI) | payer MEDICARE, SELFPAY ==
[2018-02-01 11:47] VITALS: BMI 15.0
== END | disposition home or self-care (01) ==
LOC: LABSPEC 01-16 02:26
PROVIDERS: PCP Family Medicine; Referring Provider Family Medicine; Visit Provider Family Medicine
DX: R82.90 Unspecified abnormal findings in urine (principal)
CPT/HCPCS: 87077; 87086; 87088; 87186

== ENCOUNTER → 2024-02-05 | Outpatient (CLI) | payer MEDICARE, SELFPAY ==
[2018-02-01 11:47] VITALS: BMI 15.0
[2024-02-05 14:03] LABS: Color, Urine Yellow (Yellow); Glucose, Dipstick Normal (Normal); Ketone-Dipstick Negative (Negative); Leukocyte Esterase-Dipstick 100 /ul (Negative); Nitrite-Dipstick Negative (Negative); Occult Blood-Urine 25 /ul (Negative); Protein-Dipstick 15 mg/dl (Negative); Specific Gravity, Urine 1.015 (1.002-1.030); Urine Bilirubin Dipstick Negative (Negative); Urine Clarity Clear (Clear); Urine Urobilinogen Normal (Normal)
== END | disposition home or self-care (01) ==
LOC: LAB 13:10
PROVIDERS: PCP Family Medicine; Referring Provider Family Medicine; Visit Provider Family Medicine
DX: N39.0 Urinary tract infection, site not specified (principal)
CPT/HCPCS: 81002; 87086; 87088

== ENCOUNTER → 2024-02-19 | Outpatient (CLI) | payer MEDICARE, SELFPAY ==
[2018-02-01 11:47] VITALS: BMI 15.0
[2024-02-19 17:16] LABS: Glucose, Dipstick Normal (Normal); Ketone-Dipstick Negative (Negative); Leukocyte Esterase-Dipstick 500 /ul (Negative); Nitrite-Dipstick Negative (Negative); Occult Blood-Urine 25 /ul (Negative); Protein-Dipstick Negative (Negative); Urine Bilirubin Dipstick Negative (Negative); Urine Urobilinogen Normal (Normal)
[2024-02-19 17:26] LABS: Color, Urine Straw (Yellow); Urine Clarity Clear (Clear)
== END | disposition home or self-care (01) ==
LOC: LABSPEC 17:03
PROVIDERS: PCP Family Medicine; Referring Provider Family Medicine; Visit Provider Family Medicine
DX: R82.90 Unspecified abnormal findings in urine (principal)
CPT/HCPCS: 81002; 87077; 87086; 87088; 87186

== ENCOUNTER → 2024-03-08 | Outpatient (CLI) | payer MEDICARE, SELFPAY ==
[2018-02-01 11:47] VITALS: BMI 15.0
[2024-03-08 14:36] LABS: Color, Urine Yellow (Yellow); Glucose, Dipstick Normal (Normal); Ketone-Dipstick Negative (Negative); Leukocyte Esterase-Dipstick 500 /ul (Negative); Nitrite-Dipstick Negative (Negative); Occult Blood-Urine 25 /ul (Negative); Protein-Dipstick Negative (Negative); Specific Gravity, Urine 1.015 (1.002-1.030); Urine Bilirubin Dipstick Negative (Negative); Urine Clarity Sl. Cloudy (Clear); Urine Urobilinogen Normal (Normal)
== END | disposition home or self-care (01) ==
LOC: LABSPEC 14:13
PROVIDERS: PCP Family Medicine; Referring Provider Family Medicine; Visit Provider Family Medicine
DX: N39.0 Urinary tract infection, site not specified (principal)
CPT/HCPCS: 81002; 87086; 87088

== ENCOUNTER → 2024-03-30 | Outpatient (CLI) | payer MEDICARE, SELFPAY ==
[2018-02-01 11:47] VITALS: BMI 15.0
[2024-03-30 16:22] LABS: Color, Urine Yellow (Yellow); Glucose, Dipstick Normal (Normal); Ketone-Dipstick Negative (Negative); Leukocyte Esterase-Dipstick 25 /ul (Negative); Nitrite-Dipstick Positive (Negative); Occult Blood-Urine 10 /ul (Negative); Protein-Dipstick 15 mg/dl (Negative); Urine Bilirubin Dipstick Negative (Negative); Urine Clarity Clear (Clear); Urine Urobilinogen Normal (Normal)
== END | disposition home or self-care (01) ==
LOC: LABSPEC 04-04 08:30
PROVIDERS: PCP Family Medicine; Visit Provider Family Medicine
DX: N39.0 Urinary tract infection, site not specified (principal)
CPT/HCPCS: 81002; 87077; 87086; 87088; 87186

== ENCOUNTER → 2024-04-20 | Outpatient (CLI) | payer MEDICARE, SELFPAY ==
[2018-02-01 11:47] VITALS: BMI 15.0
[2024-04-20 19:22] LABS: Color, Urine Yellow (Yellow); Glucose, Dipstick Normal (Normal); Ketone-Dipstick Negative (Negative); Leukocyte Esterase-Dipstick 500 /ul (Negative); Nitrite-Dipstick Negative (Negative); Occult Blood-Urine 10 /ul (Negative); Protein-Dipstick Negative (Negative); Specific Gravity, Urine 1.015 (1.002-1.030); Urine Bilirubin Dipstick Negative (Negative); Urine Clarity Sl. Cloudy (Clear); Urine Urobilinogen Normal (Normal)
== END | disposition home or self-care (01) ==
LOC: LABSPEC 04-21 09:05 → LAB.FUTURE 04-25 08:15 → LABSPEC 04-25 08:15
PROVIDERS: PCP Family Medicine; Visit Provider Internal Medicine Infectious Disease
DX: B37.41 Candidal cystitis and urethritis (principal)
CPT/HCPCS: 81002; 87086; 87088

== ENCOUNTER → 2024-04-25 | Outpatient (CLI) | payer MEDICARE, SELFPAY ==
[2018-02-01 11:47] VITALS: BMI 15.0
== END | disposition home or self-care (01) ==
PROVIDERS: PCP Family Medicine; Referring Provider Urology; Visit Provider Urology
DX: N39.0 Urinary tract infection, site not specified (principal)
CPT/HCPCS: 87086; 87088

== ENCOUNTER → 2024-05-11 | Outpatient (CLI) | payer MEDICARE, SELFPAY ==
[2018-02-01 11:47] VITALS: BMI 15.0
== END | disposition home or self-care (01) ==
LOC: LAB 01-25 11:44
PROVIDERS: PCP Family Medicine; Visit Provider Family Medicine
DX: N39.0 Urinary tract infection, site not specified (principal)
CPT/HCPCS: 87086; 87088

== ENCOUNTER → 2024-08-04 | Outpatient (CLI) | payer MEDICARE, SELFPAY ==
[2018-02-01 11:47] VITALS: BMI 15.0
[2024-08-04 12:48] LABS: PTHIN 35 pg/mL (11-61)
[2024-08-04 13:13] LABS: Calcium 9.8 mg/dL (7.6-11.0); Ferritin 101 ng/mL (22-378); Vitamin B12 994 pg/mL (180-914); Vitamin D,25 Hydroxy 45.1 ng/mL (30-100)
== END | disposition home or self-care (01) ==
LOC: MTLAB 10:25
PROVIDERS: PCP Family Medicine; Referring Provider Physician Assistant Medical; Visit Provider Physician Assistant Medical
DX: L65.9 Nonscarring hair loss, unspecified (principal)
CPT/HCPCS: 36415; 82306; 82310; 82607; 82728; 83970; 84439; 84480; 84630; 86376

== ENCOUNTER 2024-10-31 12:50 | Emergency (ER) | payer MEDICARE, SELFPAY ==
[2018-02-01 11:47] VITALS: BMI 15.0
[2024-10-31 12:51] VITALS: BP 116/72; PULSE 80; RESP 16; TEMP 36.5; O2SAT 99
[2024-10-31 13:09] VITALS: BMI 19.8
--- NOTE | 2024-10-31 14:04 | EDS_ITS ---
HPI HPI - Female History of Present Illness Chief Complaint: Pandey C/O Informant: patient Narrative Narrative: Patient is a 59-year-old female with history of neurogenic bladder, suprapubic catheter, colostomy and MS presenting from home for pain associated with suprapubic catheter replacement. He states she has replaced every 3 weeks. She follows with urology at [facility]. She gets biweekly gentamicin bladder flushes. She is due for 1 today. These are for chronic UTIs. She had a home health nurse that was attempting to replace her suprapubic catheter and she had a lot of pain which is unusual for her. Both times they attempted it went in and then out her urethra. She is having pain associated with this. Came in for further evaluation. Otherwise been in her normal state of health. [facility] Medical History Screening for malignant neoplasm of breast History of breast cancer Suprapubic catheter Neurogenic bladder Sacral decubitus ulcer, stage III Decubitus ulcer of left buttock, stage 3 Decubitus ulcer of right buttock, stage 3 Cancer Pressure ulcer of right ischium PONV (postoperative nausea and vomiting) Seasonal allergies Wears glasses Post-menopausal Marijuana use Uses wheelchair Former smoker History of edema Weakness Pressure injury of sacral region, stage 4 Pressure injury of left hip, stage 4 Pressure injury of right hip, stage 4 Pressure injury of left hip, unstageable Pressure injury of right hip, stage 2 Muscle spasm Breast cancer Urinary retention Multiple sclerosis Closed fracture of right distal femur Debility Chronic indwelling Pandey catheter Femur fracture, right History of left breast cancer Cystitis Breast cancer Multiple sclerosis Estrogen receptor positive status [ER+] Disproportion of reconstructed breast Breast cancer, left Multiple sclerosis Home Medications ?Medication ?Instructions ?Recorded ?Last Taken ?Type cholecalciferol (vitamin D3) 250 5,000 unit PO DAILY s upplement 10/09/17 06/29/22 History mcg (10,000 unit) capsule ascorbic acid (vitamin C) 1,000 mg 1 g PO DAILY Check with primary 07/12/21 06/29/22 History chewable tablet doctor zinc 50 mg capsule 50 mg PO DAILY Check with pr imary 07/12/21 06/29/22 History doctor natalizumab 300 mg/15 mL 300 mg IV QMONTH 10/02/22 Un known History intravenous solution (Tysabri) baclofen 10 mg tablet 20 mg PO Q4H 11/06/22 History methenamine hippurate 1 gram tablet 1 g PO BID 4 Unknown History Saccharomyces boulardii 250 mg 250 mg PO QDAY 05/05/24 Unknown History capsule (Daily Probiotic (S. boulardii)) botox injections for muscle 300 units subcut 05/05/24 Unknown History cranberry fruit concentrate 250 mg 250 mg PO QDAY 04/17 Unknown History chewable tablet (Azo Cranberry) dantrolene 25 mg capsule 25 mg PO .qid 05/05/24 Unkno wn History oxybutynin chloride 10 mg 10 mg PO QAM 05/05/24 Unknow n History tablet,extended release 24 hr Allergy/AdvReac Type Severity Reaction Status Date / Time clavulanic acid (From AdvReac Unknown Diarrhea Verified 10/31/24 12:51 Augmentin) Family History Aunt Breast cancer Mother Diabetes Surgical History History of colostomy History of bilateral oophorectomy S/P left mastectomy (~10/12/17) h/o tonsillectomy Social History household members: spouse Smoking Status: Former smoker alcohol intake: never ROS ROS ED Constitutional Constitutional ED: Denies chills or fever(s) Gastrointestinal Gastrointestinal: Denies abdominal pain Genitourinary Genitourinary ED: Reports other Details: Suprapubic catheter dysfunction Musculoskeletal Musculoskeletal: Reports other Details: Contracture of the lower legs Integumentary Reports other Details: Chronic pressure wounds, no acute change Neurologic Neurologic: Reports weakness and other Details: Weakness and debility associated with MS EXAM Physical Exam Const Vital Signs: 10/31/24 12:51 Temperature 97.7 F L Temperature Source Oral Pulse Rate 80 Respiratory Rate 16 Blood Pressure 116/72 Blood Pressure Mean 86 Pulse Ox 99 Oxygen Delivery Method Room Air Positive well nourished and well developed General Appearance ED: well developed and NAD HEENT Reports moist mucous membranes Resp normal respiratory effort and clear to auscultation bilaterally GI normal to inspection, nondistended, normoactive bowel sounds and soft to palpation GI Narrative: Colostomy in the left lower quadrant in place Narrative: Catheter in place, suprapubic. No drainage. No redness or irritation around the tract. Extremity Extremity Narrative: Decreased range of motion, no edema?chronic Neuro oriented x3 Neuro Narrative: Weakness/deficits associated with her MS Sensorium / Orientation: alert Psych mental status grossly normal MDM MDM MDM Narrative Medical decision making narrative: Patient evaluated for pain and difficulty with replacement of her suprapubic catheter at home. She has not had any other systemic symptoms though seems more mechanical issue. Low suspicion for acute urinary tract infection as she is not having urinary symptoms, fever or chills. The prior catheter was removed, the balloon was not inflated. Using sterile gloves 16 Uzbek catheter is placed through her suprapubic tract. It goes in easily without any pain. Clear urine starts draining immediately. 10 cc of sterile saline used to inflate the balloon. There is a 30 cc balloon however patient states she usually uses 10 cc. Patient tolerated procedure well with no obvious complications or discomfort. Will be discharged back home to follow-up outpatient with her urologist. Discharge Plan Triage Chief Complaint: Pandey C/O ED Provider: Sofia Elizondo Dx/Rx/DC Orders Clinical Impression: Neurogenic bladder, Encounter for suprapubic catheter care Prescriptions: No Action Tysabri 300 mg/15 mL solution 300 mg IV QMONTH Rx Instructions: 300 mg intravenously; once a month methenamine hippurate 1 gram tablet 1 g PO BID dantrolene 25 mg capsule 25 mg PO .qid oxybutynin chloride 10 mg tablet extended release 24hr 10 mg PO QAM Azo Cranberry 250 mg tablet,chewable 250 mg PO QDAY Saccharomyces boulardii [Daily Probiotic (S. boulardii)] 250 mg capsule 250 mg PO QDAY botox injections for muscle 300 units subcut cholecalciferol (vitamin D3) 10,000 UNIT capsule 5,000 unit PO DAILY ascorbic acid (vitamin C) 1,000 mg Tablet,Chewable 1 g PO DAILY zinc 50 mg Capsule 50 mg PO DAILY baclofen 10 mg tablet 20 mg PO Q4H Patient Comments: TAKE 1 TABLET BY MOUTHEEVERY 6 HOURS Primary Care Provider: Mario Soliz Referrals: Mario Soliz, DO [Primary Care Provider] - Activity Restrictions/Additional Instructions: Please follow-up with your urologist as needed. Return if you are having issues with your catheter draining or have further concerns. Print Language: Bulgarian Disposition Disposition: Home, Self Care
[2024-10-31 14:10] VITALS: BP 114/78; PULSE 77; RESP 16; TEMP 36.5; O2SAT 99
== END 2024-10-31 14:21 | disposition home or self-care (01) ==
PROVIDERS: Emergency Provider Emergency Medicine; PCP Family Medicine; Visit Provider Emergency Medicine
DX: Z46.6 Encounter for fitting and adjustment of urinary device (principal); Z93.3 Colostomy status; N31.9 Neuromuscular dysfunction of bladder, unspecified; Z87.891 Personal history of nicotine dependence; Z85.3 Personal history of malignant neoplasm of breast; Z90.722 Acquired absence of ovaries, bilateral; Z90.12 Acquired absence of left breast and nipple
CPT/HCPCS: 99282; A4216

== ENCOUNTER → 2024-11-07 | Outpatient (CLI) | payer MEDICARE, SELFPAY ==
[2018-02-01 11:47] VITALS: BMI 15.0
--- NOTE | 2024-11-07 11:00 | BI_ITS ---
EXAM: SCREEN MAMM (CAD) W/FREDERICK UNI R DATE: 11/07/2024 CLINICAL HISTORY: F, Age 59 y/o , SCREENING FOR BREAST CANCER Patient has a history of left breast cancer and had a prior left mastectomy in 2018. TECHNIQUE: SCREEN MAMM (CAD) W/FREDERICK UNI R COMPARISON: Prior exam(s) dated 11/05/2023, 09/29/2022 and 07/10/2021. FINDINGS: TISSUE DENSITY: The breasts are heterogeneously dense, which may obscure small masses. Bilateral Breast Mammographic Findings: A 7 mm density in the medial, middle 3rd aspect of the right breast is noted. This appears to be located between the 8 o'clock and 10 o'clock position on the frederick images. Further workup is indicated. Benign-appearing round microcalcifications are seen in the right breast. A benign macrocalcification is seen in the right breast. BI/SCREEN MAMM (CAD) W/FREDERICK UNI R IMPRESSION: A 7 mm density in the medial, middle 3rd aspect of the right breast is noted. T his appears to be located between the 8 o'clock and 10 o'clock position on the frederick images. Further workup is indicated. Patient return for a rolled CC view and an LM view of the right breast as well as spot compression CC view of the right breast density. An ultrasound will also most likely needed. OVERALL FINAL ASSESSMENT BI-RADS 0: INCOMPLETE - NEED ADDITIONAL IMAGING EVALUATION. RECOMMENDATION: Additional Views obtained/call backs A letter with findings and recommendations will be mailed to the patient. Reading Location: [id number]
== END | disposition home or self-care (01) ==
LOC: OPBI 10:55
PROVIDERS: PCP Family Medicine; Referring Provider Nurse Practitioner Family; Visit Provider Nurse Practitioner Family
DX: Z12.31 Encounter for screening mammogram for malignant neoplasm of breast (principal); Z85.3 Personal history of malignant neoplasm of breast; Z90.12 Acquired absence of left breast and nipple
CPT/HCPCS: 77063; 77067

== ENCOUNTER → 2024-11-10 | Outpatient (CLI) | payer MEDICARE, SELFPAY ==
[2018-02-01 11:47] VITALS: BMI 15.0
--- NOTE | 2024-11-10 09:24 | BI_ITS ---
EXAM: DIAG MAMM W/CAD, UNILAT 11/10/2024 CLINICAL HISTORY: F, Age 59 y/o , ABN MAMM TECHNIQUE: DIAG MAMM W/CAD, UNILAT.. Compression spot views and 90 degree lateral view obtained for further evaluation. COMPARISON: Prior exam(s) dated November 08, 1999 25.. FINDINGS: TISSUE DENSITY: The breasts are heterogeneously dense, which may obscure small masses. Bilateral Breast Mammographic Findings: Persistent 7 mm density seen in the medial middle 3rd of the right breast. Sonographic correlation recommended. BI/DIAG MAMM W/CAD, UNILAT IMPRESSION: Persistent 7 mm density as described. OVERALL FINAL ASSESSMENT BI-RADS 0: INCOMPLETE - NEED ADDITIONAL IMAGING EVALUATION. RECOMMENDATION: Ultrasound Recommended A letter with findings and recommendations will be mailed to the patient. Reading Location: [id number]
--- NOTE | 2024-11-10 09:24 | US_ITS ---
PROCEDURE: BREAST LIMITED UNILATERAL 11/10/2024 REASON FOR EXAM: F, Age 59 y/o , ABN MAMM COMPARISON: Prior diagnostic mammogram done earlier in the day.. TECHNIQUE: BREAST LIMITED UNILATERAL FINDINGS: Dense fibroglandular tissue. The lateral midportion of the right breast was examined with ultrasound. There is a 3 mm x 3 mm x 2 mm cyst at the 9 o'clock position of the breast at 4 cm from the nipple. Adjacent to this, there is a similar 3 mm x 3 mm x 2 mm cyst. US/Breast Limited Unilateral IMPRESSION: The mammographic abnormality corresponds to 2, adjacent 3 mm x 3 mm x 2 mm cyst s. BI-RADS 2: BENIGN RECOMMENDATION: Routine annual follow-up in 1 Year Reading Location: [id number]
== END | disposition home or self-care (01) ==
LOC: OPBI 09:22
PROVIDERS: PCP Family Medicine; Referring Provider Nurse Practitioner Family; Visit Provider Nurse Practitioner Family
DX: R92.8 Other abnormal and inconclusive findings on diagnostic imaging of breast (principal); N60.01 Solitary cyst of right breast
CPT/HCPCS: 76642; 77061; 77065; G0279

== ENCOUNTER → 2024-11-17 | Outpatient (CLI) | payer MEDICARE, SELFPAY ==
[2018-02-01 11:47] VITALS: BMI 15.0
[2024-11-17 15:08] LABS: Color, Urine Yellow (Yellow); Glucose, Dipstick Normal (Normal); Ketone-Dipstick Negative (Negative); Leukocyte Esterase-Dipstick 500 /ul (Negative); Nitrite-Dipstick Positive (Negative); Occult Blood-Urine 25 /ul (Negative); Protein-Dipstick 15 mg/dl (Negative); Specific Gravity, Urine 1.015 (1.002-1.030); Urine Bilirubin Dipstick Negative (Negative)
[2024-11-17 15:17] LABS: Hematocrit 42.9 % (37-47); Hemoglobin 14.3 g/dL (12.0-15.0); Immature Granulocytes Count 0.010 X10^3/uL (0.0-0.0); Mean Corp Hgb Conc 33.3 g/dL (32-36); Mean Corpuscular Volume 94.7 fL (81-99); Mean Platelet Vol. 12.7 fl (6.2-12.0); NRBC Flagged by Analyzer 0.3 % (0-5); Platelet Count 238 K/mm3 (150-450); RBC Distribution Width CV 13.8 % (11.6-14.6); RBC Distribution Width SD 48.4 fl (35.1-43.9); Red Blood Count 4.53 M/mm3 (4.2-5.4); White Blood Count 7.6 K/mm3 (4.4-11.0)
[2024-11-17 15:53] LABS: AST(SGOT) 24 U/L (<=31); Alanine Aminotransfer ALT/SGPT 31 U/L (<=34); Albumin, Serum 4.4 g/dL (3.5-5.0); Alkaline Phosphatase 88 U/L (35-104); Anion Gap 12 (5-15); BUN 13 mg/dL (4-19); BUN/Creat Ratio 29.7 RATIO (10-20); Calcium,Total 10.1 mg/dL (7.6-11.0); Carbon Dioxide 24.5 mmol/L (21.0-32.0); Chloride 103 mmol/L (98-108); Cholesterol 171 mg/dL (<=200); Globulin 3.0 g/dL (2.2-4.2); Glucose 86 mg/dL (70-99); Low Density Lipoprotein Calc. 89 mg/dL; Potassium 4.0 mmol/L (3.3-5.1); Triglycerides 81 mg/dL; Very Low Density Lipoprotein 16 mg/dL (5-40); Vitamin B12 1333 pg/mL (180-914); cholesterol:hdl ratio screen 2.61
== END | disposition home or self-care (01) ==
LOC: BFHLAB 11:49
PROVIDERS: PCP Family Medicine
DX: Z79.899 Other long term (current) drug therapy (principal); Z51.81 Encounter for therapeutic drug level monitoring; R79.89 Other specified abnormal findings of blood chemistry; N39.0 Urinary tract infection, site not specified
CPT/HCPCS: 36415; 80053; 80061; 81002; 82607; 85025; 87086; 87088

== ENCOUNTER → 2024-12-06 | Outpatient (CLI) | payer MEDICARE, SELFPAY ==
[2018-02-01 11:47] VITALS: BMI 15.0
--- NOTE | 2024-12-06 08:52 | BD_ITS ---
PROCEDURE: DEXA BONE DENSITY STUDY 12/06/2024 REASON FOR EXAM: F, age 59 y/o . TECHNIQUE: Procedure Code: BDDBD Modality: DX Procedure: DEXA BONE DENSITY STUDY COMPARISON: None. FINDINGS: BMD and T-SCORES Lumbar spine: 0.753 g/cm2, T-score -2.6 Levels: L1 through L4 Right femoral neck: 0.412 g/cm2, T-score -3.9 Right total hip: 0.612 g/cm2, T-score -2.7 The World Health Organization has defined the following categories based on bone density: Normal bone density: T-score equal to or greater than -1.0 Osteopenia: T-score between -1.0 and -2.5 Osteoporosis: T-score equal to or less than -2.5 FRAX (or Comparable) Fracture Risk Assessment: 10 Year Probability of Fracture: Major Osteoporotic Fracture: 30% Hip Fracture: 14% (Note: FRAX is not to be reported in setting of normal range bone density, osteoporosis on DEXA, known history of osteoporosis, prior osteoporotic hip or vertebral fracture, or for any patient undergoing pharmacological treatment for bone loss.) The National Osteoporosis Foundation (NOF) recommends pharmacological treatment for patients with a FRAX 10-year risk of 3% or higher for a hip fracture, or 20% or higher for a major osteoporotic fracture, to prevent osteoporosis and reduce fracture risk. The patient does meet the pharmacological treatment recommendations for prevention of osteoporosis. BD/Dexa Bone Density Study IMPRESSION: OSTEOPOROSIS, of the lumbar spine and right hip. Recommend follow-up as clinically warranted. Reading Location: [id number]
== END | disposition home or self-care (01) ==
LOC: OPBD 08:51
PROVIDERS: PCP Family Medicine; Referring Provider Family Medicine; Visit Provider Family Medicine
DX: Z13.820 Encounter for screening for osteoporosis (principal); M81.0 Age-related osteoporosis without current pathological fracture
CPT/HCPCS: 77080

== ENCOUNTER → 2025-02-24 | Outpatient (CLI) | payer MEDICARE, SELFPAY ==
[2018-02-01 11:47] VITALS: BMI 15.0
--- NOTE | 2025-02-24 11:04 | MRI_ITS ---
PROCEDURE: UPPER EXT JOINT ONLY(ROUTINE) 02/24/2025 REASON FOR EXAM: PAIN, STIFFNESS, PRIOR INJURY, MS TECHNIQUE: Procedure Code: MRIUEJ Modality: MR Procedure: UPPER EXT JOINT ONLY(ROUTINE) Multiplanar and multisequence images were obtained without IV contrast administration. COMPARISON: none FINDINGS: The supraspinatus tendon shows intrasubstance high signal abutting its articular surface suggesting partial thickness tear. No evidence of complete fibers interruption. Thickening and intrasubstance high signal of the infraspinatus tendon suggesting tendonitis with intramuscular edema and feathery appearance of its muscle belly. No evidence of complete fibers interruption. Intrasubstance high signal of the infraspinatus tendon suggesting tendinosis with no evidence of complete fibers interruption. The teres minor tendon appears intact. High signal of the intra-articular segment of the long head of biceps tendon suggesting tendonitis. Fluid signal distending its sheath. Attenuated anterior labrum showing high signal. Degenerative arthropathic changes of the acromioclavicular joint evident by marginal osteophytic lipping and cortical irregularities of its opposing articular surfaces with hypertrophied joint capsule inducing subacromial impingement. Intact glenohumeral joint. Mild glenohumeral joint effusion Fluid signal distending the subacromial/subdeltoid bursa. No marrow infiltrative lesions. The neurovascular bundles appear unremarkable. MRI/Upper Ext Joint Only(Routine) IMPRESSION: Degenerative arthropathic changes of the acromioclavicular joint with subacromi al impingement. Supraspinatus tendonitis with partial thickness tear. Infraspinatus tendonitis with grade I strain of its muscle belly. Subscapularis tendinosis. Tendonitis of the long head of biceps tendon. Mild glenohumeral joint effusion with small subacromial/subdeltoid bursitis. Injured anterior glenoid labrum. Reading [facility]
== END | disposition home or self-care (01) ==
LOC: OPMRI 10:56
PROVIDERS: PCP Family Medicine; Referring Provider Orthopaedic Surgery Sports Medicine; Visit Provider Orthopaedic Surgery Sports Medicine
DX: M19.011 Primary osteoarthritis, right shoulder (principal); M25.511 Pain in right shoulder
CPT/HCPCS: 73221